=== PATIENT | female | born 1945 | race Caucasian/White ===

== ENCOUNTER 2020-01-04 10:26 | Emergency (ER) | payer MEDICARE, SELFPAY ==
[2020-01-04] VITALS (28 sets, daily range): BP systolic 150–190; BP diastolic 62–77; PULSE 57–74; RESP 11–21; TEMP 36.8; O2SAT 91–100
--- NOTE | ~2020-01-04 | CT_ITS ---
EXAMINATION: CT brain wo con EXAM DATE: 01/04/2020 11:31 INDICATION: Slurred speech, facial droop. TECHNIQUE: Spiral CT of the head was performed without contrast. Axial, coronal and sagittal images were reviewed. The dose-length product (DLP) for this examination was 605.33 mGy-cm. The exposure w as tailored according to patient size, and iterative reconstruction (ASIR) was used as additional dos e reduction technique. Comparison is made to prior examination from 08/11/2015. FINDINGS: There is acute hemorrhage in the left basal ganglia measuring 2 x 4 cm. Some mass effect on the left lateral ventricle. Otherwise no evidence of intraparenchymal brain mass lesion. No evidenc e of acute ischemic infarction. Please note that initial head CT has limited sensitivity for small o r acute infarctions. There is mild periventricular and subcortical hypodensity, nonspecific but proba casey related to small vessel ischemic disease. There is mild prominence of the sulci and ventricles related to cerebral atrophy. There is intracranial carotid arteriosclerosis. There are no extra-ax ial collections. There is no mass effect or midline shift. Patient has had ocular lens surgery. So ft tissue is unremarkable. The visualized sinuses and mastoid air cells are well aerated. IMPRESSION: 1. Sizable left thalamic acute hemorrhage. 2. Chronic age related findings. As per stroke protocol, I called these results to emergency room, discussed with Gifty Leonard MD at 01/04/2020 11:33 TAXICAB DISPATCHER. Reviewed, dictated and finalized at location A. CAB DISPATCHER IMPRESSION: 1. Sizable left thalamic acute hemorrhage. 2. Chronic age related findings. As per stroke protocol, I called these results to emergency room, discussed wit h Gifty Leonard MD at 01/04/2020 11:33 TAXICAB DISPATCHER.
--- NOTE | 2020-01-04 10:35 | ECG_ITS ---
Measurements Intervals [place] Rate: 72 P: 47 MS: 185 QRS: -87 QRSD: 149 T: 48 QT: 439 QTc: 480 Interpretive Statements SINUS RHYTHM POSSIBLE LEFT ATRIAL ENLARGEMENT RIGHT BUNDLE BRANCH BLOCK INFERIOR INFARCT, AGE INDETERMINATE ABNORMAL ECG Electronically Signed On 01-04-2020 15:35:29 EDGE RUNNER by George Moyer D.O.
--- NOTE | 2020-01-04 11:09 | ED.NEUROSD ---
HPI - Neuro Symptoms/Deficit General Chief Complaint: Neuro Symptoms/Deficit Stated Complaint: fall Time Seen by Provider: 01/04/20 10:48 Source: patient and RN notes reviewed Mode of arrival: ambulatory Limitations: no limitations History of Present Illness HPI Narrative: Pt is a 74 y/o female who presents to the ED with c/o neurological deficits. Pt's son states the pt was found on the floor when the pt's kxwnobjc-qh-eio came to drop something off to the pt's house. The pt's gmcuwfwg-ly-[id number] states the pt was at baseline when she came earlier in the morning. However, checking in on the pt the second time was when she noticed the pt was not at baseline. The pt was found on the floor and was experiencing changes in her speech, slurred speech. The pt reports tenderness to her RLE since 2200 last night and SOB, but denies any tongue edema. The pt is currently on the medication Lisinopril. Onset (ago): unknown Timing confirmed by: family member ([id number]; son) Location: speech (slurred speech) History of same: No Quality: constant Relieving factors: none Exacerbating factors: none Context: found down (found on the floor) Associated symptoms: shortness of breath and other (tenderness to her RLE) Related Data Home Medications Medication Instructions Recorded Confirmed alprazolam 0.25 mg tablet 0.25 mg PO BID 10/24/19 10/24/19 amlodipine 10 mg tablet 10 mg PO DAILY 10/24/19 10/24/19 diclofenac potassium 25 mg capsule 25 mg PO QID 10/24/19 10/24/19 docusate sodium 100 mg capsule 100 mg PO DAILY 10/24/19 10/24/19 duloxetine 30 mg capsule,delayed 30 mg PO DAILY 10/24/19 10/24/19 release haloperidol 2 mg tablet 2 mg PO DAILY 10/24/19 10/24/19 lamotrigine 200 mg tablet 200 mg PO DAILY 10/24/19 10/24/19 lisinopril 20 mg tablet 20 mg PO DAILY 10/24/19 10/24/19 trazodone 100 mg tablet 50 mg PO DAILY tablet 10/24/19 10/24/19 alprazolam 01/04/20 asenapine maleate [Saphris] mg SUBLINGUAL 01/04/20 asenapine maleate [Saphris] mg SUBLINGUAL 01/04/20 duloxetine mg PO 01/04/20 escitalopram oxalate mg 01/04/20 gabapentin 01/04/20 lisinopril 01/04/20 pantoprazole PO 01/04/20 trazodone 01/04/20 Allergies Allergy/AdvReac Type Severity Reaction Status Date / Time alendronate sodium Allergy Unknown Unknown Verified 01/04/20 10:40 amantadine Allergy Unknown Unknown Verified 01/04/20 10:40 benztropine Allergy Unknown Unknown Verified 01/04/20 10:40 chlorpromazine Allergy Unknown Unknown Verified 01/04/20 10:40 levofloxacin Allergy Unknown Unknown Verified 01/04/20 10:40 Macrolide Antibiotics Allergy Unknown UNKNOWN Verified 01/04/20 10:40 REACTION mirtazapine Allergy Unknown Unknown Verified 01/04/20 10:40 Quinolones Allergy Unknown Unknown Verified 01/04/20 10:40 quinalones Allergy Unknown Unknown Uncoded 01/04/20 10:40 Review of Systems Review of Systems: All systems reviewed & are unremarkable except as noted in HPI and below ENT: Denies other (tongue swelling) Respiratory: Respiratory: Reports dyspnea Musculoskeletal: Musculoskeletal: Reports other (tenderness to RLE) Neurologic: Reports Abnormal speech present (slurred speech) [facility] Past Medical History Medical History (Updated 01/04/20 @ 14:03 by Gifty Leonard MD) Anxiety Depression GERD (gastroesophageal reflux disease) Hypertension Type 2 diabetes mellitus with hyperglycemia Social History Social History Smoking status: Former smoker Smoking end date: 11/30/15 Alcohol intake: never Gender identity (if verbalized by the patient): Female Comments PCP: Dr. Alcocer Exam Const: General: cooperative, no acute distress and alert Nutritional Appearance: well nourished Orientation/consciousness: patient oriented x3 Limitations: no limitations HENMT: Mouth: Yes lip normal and Yes moist mucous membranes Eyes: Pupils: Equal, round and reactive pupils present EOM: EOMs intact trev
[2020-01-04 11:19] LABS: Glucose Point of Care 139 (65-105)
[2020-01-04 11:24] LABS: Glucose Point of Care 147 (65-105)
[2020-01-04] MEDS: LABETALOL HCL INJ 100 MG/20 ML VIAL 10 MG IV PUSH (11:53)
[2020-01-04 11:58] LABS: Basophils Absolute Auto 0.1 K/mm3 (0.0-0.1); Basophils Percent Auto 0.7 % (0.2-1.2); Eosinophils Absolute Auto 0.1 K/mm3 (0-0.3); Eosinophils Percent Auto 1.4 % (0-4.4); Hematocrit 44.7 % (37.0-47.0); Hemoglobin 14.1 g/dL (12.0-15.0); Immature Granulocyte Absolute 0.03 K/mm3 (0.00-0.031); Immature Granulocyte Percent A 0.4 % (0-0.5); Lymphocytes Absolute Auto 1.29 K/mm3 (0.9-3.2); Mean Corpuscular HGB Conc 31.5 g/dl (32-36); Mean Platelet Volume 10.5 fl (7.4-10.4); Monocytes Absolute Auto 0.3 K/mm3 (0.1-0.6); Monocytes Percent Auto 4.5 % (2.6-8.5); Neutrophils Absolute Auto 5.4 K/mm3 (1.3-6.7); Platelet Count Result 182 k/mm3 (150-375); Red Blood Count 4.86 M/mm3 (4.2-5.4); Red Cell Distribution Width 14.1 % (11.5-14.5); White Blood Count 7.2 K/mm3 (4.5-10.0)
[2020-01-04 12:08] LABS: INR 1.1; Prothrombin Time 13.4 Seconds (11.1-14.7)
[2020-01-04 12:09] LABS: Partial Thromboplastin Time 33.1 SECONDS (22.3-36.8)
[2020-01-04 12:11] LABS: Creatine Kinase 242 U/L (30-135); Phosphorus 3.2 mg/dL (2.5-4.5)
[2020-01-04 12:12] LABS: Alanine Aminotransferase 27 U/L (4-35); Albumin Level 4.3 g/dL (3.5-5.1); Alkaline Phosphatase 344 U/L (38-126); Aspartate Amino Transferase 53 U/L (14-36); Bilirubin,Total 0.6 mg/dL (0.2-1.3); Blood Urea Nitrogen 20 mg/dL (7-17); Calcium 9.8 mg/dL (8.4-10.2); Carbon Dioxide 25 mmol/L (22-30); Chloride 105 mmol/L (98-107); Estimated Glomerular Filt Rate 34; Glucose 152 mg/dL (65-105); Potassium 4.6 mmol/L (3.4-5.0); Sodium 140 mmol/L (137-145)
[2020-01-04 13:34] LABS: Add Urine Microscopic? YES; Appearance Urine Clear (Clear); Bacteria Urine Trace /hpf; Bilirubin Urine Negative (Negative); Blood Urine Negative (Negative); Color Urine Yellow (Yellow); Glucose Urine UA 1+ mg/dL (Negative); Ketones Urine Negative (Negative); Leukocyte Esterase Ur Negative LEU/UL (Negative); Mucus Urine Rare /lpf; Nitrate Urine Negative (Negative); Protein Urine 2+ mg/dL (Negative); RBC Urine 0-2 /hpf (0-2); Urobilinogen Urine Negative mg/dL (<2.0)
--- NOTE | 2020-01-04 13:40 | PC.NURSE ---
[facility] declined transfer [facility] accepted ETA 1430 Trip # [id number]
== END 2020-01-04 14:22 | disposition short-term general hospital (02) ==
PROVIDERS: Emergency Provider Emergency Medicine; PCP Internal Medicine
DX: F41.9 Anxiety disorder, unspecified (principal); F32.9 Major depressive disorder, single episode, unspecified; K21.9 Gastro-esophageal reflux disease without esophagitis; I10 Essential (primary) hypertension; Z87.891 Personal history of nicotine dependence; E11.65 Type 2 diabetes mellitus with hyperglycemia; R94.31 Abnormal electrocardiogram [ECG] [EKG]; M79.604 Pain in right leg
CPT/HCPCS: 36415; 51701; 70450; 80053; 81001; 82550; 82948; 83735; 84100; 85025; 85610; 85730; 93005; 96374; 99285

== ENCOUNTER 2020-01-11 11:02 | IRF | payer MEDICARE, SELFPAY ==
--- NOTE | ~2020-01-11 | XR_ITS ---
EXAMINATION: XR barium swallow modified DATE: 01/13/2020 09:37 INDICATION: Dysphagia. TECHNIQUE: The patient was given barium-containing material of multiple consistencies to swallow by t isrrael speech pathologist while I performed fluoroscopy. Fluoroscopy exposure time was 1.8 minutes. The n umber of fluoroscopy images saved to the PACS was 1. Dose-area product was 1.155 Gy-cm^2. FINDINGS: There was aspiration of thin liquids, which elicited a cough. IMPRESSION: 1. Aspiration of thin liquids. 2. Please refer to the speech therapy report for recommendations. Reviewed, dictated and finalized at location A. PULLER
[2020-01-11 11:09] VITALS: BP 142/47; PULSE 61; RESP 18; TEMP 36.7; O2SAT 95
--- NOTE | 2020-01-11 11:32 | ADMGEN ---
This patient, Nisha Sigala, was admitted to [facility] Room 225-02. Patient/family oriented to hospital policies and general routines including ID bracelet, bed and alarms, visiting hours, pain management, procedures, bathroom and other care routines, personal items, smoking policy, room service/diet, and visiting hours. Valuables list has been completed. Information on how to activate the Rapid Response Team has been discussed. Patient/Family are encouraged to report perceived risks to care and to ask questions if they do not understand what they are told or what they should do.
[2020-01-11 12:14] LABS: Glucose Point of Care 126 (65-105)
[2020-01-11 14:00] VITALS: BP 147/52; PULSE 61; RESP 18; TEMP 36.4; O2SAT 98
[2020-01-11 16:52] LABS: Glucose Point of Care 87 (65-105)
[2020-01-11] MEDS: LORAZEPAM 0.5 MG TABLET PO (17:48)
[2020-01-11] MEDS: GABAPENTIN 300 MG CAPSULE 600 MG PO (17:48)
[2020-01-11 17:59] VITALS: PULSE 61; RESP 18; O2SAT 98
[2020-01-11] MEDS: DOCUSATE SODIUM 100 MG CAPSULE PO (21:43)
[2020-01-11] MEDS: lamoTRIgine 100 MG TABLET PO (21:51)
[2020-01-11] MEDS: lamoTRIgine 25 MG TABLET 50 MG PO (21:52)
[2020-01-11] MEDS: TRAZODONE HCL 50 MG TABLET 100 MG PO (21:55)
[2020-01-11 22:00] VITALS: BP 153/56; PULSE 76; RESP 18; TEMP 36.6; O2SAT 100
[2020-01-11] MEDS: INSULIN GLARGINE (*BKC) 100 UNITS/ML 20 UNITS SUB-Q (22:00)
[2020-01-11 22:34] LABS: Glucose Point of Care 120 (65-105)
[2020-01-12 05:14] LABS: Basophils Absolute Auto 0.1 K/mm3 (0.0-0.1); Basophils Percent Auto 0.7 % (0.2-1.2); Eosinophils Absolute Auto 0.3 K/mm3 (0-0.3); Eosinophils Percent Auto 3.9 % (0-4.4); Hematocrit 38.4 % (37.0-47.0); Hemoglobin 12.3 g/dL (12.0-15.0); Immature Granulocyte Absolute 0.02 K/mm3 (0.00-0.031); Immature Granulocyte Percent A 0.3 % (0-0.5); Lymphocytes Absolute Auto 2.57 K/mm3 (0.9-3.2); Lymphocytes Percent Auto 34.9 % (18.3-44.2); Mean Corpuscular Hemoglobin 28.9 pg (26-34); Mean Corpuscular Volume 90.4 fl (80-100); Mean Platelet Volume 10.5 fl (7.4-10.4); Monocytes Absolute Auto 0.4 K/mm3 (0.1-0.6); Monocytes Percent Auto 5.2 % (2.6-8.5); Neutrophils Absolute Auto 4.1 K/mm3 (1.3-6.7); Platelet Count Result 184 k/mm3 (150-375); Red Blood Count 4.25 M/mm3 (4.2-5.4); Red Cell Distribution Width 14.3 % (11.5-14.5); White Blood Count 7.4 K/mm3 (4.5-10.0)
[2020-01-12 05:26] LABS: Blood Urea Nitrogen 16 mg/dL (7-17); Calcium 9.1 mg/dL (8.4-10.2); Carbon Dioxide 21 mmol/L (22-30); Chloride 104 mmol/L (98-107); Cholesterol 130 mg/dL (0-200); Estimated Glomerular Filt Rate 29; Glucose 95 mg/dL (65-105); HDL Direct 52 mg/dL; Potassium 4.3 mmol/L (3.4-5.0); Sodium 139 mmol/L (137-145); Triglycerides 145 mg/dL (<150)
[2020-01-12 05:38] LABS: LDL Cholesterol Direct 44 mg/dL
[2020-01-12 06:00] VITALS: BP 131/49; PULSE 58; RESP 17; TEMP 37.1; O2SAT 95
[2020-01-12] MEDS: LEVOTHYROXINE SODIUM 125 MCG TABLET PO (06:31)
[2020-01-12 07:14] LABS: Glucose Point of Care 101 (65-105)
[2020-01-12] MEDS: AMLODIPINE BESYLATE 5 MG TABLET 10 MG PO (09:58)
[2020-01-12] MEDS: CHOLECALCIFEROL 1,000 UNIT TABLET 2000 UNITS PO (09:58)
[2020-01-12] MEDS: FERROUS SULFATE 324 MG TABLET PO (09:59)
[2020-01-12] MEDS: DOCUSATE SODIUM 100 MG CAPSULE PO ×2 (09:59→22:05)
[2020-01-12] MEDS: lamoTRIgine 100 MG TABLET PO ×2 (09:59→22:07)
[2020-01-12] MEDS: GABAPENTIN 300 MG CAPSULE 600 MG PO ×2 (09:59→18:41)
[2020-01-12] MEDS: PANTOPRAZOLE 40 MG TABLET PO (10:00)
[2020-01-12] MEDS: lamoTRIgine 25 MG TABLET 50 MG PO ×2 (10:00→22:07)
[2020-01-12] MEDS: lisinopriL 10 MG TABLET PO (10:00)
[2020-01-12] MEDS: LORAZEPAM 0.5 MG TABLET PO ×3 (10:02→18:41)
--- NOTE | 2020-01-12 10:45 | WPDREHABHP ---
H&P: HPI History of Present Illness Chief complaint: L Basal Ganglia [facility] Narrative: Nisha Sigala is a 74 year old female HISTORY OF PRESENT ILLNESS: The patient's primary rehab impairment category is 0 3-brain dysfunction-nontraumatic The etiologic diagnosis is left basal ganglia intraparenchymal hemorrhage I saw this patient [id number] on January 11, 2020 at 10:45 a.m. The patient is a 74-year-old right-handed woman with a past medical history of hypertension, hyperlipidemia, type 2 diabetes mellitus, hypothyroidism and mood disorder who present to [facility] on January 04, 2020 as a direct admission from [facility]. Around 8:45 a.m. on January 04, 2020 the patient's [id number]-bz-chb was talking to her on phone when she noticed the patient had slurring of the speech. Inwgbfdk-qi-[id number] arrived at the patient's house between 930 and 10:00 a.m. which she found her on the floor with slowing of the speech. Patient reported falling and an inability to get up. EMS was called and she was transported to [facility]. Head CT demonstrated a left basal ganglia hemorrhage ( apparently 2 x 4 centimeter close) with mass effect on the left ventricle, mild cerebral edema and brain compression. She was transferred to [facility] for further care. CT a on January 05 demonstrated stable hemorrhage and no vascular abnormality. Neurology was consulted and felt the hemorrhage was secondary to hypertensive emergency. Anticoagulation is being held in the setting of the hemorrhage. Psychiatry was consulted for assistance with the patient's complex medical regimen for her underlying mood disorder. They noted that the patient has never had suicidal ideation or tandem to harm herself. She has had no significant episodes of depression since 2014. In combination with her outpatient psychiatrist new changes are as follows, continued trazodone, hold Sapharis 5 milligram/ 10 milligram, hold alprazolam, he site a prime, duloxetine, and stop Haldol for the duration of the current hospitalization and continue with Ativan in the meantime and down titrate Lamictal 250 milligram twice a day. She has had no psychological changes and is awake and alert oriented x4 hospitalization significant for neuropathy for which her home dose of gabapentin was resumed. Acute pain treated with oral p.r.n. med pain medication, hypertension ( p.r.n. hydralazine and labetalol ), acute kidney injury ( resolving with IV fluid for hydration close), type 2 diabetes mellitus managed with Lantus and Humalog, and hypothyroidism on home dose of Synthroid. Physical examination continues to reveal right lower extremity numbness dysarthria right facial droop decreased gross motor control and decrease safety awareness DP DVT prophylaxis with Lovenox. Therapy was Therapy was initiated at the acute care facility and the patient transferred to us from [facility] on January 10, 2020 FALLS OR SURGERIES: The patient has had no major surgeries in the 100 days prior to admission. They had no falls in the past year. They had no falls with injury in the past year. PAST MEDICAL HISTORY: bipolar disorder, colon polyps, gastroesophageal reflux disease, hypertension, hypothyroidism, is stroke, type 2 diabetes mellitus. PAST SURGICAL HISTORY: and hysterectomy SOCIAL HISTORY: the patient lives independently in a 1 level apartment with level in tree. She was completely independent with ADLs, functional transfers and mobility prior with no assistive device. 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 She does report falls in the past year but no major surgeries FAMILY HISTORY: patient is a relatively at best fair historian and does not recall any family history of all consequence PRIOR LEVEL OF FUNCTION: Eating was INDEPENDENT Oral Care was
[2020-01-12 12:30] LABS: Glucose Point of Care 101 (65-105)
[2020-01-12 13:16] VITALS: BMI 30.4
[2020-01-12 14:00] VITALS: BP 143/45; PULSE 52; RESP 16; TEMP 37.1; O2SAT 99
--- NOTE | 2020-01-12 14:41 | PCSTNOTE ---
Patient reports she was on a thickened diet with minced and moist solids prior to admit. Nursing notified that current diet orders should be updated to reflect a minced and moist diet with mildly thick liquids. Orders for a MBS will be obtained if MD is agreeable.
--- NOTE | 2020-01-12 14:44 | PCNSR ---
On 01/12/20, the student, Dorys Roy, provided care and completed [facility] documentation on this patient. I have reviewed the student's documentation and agree with the findings.
--- NOTE | 2020-01-12 15:46 | PCCCNOTE ---
On 01/12/20, the student, [Bora Santos ], provided care and completed [facility] documentation on this patient. I have reviewed the student's documentation and agree with the findings.
[2020-01-12 17:15] LABS: Glucose Point of Care 116 (65-105)
--- NOTE | 2020-01-12 19:24 | PHAR ---
HOME MEDICATIONS VERIFIED BY PHARMACY: SAPHRIS 5MG SL TABLETS
[2020-01-12 20:46] LABS: Glucose Point of Care 133 (65-105)
[2020-01-12 22:00] VITALS: BP 150/44; PULSE 56; RESP 18; TEMP 36.5; O2SAT 97
[2020-01-12] MEDS: TRAZODONE HCL 50 MG TABLET 100 MG PO (22:00)
[2020-01-12] MEDS: INSULIN GLARGINE (*BKC) 100 UNITS/ML 20 UNITS SUB-Q (22:09)
[2020-01-13] MEDS: LEVOTHYROXINE SODIUM 125 MCG TABLET PO (07:13)
[2020-01-13 07:40] LABS: Glucose Point of Care 108 (65-105)
[2020-01-13 09:50] VITALS: BP 159/48; PULSE 58; RESP 18; TEMP 36.6; O2SAT 100
[2020-01-13] MEDS: CHOLECALCIFEROL 1,000 UNIT TABLET 2000 UNITS PO (09:53)
[2020-01-13] MEDS: AMLODIPINE BESYLATE 5 MG TABLET 10 MG PO (09:53)
[2020-01-13] MEDS: DOCUSATE SODIUM 100 MG CAPSULE PO ×2 (09:54→20:29)
[2020-01-13] MEDS: GABAPENTIN 300 MG CAPSULE 600 MG PO ×2 (09:54→18:01)
[2020-01-13] MEDS: FERROUS SULFATE 324 MG TABLET PO (09:54)
[2020-01-13] MEDS: lamoTRIgine 25 MG TABLET 50 MG PO ×2 (09:56→20:29)
[2020-01-13] MEDS: lamoTRIgine 100 MG TABLET PO ×2 (09:56→20:29)
--- NOTE | 2020-01-13 09:56 | PCSTNOTE ---
Please refer to the Modified Barium Swallow Evaluation in the EMR.
[2020-01-13] MEDS: lisinopriL 10 MG TABLET PO (09:57)
[2020-01-13] MEDS: PANTOPRAZOLE 40 MG TABLET PO (09:57)
[2020-01-13] MEDS: LORAZEPAM 0.5 MG TABLET PO ×3 (09:59→18:09)
--- NOTE | 2020-01-13 11:11 | RPD ---
INDIVIDUALIZED PLAN OF CARE FOR Nisha Sigala Brief Synthesis of Pre-Admission Screen, Post-Admission Evaluation and Therapy Evaluations: The patient presents to rehab with Left basal ganglia intraparenchymal hemorrhage. Comorbidities include hypertensive emergency, bipolar disorder, gastroesophageal reflux disease, hypothyroidism, type 2 diabetes mellitus, acute kidney injury, neuropathy, acute pain, dysarthria, dysphagia, right lower extremity weakness, right facial droop. The patient requires physician services for neurology services, medical oversight, and coordination of care. The patient needs physician monitoring and treatment of hypertension, monitoring for adverse reactions to new medications and medication changes, monitoring for infection, and pain control. The patient requires nursing services for frequent neuro checks, anticoagulation therapy, medication management and education, pressure relief and skin care management, monitoring of labs, diabetes management and education, and fall/safety precautions. Deficits include:ADLs, Balance, Endurance, Mobility, Pain Management, ROM, Safety, Speech, Strength, Swallowing, Transfers Studio Grip/Case Management for: Discharge Planning and Patient/Family Counseling Physical Therapy: 5 days per week for 75 minutes. Treatments may include: Therapeutic Exercise, Gait Training, Neuromuscular Re-education, Transfer Training, Community Reintegration, Bed Mobility, Patient/Family Education, Wheelchair Mobility Group Therapy/Concurrent Therapy Rationales: -Improve attention span during functional activities in a distracted environment. -Enhance problem solving and/or adequate judgment skills during functional activities in a distracted environment. -Promote increased safety awareness in a distracted environment to reduce fall risk with functional tasks, transfers, and ambulation to allow a more safe, self-sufficient return to the home environment. -Improve dynamic balance skills to promote safety and independence with functional activities in a distracted environment for maximum gain. Occupational Therapy: 5 days per week for 75 minutes. Treatments may include: Therapeutic Exercise, Therapeutic Activity, Cognitive Training, Self-Care Transfer Training, Community Reintegration, Home Management, Patient/Family Education, Wheelchair Mobility Training, Energy Conservation Training Group Therapy/Concurrent Therapy Rationales: -Allow therapist to observe and teach generalization and carry-over of skills learned in individual therapy. -Enhance problem solving and sequencing skills during therapeutic activities in a distracted environment. -Promote increased safety awareness in a realistic setting to reduce fall risk with functional tasks due to visual and verbal distractions. -Increase functional level with ADLs, ADL transfers and use of adaptive equipment through therapeutic activities with others while promoting safety to allow a more safe, self-sufficient return home. Speech Therapy: 5 days per week for 30 minutes. Treatments may include: Dysphasia Therapy, Speech/Language/Communication Therapy, Cognitive Training, Patient/Family Education Group Therapy/Concurrent Therapy - Rationale: -Allow therapist to observe and teach generalization and carry-over of skills learned in individual therapy. -Improve comprehension skills with complex or abstract ideas through discussion in a realistic setting. -Enhance problem solving skills with complex issues during activities in a distracted environment. -Promote increased memory skills and concentration in a distracted environment for a safe transition home. -Improve attention and focus with language/communication skills in a realistic and supportive therapeutic setting. -Allow for practice of expression of basic needs and ideas through functional activities with others. Medical Prognosis: Good Anticipated Length of Stay: 12 days Rehab Goals: Eating Goal: 06-Indepe
[2020-01-13 12:44] LABS: Glucose Point of Care 128 (65-105)
[2020-01-13 14:00] VITALS: BP 167/48; PULSE 75; RESP 19; TEMP 37.4; O2SAT 92
--- NOTE | 2020-01-13 15:11 | WPDNEURORHBP ---
Subjective Date/time seen: 01/13/20 15:11 Interval history: the 74-year-old woman who has a longstanding mood disorder under the care of a psychiatrist is here because of the left-sided basal ganglia hemorrhage with mild speech defect and generalized weakness more so prominent on the right side than the left She does have some dyskinetic movement from on underlying mood disorder plus the psychotropic effects of the medication she has been on for a long time which is stable she denies any headache chest pain shortness of medical nausea vomiting and in fact does not have much of complaints Review of Systems Constitutional: Constitutional: Reports no additional constitutional complaints Eyes: Eyes: Reports no additional eye complaints ENT: Reports system reviewed and no additional complaints, except as documented Cardiovascular: Cardiovascular: Reports no additional cardiovascular complaints Respiratory: Respiratory: Reports no additional respiratory complaints Gastrointestinal: Gastrointestinal: Reports no additional gastrointestinal complaints Genitourinary: Genitourinary: Reports no additional female genitourinary complaints Musculoskeletal: Musculoskeletal: Reports no additional musculoskeletal complaints Integumentary/Breasts: Skin/Breast: Reports system reviewed and no additional complaints, except as docu Neurologic: Reports system reviewed and no additional complaints, except as documented Psychiatric: Psychiatric: Reports no additional psychiatric complaints Functional Status Ambulation Ability Ability to Ambulate 10 Feet: Standby Assistance Ability to Ambulate 50 Feet With 2 Turns: Standby Assistance Ability to Ambulate 150 Feet: Standby Assistance Ambulation Assistive Devices: None Transfers Ability Ability to Transfer In/Out of Chair: Independent Exam Const: General: comfortable and no acute distress HENMT: General nose exam: Normal nares present Mouth: Yes moist mucous membranes Other: orobuccal dyskinetic movements are stable Eyes: General: appearance normal, both eyes and all related structures Neck: Neck: supple and no JVD Resp: Effort & Inspection: normal respiratory effort Auscultation: clear to auscultation bilaterally Cardio: Rate: regular rate Rhythm: regular rhythm GI: GI Palp: Yes Soft to palpation Auscultation: normal bowel sounds : External Female Exam: normal external appearance Skin: General skin exam: normal color and no rashes or lesions noted Neuro: Other: subtle aphasic defect along with the generalized weakness right more so than the left engage in therapy quite well and moving forward overall neurological fracture is improving and patient is satisfied Extrem: General: normal to inspection Objective Data Vital Signs Vital Signs: Vital Signs - 24 hr 01/12/20 22:00 01/13/20 09:50 Temperature 36.5 C 36.6 C Pulse Rate 56 L 58 L Respiratory Rate 18 18 Blood Pressure 150/44 H 159/48 H Pulse Oximetry 97 100 Intake/Output Intake/Output: Intake & Output 01/10/20 01/11/20 01/12/20 01/13/20 23:59 23:59 23:59 23:59 Intake Total 540 1320 120 Balance 540 1320 120 Meds/Results Medications: Active Medications Generic Name Dose Route Start Last Admin Trade Name Freq PRN Reason Stop Dose Admin Acetaminophen 650 mg 01/11/20 12:24 Tylenol Tablet PO Q4H PRN Pain (Scale Score 1-3) Amlodipine Besylate 10 mg 01/12/20 09:00 01/13/20 09:53 Norvasc PO 10 mg DAILY PACO Administration Bisacodyl 10 mg 01/11/20 12:24 Dulcolax Suppository RECTAL DAILY PRN Constipation Dextrose 12.5 gm 01/11/20 12:26 Dextrose 50% Syringe IV PUSH PRN PRN Hypoglycemia Protocol Docusate Sodium 100 mg 01/11/20 21:00 01/13/20 09:54 Colace Capsule PO 100 mg Q12HR PACO Administration Ferrous Sulfate 324 mg 01/12/20 09:00 01/13/20 09:54 Ferrous Sulfate PO 324 mg DAILY PACO Administration Gabapentin 6
[2020-01-13 17:47] LABS: Glucose Point of Care 125 (65-105)
[2020-01-13] MEDS: TRAZODONE HCL 50 MG TABLET 100 MG PO (20:29)
[2020-01-13 21:51] LABS: Glucose Point of Care 152 (65-105)
[2020-01-13] MEDS: INSULIN GLARGINE (*BKC) 100 UNITS/ML 20 UNITS SUB-Q (21:54)
[2020-01-13 22:00] VITALS: BP 148/56; PULSE 64; RESP 18; TEMP 36.5; O2SAT 100
[2020-01-14] MEDS: LEVOTHYROXINE SODIUM 125 MCG TABLET PO (05:52)
[2020-01-14 06:00] VITALS: BP 136/70; PULSE 62; RESP 20; TEMP 36.3; O2SAT 100
[2020-01-14 07:05] LABS: Glucose Point of Care 117 (65-105)
[2020-01-14] MEDS: lamoTRIgine 100 MG TABLET PO ×2 (10:06→20:52)
[2020-01-14] MEDS: AMLODIPINE BESYLATE 5 MG TABLET 10 MG PO (10:06)
[2020-01-14] MEDS: lamoTRIgine 25 MG TABLET 50 MG PO ×2 (10:06→20:52)
[2020-01-14] MEDS: GABAPENTIN 300 MG CAPSULE 600 MG PO ×2 (10:07→16:40)
[2020-01-14] MEDS: CHOLECALCIFEROL 1,000 UNIT TABLET 2000 UNITS PO (10:07)
[2020-01-14] MEDS: LORAZEPAM 0.5 MG TABLET PO ×3 (10:07→16:40)
[2020-01-14] MEDS: DOCUSATE SODIUM 100 MG CAPSULE PO ×2 (10:07→20:52)
[2020-01-14] MEDS: lisinopriL 10 MG TABLET PO (10:07)
[2020-01-14] MEDS: PANTOPRAZOLE 40 MG TABLET PO (10:10)
[2020-01-14] MEDS: FERROUS SULFATE 324 MG TABLET PO (10:10)
[2020-01-14 12:20] LABS: Glucose Point of Care 96 (65-105)
[2020-01-14 14:00] VITALS: BP 153/55; PULSE 68; RESP 18; TEMP 36.7; O2SAT 100
[2020-01-14 17:21] LABS: Glucose Point of Care 115 (65-105)
[2020-01-14] MEDS: TRAZODONE HCL 50 MG TABLET 100 MG PO (20:52)
[2020-01-14 21:26] LABS: Glucose Point of Care 149 (65-105)
[2020-01-14 22:00] VITALS: BP 151/42; PULSE 65; RESP 18; TEMP 36.3; O2SAT 97
[2020-01-14] MEDS: INSULIN GLARGINE (*BKC) 100 UNITS/ML 20 UNITS SUB-Q (22:11)
[2020-01-15 06:00] VITALS: BP 142/56; PULSE 70; RESP 18; TEMP 36.4; O2SAT 99
[2020-01-15] MEDS: LEVOTHYROXINE SODIUM 125 MCG TABLET PO (06:19)
[2020-01-15 06:40] LABS: Glucose Point of Care 119 (65-105)
[2020-01-15 08:00] VITALS: PULSE 70; RESP 18; O2SAT 99
[2020-01-15] MEDS: lamoTRIgine 25 MG TABLET 50 MG PO ×2 (10:06→21:02)
[2020-01-15] MEDS: AMLODIPINE BESYLATE 5 MG TABLET 10 MG PO (10:06)
[2020-01-15] MEDS: GABAPENTIN 300 MG CAPSULE 600 MG PO ×2 (10:06→17:51)
[2020-01-15] MEDS: PANTOPRAZOLE 40 MG TABLET PO (10:07)
[2020-01-15] MEDS: CHOLECALCIFEROL 1,000 UNIT TABLET 2000 UNITS PO (10:07)
[2020-01-15] MEDS: DOCUSATE SODIUM 100 MG CAPSULE PO ×2 (10:07→22:46)
[2020-01-15] MEDS: lisinopriL 10 MG TABLET PO (10:07)
[2020-01-15] MEDS: FERROUS SULFATE 324 MG TABLET PO (10:08)
[2020-01-15] MEDS: lamoTRIgine 100 MG TABLET PO ×2 (10:08→21:03)
[2020-01-15] MEDS: LORAZEPAM 0.5 MG TABLET PO ×3 (10:14→17:51)
[2020-01-15 11:52] LABS: Glucose Point of Care 105 (65-105)
--- NOTE | 2020-01-15 12:00 | WPDNEURORHBP ---
Subjective Date/time seen: January 14, 2020 at 12 noon Interval history: this 74-year-old woman with lifelong history of bipolar disorder is admitted to our acute rehab after suffering from left sided basal ganglia hemorrhage with subtle is speech defect and right-sided hemiparesis Patient is doing fairly well denies any headache nausea vomiting chest pain shortness of breath or any more neurological symptoms Her underlying dyskinetic movements related to long-term psychotropic medication is stable without any worsening Review of Systems Constitutional: Constitutional: Reports no additional constitutional complaints Eyes: Eyes: Reports no additional eye complaints ENT: Reports system reviewed and no additional complaints, except as documented Cardiovascular: Cardiovascular: Reports no additional cardiovascular complaints Respiratory: Respiratory: Reports no additional respiratory complaints Gastrointestinal: Gastrointestinal: Reports no additional gastrointestinal complaints Genitourinary: Genitourinary: Reports no additional female genitourinary complaints Musculoskeletal: Musculoskeletal: Reports no additional musculoskeletal complaints Integumentary/Breasts: Skin/Breast: Reports system reviewed and no additional complaints, except as docu Neurologic: Reports system reviewed and no additional complaints, except as documented Psychiatric: Psychiatric: Reports no additional psychiatric complaints Functional Status Ambulation Ability Ability to Ambulate 10 Feet: Independent Ability to Ambulate 50 Feet With 2 Turns: Independent Ability to Ambulate 150 Feet: Independent Ambulation Assistive Devices: None Transfers Ability Ability to Transfer In/Out of Chair: Independent Exam Const: General: comfortable and no acute distress HENMT: General nose exam: Normal nares present Mouth: Yes moist mucous membranes Eyes: General: appearance normal, both eyes and all related structures Neck: Neck: supple and no JVD Resp: Effort & Inspection: normal respiratory effort Auscultation: clear to auscultation bilaterally Cardio: Rate: regular rate Rhythm: regular rhythm GI: GI Palp: Yes Soft to palpation Auscultation: normal bowel sounds Skin: General skin exam: normal color and no rashes or lesions noted Neuro: Other: patient is awake and alert well oriented time place and person has subtle is speech defect but able to communicate quite well and happy with the care she is receiving her generalized weakness particularly in reference to the right side is improving and she is getting close to our goals and her goals Extrem: General: normal to inspection Objective Data Vital Signs Vital Signs: Vital Signs - 24 hr 01/14/20 14:00 01/14/20 22:00 01/15/20 06:00 Temperature 36.7 C 36.3 C L 36.4 C Pulse Rate 68 65 70 Respiratory Rate 18 18 18 Blood Pressure 153/55 H 151/42 H 142/56 H Pulse Oximetry 100 97 99 Intake/Output Intake/Output: Intake & Output 01/12/20 01/13/20 01/14/20 01/15/20 23:59 23:59 23:59 23:59 Intake Total 1320 120 720 120 Balance 1320 120 720 120 Meds/Results Medications: Active Medications Generic Name Dose Route Start Last Admin Trade Name Freq PRN Reason Stop Dose Admin Acetaminophen 650 mg 01/11/20 12:24 Tylenol Tablet PO Q4H PRN Pain (Scale Score 1-3) Amlodipine Besylate 10 mg 01/12/20 09:00 01/15/20 10:06 Norvasc PO 10 mg DAILY PACO Administration Bisacodyl 10 mg 01/11/20 12:24 Dulcolax Suppository RECTAL DAILY PRN Constipation Dextrose 12.5 gm 01/11/20 12:26 Dextrose 50% Syringe IV PUSH PRN PRN Hypoglycemia Protocol Docusate Sodium 100 mg 01/11/20 21:00 01/15/20 10:07 Colace Capsule PO 100 mg Q12HR PACO Administration Ferrous Sulfate 324 mg 01/12/20 09:00 01/15/20 10:08 Ferrous Sulfate PO 324 mg DAILY PACO Administration Gabapentin 600 mg 01/11/20 17:00 01/15/20 10:06 Neurontin P
[2020-01-15 14:00] VITALS: BP 145/44; PULSE 70; RESP 18; TEMP 37.1; O2SAT 96
--- NOTE | 2020-01-15 14:37 | WPDNEURORHBP ---
Subjective Date/time seen: 01/15/20 14:37 Interval history: this 74-year-old woman is in the acute rehab after sustaining left-sided basal ganglia hemorrhage associated with mild speech defect and right-sided hemiparesis she is improving quite well her bipolar disorder and overall picture is improving and she does not have any new specific complaints Review of Systems Constitutional: Constitutional: Reports no additional constitutional complaints Eyes: Eyes: Reports no additional eye complaints ENT: Reports system reviewed and no additional complaints, except as documented Cardiovascular: Cardiovascular: Reports no additional cardiovascular complaints Respiratory: Respiratory: Reports no additional respiratory complaints Gastrointestinal: Gastrointestinal: Reports no additional gastrointestinal complaints Genitourinary: Genitourinary: Reports no additional female genitourinary complaints Musculoskeletal: Musculoskeletal: Reports no additional musculoskeletal complaints Integumentary/Breasts: Skin/Breast: Reports system reviewed and no additional complaints, except as docu Neurologic: Reports system reviewed and no additional complaints, except as documented Psychiatric: Psychiatric: Reports no additional psychiatric complaints Functional Status Ambulation Ability Ability to Ambulate 10 Feet: Independent Ability to Ambulate 50 Feet With 2 Turns: Independent Ability to Ambulate 150 Feet: Independent Ambulation Assistive Devices: None Transfers Ability Ability to Transfer In/Out of Chair: Independent Exam Const: General: comfortable and no acute distress HENMT: General nose exam: Normal nares present Mouth: Yes moist mucous membranes Eyes: General: appearance normal, both eyes and all related structures Neck: Neck: supple and no JVD Resp: Effort & Inspection: normal respiratory effort Auscultation: clear to auscultation bilaterally Cardio: Rate: regular rate Rhythm: regular rhythm GI: GI Palp: Yes Soft to palpation Auscultation: normal bowel sounds Skin: General skin exam: normal color and no rashes or lesions noted Neuro: Other: patient is awake and alert well oriented in time place and person follows commands quite well she is neither psychotic or delusional her speech and language functions and the right-sided hemiparesis is improving Extrem: General: normal to inspection Objective Data Vital Signs Vital Signs: Vital Signs - 24 hr 01/14/20 22:00 01/15/20 06:00 Temperature 36.3 C L 36.4 C Pulse Rate 65 70 Respiratory Rate 18 18 Blood Pressure 151/42 H 142/56 H Pulse Oximetry 97 99 Intake/Output Intake/Output: Intake & Output 01/12/20 01/13/20 01/14/20/16/20 23:59 23:59 23:59 23:59 Intake Total 1320 120 720 360 Balance 1320 120 720 360 Meds/Results Medications: Active Medications Generic Name Dose Route Start Last Admin Trade Name Freq PRN Reason Stop Dose Admin Acetaminophen 650 mg 01/11/20 12:24 Tylenol Tablet PO Q4H PRN Pain (Scale Score 1-3) Amlodipine Besylate 10 mg 01/12/20 09:00 01/15/20 10:06 Norvasc PO 10 mg DAILY PACO Administration Bisacodyl 10 mg 01/11/20 12:24 Dulcolax Suppository RECTAL DAILY PRN Constipation Dextrose 12.5 gm 01/11/20 12:26 Dextrose 50% Syringe IV PUSH PRN PRN Hypoglycemia Protocol Docusate Sodium 100 mg 01/11/20 21:00 01/15/20 10:07 Colace Capsule PO 100 mg Q12HR PACO Administration Ferrous Sulfate 324 mg 01/12/20 09:00 01/15/20 10:08 Ferrous Sulfate PO 324 mg DAILY PACO Administration Gabapentin 600 mg 01/11/20 17:00 01/15/20 10:06 Neurontin PO 600 mg BID PACO Administration Glucagon 1 mg 01/11/20 12:26 Glucagon For Inj IM PRN PRN Hypoglycemia Protocol Glucose 15 gm 01/11/20 12:26 Glutose 15 PO PRN PRN Hypoglycemia Protocol Dextrose 1,000 mls @ 100 mls/hr 01/11/20 12:26 Dextrose 5%
[2020-01-15 17:34] LABS: Glucose Point of Care 98 (65-105)
[2020-01-15] MEDS: TRAZODONE HCL 50 MG TABLET 100 MG PO (21:03)
[2020-01-15] MEDS: INSULIN GLARGINE (*BKC) 100 UNITS/ML 20 UNITS SUB-Q (21:04)
[2020-01-15 21:18] LABS: Glucose Point of Care 130 (65-105)
[2020-01-15 22:00] VITALS: BP 180/62; PULSE 72; RESP 19; TEMP 36.9; O2SAT 100
[2020-01-16] MEDS: ACETAMINOPHEN 325 MG TABLET 650 MG PO (02:00)
[2020-01-16 06:00] VITALS: BP 153/60; PULSE 64; RESP 18; TEMP 36.8; O2SAT 97
[2020-01-16 06:21] LABS: Glucose Point of Care 96 (65-105)
[2020-01-16] MEDS: CHOLECALCIFEROL 1,000 UNIT TABLET 2000 UNITS PO (08:45)
[2020-01-16] MEDS: GABAPENTIN 300 MG CAPSULE 600 MG PO ×2 (08:46→17:12)
[2020-01-16] MEDS: AMLODIPINE BESYLATE 5 MG TABLET 10 MG PO (08:46)
[2020-01-16] MEDS: DOCUSATE SODIUM 100 MG CAPSULE PO ×2 (08:46→20:19)
[2020-01-16] MEDS: FERROUS SULFATE 324 MG TABLET PO (08:46)
[2020-01-16] MEDS: lamoTRIgine 25 MG TABLET 50 MG PO ×2 (08:47→20:19)
[2020-01-16] MEDS: lamoTRIgine 100 MG TABLET PO ×2 (08:47→20:19)
[2020-01-16] MEDS: lisinopriL 10 MG TABLET PO (08:48)
[2020-01-16] MEDS: PANTOPRAZOLE 40 MG TABLET PO (08:48)
[2020-01-16] MEDS: LORAZEPAM 0.5 MG TABLET PO ×3 (08:50→17:12)
[2020-01-16] MEDS: LEVOTHYROXINE SODIUM 125 MCG TABLET PO (10:00)
[2020-01-16 14:00] VITALS: BP 167/47; PULSE 67; RESP 18; TEMP 36.6; O2SAT 99
[2020-01-16] MEDS: TRAZODONE HCL 50 MG TABLET 100 MG PO (20:19)
[2020-01-16 20:45] LABS: Glucose Point of Care 153 (65-105)
[2020-01-16] MEDS: INSULIN GLARGINE (*BKC) 100 UNITS/ML 20 UNITS SUB-Q (21:50)
[2020-01-16 22:00] VITALS: BP 170/51; PULSE 69; RESP 18; TEMP 36.4; O2SAT 98
[2020-01-17 06:00] VITALS: BP 162/64; PULSE 74; RESP 18; TEMP 36.4; O2SAT 99
[2020-01-17] MEDS: LEVOTHYROXINE SODIUM 125 MCG TABLET PO (06:36)
[2020-01-17 08:00] VITALS: PULSE 74; RESP 18; O2SAT 99
[2020-01-17] MEDS: LORAZEPAM 0.5 MG TABLET PO ×3 (09:47→17:42)
[2020-01-17] MEDS: lamoTRIgine 25 MG TABLET 50 MG PO ×2 (09:47→21:58)
[2020-01-17] MEDS: lamoTRIgine 100 MG TABLET PO ×2 (09:48→21:58)
[2020-01-17] MEDS: PANTOPRAZOLE 40 MG TABLET PO (09:49)
[2020-01-17] MEDS: CHOLECALCIFEROL 1,000 UNIT TABLET 2000 UNITS PO (09:49)
[2020-01-17] MEDS: GABAPENTIN 300 MG CAPSULE 600 MG PO ×2 (09:49→17:42)
[2020-01-17] MEDS: FERROUS SULFATE 324 MG TABLET PO (09:50)
[2020-01-17] MEDS: DOCUSATE SODIUM 100 MG CAPSULE PO (09:50)
[2020-01-17] MEDS: lisinopriL 10 MG TABLET PO (09:50)
[2020-01-17] MEDS: AMLODIPINE BESYLATE 5 MG TABLET 10 MG PO (09:50)
[2020-01-17 14:00] VITALS: BP 154/57; PULSE 66; RESP 18; TEMP 36.3; O2SAT 98
--- NOTE | 2020-01-17 14:26 | WPDNEURORHBP ---
Subjective Date/time seen: 01/17/20 14:26 Interval history: this 74-year-old woman is on the rehab floor after suffering from left-sided basal ganglia hemorrhage with right-sided weakness and speech defect she is significantly improving and doing remarkably well in the rehab she is neither psychotic or delusional she is following all commands quite well denies any headache chest pain shortness of breath nausea vomiting double vision blurred vision or lateralizing paresthesias Review of Systems Constitutional: Constitutional: Reports no additional constitutional complaints Eyes: Eyes: Reports no additional eye complaints ENT: Reports system reviewed and no additional complaints, except as documented Cardiovascular: Cardiovascular: Reports no additional cardiovascular complaints Respiratory: Respiratory: Reports no additional respiratory complaints Gastrointestinal: Gastrointestinal: Reports no additional gastrointestinal complaints Genitourinary: Genitourinary: Reports no additional female genitourinary complaints Musculoskeletal: Musculoskeletal: Reports no additional musculoskeletal complaints Integumentary/Breasts: Skin/Breast: Reports system reviewed and no additional complaints, except as docu Neurologic: Reports system reviewed and no additional complaints, except as documented Functional Status Ambulation Ability Ability to Ambulate 10 Feet: Independent Ability to Ambulate 50 Feet With 2 Turns: Independent Ability to Ambulate 150 Feet: Independent Ambulation Assistive Devices: None Transfers Ability Ability to Transfer In/Out of Chair: Independent Exam Const: General: comfortable and no acute distress HENMT: General nose exam: Normal nares present Mouth: Yes moist mucous membranes Eyes: General: appearance normal, both eyes and all related structures Neck: Neck: supple and no JVD Resp: Effort & Inspection: normal respiratory effort Auscultation: clear to auscultation bilaterally Cardio: Rate: regular rate Rhythm: regular rhythm GI: GI Palp: Yes Soft to palpation Auscultation: normal bowel sounds Skin: General skin exam: normal color and no rashes or lesions noted Neuro: Other: the mental status is pretty close to normal speech and language functions have gotten significantly better likewise right-sided weakness is much better she has improved to a point that we are planning to discharge her tomorrow the son was present for the team conference Objective Data Vital Signs Vital Signs: Vital Signs - 24 hr 01/16/20 22:00 01/17/20 06:00 Temperature 36.4 C 36.4 C Pulse Rate 69 74 Respiratory Rate 18 18 Blood Pressure 170/51 H 162/64 H Pulse Oximetry 98 99 Intake/Output Intake/Output: Intake & Output 01/14/20 01/15/20 01/16/20 01/17/20 23:59 23:59 23:59 23:59 Intake Total 720 600 560 480 Balance 720 600 560 480 Meds/Results Medications: Active Medications Generic Name Dose Route Start Last Admin Trade Name Freq PRN Reason Stop Dose Admin Acetaminophen 650 mg 01/11/20 12:24 01/16/20 02:00 Tylenol Tablet PO 650 mg Q4H PRN Administration Pain (Scale Score 1-3) Amlodipine Besylate 10 mg 01/12/20 09:00 01/17/20 09:50 Norvasc PO 10 mg DAILY PACO Administration Bisacodyl 10 mg 01/11/20 12:24 Dulcolax Suppository RECTAL DAILY PRN Constipation Dextrose 12.5 gm 01/11/20 12:26 Dextrose 50% Syringe IV PUSH PRN PRN Hypoglycemia Protocol Docusate Sodium 100 mg 01/11/20 21:00 01/17/20 09:50 Colace Capsule PO 100 mg Q12HR PACO Administration Ferrous Sulfate 324 mg 01/12/20 09:00 01/17/20 09:50 Ferrous Sulfate PO 324 mg DAILY PACO Administration Gabapentin 600 mg 01/11/20 17:00 01/17/20 09:49 Neurontin PO 600 mg BID PACO Administration Glucagon 1 mg 01/11/20 12:26 Glucagon For Inj IM PRN PRN Hypoglycemia Protocol Glucose 15 gm 01/11/20 12:26 Glutose 15 PO P
--- NOTE | 2020-01-17 15:22 | PCCCNOTE ---
On 01/17/20, the student, [Bora Santos ], provided care and completed [facility] documentation on this patient. I have reviewed the student's documentation and agree with the findings.
[2020-01-17 19:07] VITALS: PULSE 66; RESP 18; O2SAT 98
[2020-01-17 21:36] LABS: Glucose Point of Care 146 (65-105)
[2020-01-17] MEDS: TRAZODONE HCL 50 MG TABLET 100 MG PO (21:57)
[2020-01-17 22:00] VITALS: BP 145/52; PULSE 62; RESP 18; TEMP 36.3; O2SAT 97
[2020-01-17] MEDS: INSULIN GLARGINE (*BKC) 100 UNITS/ML 20 UNITS SUB-Q (22:02)
[2020-01-18 06:00] VITALS: BP 146/70; PULSE 70; RESP 20; TEMP 36.6; O2SAT 99
[2020-01-18 07:27] LABS: Glucose Point of Care 94 (65-105)
[2020-01-18] MEDS: CHOLECALCIFEROL 1,000 UNIT TABLET 2000 UNITS PO (09:28)
[2020-01-18] MEDS: GABAPENTIN 300 MG CAPSULE 600 MG PO (09:28)
[2020-01-18] MEDS: FERROUS SULFATE 324 MG TABLET PO (09:28)
[2020-01-18] MEDS: LEVOTHYROXINE SODIUM 125 MCG TABLET PO (09:28)
[2020-01-18] MEDS: AMLODIPINE BESYLATE 5 MG TABLET 10 MG PO (09:28)
[2020-01-18] MEDS: LORAZEPAM 0.5 MG TABLET PO ×2 (09:29→13:20)
[2020-01-18] MEDS: PANTOPRAZOLE 40 MG TABLET PO (09:29)
[2020-01-18] MEDS: lisinopriL 10 MG TABLET PO (09:29)
[2020-01-18] MEDS: lamoTRIgine 100 MG TABLET PO (09:30)
[2020-01-18] MEDS: lamoTRIgine 25 MG TABLET 50 MG PO (09:32)
[2020-01-18 14:00] VITALS: BP 170/55; PULSE 77; RESP 16; TEMP 37.2; O2SAT 95
--- NOTE | 2020-01-24 00:42 | DS_ITS ---
DATE OF DISCHARGE: 01/18/2020 DISCHARGE ACUTE REHAB DIAGNOSIS: Primary rehab impairment category of 0-3, brain dysfunction nontraumatic with etiological diagnosis of left basal ganglia intraparenchymal hemorrhage. DISCHARGE ACTIVE COMORBID CONDITIONS: 1. Bipolar disorder. 2. Gastroesophageal reflux disease. 3. Hypertension. 4. Hypothyroidism. 5. Diabetes mellitus. REASON FOR ADMISSION: A 74-year-old right-handed lady presented to [facility] on 01/04/2020, as a direct admission from [facility]. On around 8:45 a.m. on 01/04/2020, the patient's daughter in-law was talking to her on phone when she was noted to have slurred speech. When she arrived at the patient's house between 9:30 a.m. and 10 a.m., she found her on the floor with slurred speech. The patient reported falling and inability to get up. EMS was called to the scene. She was transferred to [facility]. Head CT scan demonstrated left basal ganglia hemorrhage 2 cm x 4 cm with mass effect on the left ventricle and a mild cerebral edema with brain compression. She was transferred to [facility] for further care. CT on 01/05 demonstrated stable hemorrhage, no vascular abnormality. Neurology team was consulted. She was treated for the hypertensive emergency. Anticoagulation was held in the setting of the hemorrhage. Psychiatry was consulted for assistance with the patient's complex medical regimen for underlying mood disorder. She has never had suicidal ideation to herself or harm herself, but she had no significant episodes of depression also since 2014. She was continued on trazodone, Saphris 5 mg and 10 mg were held. Alprazolam was also held. She was started on duloxetine. Haldol was stopped and she was titrated on Lamictal twice a day to 50 mg each. She was oriented x4 by the time of discharge with significant neuropathy for which gabapentin was resumed. She received hydralazine for hypertension. Acute kidney injury resolved with IV fluids. Type 2 diabetes, managed with Lantus and Humalog. Hypothyroidism was treated with Synthroid. She continued to have the right lower extremity numbness and dysarthria, right facial droop, and was transferred to the rehab for the further care. LEVEL OF FUNCTION AT THE TIME OF ADMISSION: She required setup for eating, oral hygiene, supervision for toileting and bathing, partial assistance for upper body dressing, supervision for lower body dressing, footwear. She was independent rolling in bed, sit to lying, lying to sitting, setup for the sit to stand, supervision for chair transfer, toilet transfer. She was independent car transfer, required supervision for 10 feet walking, 50 feet walking with 2 turns, 150 feet walking, 10 feet on uneven surface. She was independent for curb or step, 4 steps, 12 steps, picking up object. ANTICIPATED REHABILITATION GOALS: Were to make her independent in all the modalities. LEVEL OF FUNCTION AT THE TIME OF DISCHARGE: She became independent in all the modalities. HOSPITAL COURSE: During the hospitalization, she remained actively involved in the physical therapy and occupational therapy. No other consultants were involved. At the time of discharge, her general physical exam was stable. Neurological examination was stable. She was ambulating 10 feet independently, 50 feet with 2 turns independently, 150 feet independently, and in and out of chair transfer was independent and the vital signs were stable. DISCHARGE MEDICATIONS: Included: 1. Tylenol 650 mg q.4 hours p.r.n. 2. Amlodipine 10 mg daily. 3. Bisacodyl rectal suppository 10 mg daily. 4. Cholecalciferol 2000 units daily. 5. Docusate sodium 100 mg q.12. 6. Ferrous sulfate 325 mg daily. 7. Gabapentin 600 twice a day. 8. Lamotrigine 150 twice a day. 9. Lantus 20 units chu
== END 2020-01-18 16:02 | disposition home health service (06) | DRG 57 ==
PROVIDERS: Admitting Provider Psychiatry & Neurology Neurology; PCP Internal Medicine; Visit Provider Psychiatry & Neurology Neurology
DX: I69.251 Hemiplegia and hemiparesis following other nontraumatic intracranial hemorrhage affecting right dominant side (principal); I69.291 Dysphagia following other nontraumatic intracranial hemorrhage; I69.222 Dysarthria following other nontraumatic intracranial hemorrhage; I69.292 Facial weakness following other nontraumatic intracranial hemorrhage; E78.5 Hyperlipidemia, unspecified; E11.42 Type 2 diabetes mellitus with diabetic polyneuropathy; E03.9 Hypothyroidism, unspecified; F31.9 Bipolar disorder, unspecified; I10 Essential (primary) hypertension; K21.9 Gastro-esophageal reflux disease without esophagitis; Z87.891 Personal history of nicotine dependence; Z79.4 Long term (current) use of insulin
CPT/HCPCS: 36415; 80048; 80061; 83036; 85025; 87081; 92523; 92526; 92611; 97110; 97112; 97116; 97161; 97165; 97530; 97535; A9270; J1815

== ENCOUNTER 2020-01-19 14:04 | Emergency (ER) | payer MEDICARE, SELFPAY ==
--- NOTE | ~2020-01-19 | CT_ITS ---
EXAMINATION: CT brain wo con DATE: 01/19/2020 14:11 INDICATION: Stroke. Slurred speech. TECHNIQUE: Computed tomography (CT) of the head was performed without intravenous contrast. The mA wa s adjusted according to patient size. Iterative reconstruction technique was employed. The dose-lengt h product was 605.33 mGy-cm. COMPARISON: Head CT 01/04/2020 FINDINGS: There is hyperdense hematoma in the left basal ganglia with interval decrease in size and a ttenuation from 01/04/2020. There is surrounding low-attenuation vasogenic edema and soft tissue swelli ng. There is no acute ischemic infarct or abnormal mass lesion. There is mass effect on left lateral ventricle. No midline shift. There are likely changes of ocular lens replacement surgeries. There is mild mucosal thickening in the paranasal sinuses. The mastoid air cells are normal. IMPRESSION: 1. Subacute hematoma in the left basal ganglia with interval improvement. Reviewed, dictated and finalized at location A. NSED ARCHITECT
--- NOTE | ~2020-01-19 | XR_ITS ---
EXAMINATION: XR chest 1V portable EXAM DATE: 01/19/2020 14:42 INDICATION: Slurred speech. History of stroke. TECHNIQUE: Portable AP frontal chest x-ray was obtained. Comparison is made to prior examination from 09/27/2017. FINDINGS: The lungs are clear. There are no pleural effusions. The cardiac silhouette is enlarged. There is no pneumothorax suspected. The bones and soft tissues are unremarkable. IMPRESSION: Cardiomegaly. Reviewed, dictated and finalized at location A. ULTING IT ARCHITECT IMPRESSION: Cardiomegaly.
--- NOTE | 2020-01-19 14:06 | ECG_ITS ---
Measurements Intervals [place] Rate: 61 P: 43 NC: 197 QRS: -43 QRSD: 156 T: 34 QT: 467 QTc: 473 Interpretive Statements SINUS RHYTHM LEFT AXIS DEVIATION RIGHT BUNDLE BRANCH BLOCK INFERIOR INFARCT, AGE INDETERMINATE BASELINE WANDER- I, II, AVR, AVL, AVF ABNORMAL ECG Electronically Signed On 01-19-2020 15:25:00 [employer]KEEPER by George Moyer D.O.
--- NOTE | 2020-01-19 14:16 | ED.NEUROSD ---
HPI - Neuro Symptoms/Deficit General Chief Complaint: Suspected CVA Stated Complaint: possible cva, slurred speech Time Seen by Provider: 01/19/20 14:13 Source: patient and RN notes reviewed Mode of arrival: other Limitations: no limitations History of Present Illness HPI Narrative: Pt is a 74 y/o female who presents to the ED with c/o severe slurred speech that began one hour ago suddenly while sitting at home. Pt denies any alleviating factors. Pt has been able to ambulate. She denies being in any pain. Pt has a recent hx of CVA and a brain bleed. Pt was dx on 01/04/20 and was sent home recently from rehab. Pt requests to be transferred to [place] if needed. Pt also reports SOB, but denies a headache. Pt denies being on any anticoagulants. Onset (ago): hour(s) (1) Location: speech History of same: Yes Severity: severe Quality: constant Relieving factors: none Context: sudden onset On Anticoagulants: No Associated symptoms: shortness of breath Related Data Home Medications Medication Instructions Recorded Confirmed docusate sodium 100 mg capsule 100 mg PO Q12H 10/24/19 01/11/20 Saphris 5 mg SUBLINGUAL QAM 01/04/20 01/11/20 Saphris 10 mg SUBLINGUAL QPM 01/04/20 01/11/20 Lantus Solostar U-100 Insulin 20 unit SUB-Q HS 01/11/20 01/11/20 acetaminophen 650 mg PO Q4H PRN 01/11/20 01/11/20 bisacodyl 10 mg MA DAILY PRN 01/11/20 01/11/20 cholecalciferol (vitamin D3) 2,000 unit PO DAILY 01/11/20 01/11/20 sennosides [senna] 8.6 mg PO Q12H 01/11/20 01/11/20 Allergies Allergy/AdvReac Type Severity Reaction Status Date / Time alendronate sodium Allergy Unknown Unknown Verified 01/19/20 14:48 amantadine Allergy Unknown Unknown Verified 01/19/20 14:48 benztropine Allergy Unknown Unknown Verified 01/19/20 14:48 chlorpromazine Allergy Unknown Unknown Verified 01/19/20 14:48 levofloxacin Allergy Unknown Unknown Verified 01/19/20 14:48 Macrolide Antibiotics Allergy Unknown UNKNOWN Verified 01/19/20 14:48 REACTION mirtazapine Allergy Unknown Unknown Verified 01/19/20 14:48 Quinolones Allergy Unknown Unknown Verified 01/19/20 14:48 topiramate Allergy Unknown Unknown Verified 01/19/20 14:48 Review of Systems Review of Systems: All systems reviewed & are unremarkable except as noted in HPI and below Respiratory: Respiratory: Reports dyspnea Neurologic: Reports Abnormal speech present (slurred) and Denies headache(s) [facility] Past Medical History Medical History (Updated 01/20/20 @ 07:43 by Zulema Priest MD) Anxiety Arthritis Asthma Bipolar disorder Cataracts, bilateral COPD (chronic obstructive pulmonary disease) CVA (cerebrovascular accident) Depression Diabetes mellitus GERD (gastroesophageal reflux disease) Hypertension Hypothyroidism IBS (irritable bowel syndrome) Peripheral neuropathy Rectal polyp Type 2 diabetes mellitus with hyperglycemia Ulcer UTI (urinary tract infection) Surgical History Surgical History (Updated 01/19/20 @ 14:28 by Elda Moeller) History of bladder surgery History of partial hysterectomy Hx of cataract removal with insertion of prosthetic lens Hx of section Hx of cholecystectomy Hx of tonsillectomy Social History Social History Smoking packs per day: 1.5 Smoking cigarettes per day: 30.0 Years smoked: 20 Smoking pack-years: 30.00 Smoking status: Former smoker Tobacco type: cigarettes Smoking end date: 09/03/16 Alcohol intake: never Substance use type: does not use Gender identity (if verbalized by the patient): Female Spiritual care concerns: No Agree to blood products: Yes Exam Const: General: no acute distress and well developed Orientation/consciousness: oriented to person, oriented to place, oriented to time and patient oriented x3 HENMT: Head: normocephalic Ears: external ears normal General nose exam: Normal external nose present Eyes: General: appearance normal, both eyes and all
[2020-01-19 14:21] VITALS: BP 167/60; PULSE 61; RESP 22; TEMP 36.8; O2SAT 98
[2020-01-19 14:22] VITALS: BP 167/60; PULSE 61; RESP 22; TEMP 36.8; O2SAT 98
[2020-01-19 14:32] VITALS: BP 167/60; PULSE 61; RESP 22; O2SAT 98
[2020-01-19 14:43] LABS: Basophils Absolute Auto 0.1 K/mm3 (0.0-0.1); Basophils Percent Auto 0.7 % (0.2-1.2); Eosinophils Absolute Auto 0.3 K/mm3 (0-0.3); Hematocrit 43.4 % (37.0-47.0); Immature Granulocyte Absolute 0.03 K/mm3 (0.00-0.031); Immature Granulocyte Percent A 0.4 % (0-0.5); Lymphocytes Absolute Auto 1.86 K/mm3 (0.9-3.2); Mean Corpuscular HGB Conc 32.3 g/dl (32-36); Mean Corpuscular Hemoglobin 29.6 pg (26-34); Mean Corpuscular Volume 91.8 fl (80-100); Mean Platelet Volume 11.4 fl (7.4-10.4); Monocytes Absolute Auto 0.4 K/mm3 (0.1-0.6); Monocytes Percent Auto 4.7 % (2.6-8.5); Neutrophils Absolute Auto 5.9 K/mm3 (1.3-6.7); Neutrophils Percent Auto 69.2 % (45.5-73.1); Platelet Count Result 215 k/mm3 (150-375); Red Blood Count 4.73 M/mm3 (4.2-5.4); Red Cell Distribution Width 14.3 % (11.5-14.5); White Blood Count 8.5 K/mm3 (4.5-10.0)
[2020-01-19 14:50] LABS: Glucose Point of Care 93 (65-105)
[2020-01-19 14:52] LABS: INR 1.1; Prothrombin Time 13.4 Seconds (11.1-14.7)
[2020-01-19 14:53] LABS: Blood Urea Nitrogen 26 mg/dL (7-17); Carbon Dioxide 25 mmol/L (22-30); Chloride 105 mmol/L (98-107); Estimated Glomerular Filt Rate 29; Glucose 114 mg/dL (65-105); Partial Thromboplastin Time 33.7 SECONDS (22.3-36.8); Potassium 4.3 mmol/L (3.4-5.0); Sodium 144 mmol/L (137-145)
[2020-01-19 15:04] LABS: Troponin I < 0.012 ng/mL (0.000-0.034)
[2020-01-19 15:23] LABS: NT Pro B Type Natriuretic Pept 472 PG/ML (5-100)
[2020-01-19 15:27] VITALS: BP 143/58; PULSE 61; RESP 20; O2SAT 97
[2020-01-19 16:36] VITALS: BP 157/53; PULSE 66; RESP 18; O2SAT 97
[2020-01-19 18:22] VITALS: BP 157/53; PULSE 65; RESP 16; O2SAT 98
== END 2020-01-19 18:25 | disposition short-term general hospital (02) ==
PROVIDERS: Emergency Medicine; Emergency Provider Emergency Medicine; PCP Internal Medicine
DX: I61.8 Other nontraumatic intracerebral hemorrhage (principal); R47.81 Slurred speech; R06.02 Shortness of breath; E11.42 Type 2 diabetes mellitus with diabetic polyneuropathy; J44.9 Chronic obstructive pulmonary disease, unspecified; M19.90 Unspecified osteoarthritis, unspecified site; E03.9 Hypothyroidism, unspecified; I10 Essential (primary) hypertension; K58.9 Irritable bowel syndrome, unspecified; F41.9 Anxiety disorder, unspecified; F31.9 Bipolar disorder, unspecified; Z87.440 Personal history of urinary (tract) infections; Z98.42 Cataract extraction status, left eye; Z98.41 Cataract extraction status, right eye; Z96.1 Presence of intraocular lens; I45.10 Unspecified right bundle-branch block; R94.31 Abnormal electrocardiogram [ECG] [EKG]; I51.7 Cardiomegaly
CPT/HCPCS: 36415; 70450; 71045; 80048; 82948; 83880; 84484; 85025; 85610; 85730; 93005; 99285

== ENCOUNTER 2020-03-05 11:01 | Outpatient (CLI) | payer MEDICARE, SELFPAY ==
--- NOTE | ~2020-03-05 | US_ITS ---
EXAMINATION: US venous doppler LE RT DATE: 03/05/2020 11:55 INDICATION: Right calf swelling. TECHNIQUE: Grayscale ultrasound images without and with compression and Doppler ultrasound images of the right lower extremity veins were obtained. COMPARISON: None. FINDINGS: The visualized portions of right common femoral vein, profunda (deep) femoral vein, femoral vein, pop liteal vein, posterior tibial veins, and greater saphenous vein outflow are patent. There is thrombus in the peroneal veins. IMPRESSION: 1. Deep vein thrombosis involving the peroneal veins. I discussed this result with Lakshmi Amaro on 03/05/20 at 12:00 PM. Reviewed, dictated and finalized at location A.
[2020-03-05 12:30] LABS: Hemoglobin A1C 6.9 % (<5.7)
[2020-03-05 12:32] LABS: Blood Urea Nitrogen 23 mg/dL (7-17); Calcium 9.5 mg/dL (8.4-10.2); Carbon Dioxide 26 mmol/L (22-30); Chloride 106 mmol/L (98-107); Estimated Glomerular Filt Rate 29; Glucose 152 mg/dL (65-105); Potassium 4.4 mmol/L (3.4-5.0); Sodium 141 mmol/L (137-145)
== END 2020-03-05 11:02 | disposition home or self-care (01) ==
PROVIDERS: PCP Internal Medicine; Visit Provider Internal Medicine
DX: R60.9 Edema, unspecified (principal); E11.9 Type 2 diabetes mellitus without complications; N18.3 Chronic kidney disease, stage 3 (moderate)
CPT/HCPCS: 36415; 80048; 83036; 93971

== ENCOUNTER 2020-03-08 17:06 | Outpatient (CLI) | payer MEDICARE, SELFPAY ==
--- NOTE | ~2020-03-08 | US_ITS ---
EXAMINATION:US venous doppler LE LT INDICATION:Left leg pain TECHNIQUE: Multiple grayscale, color flow and Doppler images of the left lower extremity deep venous systems were obtained and reviewed. COMPARISON:No prior studies for comparison. FINDINGS: The common femoral, superficial femoral and popliteal veins demonstrate normal respiratory variation, augmentation and compressibility. Color flow is also seen within the posterior tibial, pe roneal, greater saphenous and profunda veins. IMPRESSION: 1: No lower extremity deep venous thrombosis. Reviewed, dictated and finalized at location A.
== END 2020-03-08 17:07 | disposition home or self-care (01) ==
PROVIDERS: PCP Internal Medicine; Visit Provider Nurse Practitioner
DX: M79.89 Other specified soft tissue disorders (principal)
CPT/HCPCS: 93971

== ENCOUNTER 2020-03-12 10:42 | Outpatient (CLI) | payer MEDICARE, SELFPAY ==
--- NOTE | ~2020-03-12 | US_ITS ---
EXAMINATION:US venous doppler LE RT INDICATION:Acute pulmonary embolism. Right calf DVT. TECHNIQUE: Multiple grayscale, color flow and Doppler images of the right lower extremity deep venous systems were obtained and reviewed. COMPARISON:Ultrasound dated 03/05/2020 FINDINGS: The common femoral, superficial femoral and popliteal veins demonstrate normal respiratory variation, augmentation and compressibility. Color flow is also seen within the posterior tibial, pe roneal, greater saphenous and profunda veins. Interval resolution of thrombus in the right peroneal v ein. IMPRESSION: 1: No lower extremity deep venous thrombosis. Reviewed, dictated and finalized at location A.
== END 2020-03-12 10:43 | disposition home or self-care (01) ==
LOC: ANHIMG 10:45
PROVIDERS: PCP Internal Medicine; Visit Provider Nurse Practitioner
DX: I82.401 Acute embolism and thrombosis of unspecified deep veins of right lower extremity (principal)
CPT/HCPCS: 93971

== ENCOUNTER 2020-03-15 11:19 | Outpatient (CLI) | payer MEDICARE, SELFPAY ==
--- NOTE | ~2020-03-15 | MM_ITS ---
EXAMINATION: MM diagnostic mammo unilat LT HISTORY: Left breast calcifications and left breast asymmetry on screening mammogram TECHNIQUE: Additional 3-D tomosynthesis images of the left breast were performed and synthetic 2-D im ages were generated. CAD analysis was submitted and interpreted. COMPARISON: 12/21/2019, 07/22/2010, 06/25/2010 BREAST PARENCHYMAL COMPOSITION: There are scattered areas of fibroglandular density. FINDINGS: There are grouped round calcifications in the anterior third of the breast which have a sta ble appearance with magnification views when compared to prior mammograms and demonstrated adjacent b iopsy marker. No persistent asymmetry is identified with spot compression. IMPRESSION: 1. No mammographic evidence of malignancy. 2. Recommend routine screening mammography in one year. BI-RADS Category 2: Benign finding(s). Reviewed, dictated and finalized at location A.
== END 2020-03-15 11:20 | disposition home or self-care (01) ==
LOC: ANHIMG 11:24
PROVIDERS: PCP Internal Medicine; Visit Provider Internal Medicine
DX: R92.8 Other abnormal and inconclusive findings on diagnostic imaging of breast (principal)
CPT/HCPCS: 77065

== ENCOUNTER 2020-05-24 13:01 | Outpatient (CLI) | payer MEDICARE, SELFPAY ==
[2020-05-24 14:37] LABS: Albumin Level 4.5 g/dL (3.5-5.1); Blood Urea Nitrogen 25 mg/dL (7-17); Calcium 9.6 mg/dL (8.4-10.2); Carbon Dioxide 22 mmol/L (22-30); Chloride 105 mmol/L (98-107); Estimated Glomerular Filt Rate 32; Glucose 190 mg/dL (65-105); Phosphorus 4.1 mg/dL (2.5-4.5); Potassium 5.1 mmol/L (3.4-5.0); Sodium 137 mmol/L (137-145)
[2020-05-24 14:48] LABS: Parathyroid Intact 105.5 pg/mL (7.5-53.5)
[2020-05-24 15:15] LABS: Creatinine Urine 83.8 mg/dL
[2020-05-24 15:40] LABS: Total Protein Urine Random 242 mg/dL
[2020-05-24 15:47] LABS: Hemoglobin A1C 6.9 % (<5.7)
[2020-05-24 15:54] LABS: Vitamin D 25 Hydroxy 36.8 ng/mL
== END 2020-05-24 13:02 | disposition home or self-care (01) ==
LOC: ANHLAB 13:04
PROVIDERS: PCP Internal Medicine; Visit Provider Internal Medicine Nephrology
DX: I12.9 Hypertensive chronic kidney disease with stage 1 through stage 4 chronic kidney disease, or unspecified chronic kidney disease (principal); N18.3 Chronic kidney disease, stage 3 (moderate); E11.29 Type 2 diabetes mellitus with other diabetic kidney complication; R80.8 Other proteinuria
CPT/HCPCS: 36415; 80069; 82306; 82570; 83036; 83970; 84156

== ENCOUNTER 2020-07-02 10:30 | Outpatient (CLI) | payer MEDICARE, SELFPAY ==
[2020-07-02 11:01] LABS: Basophils Absolute Auto 0.1 K/mm3 (0.0-0.1); Basophils Percent Auto 0.7 % (0.2-1.2); Eosinophils Absolute Auto 0.3 K/mm3 (0-0.3); Eosinophils Percent Auto 3.4 % (0-4.4); Hematocrit 38.7 % (37.0-47.0); Hemoglobin 12.7 g/dL (12.0-15.0); Immature Granulocyte Absolute 0.03 K/mm3 (0.00-0.031); Immature Granulocyte Percent A 0.4 % (0-0.5); Lymphocytes Absolute Auto 1.46 K/mm3 (0.9-3.2); Lymphocytes Percent Auto 19.9 % (18.3-44.2); Mean Corpuscular HGB Conc 32.8 g/dl (32-36); Mean Corpuscular Hemoglobin 30.5 pg (26-34); Monocytes Absolute Auto 0.3 K/mm3 (0.1-0.6); Monocytes Percent Auto 4.4 % (2.6-8.5); Neutrophils Absolute Auto 5.2 K/mm3 (1.3-6.7); Neutrophils Percent Auto 71.2 % (45.5-73.1); Platelet Count Result 193 k/mm3 (150-375); Red Blood Count 4.16 M/mm3 (4.2-5.4); Red Cell Distribution Width 14.4 % (11.5-14.5); White Blood Count 7.3 K/mm3 (4.5-10.0)
[2020-07-02 11:23] LABS: Anion Gap 15.6 mmol/L (7-16); Blood Urea Nitrogen 30 mg/dL (7-17); Calcium 9.6 mg/dL (8.4-10.2); Carbon Dioxide 21 mmol/L (22-30); Chloride 108 mmol/L (98-107); Estimated Glomerular Filt Rate 28; Glucose 199 mg/dL (65-105); Magnesium 2.2 mg/dL (1.6-2.3); Potassium 4.6 mmol/L (3.4-5.0); Sodium 140 mmol/L (137-145)
== END 2020-07-02 10:31 | disposition home or self-care (01) ==
LOC: ANHLAB 10:33
PROVIDERS: PCP Internal Medicine; Visit Provider Clinical Nurse Specialist
DX: R25.2 Cramp and spasm (principal); M79.669 Pain in unspecified lower leg
CPT/HCPCS: 36415; 80048; 83735; 85025

== ENCOUNTER 2020-10-18 10:47 | Outpatient (CLI) | payer MEDICARE, SELFPAY ==
[2020-10-18 11:37] LABS: Albumin Level 4.5 g/dL (3.5-5.1); Anion Gap 11 mmol/L (8-16); Blood Urea Nitrogen 22 mg/dL (7-17); Calcium 9.6 mg/dL (8.4-10.2); Carbon Dioxide 23 mmol/L (22-30); Chloride 107 mmol/L (98-107); Estimated Glomerular Filt Rate 40; Glucose 150 mg/dL (65-105); Phosphorus 4.2 mg/dL (2.5-4.5); Potassium 5.3 mmol/L (3.4-5.0); Sodium 141 mmol/L (137-145)
[2020-10-18 12:26] LABS: Total Protein Urine Random 218 mg/dL
== END 2020-10-18 10:48 | disposition home or self-care (01) ==
PROVIDERS: PCP Internal Medicine; Referring Provider Internal Medicine; Visit Provider Internal Medicine Nephrology
DX: R80.8 Other proteinuria (principal); N18.30 Chronic kidney disease, stage 3 unspecified; I12.9 Hypertensive chronic kidney disease with stage 1 through stage 4 chronic kidney disease, or unspecified chronic kidney disease; E11.29 Type 2 diabetes mellitus with other diabetic kidney complication
CPT/HCPCS: 36415; 80069; 82570; 84156

== ENCOUNTER 2021-01-31 10:07 | Outpatient (CLI) | payer MEDICARE, SELFPAY ==
[2021-01-31 10:50] LABS: Creatinine Urine 30.6 mg/dL
[2021-01-31 10:59] LABS: Albumin Level 4.3 g/dL (3.5-5.1); Anion Gap 9 mmol/L (8-16); Blood Urea Nitrogen 24 mg/dL (7-17); Calcium 9.2 mg/dL (8.4-10.2); Carbon Dioxide 25 mmol/L (22-30); Chloride 107 mmol/L (98-107); Estimated Glomerular Filt Rate 34; Glucose 97 mg/dL (65-105); Phosphorus 3.1 mg/dL (2.5-4.5); Potassium 4.7 mmol/L (3.4-5.0); Sodium 141 mmol/L (137-145)
[2021-01-31 11:11] LABS: Parathyroid Intact 92.4 pg/mL (7.5-53.5)
[2021-01-31 11:15] LABS: Creatinine 24 Hour Urine 0.6 gm/24 (0.8-1.8); Total Volume 24 Hour Urine 2200 ml
[2021-01-31 11:50] LABS: Free T4 Free Thyroxine 1.18 ng/mL (0.78-2.19); Vitamin D 25 Hydroxy 37.7 ng/mL
[2021-02-03 05:53] LABS: Ionized Calcium 4.9 mg/dL (4.8-5.6)
[2021-02-05 14:10] LABS: Total Volume 2200 mL; Urine Calcium 1.9 mg/dL
== END 2021-01-31 10:08 | disposition home or self-care (01) ==
LOC: ANHLAB 10:10
PROVIDERS: PCP Internal Medicine; Visit Provider Internal Medicine Endocrinology, Diabetes & Metabolism
DX: E11.22 Type 2 diabetes mellitus with diabetic chronic kidney disease (principal); M81.0 Age-related osteoporosis without current pathological fracture; E03.9 Hypothyroidism, unspecified
CPT/HCPCS: 36415; 80069; 81050; 82306; 82330; 82340; 82570; 83970; 84439; 84443

== ENCOUNTER 2021-05-16 08:55 | Outpatient (CLI) | payer MEDICARE, SELFPAY ==
--- NOTE | ~2021-05-16 | MM_ITS ---
EXAMINATION: MM screening alice BI w benja HISTORY: Screening mammogram, family history of breast cancer in her sister. TECHNIQUE: Craniocaudal and mediolateral oblique 3-D tomosynthesis images were obtained and synthetic 2-D images were generated. CAD analysis was submitted and interpreted. COMPARISON: 03/15/2020, 12/21/2019, 07/22/2010, 06/25/2010 BREAST PARENCHYMAL COMPOSITION: There are scattered areas of fibroglandular density. FINDINGS: RIGHT BREAST: An asymmetry is present in the middle third of the breast 7 cm from the nipple on the c raniocaudal view. LEFT BREAST: There is no evidence of suspicious mass, calcification, or architectural distortion to s uggest malignancy. There has been no significant interval change. Stable punctate calcifications with adjacent biopsy marker are again noted in the lower inner breast. IMPRESSION: 1. Right breast asymmetry. 2. Additional mammographic views and possible breast ultrasound are recommended. BI-RADS Category 0: Incomplete: Needs additional imaging evaluation. Reviewed, dictated and finalized at location A. IMPRESSION: 1. Right breast asymmetry. 2. Additional mammographic views and possible breast ultrasound are recommended . BI-RADS Category 0: Incomplete: Needs additional imaging evaluation.
== END 2021-05-16 08:56 | disposition home or self-care (01) ==
LOC: ANHIMG 09:02
PROVIDERS: PCP Internal Medicine Endocrinology, Diabetes & Metabolism; Visit Provider Internal Medicine
DX: Z12.31 Encounter for screening mammogram for malignant neoplasm of breast (principal); R92.8 Other abnormal and inconclusive findings on diagnostic imaging of breast
CPT/HCPCS: 77063; 77067

== ENCOUNTER 2021-06-28 07:25 | Outpatient (CLI) | payer MEDICARE, SELFPAY ==
--- NOTE | 2021-06-28 07:42 | ECHO_ITS ---
Patient Info Name: Nisha Sigala Age: 75 years : 1945 Gender: Female Ht: 59 in Wt: 140 lbs BSA: 1.65 m2 HR: 57 bpm BP: 147 / 67 mmHg Technical Quality: Good Exam Date: 06/28/2021 8:03 AM Exam Location: [facility] Patient Status: Outpatient Admit Date: 06/28/2021 Staff Ordering Physician: Maria A Wolf NP Certified Medical Technician: Mira Omalley RDCS Attending Provider: Maria A Wolf NP Referring Physician: Luciano JEFFERSON; Exam Type: CA echo doppler color flow Study Info Indications R06.02 - Shortness of breath Complete two-dimensional, color flow and Doppler transthoracic echocardiogram is performed. Summary 1. Complete two-dimensional, color flow and Doppler transthoracic echocardiogram is performed. 2. Left ventricular chamber dimension is normal. 3. Left ventricular systolic function is normal, estimated at 65-70%. 4. There is mildly increased left ventricular wall thickness. 5. The left ventricular diastolic function is grade I diastolic dysfunction. 6. E/e' 20 is elevated. 7. Global longitudinal strain is mildly abnormal at -16.4%. 8. Left atrial chamber dimension is moderately enlarged. 9. There is moderate aortic valve sclerosis. 10. There is mild aortic valve stenosis with a peak velocity of 239 cm/s, mean gradient of 14 mmHg, and aortic valve area of 1.7 cm2. 11. There is mild aortic valve regurgitation. 12. There is trace mitral valve regurgitation. 13. No pulmonary hypertension, estimated pulmonary arterial systolic pressure is 24 mmHg. 14. There is trivial pericardial effusion. Left Ventricle E/e' 20 is elevated. Global longitudinal strain is mildly abnormal at -16.4%. Left ventricular chamber dimension is normal. Left ventricular systolic function is normal, estimated at 65-70%. There is mildly increased left ventricular wall thickness. The left ventricular diastolic function is grade I diastolic dysfunction. Right Ventricle Right ventricular chamber dimension is normal. Right ventricular systolic function is normal. Left Atria Left atrial chamber dimension is moderately enlarged. Right Atria Right atrial chamber dimension is normal. Aortic Valve The aortic valve is trileaflet. There is moderate aortic valve sclerosis. There is mild aortic valve stenosis with a peak velocity of 239 cm/s, mean gradient of 14 mmHg, and aortic valve area of 1.7 cm2. There is mild aortic valve regurgitation. Pulmonic Valve There is no pulmonic regurgitation. Mitral Valve There is no mitral valve stenosis. There is trace mitral valve regurgitation. Tricuspid Valve There is no tricuspid valve regurgitation. No pulmonary hypertension, estimated pulmonary arterial systolic pressure is 24 mmHg. Pericardium/Pleural There is trivial pericardial effusion. Inferior Vena Cava Normal inferior vena cava with >50% collapse upon inspiration consistent with normal right atrial pressure, 5 mmHg. Aorta The aortic root size at the sinus of Valsalva is normal. Left Ventricular Outflow Tract Name Value Normal LVOT 2D LVOT Diameter 2.0 cm LVOT Doppler LVOT Peak Gradient
--- NOTE | 2021-06-28 13:47 | WPDPFTINT ---
PFT Procedure Performed PFT Procedure Performed Plethysmography (Lung Vol) Diffusing Cap (DLCO) Flow Vol Loop Spirometry w/o Bronchodil PFT Interpretation This is a pulmonary function test with spirometry, plethysmography and diffusing capacity. The test was performed and results interpreted in accordance with the 2019 and 2005 ATS/ERS Task Force guidelines respectively using the Global Lung Function Initiative-2012 reference equations. Patient demonstrated good effort and cooperation. Reproducibility criteria were met. The quality of the spirometry maneuver was Grade C. Findings: Spirometry: There is decreased maximal expiratory airflow at all lung volumes. Contour the inspiratory flow tracing is normal. The FVC is 1.85 L, 83% predicted. The FEV1 is 1.07 L, 62% predicted. The FEV1: FVC ratio is 58%. Plethysmography: The total lung capacity is 4.58 L, 106% predicted. The functional residual capacity is 2.46 L, 101% predicted. The residual volume is 2.42 L, 118% predicted. Diffusing capacity: The absolute diffusion capacity is 10.0, 56% predicted. The diffusing capacity corrected for alveolar volume is 3.81, 86% predicted. Impression: There is a moderate obstructive abnormality. The lung volumes are normal. The absolute diffusing capacity is moderately decreased and normalizes when corrected for alveolar volume. There are no prior studies for comparison
== END 2021-06-28 07:26 | disposition home or self-care (01) ==
PROVIDERS: PCP Internal Medicine; Visit Provider Nurse Practitioner
DX: R06.02 Shortness of breath (principal)
CPT/HCPCS: 93306; 94375; 94726; 94729

== ENCOUNTER 2021-08-06 11:18 | Outpatient (CLI) | payer MEDICARE, SELFPAY ==
--- NOTE | ~2021-08-06 | MM_ITS ---
EXAMINATION: MM diagnostic alice RT w benja HISTORY: Right breast mammographic asymmetry reported on 05/16/2021 screening mammogram TECHNIQUE: Additional 3-D full-field ML and craniocaudal and spot craniocaudal tomosynthesis images o f were performed and synthetic 2-D images were generated. Rolled medial and rolled lateral craniocaud al views. CAD analysis was submitted and interpreted. COMPARISON: 05/16/2021 bilateral digital screening mammogram BREAST PARENCHYMAL COMPOSITION: There are scattered areas of fibroglandular density. FINDINGS: No reproducible mass or architectural distortion is detected. IMPRESSION: 1. No mammographic evidence of malignancy 2. Routine mammographic screening is recommended. BI-RADS Category 1: Negative Reviewed, dictated and finalized at location A.
[2021-08-06 13:39] LABS: Albumin Level 4.2 g/dL (3.5-5.1); Anion Gap 11 mmol/L (8-16); Blood Urea Nitrogen 21 mg/dL (7-17); Calcium 8.9 mg/dL (8.4-10.2); Carbon Dioxide 17 mmol/L (22-30); Chloride 113 mmol/L (98-107); Estimated Glomerular Filt Rate 29; Glucose 113 mg/dL (65-110); Phosphorus 3.5 mg/dL (2.5-4.5); Potassium 4.8 mmol/L (3.4-5.0); Sodium 141 mmol/L (137-145)
[2021-08-06 14:31] LABS: Vitamin D 25 Hydroxy 38.7 ng/mL
[2021-08-07 04:34] LABS: Creatinine Urine 59.4 mg/dL; Total Protein Urine Random 79 mg/dL; Ur Ttl Prot Creatinine Ratio 1.33 mg/mg (0-0.20)
== END 2021-08-06 11:19 | disposition home or self-care (01) ==
PROVIDERS: PCP Internal Medicine; Referring Provider Internal Medicine Nephrology; Visit Provider Internal Medicine
DX: I12.9 Hypertensive chronic kidney disease with stage 1 through stage 4 chronic kidney disease, or unspecified chronic kidney disease (principal); N18.32 Chronic kidney disease, stage 3b; E11.29 Type 2 diabetes mellitus with other diabetic kidney complication; R80.8 Other proteinuria; N64.9 Disorder of breast, unspecified
CPT/HCPCS: 36415; 77061; 77065; 80069; 82306; 82570; 83970; 84156; G0279

== ENCOUNTER 2021-08-15 11:27 | Outpatient (CLI) | payer MEDICARE, SELFPAY ==
--- NOTE | ~2021-08-15 | XR_ITS ---
EXAMINATION: XR chest 2V EXAM DATE: 08/15/2021 12:04 INDICATION: R06.02 - Shortness of breath. TECHNIQUE: Frontal and lateral projections of the chest obtained and reviewed. Comparison is made to prior examination from 01/19/2020. FINDINGS: There is cardiomegaly. There is indistinct reticulation with a bibasal predominance which may indicate pulmonary edema. No confluent consolidation, pneumothorax or pleural effusion suspected. There are mild bony degenerative changes. IMPRESSION: Cardiomegaly, indistinct reticulation most consistent with mild pulmonary edema. Reviewed, dictated and finalized at location G. IMPRESSION: Cardiomegaly, indistinct reticulation most consistent with mild pu lmonary edema.
== END 2021-08-15 11:28 | disposition home or self-care (01) ==
PROVIDERS: PCP Internal Medicine; Visit Provider Internal Medicine
DX: R06.02 Shortness of breath (principal); I51.7 Cardiomegaly
CPT/HCPCS: 71046

== ENCOUNTER 2021-08-20 14:17 | Outpatient (CLI) | payer MEDICARE, SELFPAY ==
[2021-08-20 15:07] LABS: Basophils Absolute Auto 0.1 K/mm3 (0.0-0.1); Basophils Percent Auto 0.8 % (0.2-1.2); Eosinophils Absolute Auto 0.2 K/mm3 (0-0.3); Eosinophils Percent Auto 2.8 % (0-4.4); Immature Granulocyte Absolute 0.03 K/mm3 (0.00-0.031); Immature Granulocyte Percent A 0.5 % (0-0.5); Lymphocytes Absolute Auto 1.18 K/mm3 (0.9-3.2); Lymphocytes Percent Auto 18.5 % (18.3-44.2); Mean Corpuscular HGB Conc 31.2 g/dl (32-36); Mean Corpuscular Hemoglobin 29.2 pg (26-34); Mean Corpuscular Volume 93.5 fl (80-100); Mean Platelet Volume 9.9 fl (7.4-10.4); Monocytes Absolute Auto 0.4 K/mm3 (0.1-0.6); Neutrophils Absolute Auto 4.6 K/mm3 (1.3-6.7); Neutrophils Percent Auto 71.4 % (45.5-73.1); Platelet Count Result 221 k/mm3 (150-375); Red Blood Count 2.16 M/mm3 (4.2-5.4); Red Cell Distribution Width 14.9 % (11.5-14.5); White Blood Count 6.4 K/mm3 (4.5-10.0)
[2021-08-20 15:13] LABS: Hematocrit 20.2 % (37.0-47.0)
[2021-08-20 15:19] LABS: Hemoglobin 6.3 g/dL (12.0-15.0)
[2021-08-20 15:29] LABS: NT Pro B Type Natriuretic Pept 884 pg/mL (5-100)
== END 2021-08-20 14:18 | disposition home or self-care (01) ==
LOC: ANHLAB 14:19
PROVIDERS: PCP Internal Medicine; Visit Provider Internal Medicine
DX: E03.9 Hypothyroidism, unspecified (principal); E11.649 Type 2 diabetes mellitus with hypoglycemia without coma; N18.30 Chronic kidney disease, stage 3 unspecified
CPT/HCPCS: 36415; 83880; 84443; 85025

== ENCOUNTER 2021-08-20 16:12 | Inpatient (IN) | payer MEDICARE, SELFPAY ==
[2021-08-20] VITALS (9 sets, daily range): BP systolic 145–166; BP diastolic 39–57; PULSE 58–87; RESP 15–22; TEMP 36.8–37.1; O2SAT 95–100
--- NOTE | ~2021-08-20 | XR_ITS ---
BARIUM ENEMA-AIR CONTRAST INDICATION: Blood in stool TECHNIQUE: Examination of the colon utilizing air-contrast barium enema technique. COMPARISON: KUB dated 08/22/2021 FINDINGS: The entire colon was filled, distending normally. There are multiple diverticula primarily involving the sigmoid colon No extrinsic mass effect is noted. The haustral pattern appears normal. There is no evidence of polyp, stricture, extravasation, obstruction or persistent mucosal abnormali ty. IMPRESSION: 1: Colonic diverticulosis. Otherwise, unremarkable colon. No strictures or obstruction.. Reviewed, dictated and finalized at location A. IMPRESSION: 1: Colonic diverticulosis. Otherwise, unremarkable colon. No strictures or obst ruction..
--- NOTE | ~2021-08-20 | XR_ITS ---
XR abdomen/kub 1V 08/22/2021 13:27 INDICATION: Occult blood in stool TECHNIQUE: KUB COMPARISON: None FINDINGS: Bowel gas pattern is normal. There is no evidence of free air, mass, organomegaly, ascites or obstruction. No abnormal calculi are seen. The bones appear intact. There are cholecystectomy c lips. Moderate lumbar spondylosis. IMPRESSION: 1: No acute abdominal abnormality identified. Reviewed, dictated and finalized at location A.
--- NOTE | ~2021-08-20 | XR_ITS ---
XR chest 2V 08/20/2021 16:47 Indication: Asthma. Hypertension. COPD. Procedure: 2 view chest Comparison: 08/15/2021 Findings: Heart size normal. Right basilar atelectasis. Small right pleural effusion. Interval resolu tion of mild edema. No pneumothorax. There are cholecystectomy clips. No acute osseous abnormality. Impression: 1: Right basilar atelectasis with small right pleural effusion. Reviewed, dictated and finalized at location A. Impression: 1: Right basilar atelectasis with small right pleural effusion.
--- NOTE | ~2021-08-20 | CT_ITS ---
EXAMINATION: CT abdomen pelvis wo con DATE: 08/20/2021 19:27 INDICATION: Abdominal pain. Abdominal distention. TECHNIQUE: Computed tomography (CT) of the abdomen and pelvis was performed without intravenous contr ast. Automated exposure control and iterative reconstruction technique were employed. The dose-length product was 593.23 mGy-cm. COMPARISON: 01/19/2019 FINDINGS: Mild smooth septal line thickening at the bilateral lung bases consistent with mild pulmonary edema. Heart size is normal. Atherosclerotic coronary artery calcifications. No pericardial or pleural effus ion. Cholecystectomy clips at the gallbladder fossa. Nodular liver surface consistent with cirrhosis. Mild splenomegaly measuring 13.6 cm craniocaudally along with splenorenal collaterals consistent wit h secondary portal venous hypertension. Pancreas, bilateral adrenal glands and kidneys are normal. Sm all fat-containing umbilical hernia. Moderate to large amount of stool scattered throughout the colon . There is moderate colonic diverticulosis with a sigmoid predominance. There is no adjacent inflamma tory change to suggest diverticulitis. Small bowel and appendix are normal. The uterus is not definit ively identified and has likely been surgically resected. Bladder is normal. No free intraperitoneal gas or fluid. No pathologically enlarged abdominal or pelvic lymphadenopathy. Severe lower cervical s pondylosis. Chronic appearing mild central compression fracture along the inferior endplate of L3 whi ch is new since the prior study. IMPRESSION: 1. No acute intra-abdominal/pelvic process. 2. Cirrhosis with splenomegaly and splenorenal collaterals consistent with portal venous hypertension . 3. Mild pulmonary edema at the lung bases. 4. Moderate diverticulosis. 5. Small fat-containing umbilical hernia. Reviewed, dictated and finalized at location A. IMPRESSION: 1. No acute intra-abdominal/pelvic process. 2. Cirrhosis with splenomegaly and splenorenal collaterals consistent with port al venous hypertension. 3. Mild pulmonary edema at the lung bases. 4. Moderate diverticulosis. 5. Small fat-containing umbilical hernia.
[2021-08-20 16:45] LABS: Basophils Absolute Auto 0.1 K/mm3 (0.0-0.1); Basophils Percent Auto 0.7 % (0.2-1.2); Eosinophils Absolute Auto 0.2 K/mm3 (0-0.3); Eosinophils Percent Auto 2.9 % (0-4.4); Hematocrit 21.5 % (37.0-47.0); Immature Granulocyte Absolute 0.06 K/mm3 (0.00-0.031); Immature Granulocyte Percent A 0.9 % (0-0.5); Lymphocytes Absolute Auto 1.22 K/mm3 (0.9-3.2); Lymphocytes Percent Auto 17.8 % (18.3-44.2); Mean Corpuscular HGB Conc 30.2 g/dl (32-36); Mean Corpuscular Hemoglobin 28.8 pg (26-34); Mean Corpuscular Volume 95.1 fl (80-100); Mean Platelet Volume 9.7 fl (7.4-10.4); Monocytes Absolute Auto 0.4 K/mm3 (0.1-0.6); Monocytes Percent Auto 5.8 % (2.6-8.5); Neutrophils Absolute Auto 4.9 K/mm3 (1.3-6.7); Neutrophils Percent Auto 71.9 % (45.5-73.1); Platelet Count Result 224 k/mm3 (150-375); Red Blood Count 2.26 M/mm3 (4.2-5.4); White Blood Count 6.8 K/mm3 (4.5-10.0)
[2021-08-20 16:51] LABS: Hemoglobin 6.5 g/dL (12.0-15.0)
[2021-08-20 17:13] LABS: Alanine Aminotransferase 65 U/L (4-35); Albumin Level 4.4 g/dL (3.5-5.1); Alkaline Phosphatase 567 U/L (38-126); Anion Gap 13 mmol/L (8-16); Aspartate Amino Transferase 117 U/L (14-36); Bilirubin,Total 0.2 mg/dL (0.2-1.3); Blood Urea Nitrogen 27 mg/dL (7-17); Calcium 9.9 mg/dL (8.4-10.2); Carbon Dioxide 18 mmol/L (22-30); Chloride 109 mmol/L (98-107); Estimated Glomerular Filt Rate 23; Glucose 134 mg/dL (65-110); Potassium 6.1 mmol/L (3.4-5.0); Sodium 140 mmol/L (137-145)
--- NOTE | 2021-08-20 18:55 | ECG_ITS ---
Measurements Intervals [place] Rate: 65 P: 54 MN: 207 QRS: -35 QRSD: 153 T: 21 QT: 451 QTc: 469 Interpretive Statements SINUS RHYTHM WITH FIRST DEGREE AV BLOCK LEFT AXIS DEVIATION RIGHT BUNDLE BRANCH BLOCK LOW VOLTAGE- PRECORDIAL LEADS BASELINE ARTIFACT- I, III, AVL ABNORMAL ECG Electronically Signed On 08-20-2021 20:20:41 CDT by George Moyer D.O.
[2021-08-20] MEDS: SODIUM CHLORIDE 0.9% IV 1,000 ML 999 ML IV CONT (19:02)
[2021-08-20 19:30] LABS: Partial Thromboplastin Time 32.6 SECONDS (22.3-36.8)
[2021-08-20 19:42] LABS: INR 1.2; Prothrombin Time 14.9 Seconds (11.1-14.7)
--- NOTE | 2021-08-20 19:47 | PC.NURSE ---
called blood bank,type & screen running @ this time received @ [phone]
--- NOTE | 2021-08-20 19:52 | ED.GENADULT ---
HPI - General Adult General Chief complaint: Recheck/Abnormal Lab/Rx Stated complaint: ABNORMAL BLOOD WORK Time Seen by Provider: 08/20/21 18:47 History of Present Illness HPI narrative: Patient 75-year-old female presents the emergency department with chief complaint of abnormal labs. The patient reports that she has been having some increased shortness of breath recently and noticed that she had some dark stools. Patient states she saw her primary care physician today they did outpatient labs and told her that her blood counts were extremely low and she should go immediately to the emergency department the patient denies chest pain denies abdominal pain denies being on blood thinners but does report that she takes an aspirin Related Data Home Medications Medication Instructions Recorded Confirmed asenapine maleate [Saphris] 10 mg SUBLINGUAL QPM 01/04/20 08/13/21 acetaminophen 650 mg PO Q4H PRN 01/11/20 08/13/21 Allergies Allergy/AdvReac Type Severity Reaction Status Date / Time alendronate sodium Allergy Unknown Unknown Verified 03/28/21 11:46 amantadine Allergy Unknown Unknown Verified 03/28/21 11:46 benztropine Allergy Unknown Unknown Verified 03/28/21 11:46 chlorpromazine Allergy Unknown Unknown Verified 03/28/21 11:46 levofloxacin Allergy Unknown Unknown Verified 03/28/21 11:46 Macrolide Antibiotics Allergy Unknown UNKNOWN Verified 03/28/21 11:46 REACTION mirtazapine Allergy Unknown Unknown Verified 03/28/21 11:46 Quinolones Allergy Unknown Unknown Verified 03/28/21 11:46 topiramate Allergy Unknown Unknown Verified 03/28/21 11:46 Review of Systems Review of Systems: A 10 system review of systems was completed on the patient and is negative except for what is stated in the HPI. Nursing and ancillary documentation was reviewed. [facility], [facility] Past Medical History Medical History Anemia Anxiety Aortic stenosis Arthritis Asthma Bipolar disorder Cataracts, bilateral Chronic kidney disease due to type 2 diabetes mellitus Chronic kidney disease, stage III (moderate) COPD (chronic obstructive pulmonary disease) CVA (cerebrovascular accident) Depression Diabetes mellitus GERD (gastroesophageal reflux disease) Heart burn HLD (hyperlipidemia) Hypertension Hypothyroidism IBS (irritable bowel syndrome) Osteoporosis Osteoporosis Peripheral neuropathy Rectal polyp Type 2 diabetes mellitus with hyperglycemia Ulcer UTI (urinary tract infection) Surgical History Surgical History History of bladder surgery History of partial hysterectomy Hx of cataract removal with insertion of prosthetic lens Hx of section Hx of cholecystectomy Hx of tonsillectomy Family History Family History Sibling Family history of multiple sclerosis Patient's brother is Family history of hypothyroidism Father Acute myocardial infarction, Onset Age: 79 Cerebrovascular accident, Onset Age: 79 Mother Family history of Alzheimer's disease, Onset Age: 90 Other Depression Diabetes mellitus Family history of arthritis Family history of elevated blood lipids Family history of thyroid disease Hypertension Social History Social History Smoking packs per day: 1.5 Smoking cigarettes per day: 30.0 Years smoked: 30 Smoking pack-years: 45.00 Smoking status: Former smoker Tobacco type: cigarettes Smoking end date: 09/03/16 Alcohol intake: never Substance use type: does not use Gender identity (if verbalized by the patient): Female Spiritual care concerns: No Agree to blood products: Yes Exam Narrative: GENERAL: Well-appearing, well-nourished, and in no acute distress. HEAD: Normocephalic, atraumatic. EYES: PER
[2021-08-20] MEDS: SODIUM CHLORIDE 0.9% IV 250 ML 30 ML IV CONT (21:40)
[2021-08-20] MEDS: TUBING, BLOOD PLUM PUMP TUBING 1 EACH XX (21:41)
[2021-08-20] MEDS: SODIUM BICARBONATE 8.4% 50 MEQ/50 ML SYRINGE IV PUSH ×2 (22:03→22:04)
[2021-08-20] MEDS: SODIUM POLYSTYRENE SULFONONATE 15 GM/60 ML BTL 30 GM PO (22:04)
[2021-08-20] MEDS: CALCIUM GLUCONATE 1,000 MG/10 ML VIAL 1000 MG IV PUSH (22:04)
[2021-08-21] VITALS (21 sets, daily range): BP systolic 140–167; BP diastolic 46–65; PULSE 60–78; RESP 16–20; TEMP 36.2–36.8; O2SAT 94–100; BMI 30.1
--- NOTE | 2021-08-21 00:32 | ADMGEN ---
This patient, Nisha Sigala, was admitted to Medical Room 260-01. Patient/family oriented to hospital policies and general routines including ID bracelet, bed and alarms, visiting hours, pain management, procedures, bathroom and other care routines, personal items, smoking policy, room service/diet, and visiting hours. Information on how to activate the Rapid Response Team has been discussed. Patient/Family are encouraged to report perceived risks to care and to ask questions if they do not understand what they are told or what they should do.
--- NOTE | 2021-08-21 02:18 | PM.IMHP ---
H&P: HPI History of Present Illness Date/Time: 08/21/21 02:18 Chief Complaint: Low hemoglobin Narrative: 75-year-old female with past medical history of aortic stenosis, diabetes, hypertension, and chronic kidney disease who presented to the ER via private vehicle due to abnormal hemoglobin on outpatient labs. She reports that for the last month or so she has had orthopnea, dyspnea on exertion and black stools. She has been having multiple black stools a day for the last month. Stools are tar like in nature. She reports that she did not initially report this to her physician as she thought it was due to some new medications that she was taking. However, she does not know the name of the new medication. She has also noticed increased abdominal swelling over the last 3 weeks. He reports significant dyspnea on exertion and developing new orthopnea over the last month as well. She had an outpatient echocardiogram May 2021 which demonstrated normal ejection fraction, mild aortic stenosis and diastolic dysfunction. She denies having any chest pain but was referred for outpatient stress test next week. She went to her primary care physician 08/13/2021 but was unable to have her labs drawn until 08/20/2021. Her labs demonstrated significant anemia with hemoglobin of 6.3 and she was referred to the ER. Patient had Hemoccult-positive stool in the ER that was frankly melenic. She denies any abdominal pain, nausea or vomiting. She reports that she has been having multiple melenic stools a day. She denies any history of hepatitis and has never had a history of heavy alcohol use. She has been on lamotrigine for many years due to her bipolar disorder. She reports that her bipolar disorder was so bad that she has had multiple episodes of ECT. However her most with has been stable for the last several years. She does have a history of chronic kidney disease. She denies eating any high potassium foods however on arrival to ER patient's potassium was 6.1. Her EKG did not demonstrate any peaked T-waves. She denies a history of COPD but had PFTs 06/28/2021 which demonstrated moderate obstructive disease and decreased diffusion capacity. She is on Anoro Ellipta at home. She denies any cough, congestion, fevers or chills. She does have a history of prior CVA. She reports some memory difficulty ever since her CVA and has some difficulty with word finding as well. Currently she has a good historian and is alert oriented x4. She does report some repetitive behaviors with her tongue that she associates with her prior CVA however I suspect that these behaviors are more consistent with possible tardive dyskinesia with her psychiatric medications. Review of Systems Review of Systems: 12 systems were reviewed with pertinent positives and negatives per HPI. Except as documented in the HPI, all other systems were reviewed and are negative. [facility] Past Medical History Medical History (Updated 08/21/21 @ 03:01 by Catina Leon DO) Anemia Anxiety Aortic stenosis Mild on echo May 2021 Arthritis Asthma Bipolar disorder Chronic kidney disease, stage III (moderate) Managed by Dr. Aquino COPD (chronic obstructive pulmonary disease) PFTs 06/28/2021: Moderate obstructive abnormality, moderate decreased diffusion capacity CVA (cerebrovascular accident) (~12/2019) Depression Diabetes mellitus Diabetic peripheral neuropathy Diastolic dysfunction Echocardiogram 05/2021: EF 65-70%, grade 1 diastolic dysfunction, E/E elevated, global longitudinal strain mildly abnormal, moderate left atrial enlargement, moderate aortic valve sclerosis, mild aortic valve stenosis with peak velocity 239, mean gradient 14, aortic valve area 1.7 to, mild aortic valve regurgitation, GERD (gastroesophageal reflux disease) HLD (hyperlipidemia) Hypertension Hypothyroidism IBS (irritable bowel syndrome) Osteoporosis Rectal polyp Type 2 diabetes mellitus Ulcer UTI (urinary tract infection)
[2021-08-21] MEDS: SODIUM CHLORIDE 0.9% IV 1,000 ML 125 ML IV CONT ×2 (06:26→16:49)
[2021-08-21] MEDS: LORazepam (*CRX) 0.5 MG TABLET PO ×3 (06:35→21:19)
[2021-08-21] MEDS: LEVOTHYROXINE SODIUM 125 MCG TABLET PO (06:35)
[2021-08-21 08:01] LABS: Basophils Absolute Auto 0.1 K/mm3 (0.0-0.1); Basophils Percent Auto 0.9 % (0.2-1.2); Eosinophils Absolute Auto 0.2 K/mm3 (0-0.3); Eosinophils Percent Auto 3.3 % (0-4.4); Hematocrit 29.9 % (37.0-47.0); Hemoglobin 9.7 g/dL (12.0-15.0); Immature Granulocyte Absolute 0.04 K/mm3 (0.00-0.031); Immature Granulocyte Percent A 0.7 % (0-0.5); Lymphocytes Absolute Auto 1.02 K/mm3 (0.9-3.2); Lymphocytes Percent Auto 17.8 % (18.3-44.2); Mean Corpuscular HGB Conc 32.4 g/dl (32-36); Mean Corpuscular Hemoglobin 29.8 pg (26-34); Mean Platelet Volume 9.8 fl (7.4-10.4); Monocytes Absolute Auto 0.3 K/mm3 (0.1-0.6); Monocytes Percent Auto 5.8 % (2.6-8.5); Neutrophils Absolute Auto 4.1 K/mm3 (1.3-6.7); Neutrophils Percent Auto 71.5 % (45.5-73.1); Platelet Count Result 209 k/mm3 (150-375); Red Blood Count 3.25 M/mm3 (4.2-5.4); Red Cell Distribution Width 14.4 % (11.5-14.5); White Blood Count 5.7 K/mm3 (4.5-10.0)
[2021-08-21 08:13] LABS: Anion Gap 13 mmol/L (8-16); Blood Urea Nitrogen 20 mg/dL (7-17); Calcium 9.9 mg/dL (8.4-10.2); Carbon Dioxide 21 mmol/L (22-30); Chloride 110 mmol/L (98-107); Estimated Glomerular Filt Rate 31; Glucose 130 mg/dL (65-110); Potassium 4.8 mmol/L (3.4-5.0); Sodium 144 mmol/L (137-145)
--- NOTE | 2021-08-21 08:29 | WPDGICN ---
Assessment and Plan Assessment and plan (1) Symptomatic anemia: Code(s): D64.9 - Anemia, unspecified Status: Acute Assessment and Plan: Patient with anemia identified on routine screening test. She has been very fatigued and weak attributed to this she feels much improved today after transfusion. Will evaluate with initial EGD. Patient did have a colonoscopy within last 2 years that was unremarkable aside from tortuosity. (2) Occult blood in stools: Code(s): R19.5 - Other fecal abnormalities Status: Acute Assessment and Plan: Patient with occult blood in stools. She has black stools consistent with melena suggesting upper GI source. EGD will be performed today to evaluate more thoroughly. decision on colonoscopy will be deferred until after endoscopy is accomplished. (3) Cirrhosis: Qualifiers: Hepatic cirrhosis type: unspecified hepatic cirrhosis Ascites presence: without ascites Qualified Code(s): K74.60 - Unspecified cirrhosis of liver Code(s): K74.60 - Unspecified cirrhosis of liver Status: Acute Assessment and Plan: Patient has cirrhosis of the liver currently attributed to ZIEGLER. This has been identified on previous CT scans dating back to 2017. Continued supportive care encourage. (4) Acute renal failure superimposed on stage 3 chronic kidney disease: Qualifiers: Acute renal failure type: unspecified Chronic kidney disease stage 3 subtype: stage 3a (GFR 45-59) Qualified Code(s): N17.9 - Acute kidney failure, unspecified; N18.31 - Chronic kidney disease, stage 3a Code(s): N17.9 - Acute kidney failure, unspecified; N18.30 - Chronic kidney disease, stage 3 unspecified Status: Acute (5) Type 2 diabetes mellitus: Code(s): E11.9 - Type 2 diabetes mellitus without complications Status: Acute (6) Bipolar disorder: Code(s): F31.9 - Bipolar disorder, unspecified Status: Acute GI Consult Note Consult date/time: 08/21/21 08:29 HPI: Nisha Sigala is a 75 year old female I am asked to see for anemia. Patient has an underlying history of chronic kidney disease. She has been treated for GE reflux disease has had polyps in the past. Past medical history also significant for mild CVA, COPD, bipolar illness and cirrhosis attributed to ZIEGLER. Patient had routine laboratory work performed in recently found to have says hemoglobin of 6 and a half. Patient was subsequently sent to the emergency room found to have occult blood in stool and admitted for further evaluation. On questioning patient reports black melenic stools over the last 1 month. She denies abdominal pain. She states her bowel habits are regular. Patient's most recent colonoscopy was limited by tortuous colon. She has more distant history of benign colon polyps. Family history is noncontributory. Review of old records reveals that previous CT scan 2016 suggested underlying cirrhosis of the liver. It was attributed to ZIEGLER. After transfusion last evening patient feels much improved. She denies any significant alcohol use. She has no known exposure to hepatitis. Review of Systems Review of Systems: All systems reviewed & are unremarkable except as noted in HPI and below PMFSH Past Medical History Medical History (Updated 08/21/21 @ 08:32 by Kaleb Baca MD) Anemia Anxiety Aortic stenosis Mild on echo May 2021 Arthritis Asthma Bipolar disorder Chronic kidney disease, stage III (moderate) Managed by Dr. Aquino COPD (chronic obstructive pulmonary disease) PFTs 06/28/2021: Moderate obstructive abnormality, moderate decreased diffusion capacity CVA (cerebrovascular accident) (~12/2019) Depression Diabetes mellitus Diabetic peripheral neuropathy Diastolic dysfunction Echocardiogram 05/2021: EF 65-70%, grade 1 diastolic dysfunction, E/E elevated, global longitudinal strain mildly abnormal, moderate left atrial enlargement, mo
[2021-08-21] MEDS: GABAPENTIN 300 MG CAPSULE 900 MG PO ×3 (08:54→16:55)
[2021-08-21] MEDS: ESCITALOPRAM OXALATE 5 MG TABLET PO (08:54)
[2021-08-21] MEDS: PANTOPRAZOLE SODIUM IV 40 MG VIAL IV PUSH ×2 (08:54→20:23)
[2021-08-21] MEDS: amLODIPine BESYLATE 5 MG TABLET 10 MG PO (08:54)
[2021-08-21 09:23] LABS: Hepatitis B Surface Antigen Negative (Negative)
[2021-08-21 09:29] LABS: HAV RESULT Negative (Negative); Hepatitis B Core IgM Result Negative (Negative)
[2021-08-21 09:41] LABS: Hepatitis B Surface Anti Res Negative; Hepatitis C Virus Antibody Negative (Negative)
[2021-08-21] MEDS: LACTATED RINGERS 1,000 ML 150 ML IV CONT (10:11)
--- NOTE | 2021-08-21 10:12 | WPDANESEPPF ---
Anes - Initial Pre Proc Eval Procedure: Operation Date: 08/21/21 11:00 Proposed Procedures p Esophagogastroduodenoscopy - Kaleb Baca MD Date/Time: 08/21/21 10:12 Surgeon: Loreta Ma PA-C Pre Op Diagnosis: GI bleed; Anemia; Hyperkalemia Patient Data Age: 75 Gender: F Height: 1.5 m Weight: 67.6 kg Last Vital Signs Temp 36.2 C L 08/21/21 10:03 Pulse 61 08/21/21 10:03 Resp 18 08/21/21 10:03 BP 155/48 H 08/21/21 10:03 Pulse Ox 98 08/21/21 10:03 Allergies Allergy/AdvReac Type Severity Reaction Status Date / Time alendronate sodium Allergy Unknown Unknown Verified 03/28/21 11:46 amantadine Allergy Unknown Unknown Verified 03/28/21 11:46 benztropine Allergy Unknown Unknown Verified 03/28/21 11:46 chlorpromazine Allergy Unknown Unknown Verified 03/28/21 11:46 levofloxacin Allergy Unknown Unknown Verified 03/28/21 11:46 Macrolide Antibiotics Allergy Unknown UNKNOWN Verified 03/28/21 11:46 REACTION mirtazapine Allergy Unknown Unknown Verified 03/28/21 11:46 Quinolones Allergy Unknown Unknown Verified 03/28/21 11:46 topiramate Allergy Unknown Unknown Verified 03/28/21 11:46 Home Medications Medication Instructions Recorded Confirmed Type asenapine maleate [Saphris] 5 mg SUBLINGUAL Q12H 01/04/20 08/21/21 History acetaminophen 650 mg PO Q4H PRN 01/11/20 08/21/21 History lamotrigine 150 mg PO BID #60 tablet 01/18/20 08/21/21 Rx lisinopril 10 mg tablet 10 mg PO DAILY #90 tablet 05/28/21 08/21/21 Rx umeclidinium 62.5 mcg-vilanterol 1 inh INHALATION DAILY #60 ea 07/01/21 08/21/21 Rx 25 mcg/actuation powdr for inhalation gabapentin 600 mg tablet 900 mg PO TID #409 tablet 08/02/21 08/21/21 Rx amlodipine 10 mg tablet 10 mg PO DAILY #90 tablet 08/07/21 08/21/21 Rx pantoprazole 40 mg tablet,delayed 40 mg PO QAM #90 tablet 08/07/21 08/21/21 Rx release aspirin 81 mg PO DAILY 08/21/21 08/21/21 History escitalopram oxalate 5 mg PO DAILY 08/21/21 08/21/21 History levothyroxine 125 mcg PO DAILY 08/21/21 08/21/21 History lorazepam 0.5 mg PO Q8H 08/21/21 08/21/21 History rosuvastatin 20 mg PO HS 08/21/21 08/21/21 History trazodone 300 mg PO HS 08/21/21 08/21/21 History Laboratory Tests 08/20/21 08/20/21 08/20/21 16:38 16:38 16:38 WBC 6.8 K/mm3 K/mm3 (4.5-10.0) RBC 2.26 M/mm3 L M/mm3 (4.2-5.4) Hgb 6.5 g/dL L* g/dL (12.0-15.0) Hct 21.5 % L % (37.0-47.0) MCV 95.1 fl fl (80-100) MCH 28.8 pg pg (26-34) MCHC 30.2 g/dl L g/dl (32-36) RDW 15.0 % H % (11.5-14.5) Plt Count 224 k/mm3 k/mm3 (150-375) MPV 9.7 fl fl (7.4-10.4) Immature Gran % (Auto) 0.9 % H % (0-0.5) Neut % (Auto) 71.9 % % (45.5-73.1) Lymph % (Auto) 17.8 % L % (18.3-44.2) [place] % (Auto) 5.8 % % (2.6-8.5) Eos % (Auto) 2.9 % % (0-4.4) Baso % (Auto) 0.7 % % (0.2-1.2) Lymph # (Auto) 1.22 K/mm3 K/mm3 (0.9-3.2) [place] # (Auto) 0.4 K/mm3 K/mm3 (0.1-0.6) Eos # (Auto) 0.2 K/mm3 K/mm3 (0-0.3) Baso # (Auto) 0.1 K/mm3 K/mm3 (0.0-0.1) Abs Immat Gran (auto) 0.06 K/mm3 H K/mm3 (0.00-0.031) Absolute Neuts (auto) 4.9 K/mm3 K/mm3 (1.3-6.7) Absolute Nucleated RBC 0.0 K/mm3 K/mm3 (0.0-0.012) Nucleated RBC % 0.0 % % (0.0-0.2) PT INR APTT Sodium 140 mmol/L mmol/L (137-145) Potassium 6.1 mmol/L H* mmol/L (3.4-5.0) Chloride 109 mmol/L H mmol/L (98-107) Carbon Dioxide 18 mmol/L L mmol/L (22-30) Anion Gap 13 mmol/L mmol/L (8-16) BUN 27 mg/dL H mg/dL (7-17) Creatinine 2.10 mg/dL H mg/dL (0.7-1.0) Estim Creat Clear Calc Not Reportable Estimated GFR 23 L (59 - ) Glucose 134 mg/dL H mg/dL (65-110) Calcium 9.9 mg/dL mg/dL
[2021-08-21 10:20] LABS: Glucose Point of Care 108 mg/dl (65-105)
[2021-08-21] MEDS: SIMETHICONE ORAL SUSPENSION 20 MG/0.3 ML 30 ML BOTTLE PO (10:47)
[2021-08-21 10:56] LABS: Add Urine Microscopic? YES; Appearance Urine Clear (Clear); Bilirubin Urine Negative (Negative); Blood Urine Negative (Negative); Color Urine Colorless (Yellow); Glucose Urine UA Negative (Negative); Ketones Urine Negative (Negative); Leukocyte Esterase Ur Negative LEU/UL (Negative); Nitrate Urine Negative (Negative); Protein Urine 2+ mg/dL (Negative); RBC Urine 0-2 /hpf (0-2); Urobilinogen Urine Negative mg/dL (<2.0); WBC Urine 0-3 /hpf
[2021-08-21 11:53] LABS: Glucose Point of Care 112 mg/dl (65-105)
[2021-08-21] MEDS: PEG (High)/E-LYTE SOLN 4,000 ML BTL 4000 ML PO (13:22)
--- NOTE | 2021-08-21 14:42 | PM.IMPN ---
Progress Note: A&P Assessment and Plan (1) Acute GI bleeding: Code(s): K92.2 - Gastrointestinal hemorrhage, unspecified Status: Acute Assessment and Plan: Pt anemic on admission with hgb 6.3 with dark stools -she was transfused 2 units and is now 9.7 -EGD did show non-bleeding varices and gastritis but no reason for the bleeding -plan for colonoscopy tomorrow -monitor for anemia symptoms -transfuse if she drops below 7 -no anemia labs done before her transfusion -hold aspirin for now (2) Symptomatic anemia: Code(s): D64.9 - Anemia, unspecified Status: Acute Assessment and Plan: As above (3) Cirrhosis: Qualifiers: Ascites presence: without ascites Hepatic cirrhosis type: unspecified hepatic cirrhosis Qualified Code(s): K74.60 - Unspecified cirrhosis of liver Code(s): K74.60 - Unspecified cirrhosis of liver Status: Acute Assessment and Plan: Noted in the past back to [address] Oro/Tiffanie diaz for this in the hospital -hep panel neg -He did a work up at that time and kezia was abnormal 1:640 with negative antichondrial ab and antismooth muscle. Autoimmune? -negative alpha 1 antitrypsin and creulosplasmin -will defer to GI (4) Acute renal failure superimposed on stage 3 chronic kidney disease: Qualifiers: Acute renal failure type: unspecified Chronic kidney disease stage 3 subtype: stage 3a (GFR 45-59) Qualified Code(s): N17.9 - Acute kidney failure, unspecified; N18.31 - Chronic kidney disease, stage 3a Code(s): N17.9 - Acute kidney failure, unspecified; N18.30 - Chronic kidney disease, stage 3 unspecified Status: Acute Assessment and Plan: Chronic and at baseline (5) Hyperkalemia: Code(s): E87.5 - Hyperkalemia Status: Acute Assessment and Plan: Resolved (6) Esophageal varices: Code(s): I85.00 - Esophageal varices without bleeding Status: Acute Assessment and Plan: Noted on EGD today -will start propranolol but monitor heart rate (7) Type 2 diabetes mellitus: Code(s): E11.9 - Type 2 diabetes mellitus without complications Status: Acute Assessment and Plan: Last glucose 112 -continue sliding scale insulin (8) Hypertension: Code(s): I10 - Essential (primary) hypertension Status: Acute Assessment and Plan: Last blood pressure 157/52 -continue amlodipine -hold lisinopril due to prior hyperkalemia (9) Elevated TSH: Code(s): R79.89 - Other specified abnormal findings of blood chemistry Status: Acute Assessment and Plan: 5.650 on admission -will run T4 with tomorrow's labs Time Spent With Patient Time with patient: 25 - 35 minutes Subjective Date/time seen: 08/21/21 14:42 Interval history: Pt is a 75 year old female here for shortness of breath and black stools. Patient was seen today and states that her shortness of breath it has improved but still there. She feels short of breath with movement but not really anything at rest. She does feel better after the blood. She denies cough, fevers, nausea, vomiting, leg swelling or chest pain. She has a history of aortic stenosis and she follows the provider for this. She lives at home alone and usually ambulates pretty well. She again denies history of heavy alcohol use. Review of Systems Review of Systems: All systems reviewed & are unremarkable except as noted in HPI and below Exam Narrative: General: Well developed well nourished patient in NAD HEENT: normocephalic Neck: supple Neuro: Alert and oriented x4. CN 2-12 intact. 5/5 strength in UE and LE CV:RRR with systolic murmur Resp:very mild crackles at baseline. No wheezing or rhonchi. No conversational dyspnea Abd: Soft, obese and non distended. No pain to palpation. Positive bowel sounds Extremities: No swelling, erythema, or pain t
--- NOTE | 2021-08-21 15:00 | PHAR ---
HOME MEDICATION SENT TO PHARMACY FOR VERIFICATION AND IDENTIFIED ASENAPINE 5MG SL BLISTER PACK SENT IN ENVELOPE WITH PATIENT NAME AND DIRECTION 1 TABLET MORNING/1 TABLET BEDTIME
[2021-08-21 16:52] LABS: Glucose Point of Care 81 mg/dl (65-105)
[2021-08-21 19:52] LABS: Hematocrit 31.4 % (37.0-47.0); Hemoglobin 10.3 g/dL (12.0-15.0)
[2021-08-21] MEDS: traZODone HCL 50 MG TABLET 300 MG PO (20:23)
[2021-08-21] MEDS: ROSUVASTATIN 10 MG TABLET 20 MG PO (20:24)
[2021-08-21] MEDS: PROPRANOLOL HCL 10 MG TABLET PO (20:24)
[2021-08-21 21:22] LABS: Glucose Point of Care 105 mg/dl (65-105)
[2021-08-22] VITALS (16 sets, daily range): BP systolic 105–164; BP diastolic 31–50; PULSE 51–63; RESP 16–22; TEMP 36.4–37.5; O2SAT 61–100
[2021-08-22] MEDS: SODIUM CHLORIDE 0.9% IV 1,000 ML 125 ML IV CONT ×2 (00:59→17:24)
[2021-08-22 05:56] LABS: Hematocrit 27.8 % (37.0-47.0)
[2021-08-22 06:08] LABS: Alanine Aminotransferase 46 U/L (4-35); Albumin Level 3.8 g/dL (3.5-5.1); Alkaline Phosphatase 463 U/L (38-126); Anion Gap 10 mmol/L (8-16); Aspartate Amino Transferase 68 U/L (14-36); Bilirubin,Total 0.4 mg/dL (0.2-1.3); Blood Urea Nitrogen 13 mg/dL (7-17); Calcium 8.6 mg/dL (8.4-10.2); Carbon Dioxide 20 mmol/L (22-30); Chloride 110 mmol/L (98-107); Estimated Glomerular Filt Rate 37; Glucose 103 mg/dL (65-110); Potassium 4.3 mmol/L (3.4-5.0); Sodium 140 mmol/L (137-145)
[2021-08-22 06:38] LABS: Free T4 Free Thyroxine 1.12 ng/mL (0.78-2.19)
[2021-08-22 06:53] LABS: Glucose Point of Care 100 mg/dl (65-105)
--- NOTE | 2021-08-22 07:20 | WPDANESPN ---
Anes - Prog Note Post-Op Date/Time: 08/22/21 07:20 Cardiovascular status: normal Respiratory status: normal Airway patency: baseline Mental status: baseline Post-Op hydration status: normal Vital Signs: Last Vital Signs Temp 98.4 F 08/22/21 03:53 Pulse 60 08/22/21 04:00 Resp 16 08/22/21 03:53 BP 150/46 H 08/22/21 03:53 Pulse Ox 97 08/22/21 03:53 Pain Score (VAS): 2/10 I/O: Intake & Output 08/21/21 08/21/21 08/22/21 15:59 23:59 07:59 Intake Total 1615 068 8685 Output Total 300 Balance 6449 351 2797 Laboratory Tests 08/22/21 05:08 08/22/21 05:08 08/21/21 08/21/21 08/21/21 07:49 07:49 07:49 WBC 5.7 RBC 3.25 L Hgb 9.7 L D Hct 29.9 L MCV 92.0 MCH 29.8 MCHC 32.4 RDW 14.4 Plt Count 209 MPV 9.8 Immature Gran % (Auto) 0.7 H Neut % (Auto) 71.5 Lymph % (Auto) 17.8 L [place] % (Auto) 5.8 Eos % (Auto) 3.3 Baso % (Auto) 0.9 Lymph # (Auto) 1.02 [place] # (Auto) 0.3 Eos # (Auto) 0.2 Baso # (Auto) 0.1 Abs Immat Gran (auto) 0.04 H Absolute Neuts (auto) 4.1 Absolute Nucleated RBC 0.0 Nucleated RBC % 0.0 Sodium 144 Potassium 4.8 Chloride 110 H Carbon Dioxide 21 L Anion Gap 13 BUN 20 H Creatinine 1.60 H Estim Creat Clear Calc Not Reportable Estimated GFR 31 L Glucose 130 H POC Capillary Glucose Calcium 9.9 Phosphorus Ferritin Total Bilirubin Direct Bilirubin AST ALT Alkaline Phosphatase Total Protein Albumin Free T4 Urine Color Urine Appearance Urine pH Ur Specific [place] Urine Protein Urine Glucose (UA) Urine Ketones Ur Blood (Man) Urine Nitrate Urine Bilirubin Urine Urobilinogen Leukocyte Esterase Rfl Urine RBC Urine WBC Hepatitis A IgM Ab Negative Hepatitis A Ab Total Hep Bs Antigen Negative Hep Bs Antibody Negative Hep B Core Total Ab Hep B Core IgM Ab Negative Hepatitis C Ab Screen Negative 08/21/21 08/21/21 08/21/21 07:49 10:01 10:16 WBC RBC Hgb Hct MCV MCH MCHC RDW Plt Count MPV Immature Gran % (Auto) Neut % (Auto) Lymph % (Auto) [place] % (Auto) Eos % (Auto) Baso % (Auto) Lymph # (Auto) [place] # (Auto) Eos # (Auto) Baso # (Auto) Abs Immat Gran (auto) Absolute Neuts (auto) Absolute Nucleated RBC Nucleated RBC % Sodium Potassium Chloride Carbon Dioxide Anion Gap BUN Creatinine Estim Creat Clear Calc Estimated GFR Glucose POC Capillary Glucose 108 H Calcium Phosphorus Ferritin Total Bilirubin Direct Bilirubin AST ALT Alkaline Phosphatase Total Protein Albumin Free T4 Urine Color Colorless Urine Appearance Clear Urine pH 8.0 Ur Specific [place] 1.010 Urine Protein 2+ H Urine Glucose (UA) Negative Urine Ketones Negative Ur Blood (Man) Negative Urine Nitrate Negative Urine Bilirubin Negative Urine Urobilinogen Negative Leukocyte Esterase Rfl Negative Urine RBC 0-2 Urine WBC 0-3 Hepatitis A IgM Ab Hepatitis A Ab Total Pending Hep Bs Antigen Hep Bs Antibody Hep B Core Total Ab Pending Hep B Core IgM Ab Hepatitis C Ab Screen 08/21/21 08/21/21 08/21/21 11:50 16:46 19:41 WBC RBC Hgb 10.3 L Hct 31.4 L MCV MCH MCHC RDW Plt Count MPV Immature Gran % (Auto) Neut % (Auto) Lymph % (Auto) [place] % (Auto) Eos % (Auto) Baso % (Auto) Lymph # (Auto) [place] # (Auto) Eos # (Auto) Baso # (Auto) Abs Immat Gran (auto) Absolute Neuts (auto) Absolute Nucleated RBC Nucleated RBC % Sodium Potassium Chloride Carbon Dioxide Anion Gap BUN Creatinine Estim Creat Clear Calc Estimated GFR Glucose POC Capillary Glucose 112 H 81 Calcium
[2021-08-22] MEDS: GABAPENTIN 300 MG CAPSULE 900 MG PO ×3 (08:56→17:25)
[2021-08-22] MEDS: amLODIPine BESYLATE 5 MG TABLET 10 MG PO (08:56)
[2021-08-22] MEDS: ESCITALOPRAM OXALATE 5 MG TABLET PO (08:56)
[2021-08-22] MEDS: PROPRANOLOL HCL 10 MG TABLET PO ×2 (08:57→22:05)
[2021-08-22] MEDS: PANTOPRAZOLE SODIUM IV 40 MG VIAL IV PUSH ×2 (08:57→22:05)
[2021-08-22] MEDS: UMECLIDINIUM/VILANTEROL 62.5-25 MCG ELLIPTA 1 PUFF INHALATION (09:49)
[2021-08-22 10:10] LABS: INR 1.1; Prothrombin Time 14.4 Seconds (11.1-14.7)
[2021-08-22 10:11] LABS: Partial Thromboplastin Time 36.1 SECONDS (22.3-36.8)
--- NOTE | 2021-08-22 11:00 | PC.NURSE ---
To GI Lab per katey, IV LAC, Left wrist. Report given to Chasidy.
[2021-08-22 11:01] LABS: Glucose Point of Care 110 mg/dl (65-105)
[2021-08-22] MEDS: LACTATED RINGERS 1,000 ML 150 ML IV CONT (11:15)
--- NOTE | 2021-08-22 11:31 | WPDANESEPPF ---
Anes - Initial Pre Proc Eval Procedure: Operation Date: 08/21/21 11:00 Proposed Procedures p Esophagogastroduodenoscopy - Kaleb Baca MD Operation Date: 08/22/21 11:30 Proposed Procedures p Colonoscopy - Kaleb Baca MD Date/Time: 08/22/21 11:31 Surgeon: Loreta Ma PA-C Pre Op Diagnosis: GI bleed; Anemia; Hyperkalemia Patient Data Age: 75 Gender: F Height: 1.5 m Weight: 67.6 kg Last Vital Signs Temp 99.5 F 08/22/21 11:02 Pulse 61 08/22/21 11:02 Resp 22 H 08/22/21 11:02 BP 152/42 H 08/22/21 11:02 Pulse Ox 61 L 08/22/21 11:02 Allergies Allergy/AdvReac Type Severity Reaction Status Date / Time alendronate sodium Allergy Unknown Unknown Verified 08/22/21 11:00 amantadine Allergy Unknown Unknown Verified 08/22/21 11:00 benztropine Allergy Unknown Unknown Verified 08/22/21 11:00 chlorpromazine Allergy Unknown Unknown Verified 08/22/21 11:00 levofloxacin Allergy Unknown Unknown Verified 08/22/21 11:00 Macrolide Antibiotics Allergy Unknown UNKNOWN Verified 08/22/21 11:00 REACTION mirtazapine Allergy Unknown Unknown Verified 08/22/21 11:00 Quinolones Allergy Unknown Unknown Verified 08/22/21 11:00 topiramate Allergy Unknown Unknown Verified 08/22/21 11:00 Home Medications Medication Instructions Recorded Confirmed Type asenapine maleate [Saphris] 5 mg SUBLINGUAL Q12H 01/04/20 08/21/21 History acetaminophen 650 mg PO Q4H PRN 01/11/20 08/21/21 History lamotrigine 150 mg PO BID #60 tablet 01/18/20 08/21/21 Rx lisinopril 10 mg tablet 10 mg PO DAILY #90 tablet 05/28/21 08/21/21 Rx umeclidinium 62.5 mcg-vilanterol 1 inh INHALATION DAILY #60 ea 07/01/21 08/21/21 Rx 25 mcg/actuation powdr for inhalation gabapentin 600 mg tablet 900 mg PO TID #409 tablet 08/02/21 08/21/21 Rx amlodipine 10 mg tablet 10 mg PO DAILY #90 tablet 08/07/21 08/21/21 Rx pantoprazole 40 mg tablet,delayed 40 mg PO QAM #90 tablet 08/07/21 08/21/21 Rx release aspirin 81 mg PO DAILY 08/21/21 08/21/21 History escitalopram oxalate 5 mg PO DAILY 08/21/21 08/21/21 History levothyroxine 125 mcg PO DAILY 08/21/21 08/21/21 History lorazepam 0.5 mg PO Q8H 08/21/21 08/21/21 History rosuvastatin 20 mg PO HS 08/21/21 08/21/21 History trazodone 300 mg PO HS 08/21/21 08/21/21 History Laboratory Tests 08/21/21 08/21/21 08/21/21 11:50 16:46 19:41 Hgb 10.3 g/dL L g/dL (12.0-15.0) Hct 31.4 % L % (37.0-47.0) PT INR APTT Sodium Potassium Chloride Carbon Dioxide Anion Gap BUN Creatinine Estim Creat Clear Calc Estimated GFR Glucose POC Capillary Glucose 112 mg/dl H mg/dl 81 mg/dl mg/dl (65-105) (65-105) Calcium Phosphorus Ferritin Total Bilirubin Direct Bilirubin AST ALT Alkaline Phosphatase Total Protein Albumin Ceruloplasmin Free T4 ANTHONY Screen Mitochondria M2 IgG Ab 08/21/21 08/22/21 08/22/21 20:29 05:01 05:08 Hgb 9.0 g/dL L g/dL (12.0-15.0) Hct 27.8 % L % (37.0-47.0) PT INR APTT Sodium Potassium Chloride Carbon Dioxide Anion Gap BUN Creatinine Estim Creat Clear Calc Estimated GFR Glucose POC Capillary Glucose 105 mg/dl mg/dl (65-105) Calcium Phosphorus Ferritin 22.00 ng/mL ng/mL (11.1-264) Total Bilirubin Direct Bilirubin AST ALT Alkaline Phosphatase Total Protein Albumin Ceruloplasmin Free T4 ANTHONY Scree
--- NOTE | 2021-08-22 12:39 | PC.NURSE ---
Returned from GI Lab. Report received from Chasidy.
[2021-08-22 13:17] LABS: Hematocrit 30.9 % (37.0-47.0); Hemoglobin 10.3 g/dL (12.0-15.0)
[2021-08-22] MEDS: LORazepam (*CRX) 0.5 MG TABLET PO ×2 (14:11→22:05)
--- NOTE | 2021-08-22 15:06 | PM.IMPN ---
Progress Note: A&P Assessment and Plan (1) Acute GI bleeding: Code(s): K92.2 - Gastrointestinal hemorrhage, unspecified Status: Acute Assessment and Plan: Pt anemic on admission with hgb 6.3 with dark stools -she was transfused 2 units and is now 10.3 -EGD did show non-bleeding varices and gastritis but no reason for the bleeding -colonoscopy was not complete due to torturous colon -plan for GI follow-through either today or tomorrow -monitor for anemia symptoms -transfuse if she drops below 7 -no anemia labs done before her transfusion -hold aspirin for now -likely discharge in 1-2 days if the hemoglobin remains stable and further workup is negative (2) Symptomatic anemia: Code(s): D64.9 - Anemia, unspecified Status: Acute Assessment and Plan: As above (3) Cirrhosis: Qualifiers: Hepatic cirrhosis type: unspecified hepatic cirrhosis Ascites presence: without ascites Qualified Code(s): K74.60 - Unspecified cirrhosis of liver Code(s): K74.60 - Unspecified cirrhosis of liver Status: Acute Assessment and Plan: Noted in the past back to [address] Oro/[facility] group for this in the hospital -hep panel neg -He did a work up at that time and kezia was abnormal 1:640 with negative antichondrial ab and antismooth muscle. Autoimmune? -negative alpha 1 antitrypsin and creulosplasmin in the past -will defer to GI (4) Acute renal failure superimposed on stage 3 chronic kidney disease: Qualifiers: Acute renal failure type: unspecified Chronic kidney disease stage 3 subtype: stage 3a (GFR 45-59) Qualified Code(s): N17.9 - Acute kidney failure, unspecified; N18.31 - Chronic kidney disease, stage 3a Code(s): N17.9 - Acute kidney failure, unspecified; N18.30 - Chronic kidney disease, stage 3 unspecified Status: Acute Assessment and Plan: Chronic and at baseline (5) Hyperkalemia: Code(s): E87.5 - Hyperkalemia Status: Acute Assessment and Plan: Resolved (6) Esophageal varices: Code(s): I85.00 - Esophageal varices without bleeding Status: Acute Assessment and Plan: Noted on EGD -propanolol started -heart rate has been stable (7) Type 2 diabetes mellitus: Code(s): E11.9 - Type 2 diabetes mellitus without complications Status: Acute Assessment and Plan: Last glucose 110 -continue sliding scale insulin (8) Hypertension: Code(s): I10 - Essential (primary) hypertension Status: Acute Assessment and Plan: Last blood pressure 136/41 -continue amlodipine -hold lisinopril for now due to prior hyperkalemia (9) Elevated TSH: Code(s): R79.89 - Other specified abnormal findings of blood chemistry Status: Acute Assessment and Plan: 5.650 on admission -T4 normal Subjective Date/time seen: 08/22/21 15:06 Interval history: Pt is a 75 year old female here for shortness of breath and black stools. Patient was seen today and states that her shortness of breath it has improved. She has been having diarrhea with the colon prep. It started off as black stool and turned in to yellow. She has had no abdominal pain. She denies lightheadedness, dizziness, fevers, chills, or leg swelling. She did have a nosebleed today which is very unusual for her. She did not have any trauma or picking to it. Exam Narrative: General: Well developed well nourished patient in NAD HEENT: normocephalic Neck: supple Neuro: Alert and oriented x4. CN 2-12 intact. 5/5 strength in UE and LE CV:RRR with systolic murmur Resp:very mild crackles at baseline. No wheezing or rhonchi. No conversational dyspnea Abd: Soft, obese and non distended. No pain to palpation. Positive bowel sounds Extremities: No swelling, erythema, or pain to palpation. Objective Data Vital Signs Vital Signs: Vital Signs - 24 hr
[2021-08-22 16:58] LABS: Glucose Point of Care 90 mg/dl (65-105)
[2021-08-22] MEDS: ROSUVASTATIN 10 MG TABLET 20 MG PO (22:05)
[2021-08-22] MEDS: traZODone HCL 50 MG TABLET 300 MG PO (22:06)
[2021-08-22 22:15] LABS: Glucose Point of Care 83 mg/dl (65-105)
[2021-08-23] VITALS (11 sets, daily range): BP systolic 135–139; BP diastolic 47–52; PULSE 44–65; RESP 16–22; TEMP 36.6–37; O2SAT 96–98
[2021-08-23] MEDS: SODIUM CHLORIDE 0.9% IV 1,000 ML 125 ML IV CONT ×3 (00:43→20:18)
[2021-08-23 06:15] LABS: Hematocrit 28.9 % (37.0-47.0); Hemoglobin 9.2 g/dL (12.0-15.0); Mean Corpuscular HGB Conc 31.8 g/dl (32-36); Mean Corpuscular Hemoglobin 29.9 pg (26-34); Mean Corpuscular Volume 93.8 fl (80-100); Platelet Count Result 186 k/mm3 (150-375); Red Blood Count 3.08 M/mm3 (4.2-5.4); Red Cell Distribution Width 14.2 % (11.5-14.5); White Blood Count 5.8 K/mm3 (4.5-10.0)
[2021-08-23] MEDS: LEVOTHYROXINE SODIUM 125 MCG TABLET PO (06:33)
[2021-08-23] MEDS: LORazepam (*CRX) 0.5 MG TABLET PO ×3 (06:33→21:40)
[2021-08-23 06:34] LABS: Alanine Aminotransferase 34 U/L (4-35); Albumin Level 3.6 g/dL (3.5-5.1); Alkaline Phosphatase 391 U/L (38-126); Anion Gap 10 mmol/L (8-16); Aspartate Amino Transferase 52 U/L (14-36); Bilirubin,Total 0.5 mg/dL (0.2-1.3); Blood Urea Nitrogen 15 mg/dL (7-17); Calcium 8.4 mg/dL (8.4-10.2); Carbon Dioxide 16 mmol/L (22-30); Chloride 112 mmol/L (98-107); Estimated Glomerular Filt Rate 37; Glucose 96 mg/dL (65-110); Sodium 138 mmol/L (137-145)
[2021-08-23 06:37] LABS: Glucose Point of Care 92 mg/dl (65-105)
[2021-08-23] MEDS: UMECLIDINIUM/VILANTEROL 62.5-25 MCG ELLIPTA 1 PUFF INHALATION (07:56)
--- NOTE | 2021-08-23 08:00 | WPDGIPROGNO ---
Progress Note: A&P Assessment and Plan (1) Occult blood in stools: Code(s): R19.5 - Other fecal abnormalities Status: Acute Assessment and Plan: Occult blood in stool. No significant findings evident. Patient did have hemorrhoids. Lower GI x-ray reveals only diverticular disease. No additional workup planned at this time. Follow-up CBC will be indicated. Anticipate discharge today. (2) Symptomatic anemia: Code(s): D64.9 - Anemia, unspecified Status: Acute Assessment and Plan: Patient with significant anemia at the time of presentation. Suspicion for GI blood loss because of occult blood found in stool. No significant lesions found on GI series. It is possible she may have some component of anemia related to her chronic kidney disease. Plan for outpatient CBC in several weeks to document stability of her hemoglobin. (3) Acute renal failure superimposed on stage 3 chronic kidney disease: Qualifiers: Acute renal failure type: unspecified Chronic kidney disease stage 3 subtype: stage 3a (GFR 45-59) Qualified Code(s): N17.9 - Acute kidney failure, unspecified; N18.31 - Chronic kidney disease, stage 3a Code(s): N17.9 - Acute kidney failure, unspecified; N18.30 - Chronic kidney disease, stage 3 unspecified Status: Acute (4) Cirrhosis: Qualifiers: Hepatic cirrhosis type: unspecified hepatic cirrhosis Ascites presence: without ascites Qualified Code(s): K74.60 - Unspecified cirrhosis of liver Code(s): K74.60 - Unspecified cirrhosis of liver Status: Acute Assessment and Plan: Patient with underlying cirrhosis of the liver this has been noted for several years. Initially felt to be ZIEGLER. She has previously had an elevated ANTHONY level. Repeat ANTHONY is pending at this time. She may benefit from referral to hepatology service at [facility]. Alternatively she can follow up in the GI clinic with myself or Dr. Moreno who she has seen in the past. Subjective Date/time seen: 08/23/21 08:00 Patient feels much better today. Has had no obvious bleeding. She denies abdominal pain. Tolerating diet. Review of Systems Review of Systems: All systems reviewed & are unremarkable except as noted in HPI and below Exam Narrative: Physical exam reveals patient to be alert. Vital signs are stable. HEENT exam is unremarkable. Patient is anicteric. Lungs are clear. Heart without murmur. Abdomen bowel sounds present soft nontender with no organomegaly. Extremities without clubbing cyanosis or edema. Objective Data Vital Signs Vital Signs: Vital Signs - 24 hr 08/22/21 08:57 08/22/21 09:00 08/22/21 11:02 Temperature 99.5 F Pulse Rate 58 L 63 61 Respiratory Rate 22 H Blood Pressure 152/42 H Pulse Oximetry 95 61 L 08/22/21 11:47 08/22/21 11:57 08/22/21 12:00 Temperature Pulse Rate 51 L 55 L 54 L Respiratory Rate 17 Blood Pressure 105/31 L 107/32 L Pulse Oximetry 99 98 08/22/21 12:07 08/22/21 16:00 08/22/21 20:00 Temperature 97.9 F Pulse Rate 57 L 56 L 51 L Respiratory Rate 21 H 16 20 Blood Pressure 136/41 L 140/44 L Pulse Oximetry 100 98 100 08/22/21 20:32 08/22/21 22:05 08/22/21 23:49 Temperature 97.7 F 97.6 F Pulse Rate 54 L 54 L 55 L Respiratory Rate 20 20 Blood Pressure 151/48 H 138/50 L Pulse Oximetry 100 100 08/23/21 00:00 08/23/21 04:00 08/23/21 04:54 Temperature 97.9 F Pulse Rate 65 44 L 51 L Respiratory Rate 20 Blood Pressure 135/48 L Pulse Oximetry 96 Intake/Output Intake/Output: Intake & Output 08/20/21 08/21/21 08/22/21 08/23/21 23:59 23:59 23:59 23:59 Intake Total 1000 3455 2470 1390 Output Total 900 Balance 1000 2555 2470 1390 Meds/Results Medications: Active Medications Generic Name Dose Route Start Last Admin Trade Name Freq PRN Reason Stop Dose Admin Amlodipine Besylate 10 mg 08/21/21 09:00 08/22/21 08:56 Amlodipine Besylate 5 Mg Tablet PO
--- NOTE | 2021-08-23 08:12 | PM.IMPN ---
Progress Note: A&P Assessment and Plan (1) Acute GI bleeding: Code(s): K92.2 - Gastrointestinal hemorrhage, unspecified Status: Acute (2) Symptomatic anemia: Code(s): D64.9 - Anemia, unspecified Status: Acute Assessment and Plan: As above (3) Cirrhosis: Qualifiers: Ascites presence: without ascites Hepatic cirrhosis type: unspecified hepatic cirrhosis Qualified Code(s): K74.60 - Unspecified cirrhosis of liver Code(s): K74.60 - Unspecified cirrhosis of liver Status: Acute Assessment and Plan: Noted in the past back to [address] Oro/Tiffanie diaz for this in the hospital -hep panel neg -He did a work up at that time and kezia was abnormal 1:640 with negative antichondrial ab and antismooth muscle. Autoimmune? -negative alpha 1 antitrypsin and creulosplasmin in the past -will defer to GI (4) Acute renal failure superimposed on stage 3 chronic kidney disease: Qualifiers: Acute renal failure type: unspecified Chronic kidney disease stage 3 subtype: stage 3a (GFR 45-59) Qualified Code(s): N17.9 - Acute kidney failure, unspecified; N18.31 - Chronic kidney disease, stage 3a Code(s): N17.9 - Acute kidney failure, unspecified; N18.30 - Chronic kidney disease, stage 3 unspecified Status: Acute Assessment and Plan: Chronic and at baseline (5) Hyperkalemia: Code(s): E87.5 - Hyperkalemia Status: Acute Assessment and Plan: Resolved (6) Esophageal varices: Code(s): I85.00 - Esophageal varices without bleeding Status: Acute Assessment and Plan: Noted on EGD -propanolol started -heart rate has been stable (7) Type 2 diabetes mellitus: Code(s): E11.9 - Type 2 diabetes mellitus without complications Status: Acute (8) Hypertension: Code(s): I10 - Essential (primary) hypertension Status: Acute (9) Elevated TSH: Code(s): R79.89 - Other specified abnormal findings of blood chemistry Status: Acute Assessment and Plan: 5.650 on admission -T4 normal Additional Plan 75yo lady with DM2 HTN CKD presenting 08/21 following anemia noted on outpatient labs, 6.3 hgb here. Barium enema showing diverticulosis. EGD 08/21 also showing gastritis and nonbleeding varisces, though noted neither of these realistically account for severity of anemia. Colonoscopy showing uncomplicated nonbleeding internal hemorrhoids. Diverticla also noted to not be actively bleeding. Also noted to have liver cirrhosis for which she is now on propranolol. Outpatient followup with GI or hepatology. [place]ongap acidosis - related to CKD potentially. Starting Sodium Bicarb tablets. Hemoglobin between 9-10 for the last 3 days or so. Stable for discharge hopefully tomorrow morning. Will obtain a couple anemia labs incl b12 folate iron level and reticulocyte & haptoglobin. Time Spent With Patient Time with patient: less than 15 minutes Subjective Date/time seen: 08/23/21 08:12 no acute complaints resting comfortably no melanotic stools since yesterday Review of Systems Review of Systems: All systems reviewed & are unremarkable except as noted in HPI and below Exam Const: General: no acute distress Neck: Neck: no JVD Resp: Effort & Inspection: normal respiratory effort Auscultation: clear to auscultation bilaterally Cardio: Rate: regular rate Rhythm: regular rhythm GI: GI Palp: Yes Soft to palpation and No Tenderness to palpation present (GI) Objective Data Vital Signs Vital Signs: Vital Signs - 24 hr 08/22/21 08:57 08/22/21 09:00 08/22/21 11:02 Temperature 99.5 F Pulse Rate 58 L 63 61 Respiratory Rate 22 H Blood Pressure 152/42 H Pulse Oximetry 95 61 L 08/22/21 11:47 08/22/21 11:57 08/22/21 12:00 Temperature Pulse Rate 51 L 55 L 54 L Respiratory Rate 17 Blood Pressure 105/31 L 107/32 L Pulse Oximetry 99 98
[2021-08-23] MEDS: ESCITALOPRAM OXALATE 5 MG TABLET PO (08:21)
[2021-08-23] MEDS: PROPRANOLOL HCL 10 MG TABLET PO ×2 (08:21→20:18)
[2021-08-23] MEDS: GABAPENTIN 300 MG CAPSULE 900 MG PO ×3 (08:21→16:06)
[2021-08-23] MEDS: amLODIPine BESYLATE 5 MG TABLET 10 MG PO (08:21)
[2021-08-23] MEDS: PANTOPRAZOLE SODIUM IV 40 MG VIAL IV PUSH ×2 (08:23→20:15)
[2021-08-23 08:54] LABS: Immature Reticulocyte Fraction 16.9 % (3.0-15.9); Reticulocyte Hemoglobin Conten 29.7 pg (28.2-35.7); Reticulocyte Percent 2.87 % (0.7-4.3)
[2021-08-23 09:05] LABS: Lactate Dehydrogenase 423 U/L (313-618)
[2021-08-23 09:12] LABS: Iron 47 ug/dL (37-170)
[2021-08-23 09:22] LABS: Percent Iron Saturation 14 % (20-50)
--- NOTE | 2021-08-23 11:01 | P.CDI_ITS ---
CDI Query Clarification Request -Symptomatic anemia has been documented -On arrival, patient stated she was having dark tarry stools and Patient had Hemoccult-positive stool in the ER that was frankly melenic documented in H&P -08/20 H&H 6.3/20.2 2 units of blood transfused 08/21 H&H 10.3/.4 Please further specify type and acuity of anemia: * Acute blood loss anemia * Chronic blood loss anemia * Acute on chronic blood loss anemia * Acute anemia of other cause, specify * Chronic anemia of other cause, specify * Acute on chronic anemia of other cause, specify * Other * Unable to determine
--- NOTE | 2021-08-23 11:01 | WPDCDIQUERY2 ---
CDI Query Clarification Request -Symptomatic anemia has been documented -On arrival, patient stated she was having dark tarry stools and Patient had Hemoccult-positive stool in the ER that was frankly melenic documented in H&P -08/20 H&H 6.3/20.2 2 units of blood transfused 08/21 H&H 10.3/.4 Please further specify type and acuity of anemia: Acute blood loss anemia Chronic blood loss anemia Acute on chronic blood loss anemia Acute anemia of other cause, specify Chronic anemia of other cause, specify Acute on chronic anemia of other cause, specify Other Unable to determine
[2021-08-23 11:50] LABS: Glucose Point of Care 114 mg/dl (65-105)
--- NOTE | 2021-08-23 13:47 | WPDANESPN ---
Anes - Prog Note Post-Op Date/Time: 08/23/21 13:47 Cardiovascular status: normal Respiratory status: normal Airway patency: baseline Mental status: baseline Post-Op hydration status: normal Vital Signs: Last Vital Signs Temp 36.6 C 08/23/21 04:54 Pulse 61 08/23/21 08:21 Resp 20 08/23/21 04:54 BP 135/48 L 08/23/21 04:54 Pulse Ox 96 08/23/21 04:54 Pain Score (VAS): no complaints I/O: Intake & Output 08/22/21 08/23/21 08/23/21 23:59 07:59 15:59 Intake Total 270 1390 1120 Balance 270 1390 1120 Laboratory Tests 08/23/21 05:14 08/23/21 05:14 08/22/21 08/22/21 08/23/21 16:54 22:12 05:14 WBC 5.8 RBC 3.08 L Hgb 9.2 L Hct 28.9 L MCV 93.8 MCH 29.9 MCHC 31.8 L RDW 14.2 Plt Count 186 MPV 10.0 Absolute Retic Percent Retic Immature Retic Fraction Retic Hgb Content Haptoglobin Sodium Potassium Chloride Carbon Dioxide Anion Gap BUN Creatinine Estim Creat Clear Calc Estimated GFR Glucose POC Capillary Glucose 90 83 Calcium Iron TIBC % Saturation Total Bilirubin Direct Bilirubin AST ALT Alkaline Phosphatase Lactate Dehydrogenase Total Protein Albumin Vitamin B12 Folate 08/23/21 08/23/21 08/23/21 05:14 06:33 08:37 WBC RBC Hgb Hct MCV MCH MCHC RDW Plt Count MPV Absolute Retic 0.10 L Percent Retic 2.87 Immature Retic Fraction 16.9 H Retic Hgb Content 29.7 Haptoglobin Sodium 138 Potassium 4.0 Chloride 112 H Carbon Dioxide 16 L Anion Gap 10 BUN 15 Creatinine 1.40 H Estim Creat Clear Calc Not Reportable Estimated GFR 37 L Glucose 96 POC Capillary Glucose 92 Calcium 8.4 Iron TIBC % Saturation Total Bilirubin 0.5 Direct Bilirubin 0.0 AST 52 H ALT 34 Alkaline Phosphatase 391 H Lactate Dehydrogenase Total Protein 7.0 Albumin 3.6 Vitamin B12 Folate 08/23/21 08/23/21 08/23/21 08:37 08:37 08:37 WBC RBC Hgb Hct MCV MCH MCHC RDW Plt Count MPV Absolute Retic Percent Retic Immature Retic Fraction Retic Hgb Content Haptoglobin Pending Sodium Potassium Chloride Carbon Dioxide Anion Gap BUN Creatinine Estim Creat Clear Calc Estimated GFR Glucose POC Capillary Glucose Calcium Iron 47 TIBC 339 % Saturation 14 L Total Bilirubin Direct Bilirubin AST ALT Alkaline Phosphatase Lactate Dehydrogenase 423 Total Protein Albumin Vitamin B12 389.0 Folate 8.0 08/23/21 11:46 WBC RBC Hgb Hct MCV MCH MCHC RDW Plt Count MPV Absolute Retic Percent Retic Immature Retic Fraction Retic Hgb Content Haptoglobin Sodium Potassium Chloride Carbon Dioxide Anion Gap BUN Creatinine Estim Creat Clear Calc Estimated GFR Glucose POC Capillary Glucose 114 H Calcium Iron TIBC % Saturation Total Bilirubin Direct Bilirubin AST ALT Alkaline Phosphatase Lactate Dehydrogenase Total Protein Albumin Vitamin B12 Folate Post-procedural complaints: none Patient Feedback: Patient satisfied with anesthetic care.
[2021-08-23] MEDS: SODIUM BICARBONATE TAB 650 MG TABLET PO ×2 (16:06→16:07)
[2021-08-23] MEDS: FERROUS SULFATE 324 MG TABLET PO (16:06)
[2021-08-23 16:19] LABS: Glucose Point of Care 86 mg/dl (65-105)
[2021-08-23] MEDS: ROSUVASTATIN 10 MG TABLET 20 MG PO (20:17)
[2021-08-23] MEDS: traZODone HCL 50 MG TABLET 300 MG PO (20:17)
[2021-08-23 20:41] LABS: Glucose Point of Care 138 mg/dl (65-105)
[2021-08-23] MEDS: BISACODYL 10 MG SUPPOSITORY RECTAL (21:40)
[2021-08-24] VITALS: PULSE 53
[2021-08-24 04:00] VITALS: PULSE 59
[2021-08-24 05:23] VITALS: BP 145/68; PULSE 57; RESP 20; TEMP 36.6; O2SAT 99
[2021-08-24] MEDS: SODIUM CHLORIDE 0.9% IV 1,000 ML 125 ML IV CONT (05:44)
[2021-08-24] MEDS: LORazepam (*CRX) 0.5 MG TABLET PO ×2 (05:44→12:24)
[2021-08-24] MEDS: LEVOTHYROXINE SODIUM 125 MCG TABLET PO (05:44)
[2021-08-24 05:47] LABS: Basophils Absolute Auto 0.1 K/mm3 (0.0-0.1); Eosinophils Absolute Auto 0.1 K/mm3 (0-0.3); Eosinophils Percent Auto 2.5 % (0-4.4); Hematocrit 28.1 % (37.0-47.0); Hemoglobin 9.2 g/dL (12.0-15.0); Immature Granulocyte Absolute 0.03 K/mm3 (0.00-0.031); Immature Granulocyte Percent A 0.6 % (0-0.5); Lymphocytes Absolute Auto 0.99 K/mm3 (0.9-3.2); Lymphocytes Percent Auto 19.1 % (18.3-44.2); Mean Corpuscular HGB Conc 32.7 g/dl (32-36); Mean Corpuscular Hemoglobin 29.9 pg (26-34); Mean Corpuscular Volume 91.2 fl (80-100); Mean Platelet Volume 9.8 fl (7.4-10.4); Monocytes Absolute Auto 0.4 K/mm3 (0.1-0.6); Monocytes Percent Auto 7.3 % (2.6-8.5); Neutrophils Absolute Auto 3.6 K/mm3 (1.3-6.7); Neutrophils Percent Auto 69.5 % (45.5-73.1); Platelet Count Result 173 k/mm3 (150-375); Red Blood Count 3.08 M/mm3 (4.2-5.4); Red Cell Distribution Width 14.2 % (11.5-14.5); White Blood Count 5.2 K/mm3 (4.5-10.0)
[2021-08-24 06:01] LABS: Alanine Aminotransferase 30 U/L (4-35); Albumin Level 3.6 g/dL (3.5-5.1); Alkaline Phosphatase 374 U/L (38-126); Anion Gap 10 mmol/L (8-16); Aspartate Amino Transferase 50 U/L (14-36); Bilirubin,Total 0.4 mg/dL (0.2-1.3); Blood Urea Nitrogen 14 mg/dL (7-17); Calcium 8.4 mg/dL (8.4-10.2); Carbon Dioxide 18 mmol/L (22-30); Chloride 113 mmol/L (98-107); Estimated Glomerular Filt Rate 40; Glucose 143 mg/dL (65-110); Magnesium 1.7 mg/dL (1.6-2.3); Phosphorus 2.5 mg/dL (2.5-4.5); Potassium 3.7 mmol/L (3.4-5.0); Sodium 141 mmol/L (137-145)
[2021-08-24 07:50] LABS: Glucose Point of Care 108 mg/dl (65-105)
[2021-08-24 08:00] VITALS: PULSE 63
[2021-08-24 08:08] VITALS: PULSE 59
[2021-08-24] MEDS: PROPRANOLOL HCL 10 MG TABLET PO (08:08)
[2021-08-24] MEDS: ESCITALOPRAM OXALATE 5 MG TABLET PO (08:08)
[2021-08-24] MEDS: amLODIPine BESYLATE 5 MG TABLET 10 MG PO (08:08)
[2021-08-24] MEDS: SODIUM BICARBONATE TAB 650 MG TABLET PO (08:08)
[2021-08-24] MEDS: FERROUS SULFATE 324 MG TABLET PO (08:08)
[2021-08-24] MEDS: PANTOPRAZOLE SODIUM IV 40 MG VIAL IV PUSH (08:10)
[2021-08-24] MEDS: GABAPENTIN 300 MG CAPSULE 900 MG PO ×2 (08:10→12:24)
[2021-08-24 12:00] VITALS: PULSE 63
[2021-08-24 12:06] LABS: Glucose Point of Care 151 mg/dl (65-105)
--- NOTE | 2021-08-24 12:53 | PM.DS ---
DS: Admitting Diagnosis Discharge Date August 24, 2021 Admitting Diagnosis melanotic stool DS: Discharge Diagnosis Discharge Diagnosis (1) Occult blood in stools: Code(s): R19.5 - Other fecal abnormalities Status: Acute (2) Cirrhosis: Qualifiers: Ascites presence: without ascites Hepatic cirrhosis type: unspecified hepatic cirrhosis Qualified Code(s): K74.60 - Unspecified cirrhosis of liver Code(s): K74.60 - Unspecified cirrhosis of liver Status: Acute (3) Upper GI bleed: Code(s): K92.2 - Gastrointestinal hemorrhage, unspecified Status: Acute (4) Esophageal varices: Code(s): I85.00 - Esophageal varices without bleeding Status: Acute DS: Summary Hospital Course Hospital Course: Patient is a 75-year-old lady with aortic stenosis, diabetes, hypertension and chronic kidney disease presenting to [facility] for abnormal labs identified as an outpatient. Specifically she had a hemoglobin of 6.3. She was transfused on admission. There were other electrolyte abnormalities including a potassium of 6.1 which were rectified. Unfortunately we have not been able to identify a clear source of bleeding. She does note that she has been having intermittent melanotic stools possibly, so there are is some concern for upper GI bleed. However EGD was done which showed some gastritis and esophageal varices, however no signs of active bleeding from either one. Colonoscopy was also done which showed some diverticulosis, and this was followed up with a barium enema, however conclusion from GI Service is that none nothing found in the lower GI tract explains bleeding either. as such they are recommending a discharge with lab work later on this week, to ensure hemoglobin stable around 9-10. In the meantime, hold the aspirin, can resume once found to be stable later this week and after discussing with primary care. She may have some chronic anemia, which would explain this low baseline hemoglobin. B12 and folate are normal, however iron is on the lower side, so we will give her iron supplementation. Of note, she has CKD 3, which would explain chronic anemia, Especially since it is normocytic. He was also started on sodium bicarb tablets for the CKD. Also of note, she has liver cirrhosis, so we are starting her on propranolol. Lab tests have been ordered, can follow results as an outpatient. She should see GI outpatient for this, in addition to primary care. Diabetes and psychiatric medications unchanged. Status at Discharge Functional status at discharge: uses cane/walker Time Spent with Patient Time attestation: Total time spent providing and/or coordinating discharge services: Time spent: Less than 30 minutes Exam Const: General: no acute distress Neck: Neck: no JVD Resp: Effort & Inspection: normal respiratory effort Auscultation: clear to auscultation bilaterally Cardio: Rate: regular rate Rhythm: regular rhythm GI: GI Palp: Yes Soft to palpation and No Tenderness to palpation present (GI) DS: Data Data Completed and Pending Labs on day of discharge: Labs from last 24 hours 08/24/21 08/24/21 08/24/21 12:01 07:46 05:19 WBC RBC Hgb Hct MCV MCH MCHC RDW Plt Count MPV Immature Gran % (Auto) Neut % (Auto) Lymph % (Auto) Wirt % (Auto) Eos % (Auto) Baso % (Auto) Lymph # (Auto) Wirt # (Auto) Eos # (Auto) Baso # (Auto) Abs Immat Gran (auto) Absolute Neuts (auto) Absolute Nucleated RBC Nucleated RBC % Sodium 141 Potassium 3.7 Chloride 113 H Carbon Dioxide 18 L Anion Gap 10 BUN 14 Creatinine 1.30 H Estim Creat Clear Calc Not Reportable Estimated GFR 40 L Glucose 143 H POC Capillary Glucose 151 H 108 H Calcium 8.4 Phosphorus 2.5 Magnesium 1.7 Total Bilirubin 0.4 AST 50 H ALT 30 Alkaline Phosphatase 374 H T
[2021-08-25 18:40] LABS: Hepatitis A Antibody Total Nonreactive (Nonreactive); Hepatitis B Core Ab Total Nonreactive (Nonreactive)
[2021-08-26 07:48] LABS: Ceruloplasmin 40 mg/dL (18-53)
[2021-08-26 11:07] LABS: Mitochondrial (M2) Ab (IgG) <=20.0 U (<=20.0)
[2021-08-27 05:21] LABS: Anti Nuclear Antibody Titer >=1:1280 (Negative)
[2021-08-27 11:14] LABS: Haptoglobin 180 mg/dL (43-212)
== END 2021-08-24 14:13 | disposition home or self-care (01) | DRG 378 ==
LOC: ANHED 21:13 → ANH2MED 22:15
PROVIDERS: Internal Medicine Gastroenterology; Physician Assistant; Admitting Provider Internal Medicine; Emergency Provider Emergency Medicine; PCP Internal Medicine; Visit Provider Internal Medicine
PROC: 0DJ08ZZ Inspection of Upper Intestinal Tract, Via Natural or Artificial Opening Endoscopic (ICD-10-PCS; CPT 43235; principal; 2021-08-21 11:00)
PROC: 0DJD8ZZ Inspection of Lower Intestinal Tract, Via Natural or Artificial Opening Endoscopic (ICD-10-PCS; CPT 45378; principal; 2021-08-22 11:30)
DX: K92.1 Melena (principal); N17.9 Acute kidney failure, unspecified; K74.60 Unspecified cirrhosis of liver; I85.10 Secondary esophageal varices without bleeding; N18.31 Chronic kidney disease, stage 3a; D63.1 Anemia in chronic kidney disease; E87.5 Hyperkalemia; K29.00 Acute gastritis without bleeding; K57.30 Diverticulosis of large intestine without perforation or abscess without bleeding; K64.8 Other hemorrhoids; R79.89 Other specified abnormal findings of blood chemistry; I35.0 Nonrheumatic aortic (valve) stenosis; E11.42 Type 2 diabetes mellitus with diabetic polyneuropathy; E11.22 Type 2 diabetes mellitus with diabetic chronic kidney disease; I12.9 Hypertensive chronic kidney disease with stage 1 through stage 4 chronic kidney disease, or unspecified chronic kidney disease; K21.9 Gastro-esophageal reflux disease without esophagitis; E78.5 Hyperlipidemia, unspecified; F31.9 Bipolar disorder, unspecified; J44.9 Chronic obstructive pulmonary disease, unspecified; Z66 Do not resuscitate; Z96.1 Presence of intraocular lens; Z86.73 Personal history of transient ischemic attack (TIA), and cerebral infarction without residual deficits; Z98.42 Cataract extraction status, left eye; Z98.41 Cataract extraction status, right eye
CPT/HCPCS: 36415; 36430; 71046; 74018; 74176; 74280; 80048; 80053; 80069; 80074; 80076; 81001; 82390; 82607; 82728; 82746; 82948; 83010; 83520; 83540; 83550; 83615; 83735; 83880; 84100; 84439; 84443; 85014; 85018; 85025; 85027; 85046; 85610; 85730; 86038; 86039; 86704; 86705; 86706; 86708; 86709; 86803; 86850; 86900; 86901; 86920; 87340; 93005; 94640; 97161; 97165; 99285; A9270; C9113; J0610; J2001; J2704; J7030; J7050; J7120; P9016

== ENCOUNTER 2021-08-30 14:00 | Outpatient (CLI) | payer MEDICARE, SELFPAY ==
[2021-08-30 14:22] LABS: Hematocrit 30.2 % (37.0-47.0); Hemoglobin 9.5 g/dL (12.0-15.0)
[2021-08-30 14:33] LABS: Anion Gap 12 mmol/L (8-16); Blood Urea Nitrogen 15 mg/dL (7-17); Calcium 8.4 mg/dL (8.4-10.2); Carbon Dioxide 19 mmol/L (22-30); Chloride 112 mmol/L (98-107); Estimated Glomerular Filt Rate 31; Glucose 130 mg/dL (65-110); Potassium 3.9 mmol/L (3.4-5.0); Sodium 143 mmol/L (137-145)
== END 2021-08-30 14:01 | disposition home or self-care (01) ==
PROVIDERS: PCP Internal Medicine; Visit Provider Physician Assistant
DX: E87.5 Hyperkalemia (principal); K92.2 Gastrointestinal hemorrhage, unspecified
CPT/HCPCS: 36415; 80048; 85014; 85018

== ENCOUNTER 2021-09-01 20:30 | Observation (INO) | payer MEDICARE, SELFPAY ==
[2021-09-01] VITALS (7 sets, daily range): BP systolic 151–166; BP diastolic 52–55; PULSE 61–69; RESP 19–23; TEMP 36.9; O2SAT 94–98
--- NOTE | ~2021-09-01 | XR_ITS ---
EXAMINATION: XR chest 2V DATE: 09/01/2021 21:11 INDICATION: Shortness of breath TECHNIQUE: PA and lateral views of the chest are obtained. COMPARISON: 08/20/2021 FINDINGS: Diffuse interstitial opacities have developed, worse in the mid and lower lung zones. There are small pleural effusions. Cardiomegaly is noted. There is moderate thoracic spondylosis. IMPRESSION: 1. Cardiomegaly with mild to moderate pulmonary edema. 2. Small pleural effusions. Reviewed, dictated and finalized at location A.
--- NOTE | 2021-09-01 20:32 | ECG_ITS ---
Measurements Intervals [place] Rate: 65 P: 48 [place]: 166 QRS: -49 QRSD: 144 T: 30 QT: 455 QTc: 474 Interpretive Statements SINUS RHYTHM LEFT AXIS DEVIATION RIGHT BUNDLE BRANCH BLOCK CONSIDER INFERIOR INFARCT, AGE INDETERMINATE BASELINE WANDER- V4-V6 ABNORMAL ECG Electronically Signed On 09-02-2021 5:45:30 CDT by George Moyer D.O.
[2021-09-01 21:01] LABS: Basophils Absolute Auto 0.1 K/mm3 (0.0-0.1); Basophils Percent Auto 0.7 % (0.2-1.2); Eosinophils Absolute Auto 0.2 K/mm3 (0-0.3); Eosinophils Percent Auto 2.8 % (0-4.4); Hematocrit 30.8 % (37.0-47.0); Hemoglobin 9.7 g/dL (12.0-15.0); Immature Granulocyte Absolute 0.07 K/mm3 (0.00-0.031); Lymphocytes Absolute Auto 1.22 K/mm3 (0.9-3.2); Lymphocytes Percent Auto 18.3 % (18.3-44.2); Mean Corpuscular HGB Conc 31.5 g/dl (32-36); Mean Corpuscular Hemoglobin 29.3 pg (26-34); Mean Corpuscular Volume 93.1 fl (80-100); Mean Platelet Volume 10.9 fl (7.4-10.4); Monocytes Absolute Auto 0.4 K/mm3 (0.1-0.6); Monocytes Percent Auto 5.2 % (2.6-8.5); Neutrophils Absolute Auto 4.8 K/mm3 (1.3-6.7); Platelet Count Result 142 k/mm3 (150-375); Red Blood Count 3.31 M/mm3 (4.2-5.4); Red Cell Distribution Width 15.3 % (11.5-14.5); White Blood Count 6.7 K/mm3 (4.5-10.0)
[2021-09-01 21:17] LABS: Anion Gap 13 mmol/L (8-16); Blood Urea Nitrogen 18 mg/dL (7-17); Calcium 8.6 mg/dL (8.4-10.2); Carbon Dioxide 18 mmol/L (22-30); Chloride 110 mmol/L (98-107); Estimated Glomerular Filt Rate 34; Glucose 179 mg/dL (65-110); Potassium 4.2 mmol/L (3.4-5.0); Sodium 141 mmol/L (137-145)
--- NOTE | 2021-09-01 23:16 | ED.SOB ---
HPI - SOB/Dyspnea General Chief Complaint: Shortness of Breath/Dyspnea Stated Complaint: SOB, leg swelling Time Seen by Provider: 09/01/21 22:55 Source: RN notes reviewed History of Present Illness HPI Narrative: Patient presents emergency room from home for shortness of breath. States symptoms began approximately 3 days ago. Patient states shortness of breath is worse with activity and laying down flat states has been associated with swelling her bilateral lower legs. She denies any history of CHF or COPD she denies any fevers or chills, chest pain abdominal pain or any other symptoms Related Data Home Medications Medication Instructions Recorded Confirmed asenapine maleate [Saphris] 5 mg SUBLINGUAL Q12H 01/04/20 08/21/21 acetaminophen 650 mg PO Q4H PRN 01/11/20 08/21/21 aspirin 81 mg PO DAILY 08/21/21 08/21/21 escitalopram oxalate 5 mg PO DAILY 08/21/21 08/21/21 levothyroxine 125 mcg PO DAILY 08/21/21 08/21/21 lorazepam 0.5 mg PO Q8H 08/21/21 08/21/21 rosuvastatin 20 mg PO HS 08/21/21 08/21/21 trazodone 300 mg PO HS 08/21/21 08/21/21 Allergies Allergy/AdvReac Type Severity Reaction Status Date / Time alendronate sodium Allergy Unknown Unknown Verified 08/22/21 11:00 amantadine Allergy Unknown Unknown Verified 08/22/21 11:00 benztropine Allergy Unknown Unknown Verified 08/22/21 11:00 chlorpromazine Allergy Unknown Unknown Verified 08/22/21 11:00 levofloxacin Allergy Unknown Unknown Verified 08/22/21 11:00 Macrolide Antibiotics Allergy Unknown UNKNOWN Verified 08/22/21 11:00 REACTION mirtazapine Allergy Unknown Unknown Verified 08/22/21 11:00 Quinolones Allergy Unknown Unknown Verified 08/22/21 11:00 topiramate Allergy Unknown Unknown Verified 08/22/21 11:00 Review of Systems Review of Systems: Gen.: Denies fevers or chills ENT: Denies congestion Respiratory: Reports shortness of breath CV: Denies chest pain or palpitations GI: Denies abdominal pain nausea, emesis or diarrhea Musculoskeletal: Denies back pain or muscle pain Neuro: Denies numbness, tingling, weakness or focal weakness Skin: Denies rash Except as documented, all other systems reviewed and negative [facility] Past Medical History Medical History Anemia Anxiety Aortic stenosis Mild on echo May 2021 Arthritis Asthma Bipolar disorder Chronic kidney disease, stage III (moderate) Managed by Dr. Aquino COPD (chronic obstructive pulmonary disease) PFTs 06/28/2021: Moderate obstructive abnormality, moderate decreased diffusion capacity CVA (cerebrovascular accident) (~12/2019) Depression Diabetes mellitus Diabetic peripheral neuropathy Diastolic dysfunction Echocardiogram 05/2021: EF 65-70%, grade 1 diastolic dysfunction, E/E elevated, global longitudinal strain mildly abnormal, moderate left atrial enlargement, moderate aortic valve sclerosis, mild aortic valve stenosis with peak velocity 239, mean gradient 14, aortic valve area 1.7 to, mild aortic valve regurgitation, GERD (gastroesophageal reflux disease) HLD (hyperlipidemia) Hypertension Hypothyroidism IBS (irritable bowel syndrome) Osteoporosis Rectal polyp Type 2 diabetes mellitus Ulcer UTI (urinary tract infection) Surgical History Surgical History (Updated 08/21/21 @ 02:41 by Catina Leon DO) History of bladder surgery History of colonoscopy with polypectomy Most recent colonoscopy 01/2019 demonstrated colon spasm and diverticulosis performed by Dr. Moreno History of partial hysterectomy History of thyroidectomy Hx of section Hx of cholecystectomy Hx of tonsillectomy Status post cataract extraction of both eyes with insertion of intraocular lens Family History Family History Sibling Multiple sclerosis Father Acute myocardial infarction, Onset Age: 79 Cerebrovascular accident, Onset Age: 79 Mother Dementia Sibling Deceas
[2021-09-01] MEDS: FUROSEMIDE INJ 40 MG/4 ML VIAL IV PUSH (23:42)
[2021-09-01 23:43] LABS: INR 1.2; Prothrombin Time 14.6 Seconds (11.1-14.7)
[2021-09-01 23:44] LABS: Partial Thromboplastin Time 32.9 SECONDS (22.3-36.8)
--- NOTE | 2021-09-01 23:51 | PC.NURSE ---
Ambulated pt with O2 sat monitor. Pt sats to 97% on RA. Getting back into bed, pt's sats to 94% with expiratory wheezing. ED MD notified.
[2021-09-01 23:55] LABS: NT Pro B Type Natriuretic Pept 1640 pg/mL (5-100)
[2021-09-02] VITALS (24 sets, daily range): BP systolic 138–159; BP diastolic 50–62; PULSE 50–70; RESP 16–28; TEMP 36.2–37.6; O2SAT 93–99; BMI 31.4
[2021-09-02 00:04] LABS: Troponin I 0.014 ng/mL (0.000-0.034)
--- NOTE | 2021-09-02 00:49 | PM.IMHP ---
H&P: HPI History of Present Illness Date/Time: 09/02/21 00:49 Chief Complaint: Shortness of breath Narrative: This is a 75-year-old female with past medical history significant for osteoporosis, diastolic heart failure, anemia, former smoker hypertension, hepatic cirrhosis, COPD/emphysema, dyslipidemia, patient just recently discharged from [facility] where she had extensive workup for GI bleed she was found to have some diverticulosis. Patient presents today to the emergency room due to worsening shortness of breath ,she denies any cough or sputum production, she denies any fevers, chills, rigors, no nausea, no vomiting, no diarrhea ,no abdominal pain ,no leg swelling, no chest pain, no dizziness, no lightheadedness, no syncope or near syncope no PND ,no orthopnea. Preliminary workup was significant for elevated brain natriuretic peptide chest x-ray was significant for bilateral bases small pleural effusions cardiomegaly with mild pulmonary edema. Decision has been made to admit patient for further management evaluation and treatment. Review of Systems Review of Systems: Shortness of breath Constitutional: Constitutional: Denies chills, Denies fatigue, Denies fever(s), Denies malaise and Denies weakness Eyes: Eyes: Denies change in vision ENT: Denies dysphagia, Denies dizziness, Denies nasal congestion, Denies nasal discharge, Denies nasal obstruction and Denies odynophagia Cardiovascular: Cardiovascular: Denies chest pain at rest, Denies chest pain with activity, Denies edema, Denies irregular heart rhythm, Denies claudication, Denies leg edema, Denies lightheadedness, Denies radiating jaw, neck or arm pain, Denies palpitations, Reports dyspnea, Denies dyspnea on exertion and Denies orthopnea Respiratory: Respiratory: Denies cough and Denies wheezing Gastrointestinal: Gastrointestinal: Denies abdominal pain, Denies dyspepsia, Denies heartburn, Denies diarrhea, Denies nausea and Denies vomiting Genitourinary: Genitourinary: Reports no additional female genitourinary complaints Musculoskeletal: Musculoskeletal: Reports no additional musculoskeletal complaints Integumentary/Breasts: Skin/Breast: Reports system reviewed and no additional complaints, except as docu Neurologic: Reports system reviewed and no additional complaints, except as documented Psychiatric: Psychiatric: Reports no additional psychiatric complaints Endocrine: Endocrine: Reports no additional endocrine complaints Hematologic/Lymphatic: Hematologic/Lymphatic: Reports no additional hematologic/lymphatic complaints Allergic/Immunologic: Allergic/Immunologic: Reports no additional allergic/immunologic complaints [facility] Past Medical History Medical History (Updated 09/02/21 @ 04:51 by Jose Norris MD) Anemia Anxiety Aortic stenosis Mild on echo May 2021 Arthritis Asthma Bipolar disorder Chronic kidney disease, stage III (moderate) Managed by Dr. Aquino COPD (chronic obstructive pulmonary disease) PFTs 06/28/2021: Moderate obstructive abnormality, moderate decreased diffusion capacity CVA (cerebrovascular accident) (~12/2019) Depression Diabetes mellitus Diabetic peripheral neuropathy Diastolic dysfunction Echocardiogram 05/2021: EF 65-70%, grade 1 diastolic dysfunction, E/E elevated, global longitudinal strain mildly abnormal, moderate left atrial enlargement, moderate aortic valve sclerosis, mild aortic valve stenosis with peak velocity 239, mean gradient 14, aortic valve area 1.7 to, mild aortic valve regurgitation, GERD (gastroesophageal reflux disease) HLD (hyperlipidemia) Hypertension Hypothyroidism IBS (irritable bowel syndrome) Osteoporosis Rectal polyp Type 2 diabetes mellitus Ulcer UTI (urinary tract infection) Surgical History Surgical History (Updated 08/21/21 @ 02:41 by Catina Leon DO) History of bladder surgery History of colonoscopy with polypectomy Most recent colonoscopy 01/2019 demonstrated colon spasm and div
--- NOTE | 2021-09-02 00:54 | PC.NURSE ---
SBAR faxed to floor.
--- NOTE | 2021-09-02 02:23 | ADMGEN ---
This patient, Nisha Sigala, was admitted to 3 [facility] Surg Room 325-02 at 0130. Patient/family oriented to hospital policies and general routines including ID bracelet, bed and alarms, visiting hours, pain management, procedures, bathroom and other care routines, personal items, smoking policy, room service/diet, and visiting hours. Information on how to activate the Rapid Response Team has been discussed. Patient/Family are encouraged to report perceived risks to care and to ask questions if they do not understand what they are told or what they should do.
[2021-09-02 04:04] LABS: Troponin I 0.016 ng/mL (0.000-0.034)
[2021-09-02] MEDS: LORazepam (*CRX) 0.5 MG TABLET PO ×3 (06:46→21:36)
[2021-09-02 07:02] LABS: Troponin I 0.017 ng/mL (0.000-0.034)
[2021-09-02] MEDS: methylPREDNISolone SOD SUCC 125 MG VIAL 60 MG IV PUSH ×3 (07:44→21:43)
[2021-09-02] MEDS: LEVOTHYROXINE SODIUM 125 MCG TABLET PO (07:44)
[2021-09-02] MEDS: IPRATROPIUM BR 0.02% INH SOLN 0.5 MG/2.5 ML VIAL INHALATION ×3 (08:59→20:27)
[2021-09-02] MEDS: ALBUTEROL SULFATE NEB 2.5 MG/0.5 ML INH INHALATION ×3 (08:59→20:26)
[2021-09-02 09:03] LABS: Hematocrit 31.3 % (37.0-47.0); Hemoglobin 9.8 g/dL (12.0-15.0); Mean Corpuscular HGB Conc 31.3 g/dl (32-36); Mean Corpuscular Hemoglobin 29.5 pg (26-34); Mean Corpuscular Volume 94.3 fl (80-100); Mean Platelet Volume 11.1 fl (7.4-10.4); Platelet Count Result 152 k/mm3 (150-375); Red Blood Count 3.32 M/mm3 (4.2-5.4); Red Cell Distribution Width 15.5 % (11.5-14.5); White Blood Count 6.3 K/mm3 (4.5-10.0)
[2021-09-02] MEDS: UMECLIDINIUM/VILANTEROL 62.5-25 MCG ELLIPTA 1 PUFF INHALATION (09:07)
[2021-09-02 09:16] LABS: Anion Gap 12 mmol/L (8-16); Blood Urea Nitrogen 17 mg/dL (7-17); Calcium 9.6 mg/dL (8.4-10.2); Carbon Dioxide 22 mmol/L (22-30); Chloride 108 mmol/L (98-107); Estimated Glomerular Filt Rate 31; Glucose 143 mg/dL (65-110); Potassium 4.2 mmol/L (3.4-5.0); Sodium 142 mmol/L (137-145)
[2021-09-02] MEDS: GABAPENTIN 300 MG CAPSULE 900 MG PO ×3 (10:14→17:10)
[2021-09-02] MEDS: FERROUS SULFATE 324 MG TABLET PO (10:15)
[2021-09-02] MEDS: lamoTRIgine 25 MG TABLET 50 MG PO ×2 (10:15→17:11)
[2021-09-02] MEDS: PROPRANOLOL HCL 10 MG TABLET PO ×2 (10:15→21:41)
[2021-09-02] MEDS: lamoTRIgine 100 MG TABLET PO ×2 (10:15→17:11)
[2021-09-02] MEDS: amLODIPine BESYLATE 5 MG TABLET 10 MG PO (10:15)
[2021-09-02] MEDS: lisinopriL 10 MG TABLET PO (10:15)
[2021-09-02] MEDS: ESCITALOPRAM OXALATE 5 MG TABLET PO (10:16)
[2021-09-02] MEDS: PANTOPRAZOLE 40 MG TABLET PO ×2 (10:16→21:39)
[2021-09-02] MEDS: FUROSEMIDE INJ 40 MG/4 ML VIAL IV PUSH ×2 (10:16→17:10)
--- NOTE | 2021-09-02 14:39 | PM.IMPN ---
Progress Note: A&P Assessment and Plan (1) Acute on chronic diastolic heart failure: Code(s): I50.33 - Acute on chronic diastolic (congestive) heart failure Status: Acute Assessment and Plan: Presented with increased shortness breath. Echo May 2021 showed normal EF 65-70% with grade 1 diastolic dysfunction. Continue to diurese with Lasix 40 mg IV b.i.d. Monitor intake and output Weigh daily Heart healthy diet (2) COPD (chronic obstructive pulmonary disease): Code(s): J44.9 - Chronic obstructive pulmonary disease, unspecified Status: Acute Assessment and Plan: Noted to be wheezing on exam and felt to be consistent COPD exacerbation No wheezing on my exam today Continue with IV Solu-Medrol, taper to 60 mg q8h. Plan to transition to PO prednisone tomorrow Continue with albuterol and ipratropium nebs scheduled q6h Home Anoro Ellipta continued Not requiring supplemental O2 (3) Type 2 diabetes mellitus: Code(s): E11.9 - Type 2 diabetes mellitus without complications Status: Acute Assessment and Plan: Last A1c 3 months ago was 5.4 Diet controlled, she is not on any medications Continue Accu-Cheks, sliding scale insulin, hypoglycemic protocol during hospital stay (4) Chronic kidney disease, stage III (moderate): Code(s): N18.3 - Chronic kidney disease, stage 3 (moderate) Status: Acute Assessment and Plan: Renal function is consistent with baseline Continue with cautious diuresis, monitoring renal function closely (5) Bipolar disorder: Code(s): F31.9 - Bipolar disorder, unspecified Status: Acute Assessment and Plan: Mood is stable at this time Continue home medication regimen including lamotrigine and escitalopram Home asenapine is nonformulary. This can be continued if able to be brought from home. (6) Hypertension: Code(s): I10 - Essential (primary) hypertension Status: Acute Assessment and Plan: Blood pressure slightly elevated on presentation, improving with diuresis. Last BP 141/50 Continue amlodipine, lisinopril Continue with diuresis Monitor blood pressure trends closely and adjust medication regimen as needed Subjective Date/time seen: 09/02/21 14:39 Interval history: Date of service: 09/02/2021 Nisha Sigala is a 75-year-old female with a history CKD COPD, CVA, diabetes mellitus, hypertension, hyperlipidemia, hypothyroidism, and several other comorbidities who is seen in follow-up for CHF exacerbation. She is feeling better today and states that her shortness of breath is about 50% improved. She denies cough. Denies mucus production. She denies wheezing. No orthopnea or PND. She has been urinating quite frequently due to Lasix. She has been able to get up to the bedside commode without any difficulty. Denies dizziness or lightheadedness upon standing. She does note some looser stools that started today and reports about 2-3 loose stools. She feels her lower extremity swelling has improved. She denies fever, chills, nausea, vomiting. Appetite has been good. She has no additional concerns. Review of Systems Review of Systems: All systems reviewed & are unremarkable except as noted in HPI and below Exam Narrative: Ms Sigala is a well-nourished, well-appearing 75-year-old female who is lying supine in bed. She appears comfortable and is in NARD. Neuro: awake, alert and oriented x4, speech clear, no focal neuro deficits noted HEENMT: normocephalic, atraumatic, EOMI, sclerae anicteric, moist oral mucosa, tongue midline, nares patent Neck: supple, no lymphadenopathy Respiratory: clear to auscultation bilaterally without crackles, nonlabored breathing Cardio: regular rate, regular rhythm with S1-S2 Abdomen: nondistended, normoactive bowel sounds, soft, nontender to palpation Extremities: 2+ pedal edema, no erythema or tenderness to
[2021-09-02] MEDS: traZODone HCL 50 MG TABLET 300 MG PO (21:38)
[2021-09-02] MEDS: ROSUVASTATIN 10 MG TABLET 20 MG PO (21:43)
[2021-09-02] MEDS: ACETAMINOPHEN 325 MG TABLET 650 MG PO (21:53)
[2021-09-02 23:01] LABS: Glucose Point of Care 318 mg/dl (65-105)
[2021-09-02] MEDS: INSULIN ASPART (*BKC) 100 UNITS/ML SUB-Q (23:06)
[2021-09-03] VITALS (14 sets, daily range): BP systolic 122–126; BP diastolic 50–56; PULSE 50–66; RESP 14–20; TEMP 36.4–36.9; O2SAT 95–99
[2021-09-03] MEDS: ALBUTEROL SULFATE NEB 2.5 MG/0.5 ML INH INHALATION ×3 (02:50→14:30)
[2021-09-03] MEDS: IPRATROPIUM BR 0.02% INH SOLN 0.5 MG/2.5 ML VIAL INHALATION ×3 (02:50→14:31)
[2021-09-03] MEDS: LORazepam (*CRX) 0.5 MG TABLET PO ×2 (06:18→13:22)
[2021-09-03] MEDS: LEVOTHYROXINE SODIUM 125 MCG TABLET PO (06:19)
[2021-09-03 06:23] LABS: Basophils Percent Auto 0.2 % (0.2-1.2); Hematocrit 27.2 % (37.0-47.0); Hemoglobin 8.8 g/dL (12.0-15.0); Immature Granulocyte Absolute 0.06 K/mm3 (0.00-0.031); Lymphocytes Absolute Auto 0.98 K/mm3 (0.9-3.2); Lymphocytes Percent Auto 15.6 % (18.3-44.2); Mean Corpuscular HGB Conc 32.4 g/dl (32-36); Mean Corpuscular Volume 89.8 fl (80-100); Mean Platelet Volume 11.4 fl (7.4-10.4); Monocytes Absolute Auto 0.1 K/mm3 (0.1-0.6); Monocytes Percent Auto 1.8 % (2.6-8.5); Neutrophils Absolute Auto 5.1 K/mm3 (1.3-6.7); Neutrophils Percent Auto 81.4 % (45.5-73.1); Platelet Count Result 142 k/mm3 (150-375); Red Blood Count 3.03 M/mm3 (4.2-5.4); Red Cell Distribution Width 14.7 % (11.5-14.5); White Blood Count 6.3 K/mm3 (4.5-10.0)
[2021-09-03 07:51] LABS: Alanine Aminotransferase 25 U/L (4-35); Alkaline Phosphatase 314 U/L (38-126); Anion Gap 12 mmol/L (8-16); Aspartate Amino Transferase 46 U/L (14-36); Bilirubin,Total 0.4 mg/dL (0.2-1.3); Blood Urea Nitrogen 30 mg/dL (7-17); Calcium 9.4 mg/dL (8.4-10.2); Carbon Dioxide 23 mmol/L (22-30); Chloride 102 mmol/L (98-107); Estimated Glomerular Filt Rate 29; Glucose 212 mg/dL (65-110); Potassium 4.4 mmol/L (3.4-5.0); Sodium 137 mmol/L (137-145)
[2021-09-03 08:08] LABS: Glucose Point of Care 196 mg/dl (65-105)
[2021-09-03] MEDS: UMECLIDINIUM/VILANTEROL 62.5-25 MCG ELLIPTA 1 PUFF INHALATION (08:26)
[2021-09-03] MEDS: lisinopriL 10 MG TABLET PO (09:00)
[2021-09-03] MEDS: lamoTRIgine 100 MG TABLET PO ×2 (09:00→16:26)
[2021-09-03] MEDS: lamoTRIgine 25 MG TABLET 50 MG PO ×2 (09:00→16:26)
[2021-09-03] MEDS: GABAPENTIN 300 MG CAPSULE 900 MG PO ×3 (09:00→16:25)
[2021-09-03] MEDS: ESCITALOPRAM OXALATE 5 MG TABLET PO (09:01)
[2021-09-03] MEDS: predniSONE 40 MG, predniSONE 10 MG 50 MG PO (09:01)
[2021-09-03] MEDS: PROPRANOLOL HCL 10 MG TABLET PO (09:02)
[2021-09-03] MEDS: FERROUS SULFATE 324 MG TABLET PO (09:02)
[2021-09-03] MEDS: amLODIPine BESYLATE 5 MG TABLET 10 MG PO (09:02)
[2021-09-03] MEDS: FUROSEMIDE INJ 40 MG/4 ML VIAL IV PUSH (09:04)
--- NOTE | 2021-09-03 10:41 | PHAR ---
Home medication Asenapine 5mg SL tablets seen in pharmacy and returned to [address] [place] [address] unit
[2021-09-03] MEDS: PANTOPRAZOLE 40 MG TABLET PO (11:04)
[2021-09-03 11:11] LABS: Glucose Point of Care 361 mg/dl (65-105)
[2021-09-03] MEDS: INSULIN ASPART (*BKC) 100 UNITS/ML SUB-Q (11:52)
--- NOTE | 2021-09-03 15:28 | PM.DS ---
DS: Admitting Diagnosis Discharge Date 09/03/2021 Admitting Diagnosis CHF, COPD DS: Discharge Diagnosis Discharge Diagnosis (1) Acute on chronic diastolic heart failure: Code(s): I50.33 - Acute on chronic diastolic (congestive) heart failure Status: Acute Assessment and Plan: Presented with increased shortness breath. CXR on presentation showed cardiomegaly with [id number] pulmonary edema and small pleural effusions. Echo May 2021 showed normal EF 65-70% with grade 1 diastolic dysfunction. She was diuresed with IV Lasix and had symptomatic improvement. Transitioned to PO Lasix. Started on 40 mg PO Lasix daily on discharge. CHF education provided. Continue lisinopril. (2) COPD (chronic obstructive pulmonary disease): Code(s): J44.9 - Chronic obstructive pulmonary disease, unspecified Status: Acute Assessment and Plan: Noted to be wheezing on exam and felt to be consistent COPD exacerbation. Did not require supplemental O2. Started on IV Solu-medrol which was tapered. Tolerating PO steroids at time of discharge with no wheezing on exam Continue 40 mg PO Prednisone to complete 5 days of steroids. Symptomatic improvement with albuterol and ipratropium nebs while inpatient Continue Anoro Ellipta Albuterol rescue inhaler prescribed on discharge. No change in sputum production to necessitate antibiotic therapy (3) Type 2 diabetes mellitus: Code(s): E11.9 - Type 2 diabetes mellitus without complications Status: Acute Assessment and Plan: Last A1c 3 months ago was 5.4 Diet controlled, she is not on any medications Managed during hospital stay Accu-Cheks, sliding scale insulin, hypoglycemic protocol Glucose elevated while on steroids; encouraged close glucose monitoring while on steroids. Anticipate normalization of blood sugars when steroids are discontinued. (4) Chronic kidney disease, stage III (moderate): Code(s): N18.3 - Chronic kidney disease, stage 3 (moderate) Status: Acute Assessment and Plan: Renal function remained consistent with baseline (5) Bipolar disorder: Code(s): F31.9 - Bipolar disorder, unspecified Status: Acute Assessment and Plan: Mood remained stable Continue home medication regimen including lamotrigine, escitalopram, and asenapine (6) Hypertension: Code(s): I10 - Essential (primary) hypertension Status: Acute Assessment and Plan: Blood pressure slightly elevated on presentation and improved with diuresis. Continue home amlodipine and lisinopril DS: Summary Hospital Course Hospital Course: Date of admission: 09/01/2021 Date of discharge: 09/03/2021 Nisha Sigala is a 75-year-old female with a history CKD COPD, CVA, diabetes mellitus, hypertension, hyperlipidemia, hypothyroidism, and several other comorbidities who presented to the emergency department on 09/01/2021 with complaints of shortness of breath ongoing for 3 days, worse with activity and with lying flat. She also noted increased swelling of her lower legs. On presentation to the emergency department, her vital signs were stable, she is afebrile, BNP 1600, and CXR showed cardiomegaly with [id number] pulmonary edema and small pleural effusions. She was admitted to the hospitalist service for further evaluation management. Please see above for further details. She was diuresed and had symptomatic improvement. She was also started on IV steroids for COPD exacerbation and her wheezing resolved. She will continue with p.o. Lasix in CHF education was provided. She will also continue with p.o. steroids to complete 5 days of therapy. Continue her inhalers. She began feeling much better and requested discharge home. Given her overall improvement, she was determined to no longer require inpatient care and was felt to be stable for discharge. We discussed worrisome signs and sympt
[2021-09-03] MEDS: FUROSEMIDE 40 MG TABLET PO (16:26)
== END 2021-09-03 16:41 | disposition home or self-care (01) ==
LOC: ANHED 09-02 00:28 → ANH3MEDSUR 09-02 00:53
PROVIDERS: Physician Assistant; Admitting Provider Internal Medicine; Emergency Provider Emergency Medicine; PCP Internal Medicine; Visit Provider Family Medicine
DX: I13.0 Hypertensive heart and chronic kidney disease with heart failure and stage 1 through stage 4 chronic kidney disease, or unspecified chronic kidney disease (principal); I50.33 Acute on chronic diastolic (congestive) heart failure; R06.02 Shortness of breath; E11.22 Type 2 diabetes mellitus with diabetic chronic kidney disease; N18.30 Chronic kidney disease, stage 3 unspecified; D63.1 Anemia in chronic kidney disease; E78.5 Hyperlipidemia, unspecified; F31.9 Bipolar disorder, unspecified; J44.9 Chronic obstructive pulmonary disease, unspecified; Z87.891 Personal history of nicotine dependence
CPT/HCPCS: 36415; 71046; 80048; 80053; 82948; 83880; 84484; 85025; 85027; 85610; 85730; 93005; 94640; 96374; 96375; 96376; 99285; A9270; G0378; J1815; J1940; J2930; J7512

== ENCOUNTER 2021-09-12 10:55 | Outpatient (CLI) | payer MEDICARE, SELFPAY ==
[2021-09-12 12:27] LABS: Anion Gap 9 mmol/L (8-16); Blood Urea Nitrogen 31 mg/dL (7-17); Calcium 8.5 mg/dL (8.4-10.2); Carbon Dioxide 22 mmol/L (22-30); Chloride 106 mmol/L (98-107); Estimated Glomerular Filt Rate 27; Glucose 329 mg/dL (65-110); Potassium 5.2 mmol/L (3.4-5.0); Sodium 137 mmol/L (137-145)
== END 2021-09-12 10:56 | disposition home or self-care (01) ==
LOC: ANHLAB 10:57
PROVIDERS: PCP Internal Medicine; Visit Provider Physician Assistant
DX: N17.9 Acute kidney failure, unspecified (principal)
CPT/HCPCS: 36415; 80048

== ENCOUNTER 2021-09-19 10:45 | Outpatient (CLI) | payer MEDICARE, SELFPAY ==
--- NOTE | ~2021-09-19 | XR_ITS ---
EXAMINATION: XR chest 2V 09/19/2021 11:13 INDICATION: Heart failure. PROCEDURE: 2 view chest COMPARISON: Comparison to multiple prior studies sequentially, with oldest reviewed study dated 01/19. FINDINGS: The lungs are clear. The cardiomediastinal silhouette is within normal limits. There are no pleural effusions. There is no pneumothorax suspected. IMPRESSION: 1: NO ACUTE CARDIOPULMONARY DISEASE. Reviewed, dictated and finalized at location B.
[2021-09-19 11:33] LABS: Basophils Absolute Auto 0.1 K/mm3 (0.0-0.1); Eosinophils Absolute Auto 0.3 K/mm3 (0-0.3); Hematocrit 31.1 % (37.0-47.0); Hemoglobin 9.8 g/dL (12.0-15.0); Immature Granulocyte Absolute 0.05 K/mm3 (0.00-0.031); Immature Granulocyte Percent A 0.7 % (0-0.5); Lymphocytes Absolute Auto 1.45 K/mm3 (0.9-3.2); Lymphocytes Percent Auto 20.5 % (18.3-44.2); Mean Corpuscular HGB Conc 31.5 g/dl (32-36); Mean Corpuscular Hemoglobin 29.8 pg (26-34); Mean Corpuscular Volume 94.5 fl (80-100); Mean Platelet Volume 10.5 fl (7.4-10.4); Monocytes Absolute Auto 0.4 K/mm3 (0.1-0.6); Monocytes Percent Auto 5.5 % (2.6-8.5); Neutrophils Absolute Auto 4.8 K/mm3 (1.3-6.7); Neutrophils Percent Auto 68.3 % (45.5-73.1); Platelet Count Result 166 k/mm3 (150-375); Red Blood Count 3.29 M/mm3 (4.2-5.4); Red Cell Distribution Width 16.2 % (11.5-14.5); White Blood Count 7.1 K/mm3 (4.5-10.0)
[2021-09-19 11:48] LABS: Anion Gap 13 mmol/L (8-16); Blood Urea Nitrogen 35 mg/dL (7-17); Calcium 9.4 mg/dL (8.4-10.2); Carbon Dioxide 20 mmol/L (22-30); Chloride 104 mmol/L (98-107); Estimated Glomerular Filt Rate 22; Glucose 187 mg/dL (65-110); Hemoglobin A1C 6.7 % (<5.7); Potassium 4.6 mmol/L (3.4-5.0); Sodium 137 mmol/L (137-145)
[2021-09-19 11:57] LABS: NT Pro B Type Natriuretic Pept 1170 pg/mL (5-100)
== END 2021-09-19 10:46 | disposition home or self-care (01) ==
PROVIDERS: PCP Internal Medicine; Visit Provider Internal Medicine
DX: E11.9 Type 2 diabetes mellitus without complications (principal); D64.9 Anemia, unspecified; I50.9 Heart failure, unspecified; R06.02 Shortness of breath
CPT/HCPCS: 36415; 71046; 80048; 82728; 83036; 83880; 85025

== ENCOUNTER 2021-10-08 09:46 | Outpatient (CLI) | payer MEDICARE, SELFPAY ==
[2021-10-08 10:12] LABS: Basophils Absolute Auto 0.1 K/mm3 (0.0-0.1); Basophils Percent Auto 0.8 % (0.2-1.2); Eosinophils Absolute Auto 0.2 K/mm3 (0-0.3); Eosinophils Percent Auto 2.9 % (0-4.4); Hematocrit 31.6 % (37.0-47.0); Hemoglobin 9.8 g/dL (12.0-15.0); Immature Granulocyte Absolute 0.07 K/mm3 (0.00-0.031); Immature Granulocyte Percent A 0.9 % (0-0.5); Lymphocytes Absolute Auto 1.72 K/mm3 (0.9-3.2); Lymphocytes Percent Auto 22.3 % (18.3-44.2); Mean Corpuscular Hemoglobin 29.5 pg (26-34); Mean Corpuscular Volume 95.2 fl (80-100); Mean Platelet Volume 10.1 fl (7.4-10.4); Monocytes Absolute Auto 0.4 K/mm3 (0.1-0.6); Monocytes Percent Auto 4.7 % (2.6-8.5); Neutrophils Absolute Auto 5.3 K/mm3 (1.3-6.7); Neutrophils Percent Auto 68.4 % (45.5-73.1); Platelet Count Result 164 k/mm3 (150-375); Red Blood Count 3.32 M/mm3 (4.2-5.4); Red Cell Distribution Width 16.1 % (11.5-14.5); White Blood Count 7.7 K/mm3 (4.5-10.0)
[2021-10-08 10:43] LABS: Alanine Aminotransferase 52 U/L (4-35); Albumin Level 4.2 g/dL (3.5-5.1); Alkaline Phosphatase 618 U/L (38-126); Anion Gap 11 mmol/L (8-16); Aspartate Amino Transferase 92 U/L (14-36); Bilirubin,Total 0.4 mg/dL (0.2-1.3); Blood Urea Nitrogen 26 mg/dL (7-17); Calcium 8.8 mg/dL (8.4-10.2); Carbon Dioxide 16 mmol/L (22-30); Chloride 116 mmol/L (98-107); Estimated Glomerular Filt Rate 21; Glucose 156 mg/dL (65-110); Sodium 143 mmol/L (137-145)
[2021-10-08 11:12] LABS: Potassium 6.1 mmol/L (3.4-5.0)
[2021-10-10 11:58] LABS: Basophils Absolute Auto 0.1 K/mm3 (0.0-0.1); Basophils Percent Auto 0.9 % (0.2-1.2); Eosinophils Absolute Auto 0.3 K/mm3 (0-0.3); Eosinophils Percent Auto 3.2 % (0-4.4); Hematocrit 31.7 % (37.0-47.0); Hemoglobin 9.9 g/dL (12.0-15.0); Immature Granulocyte Absolute 0.08 K/mm3 (0.00-0.031); Lymphocytes Absolute Auto 1.56 K/mm3 (0.9-3.2); Lymphocytes Percent Auto 19.8 % (18.3-44.2); Mean Corpuscular HGB Conc 31.2 g/dl (32-36); Mean Corpuscular Hemoglobin 29.7 pg (26-34); Mean Corpuscular Volume 95.2 fl (80-100); Mean Platelet Volume 10.5 fl (7.4-10.4); Monocytes Absolute Auto 0.4 K/mm3 (0.1-0.6); Monocytes Percent Auto 4.8 % (2.6-8.5); Neutrophils Absolute Auto 5.5 K/mm3 (1.3-6.7); Neutrophils Percent Auto 70.3 % (45.5-73.1); Platelet Count Result 177 k/mm3 (150-375); Red Blood Count 3.33 M/mm3 (4.2-5.4); Red Cell Distribution Width 16.4 % (11.5-14.5); White Blood Count 7.9 K/mm3 (4.5-10.0)
[2021-10-10 12:44] LABS: Hepatitis B Surface Antigen Negative (Negative)
[2021-10-10 12:49] LABS: HAV RESULT Negative (Negative); Hepatitis B Core IgM Result Negative (Negative)
[2021-10-10 12:56] LABS: Iron 88 ug/dL (37-170); Percent Iron Saturation 22 % (20-50)
[2021-10-10 13:01] LABS: Hepatitis C Virus Antibody Negative (Negative)
[2021-10-10 13:45] LABS: Alanine Aminotransferase 47 U/L (4-35); Albumin Level 4.7 g/dL (3.5-5.1); Alkaline Phosphatase 609 U/L (38-126); Anion Gap 11 mmol/L (8-16); Aspartate Amino Transferase 77 U/L (14-36); Bilirubin,Total 0.5 mg/dL (0.2-1.3); Blood Urea Nitrogen 25 mg/dL (7-17); Calcium 8.4 mg/dL (8.4-10.2); Carbon Dioxide 16 mmol/L (22-30); Chloride 113 mmol/L (98-107); Estimated Glomerular Filt Rate 22; Glucose 148 mg/dL (65-110); Potassium 6.7 mmol/L (3.4-5.0); Sodium 140 mmol/L (137-145)
[2021-10-12 18:39] LABS: Alpha-1-Antitrypsin, QN 231 mg/dL (83-199); Ceruloplasmin 40 mg/dL (18-53)
[2021-10-13 11:40] LABS: Actin Antibody (IgG) <20 U (<20)
[2021-10-13 14:48] LABS: Mitochondrial (M2) Ab (IgG) <=20.0 U (<=20.0)
== END 2021-10-10 10:43 | disposition home or self-care (01) ==
PROVIDERS: PCP Internal Medicine; Visit Provider Clinical Nurse Specialist
DX: K74.60 Unspecified cirrhosis of liver (principal)
CPT/HCPCS: 36415; 80053; 80074; 82103; 82248; 82390; 82728; 83516; 83520; 83540; 83550; 85025

== ENCOUNTER 2021-10-10 10:44 | Outpatient (CLI) | payer MEDICARE, SELFPAY ==
--- NOTE | 2021-10-10 11:57 | ECG_ITS ---
Measurements Intervals [place] Rate: 47 P: 73 CO: 208 QRS: -85 QRSD: 145 T: 23 QT: 525 QTc: 467 Interpretive Statements SINUS BRADYCARDIA WITH FIRST DEGREE AV BLOCK RIGHT BUNDLE BRANCH BLOCK INFERIOR INFARCT, AGE INDETERMINATE ABNORMAL ECG Electronically Signed On 10-10-2021 19:40:13 PATIENT REGISTRATION REPRESENTATIVE by George Moyer D.O.
== END 2021-10-10 10:45 | disposition home or self-care (01) ==
PROVIDERS: PCP Internal Medicine; Visit Provider Clinical Nurse Specialist
DX: R00.1 Bradycardia, unspecified (principal); K74.60 Unspecified cirrhosis of liver; I44.0 Atrioventricular block, first degree; I45.10 Unspecified right bundle-branch block
CPT/HCPCS: 93005

== ENCOUNTER 2021-10-10 15:15 | Emergency (ER) | payer MEDICARE, SELFPAY ==
[2021-10-10 15:17] VITALS: BP 136/49; PULSE 56; RESP 16; O2SAT 100
--- NOTE | 2021-10-10 15:24 | ECG_ITS ---
Measurements Intervals [place] Rate: 53 P: 22 FL: 199 QRS: -74 QRSD: 174 T: 13 QT: 502 QTc: 472 Interpretive Statements SINUS BRADYCARDIA LEFT AXIS DEVIATION BORDERLINE AV CONDUCTION DELAY RIGHT BUNDLE BRANCH BLOCK INFERIOR INFARCT, AGE INDETERMINATE BASELINE ARTIFACT- I, II, III, AVR, AVF, V2-V6 ABNORMAL ECG Electronically Signed On 10-10-2021 19:47:38 TUMBLER PLATER by George Moyer D.O.
[2021-10-10 15:48] LABS: Basophils Percent Auto 0.6 % (0.2-1.2); Eosinophils Absolute Auto 0.2 K/mm3 (0-0.3); Eosinophils Percent Auto 2.7 % (0-4.4); Hematocrit 29.4 % (37.0-47.0); Hemoglobin 9.1 g/dL (12.0-15.0); Immature Granulocyte Absolute 0.03 K/mm3 (0.00-0.031); Immature Granulocyte Percent A 0.4 % (0-0.5); Lymphocytes Absolute Auto 1.63 K/mm3 (0.9-3.2); Lymphocytes Percent Auto 23.5 % (18.3-44.2); Mean Corpuscular Hemoglobin 29.9 pg (26-34); Mean Corpuscular Volume 96.7 fl (80-100); Mean Platelet Volume 10.6 fl (7.4-10.4); Monocytes Absolute Auto 0.4 K/mm3 (0.1-0.6); Monocytes Percent Auto 5.2 % (2.6-8.5); Neutrophils Absolute Auto 4.7 K/mm3 (1.3-6.7); Neutrophils Percent Auto 67.6 % (45.5-73.1); Platelet Count Result 153 k/mm3 (150-375); Red Blood Count 3.04 M/mm3 (4.2-5.4); Red Cell Distribution Width 16.4 % (11.5-14.5)
--- NOTE | 2021-10-10 16:06 | ED.RECABL ---
HPI - Recheck/Abnormal Lab/Rx General Chief Complaint: Recheck/Abnormal Lab/Rx Stated Complaint: HIGH POTASSIUM Time Seen by Provider: 10/10/21 15:32 Source: patient History of Present Illness HPI narrative: Patient presents with elevated potassium she was getting her routine blood drawn it was noted to be elevated so she was referred to the ER for further evaluation. Patient ports he feels tired but otherwise feels well. She denies any chest pain or shortness of breath denies any lightheadedness or dizziness she denies any recent fevers, cough, congestion. Related Data Home Medications Medication Instructions Recorded Confirmed asenapine maleate [Saphris] 5 mg SUBLINGUAL Q12H 01/04/20 10/03/21 acetaminophen 650 mg PO Q4H PRN 01/11/20 10/03/21 escitalopram oxalate 5 mg PO DAILY 08/21/21 10/03/21 levothyroxine 125 mcg PO DAILY 08/21/21 10/03/21 lorazepam 0.5 mg PO Q8H 08/21/21 10/03/21 rosuvastatin 20 mg PO HS 08/21/21 10/03/21 trazodone 300 mg PO HS 08/21/21 10/03/21 Allergies Allergy/AdvReac Type Severity Reaction Status Date / Time alendronate sodium Allergy Unknown Unknown Verified 10/03/21 14:41 amantadine Allergy Unknown Unknown Verified 10/03/21 14:41 benztropine Allergy Unknown Unknown Verified 10/03/21 14:41 chlorpromazine Allergy Unknown Unknown Verified 10/03/21 14:41 levofloxacin Allergy Unknown Unknown Verified 10/03/21 14:41 Macrolide Antibiotics Allergy Unknown UNKNOWN Verified 10/03/21 14:41 REACTION mirtazapine Allergy Unknown Unknown Verified 10/03/21 14:41 Quinolones Allergy Unknown Unknown Verified 10/03/21 14:41 topiramate Allergy Unknown Unknown Verified 10/03/21 14:41 Review of Systems Review of Systems: CONSTITUTIONAL: Denies fever, chills, or sweats. EYES: Denies visual changes, redness, or discharge. ENT: Denies rhinorrhea, congestion, sore throat, or otalgia. CARDIOVASCULAR: Denies chest pain, palpitations, or edema. RESPIRATORY: Denies cough or dyspnea. GASTROINTESTINAL: Denies abdominal pain, nausea, vomiting, or diarrhea. GENITOURINARY: Denies dysuria or hematuria. SKIN: Denies rash or itching. MUSCULOSKELETAL: Denies back pain, joint pain, or myalgia. NEUROLOGIC: Denies headache, numbness, dizziness, or weakness. PSYCHIATRIC: Denies anxiety or depression. All systems reviewed & are unremarkable except as noted in HPI and below PMFSH Past Medical History Medical History Anemia Anxiety Aortic stenosis Mild on echo May 2021 Arthritis Asthma Bipolar disorder Chronic kidney disease, stage III (moderate) Managed by Dr. Aquino COPD (chronic obstructive pulmonary disease) PFTs 06/28/2021: Moderate obstructive abnormality, moderate decreased diffusion capacity CVA (cerebrovascular accident) (~12/2019) Depression Diabetes mellitus Diabetic peripheral neuropathy Diastolic dysfunction Echocardiogram 05/2021: EF 65-70%, grade 1 diastolic dysfunction, E/E elevated, global longitudinal strain mildly abnormal, moderate left atrial enlargement, moderate aortic valve sclerosis, mild aortic valve stenosis with peak velocity 239, mean gradient 14, aortic valve area 1.7 to, mild aortic valve regurgitation, GERD (gastroesophageal reflux disease) HLD (hyperlipidemia) Hypertension Hypothyroidism IBS (irritable bowel syndrome) Osteoporosis Rectal polyp Type 2 diabetes mellitus Ulcer UTI (urinary tract infection) Surgical History Surgical History History of bladder surgery History of colonoscopy with polypectomy Most recent colonoscopy 01/2019 demonstrated colon spasm and diverticulosis performed by Dr. Moreno History of partial hysterectomy History of thyroidectomy Hx of section Hx of cholecystectomy Hx of tonsillectomy Status post cataract extraction of both eyes with insertion of intraocular lens Family History Family History (Reviewed 10/10/21 @ 16:27 by Ming Lee,
[2021-10-10 16:12] LABS: Alanine Aminotransferase 36 U/L (4-35); Alkaline Phosphatase 520 U/L (38-126); Anion Gap 11 mmol/L (8-16); Aspartate Amino Transferase 68 U/L (14-36); Bilirubin,Total 0.5 mg/dL (0.2-1.3); Blood Urea Nitrogen 25 mg/dL (7-17); Calcium 8.2 mg/dL (8.4-10.2); Carbon Dioxide 16 mmol/L (22-30); Chloride 115 mmol/L (98-107); Estimated Glomerular Filt Rate 22; Glucose 242 mg/dL (65-110); Sodium 142 mmol/L (137-145)
[2021-10-10] MEDS: CALCIUM CHLORIDE 1,000 MG/10 ML SYRINGE 1000 MG IV PUSH (16:26)
[2021-10-10] MEDS: DEXTROSE 50% 25 GM/50 ML SYRINGE IV PUSH (16:33)
[2021-10-10] MEDS: SODIUM POLYSTYRENE SULFONONATE 15 GM/60 ML BTL PO (16:34)
[2021-10-10] MEDS: FUROSEMIDE INJ 40 MG/4 ML VIAL IV PUSH (16:34)
[2021-10-10] MEDS: INSULIN HUMAN REGULAR (*BKC) 100 UNITS/ML 10 UNITS IV PUSH (16:34)
[2021-10-10 16:36] LABS: Add Urine Microscopic? YES; Appearance Urine Clear (Clear); Bilirubin Urine Negative (Negative); Blood Urine Negative (Negative); Color Urine Yellow (Yellow); Glucose Urine UA Negative (Negative); Ketones Urine Negative (Negative); Leukocyte Esterase Ur Negative LEU/UL (Negative); Nitrate Urine Negative (Negative); Protein Urine 2+ mg/dL (Negative); RBC Urine 0-2 /hpf (0-2); Specific Grav Ur 1.012 (1.001-1.035); Squamous Epithelial Cell Urine Few /hpf (Few); Urobilinogen Urine Negative mg/dL (<2.0)
[2021-10-10 17:14] LABS: Glucose Point of Care 161 mg/dl (65-105)
[2021-10-10 17:14] LABS: Glucose Point of Care 166 mg/dl (65-105)
[2021-10-10 17:21] VITALS: BP 136/42; PULSE 59; RESP 18; TEMP 36.9; O2SAT 97
== END 2021-10-10 17:41 | disposition home or self-care (01) ==
PROVIDERS: Emergency Provider Emergency Medicine; PCP Internal Medicine
DX: E87.5 Hyperkalemia (principal); E11.22 Type 2 diabetes mellitus with diabetic chronic kidney disease; I12.9 Hypertensive chronic kidney disease with stage 1 through stage 4 chronic kidney disease, or unspecified chronic kidney disease; N18.30 Chronic kidney disease, stage 3 unspecified; E03.9 Hypothyroidism, unspecified; J44.9 Chronic obstructive pulmonary disease, unspecified; E78.5 Hyperlipidemia, unspecified; Z87.891 Personal history of nicotine dependence; Z86.73 Personal history of transient ischemic attack (TIA), and cerebral infarction without residual deficits; Z79.899 Other long term (current) drug therapy
CPT/HCPCS: 36415; 80053; 81001; 82948; 85025; 87086; 87088; 93005; 96374; 96375; 99284; A9270; J1815; J1940

== ENCOUNTER 2021-11-07 10:04 | Outpatient (CLI) | payer MEDICARE, SELFPAY ==
[2021-11-07 13:38] LABS: Free T4 Free Thyroxine 0.84 ng/mL (0.78-2.19)
== END 2021-11-07 10:05 | disposition home or self-care (01) ==
LOC: ANHWCLAB 10:07
PROVIDERS: PCP Internal Medicine; Visit Provider Internal Medicine Endocrinology, Diabetes & Metabolism
DX: E03.9 Hypothyroidism, unspecified (principal); E11.9 Type 2 diabetes mellitus without complications; M81.8 Other osteoporosis without current pathological fracture
CPT/HCPCS: 36415; 84439; 84443

== ENCOUNTER 2021-11-14 09:36 | Outpatient (CLI) | payer MEDICARE, SELFPAY ==
[2021-11-14 09:59] LABS: Basophils Absolute Auto 0.1 K/mm3 (0.0-0.1); Basophils Percent Auto 0.9 % (0.2-1.2); Eosinophils Absolute Auto 0.2 K/mm3 (0-0.3); Eosinophils Percent Auto 2.8 % (0-4.4); Hematocrit 30.3 % (37.0-47.0); Hemoglobin 9.3 g/dL (12.0-15.0); Immature Granulocyte Absolute 0.07 K/mm3 (0.00-0.031); Immature Granulocyte Percent A 1.1 % (0-0.5); Lymphocytes Percent Auto 21.7 % (18.3-44.2); Mean Corpuscular HGB Conc 30.7 g/dl (32-36); Mean Corpuscular Hemoglobin 30.2 pg (26-34); Mean Corpuscular Volume 98.4 fl (80-100); Mean Platelet Volume 10.7 fl (7.4-10.4); Monocytes Absolute Auto 0.3 K/mm3 (0.1-0.6); Monocytes Percent Auto 4.3 % (2.6-8.5); Neutrophils Absolute Auto 4.5 K/mm3 (1.3-6.7); Neutrophils Percent Auto 69.2 % (45.5-73.1); Platelet Count Result 143 k/mm3 (150-375); Red Blood Count 3.08 M/mm3 (4.2-5.4); Red Cell Distribution Width 16.4 % (11.5-14.5); White Blood Count 6.5 K/mm3 (4.5-10.0)
[2021-11-14 10:08] LABS: Alanine Aminotransferase 43 U/L (4-35); Albumin Level 4.4 g/dL (3.5-5.1); Alkaline Phosphatase 433 U/L (38-126); Anion Gap 8 mmol/L (8-16); Aspartate Amino Transferase 67 U/L (14-36); Bilirubin,Total 0.3 mg/dL (0.2-1.3); Blood Urea Nitrogen 24 mg/dL (7-17); Carbon Dioxide 18 mmol/L (22-30); Chloride 113 mmol/L (98-107); Estimated Glomerular Filt Rate 26; Glucose 168 mg/dL (65-110); Potassium 5.4 mmol/L (3.4-5.0); Sodium 139 mmol/L (137-145)
[2021-11-14 10:17] LABS: NT Pro B Type Natriuretic Pept 2210 pg/mL (5-100)
== END 2021-11-14 09:37 | disposition home or self-care (01) ==
PROVIDERS: PCP Internal Medicine; Visit Provider Internal Medicine
DX: R06.02 Shortness of breath (principal); I51.89 Other ill-defined heart diseases; D64.9 Anemia, unspecified; E87.5 Hyperkalemia; K74.60 Unspecified cirrhosis of liver; N18.32 Chronic kidney disease, stage 3b
CPT/HCPCS: 36415; 80053; 83880; 85025

== ENCOUNTER 2021-11-19 10:44 | Outpatient (CLI) | payer MEDICARE, SELFPAY ==
[2021-11-19 11:42] LABS: Anion Gap 12 mmol/L (8-16); Blood Urea Nitrogen 29 mg/dL (7-17); Calcium 9.6 mg/dL (8.4-10.2); Carbon Dioxide 23 mmol/L (22-30); Chloride 100 mmol/L (98-107); Estimated Glomerular Filt Rate 22; Glucose 114 mg/dL (65-110); Potassium 4.6 mmol/L (3.4-5.0); Sodium 135 mmol/L (137-145)
== END 2021-11-19 10:45 | disposition home or self-care (01) ==
PROVIDERS: PCP Internal Medicine; Visit Provider Internal Medicine
DX: E87.5 Hyperkalemia (principal)
CPT/HCPCS: 36415; 80048

== ENCOUNTER 2021-11-28 08:58 | Outpatient (CLI) | payer MEDICARE, SELFPAY ==
--- NOTE | ~2021-11-28 | US_ITS ---
EXAMINATION: US abdomen complete EXAM DATE: 11/28/2021 09:49 INDICATION: K75.81 - Nonalcoholic steatohepatitis (ZIEGLER). TECHNIQUE: Multiple grayscale and Doppler images of the complete abdomen were obtained (by a technolo gist who performed the scan) and subsequently reviewed. There is no prior study for comparison. FINDINGS: The abdominal aorta is normal in caliber. Visualized portion IVC is patent. The pancreatic head a nd body are normal in appearance. The pancreatic tail is not visualized. Lobular liver contour consistent with cirrhosis. There is small amount of perihepatic ascites. There are no focal portal venous Doppler signal mildly pulsatile but is in the hepatopedal, normal directi on. Common bile duct measures 4 mm, which is normal. The gallbladder fossa is unremarkable. Right kidney: There is normal contour and echogenicity. It measures 9.4 x 3.7 x 3.9 centimeters. T here are no focal renal lesions identified. There is no hydronephrosis. Left kidney: There is normal contour and echogenicity. It measures 8.8 x 4.0 x 5.8 centimeters. Th ere are no focal renal lesions identified. There is no hydronephrosis. Spleen measures 15 cm, enlarged but otherwise morphologically normal. IMPRESSION: 1. Cirrhosis and small perihepatic ascites. 2. Splenomegaly which could indicate portal hypertension. Reviewed, dictated and finalized at location A. [employer]ARM SUPERVISOR
== END 2021-11-28 08:59 | disposition home or self-care (01) ==
LOC: ANHIMG 09:00
PROVIDERS: PCP Internal Medicine; Visit Provider Internal Medicine
DX: K74.60 Unspecified cirrhosis of liver (principal); K75.81 Nonalcoholic steatohepatitis (NASH)
CPT/HCPCS: 76700

== ENCOUNTER 2021-12-08 11:19 | Inpatient (IN) | payer MEDICARE, SELFPAY ==
[2021-12-08] VITALS (8 sets, daily range): BP systolic 147–155; BP diastolic 40–61; PULSE 49–53; RESP 17–19; TEMP 36.1–36.7; O2SAT 97–100
--- NOTE | ~2021-12-08 | XR_ITS ---
XR chest 2V 12/08/2021 12:29 Indication: Shortness of breath Procedure: PA and lateral views of the chest Comparison: 08/15/2021 Findings: Borderline heart size. Patchy predominantly basilar airspace disease, compatible with pneum onia. Small pleural effusions. No pneumothorax. No acute osseous abnormality. Impression: 1: Patchy bibasilar airspace disease, compatible with pneumonia. Reviewed, dictated and finalized at location A. EXAMINER Impression: 1: Patchy bibasilar airspace disease, compatible with pneumonia.
--- NOTE | ~2021-12-08 | CT_ITS ---
EXAMINATION:CT chest high resolution wo pr DATE: 12/09/2021 08:28 INDICATION: Dyspnea. TECHNIQUE: Computed tomography (CT) of the chest was performed without intravenous contrast. Automate d exposure control and iterative reconstruction technique were employed. The dose-length product (DLP ) was 167.35 mGy-cm. COMPARISON: Chest CT 12/28/2016, CT abdomen and pelvis 08/20/2021 FINDINGS: There is diffuse smooth septal thickening in the lungs with widespread groundglass opacitie s, consistent with moderate pulmonary edema. There are small pleural effusions. Cardiomegaly is noted . There is a small pericardial effusion. There are coronary artery calcifications. The liver demonstr ates a nodular surface contour, consistent with cirrhosis. There are changes of cholecystectomy. Ther e is a small volume of perihepatic ascites. There is mild thoracic spondylosis. There are benign bone islands in T7 and T10. There is a hemangioma in T11. IMPRESSION: 1. Moderate pulmonary edema. 2. Small pleural effusions. 3. Cardiomegaly. 4. Small pericardial effusion. 5. Cirrhosis of the liver. 6. Small volume of ascites. Reviewed, dictated and finalized at location B. ENTER/LABOR
--- NOTE | 2021-12-08 11:59 | ECG_ITS ---
Measurements Intervals [place] Rate: 46 P: 143 [place]: 193 QRS: -24 QRSD: 102 T: 0 QT: 202 QTc: 177 Interpretive Statements SINUS BRADYCARDIA BORDERLINE AV CONDUCTION DELAY RIGHT BUNDLE BRANCH BLOCK LOW QRS VOLTAGE IN PRECORDIAL LEADS CANNOT RULE OUT SEPTAL INFARCT, AGE INDETERMINATE INFERIOR INFARCT, AGE INDETERMINATE ABNORMAL ECG Electronically Signed On 12-08-2021 16:09:46 DIRECTOR HEALTH by Geroge Moyer D.O.
--- NOTE | 2021-12-08 12:05 | ED.GENADULT ---
HPI - General Adult General Chief complaint: Extremity Problem,Nontraumatic Stated complaint: bilateral foot pain, neuropathy Time Seen by Provider: 12/08/21 11:24 Source: patient Mode of arrival: ambulatory Limitations: no limitations History of Present Illness HPI narrative: Patient presents for evaluation of shortness of breath peripheral neuropathy. She states that she has had shortness of breath for the last 2 to 3 months but worsened last evening. She also indicates that she has had peripheral neuropathy in the right leg for the last 6 months, but has noted the symptoms in both legs as of 2 days ago. She is currently on gabapentin 300 mg 3 times per day. Home blood sugars have been around 150-160. She is currently not on any medication for diabetes. She denies any fever, nausea, vomiting, diarrhea, chest pain. No recent sick contacts. No history of Covid. She has been vaccinated for Covid and has also received her booster. She is a former smoker, quit 6 months ago. She had an echocardiogram in 2018 that showed normal left ventricular function with no wall motion abnormalities, mild to moderate LVH, impaired diastolic relaxation grade 1, ejection fraction 77%. Related Data Home Medications Medication Instructions Recorded Confirmed asenapine maleate [Saphris] 5 mg SUBLINGUAL Q12H 01/04/20 11/14/21 acetaminophen 650 mg PO Q4H PRN 01/11/20 11/14/21 escitalopram oxalate 5 mg PO DAILY 08/21/21 11/14/21 lorazepam 0.5 mg PO Q8H 08/21/21 11/14/21 rosuvastatin 20 mg PO HS 08/21/21 11/14/21 trazodone 300 mg PO HS 08/21/21 11/14/21 Allergies Allergy/AdvReac Type Severity Reaction Status Date / Time alendronate sodium Allergy Unknown Unknown Verified 12/08/21 11:33 amantadine Allergy Unknown Unknown Verified 12/08/21 11:33 benztropine Allergy Unknown Unknown Verified 12/08/21 11:33 chlorpromazine Allergy Unknown Unknown Verified 12/08/21 11:33 levofloxacin Allergy Unknown Unknown Verified 12/08/21 11:33 Macrolide Antibiotics Allergy Unknown UNKNOWN Verified 12/08/21 11:33 REACTION mirtazapine Allergy Unknown Unknown Verified 12/08/21 11:33 Quinolones Allergy Unknown Unknown Verified 12/08/21 11:33 topiramate Allergy Unknown Unknown Verified 12/08/21 11:33 Review of Systems Review of Systems: CONSTITUTIONAL: Denies fever, chills, or sweats. EYES: Denies visual changes, redness, or discharge. ENT: Denies rhinorrhea, congestion, sore throat, or otalgia. CARDIOVASCULAR: Denies chest pain, palpitations, or edema. RESPIRATORY: Reports shortness of breath. Denies cough GASTROINTESTINAL: Denies abdominal pain, nausea, vomiting, or diarrhea. GENITOURINARY: Denies dysuria or hematuria. SKIN: Denies rash or itching. MUSCULOSKELETAL: Denies back pain, joint pain, or myalgia. NEUROLOGIC: Reports neuropathy in BLE. Denies headache, dizziness, or weakness. PSYCHIATRIC: Denies anxiety or depression. [facility] Past Medical History Medical History Anemia Anxiety Aortic stenosis Mild on echo May 2021 Arthritis Asthma Bipolar disorder Chronic kidney disease, stage III (moderate) Managed by Dr. Aquino COPD (chronic obstructive pulmonary disease) PFTs 06/28/2021: Moderate obstructive abnormality, moderate decreased diffusion capacity CVA (cerebrovascular accident) (~12/2019) Depression Diabetes mellitus Diabetic peripheral neuropathy Diastolic dysfunction Echocardiogram 05/2021: EF 65-70%, grade 1 diastolic dysfunction, E/E elevated, global longitudinal strain mildly abnormal, moderate left atrial enlargement, moderate aortic valve sclerosis, mild aortic valve stenosis with peak velocity 239, mean gradient 14, aortic valve area 1.7 to, mild aortic valve regurgitation, GERD (gastroesophageal reflux disease) HLD (hyperlipidemia) Hypertension Hypothyroidism IBS (irritable bowel syndrome) 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
--- NOTE | 2021-12-08 12:22 | PC.NURSE ---
pt to xray at this time.
[2021-12-08 13:21] LABS: Basophils Absolute Auto 0.1 K/mm3 (0.0-0.1); Eosinophils Absolute Auto 0.2 K/mm3 (0-0.3); Eosinophils Percent Auto 2.7 % (0-4.4); Hemoglobin 9.5 g/dL (12.0-15.0); Immature Granulocyte Absolute 0.07 K/mm3 (0.00-0.031); Lymphocytes Absolute Auto 1.94 K/mm3 (0.9-3.2); Lymphocytes Percent Auto 26.5 % (18.3-44.2); Mean Corpuscular HGB Conc 30.6 g/dl (32-36); Mean Corpuscular Volume 97.8 fl (80-100); Mean Platelet Volume 10.2 fl (7.4-10.4); Monocytes Absolute Auto 0.5 K/mm3 (0.1-0.6); Monocytes Percent Auto 6.4 % (2.6-8.5); Neutrophils Absolute Auto 4.6 K/mm3 (1.3-6.7); Neutrophils Percent Auto 62.4 % (45.5-73.1); Platelet Count Result 161 k/mm3 (150-375); Red Blood Count 3.17 M/mm3 (4.2-5.4); Red Cell Distribution Width 15.3 % (11.5-14.5); White Blood Count 7.3 K/mm3 (4.5-10.0)
[2021-12-08 13:27] LABS: Alanine Aminotransferase 25 U/L (4-35); Albumin Level 4.4 g/dL (3.5-5.1); Alkaline Phosphatase 404 U/L (38-126); Anion Gap 14 mmol/L (8-16); Aspartate Amino Transferase 54 U/L (14-36); Bilirubin,Total 0.6 mg/dL (0.2-1.3); Blood Urea Nitrogen 18 mg/dL (7-17); Calcium 9.3 mg/dL (8.4-10.2); Carbon Dioxide 17 mmol/L (22-30); Chloride 107 mmol/L (98-107); Estimated Glomerular Filt Rate 26; Glucose 111 mg/dL (65-110); Potassium 4.4 mmol/L (3.4-5.0); Sodium 138 mmol/L (137-145)
[2021-12-08 13:39] LABS: NT Pro B Type Natriuretic Pept 2030 pg/mL (5-100); Troponin I 0.018 ng/mL (0.000-0.034)
[2021-12-08 13:59] LABS: SARS-CoV-2 RNA PCR Negative
[2021-12-08 14:35] LABS: Free T4 Free Thyroxine 1.05 ng/mL (0.78-2.19)
[2021-12-08 14:43] LABS: Base Excess ABG -4.8 mEq/l (+/-2.0); Device ROOM AIR; Fractional Inspired Oxygen 21 %; HCO3 ABG 18.6 mEq/l (22.0-26.0); Modified Allen's Test Pass; Oxygen Saturation ABG 95.4 % (95.0-100.0); Oxyhemoglobin 93.2 % THb (90.0-100.0); PO2 FiO2 Ratio Arterial Blood 3.52 %; Site Drawn RIGHT RADIAL; Total Hemoglobin 10.6 g/dL (12.0-18.0); pH ABG 7.425 (7.350-7.450)
[2021-12-08] MEDS: DOXYCYCLINE IV 100 MG in SODIUM CHLORIDE 0.9% IV 100 ML IVPB (15:59)
[2021-12-08] MEDS: ACETAMINOPHEN 325 MG TABLET 650 MG PO (16:00)
--- NOTE | 2021-12-08 16:47 | PC.NURSE ---
called for report. nurse will call back.
[2021-12-08 16:51] LABS: Troponin I 0.016 ng/mL (0.000-0.034)
[2021-12-08 19:06] LABS: Glucose Point of Care 104 mg/dl (65-105)
--- NOTE | 2021-12-08 21:00 | PM.IMHP ---
H&P: HPI History of Present Illness Date/Time: 12/08/21 21:00 Chief Complaint: Shortness of breath. Narrative: This is a pleasant 76-year-old female with history of stroke, diastolic congestive heart failure, hypertension, hyperlipidemia, COPD, cirrhosis secondary to fatty liver disease, chronic kidney disease, type 2 diabetes with peripheral neuropathy, hypothyroidism, and bipolar disorder presented to the emergency department earlier today for evaluation of shortness of breath. She endorses dyspnea on exertion for several months and it was not necessarily any worse today but due to ongoing symptoms she felt it would be best to come in for evaluation. Mostly she notices shortness of breath when up and about the home, cleaning and cooking though at times she will feel a bit short of breath simply while sitting down. Her inhalers do not seem to help much with her shortness of breath, unfortunately. She endorses increased abdominal girth though states that has been unchanged for several months, and she has not noticed any significant change in weight. She denies lower extremity edema and paroxysmal nocturnal dyspnea however has mild orthopnea though that is also a chronic finding. She denies cough but does tell me that she ?chokes a little bit? when eating and drinking though she does not think that she has had problems with aspiration. Additionally she complains of neuropathy in her feet that seems to have been worse the past couple of months and she feels as though her feet and legs are restless at nighttime. She denies fever, chills, sweats, sinus congestion, rhinorrhea, otalgia, odynophagia, headache, nausea, vomiting, and diarrhea. She denies sick contacts. She has been vaccinated for COVID and influenza. Review of Systems Review of Systems: Twelve systems were reviewed and are negative except for as per HPI. [facility] Past Medical History Medical History Anemia Anxiety Aortic stenosis Mild on echo May 2021 Arthritis Asthma Bipolar disorder Chronic kidney disease, stage III (moderate) Managed by Dr. Aquino COPD (chronic obstructive pulmonary disease) PFTs 06/28/2021: Moderate obstructive abnormality, moderate decreased diffusion capacity CVA (cerebrovascular accident) (~12/2019) Depression Diabetes mellitus Diabetic peripheral neuropathy Diastolic dysfunction Echocardiogram 05/2021: EF 65-70%, grade 1 diastolic dysfunction, E/E elevated, global longitudinal strain mildly abnormal, moderate left atrial enlargement, moderate aortic valve sclerosis, mild aortic valve stenosis with peak velocity 239, mean gradient 14, aortic valve area 1.7 to, mild aortic valve regurgitation, GERD (gastroesophageal reflux disease) HLD (hyperlipidemia) Hypertension Hypothyroidism IBS (irritable bowel syndrome) 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 Moreno History of partial hysterectomy History of thyroidectomy Hx of section Hx of cholecystectomy Hx of tonsillectomy Status post cataract extraction of both eyes with insertion of intraocular lens Family History Family History Sibling Multiple sclerosis Father Acute myocardial infarction, Onset Age: 79 Cerebrovascular accident, Onset Age: 79 Mother Dementia Sibling Acute myocardial infarction, Onset Age: 65 Son Diabetes mellitus Other Depression Family history of arthritis Family history of elevated blood lipids Family history of thyroid disease Hypertension Social History Social Histo
[2021-12-08 21:16] LABS: Glucose Point of Care 134 mg/dl (65-105)
[2021-12-09] VITALS (11 sets, daily range): BP systolic 132–156; BP diastolic 43–56; PULSE 48–64; RESP 12–18; TEMP 36.6–37.1; O2SAT 92–100
[2021-12-09] MEDS: GABAPENTIN 300 MG CAPSULE 600 MG PO ×2 (05:53→12:44)
[2021-12-09] MEDS: DOXYCYCLINE IV 100 MG in SODIUM CHLORIDE 0.9% IV 100 ML IVPB (05:54)
[2021-12-09 06:22] LABS: Basophils Absolute Auto 0.1 K/mm3 (0.0-0.1); Basophils Percent Auto 1.4 % (0.2-1.2); Eosinophils Absolute Auto 0.2 K/mm3 (0-0.3); Eosinophils Percent Auto 3.1 % (0-4.4); Hematocrit 31.7 % (37.0-47.0); Hemoglobin 10.2 g/dL (12.0-15.0); Immature Granulocyte Absolute 0.02 K/mm3 (0.00-0.031); Immature Granulocyte Percent A 0.4 % (0-0.5); Lymphocytes Absolute Auto 1.23 K/mm3 (0.9-3.2); Lymphocytes Percent Auto 25.4 % (18.3-44.2); Mean Corpuscular HGB Conc 32.2 g/dl (32-36); Mean Corpuscular Hemoglobin 30.4 pg (26-34); Mean Corpuscular Volume 94.3 fl (80-100); Mean Platelet Volume 10.2 fl (7.4-10.4); Monocytes Absolute Auto 0.3 K/mm3 (0.1-0.6); Monocytes Percent Auto 5.4 % (2.6-8.5); Neutrophils Absolute Auto 3.1 K/mm3 (1.3-6.7); Neutrophils Percent Auto 64.3 % (45.5-73.1); Platelet Count Result 161 k/mm3 (150-375); Red Blood Count 3.36 M/mm3 (4.2-5.4); Red Cell Distribution Width 15.4 % (11.5-14.5); White Blood Count 4.9 K/mm3 (4.5-10.0)
[2021-12-09 06:44] LABS: Alanine Aminotransferase 25 U/L (4-35); Albumin Level 4.5 g/dL (3.5-5.1); Alkaline Phosphatase 415 U/L (38-126); Anion Gap 13 mmol/L (8-16); Aspartate Amino Transferase 53 U/L (14-36); Bilirubin,Total 0.4 mg/dL (0.2-1.3); Blood Urea Nitrogen 17 mg/dL (7-17); CRP 0.9 mg/dL (<1.0); Calcium 9.7 mg/dL (8.4-10.2); Carbon Dioxide 21 mmol/L (22-30); Chloride 108 mmol/L (98-107); Estimated Glomerular Filt Rate 29; Glucose 124 mg/dL (65-110); Magnesium 2.1 mg/dL (1.6-2.3); Potassium 4.6 mmol/L (3.4-5.0); Sodium 142 mmol/L (137-145)
[2021-12-09 08:03] LABS: Glucose Point of Care 108 mg/dl (65-105)
[2021-12-09 09:05] LABS: Procalcitonin 0.4 ng/mL
--- NOTE | 2021-12-09 09:39 | PCSTNOTE ---
Please refer to the Bedside Swallow Evaluation in the EMR. Please note, silent aspiration cannot be ruled out at bedside.
[2021-12-09 11:42] LABS: Glucose Point of Care 101 mg/dl (65-105)
--- NOTE | 2021-12-09 15:29 | PM.IMPN ---
Progress Note: A&P Assessment and Plan (1) Abnormal chest x-ray: Code(s): R93.89 - Abnormal findings on diagnostic imaging of other specified body structures Status: Acute Assessment and Plan: Reports dyspnea which has been ongoing for several months Chest x-ray shows findings consistent with pneumonia Pt afebrile and her white blood cell count is normal Her BNP today is higher than what it typically runs, concern for mild pulmonary edema Procalcitonin level wnl Chest CT-->Moderate pulmonary edema; small pleural effusions; cardiomegaly; small pericardial effusion Will d/c antibiotics for now Follow sputum culture (2) Cirrhosis of liver with ascites: Code(s): K74.60 - Unspecified cirrhosis of liver; R18.8 - Other ascites Status: Acute Assessment and Plan: +SOB CT of A/P-->Cirrhosis of the liver; small volume of ascites Continue propranolol Will give IV Lasix 20 mg BID (3) Dyspnea: Code(s): R06.00 - Dyspnea, unspecified Status: Acute Assessment and Plan: ECHO-->EF 65-70%, grade I diastolic dysfunction, moderate av sclerosis, mild AV regurgitation Will give IV Lasix 20 mg BID aApnea link pending (4) Peripheral neuropathy: Code(s): G62.9 - Polyneuropathy, unspecified Status: Acute Assessment and Plan: neuropathy in her feet that seems to have been worse the past couple of months Reports feet and legs are restless at nighttime On gabapentin, reports that it doesn't help much Consider starting Lyrica or Requip PT/OT consult (5) COPD (chronic obstructive pulmonary disease): Qualifiers: COPD type: unspecified COPD Qualified Code(s): J44.9 - Chronic obstructive pulmonary disease, unspecified Code(s): J44.9 - Chronic obstructive pulmonary disease, unspecified Status: Acute Assessment and Plan: No acute exacerbation Resume home LABA (6) Sinus bradycardia: Code(s): R00.1 - Bradycardia, unspecified Status: Acute Assessment and Plan: Tele monitoring ECHO-->EF 65-70%, grade I diastolic dysfunction, moderate av sclerosis, mild AV regurgitation Followed by cardiology o/p (7) Chronic anemia: Code(s): D64.9 - Anemia, unspecified Status: Acute Assessment and Plan: Iron def Hgb 10.2 Continue ferrous sulfate Transfuse if <7 Monitor (8) Chronic kidney disease, stage III (moderate): Qualifiers: Chronic kidney disease stage 3 subtype: stage 3b (GFR 30-44) Qualified Code(s): N18.32 - Chronic kidney disease, stage 3b Code(s): N18.3 - Chronic kidney disease, stage 3 (moderate) Status: Acute Assessment and Plan: Cr range from 1.7-2.3 Followed by nephrology o/p Avoid nephrotoxins Renally dose all meds Monitor (9) Type 2 diabetes mellitus: Code(s): E11.9 - Type 2 diabetes mellitus without complications Status: Acute Assessment and Plan: Hgb A1c 6 SSI, accuchecks, hypoglycemic protocol Monitor (10) Hypothyroidism: Qualifiers: Hypothyroidism type: acquired Qualified Code(s): E03.9 - Hypothyroidism, unspecified Code(s): E03.9 - Hypothyroidism, unspecified Status: Acute Assessment and Plan: Continue home levothyroxine (11) Hypertension: Code(s): I10 - Essential (primary) hypertension Status: Acute Assessment and Plan: Continue amlodipine Monitor Additional Plan Code status: DNR DVT Ppx: SCDs Subjective Date/time seen: 12/09/21 15:29 Interval history: Pt seen and examined; labs, vs, and diagnostic results reviewed; pt continues with SOB and LOBO, on room air Review of Systems Review of Systems: All systems reviewed & are unremarkable except as noted in HPI and below Exam Narrative: General: NAD HEENT: EOMI. Sclerae anicteric. Oral mucosa moist. Oropharynx clear. Neck: Supple. No adenopathy or JVD. Respiratory: Faint crackles heard at the bases Cardiov
[2021-12-09] MEDS: GABAPENTIN 300 MG CAPSULE 900 MG PO (16:36)
[2021-12-09] MEDS: amLODIPine BESYLATE 5 MG TABLET 10 MG PO (16:37)
[2021-12-09] MEDS: ESCITALOPRAM OXALATE 5 MG TABLET PO (16:37)
[2021-12-09 16:41] LABS: Glucose Point of Care 107 mg/dl (65-105)
[2021-12-09] MEDS: LORazepam (*CRX) 0.5 MG TABLET PO ×2 (16:43→23:15)
[2021-12-09] MEDS: FUROSEMIDE INJ 40 MG/4 ML VIAL 20 MG IV PUSH (16:43)
--- NOTE | 2021-12-09 17:08 | PHAR ---
THE HOME MED ASENAPINE MALEATE 5 MG SL TABS HAS BEEN VERIFIED BY PHARMACY
[2021-12-09] MEDS: traZODone HCL 50 MG TABLET 300 MG PO (21:47)
[2021-12-09] MEDS: lamoTRIgine 100 MG TABLET PO (21:47)
[2021-12-09] MEDS: PROPRANOLOL HCL 10 MG TABLET PO (21:47)
[2021-12-09] MEDS: lamoTRIgine 25 MG TABLET 50 MG PO (21:47)
[2021-12-09 22:01] LABS: Glucose Point of Care 127 mg/dl (65-105)
[2021-12-09] MEDS: ACETAMINOPHEN 325 MG TABLET 650 MG PO (22:41)
--- NOTE | 2021-12-09 22:41 | ECHO_ITS ---
Patient Info Name: Nisha Sigala Age: 76 years : 1945 Gender: Female Ht: 59 in Wt: 147 lbs BSA: 1.69 m2 HR: 64 bpm BP: 152 / 56 mmHg Technical Quality: Good Exam Date: 12/09/2021 9:49 AM Exam Location: [facility] Pul[facility] Patient Status: Inpatient Admit Date: 12/08/2021 Staff Ordering Physician: Destiny Bender PA-C Orthotist Prosthetist: Stephan Lawson RDCS, RT Attending Provider: Allan Campos MD Referring Physician: Yulia ASCENCIO; Exam Type: CA echo doppler color flow Study Info Indications R06.00 - Dyspnea, unspecified Complete two-dimensional, color flow and Doppler transthoracic echocardiogram is performed. Strain analysis performed. Summary 1. Complete two-dimensional, color flow and Doppler transthoracic echocardiogram is performed. 2. Left ventricular chamber dimension is normal. 3. Left ventricular systolic function is normal, estimated at 65-70%. 4. There is mildly increased left ventricular wall thickness. 5. The left ventricular diastolic function is grade I diastolic dysfunction. 6. E/e' 18 is elevated. 7. Global longitudinal strain is abnormal at -13.8%. 8. Left atrial chamber dimension is moderately enlarged. 9. There is moderate aortic valve sclerosis. 10. There is moderate aortic valve stenosis with a peak velocity of 311 cm/s, mean gradient of 19 mmHg, and aortic valve area of 1.0 cm2. 11. There is mild aortic valve regurgitation. 12. The mitral valve has mildly calcified annulus. 13. There is trace tricuspid valve regurgitation. 14. Dilated inferior vena cava with >50% collapse upon inspiration consistent with elevated right atrial pressure, 10 mmHg. 15. There is small circumferential pericardial effusion. Left Ventricle E/e' 18 is elevated. Global longitudinal strain is abnormal at -13.8%. Left ventricular chamber dimension is normal. Left ventricular systolic function is normal, estimated at 65-70%. There is mildly increased left ventricular wall thickness. The left ventricular diastolic function is grade I diastolic dysfunction. Right Ventricle Right ventricular systolic function is normal and with normal TAPSE 1.9 cm. Right ventricular chamber dimension is normal. Left Atria Left atrial chamber dimension is moderately enlarged. Right Atria Right atrial chamber dimension is normal. Aortic Valve The aortic valve is trileaflet. There is moderate aortic valve sclerosis. There is moderate aortic valve stenosis with a peak velocity of 311 cm/s, mean gradient of 19 mmHg, and aortic valve area of 1.0 cm2. There is mild aortic valve regurgitation. Pulmonic Valve There is no pulmonic regurgitation. Mitral Valve The mitral valve has mildly calcified annulus. There is no mitral valve stenosis. There is no mitral valve regurgitation. Tricuspid Valve There is trace tricuspid valve regurgitation. RVSP is not calculated due to an inadequate TR jet. Pericardium/Pleural There is small circumferential pericardial effusion. Inferior Vena Cava Dilated inferior vena cava with >50% collapse upon inspiration consistent with elevated right atrial pressure, 10 mmHg. Aorta The aortic root size at the sinus of Valsalva is normal. Left Ventricular Outflow Tract Name Value Normal LVOT 2D
[2021-12-10] VITALS (9 sets, daily range): BP systolic 126–148; BP diastolic 41–70; PULSE 50–75; RESP 16–20; TEMP 36.1–36.9; O2SAT 93–99
[2021-12-10] MEDS: LEVOTHYROXINE SODIUM 125 MCG TABLET PO (05:35)
[2021-12-10 05:48] LABS: Hemoglobin 9.5 g/dL (12.0-15.0); Mean Corpuscular HGB Conc 30.6 g/dl (32-36); Mean Corpuscular Hemoglobin 30.2 pg (26-34); Mean Corpuscular Volume 98.4 fl (80-100); Mean Platelet Volume 10.5 fl (7.4-10.4); Platelet Count Result 140 k/mm3 (150-375); Red Blood Count 3.15 M/mm3 (4.2-5.4); Red Cell Distribution Width 15.2 % (11.5-14.5); White Blood Count 6.3 K/mm3 (4.5-10.0)
[2021-12-10 05:57] LABS: Anion Gap 14 mmol/L (8-16); Blood Urea Nitrogen 19 mg/dL (7-17); Calcium 9.1 mg/dL (8.4-10.2); Carbon Dioxide 18 mmol/L (22-30); Chloride 105 mmol/L (98-107); Estimated Glomerular Filt Rate 26; Glucose 116 mg/dL (65-110); Potassium 4.9 mmol/L (3.4-5.0); Sodium 137 mmol/L (137-145)
[2021-12-10 07:48] LABS: Glucose Point of Care 101 mg/dl (65-105)
[2021-12-10] MEDS: FERROUS SULFATE 324 MG TABLET PO (08:59)
[2021-12-10] MEDS: ESCITALOPRAM OXALATE 5 MG TABLET PO (08:59)
[2021-12-10] MEDS: amLODIPine BESYLATE 5 MG TABLET 10 MG PO (08:59)
[2021-12-10] MEDS: GABAPENTIN 300 MG CAPSULE 900 MG PO ×3 (09:00→20:23)
[2021-12-10] MEDS: lamoTRIgine 100 MG TABLET PO ×2 (09:00→20:23)
[2021-12-10] MEDS: FUROSEMIDE INJ 40 MG/4 ML VIAL 20 MG IV PUSH ×2 (09:01→16:35)
[2021-12-10] MEDS: lamoTRIgine 25 MG TABLET 50 MG PO ×2 (09:01→20:24)
[2021-12-10] MEDS: LORazepam (*CRX) 0.5 MG TABLET PO ×3 (09:05→23:43)
[2021-12-10] MEDS: UMECLIDINIUM/VILANTEROL 62.5-25 MCG ELLIPTA 1 PUFF INHALATION (09:06)
[2021-12-10] MEDS: PANTOPRAZOLE 40 MG TABLET PO (09:13)
--- NOTE | 2021-12-10 10:33 | PM.IMPN ---
Progress Note: A&P Assessment and Plan (1) Abnormal chest x-ray: Code(s): R93.89 - Abnormal findings on diagnostic imaging of other specified body structures Status: Acute Assessment and Plan: Most likely pulmonary edema Started on IV Lasix DC IV antibiotics Monitor renal function closely (2) Cirrhosis of liver with ascites: Code(s): K74.60 - Unspecified cirrhosis of liver; R18.8 - Other ascites Status: Acute Assessment and Plan: +SOB CT of A/P-->Cirrhosis of the liver; small volume of ascites Continue propranolol IV Lasix 20 mg BID (3) Dyspnea: Code(s): R06.00 - Dyspnea, unspecified Status: Acute Assessment and Plan: Most likely acute on top of chronic diastolic CHF exacerbation ECHO-->EF 65-70%, grade I diastolic dysfunction, moderate aortic stenosis, mild AV regurgitation Will give IV Lasix 20 mg BID (4) Peripheral neuropathy: Code(s): G62.9 - Polyneuropathy, unspecified Status: Acute Assessment and Plan: Continue current treatment and monitor PT/OT consult (5) COPD (chronic obstructive pulmonary disease): Qualifiers: COPD type: unspecified COPD Qualified Code(s): J44.9 - Chronic obstructive pulmonary disease, unspecified Code(s): J44.9 - Chronic obstructive pulmonary disease, unspecified Status: Acute Assessment and Plan: No acute exacerbation Resume home LABA (6) Sinus bradycardia: Code(s): R00.1 - Bradycardia, unspecified Status: Acute Assessment and Plan: Tele monitoring ECHO-->EF 65-70%, grade I diastolic dysfunction, moderate av sclerosis, mild AV regurgitation Followed by cardiology o/p (7) Chronic anemia: Code(s): D64.9 - Anemia, unspecified Status: Acute Assessment and Plan: Iron def Hgb 10.2 Continue ferrous sulfate Transfuse if <7 Monitor (8) Chronic kidney disease, stage III (moderate): Qualifiers: Chronic kidney disease stage 3 subtype: stage 3b (GFR 30-44) Qualified Code(s): N18.32 - Chronic kidney disease, stage 3b Code(s): N18.3 - Chronic kidney disease, stage 3 (moderate) Status: Acute Assessment and Plan: Cr range from 1.7-2.3 Followed by nephrology o/p Avoid nephrotoxins Renally dose all meds Monitor (9) Type 2 diabetes mellitus: Code(s): E11.9 - Type 2 diabetes mellitus without complications Status: Acute Assessment and Plan: Hgb A1c 6 SSI, accuchecks, hypoglycemic protocol Monitor (10) Hypothyroidism: Qualifiers: Hypothyroidism type: acquired Qualified Code(s): E03.9 - Hypothyroidism, unspecified Code(s): E03.9 - Hypothyroidism, unspecified Status: Acute Assessment and Plan: Continue home levothyroxine (11) Hypertension: Code(s): I10 - Essential (primary) hypertension Status: Acute Assessment and Plan: Continue amlodipine Monitor Subjective Date/time seen: 12/10/21 10:33 Interval history: Patient seen and examined Patient presented to the hospital shortness of breath CT scan shows pulmonary edema no evidence of pneumonia antibiotic was discontinued patient started on IV Lasix patient also has history of liver cirrhosis Echo shows moderate aortic stenosis Patient feels weak complains of shortness of breath specially at night Patient denies fever headache chest pain I am seeing the patient for shortness of breath Exam Narrative: Alert Chest bilateral basilar crackles Abdomen nontender nondistended CVS S1 + S2 Lower extremity edema Objective Data Vital Signs Vital Signs: Vital Signs - 24 hr 12/09/21 12:00 12/09/21 16:03 12/09/21 16:05 Temperature 98.7 F Pulse Rate 60 56 L 58 L Respiratory Rate 18 Blood Pressure 156/55 H Pulse Oximetry 98 12/09/21 18:18 12/09/21 20:00 12/09/21 21:47 Temperature 98.6 F 97.9 F Pulse Rate 56 L 57 L 64 Respiratory Rate 18 18 Blood Pressure 149/43 H 1
[2021-12-10 11:40] LABS: Glucose Point of Care 99 mg/dl (65-105)
[2021-12-10 16:27] LABS: Glucose Point of Care 92 mg/dl (65-105)
[2021-12-10] MEDS: traZODone HCL 50 MG TABLET 300 MG PO (20:22)
[2021-12-10] MEDS: PROPRANOLOL HCL 10 MG TABLET PO (20:27)
[2021-12-10 21:23] LABS: Glucose Point of Care 112 mg/dl (65-105)
[2021-12-11] VITALS (9 sets, daily range): BP systolic 124–135; BP diastolic 42–77; PULSE 60–107; RESP 16–18; TEMP 36.3–36.7; O2SAT 93–99
[2021-12-11] MEDS: LEVOTHYROXINE SODIUM 125 MCG TABLET PO (06:35)
[2021-12-11 07:40] LABS: Glucose Point of Care 97 mg/dl (65-105)
[2021-12-11] MEDS: lamoTRIgine 25 MG TABLET 50 MG PO ×2 (08:03→20:54)
[2021-12-11] MEDS: PROPRANOLOL HCL 10 MG TABLET PO ×2 (08:03→20:54)
[2021-12-11] MEDS: lamoTRIgine 100 MG TABLET PO ×2 (08:03→20:54)
[2021-12-11] MEDS: amLODIPine BESYLATE 5 MG TABLET 10 MG PO (08:03)
[2021-12-11] MEDS: LORazepam (*CRX) 0.5 MG TABLET PO ×3 (08:03→23:33)
[2021-12-11] MEDS: ESCITALOPRAM OXALATE 5 MG TABLET PO (08:03)
[2021-12-11] MEDS: PANTOPRAZOLE 40 MG TABLET PO (08:03)
[2021-12-11] MEDS: GABAPENTIN 300 MG CAPSULE 900 MG PO ×3 (08:03→20:52)
[2021-12-11] MEDS: FERROUS SULFATE 324 MG TABLET PO (08:04)
[2021-12-11] MEDS: FUROSEMIDE INJ 40 MG/4 ML VIAL 20 MG IV PUSH ×2 (08:04→16:39)
--- NOTE | 2021-12-11 09:51 | PM.IMPN ---
Progress Note: A&P Assessment and Plan (1) Abnormal chest x-ray: Code(s): R93.89 - Abnormal findings on diagnostic imaging of other specified body structures Status: Acute Assessment and Plan: Most likely pulmonary edema Started on IV Lasix DC IV antibiotics Monitor renal function closely Cardiology consult to assess for aortic stenosis contributing to pulmonary edema also to assess abnormal EKG (2) Cirrhosis of liver with ascites: Code(s): K74.60 - Unspecified cirrhosis of liver; R18.8 - Other ascites Status: Acute Assessment and Plan: +SOB CT of A/P-->Cirrhosis of the liver; small volume of ascites Continue propranolol IV Lasix 20 mg BID (3) Dyspnea: Code(s): R06.00 - Dyspnea, unspecified Status: Acute Assessment and Plan: Most likely acute on top of chronic diastolic CHF exacerbation ECHO-->EF 65-70%, grade I diastolic dysfunction, moderate aortic stenosis, mild AV regurgitation Will give IV Lasix 20 mg BID (4) Peripheral neuropathy: Code(s): G62.9 - Polyneuropathy, unspecified Status: Acute Assessment and Plan: Continue current treatment and monitor PT/OT consult (5) COPD (chronic obstructive pulmonary disease): Qualifiers: COPD type: unspecified COPD Qualified Code(s): J44.9 - Chronic obstructive pulmonary disease, unspecified Code(s): J44.9 - Chronic obstructive pulmonary disease, unspecified Status: Acute Assessment and Plan: No acute exacerbation Resume home LABA (6) Sinus bradycardia: Code(s): R00.1 - Bradycardia, unspecified Status: Acute Assessment and Plan: Tele monitoring ECHO-->EF 65-70%, grade I diastolic dysfunction, moderate av sclerosis, mild AV regurgitation Cardiology was consulted (7) Chronic anemia: Code(s): D64.9 - Anemia, unspecified Status: Acute Assessment and Plan: Iron def Hgb 10.2 Continue ferrous sulfate Transfuse if <7 Monitor (8) Chronic kidney disease, stage III (moderate): Qualifiers: Chronic kidney disease stage 3 subtype: stage 3b (GFR 30-44) Qualified Code(s): N18.32 - Chronic kidney disease, stage 3b Code(s): N18.3 - Chronic kidney disease, stage 3 (moderate) Status: Acute Assessment and Plan: Cr range from 1.7-2.3 Followed by nephrology o/p Avoid nephrotoxins Renally dose all meds Monitor (9) Type 2 diabetes mellitus: Code(s): E11.9 - Type 2 diabetes mellitus without complications Status: Acute Assessment and Plan: Hgb A1c 6 SSI, accuchecks, hypoglycemic protocol Monitor (10) Hypothyroidism: Qualifiers: Hypothyroidism type: acquired Qualified Code(s): E03.9 - Hypothyroidism, unspecified Code(s): E03.9 - Hypothyroidism, unspecified Status: Acute Assessment and Plan: Continue home levothyroxine (11) Hypertension: Code(s): I10 - Essential (primary) hypertension Status: Acute Assessment and Plan: Continue amlodipine Monitor Subjective Date/time seen: 12/11/21 09:51 Interval history: Patient seen and examined Patient presented to the hospital shortness of breath CT scan shows pulmonary edema no evidence of pneumonia antibiotic was discontinued patient started on IV Lasix patient also has history of liver cirrhosis Echo shows moderate aortic stenosis ECG shows bradycardia bundle branch block Patient feels weak complains of shortness of breath specially at night Patient denies fever headache chest pain I am seeing the patient for shortness of breath Exam Narrative: Alert Chest bilateral basilar crackles Abdomen nontender nondistended CVS S1 + S2 Lower extremity edema Objective Data Vital Signs Vital Signs: Vital Signs - 24 hr 12/10/21 10:25 12/10/21 12:01 12/10/21 15:00 Temperature 98.2 F 98.4 F Pulse Rate 50 L 63 51 L Respiratory Rate 16 18 Blood Pressure 132/50 L 141/46 H Pulse Oxi
[2021-12-11 10:11] LABS: Basophils Absolute Auto 0.1 K/mm3 (0.0-0.1); Basophils Percent Auto 1.2 % (0.2-1.2); Eosinophils Absolute Auto 0.2 K/mm3 (0-0.3); Hematocrit 28.7 % (37.0-47.0); Hemoglobin 9.1 g/dL (12.0-15.0); Immature Granulocyte Absolute 0.03 K/mm3 (0.00-0.031); Immature Granulocyte Percent A 0.5 % (0-0.5); Lymphocytes Absolute Auto 1.94 K/mm3 (0.9-3.2); Lymphocytes Percent Auto 33.9 % (18.3-44.2); Mean Corpuscular HGB Conc 31.7 g/dl (32-36); Mean Corpuscular Hemoglobin 30.3 pg (26-34); Mean Corpuscular Volume 95.7 fl (80-100); Mean Platelet Volume 10.4 fl (7.4-10.4); Monocytes Absolute Auto 0.4 K/mm3 (0.1-0.6); Monocytes Percent Auto 6.6 % (2.6-8.5); Neutrophils Absolute Auto 3.1 K/mm3 (1.3-6.7); Neutrophils Percent Auto 54.8 % (45.5-73.1); Platelet Count Result 125 k/mm3 (150-375); Red Cell Distribution Width 15.2 % (11.5-14.5); White Blood Count 5.7 K/mm3 (4.5-10.0)
[2021-12-11] MEDS: UMECLIDINIUM/VILANTEROL 62.5-25 MCG ELLIPTA 1 PUFF INHALATION (10:23)
[2021-12-11 10:24] LABS: Alanine Aminotransferase 23 U/L (4-35); Albumin Level 3.9 g/dL (3.5-5.1); Alkaline Phosphatase 319 U/L (38-126); Anion Gap 15 mmol/L (8-16); Aspartate Amino Transferase 56 U/L (14-36); Bilirubin,Total 0.3 mg/dL (0.2-1.3); Blood Urea Nitrogen 29 mg/dL (7-17); Calcium 9.5 mg/dL (8.4-10.2); Carbon Dioxide 22 mmol/L (22-30); Chloride 103 mmol/L (98-107); Estimated Glomerular Filt Rate 21; Glucose 129 mg/dL (65-110); Potassium 4.5 mmol/L (3.4-5.0); Sodium 140 mmol/L (137-145)
[2021-12-11 10:27] LABS: Ammonia 42 umol/L (9-30)
[2021-12-11 11:50] LABS: Glucose Point of Care 87 mg/dl (65-105)
--- NOTE | 2021-12-11 16:02 | PM.CNCAR ---
Assessment and Plan Assessment and plan (1) Acute on chronic diastolic CHF (congestive heart failure): Code(s): I50.33 - Acute on chronic diastolic (congestive) heart failure Status: Acute Assessment and Plan: patient was admitted with acute on chronic diastolic heart failure. She had an episode of heart failure in August and was started on furosemide 40 mg daily which was subsequently discontinued due to renal disease. She appears to be diuresing. Continue IV diuretics for at least 1 more day depending on renal function. Will need chronic oral diuretic tx Consider adding Jardiance 10 mg daily if/when her renal fxn improved, per the [employer] trial. Pt has DM but no h/o DKA. Doesn't appear to be hepatically metabolized to any great degree. (2) Aortic stenosis: Code(s): I35.0 - Nonrheumatic aortic (valve) stenosis Status: Acute Assessment and Plan: Some progression of aortic stenosis, now moderate, but not at the point that is causing problems. Dr. Silverman will continue to follow as an outpatient. No need to consider aortic valve replacement at this time. (3) Acute renal failure superimposed on stage 3 chronic kidney disease: Qualifiers: Acute renal failure type: unspecified Chronic kidney disease stage 3 subtype: stage 3a (GFR 45-59) Qualified Code(s): N17.9 - Acute kidney failure, unspecified; N18.31 - Chronic kidney disease, stage 3a Code(s): N17.9 - Acute kidney failure, unspecified; N18.30 - Chronic kidney disease, stage 3 unspecified Status: Acute Assessment and Plan: Renal function very is quite a lot, not far from baseline at this time. 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 female whom I was asked to see by DR. Siddiqui for my advice and opinion regarding Aortic stenosis acute CHF abnormal EKG, in consultation. The patient is followed by Dr. Silverman for her aortic stenosis and hypertension , last seen in June, not requiring any diuretic. She also has diabetes, Chronic kidney disease (Dr. Aquino),COPD, possible old stroke and history of tobacco use. Her echo in May 2021 showed normal LV function, diastolic dysfunction, moderate aortic stenosis with a valve area 1.7 cm2 with mild aortic regurgitation. Echo on this admission as below Showed moderate aortic stenosis with an aortic valve area of 1.0 cm and mean gradient of 19 mmHg. she was admitted in July for GI bleeding and found to have cirrhosis (2nd to fatty liver) as well as esophageal varices. She was readmitted in early August for acute on chronic diastolic heart failure and started on furosemide 40 mg daily. However the patient tells me it was subsequently discontinued because of her chronic kidney disease.. The patient came to the emergency room because of progressive dyspnea and edema with increase in abdominal girth over the last several months and she was Found to have acute on chronic diastolic heart failure. She has been started on furosemide 20 mg IV push b.i.d. and tells me she is urinating a lot more than average. She has a small amount of ascites and her ammonia level is mildly elevated. She sees a GI doctor in [place] for her cirrhosis and has a follow-up visit. Review of Systems Constitutional: Constitutional: Reports fatigue Eyes: Eyes: Reports blurry vision Comments: sees an eye MD ENT: Denies nasal congestion Cardiovascular: Cardi
[2021-12-11 16:26] LABS: Glucose Point of Care 106 mg/dl (65-105)
[2021-12-11] MEDS: traZODone HCL 50 MG TABLET 300 MG PO (20:53)
[2021-12-11 23:48] LABS: Glucose Point of Care 111 mg/dl (65-105)
[2021-12-12] VITALS (8 sets, daily range): BP systolic 120–143; BP diastolic 47–69; PULSE 51–76; RESP 16–20; TEMP 36.5–36.9; O2SAT 95–98
[2021-12-12 06:00] LABS: Basophils Absolute Auto 0.1 K/mm3 (0.0-0.1); Basophils Percent Auto 1.4 % (0.2-1.2); Eosinophils Absolute Auto 0.2 K/mm3 (0-0.3); Eosinophils Percent Auto 4.1 % (0-4.4); Hemoglobin 9.5 g/dL (12.0-15.0); Immature Granulocyte Absolute 0.01 K/mm3 (0.00-0.031); Immature Granulocyte Percent A 0.2 % (0-0.5); Lymphocytes Absolute Auto 1.81 K/mm3 (0.9-3.2); Lymphocytes Percent Auto 35.4 % (18.3-44.2); Mean Corpuscular HGB Conc 31.7 g/dl (32-36); Mean Corpuscular Volume 94.6 fl (80-100); Mean Platelet Volume 10.8 fl (7.4-10.4); Monocytes Absolute Auto 0.3 K/mm3 (0.1-0.6); Monocytes Percent Auto 6.3 % (2.6-8.5); Neutrophils Absolute Auto 2.7 K/mm3 (1.3-6.7); Neutrophils Percent Auto 52.6 % (45.5-73.1); Platelet Count Result 134 k/mm3 (150-375); Red Blood Count 3.17 M/mm3 (4.2-5.4); Red Cell Distribution Width 14.8 % (11.5-14.5); White Blood Count 5.1 K/mm3 (4.5-10.0)
[2021-12-12 06:05] LABS: Alanine Aminotransferase 25 U/L (4-35); Albumin Level 3.9 g/dL (3.5-5.1); Alkaline Phosphatase 360 U/L (38-126); Anion Gap 13 mmol/L (8-16); Aspartate Amino Transferase 59 U/L (14-36); Bilirubin,Total 0.4 mg/dL (0.2-1.3); Blood Urea Nitrogen 34 mg/dL (7-17); Calcium 9.8 mg/dL (8.4-10.2); Carbon Dioxide 21 mmol/L (22-30); Chloride 103 mmol/L (98-107); Estimated Glomerular Filt Rate 21; Glucose 107 mg/dL (65-110); Potassium 4.8 mmol/L (3.4-5.0); Sodium 137 mmol/L (137-145)
[2021-12-12] MEDS: LEVOTHYROXINE SODIUM 125 MCG TABLET PO (06:24)
[2021-12-12 07:47] LABS: Glucose Point of Care 103 mg/dl (65-105)
[2021-12-12] MEDS: PANTOPRAZOLE 40 MG TABLET PO (08:22)
[2021-12-12] MEDS: amLODIPine BESYLATE 5 MG TABLET 10 MG PO (08:22)
[2021-12-12] MEDS: ESCITALOPRAM OXALATE 5 MG TABLET PO (08:24)
[2021-12-12] MEDS: FERROUS SULFATE 324 MG TABLET PO (08:24)
[2021-12-12] MEDS: FUROSEMIDE INJ 40 MG/4 ML VIAL 20 MG IV PUSH (08:24)
[2021-12-12] MEDS: lamoTRIgine 100 MG TABLET PO ×2 (08:25→20:39)
[2021-12-12] MEDS: GABAPENTIN 300 MG CAPSULE 900 MG PO ×3 (08:25→20:40)
[2021-12-12] MEDS: lamoTRIgine 25 MG TABLET 50 MG PO ×2 (08:25→20:39)
[2021-12-12] MEDS: PROPRANOLOL HCL 10 MG TABLET PO (08:26)
[2021-12-12] MEDS: LORazepam (*CRX) 0.5 MG TABLET PO ×3 (08:30→23:44)
[2021-12-12] MEDS: UMECLIDINIUM/VILANTEROL 62.5-25 MCG ELLIPTA 1 PUFF INHALATION (08:38)
--- NOTE | 2021-12-12 09:45 | PM.IMPN ---
Progress Note: A&P Assessment and Plan (1) Abnormal chest x-ray: Code(s): R93.89 - Abnormal findings on diagnostic imaging of other specified body structures Status: Acute Assessment and Plan: Most likely pulmonary edema Started on IV Lasix will add IV albumin as renal function is not improving DC IV antibiotics Monitor renal function closely Cardiology consult to assess for aortic stenosis contributing to pulmonary edema also to assess abnormal EKG (2) Cirrhosis of liver with ascites: Code(s): K74.60 - Unspecified cirrhosis of liver; R18.8 - Other ascites Status: Acute Assessment and Plan: +SOB CT of A/P-->Cirrhosis of the liver; small volume of ascites Continue propranolol IV Lasix 20 mg BID (3) Dyspnea: Code(s): R06.00 - Dyspnea, unspecified Status: Acute Assessment and Plan: Most likely acute on top of chronic diastolic CHF exacerbation ECHO-->EF 65-70%, grade I diastolic dysfunction, moderate aortic stenosis, mild AV regurgitation Currently on IV Lasix (4) Peripheral neuropathy: Code(s): G62.9 - Polyneuropathy, unspecified Status: Acute Assessment and Plan: Continue current treatment and monitor PT/OT consult (5) COPD (chronic obstructive pulmonary disease): Qualifiers: COPD type: unspecified COPD Qualified Code(s): J44.9 - Chronic obstructive pulmonary disease, unspecified Code(s): J44.9 - Chronic obstructive pulmonary disease, unspecified Status: Acute Assessment and Plan: No acute exacerbation Resume home LABA (6) Sinus bradycardia: Code(s): R00.1 - Bradycardia, unspecified Status: Acute Assessment and Plan: Tele monitoring ECHO-->EF 65-70%, grade I diastolic dysfunction, moderate av sclerosis, mild AV regurgitation Cardiology was consulted (7) Chronic anemia: Code(s): D64.9 - Anemia, unspecified Status: Acute Assessment and Plan: Iron def Hgb 10.2 Continue ferrous sulfate Transfuse if <7 Monitor (8) Chronic kidney disease, stage III (moderate): Qualifiers: Chronic kidney disease stage 3 subtype: stage 3b (GFR 30-44) Qualified Code(s): N18.32 - Chronic kidney disease, stage 3b Code(s): N18.3 - Chronic kidney disease, stage 3 (moderate) Status: Acute Assessment and Plan: Cr range from 1.7 Followed by nephrology o/p Avoid nephrotoxins Renally dose all meds Monitor (9) Type 2 diabetes mellitus: Code(s): E11.9 - Type 2 diabetes mellitus without complications Status: Acute Assessment and Plan: Hgb A1c 6 SSI, accuchecks, hypoglycemic protocol Monitor (10) Hypothyroidism: Qualifiers: Hypothyroidism type: acquired Qualified Code(s): E03.9 - Hypothyroidism, unspecified Code(s): E03.9 - Hypothyroidism, unspecified Status: Acute Assessment and Plan: Continue home levothyroxine (11) Hypertension: Code(s): I10 - Essential (primary) hypertension Status: Acute Assessment and Plan: Continue amlodipine Monitor Subjective Date/time seen: 12/12/21 09:45 Interval history: Patient seen and examined Patient presented to the hospital shortness of breath CT scan shows pulmonary edema no evidence of pneumonia antibiotic was discontinued patient started on IV Lasix patient also has history of liver cirrhosis Echo shows moderate aortic stenosis ECG shows bradycardia bundle branch block Creatinine still elevated will add IV albumin Cardiology recommendation appreciated No plan for robotic valve replacement Patient denies fever headache chest pain I am seeing the patient for shortness of breath Exam Narrative: Alert Chest bilateral basilar crackles Abdomen nontender nondistended CVS S1 + S2 Lower extremity edema Objective Data Vital Signs Vital Signs: Vital Signs - 24 hr 12/11/21 10:24 12/11/21 12:00 12/11/21 16:00 Temperature 97.6 F 97.6
[2021-12-12 10:31] LABS: Ammonia 57 umol/L (9-30)
[2021-12-12] MEDS: ALBUMIN HUMAN 25% 25 GM/100 ML 100 ML IVPB ×2 (10:53→17:00)
--- NOTE | 2021-12-12 11:09 | PM.PNCARD ---
Progress Note: A&P Assessment and Plan (1) Acute on chronic diastolic CHF (congestive heart failure): Code(s): I50.33 - Acute on chronic diastolic (congestive) heart failure Status: Acute Assessment and Plan: Patient was admitted with volume overload due to acute on chronic diastolic heart failure due to diastolic dysfunction (rather than aortic stenosis) and cirrhosis. She had an episode of heart failure in August and was started on furosemide 40 mg daily which was subsequently discontinued due to renal disease. She appears to be diuresing. Some worsening of renal function since admission due to diuretic, but reasonable and expected. Change to po Lasix today Will need chronic oral diuretic tx on discharge Consider adding Jardiance 10 mg daily if/when her renal fxn improves, per the [employer] trial. Pt has DM but no h/of DKA. Jardiance doesn't appear to be hepatically metabolized to any great degree. Possible discharge tmr (2) Aortic stenosis: Code(s): I35.0 - Nonrheumatic aortic (valve) stenosis Status: Acute Assessment and Plan: Some progression of aortic stenosis, now moderate, but not at the point that is causing her CHF. Dr. Silverman will continue to follow as an outpatient. No need to consider aortic valve replacement at this time. (3) Acute renal failure superimposed on stage 3 chronic kidney disease: Qualifiers: Acute renal failure type: unspecified Chronic kidney disease stage 3 subtype: stage 3a (GFR 45-59) Qualified Code(s): N17.9 - Acute kidney failure, unspecified; N18.31 - Chronic kidney disease, stage 3a Code(s): N17.9 - Acute kidney failure, unspecified; N18.30 - Chronic kidney disease, stage 3 unspecified Status: Acute Assessment and Plan: Renal function varies quite a lot, not far from baseline at this time. 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 The patient is followed by Dr. Silverman for her aortic stenosis and hypertension. She also has diabetes, chronic kidney disease (Dr. Aquino), COPD, possible old stroke and history of tobacco use. Her echo in May 2021 showed normal LV function, diastolic dysfunction, moderate aortic stenosis with a valve area 1.7 cm2 with mild aortic regurgitation. Echo on this admission showed moderate aortic stenosis with an aortic valve area of 1.0 cm and mean gradient of 19 mmHg. She was admitted in July for GI bleeding and found to have cirrhosis (2nd to fatty liver) as well as esophageal varices. She was readmitted in early August for acute on chronic diastolic heart failure and started on furosemide 40 mg daily. However it was subsequently discontinued because of her chronic kidney disease. She was then readmitted 12/08/2021 for acuteon chronic CHF. Date is 12/12 2021: Yesterday I recommended we continue her IV furosemide, but did not recommend surgical intervention of the moderate aortic stenosis at this time as her mean gradient was only 19 mmHg and peak aortic velocity was only 3.1 m/sec (not severe ). On RA, SOB w/ activity, hasn't been OOB except to go to the BR. Urinating a lot. Review of Systems Constitutional: Constitutional: Reports no additional constitutional complaints and Reports fatigue Eyes: Eyes: Reports no additional eye complaints ENT: Denies epistaxis Cardiovascular: Cardiovascular: Denies chest pain and Denies pedal edema Respiratory: Respiratory: Reports dyspnea on exertion Gastrointestinal: Gastrointestinal: Denies abdominal pain Genitourinary: Genitourinary: Denies dysuria
[2021-12-12 11:49] LABS: Glucose Point of Care 89 mg/dl (65-105)
[2021-12-12 16:22] LABS: Glucose Point of Care 121 mg/dl (65-105)
[2021-12-12] MEDS: LACTULOSE 20 GM/30 ML UDC PO (17:00)
[2021-12-12] MEDS: PROPRANOLOL HCL 20 MG TABLET PO (20:39)
[2021-12-12] MEDS: traZODone HCL 50 MG TABLET 300 MG PO (20:40)
[2021-12-12 23:50] LABS: Glucose Point of Care 111 mg/dl (65-105)
[2021-12-13] VITALS (8 sets, daily range): BP systolic 118–130; BP diastolic 40–62; PULSE 52–64; RESP 14–20; TEMP 36.3–36.9; O2SAT 92–95
[2021-12-13] MEDS: LEVOTHYROXINE SODIUM 125 MCG TABLET PO (05:50)
[2021-12-13 05:54] LABS: Basophils Absolute Auto 0.1 K/mm3 (0.0-0.1); Basophils Percent Auto 1.1 % (0.2-1.2); Eosinophils Absolute Auto 0.2 K/mm3 (0-0.3); Hematocrit 29.6 % (37.0-47.0); Hemoglobin 9.3 g/dL (12.0-15.0); Immature Granulocyte Absolute 0.01 K/mm3 (0.00-0.031); Immature Granulocyte Percent A 0.2 % (0-0.5); Lymphocytes Absolute Auto 1.71 K/mm3 (0.9-3.2); Lymphocytes Percent Auto 30.3 % (18.3-44.2); Mean Corpuscular HGB Conc 31.4 g/dl (32-36); Mean Corpuscular Hemoglobin 30.2 pg (26-34); Mean Corpuscular Volume 96.1 fl (80-100); Mean Platelet Volume 10.8 fl (7.4-10.4); Monocytes Absolute Auto 0.4 K/mm3 (0.1-0.6); Monocytes Percent Auto 7.4 % (2.6-8.5); Neutrophils Absolute Auto 3.3 K/mm3 (1.3-6.7); Platelet Count Result 118 k/mm3 (150-375); Red Blood Count 3.08 M/mm3 (4.2-5.4); Red Cell Distribution Width 14.9 % (11.5-14.5); White Blood Count 5.6 K/mm3 (4.5-10.0)
[2021-12-13 06:10] LABS: Alanine Aminotransferase 68 U/L (4-35); Albumin Level 4.5 g/dL (3.5-5.1); Alkaline Phosphatase 426 U/L (38-126); Anion Gap 13 mmol/L (8-16); Aspartate Amino Transferase 174 U/L (14-36); Bilirubin,Total 0.4 mg/dL (0.2-1.3); Blood Urea Nitrogen 40 mg/dL (7-17); Calcium 10.2 mg/dL (8.4-10.2); Carbon Dioxide 22 mmol/L (22-30); Chloride 104 mmol/L (98-107); Estimated Glomerular Filt Rate 20; Glucose 131 mg/dL (65-110); Potassium 5.2 mmol/L (3.4-5.0); Sodium 139 mmol/L (137-145)
[2021-12-13 08:04] LABS: Glucose Point of Care 114 mg/dl (65-105)
[2021-12-13] MEDS: ALBUMIN HUMAN 25% 25 GM/100 ML 100 ML IVPB ×2 (09:32→16:15)
[2021-12-13] MEDS: GABAPENTIN 300 MG CAPSULE 900 MG PO ×3 (09:33→20:10)
[2021-12-13] MEDS: PANTOPRAZOLE 40 MG TABLET PO (09:33)
[2021-12-13] MEDS: LACTULOSE 20 GM/30 ML UDC PO ×3 (09:33→16:14)
[2021-12-13] MEDS: FERROUS SULFATE 324 MG TABLET PO (09:34)
[2021-12-13] MEDS: amLODIPine BESYLATE 5 MG TABLET 10 MG PO (09:34)
[2021-12-13] MEDS: FUROSEMIDE 40 MG TABLET PO (09:34)
[2021-12-13] MEDS: ESCITALOPRAM OXALATE 5 MG TABLET PO (09:34)
[2021-12-13] MEDS: lamoTRIgine 100 MG TABLET PO ×2 (09:35→20:10)
[2021-12-13] MEDS: lamoTRIgine 25 MG TABLET 50 MG PO ×2 (09:35→20:11)
[2021-12-13] MEDS: PROPRANOLOL HCL 20 MG TABLET PO ×2 (09:38→20:10)
[2021-12-13] MEDS: LORazepam (*CRX) 0.5 MG TABLET PO ×3 (09:38→23:54)
--- NOTE | 2021-12-13 09:45 | PM.IMPN ---
Progress Note: A&P Assessment and Plan (1) Abnormal chest x-ray: Code(s): R93.89 - Abnormal findings on diagnostic imaging of other specified body structures Status: Acute Assessment and Plan: Most likely pulmonary edema Started on IV Lasix switch it to oral Lasix DC IV antibiotics Monitor renal function closely Cardiology consult to assess for aortic stenosis contributing to pulmonary edema also to assess abnormal EKG continue medical management for now follow-up with cardiology as outpatient (2) Cirrhosis of liver with ascites: Code(s): K74.60 - Unspecified cirrhosis of liver; R18.8 - Other ascites Status: Acute Assessment and Plan: +SOB CT of A/P-->Cirrhosis of the liver; small volume of ascites Continue propranolol Oral diuretics (3) Dyspnea: Code(s): R06.00 - Dyspnea, unspecified Status: Acute Assessment and Plan: Most likely acute on top of chronic diastolic CHF exacerbation ECHO-->EF 65-70%, grade I diastolic dysfunction, moderate aortic stenosis, mild AV regurgitation Currently on IV Lasix (4) Peripheral neuropathy: Code(s): G62.9 - Polyneuropathy, unspecified Status: Acute Assessment and Plan: Continue current treatment and monitor PT/OT consult (5) COPD (chronic obstructive pulmonary disease): Qualifiers: COPD type: unspecified COPD Qualified Code(s): J44.9 - Chronic obstructive pulmonary disease, unspecified Code(s): J44.9 - Chronic obstructive pulmonary disease, unspecified Status: Acute Assessment and Plan: No acute exacerbation Resume home LABA (6) Sinus bradycardia: Code(s): R00.1 - Bradycardia, unspecified Status: Acute Assessment and Plan: Tele monitoring ECHO-->EF 65-70%, grade I diastolic dysfunction, moderate av sclerosis, mild AV regurgitation Cardiology was consulted (7) Chronic anemia: Code(s): D64.9 - Anemia, unspecified Status: Acute Assessment and Plan: Iron def Hgb 10.2 Continue ferrous sulfate Transfuse if <7 Monitor (8) Chronic kidney disease, stage III (moderate): Qualifiers: Chronic kidney disease stage 3 subtype: stage 3b (GFR 30-44) Qualified Code(s): N18.32 - Chronic kidney disease, stage 3b Code(s): N18.3 - Chronic kidney disease, stage 3 (moderate) Status: Acute Assessment and Plan: Cr range from 1.7 worsening expected due to diuresis Followed by nephrology o/p Avoid nephrotoxins Renally dose all meds Monitor (9) Type 2 diabetes mellitus: Code(s): E11.9 - Type 2 diabetes mellitus without complications Status: Acute Assessment and Plan: Hgb A1c 6 SSI, accuchecks, hypoglycemic protocol Monitor (10) Hypothyroidism: Qualifiers: Hypothyroidism type: acquired Qualified Code(s): E03.9 - Hypothyroidism, unspecified Code(s): E03.9 - Hypothyroidism, unspecified Status: Acute Assessment and Plan: Continue home levothyroxine (11) Hypertension: Code(s): I10 - Essential (primary) hypertension Status: Acute Assessment and Plan: Continue amlodipine Monitor (12) Hepatic encephalopathy: Code(s): K72.90 - Hepatic failure, unspecified without coma Status: Acute Assessment and Plan: Acute metabolic encephalopathy most likely related to hepatic encephalopathy ammonia level 57 increase the dose of lactulose follow-up ammonia level Subjective Date/time seen: 12/13/21 09:45 Interval history: Patient seen and examined Patient presented to the hospital shortness of breath CT scan shows pulmonary edema no evidence of pneumonia antibiotic was discontinued patient started on IV Lasix patient also has history of liver cirrhosis was switched to oral diuretics renal function mildly worsening as expected for diuresis patient also has elevated ammonia worsening patient has intermittent confusion lactulose dose was increas
[2021-12-13 10:43] LABS: Ammonia 39 umol/L (9-30)
--- NOTE | 2021-12-13 11:01 | PM.PNCARD ---
Progress Note: A&P Assessment and Plan (1) Acute on chronic diastolic CHF (congestive heart failure): Code(s): I50.33 - Acute on chronic diastolic (congestive) heart failure Status: Acute Assessment and Plan: Patient was admitted with acute on chronic diastolic heart failure due to diastolic dysfunction (rather than aortic stenosis) and cirrhosis. She had an episode of heart failure in August and was started on furosemide 40 mg daily which was subsequently discontinued due to renal disease. Volume status has improved. Continue oral diuresis with furosemide. Continue to monitor renal function and electrolytes. Patient will need maintenance diuresis with furosemide at discharge. Will consider adding SGLT2 inhibitor as an outpatient if/when her renal fxn improves. Anticipated discharge later today or tomorrow. (2) Aortic stenosis: Code(s): I35.0 - Nonrheumatic aortic (valve) stenosis Status: Acute Assessment and Plan: Some progression of aortic stenosis, now moderate, but not at the point that is causing her CHF. Continued clinical and echocardiographic surveillance as an outpatient. (3) Acute renal failure superimposed on stage 3 chronic kidney disease: Qualifiers: Acute renal failure type: unspecified Chronic kidney disease stage 3 subtype: stage 3a (GFR 45-59) Qualified Code(s): N17.9 - Acute kidney failure, unspecified; N18.31 - Chronic kidney disease, stage 3a Code(s): N17.9 - Acute kidney failure, unspecified; N18.30 - Chronic kidney disease, stage 3 unspecified Status: Acute Assessment and Plan: Monitor renal function. 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 The patient is followed by Dr. iSlverman for her aortic stenosis and hypertension. She also has diabetes, chronic kidney disease (Dr. Aquino), COPD, possible old stroke and history of tobacco use. Her echo in May 2021 showed normal LV function, diastolic dysfunction, moderate aortic stenosis with a valve area 1.7 cm2 with mild aortic regurgitation. Echo on this admission showed moderate aortic stenosis with an aortic valve area of 1.0 cm and mean gradient of 19 mmHg. She was admitted in July for GI bleeding and found to have cirrhosis (2nd to fatty liver) as well as esophageal varices. She was readmitted in early August for acute on chronic diastolic heart failure and started on furosemide 40 mg daily. However it was subsequently discontinued because of her chronic kidney disease. She was then readmitted 12/08/2021 for acuteon chronic CHF. Date is 12/12 2021: Yesterday I recommended we continue her IV furosemide, but did not recommend surgical intervention of the moderate aortic stenosis at this time as her mean gradient was only 19 mmHg and peak aortic velocity was only 3.1 m/sec (not severe ). On RA, SOB w/ activity, hasn't been OOB except to go to the BR. Urinating a lot. Date of service 12/13/2021-symptom and in her dyspnea. She denies any chest pain, palpitations or dizziness. Exam Narrative: PHYSICAL EXAMINATION: GENERAL: Alert, oriented, no acute distress MENTAL STATUS: affect appropriate to mood EYES: Extraocular movements intact, no pallor EARS: External ears appear normal, hearing grossly normal NOSE: Normal and patent, no discharge MOUTH: Mucous membranes moist, tongue normal NECK: Supple, no JVD CHEST: Scattered crackles HEART: Normal rate, regular rhythm, normal S1 and S2, no audible murmurs ABDOMEN: Mildly distended, nontender NEUROLOGICAL: Alert, oriented, normal speech, no gross motor
[2021-12-13] MEDS: SODIUM POLYSTYRENE SULFONONATE 15 GM/60 ML BTL PO (11:05)
[2021-12-13 11:36] LABS: Glucose Point of Care 94 mg/dl (65-105)
[2021-12-13 16:28] LABS: Glucose Point of Care 155 mg/dl (65-105)
[2021-12-13] MEDS: traZODone HCL 50 MG TABLET 300 MG PO (20:11)
[2021-12-13 21:35] LABS: Glucose Point of Care 147 mg/dl (65-105)
[2021-12-14] VITALS (7 sets, daily range): BP systolic 118–135; BP diastolic 42–62; PULSE 48–94; RESP 16–18; TEMP 36.3–36.9; O2SAT 94–96
[2021-12-14 06:07] LABS: Basophils Absolute Auto 0.1 K/mm3 (0.0-0.1); Eosinophils Absolute Auto 0.2 K/mm3 (0-0.3); Eosinophils Percent Auto 3.8 % (0-4.4); Hematocrit 28.5 % (37.0-47.0); Immature Granulocyte Absolute 0.01 K/mm3 (0.00-0.031); Immature Granulocyte Percent A 0.2 % (0-0.5); Immature Platelet Fraction Pct 6.2 % (0.9-11.2); Lymphocytes Absolute Auto 1.32 K/mm3 (0.9-3.2); Lymphocytes Percent Auto 26.2 % (18.3-44.2); Mean Corpuscular HGB Conc 31.6 g/dl (32-36); Mean Corpuscular Hemoglobin 30.4 pg (26-34); Mean Corpuscular Volume 96.3 fl (80-100); Mean Platelet Volume 10.9 fl (7.4-10.4); Monocytes Absolute Auto 0.3 K/mm3 (0.1-0.6); Monocytes Percent Auto 6.8 % (2.6-8.5); Neutrophils Absolute Auto 3.1 K/mm3 (1.3-6.7); Platelet Count Result 123 k/mm3 (150-375); Red Blood Count 2.96 M/mm3 (4.2-5.4)
[2021-12-14 06:21] LABS: Alanine Aminotransferase 80 U/L (4-35); Albumin Level 4.7 g/dL (3.5-5.1); Alkaline Phosphatase 410 U/L (38-126); Anion Gap 16 mmol/L (8-16); Aspartate Amino Transferase 158 U/L (14-36); Bilirubin,Total 0.3 mg/dL (0.2-1.3); Blood Urea Nitrogen 36 mg/dL (7-17); Calcium 9.2 mg/dL (8.4-10.2); Carbon Dioxide 20 mmol/L (22-30); Chloride 104 mmol/L (98-107); Estimated Glomerular Filt Rate 22; Glucose 138 mg/dL (65-110); Potassium 4.5 mmol/L (3.4-5.0); Sodium 140 mmol/L (137-145)
[2021-12-14] MEDS: LEVOTHYROXINE SODIUM 125 MCG TABLET PO (06:28)
[2021-12-14] MEDS: FUROSEMIDE 40 MG TABLET PO (08:15)
[2021-12-14] MEDS: PROPRANOLOL HCL 20 MG TABLET PO ×2 (08:15→19:53)
[2021-12-14] MEDS: LACTULOSE 20 GM/30 ML UDC PO ×3 (08:15→16:48)
[2021-12-14] MEDS: PANTOPRAZOLE 40 MG TABLET PO (08:16)
[2021-12-14] MEDS: lamoTRIgine 100 MG TABLET PO ×2 (08:17→19:52)
[2021-12-14] MEDS: FERROUS SULFATE 324 MG TABLET PO (08:17)
[2021-12-14] MEDS: GABAPENTIN 300 MG CAPSULE 900 MG PO ×3 (08:17→19:50)
[2021-12-14] MEDS: amLODIPine BESYLATE 5 MG TABLET 10 MG PO (08:17)
[2021-12-14] MEDS: ESCITALOPRAM OXALATE 5 MG TABLET PO (08:17)
[2021-12-14 08:22] LABS: Glucose Point of Care 178 mg/dl (65-105)
[2021-12-14] MEDS: LORazepam (*CRX) 0.5 MG TABLET PO ×3 (08:22→23:25)
[2021-12-14] MEDS: ALBUMIN HUMAN 25% 25 GM/100 ML 100 ML IVPB (08:22)
[2021-12-14] MEDS: lamoTRIgine 25 MG TABLET 50 MG PO ×2 (08:37→19:51)
[2021-12-14] MEDS: UMECLIDINIUM/VILANTEROL 62.5-25 MCG ELLIPTA 1 PUFF INHALATION (08:41)
--- NOTE | 2021-12-14 08:52 | PM.IMPN ---
Progress Note: A&P Assessment and Plan (1) Abnormal chest x-ray: Code(s): R93.89 - Abnormal findings on diagnostic imaging of other specified body structures Status: Acute Assessment and Plan: Most likely pulmonary edema Started on IV Lasix switched to oral Lasix DC IV antibiotics Monitor renal function closely Cardiology consult to assess for aortic stenosis contributing to pulmonary edema also to assess abnormal EKG continue medical management for now follow-up with cardiology as outpatient (2) Cirrhosis of liver with ascites: Code(s): K74.60 - Unspecified cirrhosis of liver; R18.8 - Other ascites Status: Acute Assessment and Plan: +SOB CT of A/P-->Cirrhosis of the liver; small volume of ascites Continue propranolol Oral diuretics DC IV albumin (3) Dyspnea: Code(s): R06.00 - Dyspnea, unspecified Status: Acute Assessment and Plan: Most likely acute on top of chronic diastolic CHF exacerbation ECHO-->EF 65-70%, grade I diastolic dysfunction, moderate aortic stenosis, mild AV regurgitation Currently on Lasix (4) Peripheral neuropathy: Code(s): G62.9 - Polyneuropathy, unspecified Status: Acute Assessment and Plan: Continue current treatment and monitor PT/OT consult (5) COPD (chronic obstructive pulmonary disease): Qualifiers: COPD type: unspecified COPD Qualified Code(s): J44.9 - Chronic obstructive pulmonary disease, unspecified Code(s): J44.9 - Chronic obstructive pulmonary disease, unspecified Status: Acute Assessment and Plan: No acute exacerbation Resume home LABA (6) Sinus bradycardia: Code(s): R00.1 - Bradycardia, unspecified Status: Acute Assessment and Plan: Tele monitoring ECHO-->EF 65-70%, grade I diastolic dysfunction, moderate av sclerosis, mild AV regurgitation Cardiology was consulted (7) Chronic anemia: Code(s): D64.9 - Anemia, unspecified Status: Acute Assessment and Plan: Iron def Hgb 10.2 Continue ferrous sulfate Transfuse if <7 Monitor (8) Chronic kidney disease, stage III (moderate): Qualifiers: Chronic kidney disease stage 3 subtype: stage 3b (GFR 30-44) Qualified Code(s): N18.32 - Chronic kidney disease, stage 3b Code(s): N18.3 - Chronic kidney disease, stage 3 (moderate) Status: Acute Assessment and Plan: Cr range from 1.7 worsening expected due to diuresis Followed by nephrology o/p Avoid nephrotoxins Renally dose all meds Monitor (9) Type 2 diabetes mellitus: Code(s): E11.9 - Type 2 diabetes mellitus without complications Status: Acute Assessment and Plan: Hgb A1c 6 SSI, accuchecks, hypoglycemic protocol Monitor (10) Hypothyroidism: Qualifiers: Hypothyroidism type: acquired Qualified Code(s): E03.9 - Hypothyroidism, unspecified Code(s): E03.9 - Hypothyroidism, unspecified Status: Acute Assessment and Plan: Continue home levothyroxine (11) Hypertension: Code(s): I10 - Essential (primary) hypertension Status: Acute Assessment and Plan: Continue amlodipine Monitor (12) Hepatic encephalopathy: Code(s): K72.90 - Hepatic failure, unspecified without coma Status: Acute Assessment and Plan: Acute metabolic encephalopathy most likely related to hepatic encephalopathy ammonia level 57 improved Plan for discharge to rehab Subjective Date/time seen: 12/14/21 08:52 Interval history: Patient seen and examined Patient presented to the hospital shortness of breath CT scan shows pulmonary edema no evidence of pneumonia antibiotic was discontinued patient started on IV Lasix patient also has history of liver cirrhosis was switched to oral diuretics renal function mildly worsening as expected for diuresis patient also has elevated ammonia worsening patient has intermittent confusion lactulose dose was increased to
[2021-12-14 11:57] LABS: Glucose Point of Care 99 mg/dl (65-105)
[2021-12-14 13:42] LABS: Ammonia 28 umol/L (9-30)
[2021-12-14 16:22] LABS: Glucose Point of Care 118 mg/dl (65-105)
[2021-12-14] MEDS: traZODone HCL 50 MG TABLET 300 MG PO (19:53)
[2021-12-14 20:42] LABS: Glucose Point of Care 170 mg/dl (65-105)
[2021-12-15 04:00] VITALS: BP 131/48; PULSE 52; RESP 18; TEMP 36.6; O2SAT 97
[2021-12-15 05:37] LABS: Basophils Absolute Auto 0.1 K/mm3 (0.0-0.1); Basophils Percent Auto 0.9 % (0.2-1.2); Eosinophils Absolute Auto 0.2 K/mm3 (0-0.3); Eosinophils Percent Auto 3.6 % (0-4.4); Hemoglobin 9.3 g/dL (12.0-15.0); Immature Granulocyte Absolute 0.02 K/mm3 (0.00-0.031); Immature Granulocyte Percent A 0.4 % (0-0.5); Immature Platelet Fraction Pct 5.9 % (0.9-11.2); Lymphocytes Absolute Auto 1.59 K/mm3 (0.9-3.2); Lymphocytes Percent Auto 28.4 % (18.3-44.2); Mean Corpuscular Hemoglobin 30.1 pg (26-34); Mean Corpuscular Volume 97.1 fl (80-100); Mean Platelet Volume 11.2 fl (7.4-10.4); Monocytes Absolute Auto 0.3 K/mm3 (0.1-0.6); Monocytes Percent Auto 5.5 % (2.6-8.5); Neutrophils Absolute Auto 3.4 K/mm3 (1.3-6.7); Neutrophils Percent Auto 61.2 % (45.5-73.1); Platelet Count Result 134 k/mm3 (150-375); Red Blood Count 3.09 M/mm3 (4.2-5.4); Red Cell Distribution Width 14.8 % (11.5-14.5); White Blood Count 5.6 K/mm3 (4.5-10.0)
[2021-12-15] MEDS: LEVOTHYROXINE SODIUM 125 MCG TABLET PO (06:04)
[2021-12-15 07:52] LABS: Glucose Point of Care 111 mg/dl (65-105)
--- NOTE | 2021-12-15 08:37 | PM.DS ---
DS: Admitting Diagnosis Discharge Date 12/15/2021 Admitting Diagnosis Shortness of breath DS: Discharge Diagnosis Discharge Diagnosis (1) Abnormal chest x-ray: Code(s): R93.89 - Abnormal findings on diagnostic imaging of other specified body structures Status: Acute Assessment and Plan: Most likely pulmonary edema Started on IV Lasix switched to oral Lasix DC IV antibiotics Monitor renal function repeat CMP in 1 week Cardiology consult to assess for aortic stenosis contributing to pulmonary edema also to assess abnormal EKG continue medical management for now follow-up with cardiology as outpatient (2) Cirrhosis of liver with ascites: Code(s): K74.60 - Unspecified cirrhosis of liver; R18.8 - Other ascites Status: Acute Assessment and Plan: +SOB CT of A/P-->Cirrhosis of the liver; small volume of ascites Continue propranolol Oral diuretics DC IV albumin Patient will need to follow-up with GI as outpatient (3) Dyspnea: Code(s): R06.00 - Dyspnea, unspecified Status: Acute Assessment and Plan: Most likely acute on top of chronic diastolic CHF exacerbation ECHO-->EF 65-70%, grade I diastolic dysfunction, moderate aortic stenosis, mild AV regurgitation Currently on Lasix (4) Peripheral neuropathy: Code(s): G62.9 - Polyneuropathy, unspecified Status: Acute Assessment and Plan: Continue current treatment and monitor PT/OT consult (5) COPD (chronic obstructive pulmonary disease): Qualifiers: COPD type: unspecified COPD Qualified Code(s): J44.9 - Chronic obstructive pulmonary disease, unspecified Code(s): J44.9 - Chronic obstructive pulmonary disease, unspecified Status: Acute Assessment and Plan: No acute exacerbation Resume home LABA (6) Sinus bradycardia: Code(s): R00.1 - Bradycardia, unspecified Status: Acute Assessment and Plan: Tele monitoring ECHO-->EF 65-70%, grade I diastolic dysfunction, moderate av sclerosis, mild AV regurgitation Cardiology was consulted follow-up as outpatient (7) Chronic anemia: Code(s): D64.9 - Anemia, unspecified Status: Acute Assessment and Plan: Iron def Hgb 10.2 Continue ferrous sulfate Transfuse if <7 Monitor repeat CBC in 1 week (8) Chronic kidney disease, stage III (moderate): Qualifiers: Chronic kidney disease stage 3 subtype: stage 3b (GFR 30-44) Qualified Code(s): N18.32 - Chronic kidney disease, stage 3b Code(s): N18.3 - Chronic kidney disease, stage 3 (moderate) Status: Acute Assessment and Plan: Cr range from 1.7 worsening expected due to diuresis Followed by nephrology o/p Avoid nephrotoxins Renally dose all meds Monitor (9) Type 2 diabetes mellitus: Code(s): E11.9 - Type 2 diabetes mellitus without complications Status: Acute Assessment and Plan: Hgb A1c 6 Diet and exercise Accu-Chek twice a day (10) Hypothyroidism: Qualifiers: Hypothyroidism type: acquired Qualified Code(s): E03.9 - Hypothyroidism, unspecified Code(s): E03.9 - Hypothyroidism, unspecified Status: Acute Assessment and Plan: Continue home levothyroxine (11) Hypertension: Code(s): I10 - Essential (primary) hypertension Status: Acute Assessment and Plan: Continue amlodipine Monitor (12) Hepatic encephalopathy: Code(s): K72.90 - Hepatic failure, unspecified without coma Status: Acute Assessment and Plan: Acute metabolic encephalopathy most likely related to hepatic encephalopathy ammonia level 57 improved Patient will be discharged on lactulose Wean off benzodiazepine as outpatient Avoid narcotics as much as possible Avoid constipation DS: Summary Hospital Course Hospital Course: Patient was admitted to the hospital with shortness of breath was found to have acute and of chronic diastolic CHF exacerbation associated with
[2021-12-15] MEDS: LACTULOSE 20 GM/30 ML UDC PO (09:05)
[2021-12-15] MEDS: amLODIPine BESYLATE 5 MG TABLET 10 MG PO (09:05)
[2021-12-15] MEDS: ESCITALOPRAM OXALATE 5 MG TABLET PO (09:05)
[2021-12-15] MEDS: FUROSEMIDE 40 MG TABLET PO (09:06)
[2021-12-15] MEDS: GABAPENTIN 300 MG CAPSULE 900 MG PO (09:06)
[2021-12-15] MEDS: lamoTRIgine 25 MG TABLET 50 MG PO (09:06)
[2021-12-15] MEDS: PROPRANOLOL HCL 20 MG TABLET PO (09:06)
[2021-12-15] MEDS: PANTOPRAZOLE 40 MG TABLET PO (09:06)
[2021-12-15] MEDS: FERROUS SULFATE 324 MG TABLET PO (09:07)
[2021-12-15] MEDS: lamoTRIgine 100 MG TABLET PO (09:07)
[2021-12-15] MEDS: LORazepam (*CRX) 0.5 MG TABLET PO (09:13)
[2021-12-15 09:28] VITALS: O2SAT 96
[2021-12-15] MEDS: UMECLIDINIUM/VILANTEROL 62.5-25 MCG ELLIPTA 1 PUFF INHALATION (09:28)
[2021-12-15 10:00] VITALS: BP 140/55; PULSE 51; RESP 18; TEMP 36.1; O2SAT 98
[2021-12-15 11:23] LABS: EDCOVIDSCREEN Negative (Negative)
[2021-12-15 11:42] LABS: Glucose Point of Care 106 mg/dl (65-105)
== END 2021-12-15 12:20 | DRG 291 ==
LOC: ANHED 14:40 → ANH2MED 16:00
PROVIDERS: Nurse Practitioner Adult Health; Physician Assistant; Admitting Provider Internal Medicine; Emergency Provider Nurse Practitioner; PCP Internal Medicine; Visit Provider Internal Medicine
DX: I13.0 Hypertensive heart and chronic kidney disease with heart failure and stage 1 through stage 4 chronic kidney disease, or unspecified chronic kidney disease (principal); I50.33 Acute on chronic diastolic (congestive) heart failure; G93.41 Metabolic encephalopathy; R18.8 Other ascites; N17.9 Acute kidney failure, unspecified; Z20.822 Contact with and (suspected) exposure to COVID-19; K74.60 Unspecified cirrhosis of liver; J44.9 Chronic obstructive pulmonary disease, unspecified; R00.1 Bradycardia, unspecified; E11.22 Type 2 diabetes mellitus with diabetic chronic kidney disease; N18.32 Chronic kidney disease, stage 3b; D64.9 Anemia, unspecified; E03.9 Hypothyroidism, unspecified; K72.90 Hepatic failure, unspecified without coma; E11.42 Type 2 diabetes mellitus with diabetic polyneuropathy; I35.0 Nonrheumatic aortic (valve) stenosis; F31.9 Bipolar disorder, unspecified; D50.9 Iron deficiency anemia, unspecified; K58.9 Irritable bowel syndrome, unspecified; K21.9 Gastro-esophageal reflux disease without esophagitis; K75.81 Nonalcoholic steatohepatitis (NASH); M19.90 Unspecified osteoarthritis, unspecified site; M81.0 Age-related osteoporosis without current pathological fracture; Z66 Do not resuscitate; Z87.891 Personal history of nicotine dependence; Z86.73 Personal history of transient ischemic attack (TIA), and cerebral infarction without residual deficits; Z90.49 Acquired absence of other specified parts of digestive tract; Z98.42 Cataract extraction status, left eye; Z98.41 Cataract extraction status, right eye
CPT/HCPCS: 36415; 36600; 71046; 71250; 80048; 80053; 82140; 82607; 82805; 82948; 83036; 83735; 83880; 84145; 84439; 84443; 84484; 85025; 85027; 85055; 86140; 87070; 87205; 87426; 87804; 92610; 93005; 93306; 94640; 94762; 96365; 96366; 96367; 97110; 97116; 97161; 97165; 97530; 97535; 99285; A9270; C9803; G0378; J0696; J1940; P9047; U0003; U0005

== ENCOUNTER 2022-03-25 13:10 | Outpatient (CLI) | payer MEDICARE, SELFPAY ==
[2022-03-25 14:34] LABS: Basophils Absolute Auto 0.1 K/mm3 (0.0-0.1); Basophils Percent Auto 0.8 % (0.2-1.2); Eosinophils Absolute Auto 0.3 K/mm3 (0-0.3); Eosinophils Percent Auto 4.1 % (0-4.4); Hematocrit 36.1 % (37.0-47.0); Immature Granulocyte Absolute 0.01 K/mm3 (0.00-0.031); Immature Granulocyte Percent A 0.2 % (0-0.5); Lymphocytes Absolute Auto 1.35 K/mm3 (0.9-3.2); Lymphocytes Percent Auto 22.2 % (18.3-44.2); Mean Corpuscular HGB Conc 30.5 g/dl (32-36); Mean Corpuscular Hemoglobin 29.3 pg (26-34); Mean Platelet Volume 10.8 fl (7.4-10.4); Monocytes Absolute Auto 0.4 K/mm3 (0.1-0.6); Monocytes Percent Auto 6.4 % (2.6-8.5); Neutrophils Percent Auto 66.3 % (45.5-73.1); Platelet Count Result 146 k/mm3 (150-375); Red Blood Count 3.76 M/mm3 (4.2-5.4); Red Cell Distribution Width 14.8 % (11.5-14.5); White Blood Count 6.1 K/mm3 (4.5-10.0)
[2022-03-25 14:49] LABS: Alanine Aminotransferase 27 U/L (4-35); Albumin Level 4.5 g/dL (3.5-5.1); Alkaline Phosphatase 447 U/L (38-126); Anion Gap 11 mmol/L (8-16); Aspartate Amino Transferase 64 U/L (14-36); Bilirubin,Total 0.5 mg/dL (0.2-1.3); Blood Urea Nitrogen 36 mg/dL (7-17); Calcium 9.2 mg/dL (8.4-10.2); Carbon Dioxide 23 mmol/L (22-30); Chloride 104 mmol/L (98-107); Estimated Glomerular Filt Rate 23; Glucose 115 mg/dL (65-110); Potassium 4.5 mmol/L (3.4-5.0); Sodium 138 mmol/L (137-145)
[2022-03-25 14:55] LABS: NT Pro B Type Natriuretic Pept 819 pg/mL (5-100)
[2022-03-25 15:24] LABS: Creatinine Urine 62.8 mg/dL
[2022-03-25 15:52] LABS: Hemoglobin A1C 6.2 % (<5.7)
[2022-03-25 16:02] LABS: MALB Creatinine Ratio 732.3 mg/g (0-30); Microalbumin Urine Random 459.9 mg/L (0-16.7)
== END 2022-03-25 13:11 | disposition home or self-care (01) ==
PROVIDERS: PCP Internal Medicine; Visit Provider Internal Medicine
DX: E03.9 Hypothyroidism, unspecified (principal); E11.22 Type 2 diabetes mellitus with diabetic chronic kidney disease; N18.32 Chronic kidney disease, stage 3b; R60.0 Localized edema; D64.9 Anemia, unspecified; I50.20 Unspecified systolic (congestive) heart failure
CPT/HCPCS: 36415; 80053; 82043; 82728; 83036; 83880; 84443; 85025

== ENCOUNTER 2022-05-17 09:43 | Inpatient (IN) | payer MEDICARE, MEDICAID, SELFPAY ==
[2022-05-17] VITALS (20 sets, daily range): BP systolic 100–171; BP diastolic 44–156; PULSE 50–77; RESP 11–21; TEMP 36.9–37.4; O2SAT 95–100
--- NOTE | ~2022-05-17 | CT_ITS ---
EXAMINATION: CT brain wo con DATE: 05/17/2022 10:26 INDICATION: Slurred speech, right sided paresis. Multiple falls yesterday. Left periorbital bruising. Double vision TECHNIQUE: Computed tomography (CT) of the head was performed without intravenous contrast. The mA wa s adjusted according to patient size. Iterative reconstruction technique was employed. Exam dose: 60 5.33 mGy-cm total exam DLP. COMPARISON: January 19, 2020 CT brain FINDINGS: There is encephalomalacia at the left basal ganglia the site of previous hematoma. No intracranial mass lesion or recent hemorrhage. No midline shifts or mass effect. Prominent bilateral carotid siphon internal carotid artery calcifications and bilateral vertebral art alfred and basilar artery calcification. There is nonspecific diminished attenuation of the cerebral whi te matter, likely due to chronic small vessel ischemic changes. Moderate cerebellar and cerebral volume loss. No subdural or epidural hematoma is detected. There is prominent mucoperiosteal thickening of the sphenoid sinuses and opacification of a posterior left ethmoid air cell. The mastoid air cells are normally developed and aerated. No fracture or bone destruction of the cranial vault. IMPRESSION: Encephalomalacia at left basal ganglia, residual prior hematoma at this site Cerebral atherosclerosis and chronic small vessel ischemic changes of the cerebral white matter Moderate cerebellar and cerebral volume loss No acute intracranial finding Reviewed, dictated and finalized at [facility]. Reviewed, dictated and finalized at location A. IMPRESSION: Encephalomalacia at left basal ganglia, residual prior hematoma at this site Cerebral atherosclerosis and chronic small vessel ischemic changes of the cereb ral white matter Moderate cerebellar and cerebral volume loss No acute intracranial finding
--- NOTE | ~2022-05-17 | MR_ITS ---
EXAMINATION: MR brain/brain stem wo con DATE: 05/18/2022 11:01 INDICATION: Right-sided weakness TECHNIQUE: Magnetic resonance imaging (MRI) of the brain and brainstem was performed without intraven ous contrast. Sequences included sagittal and axial T1-weighted SE, axial diffusion-weighted FS EPI A SSET, axial T2*-weighted GRE, axial T2-weighted FLAIR Propeller, and axial T2-weighted Propeller. Pos tcontrast axial and coronal T1-weighted SE was obtained. Apparent diffusion coefficient (ADC) maps we re created. COMPARISON: CT and CTA 05/17/2022. FINDINGS: No abnormal restricted diffusion to suggest acute ischemic infarct. No MRI evidence of acute hemorrha ge or extra-axial collection. Left insular/basal ganglia and external capsule encephalomalacia, with signal changes in some sequences likely related to residual blood products from a remote hematoma. Mi ld white matter hyperintensities likely due to chronic small vessel disease. Mild atrophy. Ventricula r size consistent with degree of volume loss. Basilar cisterns are patent. Flow voids are preserved. Prominent pituitary gland. Abnormal signal in the sphenoid sinus. IMPRESSION: No acute infarct. Possible acute sphenoid sinusitis. Prominent pituitary gland, [facility] for further evaluation. Other chronic changes detailed above. Reviewed, dictated and finalized at location K. IMPRESSION: No acute infarct. Possible acute sphenoid sinusitis. Prominent pituitary gland, consider routine outpatient MRI of the pituitary for further evaluation. Other chronic changes detailed above.
--- NOTE | ~2022-05-17 | US_ITS ---
EXAMINATION: US carotid duplex BI DATE: 05/18/2022 11:10 INDICATION: Cerebrovascular accident TECHNIQUE: Grayscale, color Doppler, and pulsed Doppler images of the cervical carotid arteries were obtained. The degree of vessel stenosis is placed in one of the following categories: normal, <50%, 5 0-69%, >=70% but less than near-occlusion, near-occlusion, or total occlusion. Note that percent sten osis relative to normal distal artery lumen diameter is indirectly measured from velocity measurement s as described by Carlin, et al. Radiology 2003; [id number]:340-346. COMPARISON: None. FINDINGS: RIGHT: The right common carotid artery (CCA) peak systolic velocity (PSV) is 99 cm/s. The right internal car otid artery (ICA) PSV is 89 cm/s. The right ICA end-diastolic velocity (EDV) is 14 cm/s. The right IC A/CCA PSV ratio is 0.9. Grayscale and color Doppler images yield an estimate of 0% diameter reduction from plaque in the ICA. The external carotid artery (ECA) PSV is 129 cm/s. There is antegrade flow i n the right vertebral artery. LEFT: The left CCA PSV is 80 cm/s. The left ICA PSV is 94 cm/s. The left ICA EDV is 19 cm/s. The left ICA/C CA PSV ratio is 1.2. Grayscale and color Doppler images yield an estimate of 0% diameter reduction fr om plaque in the ICA. The ECA PSV is 114 cm/s. There is antegrade flow in the left vertebral artery. IMPRESSION: 1. No stenosis in the right internal carotid artery. 2. No stenosis in the left internal carotid artery. Reviewed, dictated and finalized at [facility]. Reviewed, dictated and finalized at location A.
--- NOTE | ~2022-05-17 | CT_ITS ---
EXAMINATION: CT facial & cervical spine wo DATE: 05/17/2022 10:27 INDICATION: Multiple falls yesterday. Bruising in periorbital area on the left. Double/blurry vision. TECHNIQUE: Computed tomography (CT) of the facial bones and maxillofacial region and cervical spine w as performed without intravenous contrast. Automated exposure control and iterative reconstruction te chnique were employed. Exam dose: 236.91 mGy-cm total exam DLP. COMPARISON: None. FINDINGS: Probable old fracture deformity of the head of the right mandibular condyle. No fracture of the nasal bones, anterior maxillary spine, orbital rims and elise and zygomatic arches and remainder of the facial bones. The frontozygomatic sutures are intact. Opacified posterior left ethmoid air cell. Prominent mucoperiosteal thickening of the sphenoid sinuse s. No fluid levels of the paranasal sinuses. There is straightening and minimal dextroscoliosis of cervical spine which may be due to positioning or muscle spasm. C1 and C2 are normally aligned and the odontoid process is intact. No fracture or dislocation or lock ed facet or prevertebral soft tissue swelling. There is minimal anterolisthesis at C3-4 and C4-5. There is severe degenerative disc disease at C6-7. There is degenerative change at the apophyseal joints of the cervical spine. There is uncovertebral j oint spurring at C6-7 and on the left at C3-4.. IMPRESSION: No recent facial fracture is detected Straightening and minimal dextro scoliosis of the cervical spine; no fracture or dislocation or ignacia d facet Cervical spondylosis Reviewed, dictated and finalized at [facility]. Reviewed, dictated and finalized at location A. IMPRESSION: No recent facial fracture is detected Straightening and minimal dextro scoliosis of the cervical spine; no fracture o r dislocation or locked facet Cervical spondylosis
--- NOTE | ~2022-05-17 | CT_ITS ---
EXAMINATION: CTA brain carotid DATE: 05/17/2022 12:44 INDICATION: Right-sided deficit. Cerebrovascular accident. TECHNIQUE: Computed tomographic angiography (CTA) of the head was performed with 100 mL Omnipaque-350 intravenous contrast. Exam dose: 954.13 mGy-cm total exam DLP. Volume-rendered and maximum intens ity projection 3D reconstructions of the intracranial arteries were created by the technologist on a separate workstation. COMPARISON: 05/17/[address] brain FINDINGS: There is cardiomegaly. There is extensive left coronary artery calcification. Aortic arch and descending thoracic aortic calcified atherosclerosis. There is grade vessel calcifica tion. No thoracic aortic aneurysm is detected. There is no stricture, stenosis, occlusion or dissection of the left or right common carotid or cervi harrison internal carotid arteries. There is calcified atherosclerosis of the carotid siphon internal carotid arteries. No significant st enosis of the intracranial carotid arteries or anterior or middle cerebral arteries. No cerebral aneu rysm is evident. No significant stenosis or occlusion of the vertebral arteries or basilar artery. No cervical mass lesion or cervical lymphadenopathy. IMPRESSION: No cervical or intracranial carotid significant stenosis, occlusion or dissection Bilateral carotid siphon internal carotid artery calcified atherosclerosis Left basal ganglia encephalomalacia, residual from prior left basal ganglia hematoma No cerebral artery aneurysm or dissection or occlusion is noted Cardiomegaly, extensive left coronary artery calcification Reviewed, dictated and finalized at [facility]. Reviewed, dictated and finalized at location A. IMPRESSION: No cervical or intracranial carotid significant stenosis, occlusio n or dissection Bilateral carotid siphon internal carotid artery calcified atherosclerosis Left basal ganglia encephalomalacia, residual from prior left basal ganglia hem atoma No cerebral artery aneurysm or dissection or occlusion is noted Cardiomegaly, extensive left coronary artery calcification
--- NOTE | ~2022-05-17 | XR_ITS ---
EXAMINATION: XR hip RT 2V w AP pelvis DATE: 05/20/2022 11:01 INDICATION: Right groin and hip pain TECHNIQUE: Anteroposterior view of the pelvis and anteroposterior and frog-leg lateral views of the r ight hip were obtained. COMPARISON: CT abdomen and pelvis dated 08/20/2021 FINDINGS: Bone alignment is normal. No fracture. No suspected avascular necrosis. Bilateral hip joint spaces ap pear normal and symmetric. Small amount of heterotopic ossification along the proximal right hamstrin g tendon origin at the right ischial tuberosity. Mild osteitis pubis. Severe lower lumbar spondylosis . IMPRESSION: 1. Normal right hip joint space with no acute osseous abnormality. 2. Severe lower lumbar spondylosis. Reviewed, dictated and finalized at location B.
--- NOTE | 2022-05-17 09:46 | ED.FALL ---
HPI - Fall General Chief Complaint: Fall Stated Complaint: weakness, falls History of Present Illness HPI Narrative: 76-year-old female presenting to the emergency department from a local long term for evaluation of worsening mental status. Patient reports she had a fall yesterday. Patient states last night she woke up and had onset of right-sided weakness. Patient is unsure of when this was. Patient also did strike her head. Patient has a contusion around her left eye. Patient denies any pain in the eye or change in vision but patient states she does have facial pain. Related Data Home Medications Medication Instructions Recorded Confirmed asenapine maleate 5 mg sublingual 5 mg sublingual Q12H //05/17/22 tablet (Saphris) escitalopram oxalate 5 mg tablet 5 mg PO DAILY 08/21/21 05/17/22 rosuvastatin 20 mg tablet 20 mg PO QHS 08/21/21 05/17/22 trazodone 100 mg tablet 300 mg PO HS 08/21/21 05/17/22 acetaminophen 500 mg tablet 1,000 mg PO Q6H PRN Pain 02/05/22 05/17/22 cyclobenzaprine 10 mg tablet 10 mg PO TID PRN Muscle Spasm 02/13/22 05/17/22 fluticasone propionate 50 2 spray intranasal QAM AND QHS 02/13/22 05/17/22 mcg/actuation nasal spray,suspension (Flonase Allergy Relief) glucagon HCl 1 mg solution for 1 mg subcut Q20M PRN Hypoglycemia 02/13/22 05/17/22 injection (Glucagon (HCl) Emergency Kit) sodium chloride 0.65 % nasal spray 1 spray intranasal BID PRN Dry 02/13/22 05/17/22 aerosol (Saline Mist) Nasal Passages lactulose 10 gram/15 mL oral 30 g PO QID 03/31/22 05/17/22 solution insulin glargine 100 unit/mL (3 9 unit subcut QHS 05/17/22 05/17/22 mL) subcutaneous pen (Lantus Solostar U-100 Insulin) insulin lispro 100 unit/mL 7 unit subcut TIDWMEAL 05/17/22 05/17/22 subcutaneous pen (Humalog KwikPen (U-100) Insulin) lorazepam 0.5 mg tablet 0.5 mg PO TID PRN Anxiety 05/17/22 05/17/22 Allergies Allergy/AdvReac Type Severity Reaction Status Date / Time alendronate sodium Allergy Unknown Unknown Verified 05/17/22 10:23 amantadine Allergy Unknown Unknown Verified 05/17/22 10:23 benztropine Allergy Unknown Unknown Verified 05/17/22 10:23 chlorpromazine Allergy Unknown Unknown Verified 05/17/22 10:23 levofloxacin Allergy Unknown Unknown Verified 05/17/22 10:23 Macrolide Antibiotics Allergy Unknown UNKNOWN Verified 05/17/22 10:23 REACTION mirtazapine Allergy Unknown Unknown Verified 05/17/22 10:23 Quinolones Allergy Unknown Unknown Verified 05/17/22 10:23 topiramate Allergy Unknown Unknown Verified 05/17/22 10:23 Review of Systems Review of Systems: CONSTITUTIONAL: Denies fever, chills, or sweats. EYES: Denies visual changes, redness, or discharge. ENT: Denies rhinorrhea, congestion, sore throat, or otalgia. CARDIOVASCULAR: Denies chest pain, palpitations, or edema. RESPIRATORY: Denies cough or dyspnea. GASTROINTESTINAL: Denies abdominal pain, nausea, vomiting, or diarrhea. GENITOURINARY: Denies dysuria or hematuria. SKIN: Denies rash or itching. MUSCULOSKELETAL: Denies back pain, joint pain, or myalgia. NEUROLOGIC: Right-sided weakness PSYCHIATRIC: Denies anxiety or depression. [facility] Past Medical History Medical History (Updated 05/17/22 @ 18:40 by Guy Anderson MD) Anemia Anxiety Aortic stenosis Mild on echo May 2021, moderate by echo 11/2019 to Arthritis Asthma Bipolar disorder Chronic diastolic CHF (congestive heart failure) Chronic kidney disease, stage III (moderate) Managed by Dr. Aquino COPD (chronic obstructive pulmonary disease) PFTs 06/28/2021: Moderate obstructive abnormality, moderate decreased diffusion capacity CVA (cerebrovascular accident) (~12/2019) Depression Diabetes mellitus Diabetic peripheral neuropathy Diastolic dysfunction Echocardiogram 05/2021: EF 65-70%, grade 1 diastolic dysfunction, E/E elevated, global longitudinal strain mildly abnormal, moderate left atrial enlargement, moderate aortic valve sclerosis, mild aortic valve stenosis
[2022-05-17 10:22] LABS: Appearance Urine Clear (Clear); Bilirubin Urine Negative (Negative); Blood Urine 2+ (Negative); Color Urine Yellow (Yellow); Glucose Urine UA Negative (Negative); Ketones Urine Negative (Negative); Leukocyte Esterase Ur 2+ LEU/UL (Negative); Nitrate Urine Negative (Negative); Protein Urine 2+ mg/dL (Negative); Specific Grav Ur 1.015 (1.001-1.035); Urobilinogen Urine 0.2 mg/dL (<2.0)
[2022-05-17 10:36] LABS: Bacteria Urine Trace /hpf; Squamous Epithelial Cell Urine Rare /hpf (Few)
[2022-05-17 10:41] LABS: Add Urine Microscopic? YES
--- NOTE | 2022-05-17 11:13 | PC.NURSE ---
Report received from ISRA Castro
--- NOTE | 2022-05-17 11:13 | PC.NURSE ---
Three previous attempts to draw blood unsuccessful.
[2022-05-17 11:32] LABS: Basophils Percent Auto 0.8 % (0.2-1.2); Eosinophils Absolute Auto 0.1 K/mm3 (0-0.3); Eosinophils Percent Auto 1.4 % (0-4.4); Hematocrit 34.4 % (37.0-47.0); Hemoglobin 10.9 g/dL (12.0-15.0); Immature Granulocyte Absolute 0.03 K/mm3 (0.00-0.031); Immature Granulocyte Percent A 0.6 % (0-0.5); Lymphocytes Absolute Auto 0.56 K/mm3 (0.9-3.2); Lymphocytes Percent Auto 10.9 % (18.3-44.2); Mean Corpuscular HGB Conc 31.7 g/dl (32-36); Mean Corpuscular Hemoglobin 29.8 pg (26-34); Mean Platelet Volume 9.6 fl (7.4-10.4); Monocytes Absolute Auto 0.4 K/mm3 (0.1-0.6); Monocytes Percent Auto 7.2 % (2.6-8.5); Neutrophils Absolute Auto 4.1 K/mm3 (1.3-6.7); Neutrophils Percent Auto 79.1 % (45.5-73.1); Platelet Count Result 107 k/mm3 (150-375); Red Blood Count 3.66 M/mm3 (4.2-5.4); Red Cell Distribution Width 15.3 % (11.5-14.5); White Blood Count 5.1 K/mm3 (4.5-10.0)
[2022-05-17 11:42] LABS: Alanine Aminotransferase 31 U/L (6-35); Albumin Level 4.5 g/dL (3.5-5.1); Alkaline Phosphatase 368 U/L (38-126); Anion Gap 11 mmol/L (8-16); Aspartate Amino Transferase 65 U/L (14-36); Bilirubin,Total 0.4 mg/dL (0.2-1.3); Blood Urea Nitrogen 37 mg/dL (7-17); Calcium 9.5 mg/dL (8.4-10.2); Carbon Dioxide 24 mmol/L (22-30); Chloride 104 mmol/L (98-107); Estimated Glomerular Filt Rate 22; Glucose 80 mg/dL (65-110); Potassium 4.4 mmol/L (3.4-5.0); Sodium 139 mmol/L (137-145)
[2022-05-17 11:44] LABS: INR 1.2
[2022-05-17 11:45] LABS: Partial Thromboplastin Time 37.7 SECONDS (22.3-36.8)
--- NOTE | 2022-05-17 12:33 | PC.NURSE ---
Pt out of department for CT at this time.
--- NOTE | 2022-05-17 13:52 | PC.NURSE ---
Second breathing treatment in progress child screaming, covering mouth, removing the facemask. Mother states he's defiinitely feeling better .
[2022-05-17] MEDS: ASPIRIN 81 MG CHEWABLE TABLET 324 MG PO (14:13)
--- NOTE | 2022-05-17 16:05 | PM.IMHP ---
H&P: HPI History of Present Illness Date/Time: 05/17/22 16:05 Chief Complaint: Weakness and fall Narrative: this is a 76-year-old female who presents to the ED from a local retirement where she has been residing since past 3 months with evaluation off recurrent falls. She states that she got a COVID vaccine booster yesterday morning and has been falling since then. She states that she fell and yesterday morning and denies having any premonitory symptoms prior to the fall. she denies any dizziness lightheadedness or palpitation prior to the fall. She reports he did not lose consciousness the. She does have underlying peripheral neuropathy. Subsequently yesterday in the evening she had another fall x2 and this morning she fell backwards while she was getting to the kitchen to get some water. And hit her head. She has bruised up her left eye and reported that she has some right-sided weakness. She denies any voice change her speech abnormality or any difficulty swallowing. She denies any fever or chills. She does report that she has been peeing more frequently since yesterday evening for denies any burning sensation. Is a fall she does report right thigh pain. The ED she had CT head done which was negative. She also had subsequently CTA done which was negative as well. [facility] [place] neurology was contacted and suggested to admit is further do the workup for stroke. She says was supposed to be on aspirin however she has not been taking aspirin. She used received a dose of aspirin in the ER. She has underlying history of diabetes and hyperlipidemia hypertension COPD history of CVA congestive heart failure and diabetic peripheral neuropathy. Review of Systems Review of Systems: - CONSTITUTIONAL: Denies weight loss, fever and chills. - HEENT: Denies changes in vision and hearing - RESPIRATORY: Denies SOB and cough. - CV: Denies palpitations and CP. - GI: Denies abdominal pain, nausea, vomiting and diarrhea. - : Denies dysuria and urinary frequency. - MSK: Denies myalgia and joint pain. Reports right thigh pain - SKIN: Denies rash and pruritus. - NEUROLOGICAL: Denies headache and reports fall - PSYCHIATRIC: Denies recent changes in mood. Denies anxiety and depression. All systems reviewed & are unremarkable except as noted in HPI and below Constitutional: Constitutional: Reports fatigue and Reports weakness Neurologic: Reports weakness Endocrine: Endocrine: Reports fatigue PMFSH Past Medical History Medical History (Updated 05/17/22 @ 17:42 by Allan Campos MD) Anemia Anxiety Aortic stenosis Mild on echo May 2021, moderate by echo 11/2019 to Arthritis Asthma Bipolar disorder Chronic diastolic CHF (congestive heart failure) Chronic kidney disease, stage III (moderate) Managed by Dr. Aquino COPD (chronic obstructive pulmonary disease) PFTs 06/28/2021: Moderate obstructive abnormality, moderate decreased diffusion capacity CVA (cerebrovascular accident) (~12/2019) Depression Diabetes mellitus Diabetic peripheral neuropathy Diastolic dysfunction Echocardiogram 05/2021: EF 65-70%, grade 1 diastolic dysfunction, E/E elevated, global longitudinal strain mildly abnormal, moderate left atrial enlargement, moderate aortic valve sclerosis, mild aortic valve stenosis with peak velocity 239, mean gradient 14, aortic valve area 1.7 to, mild aortic valve regurgitation, GERD (gastroesophageal reflux disease) HLD (hyperlipidemia) Hypertension Hypothyroidism IBS (irritable bowel syndrome) 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 Moreno History of partial hysterectomy History
[2022-05-17 17:08] LABS: Glucose Point of Care 195 mg/dl (65-105)
[2022-05-17 18:08] LABS: Cholesterol 119 mg/dL (0-200); HDL Direct 60 mg/dL; Triglycerides 82 mg/dL (<150)
[2022-05-17 18:13] LABS: Hemoglobin A1C 6.4 % (<5.7)
[2022-05-17 18:26] LABS: LDL Cholesterol Direct < 30 mg/dL
--- NOTE | 2022-05-17 18:35 | ADMGEN ---
This patient, Nisha Sigala, was admitted to Medical Room 345-01. Patient/family oriented to hospital policies and general routines including ID bracelet, bed and alarms, visiting hours, pain management, procedures, bathroom and other care routines, personal items, smoking policy, room service/diet, and visiting hours. Information on how to activate the Rapid Response Team has been discussed. Patient/Family are encouraged to report perceived risks to care and to ask questions if they do not understand what they are told or what they should do.
[2022-05-17] MEDS: lamoTRIgine 100 MG TABLET PO (21:06)
[2022-05-17] MEDS: lamoTRIgine 50 MG TABLET PO (21:06)
[2022-05-17] MEDS: GABAPENTIN 300 MG CAPSULE 900 MG PO (21:11)
[2022-05-17] MEDS: ROSUVASTATIN 10 MG TABLET 20 MG PO (21:11)
[2022-05-17] MEDS: traZODone HCL 50 MG TABLET 300 MG PO (21:12)
[2022-05-17] MEDS: PROPRANOLOL HCL 10 MG TABLET PO (21:14)
[2022-05-17 21:27] LABS: Glucose Point of Care 140 mg/dl (65-105)
[2022-05-17] MEDS: INSULIN GLARGINE (*BKC) 100 UNITS/ML 9 UNITS SUB-Q (22:05)
[2022-05-18] VITALS (12 sets, daily range): BP systolic 116–144; BP diastolic 46–54; PULSE 46–97; RESP 16–18; TEMP 36.3–36.9; O2SAT 94–98
[2022-05-18] MEDS: LEVOTHYROXINE SODIUM 125 MCG TABLET PO (05:39)
[2022-05-18 07:49] LABS: Glucose Point of Care 133 mg/dl (65-105)
[2022-05-18] MEDS: UMECLIDINIUM/VILANTEROL 62.5-25 MCG ELLIPTA 1 PUFF INHALATION (08:02)
[2022-05-18] MEDS: INSULIN ASPART (*BKC) 100 UNITS/ML 7 UNITS SUB-Q ×3 (08:26→18:17)
[2022-05-18] MEDS: ASPIRIN 81 MG CHEWABLE TABLET PO (08:29)
[2022-05-18] MEDS: FERROUS SULFATE 324 MG TABLET PO (08:32)
[2022-05-18] MEDS: GABAPENTIN 300 MG CAPSULE 900 MG PO ×3 (08:32→18:16)
[2022-05-18] MEDS: FUROSEMIDE 40 MG TABLET PO (08:32)
[2022-05-18] MEDS: ESCITALOPRAM OXALATE 5 MG TABLET PO (08:32)
[2022-05-18] MEDS: amLODIPine BESYLATE 5 MG TABLET PO (08:32)
[2022-05-18] MEDS: PANTOPRAZOLE 40 MG TABLET PO (08:33)
[2022-05-18] MEDS: lamoTRIgine 50 MG TABLET PO ×2 (08:33→18:16)
[2022-05-18] MEDS: lamoTRIgine 100 MG TABLET PO ×2 (08:33→18:14)
[2022-05-18 11:21] LABS: Glucose Point of Care 211 mg/dl (65-105)
[2022-05-18] MEDS: INSULIN ASPART (*BKC) 100 UNITS/ML SUB-Q (11:55)
--- NOTE | 2022-05-18 13:36 | PCCCNOTE ---
On 05/18/22, the student, [Devika Barker], provided care and completed [facility] documentation on this patient. I have reviewed the student's documentation and agree with the findings.
--- NOTE | 2022-05-18 14:59 | PM.IMPN ---
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: Code(s): K75.81 - Nonalcoholic steatohepatitis (ZIEGLER); K74.60 - Unspecified cirrhosis of liver Status: Acute (5) COPD (chronic obstructive pulmonary disease): Qualifiers: COPD type: unspecified COPD Qualified Code(s): J44.9 - Chronic obstructive pulmonary disease, unspecified Code(s): J44.9 - Chronic obstructive pulmonary disease, unspecified Status: Acute (6) CHF (congestive heart failure): Qualifiers: Heart failure chronicity: chronic Heart failure type: diastolic Qualified Code(s): I50.32 - Chronic diastolic (congestive) heart failure Code(s): I50.9 - Heart failure, unspecified Status: Acute (7) Hypertension: Code(s): I10 - Essential (primary) hypertension Status: Acute (8) Type 2 diabetes mellitus: Code(s): E11.9 - Type 2 diabetes mellitus without complications Status: Acute (9) Chronic kidney disease, stage III (moderate): Qualifiers: Chronic kidney disease stage 3 subtype: stage 3b (GFR 30-44) Qualified Code(s): N18.32 - Chronic kidney disease, stage 3b Code(s): N18.3 - Chronic kidney disease, stage 3 (moderate) Status: Acute (10) Hypothyroidism: Qualifiers: Hypothyroidism type: acquired Qualified Code(s): E03.9 - Hypothyroidism, unspecified Code(s): E03.9 - Hypothyroidism, unspecified Status: Acute (11) Bipolar disorder: Qualifiers: Active/Remission status: in full remission Most recent bipolar episode type: most recent episode unspecified type Qualified Code(s): F31.70 - Bipolar disorder, currently in remission, most recent episode unspecified Code(s): F31.9 - Bipolar disorder, unspecified Status: Acute (12) Recurrent falls: Code(s): R29.6 - Repeated falls Status: Acute Plan Recurrent falls rule out stroke. CT head is negative. CTA head and neck is negative as well started on aspirin 325 mg and will continue aspirin 81 mg daily. Continue statin check lipid profile. Further stroke workup with echocardiogram and carotid duplex. MRI and carotid Doppler plan today. Could also be related to peripheral neuropathy that she has along with recent medical illnesses such as UTI. PT OT to see. 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 Tressa pham SSI Chronic kidney disease stage 3 to 4 baseline creatinine in low 2s currently at baseline continue to monitor Elevated alkaline phosphatase level similar to the past could be related to her underlying cirrhosis ultrasound in October 2021 with cirrhosis and perihepatic ascites and splenomegaly. Hypertension Hyperlipidemia Hypothyroidism GERD COPD Bipolar disorder on lamotrigine at home Asthma Mild aortic stenosis Chronic anemia GERD DVT prophylaxis Lovenox Code status full code status Subjective Date/time seen: 05/18/22 14:59 Interval history: HPI:this is a 76-year-old female who presents to the ED from a local [facility] where she has been residing since past 3 months with evaluation off recurrent falls.? She states that she got a COVID vaccine booster yesterday morning and has been falling since then.? She states that she fell and yesterday morning and denies having any premonitory symptoms prior
[2022-05-18 16:43] LABS: Glucose Point of Care 107 mg/dl (65-105)
[2022-05-18] MEDS: PROPRANOLOL HCL 10 MG TABLET PO (18:16)
[2022-05-18 19:30] LABS: Glucose Point of Care 180 mg/dl (65-105)
[2022-05-18] MEDS: traZODone HCL 50 MG TABLET 300 MG PO (20:35)
[2022-05-18] MEDS: ROSUVASTATIN 10 MG TABLET 20 MG PO (20:35)
[2022-05-18] MEDS: INSULIN GLARGINE (*BKC) 100 UNITS/ML 9 UNITS SUB-Q (20:41)
[2022-05-19] VITALS (13 sets, daily range): BP systolic 117–120; BP diastolic 44–58; PULSE 50–60; RESP 16–18; TEMP 36.4–36.6; O2SAT 94–98
--- NOTE | 2022-05-19 | ECHO_ITS ---
Patient Info Name: Nisha Sigala Age: 76 years : 1945 Gender: Female Ht: 59 in Wt: 154 lbs BSA: 1.73 m2 HR: 56 bpm BP: 117 / 44 mmHg Heart Rhythm: Sinus Rhythm Exam Date: 05/19/2022 9:13 AM Exam Location: [facility] Patient Status: Inpatient Admit Date: 05/18/2022 Staff Ordering Physician: Allan Campos MD [place] Consultant: Stephan Lawson, TAMIKA, RT Attending Provider: Allan Campos MD Exam Type: CA echo doppler color flow Study Info Indications G45.8 - Other transient cerebral ischemic attacks and related syndromes Complete two-dimensional, color flow and Doppler transthoracic echocardiogram is performed. Strain analysis performed. Summary 1. Complete two-dimensional, color flow and Doppler transthoracic echocardiogram is performed. 2. Left ventricular chamber dimension is normal. 3. Left ventricular systolic function is hyperdynamic, estimated at >70%. 4. There is moderately increased left ventricular wall thickness. 5. The left ventricular diastolic function is grade I diastolic dysfunction. 6. There is moderate aortic valve stenosis with a peak velocity of 340 cm/s, mean gradient of 23 mmHg, and aortic valve area of 1.2 cm2. 7. There is mild mitral valve regurgitation. 8. There is mild tricuspid valve regurgitation. 9. No pulmonary hypertension, estimated pulmonary arterial systolic pressure is 32 mmHg. 10. Repeat limited echocardiogram with bubble study to assess for interatrial shunt. Left Ventricle Left ventricular chamber dimension is normal. Left ventricular systolic function is hyperdynamic, estimated at >70%. There is moderately increased left ventricular wall thickness. The left ventricular diastolic function is grade I diastolic dysfunction. Right Ventricle Right ventricular chamber dimension is normal. Right ventricular systolic function is normal. Left Atria Left atrial chamber dimension is mildly enlarged. Right Atria Right atrial chamber dimension is normal. Aortic Valve The aortic valve is probable trileaflet. There is moderate aortic valve stenosis with a peak velocity of 340 cm/s, mean gradient of 23 mmHg, and aortic valve area of 1.2 cm2. There is trace aortic valve regurgitation. There is moderate aortic valve calcification. Pulmonic Valve The pulmonic valve is not well visualized. There is trace pulmonic regurgitation. Mitral Valve The mitral valve has thickened leaflets. There is mild mitral valve regurgitation. The mitral valve annulus is mildly calcified. Tricuspid Valve The tricuspid valve leaflets are normal. There is mild tricuspid valve regurgitation. No pulmonary hypertension, estimated pulmonary arterial systolic pressure is 32 mmHg. Pericardium/Pleural The pericardium appears normal. There is small pericardial effusion. Inferior Vena Cava Normal inferior vena cava with >50% collapse upon inspiration consistent with normal right atrial pressure, 5 mmHg. Aorta The aortic root size at the sinus of Valsalva is normal. There is mild aortic atherosclerosis. Left Ventricular Outflow Tract Name Value Normal LVOT 2D LVOT Diameter 2.0 cm LVOT Doppler
[2022-05-19] MEDS: LEVOTHYROXINE SODIUM 125 MCG TABLET PO (05:29)
[2022-05-19 05:38] LABS: Basophils Percent Auto 0.9 % (0.2-1.2); Eosinophils Absolute Auto 0.2 K/mm3 (0-0.3); Eosinophils Percent Auto 4.8 % (0-4.4); Hematocrit 30.1 % (37.0-47.0); Hemoglobin 9.5 g/dL (12.0-15.0); Immature Granulocyte Absolute 0.02 K/mm3 (0.00-0.031); Immature Granulocyte Percent A 0.4 % (0-0.5); Lymphocytes Absolute Auto 1.44 K/mm3 (0.9-3.2); Lymphocytes Percent Auto 31.1 % (18.3-44.2); Mean Corpuscular HGB Conc 31.6 g/dl (32-36); Mean Corpuscular Hemoglobin 29.5 pg (26-34); Mean Corpuscular Volume 93.5 fl (80-100); Mean Platelet Volume 10.3 fl (7.4-10.4); Monocytes Absolute Auto 0.5 K/mm3 (0.1-0.6); Monocytes Percent Auto 10.2 % (2.6-8.5); Neutrophils Absolute Auto 2.4 K/mm3 (1.3-6.7); Neutrophils Percent Auto 52.6 % (45.5-73.1); Platelet Count Result 106 k/mm3 (150-375); Red Blood Count 3.22 M/mm3 (4.2-5.4); Red Cell Distribution Width 15.2 % (11.5-14.5); White Blood Count 4.6 K/mm3 (4.5-10.0)
[2022-05-19 05:56] LABS: Alanine Aminotransferase 30 U/L (6-35); Alkaline Phosphatase 341 U/L (38-126); Anion Gap 9 mmol/L (8-16); Aspartate Amino Transferase 64 U/L (14-36); Bilirubin,Total 0.3 mg/dL (0.2-1.3); Blood Urea Nitrogen 49 mg/dL (7-17); Calcium 8.8 mg/dL (8.4-10.2); Carbon Dioxide 25 mmol/L (22-30); Chloride 103 mmol/L (98-107); Estimated Glomerular Filt Rate 17; Glucose 128 mg/dL (65-110); Magnesium 2.5 mg/dL (1.6-2.3); Potassium 4.5 mmol/L (3.4-5.0); Sodium 137 mmol/L (137-145)
[2022-05-19 07:47] LABS: Glucose Point of Care 140 mg/dl (65-105)
[2022-05-19] MEDS: GABAPENTIN 300 MG CAPSULE 900 MG PO ×3 (08:11→16:38)
[2022-05-19] MEDS: PROPRANOLOL HCL 10 MG TABLET PO ×2 (08:11→16:38)
[2022-05-19] MEDS: lamoTRIgine 100 MG TABLET PO ×2 (08:11→16:38)
[2022-05-19] MEDS: amLODIPine BESYLATE 5 MG TABLET PO (08:12)
[2022-05-19] MEDS: FUROSEMIDE 40 MG TABLET PO (08:12)
[2022-05-19] MEDS: FERROUS SULFATE 324 MG TABLET PO (08:12)
[2022-05-19] MEDS: ASPIRIN 81 MG CHEWABLE TABLET PO (08:12)
[2022-05-19] MEDS: ESCITALOPRAM OXALATE 5 MG TABLET PO (08:12)
[2022-05-19] MEDS: lamoTRIgine 50 MG TABLET PO ×2 (08:13→16:38)
[2022-05-19] MEDS: INSULIN ASPART (*BKC) 100 UNITS/ML 7 UNITS SUB-Q ×3 (08:13→16:38)
[2022-05-19] MEDS: PANTOPRAZOLE 40 MG TABLET PO (08:13)
[2022-05-19] MEDS: UMECLIDINIUM/VILANTEROL 62.5-25 MCG ELLIPTA 1 PUFF INHALATION (08:40)
[2022-05-19] MEDS: SODIUM CHLORIDE 0.9% IV 1,000 ML 50 ML IV CONT (10:14)
[2022-05-19 11:56] LABS: Glucose Point of Care 91 mg/dl (65-105)
--- NOTE | 2022-05-19 15:56 | PM.IMPN ---
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: Code(s): K75.81 - Nonalcoholic steatohepatitis (ZIEGLER); K74.60 - Unspecified cirrhosis of liver Status: Acute (5) COPD (chronic obstructive pulmonary disease): Qualifiers: COPD type: unspecified COPD Qualified Code(s): J44.9 - Chronic obstructive pulmonary disease, unspecified Code(s): J44.9 - Chronic obstructive pulmonary disease, unspecified Status: Acute (6) CHF (congestive heart failure): Qualifiers: Heart failure chronicity: chronic Heart failure type: diastolic Qualified Code(s): I50.32 - Chronic diastolic (congestive) heart failure Code(s): I50.9 - Heart failure, unspecified Status: Acute (7) Hypertension: Code(s): I10 - Essential (primary) hypertension Status: Acute (8) Type 2 diabetes mellitus: Code(s): E11.9 - Type 2 diabetes mellitus without complications Status: Acute (9) Chronic kidney disease, stage III (moderate): Qualifiers: Chronic kidney disease stage 3 subtype: stage 3b (GFR 30-44) Qualified Code(s): N18.32 - Chronic kidney disease, stage 3b Code(s): N18.3 - Chronic kidney disease, stage 3 (moderate) Status: Acute (10) Hypothyroidism: Qualifiers: Hypothyroidism type: acquired Qualified Code(s): E03.9 - Hypothyroidism, unspecified Code(s): E03.9 - Hypothyroidism, unspecified Status: Acute (11) Bipolar disorder: Qualifiers: Active/Remission status: in full remission Most recent bipolar episode type: most recent episode unspecified type Qualified Code(s): F31.70 - Bipolar disorder, currently in remission, most recent episode unspecified Code(s): F31.9 - Bipolar disorder, unspecified Status: Acute (12) Recurrent falls: Code(s): R29.6 - Repeated falls Status: Acute Plan Recurrent falls rule out stroke. CT head is negative. CTA head and neck is negative as well started on aspirin 325 mg and will continue aspirin 81 mg daily. Continue statin. Lipid profile with at goal LDL. Further stroke workup with echocardiogram and carotid duplex. MRI negative for acute stroke. Carotid Doppler with no significant stenosis. Awaiting echocardiogram. Could be related to peripheral neuropathy that she has along with recent medical illnesses such as UTI. PT OT to see. 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 Creatinine bumped up today 05/19/2022 will give gentle fluid today Elevated alkaline phosphatase level similar to the past could be related to her underlying cirrhosis ultrasound in October 2021 with cirrhosis and perihepatic ascites and splenomegaly. Hypertension Hyperlipidemia Hypothyroidism GERD COPD Bipolar disorder on lamotrigine at home Asthma Mild aortic stenosis Chronic anemia GERD DVT prophylaxis Lovenox Code status full code status Subjective Date/time seen: 05/19/22 15:56 Interval history: HPI:this is a 76-year-old female who [facility] since past 3 months with evaluation off recurrent falls.? She states that she got a COVID
--- NOTE | 2022-05-19 15:59 | PHAR ---
HOME MED VERIFIED = [facility] RX [id number] ASENAPINE 5 MG SUBLINGUAL TABS IN SEALED UNOPENED [employer]ERS BOTTLE [facility]# [id number] 1 TAB Q12H 0800 & 2000
[2022-05-19 16:28] LABS: Glucose Point of Care 82 mg/dl (65-105)
[2022-05-19] MEDS: ROSUVASTATIN 10 MG TABLET 20 MG PO (20:07)
[2022-05-19] MEDS: INSULIN GLARGINE (*BKC) 100 UNITS/ML 9 UNITS SUB-Q (20:11)
[2022-05-19 20:54] LABS: Glucose Point of Care 131 mg/dl (65-105)
[2022-05-19] MEDS: traZODone HCL 50 MG TABLET 300 MG PO (21:49)
[2022-05-20] VITALS (8 sets, daily range): BP systolic 146; BP diastolic 50–54; PULSE 56–67; RESP 18; TEMP 36.6; O2SAT 95–99
[2022-05-20] MEDS: SODIUM CHLORIDE 0.9% IV 1,000 ML 50 ML IV CONT (05:34)
[2022-05-20] MEDS: LEVOTHYROXINE SODIUM 125 MCG TABLET PO (05:34)
[2022-05-20 05:36] LABS: Basophils Percent Auto 0.9 % (0.2-1.2); Eosinophils Absolute Auto 0.2 K/mm3 (0-0.3); Eosinophils Percent Auto 5.1 % (0-4.4); Hematocrit 31.4 % (37.0-47.0); Hemoglobin 9.9 g/dL (12.0-15.0); Immature Granulocyte Absolute 0.02 K/mm3 (0.00-0.031); Immature Granulocyte Percent A 0.4 % (0-0.5); Lymphocytes Absolute Auto 1.36 K/mm3 (0.9-3.2); Lymphocytes Percent Auto 30.2 % (18.3-44.2); Mean Corpuscular HGB Conc 31.5 g/dl (32-36); Mean Corpuscular Hemoglobin 29.3 pg (26-34); Mean Corpuscular Volume 92.9 fl (80-100); Mean Platelet Volume 9.5 fl (7.4-10.4); Monocytes Absolute Auto 0.4 K/mm3 (0.1-0.6); Monocytes Percent Auto 7.8 % (2.6-8.5); Neutrophils Absolute Auto 2.5 K/mm3 (1.3-6.7); Neutrophils Percent Auto 55.6 % (45.5-73.1); Platelet Count Result 103 k/mm3 (150-375); Red Blood Count 3.38 M/mm3 (4.2-5.4); Red Cell Distribution Width 15.1 % (11.5-14.5); White Blood Count 4.5 K/mm3 (4.5-10.0)
[2022-05-20 05:49] LABS: Alanine Aminotransferase 28 U/L (6-35); Albumin Level 4.2 g/dL (3.5-5.1); Alkaline Phosphatase 334 U/L (38-126); Anion Gap 9 mmol/L (8-16); Aspartate Amino Transferase 52 U/L (14-36); Bilirubin,Total 0.3 mg/dL (0.2-1.3); Blood Urea Nitrogen 50 mg/dL (7-17); Calcium 8.9 mg/dL (8.4-10.2); Carbon Dioxide 24 mmol/L (22-30); Chloride 108 mmol/L (98-107); Estimated Glomerular Filt Rate 17; Glucose 141 mg/dL (65-110); Magnesium 2.4 mg/dL (1.6-2.3); Potassium 4.2 mmol/L (3.4-5.0); Sodium 141 mmol/L (137-145)
[2022-05-20 07:38] LABS: Glucose Point of Care 155 mg/dl (65-105)
[2022-05-20] MEDS: UMECLIDINIUM/VILANTEROL 62.5-25 MCG ELLIPTA 1 PUFF INHALATION (08:01)
--- NOTE | 2022-05-20 08:48 | WPDNEURCNPN ---
Assessment and Plan Assessment and plan (1) Recurrent falls: Code(s): R29.6 - Repeated falls Status: Acute (2) CVA (cerebrovascular accident): Onset Date: ~12/2019 Qualifiers: CVA mechanism: unspecified Qualified Code(s): I63.9 - Cerebral infarction, unspecified Code(s): I63.9 - Cerebral infarction, unspecified Status: Acute Plan 1 status post fall with mild right-sided neurological findings correlating with the documented abnormal MRI 2. Stable neurological status at this particular time with no change in the mental status examination compared to her previous evaluation 3. Treatment will be continued as such with specific precautions for the falls in the future Consult date: 05/20/22 Time Seen: 08:00 Reason for consult: TIA HPI: Nisha Sigala is a 76 year old female admitted to the hospital through the emergency room for the complaints of fall patient was admitted to the ER on transfer to a local correction for the complaint of increasing change in the mental status and also with the history she had a fall yesterday and when she woke up last night she noted right-sided weakness. Patient has been taking multiple medications including rosuvastatin 20 mg at night treatment for the diabetes and trazodone 300 mg at night in addition to the site of low prime 5 mg daily. She has been noted to be allergic to multiple medications as outlined. And she has ongoing history of aortic stenosis by echocardiogram, congestive heart failure, chronic kidney disease, bipolar disorder, and diabetes mellitus with peripheral neuropathy, has history of years smoked for 25, she has not smoked since November of 2016 and also she is not alcohol intake or. Initial evaluation documented her normal vital signs, normal routine lab, and CT scan was obviously abnormal because of the encephalomalacia of left basal ganglia and cerebellar and cerebral volume loss, head neck CTA documented no cervical or intracranial carotid significant stenosis though she has bilateral carotid siphon calcified atherosclerosis but there is no aneurysm and there is no territorial abnormalities intracranially Review of Systems Review of Systems: All systems reviewed & are unremarkable except as noted in HPI and below [facility] Past Medical History Medical History Anemia Anxiety Aortic stenosis Mild on echo May 2021, moderate by echo 11/2019 to Arthritis Asthma Bipolar disorder Chronic diastolic CHF (congestive heart failure) Chronic kidney disease, stage III (moderate) Managed by Dr. Aquino COPD (chronic obstructive pulmonary disease) PFTs 06/28/2021: Moderate obstructive abnormality, moderate decreased diffusion capacity CVA (cerebrovascular accident) (~12/2019) Depression Diabetes mellitus Diabetic peripheral neuropathy Diastolic dysfunction Echocardiogram 05/2021: EF 65-70%, grade 1 diastolic dysfunction, E/E elevated, global longitudinal strain mildly abnormal, moderate left atrial enlargement, moderate aortic valve sclerosis, mild aortic valve stenosis with peak velocity 239, mean gradient 14, aortic valve area 1.7 to, mild aortic valve regurgitation, GERD (gastroesophageal reflux disease) HLD (hyperlipidemia) Hypertension Hypothyroidism IBS (irritable bowel syndrome) 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 Moreno History of partial hysterectomy History of thyroidectomy Hx of section Hx of cholecystectomy Hx of tonsillectomy Status post cataract extraction of both eyes with insertion of intraocular lens Family History Family Histor
[2022-05-20] MEDS: GABAPENTIN 300 MG CAPSULE 900 MG PO ×3 (08:57→17:00)
[2022-05-20] MEDS: FUROSEMIDE 40 MG TABLET PO (08:57)
[2022-05-20] MEDS: ESCITALOPRAM OXALATE 5 MG TABLET PO (08:57)
[2022-05-20] MEDS: PROPRANOLOL HCL 10 MG TABLET PO ×2 (08:57→17:00)
[2022-05-20] MEDS: ASPIRIN 81 MG CHEWABLE TABLET PO (08:58)
[2022-05-20] MEDS: lamoTRIgine 100 MG TABLET PO ×2 (08:58→17:00)
[2022-05-20] MEDS: lamoTRIgine 50 MG TABLET PO ×2 (08:58→16:59)
[2022-05-20] MEDS: PANTOPRAZOLE 40 MG TABLET PO (08:59)
[2022-05-20] MEDS: amLODIPine BESYLATE 5 MG TABLET PO (08:59)
[2022-05-20] MEDS: FERROUS SULFATE 324 MG TABLET PO (08:59)
[2022-05-20] MEDS: INSULIN ASPART (*BKC) 100 UNITS/ML 7 UNITS SUB-Q ×2 (08:59→12:33)
--- NOTE | 2022-05-20 10:48 | PM.DS ---
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: Code(s): K75.81 - Nonalcoholic steatohepatitis (ZIEGLER); K74.60 - Unspecified cirrhosis of liver Status: Acute (5) COPD (chronic obstructive pulmonary disease): Qualifiers: COPD type: unspecified COPD Qualified Code(s): J44.9 - Chronic obstructive pulmonary disease, unspecified Code(s): J44.9 - Chronic obstructive pulmonary disease, unspecified Status: Acute (6) CHF (congestive heart failure): Qualifiers: Heart failure chronicity: chronic Heart failure type: diastolic Qualified Code(s): I50.32 - Chronic diastolic (congestive) heart failure Code(s): I50.9 - Heart failure, unspecified Status: Acute (7) Hypertension: Code(s): I10 - Essential (primary) hypertension Status: Acute (8) Type 2 diabetes mellitus: Code(s): E11.9 - Type 2 diabetes mellitus without complications Status: Acute (9) Chronic kidney disease, stage III (moderate): Qualifiers: Chronic kidney disease stage 3 subtype: stage 3b (GFR 30-44) Qualified Code(s): N18.32 - Chronic kidney disease, stage 3b Code(s): N18.3 - Chronic kidney disease, stage 3 (moderate) Status: Acute (10) Hypothyroidism: Qualifiers: Hypothyroidism type: acquired Qualified Code(s): E03.9 - Hypothyroidism, unspecified Code(s): E03.9 - Hypothyroidism, unspecified Status: Acute (11) Bipolar disorder: Qualifiers: Active/Remission status: in full remission Most recent bipolar episode type: most recent episode unspecified type Qualified Code(s): F31.70 - Bipolar disorder, currently in remission, most recent episode unspecified Code(s): F31.9 - Bipolar disorder, unspecified Status: Acute (12) Recurrent falls: Code(s): R29.6 - Repeated falls Status: Acute Plan # patient presented with Recurrent falls and admitted to rule out stroke. CT head is negative except for stigmata of remote bleed in left basal ganglia. CTA head and neck is negative as well . She was started on aspirin 325 mg for suspected stroke and continued on aspirin 81 mg daily. 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 Continue statin. Lipid profile with at goal LDL. Further stroke workup with echocardiogram and carotid duplex. MRI came back negative for acute stroke. Carotid Doppler with no significant stenosis. echocardiogram showed moderate aortic stenosis and grade 1 diastolic dysfunction. Her symptoms also Could be related to peripheral neuropathy that she has along with recent medical illnesses such as UTI. her UTI was treated with ceftriaxone and finish 3 day course of treatment. Urine culture did not grow any bacteria. PT OT to see Initially recommended rehab placement however she improved with treatment and was planned to get her back home. She lives in an assisted living facility at [facility]. She history of intracranial bleed no also GI bleed in the past. Since no acute stroke identified on evaluation decided to stay off aspirin. This was also discussed with Dr. Sheffield and agrees with the plan. # history of stroke with left basal ganglia bleed in 2019 #peripheral neuropathy #chronic Congestive diastolic heart failure well compensated continue home medication #Urinary tract infection ceftriaxone follow urine culture which grew mixed genital sandra. Complete
[2022-05-20 12:00] LABS: Glucose Point of Care 130 mg/dl (65-105)
[2022-05-20] MEDS: FLUTICASONE PROPIONATE 0.05% NA SPR 16 GM BTL (*BKC) 1 SPRAY NASAL (12:32)
[2022-05-20 16:21] LABS: Glucose Point of Care 59 mg/dl (65-105)
[2022-05-20 16:21] LABS: Glucose Point of Care 129 mg/dl (65-105)
[2022-05-20 17:31] LABS: EDCOVIDSCREEN Negative (Negative)
== END 2022-05-20 18:15 | DRG 307 ==
LOC: ANHED 14:45 → ANH3MED 15:19
PROVIDERS: Admitting Provider Internal Medicine; Emergency Provider Emergency Medicine; PCP Internal Medicine; Visit Provider Internal Medicine
DX: I35.0 Nonrheumatic aortic (valve) stenosis (principal); N39.0 Urinary tract infection, site not specified; I13.0 Hypertensive heart and chronic kidney disease with heart failure and stage 1 through stage 4 chronic kidney disease, or unspecified chronic kidney disease; I50.32 Chronic diastolic (congestive) heart failure; R53.1 Weakness; E11.42 Type 2 diabetes mellitus with diabetic polyneuropathy; N18.32 Chronic kidney disease, stage 3b; E11.22 Type 2 diabetes mellitus with diabetic chronic kidney disease; R29.700 NIHSS score 0; Z20.822 Contact with and (suspected) exposure to COVID-19; D64.9 Anemia, unspecified; K75.81 Nonalcoholic steatohepatitis (NASH); K74.60 Unspecified cirrhosis of liver; J44.9 Chronic obstructive pulmonary disease, unspecified; E03.9 Hypothyroidism, unspecified; F31.9 Bipolar disorder, unspecified; R29.6 Repeated falls; E78.5 Hyperlipidemia, unspecified; K21.9 Gastro-esophageal reflux disease without esophagitis; Z86.73 Personal history of transient ischemic attack (TIA), and cerebral infarction without residual deficits; Z90.49 Acquired absence of other specified parts of digestive tract; Z66 Do not resuscitate; Z87.891 Personal history of nicotine dependence
CPT/HCPCS: 36415; 70450; 70486; 70496; 70498; 70551; 72125; 73502; 80053; 80061; 81001; 82948; 83036; 83605; 83735; 85025; 85610; 85730; 87086; 87088; 87426; 93306; 93880; 94640; 96365; 96366; 97110; 97162; 97165; 97530; 97535; 99285; A9270; C9803; G0378; J0696; J1815; J7030; Q9967

== ENCOUNTER 2022-07-18 08:32 | Inpatient (IN) | payer MEDICARE, MEDICAID, SELFPAY ==
[2022-07-18] VITALS (28 sets, daily range): BP systolic 97–160; BP diastolic 31–56; PULSE 48–65; RESP 10–20; TEMP 36.3–36.7; O2SAT 90–100
--- NOTE | ~2022-07-18 | XR_ITS ---
EXAMINATION: XR chest 1V INDICATION: Altered mental status TECHNIQUE: AP view of the chest is obtained on two radiographs. COMPARISON: 12/08/2021 FINDINGS: There is a mild diffuse interstitial pattern. The heart size is upper limits of normal. No pleural effusion or pneumothorax. IMPRESSION: 1. Mild interstitial opacities which could reflect mild pulmonary edema. Reviewed, dictated and finalized at location A.
--- NOTE | ~2022-07-18 | CT_ITS ---
EXAMINATION: CT brain wo con DATE: 07/18/2022 09:13 INDICATION: Lethargy. Confusion. TECHNIQUE: Computed tomography (CT) of the head was performed without intravenous contrast. The dose- length product was 605.33 mGy-cm. Automated exposure control and iterative reconstruction technique w ere employed. COMPARISON: CT dated 05/17/2022 FINDINGS: There are chronic left lacunar infarctions with encephalomalacia. No ventriculomegaly or mi dline shift. Basilar cisterns are patent. There is mucosal thickening of the sphenoid sinus. No acute infarction, hemorrhage, mass or mass effect. There are scattered mild periventricular and subcortica l white matter changes, most likely related to small vessel ischemic disease (microangiopathy). IMPRESSION: 1. No acute intracranial abnormality. 2: Chronic left lacunar infarctions. 3: Sphenoid sinusitis. Reviewed, dictated and finalized at location B.
--- NOTE | ~2022-07-18 | XR_ITS ---
EXAMINATION: XR chest PICC line Exam Date/Time: 07/21/2022 17:55 CDT HISTORY: placement Comparison: 07/18/2022. RESULT: Lines, tubes, and devices: Right upper extremity PICC terminating in the distal SVC. Lungs and pleura: Clear. Cardiomediastinal silhouette: Streaky bibasilar opacities, likely atelectasis, otherwise clear. No p neumothorax. Other: No acute osseous or upper abdominal finding. IMPRESSION: Right upper extremity PICC, in good position. Reviewed, dictated and finalized at location K.
[2022-07-18 08:43] LABS: Glucose Point of Care 157 mg/dl (65-105)
--- NOTE | 2022-07-18 08:50 | ED.WEAKNESS ---
HPI - Weakness General Chief complaint: Weakness Stated complaint: lethargy, weakness, altered LOC Time Seen by Provider: 07/18/22 08:35 History of Present Illness HPI Narrative: Pt presents after being found at halfway quite lethargic, last time she had been seen normal was 2 weeks ago. She denied any complaints. She has been taking all her usual medications no overdoses on anything. Related Data Home Medications Medication Instructions Recorded Confirmed asenapine maleate 5 mg sublingual 5 mg sublingual Q12H 01/04/20 05/17/22 tablet (Saphris) escitalopram oxalate 5 mg tablet 5 mg PO DAILY 08/21/21 05/17/22 rosuvastatin 20 mg tablet 20 mg PO QHS 08/21/21 05/17/22 trazodone 100 mg tablet 300 mg PO HS 08/21/21 05/17/22 acetaminophen 500 mg tablet 1,000 mg PO Q6H PRN Pain 02/05/22 05/17/22 cyclobenzaprine 10 mg tablet 10 mg PO TID PRN Muscle Spasm 02/13/22 05/17/22 glucagon HCl 1 mg solution for 1 mg subcut Q20M PRN Hypoglycemia 02/13/22 05/17/22 injection (Glucagon (HCl) Emergency Kit) sodium chloride 0.65 % nasal spray 1 spray intranasal BID PRN Dry 02/13/22 05/17/22 aerosol (Saline Mist) Nasal Passages lactulose 10 gram/15 mL oral 30 g PO QID 03/31/22 05/17/22 solution insulin glargine 100 unit/mL (3 9 unit subcut QHS 05/17/22 05/17/22 mL) subcutaneous pen (Lantus Solostar U-100 Insulin) insulin lispro 100 unit/mL 7 unit subcut TIDWMEAL 05/17/22 05/17/22 subcutaneous pen (Humalog KwikPen (U-100) Insulin) lorazepam 0.5 mg tablet 0.5 mg PO TID PRN Anxiety 05/17/22 05/17/22 Allergies Allergy/AdvReac Type Severity Reaction Status Date / Time alendronate sodium Allergy Unknown Unknown Verified 07/18/22 09:03 amantadine Allergy Unknown Unknown Verified 07/18/22 09:03 benztropine Allergy Unknown Unknown Verified 07/18/22 09:03 chlorpromazine Allergy Unknown Unknown Verified 07/18/22 09:03 levofloxacin Allergy Unknown Unknown Verified 07/18/22 09:03 Macrolide Antibiotics Allergy Unknown UNKNOWN Verified 07/18/22 09:03 REACTION mirtazapine Allergy Unknown Unknown Verified 07/18/22 09:03 Quinolones Allergy Unknown Unknown Verified 07/18/22 09:03 topiramate Allergy Unknown Unknown Verified 07/18/22 09:03 Review of Systems Review of Systems: CONST: No fever. HEENT: No sore throat C/V: No chest pain RESP: No cough GI: No nausea vomiting : No dysuria. M/S: No joint pain. SKIN: No rash. NEURO: [No headache or focal numbness or weakness] PSYCH: [No depression] [facility] Past Medical History Medical History Anemia Anxiety Aortic stenosis Mild on echo May 2021, moderate by echo 11/2019 to Arthritis Asthma Bipolar disorder Chronic diastolic CHF (congestive heart failure) Chronic kidney disease, stage III (moderate) Managed by Dr. Aquino COPD (chronic obstructive pulmonary disease) PFTs 06/28/2021: Moderate obstructive abnormality, moderate decreased diffusion capacity CVA (cerebrovascular accident) (~12/2019) Depression Diabetes mellitus Diabetic peripheral neuropathy Diastolic dysfunction Echocardiogram 05/2021: EF 65-70%, grade 1 diastolic dysfunction, E/E elevated, global longitudinal strain mildly abnormal, moderate left atrial enlargement, moderate aortic valve sclerosis, mild aortic valve stenosis with peak velocity 239, mean gradient 14, aortic valve area 1.7 to, mild aortic valve regurgitation, GERD (gastroesophageal reflux disease) HLD (hyperlipidemia) Hypertension Hypothyroidism IBS (irritable bowel syndrome) 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 Moreno History of partial hysterectomy History of thyroi
--- NOTE | 2022-07-18 08:51 | ECG_ITS ---
Measurements Intervals [place] Rate: 58 P: 56 NM: 168 QRS: -66 QRSD: 168 T: 12 QT: 504 QTc: 495 Interpretive Statements SINUS BRADYCARDIA LEFT AXIS DEVIATION [QRS AXIS < -30] RIGHT BUNDLE BRANCH BLOCK [120+ ms QRS DURATION, UPRIGHT V1, 40+ ms S IN I/aVL/V4/V5/V6] COMPARED TO ECG 12/08/2021 12:34:55 NO SIGNIFICANT CHANGE Electronically Signed On 07-18-2022 12:02:12 CDT by Chester Velez M.D.
[2022-07-18 09:44] LABS: Appearance Urine Cloudy (Clear); Bilirubin Urine Negative (Negative); Blood Urine Negative (Negative); Color Urine Yellow (Yellow); Glucose Urine UA Negative (Negative); Ketones Urine Negative (Negative); Leukocyte Esterase Ur 3+ LEU/UL (Negative); Nitrate Urine Negative (Negative); Protein Urine 2+ mg/dL (Negative); Specific Grav Ur 1.015 (1.001-1.035)
[2022-07-18 09:44] LABS: Basophils Percent Auto 0.7 % (0.2-1.2); Eosinophils Absolute Auto 0.2 K/mm3 (0-0.3); Hematocrit 28.5 % (37.0-47.0); Hemoglobin 8.8 g/dL (12.0-15.0); Immature Granulocyte Absolute 0.03 K/mm3 (0.00-0.031); Immature Granulocyte Percent A 0.6 % (0-0.5); Lymphocytes Absolute Auto 1.35 K/mm3 (0.9-3.2); Mean Corpuscular HGB Conc 30.9 g/dl (32-36); Mean Corpuscular Hemoglobin 30.6 pg (26-34); Mean Platelet Volume 10.1 fl (7.4-10.4); Monocytes Absolute Auto 0.4 K/mm3 (0.1-0.6); Monocytes Percent Auto 6.7 % (2.6-8.5); Neutrophils Absolute Auto 3.5 K/mm3 (1.3-6.7); Platelet Count Result 112 k/mm3 (150-375); Red Blood Count 2.88 M/mm3 (4.2-5.4); Red Cell Distribution Width 16.6 % (11.5-14.5); White Blood Count 5.4 K/mm3 (4.5-10.0)
[2022-07-18 09:52] LABS: Bacteria Urine 2+ /hpf; Mucus Urine Rare /lpf; RBC Urine 0-2 /hpf (0-2); Squamous Epithelial Cell Urine Rare /hpf (Few); WBC Clumps Urine Present /HPF; WBC Urine >75 /hpf
[2022-07-18 09:57] LABS: INR 1.2; Prothrombin Time 14.8 Seconds (11.1-14.7)
[2022-07-18 09:58] LABS: Partial Thromboplastin Time 38.3 SECONDS (22.3-36.8)
[2022-07-18 10:01] LABS: Acetaminophen 12 ug/mL (10-30); Ammonia 43 umol/L (9-30); Ethanol < 10 mg/dL (<10); Lactic Acid Reflex 0.9 mmol/L (0.7-2.0); Salicylate < 1.0 mg/dL (2-20)
[2022-07-18 10:01] LABS: Add Urine Microscopic? YES
[2022-07-18 10:02] LABS: Amphetamine Screen Urine Negative (Negative); Barbiturate Screen Urine Negative (Negative); Benzodiazepines Screen Urine Negative (Negative); Cannabinoid Screen Urine Negative (Negative); Cocaine Screen Urine Negative (Negative); Methadone Screen Urine Negative (Negative); Opiate Screen Urine Negative (Negative); Phencyclidine Screen Urine Negative (Negative)
[2022-07-18 10:03] LABS: Alanine Aminotransferase 27 U/L (6-35); Albumin Level 4.3 g/dL (3.5-5.1); Alkaline Phosphatase 346 U/L (38-126); Anion Gap 11 mmol/L (8-16); Aspartate Amino Transferase 57 U/L (14-36); Bilirubin,Total 0.3 mg/dL (0.2-1.3); Blood Urea Nitrogen 44 mg/dL (7-17); Calcium 8.8 mg/dL (8.4-10.2); Carbon Dioxide 23 mmol/L (22-30); Chloride 107 mmol/L (98-107); Creatine Kinase 57 U/L (30-135); Estimated Glomerular Filt Rate 22; Glucose 144 mg/dL (65-110); Potassium 5.4 mmol/L (3.4-5.0); Sodium 141 mmol/L (137-145)
[2022-07-18 10:15] LABS: Troponin I 0.013 ng/mL (0.000-0.034)
--- NOTE | 2022-07-18 14:53 | PM.IMHP ---
H&P: HPI History of Present Illness Date/Time: 07/18/22 14:53 Chief Complaint: Lethargy Narrative: patient was sent to the emergency department from [facility] because she was more lethargic. She was found to have abnormal urinalysis which infrequently as. However over the last week or so she reports symptoms of urinary frequency urgency incomplete emptying difficulty emptying dysuria. She denied bleeding fever increased back pain or incontinence. She denied any recent changes in her medication. She denied any increase in her chronic LOBO when walking in the hallways at the assisted living. She denied chest pain palpitations syncope or presyncope. She denied change in bowel movements. She denied abnormal bleeding including blood in the stools. She denied any focal weakness or numbness. She gets around with a walker and until the last 1-2 weeks she had been doing well with that. Review of Systems Review of Systems: All systems reviewed & are unremarkable except as noted in HPI and below PMF[facility] Past Medical History Medical History Anemia Anxiety Aortic stenosis Mild on echo May 2021, moderate by echo 11/2019 to Arthritis Asthma Bipolar disorder Chronic diastolic CHF (congestive heart failure) Chronic kidney disease, stage III (moderate) Managed by Dr. Aquino COPD (chronic obstructive pulmonary disease) PFTs 06/28/2021: Moderate obstructive abnormality, moderate decreased diffusion capacity CVA (cerebrovascular accident) (~12/2019) Depression Diabetes mellitus Diabetic peripheral neuropathy Diastolic dysfunction Echocardiogram 05/2021: EF 65-70%, grade 1 diastolic dysfunction, E/E elevated, global longitudinal strain mildly abnormal, moderate left atrial enlargement, moderate aortic valve sclerosis, mild aortic valve stenosis with peak velocity 239, mean gradient 14, aortic valve area 1.7 to, mild aortic valve regurgitation, GERD (gastroesophageal reflux disease) HLD (hyperlipidemia) Hypertension Hypothyroidism IBS (irritable bowel syndrome) 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 Moreno History of partial hysterectomy History of thyroidectomy Hx of section Hx of cholecystectomy Hx of tonsillectomy Status post cataract extraction of both eyes with insertion of intraocular lens Family History Family History Sibling Multiple sclerosis Father Acute myocardial infarction, Onset Age: 79 Cerebrovascular accident, Onset Age: 79 Mother Dementia Sibling Acute myocardial infarction, Onset Age: 65 Son Diabetes mellitus Other Depression Family history of arthritis Family history of elevated blood lipids Family history of thyroid disease Hypertension Social History Social History (Updated 07/18/22 @ 15:40 by Cristian Hillman MD) Social History: She is and lives alone. Her when she was 35. She had a common-law who she was with for over 25 years but he in 2019. She has 3 sons 1 of which has diabetes. Former smoker. She denies any history of heavy alcohol use. Code status: DNR/DNI in past. Healthcare power of immigration attorney: Gavino Sigala (son) Smoking packs per day: 1.5 Smoking cigarettes per day: 30.0 Years smoked: 25 Smoking pack-years: 37.50 Smoking status: Former smoker Smoking end date: 11/30/16 Alcohol intake: never Substance use: never Spiritual care concerns: No Meds Home Medications and Allergies Home Medications Me
[2022-07-18] MEDS: LACTULOSE 20 GM/30 ML UDC PO (17:35)
[2022-07-18 17:40] LABS: Iron 65 ug/dL (37-170)
[2022-07-18 17:49] LABS: Percent Iron Saturation 17 % (20-50)
--- NOTE | 2022-07-18 18:00 | ADMGEN ---
This patient, Nisha Sigala, was admitted to Medical Room 343-01. Patient/family oriented to hospital policies and general routines including ID bracelet, bed and alarms, visiting hours, pain management, procedures, bathroom and other care routines, personal items, smoking policy, room service/diet, and visiting hours. Information on how to activate the Rapid Response Team has been discussed. Patient/Family are encouraged to report perceived risks to care and to ask questions if they do not understand what they are told or what they should do.
[2022-07-18 21:29] LABS: Glucose Point of Care 131 mg/dl (65-105)
[2022-07-18] MEDS: INSULIN GLARGINE (*BKC) 100 UNITS/ML 9 UNITS SUB-Q (22:34)
[2022-07-18] MEDS: ROSUVASTATIN 10 MG TABLET 20 MG PO (22:37)
[2022-07-18] MEDS: rifAXIMin 550 MG TABLET PO (22:37)
[2022-07-18] MEDS: traZODone HCL 50 MG TABLET 300 MG PO (22:38)
[2022-07-19 05:12] VITALS: BP 131/49; PULSE 60; RESP 16; TEMP 36.4; O2SAT 94
[2022-07-19] MEDS: INSULIN ASPART (*BKC) 100 UNITS/ML SUB-Q ×3 (06:17→17:13)
[2022-07-19] MEDS: LEVOTHYROXINE SODIUM 125 MCG TABLET PO (06:17)
[2022-07-19 06:21] LABS: Hematocrit 26.6 % (37.0-47.0); Hemoglobin 8.3 g/dL (12.0-15.0); Mean Corpuscular HGB Conc 31.2 g/dl (32-36); Mean Corpuscular Hemoglobin 31.1 pg (26-34); Mean Corpuscular Volume 99.6 fl (80-100); Mean Platelet Volume 10.1 fl (7.4-10.4); Platelet Count Result 106 k/mm3 (150-375); Red Blood Count 2.67 M/mm3 (4.2-5.4); Red Cell Distribution Width 16.7 % (11.5-14.5); White Blood Count 4.9 K/mm3 (4.5-10.0)
[2022-07-19 06:33] LABS: Hemoglobin A1C 5.5 % (<5.7)
[2022-07-19 06:36] LABS: INR 1.3; Prothrombin Time 15.5 Seconds (11.1-14.7)
[2022-07-19 06:37] LABS: Ammonia 49 umol/L (9-30)
[2022-07-19 06:39] LABS: Alanine Aminotransferase 25 U/L (6-35); Albumin Level 3.9 g/dL (3.5-5.1); Alkaline Phosphatase 366 U/L (38-126); Anion Gap 14 mmol/L (8-16); Aspartate Amino Transferase 58 U/L (14-36); Bilirubin,Total 0.4 mg/dL (0.2-1.3); Blood Urea Nitrogen 45 mg/dL (7-17); Calcium 8.8 mg/dL (8.4-10.2); Carbon Dioxide 21 mmol/L (22-30); Chloride 107 mmol/L (98-107); Estimated Glomerular Filt Rate 20; Glucose 130 mg/dL (65-110); Magnesium 2.4 mg/dL (1.6-2.3); Phosphorus 4.3 mg/dL (2.5-4.5); Potassium 4.8 mmol/L (3.4-5.0); Sodium 142 mmol/L (137-145)
[2022-07-19 07:52] LABS: Glucose Point of Care 107 mg/dl (65-105)
[2022-07-19] MEDS: UMECLIDINIUM/VILANTEROL 62.5-25 MCG ELLIPTA 1 PUFF INHALATION (08:01)
[2022-07-19 08:03] VITALS: PULSE 63; RESP 16
[2022-07-19 08:14] LABS: Free T4 Free Thyroxine Reflex 0.87 ng/dL (0.78-2.19)
[2022-07-19 09:10] VITALS: PULSE 70
[2022-07-19] MEDS: ESCITALOPRAM OXALATE 5 MG TABLET PO (09:10)
[2022-07-19] MEDS: rifAXIMin 550 MG TABLET PO ×2 (09:10→20:26)
[2022-07-19] MEDS: FERROUS SULFATE 324 MG TABLET PO (09:10)
[2022-07-19] MEDS: amLODIPine BESYLATE 5 MG TABLET 10 MG PO (09:10)
[2022-07-19] MEDS: PROPRANOLOL HCL 10 MG TABLET PO ×2 (09:10→20:25)
[2022-07-19] MEDS: FUROSEMIDE 40 MG TABLET PO (09:11)
[2022-07-19] MEDS: lamoTRIgine 50 MG TABLET 150 MG PO ×2 (09:11→20:26)
[2022-07-19] MEDS: PANTOPRAZOLE 40 MG TABLET PO (09:11)
--- NOTE | 2022-07-19 09:16 | P.PNIM_ITS ---
Progress Note: A&P Assessment and Plan (1) AMS (altered mental status): Code(s): R41.82 - Altered mental status, unspecified Status: Acute Assessment and Plan: * Given that her recent urinalyses have been abnormal but cultures negative except for normal general [place] it is unlikely that she has an acute UTI * is more likely that she has hepatics encephalopathy perhaps aggravated by polypharmacy * no sign of acute neurologic event and no new changes on CT brain * resume lactulose and add Xifaxan * continue ceftriaxone pending urine culture * PT/OT * Mental status improved * May be discharged 07/20 pending urine culture results. (2) Acute UTI: Code(s): N39.0 - Urinary tract infection, site not specified Status: Acute Assessment and Plan: * suspect asymptomatic bacteriuria versus interstitial cystitis versus nephropathy versus neoplasm as a cause for her persistently abnormal urinalyses with negative urine cultures * acute UTI seems less likely * continue ceftriaxone pending results of culture * consider urology consultation if culture again returns negative (3) CVA (cerebrovascular accident): Onset Date: ~12/2019 Qualifiers: CVA mechanism: unspecified Qualified Code(s): I63.9 - Cerebral infarction, unspecified Code(s): I63.9 - Cerebral infarction, unspecified Status: Acute Assessment and Plan: * recently diagnosed with no prophylactic antiplatelet therapy due to history of gastrointestinal bleeding with esophageal varices (4) Hepatic encephalopathy: Code(s): K72.90 - Hepatic failure, unspecified without coma Status: Acute Assessment and Plan: * avoid polypharmacy especially with sedating agents * continue lactulose * added Xifaxan * monitor for signs or symptoms of bleeding (5) Aortic stenosis: Qualifiers: Cardiac valve disease etiology: nonrheumatic Qualified Code(s): I35.0 - Nonrheumatic aortic (valve) stenosis Code(s): I35.0 - Nonrheumatic aortic (valve) stenosis Status: Acute Assessment and Plan: * only symptom is LOBO which could be multifactorial related to COPD and anemia and deconditioning (6) Cirrhosis of liver with ascites: Qualifiers: Hepatic cirrhosis type: unspecified hepatic cirrhosis Qualified Code(s): K74.60 - Unspecified cirrhosis of liver; R18.8 - Other ascites Code(s): K74.60 - Unspecified cirrhosis of liver; R18.8 - Other ascites Status: Acute Assessment and Plan: * continue to avoid alcohol and hepatotoxic drugs (7) COPD (chronic obstructive pulmonary disease): Qualifiers: COPD type: unspecified COPD Qualified Code(s): J44.9 - Chronic obstructive pulmonary disease, unspecified Code(s): J44.9 - Chronic obstructive pulmonary disease, unspecified Status: Acute Assessment and Plan: * continue to abstain from smoking * continue LAMA-LABA inhaler (8) CHF (congestive heart failure): Qualifiers: Heart failure chronicity: chronic Heart failure type: diastolic Qualified Code(s): I50.32 - Chronic diastolic (congestive) heart failure Code(s): I50.9 - Heart failure, unspecified Status: Acute Assessment and Plan: * continue control of blood pressure and volume status (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
--- NOTE | 2022-07-19 09:16 | PM.IMPN ---
Progress Note: A&P Assessment and Plan (1) AMS (altered mental status): Code(s): R41.82 - Altered mental status, unspecified Status: Acute Assessment and Plan: Given that her recent urinalyses have been abnormal but cultures negative except for normal general [place] it is unlikely that she has an acute UTI is more likely that she has hepatics encephalopathy perhaps aggravated by polypharmacy no sign of acute neurologic event and no new changes on CT brain resume lactulose and add Xifaxan continue ceftriaxone pending urine culture PT/OT Mental status improved May be discharged 07/20 pending urine culture results. (2) Acute UTI: Code(s): N39.0 - Urinary tract infection, site not specified Status: Acute Assessment and Plan: suspect asymptomatic bacteriuria versus interstitial cystitis versus nephropathy versus neoplasm as a cause for her persistently abnormal urinalyses with negative urine cultures acute UTI seems less likely continue ceftriaxone pending results of culture consider urology consultation if culture again returns negative (3) CVA (cerebrovascular accident): Onset Date: ~12/2019 Qualifiers: CVA mechanism: unspecified Qualified Code(s): I63.9 - Cerebral infarction, unspecified Code(s): I63.9 - Cerebral infarction, unspecified Status: Acute Assessment and Plan: recently diagnosed with no prophylactic antiplatelet therapy due to history of gastrointestinal bleeding with esophageal varices (4) Hepatic encephalopathy: Code(s): K72.90 - Hepatic failure, unspecified without coma Status: Acute Assessment and Plan: avoid polypharmacy especially with sedating agents continue lactulose added Xifaxan monitor for signs or symptoms of bleeding (5) Aortic stenosis: Qualifiers: Cardiac valve disease etiology: nonrheumatic Qualified Code(s): I35.0 - Nonrheumatic aortic (valve) stenosis Code(s): I35.0 - Nonrheumatic aortic (valve) stenosis Status: Acute Assessment and Plan: only symptom is LOBO which could be multifactorial related to COPD and anemia and deconditioning (6) Cirrhosis of liver with ascites: Qualifiers: Hepatic cirrhosis type: unspecified hepatic cirrhosis Qualified Code(s): K74.60 - Unspecified cirrhosis of liver; R18.8 - Other ascites Code(s): K74.60 - Unspecified cirrhosis of liver; R18.8 - Other ascites Status: Acute Assessment and Plan: continue to avoid alcohol and hepatotoxic drugs (7) COPD (chronic obstructive pulmonary disease): Qualifiers: COPD type: unspecified COPD Qualified Code(s): J44.9 - Chronic obstructive pulmonary disease, unspecified Code(s): J44.9 - Chronic obstructive pulmonary disease, unspecified Status: Acute Assessment and Plan: continue to abstain from smoking continue LAMA-LABA inhaler (8) CHF (congestive heart failure): Qualifiers: Heart failure chronicity: chronic Heart failure type: diastolic Qualified Code(s): I50.32 - Chronic diastolic (congestive) heart failure Code(s): I50.9 - Heart failure, unspecified Status: Acute Assessment and Plan: continue control of blood pressure and volume status (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
[2022-07-19 12:07] LABS: Glucose Point of Care 117 mg/dl (65-105)
[2022-07-19 12:34] LABS: Total Triiodothyronine (T3) 0.76 NG/ML (0.97-1.69)
[2022-07-19 14:00] VITALS: BP 130/38; PULSE 60; RESP 20; TEMP 36.6; O2SAT 98
[2022-07-19 17:08] LABS: Glucose Point of Care 111 mg/dl (65-105)
[2022-07-19] MEDS: ROSUVASTATIN 10 MG TABLET 20 MG PO (20:24)
[2022-07-19 20:25] VITALS: BP 133/45; PULSE 64; PULSE 67; RESP 18; TEMP 36.6; O2SAT 93
[2022-07-19] MEDS: traZODone HCL 50 MG TABLET 300 MG PO (20:25)
[2022-07-19] MEDS: INSULIN GLARGINE (*BKC) 100 UNITS/ML 9 UNITS SUB-Q (20:30)
[2022-07-19 20:31] LABS: Glucose Point of Care 211 mg/dl (65-105)
[2022-07-20 04:43] VITALS: BP 131/46; PULSE 56; RESP 18; TEMP 36.2; O2SAT 96
[2022-07-20 06:25] LABS: Hematocrit 26.7 % (37.0-47.0); Hemoglobin 8.4 g/dL (12.0-15.0); Mean Corpuscular HGB Conc 31.5 g/dl (32-36); Mean Corpuscular Hemoglobin 30.7 pg (26-34); Mean Corpuscular Volume 97.4 fl (80-100); Mean Platelet Volume 10.3 fl (7.4-10.4); Platelet Count Result 112 k/mm3 (150-375); Red Blood Count 2.74 M/mm3 (4.2-5.4); Red Cell Distribution Width 16.4 % (11.5-14.5); White Blood Count 4.5 K/mm3 (4.5-10.0)
[2022-07-20] MEDS: LEVOTHYROXINE SODIUM 125 MCG TABLET PO (06:31)
[2022-07-20] MEDS: INSULIN ASPART (*BKC) 100 UNITS/ML SUB-Q ×3 (06:33→11:46)
[2022-07-20 06:36] LABS: INR 1.3; Prothrombin Time 15.4 Seconds (11.1-14.7)
[2022-07-20 06:42] LABS: Alanine Aminotransferase 21 U/L (6-35); Albumin Level 3.9 g/dL (3.5-5.1); Alkaline Phosphatase 346 U/L (38-126); Anion Gap 12 mmol/L (8-16); Aspartate Amino Transferase 45 U/L (14-36); Bilirubin,Total 0.3 mg/dL (0.2-1.3); Blood Urea Nitrogen 43 mg/dL (7-17); Calcium 9.4 mg/dL (8.4-10.2); Carbon Dioxide 21 mmol/L (22-30); Chloride 105 mmol/L (98-107); Estimated Glomerular Filt Rate 20; Glucose 141 mg/dL (65-110); Phosphorus 4.2 mg/dL (2.5-4.5); Sodium 138 mmol/L (137-145)
[2022-07-20] MEDS: UMECLIDINIUM/VILANTEROL 62.5-25 MCG ELLIPTA 1 PUFF INHALATION (07:38)
[2022-07-20 07:41] VITALS: O2SAT 95
[2022-07-20 08:25] LABS: Glucose Point of Care 104 mg/dl (65-105)
[2022-07-20 09:06] VITALS: PULSE 61
[2022-07-20] MEDS: PROPRANOLOL HCL 10 MG TABLET PO ×2 (09:06→21:36)
[2022-07-20] MEDS: rifAXIMin 550 MG TABLET PO ×2 (09:06→21:14)
[2022-07-20] MEDS: PANTOPRAZOLE 40 MG TABLET PO (09:07)
[2022-07-20] MEDS: amLODIPine BESYLATE 5 MG TABLET 10 MG PO (09:07)
[2022-07-20] MEDS: ESCITALOPRAM OXALATE 5 MG TABLET PO (09:08)
[2022-07-20] MEDS: FERROUS SULFATE 324 MG TABLET PO (09:09)
[2022-07-20] MEDS: lamoTRIgine 50 MG TABLET 150 MG PO ×2 (09:09→21:14)
[2022-07-20] MEDS: FUROSEMIDE 40 MG TABLET PO (09:09)
[2022-07-20 11:41] LABS: Glucose Point of Care 209 mg/dl (65-105)
--- NOTE | 2022-07-20 12:47 | P.PNIM_ITS ---
Progress Note: A&P Assessment and Plan (1) Acute UTI: Code(s): N39.0 - Urinary tract infection, site not specified Status: Acute Assessment and Plan: * Urine culture with 100,000 CFU ESBL E.coli., * Stop Rocephin. Start Ertapenem 1 gram Q24 hours. Patient will need at least 10 days IV antibiotics. * consider urology consultation outpatient for frequent UTIs (2) AMS (altered mental status): Code(s): R41.82 - Altered mental status, unspecified Status: Acute Assessment and Plan: Encephalopathy hepatic versus metabolic. * Urine culture shows ESBL and patient was symptomatic on admission. AMS may be secondary to acute infection. Continue antibiotics * hepatic encephalopathy possibly aggravated by polypharmacy - Continue lactulose and Xifaxan * CT brain negative. * PT/OT * Mental status improving. (3) Hepatic encephalopathy: Code(s): K72.90 - Hepatic failure, unspecified without coma Status: Chronic Assessment and Plan: * avoid polypharmacy especially with sedating agents * Ammonia mildly elevated on admisison. Continue lactulose and Xifaxan (4) CVA (cerebrovascular accident): Onset Date: ~12/2019 Qualifiers: CVA mechanism: unspecified Qualified Code(s): I63.9 - Cerebral infarction, unspecified Code(s): I63.9 - Cerebral infarction, unspecified Status: Chronic Assessment and Plan: * recently diagnosed with no prophylactic antiplatelet therapy due to history of gastrointestinal bleeding with esophageal varices * No focal deficits. (5) Hypothyroidism: Qualifiers: Hypothyroidism type: acquired Qualified Code(s): E03.9 - Hypothyroidism, unspecified Code(s): E03.9 - Hypothyroidism, unspecified Status: Acute Assessment and Plan: * TSH of 9.22 suggest noncompliance with medications * Free T4 0.87 * Patient did report noncompliance with medications. * Continue levothyroxine at home dose. Repeat thyroid panel in 4-6 weeks. (6) Aortic stenosis: Qualifiers: Cardiac valve disease etiology: nonrheumatic Qualified Code(s): I35.0 - Nonrheumatic aortic (valve) stenosis Code(s): I35.0 - Nonrheumatic aortic (valve) stenosis Status: Chronic Assessment and Plan: * only symptom is LOBO which could be multifactorial related to COPD and anemia and deconditioning (7) Cirrhosis of liver with ascites: Qualifiers: Hepatic cirrhosis type: unspecified hepatic cirrhosis Qualified Code(s): K74.60 - Unspecified cirrhosis of liver; R18.8 - Other ascites Code(s): K74.60 - Unspecified cirrhosis of liver; R18.8 - Other ascites Status: Chronic Assessment and Plan: * continue to avoid alcohol and hepatotoxic drugs * AST 45, ALT 21, Alk phos 346, Tbili 0.3, platelets 112 (8) COPD (chronic obstructive pulmonary disease): Qualifiers: COPD type: unspecified COPD Qualified Code(s): J44.9 - Chronic obstructive pulmonary disease, unspecified Code(s): J44.9 - Chronic obstructive pulmonary disease, unspecified Status: Chronic Assessment and Plan: Not in acute exacerbation. * continue to abstain from smoking * continue LAMA-LABA inhaler (9) CHF (congestive heart failure): Qualifiers: Heart failure chronicity: chronic Heart failure type: diastolic Qualified Code(s): I50.32 - Chronic diastolic (congestive) heart failure Code(s): I50.9 - Heart failure, unspecified Status: C
--- NOTE | 2022-07-20 12:47 | PM.IMPN ---
Progress Note: A&P Assessment and Plan (1) Acute UTI: Code(s): N39.0 - Urinary tract infection, site not specified Status: Acute Assessment and Plan: Urine culture with 100,000 CFU ESBL E.coli., Stop Rocephin. Start Ertapenem 1 gram Q24 hours. Patient will need at least 10 days IV antibiotics. consider urology consultation outpatient for frequent UTIs (2) AMS (altered mental status): Code(s): R41.82 - Altered mental status, unspecified Status: Acute Assessment and Plan: Encephalopathy hepatic versus metabolic. Urine culture shows ESBL and patient was symptomatic on admission. AMS may be secondary to acute infection. Continue antibiotics hepatic encephalopathy possibly aggravated by polypharmacy - Continue lactulose and Xifaxan CT brain negative. PT/OT Mental status improving. (3) Hepatic encephalopathy: Code(s): K72.90 - Hepatic failure, unspecified without coma Status: Chronic Assessment and Plan: avoid polypharmacy especially with sedating agents Ammonia mildly elevated on admisison. Continue lactulose and Xifaxan (4) CVA (cerebrovascular accident): Onset Date: ~12/2019 Qualifiers: CVA mechanism: unspecified Qualified Code(s): I63.9 - Cerebral infarction, unspecified Code(s): I63.9 - Cerebral infarction, unspecified Status: Chronic Assessment and Plan: recently diagnosed with no prophylactic antiplatelet therapy due to history of gastrointestinal bleeding with esophageal varices No focal deficits. (5) Hypothyroidism: Qualifiers: Hypothyroidism type: acquired Qualified Code(s): E03.9 - Hypothyroidism, unspecified Code(s): E03.9 - Hypothyroidism, unspecified Status: Acute Assessment and Plan: TSH of 9.22 suggest noncompliance with medications Free T4 0.87 Patient did report noncompliance with medications. Continue levothyroxine at home dose. Repeat thyroid panel in 4-6 weeks. (6) Aortic stenosis: Qualifiers: Cardiac valve disease etiology: nonrheumatic Qualified Code(s): I35.0 - Nonrheumatic aortic (valve) stenosis Code(s): I35.0 - Nonrheumatic aortic (valve) stenosis Status: Chronic Assessment and Plan: only symptom is LOBO which could be multifactorial related to COPD and anemia and deconditioning (7) Cirrhosis of liver with ascites: Qualifiers: Hepatic cirrhosis type: unspecified hepatic cirrhosis Qualified Code(s): K74.60 - Unspecified cirrhosis of liver; R18.8 - Other ascites Code(s): K74.60 - Unspecified cirrhosis of liver; R18.8 - Other ascites Status: Chronic Assessment and Plan: continue to avoid alcohol and hepatotoxic drugs AST 45, ALT 21, Alk phos 346, Tbili 0.3, platelets 112 (8) COPD (chronic obstructive pulmonary disease): Qualifiers: COPD type: unspecified COPD Qualified Code(s): J44.9 - Chronic obstructive pulmonary disease, unspecified Code(s): J44.9 - Chronic obstructive pulmonary disease, unspecified Status: Chronic Assessment and Plan: Not in acute exacerbation. continue to abstain from smoking continue LAMA-LABA inhaler (9) CHF (congestive heart failure): Qualifiers: Heart failure chronicity: chronic Heart failure type: diastolic Qualified Code(s): I50.32 - Chronic diastolic (congestive) heart failure Code(s): I50.9 - Heart failure, unspecified Status: Chronic Assessment and Plan: Chronic, not in acute exacerbation. continue control of blood pressure and volume status- on amlodipine, furosemide and propranolol (10) Type 2 diabetes mellitus with chronic kidney disease: Qualifiers: Chronic kidney disease stage: stage 3 (moderate) Chronic kidney disease stage 3 subtype: stage 3b (GFR 30-44) Diabetes mellitus mcc insulin use: without rat exterminator use Qualif
[2022-07-20] MEDS: ERTAPENEM 1 GM/NS 50 ML 1 GM/50 ML BAG IVPB (13:40)
[2022-07-20 14:15] VITALS: BP 103/71; PULSE 54; RESP 14; TEMP 36.6; O2SAT 100
[2022-07-20 16:49] LABS: Glucose Point of Care 88 mg/dl (65-105)
[2022-07-20 20:02] LABS: Glucose Point of Care 127 mg/dl (65-105)
[2022-07-20 20:12] VITALS: BP 124/44; PULSE 60; RESP 18; TEMP 36.6; O2SAT 97
[2022-07-20] MEDS: ROSUVASTATIN 10 MG TABLET 20 MG PO (21:14)
[2022-07-20] MEDS: traZODone HCL 50 MG TABLET 300 MG PO (21:14)
[2022-07-20] MEDS: INSULIN GLARGINE (*BKC) 100 UNITS/ML 9 UNITS SUB-Q (21:15)
[2022-07-20 21:36] VITALS: PULSE 60
[2022-07-21] VITALS (7 sets, daily range): BP systolic 121–140; BP diastolic 40–64; PULSE 51–98; RESP 12–18; TEMP 36.7–37.1; O2SAT 93–99
[2022-07-21 05:47] LABS: Glucose Point of Care 135 mg/dl (65-105)
[2022-07-21] MEDS: LEVOTHYROXINE SODIUM 125 MCG TABLET PO (06:17)
[2022-07-21 07:09] LABS: Basophils Absolute Auto 0.1 K/mm3 (0.0-0.1); Basophils Percent Auto 1.1 % (0.2-1.2); Eosinophils Absolute Auto 0.3 K/mm3 (0-0.3); Eosinophils Percent Auto 5.6 % (0-4.4); Hematocrit 28.1 % (37.0-47.0); Hemoglobin 8.9 g/dL (12.0-15.0); Immature Granulocyte Absolute 0.03 K/mm3 (0.00-0.031); Immature Granulocyte Percent A 0.5 % (0-0.5); Lymphocytes Absolute Auto 1.56 K/mm3 (0.9-3.2); Lymphocytes Percent Auto 27.4 % (18.3-44.2); Mean Corpuscular HGB Conc 31.7 g/dl (32-36); Mean Corpuscular Hemoglobin 30.5 pg (26-34); Mean Corpuscular Volume 96.2 fl (80-100); Mean Platelet Volume 10.1 fl (7.4-10.4); Monocytes Absolute Auto 0.4 K/mm3 (0.1-0.6); Monocytes Percent Auto 6.3 % (2.6-8.5); Neutrophils Absolute Auto 3.4 K/mm3 (1.3-6.7); Neutrophils Percent Auto 59.1 % (45.5-73.1); Platelet Count Result 127 k/mm3 (150-375); Red Blood Count 2.92 M/mm3 (4.2-5.4); Red Cell Distribution Width 16.2 % (11.5-14.5); White Blood Count 5.7 K/mm3 (4.5-10.0)
[2022-07-21 07:37] LABS: Anion Gap 12 mmol/L (8-16); Blood Urea Nitrogen 37 mg/dL (7-17); Calcium 9.1 mg/dL (8.4-10.2); Carbon Dioxide 22 mmol/L (22-30); Chloride 105 mmol/L (98-107); Estimated Glomerular Filt Rate 20; Glucose 139 mg/dL (65-110); Potassium 4.2 mmol/L (3.4-5.0); Sodium 139 mmol/L (137-145)
[2022-07-21] MEDS: ESCITALOPRAM OXALATE 5 MG TABLET PO (08:51)
[2022-07-21] MEDS: lamoTRIgine 50 MG TABLET 150 MG PO ×2 (08:51→20:34)
[2022-07-21] MEDS: amLODIPine BESYLATE 5 MG TABLET 10 MG PO (08:51)
[2022-07-21] MEDS: rifAXIMin 550 MG TABLET PO ×2 (08:51→20:34)
[2022-07-21] MEDS: PANTOPRAZOLE 40 MG TABLET PO (08:52)
[2022-07-21] MEDS: FUROSEMIDE 40 MG TABLET PO (08:52)
[2022-07-21] MEDS: FERROUS SULFATE 324 MG TABLET PO (08:52)
[2022-07-21] MEDS: PROPRANOLOL HCL 10 MG TABLET PO ×2 (08:54→20:35)
[2022-07-21 08:56] LABS: Glucose Point of Care 150 mg/dl (65-105)
[2022-07-21] MEDS: UMECLIDINIUM/VILANTEROL 62.5-25 MCG ELLIPTA 1 PUFF INHALATION (08:57)
[2022-07-21 11:56] LABS: Glucose Point of Care 141 mg/dl (65-105)
--- NOTE | 2022-07-21 12:17 | PM.IMPN ---
Progress Note: A&P Assessment and Plan (1) Acute UTI: Code(s): N39.0 - Urinary tract infection, site not specified Status: Acute Assessment and Plan: Urine culture with 100,000 CFU ESBL E.coli. Patient has allergy to fluoroquinolones, h/o CKD and reported fever. Rocephin stopped. Unable to treat with Levaquin, Cipro, or Bactrim due to allergy and CKD. Macrobid not appropriate d/t possible upper urinary tract symptoms. Day 2 of 10- Ertapenem 1 gram Q24 hours. Patient will need at least 10 days IV antibiotics. consider urology consultation outpatient for frequent UTIs (2) AMS (altered mental status): Code(s): R41.82 - Altered mental status, unspecified Status: Acute Assessment and Plan: Encephalopathy hepatic versus metabolic. Urine culture shows ESBL and patient was symptomatic on admission. AMS may be secondary to acute infection. Continue antibiotics hepatic encephalopathy possibly aggravated by polypharmacy - Continue lactulose and Xifaxan CT brain negative. Mental status improving. (3) Hepatic encephalopathy: Code(s): K72.90 - Hepatic failure, unspecified without coma Status: Chronic Assessment and Plan: avoid polypharmacy especially with sedating agents Ammonia mildly elevated on admission. Continue lactulose and Xifaxan (4) CVA (cerebrovascular accident): Onset Date: ~12/2019 Qualifiers: CVA mechanism: unspecified Qualified Code(s): I63.9 - Cerebral infarction, unspecified Code(s): I63.9 - Cerebral infarction, unspecified Status: Chronic Assessment and Plan: Recently diagnosed with no prophylactic antiplatelet therapy due to history of gastrointestinal bleeding with esophageal varices No focal deficits. (5) Hypothyroidism: Qualifiers: Hypothyroidism type: acquired Qualified Code(s): E03.9 - Hypothyroidism, unspecified Code(s): E03.9 - Hypothyroidism, unspecified Status: Acute Assessment and Plan: TSH of 9.22 suggest noncompliance with medications. Free T4 0.87 Patient did report noncompliance with medications. Continue levothyroxine at home dose. Repeat thyroid panel in 4-6 weeks. (6) Aortic stenosis: Qualifiers: Cardiac valve disease etiology: nonrheumatic Qualified Code(s): I35.0 - Nonrheumatic aortic (valve) stenosis Code(s): I35.0 - Nonrheumatic aortic (valve) stenosis Status: Chronic Assessment and Plan: Stable. Avoid hypotension. (7) Cirrhosis of liver with ascites: Qualifiers: Hepatic cirrhosis type: unspecified hepatic cirrhosis Qualified Code(s): K74.60 - Unspecified cirrhosis of liver; R18.8 - Other ascites Code(s): K74.60 - Unspecified cirrhosis of liver; R18.8 - Other ascites Status: Chronic Assessment and Plan: Continue to avoid alcohol and hepatotoxic drugs Continue lactulose, furosemide, propranolol and rifaximin (8) COPD (chronic obstructive pulmonary disease): Qualifiers: COPD type: unspecified COPD Qualified Code(s): J44.9 - Chronic obstructive pulmonary disease, unspecified Code(s): J44.9 - Chronic obstructive pulmonary disease, unspecified Status: Chronic Assessment and Plan: Not in acute exacerbation. continue LAMA-LABA inhaler (9) CHF (congestive heart failure): Qualifiers: Heart failure chronicity: chronic Heart failure type: diastolic Qualified Code(s): I50.32 - Chronic diastolic (congestive) heart failure Code(s): I50.9 - Heart failure, unspecified Status: Chronic Assessment and Plan: Chronic, not in acute exacerbation. on amlodipine, furosemide and propranolol Cumulative I/O -1940 mL (10) Type 2 diabetes mellitus with chronic kidney disease: Qualifiers: Chronic kidney disease stage: stage 3 (moderate) Chronic kidney disease stage 3 subtype: stage 3b (GFR 30-44) Diabet
[2022-07-21] MEDS: ERTAPENEM 1 GM/NS 50 ML 1 GM/50 ML BAG IVPB (13:33)
[2022-07-21 16:42] LABS: Glucose Point of Care 110 mg/dl (65-105)
--- NOTE | 2022-07-21 18:42 | PC.NURSE ---
Per Dr. Iverson, from [facility]. Ms to use IV.
[2022-07-21] MEDS: MELATONIN 3 MG TABLET PO (20:34)
[2022-07-21] MEDS: traZODone HCL 50 MG TABLET 300 MG PO (20:35)
[2022-07-21] MEDS: INSULIN GLARGINE (*BKC) 100 UNITS/ML 9 UNITS SUB-Q (20:36)
[2022-07-21] MEDS: ROSUVASTATIN 10 MG TABLET 20 MG PO (20:36)
[2022-07-21 20:56] LABS: Glucose Point of Care 130 mg/dl (65-105)
[2022-07-22 04:39] VITALS: BP 120/54; PULSE 51; RESP 16; TEMP 36.7; O2SAT 96
[2022-07-22] MEDS: LEVOTHYROXINE SODIUM 125 MCG TABLET PO (05:45)
[2022-07-22 06:11] LABS: Basophils Absolute Auto 0.1 K/mm3 (0.0-0.1); Basophils Percent Auto 1.2 % (0.2-1.2); Eosinophils Absolute Auto 0.4 K/mm3 (0-0.3); Hematocrit 28.6 % (37.0-47.0); Immature Granulocyte Absolute 0.02 K/mm3 (0.00-0.031); Immature Granulocyte Percent A 0.3 % (0-0.5); Lymphocytes Absolute Auto 1.77 K/mm3 (0.9-3.2); Lymphocytes Percent Auto 26.5 % (18.3-44.2); Mean Corpuscular HGB Conc 31.5 g/dl (32-36); Mean Corpuscular Hemoglobin 30.9 pg (26-34); Mean Corpuscular Volume 98.3 fl (80-100); Mean Platelet Volume 10.1 fl (7.4-10.4); Monocytes Absolute Auto 0.5 K/mm3 (0.1-0.6); Platelet Count Result 136 k/mm3 (150-375); Red Blood Count 2.91 M/mm3 (4.2-5.4); White Blood Count 6.7 K/mm3 (4.5-10.0)
[2022-07-22 06:24] LABS: Anion Gap 14 mmol/L (8-16); Blood Urea Nitrogen 41 mg/dL (7-17); Carbon Dioxide 21 mmol/L (22-30); Chloride 103 mmol/L (98-107); Estimated Glomerular Filt Rate 20; Glucose 133 mg/dL (65-110); Potassium 4.8 mmol/L (3.4-5.0); Sodium 138 mmol/L (137-145)
[2022-07-22] MEDS: UMECLIDINIUM/VILANTEROL 62.5-25 MCG ELLIPTA 1 PUFF INHALATION (07:37)
[2022-07-22 07:38] VITALS: O2SAT 96
[2022-07-22 08:15] LABS: Glucose Point of Care 137 mg/dl (65-105)
[2022-07-22 09:46] VITALS: PULSE 60
[2022-07-22] MEDS: FUROSEMIDE 40 MG TABLET PO (09:46)
[2022-07-22] MEDS: ESCITALOPRAM OXALATE 5 MG TABLET PO (09:46)
[2022-07-22] MEDS: FERROUS SULFATE 324 MG TABLET PO (09:46)
[2022-07-22] MEDS: amLODIPine BESYLATE 5 MG TABLET 10 MG PO (09:46)
[2022-07-22] MEDS: rifAXIMin 550 MG TABLET PO (09:46)
[2022-07-22] MEDS: PROPRANOLOL HCL 10 MG TABLET PO (09:46)
[2022-07-22] MEDS: PANTOPRAZOLE 40 MG TABLET PO (09:48)
[2022-07-22] MEDS: lamoTRIgine 50 MG TABLET 150 MG PO (09:48)
[2022-07-22 12:21] LABS: Glucose Point of Care 127 mg/dl (65-105)
[2022-07-22] MEDS: ERTAPENEM 1 GM/NS 50 ML 1 GM/50 ML BAG IVPB (12:42)
--- NOTE | 2022-07-22 13:26 | PM.DS ---
DS: Admitting Diagnosis Discharge Date 01/22/22 1451 Admitting Diagnosis Altered mental status Acute UTI Hepatic encephalopthy Hypothyroidism DS: Discharge Diagnosis Discharge Diagnosis (1) Acute UTI: Code(s): N39.0 - Urinary tract infection, site not specified Status: Acute (2) Hepatic encephalopathy: Code(s): K72.90 - Hepatic failure, unspecified without coma Status: Chronic (3) Metabolic encephalopathy: Code(s): G93.41 - Metabolic encephalopathy Status: Acute (4) Hypothyroidism: Qualifiers: Hypothyroidism type: acquired Qualified Code(s): E03.9 - Hypothyroidism, unspecified Code(s): E03.9 - Hypothyroidism, unspecified Status: Acute (5) Cirrhosis of liver with ascites: Qualifiers: Hepatic cirrhosis type: unspecified hepatic cirrhosis Qualified Code(s): K74.60 - Unspecified cirrhosis of liver; R18.8 - Other ascites Code(s): K74.60 - Unspecified cirrhosis of liver; R18.8 - Other ascites Status: Chronic (6) Type 2 diabetes mellitus with chronic kidney disease: Qualifiers: Chronic kidney disease stage: stage 3 (moderate) Chronic kidney disease stage 3 subtype: stage 3b (GFR 30-44) Diabetes mellitus mcc insulin use: without meterman use Qualified Code(s): E11.22 - Type 2 diabetes mellitus with diabetic chronic kidney disease; N18.32 - Chronic kidney disease, stage 3b Code(s): E11.22 - Type 2 diabetes mellitus with diabetic chronic kidney disease Status: Chronic (7) Chronic kidney disease, stage III (moderate): Qualifiers: Chronic kidney disease stage 3 subtype: stage 3b (GFR 30-44) Qualified Code(s): N18.32 - Chronic kidney disease, stage 3b Code(s): N18.3 - Chronic kidney disease, stage 3 (moderate) Status: Chronic DS: Summary Hospital Course Reason for hospitalization: Lethargy Hospital Course: Nisha Sigala is a 76 yo female with past medical history significant for CKD stage 3, diastolic CHF, COPD, stroke, IDDM with peripheral neuropathy, Liver cirosis with hepatic encephalopathy, bipolar disorder and aortic stenosis. She presented to the ED, from [facility], for evaluation of lethargy. She was found to have abnormal urinalysis suggesting infection. Over the past week prior to admission she reported symptoms of urinary frequency, urgency, incomplete emptying, and dysuria.? No bleeding or fever.? She denied any recent changes in her medication. She denied any increase in her chronic LOBO when walking in the hallways at the assisted living.? She denied chest pain palpitations syncope or presyncope.? She denied change in bowel movements.? She denied abnormal bleeding including blood in the stools.? She denied any focal weakness or numbness.? She gets around with a walker and until the last 1-2 weeks she had been doing well with that. The patient was admitted to the medical floor and treated with IV Rocephin. Urine culture showed ESBL E.coli >100,000 CFU. The patient has an allergy to fluoroquinolones and has CKD, so bactrim and macrobid would not be appropriate. She was changed to Ertapenem 1 gram Q24 hours on 07/20/22, which will be continued for a total of 10 days. PICC line was placed on 07/21 and placement was verified. She will be discharged to SNF for IV antibiotic therapy. Altered mental status was thought to be multifactorial with metabolic encephalopathy from acute infection and/or polypharmacy, as well as hepatic encephalopathy. She was noted to have mildly elevated ammonia level and was started on xifaxan. CT brain was negative for acute findings. Her mental status returned to baseline. Her TSH was elevated 9.22 with low free T4 and total T3. She had reported not taking this medication. She was resumed on levothyroxine 125 mcg daily. Repeat TSH with reflux free T4 should be drawn in 4-6 weeks. Renal function remained stable during her hospital sta
[2022-07-22 14:00] VITALS: BP 130/51; PULSE 53; RESP 16; TEMP 36.7; O2SAT 99
[2022-07-22 16:42] LABS: Glucose Point of Care 141 mg/dl (65-105)
[2022-07-22 18:33] LABS: EDCOVIDSCREEN Negative (Negative)
== END 2022-07-22 18:30 | DRG 689 ==
LOC: ANHED 10:59 → ANH3MED 14:00
PROVIDERS: Internal Medicine; Admitting Provider Family Medicine; Emergency Provider Emergency Medicine; PCP Internal Medicine; Visit Provider Nurse Practitioner Family
DX: N39.0 Urinary tract infection, site not specified (principal); G93.41 Metabolic encephalopathy; I13.0 Hypertensive heart and chronic kidney disease with heart failure and stage 1 through stage 4 chronic kidney disease, or unspecified chronic kidney disease; I50.32 Chronic diastolic (congestive) heart failure; Z16.12 Extended spectrum beta lactamase (ESBL) resistance; R18.8 Other ascites; K72.90 Hepatic failure, unspecified without coma; E11.22 Type 2 diabetes mellitus with diabetic chronic kidney disease; N18.32 Chronic kidney disease, stage 3b; Z20.822 Contact with and (suspected) exposure to COVID-19; E03.9 Hypothyroidism, unspecified; K74.60 Unspecified cirrhosis of liver; E11.42 Type 2 diabetes mellitus with diabetic polyneuropathy; J44.9 Chronic obstructive pulmonary disease, unspecified; I35.0 Nonrheumatic aortic (valve) stenosis; D64.9 Anemia, unspecified; F41.9 Anxiety disorder, unspecified; F31.9 Bipolar disorder, unspecified; E78.5 Hyperlipidemia, unspecified; K21.9 Gastro-esophageal reflux disease without esophagitis; K58.9 Irritable bowel syndrome, unspecified; M81.0 Age-related osteoporosis without current pathological fracture; K75.81 Nonalcoholic steatohepatitis (NASH); Z86.73 Personal history of transient ischemic attack (TIA), and cerebral infarction without residual deficits; M19.90 Unspecified osteoarthritis, unspecified site; Z90.49 Acquired absence of other specified parts of digestive tract; Z98.42 Cataract extraction status, left eye; Z98.41 Cataract extraction status, right eye; Z96.1 Presence of intraocular lens; Z66 Do not resuscitate; Z87.891 Personal history of nicotine dependence
CPT/HCPCS: 36415; 36569; 70450; 71045; 80048; 80053; 80069; 80076; 80307; 81001; 82140; 82550; 82728; 82948; 83036; 83540; 83550; 83605; 83735; 84100; 84439; 84443; 84480; 84484; 85025; 85027; 85610; 85730; 87077; 87086; 87186; 87426; 93005; 94640; 96365; 96367; 97161; 97165; 99285; A9270; C1751; C9803; G0378; J0696; J1335; J1815

== ENCOUNTER 2022-07-28 10:49 | Emergency (ER) | payer MEDICARE, MEDICAID, SELFPAY ==
--- NOTE | ~2022-07-28 | XR_ITS ---
EXAMINATION: XR chest 1V DATE: 07/28/2022 11:16 INDICATION: Altered level of consciousness TECHNIQUE: frontal view of the chest was obtained. COMPARISON: Chest radiograph dated 07/21/2022 FINDINGS: Right upper extremity peripherally inserted central venous catheter (PICC) tip at the mid superior v axel cava. Mild elevation the left hemidiaphragm. There are increased perihilar predominant indistinct interstitial opacities. No pleural effusion or pneumothorax. Mild cardiomegaly. Cholecystectomy clip s in right upper quadrant. IMPRESSION: 1. New perihilar predominant interstitial opacities most likely related to pulmonary edema although d ifferential includes pneumonia. 2. Mild cardiomegaly. Reviewed, dictated and finalized at location A. IMPRESSION: 1. New perihilar predominant interstitial opacities most likely related to pulm onary edema although differential includes pneumonia. 2. Mild cardiomegaly.
--- NOTE | ~2022-07-28 | CT_ITS ---
EXAMINATION: CT brain wo con DATE: 07/28/2022 11:14 INDICATION: Head injury. TECHNIQUE: Computed tomography (CT) of the head was performed without intravenous contrast. The mA wa s adjusted according to patient size. Iterative reconstruction technique was employed. The dose-lengt h product was 605.33 mGy-cm. COMPARISON: Head CT 07/18/2022 FINDINGS: There is an old infarct involving the left basal ganglia and left insula. There is no intra cranial hemorrhage, acute infarction, or abnormal intracranial mass lesion. There is ex vacuo dilatat ion of left lateral ventricle. There is mild mucosal thickening in the paranasal sinuses. There are l ikely changes of ocular lens replacement surgeries. The mastoid air cells are normal. IMPRESSION: 1. Old infarct involving the left basal ganglia and left insula. Reviewed, dictated and finalized at location A.
[2022-07-28 10:50] VITALS: BP 142/48; PULSE 53; RESP 12; TEMP 36.8; O2SAT 98
--- NOTE | 2022-07-28 10:56 | ECG_ITS ---
Measurements Intervals [place] Rate: 52 P: 23 RI: 201 QRS: -66 QRSD: 173 T: 29 QT: 527 QTc: 493 Interpretive Statements SINUS BRADYCARDIA WITH BORDERLINE FIRST-DEGREE AV BLOCK MARKED LEFT AXIS DEVIATION [QRS AXIS < -30] RIGHT BUNDLE BRANCH BLOCK [120+ ms QRS DURATION, UPRIGHT V1, 40+ ms S IN I/aVL/V4/V5/V6] COMPARED TO ECG 07/18/2022 08:37:04 NO SIGNIFICANT CHANGES Electronically Signed On 07-28-2022 17:05:09 CDT by Chester Velez M.D.
--- NOTE | 2022-07-28 10:59 | ED.AMS ---
HPI - Altered Mental Status General Chief Complaint: Fall Stated Complaint: glf with head injury, altered LOC Time Seen by Provider: 07/28/22 10:52 History of Present Illness HPI narrative: Pt had ground level fall around 0200 today. Pt did not lose consciousness at that time. This morning patient was described as lethargic and slow to respond. Pt has PICC line for UTI. Pt denies SHIELDS or fever. Related Data Home Medications Medication Instructions Recorded Confirmed asenapine maleate 5 mg sublingual 5 mg sublingual Q12H 01/04/20 07/18/22 tablet (Saphris) escitalopram oxalate 5 mg tablet 5 mg PO DAILY 08/21/21 07/18/22 rosuvastatin 20 mg tablet 20 mg PO QHS 08/21/21 07/18/22 trazodone 100 mg tablet 300 mg PO HS 08/21/21 07/18/22 glucagon HCl 1 mg solution for 1 mg subcut Q20M PRN Hypoglycemia 02/13/22 07/18/22 injection (Glucagon (HCl) Emergency Kit) sodium chloride 0.65 % nasal spray 1 spray intranasal BID PRN Dry 02/13/22 07/18/22 aerosol (Saline Mist) Nasal Passages insulin glargine 100 unit/mL (3 9 unit subcut QHS 05/17/22 07/18/22 mL) subcutaneous pen (Lantus Solostar U-100 Insulin) amlodipine 5 mg tablet 10 mg PO DAILY 07/18/22 07/18/22 ferrous sulfate 325 mg (65 mg 325 mg PO DAILY 07/18/22 07/18/22 iron) tablet (FeroSul) furosemide 40 mg tablet 40 mg PO DAILY 07/18/22 07/18/22 gabapentin 600 mg tablet 600 mg PO TID 07/18/22 07/18/22 Allergies Allergy/AdvReac Type Severity Reaction Status Date / Time alendronate sodium Allergy Unknown Unknown Verified 07/18/22 17:02 amantadine Allergy Unknown Unknown Verified 07/18/22 17:02 benztropine Allergy Unknown Unknown Verified 07/18/22 17:02 chlorpromazine Allergy Unknown Unknown Verified 07/18/22 17:02 levofloxacin Allergy Unknown Unknown Verified 07/18/22 17:02 Macrolide Antibiotics Allergy Unknown UNKNOWN Verified 07/18/22 17:02 REACTION mirtazapine Allergy Unknown Unknown Verified 07/18/22 17:02 Quinolones Allergy Unknown Unknown Verified 07/18/22 17:02 topiramate Allergy Unknown Unknown Verified 07/18/22 17:02 Review of Systems Review of Systems: All systems reviewed & are unremarkable except as noted in HPI and below PMFSH Past Medical History Medical History (Updated 07/28/22 @ 13:53 by Deyvi Khan III, DO) Anemia Anxiety Aortic stenosis Mild on echo May 2021, moderate by echo 11/2019 to Arthritis Asthma Bipolar disorder Chronic diastolic CHF (congestive heart failure) Chronic kidney disease, stage III (moderate) Managed by Dr. Aquino COPD (chronic obstructive pulmonary disease) PFTs 06/28/2021: Moderate obstructive abnormality, moderate decreased diffusion capacity CVA (cerebrovascular accident) (~12/2019) Depression Diabetes mellitus Diabetic peripheral neuropathy Diastolic dysfunction Echocardiogram 05/2021: EF 65-70%, grade 1 diastolic dysfunction, E/E elevated, global longitudinal strain mildly abnormal, moderate left atrial enlargement, moderate aortic valve sclerosis, mild aortic valve stenosis with peak velocity 239, mean gradient 14, aortic valve area 1.7 to, mild aortic valve regurgitation, GERD (gastroesophageal reflux disease) HLD (hyperlipidemia) Hypertension Hypothyroidism IBS (irritable bowel syndrome) 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 Moreno History of partial hysterectomy History of thyroidectomy Hx of section Hx of cholecystectomy Hx of tonsillectomy Status post cataract extraction of both eyes with insertion of intraocular lens Family History Family History Sibling Multiple sclerosis Father D
[2022-07-28 11:07] LABS: Basophils Absolute Auto 0.1 K/mm3 (0.0-0.1); Basophils Percent Auto 1.1 % (0.2-1.2); Eosinophils Absolute Auto 0.2 K/mm3 (0-0.3); Eosinophils Percent Auto 4.5 % (0-4.4); Hematocrit 26.3 % (37.0-47.0); Hemoglobin 8.3 g/dL (12.0-15.0); Immature Granulocyte Absolute 0.02 K/mm3 (0.00-0.031); Immature Granulocyte Percent A 0.4 % (0-0.5); Lymphocytes Absolute Auto 1.44 K/mm3 (0.9-3.2); Lymphocytes Percent Auto 30.7 % (18.3-44.2); Mean Corpuscular HGB Conc 31.6 g/dl (32-36); Mean Corpuscular Hemoglobin 30.5 pg (26-34); Mean Corpuscular Volume 96.7 fl (80-100); Mean Platelet Volume 10.5 fl (7.4-10.4); Monocytes Absolute Auto 0.3 K/mm3 (0.1-0.6); Monocytes Percent Auto 5.5 % (2.6-8.5); Neutrophils Absolute Auto 2.7 K/mm3 (1.3-6.7); Neutrophils Percent Auto 57.8 % (45.5-73.1); Platelet Count Result 106 k/mm3 (150-375); Red Blood Count 2.72 M/mm3 (4.2-5.4); Red Cell Distribution Width 15.3 % (11.5-14.5); White Blood Count 4.7 K/mm3 (4.5-10.0)
[2022-07-28 11:16] LABS: Alanine Aminotransferase 170 U/L (6-35); Albumin Level 4.1 g/dL (3.5-5.1); Alkaline Phosphatase 511 U/L (38-126); Anion Gap 15 mmol/L (8-16); Aspartate Amino Transferase 328 U/L (14-36); Bilirubin,Total 0.4 mg/dL (0.2-1.3); Blood Urea Nitrogen 38 mg/dL (7-17); Calcium 9.2 mg/dL (8.4-10.2); Carbon Dioxide 25 mmol/L (22-30); Chloride 102 mmol/L (98-107); Estimated CRCL calculation 18 ml/min; Estimated Glomerular Filt Rate 22; Glucose 101 mg/dL (65-110); Potassium 4.2 mmol/L (3.4-5.0); Sodium 142 mmol/L (137-145)
[2022-07-28 11:17] LABS: INR 1.3; Lactic Acid Reflex 0.9 mmol/L (0.7-2.0); Prothrombin Time 15.3 Seconds (11.1-14.7)
[2022-07-28 11:18] LABS: Partial Thromboplastin Time 37.2 SECONDS (22.3-36.8)
[2022-07-28 11:28] VITALS: BP 122/52; PULSE 54; RESP 16; TEMP 37.1; O2SAT 96
[2022-07-28 11:28] LABS: Troponin I 0.014 ng/mL (0.000-0.034)
[2022-07-28 13:03] VITALS: BP 116/68; PULSE 55; RESP 16; O2SAT 97
[2022-07-28 13:19] LABS: Appearance Urine Clear (Clear); Bilirubin Urine Negative (Negative); Blood Urine Negative (Negative); Color Urine Yellow (Yellow); Glucose Urine UA Negative (Negative); Ketones Urine Negative (Negative); Leukocyte Esterase Ur Negative LEU/UL (Negative); Nitrate Urine Negative (Negative); Protein Urine 1+ mg/dL (Negative); Urobilinogen Urine 0.2 mg/dL (<2.0)
[2022-07-28 13:20] LABS: Bacteria Urine Trace /hpf; RBC Urine 0-2 /hpf (0-2); WBC Urine 0-3 /hpf
[2022-07-28 13:24] LABS: Add Urine Microscopic? YES
[2022-07-28 14:15] VITALS: BP 122/41; PULSE 53; RESP 16; O2SAT 100
== END 2022-07-28 14:17 | disposition home or self-care (01) ==
PROVIDERS: Emergency Provider Emergency Medicine; PCP Internal Medicine
DX: R41.0 Disorientation, unspecified (principal); E03.9 Hypothyroidism, unspecified; E11.22 Type 2 diabetes mellitus with diabetic chronic kidney disease; I13.0 Hypertensive heart and chronic kidney disease with heart failure and stage 1 through stage 4 chronic kidney disease, or unspecified chronic kidney disease; N18.30 Chronic kidney disease, stage 3 unspecified; I50.32 Chronic diastolic (congestive) heart failure; I35.0 Nonrheumatic aortic (valve) stenosis; J44.9 Chronic obstructive pulmonary disease, unspecified; E11.42 Type 2 diabetes mellitus with diabetic polyneuropathy; D64.9 Anemia, unspecified; E78.5 Hyperlipidemia, unspecified; K21.9 Gastro-esophageal reflux disease without esophagitis; K58.9 Irritable bowel syndrome, unspecified; M81.0 Age-related osteoporosis without current pathological fracture; Z86.73 Personal history of transient ischemic attack (TIA), and cerebral infarction without residual deficits; Z87.19 Personal history of other diseases of the digestive system; Z87.440 Personal history of urinary (tract) infections; F41.9 Anxiety disorder, unspecified; F31.9 Bipolar disorder, unspecified; Z79.4 Long term (current) use of insulin
CPT/HCPCS: 36415; 70450; 71045; 80053; 81001; 83605; 84443; 84484; 85025; 85610; 85730; 87040; 93005; 99284

== ENCOUNTER 2022-07-29 17:45 | Inpatient (IN) | payer MEDICARE, MEDICAID, SELFPAY ==
[2022-07-29] VITALS (8 sets, daily range): BP systolic 95–156; BP diastolic 49–60; PULSE 49–57; RESP 10–20; TEMP 36.1; O2SAT 95–100; BMI 31.1
--- NOTE | ~2022-07-29 | XR_ITS ---
EXAMINATION: XR chest PICC line Exam Date/Time: 07/29/2022 22:24 CDT HISTORY: pre existing picc line verifying placement Comparison: 07/28/2022. RESULT: Lines, tubes, and devices: Right upper extremity PICC terminating in the distal SVC. Lungs and pleura: Decreased cephalization. Improving reticular opacities. Senescent change. Cardiomediastinal silhouette: Stable. Other: No acute osseous or upper abdominal finding. IMPRESSION: Right upper extremity PICC, in good position. Improving cephalization and interstitial edema. Reviewed, dictated and finalized at location K. IMPRESSION: Right upper extremity PICC, in good position. Improving cephalization and inter stitial edema.
--- NOTE | ~2022-07-29 | CT_ITS ---
EXAMINATION: CT brain wo con DATE: 07/29/2022 18:12 INDICATION: trauma . TECHNIQUE: Computed tomography (CT) of the head was performed without intravenous contrast. The mA wa s adjusted according to patient size. Iterative reconstruction technique was employed. The dose-lengt h product was 605.33 mGy-cm. COMPARISON: 07/28/2022 FINDINGS: No acute intracranial hemorrhage or extra-axial fluid collection. No hydrocephalus, mass, or herniation. No acute ischemic infarct. Unremarkable dural venous sinus attenuation. No acute osseous abnormality. Mild mucosal thickening in the sphenoid sinuses, otherwise the aerated spaces are clear. Old left insular and left basal ganglia infarct. Mild atrophy and chronic white matter change. Athero sclerotic intrarenal calcification. Bilateral lens replacements. IMPRESSION: No acute intracranial process. Reviewed, dictated and finalized at location K.
--- NOTE | 2022-07-29 17:58 | ECG_ITS ---
Measurements Intervals [place] Rate: 52 P: -53 NC: 170 QRS: -61 QRSD: 124 T: 12 QT: 501 QTc: 467 Interpretive Statements SINUS BRADYCARDIA MARKED LEFT AXIS DEVIATION [QRS AXIS < -30] POSSIBLE RIGHT VENTRICULAR CONDUCTION DELAY [RSR (QR) IN V1/V2] JUNCTIONAL ST DEPRESSION, CONSIDER NORMAL VARIANT [0.1+ mV JUNCTIONAL DEPRESSION] COMPARED TO ECG 07/28/2022 11:07:56 NO SIGNIFICANT CHANGE Electronically Signed On 07-29-2022 20:33:56 CDT by Leonila Parker M.D.
--- NOTE | 2022-07-29 17:59 | ED.FALL ---
HPI - Fall General Chief Complaint: Fall Stated Complaint: GLF with head injury Time Seen by Provider: 07/29/22 17:48 History of Present Illness HPI Narrative: Pt was seen in ED yesterday for mental status change and falls and had work up and improved while in ER. Pt has fallen several times in NH since release from ER and last time tried to get up from commode and fell forward and landed on head. Pt has no specific complaints. Son says she refuses to get help and keeps trying to get up on her own and falls. Related Data Home Medications Medication Instructions Recorded Confirmed asenapine maleate 5 mg sublingual 5 mg sublingual Q12H 01/04/20 07/18/22 tablet (Saphris) escitalopram oxalate 5 mg tablet 5 mg PO DAILY 08/21/21 07/18/22 rosuvastatin 20 mg tablet 20 mg PO QHS 08/21/21 07/18/22 trazodone 100 mg tablet 300 mg PO HS 08/21/21 07/18/22 glucagon HCl 1 mg solution for 1 mg subcut Q20M PRN Hypoglycemia 02/13/22 07/18/22 injection (Glucagon (HCl) Emergency Kit) sodium chloride 0.65 % nasal spray 1 spray intranasal BID PRN Dry 02/13/22 07/18/22 aerosol (Saline Mist) Nasal Passages insulin glargine 100 unit/mL (3 9 unit subcut QHS 05/17/22 07/18/22 mL) subcutaneous pen (Lantus Solostar U-100 Insulin) amlodipine 5 mg tablet 10 mg PO DAILY 07/18/22 07/18/22 ferrous sulfate 325 mg (65 mg 325 mg PO DAILY 07/18/22 07/18/22 iron) tablet (FeroSul) furosemide 40 mg tablet 40 mg PO DAILY 07/18/22 07/18/22 gabapentin 600 mg tablet 600 mg PO TID 07/18/22 07/18/22 Allergies Allergy/AdvReac Type Severity Reaction Status Date / Time alendronate sodium Allergy Unknown Unknown Verified 07/18/22 17:02 amantadine Allergy Unknown Unknown Verified 07/18/22 17:02 benztropine Allergy Unknown Unknown Verified 07/18/22 17:02 chlorpromazine Allergy Unknown Unknown Verified 07/18/22 17:02 levofloxacin Allergy Unknown Unknown Verified 07/18/22 17:02 Macrolide Antibiotics Allergy Unknown UNKNOWN Verified 07/18/22 17:02 REACTION mirtazapine Allergy Unknown Unknown Verified 07/18/22 17:02 Quinolones Allergy Unknown Unknown Verified 07/18/22 17:02 topiramate Allergy Unknown Unknown Verified 07/18/22 17:02 Review of Systems Review of Systems: All systems reviewed & are unremarkable except as noted in HPI and below PMFSH Past Medical History Medical History (Updated 07/29/22 @ 19:42 by Deyvi Khan III, DO) Anemia Anxiety Aortic stenosis Mild on echo May 2021, moderate by echo 11/2019 to Arthritis Asthma Bipolar disorder Chronic diastolic CHF (congestive heart failure) Chronic kidney disease, stage III (moderate) Managed by Dr. Aquino COPD (chronic obstructive pulmonary disease) PFTs 06/28/2021: Moderate obstructive abnormality, moderate decreased diffusion capacity CVA (cerebrovascular accident) (~12/2019) Depression Diabetes mellitus Diabetic peripheral neuropathy Diastolic dysfunction Echocardiogram 05/2021: EF 65-70%, grade 1 diastolic dysfunction, E/E elevated, global longitudinal strain mildly abnormal, moderate left atrial enlargement, moderate aortic valve sclerosis, mild aortic valve stenosis with peak velocity 239, mean gradient 14, aortic valve area 1.7 to, mild aortic valve regurgitation, GERD (gastroesophageal reflux disease) HLD (hyperlipidemia) Hypertension Hypothyroidism IBS (irritable bowel syndrome) 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 Moreno History of partial hysterectomy History of thyroidectomy Hx of section Hx of cholecystectomy Hx of tonsillectomy Status post cataract extraction of both eyes with insertion of intraocular lens Family History
--- NOTE | 2022-07-29 18:10 | PC.NURSE ---
pt to CT
[2022-07-29 18:34] LABS: Basophils Absolute Auto 0.1 K/mm3 (0.0-0.1); Eosinophils Absolute Auto 0.3 K/mm3 (0-0.3); Hematocrit 26.7 % (37.0-47.0); Hemoglobin 8.3 g/dL (12.0-15.0); Immature Granulocyte Absolute 0.03 K/mm3 (0.00-0.031); Immature Granulocyte Percent A 0.5 % (0-0.5); Lymphocytes Percent Auto 25.9 % (18.3-44.2); Mean Corpuscular HGB Conc 31.1 g/dl (32-36); Mean Corpuscular Hemoglobin 30.4 pg (26-34); Mean Corpuscular Volume 97.8 fl (80-100); Mean Platelet Volume 11.1 fl (7.4-10.4); Monocytes Absolute Auto 0.3 K/mm3 (0.1-0.6); Monocytes Percent Auto 4.5 % (2.6-8.5); Neutrophils Absolute Auto 3.7 K/mm3 (1.3-6.7); Neutrophils Percent Auto 63.1 % (45.5-73.1); Platelet Count Result 128 k/mm3 (150-375); Red Blood Count 2.73 M/mm3 (4.2-5.4); Red Cell Distribution Width 15.4 % (11.5-14.5); White Blood Count 5.8 K/mm3 (4.5-10.0)
[2022-07-29 18:45] LABS: INR 1.2; Prothrombin Time 15.1 Seconds (11.1-14.7)
[2022-07-29 18:46] LABS: Partial Thromboplastin Time 39.3 SECONDS (22.3-36.8)
[2022-07-29 19:01] LABS: Alanine Aminotransferase 118 U/L (6-35); Albumin Level 4.3 g/dL (3.5-5.1); Alkaline Phosphatase 452 U/L (38-126); Anion Gap 14 mmol/L (8-16); Aspartate Amino Transferase 188 U/L (14-36); Bilirubin,Total 0.4 mg/dL (0.2-1.3); Blood Urea Nitrogen 39 mg/dL (7-17); Calcium 9.4 mg/dL (8.4-10.2); Carbon Dioxide 26 mmol/L (22-30); Chloride 101 mmol/L (98-107); Estimated Glomerular Filt Rate 22; Glucose 82 mg/dL (65-110); Potassium 4.3 mmol/L (3.4-5.0); Sodium 141 mmol/L (137-145)
--- NOTE | 2022-07-29 19:44 | PM.IMHP ---
H&P: HPI History of Present Illness Date/Time: 07/29/22 19:44 Chief Complaint: Fall Narrative: This is a 76-year-old female with past medical history significant for hepatic cirrhosis, type 2 diabetes mellitus, COPD, stroke, chronic diastolic heart failure, chronic kidney disease, gastroesophageal reflux disease, hypertension, hypo thyroidism, aortic stenosis, Bipolar disorder. patient resides at assisted living facility she was brought today for evaluation after she had a fall she has been falling recurrently. patient has a PICC line and she has been getting Invanz, This is for ESBL E. coli in urine. At the time of my visit patient was obtunded history taking was limited. patient had been seen the day before for same problem had a fall with nonrevealing workup. Preliminary workup was significant for: Chest xr: IMPRESSION: 1. New perihilar predominant interstitial opacities most likely related to pulmonary edema although differential includes pneumonia. 2. Mild cardiomegaly. CT head: IMPRESSION:? No acute intracranial process. Review of Systems Review of Systems: ROS unobtainable: Yes unobtainable due to mental status ( obtunded) [facility] Past Medical History Medical History (Updated 07/30/22 @ 01:30 by Jose Norris MD) Anemia Anxiety Aortic stenosis Mild on echo May 2021, moderate by echo 11/2019 to Arthritis Asthma Bipolar disorder Chronic diastolic CHF (congestive heart failure) Chronic kidney disease, stage III (moderate) Managed by Dr. Aquino COPD (chronic obstructive pulmonary disease) PFTs 06/28/2021: Moderate obstructive abnormality, moderate decreased diffusion capacity CVA (cerebrovascular accident) (~12/2019) Depression Diabetes mellitus Diabetic peripheral neuropathy Diastolic dysfunction Echocardiogram 05/2021: EF 65-70%, grade 1 diastolic dysfunction, E/E elevated, global longitudinal strain mildly abnormal, moderate left atrial enlargement, moderate aortic valve sclerosis, mild aortic valve stenosis with peak velocity 239, mean gradient 14, aortic valve area 1.7 to, mild aortic valve regurgitation, GERD (gastroesophageal reflux disease) HLD (hyperlipidemia) Hypertension Hypothyroidism IBS (irritable bowel syndrome) 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 Moreno History of partial hysterectomy History of thyroidectomy Hx of section Hx of cholecystectomy Hx of tonsillectomy Status post cataract extraction of both eyes with insertion of intraocular lens Family History Family History Sibling Multiple sclerosis Father Acute myocardial infarction, Onset Age: 79 Cerebrovascular accident, Onset Age: 79 Mother Dementia Sibling Acute myocardial infarction, Onset Age: 65 Son Diabetes mellitus Other Depression Family history of arthritis Family history of elevated blood lipids Family history of thyroid disease Hypertension Social History Social History (Updated 07/18/22 @ 15:40 by Cristian Hillman MD) Social History: She is and lives alone. Her when she was 35. She had a common-law who she was with for over 25 years but he in 2019. She has 3 sons 1 of which has diabetes. Former smoker. She denies any history of heavy alcohol use. Code status: DNR/DNI in past. Healthcare power of contracts attorney: Gavino Sigala (son) Smoking packs per day: 1.5 Smoking cigarettes per day: 30.0 Years smoked: 25 Smoking pack-years: 37.50 Smoking status: Former smoker Tobacco type: cigarettes Second hand to
--- NOTE | 2022-07-29 21:38 | PC.NURSE ---
Notified nurse that pt will be transported.
[2022-07-29 22:12] LABS: SARS-CoV-2 RNA PCR Negative
--- NOTE | 2022-07-29 22:57 | ADMGEN ---
This patient, Nisha Sigala, was admitted to [facility] Room 306-02. Patient/family oriented to hospital policies and general routines including ID bracelet, bed and alarms, visiting hours, pain management, procedures, bathroom and other care routines, personal items, smoking policy, room service/diet, and visiting hours. Information on how to activate the Rapid Response Team has been discussed. Patient/Family are encouraged to report perceived risks to care and to ask questions if they do not understand what they are told or what they should do.
[2022-07-30] VITALS (7 sets, daily range): BP systolic 121–148; BP diastolic 44–46; PULSE 51–68; RESP 12–20; TEMP 36.1–36.8; O2SAT 93–100
[2022-07-30 01:40] LABS: Ammonia 34 umol/L (9-30)
[2022-07-30 01:50] LABS: NT Pro B Type Natriuretic Pept 439 pg/mL (5-100)
[2022-07-30] MEDS: LEVOTHYROXINE SODIUM 125 MCG TABLET PO (05:33)
[2022-07-30] MEDS: CENTRAL LINE FLUSH 10 ML IV PUSH ×2 (05:34→15:40)
[2022-07-30 08:24] LABS: Glucose Point of Care 130 mg/dl (65-105)
[2022-07-30] MEDS: UMECLIDINIUM/VILANTEROL 62.5-25 MCG ELLIPTA 1 PUFF INHALATION (08:25)
[2022-07-30 09:03] LABS: Hematocrit 29.5 % (37.0-47.0); Hemoglobin 9.1 g/dL (12.0-15.0); Mean Corpuscular HGB Conc 30.8 g/dl (32-36); Mean Corpuscular Hemoglobin 30.4 pg (26-34); Mean Corpuscular Volume 98.7 fl (80-100); Mean Platelet Volume 9.8 fl (7.4-10.4); Platelet Count Result 114 k/mm3 (150-375); Red Blood Count 2.99 M/mm3 (4.2-5.4)
[2022-07-30 09:12] LABS: Alanine Aminotransferase 102 U/L (6-35); Albumin Level 4.5 g/dL (3.5-5.1); Alkaline Phosphatase 520 U/L (38-126); Anion Gap 8 mmol/L (8-16); Aspartate Amino Transferase 153 U/L (14-36); Bilirubin,Total 0.4 mg/dL (0.2-1.3); Blood Urea Nitrogen 31 mg/dL (7-17); Calcium 9.4 mg/dL (8.4-10.2); Carbon Dioxide 27 mmol/L (22-30); Chloride 102 mmol/L (98-107); Estimated Glomerular Filt Rate 22; Glucose 190 mg/dL (65-110); Potassium 4.4 mmol/L (3.4-5.0); Sodium 137 mmol/L (137-145)
[2022-07-30] MEDS: INSULIN ASPART (*BKC) 100 UNITS/ML 7 UNITS SUB-Q ×2 (09:15→12:00)
[2022-07-30] MEDS: PROPRANOLOL HCL 10 MG TABLET PO ×2 (09:16→20:45)
[2022-07-30] MEDS: lamoTRIgine 50 MG TABLET PO ×2 (09:17→20:46)
[2022-07-30] MEDS: lamoTRIgine 100 MG TABLET PO ×2 (09:17→20:46)
[2022-07-30] MEDS: FERROUS SULFATE 324 MG TABLET PO (09:17)
[2022-07-30] MEDS: amLODIPine BESYLATE 5 MG TABLET 10 MG PO (09:17)
[2022-07-30] MEDS: PANTOPRAZOLE 40 MG TABLET PO (09:17)
[2022-07-30] MEDS: rifAXIMin 550 MG TABLET PO ×2 (09:17→20:46)
[2022-07-30] MEDS: LACTULOSE 20 GM/30 ML UDC PO ×3 (10:07→17:13)
[2022-07-30 11:44] LABS: Glucose Point of Care 211 mg/dl (65-105)
[2022-07-30] MEDS: ERTAPENEM 1 GM/NS 50 ML 1 GM/50 ML BAG IVPB (12:00)
--- NOTE | 2022-07-30 15:48 | PHAR ---
HOME MEDICATION VERIFIED BY PHARMACY: ASENAPINE 5MG SL TABLETS
--- NOTE | 2022-07-30 16:18 | PM.IMPN ---
Progress Note: A&P Assessment and Plan (1) Frequent falls: Code(s): R29.6 - Repeated falls Status: Acute Assessment and Plan: fall at nursing facility fortunately no injuries sustained head CT with no acute finding appreciate PT/OT eval implement fall precautions (2) Unsteady gait: Code(s): R26.81 - Unsteadiness on feet Status: Acute Assessment and Plan: Plan as above (3) Hepatic encephalopathy: Code(s): K72.90 - Hepatic failure, unspecified without coma Status: Chronic Assessment and Plan: Ammonia level is elevated Recently started on xifaxan at last admission, continue Restart lactulose. Titrate to achieve 1-2 BM/day Consider GI consult if no improvement (4) UTI due to extended-spectrum beta lactamase (ESBL) producing Escherichia coli: Code(s): N39.0 - Urinary tract infection, site not specified; B96.29 - Other Escherichia coli [E. coli] as the cause of diseases classified elsewhere; Z16.12 - Extended spectrum beta lactamase (ESBL) resistance Status: Acute Assessment and Plan: recent admission for UTI from 07/18/22-07/22/22. Urine culture with growth of ESBL started on ertapenem 1 g Q 24 hours on 07/20/2022. Continue until 07/31/2022 via PICC line UA on presentation improved with no evidence of UTI (5) Cirrhosis of liver with ascites: Qualifiers: Hepatic cirrhosis type: unspecified hepatic cirrhosis Qualified Code(s): K74.60 - Unspecified cirrhosis of liver; R18.8 - Other ascites Code(s): K74.60 - Unspecified cirrhosis of liver; R18.8 - Other ascites Status: Chronic Assessment and Plan: Secondary to ZIEGLER Follows with GI Mild TCP, INR 1.2, LFTs elevated with normal total bili Continue propranolol and furosemide (6) COPD (chronic obstructive pulmonary disease): Qualifiers: COPD type: unspecified COPD Qualified Code(s): J44.9 - Chronic obstructive pulmonary disease, unspecified Code(s): J44.9 - Chronic obstructive pulmonary disease, unspecified Status: Chronic Assessment and Plan: not in acute exacerbation continue maintenance inhalers (7) Chronic kidney disease, stage III (moderate): Qualifiers: Chronic kidney disease stage 3 subtype: stage 3b (GFR 30-44) Qualified Code(s): N18.32 - Chronic kidney disease, stage 3b Code(s): N18.3 - Chronic kidney disease, stage 3 (moderate) Status: Chronic Assessment and Plan: renal function is consistent with baseline cautious continued use of furosemide monitor BMP (8) Diabetes mellitus: Code(s): E11.9 - Type 2 diabetes mellitus without complications Status: Acute Assessment and Plan: last A1c was 5.5 blood sugars slightly elevated this admission 190-210 monitor glucose closely. Consider addition of sliding scale insulin if remaining elevated Subjective Date/time seen: 07/30/22 16:18 Interval history: Date of service: 07/30/2022 Nisha Sigala is a 76-year-old female with a history of aortic stenosis, COPD, asthma, CVA, CHF, CKD, diabetes mellitus, hypertension, hypothyroidism, liver cirrhosis secondary to ZIEGLER, and recent ESBL UTI on IV ertapenem who is seen in follow-up for altered mental status and falls. She states she is doing okay today. Her main complaint is feeling tired. She said she has been feeling off balance when she is walking with her walker. She denies abdominal pain or bloating. She tells me that she has had 3 bowel movements today, however per nursing staff she had 1 soft bowel movement. She denies shortness of breath, cough, or chest pain. Review of Systems Review of Systems: All systems reviewed & are unremarkable except as noted in HPI and below Exam Narrative: General: Well-nourished, well-appearing 76-year-old female, sitting up in bed , comfortable, NARD Neuro: awake, al
[2022-07-30 16:59] LABS: Glucose Point of Care 124 mg/dl (65-105)
[2022-07-30] MEDS: ROSUVASTATIN 10 MG TABLET 20 MG PO (20:46)
[2022-07-30] MEDS: Asenapine Maleate [Saphris] 5 mg tablet, sublingual 1 EACH SUBLINGUAL (20:47)
[2022-07-30 21:07] LABS: Glucose Point of Care 144 mg/dl (65-105)
[2022-07-31] MEDS: LEVOTHYROXINE SODIUM 125 MCG TABLET PO (05:45)
[2022-07-31] MEDS: CENTRAL LINE FLUSH 10 ML IV PUSH (05:45)
[2022-07-31 05:47] LABS: Hematocrit 26.6 % (37.0-47.0); Hemoglobin 8.2 g/dL (12.0-15.0); Mean Corpuscular HGB Conc 30.8 g/dl (32-36); Mean Corpuscular Hemoglobin 30.7 pg (26-34); Mean Corpuscular Volume 99.6 fl (80-100); Mean Platelet Volume 10.2 fl (7.4-10.4); Platelet Count Result 117 k/mm3 (150-375); Red Blood Count 2.67 M/mm3 (4.2-5.4); Red Cell Distribution Width 15.1 % (11.5-14.5); White Blood Count 6.8 K/mm3 (4.5-10.0)
[2022-07-31 05:52] VITALS: BP 137/51; PULSE 57; RESP 12; TEMP 36.3; O2SAT 98
[2022-07-31 05:58] LABS: INR 1.2; Prothrombin Time 14.9 Seconds (11.1-14.7)
[2022-07-31 06:07] LABS: Alanine Aminotransferase 116 U/L (6-35); Alkaline Phosphatase 597 U/L (38-126); Anion Gap 13 mmol/L (8-16); Aspartate Amino Transferase 192 U/L (14-36); Bilirubin,Total 0.3 mg/dL (0.2-1.3); Blood Urea Nitrogen 37 mg/dL (7-17); Carbon Dioxide 23 mmol/L (22-30); Chloride 104 mmol/L (98-107); Estimated Glomerular Filt Rate 20; Glucose 107 mg/dL (65-110); Potassium 4.6 mmol/L (3.4-5.0); Sodium 140 mmol/L (137-145)
[2022-07-31 08:04] LABS: Glucose Point of Care 123 mg/dl (65-105)
[2022-07-31] MEDS: UMECLIDINIUM/VILANTEROL 62.5-25 MCG ELLIPTA 1 PUFF INHALATION (08:26)
[2022-07-31] MEDS: INSULIN ASPART (*BKC) 100 UNITS/ML 7 UNITS SUB-Q ×2 (09:27→11:51)
[2022-07-31] MEDS: amLODIPine BESYLATE 5 MG TABLET 10 MG PO (09:28)
[2022-07-31] MEDS: LACTULOSE 20 GM/30 ML UDC PO (09:28)
[2022-07-31 09:29] VITALS: PULSE 60
[2022-07-31] MEDS: FERROUS SULFATE 324 MG TABLET PO (09:29)
[2022-07-31] MEDS: PROPRANOLOL HCL 10 MG TABLET PO (09:29)
[2022-07-31] MEDS: lamoTRIgine 100 MG TABLET PO (09:29)
[2022-07-31] MEDS: PANTOPRAZOLE 40 MG TABLET PO (09:29)
[2022-07-31] MEDS: lamoTRIgine 50 MG TABLET PO (09:31)
[2022-07-31] MEDS: Asenapine Maleate [Saphris] 5 mg tablet, sublingual 1 EACH SUBLINGUAL (09:31)
--- NOTE | 2022-07-31 11:45 | P.DS_ITS ---
DS: Admitting Diagnosis Discharge Date 07/31/2022 Admitting Diagnosis falls DS: Discharge Diagnosis Discharge Diagnosis (1) Frequent falls: Code(s): R29.6 - Repeated falls Status: Acute Assessment and Plan: Multiple falls at nursing facility * fortunately no injuries sustained * head CT with no acute finding * participated in PT/OT during admit * fall precautions implemented * will continue with therapy at SNF (2) Unsteady gait: Code(s): R26.81 - Unsteadiness on feet Status: Acute Assessment and Plan: Plan as above (3) Hepatic encephalopathy: Code(s): K72.90 - Hepatic failure, unspecified without coma Status: Chronic Assessment and Plan: Showed with mild alteration mental status on admission. Issue of hepatic encephalopathy addressed at last hospitalization 1 week prior. Ammonia level mildly elevated * Recently started on xifaxan at last admission for 14 day course which was continued * Lactulose restarted. Patient having bowel movements. Continue with 30 mils t.i.d. and titrate as needed to achieve 1-2 bowel movements per day * Follow-up with snowsport instructor as an outpatient (4) UTI due to extended-spectrum beta lactamase (ESBL) producing Escherichia coli: Code(s): N39.0 - Urinary tract infection, site not specified; B96.29 - Other Escherichia coli [E. coli] as the cause of diseases classified elsewhere; Z16.12 - Extended spectrum beta lactamase (ESBL) resistance Status: Acute Assessment and Plan: recent admission for UTI from 07/18/22-07/22/22. * Urine culture on 07/18 with growth of ESBL * started on ertapenem 1 g Q 24 hours on 07/20/2022. Completed this course on 07/31/2022 and PICC line was discontinued prior to discharge * UA on presentation 07/28 improved with no evidence of UTI (5) Cirrhosis of liver with ascites: Qualifiers: Hepatic cirrhosis type: unspecified hepatic cirrhosis Qualified Code(s): K74.60 - Unspecified cirrhosis of liver; R18.8 - Other ascites Code(s): K74.60 - Unspecified cirrhosis of liver; R18.8 - Other ascites Status: Chronic Assessment and Plan: Secondary to ZIEGLER * Follows with GI * Mild thrombocytopenia, LFTs elevated with normal total bili * Continue propranolol and furosemide (6) COPD (chronic obstructive pulmonary disease): Qualifiers: COPD type: unspecified COPD Qualified Code(s): J44.9 - Chronic obstructive pulmonary disease, unspecified Code(s): J44.9 - Chronic obstructive pulmonary disease, unspecified Status: Chronic Assessment and Plan: not in acute exacerbation * continue maintenance inhalers (7) Chronic kidney disease, stage III (moderate): Qualifiers: Chronic kidney disease stage 3 subtype: stage 3b (GFR 30-44) Qualified Code(s): N18.32 - Chronic kidney disease, stage 3b Code(s): N18.3 - Chronic kidney disease, stage 3 (moderate) Status: Chronic Assessment and Plan: renal function remained consistent with baseline * cautious continued use of furosemide * monitor BMP (8) Diabetes mellitus: Code(s): E11.9 - Type 2 diabetes mellitus without complications Status: Acute Assessment and Plan: last A1c was 5.5 * No need for further monitoring DS: Summary Hospital Course Hospital Course: date of service: 07/29/2022 date of discharge: 07/31/2022 Nisha Sigala is a 76-year-old female with a
--- NOTE | 2022-07-31 11:45 | PM.DS ---
DS: Admitting Diagnosis Discharge Date 07/31/2022 Admitting Diagnosis falls DS: Discharge Diagnosis Discharge Diagnosis (1) Frequent falls: Code(s): R29.6 - Repeated falls Status: Acute Assessment and Plan: Multiple falls at nursing facility fortunately no injuries sustained head CT with no acute finding participated in PT/OT during admit fall precautions implemented will continue with therapy at SNF (2) Unsteady gait: Code(s): R26.81 - Unsteadiness on feet Status: Acute Assessment and Plan: Plan as above (3) Hepatic encephalopathy: Code(s): K72.90 - Hepatic failure, unspecified without coma Status: Chronic Assessment and Plan: Showed with mild alteration mental status on admission. Issue of hepatic encephalopathy addressed at last hospitalization 1 week prior. Ammonia level mildly elevated Recently started on xifaxan at last admission for 14 day course which was continued Lactulose restarted. Patient having bowel movements. Continue with 30 mils t.i.d. and titrate as needed to achieve 1-2 bowel movements per day Follow-up with solution design engineer as an outpatient (4) UTI due to extended-spectrum beta lactamase (ESBL) producing Escherichia coli: Code(s): N39.0 - Urinary tract infection, site not specified; B96.29 - Other Escherichia coli [E. coli] as the cause of diseases classified elsewhere; Z16.12 - Extended spectrum beta lactamase (ESBL) resistance Status: Acute Assessment and Plan: recent admission for UTI from 07/18/22-07/22/22. Urine culture on 07/18 with growth of ESBL started on ertapenem 1 g Q 24 hours on 07/20/2022. Completed this course on 07/31/2022 and PICC line was discontinued prior to discharge UA on presentation 07/28 improved with no evidence of UTI (5) Cirrhosis of liver with ascites: Qualifiers: Hepatic cirrhosis type: unspecified hepatic cirrhosis Qualified Code(s): K74.60 - Unspecified cirrhosis of liver; R18.8 - Other ascites Code(s): K74.60 - Unspecified cirrhosis of liver; R18.8 - Other ascites Status: Chronic Assessment and Plan: Secondary to ZIEGLER Follows with GI Mild thrombocytopenia, LFTs elevated with normal total bili Continue propranolol and furosemide (6) COPD (chronic obstructive pulmonary disease): Qualifiers: COPD type: unspecified COPD Qualified Code(s): J44.9 - Chronic obstructive pulmonary disease, unspecified Code(s): J44.9 - Chronic obstructive pulmonary disease, unspecified Status: Chronic Assessment and Plan: not in acute exacerbation continue maintenance inhalers (7) Chronic kidney disease, stage III (moderate): Qualifiers: Chronic kidney disease stage 3 subtype: stage 3b (GFR 30-44) Qualified Code(s): N18.32 - Chronic kidney disease, stage 3b Code(s): N18.3 - Chronic kidney disease, stage 3 (moderate) Status: Chronic Assessment and Plan: renal function remained consistent with baseline cautious continued use of furosemide monitor BMP (8) Diabetes mellitus: Code(s): E11.9 - Type 2 diabetes mellitus without complications Status: Acute Assessment and Plan: last A1c was 5.5 No need for further monitoring DS: Summary Hospital Course Hospital Course: date of service: 07/29/2022 date of discharge: 07/31/2022 Nisha Sigala is a 76-year-old female with a history of aortic stenosis, COPD, asthma, CVA, CHF, CKD, diabetes mellitus, hypertension, hypothyroidism, liver cirrhosis secondary to ZIEGLER, and recent ESBL UTI on IV ertapenem? who presented to the emergency department on 07/29/2022 from the nursing facility due to fall with head injury. she was getting up from the commode when she fell forward and hit her head. She was evaluated in the ED 1 day prior again for a fall. on presentation to the ED, her vital signs were
[2022-07-31] MEDS: ERTAPENEM 1 GM/NS 50 ML 1 GM/50 ML BAG IVPB (12:03)
[2022-07-31 12:16] LABS: Glucose Point of Care 142 mg/dl (65-105)
[2022-07-31 12:50] LABS: EDCOVIDSCREEN Negative (Negative)
[2022-07-31] MEDS: NEOMYCIN/POLYMYXIN/BACITRACIN OINTMENT PACKET 1 PACKET (13:16)
[2022-07-31] MEDS: ACETAMINOPHEN 500 MG TABLET 1000 MG PO (14:01)
== END 2022-07-31 14:09 | DRG 92 ==
LOC: ANHED 19:42 → ANH3MEDSUR 21:21
PROVIDERS: Physician Assistant; Admitting Provider Internal Medicine; Emergency Provider Emergency Medicine; PCP Internal Medicine; Visit Provider Internal Medicine
DX: R29.6 Repeated falls (principal); I13.0 Hypertensive heart and chronic kidney disease with heart failure and stage 1 through stage 4 chronic kidney disease, or unspecified chronic kidney disease; I50.32 Chronic diastolic (congestive) heart failure; R18.8 Other ascites; R26.81 Unsteadiness on feet; K72.90 Hepatic failure, unspecified without coma; K74.60 Unspecified cirrhosis of liver; J44.9 Chronic obstructive pulmonary disease, unspecified; E11.22 Type 2 diabetes mellitus with diabetic chronic kidney disease; N18.32 Chronic kidney disease, stage 3b; E11.42 Type 2 diabetes mellitus with diabetic polyneuropathy; K75.81 Nonalcoholic steatohepatitis (NASH); Z87.440 Personal history of urinary (tract) infections; E89.0 Postprocedural hypothyroidism; Z98.42 Cataract extraction status, left eye; Z98.41 Cataract extraction status, right eye; Z96.1 Presence of intraocular lens; Z87.891 Personal history of nicotine dependence; F41.9 Anxiety disorder, unspecified; F31.9 Bipolar disorder, unspecified; D64.9 Anemia, unspecified; K58.9 Irritable bowel syndrome, unspecified; K21.9 Gastro-esophageal reflux disease without esophagitis; E78.5 Hyperlipidemia, unspecified; M19.90 Unspecified osteoarthritis, unspecified site; I35.0 Nonrheumatic aortic (valve) stenosis; Z20.822 Contact with and (suspected) exposure to COVID-19; Z79.4 Long term (current) use of insulin; Z86.73 Personal history of transient ischemic attack (TIA), and cerebral infarction without residual deficits; Z90.49 Acquired absence of other specified parts of digestive tract; Z90.710 Acquired absence of both cervix and uterus; S00.83XA Contusion of other part of head, initial encounter; W18.11XA Fall from or off toilet without subsequent striking against object, initial encounter; Z91.81 History of falling
CPT/HCPCS: 36415; 70450; 71045; 80048; 80053; 80076; 81001; 82140; 82948; 83605; 83880; 84443; 84484; 85025; 85027; 85610; 85730; 87040; 87426; 93005; 94640; 97116; 97161; 97166; 97530; 97535; 99284; 99285; A9270; C9803; J1335; J1815; U0003; U0005

== ENCOUNTER 2022-08-12 08:51 | Outpatient (RCR) | payer MEDICARE, MEDICAID, SELFPAY ==
[2022-08-12] VITALS (9 sets, daily range): BP systolic 123–151; BP diastolic 45–62; PULSE 52–66; RESP 16–19; TEMP 36.4–37; O2SAT 97–99
[2022-08-12 08:35] LABS: Hematocrit 18.9 % (37.0-47.0); Hemoglobin 5.8 g/dL (12.0-15.0)
[2022-08-12] MEDS: FUROSEMIDE INJ 40 MG/4 ML VIAL IV PUSH (15:41)
--- NOTE | 2022-08-12 16:12 | PC.NURSE ---
up to bathroom to urinate with assist
--- NOTE | 2022-08-12 17:54 | PC.NURSE ---
[id number] patient urinated on bed rubin and ate dinner tray
--- NOTE | 2022-08-12 18:06 | PC.NURSE ---
1805 patient assisted to bedpan to urinate.
--- NOTE | 2022-08-12 18:49 | PC.NURSE ---
1844 patient was discharged in stable condition. EMS transported patient back to [facility]. Report was given to nurse Jean at [facility] and patient was sent with her paper work and blood antibody card provided by [facility].
== END 2022-11-10 23:59 | disposition home or self-care (01) ==
LOC: ANHCPCTRAN 08:51
PROVIDERS: PCP Internal Medicine; Visit Provider Family Medicine
DX: D64.9 Anemia, unspecified (principal)
CPT/HCPCS: 36415; 36430; 85014; 85018; 86850; 86880; 86900; 86901; 86902; 86922; J1940; P9016

== ENCOUNTER 2022-09-01 12:06 | Inpatient (IN) | payer MEDICARE, MEDICAID, SELFPAY ==
[2022-09-01] VITALS (37 sets, daily range): BP systolic 96–139; BP diastolic 35–49; PULSE 43–56; RESP 6–25; TEMP 34.1–36.8; O2SAT 90–100
--- NOTE | ~2022-09-01 | US_ITS ---
EXAMINATION: US venous doppler [facility] DATE: 09/02/2022 11:15 INDICATION: Lower limb edema. TECHNIQUE: Grayscale ultrasound images without and with compression and Doppler ultrasound images of the bilateral lower extremity veins were obtained. COMPARISON: Ultrasound 03/12/2020 FINDINGS: The visualized portions of right common femoral vein, profunda (deep) femoral vein, femoral vein, pop liteal vein, peroneal veins, posterior tibial veins, and greater saphenous vein outflow are patent. The visualized portions of left common femoral vein, profunda femoral vein, femoral vein, popliteal v ein, peroneal veins, posterior tibial veins, and greater saphenous vein outflow are patent. IMPRESSION: 1. No deep venous thrombosis. Reviewed, dictated and finalized at location B.
--- NOTE | ~2022-09-01 | XR_ITS ---
EXAMINATION: XR chest 1V portable DATE: 09/01/2022 13:32 INDICATION: Chest pain. Shortness of breath. TECHNIQUE: A single frontal view of the chest was obtained on 2 radiographs. COMPARISON: Chest single view 07/29/2022, chest CT 12/09/2021 FINDINGS: There is a diffuse interstitial pattern in the lungs, consistent with mild pulmonary edema. No pleural effusion or pneumothorax. Cardiomegaly is noted. IMPRESSION: 1. Mild pulmonary edema. 2. Cardiomegaly. Reviewed, dictated and finalized at location B.
--- NOTE | ~2022-09-01 | XR_ITS ---
XR hip RT 2V w AP pelvis 09/02/2022 17:19 Indication: Right hip pain Procedure: AP pelvis and 2 views right hip Comparison: 05/20/2022 Findings: Pelvic rings are intact. There is mild osteoarthritis of the hips. There is lower lumbar sp ondylosis. Sacral foramen are symmetric. No fracture or traumatic malalignment. No focal soft tissue abnormality. No foreign bodies. Impression: 1: No acute bone or joint abnormality. 2: Mild osteoarthritis of the hips. Reviewed, dictated and finalized at location A. Impression: 1: No acute bone or joint abnormality. 2: Mild osteoarthritis of the hips.
--- NOTE | ~2022-09-01 | XR_ITS ---
EXAMINATION: XR chest 1V portable DATE: 09/04/2022 06:10 INDICATION: Respiratory insufficiency. TECHNIQUE: A single frontal view of the chest was obtained. COMPARISON: Chest single view 09/01/2022 FINDINGS: There is a diffuse interstitial pattern in the lungs, consistent with mild pulmonary edema. No pleural effusion or pneumothorax. Cardiomegaly is noted. IMPRESSION: 1. Mild pulmonary edema. 2. Cardiomegaly. Reviewed, dictated and finalized at location B.
--- NOTE | ~2022-09-01 | US_ITS ---
EXAMINATION: US abdomen complete DATE: 09/02/2022 11:15 INDICATION: Cirrhosis of the liver. TECHNIQUE: Multiple grayscale and Doppler ultrasound images of the abdomen were obtained. COMPARISON: Abdomen ultrasound 11/28/2021, CT abdomen and pelvis 09/19/2021 FINDINGS: Abdominal aorta is normal in caliber. Inferior vena cava is normal. The visualized portions of the head and body of the pancreas are normal. The liver demonstrates coarsened echotexture and chu rface nodularity, consistent with cirrhosis. There is normal flow in main portal vein. The gallbladde r is absent. The common duct is normal and measures 5 mm. The kidneys are normal in size. There is mi ld splenomegaly measuring 15.0 cm. There is trace ascites. IMPRESSION: 1. Cirrhosis of the liver with portal venous hypertension. Reviewed, dictated and finalized at location B.
--- NOTE | 2022-09-01 11:57 | ECG_ITS ---
Measurements Intervals [place] Rate: 44 P: 55 [place]: 190 QRS: -45 QRSD: 160 T: 18 QT: 542 QTc: 464 Interpretive Statements SINUS BRADYCARDIA LEFT AXIS DEVIATION RIGHT BUNDLE BRANCH BLOCK NONSPECIFIC ST ABNORMALITY ABNORMAL ECG COMPARED TO ECG 07/29/2022 18:32:01 RIGHT BUNDLE-BRANCH BLOCK NOW PRESENT Electronically Signed On 09-01-2022 15:13:21 CDT by Bart Castro M.D.
[2022-09-01 12:26] LABS: Basophils Absolute Auto 0.1 K/mm3 (0.0-0.1); Basophils Percent Auto 1.4 % (0.2-1.2); Eosinophils Absolute Auto 0.2 K/mm3 (0-0.3); Eosinophils Percent Auto 4.2 % (0-4.4); Hematocrit 21.8 % (37.0-47.0); Immature Granulocyte Percent A 1.8 % (0-0.5); Immature Platelet Fraction Pct 5.2 % (0.9-11.2); Lymphocytes Absolute Auto 1.27 K/mm3 (0.9-3.2); Lymphocytes Percent Auto 22.9 % (18.3-44.2); Mean Corpuscular HGB Conc 30.7 g/dl (32-36); Mean Corpuscular Hemoglobin 32.4 pg (26-34); Mean Corpuscular Volume 105.3 fl (80-100); Mean Platelet Volume 10.6 fl (7.4-10.4); Monocytes Absolute Auto 0.3 K/mm3 (0.1-0.6); Monocytes Percent Auto 4.5 % (2.6-8.5); Neutrophils Absolute Auto 3.6 K/mm3 (1.3-6.7); Neutrophils Percent Auto 65.2 % (45.5-73.1); Nucleated Red Blood Cells Perc 0.7 % (0.0-0.2); Platelet Count Result 147 k/mm3 (150-375); Red Blood Count 2.07 M/mm3 (4.2-5.4); Red Cell Distribution Width 17.8 % (11.5-14.5)
[2022-09-01 12:28] LABS: Hemoglobin 6.7 g/dL (12.0-15.0)
[2022-09-01 12:36] LABS: INR 1.2
[2022-09-01 12:37] LABS: Partial Thromboplastin Time 38.4 SECONDS (22.3-36.8)
--- NOTE | 2022-09-01 12:40 | ED.SOB ---
HPI - SOB/Dyspnea General Chief Complaint: Shortness of Breath/Dyspnea Stated Complaint: dyspnea Source: patient and RN notes reviewed Mode of arrival: EMS Limitations: no limitations History of Present Illness HPI Narrative: This is a 76 year old female with history of CHF, COPD, DM Who presents for evaluation of shortness of breath. She reports shortness of breath for 3 days that is worsening. She denies chest pain, fever, chills, nausea, vomiting or diarrhea. She has a cough but she states it is not worse than normal. PAtient was found to have audible wheezing by EMS And she was given neb treatment. She reports mild bilateral leg swelling for 1 week. She does not feel any better after her neb treatment. Related Data Home Medications Medication Instructions Recorded Confirmed asenapine maleate 5 mg sublingual 5 mg sublingual Q12H 01/04/20 09/01/22 tablet (Saphris) escitalopram oxalate 5 mg tablet 5 mg PO DAILY 08/21/21 09/01/22 rosuvastatin 20 mg tablet 20 mg PO QHS 08/21/21 09/01/22 trazodone 100 mg tablet 300 mg PO HS 08/21/21 09/01/22 glucagon HCl 1 mg solution for 1 mg subcut Q20M PRN Hypoglycemia 02/13/22 09/01/22 injection (Glucagon (HCl) Emergency Kit) sodium chloride 0.65 % nasal spray 1 spray intranasal BID PRN Dry 02/13/22 09/01/22 aerosol (Saline Mist) Nasal Passages insulin glargine 100 unit/mL (3 9 unit subcut QHS 05/17/22 09/01/22 mL) subcutaneous pen (Lantus Solostar U-100 Insulin) amlodipine 5 mg tablet 10 mg PO DAILY 07/18/22 09/01/22 ferrous sulfate 325 mg (65 mg 325 mg PO DAILY 07/18/22 09/01/22 iron) tablet (FeroSul) furosemide 40 mg tablet 40 mg PO DAILY 07/18/22 09/01/22 gabapentin 600 mg tablet 600 mg PO TID 07/18/22 09/01/22 hydroxyzine HCl 25 mg tablet 25 mg PO TID PRN Itching 08/25/22 09/01/22 nystatin-triamcinolone 100,000 1 applic topical BID PRN Itching 09/26/22 10/03/22 unit/g-0.1 % topical cream Allergies Allergy/AdvReac Type Severity Reaction Status Date / Time alendronate sodium Allergy Unknown Unknown Verified 09/01/22 12:23 amantadine Allergy Unknown Unknown Verified 09/01/22 12:23 benztropine Allergy Unknown Unknown Verified 09/01/22 12:23 chlorpromazine Allergy Unknown Unknown Verified 09/01/22 12:23 levofloxacin Allergy Unknown Unknown Verified 09/01/22 12:23 Macrolide Antibiotics Allergy Unknown UNKNOWN Verified 09/01/22 12:23 REACTION mirtazapine Allergy Unknown Unknown Verified 09/01/22 12:23 Quinolones Allergy Unknown Unknown Verified 09/01/22 12:23 topiramate Allergy Unknown Unknown Verified 09/01/22 12:23 Review of Systems Review of Systems: All systems reviewed & are unremarkable except as noted in HPI and below Constitutional: Constitutional: Denies chills, Reports fatigue and Denies fever(s) Cardiovascular: Cardiovascular: Denies chest pain and Denies rapid heart rate Respiratory: Respiratory: Reports cough, Reports dyspnea and Reports wheezing Gastrointestinal: Gastrointestinal: Denies abdominal pain, Reports diarrhea (chronic), Denies nausea and Denies vomiting [facility] Past Medical History Medical History (Updated 09/01/22 @ 18:07 by Destiny Bender PA-C) Anemia Anxiety Aortic stenosis Moderate on echocardiogram in November 2021. Arthritis Asthma Bipolar disorder Cerebrovascular accident Chronic diastolic congestive heart failure (12/2019) Chronic kidney disease, stage 4 (severe) Chronic obstructive pulmonary disease PFTs 06/28/2021: Moderate obstructive abnormality, moderate decreased diffusion capacity. Depression Diabetic peripheral neuropathy Diastolic dysfunction Echocardiogram 05/2021: EF 65-70%, grade 1 diastolic dysfunction, E/E elevated, global longitudinal strain mildly abnormal, moderate left atrial enlargement, moderate aortic valve sclerosis, mild aortic valve stenosis with peak velocity 239, mean gradient 14, aortic valve area 1.7 to, mild aortic valve regurgitation, Esophageal varices Gastroesophageal r
[2022-09-01 12:43] LABS: Lactic Acid Reflex 1.4 mmol/L (0.7-2.0)
[2022-09-01 12:45] LABS: Alanine Aminotransferase 29 U/L (6-35); Albumin Level 3.9 g/dL (3.5-5.1); Alkaline Phosphatase 415 U/L (38-126); Anion Gap 10 mmol/L (8-16); Aspartate Amino Transferase 50 U/L (14-36); Bilirubin,Total 0.4 mg/dL (0.2-1.3); Blood Urea Nitrogen 31 mg/dL (7-17); Calcium 8.5 mg/dL (8.4-10.2); Carbon Dioxide 20 mmol/L (22-30); Chloride 109 mmol/L (98-107); Estimated CRCL calculation 19 ml/min; Estimated Glomerular Filt Rate 23; Glucose 130 mg/dL (65-110); Potassium 4.4 mmol/L (3.4-5.0); Sodium 139 mmol/L (137-145)
[2022-09-01] MEDS: ALBUTEROL SULFATE NEB 2.5 MG/3 ML INH 5 MG INHALATION (12:51)
[2022-09-01 12:55] LABS: NT Pro B Type Natriuretic Pept 2950 pg/mL (5-100); Troponin I 0.016 ng/mL (0.000-0.034)
[2022-09-01 12:56] LABS: Alveolar/Arterial O2 Gradient 46.7 mmHg; Base Excess ABG -6.4 mEq/l (+/-2.0); Carboxyhemoglobin 0.7 % THb (0-2.0); Fractional Inspired Oxygen 21 %; Methemoglobin ABG 0.5 %THb (0-1.5); Oxygen Saturation ABG 93.2 % (95.0-100.0); Oxyhemoglobin 89.9 % THb (90.0-100.0); PCO2 ABG 30.7 mmHg (35.0-45.0); PO2 ABG 66.3 mmHg (80.0-100.0); PO2 FiO2 Ratio Arterial Blood 3.16 %; Reduced Hemoglobin 8.9 %THb (0-5.0); pH ABG 7.386 (7.350-7.450)
[2022-09-01 12:59] LABS: Device ROOM AIR; Site Drawn RIGHT BRACHIAL
[2022-09-01 13:02] LABS: SARS-CoV-2 RNA PCR Negative
[2022-09-01 13:03] LABS: Platelet Estimate Adequate (Adequate)
[2022-09-01 13:05] LABS: Anisocytosis 2+ (NORMAL); Hypochromasia 2+ (NORMAL); White Blood Count 5.5 K/mm3 (4.5-10.0)
[2022-09-01 13:06] LABS: Schistocytes None Seen (NORMAL)
[2022-09-01 13:51] LABS: Ammonia 26 umol/L (9-30)
--- NOTE | 2022-09-01 15:24 | PC.NURSE ---
This patient, Nisha Sigala, was admitted to [facility] Surg Room 305-01. Patient/family oriented to hospital policies and general routines including ID bracelet, bed and alarms, visiting hours, pain management, procedures, bathroom and other care routines, personal items, smoking policy, room service/diet, and visiting hours. Information on how to activate the Rapid Response Team has been discussed. Patient/Family are encouraged to report perceived risks to care and to ask questions if they do not understand what they are told or what they should do.
--- NOTE | 2022-09-01 15:30 | PM.IMHP ---
H&P: HPI History of Present Illness Date/Time: 09/01/22 15:30 Chief Complaint: Shortness of breath. Narrative: This is a 76-year-old female with chronic obstructive pulmonary disease, stroke, hypertension, hyperlipidemia, cirrhosis secondary to fatty liver disease with history of small esophageal varices, hepatic encephalopathy, chronic kidney disease, type 2 diabetes mellitus, hypothyroidism, diastolic congestive heart failure, and anemia who presented to the emergency department for evaluation of shortness of breath. I am seeing the patient following a rapid response; according to the patient's nurse the patient was essentially unresponsive on arrival to the room from the emergency department at which time she was found to have a glucose of 30. She was given an amp of dextrose and her mentation slowly improved over the next 5 minutes. She has no gross focal deficits at the time my evaluation though nurse reports that the right side of her mouth seemed to droop when she was unresponsive. She was able to tell me that she came in today for evaluation of increasing dyspnea on lesser and lesser exertion over the past 3 days or so. She has also noticed the development of mild lower extremity edema. EMS reports that she was audibly wheezing which did improve after receiving a nebulizer in route to the hospital. Workup in the ED was significant for a hemoglobin and hematocrit of 6.7 and 21.8% respectively and her chest x-ray showed evidence of mild pulmonary edema. On rectal exam her stool was brown but was Hemoccult-positive and she is being admitted in this setting for blood transfusion and GI consultation. With further questioning she does mention that she has had worsening anemia recently and in fact got a blood transfusion a couple of weeks ago when her hemoglobin was 5.8. She has not noticed any overt blood loss and she specifically denies epistaxis, hemoptysis, hematemesis, melena, hematochezia, and hematuria. She also denies fever, chills, sweats, cold and flu symptoms, cough, dysphagia, and concerns for aspiration Review of Systems Review of Systems: Twelve systems were reviewed. She has been back at [facility] for a week or so after being at [facility] for rehab due to frequent falls. She thinks it helped her somewhat. No headache, sinus congestion, or sore throat. She is complaining of some mild tenderness over the chest wall from sternal rub done when she was unresponsive. She has not had any exertional chest pain or pleuritic pain. No nausea or vomiting. No diarrhea. No dysuria. Except as documented, all other systems were reviewed and are negative. [facility] Past Medical History Medical History (Updated 09/01/22 @ 18:07 by Destiny Bender PA-C) Anemia Anxiety Aortic stenosis Moderate on echocardiogram in November 2021. Arthritis Asthma Bipolar disorder Cerebrovascular accident Chronic diastolic congestive heart failure (12/2019) Chronic kidney disease, stage 4 (severe) Chronic obstructive pulmonary disease PFTs 06/28/2021: Moderate obstructive abnormality, moderate decreased diffusion capacity. Depression Diabetic peripheral neuropathy Diastolic dysfunction Echocardiogram 05/2021: EF 65-70%, grade 1 diastolic dysfunction, E/E elevated, global longitudinal strain mildly abnormal, moderate left atrial enlargement, moderate aortic valve sclerosis, mild aortic valve stenosis with peak velocity 239, mean gradient 14, aortic valve area 1.7 to, mild aortic valve regurgitation, Esophageal varices Gastroesophageal reflux disease Hepatic encephalopathy Hyperlipidemia Hypertension Hypothyroidism Irritable bowel syndrome 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 Osteoporosis Rectal polyp Type 2 diabetes mellitus Surgical History Surgical History (Updated 09/01/22 @ 17:58 by Destiny Bender PA-C) History of bladder surgery History of cataract extraction with lens replacement History of section History of cholecystectomy Hist
[2022-09-01 15:46] LABS: Troponin I 0.016 ng/mL (0.000-0.034)
[2022-09-01 15:55] LABS: Glucose Point of Care 218 mg/dl (65-105)
[2022-09-01 15:55] LABS: Glucose Point of Care 275 mg/dl (65-105)
[2022-09-01 15:55] LABS: Glucose Point of Care 36 mg/dl (65-105)
--- NOTE | 2022-09-01 16:11 | WPDGICN ---
Assessment and Plan Assessment and plan (1) Anemia: Code(s): D64.9 - Anemia, unspecified Status: Acute Assessment and Plan: although she has chronic anemia, likely due to chronic kidney disease, I suspect she has been losing blood given the sudden drop in her counts. I am suspicious of esophageal varices (2) Hepatic encephalopathy: Code(s): K72.90 - Hepatic failure, unspecified without coma Status: Chronic Assessment and Plan: she is supposed to be taking Xifaxan 550 mg twice a day, in addition to lactulose syrup which was prescribed during her most recent hospitalization. I suspect she is compliant with her meds, as she is a resident of [facility]. (3) Cirrhosis of liver with ascites: Qualifiers: Hepatic cirrhosis type: unspecified hepatic cirrhosis Qualified Code(s): K74.60 - Unspecified cirrhosis of liver; R18.8 - Other ascites Code(s): K74.60 - Unspecified cirrhosis of liver; R18.8 - Other ascites Status: Chronic Assessment and Plan: This was diagnosed several years ago and was attributed to ZIEGLER. She has told me in the past she sees a liver specialist in [place]. She thought it was Dr. Tony Acevedo. At this time she is a little too lethargic to be able to clearly remember when she last saw her (4) Chronic kidney disease, stage III (moderate): Qualifiers: Chronic kidney disease stage 3 subtype: stage 3b (GFR 30-44) Qualified Code(s): N18.32 - Chronic kidney disease, stage 3b Code(s): N18.3 - Chronic kidney disease, stage 3 (moderate) Status: Chronic Assessment and Plan: this has been followed by Nephrology. Creatinine today is 2.1 which actually is a little better than her average baseline which is around 2.4. S is followed by Dr. Aquino (5) Sinus bradycardia: Code(s): R00.1 - Bradycardia, unspecified Status: Acute Assessment and Plan: This is pre-existing. She was found to be bradycardic when she was hypoglycemic. She takes propranolol 10 mg b.i.d. which is the standard dose for portal hypertension but this is being held for now. Her pulse has been in the 40s here today but usually she is in the mid 50s at least. (6) Diabetes mellitus: Code(s): E11.9 - Type 2 diabetes mellitus without complications Status: Acute Assessment and Plan: she was found to be very lethargic shortly after admission and blood sugar was noted to be in the 30s. She has been given intravenous glucose already Plan She her blood counts will be watched. She is going to be transfused. I will schedule her, tentatively for EGD to be done tomorrow to inspect for/ and treat, possible varices GI Consult Note Consult date/time: 09/01/22 16:11 HPI: Nisha Sigala is a 76 year old female who was known to have cirrhosis. She presented emergency room this morning complaining of shortness of breath. She was found to be anemic, more so than usual. Her hemoglobin is 5.8. 1 unit of blood has been ordered for her. She denies seeing blood her stools are having black tarry stools. She denies vomiting blood. She is known to have cirrhosis. She tells me that she sees a liver specialist in [place]. According to the record she is on furosemide 40 mg daily. About 1 year ago she had E GD and colonosfcopy here fil[place] . EGD had shown very small varices in the distal esophagus. She has also been found in the past have hepatic encephalopathy for which she had been started on Xifaxan. Also she had recently been started on lactulose syrup during recent hospitalization. She denies alcohol use. He was in never determined the cause of her cirrhosis but it was assumed that it was due to fatty liver as apparently other etiologies have been ruled out. She was hospitalized here just 4 weeks ago at that time was admitted because of falling and she was found to be very lethargic at that time. Her b
[2022-09-01 16:36] LABS: Glucose Point of Care 185 mg/dl (65-105)
[2022-09-01] MEDS: PANTOPRAZOLE SODIUM IV 40 MG VIAL IV PUSH (17:01)
[2022-09-01 17:03] LABS: Glucose Point of Care 181 mg/dl (65-105)
[2022-09-01] MEDS: FUROSEMIDE INJ 40 MG/4 ML VIAL 20 MG IV PUSH (18:34)
--- NOTE | 2022-09-01 18:37 | PC.NURSE ---
Rapid was called on patient today about 1530, patient was lethargic, HR was 44 RR 12 BP was 121/42, O2 was 88% om room air. Patient was oriented x4, but after answering questions could not stay awake and was hard to arouse. BG was 36.
--- NOTE | 2022-09-01 18:45 | PC.NURSE ---
Called sister Zamzam, stated she will try to get the Saphris to the hospital for patient to take from home meds.
[2022-09-01] MEDS: ACETAMINOPHEN 500 MG TABLET 1000 MG PO (18:49)
--- NOTE | 2022-09-01 20:32 | PHAR ---
DRUG NAME: ASENAPINE - BLACK VELAZQUEZ INGREDIENTS: ASENAPINE -- 5 MG RELATED DOCUMENTS: DRUGDEX EVALUATIONS - ASENAPINE COLOR: WHITE SHAPE: QUINAULT IMPRINT: 3 , B FORM: SUBLINGUAL TABLET
[2022-09-01 21:27] LABS: Glucose Point of Care 153 mg/dl (65-105)
[2022-09-01] MEDS: MELATONIN 3 MG TABLET PO (21:33)
[2022-09-01] MEDS: traZODone HCL 50 MG TABLET 300 MG PO (21:33)
[2022-09-01] MEDS: ROSUVASTATIN 10 MG TABLET 20 MG PO (21:33)
[2022-09-01 23:54] LABS: Glucose Point of Care 121 mg/dl (65-105)
[2022-09-02] VITALS (20 sets, daily range): BP systolic 93–137; BP diastolic 30–59; PULSE 48–62; RESP 12–23; TEMP 36–37.3; O2SAT 96–100
[2022-09-02] MEDS: ACETAMINOPHEN 325 MG TABLET 650 MG PO (01:37)
--- NOTE | 2022-09-02 02:01 | PC.NURSE ---
Pt arrived on IMU floor at 23:00
[2022-09-02] MEDS: FUROSEMIDE INJ 40 MG/4 ML VIAL 20 MG IV PUSH (03:10)
[2022-09-02 04:47] LABS: Basophils Absolute Auto 0.1 K/mm3 (0.0-0.1); Basophils Percent Auto 1.1 % (0.2-1.2); Eosinophils Absolute Auto 0.2 K/mm3 (0-0.3); Eosinophils Percent Auto 3.1 % (0-4.4); Hematocrit 25.7 % (37.0-47.0); Hemoglobin 7.9 g/dL (12.0-15.0); Immature Granulocyte Absolute 0.06 K/mm3 (0.00-0.031); Immature Granulocyte Percent A 1.1 % (0-0.5); Immature Platelet Fraction Pct 4.4 % (0.9-11.2); Lymphocytes Absolute Auto 0.97 K/mm3 (0.9-3.2); Lymphocytes Percent Auto 17.8 % (18.3-44.2); Mean Corpuscular HGB Conc 30.7 g/dl (32-36); Mean Corpuscular Hemoglobin 31.5 pg (26-34); Mean Corpuscular Volume 102.4 fl (80-100); Mean Platelet Volume 10.8 fl (7.4-10.4); Monocytes Absolute Auto 0.3 K/mm3 (0.1-0.6); Neutrophils Absolute Auto 3.9 K/mm3 (1.3-6.7); Neutrophils Percent Auto 70.9 % (45.5-73.1); Nucleated Red Blood Cells Perc 0.5 % (0.0-0.2); Platelet Count Result 123 k/mm3 (150-375); Red Blood Count 2.51 M/mm3 (4.2-5.4); Red Cell Distribution Width 17.8 % (11.5-14.5); White Blood Count 5.5 K/mm3 (4.5-10.0)
[2022-09-02 04:54] LABS: Magnesium 2.2 mg/dL (1.6-2.3)
[2022-09-02 04:55] LABS: INR 1.3; Prothrombin Time 15.3 Seconds (11.1-14.7)
[2022-09-02 04:56] LABS: Alanine Aminotransferase 25 U/L (6-35); Albumin Level 3.7 g/dL (3.5-5.1); Alkaline Phosphatase 367 U/L (38-126); Anion Gap 14 mmol/L (8-16); Aspartate Amino Transferase 42 U/L (14-36); Bilirubin,Total 0.4 mg/dL (0.2-1.3); Blood Urea Nitrogen 27 mg/dL (7-17); Calcium 8.8 mg/dL (8.4-10.2); Carbon Dioxide 21 mmol/L (22-30); Chloride 106 mmol/L (98-107); Estimated CRCL calculation 20 ml/min; Estimated Glomerular Filt Rate 24; Glucose 118 mg/dL (65-110); Partial Thromboplastin Time 39.6 SECONDS (22.3-36.8); Potassium 4.1 mmol/L (3.4-5.0); Sodium 141 mmol/L (137-145)
[2022-09-02] MEDS: LEVOTHYROXINE SODIUM 125 MCG TABLET PO (05:21)
[2022-09-02 05:55] LABS: Hemoglobin A1C 4.9 % (<5.7)
[2022-09-02 06:24] LABS: Free T4 Free Thyroxine Reflex 0.85 ng/dL (0.78-2.19)
[2022-09-02 08:16] LABS: Total Triiodothyronine (T3) 0.84 NG/ML (0.97-1.69)
[2022-09-02 08:41] LABS: Glucose Point of Care 122 mg/dl (65-105)
[2022-09-02] MEDS: UMECLIDINIUM/VILANTEROL 62.5-25 MCG ELLIPTA 1 PUFF INHALATION (09:00)
[2022-09-02] MEDS: PANTOPRAZOLE SODIUM IV 40 MG VIAL IV PUSH ×2 (10:00→17:28)
[2022-09-02] MEDS: GABAPENTIN 300 MG CAPSULE 600 MG PO ×3 (10:00→17:27)
[2022-09-02] MEDS: ESCITALOPRAM OXALATE 5 MG TABLET PO (10:00)
[2022-09-02] MEDS: FERROUS SULFATE 324 MG TABLET PO (10:00)
[2022-09-02] MEDS: PROPRANOLOL HCL 10 MG TABLET PO ×2 (10:01→17:27)
[2022-09-02] MEDS: lamoTRIgine 50 MG TABLET 150 MG PO ×2 (10:01→20:54)
[2022-09-02] MEDS: amLODIPine BESYLATE 5 MG TABLET 10 MG PO (10:02)
[2022-09-02] MEDS: LACTATED RINGERS 1,000 ML 150 ML IV CONT (11:11)
--- NOTE | 2022-09-02 11:16 | WPDANESEPPF ---
Anes - Initial Pre Proc Eval Procedure: Operation Date: 09/02/22 12:30 Proposed Procedures p Esophagogastroduodenoscopy EGD - Edwin Moreno MD Date/Time: 09/02/22 11:16 Surgeon: Orlando Washington MD Pre Op Diagnosis: Anemia/COPD Exacerbation/Cirrhosis Patient Data Age: 76 Gender: F Height: 1.55 m Weight: 76.2 kg Last Vital Signs Temp 97.5 F L 09/02/22 08:52 Pulse 56 L 09/02/22 10:01 Resp 20 09/02/22 08:52 BP 137/47 L 09/02/22 08:52 Pulse Ox 98 09/02/22 08:52 O2 Del Method Nasal Cannula 09/02/22 00:00 O2 Flow Rate 2 09/02/22 00:00 Allergies Allergy/AdvReac Type Severity Reaction Status Date / Time alendronate sodium Allergy Unknown Unknown Verified 09/01/22 12:23 amantadine Allergy Unknown Unknown Verified 09/01/22 12:23 benztropine Allergy Unknown Unknown Verified 09/01/22 12:23 chlorpromazine Allergy Unknown Unknown Verified 09/01/22 12:23 levofloxacin Allergy Unknown Unknown Verified 09/01/22 12:23 Macrolide Antibiotics Allergy Unknown UNKNOWN Verified 09/01/22 12:23 REACTION mirtazapine Allergy Unknown Unknown Verified 09/01/22 12:23 Quinolones Allergy Unknown Unknown Verified 09/01/22 12:23 topiramate Allergy Unknown Unknown Verified 09/01/22 12:23 Home Medications Medication Instructions Recorded Confirmed Type asenapine maleate 5 mg sublingual 5 mg sublingual Q12H 01/04/20 09/01/22 History tablet (Saphris) lamotrigine 150 mg tablet 150 mg PO BID #60 tabs 01/18/20 09/01/22 Rx escitalopram oxalate 5 mg tablet 5 mg PO DAILY 08/21/21 09/01/22 History rosuvastatin 20 mg tablet 20 mg PO QHS 08/21/21 09/01/22 History trazodone 100 mg tablet 300 mg PO HS 08/21/21 09/01/22 History umeclidinium 62.5 mcg-vilanterol 1 inh inhalation DAILY #60 ea 10/15/21 09/01/22 Rx 25 mcg/actuation powdr for inhalation (Anoro Ellipta) pantoprazole 40 mg tablet,delayed 40 mg PO QAM #90 tabs 11/18/21 09/01/22 Rx release propranolol 10 mg tablet 10 mg PO BID #180 tabs 11/26/21 09/01/22 Rx glucagon HCl 1 mg solution for 1 mg subcut Q20M PRN Hypoglycemia 02/13/22 09/01/22 History injection (Glucagon (HCl) Emergency Kit) sodium chloride 0.65 % nasal spray 1 spray intranasal BID PRN Dry 02/13/22 09/01/22 History aerosol (Saline Mist) Nasal Passages blood sugar diagnostic (True #100 ea 05/05/22 09/01/22 Rx Metrix Glucose Test Strip) blood sugar diagnostic (True See Rx Instructions .Route 05/05/22 09/01/22 Rx Metrix Glucose Test Strip) .COMPLEX #200 strips insulin glargine 100 unit/mL (3 9 unit subcut QHS 05/17/22 09/01/22 History mL) subcutaneous pen (Lantus Solostar U-100 Insulin) triamcinolone acetonide 0.1 % 1 applic topical TID PRN itching 06/05/22 09/01/22 Rx topical cream #30 grams levothyroxine 125 mcg tablet 125 mcg PO DAILY #90 tabs 06/16/22 09/01/22 Rx amlodipine 5 mg tablet 10 mg PO DAILY 07/18/22 09/01/22 History ferrous sulfate 325 mg (65 mg 325 mg PO DAILY 07/18/22 09/01/22 History iron) tablet (FeroSul) furosemide 40 mg tablet 40 mg PO DAILY 07/18/22 09/01/22 History gabapentin 600 mg tablet 600 mg PO TID 07/18/22 09/01/22 History acetaminophen 500 mg tablet 1,000 mg PO 2XD PRN Pain #10 tabs 07/22/22 09/01/22 Rx insulin lispro 100 unit/mL 1 sliding scale dose subcut 07/22/22 09/01/22 Rx subcutaneous pen (Humalog KwikPen USEASDIRECTD #15 mL (U-100) Insulin) insulin lispro 100 unit/mL 7 unit (0.07 mL) subcut TIDWMEAL 07/22/22 09/01/22 Rx subcutaneous pen (Humalog KwikPen #15 mL (U-100) Insulin) melatonin 3 mg tablet 3 mg PO HS #10 tabs 07/22/22 09/01/22 Rx lactulose 20 gram/30 mL oral 20 g (30 mL) PO TID #2,880 mL 07/31/22 09/01/22 Rx solution hydroxyzine HCl 25 mg tablet 25 mg PO TID PRN Itching 08/25/22 09/01/22 History nystatin-triamcinolone 100,000 1 applic topical BID PRN Itching 08/25/22 09/01/22 History unit/g-0.1 % topical cream Laboratory Tests 09/01/22 09/01/22 09/01/22 12:07 12:14 12:14 WBC 5.5 K/mm3 K
[2022-09-02 11:34] LABS: Glucose Point of Care 119 mg/dl (65-105)
[2022-09-02 12:53] LABS: Glucose Point of Care 114 mg/dl (65-105)
[2022-09-02 13:10] LABS: Glucose Point of Care 133 mg/dl (65-105)
[2022-09-02] MEDS: LACTULOSE 20 GM/30 ML UDC PO ×2 (14:49→17:28)
[2022-09-02] MEDS: FUROSEMIDE 40 MG TABLET PO (14:49)
[2022-09-02 15:26] LABS: Folic Acid 5.6 ng/mL (2.76->20)
--- NOTE | 2022-09-02 16:11 | PM.IMPN ---
Progress Note: A&P Assessment and Plan (1) Acute on chronic anemia: Code(s): D64.9 - Anemia, unspecified Status: Acute Assessment and Plan: 09/02/2022 interval history: 76-year-old female with history of liver cirrhosis with ascites chronic presented with a hepatic encephalopathy and anemia, upon arrival her hemoglobin was 5.8 and patient was given 2 unit of PRBC, was seen by GI to further evaluate patient had a EGD which did not show any bleeding varics, patient has a gastritis patient is being treated with Protonix 40 mg IV b.i.d. upon arrival patient complaint of dyspnea with minimal activity with lower extremity edema and ascites suspect congestive heart failure patient being diuresed her symptoms improved, lower extremity venous Doppler did not show any DVT, will continue to monitor will have PT OT evaluate the patient and further recommendation to follow (2) Heme positive stool: Code(s): R19.5 - Other fecal abnormalities Status: Acute (3) Hypoglycemia: Code(s): E16.2 - Hypoglycemia, unspecified Status: Acute (4) Type 2 diabetes mellitus: Code(s): E11.9 - Type 2 diabetes mellitus without complications Status: Chronic (5) Sinus bradycardia: Code(s): R00.1 - Bradycardia, unspecified Status: Acute (6) Hypothyroidism: Qualifiers: Hypothyroidism type: acquired Qualified Code(s): E03.9 - Hypothyroidism, unspecified Code(s): E03.9 - Hypothyroidism, unspecified Status: Acute (7) 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: Code(s): K75.81 - Nonalcoholic steatohepatitis (ZIEGLER); K74.60 - Unspecified cirrhosis of liver Status: Chronic (8) Chronic kidney disease, stage 4 (severe): Code(s): N18.4 - Chronic kidney disease, stage 4 (severe) Status: Acute (9) Acute on chronic diastolic (congestive) heart failure: Code(s): I50.33 - Acute on chronic diastolic (congestive) heart failure Status: Acute (10) Chronic obstructive pulmonary disease: Code(s): J44.9 - Chronic obstructive pulmonary disease, unspecified Status: Acute Plan The patient presented to the emergency department today for evaluation of increasing shortness of breath over the last several days as well as lower extremity edema that has gotten worse over the past 1 week. She was found to be profoundly anemic and her stool was indeed Hemoccult positive on exam done in the ER. She reports that she had a blood transfusion done several weeks ago as well due to a drop in her hemoglobin. She has a history of small, mild distal esophageal varices and Dr. Moreno has been consulted for possible endoscopy tomorrow. She has been started on IV Protonix 40 milligrams b.i.d. and she will be NPO after midnight. She will be transfused to a stable hemoglobin. Lasix will be given as she does have some evidence of mild volume overload, likely due to profound anemia. No evidence of acute decompensated liver failure. Continue lactulose. She had an unresponsive episode on arrival to her room today related to hypoglycemia as her glucose was reportedly in the 30s. Her mentation improved within about 5 minutes of receiving IV dextrose. While she did reportedly have a small right-sided facial droop I suspect that it was related to the hypoglycemia as there is no evidence on exam now to suggest focal deficits. I suspect she was hypoglycemic as she did not receive any food while in the emergency department; she is insulin-dependent. Will continue to monitor her glucose closely this evening and resume basal insulin at an appropriate dose depending on how she trends. Initiate sliding scale insulin, Accu-Cheks, and hypoglycemic protocol. Check hemoglobin A1c. There is no evidence on exam to suggest acute COPD exacerbation and we will continue with her maintenance inhalers. Rescue inhaler available as needed. Renal function is stable on review of previous labs. On review of previous vital signs
[2022-09-02 16:36] LABS: Glucose Point of Care 149 mg/dl (65-105)
[2022-09-02] MEDS: HYDROcodone/acetaminophen (*CRX) 5-325 MG TABLET 1 TAB PO (17:26)
--- NOTE | 2022-09-02 18:33 | PC.NURSE ---
This patient, Nisha Sigala, was transferred to [facility] on 09/02/22 at 1754. Personal belongings sent with patient. Report given to Olivia DHALIWAL. Appropriate documentation sent with patient.
[2022-09-02] MEDS: MELATONIN 3 MG TABLET PO (20:54)
[2022-09-02] MEDS: traZODone HCL 50 MG TABLET 300 MG PO (20:54)
[2022-09-02] MEDS: ROSUVASTATIN 10 MG TABLET 20 MG PO (20:54)
[2022-09-02 21:46] LABS: Glucose Point of Care 103 mg/dl (65-105)
[2022-09-03] VITALS (9 sets, daily range): BP systolic 111–120; BP diastolic 38–45; PULSE 55–58; RESP 16–20; TEMP 36.6–37; O2SAT 87–98
[2022-09-03 06:10] LABS: Hemoglobin 7.7 g/dL (12.0-15.0); Mean Corpuscular HGB Conc 30.8 g/dl (32-36); Mean Corpuscular Hemoglobin 31.7 pg (26-34); Mean Corpuscular Volume 102.9 fl (80-100); Mean Platelet Volume 10.9 fl (7.4-10.4); Platelet Count Result 108 k/mm3 (150-375); Red Blood Count 2.43 M/mm3 (4.2-5.4); Red Cell Distribution Width 18.5 % (11.5-14.5); White Blood Count 6.5 K/mm3 (4.5-10.0)
[2022-09-03] MEDS: LEVOTHYROXINE SODIUM 125 MCG TABLET PO (06:15)
[2022-09-03 06:23] LABS: Alanine Aminotransferase 26 U/L (6-35); Albumin Level 3.5 g/dL (3.5-5.1); Alkaline Phosphatase 407 U/L (38-126); Anion Gap 11 mmol/L (8-16); Aspartate Amino Transferase 50 U/L (14-36); Bilirubin,Total 0.4 mg/dL (0.2-1.3); Blood Urea Nitrogen 25 mg/dL (7-17); Calcium 8.2 mg/dL (8.4-10.2); Carbon Dioxide 21 mmol/L (22-30); Chloride 107 mmol/L (98-107); Estimated CRCL calculation 19 ml/min; Estimated Glomerular Filt Rate 23; Glucose 117 mg/dL (65-110); Magnesium 2.1 mg/dL (1.6-2.3); Potassium 4.5 mmol/L (3.4-5.0); Sodium 139 mmol/L (137-145)
--- NOTE | 2022-09-03 06:34 | WPDGIPROGNO ---
Progress Note: A&P Assessment and Plan (1) Acute on chronic anemia: Code(s): D64.9 - Anemia, unspecified Status: Acute Assessment and Plan: she has not had any overt evidence of bleeding. She has been worked up for this in the past, as Dr. Baca had performed EGD and colonoscopy within the past year. Only diverticular disease was seen on her lower exam and some hemorrhoid tissue. She does not have bright red blood in her stools and denies having black stool. This is the 2nd time in a month that she has required transfusion. I think would be appropriate to get Hematology involved. Her iron levels a.c. have been adequate. Her MCV is high suggesting folic acid or B12 deficiency, but these have both been checked and are normal. She may have some folic acid resistance. 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 (3) Chronic kidney disease, stage 4 (severe): Code(s): N18.4 - Chronic kidney disease, stage 4 (severe) Status: Acute Assessment and Plan: Clearly this could be a component to her anemia (4) Hepatic encephalopathy: Code(s): K72.90 - Hepatic failure, unspecified without coma Status: Chronic Assessment and Plan: she had issues with hepatic encephalopathy last admission. Her blood ammonia level is now Normal. She has been taking both Xifaxan and lactulose because her meds are administrated by the staff at [facility], I am fairly confident she is she is complaint (5) Esophageal varices: Code(s): I85.00 - Esophageal varices without bleeding Status: Acute Assessment and Plan: Her varices are rather small and not a likely source of bleeding. She has maintained her nonselective beta-leonidas to help prevent bleeding (6) Macrocytosis: Code(s): D75.89 - Other specified diseases of blood and blood-forming organs Status: Acute Assessment and Plan: the elevated MCV suggests possible problem with red blood Cell synthesis. Will get hematology consult. Subjective Date/time seen: 09/03/22 06:34 She shows no evidence of bleeding and has no complaints this morning. I explained that her EGD did not show any evidence of a source for bleeding. She had a colonoscopy within the past year that was unremarkable. Review of Systems Review of Systems: All systems reviewed & are unremarkable except as noted in HPI and below Exam Const: General: alert Orientation/consciousness: patient oriented x3 Resp: Auscultation: clear to auscultation bilaterally Cardio: Rhythm: regular rhythm GI: GI Palp: Yes Soft to palpation and No Tenderness to palpation present (GI) Neuro: General: patient oriented x3 Objective Data Vital Signs Vital Signs: Vital Signs - 24 hr 09/02/22 08:52 09/02/22 10:01 09/02/22 11:18 Temperature 36.4 C L 37.2 C Pulse Rate 62 56 L 56 L Respiratory Rate 20 20 Blood Pressure 137/47 L 127/35 L Pulse Oximetry 98 100 Oxygen Delivery Nasal Cannula Oxygen Flow Rate 2 09/02/22 12:23 09/02/22 12:33 09/02/22 12:42 Temperature Pulse Rate 48 L 53 L 53 L Respiratory Rate 12 23 H 21 H Blood Pressure 93/30 L 101/38 L 123/51 L Pulse Oximetry 100 100 99 Oxygen Delivery Nasal Cannula Nasal Cannula Nasal Cannula Oxygen Flow Rate 2 2 2 09/02/22 08:00 09/02/22 08:00 09/02/22 16:15 Temperature 36.4 C Pulse Rate 54 L 53 L Respiratory Rate 20 Blood Pressure 120/39 L Pulse Oximetry 99 96 Oxygen Delivery Nasal Cannula Oxygen Flow Rate 2
[2022-09-03 07:59] LABS: Glucose Point of Care 121 mg/dl (65-105)
[2022-09-03] MEDS: LACTULOSE 20 GM/30 ML UDC PO ×3 (08:40→16:37)
[2022-09-03] MEDS: PANTOPRAZOLE SODIUM IV 40 MG VIAL IV PUSH ×2 (08:40→16:37)
[2022-09-03] MEDS: lamoTRIgine 50 MG TABLET 150 MG PO ×2 (08:41→20:11)
[2022-09-03] MEDS: ESCITALOPRAM OXALATE 5 MG TABLET PO (08:41)
[2022-09-03] MEDS: GABAPENTIN 300 MG CAPSULE 600 MG PO ×3 (08:41→16:39)
[2022-09-03] MEDS: amLODIPine BESYLATE 5 MG TABLET 10 MG PO (08:41)
[2022-09-03] MEDS: FERROUS SULFATE 324 MG TABLET PO (08:42)
[2022-09-03] MEDS: FUROSEMIDE 40 MG TABLET PO ×2 (08:42→20:15)
[2022-09-03] MEDS: PROPRANOLOL HCL 10 MG TABLET PO ×2 (08:43→16:38)
[2022-09-03] MEDS: ACETAMINOPHEN 500 MG TABLET 1000 MG PO (08:44)
[2022-09-03] MEDS: UMECLIDINIUM/VILANTEROL 62.5-25 MCG ELLIPTA 1 PUFF INHALATION (08:57)
--- NOTE | 2022-09-03 09:22 | WPDANESPN ---
Anes - Prog Note Post-Op Date/Time: 09/03/22 09:22 Cardiovascular status: normal Respiratory status: normal Airway patency: baseline Mental status: baseline Post-Op hydration status: normal Vital Signs: Last Vital Signs Temp 98.2 F 09/03/22 06:00 Pulse 57 L 09/03/22 08:43 Resp 16 09/03/22 06:00 BP 111/38 L 09/03/22 06:00 Pulse Ox 93 09/03/22 06:00 O2 Del Method Nasal Cannula 09/03/22 02:05 O2 Flow Rate 1 09/03/22 02:05 Pain Score (VAS): 0/10 I/O: Intake & Output 09/02/22 09/03/22 09/03/22 23:59 07:59 15:59 Intake Total 290 200 Output Total 400 Balance -110 200 Laboratory Tests 09/03/22 05:46 09/03/22 05:46 09/02/22 09/02/22 09/02/22 04:24 11:15 12:45 WBC RBC Hgb Hct MCV MCH MCHC RDW Plt Count MPV Sodium Potassium Chloride Carbon Dioxide Anion Gap BUN Creatinine Estim Creat Clear Calc Estimated GFR Glucose POC Capillary Glucose 119 H 114 H Calcium Magnesium Total Bilirubin AST ALT Alkaline Phosphatase Total Protein Albumin Vitamin B12 Folate 5.6 09/02/22 09/02/22 09/02/22 12:55 13:07 16:20 WBC RBC Hgb Hct MCV MCH MCHC RDW Plt Count MPV Sodium Potassium Chloride Carbon Dioxide Anion Gap BUN Creatinine Estim Creat Clear Calc Estimated GFR Glucose POC Capillary Glucose 133 H 149 H Calcium Magnesium Total Bilirubin AST ALT Alkaline Phosphatase Total Protein Albumin Vitamin B12 505.0 Folate 09/02/22 09/03/22 09/03/22 21:07 05:46 05:46 WBC 6.5 RBC 2.43 L Hgb 7.7 L Hct 25.0 L MCV 102.9 H MCH 31.7 MCHC 30.8 L RDW 18.5 H Plt Count 108 L MPV 10.9 H Sodium 139 Potassium 4.5 Chloride 107 Carbon Dioxide 21 L Anion Gap 11 BUN 25 H Creatinine 2.10 H Estim Creat Clear Calc 19 Estimated GFR 23 L Glucose 117 H POC Capillary Glucose 103 Calcium 8.2 L Magnesium 2.1 Total Bilirubin 0.4 AST 50 H ALT 26 Alkaline Phosphatase 407 H Total Protein 6.0 L Albumin 3.5 Vitamin B12 Folate 09/03/22 07:56 WBC RBC Hgb Hct MCV MCH MCHC RDW Plt Count MPV Sodium Potassium Chloride Carbon Dioxide Anion Gap BUN Creatinine Estim Creat Clear Calc Estimated GFR Glucose POC Capillary Glucose 121 H Calcium Magnesium Total Bilirubin AST ALT Alkaline Phosphatase Total Protein Albumin Vitamin B12 Folate Microbiology 09/01/22 12:14 Blood Blood Culture - Preliminary 09/01/22 12:14 Blood Blood Culture - Preliminary Post-procedural complaints: none Patient Feedback: Patient satisfied with anesthetic care.
[2022-09-03 11:30] LABS: Glucose Point of Care 145 mg/dl (65-105)
--- NOTE | 2022-09-03 12:06 | PM.IMPN ---
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: Code(s): K75.81 - Nonalcoholic steatohepatitis (ZIEGLER); K74.60 - Unspecified cirrhosis of liver Status: Chronic (7) Chronic kidney disease, stage 4 (severe): Code(s): N18.4 - Chronic kidney disease, stage 4 (severe) Status: Acute (8) Acute on chronic diastolic (congestive) heart failure: Code(s): I50.33 - Acute on chronic diastolic (congestive) heart failure Status: Acute (9) Chronic obstructive pulmonary disease: Code(s): J44.9 - Chronic obstructive pulmonary disease, unspecified Status: Acute (10) Bipolar disorder: Qualifiers: Active/Remission status: in full remission Most recent bipolar episode type: most recent episode unspecified type Qualified Code(s): F31.70 - Bipolar disorder, currently in remission, most recent episode unspecified Code(s): F31.9 - Bipolar disorder, unspecified Status: Acute (11) Tremor of both hands: Code(s): R25.1 - Tremor, unspecified Status: Acute Plan The patient presented to the emergency department today for evaluation of increasing shortness of breath over the last several days as well as lower extremity edema that has gotten worse over the past 1 week. She was found to be profoundly anemic and her stool was indeed Hemoccult positive on exam done in the ER. She reports that she had a blood transfusion done several weeks ago as well due to a drop in her hemoglobin. She has a history of small, mild distal esophageal varices and Dr. Moreno has been consulted for possible endoscopy tomorrow. She has been started on IV Protonix 40 milligrams b.i.d. and she will be NPO after midnight.? She will be transfused to a stable hemoglobin. Lasix will be given as she does have some evidence of mild volume overload, likely due to profound anemia.? No evidence of acute decompensated liver failure. Continue lactulose. She had an unresponsive episode on arrival to her room today related to hypoglycemia as her glucose was reportedly in the 30s. Her mentation improved within about 5 minutes of receiving IV dextrose. While she did reportedly have a small right-sided facial droop I suspect that it was related to the hypoglycemia as there is no evidence on exam now to suggest focal deficits. I suspect she was hypoglycemic as she did not receive any food while in the emergency department; she is insulin-dependent. Will continue to monitor her glucose closely this evening and resume basal insulin at an appropriate dose depending on how she trends. Initiate sliding scale insulin, Accu-Cheks, and hypoglycemic protocol. Check hemoglobin A1c. There is no evidence on exam to suggest acute COPD exacerbation and we will continue with her maintenance inhalers. Rescue inhaler available as needed. Renal function is stable on review of previous labs. On review of previous vital signs it is noted that she is frequently bradycardic and she is otherwise stable. Continue beta-leonidas with parameters. She is on levothyroxine thus will check a TSH. The rest of her home medications will be reviewed and resumed as appropriate. This is a 76-year-old female with chronic obstructive pulmonary disease, stroke, hypertension, hyperlipidemia, cirrhosis secondary to fatty liver disease with history of small esophagea
[2022-09-03 16:52] LABS: Glucose Point of Care 128 mg/dl (65-105)
--- NOTE | 2022-09-03 18:16 | PDONCCN ---
HPI - Date of Consult Date/Time: 09/03/22 18:16 Requesting Physician: Orlando Washington MD Primary Care Provider: Domingo Alcocer, DO - Consult Narrative Reason for consult: Macrocytic anemia Narrative: Nisha Sigala is a 76 year old female with history of chronic kidney stage III disease, COPD, stroke, hypertension and type 2 diabetes along with liver cirrhosis came into the hospital from assisted living with shortness of breath and generalized weakness. She denies any bleeding including melena hematochezia. She does have some dark stool and takes iron once a day. In the ER her hemoglobin was 6.7. Patient had chest x-ray done that showed mild pulmonary congestion. Hemoccult stool was positive. She received 1 units of packed red blood cell. EGD was done on September 02 that showed nonbleeding esophageal varices and gastritis. Colonoscopy report from January 2019 showed diverticulosis without bleeding. Other labs showed vitamin B12 level of 505, iron 65 and iron saturation of 17%. Creatinine was 2.1. MCV was elevated at 102.9. She remains tired and fatigued. Denies any other new complaints. She denies any recent weight loss. Review of Systems - Review of Systems All systems reviewed & are unremarkable except as noted in [facility] and [facility] Medical History: Medical History (Last Updated 09/01/22 @ 18:07 by Destiny Bender PA-C) Anemia Anxiety Aortic stenosis Moderate on echocardiogram in November 2021. Arthritis Asthma Bipolar disorder Cerebrovascular accident Chronic diastolic congestive heart failure Onset Date: 12/2019 Chronic kidney disease, stage 4 (severe) Chronic obstructive pulmonary disease PFTs 06/28/2021: Moderate obstructive abnormality, moderate decreased diffusion capacity. 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 Moreno History of partial hysterectomy History of thyroidectomy History of tonsillectomy Family History: Family History (Last Reviewed 09/01/22 @ 17:59 by Destiny Bender PA-C) Sibling Multiple sclerosis Father Acute myocardial infarction, Onset Age: 79 Cerebrovascular accident, Onset Age: 79 Mother Dementia Sibling Acute myocardial infarction, Onset Age: 65 Son Diabetes mellitus Other Depression Family history of arthritis Family history of elevated blood lipids Family history of thyroid disease Hypertension - Social History Social History: Social History (Last Updated 09/01/22 @ 18:00 by Destiny Bender PA-C) Alcohol Use: Alcohol intake: never Substance Use: Substance use: never Others: Spiritual care concerns: No Smoking Status: Smoking status: Former smoker Tobacco type: cigarettes Second hand tobacco smoke exposure: Yes Smoking end date: 11/30/16 Approximate Smoking End Date: 11/30/2014 Smoking Pack-years: Smoking packs per day: 1.5 Smoking cigarettes per day: 30.0 Years smoked: 25 Smokin
[2022-09-03] MEDS: CYANOCOBALAMIN INJ 1,000 MCG/ML VIAL 1000 MCG IM (18:42)
[2022-09-03 19:03] LABS: IFOB Positive Control Positive; Immunochemical Fecal Occult Bl Negative (N)
[2022-09-03] MEDS: traZODone HCL 50 MG TABLET 300 MG PO (20:10)
[2022-09-03] MEDS: ROSUVASTATIN 10 MG TABLET 20 MG PO (20:11)
[2022-09-03] MEDS: EPOETIN ALFA-EPBX 20,000 UNITS/ML VIAL 20000 UNITS SUB-Q (20:11)
[2022-09-03] MEDS: MELATONIN 3 MG TABLET PO (20:12)
[2022-09-03] MEDS: BENZONATATE 100 MG CAPSULE PO (20:15)
[2022-09-03 21:37] LABS: Glucose Point of Care 155 mg/dl (65-105)
[2022-09-04 04:53] VITALS: BP 102/48; PULSE 54; RESP 20; TEMP 36.6; O2SAT 94
[2022-09-04] MEDS: BENZONATATE 100 MG CAPSULE PO (05:02)
[2022-09-04 06:01] LABS: Hematocrit 23.6 % (37.0-47.0); Hemoglobin 7.2 g/dL (12.0-15.0); Immature Platelet Fraction Pct 4.9 % (0.9-11.2); Mean Corpuscular HGB Conc 30.5 g/dl (32-36); Mean Corpuscular Hemoglobin 31.4 pg (26-34); Mean Corpuscular Volume 103.1 fl (80-100); Mean Platelet Volume 10.8 fl (7.4-10.4); Platelet Count Result 106 k/mm3 (150-375); Red Blood Count 2.29 M/mm3 (4.2-5.4); Red Cell Distribution Width 17.7 % (11.5-14.5)
[2022-09-04 06:02] LABS: Alanine Aminotransferase 24 U/L (6-35); Albumin Level 3.4 g/dL (3.5-5.1); Alkaline Phosphatase 366 U/L (38-126); Anion Gap 11 mmol/L (8-16); Aspartate Amino Transferase 45 U/L (14-36); Bilirubin,Total 0.3 mg/dL (0.2-1.3); Blood Urea Nitrogen 26 mg/dL (7-17); Carbon Dioxide 23 mmol/L (22-30); Chloride 104 mmol/L (98-107); Estimated CRCL calculation 17 ml/min; Estimated Glomerular Filt Rate 20; Glucose 120 mg/dL (65-110); Magnesium 2.1 mg/dL (1.6-2.3); Potassium 4.4 mmol/L (3.4-5.0); Sodium 138 mmol/L (137-145)
[2022-09-04 06:03] LABS: Ammonia 25 umol/L (9-30)
[2022-09-04] MEDS: LEVOTHYROXINE SODIUM 125 MCG TABLET PO (06:30)
[2022-09-04 07:54] LABS: Glucose Point of Care 118 mg/dl (65-105)
[2022-09-04 08:00] VITALS: O2SAT 94
[2022-09-04] MEDS: amLODIPine BESYLATE 5 MG TABLET 10 MG PO (08:29)
[2022-09-04] MEDS: lamoTRIgine 50 MG TABLET 150 MG PO (08:30)
[2022-09-04] MEDS: LACTULOSE 20 GM/30 ML UDC PO (08:30)
[2022-09-04] MEDS: FUROSEMIDE 40 MG TABLET PO (08:30)
[2022-09-04] MEDS: ESCITALOPRAM OXALATE 5 MG TABLET PO (08:30)
[2022-09-04] MEDS: GABAPENTIN 300 MG CAPSULE 600 MG PO ×3 (08:30→17:05)
[2022-09-04] MEDS: FERROUS SULFATE 324 MG TABLET PO (08:30)
[2022-09-04 08:32] VITALS: PULSE 62
[2022-09-04] MEDS: PROPRANOLOL HCL 10 MG TABLET PO ×2 (08:32→17:06)
[2022-09-04] MEDS: PANTOPRAZOLE SODIUM IV 40 MG VIAL IV PUSH ×2 (08:43→17:08)
[2022-09-04 09:00] VITALS: O2SAT 98
[2022-09-04] MEDS: UMECLIDINIUM/VILANTEROL 62.5-25 MCG ELLIPTA 1 PUFF INHALATION (09:00)
[2022-09-04 11:59] LABS: Glucose Point of Care 145 mg/dl (65-105)
--- NOTE | 2022-09-04 13:56 | WPDNEURCNPN ---
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: Code(s): K75.81 - Nonalcoholic steatohepatitis (ZIEGLER); K74.60 - Unspecified cirrhosis of liver Status: Chronic (4) Type 2 diabetes mellitus: Code(s): E11.9 - Type 2 diabetes mellitus without complications Status: Chronic (5) Diabetes mellitus: Code(s): E11.9 - Type 2 diabetes mellitus without complications Status: Acute (6) Bipolar disorder: Qualifiers: Active/Remission status: in full remission Most recent bipolar episode type: most recent episode unspecified type Qualified Code(s): F31.70 - Bipolar disorder, currently in remission, most recent episode unspecified Code(s): F31.9 - Bipolar disorder, unspecified Status: Acute Plan as discussed she be continued on all the medication and will be followed in the office in 6 Consult date: 09/04/22 HPI: Nisha Sigala is a 76 year old female Admitted to the hospital through the emergency room where she was brought by EMS with ongoing history of 1. Congestive heart failure 2. COPD 3. Diabetes mellitus. Patient had been experiencing increasing shortness of breath without chest pain or any general symptomatology of GI initial evaluation by EMS was consistent of audible wheezing and mild edema of both lower extremities. Patient had been receiving E Cytomel a prime 5 mg daily along with trazodone 300 mg at night insulin 9units subcu q.h.s. hydroxyzine 25 mg t.i.d. p.r.n. and gabapentin 600 mg 3 times a day, she has multiple allergies as outlined has an ongoing history of bipolar disorder in addition to stroke and diastolic congestive heart failure and chronic renal disease stage IV patient has also been followed in our office on intermittent basis initial vital signs were normal routine lab was also not significant except BUN of 31 creatinine 2.10 lactic acid only 1.4 and EKG normal with no evidence of atrial fibrillation though it was bradycardiac she was negative for starts COVID, the CT scan of the head revealed no abnormalities except old left insular and left basal ganglia infarct with mild atrophy involving particularly the white matter Doppler studies of the lower extremities were negative, the GI workup has revealed nonbleeding esophageal varices with gastritis has also been seen by Hematology for macrocytic anemia she has received 1unit of packed cells with positive Hemoccult before has been found to have nonbleeding esophageal varices, diverticulosis on colonoscopy and considering macrocytic anemia and thrombocytopenia with cirrhosis of the liver chronic renal disease stage III 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 Arthritis Asthma Bipolar disorder Cerebrovascular accident Chronic diastolic congestive heart failure (12/2019) Chronic kidney disease, stage 4 (severe) Chronic obstructive pulmonary disease PFTs 06/28/2021: Moderate obstructive abnormality, moderate decreased diffusion capacity. Depression Diabetic peripheral neuropathy Diastolic dysfunction Echocardiogram 05/2021: EF 65-70%, grade 1 diastolic dysfunction, E/E elevated, global longitudinal strain mildly abnormal, moderate left atrial enlargement, moderate aortic valve scleros
[2022-09-04 14:00] VITALS: BP 120/42; PULSE 51; RESP 12; TEMP 36.6; O2SAT 95
--- NOTE | 2022-09-04 16:20 | PM.DS ---
DS: Admitting Diagnosis Discharge Date Admitting Diagnosis (1) Acute on chronic anemia: ?Code(s): D64.9 - Anemia, unspecified ?Status:?Acute (2) Heme positive stool: ?Code(s): R19.5 - Other fecal abnormalities ?Status:?Acute (3) Hypoglycemia: ?Code(s): E16.2 - Hypoglycemia, unspecified ?Status:?Acute (4) Type 2 diabetes mellitus: ?Code(s): E11.9 - Type 2 diabetes mellitus without complications ?Status:?Chronic (5) Sinus bradycardia: ?Code(s): R00.1 - Bradycardia, unspecified ?Status:?Acute (6) Hypothyroidism: ?Qualifiers: ?Hypothyroidism type:?acquired? 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: ?Code(s): K75.81 - Nonalcoholic steatohepatitis (ZIEGLER); K74.60 - Unspecified cirrhosis of liver ?Status:?Chronic (8) Chronic kidney disease, stage 4 (severe): ?Code(s): N18.4 - Chronic kidney disease, stage 4 (severe) ?Status:?Acute (9) Acute on chronic diastolic (congestive) heart failure: ?Code(s): I50.33 - Acute on chronic diastolic (congestive) heart failure ?Status:?Acute (10) Chronic obstructive pulmonary disease: ?Code(s): J44.9 - Chronic obstructive pulmonary disease, unspecified ?Status:?Acute DS: Discharge Diagnosis Discharge Diagnosis (1) Anemia in chronic kidney disease (CKD): Code(s): N18.9 - Chronic kidney disease, unspecified; D63.1 - Anemia in chronic kidney disease Status: Acute (2) Generalized weakness: Code(s): R53.1 - Weakness Status: Acute (3) Macrocytosis: Code(s): D75.89 - Other specified diseases of blood and blood-forming organs Status: Acute (4) Esophageal varices: Code(s): I85.00 - Esophageal varices without bleeding Status: Acute (5) Acute on chronic diastolic (congestive) heart failure: Code(s): I50.33 - Acute on chronic diastolic (congestive) heart failure Status: Acute (6) Chronic kidney disease, stage 4 (severe): Code(s): N18.4 - Chronic kidney disease, stage 4 (severe) Status: Acute (7) 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: Code(s): K75.81 - Nonalcoholic steatohepatitis (ZIEGLER); K74.60 - Unspecified cirrhosis of liver Status: Chronic (8) Type 2 diabetes mellitus: Code(s): E11.9 - Type 2 diabetes mellitus without complications Status: Chronic (9) Hypoglycemia: Code(s): E16.2 - Hypoglycemia, unspecified Status: Acute (10) Gastroesophageal reflux disease: Code(s): K21.9 - Gastro-esophageal reflux disease without esophagitis Status: Acute (11) Chronic obstructive pulmonary disease: Code(s): J44.9 - Chronic obstructive pulmonary disease, unspecified Status: Acute (12) Cirrhosis of liver with ascites: Qualifiers: Hepatic cirrhosis type: unspecified hepatic cirrhosis Qualified Code(s): K74.60 - Unspecified cirrhosis of liver; R18.8 - Other ascites Code(s): K74.60 - Unspecified cirrhosis of liver; R18.8 - Other ascites Status: Chronic (13) Diabetes mellitus: Code(s): E11.9 - Type 2 diabetes mellitus without complications Status: Acute (14) Sinus bradycardia: Code(s): R00.1 - Bradycardia, unspecified Status: Acute (15) Hypothyroidism: Qualifiers: Hypothyroidism type: acquired Qualified Code(s): E03.9 - Hypothyroidism, unspecified Code(s): E03.9 - Hypothyroidism, unspecified Status: Acute (16) Bipolar disorder: Qualifiers: Active/Remission status: in full remission Most recent bipolar episode type: most recent episode unspecified type Qualified Code(s): F31.70 - Bipolar disorder, currently in remission, most recent episode unspecified Code(s): F31.9 - Bipolar disorder, unspecified Status: Acute (17) Tremor of both hands:
[2022-09-04 16:41] LABS: Glucose Point of Care 152 mg/dl (65-105)
[2022-09-04 16:55] LABS: EDCOVIDSCREEN Negative (Negative)
--- NOTE | 2022-09-04 17:03 | PCCCNOTE ---
Covid Negative, fax'd negative results to [facility].
[2022-09-04 17:06] VITALS: PULSE 56
[2022-09-07 17:57] LABS: Methylmalonic Acid 915 nmol/L (87-318)
[2022-09-08 19:22] LABS: Soluble Transferrin Receptor 2.48 mg/L (0.76-1.76)
== END 2022-09-04 17:55 | DRG 811 ==
LOC: ANHED 14:28 → ANH3MEDSUR 14:55 → ANHIMU 23:27 → ANH3MEDSUR 09-02 17:57
PROVIDERS: Emergency Medicine; Family Medicine; Internal Medicine Gastroenterology; Internal Medicine Hematology & Oncology; Physician Assistant; Admitting Provider Internal Medicine; Emergency Provider General Practice; PCP Internal Medicine; Visit Provider Hospitalist
PROC: 0DJ08ZZ Inspection of Upper Intestinal Tract, Via Natural or Artificial Opening Endoscopic (ICD-10-PCS; CPT 43235; principal; 2022-09-02 12:30)
DX: D53.9 Nutritional anemia, unspecified (principal); I50.33 Acute on chronic diastolic (congestive) heart failure; I13.0 Hypertensive heart and chronic kidney disease with heart failure and stage 1 through stage 4 chronic kidney disease, or unspecified chronic kidney disease; R18.8 Other ascites; I85.00 Esophageal varices without bleeding; E11.22 Type 2 diabetes mellitus with diabetic chronic kidney disease; N18.32 Chronic kidney disease, stage 3b; D63.1 Anemia in chronic kidney disease; D69.59 Other secondary thrombocytopenia; E11.42 Type 2 diabetes mellitus with diabetic polyneuropathy; Z20.822 Contact with and (suspected) exposure to COVID-19; K29.70 Gastritis, unspecified, without bleeding; K75.81 Nonalcoholic steatohepatitis (NASH); K74.60 Unspecified cirrhosis of liver; I35.0 Nonrheumatic aortic (valve) stenosis; M19.90 Unspecified osteoarthritis, unspecified site; K21.9 Gastro-esophageal reflux disease without esophagitis; F31.9 Bipolar disorder, unspecified; J44.9 Chronic obstructive pulmonary disease, unspecified; K72.90 Hepatic failure, unspecified without coma; E78.5 Hyperlipidemia, unspecified; E03.9 Hypothyroidism, unspecified; K58.9 Irritable bowel syndrome, unspecified; R29.810 Facial weakness; E11.649 Type 2 diabetes mellitus with hypoglycemia without coma; M81.0 Age-related osteoporosis without current pathological fracture; R19.5 Other fecal abnormalities; R25.1 Tremor, unspecified; R00.1 Bradycardia, unspecified; Z96.1 Presence of intraocular lens; E66.9 Obesity, unspecified; Z68.32 Body mass index [BMI] 32.0-32.9, adult; Z90.49 Acquired absence of other specified parts of digestive tract; Z86.73 Personal history of transient ischemic attack (TIA), and cerebral infarction without residual deficits; Z98.42 Cataract extraction status, left eye; Z98.41 Cataract extraction status, right eye; Z87.891 Personal history of nicotine dependence
CPT/HCPCS: 36415; 36430; 36600; 71045; 73502; 76700; 80053; 82140; 82274; 82375; 82607; 82746; 82805; 82948; 83036; 83050; 83605; 83735; 83880; 83921; 84238; 84439; 84443; 84480; 84484; 85025; 85027; 85055; 85610; 85730; 86850; 86870; 86880; 86900; 86901; 86902; 86906; 86922; 86971; 86972; 87040; 87147; 87181; 87186; 87426; 88305; 93005; 93970; 94640; 97165; 99285; A9270; C9113; C9803; J0696; J1940; J2704; J3420; J7050; J7120; P9016; Q5105; U0003; U0005

== ENCOUNTER 2022-09-14 10:46 | Observation (INO) | payer MEDICARE, MEDICAID, SELFPAY ==
[2022-09-14] VITALS (10 sets, daily range): BP systolic 114–133; BP diastolic 37–62; PULSE 43–63; RESP 9–19; TEMP 36.4–36.9; O2SAT 93–100
--- NOTE | ~2022-09-14 | US_ITS ---
EXAMINATION: US abdomen complete DATE: 09/15/2022 15:18 INDICATION: ascites, LUQ pain TECHNIQUE: Multiple grayscale and Doppler ultrasound images of the abdomen were obtained. COMPARISON: 09/02/2022. FINDINGS: The visualized portions of the pancreas are normal. The liver is mildly enlarged with susana l echogenicity and coarse echotexture. Surface nodularity. Normal hepatopetal flow in the main portal vein. Cholecystectomy. The common bile duct measures 7 mm. The visualized portions of the aorta and inferior vena cava are normal. The right kidney measures 8.5 x 3.6 x 3.4. The left kidney measures 8.9 x 3.9 x 3.7. The kidneys demo nstrate cortical thinning and increased parenchymal echogenicity. There is no hydronephrosis. The spl een is normal in appearance and measures 13.5 cm. IMPRESSION: Hepatosplenomegaly. Cirrhotic liver changes. Bilateral mild renal atrophy and evidence of medical eddie al disease. Reviewed, dictated and finalized at location K. IMPRESSION: Hepatosplenomegaly. Cirrhotic liver changes. Bilateral mild renal atrophy and e vidence of medical renal disease.
--- NOTE | ~2022-09-14 | XR_ITS ---
EXAMINATION: XR knee LT min 4V DATE: 09/14/2022 11:30 INDICATION: Left knee pain post fall TECHNIQUE: Anteroposterior, 2 oblique and crosstable lateral views of the left knee were obtained COMPARISON: None. FINDINGS: Alignment is normal. No fracture. Joint spaces appear normal on nonweightbearing imaging. No joint e ffusion/layering lipohemarthrosis. Mild prepatellar soft tissue swelling. IMPRESSION: 1. No left knee joint effusion or osseous abnormality Reviewed, dictated and finalized at location A.
--- NOTE | ~2022-09-14 | BM_ITS ---
EXAMINATION: CCL bone marrow asp w bx diag ORDER COMPLETED DATE: 09/16/2022 09:37 INDICATION: Macrocytic anemia and thrombocytopenia TECHNIQUE: A time-out was performed to verify the patient's name, date of , and procedure to b e performed. The procedure including the risks and benefits was discussed with the patient. Risks dis cussed included bleeding, infection, nerve injury and allergic reaction. The patient understood the r isks and agreed to proceed. The skin overlying the right posterior iliac spine was prepped and draped in usual sterile fashion. Anesthetic was administered with 1% lidocaine subcutaneously. Moderate co nscious sedation was achieved with 50 mcg fentanyl IV. An 11 gauge needle was inserted into the ilium with fluoroscopic guidance. Unsuccessful attempted bone marrow aspiration and 2 different locations. An 8 gauge needle was then inserted into the ilium with fluoroscopic guidance. 1 longer into short c ore biopsy specimens were obtained. The longer in one of the 2 shorter core biopsy specimens were ganesh flori in formalin. The third shorter core biopsy specimens was retained in a sterile container for abdelrahman ow stairs. The needle was removed and the entry site was cleaned and dressed. There were no immediat e complications. A total of 72 fluoroscopic images were recorded. Fluoroscopy exposure time was 0.1 m inutes. FINDINGS: Real-time fluoroscopy demonstrates the biopsy needle tip overlying the right posterior adam c spine. IMPRESSION: 1. Successful fluoroscopic guided bone marrow biopsy. Reviewed, dictated and finalized at location A.
--- NOTE | ~2022-09-14 | XR_ITS ---
EXAM: XR abdomen/kub 1V DATE: 09/14/2022 20:06 HISTORY: abdominal distention . COMPARISON: 08/22/2021. FINDINGS: Senescent change in the lungs. Cholecystectomy clips. Normal bowel gas pattern. Enlarged l iver and spleen. No abnormal abdominal calcification. Degenerative changes in the lumbar spine. IMPRESSION: Hepatosplenomegaly. No radiographic evidence of obstruction or ileus. Reviewed, dictated and finalized at location K. IMPRESSION: Hepatosplenomegaly. No radiographic evidence of obstruction or ileu s.
--- NOTE | ~2022-09-14 | XR_ITS ---
EXAMINATION: XR chest 2V DATE: 09/14/2022 11:29 INDICATION: Weakness TECHNIQUE: frontal and lateral views of the chest were obtained. COMPARISON: Chest radiograph dated 09/04/2022 FINDINGS: Unchanged mild elevation of the left hemidiaphragm. Increased interstitial pattern in the dependent l ower lung zones consistent with mild pulmonary edema. No pleural effusion or pneumothorax. Cardiomega ly. Coronary artery atherosclerosis. Mild thoracic spondylosis. IMPRESSION: 1. Likely congestive heart failure with cardiomegaly and mild pulmonary edema in the dependent lower lungs. Reviewed, dictated and finalized at location A. IMPRESSION: 1. Likely congestive heart failure with cardiomegaly and mild pulmonary edema i n the dependent lower lungs.
--- NOTE | ~2022-09-14 | XR_ITS ---
EXAMINATION: XR chest 1V portable DATE: 09/15/2022 11:23 INDICATION: Shortness of breath. TECHNIQUE: A single frontal view of the chest was obtained. COMPARISON: Chest 2 views 09/14/2022, chest CT 12/09/2021 FINDINGS: There is a diffuse interstitial pattern, consistent with mild pulmonary edema. No pleural e ffusion or pneumothorax. Cardiomegaly is noted. Surgical clips in the right upper quadrant are likely from cholecystectomy. IMPRESSION: 1. Mild pulmonary edema. 2. Cardiomegaly. Reviewed, dictated and finalized at location B.
--- NOTE | 2022-09-14 10:49 | ECG_ITS ---
Measurements Intervals [place] Rate: 46 P: 51 KS: 228 QRS: -45 QRSD: 161 T: -3 QT: 521 QTc: 456 Interpretive Statements SINUS BRADYCARDIA WITH FIRST DEGREE AV BLOCK BASELINE ARTIFACT LEFT AXIS DEVIATION RIGHT BUNDLE BRANCH BLOCK ABNORMAL ECG COMPARED TO ECG 09/01/2022 12:01:00 FIRST DEGREE AV BLOCK NOW PRESENT Electronically Signed On 09-14-2022 15:47:58 CDT by Bart Castro M.D.
--- NOTE | 2022-09-14 10:51 | ED.GENADULT ---
HPI - General Adult General Chief complaint: Weakness <EBONY Pierre Last Filed: 09/14/22 19:13> Stated complaint: gen weakness and bradycardia, glf x 2 today <EBONY Pierre Last Filed: 09/14/22 19:13> Time Seen by Provider: 09/14/22 10:48 <EBONY Pierre Last Filed: 09/14/22 19:13> Source: patient and old records reviewed <EBONY Pierre Last Filed: 09/14/22 19:13> Mode of arrival: EMS <EBONY Pierre Last Filed: 09/14/22 19:13> Limitations: no limitations <EBONY Pierre Last Filed: 09/14/22 19:13> History of Present Illness HPI narrative: Patient is a 76 y/o female, with PMHx of liver cirrhosis, chronic kidney stage 3 disease, COPD, type 2 diabetes, hypertension, who presents to the ED via EMS with c/o generalized weakness. Patient lives at [facility] assisted [facility]. She reports she fell twice this morning. She was feeling lightheaded but also not using her walker as she usually does. She states she fell onto her hands and knees. Complains of some pain to her left knee. Began to feel weak afterwards and asked for EMS to be called. Denies HI or LOC. Denies any other areas of pain at this time. No wrist pain, headache, vision changes, CP, SOB, abdominal pain, N/V. Patient does mention having a cough for the past 5 days. <EBONY Pierre Last Filed: 09/14/22 19:13> Related Data Home medications: Home Medications Medication Instructions Recorded Confirmed asenapine maleate 5 mg sublingual 5 mg sublingual Q12H 01/04/20 09/14/22 tablet (Saphris) escitalopram oxalate 5 mg tablet 5 mg PO DAILY 08/21/21 09/14/22 rosuvastatin 20 mg tablet 20 mg PO QHS 08/21/21 09/14/22 trazodone 100 mg tablet 300 mg PO HS 08/21/21 09/14/22 glucagon HCl 1 mg solution for 1 mg subcut Q20M PRN Hypoglycemia 02/13/22 09/14/22 injection (Glucagon (HCl) Emergency Kit) sodium chloride 0.65 % nasal spray 1 spray intranasal BID PRN Dry 02/13/22 09/14/22 aerosol (Saline Mist) Nasal Passages insulin glargine 100 unit/mL (3 9 unit subcut QHS 05/17/22 09/14/22 mL) subcutaneous pen (Lantus Solostar U-100 Insulin) ferrous sulfate 325 mg (65 mg 325 mg PO DAILY 07/18/22 09/14/22 iron) tablet (FeroSul) furosemide 40 mg tablet 40 mg PO DAILY 07/18/22 09/14/22 gabapentin 600 mg tablet 600 mg PO TID 07/18/22 09/14/22 hydroxyzine HCl 25 mg tablet 25 mg PO TID PRN Itching 08/25/22 09/14/22 nystatin-triamcinolone 100,000 1 applic topical BID PRN Itching 08/25/22 09/14/22 unit/g-0.1 % topical cream acetaminophen 500 mg tablet 1,000 mg PO BID PRN Pain 09/14/22 09/14/22 <Loreta Li PA-C - Last Filed: 09/14/22 19:13> Allergies/adverse reactions: Allergies Allergy/AdvReac Type Severity Reaction Status Date / Time alendronate sodium Allergy Unknown Unknown Verified 09/14/22 12:32 amantadine Allergy Unknown Unknown Verified 09/14/22 12:32 benztropine Allergy Unknown Unknown Verified 09/14/22 12:32 chlorpromazine Allergy Unknown Unknown Verified 09/14/22 12:32 levofloxacin Allergy Unknown Unknown Verified 09/14/22 12:32 Macrolide Antibiotics Allergy Unknown UNKNOWN Verified 09/14/22 12:32 REACTION mirtazapine Allergy Unknown Unknown Verified 09/14/22 12:32 Quinolones Allergy Unknown Unknown Verified 09/14/22 12:32 topiramate Allergy Unknown Unknown Verified 09/14/22 12:32 <Loreta Li PA-C - Last Filed: 09/14/22 19:13> Review of Systems Review of Systems: CONSTITUTIONAL: Denies fever, chills, or sweats. EYES: Denies visual changes. CARDIOVASCULAR: Denies chest pain. RESPIRATORY: Reports cough. Denies dyspnea. GASTROINTESTINAL: Denies abdominal pain, nausea, vomiting, or diarrhea. MUSCULOSKELETAL: Reports L knee pain. Denies wrist pain, back pain. NEUROLOGIC: Reports lightheadedness, generalized weakness. Denies HI, LOC, headache, numbness, or focal weakness. <Rac
[2022-09-14 11:06] LABS: Basophils Absolute Auto 0.1 K/mm3 (0.0-0.1); Basophils Percent Auto 0.9 % (0.2-1.2); Eosinophils Absolute Auto 0.2 K/mm3 (0-0.3); Eosinophils Percent Auto 3.4 % (0-4.4); Immature Granulocyte Absolute 0.07 K/mm3 (0.00-0.031); Immature Granulocyte Percent A 1.3 % (0-0.5); Lymphocytes Absolute Auto 1.37 K/mm3 (0.9-3.2); Lymphocytes Percent Auto 24.6 % (18.3-44.2); Mean Corpuscular HGB Conc 28.9 g/dl (32-36); Mean Corpuscular Hemoglobin 30.9 pg (26-34); Mean Corpuscular Volume 106.8 fl (80-100); Mean Platelet Volume 10.6 fl (7.4-10.4); Monocytes Absolute Auto 0.4 K/mm3 (0.1-0.6); Monocytes Percent Auto 7.4 % (2.6-8.5); Neutrophils Absolute Auto 3.5 K/mm3 (1.3-6.7); Neutrophils Percent Auto 62.4 % (45.5-73.1); Nucleated Red Blood Cells Perc 0.7 % (0.0-0.2); Platelet Count Result 134 k/mm3 (150-375); Red Blood Count 1.62 M/mm3 (4.2-5.4); Red Cell Distribution Width 17.7 % (11.5-14.5); White Blood Count 5.6 K/mm3 (4.5-10.0)
[2022-09-14 11:15] LABS: Hematocrit 17.3 % (37.0-47.0)
[2022-09-14 11:19] LABS: Alanine Aminotransferase 26 U/L (6-35); Albumin Level 3.8 g/dL (3.5-5.1); Alkaline Phosphatase 315 U/L (38-126); Anion Gap 15 mmol/L (8-16); Aspartate Amino Transferase 45 U/L (14-36); Bilirubin,Total 0.3 mg/dL (0.2-1.3); Blood Urea Nitrogen 47 mg/dL (7-17); Calcium 8.4 mg/dL (8.4-10.2); Carbon Dioxide 20 mmol/L (22-30); Chloride 105 mmol/L (98-107); Estimated Glomerular Filt Rate 23; Glucose 136 mg/dL (65-110); Potassium 4.4 mmol/L (3.4-5.0); Sodium 140 mmol/L (137-145)
[2022-09-14 11:22] LABS: Platelet Estimate Adequate (Adequate)
[2022-09-14 11:29] LABS: Anisocytosis 2+ (NORMAL); Hypochromasia 1+ (NORMAL); Macrocytosis 1+ (NORMAL); Schistocytes None Seen (NORMAL)
[2022-09-14 12:28] LABS: NT Pro B Type Natriuretic Pept 3440 pg/mL (5-100)
[2022-09-14 12:31] LABS: Troponin I 0.016 ng/mL (0.000-0.034)
[2022-09-14] MEDS: FUROSEMIDE INJ 40 MG/4 ML VIAL 20 MG IV PUSH (12:38)
[2022-09-14 12:43] LABS: Add Urine Microscopic? YES; Appearance Urine Clear (Clear); Bilirubin Urine Negative (Negative); Blood Urine 1+ (Negative); Color Urine Yellow (Yellow); Glucose Urine UA Negative (Negative); Ketones Urine Negative (Negative); Leukocyte Esterase Ur Negative LEU/UL (Negative); Nitrate Urine Negative (Negative); Protein Urine Negative (Negative); Squamous Epithelial Cell Urine Rare /hpf (Few); Urobilinogen Urine Negative mg/dL (<2.0); WBC Clumps Urine Present /HPF; WBC Urine 0-3 /hpf
[2022-09-14 12:45] LABS: Ammonia 18 umol/L (9-30)
[2022-09-14 13:02] LABS: Iron 43 ug/dL (37-170)
[2022-09-14] MEDS: PANTOPRAZOLE SODIUM IV 40 MG VIAL IV PUSH (13:08)
[2022-09-14 13:11] LABS: Percent Iron Saturation 10 % (20-50)
[2022-09-14 13:12] LABS: Lactate Dehydrogenase 221 U/L (120-246)
--- NOTE | 2022-09-14 13:15 | PM.IMHP ---
H&P: HPI History of Present Illness Date/Time: 09/14/22 13:15 Chief Complaint: Weakness and falls. Narrative: This is a 76-year-old female with history of stroke, chronic obstructive pulmonary disease, hypertension, hyperlipidemia, cirrhosis secondary to fatty liver disease with history of small esophageal varices, hepatic encephalopathy, chronic kidney disease, type 2 diabetes mellitus, hypothyroidism, diastolic congestive heart failure, and anemia who presented to the emergency department for evaluation of generalized weakness leading to several falls. She was hospitalized from 09/01/2022 to 09/04/2022 with symptomatic acute on chronic anemia. EGD done per Dr. Moreno showed nonbleeding esophageal varices and gastritis. She was also seen by Dr. Hartman who is concerned that the patient may have underlying myelodysplastic syndrome and he started her on iron ferrous sulfate, vitamin B12, and a biweekly Procrit injections with plans for possible bone marrow biopsy depending on how she responds. She has been doing okay since discharge and is back to assisted living at [facility]. Other than a mild nonproductive cough the last several days she has been doing okay however today she was feeling weak and she sustained 2 ground level falls when trying to get out of her recliner. She reports falling because her legs were just not strong enough to hold her up, with 1 of the fall she landed on her buttocks in the other she fell forward onto her knees. She returned to the emergency department with weakness and once again she was found to be profoundly anemic with a hemoglobin and hematocrit of 5.0 in 17.3% respectively and she is being admitted in this setting. At the time my evaluation she is resting comfortably and is awaiting blood transfusion which is taking a bit more time as she has antibodies. She complains of some mild discomfort in the left knee but her imaging was negative. She continues to have occasional dark stools but she is not certain if that is due to her iron supplementation or if she has blood in her stool. She has noticed that her abdomen is a bit distended and she has a fullness discomfort in the left upper quadrant but nothing significant. Her appetite has been okay and she denies nausea and vomiting. No lightheadedness or dizziness. She denies chest and pleuritic pain. She has had some shortness of breath with exertion and has been wheezing a bit the last couple of days. She also has a mild, nonproductive cough. No fever, chills, or sweats. No sick contacts. Review of Systems Review of Systems: Twelve systems were reviewed and are negative except for as per HPI. FORMERLY [facility], [facility] Past Medical History Medical History Anemia Anxiety Aortic stenosis Moderate on echocardiogram in November 2021. Arthritis Asthma Bipolar disorder Cerebrovascular accident Chronic diastolic congestive heart failure (12/2019) Chronic kidney disease, stage 4 (severe) Chronic obstructive pulmonary disease PFTs 06/28/2021: Moderate obstructive abnormality, moderate decreased diffusion capacity. 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
[2022-09-14 13:26] LABS: Hematocrit 17.1 % (37.0-47.0)
--- NOTE | 2022-09-14 14:00 | ADMGEN ---
This patient, Nisha Sigala, was admitted to Medical Room 254-01. Patient/family oriented to hospital policies and general routines including ID bracelet, bed and alarms, visiting hours, pain management, procedures, bathroom and other care routines, personal items, smoking policy, room service/diet, and visiting hours. Information on how to activate the Rapid Response Team has been discussed. Patient/Family are encouraged to report perceived risks to care and to ask questions if they do not understand what they are told or what they should do.
--- NOTE | 2022-09-14 15:35 | PC.NURSE ---
[id number] Dr Moreno called to consult. [facility]/US
[2022-09-14 17:32] LABS: Glucose Point of Care 125 mg/dl (65-105)
[2022-09-14 19:43] LABS: Hemoglobin 5.5 g/dL (12.0-15.0)
[2022-09-14 19:44] LABS: Hematocrit 18.4 % (37.0-47.0)
[2022-09-14] MEDS: MELATONIN 3 MG TABLET PO (21:54)
[2022-09-14] MEDS: ROSUVASTATIN 10 MG TABLET 20 MG PO (21:54)
[2022-09-14] MEDS: ACETAMINOPHEN 500 MG TABLET 1000 MG PO (21:55)
[2022-09-14] MEDS: traZODone HCL 50 MG TABLET 300 MG PO (21:55)
[2022-09-14] MEDS: hydrOXYzine HCL 25 MG TABLET PO (21:55)
[2022-09-14] MEDS: INSULIN GLARGINE (*BKC) 100 UNITS/ML 9 UNITS SUB-Q (21:59)
[2022-09-14 23:02] LABS: Glucose Point of Care 134 mg/dl (65-105)
[2022-09-14] MEDS: SODIUM CHLORIDE 0.9% IV 250 ML 30 ML IV CONT (23:35)
[2022-09-15] VITALS (17 sets, daily range): BP systolic 114–154; BP diastolic 35–50; PULSE 50–60; RESP 12–22; TEMP 36.2–37.1; O2SAT 94–100
[2022-09-15] MEDS: FUROSEMIDE INJ 40 MG/4 ML VIAL 20 MG IV PUSH (04:41)
[2022-09-15] MEDS: LEVOTHYROXINE SODIUM 125 MCG TABLET PO (05:43)
--- NOTE | 2022-09-15 06:55 | WPDGICN ---
Assessment and Plan Assessment and plan (1) Acute on chronic anemia: Code(s): D64.9 - Anemia, unspecified Status: Acute Assessment and Plan: No evidence of active bleeding despite the sudden drop in hemoglobin. Her stool was Hemoccult negative a few days ago. I will recheck it. She had been seen by Dr. Hartman during her recent hospitalization but has not yet followed up with him in the office. His feelings were that she may have a bone marrow issue, as she does also have thrombocytopenia which however could also be in part due to her liver disease. (2) Generalized weakness: Code(s): R53.1 - Weakness Status: Acute Assessment and Plan: Likely this is all secondary to her severe anemia (3) Macrocytosis: Code(s): D75.89 - Other specified diseases of blood and blood-forming organs Status: Acute Assessment and Plan: being investigated by Hematology. She does have normal B12 and folic acid levels (4) Esophageal varices: Code(s): I85.00 - Esophageal varices without bleeding Status: Acute Assessment and Plan: very recent EGD showed small varices with no evidence of bleeding. She does continue to take propranolol 10 mg b.i.d. 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 She states that she had seen a liver specialist at sometime in [place] but more recently was seen someone in [place]. GI Consult Note Consult date/time: 09/15/22 06:55 HPI: Nisha Sigala is a 76 year old female who was just here a week or so ago for severe anemia. She has required transfusion several times. Twice in last month. She has been evaluated in the past from a gastrointestinal standpoint. She had EGD and colonoscopy within the past year and previously had had studies including I believe a capsule study that were negative. she was seen by Hematology-Oncology last week and arrangements are made for office follow-up to investigate her elevated MCV and possible bone marrow problems. Stool Hemoccult done last week was negative. She has seen no evidence of blood her stools. An EGD that did last year showed small esophageal varices with no evidence of recent bleeding. She presents to the emergency room from her assisted living center because of weakness and falling. She is found to be again anemic. Her hemoglobin was 7.2 last week and is now 5.0. She has been transfused up to 8.4. Her MCV remains elevated And is higher on this admission. she is known cirrhotic. EGD last admission showed small esophageal varices with no sign of bleeding. Review of Systems Review of Systems: All systems reviewed & are unremarkable except as noted in HPI and below PMFSH Past Medical History Medical History Anemia Anxiety Aortic stenosis Moderate on echocardiogram in November 2021. Arthritis Asthma Bipolar disorder Cerebrovascular accident Chronic diastolic congestive heart failure (12/2019) Chronic kidney disease, stage 4 (severe) Chronic obstructive pulmonary disease PFTs 06/28/2021: Moderate obstructive abnormality, moderate decreased diffusion capacity. Depression Diabetic peripheral neuropathy Diastolic dysfunction Echocardiogram 05/2021: EF 65-70%, grade 1 diastolic dysfunction, E/E elevated, global longitudinal strain mildly abnormal, moderate left atrial enlargement, moderate aortic valve sclerosis, mild aortic valve stenosis with peak velocity 239, mean gradient 14, aortic valve area 1.7 to, mild aortic valve regurgitation, Esophageal varices Gastroesophageal reflux disease Hepatic encephalopathy Hyperlipidemia Hypertension Hypothyroidism Irritable bowel syndrome Liver cirrhosis secondary to
[2022-09-15 08:11] LABS: Hematocrit 26.4 % (37.0-47.0); Hemoglobin 8.4 g/dL (12.0-15.0)
[2022-09-15 08:22] LABS: Alanine Aminotransferase 26 U/L (6-35); Albumin Level 3.9 g/dL (3.5-5.1); Alkaline Phosphatase 366 U/L (38-126); Anion Gap 12 mmol/L (8-16); Aspartate Amino Transferase 51 U/L (14-36); Bilirubin,Total 0.8 mg/dL (0.2-1.3); Blood Urea Nitrogen 43 mg/dL (7-17); Calcium 8.7 mg/dL (8.4-10.2); Carbon Dioxide 23 mmol/L (22-30); Chloride 106 mmol/L (98-107); Estimated Glomerular Filt Rate 23; Glucose 117 mg/dL (65-110); Magnesium 2.7 mg/dL (1.6-2.3); Phosphorus 4.4 mg/dL (2.5-4.5); Potassium 4.4 mmol/L (3.4-5.0); Sodium 141 mmol/L (137-145)
[2022-09-15 08:23] LABS: Ammonia 35 umol/L (9-30)
[2022-09-15 08:25] LABS: Glucose Point of Care 117 mg/dl (65-105)
[2022-09-15] MEDS: GABAPENTIN 300 MG CAPSULE 600 MG PO ×3 (08:54→17:52)
[2022-09-15] MEDS: LACTULOSE 20 GM/30 ML UDC PO ×3 (08:54→17:51)
[2022-09-15] MEDS: ESCITALOPRAM OXALATE 5 MG TABLET PO (08:55)
[2022-09-15] MEDS: FUROSEMIDE 40 MG TABLET PO (08:55)
[2022-09-15] MEDS: FERROUS SULFATE 324 MG TABLET PO (08:55)
[2022-09-15] MEDS: lamoTRIgine 50 MG TABLET 150 MG PO ×2 (08:55→17:52)
[2022-09-15] MEDS: PROPRANOLOL HCL 10 MG TABLET PO ×2 (08:55→17:53)
[2022-09-15] MEDS: PANTOPRAZOLE 40 MG TABLET PO (08:55)
[2022-09-15] MEDS: TRIAMCINOLONE ACET 0.1% CREAM 15 GM TUBE 1 APPLIC TOPICAL (08:56)
[2022-09-15] MEDS: ACETAMINOPHEN 500 MG TABLET 1000 MG PO ×2 (08:59→20:48)
[2022-09-15] MEDS: hydrOXYzine HCL 25 MG TABLET PO ×3 (09:00→20:48)
[2022-09-15 12:02] LABS: Glucose Point of Care 95 mg/dl (65-105)
[2022-09-15 17:35] LABS: Glucose Point of Care 103 mg/dl (65-105)
--- NOTE | 2022-09-15 18:00 | PHAR ---
DRUG NAME: ASENAPINE - BLACK VELAZQUEZ INGREDIENTS: ASENAPINE -- 5 MG RELATED DOCUMENTS: DRUGDEX EVALUATIONS - ASENAPINE COLOR: WHITE SHAPE: [place] IMPRINT: 3 , B FORM: SUBLINGUAL TABLET [id number]: STRIP OF 60
--- NOTE | 2022-09-15 18:08 | PM.IMPN ---
Progress Note: A&P Assessment and Plan (1) Acute on chronic anemia: Code(s): D64.9 - Anemia, unspecified Status: Acute Assessment and Plan: Patient reports having dark stools though she is on iron supplementation. Last week her stool was negative for occult blood and endoscopy showed no evidence of bleeding. Dr. Hartman has been following and has started her on iron, B12, and Procrit injections. Hgb 5.0 and she received 2U PRBC. There was adelay because she has Ab. Consider hemolysis. She may need a bone marrow biopsy. Hgb better. Appreciate GI and Hematology input. Follow Hgb. Home when okay with others (2) Acute on chronic diastolic (congestive) heart failure: Code(s): I50.33 - Acute on chronic diastolic (congestive) heart failure Status: Acute Assessment and Plan: Chest x-ray shows pulmonary edema and she has had some shortness of breath with wheezing. BNP 3440. Most likely related to high output failure. She received a dose of IV Lasix in the emergency department with good UOP. Lungs clear and she is on room air. Follow (3) Type 2 diabetes mellitus: Code(s): E11.9 - Type 2 diabetes mellitus without complications Status: Chronic Assessment and Plan: A1c 4.9. The patient's blood glucose was reviewed on 09/15 Glucose remains very well controlled. Continue AccuCheks covering with sliding scale. Hypoglycemia protocol available as needed. Will hold Lantus since she may be too tightly controlled. (4) Sinus bradycardia: Code(s): R00.1 - Bradycardia, unspecified Status: Acute Assessment and Plan: Patient with chronic bradycardia felt related to her chronic medical problems and from the Inderal. 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 Abdominal ultrasound ordered for evaluation as she has some mild left upper quadrant tenderness. SBP less likely. (6) Chronic kidney disease, stage 4 (severe): Code(s): N18.4 - Chronic kidney disease, stage 4 (severe) Status: Acute Assessment and Plan: Creatinine is stable on admission and remained stable on repeat. Follow. Subjective Date/time seen: 09/15/22 18:08 Interval history: 76yo female with hx of cirrhosis, COPD, HTN, CKD, DM and CHF here for weakness and falls. Patient tolerated the blood transfusion without reaction symptoms. No bowel movements since admission but passing flatus. She was able to stand to have her blood pressure taken. She denies any lightheadedness or chest pain with standing. She is voiding frequently but is on Lasix. She has been on Lasix for about a month she thinks. No dysuria or hematuria. Exam Narrative: AF 97.9 143/42 53 12 98%ra Gen - NARD lying semi-recumbent in bed Chest - CTA bilaterally, nml RR CV - RRR S1/S2 with 3/6 systolic murmur t/o precordium loudest and higher pitch at the apex Abd - Soft, protuberant, +BS, NT Ext - No pedal edema Neuro - Alert and oriented x4. Psych - Nml mood and affect Skin - Warm and dry Objective Data Vital Signs Vital Signs: Vital Signs - 24 hr 09/14/22 21:49 09/15/22 00:00 09/15/22 00:26 Temperature 98.4 F 98.6 F 98.5 F Pulse Rate 56 L 60 56 L Respiratory Rate 18 22 H 14 Blood Pressure 125/37 L 122/50 L 114/36 L Pulse Oximetry 93 94 97 Oxygen Delivery 09/15/22 01:26 09/15/22 02:26 09/14/22 21:40 Temperature 98.5 F 98.4 F Pulse Rate 58 L 58 L Respiratory Rate 16 16 Blood Pressure 136/37 L 134/42 L Pulse Oximetry 100 99 Oxygen Delivery Room Air 09/15/22 03:30 09/15/22 03:54 09/15/22 04:53 Temperature 98.5 F 98.8 F 98.0 F Pulse Rate 58 L 59 L 58 L Respiratory Rate 18 18 18 Blood Press
--- NOTE | 2022-09-15 18:52 | PDONCCN ---
HPI - Date of Consult Date/Time: 09/15/22 18:52 Requesting Physician: Orlando Washington MD Primary Care Provider: Domingo Alcocer, DO - Consult Narrative Reason for consult: Macrocytic anemia and thrombocytopenia Narrative: Nisha Sigala is a 76 year old female with history of chronic kidney stage 3 disease, stroke, hypertension, COPD and type 2 diabetes with liver cirrhosis recently seen in the hospital. Patient is the [facility] assisted living resident. She came back into the hospital with complaint of weakness and status post fall. Labs showed hemoglobin of 5.0. She denies any bleeding. She has occasional dark stool but she is also taking iron supplementation. She is quite tired and fatigued. She received Procrit injection in the hospital about 2 weeks ago. Patient had EGD done on September 02 that showed nonbleeding esophageal varices and gastritis. Colonoscopy from January 2019 showed diverticulosis without bleeding. Review of Systems - Review of Systems All systems reviewed & are unremarkable except as noted in [facility] and [facility] Medical History: Medical History (Last Reviewed 09/14/22 @ 20:03 by Destiny Bender PA-C) Anemia Anxiety Aortic stenosis Moderate on echocardiogram in November 2021. Arthritis Asthma Bipolar disorder Cerebrovascular accident Chronic diastolic congestive heart failure Onset Date: 12/2019 Chronic kidney disease, stage 4 (severe) Chronic obstructive pulmonary disease PFTs 06/28/2021: Moderate obstructive abnormality, moderate decreased diffusion capacity. 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 Moreno History of partial hysterectomy History of thyroidectomy History of tonsillectomy Family History: Family History (Last Reviewed 09/14/22 @ 20:03 by Destiny Bender PA-C) Sibling Multiple sclerosis Father Acute myocardial infarction, Onset Age: 79 Cerebrovascular accident, Onset Age: 79 Mother Dementia Sibling Acute myocardial infarction, Onset Age: 65 Son Diabetes mellitus Other Depression Family history of arthritis Family history of elevated blood lipids Family history of thyroid disease Hypertension - Social History Social History: Social History (Last Reviewed 09/14/22 @ 20:03 by Destiny Bender PA-C) Alcohol Use: Alcohol intake: never Substance Use: Substance use: never Others: Spiritual care concerns: No Smoking Status: Smoking status: Former smoker Second hand tobacco smoke exposure: Yes Smoking Pack-years: Smoking packs per day: 1.5 Smoking cigarettes per day: 30.0 Years smoked: 25 Smoking pack-years: 37.50 Exam - Vital Signs Vital Signs - 24 hr 09/14/22 21:49 09/15/22 00:00 09/15/22 00:26 Temperature 36.9 C 37.0 C 36.9 C Pulse Rate 56 L 60 56 L Respiratory Rate 18 22 H 14 Blood Pressure 125/37 L 122/50 L 114/36 L Pulse Oximetry 93 94 97 Oxygen Delivery 09/15/22 01:26 1
[2022-09-15 20:06] LABS: IFOB Positive Control Positive; Immunochemical Fecal Occult Bl Positive (N)
[2022-09-15] MEDS: EPOETIN ALFA-EPBX 20,000 UNITS/ML VIAL 20000 UNITS SUB-Q (20:30)
[2022-09-15] MEDS: MELATONIN 3 MG TABLET PO (20:32)
[2022-09-15] MEDS: traZODone HCL 50 MG TABLET 300 MG PO (20:33)
[2022-09-15] MEDS: ROSUVASTATIN 10 MG TABLET 20 MG PO (20:33)
[2022-09-15] MEDS: INSULIN GLARGINE (*BKC) 100 UNITS/ML 9 UNITS SUB-Q (20:37)
[2022-09-15 20:52] LABS: Glucose Point of Care 181 mg/dl (65-105)
[2022-09-16 05:39] LABS: Basophils Absolute Auto 0.1 K/mm3 (0.0-0.1); Eosinophils Absolute Auto 0.2 K/mm3 (0-0.3); Eosinophils Percent Auto 4.8 % (0-4.4); Hematocrit 28.3 % (37.0-47.0); Immature Granulocyte Absolute 0.04 K/mm3 (0.00-0.031); Immature Granulocyte Percent A 0.8 % (0-0.5); Lymphocytes Absolute Auto 1.41 K/mm3 (0.9-3.2); Lymphocytes Percent Auto 27.9 % (18.3-44.2); Mean Corpuscular HGB Conc 31.8 g/dl (32-36); Mean Corpuscular Hemoglobin 30.4 pg (26-34); Mean Corpuscular Volume 95.6 fl (80-100); Monocytes Absolute Auto 0.3 K/mm3 (0.1-0.6); Monocytes Percent Auto 6.1 % (2.6-8.5); Neutrophils Percent Auto 59.4 % (45.5-73.1); Nucleated Red Blood Cells Perc 0.6 % (0.0-0.2); Platelet Count Result 118 k/mm3 (150-375); Red Blood Count 2.96 M/mm3 (4.2-5.4); Red Cell Distribution Width 18.1 % (11.5-14.5); White Blood Count 5.1 K/mm3 (4.5-10.0)
[2022-09-16] MEDS: LEVOTHYROXINE SODIUM 25 MCG TABLET PO (05:47)
[2022-09-16] MEDS: LEVOTHYROXINE SODIUM 112 MCG TABLET PO (05:47)
[2022-09-16 05:49] LABS: INR 1.3; Prothrombin Time 15.4 Seconds (11.1-14.7)
[2022-09-16 05:50] LABS: Partial Thromboplastin Time 39.5 SECONDS (22.3-36.8)
[2022-09-16 05:59] LABS: Alanine Aminotransferase 32 U/L (6-35); Albumin Level 3.9 g/dL (3.5-5.1); Alkaline Phosphatase 416 U/L (38-126); Anion Gap 11 mmol/L (8-16); Aspartate Amino Transferase 67 U/L (14-36); Bilirubin,Total 0.5 mg/dL (0.2-1.3); Blood Urea Nitrogen 38 mg/dL (7-17); Calcium 8.8 mg/dL (8.4-10.2); Carbon Dioxide 24 mmol/L (22-30); Chloride 107 mmol/L (98-107); Estimated Glomerular Filt Rate 21; Glucose 98 mg/dL (65-110); Potassium 4.3 mmol/L (3.4-5.0); Sodium 142 mmol/L (137-145)
[2022-09-16 06:00] VITALS: BP 115/52; PULSE 47; RESP 20; TEMP 36.1; O2SAT 99
[2022-09-16 06:05] VITALS: BP 139/50; PULSE 44; RESP 21; TEMP 36.2; O2SAT 100
[2022-09-16] MEDS: UMECLIDINIUM/VILANTEROL 62.5-25 MCG ELLIPTA 1 PUFF INHALATION (07:51)
--- NOTE | 2022-09-16 08:26 | WPDMODSED ---
Moderate Sedation Note-Pt Data Patient Data Diagnosis: acute on chronic anemia Present Complaint: anemia Procedure to be performed/Plan: bone marrow biopsy Allergies Allergy/AdvReac Type Severity Reaction Status Date / Time alendronate sodium Allergy Unknown Unknown Verified 09/14/22 12:32 amantadine Allergy Unknown Unknown Verified 09/14/22 12:32 benztropine Allergy Unknown Unknown Verified 09/14/22 12:32 chlorpromazine Allergy Unknown Unknown Verified 09/14/22 12:32 levofloxacin Allergy Unknown Unknown Verified 09/14/22 12:32 Macrolide Antibiotics Allergy Unknown UNKNOWN Verified 09/14/22 12:32 REACTION mirtazapine Allergy Unknown Unknown Verified 09/14/22 12:32 Quinolones Allergy Unknown Unknown Verified 09/14/22 12:32 topiramate Allergy Unknown Unknown Verified 09/14/22 12:32 Home Medications Medication Instructions Recorded Confirmed Type asenapine maleate 5 mg sublingual 5 mg sublingual Q12H 01/04/20 09/14/22 History tablet (Saphris) lamotrigine 150 mg tablet 150 mg PO BID #60 tabs 01/18/20 09/14/22 Rx escitalopram oxalate 5 mg tablet 5 mg PO DAILY 08/21/21 09/14/22 History rosuvastatin 20 mg tablet 20 mg PO QHS 08/21/21 09/14/22 History trazodone 100 mg tablet 300 mg PO HS 08/21/21 09/14/22 History umeclidinium 62.5 mcg-vilanterol 1 inh inhalation DAILY #60 ea 10/15/21 09/14/22 Rx 25 mcg/actuation powdr for inhalation (Anoro Ellipta) pantoprazole 40 mg tablet,delayed 40 mg PO QAM #90 tabs 11/18/21 09/14/22 Rx release propranolol 10 mg tablet 10 mg PO BID #180 tabs 11/26/21 09/14/22 Rx glucagon HCl 1 mg solution for 1 mg subcut Q20M PRN Hypoglycemia 02/13/22 09/14/22 History injection (Glucagon (HCl) Emergency Kit) sodium chloride 0.65 % nasal spray 1 spray intranasal BID PRN Dry 02/13/22 09/14/22 History aerosol (Saline Mist) Nasal Passages insulin glargine 100 unit/mL (3 9 unit subcut QHS 05/17/22 09/14/22 History mL) subcutaneous pen (Lantus Solostar U-100 Insulin) triamcinolone acetonide 0.1 % 1 applic topical TID PRN itching 06/05/22 09/14/22 Rx topical cream #30 grams levothyroxine 125 mcg tablet 125 mcg PO DAILY #90 tabs 06/16/22 09/14/22 Rx ferrous sulfate 325 mg (65 mg 325 mg PO DAILY 07/18/22 09/14/22 History iron) tablet (FeroSul) furosemide 40 mg tablet 40 mg PO DAILY 07/18/22 09/14/22 History gabapentin 600 mg tablet 600 mg PO TID 07/18/22 09/14/22 History insulin lispro 100 unit/mL 1 sliding scale dose subcut 07/22/22 09/14/22 Rx subcutaneous pen (Humalog KwikPen USEASDIRECTD #15 mL (U-100) Insulin) insulin lispro 100 unit/mL 7 unit (0.07 mL) subcut TIDWMEAL 07/22/22 09/14/22 Rx subcutaneous pen (Humalog KwikPen #15 mL (U-100) Insulin) melatonin 3 mg tablet 3 mg PO HS #10 tabs 07/22/22 09/14/22 Rx lactulose 20 gram/30 mL oral 20 g (30 mL) PO TID #2,880 mL 07/31/22 09/14/22 Rx solution hydroxyzine HCl 25 mg tablet 25 mg PO TID PRN Itching 08/25/22 09/14/22 History nystatin-triamcinolone 100,000 1 applic topical BID PRN Itching 08/25/22 09/14/22 History unit/g-0.1 % topical cream amlodipine 5 mg tablet (Norvasc) 10 mg PO DAILY 30 days #60 tabs 09/04/22 09/14/22 Rx blood sugar diagnostic (True #100 ea 09/11/22 09/14/22 Rx Metrix Glucose Test Strip) acetaminophen 500 mg tablet 1,000 mg PO BID PRN Pain 09/14/22 09/14/22 History Current Medications: Active Medications Acetaminophen (Acetaminophen 500 Mg Tablet) 1,000 mg PO BID PRN PRN Reason: Pain Last Admin: 09/15/22 20:48 Dose: 1,000 mg Dextrose (Dextrose 50% 25 Gm/50 Ml Syringe) 12.5 gm IV PUSH PRN PRN; Protocol PRN Reason: Hypoglycemia Escitalopram Oxalate (Escitalopram Oxalate 5 Mg Tablet) 5 mg PO DAILY PACO Last Admin: 09/15/22 08:55 Dose: 5 mg Ferrous Sulfate (Ferrous Sulfate 324 Mg Tablet) 324 mg PO DAILY PACO Last Admin: 09/15/22 08:55 Dose: 324 mg Furosemide (Furosemide 40 Mg Tablet) 40 mg PO DAILY PACO Last Admin: 09/15/22 08:55 Dose: 40 mg Gabapentin (Gen
[2022-09-16] MEDS: LACTULOSE 20 GM/30 ML UDC PO ×3 (09:34→17:03)
[2022-09-16] MEDS: PANTOPRAZOLE 40 MG TABLET PO (09:35)
[2022-09-16] MEDS: FERROUS SULFATE 324 MG TABLET PO (09:35)
[2022-09-16] MEDS: lamoTRIgine 50 MG TABLET 150 MG PO ×2 (09:36→17:03)
[2022-09-16] MEDS: ESCITALOPRAM OXALATE 5 MG TABLET PO (09:37)
[2022-09-16] MEDS: FUROSEMIDE 40 MG TABLET PO (09:37)
[2022-09-16] MEDS: GABAPENTIN 300 MG CAPSULE 600 MG PO ×3 (09:37→17:03)
[2022-09-16] MEDS: hydrOXYzine HCL 25 MG TABLET PO (09:38)
[2022-09-16] MEDS: ACETAMINOPHEN 500 MG TABLET 1000 MG PO (09:38)
[2022-09-16 12:23] LABS: Glucose Point of Care 190 mg/dl (65-105)
[2022-09-16 14:00] VITALS: BP 135/50; PULSE 50; RESP 18; TEMP 36.1; O2SAT 97
--- NOTE | 2022-09-16 15:50 | PM.DS ---
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 Please see H&P for details. Hospital Course: Patient was feeling weak and she sustained 2 ground level falls prior to admission. She returned to the ED and was found to have a Hgb 5.0. Her fall did injure her left knee but xray negative for fracture. Patient reports having dark stools though she is on iron supplementation. Last admission her stool was negative for occult blood and endoscopy showed nonbleeding esophageal varices and gastritis but no evidence of bleeding. Dr. Hartman has been following and has started her on iron, B12, and Procrit injections. She received 2U PRBC. GI was consulted but did not recommend further endoscopy at this time. They did repeat the stool guaiac that was positive now (GI was aware). Hematology was also consulted and patient underwent a bone marrow biopsy. Hgb improved to 8.4 then 9.0 after the transfusion. No gross blood loss. Chest x-ray shows pulmonary edema and she has had some shortness of breath with wheezing. BNP 3440. Most likely related to high output failure. She received a dose of IV Lasix in the ED with good UOP. Patient with chronic bradycardia felt related to her chronic medical problems and from the Inderal. TSH elevated which may be contributing. We advanced her Synthroid. We held her Inderal since she would drop into the 40's and may be contributing to her falls. No evidence of acute liver decompensation. Abdominal ultrasound showing hepatosplenomegaly, cirrhosis and bilateral renal atrophy. No ascites. A1c 4.9. We continued her Lantus but stopped her other insulin treatment. She was up walking with therapy. Therapy felt the patient did very well and had no further recommendations. [place] overall did well and was able to be discharge home on 09/16/22. Status at Discharge Cognitive/behavioral status at discharge: stable Time Spent with Patient Time attestation: Total time spent providing and/or coordinating discharge services: 34 minutes Time spent: Greater than 30 minutes Exam Narrative: AF 97.1 139/50 44 21 100%ra Gen - NARD lying semi-recumbent in bed Chest - CTA bilaterally, nml RR CV - regular, bradycardic with 3/6 systolic murmur Abd - Soft, protuberant, +BS, NT Ext - No pedal edema Psych - Nml mood and affect Skin - Warm and dry DS: Data Data Completed and Pending Pending studies at discharge: Pending at discharge 09/15/22 18:56 Bone Marrow [PTH] Routine Labs on day of discharge: Labs from last 24 hours 09/16/22 09/16/22 09/16/22 12:18 05:21 05:21 WBC RBC Hgb Hct MCV MCH MCHC RDW Plt Count MPV Immature Gran % (Auto) Neut % (Auto) Lymph % (Auto) [place] % (Auto) Eos % (Auto) Baso % (Auto) Lymph # (Auto) [place] # (Auto) Eos # (Auto) Baso # (Auto) Abs Immat Gran (auto) Absolute Neuts (auto) Absolute Nucleated RBC Nucleated RBC % PT
[2022-09-16 17:36] LABS: Glucose Point of Care 133 mg/dl (65-105)
[2022-09-17 20:52] LABS: Alkaline Phosphatase 368 U/L (37-153); Macrohepatic Isoenzymes 0 % (<=0)
--- NOTE | 2022-09-19 11:50 | PC.NURSE ---
Urine cx results faxed to Dr. Washington for review.
--- NOTE | 2022-09-19 12:24 | PC.NURSE ---
Urine cx results faxed to Dr. Alcocer. Dr. Washington recommends repeating the UA.
== END 2022-09-16 19:00 ==
LOC: ANHED 11:11 → ANH2MED 13:25
PROVIDERS: Internal Medicine Gastroenterology; Physician Assistant; Radiology Diagnostic Radiology; Admitting Provider Internal Medicine; Emergency Provider Emergency Medicine; PCP Internal Medicine; Referring Provider Internal Medicine Hematology & Oncology; Visit Provider Internal Medicine
DX: E11.22 Type 2 diabetes mellitus with diabetic chronic kidney disease (principal); I12.9 Hypertensive chronic kidney disease with stage 1 through stage 4 chronic kidney disease, or unspecified chronic kidney disease; I13.0 Hypertensive heart and chronic kidney disease with heart failure and stage 1 through stage 4 chronic kidney disease, or unspecified chronic kidney disease; I50.33 Acute on chronic diastolic (congestive) heart failure; I35.0 Nonrheumatic aortic (valve) stenosis; N18.30 Chronic kidney disease, stage 3 unspecified; D63.1 Anemia in chronic kidney disease; R53.1 Weakness; I85.00 Esophageal varices without bleeding; K74.60 Unspecified cirrhosis of liver; K75.81 Nonalcoholic steatohepatitis (NASH); D53.9 Nutritional anemia, unspecified; D69.6 Thrombocytopenia, unspecified; B95.2 Enterococcus as the cause of diseases classified elsewhere; J44.9 Chronic obstructive pulmonary disease, unspecified; R42 Dizziness and giddiness; M25.562 Pain in left knee; W18.30XA Fall on same level, unspecified, initial encounter; F41.9 Anxiety disorder, unspecified; M19.90 Unspecified osteoarthritis, unspecified site; F31.9 Bipolar disorder, unspecified; Z23 Encounter for immunization; Z86.73 Personal history of transient ischemic attack (TIA), and cerebral infarction without residual deficits; E11.42 Type 2 diabetes mellitus with diabetic polyneuropathy; K21.9 Gastro-esophageal reflux disease without esophagitis; E78.5 Hyperlipidemia, unspecified; E03.9 Hypothyroidism, unspecified; K58.9 Irritable bowel syndrome, unspecified; R16.2 Hepatomegaly with splenomegaly, not elsewhere classified; J81.1 Chronic pulmonary edema; K76.82 Hepatic encephalopathy; R00.1 Bradycardia, unspecified; Z87.891 Personal history of nicotine dependence; Z79.1 Long term (current) use of non-steroidal anti-inflammatories (NSAID); Z79.4 Long term (current) use of insulin; Z79.51 Long term (current) use of inhaled steroids; Z79.52 Long term (current) use of systemic steroids; Z79.899 Other long term (current) drug therapy; Z82.49 Family history of ischemic heart disease and other diseases of the circulatory system; Z82.61 Family history of arthritis; Z83.438 Family history of other disorder of lipoprotein metabolism and other lipidemia
CPT/HCPCS: 36415; 36430; 38222; 51701; 71045; 71046; 73564; 74018; 76700; 80053; 81001; 82140; 82274; 82607; 82948; 83540; 83550; 83615; 83735; 83880; 84075; 84080; 84100; 84484; 85014; 85018; 85025; 85610; 85730; 86850; 86880; 86900; 86901; 86902; 86922; 87086; 87147; 87181; 87186; 88305; 88311; 88313; 88341; 88342; 88360; 90471; 90694; 93005; 94640; 96374; 96375; 96376; 97161; 99285; A9270; C9113; G0008; G0378; J1642; J1815; J1940; J2250; J3010; J7040; J7050; P9016; Q5105

== ENCOUNTER 2022-10-01 14:24 | Outpatient (CLI) | payer MEDICARE, MEDICAID, SELFPAY ==
[2022-10-01 14:38] LABS: Basophils Absolute Auto 0.1 K/mm3 (0.0-0.1); Basophils Percent Auto 1.1 % (0.2-1.2); Eosinophils Absolute Auto 0.3 K/mm3 (0-0.3); Eosinophils Percent Auto 5.1 % (0-4.4); Hemoglobin 10.5 g/dL (12.0-15.0); Immature Granulocyte Absolute 0.03 K/mm3 (0.00-0.031); Immature Granulocyte Percent A 0.5 % (0-0.5); Lymphocytes Absolute Auto 1.18 K/mm3 (0.9-3.2); Lymphocytes Percent Auto 18.2 % (18.3-44.2); Mean Corpuscular HGB Conc 30.9 g/dl (32-36); Mean Corpuscular Hemoglobin 31.1 pg (26-34); Mean Corpuscular Volume 100.6 fl (80-100); Mean Platelet Volume 9.5 fl (7.4-10.4); Monocytes Absolute Auto 0.4 K/mm3 (0.1-0.6); Monocytes Percent Auto 5.6 % (2.6-8.5); Neutrophils Absolute Auto 4.5 K/mm3 (1.3-6.7); Neutrophils Percent Auto 69.5 % (45.5-73.1); Platelet Count Result 150 k/mm3 (150-375); Red Blood Count 3.38 M/mm3 (4.2-5.4); Red Cell Distribution Width 15.9 % (11.5-14.5); White Blood Count 6.5 K/mm3 (4.5-10.0)
[2022-10-01 15:47] LABS: Iron 105 ug/dL (37-170)
[2022-10-01 15:49] LABS: Anion Gap 13 mmol/L (8-16); Blood Urea Nitrogen 29 mg/dL (7-17); Calcium 8.9 mg/dL (8.4-10.2); Carbon Dioxide 23 mmol/L (22-30); Chloride 104 mmol/L (98-107); Estimated Glomerular Filt Rate 27; Glucose 135 mg/dL (65-110); Potassium 4.9 mmol/L (3.4-5.0); Sodium 140 mmol/L (137-145)
[2022-10-01 15:56] LABS: Percent Iron Saturation 26 % (20-50)
== END 2022-10-01 14:25 | disposition home or self-care (01) ==
PROVIDERS: PCP Internal Medicine; Visit Provider Internal Medicine Hematology & Oncology
DX: D64.9 Anemia, unspecified (principal)
CPT/HCPCS: 36415; 80048; 82607; 82728; 83540; 83550; 85025

== ENCOUNTER 2022-10-14 13:38 | Inpatient (IN) | payer MEDICARE, MEDICAID, SELFPAY ==
[2022-10-14] VITALS (28 sets, daily range): BP systolic 135–147; BP diastolic 45–58; PULSE 57–75; RESP 14–25; TEMP 36.2–36.6; O2SAT 94–100
--- NOTE | ~2022-10-14 | US_ITS ---
US venous doppler LE RT DATE: 10/14/2022 15:27 INDICATION: Right lower extremity pain TECHNIQUE: Real-time and color flow imaging and Doppler analysis of the veins of the right lower extr emity COMPARISON: None FINDINGS: There is spontaneous and phasic flow and normal augmentation and color flow signal and norm al compression of the deep veins of the right lower extremity. IMPRESSION: No evidence of deep venous thrombosis of right lower extremity Reviewed, dictated and finalized at [facility]. Reviewed, dictated and finalized at location [facility]. ECTION SPECIALIST
--- NOTE | ~2022-10-14 | CT_ITS ---
EXAMINATION: CT abdomen pelvis wo con DATE: 10/14/2022 18:45 INDICATION: Abdominal distention right upper quadrant pain TECHNIQUE: Computed tomography (CT) of the abdomen and pelvis was performed without intravenous contr ast. The dose-length product (DLP) was 708.80 mGy-cm. Automated exposure control and iterative recons truction technique were employed. COMPARISON: 08/20/2021 FINDINGS: Minimal dependent atelectasis is present in the lung bases. The heart size is normal. There are trace pericardial and pleural effusions. There is nodularity of the liver surface. Hepatomegaly is noted. Upper abdominal and periesophageal varices are noted. The gallbladder is surgically absent. There is mild enlargement of the common bile duct and central intrahepatic ducts which is likely due to post cholecystectomy state. There is a small volume of ascites. The spleen, pancreas, and adrenal glands are normal. There is a punctate nonobstructing stone of the left kidney. The right kidney is unremarkable. No pathologically enlarged abdominal or pelvic lymph nodes are identified. There is no free intraperitoneal gas or evidence of bowel obstruction. Colonic diverticulosis is present without evidence of diverticulitis. There is severe lumbar spondylosis. Again noted is a chronic central comp ression fracture along the inferior plate of L3. IMPRESSION: 1. Cirrhosis with hepatomegaly and portal hypertension. 2. Small volume of ascites. 3. Diverticulosis without evidence of diverticulitis. Reviewed, dictated and finalized at location [facility]. ACT LENS BLOCKER
--- NOTE | ~2022-10-14 | XR_ITS ---
XR chest 2V DATE: 10/14/2022 14:23 INDICATION: Shortness of breath TECHNIQUE: PA and lateral views COMPARISON: 09/15/2022 portable AP chest FINDINGS: Cardiomegaly. Mild pulmonary vascular and interstitial prominence may indicate mild congest hong change. There is minimal blunting of the costophrenic angles suggesting small pleural effusions. Aortic arch calcification. No pulmonary consolidation. No pneumothorax. Diffuse osteopenia Status post cholecystectomy. IMPRESSION: Cardiomegaly, stable mild congestive changes including pulmonary interstitial edema, pulm onary vascular congestion, minimal pleural effusions Reviewed, dictated and finalized at location [facility]. ECTOR PENETRANT IMPRESSION: Cardiomegaly, stable mild congestive changes including pulmonary in terstitial edema, pulmonary vascular congestion, minimal pleural effusions
--- NOTE | 2022-10-14 13:41 | ECG_ITS ---
Measurements Intervals [place] Rate: 54 P: 46 KS: 186 QRS: -56 QRSD: 172 T: 8 QT: 507 QTc: 484 Interpretive Statements SINUS BRADYCARDIA LEFT AXIS DEVIATION RIGHT BUNDLE BRANCH BLOCK ANTEROSEPTAL INFARCT, AGE INDETERMINATE INFERIOR INFARCT, AGE INDETERMINATE ABNORMAL ECG COMPARED TO ECG 09/14/2022 10:51:09 NO SIGNIFICANT CHANGES Electronically Signed On 10-14-2022 15:14:48 [employer] by George Moyer D.O.
[2022-10-14 14:04] LABS: Basophils Percent Auto 0.7 % (0.2-1.2); Eosinophils Absolute Auto 0.2 K/mm3 (0-0.3); Eosinophils Percent Auto 3.8 % (0-4.4); Hematocrit 24.4 % (37.0-47.0); Hemoglobin 7.7 g/dL (12.0-15.0); Immature Granulocyte Absolute 0.06 K/mm3 (0.00-0.031); Lymphocytes Percent Auto 22.3 % (18.3-44.2); Mean Corpuscular HGB Conc 31.6 g/dl (32-36); Mean Corpuscular Hemoglobin 31.6 pg (26-34); Mean Platelet Volume 10.2 fl (7.4-10.4); Monocytes Absolute Auto 0.3 K/mm3 (0.1-0.6); Monocytes Percent Auto 5.8 % (2.6-8.5); Neutrophils Absolute Auto 3.9 K/mm3 (1.3-6.7); Neutrophils Percent Auto 66.4 % (45.5-73.1); Platelet Count Result 123 k/mm3 (150-375); Red Blood Count 2.44 M/mm3 (4.2-5.4); Red Cell Distribution Width 15.4 % (11.5-14.5); White Blood Count 5.8 K/mm3 (4.5-10.0)
[2022-10-14 14:15] LABS: Alanine Aminotransferase 33 U/L (6-35); Albumin Level 4.1 g/dL (3.5-5.1); Alkaline Phosphatase 403 U/L (38-126); Anion Gap 12 mmol/L (8-16); Aspartate Amino Transferase 50 U/L (14-36); Bilirubin,Total 0.5 mg/dL (0.2-1.3); Blood Urea Nitrogen 39 mg/dL (7-17); Calcium 8.4 mg/dL (8.4-10.2); Carbon Dioxide 20 mmol/L (22-30); Chloride 105 mmol/L (98-107); Estimated Glomerular Filt Rate 22; Glucose 184 mg/dL (65-110); Potassium 4.9 mmol/L (3.4-5.0); Sodium 137 mmol/L (137-145)
[2022-10-14 14:19] LABS: INR 1.3; Prothrombin Time 15.4 Seconds (11.1-14.7)
[2022-10-14 14:20] LABS: Partial Thromboplastin Time 37.2 SECONDS (22.3-36.8)
[2022-10-14 14:27] LABS: NT Pro B Type Natriuretic Pept 2830 pg/mL (5-100); Troponin I 0.014 ng/mL (0.000-0.034)
--- NOTE | 2022-10-14 14:42 | ED.SOB ---
HPI - SOB/Dyspnea General Chief Complaint: Shortness of Breath/Dyspnea Stated Complaint: diff breathing x 1 week Time Seen by Provider: 10/14/22 13:56 History of Present Illness HPI Narrative: Pt is a 77 yo F with a hx of COPD, HFpEF, diabetes, hypertension, hyperlipidemia, hypothyroidism presenting with SOB. Pt states she has been feeling increasingly short of breath for the last week and it acutely worsened this morning. States she feels wheezy. She denies chest pain, lightheadedness, fevers, cough, nausea. Pt states her right leg is more swollen than her left which is new. No headache, numbness or weakness, abdominal pain, n/v/d, dysuria. Related Data Home Medications Medication Instructions Recorded Confirmed asenapine maleate 5 mg sublingual 5 mg sublingual Q12H 01/04/20 10/14/22 tablet (Saphris) escitalopram oxalate 5 mg tablet 5 mg PO DAILY 08/21/21 10/14/22 rosuvastatin 20 mg tablet 20 mg PO QHS 08/21/21 10/14/22 trazodone 100 mg tablet 300 mg PO HS 08/21/21 10/14/22 glucagon HCl 1 mg solution for 1 mg subcut Q20M PRN Hypoglycemia 02/13/22 10/14/22 injection (Glucagon (HCl) Emergency Kit) sodium chloride 0.65 % nasal spray 1 spray intranasal BID PRN Dry 02/13/22 10/14/22 aerosol (Saline Mist) Nasal Passages insulin glargine 100 unit/mL (3 9 unit subcut QHS 05/17/22 10/14/22 mL) subcutaneous pen (Lantus Solostar U-100 Insulin) ferrous sulfate 325 mg (65 mg 325 mg PO DAILY 07/18/22 10/14/22 iron) tablet (FeroSul) furosemide 40 mg tablet 40 mg PO DAILY 07/18/22 10/14/22 gabapentin 600 mg tablet 600 mg PO TID 07/18/22 10/14/22 hydroxyzine HCl 25 mg tablet 25 mg PO TID PRN Itching 08/25/22 10/14/22 acetaminophen 500 mg tablet 1,000 mg PO BID PRN Pain 09/14/22 10/14/22 Allergies Allergy/AdvReac Type Severity Reaction Status Date / Time alendronate sodium Allergy Unknown Unknown Verified 09/14/22 12:32 amantadine Allergy Unknown Unknown Verified 09/14/22 12:32 benztropine Allergy Unknown Unknown Verified 09/14/22 12:32 chlorpromazine Allergy Unknown Unknown Verified 09/14/22 12:32 levofloxacin Allergy Unknown Unknown Verified 09/14/22 12:32 Macrolide Antibiotics Allergy Unknown UNKNOWN Verified 09/14/22 12:32 REACTION mirtazapine Allergy Unknown Unknown Verified 09/14/22 12:32 Quinolones Allergy Unknown Unknown Verified 09/14/22 12:32 topiramate Allergy Unknown Unknown Verified 09/14/22 12:32 Review of Systems Review of Systems: All systems reviewed & are unremarkable except as noted in HPI and below PMFSH Past Medical History Medical History Anemia Anxiety Aortic stenosis Moderate on echocardiogram in November 2021. Arthritis Asthma Bipolar disorder Cerebrovascular accident Chronic diastolic congestive heart failure (12/2019) Chronic kidney disease, stage 4 (severe) Chronic obstructive pulmonary disease PFTs 06/28/2021: Moderate obstructive abnormality, moderate decreased diffusion capacity. 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
[2022-10-14] MEDS: ALBUTEROL SULFATE NEB 2.5 MG/3 ML INH 10 MG INHALATION ×2 (14:51→17:01)
[2022-10-14] MEDS: IPRATROPIUM BR 0.02% INH SOLN 0.5 MG/2.5 ML VIAL INHALATION ×2 (14:51→20:13)
[2022-10-14 15:29] LABS: Influenza A QL RT-PCR Negative (Negative); Influenza B QL RT-PCR Negative (Negative); SARS-CoV-2 RNA PCR Negative
--- NOTE | 2022-10-14 17:45 | PM.IMHP ---
H&P: HPI History of Present Illness Date/Time: 10/14/22 17:45 Chief Complaint: Shortness of breath. 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 She is known to the hospitalist service with a recent admission just several weeks ago at which time she was treated for acute on chronic anemia after she presented to the emergency department and was found to have a hemoglobin of 5.0. She was transfused an although stool was guaiac positive decision was made not to do repeat endoscopy as she had an EGD done just 2 weeks prior which showed nonbleeding esophageal varices and gastritis. She was transfused to a stable hemoglobin was discharged home on 09/16/2022. She has been doing okay at home up until last week when she has been feeling increasingly short of breath on lesser and lesser exertion. She has a mild cough which is not productive though she has been wheezing. She has also noticed increased lower extremity edema, swelling in her abdomen, and she endorses orthopnea. Vital signs were stable on arrival. Her hemoglobin is nearly 3 grams lower than what it was on labs done 2 weeks ago. Chest x-ray showed stable mild congestive changes and lower extremity venous Doppler ultrasounds were negative for DVT. CT of the abdomen pelvis showed only a small volume of ascites. In the ED she was given a nebulizer treatment which helped her shortness of breath and wheezing tremendously however she does not feel that her breathing is back to baseline and she is being admitted in this setting. It is noted that she received 10 milligrams of Decadron and route to the hospital today. Review of Systems Review of Systems: Twelve systems were reviewed. No fever, chills, or sweats. She denies sinus congestion and sore throat. No chest pain or pleuritic pain. Appetite has been okay. No nausea, vomiting, or diarrhea. Except as documented, all other systems were reviewed and are negative. [facility] Past Medical History Medical History Anemia Anxiety Aortic stenosis Moderate on echocardiogram in November 2021. Arthritis Asthma Bipolar disorder Cerebrovascular accident Chronic diastolic congestive heart failure (12/2019) Chronic kidney disease, stage 4 (severe) Chronic obstructive pulmonary disease PFTs 06/28/2021: Moderate obstructive abnormality, moderate decreased diffusion capacity. Depression Diabetic peripheral neuropathy Diastolic dysfunction Echocardiogram 05/2021: EF 65-70%, grade 1 diastolic dysfunction, E/E elevated, global longitudinal strain mildly abnormal, moderate left atrial enlargement, moderate aortic valve sclerosis, mild aortic valve stenosis with peak velocity 239, mean gradient 14, aortic valve area 1.7 to, mild aortic valve regurgitation, Esophageal varices Gastroesophageal reflux disease Hepatic encephalopathy Hyperlipidemia Hypertension Hypothyroidism Irritable bowel syndrome 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 Osteoporosis Rectal polyp Type 2 diabetes mellitus Surgical History Surgical History History of bladder surgery History of cataract extraction with lens replacement History of section History of cholecystectomy History of colonoscopy with polypectomy Most recent colonoscopy 01/2019 demonstrated colon spasm and diverticulosis performed by Dr. Moreno History of partial hysterectomy History of thyroidectomy History of tonsillectomy Family History Family History Sibling Decea
--- NOTE | 2022-10-14 19:22 | PC.NURSE ---
Water provided to pt after verbal order received from Dr Marrufo
[2022-10-14] MEDS: ALBUTEROL SULFATE NEB 2.5 MG/3 ML INH 5 MG INHALATION (20:13)
--- NOTE | 2022-10-14 20:28 | PC.NURSE ---
Attempted to call report on pt , placed on hold, no answer
--- NOTE | 2022-10-14 21:00 | PC.NURSE ---
This patient, Nisha Sigala, was admitted to [facility] Room 306-02. Patient/family oriented to hospital policies and general routines including ID bracelet, bed and alarms, visiting hours, pain management, procedures, bathroom and other care routines, personal items, smoking policy, room service/diet, and visiting hours. Information on how to activate the Rapid Response Team has been discussed. Patient/Family are encouraged to report perceived risks to care and to ask questions if they do not understand what they are told or what they should do. Report received Candice CHÁVEZ RN
--- NOTE | 2022-10-14 21:23 | PC.NURSE ---
called PO to verify medication pt unsure of medications at this time, also called [facility] for medication list to confirm, POA list was from 08/15/22, poa unsure if any changes had been made since 08/15/22.
--- NOTE | 2022-10-14 22:17 | PC.NURSE ---
medication verified Shukri faxed medication list.
[2022-10-15] VITALS (19 sets, daily range): BP systolic 123–144; BP diastolic 46–56; PULSE 58–73; RESP 18–24; TEMP 36.1–36.8; O2SAT 96–100; BMI 34.2
[2022-10-15] MEDS: FUROSEMIDE INJ 40 MG/4 ML VIAL 20 MG IV PUSH (01:52)
[2022-10-15] MEDS: MELATONIN 3 MG TABLET PO ×2 (01:53→20:04)
[2022-10-15] MEDS: INSULIN GLARGINE (*BKC) 100 UNITS/ML 9 UNITS SUB-Q (01:53)
[2022-10-15] MEDS: traZODone HCL 50 MG TABLET 300 MG PO ×2 (01:53→20:04)
[2022-10-15] MEDS: ROSUVASTATIN 10 MG TABLET 20 MG PO ×2 (01:53→20:04)
[2022-10-15 02:02] LABS: Glucose Point of Care 339 mg/dl (65-105)
[2022-10-15] MEDS: IPRATROPIUM BR 0.02% INH SOLN 0.5 MG/2.5 ML VIAL INHALATION ×4 (02:44→19:50)
[2022-10-15] MEDS: ALBUTEROL SULFATE NEB 2.5 MG/3 ML INH 5 MG INHALATION ×4 (02:45→19:49)
[2022-10-15] MEDS: LEVOTHYROXINE SODIUM 112 MCG TABLET PO (05:36)
[2022-10-15] MEDS: LEVOTHYROXINE SODIUM 25 MCG TABLET PO (05:36)
[2022-10-15 06:09] LABS: Hematocrit 21.4 % (37.0-47.0); Mean Corpuscular HGB Conc 31.3 g/dl (32-36); Mean Corpuscular Hemoglobin 30.2 pg (26-34); Mean Corpuscular Volume 96.4 fl (80-100); Mean Platelet Volume 10.7 fl (7.4-10.4); Platelet Count Result 120 k/mm3 (150-375); Red Blood Count 2.22 M/mm3 (4.2-5.4)
[2022-10-15 06:24] LABS: Alanine Aminotransferase 30 U/L (6-35); Albumin Level 3.9 g/dL (3.5-5.1); Alkaline Phosphatase 349 U/L (38-126); Anion Gap 15 mmol/L (8-16); Aspartate Amino Transferase 38 U/L (14-36); Bilirubin,Total 0.4 mg/dL (0.2-1.3); Blood Urea Nitrogen 46 mg/dL (7-17); Calcium 9.1 mg/dL (8.4-10.2); Carbon Dioxide 17 mmol/L (22-30); Chloride 104 mmol/L (98-107); Estimated Glomerular Filt Rate 24; Glucose 276 mg/dL (65-110); Magnesium 2.6 mg/dL (1.6-2.3); Potassium 4.8 mmol/L (3.4-5.0); Sodium 136 mmol/L (137-145)
[2022-10-15 06:30] LABS: Hemoglobin 6.7 g/dL (12.0-15.0)
--- NOTE | 2022-10-15 06:31 | PC.NURSE ---
critical hemoglobin 6.7 reported to MD Velazquez, order to repeat H&H.
[2022-10-15 06:53] LABS: Hemoglobin 6.6 g/dL (12.0-15.0)
[2022-10-15 06:54] LABS: Hematocrit 20.7 % (37.0-47.0)
--- NOTE | 2022-10-15 06:56 | PC.NURSE ---
critical repeat H&H 6.6 and 20.7 N.o 1 unit of blood recheck H&H 1 hrs after infusion completed per MD Velazquez.
--- NOTE | 2022-10-15 07:02 | PC.NURSE ---
informed on-coming ISRA Riggs about pt critical H&H and pt to received 1 unit prbc's this morning once ready from blood bank, pt needs blood consult signed prior to giving blood. ISRA Riggs informed to recheck H&H 1 hour after infusion completed.
[2022-10-15] MEDS: hydrOXYzine HCL 25 MG TABLET PO ×2 (07:59→20:04)
[2022-10-15] MEDS: GABAPENTIN 300 MG CAPSULE 600 MG PO ×3 (08:00→16:57)
[2022-10-15] MEDS: ESCITALOPRAM OXALATE 5 MG TABLET PO (08:00)
[2022-10-15] MEDS: LACTULOSE 20 GM/30 ML UDC PO ×3 (08:00→16:57)
[2022-10-15] MEDS: PROPRANOLOL HCL 10 MG TABLET PO ×2 (08:00→20:05)
[2022-10-15] MEDS: amLODIPine BESYLATE 5 MG TABLET 10 MG PO (08:00)
[2022-10-15] MEDS: FUROSEMIDE 40 MG TABLET PO (08:00)
[2022-10-15] MEDS: PANTOPRAZOLE 40 MG TABLET PO (08:01)
[2022-10-15] MEDS: predniSONE 20 MG TABLET 40 MG PO (08:01)
[2022-10-15] MEDS: lamoTRIgine 100 MG TABLET PO ×2 (08:01→20:04)
[2022-10-15] MEDS: SODIUM CHLORIDE 0.9% IV 250 ML 30 ML IV CONT (08:02)
[2022-10-15] MEDS: lamoTRIgine 50 MG TABLET PO ×2 (08:02→20:04)
[2022-10-15] MEDS: FERROUS SULFATE 324 MG TABLET PO (08:02)
[2022-10-15] MEDS: INSULIN ASPART (*BKC) 100 UNITS/ML SUB-Q ×3 (08:27→16:55)
[2022-10-15] MEDS: UMECLIDINIUM/VILANTEROL 62.5-25 MCG ELLIPTA 1 PUFF INHALATION (08:37)
[2022-10-15 09:06] LABS: Glucose Point of Care 245 mg/dl (65-105)
[2022-10-15] MEDS: ARTIFICIAL TEARS OPHTH SOLN 15 ML BOTTLE 1 DROP EACH EYE ×2 (14:35→20:04)
[2022-10-15 16:40] LABS: Glucose Point of Care 410 mg/dl (65-105)
[2022-10-15 16:47] LABS: Hematocrit 24.8 % (37.0-47.0); Hemoglobin 7.7 g/dL (12.0-15.0)
[2022-10-15 16:51] LABS: Glucose Point of Care 245 mg/dl (65-105)
[2022-10-15] MEDS: INSULIN ASPART (*BKC) 100 UNITS/ML 8 UNITS SUB-Q (16:55)
--- NOTE | 2022-10-15 16:57 | PM.IMPN ---
Progress Note: A&P Assessment and Plan (1) COPD exacerbation: Code(s): J44.1 - Chronic obstructive pulmonary disease with (acute) exacerbation Status: Acute Assessment and Plan: improving. continue prednisone 40 mg daily. Continue albuterol and ipratropium nebs q.6 (2) Acute on chronic anemia: Code(s): D64.9 - Anemia, unspecified Status: Acute Assessment and Plan: Requiring multiple prior transfusions. EGD completed in August with nonbleeding esophageal varices and moderate gastritis. Hemoglobin declined to 6.6 this admission. She has been transfused 1 unit packed RBC with improvement in hemoglobin to 7.7. no signs of active bleeding. Consider GI consultation if further decline in hemoglobin. Continue pantoprazole and ferrous sulfate. (3) Chronic kidney disease, stage 4 (severe): Code(s): N18.4 - Chronic kidney disease, stage 4 (severe) Status: Acute Assessment and Plan: consistent with baseline (4) Heart failure with preserved ejection fraction: Code(s): I50.30 - Unspecified diastolic (congestive) heart failure Status: Acute Assessment and Plan: appears clinically compensated. continue home Lasix 40 mg daily (5) 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: Code(s): K75.81 - Nonalcoholic steatohepatitis (ZIEGLER); K74.60 - Unspecified cirrhosis of liver Status: Chronic Assessment and Plan: chronic, unchanged. Established with GI. Continue lactulose and monitor stool output. Continue propranolol (6) Insulin dependent diabetes mellitus: Status: Acute Assessment and Plan: blood sugars are poorly controlled, likely secondary to steroids. Continue home Lantus 9 units q.h.s.. Add scheduled NovoLog with meals 8 units. Continue sliding scale insulin. Monitor Accu-Cheks. Check updated A1c. Subjective Date/time seen: 10/15/22 16:57 Interval history: date of service: 10/15/2022 Nisha Sigala is a 77-year-old female with history of stroke, COPD, hypertension, hyperlipidemia, cirrhosis secondary to steatosis with history of small esophageal varices, hepatic encephalopathy, CKD, type 2 diabetes mellitus, hypothyroidism, diastolic CHF, and anemia with multiple recent admissions who is seen in follow-up for anemia. She is feeling okay today. She does endorse some shortness of breath that she states has improved somewhat. She denies wheezing. Denies abdominal pain, nausea, vomiting, dizziness, lightheadedness , or chest pain. She is in good spirits. Review of Systems Review of Systems: All systems reviewed & are unremarkable except as noted in HPI and below Exam Narrative: General: well-nourished, well-appearing 77-year-old female, sitting up in bed, comfortable, NARD Neuro: awake, alert and oriented x4, speech clear, no focal neuro deficits noted HEENMT: normocephalic, atraumatic, EOMI, sclerae anicteric, moist oral mucosa Respiratory: clear to auscultation bilaterally, nonlabored breathing Cardio: regular rate, regular rhythm with S1-S2 Abdomen: protuberant, normoactive bowel sounds, soft, nontender to palpation Extremities: no edema, erythema, or tenderness to palpation, DP pulses 2+ bilaterally Skin: no rashes or lesions, warm and dry Psych: appropriate mood and affect, judgment and insight intact Objective Data Vital Signs Vital Signs: Vital Signs - 24 hr 10/14/22 17:03 10/14/22 17:58 10/14/22 17:00 Temperature Pulse Rate 62 63 Respiratory Rate 19 14 Blood Pressure Pulse Oximetry 100 100 Oxygen Delivery Room Air 10/14/22 17:49 10/14/22 18:30 10/14/22 19:06 Temperature Pulse Rate 74 75 67 Respiratory Rate 22 H 20 20 Blood Pressure 147/45 H Pulse Oximetry 100 97 Oxygen Delivery 10/14/22 19:28 10/14/22 19:39 10/14/22 19:45 Temperature Pulse Rate 67 68 69 Respiratory Rate 15 19 16 Blood Pressure Pulse Oximetry 94 98 100 Oxyge
[2022-10-15 18:57] LABS: Glucose Point of Care 433 mg/dl (65-105)
[2022-10-15] MEDS: INSULIN ASPART (*BKC) 100 UNITS/ML 10 UNITS SUB-Q (19:07)
[2022-10-15] MEDS: INSULIN GLARGINE (*BKC) 100 UNITS/ML 18 UNITS SUB-Q (20:22)
[2022-10-15 21:09] LABS: Glucose Point of Care 335 mg/dl (65-105)
[2022-10-16] VITALS (12 sets, daily range): BP systolic 119–141; BP diastolic 47–62; PULSE 50–78; RESP 18–20; TEMP 35.9–36.4; O2SAT 93–99
[2022-10-16] MEDS: ALBUTEROL SULFATE NEB 2.5 MG/3 ML INH 5 MG INHALATION ×3 (02:10→14:08)
[2022-10-16] MEDS: IPRATROPIUM BR 0.02% INH SOLN 0.5 MG/2.5 ML VIAL INHALATION ×3 (02:10→14:08)
[2022-10-16 03:42] LABS: Glucose Point of Care 101 mg/dl (65-105)
[2022-10-16] MEDS: LEVOTHYROXINE SODIUM 112 MCG TABLET PO (05:16)
[2022-10-16] MEDS: hydrOXYzine HCL 25 MG TABLET PO (05:16)
[2022-10-16] MEDS: LEVOTHYROXINE SODIUM 25 MCG TABLET PO (06:30)
[2022-10-16 07:00] LABS: Basophils Percent Auto 0.4 % (0.2-1.2); Hematocrit 26.6 % (37.0-47.0); Hemoglobin 8.3 g/dL (12.0-15.0); Immature Granulocyte Absolute 0.07 K/mm3 (0.00-0.031); Immature Granulocyte Percent A 1.3 % (0-0.5); Lymphocytes Absolute Auto 0.87 K/mm3 (0.9-3.2); Lymphocytes Percent Auto 16.5 % (18.3-44.2); Mean Corpuscular HGB Conc 31.2 g/dl (32-36); Mean Corpuscular Hemoglobin 29.3 pg (26-34); Mean Platelet Volume 10.4 fl (7.4-10.4); Monocytes Absolute Auto 0.3 K/mm3 (0.1-0.6); Monocytes Percent Auto 5.1 % (2.6-8.5); Neutrophils Percent Auto 76.7 % (45.5-73.1); Platelet Count Result 126 k/mm3 (150-375); Red Blood Count 2.83 M/mm3 (4.2-5.4); Red Cell Distribution Width 16.9 % (11.5-14.5); White Blood Count 5.3 K/mm3 (4.5-10.0)
[2022-10-16 07:09] LABS: Alanine Aminotransferase 26 U/L (6-35); Alkaline Phosphatase 293 U/L (38-126); Anion Gap 15 mmol/L (8-16); Aspartate Amino Transferase 35 U/L (14-36); Bilirubin,Total 0.3 mg/dL (0.2-1.3); Blood Urea Nitrogen 48 mg/dL (7-17); Calcium 9.6 mg/dL (8.4-10.2); Carbon Dioxide 23 mmol/L (22-30); Chloride 104 mmol/L (98-107); Estimated Glomerular Filt Rate 23; Glucose 117 mg/dL (65-110); Potassium 4.1 mmol/L (3.4-5.0); Sodium 142 mmol/L (137-145)
[2022-10-16 07:11] LABS: Glucose Point of Care 145 mg/dl (65-105)
[2022-10-16 07:14] LABS: Hemoglobin A1C 6.4 % (<5.7)
[2022-10-16 07:45] LABS: Glucose Point of Care 165 mg/dl (65-105)
[2022-10-16] MEDS: PROPRANOLOL HCL 10 MG TABLET PO ×2 (08:30→22:29)
[2022-10-16] MEDS: amLODIPine BESYLATE 5 MG TABLET 10 MG PO (08:30)
[2022-10-16] MEDS: lamoTRIgine 50 MG TABLET PO ×2 (08:30→22:29)
[2022-10-16] MEDS: FERROUS SULFATE 324 MG TABLET PO (08:30)
[2022-10-16] MEDS: ESCITALOPRAM OXALATE 5 MG TABLET PO (08:30)
[2022-10-16] MEDS: GABAPENTIN 300 MG CAPSULE 600 MG PO ×3 (08:30→16:57)
[2022-10-16] MEDS: predniSONE 20 MG TABLET 40 MG PO (08:30)
[2022-10-16] MEDS: PANTOPRAZOLE 40 MG TABLET PO (08:31)
[2022-10-16] MEDS: FUROSEMIDE 40 MG TABLET PO (08:31)
[2022-10-16] MEDS: LACTULOSE 20 GM/30 ML UDC PO ×3 (08:31→16:57)
[2022-10-16] MEDS: lamoTRIgine 100 MG TABLET PO ×2 (08:31→22:29)
[2022-10-16] MEDS: UMECLIDINIUM/VILANTEROL 62.5-25 MCG ELLIPTA 1 PUFF INHALATION (08:32)
[2022-10-16] MEDS: INSULIN ASPART (*BKC) 100 UNITS/ML 8 UNITS SUB-Q ×3 (09:57→16:57)
[2022-10-16 11:22] LABS: Glucose Point of Care 242 mg/dl (65-105)
[2022-10-16] MEDS: INSULIN ASPART (*BKC) 100 UNITS/ML SUB-Q ×2 (12:32→16:58)
--- NOTE | 2022-10-16 15:15 | PM.IMPN ---
Progress Note: A&P Assessment and Plan (1) COPD exacerbation: Code(s): J44.1 - Chronic obstructive pulmonary disease with (acute) exacerbation Status: Acute Assessment and Plan: Improving. Continue prednisone 40 mg daily. Continue albuterol and ipratropium nebs q.6 prn (2) Acute on chronic anemia: Code(s): D64.9 - Anemia, unspecified Status: Acute Assessment and Plan: Requiring multiple prior transfusions. EGD completed in August with nonbleeding esophageal varices and moderate gastritis. Hemoglobin declined to 6.6 this admission. She was transfused 1 unit packed RBC on 10/15. H&H remaining stable following transfusion. No signs of active bleeding. Consider GI consultation if further decline in hemoglobin. Continue pantoprazole and ferrous sulfate. (3) Chronic kidney disease, stage 4 (severe): Code(s): N18.4 - Chronic kidney disease, stage 4 (severe) Status: Acute Assessment and Plan: consistent with baseline (4) Heart failure with preserved ejection fraction: Code(s): I50.30 - Unspecified diastolic (congestive) heart failure Status: Acute Assessment and Plan: appears clinically compensated. continue home Lasix 40 mg daily (5) 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: Code(s): K75.81 - Nonalcoholic steatohepatitis (ZIEGLER); K74.60 - Unspecified cirrhosis of liver Status: Chronic Assessment and Plan: chronic, unchanged. Established with GI. Continue lactulose and monitor stool output. Continue propranolol (6) Insulin dependent diabetes mellitus: Status: Acute Assessment and Plan: blood sugars are poorly controlled, likely secondary to steroids. Lantus has been increased to 15 units q.h.s. Continue scheduled NovoLog with meals 8 units. Continue sliding scale insulin. A1c is 6.4, though unclear how accurate this is given anemia. Continue to monitor blood sugar trends Plan Hopeful discharge tomorrow if continued improvement Subjective Date/time seen: 10/16/22 15:15 Interval history: Date of service: 10/15/2022 Nisha Sigala is a 77-year-old female with history of stroke, COPD, hypertension, hyperlipidemia, cirrhosis secondary to steatosis with history of small esophageal varices, hepatic encephalopathy, CKD, type 2 diabetes mellitus, hypothyroidism, diastolic CHF, and anemia with multiple recent admissions who is seen in follow-up for anemia. She is feeling well today. Her shortness of breath has improved. She continues to endorse some mild wheezing that she states is unchanged. She denies cough. No chest pain or palpitations. Denies abdominal pain, nausea, vomiting, dizziness, lightheadedness. She is tolerating her diet. She had a somewhat loose bowel movements today. Denies any blood in her stools. Denies hematuria. Review of Systems Review of Systems: All systems reviewed & are unremarkable except as noted in HPI and below Exam Narrative: General: well-nourished, well-appearing 77-year-old female, sitting up in bed, comfortable, NARD Neuro: awake, alert and oriented x4, speech clear, no focal neuro deficits noted HEENMT: normocephalic, atraumatic, EOMI, sclerae anicteric Respiratory: clear to auscultation bilaterally, nonlabored breathing Cardio: regular rate, regular rhythm with S1-S2 Abdomen: protuberant, normoactive bowel sounds, soft, nontender to palpation Extremities: no edema, erythema, or tenderness to palpation, DP pulses 2+ bilaterally Skin: no rashes or lesions, warm and dry Psych: appropriate mood and affect, judgment and insight intact Objective Data Vital Signs Vital Signs: Vital Signs - 24 hr 10/15/22 19:53 10/15/22 19:54 10/15/22 20:05 Temperature Pulse Rate 67 67 66 Respiratory Rate 18 18 Blood Pressure Pulse Oximetry 97 Oxygen Delivery Room Air Oxygen Flow Rate 10/15/22 20:09 10/15/22 22:00 10/15/22 20:00 Te
[2022-10-16 16:29] LABS: Glucose Point of Care 221 mg/dl (65-105)
[2022-10-16] MEDS: ROSUVASTATIN 10 MG TABLET 20 MG PO (22:28)
[2022-10-16] MEDS: MELATONIN 3 MG TABLET PO (22:29)
[2022-10-16] MEDS: traZODone HCL 50 MG TABLET 300 MG PO (22:30)
[2022-10-16] MEDS: INSULIN GLARGINE (*BKC) 100 UNITS/ML 15 UNITS SUB-Q (22:33)
[2022-10-17] MEDS: LEVOTHYROXINE SODIUM 25 MCG TABLET PO (05:51)
[2022-10-17] MEDS: LEVOTHYROXINE SODIUM 112 MCG TABLET PO (05:51)
[2022-10-17 06:00] VITALS: BP 115/46; PULSE 54; RESP 18; TEMP 36.1; O2SAT 97
[2022-10-17 07:46] LABS: Hematocrit 26.4 % (37.0-47.0); Hemoglobin 8.2 g/dL (12.0-15.0); Mean Corpuscular HGB Conc 31.1 g/dl (32-36); Mean Corpuscular Hemoglobin 29.6 pg (26-34); Mean Corpuscular Volume 95.3 fl (80-100); Mean Platelet Volume 10.5 fl (7.4-10.4); Platelet Count Result 115 k/mm3 (150-375); Red Blood Count 2.77 M/mm3 (4.2-5.4); Red Cell Distribution Width 16.5 % (11.5-14.5); White Blood Count 5.5 K/mm3 (4.5-10.0)
[2022-10-17 07:49] LABS: Glucose Point of Care 107 mg/dl (65-105)
[2022-10-17] MEDS: UMECLIDINIUM/VILANTEROL 62.5-25 MCG ELLIPTA 1 PUFF INHALATION (08:27)
[2022-10-17 08:28] LABS: Anion Gap 14 mmol/L (8-16); Blood Urea Nitrogen 52 mg/dL (7-17); Calcium 9.1 mg/dL (8.4-10.2); Carbon Dioxide 24 mmol/L (22-30); Chloride 104 mmol/L (98-107); Estimated Glomerular Filt Rate 22; Glucose 101 mg/dL (65-110); Potassium 4.1 mmol/L (3.4-5.0); Sodium 142 mmol/L (137-145)
[2022-10-17 08:29] VITALS: O2SAT 94
[2022-10-17] MEDS: INSULIN ASPART (*BKC) 100 UNITS/ML 8 UNITS SUB-Q ×2 (09:22→12:14)
[2022-10-17] MEDS: GABAPENTIN 300 MG CAPSULE 600 MG PO ×2 (09:23→12:16)
[2022-10-17] MEDS: LACTULOSE 20 GM/30 ML UDC PO ×2 (09:23→12:15)
[2022-10-17] MEDS: ESCITALOPRAM OXALATE 5 MG TABLET PO (09:24)
[2022-10-17] MEDS: FERROUS SULFATE 324 MG TABLET PO (09:24)
[2022-10-17] MEDS: lamoTRIgine 100 MG TABLET PO (09:24)
[2022-10-17] MEDS: lamoTRIgine 50 MG TABLET PO (09:24)
[2022-10-17] MEDS: predniSONE 20 MG TABLET 40 MG PO (09:24)
[2022-10-17] MEDS: amLODIPine BESYLATE 5 MG TABLET 10 MG PO (09:24)
[2022-10-17] MEDS: FUROSEMIDE 40 MG TABLET PO (09:24)
[2022-10-17] MEDS: PANTOPRAZOLE 40 MG TABLET PO (09:25)
[2022-10-17 11:29] LABS: Glucose Point of Care 223 mg/dl (65-105)
[2022-10-17] MEDS: INSULIN ASPART (*BKC) 100 UNITS/ML SUB-Q (12:14)
[2022-10-17 12:40] LABS: EDCOVIDSCREEN Negative (Negative)
--- NOTE | 2022-10-17 14:38 | PM.DS ---
DS: Admitting Diagnosis Discharge Date 10/17/2022 Admitting Diagnosis COPD exacerbation DS: Discharge Diagnosis Discharge Diagnosis (1) COPD exacerbation: Code(s): J44.1 - Chronic obstructive pulmonary disease with (acute) exacerbation Status: Acute Assessment and Plan: Clinical findings and presentation consistent with COPD exacerbation. Patient received IV Solu-Medrol on admission was transition to p.o. prednisone 40 mg daily which she will continue for a total of 5 days. Had symptomatic improvement with albuterol and ipratropium nebs during admission. Continue with rescue albuterol inhaler as needed and scheduled maintenance inhalers (2) Acute on chronic anemia: Code(s): D64.9 - Anemia, unspecified Status: Acute Assessment and Plan: Requiring multiple prior transfusions. EGD completed in August with nonbleeding esophageal varices and moderate gastritis. Hemoglobin declined to 6.6 during this admission and she was transfused 1 unit packed RBC on 10/15. H&H remained stable following transfusion. No signs of active bleeding. Continue pantoprazole and ferrous sulfate. (3) Chronic kidney disease, stage 4 (severe): Code(s): N18.4 - Chronic kidney disease, stage 4 (severe) Status: Acute Assessment and Plan: consistent with baseline (4) Heart failure with preserved ejection fraction: Code(s): I50.30 - Unspecified diastolic (congestive) heart failure Status: Acute Assessment and Plan: Clinically compensated. continue home Lasix 40 mg daily (5) 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: Code(s): K75.81 - Nonalcoholic steatohepatitis (ZIEGLER); K74.60 - Unspecified cirrhosis of liver Status: Chronic Assessment and Plan: chronic, unchanged. Established with GI. Continue lactulose and monitor stool output. Home for for renal was resumed, however patient was noted to be mildly bradycardic. Review of recent hospital discharge 09/16/2022 indicates propranolol to be held given issues with hypotension and bradycardia, therefore propranolol placed on hold again. Continue to follow-up with GI as an outpatient (6) Insulin dependent diabetes mellitus: Status: Acute Assessment and Plan: Blood sugars were poorly controlled initial, likely secondary to steroids. Managed during admission with increased Lantus and scheduled NovoLog with meals, in addition to sliding scale insulin. Hemoglobin A1c 6.4, though unclear how accurate this is given patient's ongoing issues with anemia. Blood sugars to be monitored at outside facility. Continue home Bienvenido DS: Summary Hospital Course Hospital Course: Date of admission: 10/14/2022 Date of discharge: 10/17/2022 Nisha Sigala is a 77-year-old female with a history of stroke, COPD, hypertension, hyperlipidemia, cirrhosis secondary to steatosis with history of small esophageal varices, hepatic encephalopathy, CKD, type 2 diabetes mellitus, hypothyroidism, diastolic CHF, and chronic anemia requiring multiple recent admissions who presented to the emergency department on 10/14/2022 with complaints of shortness of breath worsening over the past 1 week. On presentation to the ED, she was mildly tachypneic with additional vital signs stable, hemoglobin 7 7, creatinine 2.2, additional laboratory workup unremarkable, CXR showed cardiomegaly with stable mild congestive changes, venous Doppler was negative for DVT, and CT of abdomen/pelvis showed cirrhosis with hepatomegaly important hypertension and small volume ascites. She was admitted to the hospitalist service for further evaluation management. Please see above for further details. Patient was treated with steroids for COPD exacerbation and had marked symptomatic improvement. She was transfused 1 unit packed red blood cells secondary to chronic anemia. GI evaluation was deferred given recent complete workup and no signs of active bleeding.
== END 2022-10-17 15:05 | DRG 191 ==
LOC: ANHED 14:44 → ANH3MEDSUR 20:13
PROVIDERS: Emergency Medicine; Internal Medicine; Physician Assistant; Admitting Provider Student in an Organized Health Care Education/Training Program; Emergency Provider Emergency Medicine; PCP Internal Medicine; Visit Provider Internal Medicine
DX: J44.1 Chronic obstructive pulmonary disease with (acute) exacerbation (principal); I13.0 Hypertensive heart and chronic kidney disease with heart failure and stage 1 through stage 4 chronic kidney disease, or unspecified chronic kidney disease; N18.4 Chronic kidney disease, stage 4 (severe); I50.32 Chronic diastolic (congestive) heart failure; I85.10 Secondary esophageal varices without bleeding; E11.22 Type 2 diabetes mellitus with diabetic chronic kidney disease; E11.42 Type 2 diabetes mellitus with diabetic polyneuropathy; E11.65 Type 2 diabetes mellitus with hyperglycemia; T38.0X5A Adverse effect of glucocorticoids and synthetic analogues, initial encounter; D64.9 Anemia, unspecified; K75.81 Nonalcoholic steatohepatitis (NASH); K76.82 Hepatic encephalopathy; K74.69 Other cirrhosis of liver; K29.70 Gastritis, unspecified, without bleeding; E78.5 Hyperlipidemia, unspecified; E03.9 Hypothyroidism, unspecified; M81.0 Age-related osteoporosis without current pathological fracture; I35.0 Nonrheumatic aortic (valve) stenosis; K21.9 Gastro-esophageal reflux disease without esophagitis; K58.9 Irritable bowel syndrome, unspecified; F31.9 Bipolar disorder, unspecified; Z20.822 Contact with and (suspected) exposure to COVID-19; Z79.4 Long term (current) use of insulin; Z79.899 Other long term (current) drug therapy; Z86.73 Personal history of transient ischemic attack (TIA), and cerebral infarction without residual deficits; Z87.891 Personal history of nicotine dependence; Z98.49 Cataract extraction status, unspecified eye; Z96.1 Presence of intraocular lens
CPT/HCPCS: 36415; 36430; 71046; 74176; 80048; 80053; 82948; 83036; 83735; 83880; 84484; 85014; 85018; 85025; 85027; 85610; 85730; 86850; 86880; 86900; 86901; 86902; 86922; 87426; 87636; 93005; 93971; 94640; 96374; 99285; A9270; C9803; G0378; J1815; J1940; J7050; J7512; P9016

== ENCOUNTER 2022-10-30 08:34 | Observation (INO) | payer MEDICARE, MEDICAID, SELFPAY ==
[2022-10-30] VITALS (62 sets, daily range): BP systolic 95–160; BP diastolic 42–70; PULSE 49–70; RESP 11–24; TEMP 36–36.6; O2SAT 96–100; BMI 32.5
--- NOTE | ~2022-10-30 | XR_ITS ---
EXAMINATION: XR chest 2V DATE: 10/30/2022 09:07 INDICATION: Shortness of breath. Wheezing. TECHNIQUE: Frontal and lateral views of the chest were obtained. COMPARISON: Chest 2 views 10/14/2022, CT abdomen and pelvis 10/14/2022 FINDINGS: There are small pleural effusions. There is a diffuse interstitial pattern in the lungs. No pneumothorax. Cardiomegaly is noted. Surgical clips in the right upper quadrant are likely from chol ecystectomy. IMPRESSION: 1. Mild pulmonary edema. 2. Small pleural effusions. 3. Cardiomegaly. Reviewed, dictated and finalized at location A. CUT OPERATOR
--- NOTE | 2022-10-30 08:38 | ECG_ITS ---
Measurements Intervals [place] Rate: 60 P: 43 VA: 197 QRS: -38 QRSD: 161 T: 15 QT: 502 QTc: 502 Interpretive Statements SINUS RHYTHM MARKED LEFT AXIS DEVIATION [QRS AXIS < -30] RIGHT BUNDLE BRANCH BLOCK [120+ ms QRS DURATION, UPRIGHT V1, 40+ ms S IN I/aVL/V4/V5/V6] ABNORMAL ECG COMPARED TO ECG 10/14/2022 13:45:41 SINUS RHYTHM NOW PRESENT Electronically Signed On 10-30-2022 11:22:02 MARKETING AND PROMOTIONS MANAGER by Mahendra Maravilla M.D.
--- NOTE | 2022-10-30 09:10 | ED.SOB ---
HPI - SOB/Dyspnea General Chief Complaint: Shortness of Breath/Dyspnea Stated Complaint: sob may need blood transfusion Time Seen by Provider: 10/30/22 08:35 History of Present Illness HPI Narrative: Patient is a 77-year-old female who presents to the ER with shortness of breath. Worsening over the last 2 days. Associated with orthopnea. Patient has lower extremity edema that she reports is chronic. She has history of CKD, CHF, and anemia requiring frequent transfusions. No GI bleeding. Denies chest pain or chest pressure. She has not oxygen dependent. No new runny nose or sore throat or cough. No fevers or chills. Related Data Home Medications Medication Instructions Recorded Confirmed asenapine maleate 5 mg sublingual 5 mg sublingual Q12H 01/04/20 10/30/22 tablet (Saphris) escitalopram oxalate 5 mg tablet 5 mg PO DAILY 08/21/21 10/30/22 rosuvastatin 20 mg tablet 20 mg PO QHS 08/21/21 10/30/22 trazodone 100 mg tablet 300 mg PO HS 08/21/21 10/30/22 glucagon HCl 1 mg solution for 1 mg subcut Q20M PRN Hypoglycemia 02/13/22 10/30/22 injection (Glucagon (HCl) Emergency Kit) sodium chloride 0.65 % nasal spray 1 spray intranasal BID PRN Dry 02/13/22 10/30/22 aerosol (Saline Mist) Nasal Passages insulin glargine 100 unit/mL (3 9 unit subcut QHS 05/17/22 10/30/22 mL) subcutaneous pen (Lantus Solostar U-100 Insulin) ferrous sulfate 325 mg (65 mg 325 mg PO DAILY 07/18/22 10/30/22 iron) tablet (FeroSul) furosemide 40 mg tablet 40 mg PO DAILY 07/18/22 10/30/22 gabapentin 600 mg tablet 600 mg PO TID 07/18/22 10/30/22 hydroxyzine HCl 25 mg tablet 25 mg PO TID PRN Itching 08/25/22 10/30/22 acetaminophen 500 mg tablet 1,000 mg PO BID PRN Pain 09/14/22 10/30/22 Allergies Allergy/AdvReac Type Severity Reaction Status Date / Time alendronate sodium Allergy Unknown Unknown Verified 10/30/22 08:46 amantadine Allergy Unknown Unknown Verified 10/30/22 08:46 benztropine Allergy Unknown Unknown Verified 10/30/22 08:46 chlorpromazine Allergy Unknown Unknown Verified 10/30/22 08:46 levofloxacin Allergy Unknown Unknown Verified 10/30/22 08:46 Macrolide Antibiotics Allergy Unknown UNKNOWN Verified 10/30/22 08:46 REACTION mirtazapine Allergy Unknown Unknown Verified 10/30/22 08:46 Quinolones Allergy Unknown Unknown Verified 10/30/22 08:46 topiramate Allergy Unknown Unknown Verified 10/30/22 08:46 Review of Systems Review of Systems: All systems reviewed & are unremarkable except as noted in HPI and below Constitutional: Constitutional: Denies chills, Reports fatigue and Denies fever(s) ENT: Denies nasal congestion and Denies sore throat Cardiovascular: Cardiovascular: Denies chest pain, Denies rapid heart rate and Denies radiating jaw, neck or arm pain Respiratory: Respiratory: Denies cough, Reports dyspnea and Denies wheezing Comments: Positive orthopnea Gastrointestinal: Gastrointestinal: Denies abdominal pain, Denies nausea and Denies vomiting Genitourinary: Genitourinary: Denies nocturia and Denies dysuria Musculoskeletal: Musculoskeletal: Denies myalgias and Denies muscle cramps [facility] Past Medical History Medical History (Updated 10/30/22 @ 18:42 by Charles Daniel MD) Anemia Anxiety Aortic stenosis Moderate on echocardiogram in November 2021. Arthritis Asthma Bipolar disorder Cerebrovascular accident Chronic diastolic congestive heart failure (12/2019) Chronic kidney disease, stage 4 (severe) Chronic obstructive pulmonary disease PFTs 06/28/2021: Moderate obstructive abnormality, moderate decreased diffusion capacity. Depression Diabetic peripheral neuropathy Diastolic dysfunction Echocardiogram 05/2021: EF 65-70%, grade 1 diastolic dysfunction, E/E elevated, global longitudinal strain mildly abnormal, moderate left atrial enlargement, moderate aortic valve sclerosis, mild aortic valve stenosis with peak velocity 239, mean gradient 14, aortic valve area 1.7 to, mild aortic valve regurgitation, Es
[2022-10-30 09:20] LABS: Basophils Absolute Auto 0.1 K/mm3 (0.0-0.1); Eosinophils Absolute Auto 0.2 K/mm3 (0-0.3); Eosinophils Percent Auto 4.4 % (0-4.4); Hematocrit 21.2 % (37.0-47.0); Immature Granulocyte Absolute 0.05 K/mm3 (0.00-0.031); Lymphocytes Absolute Auto 0.77 K/mm3 (0.9-3.2); Lymphocytes Percent Auto 14.9 % (18.3-44.2); Mean Corpuscular HGB Conc 30.7 g/dl (32-36); Mean Corpuscular Hemoglobin 31.4 pg (26-34); Mean Corpuscular Volume 102.4 fl (80-100); Mean Platelet Volume 10.2 fl (7.4-10.4); Monocytes Absolute Auto 0.4 K/mm3 (0.1-0.6); Monocytes Percent Auto 6.9 % (2.6-8.5); Neutrophils Absolute Auto 3.7 K/mm3 (1.3-6.7); Neutrophils Percent Auto 71.8 % (45.5-73.1); Platelet Count Result 109 k/mm3 (150-375); Red Blood Count 2.07 M/mm3 (4.2-5.4); Red Cell Distribution Width 18.2 % (11.5-14.5); White Blood Count 5.2 K/mm3 (4.5-10.0)
[2022-10-30 09:25] LABS: Hemoglobin 6.5 g/dL (12.0-15.0)
[2022-10-30 09:33] LABS: INR 1.3; Prothrombin Time 15.3 Seconds (11.1-14.7)
[2022-10-30 09:34] LABS: Alanine Aminotransferase 22 U/L (6-35); Albumin Level 3.8 g/dL (3.5-5.1); Alkaline Phosphatase 256 U/L (38-126); Anion Gap 8 mmol/L (8-16); Aspartate Amino Transferase 30 U/L (14-36); Bilirubin,Total 0.3 mg/dL (0.2-1.3); Blood Urea Nitrogen 30 mg/dL (7-17); Calcium 8.1 mg/dL (8.4-10.2); Carbon Dioxide 21 mmol/L (22-30); Chloride 103 mmol/L (98-107); Estimated Glomerular Filt Rate 22; Glucose 326 mg/dL (65-110); Partial Thromboplastin Time 35.4 SECONDS (22.3-36.8); Potassium 4.2 mmol/L (3.4-5.0); Sodium 132 mmol/L (137-145)
[2022-10-30 09:52] LABS: NT Pro B Type Natriuretic Pept 2060 pg/mL (5-100); Troponin I 0.451 ng/mL (0.000-0.034)
--- NOTE | 2022-10-30 10:29 | PC.NURSE ---
Pt ambulatory to restroom. Pt became wheezy with exertion. 02 sat low 80's on room air when returning to room. 02 sat recovered quickly with rest to upper 90's.
--- NOTE | 2022-10-30 11:25 | PC.NURSE ---
Patient report received from ISRA Haywood. All questions answered and care of patient assumed. Patient resting comfortably in stretcher with call-light in reach. VSS. Blood ordered but not available from blood bank at this time. Awaiting available inpatient bed.
--- NOTE | 2022-10-30 12:25 | PC.NURSE ---
Patient assisted to the BR. Steady gait. However, patient does become short of breath with exertion upon walking to the BR. When placed back in bed patient's oxygen saturation returns to 100%. Notable wheezing. Breathing treatment requested.
[2022-10-30] MEDS: ALBUTEROL SULFATE NEB 2.5 MG/3 ML INH INHALATION (12:32)
[2022-10-30 12:48] LABS: Influenza A QL RT-PCR Negative (Negative); Influenza B QL RT-PCR Negative (Negative); SARS-CoV-2 RNA PCR Negative
[2022-10-30 12:52] LABS: Troponin I 0.661 ng/mL (0.000-0.034)
[2022-10-30] MEDS: SODIUM CHLORIDE 0.9% IV 250 ML 30 ML IV CONT (13:25)
[2022-10-30] MEDS: TUBING, BLOOD PLUM PUMP TUBING 1 EACH XX ×2 (13:25→22:21)
[2022-10-30] MEDS: FUROSEMIDE INJ 40 MG/4 ML VIAL IV PUSH (13:25)
--- NOTE | 2022-10-30 14:00 | PM.IMHP ---
H&P: HPI History of Present Illness Date/Time: 10/30/22 14:00 Chief Complaint: Shortness of breath. 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 She is known to the hospitalist service with several recent admissions for acute on chronic anemia and was just discharged from this facility on 10/17/2022 after being treated for the same. She was stable with blood transfusion and repeat endoscopy was not pursued as an EGD done just 1 month prior showed nonbleeding esophageal varices and gastritis. It is noted that she has also followed with Dr. Hartman and has been receiving erythropoietin injections. She has been doing okay since that time however over the last couple of days she has once again started to feel fatigued, tired, and short of breath. Her stools are frequently dark due to iron supplementation however stool was Hemoccult positive. Once again her hemoglobin is low at 6.5 and she is being admitted in this setting for blood transfusion and GI consultation. She denies lightheadedness, dizziness, syncope, near syncope, chest pain, nausea, vomiting, abdominal pain, epigastric pain, bloating, belching, and diarrhea. Review of Systems Review of Systems: Twelve systems were reviewed and are negative except for as per HPI. [facility] Past Medical History Medical History Anemia Anxiety Aortic stenosis Moderate on echocardiogram in November 2021. Arthritis Asthma Bipolar disorder Cerebrovascular accident Chronic diastolic congestive heart failure (12/2019) Chronic kidney disease, stage 4 (severe) Chronic obstructive pulmonary disease PFTs 06/28/2021: Moderate obstructive abnormality, moderate decreased diffusion capacity. Depression Diabetic peripheral neuropathy Diastolic dysfunction Echocardiogram 05/2021: EF 65-70%, grade 1 diastolic dysfunction, E/E elevated, global longitudinal strain mildly abnormal, moderate left atrial enlargement, moderate aortic valve sclerosis, mild aortic valve stenosis with peak velocity 239, mean gradient 14, aortic valve area 1.7 to, mild aortic valve regurgitation, Esophageal varices Gastroesophageal reflux disease Hepatic encephalopathy Hyperlipidemia Hypertension Hypothyroidism Irritable bowel syndrome 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 Osteoporosis Rectal polyp Type 2 diabetes mellitus Surgical History Surgical History History of bladder surgery History of cataract extraction with lens replacement History of section History of cholecystectomy History of colonoscopy with polypectomy Most recent colonoscopy 01/2019 demonstrated colon spasm and diverticulosis performed by Dr. Moreno History of partial hysterectomy History of thyroidectomy History of tonsillectomy Family History Family History Sibling Multiple sclerosis Father Acute myocardial infarction, Onset Age: 79 Cerebrovascular accident, Onset Age: 79 Mother Dementia Sibling Acute myocardial infarction, Onset Age: 65 Son Diabetes mellitus Other Depression Family history of arthritis Family history of elevated blood lipids Family history of thyroid disease Hypertension Social History Social History Social History: Surrogate medical decision maker: Gavino Sigala (son). Code status: Do not resuscitate. Smoking packs per day: 2 Smoking cigarettes per day: 40.0
--- NOTE | 2022-10-30 15:22 | ADMGEN ---
This patient, Nisha Sigala, was admitted to IMU Room 201-01 @1515 .O2 2 l/nc spo2 100% Patient oriented to hospital policies and general routines including ID bracelet, bed and alarms, visiting hours, pain management, procedures, bathroom and other care routines, personal items, smoking policy, room service/diet, and visiting hours. Information on how to activate the Rapid Response Team has been discussed. Patient/are encouraged to report perceived risks to care and to ask questions if they do not understand what they are told or what they should do.
--- NOTE | 2022-10-30 15:56 | WPDGICN ---
Assessment and Plan Assessment and plan (1) Acute on chronic anemia: Code(s): D64.9 - Anemia, unspecified Status: Acute Assessment and Plan: She is once again anemic. She dropped precipitously over period of a couple weeks without any overt evidence of bleeding. Stool Hemoccult was positive in emergency room today oddly, she had a negative stool Hemoccult when she came in early August With severe anemia. she has had no vomiting nausea or heartburn. She denies any change in bowel habits. She has seen no red blood in her stools and the stools have not looked or smell Different. She does not take any NSAIDs. She has done have esophageal varices which were relatively small when observed last year and again 2 months ago. Will schedule her for EGD to be done tomorrow morning. I will also investigate and see if I can locate the virtual colonoscopy that was ordered a year a to go (2) Shortness of breath: Code(s): R06.02 - Shortness of breath Status: Acute Assessment and Plan: this is likely due to her anemia. She was given a nebulizer and also steroids today. She does have COPD, and therefore does not tolerate a significant drop in hemoglobin such as she has. 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 She has been followed by Dr. Acevedo in [place] who recently saw her in the office but did not change any of her therapy. (5) Esophageal varices: Code(s): I85.00 - Esophageal varices without bleeding Status: Acute Assessment and Plan: She has been maintained on propranolol 10 mg b.i.d. to reduce portal pressure and reduce the risk of bleeding from varices. (6) Hepatic encephalopathy: Code(s): K76.82 - Hepatic encephalopathy Status: Acute Assessment and Plan: She is on lactulose syrup 3 times a day. GI Consult Note Consult date/time: 10/30/22 15:56 HPI: Nisha Sigala is a 77 year old female who was readmitted again with shortness of breath and found to be anemic. She was short of breath was given a nebulizer treatment. She also had been given Decadron on the way here. The patient has had now 4 admissions in the last 2 months with virtually identical symptoms. On every admission she is found to be markedly anemic. There has never been a obvious gastrointestinal bleed. In fact when I saw her in early August Hemoccult was negative. We performed EGD at that time which showed small esophageal varices but no evidence of active bleeding. She has had previous colonoscopies over the last 5 years because of anemia. The 1 I did about 5 years ago only showed diverticular disease. She had attempted colonoscopy 1 year ago and was found have marked diverticulosis that precluded a complete examination. I had ordered a capsule study of the small bowel and I believe that she had done that and was negative but I will double check. She also has had a virtual colonoscopy in the last couple of years. The patient was transfused in early August when she came in with a hemoglobin of 5. on that occasion as I mentioned her stool Hemoccult was negative. Two weeks later she came back in with a similar hemoglobin of around 5 and stool was positive at that time. Repeat endoscopy was not done. On October 01 she had a hemoglobin of 10.5 but 2 weeks later it dropped again to 6.6. When she went home October 21 was 8.5. Today it is back down to 6.5 MCV is normal in fact is high today. B12 levels have been normal. Her serum iron levels actually have been increasing over the last year and have been well within the normal range. She has been
[2022-10-30] MEDS: FUROSEMIDE INJ 40 MG/4 ML VIAL 20 MG IV PUSH (20:10)
[2022-10-30] MEDS: GABAPENTIN 300 MG CAPSULE 600 MG PO (20:16)
[2022-10-30] MEDS: LACTULOSE 20 GM/30 ML UDC PO (20:16)
[2022-10-30] MEDS: ROSUVASTATIN 10 MG TABLET 20 MG PO (20:16)
[2022-10-30] MEDS: lamoTRIgine 50 MG TABLET PO (20:17)
[2022-10-30] MEDS: lamoTRIgine 100 MG TABLET PO (20:17)
[2022-10-30] MEDS: PROPRANOLOL HCL 10 MG TABLET PO (20:18)
[2022-10-30 20:47] LABS: Glucose Point of Care 316 mg/dl (65-105)
[2022-10-30] MEDS: MELATONIN 3 MG TABLET PO (21:26)
[2022-10-30] MEDS: traZODone HCL 50 MG TABLET 300 MG PO (21:26)
[2022-10-30] MEDS: INSULIN GLARGINE (*BKC) 100 UNITS/ML 9 UNITS SUB-Q (21:26)
[2022-10-30] MEDS: SODIUM CHLORIDE 0.9% IV 250 ML 50 ML (22:20)
[2022-10-30 23:42] LABS: Glucose Point of Care 222 mg/dl (65-105)
[2022-10-31] VITALS (15 sets, daily range): BP systolic 112–146; BP diastolic 39–63; PULSE 48–59; RESP 14–20; TEMP 36–36.6; O2SAT 96–100
[2022-10-31 02:24] LABS: Hematocrit 27.5 % (37.0-47.0); Hemoglobin 8.9 g/dL (12.0-15.0); Mean Corpuscular HGB Conc 32.4 g/dl (32-36); Mean Corpuscular Hemoglobin 30.6 pg (26-34); Mean Corpuscular Volume 94.5 fl (80-100); Mean Platelet Volume 10.4 fl (7.4-10.4); Platelet Count Result 113 k/mm3 (150-375); Red Blood Count 2.91 M/mm3 (4.2-5.4); Red Cell Distribution Width 18.9 % (11.5-14.5); White Blood Count 5.5 K/mm3 (4.5-10.0)
[2022-10-31 02:41] LABS: Anion Gap 9 mmol/L (8-16); Blood Urea Nitrogen 33 mg/dL (7-17); Calcium 8.2 mg/dL (8.4-10.2); Carbon Dioxide 22 mmol/L (22-30); Chloride 107 mmol/L (98-107); Estimated Glomerular Filt Rate 22; Glucose 164 mg/dL (65-110); Magnesium 2.2 mg/dL (1.6-2.3); Sodium 138 mmol/L (137-145)
[2022-10-31 02:55] LABS: Troponin I 0.476 ng/mL (0.000-0.034)
[2022-10-31] MEDS: LEVOTHYROXINE SODIUM 25 MCG TABLET PO (05:36)
[2022-10-31] MEDS: LEVOTHYROXINE SODIUM 112 MCG TABLET PO (05:36)
[2022-10-31 08:34] LABS: Glucose Point of Care 146 mg/dl (65-105)
[2022-10-31] MEDS: LACTATED RINGERS 1,000 ML 150 ML IV CONT (08:34)
--- NOTE | 2022-10-31 08:53 | WPDANESEPPF ---
Anes - Initial Pre Proc Eval Procedure: Operation Date: 10/31/22 14:45 Proposed Procedures p Esophagogastroduodenoscopy - Edwin Moreno MD Date/Time: 10/31/22 08:53 Surgeon: Allan Campos MD Pre Op Diagnosis: anemia,elevated trop,pulmonary edema,occult and st Patient Data Age: 77 Gender: F Height: 1.5 m Weight: 73.6 kg Last Vital Signs Temp 36.3 C L 10/31/22 08:29 Pulse 55 L 10/31/22 08:29 Resp 18 10/31/22 08:29 BP 135/40 L 10/31/22 08:29 Pulse Ox 100 10/31/22 08:29 O2 Del Method Nasal Cannula 10/31/22 08:29 O2 Flow Rate 2 10/31/22 08:29 Allergies Allergy/AdvReac Type Severity Reaction Status Date / Time alendronate sodium Allergy Unknown Unknown Verified 10/30/22 08:46 amantadine Allergy Unknown Unknown Verified 10/30/22 08:46 benztropine Allergy Unknown Unknown Verified 10/30/22 08:46 chlorpromazine Allergy Unknown Unknown Verified 10/30/22 08:46 levofloxacin Allergy Unknown Unknown Verified 10/30/22 08:46 Macrolide Antibiotics Allergy Unknown UNKNOWN Verified 10/30/22 08:46 REACTION mirtazapine Allergy Unknown Unknown Verified 10/30/22 08:46 Quinolones Allergy Unknown Unknown Verified 10/30/22 08:46 topiramate Allergy Unknown Unknown Verified 10/30/22 08:46 Home Medications Medication Instructions Recorded Confirmed Type asenapine maleate 5 mg sublingual 5 mg sublingual Q12H 01/04/20 10/30/22 History tablet (Saphris) lamotrigine 150 mg tablet 150 mg PO BID #60 tabs 01/18/20 10/30/22 Rx escitalopram oxalate 5 mg tablet 5 mg PO DAILY 08/21/21 10/30/22 History rosuvastatin 20 mg tablet 20 mg PO QHS 08/21/21 10/30/22 History trazodone 100 mg tablet 300 mg PO HS 08/21/21 10/30/22 History umeclidinium 62.5 mcg-vilanterol 1 inh inhalation DAILY #60 ea 10/15/21 10/30/22 Rx 25 mcg/actuation powdr for inhalation (Anoro Ellipta) pantoprazole 40 mg tablet,delayed 40 mg PO QAM #90 tabs 11/18/21 10/30/22 Rx release propranolol 10 mg tablet 10 mg PO BID #180 tabs 11/26/21 10/30/22 Rx glucagon HCl 1 mg solution for 1 mg subcut Q20M PRN Hypoglycemia 02/13/22 10/30/22 History injection (Glucagon (HCl) Emergency Kit) sodium chloride 0.65 % nasal spray 1 spray intranasal BID PRN Dry 02/13/22 10/30/22 History aerosol (Saline Mist) Nasal Passages insulin glargine 100 unit/mL (3 9 unit subcut QHS 05/17/22 10/30/22 History mL) subcutaneous pen (Lantus Solostar U-100 Insulin) triamcinolone acetonide 0.1 % 1 applic topical TID PRN itching 06/05/22 10/30/22 Rx topical cream #30 grams ferrous sulfate 325 mg (65 mg 325 mg PO DAILY 07/18/22 10/30/22 History iron) tablet (FeroSul) furosemide 40 mg tablet 40 mg PO DAILY 07/18/22 10/30/22 History gabapentin 600 mg tablet 600 mg PO TID 07/18/22 10/30/22 History melatonin 3 mg tablet 3 mg PO HS #10 tabs 07/22/22 10/30/22 Rx lactulose 20 gram/30 mL oral 20 g (30 mL) PO TID #2,880 mL 07/31/22 10/30/22 Rx solution hydroxyzine HCl 25 mg tablet 25 mg PO TID PRN Itching 08/25/22 10/30/22 History amlodipine 5 mg tablet (Norvasc) 10 mg PO DAILY 30 days #60 tabs 09/04/22 10/30/22 Rx acetaminophen 500 mg tablet 1,000 mg PO BID PRN Pain 09/14/22 10/30/22 History levothyroxine 137 mcg capsule 137 mcg PO DAILY #30 caps 09/16/22 10/30/22 Rx albuterol sulfate 90 mcg/actuation 1 inh inhalation QID PRN shortness 10/17/22 10/30/22 Rx aerosol inhaler of breath or wheezing #6.7 grams Laboratory Tests 10/30/22 10/30/22 10/30/22 09:14 09:14 09:14 WBC 5.2 K/mm3 K/mm3 (4.5-10.0) RBC 2.07 M/mm3 L M/mm3 (4.2-5.4) Hgb 6.5 g/dL L* g/dL (12.0-15.0) Hct 21.2 % L % (37.0-47.0) MCV 102.4 fl H fl (80-100) MCH 31.4 pg pg (26-34) MCHC 30.7 g/dl L g/dl (32-36) RDW 18.2 % H % (11.5-14.5) Plt Count 109 k/mm3 L k/mm3 (150-375) MPV 10.2 fl fl (7.4-10.4) Immature Gran % (Auto) 1.0 % H % (0-0.5) Neut % (Auto)
[2022-10-31] MEDS: BENZOCAINE (*SP) 60 ML SPRAY CAN (HURRICAINE) 1 SPRAY MUCOUS MEM (09:38)
[2022-10-31] MEDS: amLODIPine BESYLATE 5 MG TABLET 10 MG PO (11:10)
[2022-10-31] MEDS: PANTOPRAZOLE 40 MG TABLET PO (11:12)
[2022-10-31] MEDS: lamoTRIgine 50 MG TABLET PO (11:13)
[2022-10-31] MEDS: lamoTRIgine 100 MG TABLET PO (11:13)
[2022-10-31] MEDS: LACTULOSE 20 GM/30 ML UDC PO (11:14)
[2022-10-31] MEDS: FERROUS SULFATE 324 MG TABLET PO (11:14)
[2022-10-31] MEDS: GABAPENTIN 300 MG CAPSULE 600 MG PO ×2 (11:14→13:46)
[2022-10-31] MEDS: FUROSEMIDE 40 MG TABLET PO (12:02)
[2022-10-31] MEDS: ESCITALOPRAM OXALATE 5 MG TABLET PO (12:02)
--- NOTE | 2022-10-31 12:05 | PM.IMPN ---
Progress Note: A&P Assessment and Plan (1) Acute on chronic anemia: Code(s): D64.9 - Anemia, unspecified Status: Acute Assessment and Plan: Hemoglobin improved after 2 units PRBC transfusion. GI consulted. Plan for EGD noted (2) Elevated troponin: Code(s): R77.8 - Other specified abnormalities of plasma proteins Status: Acute Assessment and Plan: Likely demand ischemia (3) Heart failure with preserved ejection fraction: Code(s): I50.30 - Unspecified diastolic (congestive) heart failure Status: Acute Assessment and Plan: Stable. 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 Monitor (5) Type 2 diabetes mellitus with chronic kidney disease: Qualifiers: Diabetes mellitus oysterman insulin use: without [place] use Chronic kidney disease stage: stage 3 (moderate) Chronic kidney disease stage 3 subtype: stage 3b (GFR 30-44) Qualified Code(s): E11.22 - Type 2 diabetes mellitus with diabetic chronic kidney disease; N18.32 - Chronic kidney disease, stage 3b Code(s): E11.22 - Type 2 diabetes mellitus with diabetic chronic kidney disease Status: Chronic Assessment and Plan: Continue sliding scale insulin along with Lantus. Accu-Cheks AC and HS (6) Hypothyroidism: Qualifiers: Hypothyroidism type: acquired Qualified Code(s): E03.9 - Hypothyroidism, unspecified Code(s): E03.9 - Hypothyroidism, unspecified Status: Acute Assessment and Plan: Continue levothyroxine at home dose Subjective Date/time seen: 10/31/22 12:05 Review of Systems Review of Systems: All systems reviewed & are unremarkable except as noted in HPI and below Exam Const: Other: Well-developed, nontoxic-appearing early female sitting up in bed. Weight: 73.1 kilograms. BMI: 32.5. HENMT: Other: Normocephalic, atraumatic. Nares patent bilaterally. Oral mucosa moist. Eyes: Other: Pupils are reactive. Extraocular motions intact. Sclerae anicteric. Neck: Other: Supple. No JVD. Resp: Other: Respirations are nonlabored and she is speaking in full sentences. Faint crackles at the bases with some expiratory wheezing. Cardio: Other: Regular rate rhythm with S1-S2. 3/6 systolic murmur at the upper sternal border. GI: Other: Abdomen is soft, nontender, and protuberant with positive bowel sounds. No guarding or rebound tenderness. Skin: Other: Warm, dry, pale. Neuro: Other: Alert. Cranial nerves 2-12 are grossly intact. No gross focal deficits schedule conversation. Extrem: Other: No cyanosis or clubbing. She has 1 to 2+ bilateral lower extremity edema which seems to be chronic for this patient. Peripheral pulses palpable. Psych: Other: Pleasant and cooperative with appropriate mood and affect. She is in good spirits. Objective Data Vital Signs Vital Signs: Vital Signs - 24 hr 10/30/22 12:35 10/30/22 12:16 10/30/22 12:31 Temperature Pulse Rate 55 L 56 L 56 L Respiratory Rate 16 15 15 Blood Pressure Pulse Oximetry 99 Oxygen Delivery Oxygen Flow Rate 10/30/22 12:41 10/30/22 12:43 10/30/22 12:45 Temperature Pulse Rate 53 L 56 L Respiratory Rate 12 20 Blood Pressure Pulse Oximetry Oxygen Delivery Room Air Oxygen Flow Rate 10/30/22 13:00 10/30/22 13:15 10/30/22 13:35 Temperature Pulse Rate 53 L 56 L Respiratory Rate 12 16 23 H Blood Pressure Pulse Oximetry 100 100 100 Oxygen Delivery Oxygen Flow Rate 10/30/22 13:37 10/30/22 13:38 10/30/22 13:45 Temperature Pulse Rate Respiratory Rate Blood Pressure 134/42 L Pulse Oximetry 100 100 100 Oxygen Delivery Oxygen Flow Rate 10/30/22 13:46 10/30/22 13:47 10/30/22 14:00 [place]
--- NOTE | 2022-10-31 12:33 | PM.DS ---
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 She is known to the hospitalist service with several recent admissions for acute on chronic anemia and was just discharged from this facility on 10/17/2022 after being treated for the same. She was stable with blood transfusion and repeat endoscopy was not pursued as an EGD done just 1 month prior showed nonbleeding esophageal varices and gastritis. It is noted that she has also followed with Dr. Hartman and has been receiving erythropoietin injections. She has been doing okay since that time however over the last couple of days she has once again started to feel fatigued, tired, and short of breath. Her stools are frequently dark due to iron supplementation however stool was Hemoccult positive. Once again her hemoglobin is low at 6.5 and she is being admitted in this setting for blood transfusion and GI consultation. Patient was given 2 units of PRBC transfusion. GI was consulted. Patient underwent EGD this morning which showed esophageal varices which are not new. He also had some non reflux nursing disease. GI is planning to do a small bowel follow-through as an outpatient. At this time patient's hemoglobin is stable and she is tolerating a regular diet and is being discharged home. Time Spent with Patient Time attestation: Total time spent providing and/or coordinating discharge services: Exam Const: General: alert Orientation/consciousness: patient oriented x3 Resp: Auscultation: clear to auscultation bilaterally Cardio: Rhythm: regular rhythm GI: GI Palp: Yes Soft to palpation, No Tenderness to palpation present (GI), Yes No hepatosplenomegaly present and No Ascites present Auscultation: normal bowel sounds Skin: General skin exam: no rashes or lesions noted, no ecchymosis, no petechiae and pallor Neuro: General: patient oriented x3 DS: Data Data Completed and Pending Labs on day of discharge: Labs from last 24 hours 10/31/22 10/31/22 10/31/22 08:32 02:00 01:59 WBC RBC Hgb Cancelled Hct Cancelled MCV MCH MCHC RDW Plt Count MPV Sodium 138 Potassium 4.0 Chloride 107 Carbon Dioxide 22 Anion Gap 9 BUN 33 H Creatinine 2.20 H Estim Creat Clear Calc Not Reportable Estimated GFR 22 L Glucose 164 H POC Capillary Glucose 146 H Calcium 8.2 L Magnesium 2.2 Troponin I 0.476 H* Influenza A (RT-PCR) Influenza B (RT-PCR) SARS-CoV-2 RNA (RT-PCR) Blood Type Antibody Screen Enhanced Crossmatch 10/31/22 10/30/22 10/30/22 01:59 23:39 20:32 WBC 5.5 RBC 2.91 L Hgb 8.9 L Hct 27.5 L MCV 94.5 D MCH 30.6 MCHC 32.4 RDW 18.9 H Plt Count 113 L MPV 10.4 Sodium Potassium Chloride Carbon Dioxide Anion Gap BUN Creatinine Estim Creat Clear Calc Estimated GFR Glucose POC Capillary Glucose 222 H 316 H Calcium Magnesium Troponin I Influenza A (RT-PCR) Influenza B (RT-PCR) SARS-CoV-2 RNA (RT-PCR) Blood Type Antibody Screen Enhanced Crossmatch 10/30/22 10/30/22 10/30/22 12:16 11:35 09:14 WBC RBC Hgb Hct MCV MCH MCHC RDW Plt Count MPV
== END 2022-10-31 14:25 | disposition home or self-care (01) ==
LOC: ANHED 09:24 → ANHIMU 15:03
PROVIDERS: Internal Medicine Gastroenterology; Physician Assistant; Admitting Provider Internal Medicine; Emergency Provider Emergency Medicine; PCP Internal Medicine; Visit Provider Hospitalist
PROC: 0DJ08ZZ Inspection of Upper Intestinal Tract, Via Natural or Artificial Opening Endoscopic (ICD-10-PCS; CPT 43235; principal; 2022-10-31 14:45)
DX: D64.9 Anemia, unspecified (principal); R19.5 Other fecal abnormalities; I50.32 Chronic diastolic (congestive) heart failure; K75.81 Nonalcoholic steatohepatitis (NASH); I85.00 Esophageal varices without bleeding; K76.82 Hepatic encephalopathy; R06.01 Orthopnea; I13.0 Hypertensive heart and chronic kidney disease with heart failure and stage 1 through stage 4 chronic kidney disease, or unspecified chronic kidney disease; E11.22 Type 2 diabetes mellitus with diabetic chronic kidney disease; N18.4 Chronic kidney disease, stage 4 (severe); J44.9 Chronic obstructive pulmonary disease, unspecified; M19.90 Unspecified osteoarthritis, unspecified site; E11.42 Type 2 diabetes mellitus with diabetic polyneuropathy; K74.69 Other cirrhosis of liver; I35.0 Nonrheumatic aortic (valve) stenosis; K21.9 Gastro-esophageal reflux disease without esophagitis; K58.9 Irritable bowel syndrome, unspecified; M81.0 Age-related osteoporosis without current pathological fracture; R77.8 Other specified abnormalities of plasma proteins; F32.A Depression, unspecified; E03.9 Hypothyroidism, unspecified; E78.5 Hyperlipidemia, unspecified; J81.1 Chronic pulmonary edema; J90 Pleural effusion, not elsewhere classified; I45.10 Unspecified right bundle-branch block; R94.31 Abnormal electrocardiogram [ECG] [EKG]; F41.9 Anxiety disorder, unspecified; Z86.73 Personal history of transient ischemic attack (TIA), and cerebral infarction without residual deficits; Z87.891 Personal history of nicotine dependence; Z79.4 Long term (current) use of insulin; Z79.1 Long term (current) use of non-steroidal anti-inflammatories (NSAID); Z79.899 Other long term (current) drug therapy; Z82.49 Family history of ischemic heart disease and other diseases of the circulatory system; Z83.3 Family history of diabetes mellitus; Z82.3 Family history of stroke
CPT/HCPCS: 36415; 36430; 71046; 80048; 80053; 82948; 83735; 83880; 84484; 85025; 85027; 85610; 85730; 86850; 86900; 86901; 86902; 86922; 87636; 93005; 94640; 96374; 96376; 99285; A9270; G0378; J1815; J1940; J2704; J7050; J7120; P9016

== ENCOUNTER 2022-11-06 09:33 | Inpatient (IN) | payer MEDICARE, MEDICAID, SELFPAY ==
[2022-11-06] VITALS (14 sets, daily range): BP systolic 121–148; BP diastolic 41–65; PULSE 44–78; RESP 12–25; TEMP 36.5–36.6; O2SAT 91–100; BMI 34.8
--- NOTE | ~2022-11-06 | XR_ITS ---
XR chest 2V DATE: 11/06/2022 10:09 INDICATION: Shortness of breath. History of COPD, hypertension, type 2 diabetes mellitus. Prior smoke r. TECHNIQUE: AP and lateral views COMPARISON: 10/30/2022 PA and lateral chest FINDINGS: Heart size is borderline. There is pulmonary vascular congestion and redistribution. There is prominence of the fissures indicating subpleural edema. Deb B-lines are noted indicating inters titial edema. Minimal blunting of the costophrenic angles may indicate slight pleural effusions. The findings are consistent with congestive heart failure and pulmonary interstitial and subpleural edema . Minimal atelectasis or infiltrate at the lung bases. Diffuse osteopenia. IMPRESSION: Congestive heart failure, pulmonary interstitial and subpleural edema Minimal atelectasis at the lung bases Reviewed, dictated and finalized at location B. [employer] COMMUNICATIONS ASSOCIATE IMPRESSION: Congestive heart failure, pulmonary interstitial and subpleural emeterio ma Minimal atelectasis at the lung bases
--- NOTE | ~2022-11-06 | US_ITS ---
EXAMINATION:US venous doppler LE BI INDICATION:Leg edema TECHNIQUE: Multiple grayscale, color flow and Doppler images of the bilateral lower extremity deep ve nous systems were obtained and reviewed. COMPARISON:10/14/2022 FINDINGS: The common femoral, superficial femoral and popliteal veins demonstrate normal respiratory variation, augmentation and compressibility. Color flow is also seen within the posterior tibial, pe roneal, greater saphenous and profunda veins. IMPRESSION: 1: No lower extremity deep venous thrombosis. Reviewed, dictated and finalized at location A. SURY ANALYST
--- NOTE | 2022-11-06 09:38 | ECG_ITS ---
Measurements Intervals [place] Rate: 50 P: 44 TN: 219 QRS: -45 QRSD: 165 T: 8 QT: 514 QTc: 469 Interpretive Statements SINUS BRADYCARDIA WITH FIRST DEGREE AV BLOCK MARKED LEFT AXIS DEVIATION [QRS AXIS < -30] RIGHT BUNDLE BRANCH BLOCK [120+ ms QRS DURATION, UPRIGHT V1, 40+ ms S IN I/aVL/V4/V5/V6] COMPARED TO ECG 10/30/2022 08:38:05 FIRST DEGREE AV BLOCK NOW PRESENT Electronically Signed On 11-07-2022 7:26:07 MIXING ROLL OPERATOR by Chester Velez M.D.
[2022-11-06 10:01] LABS: Basophils Percent Auto 0.9 % (0.2-1.2); Eosinophils Absolute Auto 0.2 K/mm3 (0-0.3); Eosinophils Percent Auto 3.9 % (0-4.4); Hematocrit 25.3 % (37.0-47.0); Hemoglobin 7.9 g/dL (12.0-15.0); Immature Granulocyte Absolute 0.03 K/mm3 (0.00-0.031); Immature Granulocyte Percent A 0.7 % (0-0.5); Lymphocytes Absolute Auto 0.99 K/mm3 (0.9-3.2); Mean Corpuscular HGB Conc 31.2 g/dl (32-36); Mean Corpuscular Hemoglobin 30.4 pg (26-34); Mean Corpuscular Volume 97.3 fl (80-100); Mean Platelet Volume 10.4 fl (7.4-10.4); Monocytes Absolute Auto 0.3 K/mm3 (0.1-0.6); Monocytes Percent Auto 7.7 % (2.6-8.5); Neutrophils Absolute Auto 2.8 K/mm3 (1.3-6.7); Neutrophils Percent Auto 63.8 % (45.5-73.1); Platelet Count Result 116 k/mm3 (150-375); Red Cell Distribution Width 17.7 % (11.5-14.5); White Blood Count 4.3 K/mm3 (4.5-10.0)
[2022-11-06 10:09] LABS: Alanine Aminotransferase 26 U/L (6-35); Albumin Level 3.6 g/dL (3.5-5.1); Alkaline Phosphatase 375 U/L (38-126); Anion Gap 8 mmol/L (8-16); Aspartate Amino Transferase 46 U/L (14-36); Bilirubin,Total 0.4 mg/dL (0.2-1.3); Blood Urea Nitrogen 33 mg/dL (7-17); Calcium 7.9 mg/dL (8.4-10.2); Carbon Dioxide 20 mmol/L (22-30); Chloride 105 mmol/L (98-107); Estimated Glomerular Filt Rate 22; Glucose 223 mg/dL (65-110); Potassium 4.6 mmol/L (3.4-5.0); Sodium 133 mmol/L (137-145)
--- NOTE | 2022-11-06 10:56 | ED.GENADULT ---
HPI - General Adult General Chief complaint: Shortness of Breath/Dyspnea Stated complaint: SOB Time Seen by Provider: 11/06/22 10:45 Source: patient History of Present Illness HPI narrative: 77 years old white female came with shortness of breath. 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 GI work-up showed no source of bleeding. Patient has followed with Dr. Hartman and has been receiving erythropoietin injections. Patient does not take oxygen at home, complaining of shortness of breath on exertion over the last 2 days, denies any sneezing, runny nose, coughing, chest pain, fever, chills. Related Data Home Medications Medication Instructions Recorded Confirmed asenapine maleate 5 mg sublingual 5 mg sublingual Q12H 01/04/20 11/04/22 tablet (Saphris) escitalopram oxalate 5 mg tablet 5 mg PO DAILY 08/21/21 11/04/22 rosuvastatin 20 mg tablet 20 mg PO QHS 08/21/21 11/04/22 trazodone 100 mg tablet 300 mg PO HS 08/21/21 11/04/22 glucagon HCl 1 mg solution for 1 mg subcut Q20M PRN Hypoglycemia 02/13/22 11/04/22 injection (Glucagon (HCl) Emergency Kit) sodium chloride 0.65 % nasal spray 1 spray intranasal BID PRN Dry 02/13/22 11/04/22 aerosol (Saline Mist) Nasal Passages insulin glargine 100 unit/mL (3 9 unit subcut QHS 05/17/22 11/04/22 mL) subcutaneous pen (Lantus Solostar U-100 Insulin) furosemide 40 mg tablet 40 mg PO DAILY 07/18/22 11/04/22 gabapentin 600 mg tablet 600 mg PO TID 07/18/22 11/04/22 hydroxyzine HCl 25 mg tablet 25 mg PO TID PRN Itching 08/25/22 11/04/22 acetaminophen 500 mg tablet 1,000 mg PO BID PRN Pain 09/14/22 11/04/22 Allergies Allergy/AdvReac Type Severity Reaction Status Date / Time alendronate sodium Allergy Unknown Unknown Verified 11/04/22 09:06 amantadine Allergy Unknown Unknown Verified 11/04/22 09:06 benztropine Allergy Unknown Unknown Verified 11/04/22 09:06 chlorpromazine Allergy Unknown Unknown Verified 11/04/22 09:06 levofloxacin Allergy Unknown Unknown Verified 11/04/22 09:06 Macrolide Antibiotics Allergy Unknown UNKNOWN Verified 11/04/22 09:06 REACTION mirtazapine Allergy Unknown Unknown Verified 11/04/22 09:06 Quinolones Allergy Unknown Unknown Verified 11/04/22 09:06 topiramate Allergy Unknown Unknown Verified 11/04/22 09:06 Review of Systems Review of Systems: All systems reviewed & are unremarkable except as noted in HPI and below PMFSH Past Medical History Medical History Anemia Anxiety Aortic stenosis Moderate on echocardiogram in November 2021. Arthritis Asthma Bipolar disorder Cerebrovascular accident Chronic diastolic congestive heart failure (12/2019) Chronic kidney disease, stage 4 (severe) Chronic obstructive pulmonary disease PFTs 06/28/2021: Moderate obstructive abnormality, moderate decreased diffusion capacity. Depression Diabetic peripheral neuropathy Diastolic dysfunction Echocardiogram 05/2021: EF 65-70%, grade 1 diastolic dysfunction, E/E elevated, global longitudinal strain mildly abnormal, moderate left atrial enlargement, moderate aortic valve sclerosis, mild aortic valve stenosis with peak velocity 239, mean gradient 14, aortic valve area 1.7 to, mild aortic valve regurgitation, Esophageal varices Gastroesophageal reflux disease Hepatic encephalopathy Hyperlipidemia Hypertension Hypothyroidism Irritable bowel syndrome 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 Ost
[2022-11-06] MEDS: ACETAMINOPHEN 325 MG TABLET 650 MG PO (11:46)
[2022-11-06 11:59] LABS: Alveolar/Arterial O2 Gradient 40.5 mmHg; Base Excess ABG -2.8 mEq/l (+/-2.0); Fractional Inspired Oxygen 21 %; HCO3 ABG 21.1 mEq/l (22.0-26.0); Oxygen Content ABG 11.9 %vol (16.0-22.0); Oxygen Saturation ABG 94.6 % (95.0-100.0); Oxyhemoglobin 92.2 % THb (90.0-100.0); PCO2 ABG 32.8 mmHg (35.0-45.0); PO2 FiO2 Ratio Arterial Blood 3.33 %; Total Hemoglobin 9.1 g/dL (12.0-18.0); pH ABG 7.426 (7.350-7.450)
[2022-11-06 12:00] LABS: Device ROOM AIR; Modified Allen's Test Pass; Site Drawn RIGHT RADIAL
[2022-11-06 12:28] LABS: Influenza A QL RT-PCR Negative (Negative); Influenza B QL RT-PCR Negative (Negative); RSV RNA, RT-PCR Negative (Negative); SARS-CoV-2 RNA PCR Negative
[2022-11-06 13:21] LABS: Troponin I 0.042 ng/mL (0.000-0.034)
[2022-11-06] MEDS: FUROSEMIDE INJ 40 MG/4 ML VIAL 20 MG IV PUSH ×2 (14:55→22:26)
[2022-11-06 15:02] LABS: NT Pro B Type Natriuretic Pept 1470 pg/mL (5-100); Troponin I 0.037 ng/mL (0.000-0.034)
--- NOTE | 2022-11-06 20:56 | PM.IMHP ---
H&P: HPI History of Present Illness Date/Time: 11/06/22 20:56 Chief Complaint: Shortness of breath Narrative: This is a 77-year-old female patient who does have a history of having CHF and COPD. The patient was recently discharged from our hospital on October 17, 2022. The patient does not wear oxygen at home. Her shortness of breath has been worse over the last 2 days. Her heart rate has been in the 40s to 50s. Patient had oxygen applied at 2 L per nasal cannula in the emergency room. Her low was recorded pulse oximeter was 91. Her H&H is low at 7.9 and 25.3. The patient previously had a GI workup. ABGs her pH is 7.46 CO2 32.8 and PO2 was 70.0. Sodium 133. Creatinine is 2.2 which is her baseline. Her glucose was 223. AST slightly elevated at 46 and alkaline phosphatase 375. Her troponin 0.037, 0.042, and 0.040. This is her baseline troponin level. Chest x-ray was read as congestive heart failure pulmonary interstitial and subpleural edema. Minimal atelectasis at the lung bases. She was given Lasix and Tylenol in the emergency room. The patient is being admitted to inpatient status on the date of service of 11/06/2022 Review of Systems Review of Systems: See HPI All systems reviewed & are unremarkable except as noted in HPI and below Constitutional: Constitutional: Reports as per HPI and Reports no additional constitutional complaints Eyes: Eyes: Reports as per HPI and Reports no additional eye complaints ENT: Reports system reviewed and no additional complaints, except as documented and Reports Normal hearing present Cardiovascular: Cardiovascular: Reports no additional cardiovascular complaints Respiratory: Respiratory: Reports no additional respiratory complaints and Reports no additional respiratory complaints Gastrointestinal: Gastrointestinal: Reports as per HPI and Reports no additional gastrointestinal complaints Musculoskeletal: Musculoskeletal: Reports no additional musculoskeletal complaints Integumentary/Breasts: Skin/Breast: Reports system reviewed and no additional complaints, except as docu and Reports as per HPI Neurologic: Reports system reviewed and no additional complaints, except as documented, Reports as per HPI and Reports Normal hearing present Psychiatric: Psychiatric: Reports no additional psychiatric complaints and Reports as per HPI Endocrine: Endocrine: Reports no additional endocrine complaints Hematologic/Lymphatic: Hematologic/Lymphatic: Reports no additional hematologic/lymphatic complaints Allergic/Immunologic: Allergic/Immunologic: Reports no additional allergic/immunologic complaints [facility] Past Medical History Medical History (Updated 11/06/22 @ 21:25 by Qing Irene NP) Acute on chronic anemia Acute on chronic diastolic (congestive) heart failure Acute on chronic diastolic CHF (congestive heart failure) Acute renal failure superimposed on stage 3 chronic kidney disease Acute UTI Anemia Anemia Anemia Anxiety Aortic stenosis Moderate on echocardiogram in November 2021. Arthritis Asthma Bipolar disorder Cerebrovascular accident CHF (congestive heart failure) CHF (congestive heart failure) Chronic diastolic congestive heart failure (12/2019) Chronic kidney disease, stage 4 (severe) Chronic obstructive pulmonary disease PFTs 06/28/2021: Moderate obstructive abnormality, moderate decreased diffusion capacity. COPD exacerbation Depression Diabetic peripheral neuropathy Diastolic dysfunction Echocardiogram 05/2021: EF 65-70%, grade 1 diastolic dysfunction, E/E elevated, global longitudinal strain mildly abnormal, moderate left atrial enlargement, moderate aortic valve sclerosis, mild aortic valve stenosis with peak velocity 239, mean gradient 14, aortic valve area 1.7 to, mild aortic valve regurgitation, Elevated troponin Esophageal varices Gastroesophageal reflux disease Hepatic encephalopathy Hyperlipidemia Hypertension Hypothyroidism Irritable bowel syndrome
[2022-11-06] MEDS: GABAPENTIN 300 MG CAPSULE 600 MG PO (22:12)
[2022-11-06] MEDS: traZODone HCL 50 MG TABLET 300 MG PO (22:12)
[2022-11-06] MEDS: ROSUVASTATIN 10 MG TABLET 20 MG PO (22:12)
[2022-11-06] MEDS: lamoTRIgine 100 MG TABLET PO (22:13)
[2022-11-06] MEDS: MELATONIN 3 MG TABLET PO (22:13)
[2022-11-06] MEDS: lamoTRIgine 50 MG TABLET PO (22:13)
[2022-11-06] MEDS: INSULIN GLARGINE (*BKC) 100 UNITS/ML 9 UNITS SUB-Q (22:26)
--- NOTE | 2022-11-06 22:34 | PHAR ---
Pharmacy verified home med: * USE FROM HOME * ASENAPINE (SAPHRIS) 5 MG SUBLINGUAL TABLET DISSOLVE 1 TABLET UNDER THE TONGUE TWICE DAILY AT 8 AM AND 8 PM
[2022-11-06 22:35] LABS: Glucose Point of Care 190 mg/dl (65-105)
[2022-11-06 22:57] LABS: Hematocrit 24.9 % (37.0-47.0); Hemoglobin 7.6 g/dL (12.0-15.0)
[2022-11-06 23:16] LABS: Hemoglobin A1C 6.3 % (<5.7)
[2022-11-07] VITALS (14 sets, daily range): BP systolic 114–134; BP diastolic 40–52; PULSE 43–60; RESP 16–20; TEMP 36–37; O2SAT 97–100
--- NOTE | 2022-11-07 | ECHO_ITS ---
Patient Info Name: Nisha Sigala Age: 77 years : 1945 Gender: Female Ht: 59 in Wt: 172 lbs BSA: 1.84 m2 HR: 51 bpm BP: 121 / 40 mmHg Heart Rhythm: Sinus Rhythm Technical Quality: Good Exam Date: 11/07/2022 9:28 AM Exam Location: [facility] Pulmonary Patient Status: Inpatient Admit Date: 11/06/2022 Staff Ordering Physician: Qing Irene NP Optometrist President/Practice Owner: Kaylah Mckinney RDCS Attending Provider: Raffaele Hogue MD Referring Physician: Maria Victoria KIDD; Exam Type: CA echo doppler color flow Study Info Indications I50.9 - Heart failure, unspecified Complete two-dimensional, color flow and Doppler transthoracic echocardiogram is performed. Summary 1. Complete two-dimensional, color flow and Doppler transthoracic echocardiogram is performed. 2. Left ventricular hypertrophy with hyperdynamic systolic contractility and grade 2 diastolic noncompliance. 3. Aortic valve stenosis which is severe by Doppler but not by direct visualization were stenosis appears mild. 4. Large left atrium. 5. Trivial amount of MR. Left Ventricle Left ventricular chamber dimension is normal. Left ventricular systolic function is hyperdynamic, estimated at Empty. There is moderate concentric increased left ventricular wall thickness. The left ventricular diastolic function is grade II diastolic dysfunction. Right Ventricle Right ventricular chamber dimension is normal. Left Atria Left atrial chamber dimension is mildly enlarged. Right Atria Right atrial chamber dimension is normal. Aortic Valve The aortic valve is trileaflet. There is moderate aortic valve sclerosis. There is moderate aortic valve stenosis with a peak velocity of 382 cm/s, mean gradient of 35 mmHg, and aortic valve area of 0.9 cm2. Pulmonic Valve The pulmonic valve is not well visualized. Mitral Valve The mitral valve has normal leaflets. The mitral valve annulus is mildly calcified. Tricuspid Valve The tricuspid valve leaflets are normal. Pericardium/Pleural The pericardium appears normal. There is trivial pericardial effusion. Aorta The aortic root size at the sinus of Valsalva is normal. Left Ventricular Outflow Tract Name Value Normal LVOT 2D LVOT Diameter 2.0 cm LVOT Doppler LVOT Peak Gradient 5 mmHg LVOT Mean Gradient 3 mmHg LVOT VTI 31 cm LVOT VTI/AV VTI Ratio 0.3 LVOT Stroke Volume 99 ml LVOT CO 14.8 l/min LVOT CI 8.1 l/min/m2 Pulmonic Valve Name Value Normal PV Doppler PV Peak Gradient 5 mmHg Mitral Valve Name Value
[2022-11-07 03:45] LABS: Hematocrit 26.6 % (37.0-47.0); Hemoglobin 7.8 g/dL (12.0-15.0)
[2022-11-07 03:59] LABS: Anion Gap 7 mmol/L (8-16); Blood Urea Nitrogen 34 mg/dL (7-17); Calcium 7.9 mg/dL (8.4-10.2); Carbon Dioxide 23 mmol/L (22-30); Chloride 109 mmol/L (98-107); Estimated Glomerular Filt Rate 22; Glucose 118 mg/dL (65-110); Lactic Acid Reflex 1.1 mmol/L (0.7-2.0); Magnesium 2.5 mg/dL (1.6-2.3); Phosphorus 4.1 mg/dL (2.5-4.5); Potassium 4.6 mmol/L (3.4-5.0); Sodium 139 mmol/L (137-145)
[2022-11-07 05:11] LABS: Free T4 Free Thyroxine Reflex 0.74 ng/dL (0.78-2.19)
[2022-11-07] MEDS: LEVOTHYROXINE SODIUM 25 MCG TABLET PO (05:54)
[2022-11-07] MEDS: LEVOTHYROXINE SODIUM 112 MCG TABLET PO (05:55)
[2022-11-07] MEDS: UMECLIDINIUM/VILANTEROL 62.5-25 MCG ELLIPTA 1 PUFF INHALATION (07:57)
[2022-11-07 08:55] LABS: Glucose Point of Care 218 mg/dl (65-105)
[2022-11-07 09:14] LABS: Hematocrit 26.4 % (37.0-47.0); Hemoglobin 7.9 g/dL (12.0-15.0)
[2022-11-07] MEDS: INSULIN ASPART (*BKC) 100 UNITS/ML SUB-Q (09:25)
[2022-11-07] MEDS: LACTULOSE 20 GM/30 ML UDC PO ×3 (09:26→17:12)
[2022-11-07] MEDS: PROPRANOLOL HCL 10 MG TABLET PO ×2 (09:26→20:15)
[2022-11-07] MEDS: GABAPENTIN 300 MG CAPSULE 600 MG PO ×3 (09:26→17:12)
[2022-11-07] MEDS: ESCITALOPRAM OXALATE 5 MG TABLET PO (09:26)
[2022-11-07] MEDS: FUROSEMIDE INJ 40 MG/4 ML VIAL 20 MG IV PUSH ×2 (09:26→20:12)
[2022-11-07] MEDS: amLODIPine BESYLATE 5 MG TABLET 10 MG PO (09:26)
[2022-11-07] MEDS: PANTOPRAZOLE SODIUM IV 40 MG VIAL IV PUSH ×2 (09:26→20:13)
[2022-11-07] MEDS: lamoTRIgine 100 MG TABLET PO ×2 (09:26→20:13)
[2022-11-07] MEDS: lamoTRIgine 50 MG TABLET PO ×2 (09:27→20:13)
[2022-11-07] MEDS: hydrOXYzine HCL 25 MG TABLET PO (09:32)
--- NOTE | 2022-11-07 09:38 | PM.IMPN ---
Progress Note: A&P Assessment and Plan (1) Acute exacerbation of CHF (congestive heart failure): Code(s): I50.9 - Heart failure, unspecified Status: Acute Assessment and Plan: Cardiology consultation pending Diuresis with IV Lasix 20 mg q.12 Recheck echo pending Echo from April 2022 showed EF greater than 70%, grade 1 diastolic dysfunction, moderate aortic valve stenosis without pulmonary hypertension noted (2) Acute on chronic anemia: Code(s): D64.9 - Anemia, unspecified Status: Acute Assessment and Plan: Monitor hemoglobin q.6 hours Recent admission within EGD for GI bleed showing grade 1 varices nonerosive reflux as well as moderate diffuse gastritis Hemoglobin at discharge from that admission was 9.3, it was 7.9 at this admission Consider GI consultation Fecal occult blood pending (3) Bradycardia, sinus: Code(s): R00.1 - Bradycardia, unspecified Status: Acute Assessment and Plan: Asymptomatic, monitor Runs in the 50s (4) Bipolar disorder: Qualifiers: Active/Remission status: in full remission Most recent bipolar episode type: most recent episode unspecified type Qualified Code(s): F31.70 - Bipolar disorder, currently in remission, most recent episode unspecified Code(s): F31.9 - Bipolar disorder, unspecified Status: Acute Assessment and Plan: Continue home bipolar medications, stable (5) Anemia in chronic kidney disease (CKD): Code(s): N18.9 - Chronic kidney disease, unspecified; D63.1 - Anemia in chronic kidney disease Status: Acute (6) COPD (chronic obstructive pulmonary disease): Code(s): J44.9 - Chronic obstructive pulmonary disease, unspecified Status: Chronic Assessment and Plan: Stable, continue home meds (7) Elevated troponin: Code(s): R77.8 - Other specified abnormalities of plasma proteins Status: Acute Assessment and Plan: Stable, do not suspect acute cardiac etiology (8) Gastroesophageal reflux disease: Code(s): K21.9 - Gastro-esophageal reflux disease without esophagitis Status: Acute Assessment and Plan: Continue IV PPI (9) Hypothyroidism: Qualifiers: Hypothyroidism type: acquired Qualified Code(s): E03.9 - Hypothyroidism, unspecified Code(s): E03.9 - Hypothyroidism, unspecified Status: Acute Assessment and Plan: Check TSH pending, continue home levothyroxine Concern for noncompliance due to long history of elevated TSH despite levothyroxine therapy (10) Insulin dependent diabetes mellitus: Status: Acute Assessment and Plan: Accu-Cheks, sliding scale insulin, continue home Lantus A1c is 6.3, monitor closely for hypoglycemia, may need looser control to prevent hypoglycemic episodes at her age (11) 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: Code(s): K75.81 - Nonalcoholic steatohepatitis (ZIEGLER); K74.60 - Unspecified cirrhosis of liver Status: Chronic Assessment and Plan: Follow GI outpatient (12) Hyperlipidemia: Code(s): E78.5 - Hyperlipidemia, unspecified Status: Acute Assessment and Plan: Continue home statin (13) Hypertension: Code(s): I10 - Essential (primary) hypertension Status: Acute Assessment and Plan: Continue Norvasc and propanolol for now May need to decrease propanolol dosing due to bradycardia if she becomes symptomatic, she is currently asymptomatic Plan DVT prophylaxis with SCDs GI prophylaxis not indicated Code status DNR Subjective Date/time seen: 11/07/22 09:38 Interval history: No overnight events noted. No chest pain or shortness of breath. No nausea, vomiting or diarrhea. No fevers or chills. Patient states she feels much better than when she 1st came in. 97% on 2 L nasal cannula Review of Systems Review of Systems: 12 point review of systems was assessed and was negative except as noted in the HPI
--- NOTE | 2022-11-07 11:17 | PM.CNCAR ---
Assessment and Plan Assessment and plan (1) Aortic stenosis: Qualifiers: Cardiac valve disease etiology: nonrheumatic Qualified Code(s): I35.0 - Nonrheumatic aortic (valve) stenosis Code(s): I35.0 - Nonrheumatic aortic (valve) stenosis Status: Chronic Plan This is a 77-year-old lady with a rather complex situation. She has evidence of some decompensated left-sided heart failure in the setting of known significant aortic valve stenosis as well as significant anemia and renal insufficiency. It sounds like her anemia has been attributed to chronic disease related to her kidney disease she also apparently has a history of liver disease as well. The details of that are not aware available to me as I dictate this note. Is obviously concerning that she has significant aortic valve stenosis contributing to all of this. She is appropriately receiving IV furosemide at this time and hopefully will improve with that. Today's echocardiogram will be read a little later in the day and I will provide follow-up after review those findings. She was certainly be a high risk patient for aortic valve replacement given her comorbidities of significant anemia renal and hepatic disease. For some reason her chart also has DNR orders on it. I will discuss this with the patient subsequently in terms of whether she wishes to be considered a candidate for aortic valve replacement which generally is inconsistent with DNR request. Chester Velez MD [facility] History of Present Illness History of Present Illness Consult date/time: 11/07/22 11:17 Consult reason: congestive heart failure Reason For Visit: Dyspnea,CHF,Elevated troponin,Anemia Narrative: This is a 77-year-old woman I am seeing at the request of the hospitalist because of concern regarding congestive heart failure. The patient is unknown to me prior to this consultation today. She reports that she is not known to have any significant cardiac problems in the past. She has been under the care of Dr. Alcocer her primary care needs. She carries the diagnosis of hypertension some chronic kidney disease and the recent development of significant anemia with pancytopenia which has been untreated he and evaluated here at [facility] in the last couple of months. She presented in August of this year significantly anemic with a hemoglobin of about 5 g received a transfusion of packed red cells and was seen in consultation by Hematology and Gastroenterology. I do not believe there was any significant GI pathology found she does not have any overt bleeding and her it red cell indices appear to be normocytic. She is also neutropenic and thrombocytopenic as well. Hematology consultation was also requested she has been receiving Procrit and had a bone marrow aspiration done last month for further evaluation of this. I do not see any follow-up notes regarding those findings. The patient has been in the hospital a number of times complaining of shortness of breath. I previous admissions her chest x-ray shows some modest pulmonary vascular congestion. Admission to the hospital yesterday's chest x-ray looked a bit more prominent in that regard. She had an echocardiogram done in the early part of this year that demonstrated left ventricular hypertrophy with vigorous systolic function and significant aortic valve stenosis with a valve area of about 1 cm2. She tells me that she was not aware of this diagnosis of valvular heart disease. Her electrocardiogram shows sinus rhythm with a first-degree AV block right bundle branch block and a leftward axis there are no changes in comparison to prior EKGs. Another echocardiogram was performed this morning at the request of the hospitalist that study has yet to be interpreted. She is wearing nasal cannula oxygen and appears to be relatively comfortable she is receiving intravenous furosemide and seems to be diuresing adequately. Review of Systems Constitution
[2022-11-07 12:11] LABS: Glucose Point of Care 162 mg/dl (65-105)
[2022-11-07 16:15] LABS: Hematocrit 24.9 % (37.0-47.0); Hemoglobin 7.6 g/dL (12.0-15.0)
[2022-11-07 16:51] LABS: Glucose Point of Care 155 mg/dl (65-105)
[2022-11-07] MEDS: ACETAMINOPHEN 500 MG TABLET 1000 MG PO (17:11)
[2022-11-07] MEDS: MELATONIN 3 MG TABLET PO (20:13)
[2022-11-07] MEDS: ROSUVASTATIN 10 MG TABLET 20 MG PO (20:15)
[2022-11-07] MEDS: traZODone HCL 50 MG TABLET 300 MG PO (20:16)
[2022-11-07 21:02] LABS: Glucose Point of Care 176 mg/dl (65-105)
[2022-11-07] MEDS: INSULIN GLARGINE (*BKC) 100 UNITS/ML 9 UNITS SUB-Q (23:08)
[2022-11-08] VITALS (16 sets, daily range): BP systolic 109–150; BP diastolic 33–42; PULSE 43–65; RESP 12–24; TEMP 36.2–36.9; O2SAT 94–100
[2022-11-08] MEDS: ACETAMINOPHEN 500 MG TABLET 1000 MG PO (01:03)
[2022-11-08] MEDS: LEVOTHYROXINE SODIUM 25 MCG TABLET PO (05:43)
[2022-11-08] MEDS: LEVOTHYROXINE SODIUM 112 MCG TABLET PO (05:43)
[2022-11-08 07:57] LABS: Glucose Point of Care 146 mg/dl (65-105)
[2022-11-08] MEDS: UMECLIDINIUM/VILANTEROL 62.5-25 MCG ELLIPTA 1 PUFF INHALATION (08:37)
[2022-11-08] MEDS: lamoTRIgine 50 MG TABLET PO ×2 (09:11→20:28)
[2022-11-08] MEDS: lamoTRIgine 100 MG TABLET PO ×2 (09:12→20:27)
[2022-11-08] MEDS: GABAPENTIN 300 MG CAPSULE 600 MG PO ×3 (09:12→16:04)
[2022-11-08] MEDS: ESCITALOPRAM OXALATE 5 MG TABLET PO (09:13)
[2022-11-08] MEDS: LACTULOSE 20 GM/30 ML UDC PO ×3 (09:13→16:03)
[2022-11-08] MEDS: PANTOPRAZOLE SODIUM IV 40 MG VIAL IV PUSH ×2 (09:14→20:28)
[2022-11-08 11:22] LABS: IFOB Positive Control Positive; Immunochemical Fecal Occult Bl Positive (N)
--- NOTE | 2022-11-08 11:31 | PM.PNCARD ---
Progress Note: A&P Assessment and Plan (1) Bradycardia, sinus: Code(s): R00.1 - Bradycardia, unspecified Status: Acute (2) Acute exacerbation of CHF (congestive heart failure): Code(s): I50.9 - Heart failure, unspecified Status: Acute (3) Aortic stenosis: Qualifiers: Cardiac valve disease etiology: nonrheumatic Qualified Code(s): I35.0 - Nonrheumatic aortic (valve) stenosis Code(s): I35.0 - Nonrheumatic aortic (valve) stenosis Status: Chronic Plan 77-year-old lady with some volume overload/CHF appears to be primarily related to a combination of anemia, diastolic dysfunction and some degree of aortic valve disease. As I mentioned in the echo report direct visualization of the valve demonstrates that the leaflet excursion is not severely restricted the valve is not significantly stenotic in my opinion. Fortunately she will not require workup as a candidate for aortic valve replacement at this time. She would benefit from a disc some additional IV loop diuretic at this time. Her IV furosemide has been placed on hold apparently because of hypotension although blood pressures in the chart are not significantly reduced. I am going to stop her propranolol since is a very low dose and she is bradycardic. Would recommend continuing IV furosemide for at least another day. Chester Velez MD [facility] Subjective Date/time seen: Date of service: 11/08/22 11:31 Interval history: Follow-up visit in this 77-year-old woman with: Shortness of breath physical exam and chest x-ray findings of some congestive heart failure. She also has aortic valve disease. Patient is says she is feeling little better this morning but still has shortness of breath with modest activity. Reviewed echocardiographic findings with the patient. Told her I do not believe her aortic valve disease is severe despite the Doppler findings and will she will not be needing to consider aortic valve replacement. She still is significantly anemic with a hemoglobin of about 7.5. Patient has no other complaints today. Exam Const: General: comfortable and no acute distress Other: Elderly lady who appears to be comfortable eating her lunch HENMT: Mouth: Yes moist mucous membranes Eyes: Sclera: sclerae normal Neck: Neck: supple and no JVD Other: Transmitted murmur to the carotids noted. Resp: Effort & Inspection: normal respiratory effort Other: Dullness at the bases and scant pulmonary rales are noted Cardio: Rate: regular rate Rhythm: regular rhythm Other: Continues to have a high-pitched systolic murmur at the base as described previously GI: GI Palp: Yes Soft to palpation Auscultation: normal bowel sounds Skin: General skin exam: normal color Neuro: Other: Alert and oriented Extrem: Other: Minimal amount of pretibial edema at this time Objective Data Vital Signs Vital Signs: Vital Signs - 24 hr 11/07/22 12:00 11/07/22 12:00 11/07/22 14:00 Temperature 36.3 C L Pulse Rate 49 L 56 L Respiratory Rate 20 Blood Pressure 120/48 L Pulse Oximetry 100 97 Oxygen Delivery Nasal Cannula Oxygen Flow Rate 2 11/07/22 12:00 11/07/22 16:00 11/07/22 16:00 Temperature 36.6 C Pulse Rate 48 L 56 L Respiratory Rate 16 Blood Pressure 128/42 L Pulse Oximetry 100 97 Oxygen Delivery Nasal Cannula Oxygen Flow Rate 2 11/07/22 16:00 11/07/22 18:00 11/07/22 20:15 Temperature Pulse Rate 51 L 53 L 55 L Respiratory Rate Blood Pressure Pulse Oximetry Oxygen Delivery Oxygen Flow Rate 11/07/22 20:00 11/07/22 20:00 11/08/22 00:00 Temperature 36.9 C 36.3 C L Pulse Rate 58 L 55 L 60 Respiratory Rate 18 16 16 Blood Pressure 134/52 L 127/38 L Pulse Oximetry 100 97 100 Oxygen Delivery Nasal Cannula Oxygen Flow Rate 2 11/07/22 20:00 11/07/22 22:00 11/08/22 00:00 Temperature Pulse Rate 60 55 L 60 Respiratory Rate 16 Blood Pressure Pu
[2022-11-08 12:02] LABS: Glucose Point of Care 248 mg/dl (65-105)
--- NOTE | 2022-11-08 12:21 | PM.IMPN ---
Progress Note: A&P Assessment and Plan (1) Acute exacerbation of CHF (congestive heart failure): Code(s): I50.9 - Heart failure, unspecified Status: Acute Assessment and Plan: cardiology consult. Patient has severe aortic stenosis will have to consider aortic replacement versus conservative management spoke to patient at length. Patient is DNR DNI patient will discuss with the son (2) Acute on chronic anemia: Code(s): D64.9 - Anemia, unspecified Status: Acute Assessment and Plan: Recent admission within EGD for GI bleed showing grade 1 varices nonerosive reflux as well as moderate diffuse gastritis Hemoglobin at discharge from that admission was 9.3, it was 7.9 at this admission GI consultation if continues to deteriorate will recheck hemoglobin patient poor candidate any type of surgery due to her aortic stenosis Fecal occult blood positive patient's current hemoglobin is 7.6 and hematocrit 24.9 (3) Bradycardia, sinus: Code(s): R00.1 - Bradycardia, unspecified Status: Acute Assessment and Plan: will have to hold beta-blockers if heart rate less than 60. Also holding any diuretic as patient's diastolic BP is 40 below (4) Bipolar disorder: Qualifiers: Active/Remission status: in full remission Most recent bipolar episode type: most recent episode unspecified type Qualified Code(s): F31.70 - Bipolar disorder, currently in remission, most recent episode unspecified Code(s): F31.9 - Bipolar disorder, unspecified Status: Acute Assessment and Plan: Continue home bipolar medications, stable (5) Anemia in chronic kidney disease (CKD): Code(s): N18.9 - Chronic kidney disease, unspecified; D63.1 - Anemia in chronic kidney disease Status: Acute Assessment and Plan: And gentle hydration. Avoid nephrotoxic drugs. Monitor antihypertensive drugs Avoid NSAIDs. Routine CMP monitor GFR. Monitor electrolytes potassium levels. Dose antibiotics depending on creatinine clearance (6) COPD (chronic obstructive pulmonary disease): Code(s): J44.9 - Chronic obstructive pulmonary disease, unspecified Status: Chronic Assessment and Plan: Patient advice to quit smoking. Bronchodilators. intensive Spirometry 2D echo reviewed Keeping BMI less than 25. Routine exercises. Pneumoniae and flu vaccines as advised Evaluation for home O2 if saturations less than 88% on room air (7) Elevated troponin: Code(s): R77.8 - Other specified abnormalities of plasma proteins Status: Acute Assessment and Plan: Stable, do not suspect acute cardiac etiology (8) Gastroesophageal reflux disease: Code(s): K21.9 - Gastro-esophageal reflux disease without esophagitis Status: Acute Assessment and Plan: currently on PPI (9) Hypothyroidism: Qualifiers: Hypothyroidism type: acquired Qualified Code(s): E03.9 - Hypothyroidism, unspecified Code(s): E03.9 - Hypothyroidism, unspecified Status: Acute Assessment and Plan: Check TSH pending, continue home levothyroxine Concern for noncompliance due to long history of elevated TSH despite levothyroxine therapy (10) Insulin dependent diabetes mellitus: Status: Acute Assessment and Plan: Yearly eye exam and foot exam. HBA1c 6.5 ( goal <7.0%) , Renal functions, Liver panel every 3 months Monitor vitamin B12 levels Optimize LM-inhibitor and statin Routine glucose monitoring. Watch for Hypoglycemia. 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
[2022-11-08 12:56] LABS: Hematocrit 26.1 % (37.0-47.0); Hemoglobin 7.9 g/dL (12.0-15.0); Mean Corpuscular HGB Conc 30.3 g/dl (32-36); Mean Corpuscular Hemoglobin 30.2 pg (26-34); Mean Corpuscular Volume 99.6 fl (80-100); Mean Platelet Volume 10.8 fl (7.4-10.4); Platelet Count Result 136 k/mm3 (150-375); Red Blood Count 2.62 M/mm3 (4.2-5.4); Red Cell Distribution Width 17.2 % (11.5-14.5); White Blood Count 2.8 K/mm3 (4.5-10.0)
[2022-11-08] MEDS: INSULIN ASPART (*BKC) 100 UNITS/ML SUB-Q (12:59)
[2022-11-08 13:18] LABS: Alanine Aminotransferase 30 U/L (6-35); Albumin Level 3.8 g/dL (3.5-5.1); Alkaline Phosphatase 402 U/L (38-126); Anion Gap 7 mmol/L (8-16); Aspartate Amino Transferase 55 U/L (14-36); Bilirubin,Total 0.5 mg/dL (0.2-1.3); Blood Urea Nitrogen 37 mg/dL (7-17); Calcium 8.3 mg/dL (8.4-10.2); Carbon Dioxide 25 mmol/L (22-30); Chloride 102 mmol/L (98-107); Estimated Glomerular Filt Rate 21; Glucose 262 mg/dL (65-110); Potassium 4.6 mmol/L (3.4-5.0); Sodium 134 mmol/L (137-145)
[2022-11-08 15:56] LABS: Glucose Point of Care 158 mg/dl (65-105)
[2022-11-08] MEDS: traZODone HCL 50 MG TABLET 300 MG PO (20:28)
[2022-11-08] MEDS: MELATONIN 3 MG TABLET PO (20:28)
[2022-11-08] MEDS: ROSUVASTATIN 10 MG TABLET 20 MG PO (20:28)
[2022-11-08 20:44] LABS: Glucose Point of Care 345 mg/dl (65-105)
[2022-11-08] MEDS: INSULIN ASPART (*BKC) 100 UNITS/ML 6 UNITS SUB-Q (22:06)
[2022-11-08] MEDS: INSULIN GLARGINE (*BKC) 100 UNITS/ML 12 UNITS SUB-Q (22:07)
[2022-11-09] VITALS (15 sets, daily range): BP systolic 103–137; BP diastolic 37–83; PULSE 51–92; RESP 16–24; TEMP 36.2–36.8; O2SAT 94–98
[2022-11-09] MEDS: LEVOTHYROXINE SODIUM 112 MCG TABLET PO (06:21)
[2022-11-09] MEDS: LEVOTHYROXINE SODIUM 25 MCG TABLET PO (06:21)
[2022-11-09] MEDS: LACTULOSE 20 GM/30 ML UDC PO ×3 (08:30→16:23)
[2022-11-09] MEDS: lamoTRIgine 50 MG TABLET PO ×2 (08:31→20:25)
[2022-11-09] MEDS: GABAPENTIN 300 MG CAPSULE 600 MG PO ×3 (08:31→16:23)
[2022-11-09] MEDS: lamoTRIgine 100 MG TABLET PO ×2 (08:32→20:25)
[2022-11-09] MEDS: ESCITALOPRAM OXALATE 5 MG TABLET PO (08:32)
[2022-11-09] MEDS: amLODIPine BESYLATE 5 MG TABLET 10 MG PO (08:33)
[2022-11-09] MEDS: PANTOPRAZOLE SODIUM IV 40 MG VIAL IV PUSH (08:33)
[2022-11-09 08:41] LABS: Glucose Point of Care 146 mg/dl (65-105)
[2022-11-09] MEDS: UMECLIDINIUM/VILANTEROL 62.5-25 MCG ELLIPTA 1 PUFF INHALATION (09:18)
[2022-11-09 09:50] LABS: Hematocrit 25.7 % (37.0-47.0); Hemoglobin 7.7 g/dL (12.0-15.0); Mean Corpuscular Hemoglobin 29.7 pg (26-34); Mean Corpuscular Volume 99.2 fl (80-100); Mean Platelet Volume 10.2 fl (7.4-10.4); Platelet Count Result 131 k/mm3 (150-375); Red Blood Count 2.59 M/mm3 (4.2-5.4); Red Cell Distribution Width 16.6 % (11.5-14.5); White Blood Count 2.7 K/mm3 (4.5-10.0)
[2022-11-09 10:02] LABS: Alanine Aminotransferase 26 U/L (6-35); Albumin Level 3.5 g/dL (3.5-5.1); Alkaline Phosphatase 371 U/L (38-126); Anion Gap 7 mmol/L (8-16); Aspartate Amino Transferase 43 U/L (14-36); Bilirubin,Total 0.4 mg/dL (0.2-1.3); Blood Urea Nitrogen 30 mg/dL (7-17); Calcium 8.2 mg/dL (8.4-10.2); Carbon Dioxide 23 mmol/L (22-30); Chloride 104 mmol/L (98-107); Estimated Glomerular Filt Rate 22; Glucose 229 mg/dL (65-110); Potassium 4.6 mmol/L (3.4-5.0); Sodium 134 mmol/L (137-145)
[2022-11-09 11:51] LABS: Glucose Point of Care 243 mg/dl (65-105)
[2022-11-09] MEDS: INSULIN ASPART (*BKC) 100 UNITS/ML SUB-Q (11:55)
--- NOTE | 2022-11-09 12:18 | PM.IMPN ---
Progress Note: A&P Assessment and Plan (1) Acute exacerbation of CHF (congestive heart failure): Code(s): I50.9 - Heart failure, unspecified Status: Acute Assessment and Plan: cardiology consult. Patient has severe aortic stenosis will have to consider conservative management spoke to patient at length. Patient is DNR DNI patient cardiology recommended to hold beta-blockers due bradycardia which I agree and also continue loop diuretics for fluid overload (2) Acute on chronic anemia: Code(s): D64.9 - Anemia, unspecified Status: Acute Assessment and Plan: Recent admission within EGD for GI bleed showing grade 1 varices nonerosive reflux as well as moderate diffuse gastritis Hemoglobin at discharge from that admission was 9.3, it was 7.9 at this admission GI consultation if continues to deteriorate will recheck hemoglobin patient poor candidate any type of surgery due to her aortic stenosis Fecal occult blood positive patient's current hemoglobin is 7.7 (3) Bradycardia, sinus: Code(s): R00.1 - Bradycardia, unspecified Status: Acute Assessment and Plan: will have to hold beta-blockers if heart rate less than 60. Also holding any diuretic as patient's diastolic BP is 40 below (4) Bipolar disorder: Qualifiers: Active/Remission status: in full remission Most recent bipolar episode type: most recent episode unspecified type Qualified Code(s): F31.70 - Bipolar disorder, currently in remission, most recent episode unspecified Code(s): F31.9 - Bipolar disorder, unspecified Status: Acute Assessment and Plan: Continue home bipolar medications, stable (5) Anemia in chronic kidney disease (CKD): Code(s): N18.9 - Chronic kidney disease, unspecified; D63.1 - Anemia in chronic kidney disease Status: Acute Assessment and Plan: And gentle hydration. Avoid nephrotoxic drugs. Monitor antihypertensive drugs Avoid NSAIDs. Routine CMP monitor GFR. Monitor electrolytes potassium levels. Dose antibiotics depending on creatinine clearance seen him creatinine has gone up to 2.5 a possible cause of his aortic stenosis followed by poor renal perfusion and also use of loop diuretics (6) COPD (chronic obstructive pulmonary disease): Code(s): J44.9 - Chronic obstructive pulmonary disease, unspecified Status: Chronic Assessment and Plan: Patient advice to quit smoking. Bronchodilators. intensive Spirometry Routine exercises. Pneumoniae and flu vaccines as advised Evaluation for home O2 if saturations less than 88% on room air (7) Elevated troponin: Code(s): R77.8 - Other specified abnormalities of plasma proteins Status: Acute Assessment and Plan: Stable, do not suspect acute cardiac etiology (8) Gastroesophageal reflux disease: Code(s): K21.9 - Gastro-esophageal reflux disease without esophagitis Status: Acute Assessment and Plan: currently on PPI (9) Hypothyroidism: Qualifiers: Hypothyroidism type: acquired Qualified Code(s): E03.9 - Hypothyroidism, unspecified Code(s): E03.9 - Hypothyroidism, unspecified Status: Acute Assessment and Plan: Check TSH pending, continue home levothyroxine Concern for noncompliance due to long history of elevated TSH despite levothyroxine therapy (10) Insulin dependent diabetes mellitus: Status: Acute Assessment and Plan: Yearly eye exam and foot exam. HBA1c 6.5 ( goal <7.0%) , Renal functions, Liver panel every 3 months Monitor vitamin B12 levels Optimize LM-inhibitor and statin Routine glucose monitoring. Watch for Hypoglycemia. 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
--- NOTE | 2022-11-09 13:42 | PM.PNCARD ---
Progress Note: A&P Assessment and Plan (1) Acute exacerbation of CHF (congestive heart failure): Code(s): I50.9 - Heart failure, unspecified Status: Acute Plan 77-year-old lady with evidence of some diastolic heart failure along with some at least moderate aortic valve stenosis and significant anemia. She does need some more diuresis I will order a dose of IV furosemide this afternoon. As I stated in my echo report direct visualization of her valve does not suggest that her valve is severely stenotic 1 can visualize mildly restricted leaflet excursion, despite the Doppler data I do not believe this valve is severely stenotic. I believe her shortness of breath/CHF is related to her valve disease, diastolic noncompliance as well as significant anemia. She would likely benefit from further diuresis and I will order 80 mg of Lasix today. Whenever she is discharged she needs to understand as well as her family that some shortness of breath is likely going to be persistent because of her persistent anemia. Chester Velez MD [facility] Subjective Date/time seen: Date of service: 11/09/22 13:42 Interval history: Follow-up visit in this 77-year-old lady with: Shortness of breath evidence of some CHF on exam and chest x-ray with moderate aortic valve stenosis and relatively severe anemia as the reasons for this. Reports that she still is feeling short of breath with modest activity. Upon review of her chart she has not been receiving a diuretic for the last couple of days. Patient and family had a variety of questions regarding her condition which were all discussed in detail. Exam Const: General: comfortable and no acute distress HENMT: Mouth: Yes moist mucous membranes Eyes: Sclera: sclerae normal Neck: Neck: supple and no JVD Resp: Effort & Inspection: normal respiratory effort Other: Breath sounds somewhat dull at the bases no obvious rales or wheezing Cardio: Rate: regular rate Rhythm: regular rhythm Other: High-pitched grade 2-3/6 crescendo decrescendo murmur of aortic stenosis audible at the base. GI: GI Palp: Yes Soft to palpation Auscultation: normal bowel sounds Skin: General skin exam: normal color Neuro: Other: Alert and appropriate Extrem: Other: Warm, well perfused no significant edema Objective Data Vital Signs Vital Signs: Vital Signs - 24 hr 11/08/22 14:00 11/08/22 16:00 11/08/22 16:00 Temperature 36.9 C Pulse Rate 55 L 53 L Respiratory Rate 20 Blood Pressure 132/34 L Pulse Oximetry 96 98 Oxygen Delivery Room Air 11/08/22 16:00 11/08/22 18:00 11/08/22 20:00 Temperature 36.2 C L Pulse Rate 53 L 54 L 56 L Respiratory Rate 18 Blood Pressure 136/40 L Pulse Oximetry 95 Oxygen Delivery 11/08/22 20:00 11/08/22 23:58 11/09/22 00:00 Temperature 36.4 C Pulse Rate 56 L 65 65 Respiratory Rate 18 18 18 Blood Pressure 150/40 H Pulse Oximetry 95 95 95 Oxygen Delivery Room Air Room Air 11/08/22 20:00 11/08/22 22:00 11/09/22 00:00 Temperature Pulse Rate 57 L 63 56 L Respiratory Rate Blood Pressure Pulse Oximetry Oxygen Delivery 11/09/22 02:00 11/09/22 04:00 11/09/22 04:00 Temperature 36.4 C L Pulse Rate 66 61 61 Respiratory Rate 20 Blood Pressure 118/46 L Pulse Oximetry 95 Oxygen Delivery 11/09/22 03:09 11/09/22 05:12 11/09/22 08:00 Temperature 36.8 C Pulse Rate 61 51 L 92 Respiratory Rate 20 24 H Blood Pressure 103/83 Pulse Oximetry 95 97 Oxygen Delivery Room Air 11/09/22 09:18 11/09/22 08:00 11/09/22 08:00 Temperature Pulse Rate 92 52 L 52 L Respiratory Rate 18 Blood Pressure Pulse Oximetry 96 Oxygen Delivery Room Air 11/09/22 10:00 11/09/22 12:00 Temperature 36.8 C Pulse Rate 58 L 58 L Respiratory Rate 16 Blood Pressure 137/37 L Pulse Oximetry 97 Oxygen Delivery Intake/Output Intake/Output: Intake & Output 11/06/22 11/07/22 11/08/2210/30
[2022-11-09] MEDS: FUROSEMIDE INJ 100 MG/10 ML VIAL 80 MG IV PUSH (14:52)
[2022-11-09] MEDS: ONDANSETRON INJ 4 MG/2 ML VIAL IV PUSH (14:54)
[2022-11-09 17:01] LABS: Glucose Point of Care 191 mg/dl (65-105)
[2022-11-09] MEDS: MELATONIN 3 MG TABLET PO (20:25)
[2022-11-09] MEDS: ROSUVASTATIN 10 MG TABLET 20 MG PO (20:25)
[2022-11-09] MEDS: PANTOPRAZOLE 40 MG TABLET PO (20:25)
[2022-11-09] MEDS: traZODone HCL 50 MG TABLET 300 MG PO (20:26)
[2022-11-09 20:30] LABS: Glucose Point of Care 355 mg/dl (65-105)
[2022-11-09] MEDS: INSULIN GLARGINE (*BKC) 100 UNITS/ML 12 UNITS SUB-Q (20:37)
[2022-11-10] VITALS (13 sets, daily range): BP systolic 115–135; BP diastolic 33–60; PULSE 48–86; RESP 12–20; TEMP 36.2–37.2; O2SAT 92–98
[2022-11-10] MEDS: LEVOTHYROXINE SODIUM 112 MCG TABLET PO (05:32)
[2022-11-10] MEDS: LEVOTHYROXINE SODIUM 25 MCG TABLET PO (05:32)
[2022-11-10 07:33] LABS: Hematocrit 26.9 % (37.0-47.0); Mean Corpuscular HGB Conc 29.7 g/dl (32-36); Mean Corpuscular Hemoglobin 29.7 pg (26-34); Mean Platelet Volume 10.3 fl (7.4-10.4); Platelet Count Result 146 k/mm3 (150-375); Red Blood Count 2.69 M/mm3 (4.2-5.4); Red Cell Distribution Width 16.5 % (11.5-14.5); White Blood Count 3.2 K/mm3 (4.5-10.0)
[2022-11-10 07:44] LABS: Alanine Aminotransferase 28 U/L (6-35); Alkaline Phosphatase 422 U/L (38-126); Anion Gap 7 mmol/L (8-16); Aspartate Amino Transferase 50 U/L (14-36); Bilirubin,Total 0.4 mg/dL (0.2-1.3); Blood Urea Nitrogen 30 mg/dL (7-17); Calcium 8.7 mg/dL (8.4-10.2); Carbon Dioxide 25 mmol/L (22-30); Chloride 105 mmol/L (98-107); Estimated Glomerular Filt Rate 23; Glucose 151 mg/dL (65-110); Potassium 4.5 mmol/L (3.4-5.0); Sodium 137 mmol/L (137-145)
[2022-11-10] MEDS: lamoTRIgine 100 MG TABLET PO ×2 (08:03→20:04)
[2022-11-10] MEDS: LACTULOSE 20 GM/30 ML UDC PO ×3 (08:03→18:49)
[2022-11-10] MEDS: GABAPENTIN 300 MG CAPSULE 600 MG PO ×3 (08:04→18:49)
[2022-11-10] MEDS: amLODIPine BESYLATE 5 MG TABLET 10 MG PO (08:04)
[2022-11-10] MEDS: ESCITALOPRAM OXALATE 5 MG TABLET PO (08:04)
[2022-11-10] MEDS: lamoTRIgine 50 MG TABLET PO ×2 (08:04→20:04)
[2022-11-10] MEDS: PANTOPRAZOLE 40 MG TABLET PO ×2 (08:05→20:04)
[2022-11-10 08:16] LABS: Glucose Point of Care 153 mg/dl (65-105)
--- NOTE | 2022-11-10 08:32 | PM.PNCARD ---
Progress Note: A&P Assessment and Plan (1) Acute exacerbation of CHF (congestive heart failure): Code(s): I50.9 - Heart failure, unspecified Status: Acute Assessment and Plan: She has grade II diastolic dysfunction. CHF has improved with several doses of IV diuretic. She has been given an additional dose of IV furosemide today which I agree with Unable to initiate any medical therapy such as LM/ARNI, ARB, or MRA, or SGLT2 inhibitor because of her renal function Probably will be able to resume her home oral furosemide deose tomorrow In regards to her aortic stenosis, will require routine outpatient follow up, no further work up recommended at this time. Subjective Date/time seen: 11/10/22 08:32 Interval history: Follow-up visit in this 77-year-old lady with: Shortness of breath evidence of some CHF on exam and chest x-ray with moderate aortic valve stenosis and relatively severe anemia as the reasons for this. Reports that she still is feeling short of breath with modest activity. Upon review of her chart she has not been receiving a diuretic for the last couple of days. Patient and family had a variety of questions regarding her condition which were all discussed in detail. Date of service 11/10/22: She is feeling better this morning and is denying any shortness of breath. She is on room air. H/H stable. Review of Systems Constitutional: Constitutional: Reports lethargy Eyes: Eyes: Reports no additional eye complaints ENT: Reports system reviewed and no additional complaints, except as documented Cardiovascular: Cardiovascular: Reports as per HPI and Reports dyspnea Respiratory: Respiratory: Reports dyspnea Gastrointestinal: Gastrointestinal: Reports no additional gastrointestinal complaints Musculoskeletal: Musculoskeletal: Reports no additional musculoskeletal complaints Integumentary/Breasts: Skin/Breast: Reports system reviewed and no additional complaints, except as docu Neurologic: Reports system reviewed and no additional complaints, except as documented Endocrine: Endocrine: Reports no additional endocrine complaints Hematologic/Lymphatic: Hematologic/Lymphatic: Reports no additional hematologic/lymphatic complaints Allergic/Immunologic: Allergic/Immunologic: Reports no additional allergic/immunologic complaints Exam Const: General: comfortable and no acute distress HENMT: Mouth: Yes moist mucous membranes Eyes: General: appearance normal, both eyes and all related structures Sclera: sclerae normal Neck: Neck: supple and no JVD Resp: Effort & Inspection: normal respiratory effort Auscultation: crackles (faint bibasilar crackles) Cardio: Rate: regular rate Rhythm: regular rhythm Heart sounds: Murmur heart sound present systolic II/, III/ and at the base GI: Auscultation: normal bowel sounds Skin: General skin exam: normal color Neuro: Other: Alert and appropriate Extrem: Other: Warm, well perfused no significant edema Objective Data Vital Signs Vital Signs: Vital Signs - 24 hr 11/09/22 09:18 11/09/22 10:00 11/09/22 12:00 Temperature 36.8 C Pulse Rate 92 58 L 58 L Respiratory Rate 18 16 Blood Pressure 137/37 L Pulse Oximetry 97 Oxygen Delivery 11/09/22 12:00 11/09/22 12:00 11/09/22 14:00 Temperature Pulse Rate 58 L 58 L 53 L Respiratory Rate Blood Pressure Pulse Oximetry 97 Oxygen Delivery Room Air 11/09/22 16:00 11/09/22 16:00 11/09/22 09:33 Temperature 36.3 C L Pulse Rate 60 60 92 Respiratory Rate 20 18 Blood Pressure 135/39 L Pulse Oximetry 94 Oxygen Delivery 11/09/22 16:00 11/09/22 18:00 11/09/22 20:00 Temperature 36.2 C L Pulse Rate 53 L 63 61 Respiratory Rate 16 Blood Pressure 129/42 L Pulse Oximetry 98 96 Oxygen Delivery Room Air 11/09/22 20:00 11/09/22 22:00 11/10/22 00:00 Temperature 36.9 C Pulse Rate 61 62 69 Respiratory Rate 16 Blood Pressure
[2022-11-10] MEDS: UMECLIDINIUM/VILANTEROL 62.5-25 MCG ELLIPTA 1 PUFF INHALATION (08:36)
--- NOTE | 2022-11-10 11:01 | PM.IMPN ---
Progress Note: A&P Assessment and Plan (1) Acute exacerbation of CHF (congestive heart failure): Code(s): I50.9 - Heart failure, unspecified Status: Acute Assessment and Plan: cardiology consult. Patient has severe aortic stenosis will have to consider conservative management spoke to patient at length. Patient is DNR DNI patient cardiology recommended to hold beta-blockers due bradycardia which I agree and also continue loop diuretics for fluid overload will continue 1 more day of IV Lasix and possible discharge tomorrow. I spoke to patient at length explaining that shortness of breath he is going to be a chronic condition and may not improve without the aortic valve replacement which patient has decided not to (2) Acute on chronic anemia: Code(s): D64.9 - Anemia, unspecified Status: Acute Assessment and Plan: Recent admission within EGD for GI bleed showing grade 1 varices nonerosive reflux as well as moderate diffuse gastritis Hemoglobin at discharge from that admission was 9.3, it was 7.9 at this admission GI consultation if continues to deteriorate will recheck hemoglobin patient poor candidate any type of surgery due to her aortic stenosis Fecal occult blood positive patient's current hemoglobin is 8.0 will repeat another CBC tomorrow before discharge (3) Bradycardia, sinus: Code(s): R00.1 - Bradycardia, unspecified Status: Acute Assessment and Plan: will have to hold beta-blockers if heart rate less than 60. Also holding any diuretic as patient's diastolic BP is 40 below (4) Bipolar disorder: Qualifiers: Active/Remission status: in full remission Most recent bipolar episode type: most recent episode unspecified type Qualified Code(s): F31.70 - Bipolar disorder, currently in remission, most recent episode unspecified Code(s): F31.9 - Bipolar disorder, unspecified Status: Acute Assessment and Plan: Continue home bipolar medications, stable (5) Anemia in chronic kidney disease (CKD): Code(s): N18.9 - Chronic kidney disease, unspecified; D63.1 - Anemia in chronic kidney disease Status: Acute Assessment and Plan: And gentle hydration. Avoid nephrotoxic drugs. Monitor antihypertensive drugs Avoid NSAIDs. Routine CMP monitor GFR. Monitor electrolytes potassium levels. (6) COPD (chronic obstructive pulmonary disease): Code(s): J44.9 - Chronic obstructive pulmonary disease, unspecified Status: Chronic Assessment and Plan: Patient advice to quit smoking. Bronchodilators. intensive Spirometry Routine exercises. Pneumoniae and flu vaccines as advised Evaluation for home O2 if saturations less than 88% on room air (7) Hypothyroidism: Qualifiers: Hypothyroidism type: acquired Qualified Code(s): E03.9 - Hypothyroidism, unspecified Code(s): E03.9 - Hypothyroidism, unspecified Status: Acute Assessment and Plan: Check TSH pending, continue home levothyroxine Concern for noncompliance due to long history of elevated TSH despite levothyroxine therapy (8) Insulin dependent diabetes mellitus: Status: Acute Assessment and Plan: HBA1c 6.5 ( goal <7.0%) , Renal functions, Liver panel every 3 months Monitor vitamin B12 levels Optimize LM-inhibitor and statin Routine glucose monitoring. Watch for Hypoglycemia. 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
[2022-11-10 11:56] LABS: Glucose Point of Care 275 mg/dl (65-105)
[2022-11-10] MEDS: FUROSEMIDE INJ 40 MG/4 ML VIAL IV PUSH (12:10)
[2022-11-10] MEDS: INSULIN ASPART (*BKC) 100 UNITS/ML SUB-Q ×2 (12:11→18:48)
[2022-11-10] MEDS: ROSUVASTATIN 10 MG TABLET 20 MG PO (20:04)
[2022-11-10] MEDS: MELATONIN 3 MG TABLET PO (20:04)
[2022-11-10] MEDS: traZODone HCL 50 MG TABLET 300 MG PO (20:05)
[2022-11-10] MEDS: INSULIN GLARGINE (*BKC) 100 UNITS/ML 12 UNITS SUB-Q (20:11)
[2022-11-10 20:16] LABS: Glucose Point of Care 277 mg/dl (65-105)
[2022-11-11] VITALS: PULSE 73
[2022-11-11 04:00] VITALS: PULSE 71
[2022-11-11 05:12] VITALS: BP 120/52; PULSE 69; RESP 20; TEMP 37; O2SAT 100
[2022-11-11] MEDS: LEVOTHYROXINE SODIUM 25 MCG TABLET PO (06:28)
[2022-11-11] MEDS: LEVOTHYROXINE SODIUM 112 MCG TABLET PO (06:28)
[2022-11-11 08:00] VITALS: BP 116/66; PULSE 54; PULSE 56; RESP 16; TEMP 37.2; O2SAT 96
[2022-11-11 08:15] LABS: Glucose Point of Care 165 mg/dl (65-105)
[2022-11-11] MEDS: lamoTRIgine 50 MG TABLET PO (08:23)
[2022-11-11] MEDS: LACTULOSE 20 GM/30 ML UDC PO (08:23)
[2022-11-11] MEDS: PANTOPRAZOLE 40 MG TABLET PO (08:23)
[2022-11-11] MEDS: GABAPENTIN 300 MG CAPSULE 600 MG PO (08:23)
[2022-11-11] MEDS: ESCITALOPRAM OXALATE 5 MG TABLET PO (08:23)
[2022-11-11] MEDS: amLODIPine BESYLATE 5 MG TABLET 10 MG PO (08:24)
[2022-11-11] MEDS: lamoTRIgine 100 MG TABLET PO (08:24)
[2022-11-11] MEDS: FUROSEMIDE INJ 40 MG/4 ML VIAL IV PUSH (08:24)
[2022-11-11 08:25] LABS: Hematocrit 25.1 % (37.0-47.0); Hemoglobin 7.6 g/dL (12.0-15.0); Mean Corpuscular HGB Conc 30.3 g/dl (32-36); Mean Corpuscular Hemoglobin 29.9 pg (26-34); Mean Corpuscular Volume 98.8 fl (80-100); Mean Platelet Volume 10.3 fl (7.4-10.4); Platelet Count Result 138 k/mm3 (150-375); Red Blood Count 2.54 M/mm3 (4.2-5.4); Red Cell Distribution Width 16.1 % (11.5-14.5); White Blood Count 3.2 K/mm3 (4.5-10.0)
[2022-11-11 08:38] LABS: Alanine Aminotransferase 33 U/L (6-35); Albumin Level 3.6 g/dL (3.5-5.1); Alkaline Phosphatase 434 U/L (38-126); Anion Gap 9 mmol/L (8-16); Aspartate Amino Transferase 59 U/L (14-36); Bilirubin,Total 0.5 mg/dL (0.2-1.3); Blood Urea Nitrogen 30 mg/dL (7-17); Calcium 8.5 mg/dL (8.4-10.2); Carbon Dioxide 26 mmol/L (22-30); Chloride 105 mmol/L (98-107); Estimated Glomerular Filt Rate 23; Glucose 153 mg/dL (65-110); Potassium 4.4 mmol/L (3.4-5.0); Sodium 140 mmol/L (137-145)
--- NOTE | 2022-11-11 09:10 | PM.DS ---
DS: Admitting Diagnosis Discharge Date 11/11/22 Admitting Diagnosis CHF DS: Discharge Diagnosis Discharge Diagnosis (1) Hypertension: Code(s): I10 - Essential (primary) hypertension Status: Acute (2) Hyperlipidemia: Code(s): E78.5 - Hyperlipidemia, unspecified Status: Acute (3) Bradycardia, sinus: Code(s): R00.1 - Bradycardia, unspecified Status: Acute (4) Acute exacerbation of CHF (congestive heart failure): Code(s): I50.9 - Heart failure, unspecified Status: Acute (5) Elevated troponin: Code(s): R77.8 - Other specified abnormalities of plasma proteins Status: Acute (6) Insulin dependent diabetes mellitus: Status: Acute (7) Shortness of breath: Code(s): R06.02 - Shortness of breath Status: Acute DS: Summary Hospital Course Hospital Course: patient is a 77-year-old female with history of congestive heart failure, COPD, hypertension, diabetes came to the hospital with shortness of breath for 2 days. Patient was noted to have heart rate of 40s and 50s was started on 2 L of nasal cannula. Patient x-ray showed signs of heart failure with pulmonary density shows and subcu edema. Patient was started on IV diuretics cardiology was consulted. Patient was noted to have aortic stenosis on 2D echo findings but not a candidate for any aortic valve replacement medical management only. Patient's beta-leonidas will hold due to low heart rate diagnostics were continued patient hemoglobin has been stable. Patient has history of chronic renal failure with multiple factors in play including diabetes use of diuretics heart failure. Patient's ejection fraction was 65%. Patient is cleared for discharge home today has been advised to use diuretics as recommended follow up with Cardiology as an outpatient avoid beta-blockers patient INR has been monitored closely advised patient daily weights routine vaccinations. Time spent discussing smoking cessation with patient: more than 10 minutes Status at Discharge Functional status at discharge: independent ambulation Time Spent with Patient Time attestation: Total time spent providing and/or coordinating discharge services: Time spent: Greater than 30 minutes Exam Const: General: comfortable and no acute distress Other: Elderly lady who appears to be comfortable eating her lunch HENMT: Mouth: Yes moist mucous membranes Eyes: General: appearance normal, both eyes and all related structures Sclera: sclerae normal Neck: Neck: supple and no JVD Other: Transmitted murmur to the carotids noted. Resp: Effort & Inspection: normal respiratory effort Other: Breath sounds somewhat dull at the bases no obvious rales or wheezing Cardio: Rate: regular rate Rhythm: regular rhythm Other: High-pitched grade 2-3/6 crescendo decrescendo murmur of aortic stenosis audible at the base. GI: Auscultation: normal bowel sounds Skin: General skin exam: normal color Neuro: Other: Alert and appropriate Extrem: Other: Warm, well perfused no significant edema DS: Data Data Completed and Pending Labs on day of discharge: Labs from last 24 hours 11/11/22 11/11/22 11/11/22 08:06 08:06 07:37 WBC 3.2 L RBC 2.54 L Hgb 7.6 L Hct 25.1 L MCV 98.8 MCH 29.9 MCHC 30.3 L RDW 16.1 H Plt Count 138 L MPV 10.3 Sodium 140 Potassium 4.4 Chloride 105 Carbon Dioxide 26 Anion Gap 9 BUN 30 H Creatinine 2.10 H Estim Creat Clear Calc Not Reportable Estimated GFR 23 L Glucose 153 H POC Capillary Glucose 165 H Calcium 8.5 Total Bilirubin 0.5 AST 59 H ALT 33 Alkaline Phosphatase 434 H Total Protein 7.0 Albumin 3.6 11/10/22 11/10/22 19:48 11:53 WBC RBC Hgb Hct MCV MCH MCHC RDW Plt Count MPV Sodium Potassium Chloride Carbon Dioxide Anion Gap BUN Creatinine Estim Creat Clear Calc
[2022-11-11] MEDS: UMECLIDINIUM/VILANTEROL 62.5-25 MCG ELLIPTA 1 PUFF INHALATION (09:58)
== END 2022-11-11 12:42 | DRG 291 ==
LOC: ANHED 10:47 → ANHIMU 15:31
PROVIDERS: Nurse Practitioner; Admitting Provider Family Medicine; Emergency Provider Emergency Medicine; PCP Internal Medicine; Visit Provider Internal Medicine
DX: I13.0 Hypertensive heart and chronic kidney disease with heart failure and stage 1 through stage 4 chronic kidney disease, or unspecified chronic kidney disease (principal); I50.33 Acute on chronic diastolic (congestive) heart failure; N18.4 Chronic kidney disease, stage 4 (severe); I85.00 Esophageal varices without bleeding; I35.0 Nonrheumatic aortic (valve) stenosis; D63.1 Anemia in chronic kidney disease; D69.6 Thrombocytopenia, unspecified; E78.5 Hyperlipidemia, unspecified; E11.22 Type 2 diabetes mellitus with diabetic chronic kidney disease; E03.9 Hypothyroidism, unspecified; E11.42 Type 2 diabetes mellitus with diabetic polyneuropathy; F41.9 Anxiety disorder, unspecified; F31.9 Bipolar disorder, unspecified; J44.9 Chronic obstructive pulmonary disease, unspecified; K76.82 Hepatic encephalopathy; K21.9 Gastro-esophageal reflux disease without esophagitis; K75.81 Nonalcoholic steatohepatitis (NASH); K74.60 Unspecified cirrhosis of liver; M81.0 Age-related osteoporosis without current pathological fracture; M19.90 Unspecified osteoarthritis, unspecified site; R00.1 Bradycardia, unspecified; R77.8 Other specified abnormalities of plasma proteins; Z20.822 Contact with and (suspected) exposure to COVID-19; Z79.4 Long term (current) use of insulin; Z86.73 Personal history of transient ischemic attack (TIA), and cerebral infarction without residual deficits; Z98.49 Cataract extraction status, unspecified eye; Z96.1 Presence of intraocular lens; Z90.49 Acquired absence of other specified parts of digestive tract; Z90.710 Acquired absence of both cervix and uterus; Z90.89 Acquired absence of other organs; Z66 Do not resuscitate
CPT/HCPCS: 36415; 36600; 71046; 80048; 80053; 82274; 82805; 82948; 83036; 83605; 83735; 83880; 84100; 84439; 84443; 84484; 85014; 85018; 85025; 85027; 86850; 86900; 86901; 86922; 87637; 93005; 93306; 93970; 94640; 96372; 99285; A9270; C9113; J1815; J1940; J2405; Q5106

== ENCOUNTER 2022-11-19 07:28 | Outpatient (RCR) | payer MEDICARE, MEDICAID, SELFPAY ==
[2022-11-19] VITALS (11 sets, daily range): BP systolic 119–145; BP diastolic 44–68; PULSE 61–74; RESP 12–24; TEMP 36.6–37.1; O2SAT 89–100
[2022-11-19] MEDS: SODIUM CHLORIDE 0.9% IV 250 ML 30 ML IV CONT (08:00)
--- NOTE | 2022-11-19 08:30 | PC.NURSE ---
Addendum entered by Mira Villarreal RN 11/19/22 10:11: 0830. called to speak with Minnie's office and spoke with Kayli. Ok to DC the order for tylenol and benedryl but keep on hand in case of reaction later. Original Note: Pt arrives to [facility], attempting to give her her pre-medication for her blood transfusion. Pt states does it matter that I have already taken tylenol this morning? Pt then states she took her tylenol and itching medicine. This rn called and spoke with Felisha at her assisted living and verified at 0640 pt took 500mg tylenol and hydroxizine.
--- NOTE | 2022-11-19 09:55 | PC.NURSE ---
Pt states she's a little more sob than normal, pulse ox continues to remain the same 89-91% on ra. O2 applied at 3pm/nc for pt comfort. Lungs CTA. Pt also states that she feels really tired. This rn informs pt that it could be due to the hydroxizine she took at the assisted living this morning and she might just need to take a nap. will continue to monitor.
[2022-11-19] MEDS: FUROSEMIDE INJ 40 MG/4 ML VIAL 20 MG IV PUSH (11:40)
--- NOTE | 2022-11-19 15:05 | PC.NURSE ---
Pt transported to sisters car via wheelchair for discharge at this time.
--- NOTE | 2022-11-19 15:50 | PC.NURSE ---
This rn did not send discharge instructions with patient faxed to pt's assisted living and fax was received.
== END 2023-02-17 23:59 | disposition home or self-care (01) ==
LOC: ANHCPCTRAN 07:28
PROVIDERS: PCP Internal Medicine; Visit Provider Internal Medicine Hematology & Oncology
DX: D64.9 Anemia, unspecified (principal)
CPT/HCPCS: 36415; 36430; 86850; 86900; 86901; 86902; 86922; 96374; J1940; J7050; P9016

== ENCOUNTER 2022-12-05 11:19 | Outpatient (CLI) | payer MEDICARE, MEDICAID, SELFPAY ==
--- NOTE | ~2022-12-05 | US_ITS ---
EXAMINATION: US venous doppler LE DATE: 12/05/2022 12:33 INDICATION: Right lower limb swelling. TECHNIQUE: Grayscale ultrasound images without and with compression and Doppler ultrasound images of the right lower extremity veins were obtained. COMPARISON: Ultrasound 11/06/2022 FINDINGS: The visualized portions of right common femoral vein, profunda (deep) femoral vein, femoral vein, pop liteal vein, peroneal veins, posterior tibial veins, and greater saphenous vein outflow are patent. IMPRESSION: 1. No deep venous thrombosis. Reviewed, dictated and finalized at location A. 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
== END 2022-12-05 11:20 | disposition home or self-care (01) ==
PROVIDERS: PCP Internal Medicine; Visit Provider Clinical Nurse Specialist
DX: M79.89 Other specified soft tissue disorders (principal)
CPT/HCPCS: 93971

== ENCOUNTER 2022-12-12 17:07 | Inpatient (IN) | payer MEDICARE, MEDICAID, SELFPAY ==
[2022-12-12] VITALS (14 sets, daily range): BP systolic 124–142; BP diastolic 38–54; PULSE 53–62; RESP 6–30; TEMP 36.4–36.5; O2SAT 93–100; BMI 33.3
--- NOTE | ~2022-12-12 | XR_ITS ---
XR chest 1V portable 12/15/2022 09:19 Indication: Pulmonary edema Procedure: AP portable chest Comparison: Comparison to multiple prior studies sequentially, with oldest reviewed study dated 11/2021. Findings: Borderline heart size. Mild interstitial edema. Small right pleural effusion. No pneumothor ax. No acute osseous abnormality. Impression: 1: Persistent mild interstitial edema. 2: Small right pleural effusion. Reviewed, dictated and finalized at location A. ER MACHINE Impression: 1: Persistent mild interstitial edema. 2: Small right pleural effusion.
--- NOTE | ~2022-12-12 | CT_ITS ---
EXAMINATION: CT brain wo con DATE: 12/12/2022 18:00 INDICATION: Right arm tremor TECHNIQUE: Computed tomography (CT) of the head was performed without intravenous contrast. The mA wa s adjusted according to patient size. Iterative reconstruction technique was employed. Exam dose: 60 5.33 mGy-cm total exam DLP. COMPARISON: 07/29/2022 CT brain FINDINGS: Bilateral vertebral artery and carotid siphon internal carotid artery calcifications. There is nonspecific diminished attenuation cerebral white matter, likely due to chronic small vessel isch emic changes. Chronic left basal ganglia and periventricular lacunar infarcts. No intracranial mass lesion or hemorrhage or recent cerebrovascular accident, midline shift or mass e ffect is detected. Moderate cerebral and cerebellar volume loss. No subdural or epidural hematoma. The mastoid air cells and included paranasal sinuses are normally developed and aerated. No fracture or bone destruction of the cranial vault. IMPRESSION: Cerebral atherosclerosis and chronic small vessel ischemic changes of the cerebral white matter Chronic left basal ganglia and periventricular lacunar infarcts Reviewed, dictated and finalized at Location A. Reviewed, dictated and finalized at location A. ATTENDANTS
--- NOTE | ~2022-12-12 | XR_ITS ---
XR chest 1V portable DATE: 12/13/2022 05:58 INDICATION: Shortness of breath, wheezing and shaking. Congestive heart failure and pulmonary edema TECHNIQUE: Portable AP chest on 12/13/2022 at 0531 hours COMPARISON: AP chest FINDINGS: There is diminished pulmonary vascular congestion and redistribution compared to 12/12/2022. Diffuse interstitial prominence and mild prominence of the minor fissure suggest residual pulmonary i nterstitial and subpleural edema. Aortic arch calcification. No pneumothorax. 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
--- NOTE | ~2022-12-12 | XR_ITS ---
XR chest 2V DATE: 12/12/2022 17:54 INDICATION: Shortness of breath, wheezing and shaking. History of congestive heart TECHNIQUE: AP and lateral views COMPARISON: None FINDINGS: There is cardiomegaly. There is pulmonary vascular congestion and redistribution. There are bilateral pulmonary infiltrates which predominate centrally and in the lower lung zones, suggesting pulmonary edema. Small pleural effusions. No pneumothorax. IMPRESSION: Congestive heart failure and pulmonary edema, prominently increased since 11/06/2022 Reviewed, dictated and finalized at location A. GRATION PARALEGAL
--- NOTE | ~2022-12-12 | XR_ITS ---
EXAMINATION: XR abdomen/kub 1V DATE: 12/13/2022 13:40 INDICATION: Abdominal pain and distention TECHNIQUE: A supine view of the abdomen was obtained. COMPARISON: CT dated 10/14/2022 FINDINGS: Moderate amount of gas is seen scattered throughout multiple nondilated loops of large and small estefany l. Cholecystectomy clips in right upper quadrant. Severe lower lumbar spondylosis. IMPRESSION: 1. No dilated bowel to suggest obstruction. 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
--- NOTE | 2022-12-12 17:11 | ECG_ITS ---
Measurements Intervals [place] Rate: 59 P: 147 RI: 152 QRS: -68 QRSD: 169 T: 14 QT: 504 QTc: 501 Interpretive Statements SINUS BRADYCARDIA LEFT AXIS DEVIATION RIGHT BUNDLE BRANCH BLOCK LEFT ANTERIOR FASCICULAR BLOCK BASELINE ARTIFACT- II, III, AVF, V3, V6 ABNORMAL ECG COMPARED TO ECG 11/06/2022 09:42:10 NO SIGNIFICANT CHANGES Electronically Signed On 12-14-2022 13:56:54 RN FAMILY by George Moyer D.O.
--- NOTE | 2022-12-12 17:19 | PC.NURSE ---
when patient lifts up left arm, involuntary movements occur and audible wheezing noted.
[2022-12-12 17:30] LABS: Basophils Absolute Auto 0.1 K/mm3 (0.0-0.1); Basophils Percent Auto 1.1 % (0.2-1.2); Eosinophils Absolute Auto 0.3 K/mm3 (0-0.3); Eosinophils Percent Auto 5.9 % (0-4.4); Hematocrit 22.6 % (37.0-47.0); Immature Granulocyte Absolute 0.06 K/mm3 (0.00-0.031); Immature Granulocyte Percent A 1.1 % (0-0.5); Lymphocytes Absolute Auto 1.25 K/mm3 (0.9-3.2); Lymphocytes Percent Auto 22.9 % (18.3-44.2); Mean Corpuscular Hemoglobin 29.8 pg (26-34); Mean Corpuscular Volume 96.2 fl (80-100); Mean Platelet Volume 9.9 fl (7.4-10.4); Monocytes Absolute Auto 0.3 K/mm3 (0.1-0.6); Neutrophils Absolute Auto 3.5 K/mm3 (1.3-6.7); Platelet Count Result 187 k/mm3 (150-375); Red Blood Count 2.35 M/mm3 (4.2-5.4); Red Cell Distribution Width 16.5 % (11.5-14.5); White Blood Count 5.5 K/mm3 (4.5-10.0)
--- NOTE | 2022-12-12 17:48 | ED.SOB ---
HPI - SOB/Dyspnea General Chief Complaint: Shortness of Breath/Dyspnea Stated Complaint: SOB/ BODY SHAKING History of Present Illness HPI Narrative: This is a 77-year-old female with past medical history of CHF, bipolar disorder and hypertension, who presents to the emergency department complaining of right arm tremors and difficulty breathing. EMS reports at approximately 11:00 today the patient started having shaking in the arm with associated wheezing. They note her O2 sats were in the high 80s to low 90s on room air. The patient was placed on 2 L of O2 with improvement to the mid 90s. EMS also reports there are concerns from family members and that the patient appears more confused than usual. Vital signs otherwise unremarkable in route. [place] stroke score negative. The patient states the tremors in the arms began prior to her difficulty breathing. She denies pain in the chest, lightheadedness, recent illness for abdominal pain. Related Data Home Medications Medication Instructions Recorded Confirmed asenapine maleate 5 mg sublingual 5 mg sublingual Q12H 01/04/20 12/05/22 tablet (Saphris) escitalopram oxalate 5 mg tablet 5 mg PO DAILY 08/21/21 12/05/22 rosuvastatin 20 mg tablet 20 mg PO QHS 08/21/21 12/05/22 trazodone 100 mg tablet 300 mg PO HS 08/21/21 12/05/22 glucagon HCl 1 mg solution for 1 mg subcut Q20M PRN Hypoglycemia 02/13/22 12/05/22 injection (Glucagon (HCl) Emergency Kit) sodium chloride 0.65 % nasal spray 1 spray intranasal BID PRN Dry 02/13/22 12/05/22 aerosol (Saline Mist) Nasal Passages insulin glargine 100 unit/mL (3 9 unit subcut QHS 05/17/22 12/05/22 mL) subcutaneous pen (Lantus Solostar U-100 Insulin) furosemide 40 mg tablet 40 mg PO DAILY 07/18/22 12/05/22 gabapentin 600 mg tablet 600 mg PO TID 07/18/22 12/05/22 hydroxyzine HCl 25 mg tablet 25 mg PO TID PRN Itching 08/25/22 12/05/22 acetaminophen 500 mg tablet 1,000 mg PO BID PRN Pain 09/14/22 12/05/22 Allergies Allergy/AdvReac Type Severity Reaction Status Date / Time No Known Allergies Allergy Verified 12/05/22 10:28 Review of Systems Review of Systems: CONSTITUTIONAL: Denies fever, chills, or sweats. EYES: Denies visual changes, redness, or discharge. ENT: Denies rhinorrhea, congestion, sore throat, or otalgia. CARDIOVASCULAR: Denies chest pain, palpitations, or edema. RESPIRATORY: Dyspnea denies cough GASTROINTESTINAL: Denies abdominal pain, nausea, vomiting, or diarrhea. GENITOURINARY: Denies dysuria or hematuria. SKIN: Denies rash or itching. MUSCULOSKELETAL: Denies back pain, joint pain, or myalgia. NEUROLOGIC: Right arm tremor denies headache, numbness, dizziness, or weakness. PSYCHIATRIC: Denies anxiety or depression. [facility] Past Medical History Medical History Acute on chronic anemia Acute on chronic diastolic (congestive) heart failure Acute on chronic diastolic CHF (congestive heart failure) Acute renal failure superimposed on stage 3 chronic kidney disease Acute UTI Anemia Anemia Anemia Anxiety Aortic stenosis Moderate on echocardiogram in November 2021. Arthritis Asthma Bipolar disorder Cerebrovascular accident CHF (congestive heart failure) CHF (congestive heart failure) Chronic diastolic congestive heart failure (12/2019) Chronic kidney disease, stage 4 (severe) Chronic obstructive pulmonary disease PFTs 06/28/2021: Moderate obstructive abnormality, moderate decreased diffusion capacity. COPD exacerbation Depression Diabetic peripheral neuropathy Diastolic dysfunction Echocardiogram 05/2021: EF 65-70%, grade 1 diastolic dysfunction, E/E elevated, global longitudinal strain mildly abnormal, moderate left atrial enlargement, moderate aortic valve sclerosis, mild aortic valve stenosis with peak velocity 239, mean gradient 14, aortic valve area 1.7 to, mild aortic valve regurgitation, Elevated troponin Esophageal varices Gastroesophageal reflux disease
[2022-12-12 17:50] LABS: Alanine Aminotransferase 22 U/L (6-35); Albumin Level 4.2 g/dL (3.5-5.1); Alkaline Phosphatase 348 U/L (38-126); Anion Gap 9 mmol/L (8-16); Aspartate Amino Transferase 46 U/L (14-36); Bilirubin,Total 0.4 mg/dL (0.2-1.3); Blood Urea Nitrogen 33 mg/dL (7-17); Calcium 8.6 mg/dL (8.4-10.2); Carbon Dioxide 22 mmol/L (22-30); Chloride 106 mmol/L (98-107); Estimated Glomerular Filt Rate 23; Glucose 109 mg/dL (65-110); Potassium 4.4 mmol/L (3.4-5.0); Sodium 137 mmol/L (137-145)
[2022-12-12 18:07] LABS: Platelet Estimate Adequate (Adequate); Schistocytes None Seen (NORMAL)
[2022-12-12 18:08] LABS: Anisocytosis 2+ (NORMAL)
[2022-12-12 18:09] LABS: Hypochromasia 1+ (NORMAL)
[2022-12-12 18:36] LABS: Ammonia 20 umol/L (9-30)
[2022-12-12 18:42] LABS: NT Pro B Type Natriuretic Pept 985 pg/mL (19.9-100)
[2022-12-12] MEDS: FUROSEMIDE INJ 40 MG/4 ML VIAL IV PUSH (18:45)
[2022-12-12 18:51] LABS: Troponin I 0.018 ng/mL (0.000-0.034)
--- NOTE | 2022-12-12 19:48 | PM.IMHP ---
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 Patient was released from [facility] in October and she was treated for acute on chronic heart failure and bradycardia was released home. Patient presents to the emergency room with right arm twitching, shortness of breath, via EMS. Upon EMS arrival patient was found to have a low oxygen saturation she was immediately placed on supplemental oxygen with improvement of her oxygen saturation on pulse oximetry. Patient denies any fevers, rigors, chills, nausea, vomiting, pain or burning with urination, chest pain, palpitations. In emergency room preliminary workup was significant for a head CT was reported as: FINDINGS: Bilateral vertebral artery and carotid siphon internal carotid artery calcifications. There is nonspecific diminished attenuation cerebral white matter, likely due to chronic small vessel ischemic changes. Chronic left basal ganglia and periventricular lacunar infarcts. No intracranial mass lesion or hemorrhage or recent cerebrovascular accident, midline shift or mass effect is detected. Moderate cerebral and cerebellar volume loss. No subdural or epidural hematoma. The mastoid air cells and included paranasal sinuses are normally developed and aerated. No fracture or bone destruction of the cranial vault. IMPRESSION:? Cerebral atherosclerosis and chronic small vessel ischemic changes of the cerebral white matter Chronic left basal ganglia and periventricular lacunar infarcts A chest x-ray was reported as: FINDINGS: There is cardiomegaly. There is pulmonary vascular congestion and redistribution. There are bilateral pulmonary infiltrates which predominate centrally and in the lower lung zones, suggesting pulmonary edema. Small pleural effusions. No pneumothorax.? IMPRESSION: Congestive heart failure and pulmonary edema, prominently increased since 11/06/2022 Review of Systems Review of Systems: Right arm twitching, shortness of breath. Constitutional: Constitutional: Denies chills, Denies fatigue, Denies fever(s), Denies malaise, Denies night sweats and Reports weakness Eyes: Eyes: Denies change in vision ENT: Denies dysphagia, Denies vertigo, Denies dizziness and Denies odynophagia Cardiovascular: Cardiovascular: Denies chest pain, Reports leg edema, Denies palpitations and Reports dyspnea Gastrointestinal: Gastrointestinal: Denies abdominal pain, Denies dyspepsia, Denies heartburn, Denies nausea and Denies vomiting Genitourinary: Genitourinary: Denies dysuria Musculoskeletal: Musculoskeletal: Denies joint swelling and Denies muscle weakness Integumentary/Breasts: Skin/Breast: Denies rash Neurologic: Denies focal weakness, Denies Sensory deficit (Neuro) and Reports other (Right and tremors) Endocrine: Endocrine: Denies cold intolerance, Denies flushing, Denies heat intolerance, Denies polyphagia, Denies polydipsia and Denies palpitations Hematologic/Lymphatic: Hematologic/Lymphatic: Reports no additional hematologic/lymphatic complaints and Reports as per HPI Allergic/Immunologic: Allergic/Immunologic: Reports no additional allergic/immunologic complaints and Reports as per HPI PMFSH Past Medical History Medical History Acute on chronic anemia Acute on chronic diastolic (congestive) heart failure Acute on chronic diastolic CHF (congestive heart failure) Acute renal failure superimposed on stage 3 chronic kidney disease Acute UTI Anemia Anemia Anemia Anxiety Aortic stenosis Moderate on echocardiogram in November 2021. Arth
[2022-12-12 19:52] LABS: Influenza A QL RT-PCR Negative (Negative); Influenza B QL RT-PCR Negative (Negative); SARS-CoV-2 RNA PCR Negative
[2022-12-12 20:35] LABS: Appearance Urine Clear (Clear); Bilirubin Urine Negative (Negative); Blood Urine Negative (Negative); Color Urine Yellow (Yellow); Glucose Urine UA Negative (Negative); Ketones Urine Negative (Negative); Leukocyte Esterase Ur Negative LEU/UL (Negative); Nitrate Urine Negative (Negative); Protein Urine 1+ mg/dL (Negative); Urobilinogen Urine 0.2 mg/dL (<2.0); pH Urine 5.5 (5.0-9.0)
[2022-12-12 20:41] LABS: Bacteria Urine Trace /hpf; Mucus Urine Rare /lpf; RBC Urine 0-2 /hpf (0-2); WBC Urine 0-3 /hpf
[2022-12-12 20:43] LABS: Add Urine Microscopic? YES
[2022-12-12 23:27] LABS: Troponin I 0.017 ng/mL (0.000-0.034)
[2022-12-12] MEDS: MELATONIN 3 MG TABLET PO (23:58)
[2022-12-12] MEDS: hydrOXYzine HCL 25 MG TABLET PO (23:58)
[2022-12-13] VITALS (14 sets, daily range): BP systolic 125–145; BP diastolic 38–48; PULSE 45–64; RESP 16–22; TEMP 36.2–36.7; O2SAT 93–97
[2022-12-13 00:01] LABS: Glucose Point of Care 168 mg/dl (65-105)
[2022-12-13] MEDS: SALINE 0.65% NAS SOLN 44 ML BTL 1 SPRAY NASAL (00:18)
[2022-12-13] MEDS: traZODone HCL 50 MG TABLET 300 MG PO ×2 (00:18→21:14)
[2022-12-13] MEDS: lamoTRIgine 50 MG TABLET PO ×3 (00:19→21:12)
[2022-12-13] MEDS: lamoTRIgine 100 MG TABLET PO ×3 (00:19→21:05)
[2022-12-13] MEDS: ROSUVASTATIN 10 MG TABLET 20 MG PO ×2 (00:19→21:13)
[2022-12-13] MEDS: INSULIN GLARGINE (*BKC) 100 UNITS/ML 9 UNITS SUB-Q ×2 (00:27→21:10)
[2022-12-13 02:38] LABS: Troponin I 0.017 ng/mL (0.000-0.034)
--- NOTE | 2022-12-13 03:15 | PC.NURSE ---
Pt admitted from ER via cart to 253 at 2145. Pt resides at [facility]. Admitted with c/o shakiness- tremors, SOB. Pt received to unit A/Ox3 calm, cooperative. Wheezing audible. 2L NC Tele- SB 1st degree AVB with prolonged QT Blood glucose taken WNL Given meds as ordered. Tolerated snacks given. Called [facility] for medication information . Pt has stocked med box in room with supervision of nursing director who unlocks box so pt can take meds per self. Pt takes PRN meds on own. Per facility, pt frequently uses atarax for skin itchiness. . Bed alarm on. Assisted to BSC x1 assist several times to void. Episode of pt raised right arm in air, shook violently, while pt made noises. This nurse held hand/ arm softly, calmed pt with soft sounds and pt immediately stopped shaking and making audible sounds. Hgb noted at 7.0 History of anemia with previous transfusions. Pt previous admission to [facility] 11/06/22 - 11/11/22 and was DNR/DNI Pt presently full code Given admission/ safety instructions. Pt verbalized understanding. Hourly rounding. Bed alarm on with call light explained and in reach.
[2022-12-13] MEDS: LEVOTHYROXINE SODIUM 25 MCG TABLET PO (05:51)
[2022-12-13] MEDS: LEVOTHYROXINE SODIUM 112 MCG TABLET PO (05:51)
[2022-12-13] MEDS: ACETAMINOPHEN 500 MG TABLET 1000 MG PO (05:52)
[2022-12-13] MEDS: hydrOXYzine HCL 25 MG TABLET PO ×3 (05:52→18:51)
[2022-12-13 06:19] LABS: Alanine Aminotransferase 21 U/L (6-35); Albumin Level 3.9 g/dL (3.5-5.1); Alkaline Phosphatase 337 U/L (38-126); Anion Gap 9 mmol/L (8-16); Aspartate Amino Transferase 41 U/L (14-36); Bilirubin,Total 0.4 mg/dL (0.2-1.3); Blood Urea Nitrogen 35 mg/dL (7-17); Calcium 8.4 mg/dL (8.4-10.2); Carbon Dioxide 23 mmol/L (22-30); Chloride 106 mmol/L (98-107); Estimated Glomerular Filt Rate 21; Glucose 77 mg/dL (65-110); Potassium 4.1 mmol/L (3.4-5.0); Sodium 138 mmol/L (137-145)
[2022-12-13 08:27] LABS: Glucose Point of Care 79 mg/dl (65-105)
[2022-12-13] MEDS: FUROSEMIDE INJ 40 MG/4 ML VIAL IV PUSH ×2 (08:57→16:12)
[2022-12-13] MEDS: amLODIPine BESYLATE 5 MG TABLET 10 MG PO (08:57)
[2022-12-13] MEDS: ESCITALOPRAM OXALATE 5 MG TABLET PO (08:57)
[2022-12-13] MEDS: LACTULOSE 20 GM/30 ML UDC PO (08:57)
[2022-12-13] MEDS: GABAPENTIN 300 MG CAPSULE 600 MG PO ×3 (08:57→16:12)
[2022-12-13] MEDS: TRIAMCINOLONE ACET 0.1% CREAM 15 GM TUBE 1 APPLIC TOPICAL (09:09)
--- NOTE | 2022-12-13 10:15 | PM.IMPN ---
Progress Note: A&P Assessment and Plan (1) Acute exacerbation of CHF (congestive heart failure): Code(s): I50.9 - Heart failure, unspecified Status: Acute Assessment and Plan: BNP elevated at 985 Chest xray show worsening pulmonary edema from 11/06/22 Chest xray from 12/13/22 showed improvments from 12/12/22 Echo from 11/07/22 showed hyperdynamic systolic function, and grade 2 disatolic dysfunction Acute on chronic diastolic heart failure in exacerbation CHF education Continue IV lasix BID Trend weights Strict I&O Fluid restriction (2) Dyspnea: Code(s): R06.00 - Dyspnea, unspecified Status: Acute Assessment and Plan: Found with low saturations prior to arrival Supplemental oxygen, wean to maintain saturation >90% Chest xray shows pulmonary edema Trend respiratory status negative for RSV, influenza type A influenza type B and COVID-19 (3) Tremor: Code(s): R25.1 - Tremor, unspecified Status: Acute Assessment and Plan: CT of the head with no acute abnormalities History of tremors Consider MRI if worsens Seems to be related to anxiety (4) Chronic kidney disease, stage 4 (severe): Code(s): N18.4 - Chronic kidney disease, stage 4 (severe) Status: Acute Assessment and Plan: BUN/Cr currently at 35/2.30 Baseline 1.9-2.4 Avoid nephrotoxic medications Continue to trend labs Probably related to diabetes and HTN (5) Type 2 diabetes mellitus: Code(s): E11.9 - Type 2 diabetes mellitus without complications Status: Chronic Assessment and Plan: Current glucose 77 A1c from 11/06/22 was 6.3 Stable Continue lantus 9 units at night Accu-Cheks AC and HS Hypoglycemia protocol ISS trend labs Adjust therapy as indicated (6) 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: Code(s): K75.81 - Nonalcoholic steatohepatitis (ZIEGLER); K74.60 - Unspecified cirrhosis of liver Status: Chronic Assessment and Plan: Unchanged LFTs stable (7) Chronic obstructive pulmonary disease: Code(s): J44.9 - Chronic obstructive pulmonary disease, unspecified Status: Acute Assessment and Plan: Breathing treatments as needed Continue home Anoro Ellipta Supplemental oxygen, wean to maintain saturation >90% not in acute exacerbation (8) Aortic stenosis: Qualifiers: Cardiac valve disease etiology: nonrheumatic Qualified Code(s): I35.0 - Nonrheumatic aortic (valve) stenosis Code(s): I35.0 - Nonrheumatic aortic (valve) stenosis Status: Chronic Assessment and Plan: Continue to monitor (9) Hypertension: Code(s): I10 - Essential (primary) hypertension Status: Acute Assessment and Plan: BP is 129/44 Continue home medications Trend BP Adjust therapy as indicated (10) Hyperlipidemia: Code(s): E78.5 - Hyperlipidemia, unspecified Status: Acute Assessment and Plan: Continue home rosuvastatin (11) Hypothyroidism: Qualifiers: Hypothyroidism type: acquired Qualified Code(s): E03.9 - Hypothyroidism, unspecified Code(s): E03.9 - Hypothyroidism, unspecified Status: Acute Assessment and Plan: TSH from 11/07/22 13.600, T4 0.74, T3 0.84 Repeat TSH in the am Continue home levothyroxine at 137mcg Consider increasing after recheck in the am (12) Bipolar disorder: Qualifiers: Active/Remission status: in full remission Most recent bipolar episode type: most recent episode unspecified type Qualified Code(s): F31.70 - Bipolar disorder, currently in remission, most recent episode unspecified Code(s): F31.9 - Bipolar disorder, unspecified Status: Acute Assessment and Plan: Chronic and stable C
--- NOTE | 2022-12-13 10:15 | P.PNIM_ITS ---
Progress Note: A&P Assessment and Plan (1) Acute exacerbation of CHF (congestive heart failure): Code(s): I50.9 - Heart failure, unspecified Status: Acute Assessment and Plan: * BNP elevated at 985 * Chest xray show worsening pulmonary edema from 11/06/22 * Chest xray from 12/13/22 showed improvments from 12/12/22 * Echo from 11/07/22 showed hyperdynamic systolic function, and grade 2 disatolic dysfunction * Acute on chronic diastolic heart failure in exacerbation * CHF education * Continue IV lasix BID * Trend weights * Strict I&O * Fluid restriction (2) Dyspnea: Code(s): R06.00 - Dyspnea, unspecified Status: Acute Assessment and Plan: * Found with low saturations prior to arrival * Supplemental oxygen, wean to maintain saturation >90% * Chest xray shows pulmonary edema * Trend respiratory status * negative for RSV, influenza type A influenza type B and COVID-19 (3) Tremor: Code(s): R25.1 - Tremor, unspecified Status: Acute Assessment and Plan: * CT of the head with no acute abnormalities * History of tremors * Consider MRI if worsens * Seems to be related to anxiety (4) Chronic kidney disease, stage 4 (severe): Code(s): N18.4 - Chronic kidney disease, stage 4 (severe) Status: Acute Assessment and Plan: * BUN/Cr currently at 35/2.30 * Baseline 1.9-2.4 * Avoid nephrotoxic medications * Continue to trend labs * Probably related to diabetes and HTN (5) Type 2 diabetes mellitus: Code(s): E11.9 - Type 2 diabetes mellitus without complications Status: Chronic Assessment and Plan: * Current glucose 77 * A1c from 11/06/22 was 6.3 * Stable * Continue lantus 9 units at night * Accu-Cheks AC and HS * Hypoglycemia protocol * ISS * trend labs * Adjust therapy as indicated (6) 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: Code(s): K75.81 - Nonalcoholic steatohepatitis (ZIEGLER); K74.60 - Unspecified cirrhosis of liver Status: Chronic Assessment and Plan: * Unchanged * LFTs stable (7) Chronic obstructive pulmonary disease: Code(s): J44.9 - Chronic obstructive pulmonary disease, unspecified Status: Acute Assessment and Plan: * Breathing treatments as needed * Continue home Anoro Ellipta * Supplemental oxygen, wean to maintain saturation >90% * not in acute exacerbation (8) Aortic stenosis: Qualifiers: Cardiac valve disease etiology: nonrheumatic Qualified Code(s): I35.0 - Nonrheumatic aortic (valve) stenosis Code(s): I35.0 - Nonrheumatic aortic (valve) stenosis Status: Chronic Assessment and Plan: * Continue to monitor (9) Hypertension: Code(s): I10 - Essential (primary) hypertension Status: Acute Assessment and Plan: * BP is 129/44 * Continue home medications * Trend BP * Adjust therapy as indicated (10) Hyperlipidemia: Code(s): E78.5 - Hyperlipidemia, unspecified Status: Acute Assessment and Plan: * Continue home rosuvastatin (11) Hypothyroidism:
[2022-12-13 11:59] LABS: Glucose Point of Care 100 mg/dl (65-105)
[2022-12-13 16:47] LABS: Glucose Point of Care 95 mg/dl (65-105)
[2022-12-13] MEDS: MELATONIN 3 MG TABLET PO (21:13)
[2022-12-14] VITALS (18 sets, daily range): BP systolic 114–142; BP diastolic 40–63; PULSE 45–60; RESP 18–24; TEMP 36.2–36.7; O2SAT 92–97
[2022-12-14 00:02] LABS: Glucose Point of Care 162 mg/dl (65-105)
[2022-12-14 05:36] LABS: Basophils Percent Auto 1.1 % (0.2-1.2); Eosinophils Absolute Auto 0.3 K/mm3 (0-0.3); Eosinophils Percent Auto 7.7 % (0-4.4); Immature Granulocyte Absolute 0.02 K/mm3 (0.00-0.031); Immature Granulocyte Percent A 0.5 % (0-0.5); Lymphocytes Absolute Auto 0.83 K/mm3 (0.9-3.2); Lymphocytes Percent Auto 22.1 % (18.3-44.2); Mean Corpuscular HGB Conc 30.2 g/dl (32-36); Mean Corpuscular Volume 96.1 fl (80-100); Mean Platelet Volume 9.9 fl (7.4-10.4); Monocytes Absolute Auto 0.2 K/mm3 (0.1-0.6); Monocytes Percent Auto 5.9 % (2.6-8.5); Neutrophils Absolute Auto 2.4 K/mm3 (1.3-6.7); Neutrophils Percent Auto 62.7 % (45.5-73.1); Platelet Count Result 148 k/mm3 (150-375); Red Blood Count 2.07 M/mm3 (4.2-5.4); Red Cell Distribution Width 16.3 % (11.5-14.5); White Blood Count 3.8 K/mm3 (4.5-10.0)
[2022-12-14 05:40] LABS: Hematocrit 19.9 % (37.0-47.0)
--- NOTE | 2022-12-14 05:48 | PC.NURSE ---
Called critical H & H lab result to Dr. Norris. No new orders at this time.
[2022-12-14 05:53] LABS: Alanine Aminotransferase 19 U/L (6-35); Albumin Level 3.5 g/dL (3.5-5.1); Alkaline Phosphatase 307 U/L (38-126); Anion Gap 7 mmol/L (8-16); Aspartate Amino Transferase 42 U/L (14-36); Bilirubin,Total 0.3 mg/dL (0.2-1.3); Blood Urea Nitrogen 41 mg/dL (7-17); Calcium 7.9 mg/dL (8.4-10.2); Carbon Dioxide 24 mmol/L (22-30); Chloride 105 mmol/L (98-107); Estimated Glomerular Filt Rate 19; Glucose 71 mg/dL (65-110); Magnesium 2.2 mg/dL (1.6-2.3); Potassium 4.1 mmol/L (3.4-5.0); Sodium 136 mmol/L (137-145)
[2022-12-14] MEDS: LEVOTHYROXINE SODIUM 112 MCG TABLET PO (06:11)
[2022-12-14] MEDS: LEVOTHYROXINE SODIUM 25 MCG TABLET PO (06:11)
--- NOTE | 2022-12-14 07:30 | P.PNIM_ITS ---
Progress Note: A&P Assessment and Plan (1) Acute on chronic anemia: Code(s): D64.9 - Anemia, unspecified Status: Acute Assessment and Plan: * H/H low at 6.0/19.9 * Seems to have multiple episodes of low hemoglobin * Transfuse one unit of PRBC 12/14/22 * Continue to trend H/H * Stop Lovenox at this time * IV iron could help * Anemia labs from 12/02/22 iron 47, TIBC 403, % sat 12, Ferritin 52.30, B12 497, Folate 5.6 * anemia of chronic disease most likely from CKD * Does follow with hematology outpatient, last dose of epoetin saray given on 12/02/22, next dose scheduled for 12/16/22 (2) Acute exacerbation of CHF (congestive heart failure): Code(s): I50.9 - Heart failure, unspecified Status: Acute Assessment and Plan: * BNP elevated at 985, repeat ordered * Chest xray show worsening pulmonary edema from 11/06/22 * Chest xray from 12/13/22 showed improvements from 12/12/22 * Repeat chest xray in the am * Echo from 11/07/22 showed hyperdynamic systolic function, and grade 2 disatolic dysfunction * Acute on chronic diastolic heart failure in exacerbation * CHF education * Change IV lasix back to home 40mg PO daily due to worsening renal failure * Trend weights * Strict I&O * Fluid restriction (3) Dyspnea: Code(s): R06.00 - Dyspnea, unspecified Status: Acute Assessment and Plan: * Found with low saturations prior to arrival * Supplemental oxygen, wean to maintain saturation >90% * Chest xray shows pulmonary edema * H/H low 12/14/22 at 6.0/19.9, one unit of PRBC ordered * Trend respiratory status * negative for RSV, influenza type A influenza type B and COVID-19 (4) Tremor: Code(s): R25.1 - Tremor, unspecified Status: Acute Assessment and Plan: * CT of the head with no acute abnormalities * History of tremors, seems to be back to baseline * Consider MRI if worsens * Seems to be related to anxiety (5) Chronic kidney disease, stage 4 (severe): Code(s): N18.4 - Chronic kidney disease, stage 4 (severe) Status: Acute Assessment and Plan: * BUN/Cr currently at 41/2.5, elevation could be related to over diuresis * Recheck BNP * Baseline 1.9-2.4 * Avoid nephrotoxic medications * Continue to trend labs * Changed IV lasix to PO lasix * Probably related to diabetes and HTN (6) Type 2 diabetes mellitus: Code(s): E11.9 - Type 2 diabetes mellitus without complications Status: Chronic Assessment and Plan: * Current glucose 71 * A1c from 11/06/22 was 6.3 * Stable * Continue lantus 9 units at night * Accu-Cheks AC and HS * Hypoglycemia protocol * ISS * trend labs * Adjust therapy as indicated (7) 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
--- NOTE | 2022-12-14 07:30 | PM.IMPN ---
Progress Note: A&P Assessment and Plan (1) Acute on chronic anemia: Code(s): D64.9 - Anemia, unspecified Status: Acute Assessment and Plan: H/H low at 6.0/19.9 Seems to have multiple episodes of low hemoglobin Transfuse one unit of PRBC 12/14/22 Continue to trend H/H Stop Lovenox at this time IV iron could help Anemia labs from 12/02/22 iron 47, TIBC 403, % sat 12, Ferritin 52.30, B12 497, Folate 5.6 anemia of chronic disease most likely from CKD Does follow with hematology outpatient, last dose of epoetin saray given on 12/02/22, next dose scheduled for 12/16/22 (2) Acute exacerbation of CHF (congestive heart failure): Code(s): I50.9 - Heart failure, unspecified Status: Acute Assessment and Plan: BNP elevated at 985, repeat ordered Chest xray show worsening pulmonary edema from 11/06/22 Chest xray from 12/13/22 showed improvements from 12/12/22 Repeat chest xray in the am Echo from 11/07/22 showed hyperdynamic systolic function, and grade 2 disatolic dysfunction Acute on chronic diastolic heart failure in exacerbation CHF education Change IV lasix back to home 40mg PO daily due to worsening renal failure Trend weights Strict I&O Fluid restriction (3) Dyspnea: Code(s): R06.00 - Dyspnea, unspecified Status: Acute Assessment and Plan: Found with low saturations prior to arrival Supplemental oxygen, wean to maintain saturation >90% Chest xray shows pulmonary edema H/H low 12/14/22 at 6.0/19.9, one unit of PRBC ordered Trend respiratory status negative for RSV, influenza type A influenza type B and COVID-19 (4) Tremor: Code(s): R25.1 - Tremor, unspecified Status: Acute Assessment and Plan: CT of the head with no acute abnormalities History of tremors, seems to be back to baseline Consider MRI if worsens Seems to be related to anxiety (5) Chronic kidney disease, stage 4 (severe): Code(s): N18.4 - Chronic kidney disease, stage 4 (severe) Status: Acute Assessment and Plan: BUN/Cr currently at 41/2.5, elevation could be related to over diuresis Recheck BNP Baseline 1.9-2.4 Avoid nephrotoxic medications Continue to trend labs Changed IV lasix to PO lasix Probably related to diabetes and HTN (6) Type 2 diabetes mellitus: Code(s): E11.9 - Type 2 diabetes mellitus without complications Status: Chronic Assessment and Plan: Current glucose 71 A1c from 11/06/22 was 6.3 Stable Continue lantus 9 units at night Accu-Cheks AC and HS Hypoglycemia protocol ISS trend labs Adjust therapy as indicated (7) 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: Code(s): K75.81 - Nonalcoholic steatohepatitis (ZIEGLER); K74.60 - Unspecified cirrhosis of liver Status: Chronic Assessment and Plan: Unchanged LFTs stable (8) Chronic obstructive pulmonary disease: Code(s): J44.9 - Chronic obstructive pulmonary disease, unspecified Status: Acute Assessment and Plan: Breathing treatments as needed Continue home Anoro Ellipta Supplemental oxygen, wean to maintain saturation >90% not in acute exacerbation (9) Aortic stenosis: Qualifiers: Cardiac valve disease etiology: nonrheumatic Qualified Code(s): I35.0 - Nonrheumatic aortic (valve) stenosis Code(s): I35.0 - Nonrheumatic aortic (valve) stenosis Status: Chronic Assessment and Plan: Continue to monitor (10) Hypertension: Code(s): I10 - Essential (primary) hypertension Status: Acute Assessment and Plan: BP is 127/63 Continue home medications Trend BP Adjust therapy as indicated (11) Hyperlipidemia: Code(s): E78.5 - Hyperlipidemia, unspecified Status: Acute Assessment and Plan
[2022-12-14 08:29] LABS: NT Pro B Type Natriuretic Pept 1330 pg/mL (19.9-100)
[2022-12-14 08:39] LABS: Glucose Point of Care 95 mg/dl (65-105)
[2022-12-14] MEDS: LACTULOSE 20 GM/30 ML UDC PO (08:42)
[2022-12-14] MEDS: GABAPENTIN 300 MG CAPSULE 600 MG PO ×3 (08:42→16:41)
[2022-12-14] MEDS: lamoTRIgine 50 MG TABLET PO ×2 (08:42→20:48)
[2022-12-14] MEDS: ESCITALOPRAM OXALATE 5 MG TABLET PO (08:42)
[2022-12-14] MEDS: lamoTRIgine 100 MG TABLET PO ×2 (08:42→20:49)
[2022-12-14] MEDS: amLODIPine BESYLATE 5 MG TABLET 10 MG PO (08:43)
[2022-12-14] MEDS: SIMETHICONE 80 MG TAB.CHEW PO ×4 (08:47→20:47)
[2022-12-14] MEDS: UMECLIDINIUM/VILANTEROL 62.5-25 MCG ELLIPTA 1 PUFF INHALATION (08:54)
[2022-12-14] MEDS: FUROSEMIDE 40 MG TABLET PO (09:12)
[2022-12-14] MEDS: SODIUM CHLORIDE 0.9% IV 250 ML 30 ML IV CONT (11:29)
--- NOTE | 2022-12-14 11:37 | PCPTNOTE ---
Nursing just started blood transfusion, will wait until complete to perform PT evaluation.
[2022-12-14 11:58] LABS: Glucose Point of Care 106 mg/dl (65-105)
--- NOTE | 2022-12-14 15:04 | PC.NURSE ---
Huang Peng [employer] notified of pt more sob after blood transfusion. Audible wheezes noted, 02 2l sat 93%
[2022-12-14] MEDS: FUROSEMIDE INJ 40 MG/4 ML VIAL IV PUSH (16:40)
[2022-12-14 17:05] LABS: Glucose Point of Care 99 mg/dl (65-105)
[2022-12-14 17:20] LABS: Hematocrit 25.8 % (37.0-47.0)
[2022-12-14] MEDS: SALINE 0.65% NAS SOLN 44 ML BTL 1 SPRAY NASAL (20:46)
[2022-12-14] MEDS: ACETAMINOPHEN 500 MG TABLET 1000 MG PO (20:46)
[2022-12-14] MEDS: MELATONIN 3 MG TABLET PO (20:46)
[2022-12-14] MEDS: hydrOXYzine HCL 25 MG TABLET PO (20:46)
[2022-12-14] MEDS: ROSUVASTATIN 10 MG TABLET 20 MG PO (20:50)
[2022-12-14] MEDS: traZODone HCL 50 MG TABLET 300 MG PO (20:50)
[2022-12-14] MEDS: INSULIN GLARGINE (*BKC) 100 UNITS/ML 9 UNITS SUB-Q (21:00)
[2022-12-14 22:49] LABS: Glucose Point of Care 108 mg/dl (65-105)
[2022-12-15] VITALS (17 sets, daily range): BP systolic 115–140; BP diastolic 32–49; PULSE 44–62; RESP 14–24; TEMP 36.3–36.8; O2SAT 86–98
[2022-12-15] MEDS: LEVOTHYROXINE SODIUM 25 MCG TABLET PO (05:58)
[2022-12-15] MEDS: LEVOTHYROXINE SODIUM 112 MCG TABLET PO (05:58)
[2022-12-15] MEDS: UMECLIDINIUM/VILANTEROL 62.5-25 MCG ELLIPTA 1 PUFF INHALATION (07:48)
[2022-12-15 07:56] LABS: Glucose Point of Care 95 mg/dl (65-105)
[2022-12-15 08:23] LABS: Basophils Absolute Auto 0.1 K/mm3 (0.0-0.1); Basophils Percent Auto 1.3 % (0.2-1.2); Eosinophils Absolute Auto 0.2 K/mm3 (0-0.3); Eosinophils Percent Auto 6.4 % (0-4.4); Hematocrit 27.1 % (37.0-47.0); Hemoglobin 8.4 g/dL (12.0-15.0); Immature Granulocyte Absolute 0.03 K/mm3 (0.00-0.031); Immature Granulocyte Percent A 0.8 % (0-0.5); Lymphocytes Absolute Auto 0.81 K/mm3 (0.9-3.2); Lymphocytes Percent Auto 21.6 % (18.3-44.2); Mean Corpuscular Volume 93.4 fl (80-100); Mean Platelet Volume 9.8 fl (7.4-10.4); Monocytes Absolute Auto 0.2 K/mm3 (0.1-0.6); Monocytes Percent Auto 5.3 % (2.6-8.5); Neutrophils Absolute Auto 2.4 K/mm3 (1.3-6.7); Neutrophils Percent Auto 64.6 % (45.5-73.1); Platelet Count Result 157 k/mm3 (150-375); Red Cell Distribution Width 16.4 % (11.5-14.5); White Blood Count 3.8 K/mm3 (4.5-10.0)
[2022-12-15 08:36] LABS: Alanine Aminotransferase 20 U/L (6-35); Albumin Level 3.9 g/dL (3.5-5.1); Alkaline Phosphatase 340 U/L (38-126); Anion Gap 7 mmol/L (8-16); Aspartate Amino Transferase 44 U/L (14-36); Bilirubin,Total 0.5 mg/dL (0.2-1.3); Blood Urea Nitrogen 40 mg/dL (7-17); Calcium 8.3 mg/dL (8.4-10.2); Carbon Dioxide 25 mmol/L (22-30); Chloride 103 mmol/L (98-107); Estimated Glomerular Filt Rate 19; Glucose 89 mg/dL (65-110); Magnesium 2.3 mg/dL (1.6-2.3); Potassium 4.2 mmol/L (3.4-5.0); Sodium 135 mmol/L (137-145)
--- NOTE | 2022-12-15 10:00 | P.PNIM_ITS ---
Progress Note: A&P Assessment and Plan (1) Acute on chronic anemia: Code(s): D64.9 - Anemia, unspecified Status: Acute Assessment and Plan: * H/H better today at 8.4/27.1 * Seems to have multiple episodes of low hemoglobin * Transfuse one unit of PRBC 12/14/22 * Continue to trend H/H * Stop Lovenox at this time * IV iron give 500mg Once * Anemia labs from 12/02/22 iron 47, TIBC 403, % sat 12, Ferritin 52.30, B12 497, Folate 5.6 * anemia of chronic disease most likely from CKD * Does follow with hematology outpatient, last dose of epoetin saray given on 12/02/22, next dose scheduled for 12/16/22 (2) Acute exacerbation of CHF (congestive heart failure): Code(s): I50.9 - Heart failure, unspecified Status: Acute Assessment and Plan: * BNP elevated at 985, repeat ordered * Chest xray show worsening pulmonary edema from 11/06/22 * Chest xray from 12/13/22 showed improvements from 12/12/22 * Chest xray from 12/15/22 shows persistent pulmonary edema * One dose of IV lasix 40mg x1 * Echo from 11/07/22 showed hyperdynamic systolic function, and grade 2 diastolic dysfunction * Acute on chronic diastolic heart failure in exacerbation * CHF education * Change IV lasix back to home 40mg PO daily due to worsening renal failure * Trend weights * Strict I&O * Fluid restriction (3) Dyspnea: Code(s): R06.00 - Dyspnea, unspecified Status: Acute Assessment and Plan: * Found with low saturations prior to arrival * Supplemental oxygen, wean to maintain saturation >90% * Currently on room air * Chest xray shows pulmonary edema * H/H low 12/14/22 at 6.0/19.9, one unit of PRBC ordered * H/H better today * Trend respiratory status * negative for RSV, influenza type A influenza type B and COVID-19 (4) Tremor: Code(s): R25.1 - Tremor, unspecified Status: Acute Assessment and Plan: * CT of the head with no acute abnormalities * History of tremors, seems to be back to baseline * Consider MRI if worsens * Seems to be related to anxiety (5) Chronic kidney disease, stage 4 (severe): Code(s): N18.4 - Chronic kidney disease, stage 4 (severe) Status: Acute Assessment and Plan: * BUN/Cr currently at 40/2.50 * Recheck BNP, 1330 higher than admission * Baseline 1.9-2.4 * Avoid nephrotoxic medications * Continue to trend labs * Changed IV lasix to PO lasix * Probably related to diabetes and HTN (6) Type 2 diabetes mellitus: Code(s): E11.9 - Type 2 diabetes mellitus without complications Status: Chronic Assessment and Plan: * Current glucose 89 * A1c from 11/06/22 was 6.3 * Stable * Continue lantus 9 units at night * Accu-Cheks AC and HS * Hypoglycemia protocol * ISS * trend labs * Adjust therapy as indicated (7) 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
--- NOTE | 2022-12-15 10:00 | PM.IMPN ---
Progress Note: A&P Assessment and Plan (1) Acute on chronic anemia: Code(s): D64.9 - Anemia, unspecified Status: Acute Assessment and Plan: H/H better today at 8.4/27.1 Seems to have multiple episodes of low hemoglobin Transfuse one unit of PRBC 12/14/22 Continue to trend H/H Stop Lovenox at this time IV iron give 500mg Once Anemia labs from 12/02/22 iron 47, TIBC 403, % sat 12, Ferritin 52.30, B12 497, Folate 5.6 anemia of chronic disease most likely from CKD Does follow with hematology outpatient, last dose of epoetin saray given on 12/02/22, next dose scheduled for 12/16/22 (2) Acute exacerbation of CHF (congestive heart failure): Code(s): I50.9 - Heart failure, unspecified Status: Acute Assessment and Plan: BNP elevated at 985, repeat ordered Chest xray show worsening pulmonary edema from 11/06/22 Chest xray from 12/13/22 showed improvements from 12/12/22 Chest xray from 12/15/22 shows persistent pulmonary edema One dose of IV lasix 40mg x1 Echo from 11/07/22 showed hyperdynamic systolic function, and grade 2 diastolic dysfunction Acute on chronic diastolic heart failure in exacerbation CHF education Change IV lasix back to home 40mg PO daily due to worsening renal failure Trend weights Strict I&O Fluid restriction (3) Dyspnea: Code(s): R06.00 - Dyspnea, unspecified Status: Acute Assessment and Plan: Found with low saturations prior to arrival Supplemental oxygen, wean to maintain saturation >90% Currently on room air Chest xray shows pulmonary edema H/H low 12/14/22 at 6.0/19.9, one unit of PRBC ordered H/H better today Trend respiratory status negative for RSV, influenza type A influenza type B and COVID-19 (4) Tremor: Code(s): R25.1 - Tremor, unspecified Status: Acute Assessment and Plan: CT of the head with no acute abnormalities History of tremors, seems to be back to baseline Consider MRI if worsens Seems to be related to anxiety (5) Chronic kidney disease, stage 4 (severe): Code(s): N18.4 - Chronic kidney disease, stage 4 (severe) Status: Acute Assessment and Plan: BUN/Cr currently at 40/2.50 Recheck BNP, 1330 higher than admission Baseline 1.9-2.4 Avoid nephrotoxic medications Continue to trend labs Changed IV lasix to PO lasix Probably related to diabetes and HTN (6) Type 2 diabetes mellitus: Code(s): E11.9 - Type 2 diabetes mellitus without complications Status: Chronic Assessment and Plan: Current glucose 89 A1c from 11/06/22 was 6.3 Stable Continue lantus 9 units at night Accu-Cheks AC and HS Hypoglycemia protocol ISS trend labs Adjust therapy as indicated (7) 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: Code(s): K75.81 - Nonalcoholic steatohepatitis (ZIEGLER); K74.60 - Unspecified cirrhosis of liver Status: Chronic Assessment and Plan: Unchanged LFTs stable (8) Chronic obstructive pulmonary disease: Code(s): J44.9 - Chronic obstructive pulmonary disease, unspecified Status: Acute Assessment and Plan: Breathing treatments as needed Continue home Anoro Ellipta Supplemental oxygen, wean to maintain saturation >90% not in acute exacerbation (9) Aortic stenosis: Qualifiers: Cardiac valve disease etiology: nonrheumatic Qualified Code(s): I35.0 - Nonrheumatic aortic (valve) stenosis Code(s): I35.0 - Nonrheumatic aortic (valve) stenosis Status: Chronic Assessment and Plan: Continue to monitor (10) Hypertension: Code(s): I10 - Essential (primary) hypertension Status: Acute Assessment and Plan: BP is 128/32 Continue home medications Trend BP Adjust therapy as indicated (11) Hyperlipidemia
[2022-12-15] MEDS: GABAPENTIN 300 MG CAPSULE 600 MG PO ×3 (10:02→16:27)
[2022-12-15] MEDS: amLODIPine BESYLATE 5 MG TABLET 10 MG PO (10:02)
[2022-12-15] MEDS: ESCITALOPRAM OXALATE 5 MG TABLET PO (10:02)
[2022-12-15] MEDS: lamoTRIgine 50 MG TABLET PO ×2 (10:03→21:10)
[2022-12-15] MEDS: lamoTRIgine 100 MG TABLET PO ×2 (10:03→21:11)
[2022-12-15] MEDS: FUROSEMIDE 40 MG TABLET PO (10:03)
[2022-12-15] MEDS: SIMETHICONE 80 MG TAB.CHEW PO ×4 (10:04→21:10)
[2022-12-15] MEDS: FUROSEMIDE INJ 40 MG/4 ML VIAL IV PUSH (10:21)
[2022-12-15] MEDS: IRON SUCROSE COMPLEX 500 MG in SODIUM CHLORIDE 0.9% IV 250 ML 78.57 MG IVPB (11:26)
[2022-12-15 11:59] LABS: Glucose Point of Care 101 mg/dl (65-105)
[2022-12-15] MEDS: ACETAMINOPHEN 500 MG TABLET 1000 MG PO (16:26)
[2022-12-15] MEDS: hydrOXYzine HCL 25 MG TABLET PO ×2 (16:27→23:15)
[2022-12-15 17:02] LABS: Glucose Point of Care 146 mg/dl (65-105)
[2022-12-15 17:28] LABS: Free T4 Free Thyroxine Reflex 0.94 ng/dL (0.78-2.19)
[2022-12-15] MEDS: ROSUVASTATIN 10 MG TABLET 20 MG PO (21:10)
[2022-12-15] MEDS: traZODone HCL 50 MG TABLET 300 MG PO (21:11)
[2022-12-15] MEDS: MELATONIN 3 MG TABLET PO (21:11)
[2022-12-15 21:48] LABS: Total Triiodothyronine (T3) 1.24 NG/ML (0.97-1.69)
[2022-12-15] MEDS: ALPRAZolam (*CRX) 0.125 MG TABLET PO (23:16)
[2022-12-16] VITALS (12 sets, daily range): BP systolic 113–136; BP diastolic 43–50; PULSE 46–68; RESP 16; TEMP 36.6–37.2; O2SAT 90–99
[2022-12-16 00:18] LABS: Glucose Point of Care 90 mg/dl (65-105)
[2022-12-16] MEDS: LEVOTHYROXINE SODIUM 112 MCG TABLET PO (05:19)
[2022-12-16] MEDS: LEVOTHYROXINE SODIUM 25 MCG TABLET PO (05:19)
[2022-12-16 05:31] LABS: Basophils Percent Auto 1.1 % (0.2-1.2); Eosinophils Absolute Auto 0.2 K/mm3 (0-0.3); Eosinophils Percent Auto 5.9 % (0-4.4); Hemoglobin 7.5 g/dL (12.0-15.0); Immature Granulocyte Absolute 0.04 K/mm3 (0.00-0.031); Immature Granulocyte Percent A 1.1 % (0-0.5); Lymphocytes Absolute Auto 0.69 K/mm3 (0.9-3.2); Lymphocytes Percent Auto 19.5 % (18.3-44.2); Mean Corpuscular HGB Conc 31.3 g/dl (32-36); Mean Corpuscular Hemoglobin 29.5 pg (26-34); Mean Corpuscular Volume 94.5 fl (80-100); Monocytes Absolute Auto 0.2 K/mm3 (0.1-0.6); Monocytes Percent Auto 6.5 % (2.6-8.5); Neutrophils Absolute Auto 2.3 K/mm3 (1.3-6.7); Neutrophils Percent Auto 65.9 % (45.5-73.1); Platelet Count Result 146 k/mm3 (150-375); Red Blood Count 2.54 M/mm3 (4.2-5.4); Red Cell Distribution Width 16.2 % (11.5-14.5); White Blood Count 3.5 K/mm3 (4.5-10.0)
[2022-12-16 05:44] LABS: Alanine Aminotransferase 18 U/L (6-35); Albumin Level 3.5 g/dL (3.5-5.1); Alkaline Phosphatase 280 U/L (38-126); Anion Gap 7 mmol/L (8-16); Aspartate Amino Transferase 40 U/L (14-36); Bilirubin,Total 0.3 mg/dL (0.2-1.3); Blood Urea Nitrogen 40 mg/dL (7-17); Calcium 8.2 mg/dL (8.4-10.2); Carbon Dioxide 26 mmol/L (22-30); Chloride 106 mmol/L (98-107); Estimated Glomerular Filt Rate 20; Glucose 86 mg/dL (65-110); Magnesium 2.2 mg/dL (1.6-2.3); Potassium 4.2 mmol/L (3.4-5.0); Sodium 139 mmol/L (137-145)
--- NOTE | 2022-12-16 06:44 | P.PNIM_ITS ---
Progress Note: A&P Assessment and Plan (1) Acute on chronic anemia: Code(s): D64.9 - Anemia, unspecified Status: Acute Assessment and Plan: * H/H better today at 7.5/24.0 * Seems to have multiple episodes of low hemoglobin * Transfuse one unit of PRBC 12/14/22 * Continue to trend H/H * Stop Lovenox at this time * IV iron give 500mg Once * Anemia labs from 12/02/22 iron 47, TIBC 403, % sat 12, Ferritin 52.30, B12 497, Folate 5.6 * anemia of chronic disease most likely from CKD * Does follow with hematology outpatient, last dose of epoetin saray given on 12/02/22, next dose scheduled for 12/16/22 (2) Acute exacerbation of CHF (congestive heart failure): Code(s): I50.9 - Heart failure, unspecified Status: Acute Assessment and Plan: * BNP elevated at 985, repeat ordered * Chest xray show worsening pulmonary edema from 11/06/22 * Chest xray from 12/13/22 showed improvements from 12/12/22 * Chest xray from 12/15/22 shows persistent pulmonary edema * Echo from 11/07/22 showed hyperdynamic systolic function, and grade 2 diastolic dysfunction * Acute on chronic diastolic heart failure in exacerbation * CHF education * Change IV lasix back to home 40mg PO daily due to worsening renal failure * Trend weights * Strict I&O * Fluid restriction (3) Dyspnea: Code(s): R06.00 - Dyspnea, unspecified Status: Acute Assessment and Plan: * Found with low saturations prior to arrival * Supplemental oxygen, wean to maintain saturation >90% * Currently on room air * Chest xray shows pulmonary edema * H/H low 12/14/22 at 6.0/19.9, one unit of PRBC ordered * H/H continues to be stable * Trend respiratory status * negative for RSV, influenza type A influenza type B and COVID-19 (4) Tremor: Code(s): R25.1 - Tremor, unspecified Status: Acute Assessment and Plan: * CT of the head with no acute abnormalities * History of tremors, seems to be back to baseline * Consider MRI if worsens * Seems to be related to anxiety (5) Chronic kidney disease, stage 4 (severe): Code(s): N18.4 - Chronic kidney disease, stage 4 (severe) Status: Acute Assessment and Plan: * BUN/Cr currently at 40/2.40 * Recheck BNP, 1330 higher than admission * Baseline 1.9-2.4 * Avoid nephrotoxic medications * Continue to trend labs * continue PO lasix * Probably related to diabetes and HTN (6) Type 2 diabetes mellitus: Code(s): E11.9 - Type 2 diabetes mellitus without complications Status: Chronic Assessment and Plan: * Current glucose 86 * A1c from 11/06/22 was 6.3 * Stable * Continue lantus 9 units at night * Accu-Cheks AC and HS * Hypoglycemia protocol * ISS * trend labs * Adjust therapy as indicated (7) 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
--- NOTE | 2022-12-16 06:44 | PM.IMPN ---
Progress Note: A&P Assessment and Plan (1) Acute on chronic anemia: Code(s): D64.9 - Anemia, unspecified Status: Acute Assessment and Plan: H/H better today at 7.5/24.0 Seems to have multiple episodes of low hemoglobin Transfuse one unit of PRBC 12/14/22 Continue to trend H/H Stop Lovenox at this time IV iron give 500mg Once Anemia labs from 12/02/22 iron 47, TIBC 403, % sat 12, Ferritin 52.30, B12 497, Folate 5.6 anemia of chronic disease most likely from CKD Does follow with hematology outpatient, last dose of epoetin saray given on 12/02/22, next dose scheduled for 12/16/22 (2) Acute exacerbation of CHF (congestive heart failure): Code(s): I50.9 - Heart failure, unspecified Status: Acute Assessment and Plan: BNP elevated at 985, repeat ordered Chest xray show worsening pulmonary edema from 11/06/22 Chest xray from 12/13/22 showed improvements from 12/12/22 Chest xray from 12/15/22 shows persistent pulmonary edema Echo from 11/07/22 showed hyperdynamic systolic function, and grade 2 diastolic dysfunction Acute on chronic diastolic heart failure in exacerbation CHF education Change IV lasix back to home 40mg PO daily due to worsening renal failure Trend weights Strict I&O Fluid restriction (3) Dyspnea: Code(s): R06.00 - Dyspnea, unspecified Status: Acute Assessment and Plan: Found with low saturations prior to arrival Supplemental oxygen, wean to maintain saturation >90% Currently on room air Chest xray shows pulmonary edema H/H low 12/14/22 at 6.0/19.9, one unit of PRBC ordered H/H continues to be stable Trend respiratory status negative for RSV, influenza type A influenza type B and COVID-19 (4) Tremor: Code(s): R25.1 - Tremor, unspecified Status: Acute Assessment and Plan: CT of the head with no acute abnormalities History of tremors, seems to be back to baseline Consider MRI if worsens Seems to be related to anxiety (5) Chronic kidney disease, stage 4 (severe): Code(s): N18.4 - Chronic kidney disease, stage 4 (severe) Status: Acute Assessment and Plan: BUN/Cr currently at 40/2.40 Recheck BNP, 1330 higher than admission Baseline 1.9-2.4 Avoid nephrotoxic medications Continue to trend labs continue PO lasix Probably related to diabetes and HTN (6) Type 2 diabetes mellitus: Code(s): E11.9 - Type 2 diabetes mellitus without complications Status: Chronic Assessment and Plan: Current glucose 86 A1c from 11/06/22 was 6.3 Stable Continue lantus 9 units at night Accu-Cheks AC and HS Hypoglycemia protocol ISS trend labs Adjust therapy as indicated (7) 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: Code(s): K75.81 - Nonalcoholic steatohepatitis (ZIEGLER); K74.60 - Unspecified cirrhosis of liver Status: Chronic Assessment and Plan: Unchanged LFTs stable (8) Chronic obstructive pulmonary disease: Code(s): J44.9 - Chronic obstructive pulmonary disease, unspecified Status: Acute Assessment and Plan: Breathing treatments as needed Continue home Anoro Ellipta Supplemental oxygen, wean to maintain saturation >90% not in acute exacerbation (9) Aortic stenosis: Qualifiers: Cardiac valve disease etiology: nonrheumatic Qualified Code(s): I35.0 - Nonrheumatic aortic (valve) stenosis Code(s): I35.0 - Nonrheumatic aortic (valve) stenosis Status: Chronic Assessment and Plan: Continue to monitor (10) Hypertension: Code(s): I10 - Essential (primary) hypertension Status: Acute Assessment and Plan: BP is 113/47 Continue home medications Trend BP Adjust therapy as indicated (11) Hyperlipidemia: Code(s): E78.5 - Hype
[2022-12-16 08:38] LABS: Glucose Point of Care 83 mg/dl (65-105)
--- NOTE | 2022-12-16 09:30 | P.DS_ITS ---
DS: Admitting Diagnosis Discharge Date 12/16/22929 Admitting Diagnosis Acute on chronic anemia of chronic disease, Acute exacerbation of CHF DS: Discharge Diagnosis Discharge Diagnosis (1) Acute on chronic anemia: Code(s): D64.9 - Anemia, unspecified Status: Acute Assessment and Plan: * H/H better today at 7.5/24.0 * Seems to have multiple episodes of low hemoglobin * Transfuse one unit of PRBC 12/14/22 * Continue to trend H/H * Stop Lovenox at this time * IV iron give 500mg Once * Anemia labs from 12/02/22 iron 47, TIBC 403, % sat 12, Ferritin 52.30, B12 497, Folate 5.6 * anemia of chronic disease most likely from CKD * Does follow with hematology outpatient, last dose of epoetin saray given on 12/02/22, next dose scheduled for 12/16/22 (2) Acute exacerbation of CHF (congestive heart failure): Code(s): I50.9 - Heart failure, unspecified Status: Acute Assessment and Plan: * BNP elevated at 985, repeat ordered * Chest xray show worsening pulmonary edema from 11/06/22 * Chest xray from 12/13/22 showed improvements from 12/12/22 * Chest xray from 12/15/22 shows persistent pulmonary edema * Echo from 11/07/22 showed hyperdynamic systolic function, and grade 2 diastolic dysfunction * Acute on chronic diastolic heart failure in exacerbation * CHF education * Change IV lasix back to home 40mg PO daily due to worsening renal failure * Trend weights * Strict I&O * Fluid restriction (3) Dyspnea: Code(s): R06.00 - Dyspnea, unspecified Status: Acute Assessment and Plan: * Found with low saturations prior to arrival * Supplemental oxygen, wean to maintain saturation >90% * Currently on room air * Chest xray shows pulmonary edema * H/H low 12/14/22 at 6.0/19.9, one unit of PRBC ordered * H/H continues to be stable * Trend respiratory status * negative for RSV, influenza type A influenza type B and COVID-19 (4) Tremor: Code(s): R25.1 - Tremor, unspecified Status: Acute Assessment and Plan: * CT of the head with no acute abnormalities * History of tremors, seems to be back to baseline * Consider MRI if worsens * Seems to be related to anxiety (5) Chronic kidney disease, stage 4 (severe): Code(s): N18.4 - Chronic kidney disease, stage 4 (severe) Status: Acute Assessment and Plan: * BUN/Cr currently at 40/2.40 * Recheck BNP, 1330 higher than admission * Baseline 1.9-2.4 * Avoid nephrotoxic medications * Continue to trend labs * continue PO lasix * Probably related to diabetes and HTN (6) Type 2 diabetes mellitus: Code(s): E11.9 - Type 2 diabetes mellitus without complications Status: Chronic Assessment and Plan: * Current glucose 86 * A1c from 11/06/22 was 6.3 * Stable * Continue lantus 9 units at night * Accu-Cheks AC and HS * Hypoglycemia protocol * ISS * trend labs * Adjust therapy as indicated (7) 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
--- NOTE | 2022-12-16 09:30 | PM.DS ---
DS: Admitting Diagnosis Discharge Date 12/16/22929 Admitting Diagnosis Acute on chronic anemia of chronic disease, Acute exacerbation of CHF DS: Discharge Diagnosis Discharge Diagnosis (1) Acute on chronic anemia: Code(s): D64.9 - Anemia, unspecified Status: Acute Assessment and Plan: H/H better today at 7.5/24.0 Seems to have multiple episodes of low hemoglobin Transfuse one unit of PRBC 12/14/22 Continue to trend H/H Stop Lovenox at this time IV iron give 500mg Once Anemia labs from 12/02/22 iron 47, TIBC 403, % sat 12, Ferritin 52.30, B12 497, Folate 5.6 anemia of chronic disease most likely from CKD Does follow with hematology outpatient, last dose of epoetin saray given on 12/02/22, next dose scheduled for 12/16/22 (2) Acute exacerbation of CHF (congestive heart failure): Code(s): I50.9 - Heart failure, unspecified Status: Acute Assessment and Plan: BNP elevated at 985, repeat ordered Chest xray show worsening pulmonary edema from 11/06/22 Chest xray from 12/13/22 showed improvements from 12/12/22 Chest xray from 12/15/22 shows persistent pulmonary edema Echo from 11/07/22 showed hyperdynamic systolic function, and grade 2 diastolic dysfunction Acute on chronic diastolic heart failure in exacerbation CHF education Change IV lasix back to home 40mg PO daily due to worsening renal failure Trend weights Strict I&O Fluid restriction (3) Dyspnea: Code(s): R06.00 - Dyspnea, unspecified Status: Acute Assessment and Plan: Found with low saturations prior to arrival Supplemental oxygen, wean to maintain saturation >90% Currently on room air Chest xray shows pulmonary edema H/H low 12/14/22 at 6.0/19.9, one unit of PRBC ordered H/H continues to be stable Trend respiratory status negative for RSV, influenza type A influenza type B and COVID-19 (4) Tremor: Code(s): R25.1 - Tremor, unspecified Status: Acute Assessment and Plan: CT of the head with no acute abnormalities History of tremors, seems to be back to baseline Consider MRI if worsens Seems to be related to anxiety (5) Chronic kidney disease, stage 4 (severe): Code(s): N18.4 - Chronic kidney disease, stage 4 (severe) Status: Acute Assessment and Plan: BUN/Cr currently at 40/2.40 Recheck BNP, 1330 higher than admission Baseline 1.9-2.4 Avoid nephrotoxic medications Continue to trend labs continue PO lasix Probably related to diabetes and HTN (6) Type 2 diabetes mellitus: Code(s): E11.9 - Type 2 diabetes mellitus without complications Status: Chronic Assessment and Plan: Current glucose 86 A1c from 11/06/22 was 6.3 Stable Continue lantus 9 units at night Accu-Cheks AC and HS Hypoglycemia protocol ISS trend labs Adjust therapy as indicated (7) 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: Code(s): K75.81 - Nonalcoholic steatohepatitis (ZIEGLER); K74.60 - Unspecified cirrhosis of liver Status: Chronic Assessment and Plan: Unchanged LFTs stable (8) Chronic obstructive pulmonary disease: Code(s): J44.9 - Chronic obstructive pulmonary disease, unspecified Status: Acute Assessment and Plan: Breathing treatments as needed Continue home Anoro Ellipta Supplemental oxygen, wean to maintain saturation >90% not in acute exacerbation (9) Aortic stenosis: Qualifiers: Cardiac valve disease etiology: nonrheumatic Qualified Code(s): I35.0 - Nonrheumatic aortic (valve) stenosis Code(s): I35.0 - Nonrheumatic aortic (valve) stenosis Status: Chronic Assessment and Plan: Continue to monitor (10) Hypertension: Code(s): I10 - Essential (primary) hypertension Status: Acute Assessment and Marek
[2022-12-16] MEDS: UMECLIDINIUM/VILANTEROL 62.5-25 MCG ELLIPTA 1 PUFF INHALATION (10:16)
[2022-12-16] MEDS: amLODIPine BESYLATE 5 MG TABLET 10 MG PO (10:30)
[2022-12-16] MEDS: FUROSEMIDE 40 MG TABLET PO (10:31)
[2022-12-16] MEDS: SENNA/DOCUSATE SODIUM TABLET 1 TAB PO (10:31)
[2022-12-16] MEDS: ESCITALOPRAM OXALATE 5 MG TABLET PO (10:31)
[2022-12-16] MEDS: lamoTRIgine 50 MG TABLET PO (10:32)
[2022-12-16] MEDS: GABAPENTIN 300 MG CAPSULE 600 MG PO ×3 (10:32→17:32)
[2022-12-16] MEDS: lamoTRIgine 100 MG TABLET PO (10:32)
[2022-12-16] MEDS: SIMETHICONE 80 MG TAB.CHEW PO ×3 (10:33→17:32)
[2022-12-16] MEDS: hydrOXYzine HCL 25 MG TABLET PO (10:35)
[2022-12-16 12:05] LABS: Glucose Point of Care 87 mg/dl (65-105)
--- NOTE | 2022-12-16 13:40 | PCRCNOTE ---
Home O2 eval done, no home O2 needed. RN notified
--- NOTE | 2022-12-16 15:41 | PCRCNOTE ---
HOME NEB SET UP WITH [employer] [facility].THEY WILL ALSO DO A INSTRUC WHEN THEY DROP OFF MACHINE TO PT. PHONE # OFFICE LINE [phone]
[2022-12-16 16:49] LABS: EDCOVIDSCREEN Negative (Negative)
[2022-12-16 17:05] LABS: Glucose Point of Care 101 mg/dl (65-105)
== END 2022-12-16 18:31 | DRG 291 ==
LOC: ANHED 18:43 → ANH2MED 20:56
PROVIDERS: Admitting Provider Internal Medicine; Emergency Provider Preventive Medicine Aerospace Medicine; PCP Internal Medicine; Visit Provider Nurse Practitioner
DX: I13.0 Hypertensive heart and chronic kidney disease with heart failure and stage 1 through stage 4 chronic kidney disease, or unspecified chronic kidney disease (principal); I50.33 Acute on chronic diastolic (congestive) heart failure; N18.4 Chronic kidney disease, stage 4 (severe); D63.1 Anemia in chronic kidney disease; E11.22 Type 2 diabetes mellitus with diabetic chronic kidney disease; N18.9 Chronic kidney disease, unspecified; R25.1 Tremor, unspecified; K74.69 Other cirrhosis of liver; K75.81 Nonalcoholic steatohepatitis (NASH); J44.9 Chronic obstructive pulmonary disease, unspecified; I35.0 Nonrheumatic aortic (valve) stenosis; E78.5 Hyperlipidemia, unspecified; E03.9 Hypothyroidism, unspecified; F31.9 Bipolar disorder, unspecified; R00.1 Bradycardia, unspecified; K21.9 Gastro-esophageal reflux disease without esophagitis; Z20.822 Contact with and (suspected) exposure to COVID-19; J45.909 Unspecified asthma, uncomplicated; E11.42 Type 2 diabetes mellitus with diabetic polyneuropathy; M81.0 Age-related osteoporosis without current pathological fracture; M19.90 Unspecified osteoarthritis, unspecified site; Z86.73 Personal history of transient ischemic attack (TIA), and cerebral infarction without residual deficits
CPT/HCPCS: 36415; 36430; 70450; 71045; 71046; 74018; 80053; 81001; 82140; 82948; 83735; 83880; 84439; 84443; 84480; 84484; 85014; 85018; 85025; 86850; 86900; 86901; 86922; 87426; 87634; 87636; 93005; 94618; 94640; 96374; 96376; 97110; 97161; 97165; 97535; 99285; A9270; C9803; G0378; J1756; J1815; J1940; J7050; P9016

== ENCOUNTER 2022-12-19 10:31 | Outpatient (CLI) | payer MEDICARE, MEDICAID, SELFPAY ==
[2022-12-19 11:19] LABS: Basophils Absolute Auto 0.1 K/mm3 (0.0-0.1); Basophils Percent Auto 1.1 % (0.2-1.2); Eosinophils Absolute Auto 0.3 K/mm3 (0-0.3); Hematocrit 25.3 % (37.0-47.0); Immature Granulocyte Absolute 0.12 K/mm3 (0.00-0.031); Immature Granulocyte Percent A 1.9 % (0-0.5); Lymphocytes Percent Auto 15.8 % (18.3-44.2); Mean Corpuscular HGB Conc 27.7 g/dl (32-36); Mean Corpuscular Hemoglobin 29.9 pg (26-34); Mean Corpuscular Volume 108.1 fl (80-100); Mean Platelet Volume 10.6 fl (7.4-10.4); Monocytes Absolute Auto 0.3 K/mm3 (0.1-0.6); Monocytes Percent Auto 4.9 % (2.6-8.5); Neutrophils Absolute Auto 4.6 K/mm3 (1.3-6.7); Neutrophils Percent Auto 72.3 % (45.5-73.1); Nucleated Red Blood Cells Perc 0.5 % (0.0-0.2); Platelet Count Result 142 k/mm3 (150-375); Red Blood Count 2.34 M/mm3 (4.2-5.4); Red Cell Distribution Width 18.3 % (11.5-14.5); White Blood Count 6.3 K/mm3 (4.5-10.0)
[2022-12-19 11:30] LABS: Alanine Aminotransferase 26 U/L (6-35); Albumin Level 4.1 g/dL (3.5-5.1); Alkaline Phosphatase 373 U/L (38-126); Anion Gap 9 mmol/L (8-16); Aspartate Amino Transferase 60 U/L (14-36); Bilirubin,Total 0.4 mg/dL (0.2-1.3); Blood Urea Nitrogen 42 mg/dL (7-17); Calcium 8.9 mg/dL (8.4-10.2); Carbon Dioxide 23 mmol/L (22-30); Chloride 106 mmol/L (98-107); Estimated Glomerular Filt Rate 23; Glucose 109 mg/dL (65-110); Hypochromasia 1+ (NORMAL); Potassium 4.3 mmol/L (3.4-5.0); Schistocytes None Seen (NORMAL); Sodium 138 mmol/L (137-145)
== END 2022-12-19 10:32 | disposition home or self-care (01) ==
LOC: ANHLAB 10:33
PROVIDERS: PCP Internal Medicine; Visit Provider Clinical Nurse Specialist
DX: J44.9 Chronic obstructive pulmonary disease, unspecified (principal); I10 Essential (primary) hypertension
CPT/HCPCS: 36415; 80053; 85025

== ENCOUNTER 2022-12-22 08:16 | Inpatient (IN) | payer MEDICARE, MEDICAID, SELFPAY ==
[2022-12-22] VITALS (29 sets, daily range): BP systolic 127–152; BP diastolic 44–61; PULSE 56–72; RESP 16–29; TEMP 36.3–36.8; O2SAT 89–100
--- NOTE | ~2022-12-22 | XR_ITS ---
Clinical Indication: Shortness of breath, COPD AP and lateral views of the chest: Comparison: 12/15/2022 Findings: Small left pleural effusion is present. There is mild bibasilar pulmonary edema. Cardiomed iastinal silhouette is within normal limits. Bones and soft tissues are unremarkable. Impression: Small left pleural effusion with mild bibasilar pulmonary edema. Reviewed, dictated and finalized at location . [employer] Impression: Small left pleural effusion with mild bibasilar pulmonary edema.
--- NOTE | ~2022-12-22 | CT_ITS ---
EXAMINATION: CT soft tissue neck chest wo DATE: 12/25/2022 13:18 INDICATION: Hoarseness. Swelling. TECHNIQUE: Computed tomography (CT) of the neck and chest was performed with 75 mL Omnipaque-350 intr avenous contrast. Automated exposure control and iterative reconstruction technique were employed. Th e dose-length product was 809.28 mGy-cm. COMPARISON: CT chest 12/09/2021 FINDINGS: CT NECK: There are likely changes of ocular lens replacement surgeries. There are no pathologically e nlarged lymph nodes. The paranasal sinuses are clear. The mastoid air cells are normal. There is mode rate cervical spondylosis. CT CHEST: There is mild emphysema. There is smooth septal thickening in the lungs, consistent with mi ld pulmonary edema. There is mild atelectasis bilaterally. There are small pleural effusions. Cardiom egaly is noted. No pericardial effusion. There are coronary artery calcifications. There are calcific ations of aortic valve. The liver demonstrates a nodular surface contour, consistent with cirrhosis. Paraesophageal varices are noted. There is a small volume of ascites in the upper abdomen. There is m oderate thoracic spondylosis. IMPRESSION: 1. Mild pulmonary edema with small pleural effusions. 2. Mild emphysema. 3. Cirrhosis of the liver with portal venous hypertension. 4. Small volume of ascites in the upper abdomen. Reviewed, dictated and finalized at location A. ER
--- NOTE | 2022-12-22 08:33 | ECG_ITS ---
Measurements Intervals Royal Rate: 58 P: 53 CO: 181 QRS: -52 QRSD: 166 T: 49 QT: 430 QTc: 423 Interpretive Statements SINUS BRADYCARDIA LEFT AXIS DEVIATION RIGHT BUNDLE BRANCH BLOCK INFERIOR INFARCT, AGE INDETERMINATE BASELINE WANDER- II, AVF, V2-V4 ABNORMAL ECG COMPARED TO ECG 12/12/2022 17:12:13 NO SIGNIFICANT CHANGES Electronically Signed On 12-22-2022 10:52:01 [employer]S EXAMINER by George Moyer D.O.
[2022-12-22 09:28] LABS: Basophils Absolute Auto 0.1 K/mm3 (0.0-0.1); Eosinophils Absolute Auto 0.1 K/mm3 (0-0.3); Eosinophils Percent Auto 2.7 % (0-4.4); Immature Granulocyte Percent A 1.9 % (0-0.5); Lymphocytes Absolute Auto 0.79 K/mm3 (0.9-3.2); Lymphocytes Percent Auto 15.1 % (18.3-44.2); Mean Corpuscular HGB Conc 29.9 g/dl (32-36); Mean Corpuscular Hemoglobin 30.3 pg (26-34); Mean Corpuscular Volume 101.5 fl (80-100); Mean Platelet Volume 9.6 fl (7.4-10.4); Monocytes Absolute Auto 0.2 K/mm3 (0.1-0.6); Monocytes Percent Auto 3.8 % (2.6-8.5); Neutrophils Percent Auto 75.5 % (45.5-73.1); Nucleated Red Blood Cells Perc 0.4 % (0.0-0.2); Platelet Count Result 108 k/mm3 (150-375); Red Blood Count 2.01 M/mm3 (4.2-5.4); Red Cell Distribution Width 20.3 % (11.5-14.5); White Blood Count 5.2 K/mm3 (4.5-10.0)
[2022-12-22 09:38] LABS: Alanine Aminotransferase 24 U/L (6-35); Albumin Level 3.9 g/dL (3.5-5.1); Alkaline Phosphatase 353 U/L (38-126); Anion Gap 9 mmol/L (8-16); Aspartate Amino Transferase 48 U/L (14-36); Bilirubin,Total 0.6 mg/dL (0.2-1.3); Blood Urea Nitrogen 37 mg/dL (7-17); Calcium 8.6 mg/dL (8.4-10.2); Carbon Dioxide 22 mmol/L (22-30); Chloride 111 mmol/L (98-107); Estimated Glomerular Filt Rate 21; Glucose 127 mg/dL (65-110); Potassium 4.2 mmol/L (3.4-5.0); Sodium 142 mmol/L (137-145)
--- NOTE | 2022-12-22 09:57 | ED.SOB ---
HPI - SOB/Dyspnea General Chief Complaint: Shortness of Breath/Dyspnea Stated Complaint: dyspnea Time Seen by Provider: 12/22/22 08:29 History of Present Illness HPI Narrative: Patient is a 77-year-old female who presents to the ER with sudden onset shortness of breath. Began this morning when waking up. Patient found to be hypoxic to 89% for EMS. Placed on 2 L nasal cannula. She is not chronically O2 dependent. She has history of CHF. Reports compliance with home meds. Denies any new swelling or weight gain. Patient feels improved with sitting up. Related Data Home Medications Medication Instructions Recorded Confirmed asenapine maleate 5 mg sublingual 5 mg sublingual Q12H 01/04/20 12/22/22 tablet (Saphris) escitalopram oxalate 5 mg tablet 5 mg PO DAILY 08/21/21 12/22/22 rosuvastatin 20 mg tablet 20 mg PO QHS 08/21/21 12/22/22 trazodone 100 mg tablet 300 mg PO HS 08/21/21 12/22/22 glucagon HCl 1 mg solution for 1 mg subcut Q20M PRN Hypoglycemia 02/13/22 12/22/22 injection (Glucagon (HCl) Emergency Kit) sodium chloride 0.65 % nasal spray 1 spray intranasal BID PRN Dry 02/13/22 12/22/22 aerosol (Saline Mist) Nasal Passages insulin glargine 100 unit/mL (3 9 unit subcut QHS 05/17/22 12/22/22 mL) subcutaneous pen (Lantus Solostar U-100 Insulin) furosemide 40 mg tablet 40 mg PO DAILY 07/18/22 12/22/22 hydroxyzine HCl 25 mg tablet 25 mg PO Q8H PRN Itching 08/25/22 12/22/22 acetaminophen 500 mg tablet 1,000 mg PO BID PRN Pain 09/14/22 12/22/22 ferrous sulfate 325 mg (65 mg 325 mg PO DAILY 12/22/22 12/22/22 iron) tablet gabapentin 600 mg tablet 600 mg PO TID 12/22/22 12/22/22 insulin lispro 100 unit/mL 7 unit subcut TIDWM 12/22/22 12/22/22 subcutaneous pen (Humalog KwikPen (U-100) Insulin) insulin lispro 100 unit/mL See Rx Instructions .Route .COMPLEX 12/22/22 12/22/22 subcutaneous pen (Humalog KwikPen (U-100) Insulin) levothyroxine 137 mcg capsule 125 mcg PO DAILY 12/22/22 12/22/22 pantoprazole 40 mg tablet,delayed 40 mg PO QAM 12/22/22 12/22/22 release propranolol 10 mg tablet 10 mg PO Q12H 12/22/22 12/22/22 Allergies Allergy/AdvReac Type Severity Reaction Status Date / Time alendronate sodium Allergy Unknown Verified 12/22/22 17:41 amantadine Allergy Unknown Verified 12/22/22 17:41 benztropine Allergy Unknown Verified 12/22/22 17:42 chlorpromazine Allergy Unknown Verified 12/22/22 17:42 levofloxacin Allergy Unknown Verified 12/22/22 17:42 Macrolide Antibiotics Allergy Unknown Verified 12/22/22 17:43 mirtazapine Allergy Unknown Verified 12/22/22 17:43 Quinolones Allergy Unknown Verified 12/22/22 17:44 topiramate Allergy Unknown Verified 12/22/22 17:44 Review of Systems Review of Systems: All systems reviewed & are unremarkable except as noted in HPI and below Constitutional: Constitutional: Denies chills, Denies fatigue and Denies fever(s) ENT: Denies nasal congestion and Denies sore throat Cardiovascular: Cardiovascular: Denies chest pain, Denies rapid heart rate and Denies radiating jaw, neck or arm pain Respiratory: Respiratory: Denies cough, Reports dyspnea and Denies wheezing Gastrointestinal: Gastrointestinal: Denies abdominal pain and Denies vomiting [facility] Past Medical History Medical History (Updated 12/22/22 @ 18:18 by Charles Daniel MD) Acute on chronic anemia Acute on chronic diastolic heart failure Acute spont intraparenchymal hemorrhage assoc w/ hypertension Anemia in chronic kidney disease (CKD) Anxiety Aortic stenosis Moderate on echocardiogram in November 2021. Arthritis Asthma Bipolar disorder Bradycardia, sinus Cerebrovascular accident Chronic kidney disease, stage 4 (severe) Chronic obstructive pulmonary disease PFTs 06/28/2021: Moderate obstructive abnormality, moderate decreased diffusion capacity. 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 COPD (chronic obstructive pulmonary disease) CVA (cerebrovascular accident) (~12/2019)
[2022-12-22 10:12] LABS: Hematocrit 20.4 % (37.0-47.0); Hemoglobin 6.1 g/dL (12.0-15.0)
[2022-12-22 10:15] LABS: Anisocytosis 2+ (NORMAL); Hypochromasia 1+ (NORMAL); Platelet Estimate Decreased (Adequate); Schistocytes None Seen (NORMAL); Stomatocytes 2+ (NORMAL)
--- NOTE | 2022-12-22 15:00 | PM.IMHP ---
H&P: HPI History of Present Illness Date/Time: 12/22/22 15:00 Chief Complaint: Shortness of breath. Narrative: This is a 77-year-old female with history of stroke, chronic obstructive pulmonary disease, hypertension, hyperlipidemia, cirrhosis secondary to fatty liver disease with history of esophageal varices, hepatic encephalopathy, chronic kidney disease, type 2 diabetes mellitus, hypothyroidism, diastolic congestive heart failure, and anemia who presented to the emergency department for evaluation of shortness of breath. She is well known to the hospitalist service with multiple recent admissions for acute on chronic anemia and in fact she was just discharged from the hospital on 12/16/2022 after several day stay in which she was treated for acute on chronic anemia and CHF exacerbation. She felt pretty good when she was discharged however she has started to feel increasingly short of breath over the past 24 hours. She slept poorly last night due to orthopnea and today she was increasingly dyspneic and EMS was summoned. On their arrival she was hypoxic with an SpO2 of 89%, she is currently on 2 L nasal cannula. In the ED she was once again found to have acute on chronic anemia with a hemoglobin and hematocrit of 6.1 and 20.4% respectively. Chest x-ray also shows a small left pleural effusion with mild bibasilar pulmonary edema. She is being admitted in this setting for blood transfusion and diuresis. She denies fever, chills, sweats, cold and flu symptoms, chest pain, pleuritic pain, palpitations, syncope, near syncope, cough, nausea, vomiting, diarrhea, hematemesis, melena, and hematochezia. Review of Systems Review of Systems: Twelve systems were reviewed and are negative except for as per HPI. [facility] Past Medical History Medical History (Updated 12/22/22 @ 21:52 by Destiny Bender PA-C) Acute on chronic anemia Acute on chronic diastolic heart failure Acute spont intraparenchymal hemorrhage assoc w/ hypertension Anemia in chronic kidney disease (CKD) Anxiety Aortic stenosis Moderate on echocardiogram in November 2021. Arthritis Asthma Bipolar disorder Cerebrovascular accident Chronic kidney disease, stage 4 (severe) Chronic obstructive pulmonary disease PFTs 06/28/2021: Moderate obstructive abnormality, moderate decreased diffusion capacity. 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 Moreno History of partial hysterectomy History of thyroidectomy History of tonsillectomy Family History Family History Sibling Multiple sclerosis Father Acute myocardial infarction, Onset Age: 79 Cerebrovascular accident, Onset Age: 79 Mother Dementia Sibling Acute myocardial infarction, Onset Age: 65 Son Diabetes mellitus Other Depression Family history of arthritis Family history of elevated blood lipids Family history of thyroid disease Hyper
[2022-12-22] MEDS: SODIUM CHLORIDE 0.9% IV 250 ML 30 ML IV CONT (15:06)
[2022-12-22] MEDS: TUBING, BLOOD PLUM PUMP TUBING 1 EACH XX (15:06)
[2022-12-22] MEDS: SODIUM CHLORIDE 0.9% IV 250 ML 30 ML (17:58)
--- NOTE | 2022-12-22 19:52 | ADMGEN ---
This patient, Nisha Sigala, was admitted to [facility] at . Patient/family oriented to hospital policies and general routines including ID bracelet, bed and alarms, visiting hours, pain management, procedures, bathroom and other care routines, personal items, smoking policy, room service/diet, and visiting hours. Information on how to activate the Rapid Response Team has been discussed. Patient/Family are encouraged to report perceived risks to care and to ask questions if they do not understand what they are told or what they should do.
[2022-12-22 22:02] LABS: Hematocrit 26.6 % (37.0-47.0); Hemoglobin 8.3 g/dL (12.0-15.0); Mean Corpuscular HGB Conc 31.2 g/dl (32-36); Mean Corpuscular Hemoglobin 29.4 pg (26-34); Mean Corpuscular Volume 94.3 fl (80-100); Mean Platelet Volume 9.9 fl (7.4-10.4); Platelet Count Result 110 k/mm3 (150-375); Red Blood Count 2.82 M/mm3 (4.2-5.4); Red Cell Distribution Width 21.3 % (11.5-14.5); White Blood Count 6.1 K/mm3 (4.5-10.0)
[2022-12-22] MEDS: ACETAMINOPHEN 325 MG TABLET 650 MG PO (22:03)
[2022-12-22] MEDS: FUROSEMIDE INJ 40 MG/4 ML VIAL IV PUSH (22:03)
[2022-12-22] MEDS: INSULIN GLARGINE (*BKC) 100 UNITS/ML 9 UNITS SUB-Q (23:09)
[2022-12-22] MEDS: PROPRANOLOL HCL 10 MG TABLET PO (23:10)
[2022-12-23] VITALS (11 sets, daily range): BP systolic 105–156; BP diastolic 46–86; PULSE 51–56; RESP 16–18; TEMP 36.6–36.9; O2SAT 92–96
[2022-12-23 06:15] LABS: Hematocrit 25.9 % (37.0-47.0); Hemoglobin 8.2 g/dL (12.0-15.0); Mean Corpuscular HGB Conc 31.7 g/dl (32-36); Mean Corpuscular Hemoglobin 29.2 pg (26-34); Mean Corpuscular Volume 92.2 fl (80-100); Platelet Count Result 110 k/mm3 (150-375); Red Blood Count 2.81 M/mm3 (4.2-5.4); Red Cell Distribution Width 21.6 % (11.5-14.5); White Blood Count 6.4 K/mm3 (4.5-10.0)
[2022-12-23 06:18] LABS: Anion Gap 6 mmol/L (8-16); Blood Urea Nitrogen 32 mg/dL (7-17); Calcium 7.9 mg/dL (8.4-10.2); Carbon Dioxide 24 mmol/L (22-30); Chloride 104 mmol/L (98-107); Estimated CRCL calculation 23 ml/min; Estimated Glomerular Filt Rate 23; Glucose 92 mg/dL (65-110); Sodium 134 mmol/L (137-145)
[2022-12-23] MEDS: amLODIPine BESYLATE 5 MG TABLET 10 MG PO (08:18)
[2022-12-23] MEDS: ESCITALOPRAM OXALATE 5 MG TABLET PO (08:18)
[2022-12-23] MEDS: LEVOTHYROXINE SODIUM 125 MCG TABLET PO (08:18)
[2022-12-23] MEDS: lamoTRIgine 50 MG TABLET 150 MG PO ×2 (08:19→20:59)
[2022-12-23] MEDS: GABAPENTIN 300 MG CAPSULE 600 MG PO ×3 (08:19→17:24)
[2022-12-23] MEDS: FUROSEMIDE INJ 40 MG/4 ML VIAL IV PUSH (08:19)
[2022-12-23] MEDS: PANTOPRAZOLE 40 MG TABLET PO (08:19)
[2022-12-23] MEDS: LACTULOSE 20 GM/30 ML UDC PO ×3 (08:19→17:24)
[2022-12-23] MEDS: FERROUS SULFATE 324 MG TABLET PO (08:19)
[2022-12-23] MEDS: PROPRANOLOL HCL 10 MG TABLET PO ×2 (08:19→21:00)
[2022-12-23 08:28] LABS: Glucose Point of Care 91 mg/dl (65-105)
[2022-12-23] MEDS: INSULIN ASPART (*BKC) 100 UNITS/ML 7 UNITS SUB-Q ×2 (09:00→17:24)
[2022-12-23] MEDS: UMECLIDINIUM/VILANTEROL 62.5-25 MCG ELLIPTA 1 PUFF INHALATION (11:02)
[2022-12-23 12:35] LABS: Glucose Point of Care 67 mg/dl (65-105)
[2022-12-23 13:02] LABS: Glucose Point of Care 97 mg/dl (65-105)
--- NOTE | 2022-12-23 15:33 | PC.NURSE ---
This patient, Nisha Sigala, was transferred to [[id number] ] on 12/23/22 at 1533. Personal belongings sent with patient. Report given to [ ISRA Rob @ [id number]]. Appropriate documentation sent with patient.
[2022-12-23 17:22] LABS: Glucose Point of Care 102 mg/dl (65-105)
--- NOTE | 2022-12-23 18:09 | PM.IMPN ---
Progress Note: A&P Assessment and Plan (1) Hypoxia: Code(s): R09.02 - Hypoxemia Status: Acute (2) Acute on chronic anemia: Code(s): D64.9 - Anemia, unspecified Status: Acute (3) Acute on chronic diastolic heart failure: Code(s): I50.33 - Acute on chronic diastolic (congestive) heart failure Status: Acute (4) Type 2 diabetes mellitus: Code(s): E11.9 - Type 2 diabetes mellitus without complications Status: Chronic (5) Chronic obstructive pulmonary disease: Code(s): J44.9 - Chronic obstructive pulmonary disease, unspecified Status: Acute (6) Hypertension: Code(s): I10 - Essential (primary) hypertension Status: Acute (7) Hyperlipidemia: Code(s): E78.5 - Hyperlipidemia, unspecified Status: Acute (8) Hypothyroidism: Qualifiers: Hypothyroidism type: acquired Qualified Code(s): E03.9 - Hypothyroidism, unspecified Code(s): E03.9 - Hypothyroidism, unspecified Status: Acute (9) 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: Code(s): K75.81 - Nonalcoholic steatohepatitis (ZIEGLER); K74.60 - Unspecified cirrhosis of liver Status: Chronic (10) Chronic kidney disease, stage 4 (severe): Code(s): N18.4 - Chronic kidney disease, stage 4 (severe) Status: Acute (11) Bipolar disorder: Qualifiers: Active/Remission status: in full remission Most recent bipolar episode type: most recent episode unspecified type Qualified Code(s): F31.70 - Bipolar disorder, currently in remission, most recent episode unspecified Code(s): F31.9 - Bipolar disorder, unspecified Status: Acute (12) Aortic stenosis: Qualifiers: Cardiac valve disease etiology: nonrheumatic Qualified Code(s): I35.0 - Nonrheumatic aortic (valve) stenosis Code(s): I35.0 - Nonrheumatic aortic (valve) stenosis Status: Chronic Plan he patient presented to the ED today for evaluation of shortness of breath over the last several days, worse since last night. She was once again found to have a hemoglobin below 7 and she will receive 2 units of packed red blood cells. Chest x-ray shows a small left pleural effusion and mild pulmonary edema thus her volume status will need to be monitored closely while transfusing. She will receive Lasix 40 mg IV between units of blood to help with the excess volume. Her hypoxia is due to a combination of CHF and anemia and will be weaned as tolerated. She will have had a total of 15 units of packed red blood cells transfused since July 2022. She has had extensive workups during prior hospitalizations and her case and anemia are quite complex. Dr. Hartman will be consulted for his input and hopefully he will have some ideas to help keep her out of the hospital. Her blood pressures are stable in the 140s to 150 systolic. She is not decompensated with regards to a cirrhosis standpoint. Her other chronic conditions appear stable. Continue basal insulin. Initiate sliding scale insulin, Accu-Cheks, and hypoglycemic protocol. Her home medications will be reviewed and resumed as appropriate. 12/23/22: Feels much better. Still with mild edema. Hgb better at 8.2. Cr stable and tolerating the Lasix. Echo reviewed. Unclear how critical her is but cardiology note (11/09) did not feel it was critical. Continue diuretics. Start PT/OT. Monitor HH. EGD does show she has varices so consider occult GI bleeding. Check stool guaiac. Continue Inderal. Consider GI consult if this seems to be GI blood loss. Monitor HH. If HH remains stable, then okay for discharge Subjective Date/time seen: 12/23/22 18:09 Interval history: 77yo female with dCHF, COPD, HTN and anemia here for shortness of breath. Patient feels better. SOB better. No CP. No n/v. Edema improved. Voiding well. Has never required paracentesis. Not on home O2. no longer smokes. Exam Narrative: AF 139/48 53 18 95% 2L Gen - NARD Marialuisa
--- NOTE | 2022-12-23 18:30 | PDONCCN ---
HPI - Date of Consult Date/Time: 12/23/22 18:30 Requesting Physician: Raffaele Hogue MD Primary Care Provider: Domingo Alcocer, DO - Consult Narrative Reason for consult: Normocytic anemia Narrative: Nisha Sigala is a 77 year old female with history of chronic kidney stage 3 disease, stroke, COPD and type 2 diabetes with liver cirrhosis came into the hospital with increasing shortness of breath. She is a [facility] assisted living resident. She has been getting Procrit [id number] units on a biweekly basis in my office and seems like her last injection was on December 02. She had EGD done on September 02 that showed nonbleeding esophageal varices. Colonoscopy from January 2019 showed diverticulosis without bleeding. She denies any diarrhea constipation. Denies any melena hematochezia. Labs on admission showed hemoglobin of 6.1. She received 2 units of packed red blood cell. She is feeling somewhat better today after blood transfusion. Review of Systems - Review of Systems All systems reviewed & are unremarkable except as noted in HPI and [facility] Medical History: Medical History (Last Updated 12/22/22 @ 21:52 by Destiny Bender PA-C) Acute on chronic anemia Acute on chronic diastolic heart failure Acute spont intraparenchymal hemorrhage assoc w/ hypertension Anemia in chronic kidney disease (CKD) Anxiety Aortic stenosis Moderate on echocardiogram in November 2021. Arthritis Asthma Bipolar disorder Cerebrovascular accident Chronic kidney disease, stage 4 (severe) Chronic obstructive pulmonary disease PFTs 06/28/2021: Moderate obstructive abnormality, moderate decreased diffusion capacity. 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 Moreno History of partial hysterectomy History of thyroidectomy History of tonsillectomy Family History: Family History (Last Reviewed 12/22/22 @ 21:52 by Destiny Bender PA-C) Sibling Multiple sclerosis Father Acute myocardial infarction, Onset Age: 79 Cerebrovascular accident, Onset Age: 79 Mother Dementia Sibling Acute myocardial infarction, Onset Age: 65 Son Diabetes mellitus Other Depression Family history of arthritis Family history of elevated blood lipids Family history of thyroid disease Hypertension - Social History Social History: Social History (Last Updated 12/22/22 @ 21:52 by Destiny Bender PA-C) Alcohol Use: Alcohol intake: never Substance Use: Substance use: never Substance use type: does not use Others: Spiritual care concerns: No Spiritual care concerns comment: religion Smoking Status: Smoking status: Former smoker Tobacco type: cigarettes Second hand tobacco smoke exposure: No Smoking end date: 11/30/13 Approximate Smoking End Date: 2016 Smoking Pack-years: Smoking packs per day: 2 Smoking cigarettes per
[2022-12-23 19:19] LABS: Hematocrit 27.8 % (37.0-47.0); Hemoglobin 8.6 g/dL (12.0-15.0)
[2022-12-23] MEDS: EPOETIN ALFA-EPBX 20,000 UNITS/ML VIAL 20000 UNITS SUB-Q (20:57)
[2022-12-23] MEDS: traZODone HCL 50 MG TABLET 300 MG PO (20:59)
[2022-12-23] MEDS: MELATONIN 3 MG TABLET PO (20:59)
[2022-12-23] MEDS: ROSUVASTATIN 10 MG TABLET 20 MG PO (20:59)
[2022-12-23] MEDS: INSULIN GLARGINE (*BKC) 100 UNITS/ML 9 UNITS SUB-Q (21:00)
[2022-12-23 22:00] LABS: Glucose Point of Care 104 mg/dl (65-105)
[2022-12-24 06:00] VITALS: BP 133/43; PULSE 47; RESP 20; TEMP 35.9; O2SAT 92
[2022-12-24 06:27] LABS: Basophils Absolute Auto 0.1 K/mm3 (0.0-0.1); Basophils Percent Auto 1.1 % (0.2-1.2); Eosinophils Absolute Auto 0.2 K/mm3 (0-0.3); Eosinophils Percent Auto 4.9 % (0-4.4); Hematocrit 27.8 % (37.0-47.0); Hemoglobin 8.5 g/dL (12.0-15.0); Immature Granulocyte Absolute 0.04 K/mm3 (0.00-0.031); Immature Granulocyte Percent A 0.8 % (0-0.5); Lymphocytes Percent Auto 23.4 % (18.3-44.2); Mean Corpuscular HGB Conc 30.6 g/dl (32-36); Mean Corpuscular Hemoglobin 29.2 pg (26-34); Mean Corpuscular Volume 95.5 fl (80-100); Monocytes Absolute Auto 0.3 K/mm3 (0.1-0.6); Monocytes Percent Auto 5.5 % (2.6-8.5); Neutrophils Percent Auto 64.3 % (45.5-73.1); Platelet Count Result 102 k/mm3 (150-375); Red Blood Count 2.91 M/mm3 (4.2-5.4); Red Cell Distribution Width 21.6 % (11.5-14.5); White Blood Count 4.7 K/mm3 (4.5-10.0)
[2022-12-24 06:34] LABS: Alanine Aminotransferase 20 U/L (6-35); Albumin Level 3.5 g/dL (3.5-5.1); Alkaline Phosphatase 284 U/L (38-126); Anion Gap 6 mmol/L (8-16); Aspartate Amino Transferase 41 U/L (14-36); Bilirubin,Total 0.6 mg/dL (0.2-1.3); Blood Urea Nitrogen 36 mg/dL (7-17); Calcium 7.9 mg/dL (8.4-10.2); Carbon Dioxide 24 mmol/L (22-30); Chloride 107 mmol/L (98-107); Estimated CRCL calculation 21 ml/min; Estimated Glomerular Filt Rate 21; Glucose 84 mg/dL (65-110); Magnesium 2.4 mg/dL (1.6-2.3); Phosphorus 3.8 mg/dL (2.5-4.5); Potassium 4.1 mmol/L (3.4-5.0); Sodium 137 mmol/L (137-145)
[2022-12-24] MEDS: LEVOTHYROXINE SODIUM 125 MCG TABLET PO (06:55)
[2022-12-24 08:29] LABS: Glucose Point of Care 73 mg/dl (65-105)
--- NOTE | 2022-12-24 08:37 | PM.IMPN ---
Progress Note: A&P Assessment and Plan (1) Hypoxia: Code(s): R09.02 - Hypoxemia Status: Acute Assessment and Plan: Wean O2 as able, suspect secondary to anemia (2) Acute on chronic anemia: Code(s): D64.9 - Anemia, unspecified Status: Acute Assessment and Plan: Unsure of etiology, appreciate oncology consultation, GI consult pending Oncology recommended continuing iron supplementation as well as Procrit injections (3) Acute on chronic diastolic heart failure: Code(s): I50.33 - Acute on chronic diastolic (congestive) heart failure Status: Acute (4) Type 2 diabetes mellitus: Code(s): E11.9 - Type 2 diabetes mellitus without complications Status: Chronic Assessment and Plan: Accu-Cheks with sliding scale insulin A1c is 6.3 (5) Chronic obstructive pulmonary disease: Code(s): J44.9 - Chronic obstructive pulmonary disease, unspecified Status: Acute Assessment and Plan: Stable (6) Hypertension: Code(s): I10 - Essential (primary) hypertension Status: Acute Assessment and Plan: Stable (7) Hyperlipidemia: Code(s): E78.5 - Hyperlipidemia, unspecified Status: Acute (8) Hypothyroidism: Qualifiers: Hypothyroidism type: acquired Qualified Code(s): E03.9 - Hypothyroidism, unspecified Code(s): E03.9 - Hypothyroidism, unspecified Status: Acute Assessment and Plan: Check TSH, continue home levothyroxine (9) 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: Code(s): K75.81 - Nonalcoholic steatohepatitis (ZIEGLER); K74.60 - Unspecified cirrhosis of liver Status: Chronic (10) Chronic kidney disease, stage 4 (severe): Code(s): N18.4 - Chronic kidney disease, stage 4 (severe) Status: Acute Assessment and Plan: Appears to be at baseline, creatinine 2.3 today (11) Bipolar disorder: Qualifiers: Active/Remission status: in full remission Most recent bipolar episode type: most recent episode unspecified type Qualified Code(s): F31.70 - Bipolar disorder, currently in remission, most recent episode unspecified Code(s): F31.9 - Bipolar disorder, unspecified Status: Acute Assessment and Plan: Stable (12) Aortic stenosis: Qualifiers: Cardiac valve disease etiology: nonrheumatic Qualified Code(s): I35.0 - Nonrheumatic aortic (valve) stenosis Code(s): I35.0 - Nonrheumatic aortic (valve) stenosis Status: Chronic Assessment and Plan: Stable, appreciate cardiology consultation outpatient basis Continue diuresis Plan DVT prophylaxis with SCDs GI prophylaxis not indicated Code status DNR Subjective Date/time seen: 12/24/22 08:37 Interval history: 77yo female with dCHF, COPD, HTN and anemia here for shortness of breath. No overnight events noted. No chest pain. Still with a little short of breath, much improved. No nausea, vomiting or diarrhea. No fevers or chills. Not on home O2, on 2 L here today. Review of Systems Review of Systems: 12 point review of systems was assessed and was negative except as noted in the HPI Exam Narrative: General: No acute distress, alert and oriented per baseline HEENT: Atraumatic, normocephalic, mucous membranes moist CV: Regular rate and rhythm, S1, S2 Lungs: Diminished at bases, no wheeze Abdomen: Soft, nontender, nondistended Extremities: Normal to inspection Skin: No rashes noted, no lesions or wounds seen Psych: Euthymic, normal affect Objective Data Vital Signs Vital Signs: Vital Signs - 24 hr 12/23/22 14:02 12/23/22 15:47 12/23/22 16:05 Temperature 98.5 F 98.5 F Pulse Rate 54 L 53 L Respiratory Rate 18 18 Blood Pressure 132/50 L 139/48 L Pulse Oximetry 94 94 95 Oxygen Delivery Nasal Cannula Oxygen Flow Rate 2 12/23/22 21:00 12/23/22 20:00 12/23/22 22:00 Temperature 97.9 F Pulse Rate 56 L 51 L Respiratory Rat
[2022-12-24] MEDS: amLODIPine BESYLATE 5 MG TABLET 10 MG PO (09:16)
[2022-12-24] MEDS: FERROUS SULFATE 324 MG TABLET PO (09:16)
[2022-12-24] MEDS: ESCITALOPRAM OXALATE 5 MG TABLET PO (09:18)
[2022-12-24] MEDS: lamoTRIgine 50 MG TABLET 150 MG PO ×2 (09:18→21:06)
[2022-12-24] MEDS: FUROSEMIDE 40 MG TABLET PO (09:18)
[2022-12-24] MEDS: LACTULOSE 20 GM/30 ML UDC PO (09:18)
[2022-12-24] MEDS: GABAPENTIN 300 MG CAPSULE 600 MG PO ×3 (09:18→17:25)
[2022-12-24] MEDS: PANTOPRAZOLE 40 MG TABLET PO (09:19)
[2022-12-24 09:23] VITALS: PULSE 44
[2022-12-24] MEDS: UMECLIDINIUM/VILANTEROL 62.5-25 MCG ELLIPTA 1 PUFF INHALATION (10:42)
[2022-12-24 10:43] VITALS: O2SAT 92
[2022-12-24 12:11] LABS: Glucose Point of Care 113 mg/dl (65-105)
[2022-12-24 16:03] VITALS: BP 140/52; PULSE 51; RESP 18; TEMP 36.2; O2SAT 95
[2022-12-24 17:18] LABS: Glucose Point of Care 123 mg/dl (65-105)
[2022-12-24 20:32] LABS: Glucose Point of Care 209 mg/dl (65-105)
[2022-12-24] MEDS: INSULIN GLARGINE (*BKC) 100 UNITS/ML 9 UNITS SUB-Q (21:02)
[2022-12-24] MEDS: traZODone HCL 50 MG TABLET 300 MG PO (21:05)
[2022-12-24 21:06] VITALS: PULSE 50
[2022-12-24] MEDS: ROSUVASTATIN 10 MG TABLET 20 MG PO (21:06)
[2022-12-24] MEDS: MELATONIN 3 MG TABLET PO (21:06)
[2022-12-24 22:00] VITALS: BP 119/39; PULSE 51; RESP 20; TEMP 36.2; O2SAT 92
[2022-12-25] VITALS (8 sets, daily range): BP systolic 118–126; BP diastolic 38–41; PULSE 49–64; RESP 16–22; TEMP 36.1–36.3; O2SAT 92–94
[2022-12-25] MEDS: LEVOTHYROXINE SODIUM 125 MCG TABLET PO (06:04)
[2022-12-25 06:37] LABS: Immature Reticulocyte Fraction 29.6 % (3.0-15.9); Reticulocyte Percent 7.65 % (0.7-4.3); Reticulocytes Absolute 0.21 B/L (32.2-175.7)
--- NOTE | 2022-12-25 06:50 | WPDGICN ---
Assessment and Plan Assessment and plan (1) Acute on chronic anemia: Code(s): D64.9 - Anemia, unspecified Status: Acute Assessment and Plan: another sudden drop her hemoglobin from 8.4 to 6.1/70. . Again this is without any evidence of bleeding or significant change in bowel habits. She has been under the care of Hematology for which she is being treated and monitored very closely, receiving iron supplements and Procrit. Workup from a gastrointestinal standpoint has always been negative except that her last attempted colonoscopy he has or unsuccessful because of marked sigmoid colon fixation. I told her that we will order a Cologuard test for her. .We had, at 1 point ordered a virtual colonoscopy at [facility] but for some reason or other was not done A barium enema was done about 1 year ago because of the incomplete colonoscopy in that study was unremarkable. We had ordered a capsule study of the small bowel last year but that also was not done and I will follow up on that. It will need to be done as an outpatient hemoccult is pending. 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 PFTs had shown moderate obstructive abnormality and decreased diffusion capacity. (4) Chronic kidney disease, stage 4 (severe): Code(s): N18.4 - Chronic kidney disease, stage 4 (severe) Status: Acute Assessment and Plan: This would explain the chronic element of her anemia but of course not the sudden drops in her blood counts (5) Bone marrow dyserythropoiesis: Code(s): R71.8 - Other abnormality of red blood cells Status: Acute Assessment and Plan: reticulocyte count done a little over 1 year ago was negligible, 0.1. I will recheck. This would certainly suggest poor bone marrow response. She does also have an increase in her absolute immature granulocytes she is under the excellent care of . GI Consult Note Consult date/time: 12/25/22 06:50 HPI: Nisha Sigala is a 77 year old female who has been admitted several times because of symptomatic anemia. She often has a precipitous drop in her hemoglobin. She has never had overt evidence of gastrointestinal bleeding. She denies seeing black stools unless she is on iron. She has never had red blood in her stools. She had a complete colonoscopy about 6 years ago which was negative except for diverticulosis. Attempted colonoscopy by myself and on 2 separate occasions was limited because of sigmoid fixation. We have referred her for virtual colonoscopy to [facility] but she does not recall ever having gone there. She is under the care of Hematology receives bone marrow stimulating medications and iron infusions. She actually never has had microcytic indices, in fact they have often been macrocytic. I recall That when she was hospitalized in August with the sudden drop in her blood counts that her Hemoccult was negative. month or 2 later it was positive. She denies any gastrointestinal symptoms such as nausea vomiting or anorexia. She denies weight loss. She denies heartburn or indigestion. She that she had an EGD just a few weeks ago which was unremarkable except she is known to have very small esophageal varices which never showed any evidence of having bled. She has cirrhosis thought to be due to ZIEGLER. Review of Systems Review of System
--- NOTE | 2022-12-25 07:57 | PM.IMPN ---
Progress Note: A&P Assessment and Plan (1) Hypoxia: Code(s): R09.02 - Hypoxemia Status: Acute Assessment and Plan: Resolved, stable on room air Home O2 eval pending (2) Acute on chronic anemia: Code(s): D64.9 - Anemia, unspecified Status: Acute Assessment and Plan: Unsure of etiology, appreciate oncology consultation, GI consult appreciated, further management pending outpatient Oncology recommended continuing iron supplementation as well as Procrit injections (3) Acute on chronic diastolic heart failure: Code(s): I50.33 - Acute on chronic diastolic (congestive) heart failure Status: Acute Assessment and Plan: appears to be back to baseline (4) Type 2 diabetes mellitus: Code(s): E11.9 - Type 2 diabetes mellitus without complications Status: Chronic Assessment and Plan: Accu-Cheks with sliding scale insulin A1c is 6.3 (5) Chronic obstructive pulmonary disease: Code(s): J44.9 - Chronic obstructive pulmonary disease, unspecified Status: Acute Assessment and Plan: Stable (6) Hypertension: Code(s): I10 - Essential (primary) hypertension Status: Acute Assessment and Plan: Stable (7) Hyperlipidemia: Code(s): E78.5 - Hyperlipidemia, unspecified Status: Acute Assessment and Plan: cont statin (8) Hypothyroidism: Qualifiers: Hypothyroidism type: acquired Qualified Code(s): E03.9 - Hypothyroidism, unspecified Code(s): E03.9 - Hypothyroidism, unspecified Status: Acute Assessment and Plan: TSH 8.9, increased levothyroxine to 150 mcg from 125 mcg (9) 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9 - Bipolar disorder, unspecified Status: Acute Assessment and Plan: Stable (12) Aortic stenosis: Qualifiers: Cardiac valve disease etiology: nonrheumatic Qualified Code(s): I35.0 - Nonrheumatic aortic (valve) stenosis Code(s): I35.0 - Nonrheumatic aortic (valve) stenosis Status: Chronic Assessment and Plan: Stable, appreciate cardiology consultation on outpatient basis Plan DVT prophylaxis with SCDs GI prophylaxis with PPI Code status DNR Subjective Date/time seen: 12/25/22 07:57 Interval history: 77yo female with dCHF, COPD, HTN and anemia here for shortness of breath. No overnight events noted. No chest pain. No nausea, vomiting or diarrhea. No fevers or chills. Exam Narrative: General: No acute distress, alert and oriented per baseline HEENT: Atraumatic, normocephalic, mucous membranes moist CV: Regular rate and rhythm, S1, S2 Lungs: Diminished at bases, no wheeze Abdomen: Soft, nontender, nondistended Extremities: Normal to inspection Skin: No rashes noted, no lesions or wounds seen Psych: Euthymic, normal affect Objective Data Vital Signs Vital Signs: Vital Signs - 24 hr 12/24/22 09:23 12/24/22 08:00 12/24/22 10:43 Temperature Pulse Rate 44 L Respiratory Rate Blood Pressure Pulse Oximetry 92 Oxygen Delivery Room Air Nasal Cannula Oxygen Flow Rate 2 12/24/22 11:07 12/24/22 11:30 12/24/22 16:03 Temperature 97.2 F L Pulse Rate 51 L Respiratory Rate 18 Blood Pressure 140/52 L Pulse Oximetry 95 Ox
[2022-12-25] MEDS: UMECLIDINIUM/VILANTEROL 62.5-25 MCG ELLIPTA 1 PUFF INHALATION (08:10)
[2022-12-25 08:26] LABS: Glucose Point of Care 84 mg/dl (65-105)
[2022-12-25 08:56] LABS: Basophils Percent Auto 0.7 % (0.2-1.2); Eosinophils Absolute Auto 0.2 K/mm3 (0-0.3); Eosinophils Percent Auto 4.5 % (0-4.4); Hematocrit 28.8 % (37.0-47.0); Hemoglobin 8.9 g/dL (12.0-15.0); Immature Granulocyte Absolute 0.03 K/mm3 (0.00-0.031); Immature Granulocyte Percent A 0.7 % (0-0.5); Immature Platelet Fraction Pct 4.4 % (0.9-11.2); Lymphocytes Absolute Auto 0.83 K/mm3 (0.9-3.2); Lymphocytes Percent Auto 19.8 % (18.3-44.2); Mean Corpuscular HGB Conc 30.9 g/dl (32-36); Mean Corpuscular Hemoglobin 29.7 pg (26-34); Mean Platelet Volume 10.8 fl (7.4-10.4); Monocytes Absolute Auto 0.2 K/mm3 (0.1-0.6); Monocytes Percent Auto 4.8 % (2.6-8.5); Neutrophils Absolute Auto 2.9 K/mm3 (1.3-6.7); Neutrophils Percent Auto 69.5 % (45.5-73.1); Platelet Count Result 106 k/mm3 (150-375); Red Cell Distribution Width 20.9 % (11.5-14.5); White Blood Count 4.2 K/mm3 (4.5-10.0)
[2022-12-25 09:07] LABS: Alanine Aminotransferase 19 U/L (6-35); Albumin Level 3.2 g/dL (3.5-5.1); Alkaline Phosphatase 272 U/L (38-126); Anion Gap 5 mmol/L (8-16); Aspartate Amino Transferase 38 U/L (14-36); Bilirubin,Total 0.5 mg/dL (0.2-1.3); Blood Urea Nitrogen 34 mg/dL (7-17); Carbon Dioxide 24 mmol/L (22-30); Chloride 110 mmol/L (98-107); Estimated CRCL calculation 22 ml/min; Estimated Glomerular Filt Rate 21; Glucose 85 mg/dL (65-110); Potassium 4.5 mmol/L (3.4-5.0); Sodium 139 mmol/L (137-145)
--- NOTE | 2022-12-25 09:52 | PCRCNOTE ---
HOME O2 EVAL DONE, NO HOME O2 NEEDED
[2022-12-25] MEDS: FUROSEMIDE 40 MG TABLET PO (10:20)
[2022-12-25] MEDS: FERROUS SULFATE 324 MG TABLET PO (10:20)
[2022-12-25] MEDS: ESCITALOPRAM OXALATE 5 MG TABLET PO (10:20)
[2022-12-25] MEDS: GABAPENTIN 300 MG CAPSULE 600 MG PO ×2 (10:20→13:28)
[2022-12-25] MEDS: amLODIPine BESYLATE 5 MG TABLET 10 MG PO (10:20)
[2022-12-25] MEDS: PANTOPRAZOLE 40 MG TABLET PO (10:21)
[2022-12-25] MEDS: lamoTRIgine 50 MG TABLET 150 MG PO (10:21)
[2022-12-25 12:26] LABS: Glucose Point of Care 97 mg/dl (65-105)
--- NOTE | 2022-12-25 12:39 | PM.DS ---
DS: Admitting Diagnosis Discharge Date 12/25/22 Admitting Diagnosis sob/anemia DS: Discharge Diagnosis Discharge Diagnosis (1) Hypoxia: Code(s): R09.02 - Hypoxemia Status: Acute Assessment and Plan: Resolved, stable on room air Home O2 eval pending (2) Acute on chronic anemia: Code(s): D64.9 - Anemia, unspecified Status: Acute Assessment and Plan: Unsure of etiology, appreciate oncology consultation, GI consult appreciated, further management pending outpatient Oncology recommended continuing iron supplementation as well as Procrit injections (3) Acute on chronic diastolic heart failure: Code(s): I50.33 - Acute on chronic diastolic (congestive) heart failure Status: Acute Assessment and Plan: appears to be back to baseline (4) Type 2 diabetes mellitus: Code(s): E11.9 - Type 2 diabetes mellitus without complications Status: Chronic Assessment and Plan: Accu-Cheks with sliding scale insulin A1c is 6.3 (5) Chronic obstructive pulmonary disease: Code(s): J44.9 - Chronic obstructive pulmonary disease, unspecified Status: Acute Assessment and Plan: Stable (6) Hypertension: Code(s): I10 - Essential (primary) hypertension Status: Acute Assessment and Plan: Stable (7) Hyperlipidemia: Code(s): E78.5 - Hyperlipidemia, unspecified Status: Acute Assessment and Plan: cont statin (8) Hypothyroidism: Qualifiers: Hypothyroidism type: acquired Qualified Code(s): E03.9 - Hypothyroidism, unspecified Code(s): E03.9 - Hypothyroidism, unspecified Status: Acute Assessment and Plan: TSH 8.9, increased levothyroxine to 150 mcg from 125 mcg (9) 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9 - Bipolar disorder, unspecified Status: Acute Assessment and Plan: Stable (12) Aortic stenosis: Qualifiers: Cardiac valve disease etiology: nonrheumatic Qualified Code(s): I35.0 - Nonrheumatic aortic (valve) stenosis Code(s): I35.0 - Nonrheumatic aortic (valve) stenosis Status: Chronic Assessment and Plan: Stable, appreciate cardiology consultation on outpatient basis Plan DVT prophylaxis with SCDs GI prophylaxis with PPI Code status DNR DS: Summary Hospital Course Hospital Course: 77-year-old female with history of stroke, chronic obstructive pulmonary disease, hypertension, hyperlipidemia, cirrhosis secondary to fatty liver disease with history of esophageal varices, hepatic encephalopathy, chronic kidney disease, type 2 diabetes mellitus, hypothyroidism, diastolic congestive heart failure, and anemia who presented to the emergency department for evaluation of shortness of breath. She is well known to the hospitalist service with multiple recent admissions for acute on chronic anemia and in fact she was just discharged from the hospital on 12/16/2022 after several day stay in which she was treated for acute on chronic anemia and CHF exacerbation. She felt pretty good when she was discharged however she has started to feel increasingly short of breath over the past 24 hours. She slept poorly last night due to orthopnea and today she was increasingly dyspneic and EMS was summoned.? On their arrival sh
--- NOTE | 2022-12-25 13:00 | PC.NURSE ---
Patient off of unit to CT
[2022-12-25 17:23] LABS: Glucose Point of Care 95 mg/dl (65-105)
== END 2022-12-25 18:56 | DRG 291 ==
LOC: ANHED 08:50 → ANH3MEDSUR 15:18 → ANHCPC 17:00 → ANH3MEDSUR 12-23 15:34
PROVIDERS: Internal Medicine; Internal Medicine Gastroenterology; Physician Assistant; Admitting Provider Family Medicine; Emergency Provider Emergency Medicine; PCP Internal Medicine; Visit Provider Student in an Organized Health Care Education/Training Program
DX: I13.0 Hypertensive heart and chronic kidney disease with heart failure and stage 1 through stage 4 chronic kidney disease, or unspecified chronic kidney disease (principal); I50.33 Acute on chronic diastolic (congestive) heart failure; N18.4 Chronic kidney disease, stage 4 (severe); I85.10 Secondary esophageal varices without bleeding; D63.1 Anemia in chronic kidney disease; I35.0 Nonrheumatic aortic (valve) stenosis; K75.81 Nonalcoholic steatohepatitis (NASH); K74.60 Unspecified cirrhosis of liver; J44.9 Chronic obstructive pulmonary disease, unspecified; E11.42 Type 2 diabetes mellitus with diabetic polyneuropathy; E11.22 Type 2 diabetes mellitus with diabetic chronic kidney disease; E78.5 Hyperlipidemia, unspecified; K58.9 Irritable bowel syndrome, unspecified; K21.9 Gastro-esophageal reflux disease without esophagitis; K57.30 Diverticulosis of large intestine without perforation or abscess without bleeding; R09.02 Hypoxemia; M81.0 Age-related osteoporosis without current pathological fracture; M19.90 Unspecified osteoarthritis, unspecified site; F41.9 Anxiety disorder, unspecified; F31.9 Bipolar disorder, unspecified; Z79.4 Long term (current) use of insulin; Z86.010 Personal history of colon polyps; Z86.73 Personal history of transient ischemic attack (TIA), and cerebral infarction without residual deficits; Z87.891 Personal history of nicotine dependence
CPT/HCPCS: 36415; 36430; 70490; 71046; 71250; 80048; 80053; 82948; 83735; 84100; 84443; 85014; 85018; 85025; 85027; 85046; 85055; 86850; 86900; 86901; 86922; 93005; 94618; 94640; 96374; 96376; 97161; 97165; 99285; A9270; G0378; J1815; J1940; J7050; P9016; Q5105

== ENCOUNTER 2023-01-01 09:52 | Inpatient (IN) | payer OTHER, SELFPAY ==
[2023-01-01] VITALS (29 sets, daily range): BP systolic 117–170; BP diastolic 42–108; PULSE 41–87; RESP 14–23; TEMP 36.2–36.4; O2SAT 92–100
--- NOTE | ~2023-01-01 | US_ITS ---
EXAMINATION: US venous doppler [facility] DATE: 01/02/2023 19:31 INDICATION: Lower limb edema. TECHNIQUE: Grayscale ultrasound images without and with compression and Doppler ultrasound images of the left lower extremity veins were obtained. COMPARISON: Ultrasound 11/06/2022 FINDINGS: The visualized portions of left common femoral vein, profunda (deep) femoral vein, femoral vein, popl iteal vein, peroneal veins, posterior tibial veins, and greater saphenous vein outflow are patent. IMPRESSION: 1. No deep venous thrombosis. Reviewed, dictated and finalized at location A. D KEEPER
--- NOTE | ~2023-01-01 | XR_ITS ---
Portable chest x-ray Comparison: 12/22/2029 Clinical History: Shortness of breath Findings: There is probable mild interstitial pulmonary edema. Probable minimal left pleural effusio n. Cardiomediastinal silhouette is stable. Bones and soft tissues are unremarkable. Impression: Mild interstitial pulmonary edema and minimal left pleural effusion. Reviewed, dictated and finalized at [facility]. VATING MACHINE OPERATOR Impression: Mild interstitial pulmonary edema and minimal left pleural effusion.
--- NOTE | ~2023-01-01 | XR_ITS ---
EXAMINATION: XR foot RT min 3V DATE: 01/02/2023 16:45 INDICATION: Right foot distal bruising. TECHNIQUE: 4 views of right foot were obtained. COMPARISON: None. FINDINGS: Bone alignment is normal. There is an avulsion fracture of medial base of fourth middle pha lanx with 1 mm distraction. There is a nondisplaced intra-articular fracture of base of fifth proxima l phalanx. There is fragmentation of the distal articular surface of third metatarsal. There is an ol d healed fracture of diaphysis of third proximal phalanx. There is severe osteoarthritis of first met atarsophalangeal joint and mild osteoarthritis of some the interphalangeal joints. There is an enthes ophyte at plantar aspect of calcaneal tuberosity. IMPRESSION: 1. Avulsion fracture of medial base of fourth middle phalanx. 2. Nondisplaced intra-articular fracture of base of fifth proximal phalanx. 3. Fragmentation of articular surface of head of third metatarsal. 4. Particular osteoarthritis. Reviewed, dictated and finalized at location A. RWRITING CONSULTANT
--- NOTE | ~2023-01-01 | US_ITS ---
EXAMINATION: US venous doppler [facility] DATE: 01/01/2023 11:54 INDICATION: Right lower limb pain and swelling TECHNIQUE: Grayscale ultrasound images without and with compression and Doppler ultrasound images of the right lower extremity veins were obtained. COMPARISON: None. FINDINGS: The visualized portions of right common femoral vein, profunda (deep) femoral vein, femoral vein, pop liteal vein, peroneal trunk, posterior tibial veins, peroneal veins, gastrocnemius vein and greater s aphenous vein outflow are patent. IMPRESSION: 1. No deep venous thrombosis in the right lower limb. Reviewed, dictated and finalized at location A. CE LINE RN
--- NOTE | ~2023-01-01 | NM_ITS ---
EXAMINATION: NM pulmonary perfusion DATE: 01/01/2023 15:10 INDICATION: Shortness of breath. TECHNIQUE: 5.23 mCi Tc-99m MAA was administered intravenously for perfusion images. Scintigraphic im ages of the chest were obtained. COMPARISON: Chest single view 01/01/2023 FINDINGS: Perfusion images show small defects in the upper lobes. IMPRESSION: 1. Pulmonary embolism absent (low probability). Reviewed, dictated and finalized at location A. HES DESIGNER
--- NOTE | ~2023-01-01 | US_ITS ---
EXAMINATION: US abdomen limited DATE: 01/02/2023 19:30 INDICATION: Cirrhosis of the liver. TECHNIQUE: Multiple grayscale and Doppler ultrasound images of the abdomen were obtained. COMPARISON: CT abdomen and pelvis 10/14/2022 FINDINGS: There is liver surface nodularity, consistent with cirrhosis. The visualized portions of th e head and body of the pancreas are normal. There is normal flow in main portal vein. The gallbladder is absent. The common duct is normal and measures 6 mm. A survey of the 4 quadrants of the abdomen d emonstrates no ascites. IMPRESSION: 1. Cirrhosis of the liver. 2. No ascites. Reviewed, dictated and finalized at location A. GER CHILD
--- NOTE | ~2023-01-01 | XR_ITS ---
Portable chest x-ray Comparison: 01/01/2023 Clinical History: Shortness of breath Findings: Lungs are clear, without focal consolidation or pleural effusion. Cardiomediastinal silho uette is stable. Bones and soft tissues are unremarkable. Impression: Clear lungs. Reviewed, dictated and finalized at location . GENCY SERVICES DIRECTOR Impression: Clear lungs.
--- NOTE | 2023-01-01 10:01 | ECG_ITS ---
Measurements Intervals [place] Rate: 41 P: 69 WA: 203 QRS: -66 QRSD: 153 T: -6 QT: 538 QTc: 447 Interpretive Statements MARKED SINUS BRADYCARDIA INDETERMINATE AXIS RIGHT BUNDLE BRANCH BLOCK [120+ ms QRS DURATION, UPRIGHT V1, 40+ ms S IN I/aVL/V4/V5/V6] ANTEROSEPTAL MYOCARDIAL INFARCTION , PROBABLY OLD [40+ ms Q WAVE IN V1-V4] ABNORMAL ECG COMPARED TO ECG 12/22/2022 08:36:54 NO SIGNIFICANT CHANGES Electronically Signed On 01-01-2023 10:12:01 [employer]UM[employer]ITIES IN[employer] by Mahendra Maravilla M.D.
[2023-01-01 10:21] LABS: Basophils Absolute Auto 0.1 K/mm3 (0.0-0.1); Basophils Percent Auto 1.2 % (0.2-1.2); Eosinophils Absolute Auto 0.2 K/mm3 (0-0.3); Hematocrit 30.5 % (37.0-47.0); Immature Granulocyte Absolute 0.04 K/mm3 (0.00-0.031); Immature Granulocyte Percent A 0.7 % (0-0.5); Lymphocytes Absolute Auto 0.85 K/mm3 (0.9-3.2); Lymphocytes Percent Auto 14.9 % (18.3-44.2); Mean Corpuscular HGB Conc 29.5 g/dl (32-36); Mean Corpuscular Hemoglobin 29.4 pg (26-34); Mean Corpuscular Volume 99.7 fl (80-100); Mean Platelet Volume 10.2 fl (7.4-10.4); Monocytes Absolute Auto 0.4 K/mm3 (0.1-0.6); Monocytes Percent Auto 6.5 % (2.6-8.5); Neutrophils Absolute Auto 4.1 K/mm3 (1.3-6.7); Neutrophils Percent Auto 72.7 % (45.5-73.1); Nucleated Red Blood Cells Perc 0.4 % (0.0-0.2); Platelet Count Result 136 k/mm3 (150-375); Red Blood Count 3.06 M/mm3 (4.2-5.4); Red Cell Distribution Width 20.8 % (11.5-14.5); White Blood Count 5.7 K/mm3 (4.5-10.0)
--- NOTE | 2023-01-01 10:29 | ED.SOB ---
HPI - SOB/Dyspnea General Chief Complaint: Shortness of Breath/Dyspnea Stated Complaint: SOB Time Seen by Provider: 01/01/23 09:57 Source: patient Mode of arrival: ambulatory Limitations: no limitations History of Present Illness HPI Narrative: This is a 77 year old female that presents to the ER for shortness of breath ongoing since this morning. Reports some associated drowsiness. EMS was called and patient placed on 4L via NC with improvement. Patient also reports right lower extremity redness and swelling ongoing over the last couple of months. Denies fever, cough, or chest pain. Related Data Home Medications Medication Instructions Recorded Confirmed asenapine maleate 5 mg sublingual 5 mg sublingual Q12H 01/04/20 12/30/22 tablet (Saphris) escitalopram oxalate 5 mg tablet 5 mg PO DAILY 08/21/21 12/30/22 rosuvastatin 20 mg tablet 20 mg PO QHS 08/21/21 12/30/22 trazodone 100 mg tablet 300 mg PO HS 08/21/21 12/30/22 glucagon HCl 1 mg solution for 1 mg subcut Q20M PRN Hypoglycemia 02/13/22 12/30/22 injection (Glucagon (HCl) Emergency Kit) sodium chloride 0.65 % nasal spray 1 spray intranasal BID PRN Dry 02/13/22 12/30/22 aerosol (Saline Mist) Nasal Passages insulin glargine 100 unit/mL (3 9 unit subcut QHS 05/17/22 12/30/22 mL) subcutaneous pen (Lantus Solostar U-100 Insulin) furosemide 40 mg tablet 40 mg PO DAILY 07/18/22 12/30/22 hydroxyzine HCl 25 mg tablet 25 mg PO Q8H PRN Itching 08/25/22 12/30/22 acetaminophen 500 mg tablet 1,000 mg PO BID PRN Pain 09/14/22 12/30/22 ferrous sulfate 325 mg (65 mg 325 mg PO DAILY 12/22/22 12/30/22 iron) tablet gabapentin 600 mg tablet 600 mg PO TID 12/22/22 12/30/22 insulin lispro 100 unit/mL 7 unit subcut TIDWM 12/22/22 12/30/22 subcutaneous pen (Humalog KwikPen (U-100) Insulin) insulin lispro 100 unit/mL See Rx Instructions .Route .COMPLEX 12/22/22 12/30/22 subcutaneous pen (Humalog KwikPen (U-100) Insulin) pantoprazole 40 mg tablet,delayed 40 mg PO QAM 12/22/22 12/30/22 release propranolol 10 mg tablet 10 mg PO Q12H 12/22/22 12/30/22 Allergies Allergy/AdvReac Type Severity Reaction Status Date / Time alendronate sodium Allergy Unknown Verified 01/01/23 09:58 amantadine Allergy Unknown Verified 01/01/23 09:58 benztropine Allergy Unknown Verified 01/01/23 09:58 chlorpromazine Allergy Unknown Verified 01/01/23 09:58 levofloxacin Allergy Unknown Verified 01/01/23 09:58 Macrolide Antibiotics Allergy Unknown Verified 01/01/23 09:58 mirtazapine Allergy Unknown Verified 01/01/23 09:58 Quinolones Allergy Unknown Verified 01/01/23 09:58 topiramate Allergy Unknown Verified 01/01/23 09:58 Review of Systems Review of Systems: CONSTITUTIONAL: Denies fever. ENT: Denies rhinorrhea, congestion, sore throat CARDIOVASCULAR: Reports edema. Denies chest pain RESPIRATORY: Reports dyspnea. Denies cough. SKIN: Reports redness All systems reviewed & are unremarkable except as noted in HPI and below PMFSH Past Medical History Medical History Acute on chronic anemia Acute on chronic diastolic heart failure Acute spont intraparenchymal hemorrhage assoc w/ hypertension Anemia in chronic kidney disease (CKD) Anxiety Aortic stenosis Moderate on echocardiogram in November 2021. Arthritis Asthma Bipolar disorder Cerebrovascular accident Chronic kidney disease, stage 4 (severe) Chronic obstructive pulmonary disease PFTs 06/28/2021: Moderate obstructive abnormality, moderate decreased diffusion capacity. 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 COPD (chronic obstructive pulmonary disease) CVA (cerebrovascular accident) (~12/2019) Depression Diabetes mellitus Diabetic peripheral neuropathy Esophageal varices Frequent falls Gastroesophageal reflux disease Heart failure with preserved ejection fraction Hepatic encephalopathy Hyperlipidemia Hypertension Hypoglycemia Hypothyroidism Insulin
[2023-01-01 10:32] LABS: Alanine Aminotransferase 30 U/L (6-35); Alkaline Phosphatase 420 U/L (38-126); Anion Gap 9 mmol/L (8-16); Aspartate Amino Transferase 48 U/L (14-36); Bilirubin,Total 0.6 mg/dL (0.2-1.3); Blood Urea Nitrogen 33 mg/dL (7-17); Calcium 8.4 mg/dL (8.4-10.2); Carbon Dioxide 21 mmol/L (22-30); Chloride 109 mmol/L (98-107); Estimated CRCL calculation 15 ml/min; Estimated Glomerular Filt Rate 19; Glucose 74 mg/dL (65-110); INR 1.2; Potassium 4.6 mmol/L (3.4-5.0); Sodium 139 mmol/L (137-145)
[2023-01-01 10:35] LABS: Alveolar/Arterial O2 Gradient 118.9 mmHg; Carboxyhemoglobin 1.3 % THb (0-2.0); Fractional Inspired Oxygen 32 %; HCO3 ABG 20.9 mEq/l (22.0-26.0); Methemoglobin ABG 0.1 %THb (0-1.5); Oxygen Content ABG 12.4 %vol (16.0-22.0); Oxygen Saturation ABG 92.4 % (95.0-100.0); Oxyhemoglobin 89.3 % THb (90.0-100.0); PCO2 ABG 37.4 mmHg (35.0-45.0); PO2 ABG 65.5 mmHg (80.0-100.0); PO2 FiO2 Ratio Arterial Blood 2.05 %; Reduced Hemoglobin 9.3 %THb (0-5.0); Total Hemoglobin 9.8 g/dL (12.0-18.0); pH ABG 7.366 (7.350-7.450)
[2023-01-01 10:36] LABS: Device NASAL CANNULA; Modified Allen's Test Pass; Site Drawn LEFT RADIAL
[2023-01-01 10:37] LABS: Anisocytosis 2+ (NORMAL); Hypochromasia 1+ (NORMAL); Schistocytes None Seen (NORMAL)
[2023-01-01 10:41] LABS: NT Pro B Type Natriuretic Pept 1880 pg/mL (19.9-100)
[2023-01-01] MEDS: IPRATROPIUM BR 0.02% INH SOLN 0.5 MG/2.5 ML VIAL INHALATION (10:54)
[2023-01-01] MEDS: ALBUTEROL SULFATE NEB 2.5 MG/3 ML INH INHALATION ×2 (10:54→20:53)
[2023-01-01] MEDS: FUROSEMIDE INJ 40 MG/4 ML VIAL IV PUSH (12:26)
[2023-01-01 13:03] LABS: D Dimer 0.88 ug/mL (<0.48)
[2023-01-01 13:18] LABS: Influenza A QL RT-PCR Negative (Negative); Influenza B QL RT-PCR Negative (Negative); SARS-CoV-2 RNA PCR Negative
--- NOTE | 2023-01-01 13:58 | PM.IMHP ---
H&P: HPI History of Present Illness Date/Time: 01/01/23 13:58 Chief Complaint: Shortness of breath Narrative: This is a 77-year-old female patient who has a history of congestive heart failure and she came to the emergency room today for complaints of shortness of breath that started this morning. The patient also has some redness and swelling to her right lower extremity. The patient resides at [facility] and the patient was placed on oxygen at 4 L per nasal cannula via EMS. The patient does not wear any chronic oxygen at home. She denies any fever or cough. Her H&H is 9.0 in 30.5 which is her baseline. Platelets 136. D-dimer 0.8. Venous Dopplers negative. Creatinine 2.5 which is her baseline. Influenza a B and COVID are negative. Chest x-ray was read as mild interstitial pulmonary edema and minimal left pleural effusion. The patient was given 40 mg of Lasix and nebulizer treatments. The patient stated she starting to feel somewhat better. The patient is being admitted to inpatient status on the date of service of 01/01/2023. Review of Systems Review of Systems: See HPI [facility] Past Medical History Medical History Acute on chronic anemia Acute on chronic diastolic heart failure Acute spont intraparenchymal hemorrhage assoc w/ hypertension Anemia in chronic kidney disease (CKD) Anxiety Aortic stenosis Moderate on echocardiogram in November 2021. Arthritis Asthma Bipolar disorder Cerebrovascular accident Chronic kidney disease, stage 4 (severe) Chronic obstructive pulmonary disease PFTs 06/28/2021: Moderate obstructive abnormality, moderate decreased diffusion capacity. 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 Moreno History of partial hysterectomy History of thyroidectomy History of tonsillectomy Family History Family History Sibling Multiple sclerosis Father Acute myocardial infarction, Onset Age: 79 Cerebrovascular accident, Onset Age: 79 Mother Dementia Sibling Acute myocardial infarction, Onset Age: 65 Son Diabetes mellitus Other Depression Family history of arthritis Family history of elevated blood lipids Family history of thyroid disease Hypertension Social History Social History (Updated 01/01/23 @ 14:01 by Qing Irene NP) Social History: She has 3 children. She is . She lives alone. 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 Smoking packs per day: 2 Smoking cigarettes per day: 40.0 Years smoked: 50 Smoking pack-years: 100.00 Smoking status: Former smoker Tobacco type: cigarettes Second hand tobacco smoke exposure: No Smoking end date: 11/30/13 Alcohol intake: never Substance
--- NOTE | 2023-01-01 17:13 | ADMGEN ---
This patient, Nisha Sigala, was admitted to Medical Room 340-01. Patient/family oriented to hospital policies and general routines including ID bracelet, bed and alarms, visiting hours, pain management, procedures, bathroom and other care routines, personal items, smoking policy, room service/diet, and visiting hours. Information on how to activate the Rapid Response Team has been discussed. Patient/Family are encouraged to report perceived risks to care and to ask questions if they do not understand what they are told or what they should do.
[2023-01-01 17:33] LABS: Glucose Point of Care 76 mg/dl (65-105)
[2023-01-01] MEDS: ceFAZolin 500 MG in DEXTROSE 5% IN WATER 50 ML 100 ML IVPB (18:40)
[2023-01-01] MEDS: TOLNAFTATE 1% POWDER 45 GM BTL 1 APPLIC TOPICAL (20:25)
[2023-01-01] MEDS: IPRATROPIUM BR 0.02% INH SOLN 0.5 MG/2.5 ML VIAL 0.75 MG INHALATION (20:54)
[2023-01-01 21:00] LABS: Glucose Point of Care 166 mg/dl (65-105)
[2023-01-01] MEDS: lamoTRIgine 100 MG TABLET PO (23:00)
[2023-01-01] MEDS: lamoTRIgine 50 MG TABLET PO (23:01)
[2023-01-01] MEDS: ROSUVASTATIN 10 MG TABLET 20 MG PO (23:01)
[2023-01-01] MEDS: GABAPENTIN 300 MG CAPSULE 600 MG PO (23:01)
[2023-01-01] MEDS: traZODone HCL 50 MG TABLET 300 MG PO (23:02)
[2023-01-01] MEDS: MELATONIN 3 MG TABLET PO (23:02)
[2023-01-01] MEDS: INSULIN GLARGINE (*BKC) 100 UNITS/ML 9 UNITS SUB-Q (23:16)
[2023-01-02] VITALS (21 sets, daily range): BP systolic 143–162; BP diastolic 50–59; PULSE 40–80; RESP 18–20; TEMP 36.2–36.5; O2SAT 94–98
[2023-01-02] MEDS: ceFAZolin 500 MG in DEXTROSE 5% IN WATER 50 ML 100 ML IVPB ×3 (01:48→17:31)
[2023-01-02] MEDS: ALBUTEROL SULFATE NEB 2.5 MG/3 ML INH INHALATION ×4 (03:20→20:30)
[2023-01-02] MEDS: IPRATROPIUM BR 0.02% INH SOLN 0.5 MG/2.5 ML VIAL 0.75 MG INHALATION ×4 (03:20→20:30)
[2023-01-02 05:14] LABS: Basophils Percent Auto 0.9 % (0.2-1.2); Eosinophils Absolute Auto 0.2 K/mm3 (0-0.3); Eosinophils Percent Auto 5.4 % (0-4.4); Hematocrit 26.3 % (37.0-47.0); Hemoglobin 7.8 g/dL (12.0-15.0); Immature Granulocyte Absolute 0.04 K/mm3 (0.00-0.031); Immature Granulocyte Percent A 1.2 % (0-0.5); Lymphocytes Absolute Auto 0.74 K/mm3 (0.9-3.2); Lymphocytes Percent Auto 22.1 % (18.3-44.2); Mean Corpuscular HGB Conc 29.7 g/dl (32-36); Mean Corpuscular Hemoglobin 29.8 pg (26-34); Mean Corpuscular Volume 100.4 fl (80-100); Mean Platelet Volume 10.4 fl (7.4-10.4); Monocytes Absolute Auto 0.3 K/mm3 (0.1-0.6); Monocytes Percent Auto 7.8 % (2.6-8.5); Neutrophils Absolute Auto 2.1 K/mm3 (1.3-6.7); Neutrophils Percent Auto 62.6 % (45.5-73.1); Nucleated Red Blood Cells Perc 0.6 % (0.0-0.2); Platelet Count Result 112 k/mm3 (150-375); Red Blood Count 2.62 M/mm3 (4.2-5.4); Red Cell Distribution Width 20.6 % (11.5-14.5); White Blood Count 3.4 K/mm3 (4.5-10.0)
[2023-01-02 05:26] LABS: Lactic Acid Reflex 0.7 mmol/L (0.7-2.0)
[2023-01-02 05:29] LABS: Alanine Aminotransferase 25 U/L (6-35); Albumin Level 3.3 g/dL (3.5-5.1); Alkaline Phosphatase 361 U/L (38-126); Anion Gap 7 mmol/L (8-16); Aspartate Amino Transferase 40 U/L (14-36); Bilirubin,Total 0.5 mg/dL (0.2-1.3); Blood Urea Nitrogen 36 mg/dL (7-17); Carbon Dioxide 23 mmol/L (22-30); Chloride 110 mmol/L (98-107); Estimated CRCL calculation 15 ml/min; Estimated Glomerular Filt Rate 19; Glucose 79 mg/dL (65-110); Magnesium 2.8 mg/dL (1.6-2.3); Potassium 4.6 mmol/L (3.4-5.0); Sodium 140 mmol/L (137-145)
[2023-01-02] MEDS: LEVOTHYROXINE SODIUM 150 MCG TABLET PO (05:52)
[2023-01-02 08:10] LABS: Total Triiodothyronine (T3) 1.49 NG/ML (0.97-1.69)
[2023-01-02 08:34] LABS: Glucose Point of Care 79 mg/dl (65-105)
[2023-01-02] MEDS: amLODIPine BESYLATE 5 MG TABLET 10 MG PO (08:58)
[2023-01-02] MEDS: ENOXAPARIN 30 MG/0.3 ML SYRINGE SUB-Q (08:58)
[2023-01-02] MEDS: ESCITALOPRAM OXALATE 5 MG TABLET PO (08:59)
[2023-01-02] MEDS: lamoTRIgine 100 MG TABLET PO ×2 (08:59→21:16)
[2023-01-02] MEDS: PANTOPRAZOLE 40 MG TABLET PO (08:59)
[2023-01-02] MEDS: FUROSEMIDE INJ 40 MG/4 ML VIAL IV PUSH ×2 (08:59→17:29)
[2023-01-02] MEDS: FERROUS SULFATE 324 MG TABLET PO (08:59)
[2023-01-02] MEDS: lamoTRIgine 50 MG TABLET PO ×2 (08:59→21:16)
[2023-01-02] MEDS: TOLNAFTATE 1% POWDER 45 GM BTL 1 APPLIC TOPICAL ×2 (08:59→21:20)
[2023-01-02] MEDS: GABAPENTIN 300 MG CAPSULE 600 MG PO ×3 (08:59→17:28)
[2023-01-02] MEDS: UMECLIDINIUM/VILANTEROL 62.5-25 MCG ELLIPTA 1 PUFF INHALATION (09:13)
[2023-01-02 12:04] LABS: Hematocrit 28.3 % (37.0-47.0); Hemoglobin 8.5 g/dL (12.0-15.0)
[2023-01-02 12:22] LABS: Glucose Point of Care 137 mg/dl (65-105)
[2023-01-02 13:08] LABS: Hemoglobin A1C 4.5 % (<5.7)
--- NOTE | 2023-01-02 15:38 | PM.IMPN ---
Progress Note: A&P Assessment and Plan (1) Acute on chronic diastolic heart failure: Code(s): I50.33 - Acute on chronic diastolic (congestive) heart failure Status: Acute Assessment and Plan: Patient presents with shortness of breath and hypoxia. Chest x-ray shows mild interstitial pulmonary edema and left pleural effusion. D-dimer was mildly positive. Right lower extremity venous Doppler was negative for DVT. V/Q scan was low probability for PE. She was started on IV Lasix. ANY on 11/07/2022 showing aortic stenosis, grade 2 diastolic dysfunction with preserved EF. Advance IV Lasix. Monitor fluid status, renal function and electrolytes. (2) Cellulitis: Code(s): L03.90 - Cellulitis, unspecified Status: Acute Assessment and Plan: Possible right lower extremity. Continue with cefazolin pharmacy to renally dose for cellulitis. Right foot bruising. Will check xray. (3) Chronic kidney disease, stage 4 (severe): Code(s): N18.4 - Chronic kidney disease, stage 4 (severe) Status: Acute Assessment and Plan: Cr runs 2.1-2.5. She remains at her baseline. Tolerating diuresis. Continue to monitor. (4) Anemia: Code(s): D64.9 - Anemia, unspecified Status: Acute Assessment and Plan: Hemoglobin chronically low. Recent iron studies noted. Soluble transferrin receptor was elevated. B12 level is normal but methylmalonic acid level is elevated. Will start IV iron and IM B12. Serial hemoglobin values. Transfuse as needed. (5) Chronic obstructive pulmonary disease: Code(s): J44.9 - Chronic obstructive pulmonary disease, unspecified Status: Acute Assessment and Plan: Stable. No wheezing. Able to wean O2. Doubt COPD exacerbation. Continue with nebulizer treatments. (6) Diabetic peripheral neuropathy: Code(s): E11.42 - Type 2 diabetes mellitus with diabetic polyneuropathy Status: Acute Assessment and Plan: A1c 4.5. The patient's blood glucose was reviewed on 01/02 Glucose remains well controlled. Continue AccuCheks covering with sliding scale. Hypoglycemia protocol available as needed. Continue to monitor. (7) Hypertension: Code(s): I10 - Essential (primary) hypertension Status: Acute Assessment and Plan: Patient's blood pressure was reviewed on 01/02 Blood pressure remains mildly elevated at times. Will continue current medications with amlodipine and propranolol (8) Hypothyroidism: Qualifiers: Hypothyroidism type: acquired Qualified Code(s): E03.9 - Hypothyroidism, unspecified Code(s): E03.9 - Hypothyroidism, unspecified Status: Acute Assessment and Plan: TSH mildly elevated at 9.6 but better than in November. Continue Synthroid and recheck as outpatient. 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 INR 1.2. Albumin 3.3. She appears well compensated. Continue Lasix. Check abdominal ultrasound to exclude ascites. Continue lactulose. (10) Bipolar disorder: Qualifiers: Active/Remission status: in full remission Most recent bipolar episode type: most recent episode unspecified type Qualified Code(s): F31.70 - Bipolar disorder, currently in remission, most recent episode unspecified Code(s): F31.9 - Bipolar disorder, unspecified Status: Acute Assessment and Plan: Mood stable. Continue with Lamictal, Lexapro, hydroxyzine, and trazodone Subjective Date/time seen: 01/02/23 15:38 Interval history: 77yo female with DM, COPD, aortic stenosis, dCHF, CVA, cirrhosis and HTN here for shortness of breath. Patient does not wear O2 at home. She feels better but still feels SOB. No chest pain. No abdominal pain. She has noted incr
[2023-01-02] MEDS: CYANOCOBALAMIN INJ 1,000 MCG/ML VIAL 1000 MCG IM (17:29)
[2023-01-02 17:31] LABS: Glucose Point of Care 106 mg/dl (65-105)
[2023-01-02] MEDS: IRON SUCROSE COMPLEX 100 MG in SODIUM CHLORIDE 0.9% IV 50 ML 220 MG IVPB (18:28)
[2023-01-02 18:46] LABS: Hematocrit 27.4 % (37.0-47.0); Hemoglobin 8.3 g/dL (12.0-15.0)
[2023-01-02 20:57] LABS: Glucose Point of Care 109 mg/dl (65-105)
[2023-01-02] MEDS: ROSUVASTATIN 10 MG TABLET 20 MG PO (21:17)
[2023-01-02] MEDS: MELATONIN 3 MG TABLET PO (21:17)
[2023-01-02] MEDS: INSULIN GLARGINE (*BKC) 100 UNITS/ML 9 UNITS SUB-Q (21:18)
[2023-01-02] MEDS: traZODone HCL 50 MG TABLET 300 MG PO (21:19)
[2023-01-03] VITALS (18 sets, daily range): BP systolic 128–140; BP diastolic 46–58; PULSE 47–62; RESP 16–20; TEMP 36.1–36.7; O2SAT 92–100
[2023-01-03 01:16] LABS: Hematocrit 25.7 % (37.0-47.0); Hemoglobin 7.8 g/dL (12.0-15.0)
[2023-01-03] MEDS: ceFAZolin 500 MG in DEXTROSE 5% IN WATER 50 ML 100 ML IVPB ×2 (02:42→18:44)
[2023-01-03] MEDS: LEVOTHYROXINE SODIUM 150 MCG TABLET PO (06:53)
[2023-01-03 07:05] LABS: Eosinophils Absolute Auto 0.1 K/mm3 (0-0.3); Eosinophils Percent Auto 4.3 % (0-4.4); Hemoglobin 8.3 g/dL (12.0-15.0); Immature Granulocyte Absolute 0.03 K/mm3 (0.00-0.031); Lymphocytes Absolute Auto 0.69 K/mm3 (0.9-3.2); Lymphocytes Percent Auto 22.9 % (18.3-44.2); Mean Corpuscular HGB Conc 30.7 g/dl (32-36); Mean Corpuscular Hemoglobin 30.4 pg (26-34); Mean Corpuscular Volume 98.9 fl (80-100); Mean Platelet Volume 10.6 fl (7.4-10.4); Monocytes Absolute Auto 0.2 K/mm3 (0.1-0.6); Monocytes Percent Auto 7.3 % (2.6-8.5); Neutrophils Absolute Auto 1.9 K/mm3 (1.3-6.7); Neutrophils Percent Auto 63.5 % (45.5-73.1); Nucleated Red Blood Cells Perc 1.3 % (0.0-0.2); Platelet Count Result 115 k/mm3 (150-375); Red Blood Count 2.73 M/mm3 (4.2-5.4); Red Cell Distribution Width 20.6 % (11.5-14.5)
[2023-01-03 07:10] LABS: Albumin Level 3.7 g/dL (3.5-5.1); Anion Gap 6 mmol/L (8-16); Blood Urea Nitrogen 36 mg/dL (7-17); Calcium 8.3 mg/dL (8.4-10.2); Carbon Dioxide 26 mmol/L (22-30); Chloride 104 mmol/L (98-107); Estimated CRCL calculation 15 ml/min; Estimated Glomerular Filt Rate 19; Glucose 75 mg/dL (65-110); Magnesium 2.5 mg/dL (1.6-2.3); Phosphorus 4.6 mg/dL (2.5-4.5); Potassium 4.5 mmol/L (3.4-5.0); Sodium 136 mmol/L (137-145)
[2023-01-03] MEDS: ALBUTEROL SULFATE NEB 2.5 MG/3 ML INH INHALATION ×3 (08:12→21:35)
[2023-01-03] MEDS: IPRATROPIUM BR 0.02% INH SOLN 0.5 MG/2.5 ML VIAL 0.75 MG INHALATION (08:12)
[2023-01-03] MEDS: UMECLIDINIUM/VILANTEROL 62.5-25 MCG ELLIPTA 1 PUFF INHALATION (08:13)
[2023-01-03 08:33] LABS: Glucose Point of Care 71 mg/dl (65-105)
[2023-01-03] MEDS: GABAPENTIN 300 MG CAPSULE 600 MG PO ×3 (08:56→18:25)
[2023-01-03] MEDS: ENOXAPARIN 30 MG/0.3 ML SYRINGE SUB-Q (08:56)
[2023-01-03] MEDS: FUROSEMIDE INJ 40 MG/4 ML VIAL IV PUSH ×2 (08:56→18:25)
[2023-01-03] MEDS: FERROUS SULFATE 324 MG TABLET PO (08:56)
[2023-01-03] MEDS: amLODIPine BESYLATE 5 MG TABLET 10 MG PO (08:56)
[2023-01-03] MEDS: ESCITALOPRAM OXALATE 5 MG TABLET PO (08:56)
[2023-01-03] MEDS: TOLNAFTATE 1% POWDER 45 GM BTL 1 APPLIC TOPICAL ×2 (08:57→19:30)
[2023-01-03] MEDS: ceFAZolin 500 MG in DEXTROSE 5% IN WATER 50 ML IVPB (08:57)
[2023-01-03] MEDS: lamoTRIgine 100 MG TABLET PO ×2 (08:57→19:29)
[2023-01-03] MEDS: PANTOPRAZOLE 40 MG TABLET PO (08:57)
[2023-01-03] MEDS: lamoTRIgine 50 MG TABLET PO ×2 (08:57→19:29)
--- NOTE | 2023-01-03 10:19 | PC.NURSE ---
Held propranolol. Heart rate is mid 40's to low 50's. Will notify
[2023-01-03 12:22] LABS: Glucose Point of Care 100 mg/dl (65-105)
[2023-01-03] MEDS: IPRATROPIUM BR 0.02% INH SOLN 0.5 MG/2.5 ML VIAL INHALATION ×2 (13:59→21:35)
--- NOTE | 2023-01-03 14:55 | PM.IMPN ---
Progress Note: A&P Assessment and Plan (1) Acute on chronic diastolic heart failure: Code(s): I50.33 - Acute on chronic diastolic (congestive) heart failure Status: Acute Assessment and Plan: Patient presents with shortness of breath and hypoxia. Chest x-ray shows mild interstitial pulmonary edema and left pleural effusion. D-dimer was mildly positive. Bilateral lower extremity venous Doppler was negative for DVT. V/Q scan was low probability for PE. She was started on IV Lasix. ANY on 11/07/2022 showing aortic stenosis, grade 2 diastolic dysfunction with preserved EF. Continue IV Lasix. Monitor fluid status, renal function and electrolytes. Continue Lasix. Fluid restrict (2) Cellulitis: Code(s): L03.90 - Cellulitis, unspecified Status: Acute Assessment and Plan: Possible right lower extremity. Continue with cefazolin (3) Foot fracture, right: Code(s): S92.901A - Unspecified fracture of right foot, initial encounter for closed fracture Status: Acute Assessment and Plan: Right foot bruising. Xray showing avulsion fracture of the medial base of the fourth middle phalanx and nondisplaced intra-articular fracture at the base of the 5th proximal phalanx. Will nisha wrap 3-4 and 4-5 toes. (4) Chronic kidney disease, stage 4 (severe): Code(s): N18.4 - Chronic kidney disease, stage 4 (severe) Status: Acute Assessment and Plan: Cr runs 2.1-2.5. She remains at her baseline. Tolerating diuresis. Continue to monitor. (5) Anemia: Code(s): D64.9 - Anemia, unspecified Status: Acute Assessment and Plan: Hemoglobin chronically low. Recent iron studies noted. Soluble transferrin receptor was elevated. B12 level is normal but methylmalonic acid level is elevated. She received IV iron and IM B12. hgb stable 7-8 range. Transfuse as needed. Add oral B12. Continue iron. (6) Chronic obstructive pulmonary disease: Code(s): J44.9 - Chronic obstructive pulmonary disease, unspecified Status: Acute Assessment and Plan: Stable. Mild wheezing noted to day. Able to wean O2. Doubt COPD exacerbation. Continue with nebulizer treatments. (7) Diabetic peripheral neuropathy: Code(s): E11.42 - Type 2 diabetes mellitus with diabetic polyneuropathy Status: Acute Assessment and Plan: A1c 4.5. The patient's blood glucose was reviewed on 01/03 Glucose too well controlled. Continue AccuCheks covering with sliding scale. Hypoglycemia protocol available as needed. Continue to monitor. Decrease Lantus. She is not on her scheduled meal time insulin. 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 INR 1.2. Albumin 3.3. Abd US showing no ascites. She appears well compensated. Continue Lasix. Continue lactulose. Check Ammonia (9) Hypertension: Code(s): I10 - Essential (primary) hypertension Status: Acute Assessment and Plan: Patient's blood pressure was reviewed on 01/03 Blood pressure reasonably well controlled Will continue current medications with amlodipine and propranolol (10) Hypothyroidism: Qualifiers: Hypothyroidism type: acquired Qualified Code(s): E03.9 - Hypothyroidism, unspecified Code(s): E03.9 - Hypothyroidism, unspecified Status: Acute Assessment and Plan: TSH mildly elevated at 9.6 but better than in November. Continue Synthroid and recheck as outpatient. (11) Bipolar disorder: Qualifiers: Active/Remission status: in full remission Most recent bipolar episode type: most recent episode unspecified type Qualified Code(s): F31.70 - Bipolar disorder, currently in remission, most recent episode unspecified Code(s): F31.9 - Bipolar disorder,
[2023-01-03 17:19] LABS: Glucose Point of Care 114 mg/dl (65-105)
[2023-01-03] MEDS: ROSUVASTATIN 10 MG TABLET 20 MG PO (19:28)
[2023-01-03] MEDS: traZODone HCL 50 MG TABLET 300 MG PO (19:28)
[2023-01-03] MEDS: MELATONIN 3 MG TABLET PO (19:29)
[2023-01-03] MEDS: PROPRANOLOL HCL 10 MG TABLET PO (19:30)
[2023-01-03 21:07] LABS: Glucose Point of Care 178 mg/dl (65-105)
[2023-01-04] VITALS (17 sets, daily range): BP systolic 128–133; BP diastolic 44–58; PULSE 44–74; RESP 16–20; TEMP 36.4–36.6; O2SAT 93–99
[2023-01-04] MEDS: ceFAZolin 500 MG in DEXTROSE 5% IN WATER 50 ML 100 ML IVPB ×3 (01:43→17:56)
[2023-01-04] MEDS: hydrOXYzine HCL 25 MG TABLET PO ×2 (02:24→23:56)
--- NOTE | 2023-01-04 05:38 | PCRCNOTE ---
Patient wanted to sleep through the night and not be awakened for her 0200 updraft treatment. RN aware.
[2023-01-04] MEDS: LEVOTHYROXINE SODIUM 150 MCG TABLET PO (06:32)
[2023-01-04 06:45] LABS: Basophils Percent Auto 0.9 % (0.2-1.2); Eosinophils Absolute Auto 0.2 K/mm3 (0-0.3); Hematocrit 25.9 % (37.0-47.0); Hemoglobin 7.9 g/dL (12.0-15.0); Immature Granulocyte Absolute 0.03 K/mm3 (0.00-0.031); Immature Granulocyte Percent A 0.9 % (0-0.5); Lymphocytes Absolute Auto 0.78 K/mm3 (0.9-3.2); Lymphocytes Percent Auto 24.3 % (18.3-44.2); Mean Corpuscular HGB Conc 30.5 g/dl (32-36); Mean Corpuscular Hemoglobin 30.3 pg (26-34); Mean Corpuscular Volume 99.2 fl (80-100); Mean Platelet Volume 9.8 fl (7.4-10.4); Monocytes Absolute Auto 0.3 K/mm3 (0.1-0.6); Monocytes Percent Auto 7.8 % (2.6-8.5); Neutrophils Percent Auto 61.1 % (45.5-73.1); Nucleated Red Blood Cells Perc 0.6 % (0.0-0.2); Platelet Count Result 100 k/mm3 (150-375); Red Blood Count 2.61 M/mm3 (4.2-5.4); Red Cell Distribution Width 21.1 % (11.5-14.5); White Blood Count 3.2 K/mm3 (4.5-10.0)
[2023-01-04 06:55] LABS: Ammonia 20 umol/L (9-30)
[2023-01-04 06:56] LABS: Albumin Level 3.5 g/dL (3.5-5.1); Anion Gap 4 mmol/L (8-16); Blood Urea Nitrogen 33 mg/dL (7-17); Calcium 8.3 mg/dL (8.4-10.2); Carbon Dioxide 29 mmol/L (22-30); Chloride 103 mmol/L (98-107); Estimated CRCL calculation 15 ml/min; Estimated Glomerular Filt Rate 19; Glucose 89 mg/dL (65-110); Magnesium 2.2 mg/dL (1.6-2.3); Phosphorus 4.2 mg/dL (2.5-4.5); Potassium 4.3 mmol/L (3.4-5.0); Sodium 136 mmol/L (137-145)
[2023-01-04 08:41] LABS: Glucose Point of Care 91 mg/dl (65-105)
[2023-01-04] MEDS: IPRATROPIUM BR 0.02% INH SOLN 0.5 MG/2.5 ML VIAL INHALATION ×3 (09:21→21:41)
[2023-01-04] MEDS: ALBUTEROL SULFATE NEB 2.5 MG/3 ML INH INHALATION ×3 (09:21→21:41)
[2023-01-04] MEDS: UMECLIDINIUM/VILANTEROL 62.5-25 MCG ELLIPTA 1 PUFF INHALATION (09:21)
[2023-01-04] MEDS: FERROUS SULFATE 324 MG TABLET PO (09:55)
[2023-01-04] MEDS: GABAPENTIN 300 MG CAPSULE 600 MG PO ×3 (09:55→17:50)
[2023-01-04] MEDS: amLODIPine BESYLATE 5 MG TABLET 10 MG PO (09:55)
[2023-01-04] MEDS: ESCITALOPRAM OXALATE 5 MG TABLET PO (09:55)
[2023-01-04] MEDS: CYANOCOBALAMIN 1,000 MCG TABLET 1000 MCG PO (09:55)
[2023-01-04] MEDS: ENOXAPARIN 30 MG/0.3 ML SYRINGE SUB-Q (09:55)
--- NOTE | 2023-01-04 09:55 | PC.NURSE ---
During assessment patient's right arm was shaking. Patient said she cannot control it and she does not know why arm is shaking. Paediatric Surgeon asked patient to food science professor her hand with that arm and patient successfully did this and the shaking stopped. Will update hospitalist on findings.
[2023-01-04] MEDS: lamoTRIgine 100 MG TABLET PO ×2 (09:56→21:10)
[2023-01-04] MEDS: PANTOPRAZOLE 40 MG TABLET PO (09:56)
[2023-01-04] MEDS: lamoTRIgine 50 MG TABLET PO ×2 (09:56→21:10)
[2023-01-04] MEDS: TOLNAFTATE 1% POWDER 45 GM BTL 1 APPLIC TOPICAL ×2 (09:56→21:11)
[2023-01-04] MEDS: FUROSEMIDE INJ 40 MG/4 ML VIAL IV PUSH ×2 (10:00→17:57)
[2023-01-04 12:36] LABS: Glucose Point of Care 98 mg/dl (65-105)
--- NOTE | 2023-01-04 16:32 | PM.IMPN ---
Progress Note: A&P Assessment and Plan (1) Acute on chronic diastolic heart failure: Code(s): I50.33 - Acute on chronic diastolic (congestive) heart failure Status: Acute Assessment and Plan: Patient presents with shortness of breath and hypoxia. Chest x-ray shows mild interstitial pulmonary edema and left pleural effusion. D-dimer was mildly positive. Bilateral lower extremity venous Doppler was negative for DVT. V/Q scan was low probability for PE. She was started on IV Lasix. ANY on 11/07/2022 showing aortic stenosis, grade 2 diastolic dysfunction with preserved EF. Improving. Off O2 now. Continue IV Lasix but change to oral tomorrow. Monitor fluid status, renal function and electrolytes. Contnue fluid restriction (2) Cellulitis: Code(s): L03.90 - Cellulitis, unspecified Status: Acute Assessment and Plan: Possible right lower extremity. Continue with cefazolin. (3) Foot fracture, right: Code(s): S92.901A - Unspecified fracture of right foot, initial encounter for closed fracture Status: Acute Assessment and Plan: Right foot bruising. Xray showing avulsion fracture of the medial base of the fourth middle phalanx and nondisplaced intra-articular fracture at the base of the 5th proximal phalanx. Rigoberto wrap 3-4 and 4-5 toes. (4) Chronic kidney disease, stage 4 (severe): Code(s): N18.4 - Chronic kidney disease, stage 4 (severe) Status: Acute Assessment and Plan: Cr runs 2.1-2.5. She remains at her baseline. Tolerating diuresis. Continue to monitor. (5) Anemia: Code(s): D64.9 - Anemia, unspecified Status: Acute Assessment and Plan: Hemoglobin chronically low. Recent iron studies noted. Soluble transferrin receptor was elevated. B12 level is normal but methylmalonic acid level is elevated. She received IV iron and IM B12. hgb stable 7-8 range. Transfuse as needed. Continue oral B12. Continue iron. (6) Chronic obstructive pulmonary disease: Code(s): J44.9 - Chronic obstructive pulmonary disease, unspecified Status: Acute Assessment and Plan: Stable. No wheezing noted today. Able to wean off O2. Doubt COPD exacerbation. Continue with nebulizer treatments. (7) Diabetic peripheral neuropathy: Code(s): E11.42 - Type 2 diabetes mellitus with diabetic polyneuropathy Status: Acute Assessment and Plan: A1c 4.5. The patient's blood glucose was reviewed on 01/04 Glucose well controlled. Continue AccuCheks covering with sliding scale. Hypoglycemia protocol available as needed. Lantus held. Continue to monitor off Lantus. She is not on her scheduled meal time insulin here either. 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 INR 1.2. Albumin 3.3. Ammonia 20. Abd US showing no ascites. She appears well compensated. Continue Lasix. Continue lactulose (9) Hypertension: Code(s): I10 - Essential (primary) hypertension Status: Acute Assessment and Plan: Patient's blood pressure was reviewed on 01/04 Blood pressure reasonably well controlled Will continue current medications with amlodipine and propranolol (10) Hypothyroidism: Qualifiers: Hypothyroidism type: acquired Qualified Code(s): E03.9 - Hypothyroidism, unspecified Code(s): E03.9 - Hypothyroidism, unspecified Status: Acute Assessment and Plan: TSH mildly elevated at 9.6 but better than in November. Continue Synthroid and recheck as outpatient. (11) Bipolar disorder: Qualifiers: Active/Remission status: in full remission Most recent bipolar episode type: most recent episode unspecified type Qualified Code(s): F31.70 - Bipolar disorder, currently in remission, most recen
[2023-01-04 17:30] LABS: Glucose Point of Care 92 mg/dl (65-105)
[2023-01-04 20:00] LABS: Glucose Point of Care 179 mg/dl (65-105)
[2023-01-04] MEDS: MELATONIN 3 MG TABLET PO (21:10)
[2023-01-04] MEDS: ROSUVASTATIN 10 MG TABLET 20 MG PO (21:10)
[2023-01-04] MEDS: traZODone HCL 50 MG TABLET 300 MG PO (21:10)
[2023-01-05] VITALS (16 sets, daily range): BP systolic 128–138; BP diastolic 51–71; PULSE 48–93; RESP 16–54; TEMP 36.4–36.6; O2SAT 16–97
[2023-01-05] MEDS: ceFAZolin 500 MG in DEXTROSE 5% IN WATER 50 ML 100 ML IVPB ×2 (02:03→09:25)
[2023-01-05 05:46] LABS: Basophils Percent Auto 0.9 % (0.2-1.2); Eosinophils Absolute Auto 0.2 K/mm3 (0-0.3); Eosinophils Percent Auto 4.5 % (0-4.4); Hematocrit 27.3 % (37.0-47.0); Hemoglobin 8.2 g/dL (12.0-15.0); Immature Granulocyte Absolute 0.01 K/mm3 (0.00-0.031); Immature Granulocyte Percent A 0.3 % (0-0.5); Lymphocytes Absolute Auto 0.89 K/mm3 (0.9-3.2); Lymphocytes Percent Auto 25.3 % (18.3-44.2); Mean Corpuscular Hemoglobin 29.7 pg (26-34); Mean Corpuscular Volume 98.9 fl (80-100); Mean Platelet Volume 10.5 fl (7.4-10.4); Monocytes Absolute Auto 0.3 K/mm3 (0.1-0.6); Neutrophils Absolute Auto 2.2 K/mm3 (1.3-6.7); Platelet Count Result 111 k/mm3 (150-375); Red Blood Count 2.76 M/mm3 (4.2-5.4); Red Cell Distribution Width 20.8 % (11.5-14.5); White Blood Count 3.5 K/mm3 (4.5-10.0)
[2023-01-05] MEDS: LEVOTHYROXINE SODIUM 150 MCG TABLET PO (05:49)
[2023-01-05 05:55] LABS: Alanine Aminotransferase 28 U/L (6-35); Albumin Level 3.5 g/dL (3.5-5.1); Alkaline Phosphatase 488 U/L (38-126); Anion Gap 7 mmol/L (8-16); Aspartate Amino Transferase 81 U/L (14-36); Bilirubin,Total 0.4 mg/dL (0.2-1.3); Blood Urea Nitrogen 31 mg/dL (7-17); Calcium 8.5 mg/dL (8.4-10.2); Carbon Dioxide 29 mmol/L (22-30); Chloride 103 mmol/L (98-107); Estimated CRCL calculation 15 ml/min; Estimated Glomerular Filt Rate 19; Glucose 101 mg/dL (65-110); Potassium 4.2 mmol/L (3.4-5.0); Sodium 139 mmol/L (137-145)
[2023-01-05] MEDS: IPRATROPIUM BR 0.02% INH SOLN 0.5 MG/2.5 ML VIAL INHALATION ×3 (07:23→19:56)
[2023-01-05] MEDS: ALBUTEROL SULFATE NEB 2.5 MG/3 ML INH INHALATION ×3 (07:23→19:56)
[2023-01-05 08:24] LABS: Glucose Point of Care 116 mg/dl (65-105)
[2023-01-05] MEDS: PANTOPRAZOLE 40 MG TABLET PO (08:55)
[2023-01-05] MEDS: FUROSEMIDE 40 MG TABLET PO ×2 (08:55→17:58)
[2023-01-05] MEDS: lamoTRIgine 50 MG TABLET PO ×2 (08:55→20:27)
[2023-01-05] MEDS: ENOXAPARIN 30 MG/0.3 ML SYRINGE SUB-Q (08:55)
[2023-01-05] MEDS: PROPRANOLOL HCL 10 MG TABLET PO (08:55)
[2023-01-05] MEDS: FERROUS SULFATE 324 MG TABLET PO (08:55)
[2023-01-05] MEDS: CYANOCOBALAMIN 1,000 MCG TABLET 1000 MCG PO (08:55)
[2023-01-05] MEDS: amLODIPine BESYLATE 5 MG TABLET 10 MG PO (08:55)
[2023-01-05] MEDS: GABAPENTIN 300 MG CAPSULE 600 MG PO ×3 (08:55→17:58)
[2023-01-05] MEDS: lamoTRIgine 100 MG TABLET PO ×2 (08:55→20:27)
[2023-01-05] MEDS: ESCITALOPRAM OXALATE 5 MG TABLET PO (08:55)
[2023-01-05] MEDS: TOLNAFTATE 1% POWDER 45 GM BTL 1 APPLIC TOPICAL ×2 (08:56→20:31)
[2023-01-05] MEDS: hydrOXYzine HCL 25 MG TABLET PO ×2 (09:30→22:57)
--- NOTE | 2023-01-05 11:29 | PM.IMPN ---
Progress Note: A&P Assessment and Plan (1) Acute on chronic diastolic heart failure: Code(s): I50.33 - Acute on chronic diastolic (congestive) heart failure Status: Acute Assessment and Plan: Patient presents with shortness of breath and hypoxia. Chest x-ray shows mild interstitial pulmonary edema and left pleural effusion. D-dimer was mildly positive. Bilateral lower extremity venous Doppler was negative for DVT. V/Q scan was low probability for PE. She was started on IV Lasix. ANY on 11/07/2022 showing aortic stenosis, grade 2 diastolic dysfunction with preserved EF. Improving. Off O2 now. Change to oral Lasix. Monitor fluid status, renal function and electrolytes. Continue fluid restriction (2) Cellulitis: Code(s): L03.90 - Cellulitis, unspecified Status: Acute Assessment and Plan: Possible right lower extremity. Treated with cefazolin. Changed to Keflex. (3) Foot fracture, right: Code(s): S92.901A - Unspecified fracture of right foot, initial encounter for closed fracture Status: Acute Assessment and Plan: Right foot bruising. Xray showing avulsion fracture of the medial base of the fourth middle phalanx and nondisplaced intra-articular fracture at the base of the 5th proximal phalanx. No saida to the foot. Patient informed of this finding. Rigoberto wrap 3-4 and 4-5 toes. (4) Chronic kidney disease, stage 4 (severe): Code(s): N18.4 - Chronic kidney disease, stage 4 (severe) Status: Acute Assessment and Plan: Cr runs 2.1-2.5. She remains at her baseline. Tolerating diuresis. Continue to monitor. (5) Anemia: Code(s): D64.9 - Anemia, unspecified Status: Acute Assessment and Plan: Hemoglobin chronically low. Recent iron studies noted. Soluble transferrin receptor was elevated. B12 level is normal but methylmalonic acid level is elevated. She received IV iron and IM B12. hgb stable 7-8 range. Transfuse as needed. Continue oral B12. Continue iron. (6) Chronic obstructive pulmonary disease: Code(s): J44.9 - Chronic obstructive pulmonary disease, unspecified Status: Acute Assessment and Plan: Stable. No wheezing noted today. Able to wean off O2. Doubt COPD exacerbation. Continue with nebulizer treatments. (7) Diabetic peripheral neuropathy: Code(s): E11.42 - Type 2 diabetes mellitus with diabetic polyneuropathy Status: Acute Assessment and Plan: A1c 4.5. The patient's blood glucose was reviewed on 01/05 Glucose well controlled. Continue AccuCheks covering with sliding scale. Hypoglycemia protocol available as needed. Lantus held. Continue to monitor off Lantus. She is not on her scheduled meal time insulin here either. 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 INR 1.2. Albumin 3.3. Ammonia 20. Abd US showing no ascites. LFTs mildly elevated. She appears well compensated. Continue Lasix. Continue lactulose (9) Hypertension: Code(s): I10 - Essential (primary) hypertension Status: Acute Assessment and Plan: Patient's blood pressure was reviewed on 01/05 Blood pressure better controlled Will continue current medications with amlodipine and propranolol (10) Hypothyroidism: Qualifiers: Hypothyroidism type: acquired Qualified Code(s): E03.9 - Hypothyroidism, unspecified Code(s): E03.9 - Hypothyroidism, unspecified Status: Acute Assessment and Plan: TSH mildly elevated at 9.6 but better than in November. Continue Synthroid and recheck as outpatient. (11) Bipolar disorder: Qualifiers: Active/Remission status: in full remission Most recent bipolar episode type: most recent episode unspecified type Qualified Code(s):
[2023-01-05 12:46] LABS: Glucose Point of Care 97 mg/dl (65-105)
[2023-01-05 16:35] LABS: Glucose Point of Care 129 mg/dl (65-105)
[2023-01-05] MEDS: CEPHALEXIN 500 MG CAPSULE PO (17:58)
[2023-01-05 20:14] LABS: Glucose Point of Care 151 mg/dl (65-105)
[2023-01-05] MEDS: ROSUVASTATIN 10 MG TABLET 20 MG PO (20:27)
[2023-01-05] MEDS: MELATONIN 3 MG TABLET PO (20:27)
[2023-01-05] MEDS: traZODone HCL 50 MG TABLET 300 MG PO (20:32)
[2023-01-06] VITALS (16 sets, daily range): BP systolic 122–124; BP diastolic 48–69; PULSE 42–76; RESP 16–20; TEMP 36.3–36.7; O2SAT 92–97
--- NOTE | 2023-01-06 01:55 | PCRCNOTE ---
dont wake for 0200 tx if sleeping
[2023-01-06] MEDS: CEPHALEXIN 500 MG CAPSULE PO ×3 (02:30→18:03)
[2023-01-06] MEDS: LEVOTHYROXINE SODIUM 150 MCG TABLET PO (05:55)
[2023-01-06 06:11] LABS: Anion Gap 7 mmol/L (8-16); Blood Urea Nitrogen 32 mg/dL (7-17); Calcium 8.8 mg/dL (8.4-10.2); Carbon Dioxide 28 mmol/L (22-30); Chloride 99 mmol/L (98-107); Creatine Kinase 27 U/L (30-135); Estimated CRCL calculation 15 ml/min; Estimated Glomerular Filt Rate 18; Glucose 115 mg/dL (65-110); Sodium 134 mmol/L (137-145)
[2023-01-06] MEDS: ALBUTEROL SULFATE NEB 2.5 MG/3 ML INH INHALATION ×3 (07:00→20:10)
[2023-01-06] MEDS: UMECLIDINIUM/VILANTEROL 62.5-25 MCG ELLIPTA 1 PUFF INHALATION (07:00)
[2023-01-06] MEDS: IPRATROPIUM BR 0.02% INH SOLN 0.5 MG/2.5 ML VIAL INHALATION ×3 (07:00→20:10)
[2023-01-06 08:39] LABS: Glucose Point of Care 114 mg/dl (65-105)
[2023-01-06] MEDS: ENOXAPARIN 30 MG/0.3 ML SYRINGE SUB-Q (09:53)
[2023-01-06] MEDS: amLODIPine BESYLATE 5 MG TABLET 10 MG PO (09:53)
[2023-01-06] MEDS: CYANOCOBALAMIN 1,000 MCG TABLET 1000 MCG PO (09:53)
[2023-01-06] MEDS: GABAPENTIN 300 MG CAPSULE 600 MG PO ×2 (09:54→18:03)
[2023-01-06] MEDS: FUROSEMIDE 40 MG TABLET PO ×2 (09:54→18:03)
[2023-01-06] MEDS: ESCITALOPRAM OXALATE 5 MG TABLET PO (09:54)
[2023-01-06] MEDS: lamoTRIgine 50 MG TABLET PO ×2 (09:54→20:23)
[2023-01-06] MEDS: PANTOPRAZOLE 40 MG TABLET PO (09:54)
[2023-01-06] MEDS: FERROUS SULFATE 324 MG TABLET PO (09:54)
[2023-01-06] MEDS: lamoTRIgine 100 MG TABLET PO ×2 (09:54→20:23)
[2023-01-06] MEDS: TOLNAFTATE 1% POWDER 45 GM BTL 1 APPLIC TOPICAL ×2 (09:54→20:25)
[2023-01-06 12:29] LABS: Glucose Point of Care 108 mg/dl (65-105)
--- NOTE | 2023-01-06 15:18 | PC.NURSE ---
If patient is sleeping/napping she does not want to be woken up. Skipped 1300 dose of gabapentin.
--- NOTE | 2023-01-06 17:01 | PM.IMPN ---
Progress Note: A&P Assessment and Plan (1) Acute on chronic diastolic heart failure: Code(s): I50.33 - Acute on chronic diastolic (congestive) heart failure Status: Acute Assessment and Plan: Patient presents with shortness of breath and hypoxia. Chest x-ray shows mild interstitial pulmonary edema and left pleural effusion. D-dimer was mildly positive. Bilateral lower extremity venous Doppler was negative for DVT. V/Q scan was low probability for PE. She was started on IV Lasix. TTE on 11/07/2022 showing aortic stenosis (?severity), grade 2 diastolic dysfunction with preserved EF. Improving. Off O2 now. Changed to oral Lasix. Monitor fluid status, renal function and electrolytes. Continue fluid restriction (2) Cellulitis: Code(s): L03.90 - Cellulitis, unspecified Status: Acute Assessment and Plan: Possible right lower extremity. Treated with cefazolin. Changed to Keflex. (3) Foot fracture, right: Code(s): S92.901A - Unspecified fracture of right foot, initial encounter for closed fracture Status: Acute Assessment and Plan: Right foot bruising. Xray showing avulsion fracture of the medial base of the fourth middle phalanx and nondisplaced intra-articular fracture at the base of the 5th proximal phalanx. No pain to the foot. Patient informed of this finding. Rigoberto wrap 3-4 and 4-5 toes. (4) Chronic kidney disease, stage 4 (severe): Code(s): N18.4 - Chronic kidney disease, stage 4 (severe) Status: Acute Assessment and Plan: Baseline Cr runs 2.1-2.5. She remains at her baseline. Tolerating diuresis. Continue to monitor. (5) Anemia: Code(s): D64.9 - Anemia, unspecified Status: Acute Assessment and Plan: Hemoglobin chronically low. Recent iron studies noted. Soluble transferrin receptor was elevated. B12 level is normal but methylmalonic acid level is elevated. She received IV iron and IM B12. hgb stable 7-8 range. Transfuse as needed. Continue oral B12. Continue iron. (6) Chronic obstructive pulmonary disease: Code(s): J44.9 - Chronic obstructive pulmonary disease, unspecified Status: Acute Assessment and Plan: Stable. No wheezing noted today. Able to wean off O2. Doubt COPD exacerbation. Continue with nebulizer treatments. (7) Diabetic peripheral neuropathy: Code(s): E11.42 - Type 2 diabetes mellitus with diabetic polyneuropathy Status: Acute Assessment and Plan: A1c 4.5. The patient's blood glucose was reviewed on 01/06 Glucose well controlled. Continue AccuCheks covering with sliding scale. Hypoglycemia protocol available as needed. Lantus held. Continue to monitor off Lantus. She is not on her scheduled meal time insulin here either. 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 INR 1.2. Albumin 3.3. Ammonia 20. Abd US showing no ascites. LFTs mildly elevated. She appears well compensated. Having epigastric pain now. Continue Lasix. Continue lactulose. Continue Protonix. Monitor for now. (9) Hypertension: Code(s): I10 - Essential (primary) hypertension Status: Acute Assessment and Plan: Patient's blood pressure was reviewed on 01/06 Blood pressure better controlled Will continue current medications with amlodipine and propranolol. (10) Hypothyroidism: Qualifiers: Hypothyroidism type: acquired Qualified Code(s): E03.9 - Hypothyroidism, unspecified Code(s): E03.9 - Hypothyroidism, unspecified Status: Acute Assessment and Plan: TSH mildly elevated at 9.6 but better than in November. Continue Synthroid and recheck as outpatient. (11) Bipolar disorder: Qualifiers: Active/Remission status: in full remission
[2023-01-06 17:13] LABS: Glucose Point of Care 105 mg/dl (65-105)
[2023-01-06 17:21] LABS: Lipase 99 U/L (23-300)
[2023-01-06] MEDS: hydrOXYzine HCL 25 MG TABLET PO (18:06)
[2023-01-06] MEDS: ROSUVASTATIN 10 MG TABLET 20 MG PO (20:23)
[2023-01-06] MEDS: PROPRANOLOL HCL 10 MG TABLET PO (20:24)
[2023-01-06] MEDS: traZODone HCL 50 MG TABLET 300 MG PO (20:26)
[2023-01-06] MEDS: MELATONIN 3 MG TABLET PO (20:26)
[2023-01-06 20:47] LABS: Glucose Point of Care 111 mg/dl (65-105)
[2023-01-07] VITALS (12 sets, daily range): BP systolic 123–132; BP diastolic 46–60; PULSE 45–55; RESP 18–20; TEMP 36.7–36.8; O2SAT 91–97
[2023-01-07] MEDS: CEPHALEXIN 500 MG CAPSULE PO ×3 (02:01→17:03)
--- NOTE | 2023-01-07 04:12 | PCRCNOTE ---
mignon de [place] for 0200 neb tx per pt
[2023-01-07] MEDS: LEVOTHYROXINE SODIUM 150 MCG TABLET PO (05:30)
[2023-01-07] MEDS: IPRATROPIUM BR 0.02% INH SOLN 0.5 MG/2.5 ML VIAL INHALATION ×3 (08:08→21:50)
[2023-01-07] MEDS: ALBUTEROL SULFATE NEB 2.5 MG/3 ML INH INHALATION ×3 (08:08→21:50)
[2023-01-07] MEDS: UMECLIDINIUM/VILANTEROL 62.5-25 MCG ELLIPTA 1 PUFF INHALATION (08:09)
[2023-01-07 08:28] LABS: Glucose Point of Care 118 mg/dl (65-105)
[2023-01-07] MEDS: LACTULOSE 20 GM/30 ML UDC 10 GM PO ×3 (09:38→17:04)
[2023-01-07] MEDS: GABAPENTIN 300 MG CAPSULE 600 MG PO ×3 (09:38→17:03)
[2023-01-07] MEDS: FERROUS SULFATE 324 MG TABLET PO (09:39)
[2023-01-07] MEDS: amLODIPine BESYLATE 5 MG TABLET 10 MG PO (09:39)
[2023-01-07] MEDS: lamoTRIgine 100 MG TABLET PO ×2 (09:39→20:17)
[2023-01-07] MEDS: CYANOCOBALAMIN 1,000 MCG TABLET 1000 MCG PO (09:39)
[2023-01-07] MEDS: lamoTRIgine 50 MG TABLET PO ×2 (09:39→20:17)
[2023-01-07] MEDS: EUCERIN CREAM 120 GM JAR 1 APPLIC TOPICAL (09:39)
[2023-01-07] MEDS: ESCITALOPRAM OXALATE 5 MG TABLET PO (09:39)
[2023-01-07] MEDS: PANTOPRAZOLE 40 MG TABLET PO (09:39)
[2023-01-07] MEDS: TOLNAFTATE 1% POWDER 45 GM BTL 1 APPLIC TOPICAL (09:40)
[2023-01-07] MEDS: FUROSEMIDE 40 MG TABLET PO ×2 (09:40→17:03)
[2023-01-07] MEDS: hydrOXYzine HCL 25 MG TABLET PO ×2 (09:56→21:07)
[2023-01-07 12:43] LABS: Glucose Point of Care 112 mg/dl (65-105)
--- NOTE | 2023-01-07 16:42 | PM.DS ---
DS: Admitting Diagnosis Discharge Date 01/09/2023 Admitting Diagnosis Shortness of breath DS: Discharge Diagnosis Discharge Diagnosis (1) Acute on chronic diastolic heart failure: Code(s): I50.33 - Acute on chronic diastolic (congestive) heart failure Status: Acute Assessment and Plan: Patient presents with shortness of breath and hypoxia. Chest x-ray shows mild interstitial pulmonary edema and left pleural effusion. D-dimer was mildly positive. Bilateral lower extremity venous Doppler was negative for DVT. V/Q scan was low probability for PE. She was started on IV Lasix. TTE on 11/07/2022 showing aortic stenosis (?severity), grade 2 diastolic dysfunction with preserved EF. Improving. Off O2 now. Changed to oral Lasix. Monitor fluid status, renal function and electrolytes. D/c fluid restriction at this time, d/c soon (2) Cellulitis: Code(s): L03.90 - Cellulitis, unspecified Status: Acute Assessment and Plan: Possible right lower extremity. Treated with cefazolin. Changed to Keflex, end date 01/09/23 (3) Foot fracture, right: Code(s): S92.901A - Unspecified fracture of right foot, initial encounter for closed fracture Status: Acute Assessment and Plan: Right foot bruising. Xray showing avulsion fracture of the medial base of the fourth middle phalanx and nondisplaced intra-articular fracture at the base of the 5th proximal phalanx. No pain to the foot. Patient informed of this finding. Rigoberto wrap 3-4 and 4-5 toes. (4) Chronic kidney disease, stage 4 (severe): Code(s): N18.4 - Chronic kidney disease, stage 4 (severe) Status: Acute Assessment and Plan: Baseline Cr runs 2.1-2.5, 2.6 today, stop fluid restriction. She remains at her baseline. Tolerating oral diuresis. Continue to monitor. (5) Anemia: Code(s): D64.9 - Anemia, unspecified Status: Acute Assessment and Plan: Hemoglobin chronically low. Recent iron studies noted. Soluble transferrin receptor was elevated. B12 level is normal but methylmalonic acid level is elevated. She received IV iron and IM B12. hgb stable 7-8 range. Transfuse as needed. Continue oral B12. Continue iron. (6) Chronic obstructive pulmonary disease: Code(s): J44.9 - Chronic obstructive pulmonary disease, unspecified Status: Acute Assessment and Plan: Stable. No wheezing noted today. Able to wean off O2. Doubt COPD exacerbation. Continue with nebulizer treatments. (7) Diabetic peripheral neuropathy: Code(s): E11.42 - Type 2 diabetes mellitus with diabetic polyneuropathy Status: Acute Assessment and Plan: A1c 4.5. 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 INR 1.2. Albumin 3.3. Ammonia 20. Abd US showing no ascites. LFTs mildly elevated. She appears well compensated. Asymptomatic. Continue Lasix. Continue lactulose. Continue Protonix. Recheck labs tomorrow (9) Hypertension: Code(s): I10 - Essential (primary) hypertension Status: Acute Assessment and Plan: Blood pressure better controlled Will continue current medications with amlodipine and propranolol. (10) Hypothyroidism: Qualifiers: Hypothyroidism type: acquired Qualified Code(s): E03.9 - Hypothyroidism, unspecified Code(s): E03.9 - Hypothyroidism, unspecified Status: Acute Assessment and Plan: TSH mildly elevated at 9.6 but better than in November. Continue Synthroid and recheck as outpatient. (11) Bipolar disorder: Qualifiers: Active/Remission status: in full remission Most recent bipolar episode type: most recent episode unspecified type Qualified Code(s): F31.70 - Bipolar disorder, currently in remission, most
[2023-01-07 17:19] LABS: Glucose Point of Care 112 mg/dl (65-105)
[2023-01-07] MEDS: ROSUVASTATIN 10 MG TABLET 20 MG PO (20:17)
[2023-01-07] MEDS: PROPRANOLOL HCL 10 MG TABLET PO (20:17)
[2023-01-07 20:51] LABS: Glucose Point of Care 132 mg/dl (65-105)
[2023-01-07] MEDS: MELATONIN 3 MG TABLET PO (21:07)
[2023-01-07] MEDS: traZODone HCL 50 MG TABLET 300 MG PO (21:07)
[2023-01-08] VITALS (10 sets, daily range): BP systolic 121–150; BP diastolic 48–72; PULSE 46–60; RESP 16–20; TEMP 36.7–36.9; O2SAT 92–96
[2023-01-08] MEDS: CEPHALEXIN 500 MG CAPSULE PO ×3 (01:24→17:19)
--- NOTE | 2023-01-08 04:51 | PCRCNOTE ---
Patient did not want to be awakened for 0200 updraft treatment. If pt woke up short of breath, she was instructed to call RN, RN to call RT.
[2023-01-08 05:30] LABS: Basophils Percent Auto 1.1 % (0.2-1.2); Eosinophils Absolute Auto 0.2 K/mm3 (0-0.3); Eosinophils Percent Auto 5.1 % (0-4.4); Hematocrit 27.5 % (37.0-47.0); Hemoglobin 8.5 g/dL (12.0-15.0); Immature Granulocyte Absolute 0.02 K/mm3 (0.00-0.031); Immature Granulocyte Percent A 0.6 % (0-0.5); Immature Platelet Fraction Pct 4.1 % (0.9-11.2); Lymphocytes Absolute Auto 0.91 K/mm3 (0.9-3.2); Lymphocytes Percent Auto 25.6 % (18.3-44.2); Mean Corpuscular HGB Conc 30.9 g/dl (32-36); Mean Corpuscular Hemoglobin 30.5 pg (26-34); Mean Corpuscular Volume 98.6 fl (80-100); Mean Platelet Volume 9.9 fl (7.4-10.4); Monocytes Absolute Auto 0.3 K/mm3 (0.1-0.6); Monocytes Percent Auto 8.7 % (2.6-8.5); Neutrophils Absolute Auto 2.1 K/mm3 (1.3-6.7); Neutrophils Percent Auto 58.9 % (45.5-73.1); Platelet Count Result 114 k/mm3 (150-375); Red Blood Count 2.79 M/mm3 (4.2-5.4); Red Cell Distribution Width 19.6 % (11.5-14.5); White Blood Count 3.6 K/mm3 (4.5-10.0)
[2023-01-08] MEDS: hydrOXYzine HCL 25 MG TABLET PO ×2 (05:30→21:39)
[2023-01-08] MEDS: LEVOTHYROXINE SODIUM 150 MCG TABLET PO (05:30)
[2023-01-08 05:42] LABS: Alanine Aminotransferase 24 U/L (6-35); Albumin Level 3.9 g/dL (3.5-5.1); Alkaline Phosphatase 457 U/L (38-126); Anion Gap 5 mmol/L (8-16); Aspartate Amino Transferase 58 U/L (14-36); Bilirubin,Total 0.4 mg/dL (0.2-1.3); Blood Urea Nitrogen 38 mg/dL (7-17); Calcium 8.3 mg/dL (8.4-10.2); Carbon Dioxide 28 mmol/L (22-30); Chloride 99 mmol/L (98-107); Estimated CRCL calculation 14 ml/min; Estimated Glomerular Filt Rate 17; Glucose 115 mg/dL (65-110); Potassium 4.1 mmol/L (3.4-5.0); Sodium 132 mmol/L (137-145)
[2023-01-08] MEDS: IPRATROPIUM BR 0.02% INH SOLN 0.5 MG/2.5 ML VIAL INHALATION ×3 (08:04→21:45)
[2023-01-08] MEDS: UMECLIDINIUM/VILANTEROL 62.5-25 MCG ELLIPTA 1 PUFF INHALATION (08:04)
[2023-01-08] MEDS: ALBUTEROL SULFATE NEB 2.5 MG/3 ML INH INHALATION ×3 (08:04→21:45)
[2023-01-08 08:46] LABS: Glucose Point of Care 106 mg/dl (65-105)
[2023-01-08] MEDS: LACTULOSE 20 GM/30 ML UDC 10 GM PO (09:08)
[2023-01-08] MEDS: lamoTRIgine 100 MG TABLET PO ×2 (09:09→19:43)
[2023-01-08] MEDS: lamoTRIgine 50 MG TABLET PO ×2 (09:09→19:43)
[2023-01-08] MEDS: amLODIPine BESYLATE 5 MG TABLET 10 MG PO (09:09)
[2023-01-08] MEDS: ESCITALOPRAM OXALATE 5 MG TABLET PO (09:09)
[2023-01-08] MEDS: GABAPENTIN 300 MG CAPSULE 600 MG PO ×3 (09:09→17:18)
[2023-01-08] MEDS: FERROUS SULFATE 324 MG TABLET PO (09:09)
[2023-01-08] MEDS: CYANOCOBALAMIN 1,000 MCG TABLET 1000 MCG PO (09:09)
[2023-01-08] MEDS: FUROSEMIDE 40 MG TABLET PO (09:09)
[2023-01-08] MEDS: ENOXAPARIN 30 MG/0.3 ML SYRINGE SUB-Q (09:10)
[2023-01-08] MEDS: PANTOPRAZOLE 40 MG TABLET PO (09:10)
[2023-01-08] MEDS: TOLNAFTATE 1% POWDER 45 GM BTL 1 APPLIC TOPICAL ×2 (09:11→19:45)
[2023-01-08] MEDS: EUCERIN CREAM 120 GM JAR 1 APPLIC TOPICAL (09:11)
--- NOTE | 2023-01-08 12:08 | PCNWS ---
Weekly nutritional screen. Patient is tolerating current diet with adequate intake. No weight loss reported. No nutritional needs at this time.
[2023-01-08 12:29] LABS: Glucose Point of Care 91 mg/dl (65-105)
[2023-01-08 16:45] LABS: Glucose Point of Care 107 mg/dl (65-105)
[2023-01-08] MEDS: traZODone HCL 50 MG TABLET 300 MG PO (19:41)
[2023-01-08] MEDS: PROPRANOLOL HCL 10 MG TABLET PO (19:41)
[2023-01-08] MEDS: MELATONIN 3 MG TABLET PO (19:42)
[2023-01-08] MEDS: ROSUVASTATIN 10 MG TABLET 20 MG PO (19:43)
[2023-01-08 21:28] LABS: Glucose Point of Care 128 mg/dl (65-105)
[2023-01-09] VITALS (7 sets, daily range): BP systolic 105–128; BP diastolic 55–58; PULSE 55–74; RESP 18–20; TEMP 36.3–37.1; O2SAT 92–96
[2023-01-09] MEDS: LEVOTHYROXINE SODIUM 150 MCG TABLET PO (06:20)
[2023-01-09] MEDS: GABAPENTIN 300 MG CAPSULE 600 MG PO ×2 (09:17→12:53)
[2023-01-09] MEDS: PROPRANOLOL HCL 10 MG TABLET PO (09:17)
[2023-01-09] MEDS: ESCITALOPRAM OXALATE 5 MG TABLET PO (09:17)
[2023-01-09] MEDS: lamoTRIgine 100 MG TABLET PO (09:17)
[2023-01-09] MEDS: FUROSEMIDE 40 MG TABLET PO (09:17)
[2023-01-09] MEDS: CYANOCOBALAMIN INJ 1,000 MCG/ML VIAL 1000 MCG IM (09:18)
[2023-01-09] MEDS: CYANOCOBALAMIN 1,000 MCG TABLET 1000 MCG PO (09:18)
[2023-01-09] MEDS: amLODIPine BESYLATE 5 MG TABLET 10 MG PO (09:18)
[2023-01-09] MEDS: ENOXAPARIN 30 MG/0.3 ML SYRINGE SUB-Q (09:18)
[2023-01-09] MEDS: PANTOPRAZOLE 40 MG TABLET PO (09:18)
[2023-01-09] MEDS: FERROUS SULFATE 324 MG TABLET PO (09:18)
[2023-01-09] MEDS: TOLNAFTATE 1% POWDER 45 GM BTL 1 APPLIC TOPICAL (09:19)
[2023-01-09] MEDS: lamoTRIgine 50 MG TABLET PO (09:19)
[2023-01-09] MEDS: EUCERIN CREAM 120 GM JAR 1 APPLIC TOPICAL (09:19)
[2023-01-09 09:32] LABS: Glucose Point of Care 119 mg/dl (65-105)
[2023-01-09] MEDS: hydrOXYzine HCL 25 MG TABLET PO (09:33)
[2023-01-09 10:37] LABS: Basophils Percent Auto 1.1 % (0.2-1.2); Eosinophils Absolute Auto 0.2 K/mm3 (0-0.3); Eosinophils Percent Auto 4.8 % (0-4.4); Hematocrit 27.2 % (37.0-47.0); Hemoglobin 8.5 g/dL (12.0-15.0); Immature Granulocyte Absolute 0.02 K/mm3 (0.00-0.031); Immature Granulocyte Percent A 0.6 % (0-0.5); Immature Platelet Fraction Pct 4.2 % (0.9-11.2); Lymphocytes Absolute Auto 0.84 K/mm3 (0.9-3.2); Lymphocytes Percent Auto 23.8 % (18.3-44.2); Mean Corpuscular HGB Conc 31.3 g/dl (32-36); Mean Corpuscular Hemoglobin 30.4 pg (26-34); Mean Corpuscular Volume 97.1 fl (80-100); Mean Platelet Volume 10.5 fl (7.4-10.4); Monocytes Absolute Auto 0.2 K/mm3 (0.1-0.6); Monocytes Percent Auto 6.8 % (2.6-8.5); Neutrophils Absolute Auto 2.2 K/mm3 (1.3-6.7); Neutrophils Percent Auto 62.9 % (45.5-73.1); Platelet Count Result 97 k/mm3 (150-375); Red Cell Distribution Width 18.8 % (11.5-14.5); White Blood Count 3.5 K/mm3 (4.5-10.0)
[2023-01-09 10:43] LABS: Alanine Aminotransferase 35 U/L (6-35); Alkaline Phosphatase 514 U/L (38-126); Anion Gap 7 mmol/L (8-16); Aspartate Amino Transferase 82 U/L (14-36); Bilirubin,Total 0.4 mg/dL (0.2-1.3); Blood Urea Nitrogen 44 mg/dL (7-17); Calcium 8.5 mg/dL (8.4-10.2); Carbon Dioxide 26 mmol/L (22-30); Chloride 99 mmol/L (98-107); Estimated CRCL calculation 14 ml/min; Estimated Glomerular Filt Rate 16; Glucose 175 mg/dL (65-110); Potassium 4.2 mmol/L (3.4-5.0); Sodium 132 mmol/L (137-145)
[2023-01-09 12:24] LABS: Glucose Point of Care 90 mg/dl (65-105)
[2023-01-09 14:18] LABS: EDCOVIDSCREEN Negative (Negative)
[2023-01-09] MEDS: IPRATROPIUM BR 0.02% INH SOLN 0.5 MG/2.5 ML VIAL INHALATION (14:34)
[2023-01-09] MEDS: ALBUTEROL SULFATE NEB 2.5 MG/3 ML INH INHALATION (14:34)
== END 2023-01-09 16:35 | DRG 291 ==
LOC: ANHED 14:11 → ANH3MED 17:11
PROVIDERS: Internal Medicine; Nurse Practitioner; Physician Assistant; Admitting Provider Family Medicine; Emergency Provider Emergency Medicine; PCP Internal Medicine; Visit Provider Student in an Organized Health Care Education/Training Program
DX: I13.0 Hypertensive heart and chronic kidney disease with heart failure and stage 1 through stage 4 chronic kidney disease, or unspecified chronic kidney disease (principal); I50.33 Acute on chronic diastolic (congestive) heart failure; N18.4 Chronic kidney disease, stage 4 (severe); L03.115 Cellulitis of right lower limb; E11.22 Type 2 diabetes mellitus with diabetic chronic kidney disease; Z20.822 Contact with and (suspected) exposure to COVID-19; D63.1 Anemia in chronic kidney disease; J44.9 Chronic obstructive pulmonary disease, unspecified; E11.42 Type 2 diabetes mellitus with diabetic polyneuropathy; K75.81 Nonalcoholic steatohepatitis (NASH); S92.911A Unspecified fracture of right toe(s), initial encounter for closed fracture; S90.31XA Contusion of right foot, initial encounter; K74.60 Unspecified cirrhosis of liver; E03.9 Hypothyroidism, unspecified; F31.9 Bipolar disorder, unspecified; I35.0 Nonrheumatic aortic (valve) stenosis; E78.5 Hyperlipidemia, unspecified; K58.9 Irritable bowel syndrome, unspecified; M81.0 Age-related osteoporosis without current pathological fracture; Z66 Do not resuscitate; Z86.73 Personal history of transient ischemic attack (TIA), and cerebral infarction without residual deficits; Z90.49 Acquired absence of other specified parts of digestive tract; Z98.42 Cataract extraction status, left eye; Z98.41 Cataract extraction status, right eye; Z96.1 Presence of intraocular lens; Z87.891 Personal history of nicotine dependence; Z79.4 Long term (current) use of insulin; X58.XXXA Exposure to other specified factors, initial encounter
CPT/HCPCS: 36415; 36600; 71045; 73630; 76705; 78580; 80048; 80053; 80069; 82140; 82375; 82550; 82805; 82948; 83036; 83050; 83605; 83690; 83735; 83880; 84439; 84443; 84480; 85014; 85018; 85025; 85055; 85380; 85610; 85730; 86850; 86900; 86901; 87426; 87636; 93005; 93971; 94640; 96372; 96374; 97110; 97161; 97165; 97530; 97535; 99291; A9270; A9540; C9803; J0690; J1650; J1756; J1815; J1940; J3420; Q5106

== ENCOUNTER 2023-01-12 07:13 | Outpatient (CLI) | payer OTHER, SELFPAY ==
--- NOTE | 2023-01-09 17:01 | PC.NURSE ---
SPOKE WITH DAUGHTER IN LAW [place] PT SISTER WILL BE BRINGING PATIENT FOR PATENCY CAPSULE ON Thursday01/12/2023, INSTRUCTIONS EMAILED TO DAUGHTER IN LAW AND REVIEWED.
--- NOTE | 2023-01-12 07:58 | SUR.OPER ---
Patient brought to GI Lab. Instructions for patient undergoing Capsule Endoscopy reviewed with patient. Consent form signed. Sensor array applied to patient's abdomen and connected to recorded. Patient swallowed capsule with 8 ozs of water. Patient instructed they may have clear liquids at 0935 this AM and eat or drink at 1135 this AM. Patient instructed to call [phone] or to return to the hospital if any nausea and vomiting or abdominal pain is experienced. SCRIPT AND INSTRUCTION FOR XRAY GIVEN AND EXPLAINED TO PT AND TEACHING PASTOR
== END 2023-01-12 07:14 | disposition home or self-care (01) ==
PROVIDERS: PCP Internal Medicine; Visit Provider Internal Medicine Gastroenterology
PROC: 0DJ07ZZ Inspection of Upper Intestinal Tract, Via Natural or Artificial Opening (ICD-10-PCS; CPT 91110; principal; 2023-01-12 07:00)
DX: D64.9 Anemia, unspecified (principal); Z01.812 Encounter for preprocedural laboratory examination
CPT/HCPCS: 91110

== ENCOUNTER 2023-01-13 10:08 | Observation (INO) | payer OTHER, SELFPAY ==
[2023-01-13] VITALS (40 sets, daily range): BP systolic 96–136; BP diastolic 30–66; PULSE 39–61; RESP 12–24; TEMP 36.4–36.7; O2SAT 90–100; BMI 29.7
--- NOTE | ~2023-01-13 | XR_ITS ---
XR chest 2V 01/13/2023 14:51 Indication: Shortness of breath and weakness. Procedure: AP and lateral view of the chest Comparison: Comparison to multiple prior studies sequentially, with oldest reviewed study dated 12/15. Findings: There are interstitial infiltrates of the lower lungs. Stable cardiomediastinal silhouette. No significant pleural effusion. No pneumothorax. Impression: 1: Subtle bibasilar interstitial infiltrates which may represent edema or less likely pneumonia. Reviewed, dictated and finalized at location A. [facility] Impression: 1: Subtle bibasilar interstitial infiltrates which may represent edema or less likely pneumonia.
--- NOTE | ~2023-01-13 | XR_ITS ---
EXAMINATION: XR abdomen/kub 1V DATE: 01/14/2023 15:16 INDICATION: Anemia. TECHNIQUE: A supine view of the abdomen on 2 radiographs was obtained. COMPARISON: Abdomen radiograph 12/13/2022 FINDINGS: There are no dilated loops of bowel. There is a small volume of stool in the colon. Surgica l clips in the right upper quadrant are likely from cholecystectomy. IMPRESSION: 1. Normal bowel gas pattern. Reviewed, dictated and finalized at location A. [facility]
--- NOTE | 2023-01-13 10:12 | ECG_ITS ---
Measurements Intervals [place] Rate: 39 P: 74 NM: 218 QRS: -61 QRSD: 174 T: 16 QT: 591 QTc: 476 Interpretive Statements SINUS BRADYCARDIA WITH FIRST DEGREE AV BLOCK MARKED LEFT AXIS DEVIATION [QRS AXIS < -30] RIGHT BUNDLE BRANCH BLOCK [120+ ms QRS DURATION, UPRIGHT V1, 40+ ms S IN I/aVL/V4/V5/V6] POSSIBLE OLD ANTEROSEPTAL MYOCARDIAL INFARCTION FIRST DEGREE AV BLOCK NOW PRESENT LEFT-AXIS DEVIATION NOW PRESENT Electronically Signed On 01-13-2023 16:23:38 [facility] GEOLOGIST by Leonila Parker M.D.
[2023-01-13 10:45] LABS: Basophils Absolute Auto 0.1 K/mm3 (0.0-0.1); Basophils Percent Auto 1.1 % (0.2-1.2); Eosinophils Absolute Auto 0.2 K/mm3 (0-0.3); Eosinophils Percent Auto 3.2 % (0-4.4); Hematocrit 28.6 % (37.0-47.0); Hemoglobin 8.9 g/dL (12.0-15.0); Immature Granulocyte Absolute 0.02 K/mm3 (0.00-0.031); Immature Granulocyte Percent A 0.4 % (0-0.5); Lymphocytes Absolute Auto 0.92 K/mm3 (0.9-3.2); Lymphocytes Percent Auto 19.7 % (18.3-44.2); Mean Corpuscular HGB Conc 31.1 g/dl (32-36); Mean Corpuscular Hemoglobin 30.8 pg (26-34); Mean Platelet Volume 10.9 fl (7.4-10.4); Monocytes Absolute Auto 0.3 K/mm3 (0.1-0.6); Monocytes Percent Auto 5.8 % (2.6-8.5); Neutrophils Absolute Auto 3.3 K/mm3 (1.3-6.7); Neutrophils Percent Auto 69.8 % (45.5-73.1); Platelet Count Result 116 k/mm3 (150-375); Red Blood Count 2.89 M/mm3 (4.2-5.4); Red Cell Distribution Width 17.9 % (11.5-14.5); White Blood Count 4.7 K/mm3 (4.5-10.0)
[2023-01-13 10:54] LABS: Alanine Aminotransferase 34 U/L (6-35); Albumin Level 4.4 g/dL (3.5-5.1); Alkaline Phosphatase 551 U/L (38-126); Anion Gap 9 mmol/L (8-16); Aspartate Amino Transferase 61 U/L (14-36); Bilirubin,Total 0.5 mg/dL (0.2-1.3); Blood Urea Nitrogen 39 mg/dL (7-17); Calcium 8.4 mg/dL (8.4-10.2); Carbon Dioxide 24 mmol/L (22-30); Chloride 105 mmol/L (98-107); Estimated CRCL calculation 14 ml/min; Estimated Glomerular Filt Rate 17; Glucose 116 mg/dL (65-110); Potassium 4.5 mmol/L (3.4-5.0); Sodium 138 mmol/L (137-145)
--- NOTE | 2023-01-13 13:13 | ED.GENADULT ---
HPI - General Adult General Chief complaint: Arrhythmia/Palpitations Stated complaint: low HR Time Seen by Provider: 01/13/23 11:53 History of Present Illness HPI narrative: 77-year-old female presents to the emergency department for evaluation for generalized weakness that started this morning. Patient states for the last few days she has felt fine patient reports that she woke up this morning she had some increased generalized weakness. Patient did have follow-up with her oncologist today and was found to have a low heart rate and patient was referred to the emergency department. Patient does have a history of bradycardia. Patient is currently being followed by GI for anemia as well. Patient denies any chest pain or shortness of breath. Patient denies any active bleeding. Patient denies any fevers nausea or vomiting. Patient does have a history of bradycardia and is on propranolol. Patient has history of high cholesterol hypertension Related Data Home Medications Medication Instructions Recorded Confirmed asenapine maleate 5 mg sublingual 5 mg sublingual Q12H 01/04/20 01/13/23 tablet (Saphris) escitalopram oxalate 5 mg tablet 5 mg PO DAILY 08/21/21 01/13/23 rosuvastatin 20 mg tablet 20 mg PO QHS 08/21/21 01/13/23 trazodone 100 mg tablet 300 mg PO HS 08/21/21 01/13/23 glucagon HCl 1 mg solution for 1 mg subcut Q20M PRN Hypoglycemia 02/13/22 01/13/23 injection (Glucagon (HCl) Emergency Kit) sodium chloride 0.65 % nasal spray 1 spray intranasal BID PRN Dry 02/13/22 01/13/23 aerosol (Saline Mist) Nasal Passages hydroxyzine HCl 25 mg tablet 25 mg PO Q8H PRN Itching 08/25/22 01/13/23 acetaminophen 500 mg tablet 500 mg PO BID PRN Pain 09/14/22 01/13/23 ferrous sulfate 325 mg (65 mg 325 mg PO DAILY 12/22/22 01/13/23 iron) tablet gabapentin 600 mg tablet 600 mg PO TID 12/22/22 01/13/23 pantoprazole 40 mg tablet,delayed 40 mg PO QAM 12/22/22 01/13/23 release propranolol 10 mg tablet 10 mg PO Q12H 12/22/22 01/13/23 lactulose 20 gram/30 mL oral 10 g PO TID 01/01/23 01/13/23 solution Allergies Allergy/AdvReac Type Severity Reaction Status Date / Time alendronate sodium Allergy Unknown Verified 01/13/23 09:34 amantadine Allergy Unknown Verified 01/13/23 09:34 benztropine Allergy Unknown Verified 01/13/23 09:34 chlorpromazine Allergy Unknown Verified 01/13/23 09:34 levofloxacin Allergy Unknown Verified 01/13/23 09:34 Macrolide Antibiotics Allergy Unknown Verified 01/13/23 09:34 mirtazapine Allergy Unknown Verified 01/13/23 09:34 Quinolones Allergy Unknown Verified 01/13/23 09:34 topiramate Allergy Unknown Verified 01/13/23 09:34 Review of Systems Review of Systems: CONSTITUTIONAL: See HPI EYES: Denies visual changes, redness, or discharge. ENT: Denies rhinorrhea, congestion, sore throat, or otalgia. CARDIOVASCULAR: Denies chest pain, palpitations, or edema. RESPIRATORY: Denies cough or dyspnea. GASTROINTESTINAL: Denies abdominal pain, nausea, vomiting, or diarrhea. GENITOURINARY: Denies dysuria or hematuria. SKIN: Denies rash or itching. MUSCULOSKELETAL: Denies back pain, joint pain, or myalgia. NEUROLOGIC: Denies headache, numbness, or weakness. [facility] Past Medical History Medical History Acute on chronic anemia Acute on chronic diastolic heart failure Acute spont intraparenchymal hemorrhage assoc w/ hypertension Anemia in chronic kidney disease (CKD) Anxiety Aortic stenosis Moderate on echocardiogram in November 2021. Arthritis Asthma Bipolar disorder Cerebrovascular accident Chronic kidney disease, stage 4 (severe) Chronic obstructive pulmonary disease PFTs 06/28/2021: Moderate obstructive abnormality, moderate decreased diffusion capacity. 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 COPD (chronic obstructive pulmonary disease) CVA (cerebrovascular accident) (~12/2019) Depression Diabetes mellitus Diabetic peripheral neuropat
[2023-01-13 13:48] LABS: Influenza A QL RT-PCR Negative (Negative); Influenza B QL RT-PCR Negative (Negative); RSV RNA, RT-PCR Negative (Negative); SARS-CoV-2 RNA PCR Negative
--- NOTE | 2023-01-13 17:35 | PM.IMHP ---
H&P: HPI History of Present Illness Date/Time: 01/13/23 17:35 Chief Complaint: Bradycardia Narrative: This is a 77-year-old female patient who is well known to the hospitalist group. The patient came to the emergency room with complaints of generalized weakness that started this morning. The patient stated she woke up this morning and had generalized weakness. The patient had a follow-up with her oncologist today and she was found the have a low heart rate and the patient was referred to the emergency room. The patient is awake and talking without difficulty. The patient has no complaints of chest pain or shortness of breath. She has no active bleeding. She denies any fever chills. The patient does have a history of having bradycardia and is on propranolol. The patient's heart rate is in the 50s when she is awakened down in the 40s when she is sleeping. Her hemoglobin is 8.9 which is her baseline. Her platelets are 116 which is improved from her baseline. Her creatinine is 2.7 which is her baseline. Estimated GFR 17. She is negative for influenza a B COVID and RSV. The patient is being admitted to observation status on the date of service of 01/13/2023. Review of Systems Review of Systems: See HPI All systems reviewed & are unremarkable except as noted in HPI and below Constitutional: Constitutional: Reports as per HPI and Reports no additional constitutional complaints Eyes: Eyes: Reports as per HPI and Reports no additional eye complaints ENT: Reports system reviewed and no additional complaints, except as documented and Reports Normal hearing present Cardiovascular: Cardiovascular: Reports no additional cardiovascular complaints Respiratory: Respiratory: Reports no additional respiratory complaints and Reports no additional respiratory complaints Gastrointestinal: Gastrointestinal: Reports as per HPI and Reports no additional gastrointestinal complaints Musculoskeletal: Musculoskeletal: Reports no additional musculoskeletal complaints Integumentary/Breasts: Skin/Breast: Reports system reviewed and no additional complaints, except as docu and Reports as per HPI Neurologic: Reports system reviewed and no additional complaints, except as documented, Reports as per HPI and Reports Normal hearing present Psychiatric: Psychiatric: Reports no additional psychiatric complaints and Reports as per HPI Endocrine: Endocrine: Reports no additional endocrine complaints Hematologic/Lymphatic: Hematologic/Lymphatic: Reports no additional hematologic/lymphatic complaints Allergic/Immunologic: Allergic/Immunologic: Reports no additional allergic/immunologic complaints [facility] Past Medical History Medical History Acute on chronic anemia Acute on chronic diastolic heart failure Acute spont intraparenchymal hemorrhage assoc w/ hypertension Anemia in chronic kidney disease (CKD) Anxiety Aortic stenosis Moderate on echocardiogram in November 2021. Arthritis Asthma Bipolar disorder Cerebrovascular accident Chronic kidney disease, stage 4 (severe) Chronic obstructive pulmonary disease PFTs 06/28/2021: Moderate obstructive abnormality, moderate decreased diffusion capacity. 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
--- NOTE | 2023-01-13 18:56 | ADMGEN ---
This patient, Nisha Sigala, was admitted to Medical Room 257-01. Patient/family oriented to hospital policies and general routines including ID bracelet, bed and alarms, visiting hours, pain management, procedures, bathroom and other care routines, personal items, smoking policy, room service/diet, and visiting hours. Information on how to activate the Rapid Response Team has been discussed. Patient/Family are encouraged to report perceived risks to care and to ask questions if they do not understand what they are told or what they should do.
[2023-01-14] VITALS (13 sets, daily range): BP systolic 100–126; BP diastolic 38–49; PULSE 40–53; RESP 12–18; TEMP 36.6–36.9; O2SAT 97–100
--- NOTE | 2023-01-14 | ECHO_ITS ---
Patient Info Name: Nisha Sigala Age: 77 years : 1945 Gender: Female Ht: 60 in Wt: 152 lbs BSA: 1.73 m2 HR: 58 bpm BP: 110 / 38 mmHg Heart Rhythm: Bradycardia Technical Quality: Fair Exam Date: 01/14/2023 2:36 PM Exam Location: [facility] Pulmonary Exam Room: 257 Patient Status: Outpatient Admit Date: 01/13/2023 Staff Ordering Physician: Berna Rick PA-C Medical Receptionist: Kaylah Mckinney RDCS Attending Provider: Chester Killian MD Referring Physician: Prabhjot MIKE; Exam Type: CA echo doppler color flow Study Info Indications - bradycardia hx/o chf Complete two-dimensional, color flow and Doppler transthoracic echocardiogram is performed. Summary 1. Complete two-dimensional, color flow and Doppler transthoracic echocardiogram is performed. 2. Left ventricular chamber dimension is normal. 3. Left ventricular systolic function is normal, estimated at 65-70%. 4. There is mildly increased left ventricular wall thickness. 5. Right ventricular systolic function is normal. 6. Left atrial chamber dimension is severely enlarged. 7. Right atrial chamber dimension is moderately enlarged. 8. There is moderate aortic valve calcification. 9. There is moderate aortic valve stenosis with a peak velocity of 320 cm/s, mean gradient of 24 mmHg, and aortic valve area of 1.0 cm2. 10. The mitral valve has thickened leaflets. 11. The mitral valve annulus is mildly calcified. 12. There is mild mitral valve regurgitation. 13. There is mild tricuspid valve regurgitation. 14. Normal inferior vena cava with >50% collapse upon inspiration consistent with normal right atrial pressure, 3 mmHg. 15. There is trivial pericardial effusion. Left Ventricle Left ventricular chamber dimension is normal. Left ventricular systolic function is normal, estimated at 65-70%. There is mildly increased left ventricular wall thickness. Right Ventricle Right ventricular chamber dimension is normal. Right ventricular systolic function is normal. Left Atria Left atrial chamber dimension is severely enlarged. Right Atria Right atrial chamber dimension is moderately enlarged. Atrial Septum Intact interatrial septum visualized by color flow imaging. Aortic Valve There is moderate aortic valve stenosis with a peak velocity of 320 cm/s, mean gradient of 24 mmHg, and aortic valve area of 1.0 cm2. There is no aortic valve regurgitation. There is moderate aortic valve calcification. Pulmonic Valve The pulmonic valve is not well visualized. There is no pulmonic regurgitation. Mitral Valve The mitral valve has thickened leaflets. There is no mitral valve stenosis. There is mild mitral valve regurgitation. The mitral valve annulus is mildly calcified. Tricuspid Valve The tricuspid valve leaflets are normal. There is mild tricuspid valve regurgitation. Pericardium/Pleural There is trivial pericardial effusion. Inferior Vena Cava Normal inferior vena cava with >50% collapse upon inspiration consistent with normal right atrial pressure, 3 mmHg. Aorta The aortic root size at the sinus of Valsalva is normal. Left Ventricular Outflow Tract Name Value Normal LVOT 2D LVOT Diameter 2.
[2023-01-14] MEDS: traZODone HCL 50 MG TABLET 300 MG PO ×2 (00:58→21:49)
[2023-01-14] MEDS: ROSUVASTATIN 10 MG TABLET 20 MG PO ×2 (00:58→20:22)
[2023-01-14] MEDS: GABAPENTIN 300 MG CAPSULE 600 MG PO ×4 (00:59→16:04)
[2023-01-14] MEDS: lamoTRIgine 100 MG TABLET PO ×3 (00:59→20:22)
[2023-01-14] MEDS: lamoTRIgine 50 MG TABLET PO ×3 (00:59→20:22)
[2023-01-14] MEDS: MELATONIN 3 MG TABLET PO ×2 (01:00→21:50)
[2023-01-14 06:24] LABS: Basophils Percent Auto 1.1 % (0.2-1.2); Eosinophils Absolute Auto 0.1 K/mm3 (0-0.3); Eosinophils Percent Auto 4.1 % (0-4.4); Hematocrit 25.2 % (37.0-47.0); Hemoglobin 7.8 g/dL (12.0-15.0); Immature Granulocyte Absolute 0.01 K/mm3 (0.00-0.031); Immature Granulocyte Percent A 0.4 % (0-0.5); Lymphocytes Absolute Auto 0.77 K/mm3 (0.9-3.2); Lymphocytes Percent Auto 28.9 % (18.3-44.2); Mean Corpuscular Hemoglobin 30.5 pg (26-34); Mean Corpuscular Volume 98.4 fl (80-100); Mean Platelet Volume 10.4 fl (7.4-10.4); Monocytes Absolute Auto 0.2 K/mm3 (0.1-0.6); Neutrophils Absolute Auto 1.6 K/mm3 (1.3-6.7); Neutrophils Percent Auto 59.5 % (45.5-73.1); Platelet Count Result 102 k/mm3 (150-375); Red Blood Count 2.56 M/mm3 (4.2-5.4); Red Cell Distribution Width 17.7 % (11.5-14.5); White Blood Count 2.7 K/mm3 (4.5-10.0)
[2023-01-14 06:32] LABS: Hemoglobin A1C 4.7 % (<5.7)
[2023-01-14 06:33] LABS: Lactic Acid Reflex 0.8 mmol/L (0.7-2.0)
[2023-01-14] MEDS: LEVOTHYROXINE SODIUM 150 MCG TABLET PO (06:35)
[2023-01-14 06:47] LABS: Alanine Aminotransferase 27 U/L (6-35); Albumin Level 3.7 g/dL (3.5-5.1); Alkaline Phosphatase 437 U/L (38-126); Anion Gap 6 mmol/L (8-16); Aspartate Amino Transferase 46 U/L (14-36); Bilirubin,Total 0.4 mg/dL (0.2-1.3); Blood Urea Nitrogen 37 mg/dL (7-17); Calcium 8.1 mg/dL (8.4-10.2); Carbon Dioxide 23 mmol/L (22-30); Chloride 110 mmol/L (98-107); Estimated CRCL calculation 16 ml/min; Estimated Glomerular Filt Rate 21; Glucose 98 mg/dL (65-110); Phosphorus 3.7 mg/dL (2.5-4.5); Potassium 4.4 mmol/L (3.4-5.0); Sodium 139 mmol/L (137-145)
--- NOTE | 2023-01-14 08:24 | PM.IMPN ---
Progress Note: A&P Assessment and Plan (1) Generalized weakness: Code(s): R53.1 - Weakness Status: Acute Assessment and Plan: Patient came from home and presented to the ER with generalized weakness. Chest XR showed edema. BNP ordered. Pt has hx of CHF. Echo on 11/07/22 showed aortic stenosis, grade 2 diastolic function, left atrial enlargement and trivial mitral regurg. PT and OT have been consulted housing coordinator has been consulted for possible placement (2) Bradycardia, sinus: Code(s): R00.1 - Bradycardia, unspecified Status: Acute Assessment and Plan: Pt has history of bradycardia but not with HR in the 30s. Patient states that she is having some mild lightheadedness but no other complaints at this time. Propranolol and Norvasc are being held. TSH elevated at 8.4, free T4 and total T3 normal. Subclinical. Most likely not the source of bradycardia. Orthostatics ordered. q shift Cardiology consulted (3) Anemia: Code(s): D64.9 - Anemia, unspecified Status: Acute Assessment and Plan: The patient is at her baseline. It was reported that the patient does follow with Oncology Hematology for epo injections Continue with ferrous sulfate. Consider ordering anemia labs if H&H drops. (4) Congestive heart failure (CHF): Qualifiers: Heart failure chronicity: acute on chronic Heart failure type: unspecified Qualified Code(s): I50.9 - Heart failure, unspecified Code(s): I50.9 - Heart failure, unspecified Status: Acute Assessment and Plan: Last echo on 11/07/2023 and showed aortic stenosis, grade 2 diastolic function, left atrial enlargement and trivial mitral regurg. Patient recently hospitalized on 01/07/23 for CHF exacerbation. BNP 1780 CXR showed edema. Patient not requiring supplemental oxygen (5) Hypertension: Code(s): I10 - Essential (primary) hypertension Status: Acute Assessment and Plan: P.r.n. hydralazine -Norvasc and propranolol are being held due to bradycardia. (6) Type 2 diabetes mellitus: Code(s): E11.9 - Type 2 diabetes mellitus without complications Status: Chronic Assessment and Plan: Accu-Cheks AC and HS with sliding scale insulin and hypoglycemic protocol. (7) Hypothyroidism: Qualifiers: Hypothyroidism type: acquired Qualified Code(s): E03.9 - Hypothyroidism, unspecified Code(s): E03.9 - Hypothyroidism, unspecified Status: Acute Assessment and Plan: Continue with levothyroxine and check thyroid level Time Spent With Patient Time with patient: 25 - 35 minutes Subjective Date/time seen: 01/14/23 08:24 Interval history: Patient sitting up in chair in a good mood while being interviewed. Patient admitted for bradycardia. Patient states that she is feeling pretty good today. Patient admits that she was lightheaded before admission and every once while she still gets lightheaded feelings. Patient denies chest pain, shortness a breath and lower extremity edema. Patient does have a history of CHF and was recently admitted for exacerbation where she was fluid overloaded. Discussed with patient detail the workup that was being planned multiple times. Was with the patient for greater than 30 minutes. No other complaints at this time. Exam Narrative: GENERAL: Comfortable, no acute distress HENMT: moist mucous membranes EYES: EOM intact b/l NECK: no lymphadenopathy RESPIRATORY: clear to auscultation CARDIO: murmur noted, bradycardic GI: soft, nontender, bowel sounds present SKIN: no rashes EXTREMITIES: no edema, redness or tenderness Objective Data Vital Signs Vital Signs: Vital Signs - 24 hr 01/13/23 10:13 01/13/23 11:55 01/13/23 12:09 Temperature 98.0 F Pulse Rate 39 L 52 L 49 L Respiratory Rate 18 12 18 Blood Pressure 112/33 L 115/44 L Pulse Oximetry 99 96 9
--- NOTE | 2023-01-14 08:33 | PC.NURSE ---
POC glucose was checked by TERELL Christian. Result was 101. result is not pulling through to the computer. This nurse verified with SNT the results.
[2023-01-14] MEDS: PANTOPRAZOLE 40 MG TABLET PO (08:50)
[2023-01-14] MEDS: ESCITALOPRAM OXALATE 5 MG TABLET PO (08:50)
[2023-01-14] MEDS: FERROUS SULFATE 324 MG TABLET PO (08:50)
[2023-01-14 09:04] LABS: NT Pro B Type Natriuretic Pept 1780 pg/mL (19.9-100)
[2023-01-14 09:49] LABS: Free T4 Free Thyroxine Reflex 0.89 ng/dL (0.78-2.19)
[2023-01-14] MEDS: UMECLIDINIUM/VILANTEROL 62.5-25 MCG ELLIPTA 1 PUFF INHALATION (10:31)
[2023-01-14 11:22] LABS: Total Triiodothyronine (T3) 1.37 NG/ML (0.97-1.69)
--- NOTE | 2023-01-14 11:41 | PC.NURSE ---
0828 Patient's nurse Nehal was called to let her know the patient needs to have a KUB today because of the Patency Capsule the patient had ingested on 01/12/22 for anemia. Instructed nurse that Dr. Moreno was going to be calling the hospitalist to ask for them to order the test. I also mentioned that the patient had an order on the Ambulatory side for the KUB for today. I asked the nurse to make sure a KUB was completed today so we could see if the Patency Capsule passed through the patient's GI system so we could proceed with the Given's Capsule in the future. Nurse voiced understanding. Dr. Moreno was also made aware at 9 am this morning that the patient was admitted and needed a KUB order on the in-patient side. He said he would follow up with the hospitalist.
[2023-01-14 12:08] LABS: Glucose Point of Care 128 mg/dl (65-105)
--- NOTE | 2023-01-14 15:03 | PM.CNCAR ---
Assessment and Plan Assessment and plan (1) Generalized weakness: Code(s): R53.1 - Weakness Status: Acute (2) Bradycardia: Code(s): R00.1 - Bradycardia, unspecified Status: Acute (3) Aortic stenosis: Qualifiers: Cardiac valve disease etiology: nonrheumatic Qualified Code(s): I35.0 - Nonrheumatic aortic (valve) stenosis Code(s): I35.0 - Nonrheumatic aortic (valve) stenosis Status: Chronic Plan In sinus bradycardia. Agree with holding Propranolol. Avoid AV fiona blocking agents at this time. Amlodipine is on hold -- if blood pressure control is needed then can restart Amlodipine as Amlodipine is not an AV fiona blocking agent. Will see how her heart rate does with washout of beta leonidas. An echo has been ordered, will follow up on results. Recommend an event monitor upon discharge. History of Present Illness History of Present Illness Consult date/time: 01/14/23 15:03 Requesting physician: Berna Rick, EBONY Consult reason: Other (Bradycardia) Reason For Visit: Bradycardia, Gen Weakness Narrative: We are consulted for bradycardia. This is a 77-year-old female with a history of moderate aortic stenosis, CHF, anemia who presented with generalized weakness. She was seen by her Oncologist and was noted to have a low heart rate and sent to the ER for further evaluation. No chest pain, palpitations, shortness of breath, lightheadedness/dizziness. Is on Propanolol at home. EKG showing sinus bradycardia with first-degree AVB, RBBB. Telemetry shows sinus bradycardia with HR currently in the mid 40s. Review of Systems Review of Systems: 12 point ROS obtained. Negative, unless stated in HPI. FOR[facility], [facility] Past Medical History Medical History Acute on chronic anemia Acute on chronic diastolic heart failure Acute spont intraparenchymal hemorrhage assoc w/ hypertension Anemia in chronic kidney disease (CKD) Anxiety Aortic stenosis Moderate on echocardiogram in November 2021. Arthritis Asthma Bipolar disorder Cerebrovascular accident Chronic kidney disease, stage 4 (severe) Chronic obstructive pulmonary disease PFTs 06/28/2021: Moderate obstructive abnormality, moderate decreased diffusion capacity. 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 Moreno History of partial hysterectomy History of thyroidectomy History of tonsillectomy Family History Family History Sibling Multiple sclerosis Father Acute myocardial infarction, Onset Age: 79 Cerebrovascular accident, Onset Age: 79 Mother Dementia Sibling Acute myocardial infarction, Onset Age: 65 Son Diabetes mellitus Other Depression Family history of arthritis Family history of elevated blood lipids Family history of thyroid disease Hypertension Social History Social History (Revie
[2023-01-14 17:23] LABS: Glucose Point of Care 123 mg/dl (65-105)
[2023-01-14 20:52] LABS: Glucose Point of Care 102 mg/dl (65-105)
[2023-01-15] VITALS (7 sets, daily range): BP systolic 118; BP diastolic 46; PULSE 39–54; RESP 16–18; TEMP 37.1; O2SAT 100
[2023-01-15] MEDS: LEVOTHYROXINE SODIUM 150 MCG TABLET PO (05:49)
[2023-01-15 06:31] LABS: Hematocrit 25.7 % (37.0-47.0); Hemoglobin 7.7 g/dL (12.0-15.0); Mean Corpuscular Hemoglobin 29.2 pg (26-34); Mean Corpuscular Volume 97.3 fl (80-100); Mean Platelet Volume 10.8 fl (7.4-10.4); Platelet Count Result 109 k/mm3 (150-375); Red Blood Count 2.64 M/mm3 (4.2-5.4); Red Cell Distribution Width 17.5 % (11.5-14.5); White Blood Count 2.9 K/mm3 (4.5-10.0)
[2023-01-15 06:40] LABS: Alanine Aminotransferase 24 U/L (6-35); Albumin Level 3.9 g/dL (3.5-5.1); Alkaline Phosphatase 421 U/L (38-126); Anion Gap 6 mmol/L (8-16); Aspartate Amino Transferase 39 U/L (14-36); Bilirubin,Total 0.4 mg/dL (0.2-1.3); Blood Urea Nitrogen 32 mg/dL (7-17); Calcium 8.4 mg/dL (8.4-10.2); Carbon Dioxide 23 mmol/L (22-30); Chloride 109 mmol/L (98-107); Estimated CRCL calculation 16 ml/min; Estimated Glomerular Filt Rate 20; Glucose 100 mg/dL (65-110); Potassium 4.8 mmol/L (3.4-5.0); Sodium 138 mmol/L (137-145)
[2023-01-15 08:18] LABS: Glucose Point of Care 103 mg/dl (65-105)
[2023-01-15] MEDS: PANTOPRAZOLE 40 MG TABLET PO (08:44)
[2023-01-15] MEDS: lamoTRIgine 50 MG TABLET PO (08:45)
[2023-01-15] MEDS: GABAPENTIN 300 MG CAPSULE 600 MG PO ×2 (08:45→13:09)
[2023-01-15] MEDS: FERROUS SULFATE 324 MG TABLET PO (08:47)
[2023-01-15] MEDS: ESCITALOPRAM OXALATE 5 MG TABLET PO (08:47)
[2023-01-15] MEDS: lamoTRIgine 100 MG TABLET PO (08:47)
[2023-01-15] MEDS: UMECLIDINIUM/VILANTEROL 62.5-25 MCG ELLIPTA 1 PUFF INHALATION (08:58)
--- NOTE | 2023-01-15 11:04 | PM.PNCARD ---
Progress Note: A&P Assessment and Plan (1) Generalized weakness: Code(s): R53.1 - Weakness Status: Acute (2) Bradycardia: Code(s): R00.1 - Bradycardia, unspecified Status: Acute (3) CVA (cerebrovascular accident): Onset Date: ~12/2019 Qualifiers: CVA mechanism: unspecified Qualified Code(s): I63.9 - Cerebral infarction, unspecified Code(s): I63.9 - Cerebral infarction, unspecified Status: Acute (4) Diabetic peripheral neuropathy: Code(s): E11.42 - Type 2 diabetes mellitus with diabetic polyneuropathy Status: Acute (5) Congestive heart failure (CHF): Qualifiers: Heart failure type: unspecified Heart failure chronicity: acute on chronic Qualified Code(s): I50.9 - Heart failure, unspecified Code(s): I50.9 - Heart failure, unspecified Status: Acute (6) Hypertension: Code(s): I10 - Essential (primary) hypertension Status: Acute (7) Hyperlipidemia: Code(s): E78.5 - Hyperlipidemia, unspecified Status: Acute (8) Aortic stenosis: Qualifiers: Cardiac valve disease etiology: nonrheumatic Qualified Code(s): I35.0 - Nonrheumatic aortic (valve) stenosis Code(s): I35.0 - Nonrheumatic aortic (valve) stenosis Status: Chronic Plan Sinus bradycardia has improved some with holding of Propranolol. Would discontinue Propranolol and avoid any other AV fiona blocking agents. Echocardiogram reviewed - preserved LVEF with moderate . No significant changes compared to prior TTE. At this time, patient can be discharged home from a cardiac standpoint with a 30-day event monitor (order placed). Recommend outpatient sleep study as well. Outpatient follow up for her valvular disease. Subjective Date/time seen: 01/15/23 11:04 Interval history: Reason for visit: Sinus bradycardia Feeling well this AM. Denies any fatigue, lightheadedness/dizziness. Telemetry with sinus bradycardia without other significant arrhythmias. Review of Systems Review of Systems: 8 point ROS obtained. Negative, unless stated in HPI. Exam Const: General: comfortable and no acute distress HENMT: Mouth: Yes moist mucous membranes Eyes: General: appearance normal, both eyes and all related structures Sclera: sclerae normal Neck: Neck: supple Resp: Effort & Inspection: normal respiratory effort Auscultation: diminished lung sounds Cardio: Rate: bradycardic Rhythm: regular rhythm Heart sounds: Murmur heart sound present GI: GI Palp: Yes Soft to palpation and No Tenderness to palpation present (GI) Skin: General skin exam: normal color Neuro: Speech: normal speech Psych: Mental Status: mental status grossly normal Affect: normal affect Objective Data Vital Signs Vital Signs: Vital Signs - 24 hr 01/14/23 12:01 01/14/23 12:00 01/14/23 16:00 Temperature Pulse Rate 41 L 48 L Respiratory Rate Blood Pressure Pulse Oximetry Oxygen Delivery Nasal Cannula Oxygen Flow Rate 1 01/14/23 16:53 01/14/23 23:08 01/14/23 20:00 Temperature 36.7 C 36.6 C Pulse Rate 52 L 43 L 40 L Respiratory Rate 18 12 Blood Pressure 120/41 L 105/40 L Pulse Oximetry 100 97 Oxygen Delivery Oxygen Flow Rate 01/15/23 00:00 01/15/23 04:00 01/15/23 06:40 Temperature 37.1 C Pulse Rate 39 L 47 L 54 L Respiratory Rate 16 Blood Pressure 118/46 L Pulse Oximetry 100 Oxygen Delivery Oxygen Flow Rate 01/14/23 23:10 01/15/23 08:58 01/15/23 08:58 Temperature Pulse Rate 54 L 54 L Respiratory Rate 18 Blood Pressure 100/42 L Pulse Oximetry 100 Oxygen Delivery Nasal Cannula Oxygen Flow Rate 1 01/15/23 08:00 01/15/23 08:00 Temperature Pulse Rate Respiratory Rate Blood Pressure Pulse Oximetry 100 100 Oxygen Delivery Nasal Cannula Oxygen Flow Rate 1 Intake/Output Intake/Output: Intake & Output 01/12/23 01/13/23 01/14/23 01/15/23
--- NOTE | 2023-01-15 11:34 | P.DS_ITS ---
DS: Admitting Diagnosis Discharge Date 01/15/23 Admitting Diagnosis Bradycardia DS: Discharge Diagnosis Discharge Diagnosis (1) Generalized weakness: Code(s): R53.1 - Weakness Status: Acute Assessment and Plan: Patient came from home and presented to the ER with generalized weakness. * Chest XR showed edema. BNP ordered. Pt has hx of CHF. * Echo on 11/07/22 showed aortic stenosis, grade 2 diastolic function, left atrial enlargement and trivial mitral regurg. * PT and OT have been consulted * web content coordinator has been consulted for possible placement * Patient's blood pressure medications discontinued and weakness resolved. * Patient is not requiring any further hospital medical management (2) Bradycardia, sinus: Code(s): R00.1 - Bradycardia, unspecified Status: Acute Assessment and Plan: Pt has history of bradycardia but not with HR in the 30s. Patient states that she is having some mild lightheadedness but no other complaints at this time. * Propranolol and Norvasc are being held. * TSH elevated at 8.4, free T4 and total T3 normal. Subclinical. Most likely not the source of bradycardia. * Orthostatics are negative * Cardiology consulted and recommending a 30 day Holter monitor and following up as an outpatient. * Patient is not symptomatic at this time in cleared to be discharged by Cardiology. * Discontinuing amlodipine and propranolol. (3) Anemia: Code(s): D64.9 - Anemia, unspecified Status: Acute Assessment and Plan: * The patient is at her baseline. * It was reported that the patient does follow with Oncology Hematology for epo injections * Continue with ferrous sulfate. * Patient sees Dr. Hartman for Procrit injections as an outpatient. She is due for an injection at this time in OB given in the hospital. Advised that she follow-up in 2 weeks for scheduled injection. (4) Congestive heart failure (CHF): Qualifiers: Heart failure chronicity: acute on chronic Heart failure type: unspecified Qualified Code(s): I50.9 - Heart failure, unspecified Code(s): I50.9 - Heart failure, unspecified Status: Acute Assessment and Plan: Last echo on 11/07/2023 and showed aortic stenosis, grade 2 diastolic function, left atrial enlargement and trivial mitral regurg. * Patient recently hospitalized on 01/07/23 for CHF exacerbation. * BNP 1780 * CXR showed edema. Patient is not symptomatic. * Patient not requiring supplemental oxygen. (5) Hypertension: Code(s): I10 - Essential (primary) hypertension Status: Acute Assessment and Plan: P.r.n. hydralazine -Norvasc and propranolol are being held due to bradycardia. Will continue to hold medications as an outpatient. (6) Type 2 diabetes mellitus: Code(s): E11.9 - Type 2 diabetes mellitus without complications Status: Chronic Assessment and Plan: Accu-Cheks AC and HS with sliding scale insulin and hypoglycemic protocol. (7) Hypothyroidism: Qualifiers: Hypothyroidism type: acquired Qualified Code(s): E03.9 - Hypothyroidism, unspecified Code(s): E03.9 - Hypothyroidism, unspecified Status: Acute Assessment and Plan: Continue with levothyroxine and check thyroid level DS: Summary Hospital Course Reason for hospitalization: bradycardia Hospital Course: This is a 77- year old female with a history of chronic kidney disea
--- NOTE | 2023-01-15 11:34 | PM.DS ---
DS: Admitting Diagnosis Discharge Date 01/15/23 Admitting Diagnosis Bradycardia DS: Discharge Diagnosis Discharge Diagnosis (1) Generalized weakness: Code(s): R53.1 - Weakness Status: Acute Assessment and Plan: Patient came from home and presented to the ER with generalized weakness. Chest XR showed edema. BNP ordered. Pt has hx of CHF. Echo on 11/07/22 showed aortic stenosis, grade 2 diastolic function, left atrial enlargement and trivial mitral regurg. PT and OT have been consulted religious education coordinator has been consulted for possible placement Patient's blood pressure medications discontinued and weakness resolved. Patient is not requiring any further hospital medical management (2) Bradycardia, sinus: Code(s): R00.1 - Bradycardia, unspecified Status: Acute Assessment and Plan: Pt has history of bradycardia but not with HR in the 30s. Patient states that she is having some mild lightheadedness but no other complaints at this time. Propranolol and Norvasc are being held. TSH elevated at 8.4, free T4 and total T3 normal. Subclinical. Most likely not the source of bradycardia. Orthostatics are negative Cardiology consulted and recommending a 30 day Holter monitor and following up as an outpatient. Patient is not symptomatic at this time in cleared to be discharged by Cardiology. Discontinuing amlodipine and propranolol. (3) Anemia: Code(s): D64.9 - Anemia, unspecified Status: Acute Assessment and Plan: The patient is at her baseline. It was reported that the patient does follow with Oncology Hematology for epo injections Continue with ferrous sulfate. Patient sees Dr. Hartman for Procrit injections as an outpatient. She is due for an injection at this time in OB given in the hospital. Advised that she follow-up in 2 weeks for scheduled injection. (4) Congestive heart failure (CHF): Qualifiers: Heart failure chronicity: acute on chronic Heart failure type: unspecified Qualified Code(s): I50.9 - Heart failure, unspecified Code(s): I50.9 - Heart failure, unspecified Status: Acute Assessment and Plan: Last echo on 11/07/2023 and showed aortic stenosis, grade 2 diastolic function, left atrial enlargement and trivial mitral regurg. Patient recently hospitalized on 01/07/23 for CHF exacerbation. BNP 1780 CXR showed edema. Patient is not symptomatic. Patient not requiring supplemental oxygen. (5) Hypertension: Code(s): I10 - Essential (primary) hypertension Status: Acute Assessment and Plan: P.r.n. hydralazine -Norvasc and propranolol are being held due to bradycardia. Will continue to hold medications as an outpatient. (6) Type 2 diabetes mellitus: Code(s): E11.9 - Type 2 diabetes mellitus without complications Status: Chronic Assessment and Plan: Accu-Cheks AC and HS with sliding scale insulin and hypoglycemic protocol. (7) Hypothyroidism: Qualifiers: Hypothyroidism type: acquired Qualified Code(s): E03.9 - Hypothyroidism, unspecified Code(s): E03.9 - Hypothyroidism, unspecified Status: Acute Assessment and Plan: Continue with levothyroxine and check thyroid level DS: Summary Hospital Course Reason for hospitalization: bradycardia Hospital Course: This is a 77- year old female with a history of chronic kidney disease, aortic stenosis, COPD, CVA, cirrhosis, CHF, diabetes, and hypothyroidism presented to the ED on 01/13/2023 with chief complaint of bradycardia. Patient was at the doctor's office when her vital signs revealed a heart rate of 38 and she was advised to be seen in the ED. Patient does have a history of bradycardia and typically has a heart rate in the 40s and 50s. Patient did state that she had some mild weakness and lightheadedness at the time of presentation. Patient on propranolo
[2023-01-15 12:16] LABS: Glucose Point of Care 116 mg/dl (65-105)
[2023-01-15] MEDS: EPOETIN ALFA-EPBX 2,000 UNITS/ML VIAL 2000 UNITS SUB-Q (13:09)
== END 2023-01-15 15:10 ==
LOC: ANHED 18:45 → ANH2MED 01-14 04:14
PROVIDERS: Internal Medicine Critical Care Medicine; Nurse Practitioner; Admitting Provider Chiropractor; Emergency Provider Emergency Medicine; PCP Internal Medicine; Referring Provider Internal Medicine Pulmonary Disease; Visit Provider Internal Medicine
DX: R53.1 Weakness (principal); R00.1 Bradycardia, unspecified; I50.33 Acute on chronic diastolic (congestive) heart failure; I13.0 Hypertensive heart and chronic kidney disease with heart failure and stage 1 through stage 4 chronic kidney disease, or unspecified chronic kidney disease; E11.22 Type 2 diabetes mellitus with diabetic chronic kidney disease; N18.4 Chronic kidney disease, stage 4 (severe); Z20.822 Contact with and (suspected) exposure to COVID-19; I45.10 Unspecified right bundle-branch block; I44.0 Atrioventricular block, first degree; I08.3 Combined rheumatic disorders of mitral, aortic and tricuspid valves; K21.9 Gastro-esophageal reflux disease without esophagitis; E11.649 Type 2 diabetes mellitus with hypoglycemia without coma; R01.1 Cardiac murmur, unspecified; K74.60 Unspecified cirrhosis of liver; K75.81 Nonalcoholic steatohepatitis (NASH); E03.9 Hypothyroidism, unspecified; F41.9 Anxiety disorder, unspecified; F31.9 Bipolar disorder, unspecified; Z87.891 Personal history of nicotine dependence; Z86.73 Personal history of transient ischemic attack (TIA), and cerebral infarction without residual deficits; Z79.4 Long term (current) use of insulin; Z79.1 Long term (current) use of non-steroidal anti-inflammatories (NSAID); Z79.51 Long term (current) use of inhaled steroids; Z79.52 Long term (current) use of systemic steroids; Z79.899 Other long term (current) drug therapy
CPT/HCPCS: 36415; 71046; 74018; 80053; 82948; 83036; 83605; 83735; 83880; 84100; 84439; 84443; 84480; 85025; 85027; 87637; 93005; 93306; 94640; 96372; 97161; 97166; 99285; A9270; G0378; Q5105

== ENCOUNTER 2023-02-17 06:14 | Outpatient (CLI) | payer MEDICARE, MEDICAID, SELFPAY ==
--- NOTE | 2023-02-17 07:02 | SUR.OPER ---
Patient brought to GI Lab. Instructions for patient undergoing Capsule Endoscopy reviewed with patient. Consent form signed. Sensor array applied to patient's abdomen and connected to recorded. Patient swallowed capsule with 16ozs of water infused with Simethicone. Patient instructed they may have clear liquids at 0845 this AM and eat or drink at 1045 this AM. Patient instructed to return to GI Lab at 1500 this afternoon for removal of recording device and to call [phone] or to return to the hospital if any nausea and vomiting or abdominal pain is experienced. PT did use the bathroom having a loose bowel movement prior to swallowing the givens capsule, reported to the logging truck driver.
--- NOTE | 2023-02-17 15:09 | SUR.OPER ---
Patient returned to the GI Lab at 1500 for recorder box removal. Patient voiced no complaints. States they have understanding of instructions. Patient left per wheelchair via wheelchair van from [facility].
== END 2023-02-17 06:15 | disposition home or self-care (01) ==
PROVIDERS: PCP Internal Medicine; Visit Provider Internal Medicine Gastroenterology
PROC: 0DJ07ZZ Inspection of Upper Intestinal Tract, Via Natural or Artificial Opening (ICD-10-PCS; CPT 91110; principal; 2023-02-17 07:00)
DX: Z01.818 Encounter for other preprocedural examination (principal)
CPT/HCPCS: 91110

== ENCOUNTER 2023-11-10 10:51 | Outpatient (CLI) | payer MEDICARE, MEDICAID, SELFPAY ==
[2023-11-10 12:04] LABS: INR 1.2; Prothrombin Time 15.7 Seconds (11.1-14.7)
== END 2023-11-10 10:52 | disposition home or self-care (01) ==
PROVIDERS: PCP Internal Medicine; Visit Provider Internal Medicine Gastroenterology
DX: K74.60 Unspecified cirrhosis of liver (principal); K75.81 Nonalcoholic steatohepatitis (NASH)
CPT/HCPCS: 36415; 85610

== ENCOUNTER 2023-11-14 00:20 | Emergency (ER) | payer MEDICARE, MEDICAID, SELFPAY ==
[2023-11-14] VITALS (23 sets, daily range): BP systolic 155–206; BP diastolic 57–129; PULSE 67–87; RESP 13–34; TEMP 36.2; O2SAT 91–100
--- NOTE | ~2023-11-14 | CT_ITS ---
EXAMINATION: CT brain wo con DATE: 11/14/2023 00:59 INDICATION: Status post fall. Head injury. TECHNIQUE: Computed tomography (CT) of the head was performed without intravenous contrast. The dose- length product was 1210.67 mGy-cm. Automated exposure control and iterative reconstruction technique were employed. COMPARISON: CT dated 12/12/2022 FINDINGS: Generalized atrophy. Chronic left lacunar infarction with encephalomalacia. There are scatt ered mild periventricular and subcortical white matter changes, most likely related to small vessel i schemic disease (microangiopathy). Paranasal sinuses and mastoids are pneumatized. No depressed skull fractures. IMPRESSION: 1. No acute intracranial abnormality. 2: Chronic left lacunar infarction. 3: Chronic age-related findings. Reviewed, dictated and finalized at location A.
--- NOTE | ~2023-11-14 | XR_ITS ---
XR hip RT min 3V w AP pelvis 11/14/2023 01:13 Indication: Right hip pain after fall Procedure: 3 views right hip including AP pelvis Comparison: 09/02/2022 Findings: Mild osteoarthritis of the hips. No fracture. Pelvic rings intact. Moderate lower lumbar sp ondylosis. Impression: 1: No acute fracture. Reviewed, dictated and finalized at location A. STICS ADMINISTRATOR Impression: 1: No acute fracture.
--- NOTE | ~2023-11-14 | CT_ITS ---
EXAMINATION: CT lumbar spine wo con DATE: 11/14/2023 00:59 INDICATION: Low back pain. Status post fall from chair. TECHNIQUE: Computed tomography (CT) of the lumbar spine was performed without intravenous contrast. T he dose-length product was 2116.30 mGy-cm. Automated exposure control and iterative reconstruction te júniorgregoryque were employed. COMPARISON: None FINDINGS: No acute fracture or traumatic malalignment. There is significant disc narrowing at L2-3 th rough L5-S1. There is grade 1 degenerative spondylolisthesis at L4-5 secondary to facet hypertrophy. There is atherosclerosis of the aorta. There is trace free fluid in the perisplenic space. There is f ree fluid in the pelvis. IMPRESSION: 1. No acute abnormality of the lumbar spine. 2: Severe lumbar spondylosis. 3: Ascites. Reviewed, dictated and finalized at location A. NEER CHIEF
--- NOTE | ~2023-11-14 | CT_ITS ---
EXAMINATION: CT cervical spine wo con DATE: 11/14/2023 00:59 INDICATION: Neck pain after trauma TECHNIQUE: Computed tomography (CT) of the cervical spine was performed without intravenous contrast. The dose-length product was 183.64 mGy-cm. Automated exposure control and iterative reconstruction t echnique were employed. COMPARISON: 12/25/2022 FINDINGS: No acute fracture or traumatic malalignment. There is disc narrowing and endplate hypertrop hy at 667. Odontoid process is normal. Craniovertebral junction is normal. There is a 5 mm left apica l nodule. Recommend follow-up CT in 12 months. There is interlobular septal thickening in the lung ap ices, likely mild edema. IMPRESSION: 1. No acute fracture. Reviewed, dictated and finalized at location A. ONAL COMMERCIAL SALES MANAGER IMPRESSION: 1. No acute fracture.
--- NOTE | ~2023-11-14 | XR_ITS ---
XR knee RT 3V 11/14/2023 01:13 Indication: Right knee pain after fall Procedure: 3 views right knee Comparison: No prior studies for comparison. Findings: No fracture or traumatic malalignment. There is chondrocalcinosis. No joint effusion. There is anatomic alignment. Impression: 1: No acute bone or joint abnormality. Reviewed, dictated and finalized at location A. F WELLNESS OFFICER Impression: 1: No acute bone or joint abnormality.
--- NOTE | 2023-11-14 00:23 | ECG_ITS ---
Measurements Intervals Devol Rate: 67 P: 12 NV: 152 QRS: -69 QRSD: 149 T: 45 QT: 458 QTc: 486 Interpretive Statements SINUS RHYTHM RIGHT BUNDLE BRANCH BLOCK LEFT AXIS DEVIATION ABNORMAL ECG COMPARED TO ECG 01/13/2023 10:20:47 HEART RATE IS INCREASED/NO OTHER DIFFERENCE Electronically Signed On 11-14-2023 7:40:33 WHEEL PRESS OPERATOR by Chester Velez M.D.
--- NOTE | 2023-11-14 02:01 | ED.GENADULT ---
HPI - General Adult General Chief complaint: Fall Stated complaint: fall Time Seen by Provider: 11/14/23 00:21 History of Present Illness HPI narrative: patient is a 78-year-old female who presents to emergency department with chief complaint of fall from wheelchair. The patient reports that she fell off her wheelchair since she struck her head and is not sure whether she had loss of consciousness the patient states it is hard to hold her eyes open patient has history of type 2 diabetes and has had encephalopathy patient reports that she also has pain in her lumbar region and reports pain in her right hip and right knee. Related Data Home Medications Medication Instructions Recorded Confirmed asenapine maleate 5 mg sublingual 5 mg sublingual Q12H 01/04/20 11/10/23 tablet (Saphris) escitalopram oxalate 5 mg tablet 5 mg PO DAILY 08/21/21 11/10/23 trazodone 100 mg tablet 300 mg PO HS 08/21/21 11/10/23 glucagon HCl 1 mg solution for 1 mg subcut Q20M PRN Hypoglycemia 02/13/22 11/10/23 injection (Glucagon (HCl) Emergency Kit) sodium chloride 0.65 % nasal spray 1 spray intranasal BID PRN Dry 02/13/22 11/10/23 aerosol (Saline Mist) Nasal Passages hydroxyzine HCl 25 mg tablet 25 mg PO Q8H PRN Itching 08/25/22 11/10/23 acetaminophen 500 mg tablet 500 mg PO BID PRN Pain (Scale 09/14/22 11/10/23 Score 1-3) ferrous sulfate 325 mg (65 mg 325 mg PO DAILY 12/22/22 11/10/23 iron) tablet lactulose 20 gram/30 mL oral 10 g PO TID 01/01/23 11/10/23 solution atorvastatin 40 mg tablet 40 mg PO DAILY 01/22/23 11/10/23 gabapentin 600 mg tablet 200 mg PO TID 01/22/23 11/10/23 omeprazole 20 mg capsule,delayed 20 mg PO DAILY 01/22/23 11/10/23 release Allergies Allergy/AdvReac Type Severity Reaction Status Date / Time alendronate sodium Allergy Unknown Verified 11/10/23 09:41 amantadine Allergy Unknown Verified 11/10/23 09:41 benztropine Allergy Unknown Verified 11/10/23 09:41 chlorpromazine Allergy Unknown Verified 11/10/23 09:41 levofloxacin Allergy Unknown Verified 11/10/23 09:41 Macrolide Antibiotics Allergy Unknown Verified 11/10/23 09:41 mirtazapine Allergy Unknown Verified 11/10/23 09:41 Quinolones Allergy Unknown Verified 11/10/23 09:41 topiramate Allergy Unknown Verified 11/10/23 09:41 Review of Systems Review of Systems: A 10 system review of systems was completed on the patient and is negative except for what is stated in the HPI. Nursing and ancillary documentation was reviewed. PENDING SALE TO [facility] Past Medical History Medical History Acute on chronic anemia Acute on chronic diastolic heart failure Acute spont intraparenchymal hemorrhage assoc w/ hypertension Anemia in chronic kidney disease (CKD) Anxiety Aortic stenosis Moderate on echocardiogram in November 2021. Arthritis Asthma Bipolar disorder Cerebrovascular accident Chronic kidney disease, stage 4 (severe) Chronic obstructive pulmonary disease PFTs 06/28/2021: Moderate obstructive abnormality, moderate decreased diffusion capacity. 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
[2023-11-14] MEDS: diphenhydrAMINE HCl INJ 50 MG/ML VIAL 25 MG IV PUSH (02:33)
[2023-11-14] MEDS: LORazepam INJ (*CRX) 2 MG/ML VIAL 1 MG IV PUSH ×2 (03:07→03:30)
== END 2023-11-14 04:47 ==
PROVIDERS: Emergency Provider Emergency Medicine; PCP Internal Medicine
DX: S09.90XA Unspecified injury of head, initial encounter (principal); S39.92XA Unspecified injury of lower back, initial encounter; S89.91XA Unspecified injury of right lower leg, initial encounter; S79.911A Unspecified injury of right hip, initial encounter; E11.9 Type 2 diabetes mellitus without complications; E11.22 Type 2 diabetes mellitus with diabetic chronic kidney disease; I13.0 Hypertensive heart and chronic kidney disease with heart failure and stage 1 through stage 4 chronic kidney disease, or unspecified chronic kidney disease; N18.4 Chronic kidney disease, stage 4 (severe); I50.33 Acute on chronic diastolic (congestive) heart failure; D63.1 Anemia in chronic kidney disease; I35.0 Nonrheumatic aortic (valve) stenosis; J44.9 Chronic obstructive pulmonary disease, unspecified; E11.42 Type 2 diabetes mellitus with diabetic polyneuropathy; K76.82 Hepatic encephalopathy; K74.60 Unspecified cirrhosis of liver; K75.81 Nonalcoholic steatohepatitis (NASH); K58.9 Irritable bowel syndrome, unspecified; K21.9 Gastro-esophageal reflux disease without esophagitis; E89.0 Postprocedural hypothyroidism; M81.0 Age-related osteoporosis without current pathological fracture; F41.9 Anxiety disorder, unspecified; F31.9 Bipolar disorder, unspecified; Z66 Do not resuscitate; Z87.440 Personal history of urinary (tract) infections; Z86.73 Personal history of transient ischemic attack (TIA), and cerebral infarction without residual deficits; Z98.49 Cataract extraction status, unspecified eye; Z96.1 Presence of intraocular lens; Z90.49 Acquired absence of other specified parts of digestive tract; Z90.711 Acquired absence of uterus with remaining cervical stump; I45.10 Unspecified right bundle-branch block; R18.8 Other ascites; M47.816 Spondylosis without myelopathy or radiculopathy, lumbar region; W05.0XXA Fall from non-moving wheelchair, initial encounter
CPT/HCPCS: 70450; 72125; 72131; 73502; 73562; 93005; 96374; 96375; 99284; J1200; J2060

== ENCOUNTER 2023-11-14 08:39 | Inpatient (IN) | payer MEDICARE, MEDICAID, SELFPAY ==
[2023-11-14] VITALS (9 sets, daily range): BP systolic 147–185; BP diastolic 54–88; PULSE 57–83; RESP 16–22; TEMP 36.6–36.7; O2SAT 95–98
--- NOTE | ~2023-11-14 | CT_ITS ---
EXAMINATION: CT abdomen pelvis wo con DATE: 11/14/2023 10:32 INDICATION: Distention. Altered mental status. History of cirrhosis. TECHNIQUE: Computed tomography (CT) of the abdomen and pelvis was performed without intravenous contr ast. The dose-length product was 916.39 mGy-cm. Automated exposure control and iterative reconstruction technique were employed. COMPARISON: CT dated 12 10/14/2022. FINDINGS: Bilateral lower lobe groundglass opacities. There is emphysema. Cardiomegaly. Small pleural effusions. There is cirrhosis of the liver with splenomegaly. There is ascites. Colonic diverticulos is without evidence for diverticulitis. The pancreas, adrenal glands and right kidney are unremarkabl e. There are collateral vessels in the upper abdomen. No free air. Severe lumbar spondylosis with gra de 1 spondylolisthesis at L4-5. IMPRESSION: 1. Cirrhosis with evidence for portal hypertension. Splenomegaly. 2: Groundglass opacities of the lower lobes which may represent edema or pneumonia. 3: Small pleural effusions. 4: Ascites. Reviewed, dictated and finalized at location A. R BARKER OPERATOR IMPRESSION: 1. Cirrhosis with evidence for portal hypertension. Splenomegaly. 2: Groundglass opacities of the lower lobes which may represent edema or pneumo yordan. 3: Small pleural effusions. 4: Ascites.
--- NOTE | ~2023-11-14 | XR_ITS ---
EXAMINATION: XR chest 1V portable INDICATION: Tachypnea TECHNIQUE: Portable AP chest at 1518 hours COMPARISON: 11/14/2023 FINDINGS: There is a mild diffuse interstitial pattern. No pleural effusion or pneumothorax. The card iomediastinal silhouette is normal. Surgical clips in the right upper quadrant are likely from prior cholecystectomy. IMPRESSION: 1. Mild diffuse interstitial pattern, consistent with pneumonia versus pulmonary edema. Reviewed, dictated and finalized at location L. ENT DEVELOPER IMPRESSION: 1. Mild diffuse interstitial pattern, consistent with pneumonia versus pulmonar y edema.
--- NOTE | ~2023-11-14 | US_ITS ---
EXAMINATION: US paracentesis abd w/image DATE: 11/17/2023 13:30 INDICATION: Ascites. TECHNIQUE: The procedure and its risks and benefits were discussed with the patient. Potential risks discussed included bleeding and infection. The skin was prepped and draped in sterile fashion. 1% lid ocaine was used for local anesthesia. Under ultrasound guidance, a 5 Fr catheter with trochar was adv anced into the ascites in the right upper quadrant. Fluid was aspirated into a vacuum bottle and sent to lab for studies as ordered by the referring physician. The catheter was removed, and a dressing w as applied. There were no immediate complications. FINDINGS: Ultrasound images demonstrate ascites and the catheter within the fluid. IMPRESSION: 1. Successful ultrasound-guided paracentesis yielding 250 mL of cloudy yellowish fluid. Reviewed, dictated and finalized at location A. PRODUCTION ARTIST IMPRESSION: 1. Successful ultrasound-guided paracentesis yielding 250 mL of cloudy yellowi sh fluid.
--- NOTE | ~2023-11-14 | XR_ITS ---
XR chest 1V portable 11/14/2023 09:58 Indication: Altered mental status Procedure: AP portable chest Comparison: Comparison to multiple prior studies sequentially, with oldest reviewed study dated 12/22. Findings: Cardiomegaly. Study limited by rotation. No focal air space disease, pulmonary edema, pleur al effusion or suspected pneumothorax. No acute osseous abnormality. Impression: 1: No acute cardiopulmonary disease. Reviewed, dictated and finalized at location A. AGENT Impression: 1: No acute cardiopulmonary disease.
--- NOTE | ~2023-11-14 | CT_ITS ---
EXAMINATION: CT brain wo con DATE: 11/14/2023 10:32 INDICATION: Altered mental status. TECHNIQUE: Computed tomography (CT) of the head was performed without intravenous contrast. The dose- length product was 605.33 mGy-cm. Automated exposure control and iterative reconstruction technique w ere employed. COMPARISON: CT dated 11/14/2023 FINDINGS: Chronic left lacunar infarction. Generalized atrophy. There are scattered mild periventricu lar and subcortical white matter changes, most likely related to small vessel ischemic disease (micro angiopathy). No acute intracranial hemorrhage, infarction, mass or mass effect. IMPRESSION: 1. No acute intracranial abnormality. No significant change. Reviewed, dictated and finalized at location A. NEER BOOSTER AND EXHAUSTER
--- NOTE | 2023-11-14 09:19 | ECG_ITS ---
Measurements Intervals [place] Rate: 67 P: 51 DE: 213 QRS: -66 QRSD: 153 T: 43 QT: 484 QTc: 514 Interpretive Statements SINUS RHYTHM WITH FIRST DEGREE AV BLOCK RIGHT BUNDLE BRANCH BLOCK LEFT AXIS DEVIATION ABNORMAL ECG COMPARED TO ECG 11/14/2023 00:27:34 NO DIFFERENCE Electronically Signed On 11-14-2023 12:41:32 CUSTOMER CARE REPRESENTATIVE by Chester Velez M.D.
--- NOTE | 2023-11-14 09:19 | ED.GENADULT ---
HPI - General Adult General Chief complaint: Altered Mental Status <Minh Nevarez PA-C - Last Filed: 11/14/23 16:41> Stated complaint: ams ? <Minh Nevarez PA-C - Last Filed: 11/14/23 16:41> Time Seen by Provider: 11/14/23 08:54 <Minh Nevarez PA-C - Last Filed: 11/14/23 16:41> Source: patient <EBONY Centeno Last Filed: 11/14/23 16:41> Mode of arrival: ambulatory <EBONY Centeno Last Filed: 11/14/23 16:41> Limitations: no limitations <Minh Nevarez PA-C - Last Filed: 11/14/23 16:41> History of Present Illness HPI narrative: this is a 70-year-old female with PMH of COPD, cirrhosis with ascites, DM, metabolic encephalopathy, HF, CVA, CKD who presents to the ED via EMS from [facility] with chief complaint of AMS onset this morning. per triage note, fdc staff noticed that patient was acting very sleepy and abnormal this morning. Per chart review, She was seen here last night for a mechanical fall from ground level falling out of her wheelchair. Imaging workup grossly benign. patient states that she still has some soreness in her right lower back but denies any other site of pain. Denies any further complaints. Today her son is here with her and notes that she does seem to be acting sleepy but is not acting severely altered. he reports that she is due for a paracentesis soon for cirrhosis with ascites but has been stable with this. No history of SBP. <EBONY Centeno Last Filed: 11/14/23 16:41> Related Data Home medications: Home Medications Medication Instructions Recorded Confirmed escitalopram oxalate 5 mg tablet 5 mg PO DAILY 08/21/21 11/14/23 trazodone 100 mg tablet 300 mg PO HS 08/21/21 11/14/23 glucagon HCl 1 mg solution for 1 mg subcut Q20M PRN Hypoglycemia 02/13/22 11/14/23 injection (Glucagon (HCl) Emergency Kit) sodium chloride 0.65 % nasal spray 1 spray intranasal BID PRN Dry 02/13/22 11/14/23 aerosol (Saline Mist) Nasal Passages hydroxyzine HCl 25 mg tablet 25 mg PO Q8H PRN Itching 08/25/22 11/14/23 acetaminophen 500 mg tablet 500 mg PO BID PRN Pain (Scale 09/14/22 11/14/23 Score 1-3) ferrous sulfate 325 mg (65 mg 325 mg PO DAILY 12/22/22 11/14/23 iron) tablet lactulose 20 gram/30 mL oral 10 g PO TID 01/01/23 11/14/23 solution atorvastatin 40 mg tablet 40 mg PO DAILY 01/22/23 11/14/23 gabapentin 600 mg tablet 200 mg PO TID 01/22/23 11/14/23 omeprazole 20 mg capsule,delayed 20 mg PO DAILY 01/22/23 11/14/23 release <Mnih Nevarez PA-C - Last Filed: 11/14/23 16:41> Allergies/adverse reactions: Allergies Allergy/AdvReac Type Severity Reaction Status Date / Time alendronate sodium Allergy Unknown Verified 11/10/23 09:41 amantadine Allergy Unknown Verified 11/10/23 09:41 benztropine Allergy Unknown Verified 11/10/23 09:41 chlorpromazine Allergy Unknown Verified 11/10/23 09:41 levofloxacin Allergy Unknown Verified 11/10/23 09:41 Macrolide Antibiotics Allergy Unknown Verified 11/10/23 09:41 mirtazapine Allergy Unknown Verified 11/10/23 09:41 Quinolones Allergy Unknown Verified 11/10/23 09:41 topiramate Allergy Unknown Verified 11/10/23 09:41 <Minh Nevarez PA-C - Last Filed: 11/14/23 16:41> Review of Systems Review of Systems: All systems as dictated in HPI <Minh Nevarez PA-C - Last Filed: 11/14/23 16:41> [facility] Past Medical History Medical History: Medical History (Updated 11/14/23 @ 14:23 by Destiny Bender PA-C) Anxiety Aortic stenosis Moderate on echocardiogram in November 2021. Arthritis Asthma Bipolar disorder Cerebrovascular accident Cerebrovascular accident Chronic kidney disease, stage 4 (severe) Chronic obstructive pulmonary disease PFTs 06/28/2021: Moderate obstructive abnormality, moderate decreased diffusion capacity. Depression Diabetic peripheral neuropathy Esophageal varices Frequent falls Gastroesophageal reflux disea
[2023-11-14 09:55] LABS: Basophils Percent Auto 1.1 % (0.2-1.2); Eosinophils Absolute Auto 0.2 K/mm3 (0-0.3); Eosinophils Percent Auto 6.3 % (0-4.4); Hemoglobin 9.8 g/dL (12.0-15.0); Immature Granulocyte Absolute 0.01 K/mm3 (0.00-0.031); Immature Granulocyte Percent A 0.4 % (0-0.5); Lymphocytes Absolute Auto 0.79 K/mm3 (0.9-3.2); Lymphocytes Percent Auto 27.7 % (18.3-44.2); Mean Corpuscular HGB Conc 31.6 g/dl (32-36); Mean Corpuscular Hemoglobin 29.5 pg (26-34); Mean Corpuscular Volume 93.4 fl (80-100); Mean Platelet Volume 9.4 fl (7.4-10.4); Monocytes Absolute Auto 0.3 K/mm3 (0.1-0.6); Monocytes Percent Auto 9.8 % (2.6-8.5); Neutrophils Absolute Auto 1.6 K/mm3 (1.3-6.7); Neutrophils Percent Auto 54.7 % (45.5-73.1); Platelet Count Result 157 k/mm3 (150-375); Red Blood Count 3.32 M/mm3 (4.2-5.4); Red Cell Distribution Width 14.8 % (11.5-14.5); White Blood Count 2.9 K/mm3 (4.5-10.0)
[2023-11-14 10:07] LABS: Ammonia 16 umol/L (9-30); Ethanol < 10 mg/dL (<10); Lactic Acid Reflex 0.9 mmol/L (0.7-2.0)
[2023-11-14 10:08] LABS: Alanine Aminotransferase 23 U/L (6-35); Albumin Level 3.2 g/dL (3.5-5.1); Alkaline Phosphatase 314 U/L (38-126); Anion Gap 7 mmol/L (8-16); Aspartate Amino Transferase 39 U/L (14-36); Bilirubin,Total 0.5 mg/dL (0.2-1.3); Blood Urea Nitrogen 14 mg/dL (7-17); Carbon Dioxide 21 mmol/L (22-30); Chloride 111 mmol/L (98-107); Creatine Kinase 102 U/L (30-135); Estimated CRCL calculation 24 ml/min; Estimated Glomerular Filt Rate 29; Glucose 114 mg/dL (65-110); Potassium 4.2 mmol/L (3.4-5.0); Sodium 139 mmol/L (137-145)
[2023-11-14 10:16] LABS: INR 1.1; Prothrombin Time 15.1 Seconds (11.1-14.7)
[2023-11-14 10:17] LABS: Partial Thromboplastin Time 35.3 SECONDS (22.3-36.8)
[2023-11-14 12:04] LABS: Appearance Urine Clear (Clear); Bacteria Urine 2+ /hpf; Bilirubin Urine Negative (Negative); Blood Urine Trace (Negative); Color Urine Yellow (Yellow); Glucose Urine UA Negative (Negative); Ketones Urine Negative (Negative); Leukocyte Esterase Ur Negative LEU/UL (Negative); Need Manual Microscopic Reviewed; Nitrate Urine Negative (Negative); Non Pathogenic Casts 0-2; Protein Urine 3+ mg/dL (Negative); RBC Urine 0-2 /hpf (0-2); Specific Grav Ur 1.012 (1.001-1.035); Squamous Epithelial Cell Urine Occasional /hpf (Few); Urobilinogen Urine 0.2 mg/dL (<2.0); WBC Urine 21-50 /hpf; pH Urine 6.5 (5.0-9.0)
[2023-11-14 12:10] LABS: Add Urine Microscopic? YES
[2023-11-14 13:15] LABS: Influenza A QL RT-PCR Negative (Negative); Influenza B QL RT-PCR Negative (Negative); RSV RNA, RT-PCR Negative (Negative); SARS-CoV-2 RNA PCR Negative (Negative)
[2023-11-14] MEDS: SODIUM CHLORIDE 0.9% IV 1,000 ML 75 ML IV CONT (13:45)
--- NOTE | 2023-11-14 13:56 | PC.NURSE ---
ordered pt meal.
--- NOTE | 2023-11-14 14:10 | PM.IMHP ---
H&P: HPI History of Present Illness Date/Time: 11/14/23 14:10 Chief Complaint: Altered mental status. Narrative: This is a 78-year-old female with history of stroke, chronic obstructive pulmonary disease, hypertension, hyperlipidemia, cirrhosis secondary to fatty liver disease with history of esophageal varices, hepatic encephalopathy, chronic kidney disease, type 2 diabetes mellitus, hypothyroidism, diastolic congestive heart failure, ESBL UTI, and anemia who presented to the emergency department via EMS from [facility] for evaluation of altered mental status. She was seen in the emergency department just after midnight for evaluation after she fell out of her wheelchair and struck her head. CT of the head and spine as well as plain films of the right hip and knee were without acute findings and she was discharged back to the skilled nursing at about 04:30. This morning she was reportedly acting more sleepy than usual and perhaps she seemed a bit confused and she was sent back to the ER at 08:30. Repeat brain CT was again without acute findings. CT of the abdomen and pelvis (I see no documentation to suggest that she was complaining of abdominal pain) demonstrated known cirrhosis with evidence of portal hypertension, splenomegaly, ascites, small pleural effusions, ground-glass opacities the lower lobes which may be edema or pneumonia. She has been afebrile since arrival with stable blood pressures. Chronic anemia and kidney disease appears stable on review of previous labs. Ammonia level was normal at 16. UA demonstrated 3+ protein, 21 to 50 WBC, and 2+ bacteria but was nitrate and leukocyte esterase negative. She tested negative for influenza, RSV, and COVID. I was asked to admit the patient in this setting for further evaluation altered mental status. [facility] Past Medical History Medical History Anxiety Aortic stenosis Moderate on echocardiogram in November 2021. Arthritis Asthma Bipolar disorder Cerebrovascular accident Cerebrovascular accident Chronic kidney disease, stage 4 (severe) Chronic obstructive pulmonary disease PFTs 06/28/2021: Moderate obstructive abnormality, moderate decreased diffusion capacity. 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 Moreno History of partial hysterectomy History of thyroidectomy History of tonsillectomy Family History Family History Sibling Multiple sclerosis Father Acute myocardial infarction, Onset Age: 79 Cerebrovascular accident, Onset Age: 79 Mother Dementia Sibling Acute myocardial infarction, Onset Age: 65 Son Diabetes mellitus Other Depression Family history of arthritis Family history of elevated blood lipids Family history of thyroid disease Hypertension Social History Social History Social History: Surrogate medical decision maker: Gavino Sigala (son). Code status: Do not resuscitate. Smoking packs per day: 1 Smoking cigarettes per day: 20.0 Years smoked: 50 Smoking pack-years: 50.00 Smoking status
[2023-11-14] MEDS: GABAPENTIN 100 MG CAPSULE 200 MG PO (22:08)
[2023-11-14] MEDS: MELATONIN 3 MG TABLET PO (22:08)
[2023-11-14] MEDS: lamoTRIgine 100 MG TABLET PO (22:09)
[2023-11-14] MEDS: FUROSEMIDE INJ 40 MG/4 ML VIAL IV PUSH (22:09)
[2023-11-14] MEDS: lamoTRIgine 50 MG TABLET PO (22:21)
[2023-11-15] VITALS (11 sets, daily range): BP systolic 140–188; BP diastolic 47–80; PULSE 67–143; RESP 16–18; TEMP 36.4–37; O2SAT 91–97
[2023-11-15] MEDS: LEVOTHYROXINE SODIUM 150 MCG TABLET PO (06:10)
[2023-11-15 06:38] LABS: Hemoglobin 9.9 g/dL (12.0-15.0); Mean Corpuscular HGB Conc 31.9 g/dl (32-36); Mean Corpuscular Hemoglobin 29.4 pg (26-34); Mean Platelet Volume 9.1 fl (7.4-10.4); Platelet Count Result 197 k/mm3 (150-375); Red Blood Count 3.37 M/mm3 (4.2-5.4); Red Cell Distribution Width 14.6 % (11.5-14.5); White Blood Count 3.4 K/mm3 (4.5-10.0)
[2023-11-15 06:46] LABS: Alanine Aminotransferase 24 U/L (6-35); Albumin Level 3.1 g/dL (3.5-5.1); Alkaline Phosphatase 282 U/L (38-126); Anion Gap 6 mmol/L (8-16); Aspartate Amino Transferase 50 U/L (14-36); Bilirubin,Total 0.5 mg/dL (0.2-1.3); Blood Urea Nitrogen 14 mg/dL (7-17); Calcium 8.5 mg/dL (8.4-10.2); Carbon Dioxide 21 mmol/L (22-30); Chloride 111 mmol/L (98-107); Estimated CRCL calculation 23 ml/min; Estimated Glomerular Filt Rate 27; Glucose 96 mg/dL (65-110); Magnesium 1.7 mg/dL (1.6-2.3); Potassium 3.9 mmol/L (3.4-5.0); Sodium 138 mmol/L (137-145)
[2023-11-15 07:46] LABS: Vitamin B12 > 1000.0 pg/mL (239-931)
[2023-11-15] MEDS: GABAPENTIN 100 MG CAPSULE 200 MG PO ×3 (09:30→17:16)
[2023-11-15] MEDS: ATORVASTATIN 40 MG TABLET PO (09:30)
[2023-11-15] MEDS: PANTOPRAZOLE 40 MG TABLET PO (09:30)
[2023-11-15] MEDS: FERROUS SULFATE 325 MG TABLET DR PO (09:30)
[2023-11-15] MEDS: lamoTRIgine 100 MG TABLET PO ×2 (09:30→17:16)
[2023-11-15] MEDS: LACTULOSE 20 GM/30 ML UDC 10 GM PO ×3 (09:31→17:19)
[2023-11-15] MEDS: lamoTRIgine 50 MG TABLET PO ×2 (09:32→17:16)
[2023-11-15] MEDS: ESCITALOPRAM OXALATE 5 MG TABLET PO (09:32)
--- NOTE | 2023-11-15 10:04 | PM.IMPN ---
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: Code(s): K75.81 - Nonalcoholic steatohepatitis (ZIEGLER); K74.60 - Unspecified cirrhosis of liver Status: Chronic Assessment and Plan: 11/15/2023: AST 50, ALT 24, alk-phos 282, total bili 0.5 CT scan of abdomen shown cirrhosis with evidence for portal hypertension, splenomegaly, ground-glass opacities of the lower lobes which may represent edema or pneumonia, small pleural effusion it is, ascites Continue lactulose (4) Heart failure with preserved ejection fraction: Code(s): I50.30 - Unspecified diastolic (congestive) heart failure Status: Acute Assessment and Plan: 11/15/2023: Last echo back in December of this year showed normal LV function with an estimated ejection fraction is 65-70%, normal right ventricular systolic function, and moderate aortic valve calcification and stenosis. She was noted to have a heart murmur EKG showed sinus rhythm with first-degree AV block, right bundle branch block, with a rate of 67, QTC was prolonged, left axis deviation Patient was given a dose of IV Lasix x1 while in the emergency room (5) Type 2 diabetes mellitus: Code(s): E11.9 - Type 2 diabetes mellitus without complications Status: Chronic Assessment and Plan: 11/15/2023: Last hemoglobin A1c done on 01/14/2023 was 4.7 Will get another hemoglobin A1c today as patient is requesting this to be done Patient not on any home medication for this (6) Chronic kidney disease, stage 4 (severe): Code(s): N18.4 - Chronic kidney disease, stage 4 (severe) Status: Acute Assessment and Plan: 11/15/2023: BUN 14, creatinine 1.8, EGFR 27, potassium 3.9, sodium 138, chloride 111 We will continue to monitor labs Time Spent With Patient Time with patient: Greater than 35 minutes Subjective Date/time seen: 11/15/23 10:04 Interval history: This is a 78 year old female who presented to the hospital on 11/14/23 for evaluation of altered mental status. Patient is a resident of [facility]. Patient was seen earlier on the in the ER after sustaining a fall with head injury. She had a CT and plain films done which were all negative as well as hip and knee x-rays which were negative as well. She was discharged back to the facility and then was found to be more altered the morning of the so she was sent back for re-evaluation. Work up in the hospital included a head CT which again shown no acute findings. She also had a CT of the abdomen and pelvis that shown cirrhosis with evidence of portal hypertension, splenomegaly, ground-glass opacities of the lower lobes representing edema or pneumonia, small pleural effusions, and ascites. EKG shown NSR with 1st degree AV block, RBBB with a rate of 67, QTc prolonged. UA was obtained and revealed 3+ protein, 21-50 urine WBCs, 2+ bacteria. Respiratory panel was negative for Influenza, RSV, COVID. Patient was given a dose of IV Lasix and admitted to hospitalist service. On examination today patient is alert oriented x3, lying in the bed. She denies any nausea, vomiting, diarrhea, abdominal pain, chest pain, shortness a breath, fever, chills. Labs today reveal WBC 3.4, Hgb 9.9, Hct 31.0, Na+ 138, K+ 3.9, Chloride 111, Bicarb 21, BUN 14, Creatinine 1.80, eGFR 27, Blood glucose ranging 96-114, magnesium 1.7, AST 50, Alk phos 282, vitamin B13 > 1000. Urine culture is still pending. Patient was started o
[2023-11-15] MEDS: UMECLIDINIUM/VILANTEROL 62.5-25 MCG ELLIPTA 1 PUFF INHALATION (10:19)
[2023-11-15 11:01] LABS: Ammonia < 9 umol/L (9-30)
[2023-11-15] MEDS: traZODone HCL 50 MG TABLET 300 MG PO (20:56)
[2023-11-15] MEDS: MELATONIN 3 MG TABLET PO (20:56)
[2023-11-15] MEDS: TRIAMCINOLONE ACET 0.1% CREAM 15 GM TUBE 1 APPLIC TOPICAL (20:57)
[2023-11-16] VITALS (7 sets, daily range): BP systolic 131–152; BP diastolic 43–73; PULSE 59–81; RESP 16–18; TEMP 36.5–37; O2SAT 95–100
[2023-11-16] MEDS: LEVOTHYROXINE SODIUM 150 MCG TABLET PO (05:28)
[2023-11-16 06:51] LABS: Basophils Percent Auto 0.7 % (0.2-1.2); Eosinophils Absolute Auto 0.2 K/mm3 (0-0.3); Eosinophils Percent Auto 6.1 % (0-4.4); Hematocrit 29.4 % (37.0-47.0); Hemoglobin 9.1 g/dL (12.0-15.0); Immature Granulocyte Absolute 0.02 K/mm3 (0.00-0.031); Immature Granulocyte Percent A 0.7 % (0-0.5); Lymphocytes Absolute Auto 0.77 K/mm3 (0.9-3.2); Lymphocytes Percent Auto 26.3 % (18.3-44.2); Mean Corpuscular Hemoglobin 29.2 pg (26-34); Mean Corpuscular Volume 94.2 fl (80-100); Mean Platelet Volume 9.1 fl (7.4-10.4); Monocytes Absolute Auto 0.2 K/mm3 (0.1-0.6); Monocytes Percent Auto 7.8 % (2.6-8.5); Neutrophils Absolute Auto 1.7 K/mm3 (1.3-6.7); Neutrophils Percent Auto 58.4 % (45.5-73.1); Platelet Count Result 171 k/mm3 (150-375); Red Blood Count 3.12 M/mm3 (4.2-5.4); Red Cell Distribution Width 14.8 % (11.5-14.5); White Blood Count 2.9 K/mm3 (4.5-10.0)
[2023-11-16 07:07] LABS: Alanine Aminotransferase 24 U/L (6-35); Albumin Level 2.9 g/dL (3.5-5.1); Alkaline Phosphatase 254 U/L (38-126); Anion Gap 8 mmol/L (8-16); Aspartate Amino Transferase 50 U/L (14-36); Bilirubin,Total 0.4 mg/dL (0.2-1.3); Blood Urea Nitrogen 17 mg/dL (7-17); Calcium 8.3 mg/dL (8.4-10.2); Carbon Dioxide 20 mmol/L (22-30); Chloride 110 mmol/L (98-107); Estimated CRCL calculation 21 ml/min; Estimated Glomerular Filt Rate 29; Glucose 129 mg/dL (65-110); Potassium 3.8 mmol/L (3.4-5.0); Sodium 138 mmol/L (137-145)
[2023-11-16] MEDS: GABAPENTIN 100 MG CAPSULE 200 MG PO ×3 (09:14→16:07)
[2023-11-16] MEDS: FERROUS SULFATE 325 MG TABLET DR PO (09:14)
[2023-11-16] MEDS: lamoTRIgine 100 MG TABLET PO ×2 (09:14→16:07)
[2023-11-16] MEDS: PANTOPRAZOLE 40 MG TABLET PO (09:14)
[2023-11-16] MEDS: ATORVASTATIN 40 MG TABLET PO (09:14)
[2023-11-16] MEDS: ESCITALOPRAM OXALATE 5 MG TABLET PO (09:14)
[2023-11-16] MEDS: lamoTRIgine 50 MG TABLET PO ×2 (09:14→16:07)
[2023-11-16] MEDS: LACTULOSE 20 GM/30 ML UDC 10 GM PO ×3 (09:15→16:06)
[2023-11-16 10:03] LABS: Hemoglobin A1C 5.7 % (<5.7)
[2023-11-16] MEDS: TRIAMCINOLONE ACET 0.1% CREAM 15 GM TUBE 1 APPLIC TOPICAL (11:10)
--- NOTE | 2023-11-16 14:42 | P.PNIM_ITS ---
Progress Note: A&P Assessment and Plan (1) Altered mental status: Code(s): R41.82 - Altered mental status, unspecified Status: Resolved Assessment and Plan: 11/15/23: * Head CT is negative * Patient currently alert oriented x3 11/16/23: * resolved, patient is alert and oriented x3 (2) Abnormal urinalysis: Code(s): R82.90 - Unspecified abnormal findings in urine Status: Acute Assessment and Plan: 11/15/2023: * UA showing 3+ protein, 21-50 urine wbc's, 2+ bacteria * Urine culture pending * Patient currently on Rocephin 11/16/23: * Urine culture resulted less than 21318 gm negative organisms seen * No need for further antibiotics as patient does not have UTI symptoms. 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 Likely due to bile salts. * Started patient on Benadryl cream and Cholestyramine BID to help with pruritus. * Continue lactulose * Will get GI on board for possible paracentesis * Patient is followed outpatient by Dr. Sinha. (4) Heart failure with preserved ejection fraction: Code(s): I50.30 - Unspecified diastolic (congestive) heart failure Status: Acute Assessment and Plan: 11/15/2023: * Last echo back in December of this year showed normal LV function with an estimated ejection fraction is 65-70%, normal right ventricular systolic function, and moderate aortic valve calcification and stenosis. * She was noted to have a heart murmur * EKG showed sinus rhythm with first-degree AV block, right bundle branch block, with a rate of 67, QTC was prolonged, left axis deviation * Patient was given a dose of IV Lasix x1 while in the emergency room 11/16/23: * No change to current treatment plan (5) Type 2 diabetes mellitus: Code(s): E11.9 - Type 2 diabetes mellitus without complications Status: Chronic Assessment and Plan: 11/15/2023: * Last hemoglobin A1c done on 01/14/2023 was 4.7 * Will get another hemoglobin A1c today as patient is requesting this to be done * Patient not on any home medication for this 11/16/23: * No change to current treatment plan * Repeat Hgb A1C 5.7 (6) Chronic kidney disease, stage 4 (severe): Code(s): N18.4 - Chronic kidney disease, stage 4 (severe) Status: Acute Assessment and Plan: 11/15/2023: * BUN 14, creatinine 1.8, EGFR 27, potassium 3.9, sodium 138, chloride 111 * We will continue to monitor labs 11/16/23: * BUN, 17, Creatinine 1.7 today * Continue to trend labs Time Spent With Patient Time with patient: 25 - 35 minutes Subjective Date/time seen: 11/16/23 14:42 Interval history: 10/16/23: This is a 78 year old female who presented to the hospital on 11/14/23 for evaluation of altered mental status. Patient is a resident of [facility]. Patient was seen earlier on the in the ER after sustaining a fall with head injury. She had a CT and plain films done which were all negative as well as hip and knee x-rays which were negative as well. She was discharged back to the facility and
--- NOTE | 2023-11-16 14:42 | PM.IMPN ---
Progress Note: A&P Assessment and Plan (1) Altered mental status: Code(s): R41.82 - Altered mental status, unspecified Status: Resolved Assessment and Plan: 11/15/23: Head CT is negative Patient currently alert oriented x3 11/16/23: resolved, patient is alert and oriented x3 (2) Abnormal urinalysis: Code(s): R82.90 - Unspecified abnormal findings in urine Status: Acute Assessment and Plan: 11/15/2023: UA showing 3+ protein, 21-50 urine wbc's, 2+ bacteria Urine culture pending Patient currently on Rocephin 11/16/23: Urine culture resulted less than 29250 gm negative organisms seen No need for further antibiotics as patient does not have UTI symptoms. 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 Likely due to bile salts. Started patient on Benadryl cream and Cholestyramine BID to help with pruritus. Continue lactulose Will get GI on board for possible paracentesis Patient is followed outpatient by Dr. Sinha. (4) Heart failure with preserved ejection fraction: Code(s): I50.30 - Unspecified diastolic (congestive) heart failure Status: Acute Assessment and Plan: 11/15/2023: Last echo back in December of this year showed normal LV function with an estimated ejection fraction is 65-70%, normal right ventricular systolic function, and moderate aortic valve calcification and stenosis. She was noted to have a heart murmur EKG showed sinus rhythm with first-degree AV block, right bundle branch block, with a rate of 67, QTC was prolonged, left axis deviation Patient was given a dose of IV Lasix x1 while in the emergency room 11/16/23: No change to current treatment plan (5) Type 2 diabetes mellitus: Code(s): E11.9 - Type 2 diabetes mellitus without complications Status: Chronic Assessment and Plan: 11/15/2023: Last hemoglobin A1c done on 01/14/2023 was 4.7 Will get another hemoglobin A1c today as patient is requesting this to be done Patient not on any home medication for this 11/16/23: No change to current treatment plan Repeat Hgb A1C 5.7 (6) Chronic kidney disease, stage 4 (severe): Code(s): N18.4 - Chronic kidney disease, stage 4 (severe) Status: Acute Assessment and Plan: 11/15/2023: BUN 14, creatinine 1.8, EGFR 27, potassium 3.9, sodium 138, chloride 111 We will continue to monitor labs 11/16/23: BUN, 17, Creatinine 1.7 today Continue to trend labs Time Spent With Patient Time with patient: 25 - 35 minutes Subjective Date/time seen: 11/16/23 14:42 Interval history: 10/16/23: This is a 78 year old female who presented to the hospital on 11/14/23 for evaluation of altered mental status. Patient is a resident of [facility]. Patient was seen earlier on the in the ER after sustaining a fall with head injury. She had a CT and plain films done which were all negative as well as hip and knee x-rays which were negative as well. She was discharged back to the facility and then was found to be more altered the morning of the so she was sent back for re-evaluation. Work up in the hospital included a head CT which again shown no acute findings. She also had a CT of the abdomen and pelvis that shown cirrhosis with evidence of portal hypertension, splenomegaly, ground-glass opacities of the lower lobes representing edema or pneumonia, small pleural effusions, and ascites. EKG shown NSR with 1st degree AV block
--- NOTE | 2023-11-16 14:52 | PCRCNOTE ---
Window of time for administration has passed. See next scheduled administration.
[2023-11-16] MEDS: CHOLESTYRAMINE LIGHT 4 GM POWD.PACK PO (17:18)
[2023-11-16] MEDS: traZODone HCL 50 MG TABLET 300 MG PO (21:00)
[2023-11-16] MEDS: MELATONIN 3 MG TABLET PO (21:01)
[2023-11-17 04:42] VITALS: BP 164/48; PULSE 71; RESP 16; TEMP 36.6; O2SAT 91
[2023-11-17] MEDS: LEVOTHYROXINE SODIUM 150 MCG TABLET PO (06:37)
[2023-11-17] MEDS: TRIAMCINOLONE ACET 0.1% CREAM 15 GM TUBE 1 APPLIC TOPICAL ×2 (06:38→14:08)
[2023-11-17 06:53] LABS: Basophils Percent Auto 0.7 % (0.2-1.2); Eosinophils Absolute Auto 0.2 K/mm3 (0-0.3); Eosinophils Percent Auto 6.7 % (0-4.4); Hematocrit 28.8 % (37.0-47.0); Immature Granulocyte Absolute 0.02 K/mm3 (0.00-0.031); Immature Granulocyte Percent A 0.7 % (0-0.5); Lymphocytes Absolute Auto 0.68 K/mm3 (0.9-3.2); Lymphocytes Percent Auto 25.4 % (18.3-44.2); Mean Corpuscular HGB Conc 31.3 g/dl (32-36); Mean Corpuscular Hemoglobin 29.1 pg (26-34); Mean Corpuscular Volume 93.2 fl (80-100); Mean Platelet Volume 9.2 fl (7.4-10.4); Monocytes Absolute Auto 0.2 K/mm3 (0.1-0.6); Monocytes Percent Auto 8.2 % (2.6-8.5); Neutrophils Absolute Auto 1.6 K/mm3 (1.3-6.7); Neutrophils Percent Auto 58.3 % (45.5-73.1); Platelet Count Result 174 k/mm3 (150-375); Red Blood Count 3.09 M/mm3 (4.2-5.4); Red Cell Distribution Width 14.6 % (11.5-14.5); White Blood Count 2.7 K/mm3 (4.5-10.0)
[2023-11-17 07:03] LABS: Alanine Aminotransferase 23 U/L (6-35); Albumin Level 2.8 g/dL (3.5-5.1); Alkaline Phosphatase 233 U/L (38-126); Anion Gap 3 mmol/L (8-16); Aspartate Amino Transferase 48 U/L (14-36); Bilirubin,Total 0.4 mg/dL (0.2-1.3); Blood Urea Nitrogen 15 mg/dL (7-17); Calcium 8.1 mg/dL (8.4-10.2); Carbon Dioxide 23 mmol/L (22-30); Chloride 113 mmol/L (98-107); Estimated CRCL calculation 18 ml/min; Estimated Glomerular Filt Rate 24; Glucose 118 mg/dL (65-110); Potassium 3.9 mmol/L (3.4-5.0); Sodium 139 mmol/L (137-145)
--- NOTE | 2023-11-17 07:26 | WPDGICN ---
Assessment and Plan Assessment and plan (1) Ascites: Code(s): R18.8 - Other ascites Status: Acute Assessment and Plan: this is new. She was seen in my office just 1 week ago with abdominal distension. She had not had ascites on the ultrasound done earlier this year but a very recent 1 ordered by someone attending to her at her [facility] facility had noted ascites. We have been trying to arrange an outpatient paracentesis but insurance took sometime approving it. Therefore we can proceed with that today. Although it is likely due to her cirrhosis. Because it is new, I will get a diagnostic paracentesis. (2) Altered mental status: Code(s): R41.82 - Altered mental status, unspecified Status: Resolved Assessment and Plan: She is alert today but apparently on admission was a bit disoriented. Her blood ammonia level is normal. (3) Drug-induced orofacial dyskinesia: Code(s): G24.01 - Drug induced subacute dyskinesia Status: Acute Assessment and Plan: She has had tardive dyskinesia for quite some time that I believe this is secondary to medication. (4) Chronic anemia: Code(s): D64.9 - Anemia, unspecified Status: Resolved Assessment and Plan: Her chronic anemia has been investigated several times in the past. She has never had obvious bleeding even though she will have a precipitous drop in her hemoglobin. She had complete colonoscopy 6 years ago which was unremarkable. An attempted colonoscopy by myself and also by Dr. Baca could not be done because of sigmoid colon fixation. She had been referred for virtual colonoscopy but apparently that had not been done. I performed a capsule endoscopy study earlier this year which was normal. Her hemoglobin earlier this year was 7.7. Now it is 9.0 and this seems to be in her normal range. (5) Chronic kidney disease, stage 4 (severe): Code(s): N18.4 - Chronic kidney disease, stage 4 (severe) Status: Acute Assessment and Plan: This I believe explains at least in part her chronic anemia. Plan Will obtain paracentesis today. Otherwise, from a gastrointestinal standpoint she could be discharged. GI Consult Note Consult date/time: 11/17/23 07:26 HPI: Nisha Sigala is a 78 year old female known to me with a history of stroke, chronic obstructive pulmonary disease, hypertension, hyperlipidemia, cirrhosis secondary to fatty liver disease with history of esophageal varices, and recent onset of ascites for which I had seen her in the office just a week ago, chronic kidney disease, type 2 diabetes mellitus, hypothyroidism, diastolic congestive heart failure, ESBL UTI, and anemia who presented to the emergency department via EMS from [facility] for evaluation of altered mental status. She is now alert. She states that she has not injured her head. She showed me scrapes on her shins the right greater than the left. Review of Systems Review of Systems: All systems reviewed & are unremarkable except as noted in HPI and below PMFSH Past Medical History Medical History Anxiety Aortic stenosis Moderate on echocardiogram in November 2021. Arthritis Asthma Bipolar disorder Cerebrovascular accident Cerebrovascular accident Chronic kidney disease, stage 4 (severe) Chronic obstructive pulmonary disease PFTs 06/28/2021: Moderate obstructive abnormality, moderate decreased diffusion capacity. 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
[2023-11-17] MEDS: GABAPENTIN 100 MG CAPSULE 200 MG PO ×2 (09:39→17:31)
[2023-11-17] MEDS: lamoTRIgine 50 MG TABLET PO ×2 (09:39→17:31)
[2023-11-17] MEDS: ESCITALOPRAM OXALATE 5 MG TABLET PO (09:39)
[2023-11-17] MEDS: LACTULOSE 20 GM/30 ML UDC 10 GM PO ×2 (09:39→17:31)
[2023-11-17] MEDS: ATORVASTATIN 40 MG TABLET PO (09:39)
[2023-11-17] MEDS: PANTOPRAZOLE 40 MG TABLET PO (09:39)
[2023-11-17] MEDS: lamoTRIgine 100 MG TABLET PO ×2 (09:39→17:30)
[2023-11-17] MEDS: FERROUS SULFATE 325 MG TABLET DR PO (09:40)
[2023-11-17 10:40] VITALS: PULSE 68; RESP 18
[2023-11-17] MEDS: UMECLIDINIUM/VILANTEROL 62.5-25 MCG ELLIPTA 1 PUFF INHALATION (10:40)
--- NOTE | 2023-11-17 12:48 | P.PNIM_ITS ---
Progress Note: A&P Assessment and Plan (1) Abnormal urinalysis: Code(s): R82.90 - Unspecified abnormal findings in urine Status: Acute Assessment and Plan: 11/15/2023: * UA showing 3+ protein, 21-50 urine wbc's, 2+ bacteria * Urine culture pending * Patient currently on Rocephin 11/16/23: * Urine culture resulted less than 51779 gm negative organisms seen * No need for further antibiotics as patient does not have UTI symptoms. 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 Likely due to bile salts. * Started patient on Benadryl cream and Cholestyramine BID to help with pruritus. * Continue lactulose * Will get GI on board for possible paracentesis * Patient is followed outpatient by Dr. Sinha. 11/16/23: * GI following * Plan for paracentesis today (3) Heart failure with preserved ejection fraction: Code(s): I50.30 - Unspecified diastolic (congestive) heart failure Status: Acute Assessment and Plan: 11/15/2023: * Last echo back in December of this year showed normal LV function with an estimated ejection fraction is 65-70%, normal right ventricular systolic function, and moderate aortic valve calcification and stenosis. * She was noted to have a heart murmur * EKG showed sinus rhythm with first-degree AV block, right bundle branch block, with a rate of 67, QTC was prolonged, left axis deviation * Patient was given a dose of IV Lasix x1 while in the emergency room 11/16/23: * No change to current treatment plan (4) Type 2 diabetes mellitus: Code(s): E11.9 - Type 2 diabetes mellitus without complications Status: Chronic Assessment and Plan: 11/15/2023: * Last hemoglobin A1c done on 01/14/2023 was 4.7 * Will get another hemoglobin A1c today as patient is requesting this to be done * Patient not on any home medication for this 11/16/23: * No change to current treatment plan * Repeat Hgb A1C 5.7 11/17/23: * Blood sugars ranging 118-129 * No change to current treatment plan (5) Chronic kidney disease, stage 4 (severe): Code(s): N18.4 - Chronic kidney disease, stage 4 (severe) Status: Acute Assessment and Plan: 11/15/2023: * BUN 14, creatinine 1.8, EGFR 27, potassium 3.9, sodium 138, chloride 111 * We will continue to monitor labs 11/16/23: * BUN, 17, Creatinine 1.7 today * Continue to trend labs 11/17/23: * BUN 15, creatinine 2.0 * Continue to trend labs Time Spent With Patient Time with patient: 25 - 35 minutes Subjective Date/time seen: 11/17/23 12:48 Interval history: 10/16/23: This is a 78 year old female who presented to the hospital on 11/14/23 for evaluation of altered mental status. Patient is a resident of [facility]. Patient was seen earlier on the in the ER after sustaining a fall with head injury. She had a CT and plain films done which were all negative as well as hip and knee x-rays which were negative as well. She was discharged back to the facility and then was found to be more altered the morning of the
--- NOTE | 2023-11-17 12:48 | PM.IMPN ---
Progress Note: A&P Assessment and Plan (1) Abnormal urinalysis: Code(s): R82.90 - Unspecified abnormal findings in urine Status: Acute Assessment and Plan: 11/15/2023: UA showing 3+ protein, 21-50 urine wbc's, 2+ bacteria Urine culture pending Patient currently on Rocephin 11/16/23: Urine culture resulted less than 83894 gm negative organisms seen No need for further antibiotics as patient does not have UTI symptoms. 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 Likely due to bile salts. Started patient on Benadryl cream and Cholestyramine BID to help with pruritus. Continue lactulose Will get GI on board for possible paracentesis Patient is followed outpatient by Dr. Sinha. 11/16/23: GI following Plan for paracentesis today (3) Heart failure with preserved ejection fraction: Code(s): I50.30 - Unspecified diastolic (congestive) heart failure Status: Acute Assessment and Plan: 11/15/2023: Last echo back in December of this year showed normal LV function with an estimated ejection fraction is 65-70%, normal right ventricular systolic function, and moderate aortic valve calcification and stenosis. She was noted to have a heart murmur EKG showed sinus rhythm with first-degree AV block, right bundle branch block, with a rate of 67, QTC was prolonged, left axis deviation Patient was given a dose of IV Lasix x1 while in the emergency room 11/16/23: No change to current treatment plan (4) Type 2 diabetes mellitus: Code(s): E11.9 - Type 2 diabetes mellitus without complications Status: Chronic Assessment and Plan: 11/15/2023: Last hemoglobin A1c done on 01/14/2023 was 4.7 Will get another hemoglobin A1c today as patient is requesting this to be done Patient not on any home medication for this 11/16/23: No change to current treatment plan Repeat Hgb A1C 5.7 11/17/23: Blood sugars ranging 118-129 No change to current treatment plan (5) Chronic kidney disease, stage 4 (severe): Code(s): N18.4 - Chronic kidney disease, stage 4 (severe) Status: Acute Assessment and Plan: 11/15/2023: BUN 14, creatinine 1.8, EGFR 27, potassium 3.9, sodium 138, chloride 111 We will continue to monitor labs 11/16/23: BUN, 17, Creatinine 1.7 today Continue to trend labs 11/17/23: BUN 15, creatinine 2.0 Continue to trend labs Time Spent With Patient Time with patient: 25 - 35 minutes Subjective Date/time seen: 11/17/23 12:48 Interval history: 10/16/23: This is a 78 year old female who presented to the hospital on 11/14/23 for evaluation of altered mental status. Patient is a resident of [facility]. Patient was seen earlier on the in the ER after sustaining a fall with head injury. She had a CT and plain films done which were all negative as well as hip and knee x-rays which were negative as well. She was discharged back to the facility and then was found to be more altered the morning of the so she was sent back for re-evaluation. Work up in the hospital included a head CT which again shown no acute findings. She also had a CT of the abdomen and pelvis that shown cirrhosis with evidence of portal hypertension, splenomegaly, ground-glass opacities of the lower lobes representing edema or pneumonia, small pleural effusions, and ascites. EKG shown NSR with 1st degree AV block, RBBB with a rate of 67, QTc prolonged. UA was obtained and revealed
[2023-11-17 14:30] LABS: Albumin Level 3.1 g/dL (3.5-5.1)
[2023-11-17 14:42] VITALS: BP 198/72; PULSE 67; RESP 24; TEMP 36.3; O2SAT 98
[2023-11-17] MEDS: hydrALAZINE HCL 20 MG/ML VIAL 10 MG IV PUSH (14:45)
[2023-11-17 15:15] LABS: Glucose Point of Care 119 mg/dl (65-105)
[2023-11-17] MEDS: hydrOXYzine HCL 25 MG TABLET PO (15:36)
[2023-11-17] MEDS: LORazepam INJ (*CRX) 2 MG/ML VIAL 0.5 MG IM (17:27)
[2023-11-17 18:40] VITALS: BP 178/58
--- NOTE | 2023-11-17 20:05 | PC.NURSE ---
Received call from OT who was working with [id number] that this pt (306-2) stated she was not feeling right . This RN to bedside to assess pt. Pt states she feels she was having a hard time breathing and didn't feel right. Pt vitals taken, 02 fine, but BP elevated to 179/50s. Left a VM for [employer] OPERATOR. Took a manual BP and pt BP 198/50s-60s. Called [employer] OPERATOR again. Called hospitalist office. Rubi to text [employer] OPERATOR. Received order for 10mg hydralazine one time dose IVP. Gave med. Reassured pt who appeared anxious. Recheck in 30 minutes showed BP 196/62. Pt appears extremely short of breath and extremely anxious. Called [employer]ING [employer] OPERATOR to bedside as she was on the floor. BL[employer]ING PLANT OPERATOR ordered rapid response. Stat CXR ordered for concern of pneumothorax (60-90mins s/p paracentesis). Vitals other than BP stable with 02 at 100% on RA. Deemed to be anxiety. IV bad, unable to restart. IV delivery table operator to bedside to place IV. BP return to 190s/60s. BL[employer]ING [employer] OPERATOR called. Suggested ativan to reduce anxiety/BP. BLENDING PLANT OPERATOR to place orders. Gave ativan. 30 minute recheck BP 184/72. 60 minute recheck 178/58. Pt resting in bed comfortably but roommate family at bedside with normal conversation/busyness. Report given to night RN regarding BP as well as shift.
[2023-11-17 20:30] VITALS: BP 160/61; PULSE 74; RESP 16; TEMP 36.4; O2SAT 99
[2023-11-17] MEDS: MELATONIN 3 MG TABLET PO (21:32)
[2023-11-17] MEDS: traZODone HCL 50 MG TABLET 300 MG PO (21:32)
[2023-11-18 04:11] VITALS: BP 124/40; PULSE 64; RESP 16; TEMP 36.6; O2SAT 100
[2023-11-18] MEDS: LEVOTHYROXINE SODIUM 150 MCG TABLET PO (05:56)
[2023-11-18 06:25] LABS: Basophils Percent Auto 1.2 % (0.2-1.2); Eosinophils Absolute Auto 0.2 K/mm3 (0-0.3); Eosinophils Percent Auto 5.2 % (0-4.4); Hematocrit 31.9 % (37.0-47.0); Hemoglobin 9.9 g/dL (12.0-15.0); Immature Granulocyte Absolute 0.02 K/mm3 (0.00-0.031); Immature Granulocyte Percent A 0.6 % (0-0.5); Lymphocytes Absolute Auto 0.93 K/mm3 (0.9-3.2); Lymphocytes Percent Auto 27.1 % (18.3-44.2); Mean Corpuscular Hemoglobin 29.3 pg (26-34); Mean Corpuscular Volume 94.4 fl (80-100); Mean Platelet Volume 9.4 fl (7.4-10.4); Monocytes Absolute Auto 0.2 K/mm3 (0.1-0.6); Monocytes Percent Auto 6.7 % (2.6-8.5); Neutrophils Percent Auto 59.2 % (45.5-73.1); Platelet Count Result 190 k/mm3 (150-375); Red Blood Count 3.38 M/mm3 (4.2-5.4); Red Cell Distribution Width 14.5 % (11.5-14.5); White Blood Count 3.4 K/mm3 (4.5-10.0)
[2023-11-18 06:27] LABS: Potassium 4.1 mmol/L (3.4-5.0)
[2023-11-18 06:29] LABS: Alanine Aminotransferase 25 U/L (6-35); Albumin Level 3.2 g/dL (3.5-5.1); Alkaline Phosphatase 252 U/L (38-126); Anion Gap 6 mmol/L (8-16); Aspartate Amino Transferase 49 U/L (14-36); Bilirubin,Total 0.4 mg/dL (0.2-1.3); Blood Urea Nitrogen 16 mg/dL (7-17); Calcium 8.5 mg/dL (8.4-10.2); Carbon Dioxide 24 mmol/L (22-30); Chloride 111 mmol/L (98-107); Estimated CRCL calculation 19 ml/min; Estimated Glomerular Filt Rate 26; Glucose 103 mg/dL (65-110); Sodium 141 mmol/L (137-145)
--- NOTE | 2023-11-18 06:56 | WPDGIPROGNO ---
Progress Note: A&P Assessment and Plan (1) Ascites: Code(s): R18.8 - Other ascites Status: Acute Assessment and Plan: this is new. She was seen in my office just 1 week ago with abdominal distension. She had not had ascites on the ultrasound done earlier this year but a very recent 1 ordered by someone attending to her at her shelter facility had noted ascites. We have been trying to arrange an outpatient paracentesis but insurance took sometime approving it. Therefore we can proceed with that today. Although it is likely due to her cirrhosis. Because it is new, I will get a diagnostic paracentesis. Paracentesis was done with 250 mL of fluid withdrawn. Cultures and cytology are pending. (2) Altered mental status: Code(s): R41.82 - Altered mental status, unspecified Status: Resolved Assessment and Plan: She is alert today but apparently on admission was a bit disoriented. Her blood ammonia level is normal. (3) Drug-induced orofacial dyskinesia: Code(s): G24.01 - Drug induced subacute dyskinesia Status: Acute Assessment and Plan: She has had tardive dyskinesia for quite some time that I believe this is secondary to medication. (4) Chronic anemia: Code(s): D64.9 - Anemia, unspecified Status: Resolved Assessment and Plan: Her chronic anemia has been investigated several times in the past. She has never had obvious bleeding even though she will have a precipitous drop in her hemoglobin. She had complete colonoscopy 6 years ago which was unremarkable. An attempted colonoscopy by myself and also by Dr. Baca could not be done because of sigmoid colon fixation. She had been referred for virtual colonoscopy but apparently that had not been done. I performed a capsule endoscopy study earlier this year which was normal. Her hemoglobin earlier this year was 7.7. Now it is 9.0 and this seems to be in her normal range. (5) Chronic kidney disease, stage 4 (severe): Code(s): N18.4 - Chronic kidney disease, stage 4 (severe) Status: Acute Assessment and Plan: This I believe explains at least in part her chronic anemia. Plan Will obtain paracentesis today. Otherwise, from a gastrointestinal standpoint she could be discharged. Will contact her when have results of paracentesis. I reminded her that we want her to be on Aldactone, 50 mg per day. Subjective Date/time seen: 11/18/23 06:56 she has no new complaints. Paracentesis was done yesterday. It yielded only 250 mL of cloudy fluid. I have testing it for cytology as well as other chemistries. It could be infectious but I doubt it. she would like to go home today. Exam Const: General: cooperative and healthy appearing Orientation/consciousness: patient oriented x3 HENMT: Head: normal to inspection Ears: hearing grossly normal bilaterally Mouth: Yes Normal oral and palatal mucosa present Eyes: General: appearance normal, both eyes and all related structures Neck: Neck: normal visual inspection Chest: Chest palpation & inspection: normal inspection of the chest Resp: Effort & Inspection: normal respiratory effort Auscultation: clear to auscultation bilaterally Cardio: Rate: regular rate Rhythm: regular rhythm GI: Inspection: normal to inspection GI Palp: Yes No hepatosplenomegaly present Auscultation: normal bowel sounds Skin: General skin exam: normal color and no jaundice Neuro: General: patient oriented x3 Speech: normal speech Motor exam (neuro): Other motor observations present ( Tardive dyskinesia type movement) Objective Data Vital Signs Vital Signs: Vital Signs - 24 hr 11/17/23 10:40 11/17/23 14:42 11/17/23 18:40 Temperature 36.3 C L Pulse Rate 68 67 Respiratory Rate 18 24 H Blood Pressure 198/72 H 178/58 H Pulse Oximetry 98 11/17/23 20:30 11/18/23 04:11 Temperature 36.4 C 36.6 C Pulse Rate 74 64 Respirator
[2023-11-18 07:42] LABS: Glucose Point of Care 107 mg/dl (65-105)
[2023-11-18 08:00] VITALS: BP 155/48
[2023-11-18] MEDS: UMECLIDINIUM/VILANTEROL 62.5-25 MCG ELLIPTA 1 PUFF INHALATION (08:16)
[2023-11-18 08:17] VITALS: O2SAT 95
[2023-11-18] MEDS: FERROUS SULFATE 325 MG TABLET DR PO (08:57)
[2023-11-18] MEDS: GABAPENTIN 100 MG CAPSULE 200 MG PO ×3 (08:57→17:01)
[2023-11-18] MEDS: lamoTRIgine 100 MG TABLET PO ×2 (08:57→17:01)
[2023-11-18] MEDS: LACTULOSE 20 GM/30 ML UDC 10 GM PO ×3 (08:57→17:01)
[2023-11-18] MEDS: SPIRONOLACTONE 50 MG TABLET PO (08:57)
[2023-11-18] MEDS: ESCITALOPRAM OXALATE 5 MG TABLET PO (08:57)
[2023-11-18] MEDS: ATORVASTATIN 40 MG TABLET PO (08:57)
[2023-11-18] MEDS: PANTOPRAZOLE 40 MG TABLET PO (08:57)
[2023-11-18] MEDS: lamoTRIgine 50 MG TABLET PO ×2 (08:57→17:01)
[2023-11-18] MEDS: CHOLESTYRAMINE LIGHT 4 GM POWD.PACK PO ×2 (08:58→17:01)
[2023-11-18] MEDS: TRIAMCINOLONE ACET 0.1% CREAM 15 GM TUBE 1 APPLIC TOPICAL (09:12)
[2023-11-18 09:14] VITALS: BP 153/95; BP 169/58
[2023-11-18 11:45] LABS: Glucose Point of Care 104 mg/dl (65-105)
--- NOTE | 2023-11-18 13:07 | PM.DS ---
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: Code(s): K75.81 - Nonalcoholic steatohepatitis (ZIEGLER); K74.60 - Unspecified cirrhosis of liver Status: Chronic (3) Heart failure with preserved ejection fraction: Code(s): I50.30 - Unspecified diastolic (congestive) heart failure Status: Acute (4) Type 2 diabetes mellitus: Code(s): E11.9 - Type 2 diabetes mellitus without complications Status: Chronic (5) Chronic kidney disease, stage 4 (severe): Code(s): N18.4 - Chronic kidney disease, stage 4 (severe) Status: Acute DS: Summary Hospital Course Hospital Course: This is a 78-year-old female with past medical history of CVA, COPD, hypertension, hyperlipidemia cirrhosis secondary to fatty liver disease, esophageal varices, CKD, type 2 diabetes, hypothyroidism, CHF anemia the present to ED on 11/14/2023 due to altered mental status. she had fallen out of her wheelchair and struck her head. she is evaluated in the ED. CT of the head and spine as well as the right hip and knee were without acute findings she was sent home to her fdc. Patient returned the next morning due to being more somnolent and more confused. CT abdomen pelvis showed known cirrhosis with evidence of portal hypertension, splenomegaly, ascites, small pleural effusions ground-glass opacities in lower lobes. UA was suspicious for UTI and she was started on antibiotics. Urine culture came back showing less than 10,000 growth and antibiotics were discontinued. Ammonia level 16. During hospitalizations alert oriented x4. GI consulted and recommended paracentesis. Patient paracentesis on 11/16/2023 Yielded 250 mL of fluid. patient has returned to baseline has no complaints. Recommend follow-up with her GI or braddisher at her earliest convenience. Patient medically stable at this time is cleared for discharge. Time Spent with Patient Time attestation: Total time spent providing and/or coordinating discharge services: Exam Narrative: GENERAL: Comfortable, no acute distress HENMT: moist mucous membranes EYES: EOM intact b/l NECK: no lymphadenopathy RESPIRATORY: clear to auscultation CARDIO: RRR GI: soft, nontender, bowel sounds present, distended SKIN: no rashes EXTREMITIES: no edema, redness or tenderness DS: Data Data Completed and Pending Pending studies at discharge: Pending at discharge 11/17/23 13:43 Cytology [PTH] Routine Labs on day of discharge: Labs from last 24 hours 11/18/23 11/18/23 11/18/23 11:31 07:27 05:12 WBC 3.4 L RBC 3.38 L Hgb 9.9 L Hct 31.9 L MCV 94.4 MCH 29.3 MCHC 31.0 L RDW 14.5 Plt Count 190 MPV 9.4 Immature Gran % (Auto) 0.6 H Neut % (Auto) 59.2 Lymph % (Auto) 27.1 [place] % (Auto) 6.7 Eos % (Auto) 5.2 H Baso % (Auto) 1.2 Lymph # (Auto) 0.93 [place] # (Auto) 0.2 Eos # (Auto) 0.2 Baso # (Auto) 0.0 Abs Immat Gran (auto) 0.02 Absolute Neuts (auto) 2.0 Absolute Nucleated RBC 0.0 Nucleated RBC % 0.0 Sodium 141 Potassium 4.1 Chloride 111 H Carbon Dioxide 24 Anion Gap 6 L BUN 16 Creatinine 1.90 H Estim Creat Clear Calc 19 Estimated GFR 26 L Glucose 103 POC Capillary Glucose 104 107 H Calcium 8.5 Total Bilirubin 0.4 AST 49 H ALT 25 Alkaline Phosphatase 252 H Total Protein 6.0 L Albumin 3.2 L Peritoneal LDH 11/17/23 11/17/23 11/17/23 15:12 13:54 13:00 WBC RBC Hgb Hct MCV MCH MCHC RDW Plt Count MPV Immature Gran % (Auto) Neut % (Auto) Lymph % (Auto) [place] % (Auto) Eos % (Auto) Baso % (Auto) Lymph # (Auto) [place] # (Au
[2023-11-18 14:00] VITALS: BP 172/52; PULSE 58; RESP 16; TEMP 36.3; O2SAT 100
[2023-11-18 15:50] LABS: SARS-CoV-2 RNA PCR Negative (Negative)
[2023-11-18 16:42] LABS: Glucose Point of Care 128 mg/dl (65-105)
[2023-11-18 20:25] LABS: Glucose Point of Care 108 mg/dl (65-105)
[2023-11-18 20:38] VITALS: BP 165/47; PULSE 66; RESP 16; TEMP 37.4; O2SAT 100
[2023-11-18] MEDS: cefuroxime axetiL 250 MG TABLET 500 MG PO (21:25)
[2023-11-18] MEDS: traZODone HCL 50 MG TABLET 300 MG PO (21:25)
[2023-11-18] MEDS: MELATONIN 3 MG TABLET PO (21:25)
[2023-11-19 04:51] VITALS: BP 141/40; PULSE 60; RESP 16; TEMP 36.3; O2SAT 100
[2023-11-19] MEDS: TRIAMCINOLONE ACET 0.1% CREAM 15 GM TUBE 1 APPLIC TOPICAL (05:08)
[2023-11-19] MEDS: LEVOTHYROXINE SODIUM 150 MCG TABLET PO (05:08)
[2023-11-19 06:03] LABS: Basophils Percent Auto 1.1 % (0.2-1.2); Eosinophils Absolute Auto 0.2 K/mm3 (0-0.3); Eosinophils Percent Auto 5.7 % (0-4.4); Hematocrit 28.8 % (37.0-47.0); Hemoglobin 8.6 g/dL (12.0-15.0); Immature Granulocyte Absolute 0.02 K/mm3 (0.00-0.031); Immature Granulocyte Percent A 0.8 % (0-0.5); Lymphocytes Absolute Auto 0.62 K/mm3 (0.9-3.2); Lymphocytes Percent Auto 23.6 % (18.3-44.2); Mean Corpuscular HGB Conc 29.9 g/dl (32-36); Mean Platelet Volume 9.4 fl (7.4-10.4); Monocytes Absolute Auto 0.2 K/mm3 (0.1-0.6); Monocytes Percent Auto 6.8 % (2.6-8.5); Neutrophils Absolute Auto 1.6 K/mm3 (1.3-6.7); Platelet Count Result 163 k/mm3 (150-375); Red Blood Count 2.97 M/mm3 (4.2-5.4); Red Cell Distribution Width 14.3 % (11.5-14.5); White Blood Count 2.6 K/mm3 (4.5-10.0)
[2023-11-19 06:15] LABS: Alanine Aminotransferase 20 U/L (6-35); Albumin Level 2.7 g/dL (3.5-5.1); Alkaline Phosphatase 197 U/L (38-126); Anion Gap 5 mmol/L (8-16); Aspartate Amino Transferase 37 U/L (14-36); Bilirubin,Total 0.2 mg/dL (0.2-1.3); Blood Urea Nitrogen 15 mg/dL (7-17); Calcium 7.9 mg/dL (8.4-10.2); Carbon Dioxide 21 mmol/L (22-30); Chloride 111 mmol/L (98-107); Estimated CRCL calculation 20 ml/min; Estimated Glomerular Filt Rate 27; Glucose 96 mg/dL (65-110); Sodium 137 mmol/L (137-145)
[2023-11-19 07:50] LABS: Hypochromasia 1+ (NORMAL); Platelet Estimate Adequate (Adequate); Schistocytes None Seen (NORMAL)
[2023-11-19] MEDS: UMECLIDINIUM/VILANTEROL 62.5-25 MCG ELLIPTA 1 PUFF INHALATION (09:38)
[2023-11-19] MEDS: lamoTRIgine 100 MG TABLET PO ×2 (09:47→17:27)
[2023-11-19] MEDS: ATORVASTATIN 40 MG TABLET PO (09:47)
[2023-11-19] MEDS: GABAPENTIN 100 MG CAPSULE 200 MG PO ×3 (09:47→17:26)
[2023-11-19] MEDS: ESCITALOPRAM OXALATE 5 MG TABLET PO (09:47)
[2023-11-19] MEDS: FERROUS SULFATE 325 MG TABLET DR PO (09:47)
[2023-11-19] MEDS: lamoTRIgine 50 MG TABLET PO ×2 (09:47→17:27)
[2023-11-19] MEDS: SPIRONOLACTONE 50 MG TABLET PO (09:48)
[2023-11-19] MEDS: PANTOPRAZOLE 40 MG TABLET PO (09:48)
[2023-11-19] MEDS: LACTULOSE 20 GM/30 ML UDC 10 GM PO ×3 (09:48→17:29)
[2023-11-19 10:49] LABS: Glucose Point of Care 160 mg/dl (65-105)
[2023-11-19] MEDS: LORazepam INJ (*CRX) 2 MG/ML VIAL 1 MG IV PUSH (10:54)
[2023-11-19 11:25] VITALS: BP 153/43; PULSE 77
[2023-11-19 14:00] VITALS: BP 151/57; PULSE 72; RESP 20; TEMP 36.6; O2SAT 96
--- NOTE | 2023-11-19 14:47 | PM.IMPN ---
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 Likely due to bile salts. Started patient on Benadryl cream and Cholestyramine BID to help with pruritus. Patient is followed outpatient by Dr. Sinha. Paracentesis done on 11/17/23 and yielded 250 mL of cloudy yellowish fluid Culture growing Gram-positive cocci and anaerobic bottle. Discussed findings with GI. Started patient on Ceftin. (2) Abnormal urinalysis: Code(s): R82.90 - Unspecified abnormal findings in urine Status: Acute Assessment and Plan: UA showing 3+ protein, 21-50 urine wbc's, 2+ bacteria [place]rine [place] [address] gm negative organisms seen Rocephin was discontinued. (3) Heart failure with preserved ejection fraction: Code(s): I50.30 - Unspecified diastolic (congestive) heart failure Status: Acute Assessment and Plan: Last echo back in December of this year showed normal LV function with an estimated ejection fraction is 65-70%, normal right ventricular systolic function, and moderate aortic valve calcification and stenosis. She was noted to have a heart murmur EKG showed sinus rhythm with first-degree AV block, right bundle branch block, with a rate of 67, QTC was prolonged, left axis deviation Patient was given a dose of IV Lasix x1 while in the emergency room (4) Type 2 diabetes mellitus: Code(s): E11.9 - Type 2 diabetes mellitus without complications Status: Chronic Assessment and Plan: Last hemoglobin A1c done on 01/14/2023 was 4.7 Patient not on any home medication for this (5) Chronic kidney disease, stage 4 (severe): Code(s): N18.4 - Chronic kidney disease, stage 4 (severe) Status: Acute Assessment and Plan: kidney function at baseline Subjective Date/time seen: 11/19/23 14:47 Interval history: Patient having extreme anxiety with her walked in the room. Patient worried about her blood pressure as well as her ascites. Discussed with patient that blood pressure is likely related to anxiety. give patient dose of Ativan and blood pressure and anxiety both improved. Discussed with her that we are waiting on culture results before discharging her. She was agreeable with this. She denies any abdominal pain at this time and she is remained afebrile. Exam Narrative: GENERAL: Comfortable, no acute distress HENMT: moist mucous membranes EYES: EOM intact b/l NECK: no lymphadenopathy RESPIRATORY: clear to auscultation CARDIO: RRR GI: soft, nontender, bowel sounds present, distended SKIN: no rashes EXTREMITIES: no edema, redness or tenderness Objective Data Vital Signs Vital Signs: Vital Signs - 24 hr 11/18/23 20:38 11/19/23 04:51 11/19/23 11:25 Temperature 99.3 F 97.3 F L Pulse Rate 66 60 77 Respiratory Rate 16 16 Blood Pressure 165/47 H 141/40 H 153/43 H Pulse Oximetry 100 100 11/19/23 14:00 Temperature 97.9 F Pulse Rate 72 Respiratory Rate 20 Blood Pressure 151/57 H Pulse Oximetry 96 Intake/Output Intake/Output: Intake & Output 11/16/23 11/17/23 11/18/23 11/19/23 23:59 23:59 23:59 23:59 Intake Total 698 257 339 2378 Output Total 290 550 Balance [phone] [id number] Meds/Results Medications: Active Medications Generic Name Dose Route Start Last Admin Trade Name Freq PRN Reason Stop Dose Admin Acetaminophen 650 mg 11/14/23 14:33 Acetaminophen 325 Mg Tablet PO Q6H PRN M
[2023-11-19] MEDS: CHOLESTYRAMINE LIGHT 4 GM POWD.PACK PO (18:31)
[2023-11-19] MEDS: MELATONIN 3 MG TABLET PO (20:49)
[2023-11-19] MEDS: traZODone HCL 50 MG TABLET 300 MG PO (20:49)
[2023-11-19] MEDS: cefuroxime axetiL 250 MG TABLET 500 MG PO (20:50)
[2023-11-19 21:52] LABS: Glucose Point of Care 138 mg/dl (65-105)
[2023-11-19 22:00] VITALS: BP 141/52; PULSE 64; RESP 18; TEMP 35.9; O2SAT 97
[2023-11-20 06:00] VITALS: BP 147/43; PULSE 65; RESP 16; TEMP 36.2; O2SAT 95
[2023-11-20] MEDS: LEVOTHYROXINE SODIUM 150 MCG TABLET PO (06:05)
--- NOTE | 2023-11-20 07:03 | WPDGIPROGNO ---
Progress Note: A&P Assessment and Plan (1) Ascites: Code(s): R18.8 - Other ascites Status: Acute Assessment and Plan: this is new. She was seen in my office just 1 week ago with abdominal distension. She had not had ascites on the ultrasound done earlier this year but a very recent 1 ordered by someone attending to her at her fdc facility had noted ascites. We have been trying to arrange an outpatient paracentesis but insurance took sometime approving it. Therefore we can proceed with that today. Although it is likely due to her cirrhosis. Because it is new, I will get a diagnostic paracentesis. Paracentesis was done with 250 mL of fluid withdrawn. Cultures and cytology are pending. There was g positive cocci seen on the Gram stain. Cultures are still negative. I think that we can send her home. (2) Altered mental status: Code(s): R41.82 - Altered mental status, unspecified Status: Resolved Assessment and Plan: She is alert today but apparently on admission was a bit disoriented. Her blood ammonia level is normal. (3) Drug-induced orofacial dyskinesia: Code(s): G24.01 - Drug induced subacute dyskinesia Status: Acute Assessment and Plan: She has had tardive dyskinesia for quite some time that I believe this is secondary to medication. (4) Chronic anemia: Code(s): D64.9 - Anemia, unspecified Status: Resolved Assessment and Plan: Her chronic anemia has been investigated several times in the past. She has never had obvious bleeding even though she will have a precipitous drop in her hemoglobin. She had complete colonoscopy 6 years ago which was unremarkable. An attempted colonoscopy by myself and also by Dr. Baca could not be done because of sigmoid colon fixation. She had been referred for virtual colonoscopy but apparently that had not been done. I performed a capsule endoscopy study earlier this year which was normal. Her hemoglobin earlier this year was 7.7. Now it is 9.0 and this seems to be in her normal range. (5) Chronic kidney disease, stage 4 (severe): Code(s): N18.4 - Chronic kidney disease, stage 4 (severe) Status: Acute Assessment and Plan: This I believe explains at least in part her chronic anemia. Plan Will obtain paracentesis today. Otherwise, from a gastrointestinal standpoint she could be discharged. Will contact her when have results of paracentesis. I reminded her that we want her to be on Aldactone, 50 mg per day. SBP is almost always caused by Gram-negative organisms. I think that she could be discharged on an oral antibiotic for 5 days that would cover a g positive cocci. While we are waiting for final results Subjective Date/time seen: 11/20/23 07:03 she has slept well. She feels good and wants to go home. She has no complaints today. I explained her that we kept her because of a positive Gram stain on her peritoneal fluid. Clinically, I suspect this was a contaminant. Cultures so far are negative. Exam Const: General: cooperative and healthy appearing Orientation/consciousness: patient oriented x3 HENMT: Head: normal to inspection Ears: hearing grossly normal bilaterally Mouth: Yes Normal oral and palatal mucosa present Eyes: General: appearance normal, both eyes and all related structures Neck: Neck: normal visual inspection Chest: Chest palpation & inspection: normal inspection of the chest Resp: Effort & Inspection: normal respiratory effort Auscultation: clear to auscultation bilaterally Cardio: Rate: regular rate Rhythm: regular rhythm GI: Inspection: normal to inspection Auscultation: normal bowel sounds Skin: General skin exam: normal color and no jaundice Neuro: General: patient oriented x3 Speech: normal speech Motor exam (neuro): Other motor observations present ( Tardive dyskinesia type movement) Objective Data Vital Signs V
[2023-11-20 07:23] LABS: Basophils Percent Auto 0.8 % (0.2-1.2); Eosinophils Absolute Auto 0.2 K/mm3 (0-0.3); Eosinophils Percent Auto 5.8 % (0-4.4); Hematocrit 27.2 % (37.0-47.0); Hemoglobin 8.4 g/dL (12.0-15.0); Immature Granulocyte Absolute 0.01 K/mm3 (0.00-0.031); Immature Granulocyte Percent A 0.4 % (0-0.5); Lymphocytes Absolute Auto 0.68 K/mm3 (0.9-3.2); Lymphocytes Percent Auto 26.4 % (18.3-44.2); Mean Corpuscular HGB Conc 30.9 g/dl (32-36); Mean Corpuscular Hemoglobin 29.3 pg (26-34); Mean Corpuscular Volume 94.8 fl (80-100); Mean Platelet Volume 9.1 fl (7.4-10.4); Monocytes Absolute Auto 0.2 K/mm3 (0.1-0.6); Monocytes Percent Auto 7.4 % (2.6-8.5); Neutrophils Absolute Auto 1.5 K/mm3 (1.3-6.7); Neutrophils Percent Auto 59.2 % (45.5-73.1); Platelet Count Result 146 k/mm3 (150-375); Red Blood Count 2.87 M/mm3 (4.2-5.4); Red Cell Distribution Width 14.3 % (11.5-14.5); White Blood Count 2.6 K/mm3 (4.5-10.0)
[2023-11-20 07:37] LABS: Alanine Aminotransferase 18 U/L (6-35); Albumin Level 2.6 g/dL (3.5-5.1); Alkaline Phosphatase 185 U/L (38-126); Anion Gap 3 mmol/L (8-16); Aspartate Amino Transferase 33 U/L (14-36); Bilirubin,Total 0.3 mg/dL (0.2-1.3); Blood Urea Nitrogen 16 mg/dL (7-17); Calcium 8.2 mg/dL (8.4-10.2); Carbon Dioxide 21 mmol/L (22-30); Chloride 114 mmol/L (98-107); Estimated CRCL calculation 19 ml/min; Estimated Glomerular Filt Rate 26; Glucose 97 mg/dL (65-110); Potassium 4.3 mmol/L (3.4-5.0); Sodium 138 mmol/L (137-145)
[2023-11-20 07:40] VITALS: PULSE 59; RESP 18; O2SAT 92
[2023-11-20] MEDS: UMECLIDINIUM/VILANTEROL 62.5-25 MCG ELLIPTA 1 PUFF INHALATION (07:40)
[2023-11-20] MEDS: SPIRONOLACTONE 50 MG TABLET PO (09:57)
[2023-11-20] MEDS: FERROUS SULFATE 325 MG TABLET DR PO (09:57)
[2023-11-20] MEDS: GABAPENTIN 100 MG CAPSULE 200 MG PO ×2 (09:57→13:10)
[2023-11-20] MEDS: ESCITALOPRAM OXALATE 5 MG TABLET PO (09:57)
[2023-11-20] MEDS: PANTOPRAZOLE 40 MG TABLET PO (09:58)
[2023-11-20] MEDS: lamoTRIgine 100 MG TABLET PO (09:58)
[2023-11-20] MEDS: lamoTRIgine 50 MG TABLET PO (09:58)
[2023-11-20] MEDS: LACTULOSE 20 GM/30 ML UDC 10 GM PO (09:58)
[2023-11-20] MEDS: ATORVASTATIN 40 MG TABLET PO (09:58)
[2023-11-20] MEDS: TRIAMCINOLONE ACET 0.1% CREAM 15 GM TUBE 1 APPLIC TOPICAL (10:04)
[2023-11-20] MEDS: DIPHENHYDRAMINE 1%/ZINC 0.1% CREAM 30 GM TUBE 1 APPLIC TOPICAL (10:04)
[2023-11-20] MEDS: hydrOXYzine HCL 25 MG TABLET PO (10:14)
--- NOTE | 2023-11-20 11:35 | PM.DS ---
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: Code(s): K75.81 - Nonalcoholic steatohepatitis (ZIEGLER); K74.60 - Unspecified cirrhosis of liver Status: Chronic (2) Abnormal urinalysis: Code(s): R82.90 - Unspecified abnormal findings in urine Status: Acute (3) Heart failure with preserved ejection fraction: Code(s): I50.30 - Unspecified diastolic (congestive) heart failure Status: Acute (4) Type 2 diabetes mellitus: Code(s): E11.9 - Type 2 diabetes mellitus without complications Status: Chronic (5) Chronic kidney disease, stage 4 (severe): Code(s): N18.4 - Chronic kidney disease, stage 4 (severe) Status: Acute DS: Summary Hospital Course Hospital Course: This is a 78-year-old female with past medical history of CVA, COPD, hypertension, hyperlipidemia cirrhosis secondary to fatty liver disease, esophageal varices, CKD, type 2 diabetes, hypothyroidism, CHF anemia the present to ED on 11/14/2023 due to altered mental status.? she had fallen out of her wheelchair and struck her head.? she is evaluated in the ED. CT of the head and spine as well as the right hip and knee were without acute findings she was sent home to her residential.? Patient returned the next morning due to being more somnolent and more confused.? CT abdomen pelvis showed known cirrhosis with evidence of portal hypertension, splenomegaly, ascites, small pleural effusions ground-glass opacities in lower lobes.? UA was suspicious for UTI and she was started on antibiotics.? Urine culture came back showing less than 10,000 growth and antibiotics were discontinued.? Ammonia level 16.? During hospitalizations alert oriented x4.? GI consulted and recommended paracentesis.? Patient paracentesis on 11/16/2023? Yielded 250 mL of fluid. patient has returned to baseline has no complaints.? fluid analysis was ordered and the anaerobic bottle came back Gram-positive cocci. This was discussed with the GI doctor. Patient was started on Ceftin for SBP coverage. Patient did not have any signs of abdominal tenderness, white blood cell count elevation or fever. Patient was re-evaluated by GI and GI believe the patient could be sent home on p.o. antibiotics and follow culture. Recommend follow-up with her GI or glass cut off supervisor at her earliest convenience.? Patient medically stable at this time is cleared for discharge. Time Spent with Patient Time attestation: Total time spent providing and/or coordinating discharge services: Exam Narrative: GENERAL: Comfortable, no acute distress HENMT: moist mucous membranes EYES: EOM intact b/l NECK: no lymphadenopathy RESPIRATORY: clear to auscultation CARDIO: RRR GI: soft, nontender, bowel sounds present, distended SKIN: no rashes EXTREMITIES: no edema, redness or tenderness DS: Data Data Completed and Pending Completed studies during hospitalization: Pending at discharge 11/17/23 13:43 Cytology [PTH] Routine Labs on day of discharge: Labs from last 24 hours 11/20/23 11/19/23 06:48 20:53 WBC 2.6 L RBC 2.87 L Hgb 8.4 L Hct 27.2 L MCV 94.8 MCH 29.3 MCHC 30.9 L RDW 14.3 Plt Count 146 L MPV 9.1 Immature Gran % (Auto) 0.4 Neut % (Auto) 59.2 Lymph % (Auto) 26.4 [place] % (Auto) 7.4 Eos % (Auto) 5.8 H Baso % (Auto) 0.8 Lymph # (Auto) 0.68 L [place] # (Auto) 0.2 Eos # (Auto) 0.2 Baso # (Auto) 0.0 Abs Immat Gran (auto) 0.01 Absolute Neuts (auto) 1.5 Absolute Nucleated RBC 0.0 Nucleated RBC % 0.0 Sodium 138 Potassium 4.3 Chloride 114 H Carbon Dioxide 21 L Anion Gap 3 L BUN 16 Creatinine 1.90 H Estim Creat Clear Calc 19 Estimated GFR 26 L Glucose 97 POC Capillary Glucose 138 H Calcium 8.2 L Total Bilirubin 0.3 AST 33 ALT 18 Alkaline Phosphatase 185 H
[2023-11-20 12:54] LABS: SARS-CoV-2 RNA PCR Negative (Negative)
[2023-11-24 20:31] LABS: LDH Peritoneal Fluid 55 U/L (<63)
== END 2023-11-20 14:42 | DRG 948 ==
LOC: ANHED 12:38 → ANH3MEDSUR 13:37
PROVIDERS: Internal Medicine Gastroenterology; Nurse Practitioner Acute Care; Physician Assistant; Admitting Provider Hospitalist; Emergency Provider Physician Assistant; PCP Family Medicine; Visit Provider Internal Medicine Critical Care Medicine
DX: R41.82 Altered mental status, unspecified (principal); I13.0 Hypertensive heart and chronic kidney disease with heart failure and stage 1 through stage 4 chronic kidney disease, or unspecified chronic kidney disease; N18.4 Chronic kidney disease, stage 4 (severe); I50.32 Chronic diastolic (congestive) heart failure; I85.10 Secondary esophageal varices without bleeding; K76.6 Portal hypertension; R18.8 Other ascites; K74.60 Unspecified cirrhosis of liver; K75.81 Nonalcoholic steatohepatitis (NASH); B96.89 Other specified bacterial agents as the cause of diseases classified elsewhere; D63.1 Anemia in chronic kidney disease; E11.22 Type 2 diabetes mellitus with diabetic chronic kidney disease; E11.42 Type 2 diabetes mellitus with diabetic polyneuropathy; E78.5 Hyperlipidemia, unspecified; E03.9 Hypothyroidism, unspecified; F41.9 Anxiety disorder, unspecified; G24.01 Drug induced subacute dyskinesia; J44.9 Chronic obstructive pulmonary disease, unspecified; K21.9 Gastro-esophageal reflux disease without esophagitis; L29.8 Other pruritus; R82.90 Unspecified abnormal findings in urine; R16.1 Splenomegaly, not elsewhere classified; Z11.52 Encounter for screening for COVID-19; Z86.73 Personal history of transient ischemic attack (TIA), and cerebral infarction without residual deficits; Z79.85 Long-term (current) use of injectable non-insulin antidiabetic drugs; Z98.49 Cataract extraction status, unspecified eye; Z96.1 Presence of intraocular lens; Z90.49 Acquired absence of other specified parts of digestive tract; Z90.710 Acquired absence of both cervix and uterus; Z90.89 Acquired absence of other organs; Z66 Do not resuscitate; Z87.891 Personal history of nicotine dependence
CPT/HCPCS: 36415; 49083; 70450; 71045; 72125; 72131; 73502; 73562; 74176; 80048; 80053; 80076; 80307; 81001; 82040; 82140; 82550; 82607; 82948; 83036; 83605; 83615; 83735; 84443; 85025; 85027; 85610; 85730; 87070; 87075; 87086; 87088; 87205; 87635; 87637; 88104; 88108; 88305; 93005; 94640; 96374; 96375; 99284; 99285; A9270; J0360; J1200; J1940; J2060; J7030

== ENCOUNTER 2023-12-14 21:24 | Observation (INO) | payer MEDICARE, MEDICAID, SELFPAY ==
--- NOTE | ~2023-12-14 | XR_ITS ---
EXAMINATION: XR chest 1V portable INDICATION: Shortness of breath TECHNIQUE: Portable AP chest at 2240 hours COMPARISON: 11/17/2023 FINDINGS: Cardiomegaly is noted. There is a mild diffuse interstitial pattern. No pleural effusion or pneumothorax. IMPRESSION: 1. Mild diffuse interstitial pattern, consistent with pneumonia and/or pulmonary edema. 2. Cardiomegaly. Reviewed, dictated and finalized at location [facility] IMPRESSION: 1. Mild diffuse interstitial pattern, consistent with pneumonia and/or pulmonar y edema. 2. Cardiomegaly.
[2023-12-14 21:35] VITALS: BP 168/51; PULSE 73; RESP 24; TEMP 36.8; O2SAT 98
[2023-12-14] MEDS: BENZTROPINE MESYLATE INJ 1 MG/ML AMPUL IM (22:10)
--- NOTE | 2023-12-14 22:11 | ECG_ITS ---
Measurements Intervals [place] Rate: 76 P: 30 VT: 162 QRS: -72 QRSD: 157 T: 52 QT: 454 QTc: 512 Interpretive Statements SINUS RHYTHM BORDERLINE AV CONDUCTION DELAY RIGHT BUNDLE BRANCH BLOCK BASELINE WANDER- I, II, V2 ABNORMAL ECG COMPARED TO ECG 11/14/2023 09:46:31 NO SIGNIFICANT CHANGES Electronically Signed On 12-15-2023 6:39:06 SANITATION DIRECTOR by George Moyer D.O.
--- NOTE | 2023-12-14 22:13 | ED.GENADULT ---
HPI - General Adult General Chief complaint: Shortness of Breath/Dyspnea Stated complaint: sob that started today Time Seen by Provider: 12/14/23 21:52 History of Present Illness HPI narrative: History taking is complicated by patient's psychiatric illness. This is a 78-year-old female history of psychiatric illness, COPD presenting to the ED for shortness of breath and spontaneous leg movements. patient states she has developed shortness of breath earlier today. It is not associated with fevers/ chills, cough chest pain or lower extremity edema. She does have some greater abdominal distension than usual. Patient also developed spontaneous movements of her lower legs today. She has history of tardive dyskinesia mouth but does not typically have these guarding movements that she is currently making Related Data Home Medications Medication Instructions Recorded Confirmed escitalopram oxalate 5 mg tablet 5 mg PO DAILY 08/21/21 12/09/23 trazodone 100 mg tablet 300 mg PO HS 08/21/21 12/09/23 glucagon HCl 1 mg solution for 1 mg subcut Q20M PRN Hypoglycemia 02/13/22 12/09/23 injection (Glucagon (HCl) Emergency Kit) sodium chloride 0.65 % nasal spray 1 spray intranasal BID PRN Dry 02/13/22 12/09/23 aerosol (Saline Mist) Nasal Passages hydroxyzine HCl 25 mg tablet 25 mg PO Q8H PRN Itching 08/25/22 12/09/23 acetaminophen 500 mg tablet 500 mg PO BID PRN Pain (Scale 09/14/22 12/09/23 Score 1-3) ferrous sulfate 325 mg (65 mg 325 mg PO DAILY 12/22/22 12/09/23 iron) tablet lactulose 20 gram/30 mL oral 10 g PO TID 01/01/23 12/09/23 solution atorvastatin 40 mg tablet 40 mg PO DAILY 01/22/23 12/09/23 gabapentin 600 mg tablet 200 mg PO TID 01/22/23 12/09/23 omeprazole 20 mg capsule,delayed 20 mg PO DAILY 01/22/23 12/09/23 release Allergies Allergy/AdvReac Type Severity Reaction Status Date / Time alendronate sodium Allergy Unknown Verified 11/10/23 09:41 amantadine Allergy Unknown Verified 11/10/23 09:41 chlorpromazine Allergy Unknown Verified 11/10/23 09:41 levofloxacin Allergy Unknown Verified 11/10/23 09:41 Macrolide Antibiotics Allergy Unknown Verified 11/10/23 09:41 mirtazapine Allergy Unknown Verified 11/10/23 09:41 Quinolones Allergy Unknown Verified 11/10/23 09:41 topiramate Allergy Unknown Verified 11/10/23 09:41 [facility] Past Medical History Medical History Anxiety Aortic stenosis Moderate on echocardiogram in November 2021. Arthritis Asthma Bipolar disorder Cerebrovascular accident Cerebrovascular accident Chronic kidney disease, stage 4 (severe) Chronic obstructive pulmonary disease PFTs 06/28/2021: Moderate obstructive abnormality, moderate decreased diffusion capacity. 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 Moreno History of partial hysterectomy History of thyroidectomy History of tonsillectomy Family History Family History Sibling Multiple sclerosis Father Acute myocardial infarction, Onset Age: 79 Cerebrovascular accident, Onset Age: 79 Mother Dementia Sibling Acute myocardial infarction, Onset Age:
[2023-12-14] MEDS: diphenhydrAMINE HCl INJ 50 MG/ML VIAL IV PUSH (22:28)
[2023-12-14] MEDS: MAGNESIUM SULF 2 GM/WATER 50ML 2 GM/50 ML BAG IVPB (22:29)
[2023-12-14 22:33] VITALS: RESP 22
[2023-12-14] MEDS: ALBUTEROL SULFATE NEB 2.5 MG/3 ML INH 10 MG INHALATION (22:33)
[2023-12-14] MEDS: IPRATROPIUM BR 0.02% INH SOLN 0.5 MG/2.5 ML VIAL 1 MG INHALATION (22:33)
[2023-12-14 22:38] LABS: Basophils Percent Auto 0.7 % (0.2-1.2); Eosinophils Absolute Auto 0.2 K/mm3 (0-0.3); Eosinophils Percent Auto 4.9 % (0-4.4); Hematocrit 27.7 % (37.0-47.0); Hemoglobin 8.4 g/dL (12.0-15.0); Immature Granulocyte Absolute 0.02 K/mm3 (0.00-0.031); Immature Granulocyte Percent A 0.5 % (0-0.5); Lymphocytes Absolute Auto 1.11 K/mm3 (0.9-3.2); Lymphocytes Percent Auto 25.7 % (18.3-44.2); Mean Corpuscular HGB Conc 30.3 g/dl (32-36); Mean Corpuscular Hemoglobin 29.7 pg (26-34); Mean Corpuscular Volume 97.9 fl (80-100); Mean Platelet Volume 9.2 fl (7.4-10.4); Monocytes Absolute Auto 0.2 K/mm3 (0.1-0.6); Monocytes Percent Auto 5.6 % (2.6-8.5); Neutrophils Absolute Auto 2.7 K/mm3 (1.3-6.7); Neutrophils Percent Auto 62.6 % (45.5-73.1); Platelet Count Result 116 k/mm3 (150-375); Red Blood Count 2.83 M/mm3 (4.2-5.4); Red Cell Distribution Width 17.6 % (11.5-14.5); White Blood Count 4.3 K/mm3 (4.5-10.0)
[2023-12-14 22:44] VITALS: PULSE 76; O2SAT 96
[2023-12-14 22:49] LABS: Alanine Aminotransferase 28 U/L (6-35); Albumin Level 3.6 g/dL (3.5-5.1); Alkaline Phosphatase 302 U/L (38-126); Anion Gap 7 mmol/L (8-16); Aspartate Amino Transferase 51 U/L (14-36); Bilirubin,Total 0.5 mg/dL (0.2-1.3); Blood Urea Nitrogen 14 mg/dL (7-17); Calcium 8.8 mg/dL (8.4-10.2); Carbon Dioxide 21 mmol/L (22-30); Chloride 110 mmol/L (98-107); Estimated Glomerular Filt Rate 34; Glucose 108 mg/dL (65-110); Lipase 146 U/L (23-300); Magnesium 1.9 mg/dL (1.6-2.3); Potassium 4.8 mmol/L (3.4-5.0); Sodium 138 mmol/L (137-145)
[2023-12-14 23:00] LABS: NT Pro B Type Natriuretic Pept 10700 pg/mL (19.9-100); Troponin I 0.024 ng/mL (0.000-0.034)
[2023-12-14 23:06] LABS: INR 1.2; Partial Thromboplastin Time 34.6 SECONDS (22.3-36.8); Prothrombin Time 15.8 Seconds (11.1-14.7)
[2023-12-14 23:12] LABS: Anisocytosis 1+ (NORMAL); Burr Cells 1+ (NORMAL); Ovalocytes 1+ (NORMAL); Schistocytes Rare (NORMAL)
[2023-12-14 23:15] LABS: Platelet Estimate Decreased (Adequate)
[2023-12-14 23:46] LABS: Influenza A QL RT-PCR Negative (Negative); Influenza B QL RT-PCR Negative (Negative); RSV RNA, RT-PCR Negative (Negative); SARS-CoV-2 RNA PCR Negative (Negative)
[2023-12-15] VITALS (17 sets, daily range): BP systolic 110–174; BP diastolic 64–85; PULSE 64–93; RESP 14–20; TEMP 36.6–37.1; O2SAT 91–98; BMI 25.1
--- NOTE | 2023-12-15 | ECHO_ITS ---
Patient Info Name: Nisha Sigala Age: 78 years : 1945 Gender: Female Ht: 60 in Wt: 125 lbs BSA: 1.56 m2 HR: 67 bpm BP: 177 / 83 mmHg Heart Rhythm: Sinus Rhythm Technical Quality: Good Exam Date: 12/15/2023 9:48 AM Exam Location: Echo Lab Patient Status: Outpatient Admit Date: 12/15/2023 Staff Ordering Physician: Jose Norris MD Chemists: Miles Cesar RDCS Attending Provider: Jose Norris MD Referring Physician: Jr CRUMP; Exam Type: CA echo doppler color flow Study Info Indications - sob Complete two-dimensional, color flow and Doppler transthoracic echocardiogram is performed. Summary 1. Complete two-dimensional, color flow and Doppler transthoracic echocardiogram is performed. 2. Left ventricular chamber dimension is normal. 3. Left ventricular systolic function is normal, estimated at 65-70%. 4. There is moderately increased left ventricular wall thickness. 5. The left ventricular diastolic function is grade I diastolic dysfunction. 6. Right ventricular systolic function is normal. 7. There is moderate-severe aortic valve calcification. 8. There is moderate aortic valve stenosis with a peak velocity of 342 cm/s, mean gradient of 22 mmHg, and aortic valve area of 1.2 cm2. 9. There is mild tricuspid valve regurgitation. 10. Normal inferior vena cava with >50% collapse upon inspiration consistent with normal right atrial pressure, 3 mmHg. 11. There is trivial pericardial effusion. Left Ventricle Left ventricular chamber dimension is normal. Left ventricular systolic function is normal, estimated at 65-70%. There is moderately increased left ventricular wall thickness. The left ventricular diastolic function is grade I diastolic dysfunction. Right Ventricle Right ventricular chamber dimension is normal. Right ventricular systolic function is normal. Left Atria Left atrial chamber dimension is normal. Right Atria Right atrial chamber dimension is normal. Atrial Septum Intact interatrial septum visualized by color flow imaging. Aortic Valve The aortic valve is not well visualized. There is moderate aortic valve stenosis with a peak velocity of 342 cm/s, mean gradient of 22 mmHg, and aortic valve area of 1.2 cm2. There is no aortic valve regurgitation. There is moderate-severe aortic valve calcification. Pulmonic Valve The pulmonic valve is not well visualized. Mitral Valve There is trace mitral valve regurgitation. The mitral valve annulus is moderately calcified. Tricuspid Valve There is mild tricuspid valve regurgitation. Pericardium/Pleural There is trivial pericardial effusion. Inferior Vena Cava Normal inferior vena cava with >50% collapse upon inspiration consistent with normal right atrial pressure, 3 mmHg. Aorta The aortic root size at the sinus of Valsalva is normal. Left Ventricular Outflow Tract Name Value Normal LVOT 2D LVOT Diameter 2.0 cm LVOT Doppler LVOT Peak Gradient 5 mmHg LVOT Mean Gradient 3 mmHg LVOT VTI 36 cm LVOT VTI/AV VTI Ratio 0.4 LVOT Stroke Volume 116 ml
--- NOTE | 2023-12-15 01:15 | PM.IMHP ---
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 Patient comes to the emergency room due to shortness of breath. Preliminary workup was significant for elevated brain natriuretic peptide 8 at 10,500, patient tested negative for influenza type A influenza type B RSV and COVID. Patient is unable to provide any meaningful history contributory to history of present illness. Most of the history has been obtained upon reviewing medical records and emergency room. Review of Systems Review of Systems: Shortness of breath PMFSH Past Medical History Medical History Anxiety Aortic stenosis Moderate on echocardiogram in November 2021. Arthritis Asthma Bipolar disorder Cerebrovascular accident Cerebrovascular accident Chronic kidney disease, stage 4 (severe) Chronic obstructive pulmonary disease PFTs 06/28/2021: Moderate obstructive abnormality, moderate decreased diffusion capacity. 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 Moreno History of partial hysterectomy History of thyroidectomy History of tonsillectomy Family History Family History Sibling Multiple sclerosis Father Acute myocardial infarction, Onset Age: 79 Cerebrovascular accident, Onset Age: 79 Mother Dementia Sibling Acute myocardial infarction, Onset Age: 65 Son Diabetes mellitus Other Depression Family history of arthritis Family history of elevated blood lipids Family history of thyroid disease Hypertension Social History Social History Social History: Surrogate medical decision maker: Gavino Sigala (son). Code status: Do not resuscitate. Smoking packs per day: 1 Smoking cigarettes per day: 20.0 Years smoked: 50 Smoking pack-years: 50.00 Smoking status: Former smoker Tobacco type: cigarettes Second hand tobacco smoke exposure: No Smoking end date: 11/30/14 Alcohol intake: never Substance use: never Substance use type: does not use Do You Feel Safe in your Home?: Yes Lack of Transportation: No Lack of Food: Never True Current Housing: I Have Housing Concerned About Future Housing: No Difficulty Paying Gas/Electric Bills: No Difficulty Paying for Meds: No Currently Unemployed: No Education: High School Diploma/GED Difficulty w/ Childcare or Family Care: No Living arrangements: long term Additional living arrangements comments: with 3 sons. Resident at [facility] [place]. 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 Spiritual care concerns: No Meds Home Medications and Allergies Home Medications Medication Instructions Recorded Confirmed Type lamotrigine 150 mg tab
[2023-12-15 01:37] LABS: CRP < 0.5 mg/dL (<1.0)
[2023-12-15] MEDS: FUROSEMIDE INJ 40 MG/4 ML VIAL IV PUSH (01:41)
[2023-12-15] MEDS: BENZTROPINE MESYLATE INJ 1 MG/ML AMPUL IM (01:41)
[2023-12-15 01:52] LABS: Procalcitonin 0.2 ng/mL
--- NOTE | 2023-12-15 02:57 | ADMGEN ---
This patient, Nisha Sigala, was admitted to Medical Room 348-01. Patient/family oriented to hospital policies and general routines including ID bracelet, bed and alarms, visiting hours, pain management, procedures, bathroom and other care routines, personal items, smoking policy, room service/diet, and visiting hours. Information on how to activate the Rapid Response Team has been discussed. Patient/Family are encouraged to report perceived risks to care and to ask questions if they do not understand what they are told or what they should do.
[2023-12-15] MEDS: IPRATROPIUM 0.5 MG/ALBUTEROL SULFATE 2.5 MG AMPUL.NEB 3 ML INHALATION ×2 (07:13→20:26)
[2023-12-15 08:42] LABS: Basophils Percent Auto 0.3 % (0.2-1.2); Eosinophils Percent Auto 0.3 % (0-4.4); Hematocrit 28.6 % (37.0-47.0); Hemoglobin 8.9 g/dL (12.0-15.0); Immature Granulocyte Absolute 0.02 K/mm3 (0.00-0.031); Immature Granulocyte Percent A 0.5 % (0-0.5); Lymphocytes Absolute Auto 0.48 K/mm3 (0.9-3.2); Mean Corpuscular HGB Conc 31.1 g/dl (32-36); Mean Corpuscular Hemoglobin 30.3 pg (26-34); Mean Corpuscular Volume 97.3 fl (80-100); Mean Platelet Volume 9.2 fl (7.4-10.4); Monocytes Absolute Auto 0.2 K/mm3 (0.1-0.6); Neutrophils Absolute Auto 3.3 K/mm3 (1.3-6.7); Neutrophils Percent Auto 82.9 % (45.5-73.1); Platelet Count Result 127 k/mm3 (150-375); Red Blood Count 2.94 M/mm3 (4.2-5.4); Red Cell Distribution Width 17.8 % (11.5-14.5)
[2023-12-15 08:45] LABS: Alanine Aminotransferase 32 U/L (6-35); Albumin Level 3.7 g/dL (3.5-5.1); Alkaline Phosphatase 310 U/L (38-126); Anion Gap 12 mmol/L (8-16); Aspartate Amino Transferase 53 U/L (14-36); Bilirubin,Total 0.5 mg/dL (0.2-1.3); Blood Urea Nitrogen 16 mg/dL (7-17); Carbon Dioxide 19 mmol/L (22-30); Chloride 108 mmol/L (98-107); Cholesterol 112 mg/dL (0-200); Estimated CRCL calculation 18 ml/min; Estimated Glomerular Filt Rate 29; Glucose 177 mg/dL (65-110); HDL Direct 55 mg/dL; Potassium 4.7 mmol/L (3.4-5.0); Sodium 139 mmol/L (137-145); Triglycerides 65 mg/dL (<150)
[2023-12-15 09:14] LABS: LDL Cholesterol Direct 39 mg/dL
[2023-12-15] MEDS: FERROUS SULFATE 325 MG TABLET DR PO (10:42)
[2023-12-15] MEDS: ESCITALOPRAM OXALATE 5 MG TABLET PO (10:42)
[2023-12-15] MEDS: LACTULOSE 20 GM/30 ML UDC 10 GM PO ×3 (10:42→17:37)
[2023-12-15] MEDS: SPIRONOLACTONE 50 MG TABLET PO (10:42)
[2023-12-15] MEDS: lamoTRIgine 50 MG TABLET PO ×2 (10:42→17:37)
[2023-12-15] MEDS: GABAPENTIN 100 MG CAPSULE 200 MG PO ×3 (10:42→17:37)
[2023-12-15] MEDS: lamoTRIgine 100 MG TABLET PO ×2 (10:43→17:37)
[2023-12-15] MEDS: LEVOTHYROXINE SODIUM 150 MCG TABLET PO (11:40)
--- NOTE | 2023-12-15 11:47 | PM.CNCAR ---
Assessment and Plan Assessment and plan (1) Acute on chronic diastolic heart failure: Code(s): I50.33 - Acute on chronic diastolic (congestive) heart failure Status: Acute Assessment and Plan: Patient does have signs of volume overload with pulmonary edema on CXR, elevated BNP. Volume overload state could be from diastolic heart failure, her known liver cirrhosis, or a combination of both. Echocardiogram done 12/15/2023 shows normal LVEF, moderate , grossly unchanged echocardiogram compared to prior study. Her IVC is normal in size and collapses >50%, indicating normal right atrial pressures. She was given dose of IV Lasix and although I/Os are not accurately recorded, she reports urinated quite a bit this morning. Please monitor strict I/Os. Will order Lasix IV 40mg once daily for now, can give additional doses if needed. Continue with Spironolactone. Likely will need maintenance dose of PO Lasix at time of discharge. (2) Hypertension: Code(s): I10 - Essential (primary) hypertension Status: Acute Assessment and Plan: Continue Spironolactone. (3) Hyperlipidemia: Code(s): E78.5 - Hyperlipidemia, unspecified Status: Acute Assessment and Plan: Continue Atorvastatin. (4) Chronic kidney disease, stage 4 (severe): Code(s): N18.4 - Chronic kidney disease, stage 4 (severe) Status: Acute Assessment and Plan: Stable, monitor renal function closely while diuresing. 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 (6) Aortic stenosis: Qualifiers: Cardiac valve disease etiology: nonrheumatic Qualified Code(s): I35.0 - Nonrheumatic aortic (valve) stenosis Code(s): I35.0 - Nonrheumatic aortic (valve) stenosis Status: Chronic Assessment and Plan: Remains in the moderate range. Outpatient follow up. History of Present Illness History of Present Illness Consult date/time: 12/15/23 11:47 Requesting physician: Quiana Hester APRN Consult reason: congestive heart failure Reason For Visit: Dyspnea Narrative: We are consulted for congestive heart failure. This is a 78 year old female with history of CVA, COPD, hypertension, hyperlipidemia, cirrhosis secondary to fatty liver disease, esophageal varices, CKD, type 2 diabetes, hypothyroidism, congestive heart failure, tardive dyskinesia, chronic anemia who presented with shortness of breath and spontaneous movements of her lower legs. ER workup shows chronic anemia, CKD with SCr of 1.5, BNP of 10,700. Troponins are negative. CXR with mild diffuse interstitial pattern, consistent with pneumonia and or pulmonary edema. EKG with sinus rhythm with RBBB. Echocardiogram done this morning which shows LVEF 65-70%, moderate , normal IVC size with >50% collapse. This is grossly unchanged compared to her prior echocardiogram from December 2022. Review of Systems Review of Systems: All systems reviewed & are unremarkable except as noted in HPI and below (HPI) [facility] Past Medical History Medical History Anxiety Aortic stenosis Moderate on echocardiogram in November 2021. Arthritis Asthma Bipolar disorder Cerebrovascular accident Cerebrovascular accident Chronic kidney disease, stage 4 (severe) Chronic obstructive pulmonary disease PFTs 06/28/2021: Moderate obstructive abnormality, moderate decreased diffusion capacity. Depression Diabetic peripheral neuropathy Esophageal varices Frequent falls Gastroesophageal reflux disease Heart failure with preserved ejection fraction History of infection due to ESBL Escherichia coli Hyperlipidemia Hypertension Hypothyroidism Insulin dependent diabetes mellitus Intraparenchymal hemorrhage of brain Irritable bowel syndrome Liver
--- NOTE | 2023-12-15 14:55 | PM.IMPN ---
Progress Note: A&P Assessment and Plan (1) Acute dyspnea: Code(s): R06.00 - Dyspnea, unspecified Status: Acute (2) COPD (chronic obstructive pulmonary disease): Qualifiers: COPD type: unspecified COPD Qualified Code(s): J44.9 - Chronic obstructive pulmonary disease, unspecified Code(s): J44.9 - Chronic obstructive pulmonary disease, unspecified Status: Acute Assessment and Plan: breathing treatments q.6 hours (3) Heart failure with preserved ejection fraction: Qualifiers: Heart failure chronicity: acute on chronic Qualified Code(s): I50.33 - Acute on chronic diastolic (congestive) heart failure Code(s): I50.30 - Unspecified diastolic (congestive) heart failure Status: Acute (4) Type 2 diabetes mellitus without complications: Qualifiers: Diabetes mellitus long term care administrator insulin use: without long term care administrator use Qualified Code(s): E11.9 - Type 2 diabetes mellitus without complications Code(s): E11.9 - Type 2 diabetes mellitus without complications Status: Acute (5) TODD (generalized anxiety disorder): Code(s): F41.1 - Generalized anxiety disorder Status: Acute (6) Chronic kidney disease, stage 4 (severe): Code(s): N18.4 - Chronic kidney disease, stage 4 (severe) Status: Acute (7) Bipolar disorder: Qualifiers: Active/Remission status: in full remission Most recent bipolar episode type: most recent episode unspecified type Qualified Code(s): F31.70 - Bipolar disorder, currently in remission, most recent episode unspecified Code(s): F31.9 - Bipolar disorder, unspecified Status: Acute (8) Extrapyramidal movement disorder: Code(s): G25.9 - Extrapyramidal and movement disorder, unspecified Status: Acute Plan Acute on chronic diastolic dysfunction -pBNP >01801 -cardiology consulted -IV Lasix daily -monitor renal function during diuresis -LVEF moderate no change from previous -EKG -chest x-ray: Pulmonary congestion -Optimize Tobi inhibitors, beta-blockers, ARNI -Daily weight. -fluid restriction -Optimize blood pressure less than 130/80. -Fall risk assessment. HLD -Resumed statin Acute on chronic renal failure -Stage 4 -monitor closely with diuresis -Avoid nephrotoxic drugs. -Avoid NSAIDs. -Monitor electrolytes especially potassium. -Antibiotic doses depending on creatinine clearance. -Cr 1.7 -Routine follow-up with Nephrology as an outpatient. ZIEGLER -continue spironolactone -HX of paracentesis -trend LFT's -f/U with GI O/P Tardive dyskinesia -started benztropine 1mg daily Code status: Full code per patient DVT prophylaxis: SCD's Stress ulcer prophylaxis: Protonix 40 daily PT/OT notes: Pending Disposition: Patient admitted to the med/tele unit for A/C diastolic HR. Continue with diuresis daily will [facility] back to [facility] when medical stable. -Patient's previous records reviewed on admission -ER notes reviewed in detail on admission -discussed all findings and current treatment plan with patient/Family/POA -Consultations reviewed for recommendations -Patient's disposition for safe discharge discussed with case advocate Dictation performed by [employer] direct speech recognition software, therefore master of ceremonies variants and typographical errors may occur. 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 Patient comes to the emergency room due to shortness of breath.? Preliminary workup was significa
[2023-12-15] MEDS: traZODone HCL 50 MG TABLET 200 MG PO (20:48)
[2023-12-15] MEDS: MELATONIN 3 MG TABLET PO (20:48)
[2023-12-16] VITALS (13 sets, daily range): BP systolic 129–141; BP diastolic 54–57; PULSE 65–82; RESP 16–18; TEMP 36.2–36.9; O2SAT 93–96
[2023-12-16] MEDS: IPRATROPIUM 0.5 MG/ALBUTEROL SULFATE 2.5 MG AMPUL.NEB 3 ML INHALATION ×3 (02:44→14:11)
[2023-12-16 06:04] LABS: Basophils Percent Auto 0.2 % (0.2-1.2); Eosinophils Percent Auto 0.2 % (0-4.4); Hematocrit 22.8 % (37.0-47.0); Immature Granulocyte Absolute 0.02 K/mm3 (0.00-0.031); Immature Granulocyte Percent A 0.4 % (0-0.5); Lymphocytes Absolute Auto 1.64 K/mm3 (0.9-3.2); Lymphocytes Percent Auto 32.6 % (18.3-44.2); Mean Corpuscular HGB Conc 29.8 g/dl (32-36); Mean Corpuscular Hemoglobin 29.4 pg (26-34); Mean Corpuscular Volume 98.7 fl (80-100); Mean Platelet Volume 9.6 fl (7.4-10.4); Monocytes Absolute Auto 0.3 K/mm3 (0.1-0.6); Neutrophils Absolute Auto 3.1 K/mm3 (1.3-6.7); Neutrophils Percent Auto 60.6 % (45.5-73.1); Platelet Count Result 117 k/mm3 (150-375); Red Blood Count 2.31 M/mm3 (4.2-5.4)
[2023-12-16 06:14] LABS: Alanine Aminotransferase 26 U/L (6-35); Albumin Level 2.9 g/dL (3.5-5.1); Alkaline Phosphatase 219 U/L (38-126); Anion Gap 7 mmol/L (8-16); Aspartate Amino Transferase 55 U/L (14-36); Bilirubin,Total 0.4 mg/dL (0.2-1.3); Blood Urea Nitrogen 22 mg/dL (7-17); Calcium 8.5 mg/dL (8.4-10.2); Carbon Dioxide 20 mmol/L (22-30); Chloride 111 mmol/L (98-107); Estimated CRCL calculation 15 ml/min; Estimated Glomerular Filt Rate 24; Glucose 105 mg/dL (65-110); Potassium 4.9 mmol/L (3.4-5.0); Sodium 138 mmol/L (137-145)
[2023-12-16 06:19] LABS: Hemoglobin 6.8 g/dL (12.0-15.0)
[2023-12-16] MEDS: LEVOTHYROXINE SODIUM 150 MCG TABLET PO (06:37)
[2023-12-16 07:54] LABS: Anisocytosis 1+ (NORMAL); Schistocytes Rare (NORMAL)
[2023-12-16 07:55] LABS: Hypochromasia 1+ (NORMAL)
[2023-12-16] MEDS: UMECLIDINIUM/VILANTEROL 62.5-25 MCG ELLIPTA 1 PUFF INHALATION (08:09)
[2023-12-16] MEDS: FERROUS SULFATE 325 MG TABLET DR PO (09:05)
[2023-12-16] MEDS: LACTULOSE 20 GM/30 ML UDC 10 GM PO ×2 (09:05→12:09)
[2023-12-16] MEDS: lamoTRIgine 50 MG TABLET PO (09:05)
[2023-12-16] MEDS: BENZTROPINE MESYLATE 1 MG TABLET PO (09:05)
[2023-12-16] MEDS: SPIRONOLACTONE 50 MG TABLET PO (09:05)
[2023-12-16] MEDS: FUROSEMIDE INJ 40 MG/4 ML VIAL IV PUSH (09:05)
[2023-12-16] MEDS: lamoTRIgine 100 MG TABLET PO (09:05)
[2023-12-16] MEDS: ESCITALOPRAM OXALATE 5 MG TABLET PO (09:06)
[2023-12-16] MEDS: GABAPENTIN 100 MG CAPSULE 200 MG PO ×2 (09:06→12:09)
[2023-12-16 11:17] LABS: Hematocrit 26.2 % (37.0-47.0); Hemoglobin 7.8 g/dL (12.0-15.0)
[2023-12-16 12:00] LABS: IFOB Positive Control Positive; Immunochemical Fecal Occult Bl Negative (N)
--- NOTE | 2023-12-16 13:18 | PM.PNCARD ---
Progress Note: A&P Assessment and Plan (1) Acute on chronic diastolic heart failure: Code(s): I50.33 - Acute on chronic diastolic (congestive) heart failure Status: Acute Assessment and Plan: Patient does have signs of volume overload with pulmonary edema on CXR, elevated BNP. Volume overload state could be from diastolic heart failure, her known liver cirrhosis, or a combination of both. Echocardiogram done 12/15/2023 shows normal LVEF, moderate , grossly unchanged echocardiogram compared to prior study. Her IVC is normal in size and collapses >50%, indicating normal right atrial pressures. She was given IV Lasix and has diuresed well with this. Will transition to PO Lasix 20mg once daily. (2) Hypertension: Code(s): I10 - Essential (primary) hypertension Status: Acute Assessment and Plan: Continue Spironolactone. (3) Hyperlipidemia: Code(s): E78.5 - Hyperlipidemia, unspecified Status: Acute Assessment and Plan: Continue Atorvastatin. (4) Chronic kidney disease, stage 4 (severe): Code(s): N18.4 - Chronic kidney disease, stage 4 (severe) Status: Acute Assessment and Plan: Monitor renal function closely while diuresing. 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 (6) Aortic stenosis: Qualifiers: Cardiac valve disease etiology: nonrheumatic Qualified Code(s): I35.0 - Nonrheumatic aortic (valve) stenosis Code(s): I35.0 - Nonrheumatic aortic (valve) stenosis Status: Chronic Assessment and Plan: Remains in the moderate range. Outpatient follow up. Plan Patient can be discharged home from my standpoint. Recommendations and plan discussed with Hospitalist. Subjective Date/time seen: 12/16/23 13:18 Interval history: Reason for visit: Congestive heart failure HPI: We are consulted for congestive heart failure. This is a 78 year old female with history of CVA, COPD, hypertension, hyperlipidemia, cirrhosis secondary to fatty liver disease, esophageal varices, CKD, type 2 diabetes, hypothyroidism, congestive heart failure, tardive dyskinesia, chronic anemia who presented with shortness of breath and spontaneous movements of her lower legs. ER workup shows chronic anemia, CKD with SCr of 1.5, BNP of 10,700. Troponins are negative. CXR with mild diffuse interstitial pattern, consistent with pneumonia and or pulmonary edema. EKG with sinus rhythm with RBBB. Echocardiogram done this morning which shows LVEF 65-70%, moderate , normal IVC size with >50% collapse. This is grossly unchanged compared to her prior echocardiogram from December 2022. Date of service 12/16: Feeling much better today. No longer having shortness of breath. Asking when she can go home. Review of Systems Review of Systems: All systems reviewed & are unremarkable except as noted in HPI and below (HPI) Exam Const: General: comfortable and no acute distress HENMT: Mouth: Yes moist mucous membranes Eyes: General: appearance normal, both eyes and all related structures Sclera: sclerae normal Resp: Effort & Inspection: normal respiratory effort Cardio: Rate: regular rate Rhythm: regular rhythm GI: Inspection: distended Skin: General skin exam: normal color Neuro: Other: Spontaneous movement of her lower extremities noted Psych: Mental Status: mental status grossly normal Affect: normal affect Objective Data Vital Signs Vital Signs: Vital Signs - 24 hr 12/15/23 13:25 12/15/23 14:00 12/15/23 16:00 Temperature 36.8 C Pulse Rate 68 81 70 Respiratory Rate 18 18 Blood Pressure 174/65 H Pulse Oximetry 98 Oxygen Delivery 12/15/23 20:27 12/15/23 20:27 12/15/23 20:33 Temperature Pulse Rate 77 77 76 Respiratory Rate 20 20 20 Blood Pres
--- NOTE | 2023-12-16 14:04 | PM.DS ---
DS: Admitting Diagnosis Discharge Date 12/16/23 Admitting Diagnosis dyspnea DS: Discharge Diagnosis Discharge Diagnosis (1) Acute dyspnea: Code(s): R06.00 - Dyspnea, unspecified Status: Acute Assessment and Plan: pBNP >01907 on admission -cardiology consulted - transitioned to PO Lasix 20 mg once daily, cleared for d/c -LVEF moderate no change from previous -chest x-ray: Pulmonary congestion -Optimize Tobi inhibitors, beta-blockers, ARNI -Daily weight. -fluid restriction -Optimize blood pressure less than 130/80. (2) COPD (chronic obstructive pulmonary disease): Qualifiers: COPD type: unspecified COPD Qualified Code(s): J44.9 - Chronic obstructive pulmonary disease, unspecified Code(s): J44.9 - Chronic obstructive pulmonary disease, unspecified Status: Chronic Assessment and Plan: breathing treatments q.6 hours (3) Heart failure with preserved ejection fraction: Qualifiers: Heart failure chronicity: acute on chronic Qualified Code(s): I50.33 - Acute on chronic diastolic (congestive) heart failure Code(s): I50.30 - Unspecified diastolic (congestive) heart failure Status: Chronic Assessment and Plan: pBNP >67818 on admission -cardiology consulted - transitioned to PO Lasix 20 mg once daily, cleared for d/c -LVEF moderate no change from previous -chest x-ray: Pulmonary congestion -Optimize Tobi inhibitors, beta-blockers, ARNI -Daily weight. -fluid restriction -Optimize blood pressure less than 130/80. (4) Type 2 diabetes mellitus without complications: Qualifiers: Diabetes mellitus group home insulin use: without group home use Qualified Code(s): E11.9 - Type 2 diabetes mellitus without complications Code(s): E11.9 - Type 2 diabetes mellitus without complications Status: Chronic (5) TODD (generalized anxiety disorder): Code(s): F41.1 - Generalized anxiety disorder Status: Chronic (6) Chronic kidney disease, stage 4 (severe): Code(s): N18.4 - Chronic kidney disease, stage 4 (severe) Status: Chronic Assessment and Plan: -monitor closely with diuresis, remained around baseline for her -Monitor electrolytes especially potassium. -Routine follow-up with Nephrology as an outpatient. (7) Bipolar disorder: Qualifiers: Active/Remission status: in full remission Most recent bipolar episode type: most recent episode unspecified type Qualified Code(s): F31.70 - Bipolar disorder, currently in remission, most recent episode unspecified Code(s): F31.9 - Bipolar disorder, unspecified Status: Chronic (8) Extrapyramidal movement disorder: Code(s): G25.9 - Extrapyramidal and movement disorder, unspecified Status: Acute Assessment and Plan: continue benztropine 1mg daily Plan ZIEGLER -continue spironolactone -HX of paracentesis -trend LFT's -f/U with GI O/P DS: Summary Hospital Course Hospital Course: Patient is a 78 YO female with PMH of COPD, aortic stenosis, bipolar disorder, chronic kidney disease, gastroesophageal reflux disease, hypertension, hypothyroidism, insulin-dependent diabetes mellitus, 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 Patient admitted due to shortness of breath. Preliminary workup was significant for elevated BNP at 10,500. Resp panel negative. Most of the history was obtained upon reviewing medical records and emergency room. Patient on room air. Denies in any distress. ECHO showed normal LVEF with moderate . pBNP was elevated and CXR showed pulmonary congestion. Cardiology consulted and transitioned to PO lasix and cleared for d/c. Can follow up outpatient. Patient continues to have extrapyramidal movements, will continue Cogentin at d/c. Recheck of H&H was 7.6, will not transfuse at this time. Occult stool was negative for blood and patient denies any bleeding. This is chronic issues for pat
[2023-12-16 15:20] LABS: SARS-CoV-2 RNA PCR Negative (Negative)
== END 2023-12-16 16:59 ==
LOC: ANHED 12-15 01:06 → ANH3MED 12-15 02:35
PROVIDERS: Nurse Practitioner; Nurse Practitioner Family; Admitting Provider Internal Medicine; Emergency Provider Emergency Medicine; PCP Family Medicine; Visit Provider Internal Medicine
DX: J44.9 Chronic obstructive pulmonary disease, unspecified (principal); R09.89 Other specified symptoms and signs involving the circulatory and respiratory systems; F31.9 Bipolar disorder, unspecified; G24.9 Dystonia, unspecified; I13.0 Hypertensive heart and chronic kidney disease with heart failure and stage 1 through stage 4 chronic kidney disease, or unspecified chronic kidney disease; E11.22 Type 2 diabetes mellitus with diabetic chronic kidney disease; N18.4 Chronic kidney disease, stage 4 (severe); I50.30 Unspecified diastolic (congestive) heart failure; Z20.822 Contact with and (suspected) exposure to COVID-19; E11.42 Type 2 diabetes mellitus with diabetic polyneuropathy; I35.0 Nonrheumatic aortic (valve) stenosis; K75.81 Nonalcoholic steatohepatitis (NASH); K74.60 Unspecified cirrhosis of liver; M81.0 Age-related osteoporosis without current pathological fracture; F41.1 Generalized anxiety disorder; E78.5 Hyperlipidemia, unspecified; E03.9 Hypothyroidism, unspecified; M19.90 Unspecified osteoarthritis, unspecified site; K58.9 Irritable bowel syndrome, unspecified; Z66 Do not resuscitate; Z87.891 Personal history of nicotine dependence; Z86.73 Personal history of transient ischemic attack (TIA), and cerebral infarction without residual deficits; Z79.1 Long term (current) use of non-steroidal anti-inflammatories (NSAID); Z79.4 Long term (current) use of insulin; Z79.51 Long term (current) use of inhaled steroids; Z79.85 Long-term (current) use of injectable non-insulin antidiabetic drugs; Z79.899 Other long term (current) drug therapy; Z82.3 Family history of stroke; Z82.61 Family history of arthritis; Z84.89 Family history of other specified conditions
CPT/HCPCS: 36415; 71045; 80053; 80061; 82274; 83690; 83735; 83880; 84145; 84484; 85014; 85018; 85025; 85610; 85730; 86140; 87635; 87637; 93005; 93306; 94640; 96365; 96372; 96375; 96376; 99285; A9270; G0378; J0515; J1100; J1200; J1940; J3475

== ENCOUNTER 2024-01-04 12:06 | Emergency (ER) | payer MEDICARE, MEDICAID, SELFPAY ==
--- NOTE | ~2024-01-04 | XR_ITS ---
EXAMINATION: XR chest 1V portable DATE: 01/04/2024 14:41 INDICATION: Shortness of breath TECHNIQUE: frontal view of the chest was obtained. COMPARISON: Chest radiograph dated 12/14/2023 FINDINGS: The lungs are clear with no focal airspace opacities, pulmonary edema, pleural effusion or pneumothor ax. Cardiomegaly. Visualized bones and soft tissues are unremarkable. IMPRESSION: 1. Cardiomegaly. No acute cardiopulmonary disease. Reviewed, dictated and finalized at location A. 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
[2024-01-04 12:09] VITALS: BP 129/60; PULSE 63; RESP 16; TEMP 36.6; O2SAT 97
--- NOTE | 2024-01-04 13:28 | ECG_ITS ---
Measurements Intervals [place] Rate: 57 P: 51 MT: 206 QRS: -53 QRSD: 158 T: 39 QT: 488 QTc: 479 Interpretive Statements SINUS BRADYCARDIA RIGHT BUNDLE BRANCH BLOCK LEFT AXIS DEVIATION ABNORMAL ECG] COMPARED TO ECG 12/14/2023 22:30:54 NO CHANGE Electronically Signed On 01-04-2024 17:03:00 LAVATORY ATTENDANT by Chester Velez M.D.
--- NOTE | 2024-01-04 13:29 | ED.GENADULT ---
HPI - General Adult General Chief complaint: Unspecified <Minh Nevarez PA-C - Last Filed: 01/04/24 13:33> Stated complaint: MULTI ISSUES <Minh Nevarez PA-C - Last Filed: 01/04/24 13:33> Time Seen by Provider: 01/04/24 13:23 <Minh Nevarez PA-C - Last Filed: 01/04/24 13:33> Focused HPI: This is a 78-year-old female with PMH of COPD, psychiatric illness, cirrhosis, chronic ascites, CVA GENERAL: Appears dehydrated. Consistent rhythmic movements of the lower extremities and mouth/tongue. HEAD: Normocephalic, atraumatic. CHEST: No significant respiratory distress. Oxygen saturation 97% room air. She is breathing shallow but does not appear to be using accessory muscles. No adventitious breath sounds heard bilaterally. HEART: Regular rate and rhythm. Systolic murmur prominent NEURO: Alert and oriented x 2-3. Unsure of the day of the week but can not tell me the month, location and her full name. She is oriented to situation. Patient screened in triage and initial orders placed. Additional care and disposition to be based upon diagnostic testing and treatment. <Minh Nevarez PA-C - Last Filed: 01/04/24 13:33> Source: patient <Minh Nevarez PA-C - Last Filed: 01/04/24 13:33> Mode of arrival: EMS <Minh Nevarez PA-C - Last Filed: 01/04/24 13:33> History of Present Illness HPI narrative: 78-year-old female history of tardive dyskinesia, COPD, cirrhosis, ascites, CVA presenting to the emergency department for evaluation due to the care facility feeling that she was short of breath and was having increased movements of her legs. Upon arrival to the emergency department patient is alert, appropriate able to provide her past medical history during the examination. Patient states that she has no chest pain or shortness of breath. Patient states she does have increased movement of her legs. Patient states the increased movement of her legs is typical and nighttime but was worsened today. Patient denies any other pain or injury. <Guy Anderson MD - Last Filed: 01/04/24 19:25> Related Data Home medications: Home Medications Medication Instructions Recorded Confirmed escitalopram oxalate 5 mg tablet 5 mg PO DAILY 08/21/21 12/31/23 trazodone 100 mg tablet 200 mg PO HS 08/21/21 12/31/23 glucagon HCl 1 mg solution for 1 mg subcut Q20M PRN Hypoglycemia 02/13/22 12/31/23 injection (Glucagon (HCl) Emergency Kit) sodium chloride 0.65 % nasal spray 1 spray intranasal BID PRN Dry 02/13/22 12/31/23 aerosol (Saline Mist) Nasal Passages hydroxyzine HCl 25 mg tablet 25 mg PO Q8H PRN Itching 08/25/22 12/31/23 acetaminophen 500 mg tablet 1,000 mg PO BID PRN Pain (Scale 09/14/22 12/31/23 Score 1-3) ferrous sulfate 325 mg (65 mg 325 mg PO DAILY 12/22/22 12/31/23 iron) tablet lactulose 20 gram/30 mL oral 10 g PO TID 01/01/23 12/31/23 solution atorvastatin 40 mg tablet 40 mg PO DAILY 01/22/23 12/31/23 gabapentin 600 mg tablet 200 mg PO TID 01/22/23 12/31/23 omeprazole 20 mg capsule,delayed 20 mg PO DAILY 01/22/23 12/31/23 release PreserVision AREDS 1 tab-cap PO DAILY 12/15/23 12/31/23 cholecalciferol (vitamin D3) 1,250 1,250 mcg PO WEEKLY 12/15/23 12/31/23 mcg (50,000 unit) tablet clobetasol 0.05 % topical ointment 1 applic topical BID 12/15/23 12/31/23 cyanocobalamin (vitamin B-12) 1,000 mcg IM [id number] 12/15/23 12/31/23 1,000 mcg/mL injection solution ketoconazole 2 % topical cream 1 applic topical BID 12/15/23 12/31/23 <Minh Nevarez PA-C - Last Filed: 01/04/24 13:33> Allergies/adverse reactions: Allergies Allergy/AdvReac Type Severity Reaction Status Date / Time alendronate sodium Allergy Unknown Verified 11/10/23 09:41 amantadine Allergy Unknown Verified 11/10/23 09:41 chlorpromazine Allergy Unknown Verified 11/10/23 09:41 levofloxacin Allergy Unknown Verified 11/10/23 09:41 Macrolide Antibiotics Allergy Unknown Verified 11/10/23 09:41 mirtazapine Allergy
[2024-01-04 13:53] LABS: Basophils Percent Auto 0.9 % (0.2-1.2); Eosinophils Absolute Auto 0.2 K/mm3 (0-0.3); Eosinophils Percent Auto 4.3 % (0-4.4); Hematocrit 28.9 % (37.0-47.0); Lymphocytes Absolute Auto 1.02 K/mm3 (0.9-3.2); Mean Corpuscular HGB Conc 31.1 g/dl (32-36); Mean Corpuscular Hemoglobin 30.3 pg (26-34); Mean Corpuscular Volume 97.3 fl (80-100); Mean Platelet Volume 9.5 fl (7.4-10.4); Monocytes Absolute Auto 0.2 K/mm3 (0.1-0.6); Monocytes Percent Auto 6.3 % (2.6-8.5); Neutrophils Absolute Auto 2.1 K/mm3 (1.3-6.7); Neutrophils Percent Auto 59.5 % (45.5-73.1); Platelet Count Result 140 k/mm3 (150-375); Red Blood Count 2.97 M/mm3 (4.2-5.4); Red Cell Distribution Width 14.8 % (11.5-14.5); White Blood Count 3.5 K/mm3 (4.5-10.0)
[2024-01-04 13:59] LABS: Ammonia < 9 umol/L (9-30)
[2024-01-04 14:00] LABS: Alanine Aminotransferase 19 U/L (6-35); Albumin Level 3.6 g/dL (3.5-5.1); Alkaline Phosphatase 240 U/L (38-126); Anion Gap 9 mmol/L (8-16); Aspartate Amino Transferase 37 U/L (14-36); Bilirubin,Total 0.3 mg/dL (0.2-1.3); Blood Urea Nitrogen 23 mg/dL (7-17); Carbon Dioxide 18 mmol/L (22-30); Chloride 115 mmol/L (98-107); Estimated Glomerular Filt Rate 27; Glucose 71 mg/dL (65-110); Potassium 4.8 mmol/L (3.4-5.0); Sodium 142 mmol/L (137-145)
[2024-01-04 14:08] LABS: NT Pro B Type Natriuretic Pept 6100 pg/mL (19.9-100)
[2024-01-04 14:24] LABS: Influenza A QL RT-PCR Negative (Negative); Influenza B QL RT-PCR Negative (Negative); RSV RNA, RT-PCR Negative (Negative); SARS-CoV-2 RNA PCR Negative (Negative)
[2024-01-04 14:31] VITALS: O2SAT 98
[2024-01-04 14:34] VITALS: BP 163/97; PULSE 61; RESP 14; O2SAT 98
[2024-01-04] MEDS: diphenhydrAMINE HCl INJ 50 MG/ML VIAL 25 MG IV PUSH (16:30)
[2024-01-04 16:31] VITALS: BP 168/55; PULSE 66; RESP 17; O2SAT 96
[2024-01-04] MEDS: LORazepam INJ (*CRX) 2 MG/ML VIAL 1 MG IV PUSH (17:49)
[2024-01-04 17:50] VITALS: BP 169/55; PULSE 70; RESP 19; O2SAT 98
[2024-01-04 18:58] VITALS: BP 169/68; PULSE 75; RESP 23; TEMP 36.3; O2SAT 97
--- NOTE | 2024-01-04 19:11 | PC.NURSE ---
This RN called [facility] and spoke with Babs DHALIWAL and informed her that pt would be returning and that her son would be bringing her
== END 2024-01-04 19:14 ==
PROVIDERS: Physician Assistant; Emergency Provider Emergency Medicine; PCP Family Medicine
DX: G24.01 Drug induced subacute dyskinesia (principal); Z20.822 Contact with and (suspected) exposure to COVID-19; I13.0 Hypertensive heart and chronic kidney disease with heart failure and stage 1 through stage 4 chronic kidney disease, or unspecified chronic kidney disease; I50.9 Heart failure, unspecified; E11.22 Type 2 diabetes mellitus with diabetic chronic kidney disease; N18.4 Chronic kidney disease, stage 4 (severe); I35.0 Nonrheumatic aortic (valve) stenosis; E11.42 Type 2 diabetes mellitus with diabetic polyneuropathy; E78.5 Hyperlipidemia, unspecified; E89.0 Postprocedural hypothyroidism; K58.9 Irritable bowel syndrome, unspecified; K21.9 Gastro-esophageal reflux disease without esophagitis; K75.81 Nonalcoholic steatohepatitis (NASH); K74.60 Unspecified cirrhosis of liver; M19.90 Unspecified osteoarthritis, unspecified site; M81.0 Age-related osteoporosis without current pathological fracture; Z87.891 Personal history of nicotine dependence; Z86.73 Personal history of transient ischemic attack (TIA), and cerebral infarction without residual deficits; Z96.1 Presence of intraocular lens; Z98.49 Cataract extraction status, unspecified eye; Z90.49 Acquired absence of other specified parts of digestive tract; Z90.710 Acquired absence of both cervix and uterus; I51.7 Cardiomegaly
CPT/HCPCS: 36415; 71045; 80053; 82140; 83880; 85025; 87637; 93005; 96374; 96375; 99284; J1200; J2060

== ENCOUNTER 2024-01-08 19:46 | Emergency (ER) | payer MEDICARE, MEDICAID, SELFPAY ==
--- NOTE | ~2024-01-08 | XR_ITS ---
EXAMINATION: XR chest 1V portable DATE: 01/08/2024 20:28 INDICATION: Dyspnea. TECHNIQUE: A single frontal view of the chest was obtained. COMPARISON: Chest single view 01/04/2024 FINDINGS: There is mild elevation of left hemidiaphragm. No pneumonia, pleural effusion, or pneumotho rax. Cardiomegaly is noted. IMPRESSION: 1. Cardiomegaly. Reviewed, dictated and finalized at location E. EMS ACCOUNTANT IMPRESSION: 1. Cardiomegaly.
[2024-01-08 19:46] VITALS: BP 172/54; PULSE 86; RESP 15; TEMP 36.3; O2SAT 99
--- NOTE | 2024-01-08 20:21 | ECG_ITS ---
Measurements Intervals [place] Rate: 61 P: 35 CA: 180 QRS: -56 QRSD: 157 T: 41 QT: 484 QTc: 489 Interpretive Statements SINUS RHYTHM INTRAVENTRICULAR CONDUCTION DELAY [130+ ms QRS DURATION] ABNORMAL ECG LEFT AXIS DEVIATION COMPARED TO ECG 01/04/2024 14:31:01 SINUS RHYTHM NOW PRESENT INTRAVENTRICULAR CONDUCTION DELAY NOW PRESENT Electronically Signed On 01-09-2024 8:03:34 HAND SIZER by Mahendra Maravilla M.D.
[2024-01-08 20:49] LABS: Basophils Percent Auto 0.7 % (0.2-1.2); Eosinophils Absolute Auto 0.1 K/mm3 (0-0.3); Eosinophils Percent Auto 4.7 % (0-4.4); Hematocrit 26.4 % (37.0-47.0); Hemoglobin 8.1 g/dL (12.0-15.0); Immature Granulocyte Absolute 0.01 K/mm3 (0.00-0.031); Immature Granulocyte Percent A 0.4 % (0-0.5); Lymphocytes Absolute Auto 0.74 K/mm3 (0.9-3.2); Mean Corpuscular HGB Conc 30.7 g/dl (32-36); Mean Corpuscular Hemoglobin 29.3 pg (26-34); Mean Corpuscular Volume 95.7 fl (80-100); Mean Platelet Volume 9.3 fl (7.4-10.4); Monocytes Absolute Auto 0.2 K/mm3 (0.1-0.6); Neutrophils Absolute Auto 1.6 K/mm3 (1.3-6.7); Neutrophils Percent Auto 59.2 % (45.5-73.1); Platelet Count Result 117 k/mm3 (150-375); Red Blood Count 2.76 M/mm3 (4.2-5.4); Red Cell Distribution Width 14.8 % (11.5-14.5); White Blood Count 2.7 K/mm3 (4.5-10.0)
[2024-01-08 21:01] LABS: Lactic Acid Reflex 1.3 mmol/L (0.7-2.0)
[2024-01-08 21:03] LABS: INR 1.1; Prothrombin Time 15.3 Seconds (11.1-14.7)
[2024-01-08 21:04] LABS: Partial Thromboplastin Time 32.7 SECONDS (22.3-36.8)
[2024-01-08 21:28] LABS: Procalcitonin 0.2 ng/mL
[2024-01-08 21:37] LABS: Alanine Aminotransferase 20 U/L (6-35); Albumin Level 3.2 g/dL (3.5-5.1); Alkaline Phosphatase 211 U/L (38-126); Anion Gap 8 mmol/L (8-16); Aspartate Amino Transferase 41 U/L (14-36); Bilirubin,Total 0.2 mg/dL (0.2-1.3); Blood Urea Nitrogen 24 mg/dL (7-17); Calcium 8.8 mg/dL (8.4-10.2); Carbon Dioxide 21 mmol/L (22-30); Chloride 111 mmol/L (98-107); Estimated CRCL calculation 19 ml/min; Estimated Glomerular Filt Rate 26; Glucose 168 mg/dL (65-110); Potassium 4.2 mmol/L (3.4-5.0); Sodium 140 mmol/L (137-145)
[2024-01-08 21:41] LABS: Appearance Urine Clear (Clear); Bacteria Urine None Seen /hpf; Bilirubin Urine Negative (Negative); Blood Urine Negative (Negative); Color Urine Yellow (Yellow); Glucose Urine UA Negative (Negative); Ketones Urine Negative (Negative); Leukocyte Esterase Ur Negative LEU/UL (Negative); Nitrate Urine Negative (Negative); Protein Urine 3+ mg/dL (Negative); RBC Urine 0-2 /hpf (0-2); Specific Grav Ur 1.013 (1.001-1.035); Squamous Epithelial Cell Urine None seen /hpf (Few); Urobilinogen Urine 0.2 mg/dL (<2.0); WBC Urine 0-5 /hpf; pH Urine 5.5 (5.0-9.0)
[2024-01-08 21:48] LABS: Add Urine Microscopic? YES
[2024-01-08 21:48] LABS: NT Pro B Type Natriuretic Pept 3840 pg/mL (19.9-100)
--- NOTE | 2024-01-08 23:28 | ED.GENADULT ---
HPI - General Adult General Chief complaint: Weakness Stated complaint: weakness and fatigue Time Seen by Provider: 01/08/24 20:13 History of Present Illness HPI narrative: patient is a 78-year-old female who presents emergency department with chief complaint of a low iron history patient reports that she has an appointment on Thursday to evaluate her blood levels reports he has had multiple transfusions previously for low hemoglobin the patient is has no complaints currently patient has had blood levels below 7 in the past and most recently about a week ago had a hemoglobin of 9. Related Data Home Medications Medication Instructions Recorded Confirmed escitalopram oxalate 5 mg tablet 5 mg PO DAILY 08/21/21 01/06/24 trazodone 100 mg tablet 200 mg PO HS 08/21/21 01/06/24 glucagon HCl 1 mg solution for 1 mg subcut Q20M PRN Hypoglycemia 02/13/22 01/06/24 injection (Glucagon (HCl) Emergency Kit) sodium chloride 0.65 % nasal spray 1 spray intranasal BID PRN Dry 02/13/22 01/06/24 aerosol (Saline Mist) Nasal Passages hydroxyzine HCl 25 mg tablet 25 mg PO Q8H PRN Itching 08/25/22 01/06/24 acetaminophen 500 mg tablet 1,000 mg PO BID PRN Pain (Scale 09/14/22 01/06/24 Score 1-3) ferrous sulfate 325 mg (65 mg 325 mg PO DAILY 12/22/22 01/06/24 iron) tablet lactulose 20 gram/30 mL oral 10 g PO TID 01/01/23 01/06/24 solution atorvastatin 40 mg tablet 40 mg PO DAILY 01/22/23 01/06/24 gabapentin 600 mg tablet 200 mg PO TID 01/22/23 01/06/24 omeprazole 20 mg capsule,delayed 20 mg PO DAILY 01/22/23 01/06/24 release PreserVision AREDS 1 tab-cap PO DAILY 12/15/23 01/06/24 cholecalciferol (vitamin D3) 1,250 1,250 mcg PO WEEKLY 12/15/23 01/06/24 mcg (50,000 unit) tablet clobetasol 0.05 % topical ointment 1 applic topical BID 12/15/23 01/06/24 cyanocobalamin (vitamin B-12) 1,000 mcg IM [id number] 12/15/23 01/06/24 1,000 mcg/mL injection solution ketoconazole 2 % topical cream 1 applic topical BID 12/15/23 01/06/24 Allergies Allergy/AdvReac Type Severity Reaction Status Date / Time alendronate sodium Allergy Unknown Verified 11/10/23 09:41 amantadine Allergy Unknown Verified 11/10/23 09:41 benztropine Allergy Other Unverified 01/08/24 19:54 chlorpromazine Allergy Unknown Verified 11/10/23 09:41 levofloxacin Allergy Unknown Verified 11/10/23 09:41 Macrolide Antibiotics Allergy Unknown Verified 11/10/23 09:41 mirtazapine Allergy Unknown Verified 11/10/23 09:41 Quinolones Allergy Unknown Verified 11/10/23 09:41 topiramate Allergy Unknown Verified 11/10/23 09:41 Review of Systems Review of Systems: A 10 system review of systems was completed on the patient and is negative except for what is stated in the HPI. Nursing and ancillary documentation was reviewed. [facility] Past Medical History Medical History Anxiety Aortic stenosis Moderate on echocardiogram in November 2021. Arthritis Asthma Bipolar disorder Cerebrovascular accident Cerebrovascular accident Chronic kidney disease, stage 4 (severe) Chronic obstructive pulmonary disease PFTs 06/28/2021: Moderate obstructive abnormality, moderate decreased diffusion capacity. 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
[2024-01-09 00:24] VITALS: BP 128/76; PULSE 88; RESP 16; O2SAT 100
== END 2024-01-09 00:29 ==
PROVIDERS: Emergency Provider Emergency Medicine; PCP Family Medicine
DX: D64.9 Anemia, unspecified (principal); J45.909 Unspecified asthma, uncomplicated; I35.0 Nonrheumatic aortic (valve) stenosis; I11.0 Hypertensive heart disease with heart failure; I50.9 Heart failure, unspecified; E11.42 Type 2 diabetes mellitus with diabetic polyneuropathy; E78.5 Hyperlipidemia, unspecified; E89.0 Postprocedural hypothyroidism; K74.60 Unspecified cirrhosis of liver; K75.81 Nonalcoholic steatohepatitis (NASH); K58.9 Irritable bowel syndrome, unspecified; K21.9 Gastro-esophageal reflux disease without esophagitis; M81.0 Age-related osteoporosis without current pathological fracture; M19.90 Unspecified osteoarthritis, unspecified site; F41.9 Anxiety disorder, unspecified; F31.9 Bipolar disorder, unspecified; Z66 Do not resuscitate; Z86.73 Personal history of transient ischemic attack (TIA), and cerebral infarction without residual deficits; Z96.1 Presence of intraocular lens; Z98.42 Cataract extraction status, left eye; Z98.41 Cataract extraction status, right eye; Z90.49 Acquired absence of other specified parts of digestive tract; Z90.711 Acquired absence of uterus with remaining cervical stump; I45.9 Conduction disorder, unspecified; I51.7 Cardiomegaly
CPT/HCPCS: 36415; 71045; 80053; 81001; 83605; 83735; 83880; 84145; 84484; 85025; 85610; 85730; 93005; 99284

== ENCOUNTER 2024-05-17 07:12 | Inpatient (IN) | payer MEDICARE, MEDICAID, SELFPAY ==
[2024-05-17] VITALS (51 sets, daily range): BP systolic 83–175; BP diastolic 45–117; PULSE 55–82; RESP 11–26; TEMP 36.4–37.5; O2SAT 87–100; BMI 26.4
--- NOTE | ~2024-05-17 | CT_ITS ---
EXAMINATION: CT lumbar spine wo con DATE: 05/17/2024 08:19 INDICATION: Back pain. Low back injury. TECHNIQUE: Computed tomography (CT) of the lumbar spine was performed without intravenous contrast. A utomated exposure control and iterative reconstruction technique were employed. The dose-length produ ct was 1322.39 mGy-cm. COMPARISON: None FINDINGS: There is 4 mm anterolisthesis of L4 on L5. There is a chronic compression fracture of L3 wi th 2/5 loss of height centrally. There is severely decreased disc height at L2-L3, moderately decreas ed disc height at L3-L4, and severely decreased disc height at L4-L5 and L5-S1. There is Baastrup dis ease at L3-L4. The following disc levels are specifically discussed: L1-L2: The disc does not extend beyond the endplate margin. There is mild bilateral facet joint osteo arthritis. There is no neural foraminal stenosis. There is no central canal stenosis. L2-L3: The disc is bulging. There is severe bilateral facet joint osteoarthritis. There is mild bilat eral neural foraminal stenosis. There is mild central canal stenosis. L3-L4: The disc is bulging There is severe bilateral facet joint osteoarthritis. There is mild bilate ral neural foraminal stenosis. There is mild central canal stenosis. L4-L5: The disc is bulging. There is severe bilateral facet joint osteoarthritis. There is moderate b ilateral neural foraminal stenosis. There is moderate central canal stenosis. L5-S1: The disc is bulging. There is severe bilateral facet joint osteoarthritis. There is mild right and moderate left neural foraminal stenosis. There is mild central canal stenosis. IMPRESSION: 1. No fracture. 2. Severe lumbar spondylosis. Reviewed, dictated and finalized at location E.
--- NOTE | ~2024-05-17 | CT_ITS ---
EXAMINATION: CT brain wo con DATE: 05/17/2024 08:18 INDICATION: Head injury. TECHNIQUE: Computed tomography (CT) of the head was performed without intravenous contrast. The mA wa s adjusted according to patient size. Iterative reconstruction technique was employed. The dose-lengt h product was 1210.67 mGy-cm. COMPARISON: Head CT 11/14/2023 FINDINGS: There is an old infarct involving the left insula and left basal ganglia. There are scatter ed areas of low attenuation in the cerebral white matter. There is no intracranial hemorrhage, acute infarction, or abnormal intracranial mass lesion. There is expected dilatation of left lateral ventri bg. There are likely changes of ocular lens replacement surgeries. There is mild mucosal thickening in the paranasal sinuses. The mastoid air cells are normal. IMPRESSION: 1. Old infarct involving the left insula and left basal ganglia. 2. Stable mild nonspecific cerebral white matter disease, which likely represents chronic small vesse l ischemic disease. Reviewed, dictated and finalized at location E. IMPRESSION: 1. Old infarct involving the left insula and left basal ganglia. 2. Stable mild nonspecific cerebral white matter disease, which likely represen ts chronic small vessel ischemic disease.
--- NOTE | ~2024-05-17 | XR_ITS ---
EXAMINATION: XR knee LT 3V DATE: 05/17/2024 08:28 INDICATION: Left knee injury. TECHNIQUE: 3 views of left knee were obtained. COMPARISON: Left knee radiographs 09/14/2022 FINDINGS: Bone alignment is normal. No fracture. There is chondrocalcinosis of the menisci. There is mild osteoarthritis of medial and lateral compartments. No knee joint effusion. IMPRESSION: 1. Mild left knee osteoarthritis. Reviewed, dictated and finalized at location E.
--- NOTE | ~2024-05-17 | CT_ITS ---
EXAMINATION: CT knee LT wo con DATE: 05/20/2024 09:10 INDICATION: Left knee injury and pain. TECHNIQUE: Computed tomography (CT) of the left knee was performed without intravenous contrast. Auto mated exposure control and iterative reconstruction technique were employed. The dose-length product was 558.85 mGy-cm. COMPARISON: Left knee radiograph 05/17/2024 FINDINGS: Bone alignment is normal. No fracture. There is mild tricompartmental osteoarthritis. There is chondrocalcinosis of the menisci. There is a small knee joint effusion. IMPRESSION: 1. Mild left knee osteoarthritis. 2. Small left knee joint effusion. Reviewed, dictated and finalized at location A.
--- NOTE | ~2024-05-17 | XR_ITS ---
EXAMINATION: XR knee RT 3V DATE: 05/17/2024 08:28 INDICATION: Right knee injury. Fall. TECHNIQUE: 3 views of right knee were obtained. COMPARISON: Right knee radiographs 11/14/2023 FINDINGS: There is a fracture of lateral tibial plateau with up to 3 mm depression of the articular s urface. There is chondrocalcinosis of the menisci. Joint spaces are normal. There is a small knee bao nt effusion. IMPRESSION: 1. Split depression fracture of lateral tibial condyle. 2. Small right knee joint effusion. Reviewed, dictated and finalized at location E.
--- NOTE | ~2024-05-17 | XR_ITS ---
EXAMINATION: XR hip LT 2V w AP pelvis DATE: 05/20/2024 09:07 INDICATION: Left hip pain. Injury. TECHNIQUE: An anteroposterior view of the pelvis and 2 views of left hip were obtained. COMPARISON: Pelvis radiograph 11/14/2023 FINDINGS: Bone alignment is normal. There is severe lumbar spondylosis. No fracture. There is mild os teoarthritis of the hips. Surgical clips in the right upper quadrant are likely from cholecystectomy. A catheter overlies the bladder. IMPRESSION: 1. Mild osteoarthritis of the hips. Reviewed, dictated and finalized at location A.
--- NOTE | ~2024-05-17 | CT_ITS ---
EXAMINATION: CT cervical spine wo con DATE: 05/17/2024 08:19 INDICATION: Neck injury. TECHNIQUE: Computed tomography (CT) of the cervical spine was performed without intravenous contrast. Automated exposure control and iterative reconstruction technique were employed. The dose-length pro duct was 247.20 mGy-cm. COMPARISON: CT cervical spine 11/14/2023 FINDINGS: There is kyphosis of lower cervical spine. Vertebral body heights are normal. There is mild ly decreased disc height at C5-C6 and severely decreased disc height at C6-C7. The following disc lev els are specifically discussed: C2-C3: There is no uncovertebral joint osteoarthritis. There is mild right and severe left facet join t osteoarthritis. There is mild left neural foraminal stenosis. There is no central canal stenosis. C3-C4: There is mild right and severe left uncovertebral joint osteoarthritis. There is severe bilate ral facet joint osteoarthritis. There is mild left neural foraminal stenosis. There is no central can al stenosis. C4-C5: There is no uncovertebral joint osteoarthritis. There is mild right and severe left facet join t osteoarthritis. There is mild left neural foraminal stenosis. There is mild central canal stenosis. C5-C6: There is no uncovertebral joint osteoarthritis. There is mild bilateral facet joint osteoarthr itis. There is no neural foraminal stenosis. There is mild central canal stenosis. C6-C7: There is severe bilateral uncovertebral joint osteoarthritis. There is moderate right and caron re left facet joint osteoarthritis. There is mild bilateral neural foraminal stenosis. There is mild central canal stenosis. C7-T1: There is no uncovertebral joint osteoarthritis. There is moderate right and severe left facet joint osteoarthritis. There is mild left neural foraminal stenosis. There is no central canal stenosi s. IMPRESSION: 1. No fracture. 2. Severe cervical spondylosis. Reviewed, dictated and finalized at location E.
--- NOTE | ~2024-05-17 | US_ITS ---
EXAMINATION: US abdomen limited DATE: 05/17/2024 13:47 INDICATION: Cirrhosis of the liver and ascites. TECHNIQUE: Multiple grayscale ultrasound images of the abdomen were obtained. COMPARISON: Ultrasound 11/17/2023 FINDINGS: A survey of the 4 quadrants of the abdomen demonstrates no ascites. IMPRESSION: 1. No ascites. Reviewed, dictated and finalized at location E. IMPRESSION: 1. No ascites.
--- NOTE | ~2024-05-17 | CT_ITS ---
EXAMINATION: CT knee RT wo con DATE: 05/17/2024 10:00 INDICATION: Tibial plateau fracture TECHNIQUE: High resolution computed tomography (CT) of the right knee was performed without intraveno us contrast. Additional sagittal and coronal reconstructions were performed. Automated exposure contr ol and iterative reconstruction technique were employed. The dose-length product was 990.12 mGy-cm. COMPARISON: Radiograph dated 05/17/2024 FINDINGS: Oblique comminuted impaction fracture along the posterior margin of the lateral tibial plateau. There is up to 2.5 mm step-off along the posterior margin of the articular cortex. One of the fracture ganesh hernandez also extends to the superolateral margin of the articulation with the proximal fibula. Small lipo hemarthrosis at the suprapatellar pouch. No other fractures identified. Chondrocalcinosis at the medi al and lateral menisci. There are some scattered atherosclerotic calcification along the popliteal ar anay. IMPRESSION: 1. Mildly depressed, mildly comminuted impaction fracture along the posterior lateral tibial plateau. Reviewed, dictated and finalized at location A. IMPRESSION: 1. Mildly depressed, mildly comminuted impaction fracture along the posterior l ateral tibial plateau.
[2024-05-17 07:34] LABS: Glucose Point of Care > 500 mg/dl (65-105)
--- NOTE | 2024-05-17 07:48 | ED.FALL ---
HPI - Fall General Chief Complaint: Fall Stated Complaint: FALL History of Present Illness HPI Narrative: 78-year-old female present to the emergency department for evaluation after having a fall in the shower injuring both knees. Patient does not recall if she hit her head or not and does not recall if she had any loss of consciousness. Patient's primary complaint is knee pain and lower back pain. Patient states most of these are new to the fall. Patient's blood sugar was read as greater than 600 by EMS. Related Data Home Medications Medication Instructions Recorded Confirmed escitalopram oxalate 5 mg tablet 5 mg PO DAILY 08/21/21 05/17/24 trazodone 100 mg tablet 200 mg PO HS 08/21/21 05/17/24 glucagon HCl 1 mg solution for 1 mg subcut Q20M PRN Hypoglycemia 02/13/22 05/17/24 injection (Glucagon (HCl) Emergency Kit) sodium chloride 0.65 % nasal spray 1 spray intranasal BID PRN Dry 02/13/22 05/17/24 aerosol (Saline Mist) Nasal Passages hydroxyzine HCl 25 mg tablet 25 mg PO Q8H PRN Itching 08/25/22 05/17/24 acetaminophen 500 mg tablet 1,000 mg PO BID PRN Pain (Scale 09/14/22 05/17/24 Score 1-3) ferrous sulfate 325 mg (65 mg 325 mg PO DAILY 12/22/22 05/17/24 iron) tablet atorvastatin 40 mg tablet 40 mg PO DAILY 01/22/23 05/17/24 gabapentin 600 mg tablet 200 mg PO Q8H 01/22/23 05/17/24 omeprazole 20 mg capsule,delayed 20 mg PO DAILY 01/22/23 05/17/24 release PreserVision AREDS 1 tab-cap PO DAILY 12/15/23 05/17/24 cholecalciferol (vitamin D3) 1,250 1,250 mcg PO WEEKLY 12/15/23 05/17/24 mcg (50,000 unit) tablet cyanocobalamin (vitamin B-12) 1,000 mcg IM [id number] 12/15/23 05/17/24 1,000 mcg/mL injection solution bumetanide 2 mg tablet 2 mg PO DAILY 05/17/24 05/17/24 lamotrigine 150 mg tablet 150 mg PO Q12H 05/17/24 05/17/24 Allergies Allergy/AdvReac Type Severity Reaction Status Date / Time alendronate sodium Allergy Unknown Verified 05/17/24 07:50 amantadine Allergy Unknown Verified 05/17/24 07:50 benztropine Allergy Other Verified 05/17/24 07:50 chlorpromazine Allergy Unknown Verified 05/17/24 07:50 levofloxacin Allergy Unknown Verified 05/17/24 07:50 Macrolide Antibiotics Allergy Unknown Verified 05/17/24 07:50 mirtazapine Allergy Unknown Verified 05/17/24 07:50 Quinolones Allergy Unknown Verified 05/17/24 07:50 topiramate Allergy Unknown Verified 05/17/24 07:50 Review of Systems Review of Systems: All systems reviewed & are unremarkable except as noted in HPI and below PMFSH Past Medical History Medical History (Updated 05/17/24 @ 14:13 by Destiny Bender PA-C) Anxiety Aortic stenosis Moderate on echocardiogram in November 2021. Arthritis Asthma Bipolar disorder Cerebrovascular accident Chronic kidney disease, stage 4 (severe) Chronic obstructive pulmonary disease PFTs 06/28/2021: Moderate obstructive abnormality, moderate decreased diffusion capacity. 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 Moreno History of partial hysterectomy History of thyroidectomy History of tonsillectomy Family History Family History Sibling Multiple sclerosis Father Acute myocardial infarction,
[2024-05-17 07:54] LABS: Alveolar/Arterial O2 Gradient 53.7 mmHg; Base Excess ABG -3.5 mEq/l (+/-2.0); Fractional Inspired Oxygen 21 %; HCO3 ABG 20.5 mEq/l (22.0-26.0); Oxygen Saturation ABG 91.3 % (95.0-100.0); Oxyhemoglobin 87.6 % THb (90.0-100.0); PCO2 ABG 31.7 mmHg (35.0-45.0); PO2 ABG 58.1 mmHg (80.0-100.0); PO2 FiO2 Ratio Arterial Blood 2.77 %; Total Hemoglobin 6.4 g/dL (12.0-18.0); pH ABG 7.428 (7.350-7.450)
[2024-05-17 07:55] LABS: Device ROOM AIR; Modified Allen's Test Pass; Site Drawn LEFT RADIAL
[2024-05-17 07:56] LABS: Basophils Percent Auto 0.4 % (0.2-1.2); Eosinophils Absolute Auto 0.1 K/mm3 (0-0.3); Eosinophils Percent Auto 2.4 % (0-4.4); Immature Granulocyte Absolute 0.03 K/mm3 (0.00-0.031); Immature Granulocyte Percent A 0.6 % (0-0.5); Immature Platelet Fraction Pct 3.3 % (0.9-11.2); Lymphocytes Absolute Auto 0.46 K/mm3 (0.9-3.2); Lymphocytes Percent Auto 8.5 % (18.3-44.2); Mean Corpuscular HGB Conc 32.2 g/dl (32-36); Mean Corpuscular Hemoglobin 30.3 pg (26-34); Mean Corpuscular Volume 93.8 fl (80-100); Mean Platelet Volume 11.4 fl (7.4-10.4); Monocytes Absolute Auto 0.3 K/mm3 (0.1-0.6); Monocytes Percent Auto 4.6 % (2.6-8.5); Neutrophils Absolute Auto 4.5 K/mm3 (1.3-6.7); Neutrophils Percent Auto 83.5 % (45.5-73.1); Platelet Count Result 67 k/mm3 (150-375); Red Blood Count 1.95 M/mm3 (4.2-5.4); Red Cell Distribution Width 15.5 % (11.5-14.5); White Blood Count 5.4 K/mm3 (4.5-10.0)
[2024-05-17] MEDS: SODIUM CHLORIDE 0.9% IV 1,000 ML 999 ML IV CONT ×2 (07:58→08:58)
--- NOTE | 2024-05-17 08:02 | PC.NURSE ---
pt to CT scan at this time.
[2024-05-17 08:06] LABS: Lactic Acid Reflex 1.5 mmol/L (0.7-2.0)
[2024-05-17 08:10] LABS: Beta-Hydroxybutyrate/Acetoacetate 0.25 mmol/L (0.02-0.27)
[2024-05-17 08:19] LABS: Hematocrit 18.3 % (37.0-47.0); Hemoglobin 5.9 g/dL (12.0-15.0)
[2024-05-17 08:20] LABS: Alanine Aminotransferase 25 U/L (6-35); Albumin Level 3.2 g/dL (3.5-5.1); Alkaline Phosphatase 185 U/L (38-126); Anion Gap 10 mmol/L (4-12); Anisocytosis 1+; Aspartate Amino Transferase 24 U/L (14-36); Bilirubin,Total 0.5 mg/dL (0.2-1.3); Blood Urea Nitrogen 48 mg/dL (7-17); Calcium 8.5 mg/dL (8.4-10.2); Carbon Dioxide 19 mmol/L (22-30); Chloride 93 mmol/L (98-107); Estimated CRCL calculation 14 ml/min; Estimated Glomerular Filt Rate 21; Glucose 880 mg/dL (65-110); Magnesium 2.1 mg/dL (1.6-2.3); Phosphorus 4.8 mg/dL (2.5-4.5); Platelet Estimate Decreased (Adequate); Potassium 4.9 mmol/L (3.4-5.0); Schistocytes None Seen; Sodium 122 mmol/L (137-145)
[2024-05-17 08:39] LABS: Hemoglobin A1C 10.4 % (<5.7)
[2024-05-17] MEDS: INSULIN HUMAN REGULAR (*BKC) 100 UNITS/ML 9 UNITS IV PUSH (08:39)
[2024-05-17 09:11] LABS: Appearance Urine Clear (Clear); Bacteria Urine None Seen /hpf; Bilirubin Urine Negative (Negative); Blood Urine Negative (Negative); Color Urine Yellow (Yellow); Glucose Urine UA 3+ mg/dL (Negative); Ketones Urine Negative (Negative); Leukocyte Esterase Ur Negative LEU/UL (Negative); Need Manual Microscopic Reviewed; Nitrate Urine Negative (Negative); Non Pathogenic Casts 0-2; Protein Urine 1+ mg/dL (Negative); RBC Urine 0-2 /hpf (0-2); Specific Grav Ur 1.022 (1.001-1.035); Squamous Epithelial Cell Urine None Seen /hpf (Few); Urobilinogen Urine 0.2 mg/dL (<2.0); WBC Urine 0-5 /hpf (0-3)
[2024-05-17 09:16] LABS: Add Urine Microscopic? NO
--- NOTE | 2024-05-17 09:31 | P.CONGI_ITS ---
I, Meet Villasenor MD, have provided a substantive portion of the care of this patient and discussed the patient with my Nurse Practitioner. I have reviewed any new relevant radiographic and laboratory results including medications. I agree with her documentation as noted below.?I personally performed the medical decision making and much of the history and exam for this encounter. briefly she has friend cirrhosis, history of varices, uncontrolled DM, chronic anemia, ckd with creat 1.9 among other problems who is a shelter resident here after she had a fall. Also noted hgb down to 5.9 (baseline 8-9), glucose 500's, hyponatremia. Report dark stools. Admitted to ICU, started on insulin drip, also iv protonix and octreotide given history of cirrhosis. Will do EGD tomorrow to check if bleeding. Assessment and Plan Assessment and plan (1) Acute upper gastrointestinal bleeding: Code(s): K92.2 - Gastrointestinal hemorrhage, unspecified Status: Acute (2) Cirrhosis: Qualifiers: Ascites presence: without ascites Hepatic cirrhosis type: unspecified hepatic cirrhosis Qualified Code(s): K74.60 - Unspecified cirrhosis of liver Code(s): K74.60 - Unspecified cirrhosis of liver Status: Resolved (3) Acute on chronic anemia: Code(s): D64.9 - Anemia, unspecified Status: Acute (4) Hyponatremia: Code(s): E87.1 - Hypo-osmolality and hyponatremia Status: Acute (5) Elevated alkaline phosphatase level: Code(s): R74.8 - Abnormal levels of other serum enzymes Status: Acute (6) Thrombocytopenia: Code(s): D69.6 - Thrombocytopenia, unspecified Status: Acute Plan 1) Acute on chronic anemia/upper GI bleed: Patient has chronic anemia that had been investigated several times in the past. She has never had an identified obvious source for her anemia. She had a completed colonoscopy over 6 years ago which was unremarkable. Capsule endoscopy in 2022 was unremarkable. Colonoscopy was attempted by Dr. Moreno and Dr. Baca but these attempts were unsuccessful due to sigmoid colon fixation and patient was referred for virtual colonoscopy but I have no records that this was ever done. Patient admits to black stools but was unable to provide any additional information other than she takes oral iron supplements. Labs today showed Hgb 6, Hct 18, MCV 94 and platelets 67, INR 1.4. 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 * Given Hx of varices, will start ocreotide gtt * Continue PPI * Primary care team to monitor H/H and transfuse as needed to keep Hgb >7 * Plan for EGD one stable 2) Cirrhosis with ascites/esophageal varices/elevated Alk Phos /Thrombocytopenia: FRIEND. MELD NA 27. Decompensated? Patient admits in increased abdominal girth. Unable to assess for asterixis given tremors. Last seen with Dr. Moreno in October 2022 but no follow up for cirrhosis management. LFT's normal except Alk Phos at 185. * Variceal screening: History of varices. Last EGD 10/31/2022 revealed small varices ( 3 mm) and mild portal hypertensive changes. 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 * Last paracentesis: Last paracentesis on record 11/17/2023 with 250 ml removed. Abdominal ultrasound with fluid analysis if ascites present * Current diuretics: On Lasix 20 mg daily and Aldactone 50 mg daily. Patient has chronic kidney disease stage 4 which limits more aggressive diuretic therapy * Diet: 2 gram sodium diet. Fluid restriction: Per primary care team and Nephrology * History of HE: No know Hx of HE but patient was on lactulose TID prior to admission without Xif
--- NOTE | 2024-05-17 09:31 | WPDGICN ---
Assessment and Plan Assessment and plan (1) Acute upper gastrointestinal bleeding: Code(s): K92.2 - Gastrointestinal hemorrhage, unspecified Status: Acute (2) Cirrhosis: Qualifiers: Ascites presence: without ascites Hepatic cirrhosis type: unspecified hepatic cirrhosis Qualified Code(s): K74.60 - Unspecified cirrhosis of liver Code(s): K74.60 - Unspecified cirrhosis of liver Status: Resolved (3) Acute on chronic anemia: Code(s): D64.9 - Anemia, unspecified Status: Acute (4) Hyponatremia: Code(s): E87.1 - Hypo-osmolality and hyponatremia Status: Acute (5) Elevated alkaline phosphatase level: Code(s): R74.8 - Abnormal levels of other serum enzymes Status: Acute (6) Thrombocytopenia: Code(s): D69.6 - Thrombocytopenia, unspecified Status: Acute Plan 1) Acute on chronic anemia/upper GI bleed: Patient has chronic anemia that had been investigated several times in the past. She has never had an identified obvious source for her anemia. She had a completed colonoscopy over 6 years ago which was unremarkable. Capsule endoscopy in 2022 was unremarkable. Colonoscopy was attempted by Dr. Moreno and Dr. Baca but these attempts were unsuccessful due to sigmoid colon fixation and patient was referred for virtual colonoscopy but I have no records that this was ever done. Patient admits to black stools but was unable to provide any additional information other than she takes oral iron supplements. Labs today showed Hgb 6, Hct 18, MCV 94 and platelets 67, INR 1.4. No aspirin or anticoags ICU REGISTERED NURSE. Given Hx of varices, will start ocreotide gtt Continue PPI Primary care team to monitor H/H and transfuse as needed to keep Hgb >7 Plan for EGD one stable 2) Cirrhosis with ascites/esophageal varices/elevated Alk Phos /Thrombocytopenia: ZIEGLER. MELD NA 27. Decompensated? Patient admits in increased abdominal girth. Unable to assess for asterixis given tremors. Last seen with Dr. Moreno in October 2022 but no follow up for cirrhosis management. LFT's normal except Alk Phos at 185. Variceal screening: History of varices. Last EGD 10/31/2022 revealed small varices ( 3 mm) and mild portal hypertensive changes. Beta leonidas: Patient was not on a beta leonidas ICU REGISTERED NURSE. Last paracentesis: Last paracentesis on record 11/17/2023 with 250 ml removed. Abdominal ultrasound with fluid analysis if ascites present Current diuretics: On Lasix 20 mg daily and Aldactone 50 mg daily. Patient has chronic kidney disease stage 4 which limits more aggressive diuretic therapy Diet: 2 gram sodium diet. Fluid restriction: Per primary care team and Nephrology History of HE: No know Hx of HE but patient was on lactulose TID prior to admission without Xifaxan. Unclear if patient has been adjusting the dosing to have 2-3 BM's daily. Tremors and mild confusion during todays exam, baseline known but ammonia normal. HCC screening: Last imaging 11/14/2023 showed cirrhosis, portal hypertension, ascites, and splenomegaly but no liver mass or lesions. AFP: no prior results. Patient will need ultrasound and AFP every 6 months for HCC screening. elevated lipase likely secondary to known chronic kidney disease and cirrhosis 3) Hyponatremia: Labs today show sodium 122, potassium 4.9. Patient was on Lasix 20 mg and Aldactone 50 mg prior to admission. Primary care team to continue monitoring will need to be corrected prior to considering endoscopic evaluation Thank you allowing me to share in the care of this very complicated patient. This report may have been done utilizing a voice recognition system. Attempts have been made to correct errors. However, there may be uncorrected grammatical, spelling, and recognition errors present. GI Consult Note Consult date/time: 05/17/24 09:31 Reason for consult: Upper GI bleed HPI: Nisha Sigala is a 78 year old female Past medical-niles
[2024-05-17] MEDS: PANTOPRAZOLE SODIUM IV 40 MG VIAL IV PUSH ×2 (09:33→20:13)
[2024-05-17] MEDS: HYDROcodone/acetaminophen (*CRX) 5-325 MG TABLET 1 TAB PO (09:34)
[2024-05-17 09:49] LABS: Glucose Point of Care > 500 mg/dl (65-105)
[2024-05-17 10:20] LABS: Glucose Point of Care 411 mg/dl (65-105)
[2024-05-17 10:51] LABS: Ammonia < 9 umol/L (9-30)
--- NOTE | 2024-05-17 11:09 | WPDCNINT ---
Assessment and Plan Assessment and plan (1) Hyperosmolar hyperglycemic state (HHS): Code(s): E11.00 - Type 2 diabetes mellitus with hyperosmolarity without nonketotic hyperglycemic-hyperosmolar coma (NKHHC) Status: Acute Assessment and Plan: Patient presented with fluid of 880 but negative beta hydroxybutyrate suggestive of HHS Received 2 L IV fluids and insulin push and blood sugar decreased to 411 Will start insulin drip Conservative IV fluids due to history of congestive heart failure and patient also going to receive PRBC (2) Acute upper gastrointestinal bleeding: Code(s): K92.2 - Gastrointestinal hemorrhage, unspecified Status: Acute Assessment and Plan: Patient presented with hemoglobin of 5.9. Patient has acute on chronic anemia. Patient is on scheduled ibuprofen at the intermediate Her Hemoccult was positive She had a colonoscopy 6 years ago and capsule endoscopy in 2022 which were unremarkable. She had unsuccessful attempt for colonoscopy in 2022 She also has history of cirrhosis and EGD done in 2021 revealed small varices GI has been consulted Transfuse 2 units PRBC and monitor hemoglobin IV PPI and octreotide infusion (3) Anemia: Code(s): D64.9 - Anemia, unspecified Status: Acute Assessment and Plan: Patient has history of chronic anemia and now appears to have hemoglobin worsened likely secondary to GI blood loss See above (4) Hyponatremia: Code(s): E87.1 - Hypo-osmolality and hyponatremia Status: Acute Assessment and Plan: Pseudohyponatremia secondary to hyperglycemia. Monitor (5) Fracture of tibial plateau: Code(s): S82.143A - Displaced bicondylar fracture of unspecified tibia, initial encounter for closed fracture Status: Acute Assessment and Plan: Patient evaluated by Ortho. 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 Ammonia is normal GI has been consulted Rocephin for SBP prophylaxis Paracentesis ordered by GI (8) Chronic kidney disease: Code(s): N18.9 - Chronic kidney disease, unspecified Status: Acute Assessment and Plan: Creatinine 2.3 which is similar to last recorded creatinine is from April and from February. Appears to be worsening CKD rather than YASSINE She has received IV fluids and is getting PRBC Monitor urine output electrolytes and creatinine Plan DVT prophylaxis -SCDs Stress ulcer prophylaxis -PPI Nutrition -npoi Code Status -patient is DNR as per documentation from intermediate. Total Critical Care Time - 35 minutes Due to a high probability of clinically significant, life threatening deterioration, the patient required my highest level of preparedness to intervene emergently and I personally spent this critical care time directly and personally managing the patient. This critical care time included obtaining a history; examining the patient; pulse oximetry; ordering and review of studies; arranging urgent treatment with development of a management plan; evaluation of patient's response to treatment; frequent reassessment; and discussions with other providers. It was exclusive of separately billable procedures and treating other patients and teaching time. Please see Assessment and Plan section and the rest of the note for further information on patient assessment and treatment Sock Liner Consult Note Consult date: 05/18/24 Reason for consult: Fall, anemia, hyperglycemia HPI: Nisha Sigala is a 78 year old female with multiple medical problems including CKD, cirrhosis secondary
[2024-05-17 11:12] LABS: Lactate Dehydrogenase 226 U/L (120-246)
[2024-05-17] MEDS: INSULIN HUMAN REGULAR (*BKC) 100 UNITS in SODIUM CHLORIDE 0.9% IV 99 ML 6 UNITS IV CONT (11:17)
[2024-05-17 11:20] LABS: INR 1.4
[2024-05-17 11:59] LABS: Glucose Point of Care 312 mg/dl (65-105)
--- NOTE | 2024-05-17 12:18 | PC.NURSE ---
obtained verbal consent on phone from Minh KHAN for blood transfusion
--- NOTE | 2024-05-17 12:27 | PC.NURSE ---
Spoke with [facility] and gave update on pts admission status to RN
--- NOTE | 2024-05-17 12:29 | ADMGEN ---
This patient, Nisha Sigala, was admitted to Intensive Care Unit-3. Patient/family oriented to hospital policies and general routines including ID bracelet, bed and alarms, visiting hours, pain management, procedures, bathroom and other care routines, personal items, smoking policy, room service/diet, and visiting hours. Information on how to activate the Rapid Response Team has been discussed. Patient/Family are encouraged to report perceived risks to care and to ask questions if they do not understand what they are told or what they should do.
[2024-05-17 12:55] LABS: Glucose Point of Care 206 mg/dl (65-105)
[2024-05-17] MEDS: EPOETIN ALFA-EPBX 20,000 UNITS/ML VIAL 20000 UNITS SUB-Q (13:08)
[2024-05-17 13:31] LABS: Immature Reticulocyte Fraction 26.1 % (3.0-15.9); Reticulocyte Hemoglobin Conten 34.2 pg (28.2-36.6); Reticulocyte Percent 9.14 % (0.7-4.3); Reticulocytes Absolute 0.18 10^6/uL (0.02-0.10)
[2024-05-17 13:42] LABS: Iron 27 ug/dL (37-170)
--- NOTE | 2024-05-17 13:44 | PM.IMHP ---
H&P: HPI History of Present Illness Date/Time: 05/17/24 13:30 Chief Complaint: Knee and back pain after a fall. 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 The patient provides the following history. She was sent in today for evaluation after complaining of low back and knee pain after slipping and her shower and falling forward onto her knees. She denies head trauma and loss of consciousness in the fall and states that it was purely mechanical. She has otherwise been feeling in her usual state of chronically poor health. She denies fever, chills, sweats, cold and flu symptoms, chest pain, shortness of breath, abdominal pain, nausea, vomiting, diarrhea, dysuria, hematemesis, and hematochezia. Her stools are always dark which she attributes to iron supplementation In the ED: She was afebrile on arrival with stable vital signs. Labs were significant for a WBC count of 5.4, hemoglobin 5.9, hematocrit 18.3%, platelets 67, INR 1.4, sodium 122, chloride 93, BUN 48, creatinine 2.30, glucose 80 ED, lactic acid 4.5, total protein 6.9, albumin 3.2, beta hydroxybutyrate 0.25. Urine is positive for 1+ protein and 3+ glucose. CT of the head, neck, and lumbar spine were without acute findings. Right knee CT showed a mildly depressed and mildly comminuted impaction fracture along the posterior lateral tibial plateau. She received a 2 L normal saline bolus and was started on insulin drip for hyperglycemia. She has also been started on octreotide drip and pantoprazole given her anemia and history of variceal bleeding. She has also been started on ceftriaxone for SBP prophylaxis. Review of Systems Review of Systems: 12 systems were reviewed and are negative except for as per HPI. [facility] Past Medical History Medical History Anxiety Aortic stenosis Moderate on echocardiogram in November 2021. Arthritis Asthma Bipolar disorder Cerebrovascular accident Chronic kidney disease, stage 4 (severe) Chronic obstructive pulmonary disease PFTs 06/28/2021: Moderate obstructive abnormality, moderate decreased diffusion capacity. 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 Moreno History of partial hysterectomy History of thyroidectomy History of tonsillectomy Family History Family History Sibling Multiple sclerosis Father Acute myocardial infarction, Onset Age: 79 Cerebrovascular accident, Onset Age: 79 Mother Dementia Sibling Acute myocardial infarction, Onset Age: 65 Son Diabetes mellitus Other Depression Family history of arthritis Family history of elevated blood lipids Family history of thyroid disease Hypertension Social History Soci
[2024-05-17 13:51] LABS: Lactate Dehydrogenase 223 U/L (120-246); Percent Iron Saturation 9 % (20-50)
--- NOTE | 2024-05-17 13:52 | PM.CNOR ---
Assessment and Plan Assessment and plan (1) Closed fracture of lateral portion of tibial plateau: Code(s): S82.123A - Displaced fracture of lateral condyle of unspecified tibia, initial encounter for closed fracture Status: Acute Plan Patient is a 78-year-old female who fell earlier today injuring her right knee. She was evaluated emergency room and x-rays and CT scan of the right knee demonstrate a moderately depressed fracture of the posterior margin of the lateral plateau. Is a central depression type pattern involving the posterior 1/3 of the lateral tibial plateau. I am suspicious there is a avulsion fracture from posterior surface of the fibular head as well. The central punch fragment that is the smaller posterior marginal fragment is depressed about 3.8 mm posteriorly. A larger fragment is depressed somewhat less bone the lateral slope of the posterior aspect of the tibial eminence. No other fractures identified at the knee. This pattern suggests the possibility of an anterior subluxation during the injury which might occur with that and anterior cruciate ligament injury. Given her age and small size of the fragment in this location, surgical repair of the fracture would not be recommended. She has significant medical problems and is admitted to the intensive care unit due to blood sugar of 880. Her hemoglobin A1c was 10.4. She also has a suspected GI bleed with hemoglobin of 5.9 compared with hemoglobin of 8.9 on May 10 7 days ago. She has been under evaluation with the mother superior was consulted and the GI specialist is also consult did see her. The presumption is that she has an active GI bleed. She does have history of cirrhosis of the liver and she has mild elevation of both INR and protime. Her liver enzymes however are normal and total both bilirubin is normal at 0.5. Alk-phos is elevated at 185. Ammonia less than 9. On exam she has a 2+ posterior tibial artery pulse absent dorsalis pedis on the right. She is able to move her forefoot up and down and of dorsiflexion on command. She is somewhat somnolent and tends to fall asleep. She has been complaining of pain and I will order scheduled Tylenol for her at low toes because of her history of cirrhosis and a low-dose oxycodone 2.5 mg q.4 hours. Usually we would employ a DVT prophylaxis with lower dose anticoagulant which may be contraindicated with her presumed GI bleed we will order instead an SCD from the left calf and a foot pump the right foot for DVT prophylaxis for now and when deemed appropriate she can have pharmacologic DVT prophylaxis that is appropriate for her. Her creatinine is 2.3 BUN 48 and creatinine clearance is estimated at 14 so the most appropriate DVT prophylaxis would be Lovenox 30 mg Q 24 hours. With respect to mobility, she seems very frail and I think that bed to chair transfers touch weight-bearing on the right would be appropriate. She has a knee immobilizer in place. She is thin I have cut the immobilizer down to size to fit her appropriately. History of Present Illness HPI Consult date: 05/17/24 Chief complaint: hyperglycemia,tibial plateau fracture,anemia,upper PMFSH Past Medical History Medical History Anxiety Aortic stenosis Moderate on echocardiogram in November 2021. Arthritis Asthma Bipolar disorder Cerebrovascular accident Cerebrovascular accident Chronic kidney disease, stage 4 (severe) Chronic obstructive pulmonary disease PFTs 06/28/2021: Moderate obstructive abnormality, moderate decreased diffusion capacity. Depression Diabetic peripheral neuropathy Esophageal varices Frequent falls Gastroesophageal reflux disease Heart failure with preserved ejection fraction History of infection due to ESBL Escherichia coli Hyperlipidemia Hypertension Hypothyroidism Insulin dependent diabetes mellitus Intraparenchymal hemorrhage of brain Irritable bowel syndrome L
[2024-05-17 14:04] LABS: Glucose Point of Care 115 mg/dl (65-105)
[2024-05-17 14:19] LABS: Thyroid Stimulating Hormone Reflex 0.861 uIU/mL (0.465-4.68)
[2024-05-17] MEDS: INSULIN GLARGINE (*BKC) 100 UNITS/ML 10 UNITS SUB-Q (14:20)
[2024-05-17] MEDS: SODIUM CHLORIDE 0.9% IV 250 ML 30 ML IV CONT (14:21)
[2024-05-17] MEDS: GABAPENTIN 100 MG CAPSULE 200 MG PO ×2 (14:22→20:13)
[2024-05-17 15:00] LABS: Folic Acid > 20.0 ng/mL (2.76->20); Vitamin B12 > 1000.0 pg/mL (239-931)
--- NOTE | 2024-05-17 15:06 | PCPTNOTE ---
Attempted PT evaluation, pt too drowsy to safely participate at this time per RN. Pt also remains on bedrest. RN aware of bedrest orders. Will follow.
[2024-05-17 15:43] LABS: Glucose Point of Care 54 mg/dl (65-105)
[2024-05-17 16:01] LABS: MRSA (PCR) NOT DETECTED (NOT DETECTE)
[2024-05-17 16:12] LABS: Glucose Point of Care 91 mg/dl (65-105)
[2024-05-17] MEDS: ACETAMINOPHEN 325 MG TABLET PO ×2 (16:33→20:13)
[2024-05-17 17:30] LABS: Glucose Point of Care 126 mg/dl (65-105)
--- NOTE | 2024-05-17 18:01 | PDONCCN ---
HPI - Date of Consult Date/Time: 05/17/24 18:01 Requesting Physician: Allan Campos MD Primary Care Provider: Abril Badillo MD - Consult Narrative Reason for consult: Anemia Narrative: Nisha Sigala is a 78 year old female with history of anemia of chronic kidney disease has been on Procrit [id number] units on a biweekly basis since September 2022. She was last seen in the office on May 10 and her hemoglobin at that time was 8.9. Patient also has history of liver cirrhosis. She came into the ER status post fall with injury of the right knee.CT scan of the right knee demonstrate a moderately depressed fracture of the posterior margin of the lateral plateau. Labs showed hemoglobin of 5.9. She denies any active bleeding. Platelet count 58923 dropped from 106,000 last checked on May 10. Abdominal ultrasound showed no ascites. She received her last Procrit injection on June 09. GI service was consulted and EGD was planned for the morning. Patient denies any fevers and chills. Denies any diarrhea and constipation. She seems to be slightly drowsy. Review of Systems - Review of Systems All systems reviewed & are unremarkable except as noted in HPI and bel - Neurologic Reports weakness PMFSH Medical History: Medical History (Last Updated 05/17/24 @ 14:13 by Destiny Bender PA-C) Anxiety Aortic stenosis Moderate on echocardiogram in November 2021. Arthritis Asthma Bipolar disorder Cerebrovascular accident Chronic kidney disease, stage 4 (severe) Chronic obstructive pulmonary disease PFTs 06/28/2021: Moderate obstructive abnormality, moderate decreased diffusion capacity. Depression Diabetic peripheral neuropathy Esophageal varices Frequent falls Gastroesophageal reflux disease Heart failure with preserved ejection fraction History of infection due to ESBL Escherichia coli Hyperlipidemia Hypertension Hypothyroidism Insulin dependent diabetes mellitus Intraparenchymal hemorrhage of brain Irritable bowel syndrome 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 Osteoporosis Tremor of both hands Surgical History: Surgical History (Last Reviewed 05/17/24 @ 13:45 by Destiny Bender PA-C) History of bladder surgery History of cataract extraction with lens replacement History of section History of cholecystectomy History of colonoscopy with polypectomy Most recent colonoscopy 01/2019 demonstrated colon spasm and diverticulosis performed by Dr. Moreno History of partial hysterectomy History of thyroidectomy History of tonsillectomy Family History: Family History (Last Reviewed 05/17/24 @ 14:46 by Rachel Metz RN) Sibling Multiple sclerosis Father Acute myocardial infarction, Onset Age: 79 Cerebrovascular accident, Onset Age: 79 Mother Dementia Sibling Acute myocardial infarction, Onset Age: 65 Son Diabetes mellitus Other Depression Family history of arthritis Family history of elevated blood lipids Family history of thyroid disease Hypertension - Social History Social History: Social History (Last Reviewed 05/17/24 @ 13:45 by Destiny Bender PA-C) Alcohol Use: Alcohol intake: never Substance Use: Substance use: never Substance use type: does not use Others: Spiritual care concerns: No Living Arrangements: Living arrangements: halfway Smoking Status: Smoking status: Former smoker Tobacco type: cigarettes Second hand tobacco smoke exposure: No Smoking end date: 11/30/18 Smoking Pack-years: Smoking packs per day: 1 Smoking cigarettes per day: 20.0 Years smoked: 50 Smoking pack-years: 50.00 Social Determinants of Health: Do You Feel Safe in your Home?: Yes Has the Lack of Transportation Kept You From Medical Appointments or From Getting Medications?: No Within the Past 12 Months, Were You Worried Whether Your Food W
[2024-05-17] MEDS: lamoTRIgine 50 MG TABLET 150 MG PO (20:12)
[2024-05-17] MEDS: MELATONIN 3 MG TABLET PO (20:13)
[2024-05-17] MEDS: traZODone HCL 50 MG TABLET 200 MG PO (20:13)
[2024-05-17] MEDS: INSULIN ASPART (*BKC) 100 UNITS/ML SUB-Q (20:14)
[2024-05-17] MEDS: TOLNAFTATE 1% POWDER 45 GM BTL 1 APPLIC TOPICAL (20:14)
[2024-05-17 20:31] LABS: Glucose Point of Care 208 mg/dl (65-105)
[2024-05-18] VITALS (18 sets, daily range): BP systolic 116–182; BP diastolic 41–66; PULSE 50–63; RESP 14–20; TEMP 36.4–37.6; O2SAT 92–100
[2024-05-18 00:38] LABS: Hematocrit 30.3 % (37.0-47.0)
[2024-05-18 04:39] LABS: Glucose Point of Care 143 mg/dl (65-105)
[2024-05-18 04:39] LABS: Glucose Point of Care 72 mg/dl (65-105)
[2024-05-18] MEDS: DEXTROSE 50% 25 GM/50 ML SYRINGE IV PUSH (04:43)
[2024-05-18 06:52] LABS: Basophils Percent Auto 0.5 % (0.2-1.2); Eosinophils Absolute Auto 0.3 K/mm3 (0-0.3); Eosinophils Percent Auto 4.6 % (0-4.4); Hematocrit 30.9 % (37.0-47.0); Hemoglobin 10.2 g/dL (12.0-15.0); Immature Granulocyte Absolute 0.03 K/mm3 (0.00-0.031); Immature Granulocyte Percent A 0.5 % (0-0.5); Immature Platelet Fraction Pct 2.2 % (0.9-11.2); Lymphocytes Absolute Auto 0.67 K/mm3 (0.9-3.2); Lymphocytes Percent Auto 11.5 % (18.3-44.2); Mean Corpuscular Volume 90.9 fl (80-100); Mean Platelet Volume 10.4 fl (7.4-10.4); Monocytes Absolute Auto 0.4 K/mm3 (0.1-0.6); Monocytes Percent Auto 6.2 % (2.6-8.5); Neutrophils Absolute Auto 4.5 K/mm3 (1.3-6.7); Neutrophils Percent Auto 76.7 % (45.5-73.1); Platelet Count Result 74 k/mm3 (150-375); White Blood Count 5.8 K/mm3 (4.5-10.0)
[2024-05-18 07:01] LABS: Alanine Aminotransferase 24 U/L (6-35); Alkaline Phosphatase 169 U/L (38-126); Anion Gap 10 mmol/L (4-12); Aspartate Amino Transferase 33 U/L (14-36); Bilirubin,Total 0.5 mg/dL (0.2-1.3); Blood Urea Nitrogen 38 mg/dL (7-17); Calcium 8.4 mg/dL (8.4-10.2); Carbon Dioxide 18 mmol/L (22-30); Chloride 106 mmol/L (98-107); Estimated CRCL calculation 14 ml/min; Estimated Glomerular Filt Rate 21; Glucose 126 mg/dL (65-110); Magnesium 2.1 mg/dL (1.6-2.3); Potassium 4.4 mmol/L (3.4-5.0); Sodium 134 mmol/L (137-145)
[2024-05-18 07:39] LABS: Glucose Point of Care 133 mg/dl (65-105)
[2024-05-18 07:55] LABS: Glucose Point of Care 135 mg/dl (65-105)
[2024-05-18] MEDS: MORPHINE SULFATE (*CRX) 2 MG/ML INJ IV PUSH ×2 (08:10→14:43)
[2024-05-18] MEDS: UMECLIDINIUM/VILANTEROL 62.5-25 MCG ELLIPTA 1 PUFF INHALATION (08:39)
--- NOTE | 2024-05-18 08:46 | WPDINTPN ---
Progress Note: A&P Assessment and Plan (1) Hyperosmolar hyperglycemic state (HHS): Code(s): E11.00 - Type 2 diabetes mellitus with hyperosmolarity without nonketotic hyperglycemic-hyperosmolar coma (NKHHC) Status: Acute Assessment and Plan: Patient presented with fluid of 880 but negative beta hydroxybutyrate suggestive of HHS Received 2 L IV fluids and insulin push and blood sugar decreased to 411 Patient was started on insulin drip which has been weaned off now Conservative IV fluids due to history of congestive heart failure and patient also going to receive PRBC Continues subcutaneous insulin (2) Acute upper gastrointestinal bleeding: Code(s): K92.2 - Gastrointestinal hemorrhage, unspecified Status: Acute Assessment and Plan: Patient presented with hemoglobin of 5.9. Patient has acute on chronic anemia. Patient is on scheduled ibuprofen at the halfway Her Hemoccult was positive She had a colonoscopy 6 years ago and capsule endoscopy in 2022 which were unremarkable. She had unsuccessful attempt for colonoscopy in 2022 She also has history of cirrhosis and EGD done in 2021 revealed small varices GI has been consulted Patient was transfused 2 units PRBC and hemoglobin appears stable at this time. Continue to monitor Continue IV PPI and octreotide infusion Patient is scheduled for EGD today (3) Anemia: Code(s): D64.9 - Anemia, unspecified Status: Acute Assessment and Plan: Patient has history of chronic anemia and now appears to have hemoglobin worsened likely secondary to GI blood loss Seen by Hematology Iron infusion (4) Hyponatremia: Code(s): E87.1 - Hypo-osmolality and hyponatremia Status: Acute Assessment and Plan: Pseudohyponatremia secondary to hyperglycemia. Resolved Monitor (5) Fracture of tibial plateau: Code(s): S82.143A - Displaced bicondylar fracture of unspecified tibia, initial encounter for closed fracture Status: Acute Assessment and Plan: Patient evaluated by Ortho. Conservative management recommended P.r.n. 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 Ammonia is normal GI has been consulted Shanna for SBP prophylaxis No significant ascites on ultrasound (8) Chronic kidney disease: Code(s): N18.9 - Chronic kidney disease, unspecified Status: Acute Assessment and Plan: Creatinine 2.3 which is similar to last recorded creatinine is from April and from February. Appears to be worsening CKD rather than YASSINE She has received IV fluids and is getting PRBC Continue IV fluids at low rate until patient resumes p.o. diet Monitor urine output electrolytes and creatinine Plan DVT prophylaxis -SCDs Stress ulcer prophylaxis -PPI Nutrition -npo Code Status -patient is DNR as per documentation from halfway. Subjective Date/time seen: 05/18/24 Patient states that she has feels much better this morning as compared to yesterday. She complains of pain in both knees. Denies any chest pain shortness for breath fever cough nausea vomiting belly pain. On room air this morning Continues to be on octreotide infusion. Acceptable urine output Received 2 units of PRBC yesterday Other vitals acceptable All other systems were reviewed and were negative Review of Systems Review of Systems: All systems reviewed & are unremarkable except as noted in HPI and below (HPI) Exam Narrative: General: Pt is alert awake but confused and in NAD Lungs/Chest: Trachea central Clear BS B/L, No crackles or
[2024-05-18] MEDS: IRON SUCROSE COMPLEX 500 MG in SODIUM CHLORIDE 0.9% IV 250 ML 79 MG IVPB (09:21)
[2024-05-18] MEDS: TOLNAFTATE 1% POWDER 45 GM BTL 1 APPLIC TOPICAL ×2 (09:21→22:16)
[2024-05-18] MEDS: PANTOPRAZOLE SODIUM IV 40 MG VIAL IV PUSH ×2 (09:21→20:56)
--- NOTE | 2024-05-18 10:50 | PC.NURSE ---
To GI Lab per MARIS [facility] capped. Report given to [ ].
--- NOTE | 2024-05-18 11:00 | WPDANESEPPF ---
Anes - Initial Pre Proc Eval Procedure: Operation Date: 05/18/24 16:00 Proposed Procedures p Esophagogastroduodenoscopy - Meet Villasenor MD Date/Time: 05/18/24 11:00 Surgeon: Allan Campos MD Pre Op Diagnosis: hyperglycemia,tibial plateau fracture,anemia,upper Patient Data Age: 78 Gender: F Height: 1.55 m Weight: 59.1 kg Last Vital Signs Temp 99.4 F 05/18/24 10:00 Pulse 57 L 05/18/24 10:00 Resp 16 05/18/24 10:00 BP 130/42 L 05/18/24 10:00 Pulse Ox 92 05/18/24 10:00 O2 Del Method Room Air 05/18/24 08:39 O2 Flow Rate 1 05/17/24 20:05 FiO2 21 05/18/24 08:39 Allergies Allergy/AdvReac Type Severity Reaction Status Date / Time alendronate sodium Allergy Unknown Verified 05/17/24 07:50 amantadine Allergy Unknown Verified 05/17/24 07:50 benztropine Allergy Other Verified 05/17/24 07:50 chlorpromazine Allergy Unknown Verified 05/17/24 07:50 levofloxacin Allergy Unknown Verified 05/17/24 07:50 Macrolide Antibiotics Allergy Unknown Verified 05/17/24 07:50 mirtazapine Allergy Unknown Verified 05/17/24 07:50 Quinolones Allergy Unknown Verified 05/17/24 07:50 topiramate Allergy Unknown Verified 05/17/24 07:50 Home Medications Medication Instructions Recorded Confirmed Type escitalopram oxalate 5 mg tablet 5 mg PO DAILY 08/21/21 05/17/24 History trazodone 100 mg tablet 200 mg PO HS 08/21/21 05/17/24 History umeclidinium 62.5 mcg-vilanterol 1 inh inhalation DAILY #60 ea 10/15/21 05/17/24 Rx 25 mcg/actuation powdr for inhalation (Anoro Ellipta) glucagon HCl 1 mg solution for 1 mg subcut Q20M PRN Hypoglycemia 02/13/22 05/17/24 History injection (Glucagon (HCl) Emergency Kit) sodium chloride 0.65 % nasal spray 1 spray intranasal BID PRN Dry 02/13/22 05/17/24 History aerosol (Saline Mist) Nasal Passages melatonin 3 mg tablet 3 mg PO HS #10 tabs 07/22/22 05/17/24 Rx hydroxyzine HCl 25 mg tablet 25 mg PO Q8H PRN Itching 08/25/22 05/17/24 History acetaminophen 500 mg tablet 1,000 mg PO BID PRN Pain (Scale 09/14/22 05/17/24 History Score 1-3) ferrous sulfate 325 mg (65 mg 325 mg PO DAILY 12/22/22 05/17/24 History iron) tablet levothyroxine 150 mcg tablet 150 mcg PO DAILY@0630 1 month #30 12/25/22 05/17/24 Rx (Synthroid) tabs atorvastatin 40 mg tablet 40 mg PO DAILY 01/22/23 05/17/24 History gabapentin 600 mg tablet 200 mg PO Q8H 01/22/23 05/17/24 History omeprazole 20 mg capsule,delayed 20 mg PO DAILY 01/22/23 05/17/24 History release spironolactone 50 mg tablet 50 mg PO QAM #30 tabs 11/20/23 05/17/24 Rx (Aldactone) PreserVision AREDS 1 tab-cap PO DAILY 12/15/23 05/17/24 History cholecalciferol (vitamin D3) 1,250 1,250 mcg PO WEEKLY 12/15/23 05/17/24 History mcg (50,000 unit) tablet cyanocobalamin (vitamin B-12) 1,000 mcg IM [id number] 12/15/23 05/17/24 History 1,000 mcg/mL injection solution furosemide 20 mg tablet 20 mg PO DAILY #30 tabs 12/16/23 05/17/24 Rx bumetanide 2 mg tablet 2 mg PO DAILY 05/17/24 05/17/24 History lamotrigine 150 mg tablet 150 mg PO Q12H 05/17/24 05/17/24 History Laboratory Tests 05/17/24 05/17/24 05/17/24 07:46 07:47 09:32 WBC RBC Hgb Hct MCV MCH MCHC RDW Plt Count MPV Immature Gran % (Auto) Neut % (Auto) Lymph % (Auto) [place] % (Auto) Eos % (Auto) Baso % (Auto) Lymph # (Auto) [place] # (Auto) Eos # (Auto) Baso # (Auto) Abs Immat Gran (auto) Absolute Neuts (auto) Absolute Nucleated RBC Nucleated RBC % % Immature Plt Fraction Absolute Retic Percent Retic Immature Retic Fraction Retic Hgb Content PT INR Sodium Potas
[2024-05-18 11:08] LABS: Glucose Point of Care 128 mg/dl (65-105)
[2024-05-18] MEDS: SODIUM CHLORIDE 0.9% IV 500 ML 10 ML IV CONT (11:16)
[2024-05-18 12:35] LABS: Glucose Point of Care 121 mg/dl (65-105)
[2024-05-18] MEDS: ESCITALOPRAM OXALATE 5 MG TABLET PO (12:37)
[2024-05-18] MEDS: OPTI-GEN TAB 1 TABLET PO (12:37)
[2024-05-18] MEDS: ATORVASTATIN 40 MG TABLET PO (12:37)
[2024-05-18] MEDS: lamoTRIgine 50 MG TABLET 150 MG PO ×2 (12:37→20:55)
[2024-05-18] MEDS: FERROUS SULFATE 325 MG TABLET DR PO (12:37)
[2024-05-18] MEDS: ACETAMINOPHEN 325 MG TABLET PO ×3 (12:37→20:56)
[2024-05-18] MEDS: hydrALAZINE HCL 20 MG/ML VIAL 10 MG IV PUSH (13:03)
--- NOTE | 2024-05-18 13:07 | PCPTNOTE ---
Attempted PT evaluation, Pt just returned from EGD and is Drowsy per RN. RN aware of pt having bedrest orders at this time. Will follow.
[2024-05-18] MEDS: LACTATED RINGERS 1,000 ML 75 ML IV CONT (14:38)
[2024-05-18 16:09] LABS: Hematocrit 33.8 % (37.0-47.0); Hemoglobin 10.9 g/dL (12.0-15.0); Mean Corpuscular HGB Conc 32.2 g/dl (32-36); Mean Corpuscular Hemoglobin 29.6 pg (26-34); Mean Corpuscular Volume 91.8 fl (80-100); Mean Platelet Volume 10.4 fl (7.4-10.4); Platelet Count Result 80 k/mm3 (150-375); Red Blood Count 3.68 M/mm3 (4.2-5.4); Red Cell Distribution Width 16.5 % (11.5-14.5); White Blood Count 5.8 K/mm3 (4.5-10.0)
[2024-05-18 16:35] LABS: Glucose Point of Care 131 mg/dl (65-105)
[2024-05-18] MEDS: traZODone HCL 50 MG TABLET 200 MG PO (20:55)
[2024-05-18 21:10] LABS: Glucose Point of Care 151 mg/dl (65-105)
[2024-05-19] VITALS (18 sets, daily range): BP systolic 136–184; BP diastolic 36–96; PULSE 61–84; RESP 11–24; TEMP 36.2–37.6; O2SAT 90–97
[2024-05-19] MEDS: ACETAMINOPHEN 325 MG TABLET PO ×6 (02:29→20:39)
[2024-05-19 04:15] LABS: Basophils Percent Auto 0.4 % (0.2-1.2); Eosinophils Absolute Auto 0.2 K/mm3 (0-0.3); Eosinophils Percent Auto 3.3 % (0-4.4); Hemoglobin 10.3 g/dL (12.0-15.0); Immature Granulocyte Absolute 0.07 K/mm3 (0.00-0.031); Immature Granulocyte Percent A 1.3 % (0-0.5); Immature Platelet Fraction Pct 1.8 % (0.9-11.2); Lymphocytes Absolute Auto 0.55 K/mm3 (0.9-3.2); Mean Corpuscular HGB Conc 32.2 g/dl (32-36); Mean Corpuscular Hemoglobin 29.7 pg (26-34); Mean Corpuscular Volume 92.2 fl (80-100); Mean Platelet Volume 9.8 fl (7.4-10.4); Monocytes Absolute Auto 0.4 K/mm3 (0.1-0.6); Monocytes Percent Auto 6.4 % (2.6-8.5); Neutrophils Absolute Auto 4.3 K/mm3 (1.3-6.7); Neutrophils Percent Auto 78.6 % (45.5-73.1); Nucleated Red Blood Cells Perc 0.9 % (0.0-0.2); Platelet Count Result 80 k/mm3 (150-375); Red Blood Count 3.47 M/mm3 (4.2-5.4); Red Cell Distribution Width 17.1 % (11.5-14.5); White Blood Count 5.5 K/mm3 (4.5-10.0)
[2024-05-19 04:32] LABS: Alanine Aminotransferase 21 U/L (6-35); Albumin Level 2.9 g/dL (3.5-5.1); Alkaline Phosphatase 166 U/L (38-126); Anion Gap 7 mmol/L (4-12); Aspartate Amino Transferase 33 U/L (14-36); Bilirubin,Total 0.6 mg/dL (0.2-1.3); Blood Urea Nitrogen 32 mg/dL (7-17); Calcium 8.2 mg/dL (8.4-10.2); Carbon Dioxide 17 mmol/L (22-30); Chloride 110 mmol/L (98-107); Estimated CRCL calculation 15 ml/min; Estimated Glomerular Filt Rate 23; Glucose 140 mg/dL (65-110); Potassium 4.4 mmol/L (3.4-5.0); Sodium 134 mmol/L (137-145)
[2024-05-19 04:40] LABS: Burr Cells 1+; Platelet Estimate Decreased (Adequate); Schistocytes None Seen
[2024-05-19] MEDS: LEVOTHYROXINE SODIUM 150 MCG TABLET PO (06:23)
[2024-05-19 07:34] LABS: Glucose Point of Care 152 mg/dl (65-105)
[2024-05-19] MEDS: OPTI-GEN TAB 1 TABLET PO (08:07)
[2024-05-19] MEDS: ATORVASTATIN 40 MG TABLET PO (08:07)
[2024-05-19] MEDS: FERROUS SULFATE 325 MG TABLET DR PO (08:07)
[2024-05-19] MEDS: ESCITALOPRAM OXALATE 5 MG TABLET PO (08:07)
[2024-05-19] MEDS: lamoTRIgine 50 MG TABLET 150 MG PO ×2 (08:07→20:39)
[2024-05-19] MEDS: PANTOPRAZOLE SODIUM IV 40 MG VIAL IV PUSH ×2 (08:07→20:39)
[2024-05-19] MEDS: TOLNAFTATE 1% POWDER 45 GM BTL 1 APPLIC TOPICAL ×2 (08:08→20:39)
[2024-05-19] MEDS: UMECLIDINIUM/VILANTEROL 62.5-25 MCG ELLIPTA 1 PUFF INHALATION (08:09)
[2024-05-19] MEDS: IRON SUCROSE COMPLEX 500 MG in SODIUM CHLORIDE 0.9% IV 250 ML 79 MG IVPB (09:50)
--- NOTE | 2024-05-19 09:52 | PCPTNOTE ---
Spoke with Dr. Maldonado (current hospitalist), bedrest orders can be removed. Will make RN aware.
--- NOTE | 2024-05-19 10:23 | PM.IMPN ---
Progress Note: A&P Assessment and Plan (1) Pseudohyponatremia: Code(s): R79.89 - Other specified abnormal findings of blood chemistry Status: Acute (2) Closed fracture of lateral portion of tibial plateau: Code(s): S82.123A - Displaced fracture of lateral condyle of unspecified tibia, initial encounter for closed fracture Status: Acute (3) Hyperosmolar hyperglycemic state (HHS): Code(s): E11.00 - Type 2 diabetes mellitus with hyperosmolarity without nonketotic hyperglycemic-hyperosmolar coma (NKHHC) Status: Acute (4) Thrombocytopenia: Code(s): D69.6 - Thrombocytopenia, unspecified Status: Acute Plan (1) Hyperosmolar hyperglycemic state (HHS): Code(s): E11.00 - Type 2 diabetes mellitus with hyperosmolarity without nonketotic hyperglycemic-hyperosmolar coma (NKHHC) Status: Acute Assessment and Plan: Patient presented with fluid of 880 but negative beta hydroxybutyrate suggestive of HHS Received 2 L IV fluids and insulin push and blood sugar decreased to 411 Patient was started on insulin drip which has been weaned off now Conservative IV fluids due to history of congestive heart failure and patient also going to receive PRBC Continues subcutaneous insulin (2) Acute upper gastrointestinal bleeding: Code(s): K92.2 - Gastrointestinal hemorrhage, unspecified Status: Acute Assessment and Plan: Patient presented with hemoglobin of 5.9. Patient has acute on chronic anemia. Patient is on scheduled ibuprofen at the long term Her Hemoccult was positive She had a colonoscopy 6 years ago and capsule endoscopy in 2022 which were unremarkable. She had unsuccessful attempt for colonoscopy in 2022 She also has history of cirrhosis and EGD done in 2021 revealed small varices GI has been consulted Patient was transfused 2 units PRBC and hemoglobin appears stable at this time. Continue to monitor Continue IV PPI and octreotide infusion Patient is scheduled for EGD today (3) Anemia: Code(s): D64.9 - Anemia, unspecified Status: Acute Assessment and Plan: Patient has history of chronic anemia and now appears to have hemoglobin worsened likely secondary to GI blood loss Seen by Hematology Iron infusion (4) Hyponatremia: Code(s): E87.1 - Hypo-osmolality and hyponatremia Status: Acute Assessment and Plan: Pseudohyponatremia secondary to hyperglycemia. Resolved Monitor (5) Fracture of tibial plateau: Code(s): S82.143A - Displaced bicondylar fracture of unspecified tibia, initial encounter for closed fracture Status: Acute Assessment and Plan: Patient evaluated by Ortho. Conservative management recommended P.r.n. 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 Ammonia is normal GI has been consulted Rocephin for SBP prophylaxis No significant ascites on ultrasound (8) Chronic kidney disease: Code(s): N18.9 - Chronic kidney disease, unspecified Status: Acute Assessment and Plan: Creatinine 2.3 which is similar to last recorded creatinine is from April and from February. Appears to be worsening CKD rather than YASSINE She has received IV fluids and is getting PRBC Continue IV fluids at low rate until patient resumes p.o. diet Monitor urine output electrolytes and creatinine Plan DVT prophylaxis -SCDs Stress ulcer prophylaxis -PPI Nutrition -npo Code Status -patient is DNR as per documentation from long term. Subjective Date/time seen: 05/19/24 10:23 Interval history: I
[2024-05-19 11:40] LABS: Glucose Point of Care 192 mg/dl (65-105)
[2024-05-19] MEDS: hydrALAZINE HCL 20 MG/ML VIAL 10 MG IV PUSH (12:28)
--- NOTE | 2024-05-19 12:36 | WPDANESPN ---
Anes - Prog Note Post-Op Date/Time: 05/19/24 12:36 Cardiovascular status: normal Respiratory status: normal Airway patency: baseline Mental status: baseline Post-Op hydration status: normal Vital Signs: Last Vital Signs Temp 37.2 C 05/19/24 08:00 Pulse 69 05/19/24 10:00 Resp 19 05/19/24 08:09 BP 172/70 H 05/19/24 08:00 Pulse Ox 94 05/19/24 08:23 O2 Del Method Nasal Cannula 05/19/24 10:12 O2 Flow Rate 1 05/19/24 10:12 FiO2 24 05/19/24 08:23 Pain Score (VAS): 02/06 I/O: Intake & Output 05/18/24 05/19/24 05/19/24 23:59 07:59 15:59 Intake Total 100 1000 120 Output Total 700 750 Balance -600 250 120 Laboratory Tests 05/19/24 03:50 05/19/24 03:50 05/18/24 05/18/24 05/18/24 16:01 16:21 21:06 WBC 5.8 RBC 3.68 L Hgb 10.9 L Hct 33.8 L MCV 91.8 MCH 29.6 MCHC 32.2 RDW 16.5 H Plt Count 80 L MPV 10.4 Immature Gran % (Auto) Neut % (Auto) Lymph % (Auto) [place] % (Auto) Eos % (Auto) Baso % (Auto) Lymph # (Auto) [place] # (Auto) Eos # (Auto) Baso # (Auto) Abs Immat Gran (auto) Absolute Neuts (auto) Absolute Nucleated RBC Nucleated RBC % Platelet Estimate % Immature Plt Fraction 2.0 [place] Cells Schistocytes Sodium Potassium Chloride Carbon Dioxide Anion Gap BUN Creatinine Estim Creat Clear Calc Estimated GFR Glucose POC Capillary Glucose 131 H 151 H Calcium Magnesium Total Bilirubin AST ALT Alkaline Phosphatase Total Protein Albumin 05/19/24 05/19/24 05/19/24 03:50 07:31 11:35 WBC 5.5 RBC 3.47 L Hgb 10.3 L Hct 32.0 L MCV 92.2 MCH 29.7 MCHC 32.2 RDW 17.1 H Plt Count 80 L MPV 9.8 Immature Gran % (Auto) 1.3 H Neut % (Auto) 78.6 H Lymph % (Auto) 10.0 L [place] % (Auto) 6.4 Eos % (Auto) 3.3 Baso % (Auto) 0.4 Lymph # (Auto) 0.55 L [place] # (Auto) 0.4 Eos # (Auto) 0.2 Baso # (Auto) 0.0 Abs Immat Gran (auto) 0.07 H Absolute Neuts (auto) 4.3 Absolute Nucleated RBC 0.050 H Nucleated RBC % 0.9 H Platelet Estimate Decreased % Immature Plt Fraction 1.8 [place] Cells 1+ Schistocytes None seen Sodium 134 L Potassium 4.4 Chloride 110 H Carbon Dioxide 17 L Anion Gap 7 BUN 32 H Creatinine 2.10 H Estim Creat Clear Calc 15 Estimated GFR 23 L Glucose 140 H POC Capillary Glucose 152 H 192 H Calcium 8.2 L Magnesium 2.0 Total Bilirubin 0.6 AST 33 ALT 21 Alkaline Phosphatase 166 H Total Protein 5.0 L Albumin 2.9 L Post-procedural complaints: none Patient Feedback: Patient satisfied with anesthetic care.
--- NOTE | 2024-05-19 13:10 | PC.NURSE ---
Son was here at 1230 pm. Notified him that she will be downgraded to medical.
--- NOTE | 2024-05-19 13:44 | WPDGIPROGNO ---
Progress Note: A&P Assessment and Plan (1) GI bleeding: Code(s): K92.2 - Gastrointestinal hemorrhage, unspecified Status: Acute Assessment and Plan: no more signs of bleeding, non bleeding ulcerative gastritis ppi no need of octreotide (no varices) advance diet (2) Acute on chronic blood loss anemia: Code(s): D62 - Acute posthemorrhagic anemia Status: Acute Assessment and Plan: multifactorial, she has baseline anemia also found ulcerative gastritis ppi daily (3) Gastritis: Code(s): K29.70 - Gastritis, unspecified, without bleeding Status: Acute (4) Hyperosmolar hyperglycemic state (HHS): Code(s): E11.00 - Type 2 diabetes mellitus with hyperosmolarity without nonketotic hyperglycemic-hyperosmolar coma (NKHHC) Status: Acute Assessment and Plan: treated and improved (5) Cirrhosis: Qualifiers: Hepatic cirrhosis type: unspecified hepatic cirrhosis Ascites presence: without ascites Qualified Code(s): K74.60 - Unspecified cirrhosis of liver Code(s): K74.60 - Unspecified cirrhosis of liver Status: Resolved Assessment and Plan: will need follow-up in office (6) Thrombocytopenia: Code(s): D69.6 - Thrombocytopenia, unspecified Status: Acute (7) Fracture of tibial plateau: Code(s): S82.143A - Displaced bicondylar fracture of unspecified tibia, initial encounter for closed fracture Status: Acute Subjective Date/time seen: 05/19/24 13:44 Interval history: c/o itching back and legs no report of more gib egd yesterday non bleeding ulcerative gastritis, no varices Review of Systems Review of Systems: All systems reviewed & are unremarkable except as noted in HPI and below Exam Narrative: General: Pt is alert awake but confused and in NAD neck: supple pupils reactive Lungs/Chest: Trachea central Clear BS B/L, No crackles or wheezing. Cardiac: RRR. Normal S1 S2. Systolic murmur present 3/6 Circulation: Bilateral dorsalis pedis are palpable Abdomen: Normal bowel sounds. Soft. NT. Extremities: No clubbing, cyanosis or edema. Warm knee stabilizer on the right : Mead in place Neurologic: Follows commands. Moves all 4 extremities PERRL AO x3, intention tremor present in both hands Skin: No Rash Objective Data Vital Signs Vital Signs: Vital Signs - 24 hr 05/18/24 14:00 05/18/24 14:00 05/18/24 16:00 Temperature 98.8 F Pulse Rate 61 59 L 63 Respiratory Rate 17 Blood Pressure 182/56 H Pulse Oximetry 94 Oxygen Delivery Oxygen Flow Rate Fraction of Inspired Oxygen 05/18/24 16:00 05/18/24 16:00 05/18/24 18:00 Temperature 99.4 F Pulse Rate 63 60 Respiratory Rate 16 Blood Pressure 149/49 H Pulse Oximetry 93 93 Oxygen Delivery Nasal Cannula Oxygen Flow Rate 2 Fraction of Inspired Oxygen 05/18/24 20:00 05/18/24 20:00 05/18/24 22:00 Temperature Pulse Rate 62 61 Respiratory Rate Blood Pressure Pulse Oximetry 95 Oxygen Delivery Nasal Cannula Oxygen Flow Rate 2 Fraction of Inspired Oxygen 05/19/24 00:00 05/19/24 00:00 05/19/24 00:00 Temperature Pulse Rate 61 61 Respiratory Rate 11 L Blood Pressure 137/45 L Pulse Oximetry 95 95 Oxygen Delivery Nasal Cannula Oxygen Flow Rate 2 Fraction of Inspired Oxygen 05/19/24 02:00 05/18/24 21:11 05/19/24 04:00 Temperature Pulse Rate 62 Respiratory Rate Blood Pressure Pulse Oximetry 94 92 Oxygen Delivery Nasal Cannula Nasal Cannula Oxygen Flow Rate 2 2 Fraction of Inspired Oxygen 05/19/24 06:00 05/19/24 01:45 05/19/24 05:00 Temperature 99.7 F H 99.6 F Pulse Rate 65 65 65 Respiratory Rate 16 14 Blood Pressure 136/57 L 142/73 H Pulse Oximetry 96 96 Oxygen Delivery Oxygen Flow Rate Fraction of Inspired Oxygen 05/19/24 06:30 05/19/24 04:00 05/19/24 08:09 Temperature 99.7 F H Pulse Rate 66 63 Respiratory
[2024-05-19 14:34] LABS: Alpha Fetoprotein Tumor Marker 2.4 ng/mL
--- NOTE | 2024-05-19 14:37 | PC.NURSE ---
Attempted to call Minh to let him know new room number 322-2. Unable to leave message at this time.
--- NOTE | 2024-05-19 15:04 | PC.NURSE ---
This patient, Nisha Sigala, was transferred to [facility] on 05/19/24 at 1455. Personal belongings sent with patient. Report given to Brandy. Appropriate documentation sent with patient.
[2024-05-19] MEDS: diphenhydrAMINE HCl CAP 25 MG CAPSULE PO (15:36)
[2024-05-19 16:53] LABS: Glucose Point of Care 179 mg/dl (65-105)
[2024-05-19] MEDS: FAMOTIDINE 20 MG/2 ML VIAL IV PUSH ×2 (17:13→20:39)
[2024-05-19] MEDS: diphenhydrAMINE HCl INJ 50 MG/ML VIAL IV PUSH (17:13)
[2024-05-19] MEDS: traZODone HCL 50 MG TABLET 200 MG PO (20:39)
[2024-05-19] MEDS: INSULIN ASPART (*BKC) 100 UNITS/ML SUB-Q (20:52)
[2024-05-19 21:04] LABS: Glucose Point of Care 203 mg/dl (65-105)
[2024-05-19] MEDS: oxyCODONE HCL (*CRX) 2.5 MG TAB IR PO (21:12)
[2024-05-20 05:30] VITALS: BP 166/60; PULSE 71; RESP 18; TEMP 36.3; O2SAT 96
[2024-05-20] MEDS: LEVOTHYROXINE SODIUM 150 MCG TABLET PO (06:26)
[2024-05-20] MEDS: ACETAMINOPHEN 325 MG TABLET PO ×4 (06:26→19:52)
[2024-05-20] MEDS: oxyCODONE HCL (*CRX) 2.5 MG TAB IR PO ×2 (06:35→21:16)
[2024-05-20 06:37] LABS: Basophils Percent Auto 0.8 % (0.2-1.2); Eosinophils Absolute Auto 0.2 K/mm3 (0-0.3); Eosinophils Percent Auto 4.1 % (0-4.4); Hematocrit 31.1 % (37.0-47.0); Immature Granulocyte Absolute 0.11 K/mm3 (0.00-0.031); Immature Granulocyte Percent A 2.1 % (0-0.5); Immature Platelet Fraction Pct 1.4 % (0.9-11.2); Lymphocytes Absolute Auto 0.76 K/mm3 (0.9-3.2); Lymphocytes Percent Auto 14.8 % (18.3-44.2); Mean Corpuscular HGB Conc 32.2 g/dl (32-36); Mean Corpuscular Hemoglobin 30.4 pg (26-34); Mean Corpuscular Volume 94.5 fl (80-100); Monocytes Absolute Auto 0.3 K/mm3 (0.1-0.6); Monocytes Percent Auto 5.9 % (2.6-8.5); Neutrophils Absolute Auto 3.7 K/mm3 (1.3-6.7); Neutrophils Percent Auto 72.3 % (45.5-73.1); Nucleated Red Blood Cells Perc 1.2 % (0.0-0.2); Platelet Count Result 100 k/mm3 (150-375); Red Blood Count 3.29 M/mm3 (4.2-5.4); Red Cell Distribution Width 17.6 % (11.5-14.5); White Blood Count 5.1 K/mm3 (4.5-10.0)
[2024-05-20 06:38] LABS: Alanine Aminotransferase 22 U/L (6-35); Alkaline Phosphatase 175 U/L (38-126); Anion Gap 8 mmol/L (4-12); Aspartate Amino Transferase 39 U/L (14-36); Bilirubin,Total 0.7 mg/dL (0.2-1.3); Blood Urea Nitrogen 25 mg/dL (7-17); Calcium 8.4 mg/dL (8.4-10.2); Carbon Dioxide 19 mmol/L (22-30); Chloride 112 mmol/L (98-107); Estimated CRCL calculation 18 ml/min; Estimated Glomerular Filt Rate 23; Glucose 137 mg/dL (65-110); Potassium 4.3 mmol/L (3.4-5.0); Sodium 139 mmol/L (137-145)
--- NOTE | 2024-05-20 07:43 | PM.PNORT ---
Progress Note: A&P Assessment and Plan (1) Closed fracture of lateral portion of tibial plateau: Code(s): S82.123A - Displaced fracture of lateral condyle of unspecified tibia, initial encounter for closed fracture Status: Acute (2) Knee pain, right: Qualifiers: Chronicity: acute Qualified Code(s): M25.561 - Pain in right knee Code(s): M25.561 - Pain in right knee Status: Acute Plan Patient is awake and responsive. She may be a little bit confused still. She is out of the ICU now. The immobilizers on the right leg. I have explained the situation to her about her lateral plateau fracture which will be treated nonsurgically and will require that she keep her weight off of this leg for about 6 weeks with does not impact further. She clearly has osteoporosis and she has a history of osteoporosis but is on no specific treatment for this. Her treatment may be complicated by the fact that she has cirrhosis of the liver. I would recommend that she see a bone fruit sorter after discharge for treatment recommendations of her osteoporosis. She has been started on Lovenox 30 mg daily for DVT prophylaxis which will hopefully minimize her risk of DVT complications. While she is in the hospital I would also recommend the foot pumps on the right and SCDs on the left leg. She complains today about her right knee. She has pain in her right knee. She cannot localize it very well. She does have a 1/2 inch purple ecchymosis over the medial tibial plateau. I cannot feel effusion the knee. She does not have any severe tenderness at the knee and when I percuss her heel does not cause a great deal of discomfort but moving her knee causes pain that she cannot localize. Is clear that she has had a trauma to the right knee as she has a bruise there. I reviewed the x-rays of her left knee when she was seen in the emergency room which were unremarkable. I am recommending that we obtain a CT scan of the right knee and x-rays of the right hip for further evaluation. I will order these today. Her left knee pain could be due to referred pain from her left hip and with her osteoporosis we will want to rule that out as well. Subjective Subjective Date/Time Seen: 05/20/24 07:43 Objective Data Vital Signs Vital Signs: Vital Signs - 24 hr 05/19/24 08:09 05/19/24 08:09 05/19/24 08:21 Temperature Pulse Rate 65 Respiratory Rate 19 Blood Pressure Pulse Oximetry 95 90 Oxygen Delivery Nasal Cannula Room Air Oxygen Flow Rate 2 Fraction of Inspired Oxygen 28 05/19/24 08:23 05/19/24 10:12 05/19/24 08:00 Temperature Pulse Rate Respiratory Rate Blood Pressure Pulse Oximetry 94 96 Oxygen Delivery Nasal Cannula Nasal Cannula Nasal Cannula Oxygen Flow Rate 1 1 1 Fraction of Inspired Oxygen 05/19/24 08:00 05/19/24 08:00 05/19/24 10:00 Temperature 37.2 C Pulse Rate 65 65 69 Respiratory Rate 17 Blood Pressure 172/70 H Pulse Oximetry 93 Oxygen Delivery Oxygen Flow Rate Fraction of Inspired Oxygen 05/19/24 12:00 05/19/24 12:47 05/19/24 12:00 Temperature 37.3 C 37.3 C Pulse Rate 70 74 Respiratory Rate 19 24 H Blood Pressure 184/96 H 151/53 H Pulse Oximetry 97 97 96 Oxygen Delivery Nasal Cannula Oxygen Flow Rate 1 Fraction of Inspired Oxygen 05/19/24 12:00 05/19/24 13:11 05/19/24 13:50 Temperature Pulse Rate 72 Respiratory Rate Blood Pressure 145/36 H Pulse Oximetry Oxygen Delivery Nasal Cannula Oxygen Flow Rate 1 Fraction of Inspired Oxygen 05/19/24 22:06 05/19/24 20:05 05/19/24 20:00 Temperature 36.2 C L Pulse Rate 84 Respiratory Rate 18 Blood Pressure 159/61 H Pulse Oximetry 97 95 97 Oxygen Delivery Nasal Cannula Nasal Cannula Oxygen Flow Rate 1 1 Fraction of Inspired Oxygen 05/20/24 05:30 Temperature 36.3 C L Pulse Rate 71 Respiratory Rate 18 Blood Pressure 166/60 H Pulse Oxime
[2024-05-20 07:49] LABS: Glucose Point of Care 138 mg/dl (65-105)
[2024-05-20 08:00] VITALS: PULSE 80; O2SAT 99
--- NOTE | 2024-05-20 08:00 | PC.NURSE ---
RN attempted to apply SCDs on Pt but pt refused. Pt stated that I am going home soon so I don't need to wear those because they hurt Pt was educated on the importance of the SCDs while in the hospital.
[2024-05-20] MEDS: UMECLIDINIUM/VILANTEROL 62.5-25 MCG ELLIPTA 1 PUFF INHALATION (08:15)
--- NOTE | 2024-05-20 09:27 | PM.IMPN ---
Progress Note: A&P Assessment and Plan (1) Pseudohyponatremia: Code(s): R79.89 - Other specified abnormal findings of blood chemistry Status: Acute (2) Closed fracture of lateral portion of tibial plateau: Code(s): S82.123A - Displaced fracture of lateral condyle of unspecified tibia, initial encounter for closed fracture Status: Acute (3) Hyperosmolar hyperglycemic state (HHS): Code(s): E11.00 - Type 2 diabetes mellitus with hyperosmolarity without nonketotic hyperglycemic-hyperosmolar coma (NKHHC) Status: Acute (4) Thrombocytopenia: Code(s): D69.6 - Thrombocytopenia, unspecified Status: Acute Plan (1) Hyperosmolar hyperglycemic state (HHS): Code(s): E11.00 - Type 2 diabetes mellitus with hyperosmolarity without nonketotic hyperglycemic-hyperosmolar coma (NKHHC) Status: Acute Assessment and Plan: Patient presented with fluid of 880 but negative beta hydroxybutyrate suggestive of HHS Received 2 L IV fluids and insulin push and blood sugar decreased to 411 Patient was started on insulin drip which has been weaned off now Conservative IV fluids due to history of congestive heart failure Continues subcutaneous insulin (2) Acute upper gastrointestinal bleeding: Code(s): K92.2 - Gastrointestinal hemorrhage, unspecified Status: Acute Assessment and Plan: Patient presented with hemoglobin of 5.9. Patient has acute on chronic anemia. Patient is on scheduled ibuprofen at the retirement Her Hemoccult was positive She had a colonoscopy 6 years ago and capsule endoscopy in 2022 which were unremarkable. She had unsuccessful attempt for colonoscopy in 2022 She also has history of cirrhosis and EGD done in 2021 revealed small varices GI has been consulted Patient was transfused 2 units PRBC and hemoglobin appears stable at this time. Continue to monitor received IV PPI and octreotide infusion EDG non bleeding ulcerative gastritis, no varices, discontinue octreotide, start Protonix 40 mg b.i.d. p.o. (3) Anemia: Code(s): D64.9 - Anemia, unspecified Status: Acute Assessment and Plan: Patient has history of chronic anemia and now appears to have hemoglobin worsened likely secondary to GI blood loss Seen by Hematology Iron infusion Hemoglobin stable (4) Hyponatremia: Code(s): E87.1 - Hypo-osmolality and hyponatremia Status: Acute Assessment and Plan: Pseudohyponatremia secondary to hyperglycemia. Resolved Monitor (5) Fracture of tibial plateau: Code(s): S82.143A - Displaced bicondylar fracture of unspecified tibia, initial encounter for closed fracture Status: Acute Assessment and Plan: Patient evaluated by Ortho. Conservative management recommended P.r.n. 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 Ammonia is normal GI has been consulted Rocephin for SBP prophylaxis No significant ascites on ultrasound (8) Chronic kidney disease: Code(s): N18.9 - Chronic kidney disease, unspecified Status: Acute Assessment and Plan: Creatinine 2.3 which is similar to last recorded creatinine is from April and from February. Appears to be worsening CKD rather than YASSINE She has received IV fluids and is getting PRBC Continue IV fluids at low rate until patient resumes p.o. diet Monitor urine output electrolytes and creatinine Plan DVT prophylaxis -SCDs Stress ulcer prophylaxis -PPI Nutrition -npo Code Status -patient is DNR as per documentation from retirement. If con
[2024-05-20] MEDS: PANTOPRAZOLE SODIUM IV 40 MG VIAL IV PUSH (09:34)
[2024-05-20] MEDS: FAMOTIDINE 20 MG/2 ML VIAL IV PUSH ×2 (09:35→21:09)
[2024-05-20] MEDS: ENOXAPARIN 30 MG/0.3 ML SYRINGE SUB-Q (09:35)
[2024-05-20] MEDS: lamoTRIgine 50 MG TABLET 150 MG PO ×2 (09:37→21:08)
[2024-05-20] MEDS: OPTI-GEN TAB 1 TABLET PO (09:37)
[2024-05-20] MEDS: ATORVASTATIN 40 MG TABLET PO (09:37)
[2024-05-20] MEDS: FERROUS SULFATE 325 MG TABLET DR PO (09:37)
[2024-05-20] MEDS: ESCITALOPRAM OXALATE 5 MG TABLET PO (09:49)
[2024-05-20 11:36] LABS: Glucose Point of Care 164 mg/dl (65-105)
[2024-05-20 14:00] VITALS: BP 176/41; PULSE 71; RESP 18; TEMP 36.8; O2SAT 96
[2024-05-20] MEDS: TOLNAFTATE 1% POWDER 45 GM BTL 1 APPLIC TOPICAL ×2 (14:34→21:09)
[2024-05-20 16:30] LABS: Glucose Point of Care 158 mg/dl (65-105)
[2024-05-20 20:00] VITALS: O2SAT 96
[2024-05-20 21:05] VITALS: BP 152/67; PULSE 78; RESP 18; TEMP 36.4; O2SAT 95
[2024-05-20] MEDS: traZODone HCL 50 MG TABLET 200 MG PO (21:08)
[2024-05-20] MEDS: PANTOPRAZOLE 40 MG TABLET PO (21:08)
[2024-05-20 21:21] LABS: Glucose Point of Care 148 mg/dl (65-105)
[2024-05-21 05:53] LABS: Basophils Percent Auto 0.7 % (0.2-1.2); Eosinophils Absolute Auto 0.2 K/mm3 (0-0.3); Eosinophils Percent Auto 4.7 % (0-4.4); Hematocrit 31.1 % (37.0-47.0); Hemoglobin 9.7 g/dL (12.0-15.0); Immature Granulocyte Absolute 0.09 K/mm3 (0.00-0.031); Immature Granulocyte Percent A 2.1 % (0-0.5); Immature Platelet Fraction Pct 1.2 % (0.9-11.2); Lymphocytes Absolute Auto 0.72 K/mm3 (0.9-3.2); Mean Corpuscular HGB Conc 31.2 g/dl (32-36); Mean Corpuscular Hemoglobin 29.8 pg (26-34); Mean Corpuscular Volume 95.4 fl (80-100); Mean Platelet Volume 9.2 fl (7.4-10.4); Monocytes Absolute Auto 0.3 K/mm3 (0.1-0.6); Monocytes Percent Auto 6.4 % (2.6-8.5); Neutrophils Absolute Auto 2.9 K/mm3 (1.3-6.7); Neutrophils Percent Auto 69.1 % (45.5-73.1); Nucleated Red Blood Cells Perc 0.9 % (0.0-0.2); Platelet Count Result 108 k/mm3 (150-375); Red Blood Count 3.26 M/mm3 (4.2-5.4); Red Cell Distribution Width 17.7 % (11.5-14.5); White Blood Count 4.2 K/mm3 (4.5-10.0)
[2024-05-21 06:00] VITALS: BP 166/55; PULSE 69; RESP 20; TEMP 37; O2SAT 94
[2024-05-21 06:00] LABS: Alanine Aminotransferase 23 U/L (6-35); Albumin Level 2.9 g/dL (3.5-5.1); Alkaline Phosphatase 176 U/L (38-126); Anion Gap 5 mmol/L (4-12); Aspartate Amino Transferase 43 U/L (14-36); Bilirubin,Total 0.6 mg/dL (0.2-1.3); Blood Urea Nitrogen 21 mg/dL (7-17); Calcium 8.3 mg/dL (8.4-10.2); Carbon Dioxide 20 mmol/L (22-30); Chloride 114 mmol/L (98-107); Estimated CRCL calculation 19 ml/min; Estimated Glomerular Filt Rate 24; Glucose 147 mg/dL (65-110); Magnesium 1.9 mg/dL (1.6-2.3); Potassium 4.3 mmol/L (3.4-5.0); Sodium 139 mmol/L (137-145)
[2024-05-21] MEDS: LEVOTHYROXINE SODIUM 150 MCG TABLET PO (06:19)
[2024-05-21] MEDS: ACETAMINOPHEN 325 MG TABLET PO ×2 (06:19→08:33)
[2024-05-21 06:32] VITALS: O2SAT 93
[2024-05-21 07:47] LABS: Glucose Point of Care 142 mg/dl (65-105)
[2024-05-21] MEDS: UMECLIDINIUM/VILANTEROL 62.5-25 MCG ELLIPTA 1 PUFF INHALATION (08:05)
[2024-05-21 08:06] VITALS: O2SAT 95
[2024-05-21] MEDS: FERROUS SULFATE 325 MG TABLET DR PO (08:33)
[2024-05-21] MEDS: PANTOPRAZOLE 40 MG TABLET PO (08:33)
[2024-05-21] MEDS: ATORVASTATIN 40 MG TABLET PO (08:33)
[2024-05-21] MEDS: lamoTRIgine 50 MG TABLET 150 MG PO (08:33)
[2024-05-21] MEDS: ESCITALOPRAM OXALATE 5 MG TABLET PO (08:34)
[2024-05-21] MEDS: OPTI-GEN TAB 1 TABLET PO (08:34)
[2024-05-21] MEDS: TOLNAFTATE 1% POWDER 45 GM BTL 1 APPLIC TOPICAL (08:34)
[2024-05-21] MEDS: ENOXAPARIN 30 MG/0.3 ML SYRINGE SUB-Q (08:35)
[2024-05-21] MEDS: FAMOTIDINE 20 MG/2 ML VIAL IV PUSH (08:36)
--- NOTE | 2024-05-21 09:31 | PM.IMPN ---
Progress Note: A&P Assessment and Plan (1) Pseudohyponatremia: Code(s): R79.89 - Other specified abnormal findings of blood chemistry Status: Acute (2) Closed fracture of lateral portion of tibial plateau: Code(s): S82.123A - Displaced fracture of lateral condyle of unspecified tibia, initial encounter for closed fracture Status: Acute (3) Hyperosmolar hyperglycemic state (HHS): Code(s): E11.00 - Type 2 diabetes mellitus with hyperosmolarity without nonketotic hyperglycemic-hyperosmolar coma (NKHHC) Status: Acute (4) Thrombocytopenia: Code(s): D69.6 - Thrombocytopenia, unspecified Status: Acute Plan (1) Hyperosmolar hyperglycemic state (HHS): Code(s): E11.00 - Type 2 diabetes mellitus with hyperosmolarity without nonketotic hyperglycemic-hyperosmolar coma (NKHHC) Status: Acute Assessment and Plan: Patient presented with fluid of 880 but negative beta hydroxybutyrate suggestive of HHS Received 2 L IV fluids and insulin push and blood sugar decreased to 411 Patient was started on insulin drip which has been weaned off now Conservative IV fluids due to history of congestive heart failure Continues subcutaneous insulin Discontinue diuretic medications, may resume diet and medication per PCP evaluation in office (2) Acute upper gastrointestinal bleeding: Code(s): K92.2 - Gastrointestinal hemorrhage, unspecified Status: Acute Assessment and Plan: Patient presented with hemoglobin of 5.9. Patient has acute on chronic anemia. Patient is on scheduled ibuprofen at the group home Her Hemoccult was positive She had a colonoscopy 6 years ago and capsule endoscopy in 2022 which were unremarkable. She had unsuccessful attempt for colonoscopy in 2022 She also has history of cirrhosis and EGD done in 2021 revealed small varices GI has been consulted Patient was transfused 2 units PRBC and hemoglobin appears stable at this time. Continue to monitor received IV PPI and octreotide infusion EDG non bleeding ulcerative gastritis, no varices, discontinue octreotide, start Protonix 40 mg b.i.d. p.o. (3) Anemia: Code(s): D64.9 - Anemia, unspecified Status: Acute Assessment and Plan: Patient has history of chronic anemia and now appears to have hemoglobin worsened likely secondary to GI blood loss Seen by Hematology Received Iron infusion Hemoglobin stable (4) Hyponatremia: Code(s): E87.1 - Hypo-osmolality and hyponatremia Status: Acute Assessment and Plan: Pseudohyponatremia secondary to hyperglycemia. Resolved Monitor (5) Fracture of tibial plateau: Code(s): S82.143A - Displaced bicondylar fracture of unspecified tibia, initial encounter for closed fracture Status: Acute Assessment and Plan: Patient evaluated by Ortho. Conservative management recommended P.r.n. 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 Ammonia is normal GI has been consulted Rocephin for SBP prophylaxis No significant ascites on ultrasound YASSINE on CKD Creatinine 2.4 on upon arrival, baseline creatinine 1.8 on January 04 Possible due to dehydration She has received IV fluids and is getting PRBC Also received IV fluids at low rate until patient resumes p.o. diet Monitor urine output electrolytes and creatinine Creatinine 2.0 today, YASSINE has resolved Continue to hold the diuretic medications after discharge 5 mm nonhealing ulcer on her nose referral to spread cutter
--- NOTE | 2024-05-21 09:32 | PM.DS ---
DS: Admitting Diagnosis Discharge Date 05/21 Admitting Diagnosis (1) Pseudohyponatremia: Code(s): R79.89 - Other specified abnormal findings of blood chemistry Status: Acute (2) Closed fracture of lateral portion of tibial plateau: Code(s): S82.123A - Displaced fracture of lateral condyle of unspecified tibia, initial encounter for closed fracture Status: Acute (3) Hyperosmolar hyperglycemic state (HHS): Code(s): E11.00 - Type 2 diabetes mellitus with hyperosmolarity without nonketotic hyperglycemic-hyperosmolar coma (NKHHC) Status: Acute (4) Thrombocytopenia: Code(s): D69.6 - Thrombocytopenia, unspecified Status: Acute DS: Discharge Diagnosis Discharge Diagnosis (1) Pseudohyponatremia: Code(s): R79.89 - Other specified abnormal findings of blood chemistry Status: Acute (2) Closed fracture of lateral portion of tibial plateau: Code(s): S82.123A - Displaced fracture of lateral condyle of unspecified tibia, initial encounter for closed fracture Status: Acute (3) Hyperosmolar hyperglycemic state (HHS): Code(s): E11.00 - Type 2 diabetes mellitus with hyperosmolarity without nonketotic hyperglycemic-hyperosmolar coma (NKHHC) Status: Acute (4) Thrombocytopenia: Code(s): D69.6 - Thrombocytopenia, unspecified Status: Acute DS: Summary Hospital Course Hospital Course: Per H&P, This is a 78-year-old female with history of stroke, chronic obstructive pulmonary disease, hypertension, hyperlipidemia, cirrhosis secondary to fatty liver disease with history of esophageal varices, hepatic encephalopathy, chronic kidney disease, type 2 diabetes mellitus, hypothyroidism, diastolic congestive heart failure, ESBL UTI, and anemia who presented to the emergency department via EMS from [facility] for evaluation after a fall. The patient provides the following history. She was sent in today for evaluation after complaining of low back and knee pain after slipping and her shower and falling forward onto her knees. She denies head trauma and loss of consciousness in the fall and states that it was purely mechanical. She has otherwise been feeling in her usual state of chronically poor health. She denies fever, chills, sweats, cold and flu symptoms, chest pain, shortness of breath, abdominal pain, nausea, vomiting, diarrhea, dysuria, hematemesis, and hematochezia. Her stools are always dark which she attributes to iron supplementation In the ED: She was afebrile on arrival with stable vital signs. Labs were significant for a WBC count of 5.4, hemoglobin 5.9, hematocrit 18.3%, platelets 67, INR 1.4, sodium 122, chloride 93, BUN 48, creatinine 2.30, glucose 80 ED, lactic acid 4.5, total protein 6.9, albumin 3.2, beta hydroxybutyrate 0.25. Urine is positive for 1+ protein and 3+ glucose. CT of the head, neck, and lumbar spine were without acute findings. Right knee CT showed a mildly depressed and mildly comminuted impaction fracture along the posterior lateral tibial plateau. She received a 2 L normal saline bolus and was started on insulin drip for hyperglycemia. She has also been started on octreotide drip and pantoprazole given her anemia and history of variceal bleeding. She has also been started on ceftriaxone for SBP prophylaxis. The following med issues have been addressed during hospitalization (1) Hyperosmolar hyperglycemic state (HHS): Code(s): E11.00 - Type 2 diabetes mellitus with hyperosmolarity without nonketotic hyperglycemic-hyperosmolar coma (NKHHC) Status: Acute Assessment and Plan: Patient presented with fluid of 880 but negative beta hydroxybutyrate suggestive of HHS Received 2 L IV fluids and insulin push and blood sugar decreased to 411 Patient was started on insulin drip which has been weaned off now Conservative IV fluids due to history of congestive heart failure Continues subcutaneous insulin Discontinue diureti
[2024-05-21 11:51] LABS: Glucose Point of Care 135 mg/dl (65-105)
[2024-05-21 13:21] LABS: SARS-CoV-2 RNA PCR Negative (Negative)
--- NOTE | 2024-05-21 13:39 | PM.PNORT ---
Progress Note: A&P Assessment and Plan (1) Closed fracture of lateral portion of tibial plateau: Code(s): S82.123A - Displaced fracture of lateral condyle of unspecified tibia, initial encounter for closed fracture Status: Acute Assessment and Plan: Patient is cheerful and has no complaints today. She is sitting in that her with her left leg externally rotated in a figure 4 position her left ankle resting on the knee immobilizer as this is comfortable for and states she has symptoms of pain in left knee. Again, CT of left knee and x-rays of left fracture. She has an impacted fracture of the posterior margin of the lateral tibial plateau right knee and she has the immobilizer in place. Discharge order Has been placed for her to be transferred the halfway unit today. Patient is aware is ready. I reviewed the discharge summary I have added instructions on physical therapy and weight-bearing should be touch weight-bearing on the right leg. She does not have any orders axis. She will be at high risk for DVT without prophylaxis since the right leg is immobilized. I have entered Lovenox 30 mg Q 24 hours into the discharge medications ordered and will ask the nurse to make sure that this is approved by the hospitalist in the GI service as she did have a recent. Her hemoglobin has been fairly stable. Hemoglobin was 9.7 this morning, 10 yesterday, 10.3 the day before and 10.9 the day before that. I would recommend a CBC be drawn the in 3 days and then every to monitor her platelets since she will be on Lovenox and monitor her hemoglobin since she is at risk for further GI bleeding. Other considerations with respect to pharmacologic DVT prophylaxis include history of basal ganglia intracerebral hemorrhage noted last on CT scan of the head 01/19/2020. All subsequent CT scan showed no evidence of hemorrhage. She does have CT evidence of chronic ischemic changes in the brain. I should see her in the office and 4 weeks to assess her progress with x-rays at that time. 35 minutes were spent in total care of this patient today. Subjective Subjective Date/Time Seen: 05/21/24 13:39 Objective Data Vital Signs Vital Signs: Vital Signs - 24 hr 05/20/24 14:00 05/20/24 20:00 05/20/24 21:05 Temperature 36.8 C 36.4 C L Pulse Rate 71 78 Respiratory Rate 18 18 Blood Pressure 176/41 H 152/67 H Pulse Oximetry 96 96 95 Oxygen Delivery Nasal Cannula Oxygen Flow Rate 1 05/21/24 06:00 05/21/24 06:32 05/21/24 08:06 Temperature 37.0 C Pulse Rate 69 Respiratory Rate 20 Blood Pressure 166/55 H Pulse Oximetry 94 93 95 Oxygen Delivery Room Air Room Air Oxygen Flow Rate 05/21/24 08:00 Temperature Pulse Rate Respiratory Rate Blood Pressure Pulse Oximetry Oxygen Delivery Room Air Oxygen Flow Rate Intake/Output Intake/Output: Intake & Output 05/18/24 05/19/24 05/20/24 05/21/24 23:59 23:59 23:59 23:59 Intake Total 463.7 1605 1389 580 Output Total 7075 218 9847 Balance -861.3 855 -261 580 Meds/Results Medications: Active Medications Generic Name Dose Route Start Last Admin Trade Name Freq PRN Reason Stop Dose Admin Acetaminophen 325 mg 05/17/24 17:00 05/21/24 08:33 Acetaminophen 325 Mg Tablet PO 325 mg Q4HR PACO Administration Atorvastatin Calcium 40 mg 05/18/24 09:00 05/21/24 08:33 Atorvastatin 40 Mg Tablet PO 40 mg DAILY PACO Administration Dextrose 12.5 gm 05/17/24 14:12 05/18/24 04:43 Dextrose 50% 25 Gm/50 Ml Syringe IV PUSH 12.5 gm PRN PRN Administration Hypoglycemia Protocol Diphenhydramine HCl 25 mg 05/19/24 16:58 Diphenhydramine Hcl Inj 50 Mg/Ml Vial IV PUSH Q4H PRN Itching Enoxaparin Sodium 30 mg 05/19/24 09:00 05/21/24 08:35 Enoxaparin 30 Mg/0.3 Ml Syringe SUB-Q 30 mg DAILY PACO Administration Escitalopram Oxalate 5 mg 05/18/24 09:00 05/21/24 08:34 Escitalopram Oxalate 5 Mg Tablet PO
== END 2024-05-21 16:00 | DRG 377 ==
LOC: ANHED 11:18 → ANHICU 14:52 → ANH3MEDSUR 05-19 14:55
PROVIDERS: Internal Medicine; Internal Medicine Gastroenterology; Internal Medicine Hematology & Oncology; Nurse Practitioner Family; Admitting Provider Internal Medicine; Emergency Provider Emergency Medicine; PCP Family Medicine; Visit Provider Internal Medicine
PROC: 0DJ08ZZ Inspection of Upper Intestinal Tract, Via Natural or Artificial Opening Endoscopic (ICD-10-PCS; CPT 43235; principal; 2024-05-18 16:00)
DX: K92.2 Gastrointestinal hemorrhage, unspecified (principal); E11.00 Type 2 diabetes mellitus with hyperosmolarity without nonketotic hyperglycemic-hyperosmolar coma (NKHHC); D62 Acute posthemorrhagic anemia; S82.141A Displaced bicondylar fracture of right tibia, initial encounter for closed fracture; E87.1 Hypo-osmolality and hyponatremia; I13.0 Hypertensive heart and chronic kidney disease with heart failure and stage 1 through stage 4 chronic kidney disease, or unspecified chronic kidney disease; N18.4 Chronic kidney disease, stage 4 (severe); I50.32 Chronic diastolic (congestive) heart failure; N17.9 Acute kidney failure, unspecified; K29.00 Acute gastritis without bleeding; E11.22 Type 2 diabetes mellitus with diabetic chronic kidney disease; I35.0 Nonrheumatic aortic (valve) stenosis; M19.90 Unspecified osteoarthritis, unspecified site; F31.9 Bipolar disorder, unspecified; E11.42 Type 2 diabetes mellitus with diabetic polyneuropathy; W18.2XXA Fall in (into) shower or empty bathtub, initial encounter; K21.9 Gastro-esophageal reflux disease without esophagitis; E03.9 Hypothyroidism, unspecified; K58.9 Irritable bowel syndrome, unspecified; K74.60 Unspecified cirrhosis of liver; K75.81 Nonalcoholic steatohepatitis (NASH); J44.9 Chronic obstructive pulmonary disease, unspecified; M81.0 Age-related osteoporosis without current pathological fracture; E78.5 Hyperlipidemia, unspecified; D63.1 Anemia in chronic kidney disease; D69.59 Other secondary thrombocytopenia; F03.90 Unspecified dementia, unspecified severity, without behavioral disturbance, psychotic disturbance, mood disturbance, and anxiety; L98.499 Non-pressure chronic ulcer of skin of other sites with unspecified severity; Z66 Do not resuscitate; Z86.73 Personal history of transient ischemic attack (TIA), and cerebral infarction without residual deficits; Z11.52 Encounter for screening for COVID-19; Z96.1 Presence of intraocular lens; Z98.42 Cataract extraction status, left eye; Z98.41 Cataract extraction status, right eye; Z90.49 Acquired absence of other specified parts of digestive tract; Z87.891 Personal history of nicotine dependence
CPT/HCPCS: 36415; 36430; 36600; 70450; 72125; 72131; 73502; 73562; 73700; 76705; 80053; 81003; 82010; 82105; 82140; 82607; 82728; 82746; 82805; 82948; 83036; 83540; 83550; 83605; 83615; 83735; 84100; 84443; 85014; 85018; 85025; 85027; 85046; 85055; 85610; 86850; 86880; 86900; 86901; 86902; 86922; 87635; 87641; 88305; 94640; 96361; 96372; 96374; 96375; 97110; 97161; 97166; 97530; 99291; A9270; C9113; G0378; J0360; J0696; J1200; J1650; J1756; J1815; J2270; J2354; J2704; J7030; J7040; J7050; J7120; P9016; Q5105

== ENCOUNTER 2024-05-27 20:15 | Emergency (ER) | payer MEDICARE, MEDICAID, SELFPAY ==
[2024-05-27] VITALS (14 sets, daily range): BP systolic 150–192; BP diastolic 48–96; PULSE 66–75; RESP 13–24; TEMP 37.1; O2SAT 94–100
--- NOTE | ~2024-05-27 | XR_ITS ---
EXAMINATION: XR chest 1V portable DATE: 05/27/2024 20:58 INDICATION: Shortness of breath. TECHNIQUE: A single frontal view of the chest was obtained. COMPARISON: Chest single view 01/08/2024 FINDINGS: There is chronic mild elevation of left hemidiaphragm. No pneumonia, pleural effusion, or p neumothorax. Cardiomegaly is noted. There is a healing fracture of right clavicle. IMPRESSION: 1. Cardiomegaly. Reviewed, dictated and finalized at location E. IMPRESSION: 1. Cardiomegaly.
--- NOTE | 2024-05-27 20:34 | ECG_ITS ---
Test Date: 2024-05-27 20:22:29 Measurements Intervals [place] Rate: 69 P: 26 OK: 183 QRS: -60 QRSD: 165 T: 30 QT: 450 QTc: 484 Interpretive Statements SINUS RHYTHM INTRAVENTRICULAR CONDUCTION DELAY [130+ ms QRS DURATION] No previous ECG available for comparison Electronically Signed On 05-28-2024 11:19:00 CDT by Miki Morris M.D.
--- NOTE | 2024-05-27 20:44 | PC.NURSE ---
22 guage iv established in the left forearm upon arrival by [facility]. pt iv infiltered. this rn removed iv.
[2024-05-27 20:59] LABS: Eosinophils Absolute Auto 0.2 K/mm3 (0-0.3); Eosinophils Percent Auto 5.7 % (0-4.4); Hematocrit 27.6 % (37.0-47.0); Hemoglobin 8.3 g/dL (12.0-15.0); Immature Granulocyte Absolute 0.04 K/mm3 (0.00-0.031); Immature Granulocyte Percent A 1.3 % (0-0.5); Lymphocytes Absolute Auto 0.52 K/mm3 (0.9-3.2); Lymphocytes Percent Auto 17.3 % (18.3-44.2); Mean Corpuscular HGB Conc 30.1 g/dl (32-36); Mean Corpuscular Hemoglobin 30.1 pg (26-34); Mean Platelet Volume 9.5 fl (7.4-10.4); Monocytes Absolute Auto 0.2 K/mm3 (0.1-0.6); Monocytes Percent Auto 6.7 % (2.6-8.5); Platelet Count Result 117 k/mm3 (150-375); Red Blood Count 2.76 M/mm3 (4.2-5.4); Red Cell Distribution Width 19.5 % (11.5-14.5)
[2024-05-27 21:11] LABS: Alanine Aminotransferase 28 U/L (6-35); Albumin Level 3.1 g/dL (3.5-5.1); Alkaline Phosphatase 257 U/L (38-126); Anion Gap 9 mmol/L (4-12); Aspartate Amino Transferase 36 U/L (14-36); Bilirubin,Total 0.3 mg/dL (0.2-1.3); Blood Urea Nitrogen 38 mg/dL (7-17); Calcium 8.5 mg/dL (8.4-10.2); Carbon Dioxide 16 mmol/L (22-30); Chloride 114 mmol/L (98-107); Estimated CRCL calculation 15 ml/min; Estimated Glomerular Filt Rate 20; Glucose 150 mg/dL (65-110); Potassium 5.5 mmol/L (3.4-5.0); Sodium 139 mmol/L (137-145)
[2024-05-27] MEDS: ALBUTEROL SULFATE NEB 2.5 MG/3 ML INH INHALATION (21:18)
[2024-05-27 21:29] LABS: Alveolar/Arterial O2 Gradient 40.9 mmHg; Fractional Inspired Oxygen 21 %; HCO3 ABG 16.4 mEq/l (22.0-26.0); Oxygen Content ABG 12.4 %vol (16.0-22.0); Oxygen Saturation ABG 94.5 % (95.0-100.0); Oxyhemoglobin 94.3 % THb (90.0-100.0); PCO2 ABG 29.7 mmHg (35.0-45.0); PO2 ABG 73.3 mmHg (80.0-100.0); PO2 FiO2 Ratio Arterial Blood 3.49 %; Total Hemoglobin 9.3 g/dL (12.0-18.0)
[2024-05-27 21:30] LABS: Device ROOM AIR; Modified Allen's Test Pass; Site Drawn LEFT RADIAL
[2024-05-27 21:39] LABS: NT Pro B Type Natriuretic Pept 6570 pg/mL (19.9-100)
[2024-05-27 21:44] LABS: INR 1.2; Procalcitonin 0.4 ng/mL; Prothrombin Time 15.7 Seconds (11.1-14.7)
[2024-05-27 21:45] LABS: Troponin I 0.039 ng/mL (0.000-0.034)
[2024-05-27 22:02] LABS: Lactic Acid Reflex 1.8 mmol/L (0.7-2.0)
[2024-05-27 22:32] LABS: Influenza A QL RT-PCR Negative (Negative); Influenza B QL RT-PCR Negative (Negative); RSV RNA, RT-PCR Negative (Negative); SARS-CoV-2 RNA PCR Negative (Negative)
[2024-05-27] MEDS: ASPIRIN 81 MG CHEWABLE TABLET 324 MG PO (22:35)
--- NOTE | 2024-05-27 23:07 | ED.GENADULT ---
HPI - General Adult General Chief complaint: Shortness of Breath/Dyspnea Stated complaint: sob Time Seen by Provider: 05/27/24 21:00 History of Present Illness HPI narrative: Patient is a 78-year-old female presents emergency department with chief complaint of shortness of breath. Patient reports that she has been feeling more and more short of breath lately and reports that she was at the local nursing facility was given some Ativan and was given Narcan by the staff after they felt that she was overly drowsy. Patient denies chest pain reports that she does have history of cirrhosis and reports that her abdomen is somewhat distended but about words been lately Related Data Home Medications Medication Instructions Recorded Confirmed escitalopram oxalate 5 mg tablet 5 mg PO DAILY 08/21/21 05/25/24 trazodone 100 mg tablet 200 mg PO HS 08/21/21 05/25/24 glucagon HCl 1 mg solution for 1 mg subcut Q20M PRN Hypoglycemia 02/13/22 05/25/24 injection (Glucagon (HCl) Emergency Kit) sodium chloride 0.65 % nasal spray 1 spray intranasal BID PRN Dry 02/13/22 05/25/24 aerosol (Saline Mist) Nasal Passages hydroxyzine HCl 25 mg tablet 25 mg PO Q8H PRN Itching 08/25/22 05/25/24 acetaminophen 500 mg tablet 1,000 mg PO BID PRN Pain (Scale 09/14/22 05/25/24 Score 1-3) ferrous sulfate 325 mg (65 mg 325 mg PO DAILY 12/22/22 05/25/24 iron) tablet atorvastatin 40 mg tablet 40 mg PO DAILY 01/22/23 05/25/24 gabapentin 600 mg tablet 200 mg PO Q8H 01/22/23 05/25/24 PreserVision AREDS 1 tab-cap PO DAILY 12/15/23 05/25/24 cholecalciferol (vitamin D3) 1,250 1,250 mcg PO WEEKLY 12/15/23 05/25/24 mcg (50,000 unit) tablet cyanocobalamin (vitamin B-12) 1,000 mcg IM [id number] 12/15/23 05/25/24 1,000 mcg/mL injection solution lamotrigine 150 mg tablet 150 mg PO Q12H 05/17/24 05/25/24 Allergies Allergy/AdvReac Type Severity Reaction Status Date / Time alendronate sodium Allergy Unknown Verified 05/17/24 07:50 amantadine Allergy Unknown Verified 05/17/24 07:50 benztropine Allergy Other Verified 05/17/24 07:50 chlorpromazine Allergy Unknown Verified 05/17/24 07:50 levofloxacin Allergy Unknown Verified 05/17/24 07:50 Macrolide Antibiotics Allergy Unknown Verified 05/17/24 07:50 mirtazapine Allergy Unknown Verified 05/17/24 07:50 Quinolones Allergy Unknown Verified 05/17/24 07:50 topiramate Allergy Unknown Verified 05/17/24 07:50 Review of Systems Review of Systems: A 10 system review of systems was completed on the patient and is negative except for what is stated in the HPI. Nursing and ancillary documentation was reviewed. [facility] Past Medical History Medical History Anxiety Aortic stenosis Moderate on echocardiogram in November 2021. Arthritis Asthma Bipolar disorder Cerebrovascular accident Chronic kidney disease, stage 4 (severe) Chronic obstructive pulmonary disease PFTs 06/28/2021: Moderate obstructive abnormality, moderate decreased diffusion capacity. 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 Moreno History of partial hysterectomy History of thyroidectomy History of tonsillectomy Family History Family Histor
[2024-05-28] VITALS (9 sets, daily range): BP systolic 140–195; BP diastolic 46–76; PULSE 66–73; RESP 14–20; O2SAT 97–100
--- NOTE | 2024-05-28 00:22 | ECG_ITS ---
Test Date: 2024-05-28 00:28:37 Measurements Intervals [place] Rate: 72 P: 33 HI: 192 QRS: -69 QRSD: 166 T: 47 QT: 438 QTc: 480 Interpretive Statements SINUS RHYTHM MARKED LEFT AXIS DEVIATION [QRS AXIS < -30] INTRAVENTRICULAR CONDUCTION DELAY [130+ ms QRS DURATION] Compared to ECG 05/27/2024 20:22:29 Left-axis deviation now present Electronically Signed On 05-28-2024 11:20:47 CDT by Miki Morris M.D.
[2024-05-28 01:13] LABS: Troponin I 0.041 ng/mL (0.000-0.034)
[2024-05-28] MEDS: FUROSEMIDE INJ 40 MG/4 ML VIAL IV PUSH (02:33)
--- NOTE | 2024-05-28 02:44 | PC.NURSE ---
Gave report to [address] ([facility]). They are aware she is on the way back.
== END 2024-05-28 02:54 ==
PROVIDERS: Emergency Provider Emergency Medicine; PCP Family Medicine
DX: J44.9 Chronic obstructive pulmonary disease, unspecified (principal); I50.9 Heart failure, unspecified; Z20.822 Contact with and (suspected) exposure to COVID-19; Z87.891 Personal history of nicotine dependence; F41.9 Anxiety disorder, unspecified; M19.90 Unspecified osteoarthritis, unspecified site; F31.9 Bipolar disorder, unspecified; I13.0 Hypertensive heart and chronic kidney disease with heart failure and stage 1 through stage 4 chronic kidney disease, or unspecified chronic kidney disease; E11.22 Type 2 diabetes mellitus with diabetic chronic kidney disease; N18.4 Chronic kidney disease, stage 4 (severe); Z79.4 Long term (current) use of insulin; E03.9 Hypothyroidism, unspecified; K21.9 Gastro-esophageal reflux disease without esophagitis
CPT/HCPCS: 36415; 36600; 71045; 80053; 82805; 83605; 83880; 84145; 84484; 85025; 85610; 85730; 87637; 93005; 94640; 96374; 99284; A9270; J1940

== ENCOUNTER 2024-06-08 15:04 | Emergency (ER) | payer MEDICARE, MEDICAID, SELFPAY ==
[2024-06-08] VITALS (29 sets, daily range): BP systolic 142–198; BP diastolic 44–130; PULSE 58–76; RESP 13–27; TEMP 36.9–37.4; O2SAT 95–99
--- NOTE | 2024-06-08 15:08 | ED.RECABL ---
HPI - Recheck/Abnormal Lab/Rx General Chief Complaint: Recheck/Abnormal Lab/Rx <Asia Barreto MD - Last Filed: 06/10/24 07:10> Stated Complaint: abn lab <Asia Barreto MD - Last Filed: 06/10/24 07:10> Time Seen by Provider: 06/08/24 15:07 <Asia Barreto MD - Last Filed: 06/10/24 07:10> History of Present Illness HPI narrative: Patient is a 78-year-old female with history of CVA, COPD, CKD stage 4, gastritis, heart failure, hypertension here with anemia. Patient had lab work rechecked at her facility, was sent in by a physician at that facility for 2 units of packed red blood cells for anemia after they were unable to schedule an outpatient. Patient notes continued dark stools since recent hospitalization during which she had a endoscopy performed showing nonbleeding gastritis and was sent home on PPIs. She does note some fatigue and shortness of breath which are similar to when she has required blood products in the past. Sister at bedside notes that this is her 17th blood transfusion in the last year. They would prefer for patient to be transfused and discharged back to facility if possible. <Asia Barreto MD - Last Filed: 06/10/24 07:10> Related Data Home Medications: Home Medications Medication Instructions Recorded Confirmed escitalopram oxalate 5 mg tablet 5 mg PO DAILY 08/21/21 06/08/24 trazodone 100 mg tablet 200 mg PO HS 08/21/21 06/08/24 glucagon HCl 1 mg solution for 1 mg subcut Q20M PRN Hypoglycemia 02/13/22 06/08/24 injection (Glucagon (HCl) Emergency Kit) sodium chloride 0.65 % nasal spray 1 spray intranasal BID PRN Dry 02/13/22 06/08/24 aerosol (Saline Mist) Nasal Passages hydroxyzine HCl 25 mg tablet 25 mg PO Q8H PRN Itching 08/25/22 06/08/24 acetaminophen 500 mg tablet 1,000 mg PO BID PRN Pain (Scale 09/14/22 06/08/24 Score 1-3) ferrous sulfate 325 mg (65 mg 325 mg PO DAILY 12/22/22 06/08/24 iron) tablet atorvastatin 40 mg tablet 40 mg PO DAILY 01/22/23 06/08/24 gabapentin 600 mg tablet 200 mg PO Q8H 01/22/23 06/08/24 PreserVision AREDS 1 tab-cap PO DAILY 12/15/23 06/08/24 cholecalciferol (vitamin D3) 1,250 1,250 mcg PO WEEKLY 12/15/23 06/08/24 mcg (50,000 unit) tablet cyanocobalamin (vitamin B-12) 1,000 mcg IM [id number] 12/15/23 06/08/24 1,000 mcg/mL injection solution lamotrigine 150 mg tablet 150 mg PO Q12H 05/17/24 06/08/24 <Asia Barreto MD - Last Filed: 06/10/24 07:10> Allergies/Adverse Reactions: Allergies Allergy/AdvReac Type Severity Reaction Status Date / Time alendronate sodium Allergy Unknown Verified 05/17/24 07:50 amantadine Allergy Unknown Verified 05/17/24 07:50 benztropine Allergy Other Verified 05/17/24 07:50 chlorpromazine Allergy Unknown Verified 05/17/24 07:50 levofloxacin Allergy Unknown Verified 05/17/24 07:50 Macrolide Antibiotics Allergy Unknown Verified 05/17/24 07:50 mirtazapine Allergy Unknown Verified 05/17/24 07:50 Quinolones Allergy Unknown Verified 05/17/24 07:50 topiramate Allergy Unknown Verified 05/17/24 07:50 <Asia Barreto MD - Last Filed: 06/10/24 07:10> Review of Systems Review of Systems: All systems reviewed & are unremarkable except as noted in HPI and below <Asia Barreto MD - Last Filed: 06/10/24 07:10> [facility] Past Medical History Medical History: Medical History Anxiety Aortic stenosis Moderate on echocardiogram in November 2021. Arthritis Asthma Bipolar disorder Cerebrovascular accident Chronic kidney disease, stage 4 (severe) Chronic obstructive pulmonary disease PFTs 06/28/2021: Moderate obstructive abnormality, moderate decreased diffusion capacity. Depression Diabetic peripheral neuropathy Esophageal varices Frequent falls Gastritis Gastroesophageal reflux disease Heart failure with preserved ejection fraction History of infection due to ESBL Escherichia coli Hyperlipidemia Hypertension Hypothyroidism Insulin dependent di
[2024-06-08 15:19] LABS: Basophils Absolute Auto 0.1 K/mm3 (0.0-0.1); Basophils Percent Auto 0.8 % (0.2-1.2); Eosinophils Absolute Auto 0.4 K/mm3 (0-0.3); Eosinophils Percent Auto 5.9 % (0-4.4); Hematocrit 22.5 % (37.0-47.0); Immature Granulocyte Absolute 0.13 K/mm3 (0.00-0.031); Lymphocytes Absolute Auto 0.76 K/mm3 (0.9-3.2); Lymphocytes Percent Auto 11.7 % (18.3-44.2); Mean Corpuscular HGB Conc 30.2 g/dl (32-36); Mean Corpuscular Hemoglobin 31.5 pg (26-34); Mean Corpuscular Volume 104.2 fl (80-100); Mean Platelet Volume 9.2 fl (7.4-10.4); Monocytes Absolute Auto 0.2 K/mm3 (0.1-0.6); Monocytes Percent Auto 3.4 % (2.6-8.5); Neutrophils Absolute Auto 4.9 K/mm3 (1.3-6.7); Neutrophils Percent Auto 76.2 % (45.5-73.1); Nucleated Red Blood Cells Perc 0.3 % (0.0-0.2); Platelet Count Result 136 k/mm3 (150-375); Red Blood Count 2.16 M/mm3 (4.2-5.4); Red Cell Distribution Width 19.9 % (11.5-14.5); White Blood Count 6.5 K/mm3 (4.5-10.0)
[2024-06-08 15:30] LABS: Alanine Aminotransferase 38 U/L (6-35); Albumin Level 3.6 g/dL (3.5-5.1); Alkaline Phosphatase 510 U/L (38-126); Anion Gap 11 mmol/L (4-12); Aspartate Amino Transferase 57 U/L (14-36); Bilirubin,Total 0.3 mg/dL (0.2-1.3); Blood Urea Nitrogen 26 mg/dL (7-17); Calcium 8.7 mg/dL (8.4-10.2); Carbon Dioxide 18 mmol/L (22-30); Chloride 112 mmol/L (98-107); Estimated CRCL calculation 16 ml/min; Estimated Glomerular Filt Rate 22; Glucose 111 mg/dL (65-110); Potassium 5.7 mmol/L (3.4-5.0); Sodium 141 mmol/L (137-145)
[2024-06-08 15:39] LABS: Hemoglobin 6.8 g/dL (12.0-15.0)
--- NOTE | 2024-06-08 15:45 | ECG_ITS ---
Test Date: 2024-06-08 16:02:26 Measurements Intervals [place] Rate: 62 P: 55 NC: 234 QRS: -66 QRSD: 163 T: 26 QT: 465 QTc: 475 Interpretive Statements SINUS RHYTHM WITH FIRST DEGREE AV BLOCK RIGHT BUNDLE BRANCH BLOCK LEFT ANTERIOR FASCICULAR BLOCK BASELINE ARTIFACT- I, III, AVR, AVL, AVF, V1-V6 ABNORMAL ECG Compared to ECG 05/28/2024 00:28:37 First degree AV block now present Electronically Signed On 06-08-2024 20:28:05 CDT by George Moyer D.O.
[2024-06-08] MEDS: PANTOPRAZOLE SODIUM IV 40 MG VIAL IV PUSH (15:57)
--- NOTE | 2024-06-08 18:15 | PC.NURSE ---
Signed blood transfusion consent on pts chart.
[2024-06-08] MEDS: SODIUM ZIRCONIUM CYCLOSILICATE 10 GM POWD.PACK PO (18:37)
[2024-06-08] MEDS: TUBING, BLOOD SET 1 EACH XX ×2 (19:33→21:33)
[2024-06-08] MEDS: SODIUM CHLORIDE 0.9% IV 250 ML 30 ML IV CONT (19:33)
--- NOTE | 2024-06-08 23:14 | PC.NURSE ---
2245: This RN went into pt room to document hour vitals due to blood transfusion. RN noticed that blood was not infusing anymore. RN checked the tubing and J lube by flushing with NS. RN unhooked blood tubing from J lube and unclamped tubing to try and let it run out. No blood was moving through the tube and RN noticed a clot at the end of the tubing. RN stopped infusion and notified rn hemodialysis charge right away. Vascular access and Dr. Daniel notified as well. Rojelio from Vascular access and rn hemodialysis charge called blood bank and they stated to return blood to blood bank and reorder new blood for second infusion. Pt had no reaction to transfusion and vitals remain stable. This RN started infusion of blood within 30 minute time frame of picking it up from blood bank. Tubing was primed with Beatrice DHALIWAL present. She was with this RN the whole time for set up of transfusion and cosigned as well.
[2024-06-09] VITALS (7 sets, daily range): BP systolic 104–209; BP diastolic 60–92; PULSE 60–91; RESP 16–28; TEMP 36.9–37.1; O2SAT 94–97
[2024-06-09] MEDS: SODIUM CHLORIDE 0.9% IV 250 ML 30 ML IV CONT (03:11)
[2024-06-09] MEDS: TUBING, BLOOD SET 1 EACH XX (03:11)
[2024-06-09] MEDS: ALPRAZolam (*CRX) 0.5 MG TABLET PO (05:04)
== END 2024-06-09 06:40 ==
PROVIDERS: Emergency Provider Student in an Organized Health Care Education/Training Program; PCP Family Medicine
DX: D64.9 Anemia, unspecified (principal); E87.5 Hyperkalemia; I13.0 Hypertensive heart and chronic kidney disease with heart failure and stage 1 through stage 4 chronic kidney disease, or unspecified chronic kidney disease; E11.22 Type 2 diabetes mellitus with diabetic chronic kidney disease; N18.4 Chronic kidney disease, stage 4 (severe); I50.9 Heart failure, unspecified; E03.9 Hypothyroidism, unspecified; E78.5 Hyperlipidemia, unspecified; Z86.73 Personal history of transient ischemic attack (TIA), and cerebral infarction without residual deficits; Z87.891 Personal history of nicotine dependence
CPT/HCPCS: 36415; 36430; 80053; 85025; 86850; 86900; 86901; 86922; 93005; 96360; 96361; 99285; A9270; J2470; J7050; P9016

== ENCOUNTER 2024-08-15 22:23 | Inpatient (IN) | payer MEDICARE, MEDICAID, SELFPAY ==
--- NOTE | ~2024-08-15 | XR_ITS ---
EXAM: XR foot RT 2V DATE: 08/15/2024 23:28 HISTORY: right great toe bruising . COMPARISON: 01/02/2023. FINDINGS: Decreased mineralization. No fracture or dislocation. No lytic or blastic lesion. Severe d egenerative change at the first MTP joint. Plantar enthesopathy. Fragmentation of the articular surfa ce of the third metatarsal head, stable. No erosion or periosteal change. Soft tissues within normal limits. IMPRESSION: No acute osseous finding in the right foot. Reviewed, dictated and finalized at location K.
--- NOTE | ~2024-08-15 | XR_ITS ---
EXAMINATION: XR chest 1V Exam Date/Time: 08/15/2024 23:18 CDT HISTORY: fall Comparison: 05/27/2024. RESULT: Lines, tubes, and devices: Cholecystectomy clips. Lungs and pleura: Senescent change, otherwise clear. Stable left hemidiaphragm elevation. Cardiomediastinal silhouette: Stable. Other: No acute osseous or upper abdominal finding. IMPRESSION: No acute cardiopulmonary process. Reviewed, dictated and finalized at location K.
--- NOTE | ~2024-08-15 | CT_ITS ---
EXAMINATION: CT brain wo con DATE: 08/15/2024 23:14 INDICATION: fall . TECHNIQUE: Computed tomography (CT) of the head was performed without intravenous contrast. The mA wa s adjusted according to patient size. Iterative reconstruction technique was employed. The dose-lengt h product was 1210.67 mGy-cm. COMPARISON: 05/17/2024. FINDINGS: Mild motion artifact is present which persisted in repeated imaging attempts. No acute intracranial hemorrhage or extra-axial fluid collection. No hydrocephalus, mass, or herniation. No acute ischemic infarct. Unremarkable dural venous sinus attenuation. No acute osseous abnormality. The aerated spaces are clear. Mild atrophy and chronic white matter change. Atherosclerotic intracranial calcification. Bilateral l ens replacements. Old left basal ganglia and insular infarct. Chronic pituitary enlargement. IMPRESSION: No acute intracranial process. Reviewed, dictated and finalized at location K.
--- NOTE | ~2024-08-15 | XR_ITS ---
EXAM: XR hip RT 2V w AP pelvis DATE: 08/15/2024 23:28 HISTORY: right hip pain, fall . COMPARISON: 05/20/2024. FINDINGS: Osteopenia. Lumbar degenerative disc disease. Degenerative changes in the bilateral hips a nd pubic symphysis. Scattered vascular calcifications. No fracture or dislocation. No lytic or blasti c lesions. IMPRESSION: No acute osseous finding in the pelvis or right hip. Reviewed, dictated and finalized at location K.
--- NOTE | ~2024-08-15 | CT_ITS ---
EXAMINATION: CT cervical spine wo con DATE: 08/15/2024 23:14 INDICATION: fall TECHNIQUE: Computed tomography (CT) of the cervical spine was performed without intravenous contrast. Automated exposure control and iterative reconstruction technique were employed. The dose-length pro duct was 181.54 mGy-cm. COMPARISON: 05/17/2024. FINDINGS: Mild motion artifact is present throughout the scan. Vertebral Body Alignment: Stable mild multilevel listheses. Craniocervical and atlantoaxial alignment: Mild degenerative change. Alignment intact. Osseous structures/fracture: No evidence of a lytic or blastic process in the visualized spine. No e vidence of acute fracture. Cervical soft tissues: The paraspinal soft tissues planes are maintained. Degenerative changes: Degenerative changes, without severe neural foraminal or central canal narrowin g. IMPRESSION: Mildly motion limited examination. No definite acute fracture or traumatic malalignment in the cervical spine. Reviewed, dictated and finalized at location K.
[2024-08-15 22:23] VITALS: BP 185/42; PULSE 61; RESP 19; TEMP 36.6; O2SAT 97
[2024-08-15 22:32] VITALS: PULSE 61
--- NOTE | 2024-08-15 22:42 | ECG_ITS ---
Test Date: 2024-08-15 22:49:55 Measurements Intervals [place] Rate: 60 P: 44 [place]: 165 QRS: -72 QRSD: 170 T: 39 QT: 484 QTc: 485 Interpretive Statements SINUS RHYTHM BORDERLINE AV CONDUCTION DELAY RIGHT BUNDLE BRANCH BLOCK LEFT ANTERIOR FASCICULAR BLOCK ABNORMAL ECG Compared to ECG 06/08/2024 16:02:26 NO SIGNIFICANT CHANGE Electronically Signed On 08-16-2024 05:46:05 CDT by George Moyer D.O.
--- NOTE | 2024-08-15 22:52 | ED.AMS ---
HPI - Altered Mental Status General Chief Complaint: Altered Mental Status Stated Complaint: AMS, LETHARGIC, R LEG PAIN Time Seen by Provider: 08/15/24 22:42 Source: patient Mode of arrival: ambulatory Limitations: no limitations History of Present Illness HPI narrative: This is a 78 year old female that presents to the ER for altered mental status. Facility reports she is not her normal self today. Seems a little lethargic. They found her underneath her bed. She reports she was trying to get out of bed and fell. Reports right hip pain. Otherwise has no complaints. Related Data Home Medications Medication Instructions Recorded Confirmed escitalopram oxalate 5 mg tablet 5 mg PO DAILY 08/21/21 08/16/24 trazodone 100 mg tablet 200 mg PO HS 08/21/21 08/16/24 glucagon HCl 1 mg solution for 1 mg subcut Q20M PRN Hypoglycemia 02/13/22 08/16/24 injection (Glucagon (HCl) Emergency Kit) sodium chloride 0.65 % nasal spray 1 spray intranasal BID PRN Dry 02/13/22 08/16/24 aerosol (Saline Mist) Nasal Passages hydroxyzine HCl 25 mg tablet 50 mg PO Q8H PRN Itching 08/25/22 08/16/24 acetaminophen 500 mg tablet 1,000 mg PO BID PRN Pain (Scale 09/14/22 08/16/24 Score 1-3) atorvastatin 40 mg tablet 40 mg PO HS 01/22/23 08/16/24 gabapentin 600 mg tablet 200 mg PO Q8H 01/22/23 08/16/24 cholecalciferol (vitamin D3) 1,250 1,250 mcg PO WEEKLY 12/15/23 08/16/24 mcg (50,000 unit) tablet cyanocobalamin (vitamin B-12) 1,000 mcg IM [id number] 12/15/23 08/16/24 1,000 mcg/mL injection solution lamotrigine 150 mg tablet 150 mg PO Q12H 05/17/24 08/16/24 furosemide 20 mg tablet 20 mg PO DAILY 08/16/24 08/16/24 insulin glargine 100 unit/mL (3 15 unit subcut BID 08/16/24 08/16/24 mL) subcutaneous pen (Lantus Solostar U-100 Insulin) iron,carbonyl 30 mg-vitamin C 10 1 tablet PO BID 08/16/24 08/16/24 mg-FOS 25 mg chewable tablet (Chewable Iron) lactulose 10 gram/15 mL oral 30 g PO QID 08/16/24 08/16/24 solution vitamins A,C,Y-ycbm-vtchiu 4,296 1 cap PO DAILY 08/16/24 08/16/24 mcg-226 mg-90 mg capsule (PreserVision AREDS) Allergies Allergy/AdvReac Type Severity Reaction Status Date / Time alendronate sodium Allergy Unknown Verified 08/16/24 13:14 amantadine Allergy Unknown Verified 08/16/24 13:14 benztropine Allergy Other Verified 08/16/24 13:14 chlorpromazine Allergy Unknown Verified 08/16/24 13:14 levofloxacin Allergy Unknown Verified 08/16/24 13:14 Macrolide Antibiotics Allergy Unknown Verified 08/16/24 13:14 mirtazapine Allergy Unknown Verified 08/16/24 13:14 Quinolones Allergy Unknown Verified 08/16/24 13:14 topiramate Allergy Unknown Verified 08/16/24 13:14 Review of Systems Review of Systems: CONSTITUTIONAL: Denies fever CARDIOVASCULAR: Denies chest pain RESPIRATORY: Denies dyspnea. GASTROINTESTINAL: Denies abdominal pain, nausea, vomiting MUSCULOSKELETAL: Reports joint pain, and myalgia. All systems reviewed & are unremarkable except as noted in HPI and below PMFSH Past Medical History Medical History Anxiety Aortic stenosis Moderate on echocardiogram in November 2021. Arthritis Asthma Bipolar disorder Cerebrovascular accident Chronic kidney disease, stage 4 (severe) Chronic obstructive pulmonary disease PFTs 06/28/2021: Moderate obstructive abnormality, moderate decreased diffusion capacity. Depression Diabetic peripheral neuropathy Esophageal varices Frequent falls Gastritis Gastroesophageal reflux disease Heart failure with preserved ejection fraction History of infection due to ESBL Escherichia coli Hyperlipidemia Hypertension Hypothyroidism Insulin dependent diabetes mellitus Intraparenchymal hemorrhage of brain Irritable bowel syndrome 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 Osteoporosis Tremor of both hands Surgical History Surgical History History of bladder surgery History of
[2024-08-15 23:03] LABS: Basophils Percent Auto 0.7 % (0.2-1.2); Eosinophils Absolute Auto 0.3 K/mm3 (0-0.3); Eosinophils Percent Auto 8.2 % (0-4.4); Hematocrit 32.5 % (37.0-47.0); Hemoglobin 10.1 g/dL (12.0-15.0); Immature Granulocyte Absolute 0.01 K/mm3 (0.00-0.031); Immature Granulocyte Percent A 0.2 % (0-0.5); Immature Platelet Fraction Pct 1.3 % (0.9-11.2); Lymphocytes Absolute Auto 0.71 K/mm3 (0.9-3.2); Lymphocytes Percent Auto 17.7 % (18.3-44.2); Mean Corpuscular HGB Conc 31.1 g/dl (32-36); Mean Corpuscular Hemoglobin 30.4 pg (26-34); Mean Corpuscular Volume 97.9 fl (80-100); Mean Platelet Volume 9.3 fl (7.4-10.4); Monocytes Absolute Auto 0.3 K/mm3 (0.1-0.6); Monocytes Percent Auto 6.7 % (2.6-8.5); Neutrophils Absolute Auto 2.7 K/mm3 (1.3-6.7); Neutrophils Percent Auto 66.5 % (45.5-73.1); Platelet Count Result 79 k/mm3 (150-375); Red Blood Count 3.32 M/mm3 (4.2-5.4); Red Cell Distribution Width 15.2 % (11.5-14.5)
[2024-08-15 23:11] LABS: Alanine Aminotransferase 33 U/L (6-35); Albumin Level 3.9 g/dL (3.5-5.1); Alkaline Phosphatase 451 U/L (38-126); Anion Gap 12 mmol/L (4-12); Aspartate Amino Transferase 56 U/L (14-36); Bilirubin,Total 0.3 mg/dL (0.2-1.3); Blood Urea Nitrogen 23 mg/dL (7-17); Calcium 9.1 mg/dL (8.4-10.2); Carbon Dioxide 9 mmol/L (22-30); Chloride 119 mmol/L (98-107); Creatine Kinase 23 U/L (30-135); Estimated CRCL calculation 14 ml/min; Estimated Glomerular Filt Rate 22; Glucose 103 mg/dL (65-110); Potassium 5.8 mmol/L (3.4-5.0); Sodium 140 mmol/L (137-145)
[2024-08-15 23:14] LABS: INR 1.6; Prothrombin Time 19.6 Seconds (11.1-14.7)
[2024-08-15 23:15] LABS: Partial Thromboplastin Time 35.3 Seconds (22.3-36.8)
[2024-08-16] VITALS (34 sets, daily range): BP systolic 131–200; BP diastolic 41–100; PULSE 57–74; RESP 13–26; TEMP 35.8–36.9; O2SAT 96–100; BMI 25.5
[2024-08-16 01:50] LABS: Add Urine Microscopic? YES; Appearance Urine Clear (Clear); Bacteria Urine None Seen /hpf; Bilirubin Urine Negative (Negative); Blood Urine Negative (Negative); Color Urine Yellow (Yellow); Glucose Urine UA Negative (Negative); Ketones Urine Negative (Negative); Leukocyte Esterase Ur Negative LEU/UL (Negative); Nitrate Urine Negative (Negative); Protein Urine 2+ mg/dL (Negative); RBC Urine 0-2 /hpf (0-2); Specific Grav Ur 1.013 (1.001-1.035); Squamous Epithelial Cell Urine None Seen /hpf (Few); Urobilinogen Urine 0.2 mg/dL (<2.0); WBC Urine 0-5 /hpf (0-3); pH Urine 5.5 (5.0-9.0)
[2024-08-16 02:02] LABS: Amphetamine Screen Urine Negative (Negative); Barbiturate Screen Urine Negative (Negative); Benzodiazepines Screen Urine Negative (Negative); Cannabinoid Screen Urine Negative (Negative); Cocaine Screen Urine Negative (Negative); Methadone Screen Urine Negative (Negative); Opiate Screen Urine Negative (Negative); Phencyclidine Screen Urine Negative (Negative)
[2024-08-16] MEDS: SODIUM CHLORIDE 0.9% IV 500 ML 999 ML IV CONT (02:43)
[2024-08-16] MEDS: SODIUM ZIRCONIUM CYCLOSILICATE 10 GM POWD.PACK PO (04:39)
[2024-08-16 04:44] LABS: Anion Gap 11 mmol/L (4-12); Blood Urea Nitrogen 24 mg/dL (7-17); Calcium 8.4 mg/dL (8.4-10.2); Carbon Dioxide 9 mmol/L (22-30); Chloride 119 mmol/L (98-107); Estimated CRCL calculation 16 ml/min; Estimated Glomerular Filt Rate 26; Glucose 109 mg/dL (65-110); Potassium 5.9 mmol/L (3.4-5.0); Sodium 139 mmol/L (137-145)
[2024-08-16] MEDS: SODIUM CHLORIDE 0.9% IV 1,000 ML 100 ML IV CONT ×2 (06:34→14:03)
[2024-08-16] MEDS: INSULIN HUMAN REGULAR (*BKC) 100 UNITS/ML 10 UNITS IV PUSH (06:35)
[2024-08-16] MEDS: DEXTROSE 50% 25 GM/50 ML SYRINGE IV PUSH (06:35)
[2024-08-16] MEDS: CALCIUM GLUCONATE 1,000 MG/10 ML VIAL 1000 MG IV PUSH (06:35)
[2024-08-16 06:48] LABS: Glucose Point of Care 100 mg/dl (65-105)
[2024-08-16 06:49] LABS: Ammonia 34 umol/L (9-30)
[2024-08-16 08:59] LABS: Iron 43 ug/dL (37-170)
[2024-08-16 09:08] LABS: Percent Iron Saturation 14 % (20-50)
[2024-08-16 10:06] LABS: Folic Acid 12.2 ng/mL (2.76->20)
--- NOTE | 2024-08-16 13:07 | PC.NURSE ---
This patient, Nisha Sigala, was admitted to [address] [facility] Surg Room 304-01. Report received from ISRA Haywood. Patient/family oriented to hospital policies and general routines including ID bracelet, bed and alarms, visiting hours, pain management, procedures, bathroom and other care routines, personal items, smoking policy, room service/diet, and visiting hours. Information on how to activate the Rapid Response Team has been discussed. Patient/Family are encouraged to report perceived risks to care and to ask questions if they do not understand what they are told or what they should do.
--- NOTE | 2024-08-16 14:26 | PM.IMHP ---
H&P: HPI History of Present Illness Date/Time: 08/16/24 14:26 Chief Complaint: AMS Narrative: 78 yo female with PMH of Stroke, COPD, hypertension, hyperlipidemia, liver cirrhosis with history of esophageal varices, hepatic encephalopathy, CKD, type 2 diabetes, hypothyroidism, diastolic congestive heart failure, anemia presented to the ER on account of AMS. Patient was drowsy at the time of encounter and unable to provide history. according to ER provider patient was found under her bed. They noted that patient is oriented to self at baseline. Unable to do ROS. ER eval notable for BP 185/42, Temperature 96.5. labs notabel for hb 10.1, plts 79, K 5.9, NH3 34, isat 14, TIBC 308, Cr 1.9 which is baseline. Foot xray, Hip/pelvis Xray, CXR no acute changes, CT head adn cervical spine unremarkable. Patient admitted for further eval adn care. Review of Systems Review of Systems: Unable to do review of systems due to AMS [facility] Past Medical History Medical History Anxiety Aortic stenosis Moderate on echocardiogram in November 2021. Arthritis Asthma Bipolar disorder Cerebrovascular accident Chronic kidney disease, stage 4 (severe) Chronic obstructive pulmonary disease PFTs 06/28/2021: Moderate obstructive abnormality, moderate decreased diffusion capacity. 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 Moreno History of partial hysterectomy History of thyroidectomy History of tonsillectomy Family History Family History Sibling Multiple sclerosis Father Acute myocardial infarction, Onset Age: 79 Cerebrovascular accident, Onset Age: 79 Mother Dementia Sibling Acute myocardial infarction, Onset Age: 65 Son Diabetes mellitus Other Depression Family history of arthritis Family history of elevated blood lipids Family history of thyroid disease Hypertension Social History Social History (Updated 07/20/24 @ 13:17 by Vanna Hood [facility]) Social History: Surrogate medical decision maker: Gavino Sigala (son). Code status: Do not resuscitate. Smoking packs per day: 1 Smoking cigarettes per day: 20.0 Years smoked: 50 Smoking pack-years: 50.00 Smoking status: Former smoker Tobacco type: cigarettes Second hand tobacco smoke exposure: No Smoking end date: 11/30/18 Alcohol intake: never Substance use: never Substance use type: does not use Do You Feel Safe in your Home?: Yes Lack of Transportation: No Lack of Food: Never True Current Housing: I Have Housing Concerned About Future Housing: No Difficulty Paying Gas/Electric Bills: No Difficulty Paying for Meds: No Currently Unemployed: No Education: Decline to Answer Difficulty w/ Childcare or Family Care: No Living arrangements[facility] Additional living arrangements comments: with 3 sons. Resident at [facility]. 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 Gender identity (if verbalized by the patient): Female Spiritual care concerns: No
[2024-08-16] MEDS: IRON SUCROSE COMPLEX 200 MG in SODIUM CHLORIDE 0.9% IV 100 ML 220 MG IVPB (14:59)
[2024-08-16 15:48] LABS: Anion Gap 9 mmol/L (4-12); Blood Urea Nitrogen 22 mg/dL (7-17); Calcium 8.5 mg/dL (8.4-10.2); Carbon Dioxide 13 mmol/L (22-30); Chloride 117 mmol/L (98-107); Estimated CRCL calculation 17 ml/min; Estimated Glomerular Filt Rate 27; Glucose 89 mg/dL (65-110); Potassium 5.3 mmol/L (3.4-5.0); Sodium 139 mmol/L (137-145)
[2024-08-16 16:31] LABS: Glucose Point of Care 90 mg/dl (65-105)
[2024-08-16] MEDS: ISOSORBIDE DINITRATE 10 MG TABLET PO (17:08)
[2024-08-16 18:06] LABS: Thyroid Stimulating Hormone Reflex 0.428 uIU/mL (0.465-4.68)
[2024-08-16 23:38] LABS: Total Triiodothyronine (T3) 1.31 NG/ML (0.97-1.69)
[2024-08-17] VITALS (11 sets, daily range): BP systolic 154–180; BP diastolic 60–76; PULSE 69–95; RESP 14–18; TEMP 36.8–36.9; O2SAT 96–99; BMI 25.5
[2024-08-17 00:28] LABS: Glucose Point of Care 72 mg/dl (65-105)
[2024-08-17 01:40] LABS: Glucose Point of Care 83 mg/dl (65-105)
[2024-08-17 06:01] LABS: Ammonia 25 umol/L (9-30)
[2024-08-17 06:44] LABS: Glucose Point of Care 73 mg/dl (65-105)
[2024-08-17] MEDS: LEVOTHYROXINE SODIUM 150 MCG TABLET PO (06:44)
[2024-08-17] MEDS: hydrALAZINE HCL 20 MG/ML VIAL 10 MG IV PUSH (06:51)
[2024-08-17 07:54] LABS: Glucose Point of Care 76 mg/dl (65-105)
[2024-08-17] MEDS: UMECLIDINIUM/VILANTEROL 62.5-25 MCG ELLIPTA 1 PUFF INHALATION (07:58)
[2024-08-17 08:53] LABS: Basophils Absolute Auto 0.1 K/mm3 (0.0-0.1); Eosinophils Absolute Auto 0.3 K/mm3 (0-0.3); Eosinophils Percent Auto 4.1 % (0-4.4); Hemoglobin 10.2 g/dL (12.0-15.0); Immature Granulocyte Absolute 0.02 K/mm3 (0.00-0.031); Immature Granulocyte Percent A 0.3 % (0-0.5); Lymphocytes Absolute Auto 0.93 K/mm3 (0.9-3.2); Lymphocytes Percent Auto 14.8 % (18.3-44.2); Mean Corpuscular HGB Conc 31.9 g/dl (32-36); Mean Corpuscular Hemoglobin 30.8 pg (26-34); Mean Corpuscular Volume 96.7 fl (80-100); Mean Platelet Volume 9.8 fl (7.4-10.4); Monocytes Absolute Auto 0.2 K/mm3 (0.1-0.6); Monocytes Percent Auto 3.3 % (2.6-8.5); Neutrophils Absolute Auto 4.8 K/mm3 (1.3-6.7); Neutrophils Percent Auto 76.5 % (45.5-73.1); Platelet Count Result 100 k/mm3 (150-375); Red Blood Count 3.31 M/mm3 (4.2-5.4); Red Cell Distribution Width 15.5 % (11.5-14.5); White Blood Count 6.3 K/mm3 (4.5-10.0)
[2024-08-17 08:59] LABS: Magnesium 1.7 mg/dL (1.6-2.3)
[2024-08-17] MEDS: SODIUM CHLORIDE 0.9% IV 1,000 ML 75 ML IV CONT (08:59)
[2024-08-17] MEDS: amLODIPine BESYLATE 5 MG TABLET PO (09:00)
[2024-08-17] MEDS: ENOXAPARIN 30 MG/0.3 ML SYRINGE SUB-Q (09:00)
[2024-08-17] MEDS: ISOSORBIDE DINITRATE 10 MG TABLET PO ×3 (09:00→17:35)
[2024-08-17 09:09] LABS: Alanine Aminotransferase 24 U/L (6-35); Albumin Level 3.6 g/dL (3.5-5.1); Alkaline Phosphatase 403 U/L (38-126); Anion Gap 12 mmol/L (4-12); Aspartate Amino Transferase 36 U/L (14-36); Bilirubin,Total 0.5 mg/dL (0.2-1.3); Blood Urea Nitrogen 25 mg/dL (7-17); Carbon Dioxide 11 mmol/L (22-30); Chloride 115 mmol/L (98-107); Estimated CRCL calculation 20 ml/min; Estimated Glomerular Filt Rate 29; Glucose 72 mg/dL (65-110); Sodium 138 mmol/L (137-145)
[2024-08-17 11:45] LABS: Glucose Point of Care 79 mg/dl (65-105)
--- NOTE | 2024-08-17 13:05 | PCSTNOTE ---
Please refer to the Bedside Swallow Evaluation in the EMR. Please note, silent aspiration cannot be ruled out at bedside.
--- NOTE | 2024-08-17 15:22 | PM.IMPN ---
Progress Note: A&P Assessment and Plan (1) Hypertension: Qualifiers: Hypertension type: unspecified Qualified Code(s): I10 - Essential (primary) hypertension Code(s): I10 - Essential (primary) hypertension Status: Acute (2) Advanced cirrhosis of liver: Code(s): K74.60 - Unspecified cirrhosis of liver Status: Acute (3) Chronic kidney disease, stage 3b: Code(s): N18.32 - Chronic kidney disease, stage 3b Status: Acute Assessment and Plan: AMS with lethargy, resolved to baseline patient is oriented x1 at baseline alert today and communicating but still confused CT head, cervical spine, chest x-ray hip x-ray and foot x-ray unremarkable. ST cleared for oral intake awaiting PT/OT eval for discharge recs Liver cirrhosis Ammonia is 25 this morning Continue lactulose. Anemia and thrombocytopenia Isat 14 and hb 10.2, plts 100 today monitor and threshhold for transfusion of 7 Venofer 200mg IV continue monitoring CKD Cr 1.9 which is baseline Dehydration and hypokalemia on gentle rehydration Hypertension Titrate home meds Hypothyroidism continue home meds Type 2 diabetes SSi with accucheks Diastolic CHF Titrate home meds with clinical course DVT prophylaxis on Lovenox Subjective Date/time seen: 08/17/24 15:22 Interval history: Patient mental status back to baseline now cleared for oral intake by ST Awaiting PT/OT eval for discharge disposition Review of Systems Review of Systems: Unable to do review of systems due to AMS Exam Narrative: General: lethragic and drowsy Eyes: EOMI, PERRLA ENNT External ears normal, Neck is supple, no masses, Respiratory systems: Clear to auscultation Cardiovascular S1, S2, normal rhythm, no murmur, rub, or gallop; no thrill or palpable murmurs on palpation. Gastrointestinal: soft, non-tender, and non-distended abdomen with no masses; BS present Skin: no rash, lesions, ulcerations, subcutaneous nodules or induration Musculoskeletal: no abnormality and no tenderness, normal ROM Neurologic: drowsy and lethargic Mental Status Exam: normal affect Objective Data Vital Signs Vital Signs: Vital Signs - 24 hr 08/16/24 16:00 08/16/24 20:00 08/16/24 20:00 Temperature Pulse Rate 57 L 60 Respiratory Rate Blood Pressure Pulse Oximetry Oxygen Delivery Room Air Fraction of Inspired Oxygen 08/16/24 20:50 08/17/24 00:00 08/17/24 04:00 Temperature 98.5 F Pulse Rate 62 69 73 Respiratory Rate 16 Blood Pressure 143/95 H Pulse Oximetry 96 Oxygen Delivery Fraction of Inspired Oxygen 08/17/24 06:51 08/17/24 08:00 08/17/24 07:58 Temperature Pulse Rate 79 Respiratory Rate Blood Pressure 180/70 H Pulse Oximetry 96 Oxygen Delivery Room Air Fraction of Inspired Oxygen 21 08/17/24 08:00 08/17/24 12:00 08/17/24 13:50 Temperature 98.3 F Pulse Rate 81 88 Respiratory Rate 18 Blood Pressure 178/76 H Pulse Oximetry 99 Oxygen Delivery Room Air Fraction of Inspired Oxygen 08/17/24 14:19 Temperature Pulse Rate Respiratory Rate Blood Pressure 156/60 H Pulse Oximetry Oxygen Delivery Fraction of Inspired Oxygen Intake/Output Intake/Output: Intake & Output 08/14/24 08/15/24 08/16/24 08/17/24 23:59 23:59 23:59 23:59 Intake Total 1663.3 946.7 Output Total 1300 Balance 1663.3 -353.3 Meds/Results Medications: Active Medications Generic Name Dose Route Start Last Admin Trade Name Freq PRN Reason Stop Dose Admin Amlodipine Besylate 5 mg 08/17/24 09:00 08/17/24 09:00 Amlodipine Besylate 5 Mg Tablet PO 5 mg DAILY PACO Administration Dextrose 12.5 gm 08/16/24 15:53 Dextrose 50% 25 Gm/50 Ml Syringe IV PUSH PRN PRN Hypoglycemia Protocol Enoxaparin Sodium 30 mg 08/17/24 09:00 08/17/24 09:00 Enoxaparin 30 Mg/0.3 Ml Syringe SUB-Q 3
[2024-08-17 16:29] LABS: Glucose Point of Care 97 mg/dl (65-105)
[2024-08-17 20:13] LABS: Glucose Point of Care 145 mg/dl (65-105)
[2024-08-17] MEDS: ACETAMINOPHEN 500 MG TABLET PO (21:34)
[2024-08-18] VITALS: PULSE 89
[2024-08-18 04:00] VITALS: PULSE 80
[2024-08-18 05:35] VITALS: BP 175/60; PULSE 77; RESP 12; TEMP 36.7; O2SAT 98
[2024-08-18] MEDS: LEVOTHYROXINE SODIUM 150 MCG TABLET PO (06:12)
[2024-08-18 07:08] LABS: Basophils Absolute Auto 0.1 K/mm3 (0.0-0.1); Basophils Percent Auto 0.6 % (0.2-1.2); Eosinophils Absolute Auto 0.2 K/mm3 (0-0.3); Eosinophils Percent Auto 2.4 % (0-4.4); Hematocrit 31.2 % (37.0-47.0); Immature Granulocyte Absolute 0.04 K/mm3 (0.00-0.031); Immature Granulocyte Percent A 0.5 % (0-0.5); Lymphocytes Absolute Auto 0.98 K/mm3 (0.9-3.2); Lymphocytes Percent Auto 11.6 % (18.3-44.2); Mean Corpuscular HGB Conc 32.1 g/dl (32-36); Mean Corpuscular Hemoglobin 29.7 pg (26-34); Mean Corpuscular Volume 92.6 fl (80-100); Mean Platelet Volume 9.9 fl (7.4-10.4); Monocytes Absolute Auto 0.5 K/mm3 (0.1-0.6); Monocytes Percent Auto 5.3 % (2.6-8.5); Neutrophils Absolute Auto 6.8 K/mm3 (1.3-6.7); Neutrophils Percent Auto 79.6 % (45.5-73.1); Platelet Count Result 114 k/mm3 (150-375); Red Blood Count 3.37 M/mm3 (4.2-5.4); Red Cell Distribution Width 15.3 % (11.5-14.5); White Blood Count 8.5 K/mm3 (4.5-10.0)
[2024-08-18] MEDS: UMECLIDINIUM/VILANTEROL 62.5-25 MCG ELLIPTA 1 PUFF INHALATION (07:16)
[2024-08-18 07:20] VITALS: PULSE 84; RESP 18; O2SAT 95
[2024-08-18 07:23] LABS: Alanine Aminotransferase 27 U/L (6-35); Albumin Level 3.7 g/dL (3.5-5.1); Alkaline Phosphatase 417 U/L (38-126); Anion Gap 13 mmol/L (4-12); Aspartate Amino Transferase 48 U/L (14-36); Bilirubin,Total 0.5 mg/dL (0.2-1.3); Blood Urea Nitrogen 22 mg/dL (7-17); Calcium 9.2 mg/dL (8.4-10.2); Carbon Dioxide 10 mmol/L (22-30); Chloride 114 mmol/L (98-107); Estimated CRCL calculation 21 ml/min; Estimated Glomerular Filt Rate 31; Glucose 127 mg/dL (65-110); Magnesium 1.6 mg/dL (1.6-2.3); Potassium 4.6 mmol/L (3.4-5.0); Sodium 137 mmol/L (137-145)
[2024-08-18 07:26] LABS: Glucose Point of Care 126 mg/dl (65-105)
[2024-08-18 08:00] VITALS: PULSE 79
[2024-08-18] MEDS: LACTULOSE 20 GM/30 ML UDC PO (08:13)
[2024-08-18] MEDS: lamoTRIgine 50 MG TABLET PO (08:14)
[2024-08-18] MEDS: amLODIPine BESYLATE 5 MG TABLET PO (08:14)
[2024-08-18] MEDS: ISOSORBIDE MONONITRATE 30 MG TAB.ER.24H PO (08:14)
[2024-08-18] MEDS: hydrALAZINE HCL 25 MG TABLET PO ×2 (08:14→12:12)
[2024-08-18] MEDS: ENOXAPARIN 30 MG/0.3 ML SYRINGE SUB-Q (08:15)
[2024-08-18] MEDS: lamoTRIgine 100 MG TABLET PO (08:15)
[2024-08-18] MEDS: FUROSEMIDE 20 MG TABLET PO (08:15)
[2024-08-18] MEDS: IRON SUCROSE COMPLEX 400 MG, IRON SUCROSE COMPLEX 100 MG in SODIUM CHLORIDE 0.9% IV 250 ML 78.57 MG IVPB (09:05)
--- NOTE | 2024-08-18 10:01 | PCNFU ---
Nutrition Follow-Up Complete: Inadequate energy intake related to NPO status as evidenced by diet orders Goal:Diet order Adequate po intake pt is progressing towards goal. Continue with same goal of adequate po intake: 50% or greater Pt current nutrition is Soft and bite sized level 6. Nutrition recommendation: Add Ensure compact BID for an additional 220kcals, 9g protein per shake Last recorded weight is 59.3 kg. Bowel Motility: +BM 08/18 Labs Reviewed: Hgb:10, HCT:31.2, GFR:31, BUN:22, Cr:1.6, Glu:126 Meds Noted: lovenox, lactulose Skin: WNL Additional Notes: Pt was seen by speech yesterday, bedside eval with recommendations for a soft and bite sized diet consistency. Diet is ordered, Intake is poor at this time. Will add Ensure compact BID for supplement. Encourage po intake of meals and supplements. Monitor intake, tolerance, wt, labs. Follow up in 3 days.
--- NOTE | 2024-08-18 10:28 | PM.DS ---
DS: Admitting Diagnosis Discharge Date 08/18/24 Admitting Diagnosis AMS DS: Discharge Diagnosis Discharge Diagnosis (1) Hypertension: Qualifiers: Hypertension type: unspecified Qualified Code(s): I10 - Essential (primary) hypertension Code(s): I10 - Essential (primary) hypertension Status: Acute DS: Summary Hospital Course Hospital Course: 78 yo female with PMH of Stroke, COPD, hypertension, hyperlipidemia, liver cirrhosis with history of esophageal varices, hepatic encephalopathy, CKD, type 2 diabetes, hypothyroidism, diastolic congestive heart failure, anemia presented to the ER on account of AMS. Patient was drowsy at the time of encounter and unable to provide history. according to ER provider patient was found under her bed. They noted that patient is oriented to self at baseline. Unable to do ROS. ER eval notable for BP 185/42, Temperature 96.5. labs notabel for hb 10.1, plts 79, K 5.9, NH3 34, isat 14, TIBC 308, Cr 1.9 which is baseline. Foot xray, Hip/pelvis Xray, CXR no acute changes, CT head adn cervical spine unremarkable. Patient admitted for further eval adn care. Patient was placed on IVF, and speech evaluated and cleared for oral intake and she tolerated diet adequately. however blood was elevated and patient was started on Amlodipine and futher adjusted by adding Isosorbide mononitrate and Hydralazine. Lasix and Lactulose continued. NH3 wnl. Patient returned to baseline which is oriented x1. Patient discharged back to [place]. Assessment and Plan (1) Hypertension: Qualifiers: Hypertension type: unspecified Qualified Code(s): I10 - Essential (primary) hypertension Code(s): I10 - Essential (primary) hypertension Status: Acute (2) Advanced cirrhosis of liver: Code(s): K74.60 - Unspecified cirrhosis of liver Status: Acute (3) Chronic kidney disease, stage 3b: Code(s): N18.32 - Chronic kidney disease, stage 3b Status: Acute Assessment and Plan: AMS with lethargy, resolved to baseline patient is oriented x1 at baseline alert today and communicating but still confused CT head, cervical spine, chest x-ray hip x-ray and foot x-ray unremarkable. ST cleared for oral intake awaiting PT/OT eval for discharge recs Liver cirrhosis Ammonia is 25 Continue lactulose. Anemia and thrombocytopenia Isat 14 and hb 10.2, plts 114 today monitor and threshhold for transfusion of 7 Venofer 700/1000 continue oral iron x 1 more month then stop and continue follow up with PCP. CKD Cr 1.9 which is baseline Cr 1.6 this morning continue monitoring Dehydration and hyperkalemia s/p IVF resolved Hypertension Started on and discharged on Amlodipine 5mg, isosorbide mononitrate and Hydralazine 25mg tid continue follow up with PCP for close monitoring Hypothyroidism continue home meds Type 2 diabetes continue home regimen Diastolic CHF continue Lasix and f/u with primary cardiology F/u with PCP in 3-5 days continue F/u with primary cardiology Time Spent with Patient Time attestation: Total time spent providing and/or coordinating discharge services: DS: Data Data Completed and Pending Labs on day of discharge: Labs from last 24 hours 08/18/24 08/18/24 08/17/24 07:23 06:38 20:05 WBC 8.5 RBC 3.37 L Hgb 10.0 L Hct 31.2 L MCV 92.6 MCH 29.7 MCHC 32.1 RDW 15.3 H Plt Count 114 L MPV 9.9 Immature Gran % (Auto) 0.5 Neut % (Auto) 79.6 H Lymph % (Auto) 11.6 L [place] % (Auto) 5.3 Eos % (Auto) 2.4 Baso % (Auto) 0.6 Lymph # (Auto) 0.98 [place] # (Auto) 0.5 Eos # (Auto) 0.2 Baso # (Auto) 0.1 Abs Immat Gran (auto) 0.04 H Absolute Neuts (auto) 6.8 H Absolute Nucleated RBC 0.000 Nucleated RBC % 0.0 Sodium 137 Potassium 4.6 Chloride 114 H Carbon Dioxide 10 L Anion Gap 13 H BUN 22 H Creatinine 1.60 H Es
[2024-08-18 12:15] LABS: Glucose Point of Care 135 mg/dl (65-105)
[2024-08-18 14:00] VITALS: BP 160/52; PULSE 76; RESP 16; TEMP 36.7; O2SAT 95
== END 2024-08-18 14:50 | DRG 292 ==
LOC: ANHED 22:58 → ANH3MEDSUR 08-16 13:33
PROVIDERS: Emergency Medicine; Admitting Provider General Practice; Emergency Provider Physician Assistant; PCP Family Medicine; Visit Provider Internal Medicine
DX: I13.0 Hypertensive heart and chronic kidney disease with heart failure and stage 1 through stage 4 chronic kidney disease, or unspecified chronic kidney disease (principal); I50.32 Chronic diastolic (congestive) heart failure; N18.4 Chronic kidney disease, stage 4 (severe); R41.82 Altered mental status, unspecified; K74.60 Unspecified cirrhosis of liver; D63.1 Anemia in chronic kidney disease; D69.6 Thrombocytopenia, unspecified; E86.0 Dehydration; E87.5 Hyperkalemia; E03.9 Hypothyroidism, unspecified; E11.22 Type 2 diabetes mellitus with diabetic chronic kidney disease; E78.5 Hyperlipidemia, unspecified; F32.A Depression, unspecified; I35.0 Nonrheumatic aortic (valve) stenosis; J44.9 Chronic obstructive pulmonary disease, unspecified; K21.9 Gastro-esophageal reflux disease without esophagitis; Z90.49 Acquired absence of other specified parts of digestive tract; Z90.89 Acquired absence of other organs; Z66 Do not resuscitate; Z86.73 Personal history of transient ischemic attack (TIA), and cerebral infarction without residual deficits; Z87.891 Personal history of nicotine dependence; Z79.85 Long-term (current) use of injectable non-insulin antidiabetic drugs; Z79.4 Long term (current) use of insulin
CPT/HCPCS: 36415; 70450; 71045; 72125; 73502; 73620; 80048; 80053; 80307; 81001; 82140; 82550; 82607; 82728; 82746; 82948; 83540; 83550; 83735; 84439; 84443; 84480; 85025; 85055; 85610; 85730; 92610; 93005; 94640; 96125; 96360; 97161; 97165; 99285; A9270; J0360; J0612; J1650; J1756; J1815; J7030; J7040; J7050

== ENCOUNTER 2024-08-21 21:28 | Inpatient (IN) | payer MEDICARE, MEDICAID, SELFPAY ==
--- NOTE | ~2024-08-21 | CT_ITS ---
Non-contrast CT scan of the Abdomen and Pelvis Clinical indication: Abdominal pain Technique: 2.5 mm axial scans were obtained through the abdomen and pelvis without intravenous or or al contrast. Dose reduction technique was used on this scan by utilizing automated exposure control a nd iterative reconstruction technique. The dose-length product (DLP) was 454.91 mGy-cm. COMPARISON: 11/14/2023 Findings: Images through the lung bases reveal no abnormalities. Probable punctate nonobstructing left renal stones. No right renal stone seen. No ureteral stone or h ydronephrosis on either side. Diffuse nodular contour of liver is compatible cirrhotic change. Spleen is enlarged, measuring 15.3 c m in length. The pancreas and adrenals appear normal. Cholecystectomy clips are present. There are at herosclerotic calcifications of the aorta. . There is no evidence of bowel obstruction. Small fat-containing umbilical hernia noted. Images through the pelvis were performed. There is trace abdominal pelvic ascites. Urinary bladder pr obably unremarkable. No pelvic mass seen. Status post hysterectomy. Chronic degenerative spondylitic changes of the spine are noted. Impression: Cirrhotic liver with associated splenomegaly. Probable punctate nonobstructing left renal stones. Trace abdominopelvic ascites. Reviewed, dictated and finalized at location . Impression: Cirrhotic liver with associated splenomegaly. Probable punctate nonobstructing left renal stones. Trace abdominopelvic ascites.
--- NOTE | ~2024-08-21 | US_ITS ---
EXAMINATION: US abdomen limited DATE: 08/26/2024 11:57 INDICATION: Ascites TECHNIQUE: Multiple grayscale and Doppler ultrasound images of the 4 quadrants of the abdomen were ob tained. COMPARISON: CT dated 08/21/2024 FINDINGS: In the right upper quadrant there is a small amount of fluid along the posterolateral margin of the r ight hepatic lobe which when correlated with prior CT could represent either ascites or right pleural effusion. There is an additional 2.7 x 1.3 cm collection of ascites in the left lower quadrant. Trac e amount fluid in the left upper quadrant and no evident fluid in the right lower quadrant. IMPRESSION: 1. Minimal ascites in the left lower quadrant and small amount of perihepatic ascites versus right pl eural effusion. Reviewed, dictated and finalized at location [facility]. IMPRESSION: 1. Minimal ascites in the left lower quadrant and small amount of perihepatic a scites versus right pleural effusion.
--- NOTE | ~2024-08-21 | XR_ITS ---
Portable chest x-ray Comparison: 08/15/2014 Clinical History: Fever Findings: There is minimal haziness the lung bases. No pleural effusion or pneumothorax. Cardiomedi astinal silhouette is stable. Bones and soft tissues are unremarkable. Impression: Possible minimal bibasilar pulmonary edema versus less likely infection. Correlate clinically. Reviewed, dictated and finalized at [facility]. Impression: Possible minimal bibasilar pulmonary edema versus less likely infection. Correl ate clinically.
[2024-08-21 21:29] VITALS: BP 111/45; PULSE 83; RESP 22; TEMP 36.8; O2SAT 99
--- NOTE | 2024-08-21 21:59 | ECG_ITS ---
Test Date: 2024-08-21 22:36:57 Measurements Intervals [place] Rate: 69 P: -1 CO: 164 QRS: -61 QRSD: 153 T: 29 QT: 357 QTc: 384 Interpretive Statements SINUS RHYTHM RIGHT BUNDLE BRANCH BLOCK LEFT ANTERIOR FASCICULAR BLOCK ABNORMAL ECG Compared to ECG 08/15/2024 22:49:55 NO SIGNIFICANT CHANGE Electronically Signed On 08-22-2024 06:22:23 CDT by George Moyer D.O.
[2024-08-21] MEDS: SODIUM CHLORIDE 0.9% IV 1,000 ML 999 ML IV CONT ×2 (22:40→23:43)
[2024-08-21 22:52] LABS: Basophils Percent Auto 0.5 % (0.2-1.2); Eosinophils Absolute Auto 0.3 K/mm3 (0-0.3); Eosinophils Percent Auto 4.1 % (0-4.4); Hematocrit 26.9 % (37.0-47.0); Hemoglobin 8.8 g/dL (12.0-15.0); Immature Granulocyte Absolute 0.03 K/mm3 (0.00-0.031); Immature Granulocyte Percent A 0.5 % (0-0.5); Lymphocytes Absolute Auto 0.87 K/mm3 (0.9-3.2); Lymphocytes Percent Auto 13.6 % (18.3-44.2); Mean Corpuscular HGB Conc 32.7 g/dl (32-36); Mean Corpuscular Hemoglobin 30.6 pg (26-34); Mean Corpuscular Volume 93.4 fl (80-100); Mean Platelet Volume 9.9 fl (7.4-10.4); Monocytes Absolute Auto 0.5 K/mm3 (0.1-0.6); Monocytes Percent Auto 8.3 % (2.6-8.5); Neutrophils Absolute Auto 4.7 K/mm3 (1.3-6.7); Platelet Count Result 114 k/mm3 (150-375); Red Blood Count 2.88 M/mm3 (4.2-5.4); Red Cell Distribution Width 15.6 % (11.5-14.5); White Blood Count 6.4 K/mm3 (4.5-10.0)
[2024-08-21 23:04] LABS: Alanine Aminotransferase 38 U/L (6-35); Albumin Level 3.2 g/dL (3.5-5.1); Alkaline Phosphatase 420 U/L (38-126); Anion Gap 14 mmol/L (4-12); Aspartate Amino Transferase 59 U/L (14-36); Bilirubin,Total 0.3 mg/dL (0.2-1.3); Blood Urea Nitrogen 42 mg/dL (7-17); Calcium 8.3 mg/dL (8.4-10.2); Carbon Dioxide 11 mmol/L (22-30); Chloride 109 mmol/L (98-107); Estimated CRCL calculation 11 ml/min; Estimated Glomerular Filt Rate 15; Glucose 82 mg/dL (65-110); Lipase 228 U/L (23-300); Potassium 3.9 mmol/L (3.4-5.0); Sodium 134 mmol/L (137-145)
[2024-08-21 23:05] LABS: INR 1.4
[2024-08-21 23:06] LABS: Partial Thromboplastin Time 42.3 Seconds (22.3-36.8)
[2024-08-21 23:08] VITALS: BP 105/47; PULSE 67; RESP 14; TEMP 37.3; O2SAT 98
[2024-08-21 23:20] LABS: Procalcitonin 1.1 ng/mL
[2024-08-21 23:28] LABS: Influenza A QL RT-PCR Negative (Negative); Influenza B QL RT-PCR Negative (Negative); RSV RNA, RT-PCR Negative (Negative); SARS-CoV-2 RNA PCR Negative (Negative)
[2024-08-21 23:34] LABS: Add Urine Microscopic? YES; Appearance Urine Turbid (Clear); Bacteria Urine 4+ /hpf; Bilirubin Urine Negative (Negative); Blood Urine Negative (Negative); Color Urine Yellow (Yellow); Glucose Urine UA Negative (Negative); Ketones Urine Negative (Negative); Leukocyte Esterase Ur 3+ LEU/UL (Negative); Nitrate Urine Negative (Negative); Protein Urine 2+ mg/dL (Negative); RBC Urine 0-2 /hpf (0-2); Specific Grav Ur 1.011 (1.001-1.035); Squamous Epithelial Cell Urine None Seen /hpf (Few); Urobilinogen Urine 0.2 mg/dL (<2.0); WBC Urine >100 /hpf (0-3); pH Urine 5.5 (5.0-9.0)
[2024-08-22] VITALS (7 sets, daily range): BP systolic 111–145; BP diastolic 42–59; PULSE 52–69; RESP 13–20; TEMP 36.2–37.9; O2SAT 98–100; BMI 24.5
--- NOTE | 2024-08-22 00:49 | ED.GENADULT ---
HPI - General Adult General Chief complaint: Fever Stated complaint: FEVER SINCE NOON Time Seen by Provider: 08/21/24 21:34 History of Present Illness HPI narrative: Patient is a 78-year-old female who presents emergency department with chief complaint of fever. The patient is resident of [facility] and Leah veronica of patient was recently in the hospital and was discharged to the nursing facility. The facility reported that she had a fever today was given a g of Tylenol at the facility and was sent to the emergency department for evaluation Related Data Home Medications Medication Instructions Recorded Confirmed escitalopram oxalate 5 mg tablet 5 mg PO DAILY 08/21/21 08/16/24 trazodone 100 mg tablet 200 mg PO HS 08/21/21 08/16/24 glucagon HCl 1 mg solution for 1 mg subcut Q20M PRN Hypoglycemia 02/13/22 08/16/24 injection (Glucagon (HCl) Emergency Kit) sodium chloride 0.65 % nasal spray 1 spray intranasal BID PRN Dry 02/13/22 08/16/24 aerosol (Saline Mist) Nasal Passages hydroxyzine HCl 25 mg tablet 50 mg PO Q8H PRN Itching 08/25/22 08/16/24 acetaminophen 500 mg tablet 1,000 mg PO BID PRN Pain (Scale 09/14/22 08/16/24 Score 1-3) atorvastatin 40 mg tablet 40 mg PO HS 01/22/23 08/16/24 gabapentin 600 mg tablet 200 mg PO Q8H 01/22/23 08/16/24 cholecalciferol (vitamin D3) 1,250 1,250 mcg PO WEEKLY 12/15/23 08/16/24 mcg (50,000 unit) tablet cyanocobalamin (vitamin B-12) 1,000 mcg IM [id number] 12/15/23 08/16/24 1,000 mcg/mL injection solution lamotrigine 150 mg tablet 150 mg PO Q12H 05/17/24 08/16/24 furosemide 20 mg tablet 20 mg PO DAILY 08/16/24 08/16/24 insulin glargine 100 unit/mL (3 15 unit subcut BID 08/16/24 08/16/24 mL) subcutaneous pen (Lantus Solostar U-100 Insulin) lactulose 10 gram/15 mL oral 30 g PO QID 08/16/24 08/16/24 solution vitamins A,C,U-yrrp-tqisrq 4,296 1 cap PO DAILY 08/16/24 08/16/24 mcg-226 mg-90 mg capsule (PreserVision AREDS) Allergies Allergy/AdvReac Type Severity Reaction Status Date / Time alendronate sodium Allergy Unknown Verified 08/22/24 01:35 amantadine Allergy Unknown Verified 08/22/24 01:35 benztropine Allergy Other Verified 08/22/24 01:35 chlorpromazine Allergy Unknown Verified 08/22/24 01:35 levofloxacin Allergy Unknown Verified 08/22/24 01:35 Macrolide Antibiotics Allergy Unknown Verified 08/22/24 01:35 mirtazapine Allergy Unknown Verified 08/22/24 01:35 Quinolones Allergy Unknown Verified 08/22/24 01:35 topiramate Allergy Unknown Verified 08/22/24 01:35 Review of Systems Review of Systems: A 10 system review of systems was completed on the patient and is negative except for what is stated in the HPI. Nursing and ancillary documentation was reviewed. [facility] Past Medical History Medical History Anxiety Aortic stenosis Moderate on echocardiogram in November 2021. Arthritis Asthma Bipolar disorder Cerebrovascular accident Chronic kidney disease, stage 4 (severe) Chronic obstructive pulmonary disease PFTs 06/28/2021: Moderate obstructive abnormality, moderate decreased diffusion capacity. 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 Moreno
--- NOTE | 2024-08-22 01:34 | PM.IMHP ---
H&P: HPI History of Present Illness Date/Time: 08/22/24 01:34 Chief Complaint: altered mental status Narrative: This is a 78-year-old female with past medical history significant for hypertension, insulin-dependent diabetes mellitus, hypothyroidism, COPD, recurrent urinary tract infection, stroke, chronic kidney disease, diabetic peripheral neuropathy, GERD. patient recently discharged from [facility] treated for altered mental status with lethargy and uncontrolled hypertension. [facility] is a jail resident was brought for evaluation to the emergency room due to altered mental status. At the time of my visit patient is obtunded, lethargic unable to participating history taking. Preliminary workup was significant for urinalysis with numerous WBCs present, Creatinine is 3 BUN is 42 hemoglobin is 8.8, hematocrit is 26, tested negative for influenza type A influenza type B RSV and COVID, A chest x-ray and CT of abdomen and pelvis report are pending at the time of this dictation EXAMINATION: CT brain wo con DATE: 08/15/2024 23:14 INDICATION: fall . TECHNIQUE: Computed tomography (CT) of the head was performed without intravenous contrast. The mA was adjusted according to patient size. Iterative reconstruction technique was employed. The dose-length product was 1210.67 mGy-cm. COMPARISON: 05/17/2024. FINDINGS: Mild motion artifact is present which persisted in repeated imaging attempts. No acute intracranial hemorrhage or extra-axial fluid collection. No hydrocephalus, mass, or herniation. No acute ischemic infarct. Unremarkable dural venous sinus attenuation. No acute osseous abnormality. The aerated spaces are clear. Mild atrophy and chronic white matter change. Atherosclerotic intracranial calcification. Bilateral lens replacements. Old left basal ganglia and insular infarct. Chronic pituitary enlargement. IMPRESSION: No acute intracranial process. EXAMINATION: XR chest 1V Exam Date/Time: 08/15/2024 23:18 CDT HISTORY: fall Comparison: 05/27/2024. RESULT: Lines, tubes, and devices: Cholecystectomy clips. Lungs and pleura: Senescent change, otherwise clear. Stable left hemidiaphragm elevation. Cardiomediastinal silhouette: Stable. Other: No acute osseous or upper abdominal finding. IMPRESSION: No acute cardiopulmonary process. Review of Systems Review of Systems: ROS unobtainable: Yes unobtainable due to mental status ( lethargy/obtundation) COUNT INCLUDES THE [facility] Past Medical History Medical History (Updated 08/22/24 @ 10:51 by Shivani Rebollar APRN) Anxiety Aortic stenosis Moderate on echocardiogram in November 2021. Arthritis Asthma Bipolar disorder Cerebrovascular accident Chronic kidney disease, stage 4 (severe) Chronic obstructive pulmonary disease PFTs 06/28/2021: Moderate obstructive abnormality, moderate decreased diffusion capacity. 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 Moreno History of partial hysterectomy History of thyroidectomy History of tonsillectomy Family History Family History Sibling Multiple sclerosis Father Acute myoc
--- NOTE | 2024-08-22 02:46 | ADMGEN ---
This patient, Nisha Sigala, was admitted to Medical Room 342-01. Patient/family oriented to hospital policies and general routines including ID bracelet, bed and alarms, visiting hours, pain management, procedures, bathroom and other care routines, personal items, smoking policy, room service/diet, and visiting hours. Information on how to activate the Rapid Response Team has been discussed. Patient/Family are encouraged to report perceived risks to care and to ask questions if they do not understand what they are told or what they should do.
[2024-08-22] MEDS: SODIUM CHLORIDE 0.9% IV 1,000 ML 125 ML IV CONT ×2 (03:10→17:01)
--- NOTE | 2024-08-22 08:03 | P.PNIM_ITS ---
Progress Note: A&P Assessment and Plan (1) Acute UTI: Code(s): N39.0 - Urinary tract infection, site not specified Status: Acute Assessment and Plan: 08/22/24: * UA showed turbid appearance, 2+ urine protein, 3+ leukocyte, greater than 100 urine WBC, 4+ bacteria. * Blood and urine cultures were obtained and are pending * Continue Rocephin (2) Acute kidney injury superimposed on CKD: Code(s): N17.9 - Acute kidney failure, unspecified; N18.9 - Chronic kidney disease, unspecified Status: Acute Assessment and Plan: 08/22/24: * Acute on chronic kidney disease likely due to dehydration * Patient was given 2L of normal saline while in the ED * Creatinine 3.0 on arrival * Baseline creatinine 1.6-1.9 * Creatinine today 2.7 * Continue IVF for hydration for now * Consider Nephrology consult if not improving. (3) Hypertension: Qualifiers: Hypertension type: unspecified Qualified Code(s): I10 - Essential (primary) hypertension Code(s): I10 - Essential (primary) hypertension Status: Acute Assessment and Plan: 08/22/24: * Blood pressure ranging 111/45 to 145/59 * Continue hydralazine and isosorbide (4) COPD (chronic obstructive pulmonary disease): Code(s): J44.9 - Chronic obstructive pulmonary disease, unspecified Status: Chronic Assessment and Plan: 08/22/24: * Continue Ellipta inhaler (5) TODD (generalized anxiety disorder): Code(s): F41.1 - Generalized anxiety disorder Status: Chronic Assessment and Plan: 08/22/24: * Continue Lexapro (6) Nonalcoholic steatohepatitis (ZIEGLER): Code(s): K75.81 - Nonalcoholic steatohepatitis (ZIEGLER) Status: Chronic Assessment and Plan: 08/22/24: * Continue lactulose * Ammonia level 23 today (7) Insulin dependent diabetes mellitus: Status: Acute Assessment and Plan: 08/22/24: * Blood sugars ranging 82-112 * Hgb A1C 10.4 on 05/17/2024 * Accu checks AC/HS * Low-dose SSI ordered * Lantus placed hold * Mealtime replacement ordered * hypoglycemic protocol in place * Diabetic diet ordered Time Spent With Patient Time with patient: 25 - 35 minutes Subjective Date/time seen: 08/22/24 08:03 Interval history: Interval history: This is a 78-year-old female with a significant past medical history of anxiety, aortic stenosis, asthma, bipolar disorder, CVA, chronic kidney disease stage 4, COPD, depression, diabetic peripheral neuropathy, GERD, heart failure, hyperlipidemia, hypertension, hypothyroidism, insulin-dependent diabetes mellitus, 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 Workup hospital included an abdomen pelvis CT which showed cirrhotic liver with associated splenomegaly, nonobstructing left renal stone was, trace ascites. Chest x-ray showed possible minimal bibasilar pulmonary edema. Initial labs shown a white blood cell count of 6.4, RBC 2.88, hemoglobin 8.8, platelet count 114, PTT 42.3, sodium 134, bicarb 11, anion gap 14, creatinine 3.0, EGFR 15, AST 59, ALT 38, alk-phos 420, ammonia level 23, lipase 228, procalcitonin 1.1. A UA was obtained and showed turbid appearance, 2+ urine protein, 3+ leukocyte, greater than 100 urine WBC, 4+ urine bacteria. Re spiratory panel was negative for influenza a and B, RSV, COVID. Blood and urine cultures were obtained and are pending. EKG showed sinus rhythm with a right bundle branch block, left anterior fascicular block, with a rate of 69, QTC 384. Patient was given 2 L of normal saline and Rocephin while in the ED. S
--- NOTE | 2024-08-22 08:03 | PM.IMPN ---
Progress Note: A&P Assessment and Plan (1) Acute UTI: Code(s): N39.0 - Urinary tract infection, site not specified Status: Acute Assessment and Plan: 08/22/24: UA showed turbid appearance, 2+ urine protein, 3+ leukocyte, greater than 100 urine WBC, 4+ bacteria. Blood and urine cultures were obtained and are pending Continue Rocephin (2) Acute kidney injury superimposed on CKD: Code(s): N17.9 - Acute kidney failure, unspecified; N18.9 - Chronic kidney disease, unspecified Status: Acute Assessment and Plan: 08/22/24: Acute on chronic kidney disease likely due to dehydration Patient was given 2L of normal saline while in the ED Creatinine 3.0 on arrival Baseline creatinine 1.6-1.9 Creatinine today 2.7 Continue IVF for hydration for now Consider Nephrology consult if not improving. (3) Hypertension: Qualifiers: Hypertension type: unspecified Qualified Code(s): I10 - Essential (primary) hypertension Code(s): I10 - Essential (primary) hypertension Status: Acute Assessment and Plan: 08/22/24: Blood pressure ranging 111/45 to 145/59 Continue hydralazine and isosorbide (4) COPD (chronic obstructive pulmonary disease): Code(s): J44.9 - Chronic obstructive pulmonary disease, unspecified Status: Chronic Assessment and Plan: 08/22/24: Continue Ellipta inhaler (5) TODD (generalized anxiety disorder): Code(s): F41.1 - Generalized anxiety disorder Status: Chronic Assessment and Plan: 08/22/24: Continue Lexapro (6) Nonalcoholic steatohepatitis (ZIEGLER): Code(s): K75.81 - Nonalcoholic steatohepatitis (ZIEGLER) Status: Chronic Assessment and Plan: 08/22/24: Continue lactulose Ammonia level 23 today (7) Insulin dependent diabetes mellitus: Status: Acute Assessment and Plan: 08/22/24: Blood sugars ranging 82-112 Hgb A1C 10.4 on 05/17/2024 Accu checks AC/HS Low-dose SSI ordered Lantus placed hold Mealtime replacement ordered hypoglycemic protocol in place Diabetic diet ordered Time Spent With Patient Time with patient: 25 - 35 minutes Subjective Date/time seen: 08/22/24 08:03 Interval history: Interval history: This is a 78-year-old female with a significant past medical history of anxiety, aortic stenosis, asthma, bipolar disorder, CVA, chronic kidney disease stage 4, COPD, depression, diabetic peripheral neuropathy, GERD, heart failure, hyperlipidemia, hypertension, hypothyroidism, insulin-dependent diabetes mellitus, 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 Workup hospital included an abdomen pelvis CT which showed cirrhotic liver with associated splenomegaly, nonobstructing left renal stone was, trace ascites. Chest x-ray showed possible minimal bibasilar pulmonary edema. Initial labs shown a white blood cell count of 6.4, RBC 2.88, hemoglobin 8.8, platelet count 114, PTT 42.3, sodium 134, bicarb 11, anion gap 14, creatinine 3.0, EGFR 15, AST 59, ALT 38, alk-phos 420, ammonia level 23, lipase 228, procalcitonin 1.1. A UA was obtained and showed turbid appearance, 2+ urine protein, 3+ leukocyte, greater than 100 urine WBC, 4+ urine bacteria. Respiratory panel was negative for influenza a and B, RSV, COVID. Blood and urine cultures were obtained and are pending. EKG showed sinus rhythm with a right bundle branch block, left anterior fascicular block, with a rate of 69, QTC 384. Patient was given 2 L of normal saline and Rocephin while in the ED. Subjective: Patient denies any new complaints today. She is alert oriented x1 which is her baseline. She is sitting up in chair this morning eating breakfast. Labs and imaging reviewed. Review of Systems Review of Systems: ROS unobtainable: Yes unobtainable due to mental status ( lethargy/obtundation) Exam Narrative: General: In no acute distress Head: atraumatic, no encephalopathy E
[2024-08-22 08:42] LABS: Ammonia 23 umol/L (9-30)
[2024-08-22] MEDS: ESCITALOPRAM OXALATE 5 MG TABLET PO (09:18)
[2024-08-22] MEDS: PANTOPRAZOLE 40 MG TABLET PO ×2 (09:18→21:00)
[2024-08-22] MEDS: GABAPENTIN 100 MG CAPSULE 200 MG PO ×2 (09:18→17:01)
[2024-08-22] MEDS: LEVOTHYROXINE SODIUM 150 MCG TABLET PO (09:18)
[2024-08-22] MEDS: amLODIPine BESYLATE 5 MG TABLET PO (09:20)
[2024-08-22] MEDS: hydrALAZINE HCL 25 MG TABLET PO (09:20)
[2024-08-22] MEDS: ISOSORBIDE MONONITRATE 30 MG TAB.ER.24H PO (09:20)
[2024-08-22 09:24] LABS: Glucose Point of Care 112 mg/dl (65-105)
[2024-08-22] MEDS: ACETAMINOPHEN 325 MG TABLET 650 MG PO (09:34)
[2024-08-22 11:17] LABS: Basophils Percent Auto 0.3 % (0.2-1.2); Eosinophils Percent Auto 0.3 % (0-4.4); Hematocrit 23.1 % (37.0-47.0); Hemoglobin 7.6 g/dL (12.0-15.0); Immature Granulocyte Absolute 0.05 K/mm3 (0.00-0.031); Immature Granulocyte Percent A 0.7 % (0-0.5); Lymphocytes Absolute Auto 0.41 K/mm3 (0.9-3.2); Lymphocytes Percent Auto 6.1 % (18.3-44.2); Mean Corpuscular HGB Conc 32.9 g/dl (32-36); Mean Corpuscular Hemoglobin 30.4 pg (26-34); Mean Corpuscular Volume 92.4 fl (80-100); Mean Platelet Volume 10.4 fl (7.4-10.4); Monocytes Absolute Auto 0.6 K/mm3 (0.1-0.6); Monocytes Percent Auto 8.3 % (2.6-8.5); Neutrophils Absolute Auto 5.7 K/mm3 (1.3-6.7); Neutrophils Percent Auto 84.3 % (45.5-73.1); Platelet Count Result 103 k/mm3 (150-375); Red Cell Distribution Width 15.8 % (11.5-14.5); White Blood Count 6.8 K/mm3 (4.5-10.0)
[2024-08-22 11:27] LABS: Alanine Aminotransferase 35 U/L (6-35); Albumin Level 3.2 g/dL (3.5-5.1); Alkaline Phosphatase 392 U/L (38-126); Anion Gap 12 mmol/L (4-12); Aspartate Amino Transferase 45 U/L (14-36); Bilirubin,Total 0.4 mg/dL (0.2-1.3); Blood Urea Nitrogen 39 mg/dL (7-17); Calcium 8.1 mg/dL (8.4-10.2); Carbon Dioxide 11 mmol/L (22-30); Chloride 114 mmol/L (98-107); Estimated CRCL calculation 11 ml/min; Estimated Glomerular Filt Rate 17; Glucose 112 mg/dL (65-110); Potassium 4.1 mmol/L (3.4-5.0); Sodium 137 mmol/L (137-145)
[2024-08-22 16:35] LABS: Glucose Point of Care 186 mg/dl (65-105)
[2024-08-22] MEDS: traZODone HCL 50 MG TABLET 200 MG PO (21:00)
[2024-08-22] MEDS: ATORVASTATIN 40 MG TABLET PO (21:00)
[2024-08-22] MEDS: MELATONIN 3 MG TABLET PO (21:00)
[2024-08-22] MEDS: cefTRIAXone 2 GM/NS 100 ML 2 GM/100 ML BAG IVPB (22:57)
[2024-08-23] MEDS: HYDROcodone/acetaminophen (*CRX) 5-325 MG TABLET 1 TAB PO ×2 (02:57→23:37)
[2024-08-23] MEDS: SODIUM CHLORIDE 0.9% IV 1,000 ML 125 ML IV CONT ×2 (02:57→20:23)
[2024-08-23] MEDS: LEVOTHYROXINE SODIUM 150 MCG TABLET PO (05:59)
[2024-08-23 06:00] VITALS: BP 115/48; PULSE 64; RESP 20; TEMP 36.1; O2SAT 99
[2024-08-23 06:02] LABS: Glucose Point of Care 144 mg/dl (65-105)
[2024-08-23 06:22] LABS: Basophils Percent Auto 0.4 % (0.2-1.2); Eosinophils Absolute Auto 0.2 K/mm3 (0-0.3); Eosinophils Percent Auto 2.8 % (0-4.4); Hematocrit 23.4 % (37.0-47.0); Hemoglobin 7.5 g/dL (12.0-15.0); Immature Granulocyte Absolute 0.04 K/mm3 (0.00-0.031); Immature Granulocyte Percent A 0.7 % (0-0.5); Lymphocytes Absolute Auto 0.59 K/mm3 (0.9-3.2); Mean Corpuscular HGB Conc 32.1 g/dl (32-36); Mean Corpuscular Volume 93.6 fl (80-100); Monocytes Absolute Auto 0.3 K/mm3 (0.1-0.6); Monocytes Percent Auto 6.4 % (2.6-8.5); Neutrophils Absolute Auto 4.2 K/mm3 (1.3-6.7); Neutrophils Percent Auto 78.7 % (45.5-73.1); Platelet Count Result 105 k/mm3 (150-375); Red Cell Distribution Width 15.9 % (11.5-14.5); White Blood Count 5.3 K/mm3 (4.5-10.0)
[2024-08-23 06:36] LABS: Anion Gap 9 mmol/L (4-12); Blood Urea Nitrogen 41 mg/dL (7-17); Calcium 7.2 mg/dL (8.4-10.2); Carbon Dioxide 12 mmol/L (22-30); Chloride 113 mmol/L (98-107); Estimated CRCL calculation 13 ml/min; Estimated Glomerular Filt Rate 21; Glucose 91 mg/dL (65-110); Potassium 3.7 mmol/L (3.4-5.0); Sodium 134 mmol/L (137-145)
[2024-08-23] MEDS: UMECLIDINIUM/VILANTEROL 62.5-25 MCG ELLIPTA 1 PUFF INHALATION (07:36)
[2024-08-23 07:40] VITALS: PULSE 78; RESP 18; O2SAT 94
[2024-08-23 08:39] LABS: Glucose Point of Care 96 mg/dl (65-105)
[2024-08-23 08:41] VITALS: BP 138/42
[2024-08-23] MEDS: PANTOPRAZOLE 40 MG TABLET PO ×2 (08:42→20:21)
[2024-08-23] MEDS: ISOSORBIDE MONONITRATE 30 MG TAB.ER.24H PO (08:42)
[2024-08-23] MEDS: GABAPENTIN 100 MG CAPSULE 200 MG PO ×3 (08:42→17:34)
[2024-08-23] MEDS: hydrALAZINE HCL 25 MG TABLET PO ×3 (08:42→17:34)
[2024-08-23] MEDS: amLODIPine BESYLATE 5 MG TABLET PO (08:42)
[2024-08-23] MEDS: ESCITALOPRAM OXALATE 5 MG TABLET PO (08:42)
--- NOTE | 2024-08-23 10:09 | P.PNIM_ITS ---
Progress Note: A&P Assessment and Plan (1) Acute UTI: Code(s): N39.0 - Urinary tract infection, site not specified Status: Acute Assessment and Plan: 08/22/24: * UA showed turbid appearance, 2+ urine protein, 3+ leukocyte, greater than 100 urine WBC, 4+ bacteria. * Blood and urine cultures were obtained and are pending * Continue Rocephin 08/23/24: * Blood culture is showing Gram-negative bacilli isolated in 2 out of the 4 vials on preliminary read * Rocephin increased to 2 g dosing * Urine cultures still pending (2) Acute kidney injury superimposed on CKD: Code(s): N17.9 - Acute kidney failure, unspecified; N18.9 - Chronic kidney disease, unspecified Status: Acute Assessment and Plan: 08/22/24: * Acute on chronic kidney disease likely due to dehydration * Patient was given 2L of normal saline while in the ED * Creatinine 3.0 on arrival * Baseline creatinine 1.6-1.9 * Creatinine today 2.7 * Continue IVF for hydration for now * Consider Nephrology consult if not improving. 08/23/24: * Creatinine improved and is down to 2.30 * Will continue IV fluids for hydration today and likely DC tomorrow (3) Hypertension: Qualifiers: Hypertension type: unspecified Qualified Code(s): I10 - Essential (primary) hypertension Code(s): I10 - Essential (primary) hypertension Status: Acute Assessment and Plan: 08/22/24: * Blood pressure ranging 111/45 to 145/59 * Continue hydralazine and isosorbide 08/23/24: * No change to current treatment plan (4) COPD (chronic obstructive pulmonary disease): Code(s): J44.9 - Chronic obstructive pulmonary disease, unspecified Status: Chronic Assessment and Plan: 08/22/24: * Continue Ellipta inhaler 08/23/24: * No change to current treatment plan (5) TODD (generalized anxiety disorder): Code(s): F41.1 - Generalized anxiety disorder Status: Chronic Assessment and Plan: 08/22/24: * Continue Lexapro 08/23/24: * No change to current treatment plan (6) Nonalcoholic steatohepatitis (ZIEGLER): Code(s): K75.81 - Nonalcoholic steatohepatitis (ZIEGLER) Status: Chronic Assessment and Plan: 08/22/24: * Continue lactulose * Ammonia level 23 today 08/23/24: * No change to current treatment plan (7) Insulin dependent diabetes mellitus: Status: Acute Assessment and Plan: 08/22/24: * Blood sugars ranging 82-112 * Hgb A1C 10.4 on 05/17/2024 * Accu checks AC/HS * Low-dose SSI ordered * Lantus placed hold * Mealtime replacement ordered * hypoglycemic protocol in place * Diabetic diet ordered 08/23/24: * No change to current treatment plan Time Spent With Patient Time with patient: 25 - 35 minutes Subjective Date/time seen: 08/23/24 10:09 Interval history: Interval history: This is a 78-year-old female with a significant past medical history of anxiety, aortic stenosis, asthma, bipolar disorder, CVA, chronic kidney disease stage 4, COPD, depression, diabetic peripheral neuropathy, GERD, heart failure, hyperlipidemia, hypertension, hypothyroidism, insulin-dependent diabetes mellitus, 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 Workup hospital included an abdomen pelvis CT which showed cirrhotic liver with associated splenomegaly, nonobstructing left renal stone was, trace ascites. Chest x-ray showed possible minimal bibasilar pulmonary edema. Initial labs shown a white blood cell count of 6.4, RBC 2.88
--- NOTE | 2024-08-23 10:09 | PM.IMPN ---
Progress Note: A&P Assessment and Plan (1) Acute UTI: Code(s): N39.0 - Urinary tract infection, site not specified Status: Acute Assessment and Plan: 08/22/24: UA showed turbid appearance, 2+ urine protein, 3+ leukocyte, greater than 100 urine WBC, 4+ bacteria. Blood and urine cultures were obtained and are pending Continue Rocephin 08/23/24: Blood culture is showing Gram-negative bacilli isolated in 2 out of the 4 vials on preliminary read Rocephin increased to 2 g dosing Urine cultures still pending (2) Acute kidney injury superimposed on CKD: Code(s): N17.9 - Acute kidney failure, unspecified; N18.9 - Chronic kidney disease, unspecified Status: Acute Assessment and Plan: 08/22/24: Acute on chronic kidney disease likely due to dehydration Patient was given 2L of normal saline while in the ED Creatinine 3.0 on arrival Baseline creatinine 1.6-1.9 Creatinine today 2.7 Continue IVF for hydration for now Consider Nephrology consult if not improving. 08/23/24: Creatinine improved and is down to 2.30 Will continue IV fluids for hydration today and likely DC tomorrow (3) Hypertension: Qualifiers: Hypertension type: unspecified Qualified Code(s): I10 - Essential (primary) hypertension Code(s): I10 - Essential (primary) hypertension Status: Acute Assessment and Plan: 08/22/24: Blood pressure ranging 111/45 to 145/59 Continue hydralazine and isosorbide 08/23/24: No change to current treatment plan (4) COPD (chronic obstructive pulmonary disease): Code(s): J44.9 - Chronic obstructive pulmonary disease, unspecified Status: Chronic Assessment and Plan: 08/22/24: Continue Ellipta inhaler 08/23/24: No change to current treatment plan (5) TODD (generalized anxiety disorder): Code(s): F41.1 - Generalized anxiety disorder Status: Chronic Assessment and Plan: 08/22/24: Continue Lexapro 08/23/24: No change to current treatment plan (6) Nonalcoholic steatohepatitis (ZIEGLER): Code(s): K75.81 - Nonalcoholic steatohepatitis (ZIEGLER) Status: Chronic Assessment and Plan: 08/22/24: Continue lactulose Ammonia level 23 today 08/23/24: No change to current treatment plan (7) Insulin dependent diabetes mellitus: Status: Acute Assessment and Plan: 08/22/24: Blood sugars ranging 82-112 Hgb A1C 10.4 on 05/17/2024 Accu checks AC/HS Low-dose SSI ordered Lantus placed hold Mealtime replacement ordered hypoglycemic protocol in place Diabetic diet ordered 08/23/24: No change to current treatment plan Time Spent With Patient Time with patient: 25 - 35 minutes Subjective Date/time seen: 08/23/24 10:09 Interval history: Interval history: This is a 78-year-old female with a significant past medical history of anxiety, aortic stenosis, asthma, bipolar disorder, CVA, chronic kidney disease stage 4, COPD, depression, diabetic peripheral neuropathy, GERD, heart failure, hyperlipidemia, hypertension, hypothyroidism, insulin-dependent diabetes mellitus, 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 Workup hospital included an abdomen pelvis CT which showed cirrhotic liver with associated splenomegaly, nonobstructing left renal stone was, trace ascites. Chest x-ray showed possible minimal bibasilar pulmonary edema. Initial labs shown a white blood cell count of 6.4, RBC 2.88, hemoglobin 8.8, platelet count 114, PTT 42.3, sodium 134, bicarb 11, anion gap 14, creatinine 3.0, EGFR 15, AST 59, ALT 38, alk-phos 420, ammonia level 23, lipase 228, procalcitonin 1.1. A UA was obtained and showed turbid appearance, 2+ urine protein, 3+ leukocyte, greater than 100 urine WBC, 4+ urine bacteria. Respiratory panel was negative for influenza a and B, RSV, COVID. Blood and urine cultures were obtained and are pending. EKG showed sinus rhythm with a right bundle
[2024-08-23 12:14] LABS: Glucose Point of Care 168 mg/dl (65-105)
[2024-08-23] MEDS: ACETAMINOPHEN 325 MG TABLET 650 MG PO (13:13)
[2024-08-23 14:00] VITALS: BP 154/50; PULSE 83; RESP 20; TEMP 37.1; O2SAT 100
[2024-08-23 16:44] LABS: Glucose Point of Care 178 mg/dl (65-105)
[2024-08-23] MEDS: ATORVASTATIN 40 MG TABLET PO (20:21)
[2024-08-23] MEDS: traZODone HCL 50 MG TABLET 200 MG PO (20:21)
[2024-08-23] MEDS: MELATONIN 3 MG TABLET PO (20:21)
[2024-08-23 22:00] VITALS: BP 130/53; PULSE 72; RESP 20; TEMP 36.2; O2SAT 99
[2024-08-23] MEDS: cefTRIAXone 2 GM/NS 100 ML 2 GM/100 ML BAG IVPB (23:35)
[2024-08-24] MEDS: LEVOTHYROXINE SODIUM 150 MCG TABLET PO (05:17)
[2024-08-24] MEDS: SODIUM CHLORIDE 0.9% IV 1,000 ML 125 ML IV CONT (05:17)
[2024-08-24] MEDS: ACETAMINOPHEN 325 MG TABLET 650 MG PO (05:31)
[2024-08-24 05:35] LABS: Basophils Percent Auto 0.5 % (0.2-1.2); Eosinophils Absolute Auto 0.2 K/mm3 (0-0.3); Eosinophils Percent Auto 4.2 % (0-4.4); Hematocrit 25.8 % (37.0-47.0); Hemoglobin 8.3 g/dL (12.0-15.0); Immature Granulocyte Absolute 0.14 K/mm3 (0.00-0.031); Immature Granulocyte Percent A 3.2 % (0-0.5); Lymphocytes Percent Auto 13.9 % (18.3-44.2); Mean Corpuscular HGB Conc 32.2 g/dl (32-36); Mean Corpuscular Hemoglobin 30.1 pg (26-34); Mean Corpuscular Volume 93.5 fl (80-100); Mean Platelet Volume 10.2 fl (7.4-10.4); Monocytes Absolute Auto 0.4 K/mm3 (0.1-0.6); Monocytes Percent Auto 8.1 % (2.6-8.5); Neutrophils Percent Auto 70.1 % (45.5-73.1); Platelet Count Result 118 k/mm3 (150-375); Red Blood Count 2.76 M/mm3 (4.2-5.4); Red Cell Distribution Width 15.9 % (11.5-14.5); White Blood Count 4.3 K/mm3 (4.5-10.0)
[2024-08-24 05:36] LABS: Glucose Point of Care 127 mg/dl (65-105)
[2024-08-24 05:44] LABS: Potassium 3.8 mmol/L (3.4-5.0)
[2024-08-24 05:49] LABS: Albumin Level 2.8 g/dL (3.5-5.1); Anion Gap 42 mmol/L (4-12); Blood Urea Nitrogen 37 mg/dL (7-17); Carbon Dioxide 12 mmol/L (22-30); Chloride 75 mmol/L (98-107); Sodium 129 mmol/L (137-145)
[2024-08-24 05:50] LABS: Alanine Aminotransferase 25 U/L (6-35); Alkaline Phosphatase 291 U/L (38-126); Aspartate Amino Transferase 31 U/L (14-36); Bilirubin,Total 0.2 mg/dL (0.2-1.3); Calcium 7.3 mg/dL (8.4-10.2); Estimated CRCL calculation 15 ml/min; Estimated Glomerular Filt Rate 24; Glucose 104 mg/dL (65-110)
[2024-08-24 06:00] VITALS: BP 130/50; PULSE 74; RESP 20; TEMP 36.4; O2SAT 98
[2024-08-24] MEDS: UMECLIDINIUM/VILANTEROL 62.5-25 MCG ELLIPTA 1 PUFF INHALATION (07:24)
[2024-08-24 07:25] VITALS: PULSE 75; RESP 20; O2SAT 96
[2024-08-24 08:23] LABS: Glucose Point of Care 129 mg/dl (65-105)
[2024-08-24] MEDS: amLODIPine BESYLATE 5 MG TABLET PO (08:28)
[2024-08-24] MEDS: hydrALAZINE HCL 25 MG TABLET PO ×3 (08:28→17:30)
[2024-08-24] MEDS: ESCITALOPRAM OXALATE 5 MG TABLET PO (08:28)
[2024-08-24] MEDS: GABAPENTIN 100 MG CAPSULE 200 MG PO ×3 (08:29→17:29)
[2024-08-24] MEDS: PANTOPRAZOLE 40 MG TABLET PO ×2 (08:29→21:10)
[2024-08-24] MEDS: ISOSORBIDE MONONITRATE 30 MG TAB.ER.24H PO (08:29)
[2024-08-24] MEDS: HYDROcodone/acetaminophen (*CRX) 5-325 MG TABLET 1 TAB PO ×2 (08:31→13:56)
[2024-08-24 12:27] LABS: Glucose Point of Care 157 mg/dl (65-105)
[2024-08-24 13:51] VITALS: BP 143/49; PULSE 77; RESP 18; TEMP 36.4; O2SAT 96
--- NOTE | 2024-08-24 15:06 | PM.IMPN ---
Progress Note: A&P Assessment and Plan (1) Acute UTI: Code(s): N39.0 - Urinary tract infection, site not specified Status: Acute Assessment and Plan: - decrease NS @ 75 ml/hr - change antibiotics to oral Aumentin for 10 days. - Blood cultures and urine culture positive for Escherichia coli (2) Acute kidney injury: Code(s): N17.9 - Acute kidney failure, unspecified Status: Acute Assessment and Plan: - NS @ 75 ml/hr - daily CMP. (3) Acute kidney injury superimposed on CKD: Code(s): N17.9 - Acute kidney failure, unspecified; N18.9 - Chronic kidney disease, unspecified Status: Acute Assessment and Plan: - hold furosemide - BUN 37, Creatinine 2.00, GFR 24 - NS @ 75 cc/hr - Baseline Creatinine 1.6-1.9 (4) Hypertension: Qualifiers: Hypertension type: unspecified Qualified Code(s): I10 - Essential (primary) hypertension Code(s): I10 - Essential (primary) hypertension Status: Acute Assessment and Plan: - Blood pressure 143/49 - Continue Amlodipine and hydralazine. (5) Elevated alkaline phosphatase level: Code(s): R74.8 - Abnormal levels of other serum enzymes Status: Acute Assessment and Plan: -08/21/24: 420 -08/22/24: 392 -08/24/24: 291 (6) COPD (chronic obstructive pulmonary disease): Code(s): J44.9 - Chronic obstructive pulmonary disease, unspecified Status: Chronic Assessment and Plan: - continue inhalers. (7) Insulin dependent diabetes mellitus: Status: Acute Assessment and Plan: - continue insulin - monitor blood sugars. (8) Right leg pain: Code(s): M79.604 - Pain in right leg Status: Chronic Assessment and Plan: - Tylenol as needed for pain. Subjective Date/time seen: 08/24/24 15:06 Interval history: Patient denies chest pain, palpitations, headache, dizziness, nausea, vomiting, or burning with urination. Patient reports a good appetite. Patient reports chronic pain in her right leg that is a 5 , pain is frequent, and aching. Review of Systems Review of Systems: All systems reviewed & are unremarkable except as noted in HPI and below Exam Const: General: comfortable and no acute distress Eyes: Sclera: sclerae normal Resp: Auscultation: clear to auscultation bilaterally Cardio: Rate: regular rate Rhythm: regular rhythm GI: GI Palp: Yes Soft to palpation Auscultation: normal bowel sounds : Other: voiding without difficulty Skin: General skin exam: no rashes or lesions noted Neuro: Speech: normal speech Other: A&OX4. Lip smacking and tremors noted. Psych: Affect: normal affect Objective Data Vital Signs Vital Signs: Vital Signs - 24 hr 08/23/24 20:00 08/23/24 22:00 08/24/24 07:25 Temperature 97.1 F L Pulse Rate 72 Respiratory Rate 20 Blood Pressure 130/53 L Pulse Oximetry 99 96 Oxygen Delivery Room Air Room Air 08/24/24 07:25 08/24/24 06:00 08/24/24 08:29 Temperature 97.5 F L Pulse Rate 75 74 Respiratory Rate 20 20 Blood Pressure 130/50 L Pulse Oximetry 98 Oxygen Delivery Room Air 08/24/24 13:51 Temperature 97.5 F L Pulse Rate 77 Respiratory Rate 18 Blood Pressure 143/49 H Pulse Oximetry 96 Oxygen Delivery Intake/Output Intake/Output: Intake & Output 08/21/24 08/22/24 08/23/24 08/24/24 23:59 23:59 23:59 23:59 Intake Total 1000 2864 3220 1780 Output Total 300 Balance 700 2864 3220 1780 Meds/Results Medications: Active Medications Generic Name Dose Route Start Last Admin Trade Name Freq PRN Reason Stop Dose Admin Acetaminophen 650 mg 08/22/24 01:44 08/24/24 05:31 Acetaminophen 325 Mg Tablet PO 650 mg Q4H PRN Administration Mild Pain (1-3) or Fever Hydrocodone Bitart/Acetaminophen 1 tab 08/22/24 07:56 08/24/24 13:56 Hydrocodone/Acetaminophen (*Crx) 5-325 Mg Tablet PO 1 tab Q4H PRN Administratio
[2024-08-24 17:03] LABS: Glucose Point of Care 150 mg/dl (65-105)
[2024-08-24] MEDS: MELATONIN 3 MG TABLET PO (21:10)
[2024-08-24] MEDS: AMOXICILLIN/CLAVULANATE K 500-125 MG TAB 1 TABLET PO (21:10)
[2024-08-24] MEDS: ATORVASTATIN 40 MG TABLET PO (21:10)
[2024-08-24] MEDS: traZODone HCL 50 MG TABLET 200 MG PO (21:10)
[2024-08-24 21:34] VITALS: BP 132/43; PULSE 79; RESP 20; TEMP 36.8; O2SAT 100
[2024-08-25] MEDS: HYDROcodone/acetaminophen (*CRX) 5-325 MG TABLET 1 TAB PO (00:03)
[2024-08-25 03:25] LABS: Glucose Point of Care 110 mg/dl (65-105)
[2024-08-25 06:00] VITALS: BP 137/49; PULSE 73; RESP 20; TEMP 36.7; O2SAT 98
[2024-08-25] MEDS: AMOXICILLIN/CLAVULANATE K 500-125 MG TAB 1 TABLET PO ×3 (06:04→21:47)
[2024-08-25] MEDS: LEVOTHYROXINE SODIUM 150 MCG TABLET PO (06:04)
[2024-08-25] MEDS: SODIUM CHLORIDE 0.9% IV 1,000 ML 75 ML IV CONT ×2 (06:10→09:23)
[2024-08-25 06:25] LABS: Basophils Percent Auto 0.3 % (0.2-1.2); Eosinophils Absolute Auto 0.2 K/mm3 (0-0.3); Eosinophils Percent Auto 4.6 % (0-4.4); Hematocrit 23.1 % (37.0-47.0); Hemoglobin 7.4 g/dL (12.0-15.0); Immature Granulocyte Absolute 0.14 K/mm3 (0.00-0.031); Immature Granulocyte Percent A 3.6 % (0-0.5); Lymphocytes Absolute Auto 0.63 K/mm3 (0.9-3.2); Lymphocytes Percent Auto 16.2 % (18.3-44.2); Mean Corpuscular Hemoglobin 30.1 pg (26-34); Mean Corpuscular Volume 93.9 fl (80-100); Mean Platelet Volume 10.3 fl (7.4-10.4); Monocytes Absolute Auto 0.4 K/mm3 (0.1-0.6); Neutrophils Absolute Auto 2.6 K/mm3 (1.3-6.7); Neutrophils Percent Auto 65.3 % (45.5-73.1); Nucleated Red Blood Cells Perc 0.5 % (0.0-0.2); Platelet Count Result 116 k/mm3 (150-375); Red Blood Count 2.46 M/mm3 (4.2-5.4); Red Cell Distribution Width 15.8 % (11.5-14.5); White Blood Count 3.9 K/mm3 (4.5-10.0)
[2024-08-25 06:38] LABS: Alanine Aminotransferase 24 U/L (6-35); Anion Gap 9 mmol/L (4-12); Aspartate Amino Transferase 31 U/L (14-36); Bilirubin,Total 0.2 mg/dL (0.2-1.3); Blood Urea Nitrogen 31 mg/dL (7-17); Calcium 7.6 mg/dL (8.4-10.2); Carbon Dioxide 12 mmol/L (22-30); Chloride 114 mmol/L (98-107); Estimated CRCL calculation 17 ml/min; Estimated Glomerular Filt Rate 27; Glucose 87 mg/dL (65-110); Potassium 4.1 mmol/L (3.4-5.0); Sodium 135 mmol/L (137-145)
[2024-08-25 06:39] LABS: Albumin Level 2.6 g/dL (3.5-5.1); Alkaline Phosphatase 306 U/L (38-126)
[2024-08-25] MEDS: UMECLIDINIUM/VILANTEROL 62.5-25 MCG ELLIPTA 1 PUFF INHALATION (07:56)
[2024-08-25 08:58] LABS: Glucose Point of Care 104 mg/dl (65-105)
[2024-08-25] MEDS: ISOSORBIDE MONONITRATE 30 MG TAB.ER.24H PO (09:22)
[2024-08-25] MEDS: hydrALAZINE HCL 25 MG TABLET PO ×3 (09:23→17:35)
[2024-08-25] MEDS: amLODIPine BESYLATE 5 MG TABLET PO (09:23)
[2024-08-25] MEDS: PANTOPRAZOLE 40 MG TABLET PO ×2 (09:23→21:47)
[2024-08-25] MEDS: ESCITALOPRAM OXALATE 5 MG TABLET PO (09:23)
[2024-08-25] MEDS: GABAPENTIN 100 MG CAPSULE 200 MG PO ×3 (09:23→17:35)
[2024-08-25 12:09] LABS: Basophils Percent Auto 0.4 % (0.2-1.2); Eosinophils Absolute Auto 0.2 K/mm3 (0-0.3); Eosinophils Percent Auto 4.1 % (0-4.4); Hematocrit 25.5 % (37.0-47.0); Immature Granulocyte Percent A 1.9 % (0-0.5); Lymphocytes Absolute Auto 0.51 K/mm3 (0.9-3.2); Lymphocytes Percent Auto 9.9 % (18.3-44.2); Mean Corpuscular HGB Conc 31.4 g/dl (32-36); Mean Corpuscular Hemoglobin 29.9 pg (26-34); Mean Corpuscular Volume 95.1 fl (80-100); Mean Platelet Volume 10.7 fl (7.4-10.4); Monocytes Absolute Auto 0.4 K/mm3 (0.1-0.6); Monocytes Percent Auto 8.1 % (2.6-8.5); Neutrophils Absolute Auto 3.9 K/mm3 (1.3-6.7); Neutrophils Percent Auto 75.6 % (45.5-73.1); Platelet Count Result 123 k/mm3 (150-375); Red Blood Count 2.68 M/mm3 (4.2-5.4); Red Cell Distribution Width 15.9 % (11.5-14.5); White Blood Count 5.2 K/mm3 (4.5-10.0)
[2024-08-25 12:41] LABS: Glucose Point of Care 129 mg/dl (65-105)
[2024-08-25] MEDS: SALIVA SUBSTITUTE COMBO RINSE 237 ML BOTTLE 15 ML PO (13:09)
[2024-08-25 14:44] VITALS: BP 144/54; PULSE 79; RESP 18; TEMP 36.8; O2SAT 98
--- NOTE | 2024-08-25 15:18 | PM.IMPN ---
Progress Note: A&P Assessment and Plan (1) Acute UTI: Code(s): N39.0 - Urinary tract infection, site not specified Status: Acute Assessment and Plan: - Patient with good oral intake, will stop IV fluids. - antibiotics Augmentin oral for 10 days. - Blood cultures and urine culture positive for Escherichia coli (2) Acute kidney injury: Code(s): N17.9 - Acute kidney failure, unspecified Status: Acute Assessment and Plan: - BUN 31, Creatinine 1.80, GFR 27 - Improving - daily CMP. (3) Acute kidney injury superimposed on CKD: Code(s): N17.9 - Acute kidney failure, unspecified; N18.9 - Chronic kidney disease, unspecified Status: Acute Assessment and Plan: - hold furosemide - BUN 31, Creatinine 1.80, GFR 27 - Baseline Creatinine 1.6-1.9 (4) Hypertension: Qualifiers: Hypertension type: unspecified Qualified Code(s): I10 - Essential (primary) hypertension Code(s): I10 - Essential (primary) hypertension Status: Acute Assessment and Plan: - Blood pressure 137/49 - Continue Amlodipine and hydralazine. (5) Elevated alkaline phosphatase level: Code(s): R74.8 - Abnormal levels of other serum enzymes Status: Acute Assessment and Plan: -08/21/24: 420 -08/22/24: 392 -08/24/24: 291 -08/25/24: 306 (6) COPD (chronic obstructive pulmonary disease): Code(s): J44.9 - Chronic obstructive pulmonary disease, unspecified Status: Chronic Assessment and Plan: - continue inhalers. (7) Insulin dependent diabetes mellitus: Status: Acute Assessment and Plan: - continue insulin - monitor blood sugars. (8) Right leg pain: Code(s): M79.604 - Pain in right leg Status: Chronic Assessment and Plan: - Tylenol as needed for pain. (9) Nonalcoholic steatohepatitis (ZIEGLER): Code(s): K75.81 - Nonalcoholic steatohepatitis (ZIEGLER) Status: Chronic Assessment and Plan: - monitor patient and labs as needed. (10) Dry mouth: Code(s): R68.2 - Dry mouth, unspecified Status: Acute Assessment and Plan: - Add saliva substitute combo 15 ml qid PRN. Subjective Date/time seen: 08/25/24 15:18 Interval history: Patient denies chest pain, palpitations, headache, dizziness, nausea, vomiting, or burning with urination. Patient reports a good appetite. Reports that abdomen feels a little more bigger. Last bowel movement today. Patient reports chronic pain in her right leg that is a 6 , pain is frequent, and aching. Patient reports that her mouth feels dry. Review of Systems Review of Systems: All systems reviewed & are unremarkable except as noted in HPI and below Exam Const: General: comfortable and no acute distress Eyes: Sclera: sclerae normal Resp: Auscultation: clear to auscultation bilaterally Cardio: Rate: regular rate Rhythm: regular rhythm GI: Inspection: distended GI Palp: Yes Soft to palpation, No Tenderness to palpation present (GI) and No Guarding due to palpation present (GI) Auscultation: normal bowel sounds : Other: voiding without difficulty Skin: General skin exam: no rashes or lesions noted Neuro: Speech: normal speech Other: A&Ox4. Lip smacking and tremors noted. Psych: Affect: normal affect Objective Data Vital Signs Vital Signs: Vital Signs - 24 hr 08/24/24 21:34 08/25/24 06:00 08/25/24 14:44 Temperature 98.2 F 98.1 F 98.3 F Pulse Rate 79 73 79 Respiratory Rate 20 20 18 Blood Pressure 132/43 L 137/49 L 144/54 H Pulse Oximetry 100 98 98 Intake/Output Intake/Output: Intake & Output 08/22/24 08/23/24 08/24/24 08/25/24 23:59 23:59 23:59 23:59 Intake Total 2864 3220 3320 851.3 Balance 2864 3220 3320 851.3 Meds/Results Medications: Active Medications Generic Name Dose Route Start Last Admin Trade Name Freq PRN Reason Stop Dose Admin Acetaminophen 650 mg 08/22/24
[2024-08-25 17:46] LABS: Glucose Point of Care 132 mg/dl (65-105)
[2024-08-25 19:52] VITALS: BP 139/60; PULSE 78; RESP 18; TEMP 37.1; O2SAT 97
[2024-08-25] MEDS: traZODone HCL 50 MG TABLET 200 MG PO (21:46)
[2024-08-25] MEDS: ATORVASTATIN 40 MG TABLET PO (21:47)
[2024-08-25] MEDS: MELATONIN 3 MG TABLET PO (21:47)
[2024-08-25 22:40] LABS: Glucose Point of Care 138 mg/dl (65-105)
[2024-08-26] MEDS: HYDROcodone/acetaminophen (*CRX) 5-325 MG TABLET 1 TAB PO (00:06)
[2024-08-26 06:04] LABS: Basophils Percent Auto 0.7 % (0.2-1.2); Eosinophils Absolute Auto 0.3 K/mm3 (0-0.3); Eosinophils Percent Auto 6.1 % (0-4.4); Hemoglobin 7.7 g/dL (12.0-15.0); Immature Granulocyte Absolute 0.18 K/mm3 (0.00-0.031); Immature Granulocyte Percent A 4.4 % (0-0.5); Lymphocytes Absolute Auto 0.71 K/mm3 (0.9-3.2); Lymphocytes Percent Auto 17.4 % (18.3-44.2); Mean Corpuscular HGB Conc 32.1 g/dl (32-36); Mean Corpuscular Hemoglobin 29.8 pg (26-34); Mean Platelet Volume 10.1 fl (7.4-10.4); Monocytes Absolute Auto 0.4 K/mm3 (0.1-0.6); Monocytes Percent Auto 8.8 % (2.6-8.5); Neutrophils Absolute Auto 2.5 K/mm3 (1.3-6.7); Neutrophils Percent Auto 62.6 % (45.5-73.1); Nucleated Red Blood Cells Perc 0.7 % (0.0-0.2); Platelet Count Result 125 k/mm3 (150-375); Red Blood Count 2.58 M/mm3 (4.2-5.4); Red Cell Distribution Width 15.8 % (11.5-14.5); White Blood Count 4.1 K/mm3 (4.5-10.0)
[2024-08-26] MEDS: LEVOTHYROXINE SODIUM 150 MCG TABLET PO (06:14)
[2024-08-26] MEDS: AMOXICILLIN/CLAVULANATE K 500-125 MG TAB 1 TABLET PO ×2 (06:14→14:10)
[2024-08-26 06:15] LABS: Alanine Aminotransferase 23 U/L (6-35); Albumin Level 2.5 g/dL (3.5-5.1); Alkaline Phosphatase 333 U/L (38-126); Anion Gap 9 mmol/L (4-12); Aspartate Amino Transferase 31 U/L (14-36); Bilirubin,Total 0.2 mg/dL (0.2-1.3); Blood Urea Nitrogen 25 mg/dL (7-17); Carbon Dioxide 13 mmol/L (22-30); Chloride 115 mmol/L (98-107); Estimated CRCL calculation 18 ml/min; Estimated Glomerular Filt Rate 29; Glucose 87 mg/dL (65-110); Potassium 4.2 mmol/L (3.4-5.0); Sodium 137 mmol/L (137-145)
[2024-08-26 06:50] VITALS: BP 143/51; PULSE 63; RESP 16; TEMP 36.4; O2SAT 98
[2024-08-26 08:05] LABS: Glucose Point of Care 98 mg/dl (65-105)
[2024-08-26] MEDS: UMECLIDINIUM/VILANTEROL 62.5-25 MCG ELLIPTA 1 PUFF INHALATION (08:14)
[2024-08-26 08:15] VITALS: O2SAT 98
[2024-08-26] MEDS: hydrALAZINE HCL 25 MG TABLET PO ×3 (09:18→17:21)
[2024-08-26] MEDS: GABAPENTIN 100 MG CAPSULE 200 MG PO ×3 (09:18→17:21)
[2024-08-26] MEDS: ESCITALOPRAM OXALATE 5 MG TABLET PO (09:19)
[2024-08-26] MEDS: PANTOPRAZOLE 40 MG TABLET PO (09:19)
[2024-08-26] MEDS: amLODIPine BESYLATE 5 MG TABLET PO (09:19)
[2024-08-26] MEDS: ISOSORBIDE MONONITRATE 30 MG TAB.ER.24H PO (09:19)
[2024-08-26 12:18] LABS: Glucose Point of Care 155 mg/dl (65-105)
[2024-08-26 14:00] VITALS: BP 128/62; PULSE 69; RESP 18; TEMP 36.4; O2SAT 96
--- NOTE | 2024-08-26 14:13 | PM.DS ---
DS: Admitting Diagnosis Discharge Date 08/26/2024 Admitting Diagnosis fever DS: Discharge Diagnosis Discharge Diagnosis (1) Acute UTI: Code(s): N39.0 - Urinary tract infection, site not specified Status: Acute (2) Acute kidney injury superimposed on CKD: Code(s): N17.9 - Acute kidney failure, unspecified; N18.9 - Chronic kidney disease, unspecified Status: Acute (3) Right leg pain: Code(s): M79.604 - Pain in right leg Status: Chronic (4) Elevated alkaline phosphatase level: Code(s): R74.8 - Abnormal levels of other serum enzymes Status: Acute (5) COPD (chronic obstructive pulmonary disease): Code(s): J44.9 - Chronic obstructive pulmonary disease, unspecified Status: Chronic (6) Nonalcoholic steatohepatitis (ZIEGLER): Code(s): K75.81 - Nonalcoholic steatohepatitis (ZIEGLER) Status: Chronic DS: Summary Hospital Course Hospital Course: Workup hospital included an abdomen pelvis CT which showed cirrhotic liver with associated splenomegaly, nonobstructing left renal stone was, trace ascites. Chest x-ray showed possible minimal bibasilar pulmonary edema. Initial labs shown a white blood cell count of 6.4, RBC 2.88, hemoglobin 8.8, platelet count 114, PTT 42.3, sodium 134, bicarb 11, anion gap 14, creatinine 3.0, EGFR 15, AST 59, ALT 38, alk-phos 420, ammonia level 23, lipase 228, procalcitonin 1.1. A UA was obtained and showed turbid appearance, 2+ urine protein, 3+ leukocyte, greater than 100 urine WBC, 4+ urine bacteria. Respiratory panel was negative for influenza a and B, RSV, COVID. EKG showed sinus rhythm with a right bundle branch block, left anterior fascicular block, with a rate of 69, QTC 384. Patient was given 2 L of normal saline and Rocephin while in the ED. Blood cultures and urine culture positive for Escherichia coli. Patient responded well to antibiotics and fluids, patient transitioned to oral antibiotics. 08/26/24 abdominal ultrasound showed Minimal ascites in the left lower quadrant and small amount of perihepatic ascites versus right pleural effusion, patient does not need to be tapped. 08/26/24 Creatinine back to baseline at 1.70. Status at Discharge Functional status at discharge: uses cane/walker Overall status at discharge: patient is not back to baseline Time Spent with Patient Time attestation: Total time spent providing and/or coordinating discharge services: Time spent: Greater than 30 minutes Exam Const: General: comfortable and no acute distress Eyes: Sclera: sclerae normal Resp: Auscultation: clear to auscultation bilaterally Cardio: Rate: regular rate Rhythm: regular rhythm GI: Inspection: distended GI Palp: Yes Soft to palpation, No Tenderness to palpation present (GI) and No Guarding due to palpation present (GI) Auscultation: normal bowel sounds : Other: Voiding without difficulty. Skin: General skin exam: no rashes or lesions noted Neuro: Other: A&Ox4. Lip smacking and tremors noted. Extrem: General: normal to inspection Psych: Affect: normal affect DS: Data Data Completed and Pending Labs on day of discharge: Labs from last 24 hours 08/26/24 08/26/24 08/26/24 12:14 07:40 05:38 WBC 4.1 L RBC 2.58 L Hgb 7.7 L Hct 24.0 L MCV 93.0 MCH 29.8 MCHC 32.1 RDW 15.8 H Plt Count 125 L MPV 10.1 Immature Gran % (Auto) 4.4 H Neut % (Auto) 62.6 Lymph % (Auto) 17.4 L [place] % (Auto) 8.8 H Eos % (Auto) 6.1 H Baso % (Auto) 0.7 Lymph # (Auto) 0.71 L [place] # (Auto) 0.4 Eos # (Auto) 0.3 Baso # (Auto) 0.0 Abs Immat Gran (auto) 0.18 H Absolute Neuts (auto) 2.5 Absolute Nucleated RBC 0.030 H Nucleated RBC % 0.7 H Sodium 137 Potassium 4.2 Chloride 115 H Carbon Dioxide 13 L Anion Gap 9 BUN 25 H Creatinine 1.70 H Estim Creat Clear Calc 18 Estimated GFR 29 L Glucose 87 POC Capillary Glucos
[2024-08-26 16:49] LABS: Glucose Point of Care 128 mg/dl (65-105)
[2024-08-26 17:22] LABS: SARS-CoV-2 RNA PCR Negative (Negative)
== END 2024-08-26 19:00 | DRG 690 ==
LOC: ANHED 08-22 00:52 → ANH3MED 08-22 02:11
PROVIDERS: Nurse Practitioner Acute Care; Admitting Provider Internal Medicine; Emergency Provider Emergency Medicine; PCP Family Medicine; Visit Provider Nurse Practitioner Family
DX: N39.0 Urinary tract infection, site not specified (principal); N17.9 Acute kidney failure, unspecified; I13.0 Hypertensive heart and chronic kidney disease with heart failure and stage 1 through stage 4 chronic kidney disease, or unspecified chronic kidney disease; N18.4 Chronic kidney disease, stage 4 (severe); I50.32 Chronic diastolic (congestive) heart failure; G93.40 Encephalopathy, unspecified; I85.10 Secondary esophageal varices without bleeding; I35.0 Nonrheumatic aortic (valve) stenosis; J44.9 Chronic obstructive pulmonary disease, unspecified; E11.22 Type 2 diabetes mellitus with diabetic chronic kidney disease; E11.42 Type 2 diabetes mellitus with diabetic polyneuropathy; E78.5 Hyperlipidemia, unspecified; E03.9 Hypothyroidism, unspecified; K21.9 Gastro-esophageal reflux disease without esophagitis; K74.60 Unspecified cirrhosis of liver; K58.9 Irritable bowel syndrome, unspecified; K75.81 Nonalcoholic steatohepatitis (NASH); M81.0 Age-related osteoporosis without current pathological fracture; M19.90 Unspecified osteoarthritis, unspecified site; R25.1 Tremor, unspecified; R29.6 Repeated falls; F31.9 Bipolar disorder, unspecified; F41.9 Anxiety disorder, unspecified; Z20.822 Contact with and (suspected) exposure to COVID-19; Z11.52 Encounter for screening for COVID-19; Z79.4 Long term (current) use of insulin; Z86.010 Personal history of colon polyps; Z87.891 Personal history of nicotine dependence; B96.20 Unspecified Escherichia coli [E. coli] as the cause of diseases classified elsewhere
CPT/HCPCS: 36415; 71045; 74176; 76705; 80048; 80053; 81001; 82140; 82948; 83605; 83690; 84145; 85025; 85610; 85730; 87040; 87077; 87086; 87088; 87186; 87635; 87637; 93005; 94640; 96361; 96365; 99285; A9270; G0378; J0696; J7030

== ENCOUNTER 2024-09-02 06:55 | Outpatient (RCR) | payer MEDICARE, MEDICAID, SELFPAY ==
[2024-09-02] MEDS: diphenhydrAMINE HCl CAP 25 MG CAPSULE PO (07:54)
[2024-09-02] MEDS: ACETAMINOPHEN 325 MG TABLET 650 MG PO (07:54)
[2024-09-02] MEDS: SODIUM CHLORIDE 0.9% IV 250 ML 30 ML IV CONT (07:56)
[2024-09-02 09:02] VITALS: BP 134/44; PULSE 58; RESP 20; TEMP 37; O2SAT 96
[2024-09-02 09:17] VITALS: BP 132/45; PULSE 61; RESP 20; TEMP 36.6; O2SAT 96
[2024-09-02 10:17] VITALS: BP 110/65; PULSE 60; RESP 20; TEMP 36.5; O2SAT 96
[2024-09-02 11:17] VITALS: BP 139/68; PULSE 58; RESP 20; TEMP 36.6; O2SAT 96
[2024-09-02 12:17] VITALS: BP 138/46; PULSE 58; RESP 20; TEMP 36.7; O2SAT 97
[2024-09-02 12:45] VITALS: BP 139/60; PULSE 61; RESP 20; TEMP 36.6; O2SAT 97
== END 2024-11-30 23:59 | disposition home or self-care (01) ==
LOC: ANHCPCTRAN 06:55
PROVIDERS: PCP Family Medicine; Visit Provider Internal Medicine Hematology & Oncology
DX: D64.9 Anemia, unspecified (principal)
CPT/HCPCS: 36415; 36430; 86850; 86900; 86901; 86922; A9270; J7050; P9016

== ENCOUNTER 2024-09-06 13:33 | Inpatient (IN) | payer MEDICARE, MEDICAID, SELFPAY ==
[2024-09-06] VITALS (10 sets, daily range): BP systolic 131–154; BP diastolic 45–88; PULSE 58–77; RESP 20–30; TEMP 36.6–37.1; O2SAT 94–100
--- NOTE | ~2024-09-06 | US_ITS ---
EXAMINATION: US paracentesis abd w/image DATE: 09/07/2024 15:55 INDICATION: Ascites. TECHNIQUE: The procedure and its risks, benefits, and alternatives were discussed with the patient. P otential risks discussed included bleeding and infection. The skin was prepped and draped in sterile fashion. 1% lidocaine was used for local anesthesia. Under ultrasound guidance, a 5 Fr catheter with trochar was advanced into the ascites in the right lower quadrant. Fluid was aspirated. The catheter was removed, and a dressing was applied. There were no immediate complications. FINDINGS: Ultrasound images demonstrate ascites and the catheter within the fluid. IMPRESSION: 1. Successful ultrasound-guided paracentesis yielding 2100 mL of yellow fluid. Reviewed, dictated and finalized at location A.
--- NOTE | ~2024-09-06 | CT_ITS ---
EXAMINATION: CT abdomen pelvis wo con DATE: 09/06/2024 17:59 INDICATION: Ascites. TECHNIQUE: Computed tomography (CT) of the abdomen and pelvis was performed without intravenous contr ast. Automated exposure control and iterative reconstruction technique were employed. The dose-length product was 542.21 mGy-cm. COMPARISON: CT abdomen and pelvis 08/21/2024 FINDINGS: The visualized portions of the lung bases demonstrate small pleural effusions, right worse than left. There is smooth septal thickening bilaterally, consistent with mild pulmonary edema. Cardi omegaly is noted. There are coronary artery calcifications. There are calcifications of the aortic va lve. No pericardial effusion. The liver demonstrates a nodular surface contour, consistent with cirrh osis. The spleen is normal in size. Paraesophageal varices are noted. There are changes of cholecyste ctomy. The pancreas, adrenal glands, and right kidney are normal. Small calcifications in left kidney may be parenchymal. There is a splenorenal portacaval shunt. There are scattered diverticula in the colon. There is wall thickening of the descending and sigmoid colon, likely interstitial edema. There is wall thickening of the stomach, likely interstitial edema. There is a large volume of ascites. Th ere is edema of the intra-abdominal fat. There is moderate thoracic spondylosis and severe lumbar spo ndylosis. IMPRESSION: 1. Cirrhosis of the liver with portal venous hypertension. 2. Large volume of ascites. 3. Small pleural effusions. 4. Mild pulmonary edema. Reviewed, dictated and finalized at location A.
--- NOTE | ~2024-09-06 | XR_ITS ---
CHEST RADIOGRAPH CLINICAL HISTORY: chills . COMPARISON: 08/21/2024 TECHNIQUE: Single portable view of the chest. FINDINGS The cardiomediastinal silhouette is unremarkable. Increased opacification within the right upper lobe, consistent with an early infiltrate. The remainder of the lungs are clear. Visualized osseous structures and soft tissues are unremarkable. IMPRESSION: Early right upper lobe infiltrate, as detailed above. Reviewed, dictated and finalized at location A.
[2024-09-06 13:51] LABS: Glucose Point of Care 120 mg/dl (65-105)
[2024-09-06 15:38] LABS: Glucose Point of Care 117 mg/dl (65-105)
--- NOTE | 2024-09-06 16:32 | ED.GENADULT ---
HPI - General Adult General Chief complaint: Recheck/Abnormal Lab/Rx Stated complaint: fluctuating blood sugar, shaking Time Seen by Provider: 09/06/24 16:01 History of Present Illness HPI narrative: Pt presents with complaint of being cold and having shaking and chills. Pt denies cough. Pt denies fever. Pt has a history of frequent UTI's. Pt is also diabetic and has diabetic neuropathy. Pt als appears to have tardive dyskinesia. Related Data Home Medications Medication Instructions Recorded Confirmed escitalopram oxalate 5 mg tablet 5 mg PO DAILY 08/21/21 09/05/24 trazodone 100 mg tablet 200 mg PO HS 08/21/21 09/05/24 glucagon HCl 1 mg solution for 1 mg subcut Q20M PRN Hypoglycemia 02/13/22 09/05/24 injection (Glucagon (HCl) Emergency Kit) sodium chloride 0.65 % nasal spray 1 spray intranasal BID PRN Dry 02/13/22 09/05/24 aerosol (Saline Mist) Nasal Passages hydroxyzine HCl 25 mg tablet 50 mg PO Q8H PRN Itching 08/25/22 09/05/24 acetaminophen 500 mg tablet 1,000 mg PO BID PRN Pain (Scale 09/14/22 09/05/24 Score 1-3) atorvastatin 40 mg tablet 40 mg PO HS 01/22/23 09/05/24 gabapentin 600 mg tablet 200 mg PO TID 01/22/23 09/05/24 cholecalciferol (vitamin D3) 1,250 1,250 mcg PO WEEKLY 12/15/23 09/05/24 mcg (50,000 unit) tablet cyanocobalamin (vitamin B-12) 1,000 mcg IM [id number] 12/15/23 09/05/24 1,000 mcg/mL injection solution lamotrigine 150 mg tablet 150 mg PO Q12H 05/17/24 09/05/24 furosemide 20 mg tablet 20 mg PO DAILY 08/16/24 09/05/24 insulin glargine 100 unit/mL (3 15 unit subcut BID 08/16/24 09/05/24 mL) subcutaneous pen (Lantus Solostar U-100 Insulin) lactulose 10 gram/15 mL oral 30 g PO QID 08/16/24 09/05/24 solution vitamins A,C,G-elwf-tjkukd 4,296 1 cap PO DAILY 08/16/24 09/05/24 mcg-226 mg-90 mg capsule (PreserVision AREDS) Questran 4 g PO TID 08/22/24 09/05/24 camphor-menthol 0.5 %-0.5 % lotion 1 applic topical DAILY PRN pruritis 08/22/24 09/05/24 (Sarna Original) clobetasol 0.05 % topical ointment 1 applic topical PRN PRN pruritus 08/22/24 09/05/24 ketoconazole 2 % topical cream 1 applic topical BID 08/22/24 09/05/24 Allergies Allergy/AdvReac Type Severity Reaction Status Date / Time alendronate sodium Allergy Unknown Verified 09/02/24 09:09 amantadine Allergy Unknown Verified 09/02/24 09:09 benztropine Allergy Other Verified 09/02/24 09:09 chlorpromazine Allergy Unknown Verified 09/02/24 09:09 levofloxacin Allergy Unknown Verified 09/02/24 09:09 Macrolide Antibiotics Allergy Unknown Verified 09/02/24 09:09 mirtazapine Allergy Unknown Verified 09/02/24 09:09 Quinolones Allergy Unknown Verified 09/02/24 09:09 topiramate Allergy Unknown Verified 09/02/24 09:09 Review of Systems Review of Systems: All systems reviewed & are unremarkable except as noted in HPI and below PMFSH Past Medical History Medical History (Updated 09/06/24 @ 18:00 by Deyvi Khan III, ) Anxiety Aortic stenosis Moderate on echocardiogram in November 2021. Arthritis Asthma Bipolar disorder Cerebrovascular accident Chronic kidney disease, stage 4 (severe) Chronic obstructive pulmonary disease PFTs 06/28/2021: Moderate obstructive abnormality, moderate decreased diffusion capacity. Depression Diabetic peripheral neuropathy Esophageal varices Frequent falls Gastritis Gastroesophageal reflux disease Heart failure with preserved ejection fraction History of infection due to ESBL Escherichia coli Hyperlipidemia Hypertension Hypothyroidism Insulin dependent diabetes mellitus Intraparenchymal hemorrhage of brain Irritable bowel syndrome 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 Osteoporosis Tremor of both hands Surgical History Surgical History History of bladder surgery History of cataract extraction with lens replacement History of section History of cholecystectomy History of colonoscopy with polypectomy Most recent
[2024-09-06 17:10] LABS: Basophils Absolute Auto 0.1 K/mm3 (0.0-0.1); Basophils Percent Auto 0.6 % (0.2-1.2); Eosinophils Absolute Auto 0.2 K/mm3 (0-0.3); Eosinophils Percent Auto 2.6 % (0-4.4); Hematocrit 27.9 % (37.0-47.0); Hemoglobin 8.8 g/dL (12.0-15.0); Immature Granulocyte Absolute 0.04 K/mm3 (0.00-0.031); Immature Granulocyte Percent A 0.5 % (0-0.5); Lymphocytes Absolute Auto 0.96 K/mm3 (0.9-3.2); Lymphocytes Percent Auto 12.3 % (18.3-44.2); Mean Corpuscular HGB Conc 31.5 g/dl (32-36); Mean Corpuscular Volume 98.2 fl (80-100); Mean Platelet Volume 9.7 fl (7.4-10.4); Monocytes Absolute Auto 0.3 K/mm3 (0.1-0.6); Monocytes Percent Auto 4.4 % (2.6-8.5); Neutrophils Absolute Auto 6.2 K/mm3 (1.3-6.7); Neutrophils Percent Auto 79.6 % (45.5-73.1); Nucleated Red Blood Cells Perc 0.5 % (0.0-0.2); Platelet Count Result 123 k/mm3 (150-375); Red Blood Count 2.84 M/mm3 (4.2-5.4); Red Cell Distribution Width 18.8 % (11.5-14.5); White Blood Count 7.8 K/mm3 (4.5-10.0)
[2024-09-06 17:21] LABS: INR 1.6
[2024-09-06 17:22] LABS: Lactic Acid Reflex 0.8 mmol/L (0.7-2.0); Partial Thromboplastin Time 34.7 Seconds (22.3-36.8)
[2024-09-06 17:26] LABS: Alanine Aminotransferase 25 U/L (6-35); Albumin Level 3.5 g/dL (3.5-5.1); Alkaline Phosphatase 375 U/L (38-126); Anion Gap 10 mmol/L (4-12); Aspartate Amino Transferase 45 U/L (14-36); Bilirubin,Total 0.5 mg/dL (0.2-1.3); Blood Urea Nitrogen 23 mg/dL (7-17); CRP < 0.5 mg/dL (<1.0); Calcium 8.6 mg/dL (8.4-10.2); Carbon Dioxide 15 mmol/L (22-30); Chloride 112 mmol/L (98-107); Estimated Glomerular Filt Rate 23; Glucose 83 mg/dL (65-110); Potassium 5.3 mmol/L (3.4-5.0); Sodium 137 mmol/L (137-145)
--- NOTE | 2024-09-06 17:46 | ECG_ITS ---
Test Date: 2024-09-06 18:07:51 Measurements Intervals [place] Rate: 68 P: 0 DE: 0 QRS: -59 QRSD: 153 T: 38 QT: 461 QTc: 492 Interpretive Statements SINUS RHYTHM WITH FIRST-DEGREE AV BLOCK LEFT AXIS DEVIATION [QRS AXIS < -30] RIGHT BUNDLE BRANCH BLOCK ABNORMAL ECG Compared to ECG 08/21/2024 22:36:57 NO OBVIOUS CHANGE HOWEVER THERE IS BASELINE MOTION ARTIFACT RESULTING IN POOR QUALITY TRACING Electronically Signed On 09-07-2024 07:18:27 CDT by Chester Velez M.D.
[2024-09-06] MEDS: cefTRIAXone 2 GM/NS 100 ML 2 GM/100 ML BAG IVPB (18:21)
[2024-09-06] MEDS: DOXYCYCLINE 100 MG/NS 100 ML 100 MG/100 ML BAG IVPB (18:42)
--- NOTE | 2024-09-06 19:00 | PM.IMHP ---
H&P: HPI History of Present Illness Date/Time: 09/06/24 19:00 Chief Complaint: Multiple complaints. 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 She complains of shakiness and feeling cold with occasional chills but no fever to her knowledge. She also reports that her blood sugars have been fluctuating and she has had intermittent blurry vision with that. Additionally her stomach has become increasingly distended and she is feeling short of breath due to the swelling and feel she would benefit from a therapeutic thoracentesis. She has not had a documented fever. She denies sick contacts. She also denies headache, neck ache, sinus congestion, sore throat, cough, dysphagia, concerns for aspiration, chest pain, pleuritic pain, palpitations, vomiting, diarrhea, and dysuria. In the ED: She was afebrile on arrival with stable blood pressures. Respiratory rate is a bit elevated in the low 20s. Labs were significant for a hemoglobin of 8.8, platelet count 123, potassium 5.3, chloride 112, carbon dioxide 15, BUN 23, creatinine 2.10, lactic acid 0.8, CRP less than 0.5. CT of the abdomen pelvis showed mild pulmonary edema, small pleural effusions, large volume ascites, and cirrhosis of the liver with portal venous hypertension. Chest x-ray shows early right upper lobe infiltrate. She has been started on ceftriaxone and doxycycline is being admitted in this setting for further treatment. Review of Systems Review of Systems: 12 systems were reviewed and are negative except for as per HPI. [facility] Past Medical History Medical History Anxiety Aortic stenosis Moderate on echocardiogram in November 2021. Arthritis Asthma Bipolar disorder Cerebrovascular accident Chronic anemia Chronic kidney disease, stage 4 (severe) Chronic obstructive pulmonary disease PFTs 06/28/2021: Moderate obstructive abnormality, moderate decreased diffusion capacity. 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 Moreno History of partial hysterectomy History of thyroidectomy History of tonsillectomy Family History Family History Sibling Multiple sclerosis Father Acute myocardial infarction, Onset Age: 79 Cerebrovascular accident, Onset Age: 79 Mother Dementia Sibling Acute myocardial infarction, Onset Age: 65 Son Diabetes mellitus Other Depression Family history of arthritis Family history of elevated blood lipids Family history of thyroid disease Hypertension Social History Social History (Updated 09/06/24 @ 22:27 by Destiny Bender PA-C) Social History: Surrogate medical decision maker: Gavino Sigala (son). Code status: Do not resuscitate. Sm
--- NOTE | 2024-09-06 19:20 | ADMGEN ---
This patient, Nisha Sigala, was admitted to Medical Room 249-01. Patient/family oriented to hospital policies and general routines including ID bracelet, bed and alarms, visiting hours, pain management, procedures, bathroom and other care routines, personal items, smoking policy, room service/diet, and visiting hours. Information on how to activate the Rapid Response Team has been discussed. Patient/Family are encouraged to report perceived risks to care and to ask questions if they do not understand what they are told or what they should do.
[2024-09-06 19:42] LABS: Add Urine Microscopic? YES; Appearance Urine Clear (Clear); Bacteria Urine None Seen /hpf; Bilirubin Urine Negative (Negative); Blood Urine Negative (Negative); Color Urine Yellow (Yellow); Glucose Urine UA Negative (Negative); Ketones Urine Negative (Negative); Leukocyte Esterase Ur Trace LEU/UL (Negative); Need Manual Microscopic Reviewed; Nitrate Urine Negative (Negative); Protein Urine 1+ mg/dL (Negative); RBC Urine 0-2 /hpf (0-2); Specific Grav Ur 1.009 (1.001-1.035); Squamous Epithelial Cell Urine Occasional /hpf (Few); Urobilinogen Urine 0.2 mg/dL (<2.0); WBC Urine 0-5 /hpf (0-3)
[2024-09-06] MEDS: FUROSEMIDE INJ 40 MG/4 ML VIAL 20 MG IV PUSH (21:26)
[2024-09-06] MEDS: traZODone HCL 50 MG TABLET 150 MG PO (21:27)
[2024-09-06] MEDS: lamoTRIgine 100 MG TABLET PO (21:27)
[2024-09-06] MEDS: ATORVASTATIN 40 MG TABLET PO (21:27)
[2024-09-06] MEDS: PANTOPRAZOLE 40 MG TABLET PO (21:27)
[2024-09-06] MEDS: lamoTRIgine 25 MG TABLET 50 MG PO (21:27)
[2024-09-06] MEDS: hydrALAZINE HCL 25 MG TABLET PO (21:27)
[2024-09-06] MEDS: MELATONIN 3 MG TABLET PO (21:28)
[2024-09-06] MEDS: GABAPENTIN 100 MG CAPSULE 200 MG PO (21:28)
[2024-09-06 23:47] LABS: Influenza A QL RT-PCR Negative (Negative); Influenza B QL RT-PCR Negative (Negative); RSV RNA, RT-PCR Negative (Negative); SARS-CoV-2 RNA PCR Negative (Negative)
[2024-09-06 23:49] LABS: Potassium 5.4 mmol/L (3.4-5.0)
[2024-09-07 00:19] LABS: MRSA (PCR) NOT DETECTED (NOT DETECTE)
[2024-09-07] MEDS: SODIUM ZIRCONIUM CYCLOSILICATE 10 GM POWD.PACK PO (02:38)
[2024-09-07 04:07] VITALS: BP 149/49; PULSE 66; RESP 18; TEMP 36.5; O2SAT 100
[2024-09-07 04:18] LABS: Glucose Point of Care 73 mg/dl (65-105)
[2024-09-07] MEDS: LEVOTHYROXINE SODIUM 150 MCG TABLET PO (05:51)
[2024-09-07 06:07] LABS: Basophils Absolute Auto 0.1 K/mm3 (0.0-0.1); Eosinophils Absolute Auto 0.1 K/mm3 (0-0.3); Eosinophils Percent Auto 2.7 % (0-4.4); Hematocrit 26.8 % (37.0-47.0); Hemoglobin 8.2 g/dL (12.0-15.0); Immature Granulocyte Absolute 0.04 K/mm3 (0.00-0.031); Immature Granulocyte Percent A 0.8 % (0-0.5); Lymphocytes Percent Auto 19.3 % (18.3-44.2); Mean Corpuscular HGB Conc 30.6 g/dl (32-36); Mean Corpuscular Hemoglobin 30.1 pg (26-34); Mean Corpuscular Volume 98.5 fl (80-100); Mean Platelet Volume 9.5 fl (7.4-10.4); Monocytes Absolute Auto 0.2 K/mm3 (0.1-0.6); Monocytes Percent Auto 3.9 % (2.6-8.5); Neutrophils Absolute Auto 3.8 K/mm3 (1.3-6.7); Neutrophils Percent Auto 72.3 % (45.5-73.1); Nucleated Red Blood Cells Perc 0.6 % (0.0-0.2); Platelet Count Result 106 k/mm3 (150-375); Red Blood Count 2.72 M/mm3 (4.2-5.4); White Blood Count 5.2 K/mm3 (4.5-10.0)
[2024-09-07 06:14] LABS: Sodium 137 mmol/L (137-145)
[2024-09-07 06:15] LABS: Anion Gap 10 mmol/L (4-12); Blood Urea Nitrogen 30 mg/dL (7-17); Calcium 8.7 mg/dL (8.4-10.2); Carbon Dioxide 16 mmol/L (22-30); Chloride 111 mmol/L (98-107); Estimated CRCL calculation 17 ml/min; Estimated Glomerular Filt Rate 23; Glucose 69 mg/dL (65-110); Potassium 5.1 mmol/L (3.4-5.0)
[2024-09-07] MEDS: DOXYCYCLINE 100 MG/NS 100 ML 100 MG/100 ML BAG IVPB ×2 (07:08→18:44)
[2024-09-07 07:37] VITALS: PULSE 70; RESP 20; O2SAT 97
--- NOTE | 2024-09-07 08:28 | PM.IMPN ---
Progress Note: A&P Assessment and Plan (1) Pneumonia: Code(s): J18.9 - Pneumonia, unspecified organism Status: Acute Assessment and Plan: hest x-ray shows an early infiltrate in the right upper lobe for which she has been started on ceftriaxone and doxycycline. She is more short of breath compared to baseline which is likely due to small pleural effusions and mild pulmonary edema. She has increasing abdominal distention due to ascites which is also likely making her feel increasingly short of breath. Pulmonary embolism seems less likely by history and there is no significant wheezing on exam to suggest exacerbation of COPD. One dose of IV Lasix ordered this evening to help get off a little extra fluid. (2) Hyperkalemia: Code(s): E87.5 - Hyperkalemia Status: Acute Assessment and Plan: 09/07- K 5.1 today (downtrending from 5.4_ (3) Cirrhosis of liver with ascites: Qualifiers: Hepatic cirrhosis type: unspecified hepatic cirrhosis Qualified Code(s): K74.60 - Unspecified cirrhosis of liver; R18.8 - Other ascites Code(s): K74.60 - Unspecified cirrhosis of liver; R18.8 - Other ascites Status: Inactive Assessment and Plan: - IR paracentesis ordered (4) Chronic anemia: Code(s): D64.9 - Anemia, unspecified Status: Acute (5) Chronic kidney disease: Code(s): N18.9 - Chronic kidney disease, unspecified Status: Acute (6) Chronic obstructive pulmonary disease: Code(s): J44.9 - Chronic obstructive pulmonary disease, unspecified Status: Acute (7) Insulin dependent diabetes mellitus: Status: Acute Assessment and Plan: fluctuating blood sugars and her glucose this evening was in the 70s - glargine 15 units bid- may need to be re adjusted for hs only prior to discharge- holding for now basal insulin is being held tonight Initiate sliding scale insulin, Accu-Cheks, and hypoglycemic protocol - add dietary consult (8) Hypertension: Code(s): I10 - Essential (primary) hypertension Status: Acute (9) Hypothyroidism: Qualifiers: Hypothyroidism type: acquired Qualified Code(s): E03.9 - Hypothyroidism, unspecified Code(s): E03.9 - Hypothyroidism, unspecified Status: Acute Plan #chronic anemia-appears stable Time Spent With Patient Time with patient: Greater than 35 minutes Subjective Date/time seen: 09/07/24 08:28 Interval history: Multiple complaints. 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 She complains of shakiness and feeling cold with occasional chills but no fever to her knowledge. She also reports that her blood sugars have been fluctuating and she has had intermittent blurry vision with that. Additionally her stomach has become increasingly distended and she is feeling short of breath due to the swelling and feel she would benefit from a therapeutic thoracentesis. She has not had a documented fever. She denies sick contacts. She also denies headache, neck ache, sinus congestion, sore throat, cough, dysphagia, concerns for aspiration, chest pain, pleuritic pain, palpitations, vomiting, diarrhea, and dysuria. In the ED: She was afebrile on arrival with stable blood pressures. Respiratory rate is a bit elevated in the low 20s. Labs were significant for a hemoglobin of 8.8, platelet count 123, potassium 5.3, chloride 112, carbon dioxide 15, BUN 23, creatinine 2.10, lactic acid 0.8, CRP less than 0.5. CT of the abdomen pelvis showed mild pulmonary edema, small pleural effusions, large vol
[2024-09-07 08:45] VITALS: O2SAT 94
[2024-09-07] MEDS: amLODIPine BESYLATE 5 MG TABLET PO (08:48)
[2024-09-07] MEDS: FUROSEMIDE 20 MG TABLET PO (08:48)
[2024-09-07] MEDS: ESCITALOPRAM OXALATE 5 MG TABLET PO (08:48)
[2024-09-07] MEDS: hydrALAZINE HCL 25 MG TABLET PO ×3 (08:49→17:40)
[2024-09-07] MEDS: ISOSORBIDE MONONITRATE 30 MG TAB.ER.24H PO (08:49)
[2024-09-07] MEDS: lamoTRIgine 100 MG TABLET PO ×2 (08:49→21:46)
[2024-09-07] MEDS: GABAPENTIN 100 MG CAPSULE 200 MG PO ×3 (08:49→17:40)
[2024-09-07] MEDS: PANTOPRAZOLE 40 MG TABLET PO ×2 (08:49→21:47)
[2024-09-07] MEDS: LACTULOSE 20 GM/30 ML UDC 30 GM PO ×4 (08:49→21:46)
[2024-09-07] MEDS: OPTI-GEN TAB 1 TABLET PO (08:49)
[2024-09-07] MEDS: HYDROcodone/acetaminophen (*CRX) 5-325 MG TABLET 1 TAB PO ×2 (08:51→18:43)
[2024-09-07 08:53] LABS: Glucose Point of Care 81 mg/dl (65-105)
[2024-09-07] MEDS: lamoTRIgine 25 MG TABLET 50 MG PO ×2 (09:03→21:46)
[2024-09-07 11:06] VITALS: BMI 27.2
[2024-09-07 11:59] LABS: Glucose Point of Care 118 mg/dl (65-105)
[2024-09-07] MEDS: FERROUS SULFATE 325 MG TABLET DR PO ×2 (12:20→17:47)
[2024-09-07 14:00] VITALS: BP 140/52; PULSE 72; RESP 19; TEMP 36.4; O2SAT 96
[2024-09-07 17:12] LABS: Glucose Point of Care 64 mg/dl (65-105)
[2024-09-07] MEDS: cefTRIAXone 2 GM/NS 100 ML 2 GM/100 ML BAG IVPB (17:41)
[2024-09-07 20:00] VITALS: PULSE 60; RESP 20; O2SAT 98
[2024-09-07] MEDS: ATORVASTATIN 40 MG TABLET PO (21:45)
[2024-09-07] MEDS: MELATONIN 3 MG TABLET PO (21:47)
[2024-09-07] MEDS: traZODone HCL 50 MG TABLET 150 MG PO (21:47)
[2024-09-07 21:48] VITALS: BP 124/40; PULSE 60; RESP 20; TEMP 37.1; O2SAT 98
[2024-09-07 21:50] LABS: Glucose Point of Care 115 mg/dl (65-105)
[2024-09-07] MEDS: hydrOXYzine HCL 25 MG TABLET 50 MG PO (22:07)
[2024-09-08 04:27] VITALS: BP 105/66; PULSE 83; RESP 18; TEMP 36.9; O2SAT 99
[2024-09-08 05:29] LABS: Glucose Point of Care 87 mg/dl (65-105)
[2024-09-08] MEDS: DOXYCYCLINE 100 MG/NS 100 ML 100 MG/100 ML BAG IVPB ×2 (05:39→17:50)
[2024-09-08] MEDS: LEVOTHYROXINE SODIUM 150 MCG TABLET PO (05:40)
[2024-09-08 08:10] VITALS: O2SAT 96
[2024-09-08 08:27] LABS: Glucose Point of Care 145 mg/dl (65-105)
--- NOTE | 2024-09-08 08:28 | PM.IMPN ---
Progress Note: A&P Assessment and Plan (1) Pneumonia: Code(s): J18.9 - Pneumonia, unspecified organism Status: Acute Assessment and Plan: chest x-ray shows an early infiltrate in the right upper lobe for which she has been started on ceftriaxone and doxycycline. She is more short of breath compared to baseline which is likely due to small pleural effusions and mild pulmonary edema. She has increasing abdominal distention due to ascites which is also likely making her feel increasingly short of breath. Pulmonary embolism seems less likely by history and there is no significant wheezing on exam to suggest exacerbation of COPD. One dose of IV Lasix ordered this evening to help get off a little extra fluid. 09/08- breathing is a lot better. continue IV antibiotics for now (2) Hyperkalemia: Code(s): E87.5 - Hyperkalemia Status: Acute Assessment and Plan: 09/07- K 5.1 today (downtrending from 5.4_ (3) Cirrhosis of liver with ascites: Qualifiers: Hepatic cirrhosis type: unspecified hepatic cirrhosis Qualified Code(s): K74.60 - Unspecified cirrhosis of liver; R18.8 - Other ascites Code(s): K74.60 - Unspecified cirrhosis of liver; R18.8 - Other ascites Status: Inactive Assessment and Plan: - IR paracentesis ordered 09/07 (4) Chronic anemia: Code(s): D64.9 - Anemia, unspecified Status: Acute (5) Chronic kidney disease: Code(s): N18.9 - Chronic kidney disease, unspecified Status: Acute (6) Chronic obstructive pulmonary disease: Code(s): J44.9 - Chronic obstructive pulmonary disease, unspecified Status: Acute (7) Insulin dependent diabetes mellitus: Status: Acute Assessment and Plan: fluctuating blood sugars and her glucose this evening was in the 70s - glargine 15 units bid- may need to be re adjusted for hs only prior to discharge- holding for now basal insulin is being held tonight Initiate sliding scale insulin, Accu-Cheks, and hypoglycemic protocol - add dietary consult - BS had been stable so far- will monitor (8) Hypertension: Code(s): I10 - Essential (primary) hypertension Status: Acute (9) Hypothyroidism: Qualifiers: Hypothyroidism type: acquired Qualified Code(s): E03.9 - Hypothyroidism, unspecified Code(s): E03.9 - Hypothyroidism, unspecified Status: Acute Plan #chronic anemia-appears stable Time Spent With Patient Time with patient: Greater than 35 minutes Subjective Date/time seen: 09/08/24 08:28 Interval history: Multiple complaints. 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 She complains of shakiness and feeling cold with occasional chills but no fever to her knowledge. She also reports that her blood sugars have been fluctuating and she has had intermittent blurry vision with that. Additionally her stomach has become increasingly distended and she is feeling short of breath due to the swelling and feel she would benefit from a therapeutic thoracentesis. She has not had a documented fever. She denies sick contacts. She also denies headache, neck ache, sinus congestion, sore throat, cough, dysphagia, concerns for aspiration, chest pain, pleuritic pain, palpitations, vomiting, diarrhea, and dysuria. In the ED: She was afebrile on arrival with stable blood pressures. Respiratory rate is a bit elevated in the low 20s. Labs were significant for a hemoglobin of 8.8, platelet count 123, potassium 5.3, chloride 112, carbon dioxide 15, BUN 23, creatinine 2.10, lacti
[2024-09-08 09:10] LABS: Hematocrit 23.3 % (37.0-47.0); Hemoglobin 7.3 g/dL (12.0-15.0); Mean Corpuscular HGB Conc 31.3 g/dl (32-36); Mean Corpuscular Hemoglobin 31.7 pg (26-34); Mean Corpuscular Volume 101.3 fl (80-100); Mean Platelet Volume 9.5 fl (7.4-10.4); Platelet Count Result 101 k/mm3 (150-375); Red Cell Distribution Width 19.9 % (11.5-14.5); White Blood Count 5.6 K/mm3 (4.5-10.0)
[2024-09-08 09:25] LABS: Anion Gap 8 mmol/L (4-12); Blood Urea Nitrogen 34 mg/dL (7-17); Calcium 8.4 mg/dL (8.4-10.2); Carbon Dioxide 18 mmol/L (22-30); Chloride 112 mmol/L (98-107); Estimated CRCL calculation 15 ml/min; Estimated Glomerular Filt Rate 21; Glucose 103 mg/dL (65-110); Potassium 4.6 mmol/L (3.4-5.0); Sodium 138 mmol/L (137-145)
[2024-09-08] MEDS: OPTI-GEN TAB 1 TABLET PO (09:42)
[2024-09-08] MEDS: hydrALAZINE HCL 25 MG TABLET PO ×3 (09:42→17:02)
[2024-09-08] MEDS: GABAPENTIN 100 MG CAPSULE 200 MG PO ×3 (09:43→17:01)
[2024-09-08] MEDS: PANTOPRAZOLE 40 MG TABLET PO ×2 (09:43→21:04)
[2024-09-08] MEDS: lamoTRIgine 100 MG TABLET PO ×2 (09:43→21:04)
[2024-09-08] MEDS: lamoTRIgine 25 MG TABLET 50 MG PO ×2 (09:43→21:03)
[2024-09-08] MEDS: ISOSORBIDE MONONITRATE 30 MG TAB.ER.24H PO (09:43)
[2024-09-08] MEDS: ESCITALOPRAM OXALATE 5 MG TABLET PO (09:43)
[2024-09-08] MEDS: amLODIPine BESYLATE 5 MG TABLET PO (09:43)
[2024-09-08] MEDS: LACTULOSE 20 GM/30 ML UDC 30 GM PO ×3 (09:43→17:02)
[2024-09-08] MEDS: FUROSEMIDE 20 MG TABLET PO (09:43)
[2024-09-08 09:45] VITALS: O2SAT 96
[2024-09-08 13:06] LABS: Glucose Point of Care 103 mg/dl (65-105)
[2024-09-08] MEDS: FERROUS SULFATE 325 MG TABLET DR PO ×2 (13:17→17:01)
[2024-09-08 14:00] VITALS: BP 120/34; PULSE 91; RESP 18; TEMP 36.1; O2SAT 100
[2024-09-08] MEDS: HYDROcodone/acetaminophen (*CRX) 5-325 MG TABLET 1 TAB PO ×2 (14:06→21:04)
[2024-09-08 16:54] LABS: Glucose Point of Care 98 mg/dl (65-105)
[2024-09-08] MEDS: cefTRIAXone 2 GM/NS 100 ML 2 GM/100 ML BAG IVPB (17:03)
[2024-09-08 20:00] VITALS: O2SAT 100
[2024-09-08] MEDS: ATORVASTATIN 40 MG TABLET PO (21:04)
[2024-09-08] MEDS: traZODone HCL 50 MG TABLET 150 MG PO (21:04)
[2024-09-08] MEDS: MELATONIN 3 MG TABLET PO (21:05)
[2024-09-08 21:10] VITALS: BP 125/60; PULSE 62; RESP 18; TEMP 36.9; O2SAT 100
[2024-09-08 23:11] LABS: Glucose Point of Care 87 mg/dl (65-105)
[2024-09-09] VITALS (10 sets, daily range): BP systolic 110–132; BP diastolic 35–74; PULSE 56–87; RESP 14–18; TEMP 36.3–36.9; O2SAT 94–100
[2024-09-09] MEDS: LEVOTHYROXINE SODIUM 150 MCG TABLET PO (05:41)
[2024-09-09] MEDS: DOXYCYCLINE 100 MG/NS 100 ML 100 MG/100 ML BAG IVPB (05:42)
[2024-09-09] MEDS: hydrOXYzine HCL 25 MG TABLET 50 MG PO (05:44)
[2024-09-09] MEDS: ISOSORBIDE MONONITRATE 30 MG TAB.ER.24H PO (08:59)
[2024-09-09] MEDS: lamoTRIgine 25 MG TABLET 50 MG PO ×2 (08:59→20:50)
[2024-09-09] MEDS: hydrALAZINE HCL 25 MG TABLET PO ×2 (08:59→13:26)
[2024-09-09] MEDS: ESCITALOPRAM OXALATE 5 MG TABLET PO (08:59)
[2024-09-09] MEDS: OPTI-GEN TAB 1 TABLET PO (09:00)
[2024-09-09] MEDS: PANTOPRAZOLE 40 MG TABLET PO ×2 (09:00→20:50)
[2024-09-09] MEDS: GABAPENTIN 100 MG CAPSULE 200 MG PO ×3 (09:00→17:34)
[2024-09-09] MEDS: amLODIPine BESYLATE 5 MG TABLET PO (09:00)
[2024-09-09] MEDS: lamoTRIgine 100 MG TABLET PO ×2 (09:00→20:50)
[2024-09-09] MEDS: FUROSEMIDE 20 MG TABLET PO (09:00)
[2024-09-09 09:30] LABS: Hematocrit 23.3 % (37.0-47.0); Mean Corpuscular HGB Conc 29.2 g/dl (32-36); Mean Corpuscular Hemoglobin 30.2 pg (26-34); Mean Corpuscular Volume 103.6 fl (80-100); Mean Platelet Volume 9.9 fl (7.4-10.4); Platelet Count Result 87 k/mm3 (150-375); Red Blood Count 2.25 M/mm3 (4.2-5.4); Red Cell Distribution Width 20.1 % (11.5-14.5); White Blood Count 3.9 K/mm3 (4.5-10.0)
[2024-09-09 09:33] LABS: Hemoglobin 6.8 g/dL (12.0-15.0)
[2024-09-09 09:38] LABS: Anion Gap 10 mmol/L (4-12); Blood Urea Nitrogen 31 mg/dL (7-17); Calcium 8.4 mg/dL (8.4-10.2); Carbon Dioxide 15 mmol/L (22-30); Chloride 113 mmol/L (98-107); Estimated CRCL calculation 13 ml/min; Estimated Glomerular Filt Rate 20; Glucose 130 mg/dL (65-110); Potassium 4.6 mmol/L (3.4-5.0); Sodium 138 mmol/L (137-145)
[2024-09-09 11:46] LABS: Glucose Point of Care 109 mg/dl (65-105)
[2024-09-09] MEDS: FERROUS SULFATE 325 MG TABLET DR PO ×2 (12:17→17:35)
--- NOTE | 2024-09-09 12:47 | PM.IMPN ---
Progress Note: A&P Assessment and Plan (1) Pneumonia: Code(s): J18.9 - Pneumonia, unspecified organism Status: Acute Assessment and Plan: chest x-ray shows an early infiltrate in the right upper lobe for which she has been started on ceftriaxone and doxycycline. She is more short of breath compared to baseline which is likely due to small pleural effusions and mild pulmonary edema. She has increasing abdominal distention due to ascites which is also likely making her feel increasingly short of breath. Pulmonary embolism seems less likely by history and there is no significant wheezing on exam to suggest exacerbation of COPD. One dose of IV Lasix ordered this evening to help get off a little extra fluid. 09/08- breathing is a lot better. continue IV antibiotics for now 09/09- stable- no acute complains- will de escalate to PO antibiotics (2) Hyperkalemia: Code(s): E87.5 - Hyperkalemia Status: Acute Assessment and Plan: 09/07- K 5.1 today (downtrending from 5.4_ (3) Cirrhosis of liver with ascites: Qualifiers: Hepatic cirrhosis type: unspecified hepatic cirrhosis Qualified Code(s): K74.60 - Unspecified cirrhosis of liver; R18.8 - Other ascites Code(s): K74.60 - Unspecified cirrhosis of liver; R18.8 - Other ascites Status: Inactive Assessment and Plan: - IR paracentesis ordered 09/07 (4) Chronic anemia: Code(s): D64.9 - Anemia, unspecified Status: Acute Assessment and Plan: will transfuse 1 unit PRBC -repeat cbc per protocol 1 h after transfusion and in am (5) Chronic kidney disease: Code(s): N18.9 - Chronic kidney disease, unspecified Status: Acute (6) Chronic obstructive pulmonary disease: Code(s): J44.9 - Chronic obstructive pulmonary disease, unspecified Status: Acute (7) Insulin dependent diabetes mellitus: Status: Acute Assessment and Plan: fluctuating blood sugars and her glucose this evening was in the 70s - glargine 15 units bid- may need to be re adjusted for hs only prior to discharge- holding for now basal insulin is being held tonight Initiate sliding scale insulin, Accu-Cheks, and hypoglycemic protocol - add dietary consult - BS had been stable so far- will monitor (8) Hypertension: Code(s): I10 - Essential (primary) hypertension Status: Acute (9) Hypothyroidism: Qualifiers: Hypothyroidism type: acquired Qualified Code(s): E03.9 - Hypothyroidism, unspecified Code(s): E03.9 - Hypothyroidism, unspecified Status: Acute Plan #chronic anemia-appears stable Time Spent With Patient Time with patient: Greater than 35 minutes Subjective Date/time seen: 09/09/24 12:47 Interval history: Multiple complaints. 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 She complains of shakiness and feeling cold with occasional chills but no fever to her knowledge. She also reports that her blood sugars have been fluctuating and she has had intermittent blurry vision with that. Additionally her stomach has become increasingly distended and she is feeling short of breath due to the swelling and feel she would benefit from a therapeutic thoracentesis. She has not had a documented fever. She denies sick contacts. She also denies headache, neck ache, sinus congestion, sore throat, cough, dysphagia, concerns for aspiration, chest pain, pleuritic pain, palpitations, vomiting, diarrhea, and dysuria. In the ED: She was afebrile on arrival with stable blood pressures. Respiratory
[2024-09-09] MEDS: HYDROcodone/acetaminophen (*CRX) 5-325 MG TABLET 1 TAB PO (13:23)
[2024-09-09] MEDS: SODIUM CHLORIDE 0.9% IV 250 ML 30 ML IV CONT (14:04)
[2024-09-09 14:53] LABS: SARS-CoV-2 RNA PCR Negative (Negative)
[2024-09-09 17:00] LABS: Glucose Point of Care 106 mg/dl (65-105)
[2024-09-09] MEDS: DOXYCYCLINE HYCLATE 100 MG TABLET PO (18:04)
[2024-09-09] MEDS: AMOXICILLIN/CLAVULANATE K 500-125 MG TAB 1 TABLET PO (18:04)
[2024-09-09 19:18] LABS: Hematocrit 25.6 % (37.0-47.0)
[2024-09-09 20:06] LABS: Glucose Point of Care 107 mg/dl (65-105)
[2024-09-09] MEDS: ATORVASTATIN 40 MG TABLET PO (20:50)
[2024-09-09] MEDS: MELATONIN 3 MG TABLET PO (20:50)
[2024-09-09] MEDS: traZODone HCL 50 MG TABLET 150 MG PO (20:50)
[2024-09-10 01:06] LABS: Glucose Point of Care 68 mg/dl (65-105)
[2024-09-10 01:37] LABS: Glucose Point of Care 97 mg/dl (65-105)
[2024-09-10 05:37] LABS: Hematocrit 27.3 % (37.0-47.0); Hemoglobin 8.5 g/dL (12.0-15.0); Mean Corpuscular HGB Conc 31.1 g/dl (32-36); Mean Corpuscular Hemoglobin 30.8 pg (26-34); Mean Corpuscular Volume 98.9 fl (80-100); Mean Platelet Volume 9.7 fl (7.4-10.4); Platelet Count Result 80 k/mm3 (150-375); Red Blood Count 2.76 M/mm3 (4.2-5.4); Red Cell Distribution Width 20.1 % (11.5-14.5); White Blood Count 3.5 K/mm3 (4.5-10.0)
[2024-09-10 05:44] LABS: Anion Gap 8 mmol/L (4-12); Blood Urea Nitrogen 32 mg/dL (7-17); Calcium 8.4 mg/dL (8.4-10.2); Carbon Dioxide 15 mmol/L (22-30); Chloride 115 mmol/L (98-107); Estimated CRCL calculation 12 ml/min; Estimated Glomerular Filt Rate 19; Glucose 89 mg/dL (65-110); Potassium 4.9 mmol/L (3.4-5.0); Sodium 138 mmol/L (137-145)
[2024-09-10 05:53] VITALS: BP 128/58; PULSE 64; RESP 16; TEMP 36.8; O2SAT 97
[2024-09-10 06:00] VITALS: BP 128/58; PULSE 64; RESP 16; TEMP 36.8; O2SAT 97
[2024-09-10] MEDS: LEVOTHYROXINE SODIUM 150 MCG TABLET PO (06:05)
[2024-09-10 07:29] LABS: Glucose Point of Care 103 mg/dl (65-105)
[2024-09-10 08:31] VITALS: O2SAT 99
[2024-09-10] MEDS: UMECLIDINIUM/VILANTEROL 62.5-25 MCG ELLIPTA 1 PUFF INHALATION (08:31)
[2024-09-10 08:35] LABS: Glucose Point of Care 95 mg/dl (65-105)
--- NOTE | 2024-09-10 08:36 | PM.DS ---
DS: Admitting Diagnosis Discharge Date 09/10 Admitting Diagnosis sob DS: Discharge Diagnosis Discharge Diagnosis (1) Pneumonia: Code(s): J18.9 - Pneumonia, unspecified organism Status: Acute Assessment and Plan: chest x-ray shows an early infiltrate in the right upper lobe for which she has been started on ceftriaxone and doxycycline. She is more short of breath compared to baseline which is likely due to small pleural effusions and mild pulmonary edema. She has increasing abdominal distention due to ascites which is also likely making her feel increasingly short of breath. Pulmonary embolism seems less likely by history and there is no significant wheezing on exam to suggest exacerbation of COPD. One dose of IV Lasix ordered this evening to help get off a little extra fluid. 09/08- breathing is a lot better. continue IV antibiotics for now 09/09- stable- no acute complains- will de escalate to PO antibiotics 09/10- will discharge with antibiotics and close f/u with pcp (2) Hyperkalemia: Code(s): E87.5 - Hyperkalemia Status: Acute Assessment and Plan: 09/07- K 5.1 today (downtrending from 5.4_ (3) Cirrhosis of liver with ascites: Qualifiers: Hepatic cirrhosis type: unspecified hepatic cirrhosis Qualified Code(s): K74.60 - Unspecified cirrhosis of liver; R18.8 - Other ascites Code(s): K74.60 - Unspecified cirrhosis of liver; R18.8 - Other ascites Status: Inactive Assessment and Plan: - IR paracentesis ordered 09/07 (4) Chronic anemia: Code(s): D64.9 - Anemia, unspecified Status: Acute Assessment and Plan: will transfuse 1 unit PRBC -repeat cbc per protocol 1 h after transfusion and in am (5) Chronic kidney disease: Code(s): N18.9 - Chronic kidney disease, unspecified Status: Acute (6) Chronic obstructive pulmonary disease: Code(s): J44.9 - Chronic obstructive pulmonary disease, unspecified Status: Acute (7) Insulin dependent diabetes mellitus: Status: Acute Assessment and Plan: fluctuating blood sugars and her glucose this evening was in the 70s - glargine 15 units bid- may need to be re adjusted for hs only prior to discharge- holding for now basal insulin is being held tonight Initiate sliding scale insulin, Accu-Cheks, and hypoglycemic protocol - add dietary consult - BS had been stable so far- will monitor (8) Hypertension: Code(s): I10 - Essential (primary) hypertension Status: Acute (9) Hypothyroidism: Qualifiers: Hypothyroidism type: acquired Qualified Code(s): E03.9 - Hypothyroidism, unspecified Code(s): E03.9 - Hypothyroidism, unspecified Status: Acute Plan #chronic anemia-appears stable DS: Summary Hospital Course Hospital Course: Several issues were addressed: # Pneumonia, unspecified organism chest x-ray shows an early infiltrate in the right upper lobe for which she has been started on ceftriaxone and doxycycline. She is more short of breath compared to baseline which is likely due to small pleural effusions and mild pulmonary edema. She has increasing abdominal distention due to ascites which is also likely making her feel increasingly short of breath. Pulmonary embolism seems less likely by history and there is no significant wheezing on exam to suggest exacerbation of COPD. One dose of IV Lasix ordered this evening to help get off a little extra fluid. she will be discharged on doxycycline will need two more doses- 09/10 at 9pm, and 11/11 9 am. continue Augmentin- will need total of 6 doses left- last one 09/13 at 09am #anemia - received 1 unit RPBC 09/09- hg is stable today-8.5 # Insulin dependent diabetes mellitus: -home regimen: glargine 15 units bid Since she had several episodes of low blood sugars at home- we will change lantus- long acting insulin to 15 units at bedtime INSTEAD of twice a day. Continue sliding
[2024-09-10 09:20] VITALS: O2SAT 99
[2024-09-10] MEDS: GABAPENTIN 100 MG CAPSULE 200 MG PO ×2 (09:24→12:28)
[2024-09-10] MEDS: FUROSEMIDE 20 MG TABLET PO (09:25)
[2024-09-10] MEDS: lamoTRIgine 100 MG TABLET PO (09:25)
[2024-09-10] MEDS: AMOXICILLIN/CLAVULANATE K 500-125 MG TAB 1 TABLET PO (09:25)
[2024-09-10] MEDS: PANTOPRAZOLE 40 MG TABLET PO (09:26)
[2024-09-10] MEDS: lamoTRIgine 25 MG TABLET 50 MG PO (09:26)
[2024-09-10] MEDS: DOXYCYCLINE HYCLATE 100 MG TABLET PO (09:26)
[2024-09-10] MEDS: ISOSORBIDE MONONITRATE 30 MG TAB.ER.24H PO (09:27)
[2024-09-10] MEDS: OPTI-GEN TAB 1 TABLET PO (09:27)
[2024-09-10] MEDS: ESCITALOPRAM OXALATE 5 MG TABLET PO (09:27)
[2024-09-10 12:19] LABS: Glucose Point of Care 117 mg/dl (65-105)
[2024-09-10] MEDS: FERROUS SULFATE 325 MG TABLET DR PO (12:29)
[2024-09-10 14:00] VITALS: BP 122/71; PULSE 56; RESP 16; TEMP 36.4; O2SAT 100
[2024-09-10 16:35] LABS: Pneumococcal Antigen Urine NOT DETECTED
[2024-09-10 18:28] LABS: Mycoplasma IgM Antibody Titer 270 U/mL
[2024-09-10 22:09] LABS: Legionella pneumophila Ag Ur NOT DETECTED
== END 2024-09-10 14:38 | DRG 194 ==
LOC: ANHED 18:00 → ANH2MED 18:55
PROVIDERS: Physician Assistant; Admitting Provider General Practice; Emergency Provider Emergency Medicine; PCP Family Medicine; Visit Provider Nurse Practitioner
DX: J18.9 Pneumonia, unspecified organism (principal); I13.0 Hypertensive heart and chronic kidney disease with heart failure and stage 1 through stage 4 chronic kidney disease, or unspecified chronic kidney disease; I50.32 Chronic diastolic (congestive) heart failure; N18.4 Chronic kidney disease, stage 4 (severe); J44.0 Chronic obstructive pulmonary disease with (acute) lower respiratory infection; K76.6 Portal hypertension; I85.10 Secondary esophageal varices without bleeding; R18.8 Other ascites; I35.0 Nonrheumatic aortic (valve) stenosis; E87.5 Hyperkalemia; E11.42 Type 2 diabetes mellitus with diabetic polyneuropathy; E11.22 Type 2 diabetes mellitus with diabetic chronic kidney disease; E03.9 Hypothyroidism, unspecified; E78.5 Hyperlipidemia, unspecified; K57.30 Diverticulosis of large intestine without perforation or abscess without bleeding; K21.9 Gastro-esophageal reflux disease without esophagitis; K58.9 Irritable bowel syndrome, unspecified; K74.60 Unspecified cirrhosis of liver; K75.81 Nonalcoholic steatohepatitis (NASH); M81.0 Age-related osteoporosis without current pathological fracture; R25.1 Tremor, unspecified; F41.9 Anxiety disorder, unspecified; R29.6 Repeated falls; F31.9 Bipolar disorder, unspecified; Z20.822 Contact with and (suspected) exposure to COVID-19; Z79.4 Long term (current) use of insulin; Z87.891 Personal history of nicotine dependence; Z86.73 Personal history of transient ischemic attack (TIA), and cerebral infarction without residual deficits
CPT/HCPCS: 36415; 36430; 49083; 71045; 74176; 80048; 80053; 81001; 82948; 83605; 84132; 85014; 85018; 85025; 85027; 85055; 85610; 85730; 86140; 86738; 86850; 86900; 86901; 86922; 87040; 87449; 87635; 87637; 87641; 87899; 93005; 94640; 96365; 96367; 96376; 99285; A9270; G0378; J0696; J1940; J7050; P9016

== ENCOUNTER 2024-10-09 22:17 | Emergency (ER) | payer MEDICARE, MEDICAID, SELFPAY ==
--- NOTE | ~2024-10-09 | XR_ITS ---
AP view of the pelvis Clinical history: Pain Findings: No acute fracture or dislocation is seen. Osseous alignment is anatomic. Bilateral hip and SI joint spaces are preserved. Soft tissues are unremarkable. Impression: No significant abnormality is seen. Reviewed, dictated and finalized at location M. CIATE PRODUCT MANAGER Impression: No significant abnormality is seen.
--- NOTE | ~2024-10-09 | CT_ITS ---
CT Facial Bones and Cervical Spine Clinical Indication: Status post fall Technique: Contiguous axial scans were obtained through the facial bones and cervical spine followed by coronal and sagittal reconstructions. Dose reduction technique was used on this scan by utilizing automated exposure control and iterative reconstruction technique. The dose-length product (DLP) was 119.07 mGy-cm. Findings: CT facial bones: There are comminuted bilateral nasal bone fractures. No other fracture or dislocatio n seen in the facial bones. The visualized paranasal sinuses are clear. Intraorbital soft tissues montserrat ear normal. CT cervical spine: No acute fracture. There is minimal grade 1 anterolisthesis of C3 over C4. There i s advanced degenerative disc narrowing at C6-C7. There is mild to moderate degenerative disc change a t the remaining cervical levels. There is probable left facet arthropathy at C2-C3, no renetta canal st enosis or neural foraminal narrowing. There is left neural foraminal narrowing at C3-C4, largely rela clarence to prominent left facet arthropathy and left central to foraminal disc osteophyte complex. Possib le minimal left neural foraminal narrowing at C4-C5. There is disc ossify complex at C5-C6, without f rank canal stenosis, cord compression, or definite neural foraminal narrowing. There is disc ossify c omplex at C6-C7 with probable minimal canal stenosis and bilateral neural foraminal narrowing. No pre vertebral soft tissue swelling. Impression: Comminuted bilateral nasal bone fractures. No fracture or subluxation of the cervical spine. Degenerative spondylosis, as above. Reviewed, dictated and finalized at [facility]. ICAL LABORATORY SERVICE TEACHER Impression: Comminuted bilateral nasal bone fractures. No fracture or subluxation of the cervical spine. Degenerative spondylosis, as above.
--- NOTE | ~2024-10-09 | XR_ITS ---
Portable chest x-ray Comparison: 10/03/2024 Clinical History: Status post fall Findings: Lungs are clear, without focal consolidation or pleural effusion. Possible mild chronic in terstitial disease or COPD. Cardiomediastinal silhouette is stable. Bones and soft tissues are unrem arkable. Impression: Suspected COPD and/or chronic interstitial disease. No acute abnormality evident. Reviewed, dictated and finalized at location . GER LATIN Impression: Suspected COPD and/or chronic interstitial disease. No acute abnormality eviden t.
--- NOTE | ~2024-10-09 | CT_ITS ---
CT head without contrast Indication: Status post fall COMPARISON: 08/15/2024 Technique: Serial scans were obtained through the brain without the administration of contrast. Dose reduction technique was used on this scan by utilizing automated exposure control and iterative recon struction technique. The dose-length product (DLP) was 681.00 mGy-cm. Findings: There is no evidence of intracranial hemorrhage, mass lesion, or acute infarct. Stable chronometer assembler telma infarct in the left basal ganglia region. The ventricles and subarachnoid spaces are dilated, con sistent with mild atrophy. Low attenuation regions are seen within the periventricular white matter bilaterally, likely representing changes from chronic microvascular ischemic disease. There is no arron dence of edema, mass effect or midline shift. The visualized paranasal sinuses and mastoid air cell s are clear. Impression: No intracranial hemorrhage, mass, or acute infarct. Chronic left basal ganglia infarct. Atrophy and chronic white matter changes, as above. Reviewed, dictated and finalized at location . ER STITCHER OPERATOR Impression: No intracranial hemorrhage, mass, or acute infarct. Chronic left basal ganglia infarct. Atrophy and chronic white matter changes, as above.
[2024-10-09 22:18] VITALS: BP 154/81; PULSE 76; RESP 18; TEMP 37.3; O2SAT 100
[2024-10-09 22:30] VITALS: PULSE 73; RESP 16; O2SAT 96
--- NOTE | 2024-10-09 22:55 | ED.FALL ---
HPI - Fall General Chief Complaint: Fall Stated Complaint: fall Time Seen by Provider: 10/09/24 22:31 Source: patient, EMS and RN notes reviewed Mode of arrival: EMS History of Present Illness HPI Narrative: Patient presents after an unwitnessed ground level fall from retirement. Reportedly denied loss of consciousness or anticoagulation. She denies any neck pain. Patient states she remembers the fall but is otherwise minimally participatory in history. Medication list from nursing facility is reviewed and does not show any anticoagulation medications. Related Data Home Medications Medication Instructions Recorded Confirmed escitalopram oxalate 5 mg tablet 5 mg PO DAILY 08/21/21 10/05/24 trazodone 100 mg tablet 150 mg PO HS 08/21/21 10/05/24 glucagon HCl 1 mg solution for 1 mg subcut Q20M PRN Hypoglycemia 02/13/22 10/05/24 injection (Glucagon (HCl) Emergency Kit) sodium chloride 0.65 % nasal spray 1 spray intranasal BID PRN Dry 02/13/22 10/05/24 aerosol (Saline Mist) Nasal Passages hydroxyzine HCl 25 mg tablet 50 mg PO Q8H PRN Itching 08/25/22 10/05/24 acetaminophen 500 mg tablet 1,000 mg PO BID PRN Pain (Scale 09/14/22 10/05/24 Score 1-3) atorvastatin 40 mg tablet 40 mg PO HS 01/22/23 10/05/24 gabapentin 600 mg tablet 200 mg PO TID 01/22/23 10/05/24 cholecalciferol (vitamin D3) 1,250 1,250 mcg PO WEEKLY 12/15/23 10/05/24 mcg (50,000 unit) tablet lamotrigine 150 mg tablet 150 mg PO Q12H 05/17/24 10/05/24 furosemide 20 mg tablet 20 mg PO DAILY 08/16/24 10/05/24 lactulose 10 gram/15 mL oral 30 g PO QID 08/16/24 10/05/24 solution vitamins A,C,T-odhe-lrbstj 4,296 1 cap PO DAILY 08/16/24 10/05/24 mcg-226 mg-90 mg capsule (PreserVision AREDS) camphor-menthol 0.5 %-0.5 % lotion 1 applic topical DAILY PRN pruritis 08/22/24 10/05/24 (Sarna Original) clobetasol 0.05 % topical ointment 1 applic topical PRN PRN pruritus 08/22/24 10/05/24 ketoconazole 2 % topical cream 1 applic topical BID PRN Rash 08/22/24 10/05/24 alprazolam 0.25 mg tablet 0.25 mg PO BID PRN Anxiety 09/06/24 10/05/24 spironolactone 50 mg tablet 50 mg PO DAILY 09/06/24 10/05/24 Allergies Allergy/AdvReac Type Severity Reaction Status Date / Time alendronate sodium Allergy Unknown Verified 09/02/24 09:09 amantadine Allergy Unknown Verified 09/02/24 09:09 benztropine Allergy Other Verified 09/02/24 09:09 chlorpromazine Allergy Unknown Verified 09/02/24 09:09 levofloxacin Allergy Unknown Verified 09/02/24 09:09 Macrolide Antibiotics Allergy Unknown Verified 09/02/24 09:09 mirtazapine Allergy Unknown Verified 09/02/24 09:09 Quinolones Allergy Unknown Verified 09/02/24 09:09 topiramate Allergy Unknown Verified 09/02/24 09:09 [facility] Past Medical History Medical History Anxiety Aortic stenosis Moderate on echocardiogram in November 2021. Arthritis Asthma Bipolar disorder Cerebrovascular accident Chronic anemia Chronic kidney disease, stage 4 (severe) Chronic obstructive pulmonary disease PFTs 06/28/2021: Moderate obstructive abnormality, moderate decreased diffusion capacity. 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 Moreno History of partial hysterectomy History of thyroidectomy History of tonsillectomy Family History Family History Sibling Multiple sclerosis Father Acute myocardial infarction, Onset Age: 79 Cerebrovascular accident, Onset Age: 79 Mother Dementia Sibling Acute myocardial infarction, Onset Age: 65 Son Diabetes mellitus Other Depression Family history of arthritis Family history of elevated blood lipids Family history of thyroid disease Hypertension Social History Social History Social History: Surrogate medical decision maker: Gavino Sigala (son). Code status: Do not resuscitate. Smoking packs per day: 1 Smoking cigarettes per day: 20.0 Years smoked: 50 Smoking pack-years: 50.00 Smoking status: Former smoker Tobacco type: cigarettes Second hand tobacco smoke exposure: No Smoking end date: 11/30/18 Alcohol intake: never Substance use: never Substance use type: does not use Do You Feel Safe in your Home?: Yes Lack of Transportation: No Lack of Food: Never True Current Housing: I Have Housing Concerned About Future Housing: No Difficulty Paying Gas/Electric Bills: No Difficulty Paying for Meds: YES Currently Unemployed: No Education: High School Diploma/GED Difficulty w/ Childcare or Family Care: No Living arrangements: retirement Additional living arrangements comments: with 3 sons. Resident at [facility]. 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 Spiritual care concerns: No Exam Narrative: GENERAL: Well-appearing, well-nourished, and in no acute distress. EYES: Non injected, non icteric. 3mm pupils, PERRL HENT: left naris dried epistaxis , not active bleeding. Slightly friable mucosa along the inner lateral aspect of left naris. No septal hematoma. Dry Mucous membranes. Patient frequently tongue thrusting. No hemotympanum. 1 cm laceration at superior aspect of forehead just below hairline which is superficial for 0.5 cm and slightly deeper for 0.5 cm, bleeding well controlled but with surrounding ecchymosis. 2 superficial lacerations on bridge of nose, bleeding well controlled. Ecchymosis and swelling of nose and into left inferior periorbital area . NECK: Supple. No tenderness palpation of cervical spine which are midline without bony step-off CHEST: Speaking in full sentences. No respiratory distress. HEART: Regular rate and rhythm. . ABDOMEN: Soft, nondistended. EXTREMITIES: Normal range of motion. No lower extremity edema. SKIN: Warm, dry, no rash. NEURO: No focal deficits. Alert and oriented x3. PSYCH: Normal mood and affect. Course Vital Signs Vital signs: Vital Signs Temperature 99.2 F 10/09/24 22:18 Pulse Rate 76 10/09/24 22:18 Respiratory Rate 18 10/09/24 22:18 Blood Pressure 154/81 H 10/09/24 22:18 Pulse Oximetry 100 10/09/24 22:18 Oxygen Delivery Room Air 10/09/24 22:18 Temperature 99.2 F 10/09/24 22:18 Pulse Rate 63 10/10/24 01:46 Respiratory Rate 12 10/10/24 01:46 Blood Pressure 104/44 L 10/10/24 01:46 Pulse Oximetry 97 10/10/24 01:46 Oxygen Delivery Room Air 10/09/24 22:18 Procedures Laceration Laceration 1: Date: 10/09/24 Time: 23:45 Site: other (forehead) Description: linear Depth: simple, single layer Pre-repair: wound explored and irrigated ====== Skin Level ====== Skin layer closed with: dermabond ====== Subcutaneous Layer ====== ====== Muscle Layer ====== ====== Tendon Layer ====== Dressincm in total but 0.5cm superficial and 0.5cm slightly deeper MDM - Fall MDM Narrative Medical decision making narrative: Patient presents after an unwitnessed ground level fall. She has some scattered abrasions and lacerations and ecchymosis on her face. In the emergency department she is afebrile with vital signs notable for mild hypertension. Patient has mild hyperkalemia. Patient has had issues with this previously in the setting of her kidney disease for which creatinine does appear stable today compared to previous per review of the EMR. Will give dextrose as well as renally dosed (i.e. 5U) insulin. Not frankly acidotic but will also give sodium bicarb in addition to calcium gluconate however EKG without peaked T waves (though prolonged QT). Urine unremarkable except for proteinuria. Acutely nasal bone fracture on imaging. Given 1st dose of nasal spray and Augmentin in the emergency department. Patient discharged back to facility with prescriptions for Tylenol, Augmentin, and nasal spray. Provided contact referral information for follow-up with ear nose and throat. Differential Diagnosis Differential diagnosis: Likely syncope and other (Intraparenchymal hemorrhage, subdural hematoma, epidural hematoma; nasal bone fracture; orbital wall fracture; infection; dehydration) Lab Data Attestation: I reviewed the patient's lab results. Lab results narrative: Normocytic anemia and thrombocytopenia both previously seen and chronic/stable 10/09/24 23:47 10/09/24 23:47 Labs: Lab Results 10/09/24 10/10/24 Range/Units 23:47 01:18 WBC 6.3 (4.5-10.0) K/mm3 RBC 2.59 L (4.2-5.4) M/mm3 Hgb 7.8 L (12.0-15.0) g/dL Hct 25.7 L (37.0-47.0) % MCV 99.2 (80-100) fl MCH 30.1 (26-34) pg MCHC 30.4 L (32-36) g/dl RDW 16.0 H (11.5-14.5) % Plt Count 101 L (150-375) k/mm3 MPV 8.9 (7.4-10.4) fl Immature Gran % (Auto) 0.3 (0-0.5) % Neut % (Auto) 81.8 H (45.5-73.1) % Lymph % (Auto) 12.4 L (18.3-44.2) % [place] % (Auto) 3.8 (2.6-8.5) % Eos % (Auto) 1.4 (0-4.4) % Baso % (Auto) 0.3 (0.2-1.2) % Lymph # (Auto) 0.78 L (0.9-3.2) K/mm3 [place] # (Auto) 0.2 (0.1-0.6) K/mm3 Eos # (Auto) 0.1 (0-0.3) K/mm3 Baso # (Auto) 0.0 (0.0-0.1) K/mm3 Abs Immat Gran (auto) 0.02 (0.00-0.031) K/mm3 Absolute Neuts (auto) 5.1 (1.3-6.7) K/mm3 Absolute Nucleated RBC 0.000 (0.0-0.012) K/mm3 Nucleated RBC % 0.0 (0.0-0.2) % % Immature Plt Fraction 1.1 (0.9-11.2) % PT 17.5 H (11.1-14.7) Seconds INR 1.4 Sodium 141 (137-145) mmol/L Potassium 5.2 H (3.4-5.0) mmol/L Chloride 112 H (98-107) mmol/L Carbon Dioxide 18 L (22-30) mmol/L Anion Gap 11 (4-12) mmol/L BUN 26 H (7-17) mg/dL Creatinine 2.20 H (0.7-1.0) mg/dL Estim Creat Clear Calc 14 ml/min Estimated GFR 22 L (59 - ) Glucose 89 (65-110) mg/dL Calcium 8.6 (8.4-10.2) mg/dL Urine Color Yellow (Yellow) Urine Appearance Clear (Clear) Urine pH 5.5 (5.0-9.0) Ur Specific [place] 1.015 (1.001-1.035) Urine Protein 3+ H (Negative) mg/dL Urine Glucose (UA) Negative (Negative) mg/dL Urine Ketones Negative (Negative) mg/dL Ur Blood (Man) Negative (Negative) Urine Nitrate Negative (Negative) Urine Bilirubin Negative (Negative) Urine Urobilinogen 0.2 (<2.0) mg/dL Leukocyte Esterase Rfl Negative (Negative) SCOTT/UL Urine RBC 0-2 (0-2) /hpf Urine WBC 0-5 (0-3) /hpf Ur Squamous Epith Cells None seen (Few) /hpf Urine Bacteria None seen /hpf Urine Casts 3-5 Imaging Data Attestation: I personally reviewed and interpreted this imaging study as follows: My impression: Pelvic x-ray negative for acute process on my independent interpretation although possible slight avascular necrosis bilaterally though left greater than right due to slight discontinuity at the femoral head CXR: Cardiomegaly/borderline cardiomegaly on my independent interpretation Radiologist's impression: CT Head STAT RAD: No hemorrhage, hydrocephalus, mass effect, or herniation. Nasal bone fracture. CT Facial STAT RAD: Acute nasal bone fracture. Remaining facial bones are intact CT C-spine STAT RAD: No acute fracture or subluxation. Soft tissue-no hematoma. ECG Data EKG #1: Attestation: I personally reviewed and interpreted this ECG as follows: ECG completion date: 10/09/24 ECG completion time: 23:43 Prior ECG tracings: available for review (10/03/2024 appears similar although T-waves were notably more prominent on this prior EKG) Interpretation: Normal sinus rhythm at a rate of 66 beats per minute. NV interval 187. QRS 165. QT/QTC 476/490. Poor R-wave progression across the precordial leads. Questionable T-wave inversion verses biphasic T-wave in lead 3 but otherwise upright and normal in contiguous inferior leads 2 and AVF. No other T-wave inversions. Discharge Plan Discharge Clinical Impression: Forehead laceration, Fall from ground level, Hyperkalemia, CKD (chronic kidney disease), Normocytic anemia, Thrombocytopenia, Fracture of nasal bone, Proteinuria Patient Disposition: [place] Detention/Asst Living Condition: Stable Instructions: Antibiotic Form, Nasal Fracture (ED), Laceration (DC), Chronic Kidney Disease (ED), Chronic Kidney Disease Diet (DC), Skin Adhesive Care (ED), Anemia (ED) Additional Instructions: No intracranial hemorrhage or fracture of cervical spine. She had mild hyperkalemia but with a normal EKG and we did intervene with medications to address this. For her nasal fracture, patient should be offered pain medication liberally (i.e. acetaminophen). Should also try to enforce nasal precautions which means no blowing nose, taking the course of antibiotics (first dose received in ED), and using saline nasal spray (ok to inhale). Can follow up with ENT in 6-10 days (listed below). Laceration was repaired with Dermabond/skin glue which should flake off over the next week. Prescriptions: New acetaminophen 650 mg tablet extended release 650 mg PO Q8H PRN (Reason: pain) Qty: 20 0RF amoxicillin-pot clavulanate 875-125 mg tablet 1 tablet PO Q12H 7 Days Qty: 14 0RF Saline Nasal Mist 3 % mist 1 spray intranasal TID Qty: 126 0RF No Action hydrocodone-acetaminophen 5-325 mg tablet 1 tablet PO Q4H PRN (Reason: Pain Rated 4-6) Qty: 180 0RF atorvastatin 40 mg tablet 40 mg PO HS melatonin 3 mg Tablet 3 mg PO HS Qty: 10 0RF cholecalciferol (vitamin D3) 1,250 mcg (50,000 unit) Tablet 1,250 mcg PO WEEKLY Rx Instructions: sundays Sarna Original 0.5-0.5 % Lotion 1 applic TOPICAL DAILY PRN (Reason: pruritis) clobetasol 0.05 % ointment 1 applic TOPICAL PRN PRN (Reason: pruritus) Rx Instructions: apply liberally, topical, as needed, mix with ketoconazole 2% and apply to mid upper back. PRN bid ketoconazole 2 % Cream 1 applic TOPICAL BID PRN (Reason: Rash) Rx Instructions: Mix with clobetasol and apply to mid.upper back spironolactone 50 mg tablet 50 mg PO DAILY alprazolam 0.25 mg Tablet 0.25 mg PO BID PRN (Reason: Anxiety) doxycycline hyclate 100 mg Tablet 100 mg PO Q12HR Qty: 2 0RF amoxicillin-pot clavulanate [Augmentin] 500-125 mg Tablet 1 tablet PO Q12HR Qty: 6 0RF insulin glargine [Lantus Solostar U-100 Insulin] 100 unit/mL (3 mL) Insulin Pen 15 unit SUBCUT HS Qty: 3 0RF escitalopram oxalate 5 mg tablet 5 mg PO DAILY trazodone 100 mg tablet 150 mg PO HS acetaminophen 500 mg tablet 1,000 mg PO BID PRN (Reason: Pain (Scale Score 1-3)) Rx Instructions: take 2 tablets by mouth twice daily as needed gabapentin 600 mg tablet 200 mg PO TID lamotrigine 150 mg tablet 150 mg PO Q12H insulin aspart U-100 [Novolog U-100 Insulin aspart] 100 unit/mL Solution 2 - 5 unit subcut ACHS Qty: 20 0RF Protocol: Insulin Corrective Low-Dose Condition: glucose < 70 mg/dl Dose/Route: Follow Hypoglycemia Order Condition: glucose 70-200 mg/dl Dose/Route: No additional insulin Condition: glucose 201-250 mg/dl Dose/Route: 2 units sub-Q Condition: glucose 251-300 mg/dl Dose/Route: 3 units sub-Q Condition: glucose 301-350 mg/dl Dose/Route: 4 units sub-Q Condition: glucose 351-400 mg/dl Dose/Route: 5 units sub-Q Condition: glucose > 400 mg/dl Dose/Route: Call levothyroxine [Synthroid] 150 mcg Tablet 150 mcg PO [id number] Qty: 30 0RF levothyroxine [Synthroid] 150 mcg Tablet 300 mcg PO Doyle@0630 Qty: 16 0RF pantoprazole 40 mg Tablet,Delayed Release (Dr/Ec) 40 mg PO Q12HR Qty: 60 0RF furosemide 20 mg tablet 20 mg PO DAILY lactulose 10 gram/15 mL solution 30 g PO QID PreserVision AREDS 4,296 mcg-226 mg-90 mg Capsule 1 cap PO DAILY isosorbide mononitrate 30 mg Tablet Extended Release 24 Hr 30 mg PO QAM 30 Days Qty: 30 1RF Chewable Iron 30-10-25 mg Tablet,Chewable 1 tablet PO BID Qty: 30 0RF Anoro Ellipta 62.5-25 mcg/actuation blister with device 1 inh inhalation DAILY Qty: 60 2RF Rx Instructions: 1 puff by mouth daily Glucagon (HCl) Emergency Kit 1 mg recon soln 1 mg subcut Q20M PRN (Reason: Hypoglycemia) Rx Instructions: until target blood sugar attained Saline Mist 0.65 % aerosol,spray 1 spray intranasal BID PRN (Reason: Dry Nasal Passages) hydroxyzine HCl 25 mg tablet 50 mg PO Q8H PRN (Reason: Itching) Follow-up/Referrals: Olegario Vaz MD [Physician] - (ear, nose, throat (otolaryngology)) Abril Badillo MD [Primary Care Provider] - Stand Alone Forms: Long Term Discharge Time of Disposition: 01:45
--- NOTE | 2024-10-09 23:26 | ECG_ITS ---
Test Date: 2024-10-09 23:43:22 Measurements Intervals [place] Rate: 66 P: 49 OR: 187 QRS: -68 QRSD: 165 T: 24 QT: 476 QTc: 501 Interpretive Statements SINUS RHYTHM BORDERLINE AV CONDUCTION DELAY RIGHT BUNDLE BRANCH BLOCK LEFT ANTERIOR FASCICULAR BLOCK ABNORMAL ECG Compared to ECG 10/03/2024 19:21:14 NO SIGNIFICANT CHANGE Electronically Signed On 10-10-2024 06:44:50 CEMENT WORKER by George Moyer D.O.
[2024-10-09 23:44] VITALS: BP 154/54; PULSE 66; RESP 17; O2SAT 100
[2024-10-10 00:02] LABS: Basophils Percent Auto 0.3 % (0.2-1.2); Eosinophils Absolute Auto 0.1 K/mm3 (0-0.3); Eosinophils Percent Auto 1.4 % (0-4.4); Hematocrit 25.7 % (37.0-47.0); Hemoglobin 7.8 g/dL (12.0-15.0); Immature Granulocyte Absolute 0.02 K/mm3 (0.00-0.031); Immature Granulocyte Percent A 0.3 % (0-0.5); Immature Platelet Fraction Pct 1.1 % (0.9-11.2); Lymphocytes Absolute Auto 0.78 K/mm3 (0.9-3.2); Lymphocytes Percent Auto 12.4 % (18.3-44.2); Mean Corpuscular HGB Conc 30.4 g/dl (32-36); Mean Corpuscular Hemoglobin 30.1 pg (26-34); Mean Corpuscular Volume 99.2 fl (80-100); Mean Platelet Volume 8.9 fl (7.4-10.4); Monocytes Absolute Auto 0.2 K/mm3 (0.1-0.6); Monocytes Percent Auto 3.8 % (2.6-8.5); Neutrophils Absolute Auto 5.1 K/mm3 (1.3-6.7); Neutrophils Percent Auto 81.8 % (45.5-73.1); Platelet Count Result 101 k/mm3 (150-375); Red Blood Count 2.59 M/mm3 (4.2-5.4); White Blood Count 6.3 K/mm3 (4.5-10.0)
[2024-10-10 00:07] LABS: Anion Gap 11 mmol/L (4-12); Blood Urea Nitrogen 26 mg/dL (7-17); Calcium 8.6 mg/dL (8.4-10.2); Carbon Dioxide 18 mmol/L (22-30); Chloride 112 mmol/L (98-107); Estimated CRCL calculation 14 ml/min; Estimated Glomerular Filt Rate 22; Glucose 89 mg/dL (65-110); Potassium 5.2 mmol/L (3.4-5.0); Sodium 141 mmol/L (137-145)
[2024-10-10 00:10] LABS: INR 1.4; Prothrombin Time 17.5 Seconds (11.1-14.7)
[2024-10-10 00:12] VITALS: O2SAT 96
[2024-10-10 00:15] VITALS: PULSE 67; RESP 15; O2SAT 97
[2024-10-10] MEDS: ACETAMINOPHEN 500 MG TABLET 1000 MG PO (00:16)
[2024-10-10] MEDS: TETANUS,DIPHTHERIA,AC PERTUSSIS ADULT (0.5 ML) BOOSTRIX IM (00:16)
[2024-10-10] MEDS: SODIUM BICARBONATE 8.4% 50 MEQ/50 ML SYRINGE IV PUSH (00:37)
[2024-10-10] MEDS: INSULIN HUMAN REGULAR (*BKC) 100 UNITS/ML IV PUSH (00:38)
[2024-10-10] MEDS: CALCIUM GLUCONATE 1,000 MG/10 ML VIAL 1000 MG IV PUSH (00:38)
[2024-10-10] MEDS: DEXTROSE 50% 25 GM/50 ML SYRINGE IV PUSH (00:38)
[2024-10-10] MEDS: SODIUM CHLORIDE 0.9% IV 100 ML 999 ML (00:39)
[2024-10-10 01:02] VITALS: BP 155/58; PULSE 75; RESP 16; O2SAT 92
[2024-10-10] MEDS: SALINE 0.65% NAS SOLN 44 ML BTL 1 SPRAY NASAL (01:09)
[2024-10-10] MEDS: AMOXICILLIN/CLAVULANATE K 875-125 MG TAB 1 TABLET PO (01:09)
[2024-10-10 01:26] VITALS: BP 159/47; PULSE 65; RESP 16; O2SAT 93
[2024-10-10 01:31] VITALS: BP 113/40; PULSE 65; RESP 13; O2SAT 97
[2024-10-10 01:34] LABS: Add Urine Microscopic? YES; Appearance Urine Clear (Clear); Bacteria Urine None Seen /hpf; Bilirubin Urine Negative (Negative); Blood Urine Negative (Negative); Color Urine Yellow (Yellow); Glucose Urine UA Negative (Negative); Ketones Urine Negative (Negative); Leukocyte Esterase Ur Negative LEU/UL (Negative); Nitrate Urine Negative (Negative); Protein Urine 3+ mg/dL (Negative); RBC Urine 0-2 /hpf (0-2); Specific Grav Ur 1.015 (1.001-1.035); Squamous Epithelial Cell Urine None Seen /hpf (Few); Urobilinogen Urine 0.2 mg/dL (<2.0); WBC Urine 0-5 /hpf (0-3); pH Urine 5.5 (5.0-9.0)
[2024-10-10 01:46] VITALS: BP 104/44; PULSE 63; RESP 12; O2SAT 97
== END 2024-10-10 02:40 ==
PROVIDERS: Emergency Provider Student in an Organized Health Care Education/Training Program; PCP Family Medicine
DX: S01.81XA Laceration without foreign body of other part of head, initial encounter (principal); S02.2XXA Fracture of nasal bones, initial encounter for closed fracture; N18.4 Chronic kidney disease, stage 4 (severe); D64.9 Anemia, unspecified; D69.6 Thrombocytopenia, unspecified; E87.5 Hyperkalemia; R80.9 Proteinuria, unspecified; Z23 Encounter for immunization; I13.0 Hypertensive heart and chronic kidney disease with heart failure and stage 1 through stage 4 chronic kidney disease, or unspecified chronic kidney disease; I50.9 Heart failure, unspecified; E11.22 Type 2 diabetes mellitus with diabetic chronic kidney disease; I35.0 Nonrheumatic aortic (valve) stenosis; J44.9 Chronic obstructive pulmonary disease, unspecified; E11.42 Type 2 diabetes mellitus with diabetic polyneuropathy; E78.5 Hyperlipidemia, unspecified; E89.0 Postprocedural hypothyroidism; K21.9 Gastro-esophageal reflux disease without esophagitis; K58.9 Irritable bowel syndrome, unspecified; K75.81 Nonalcoholic steatohepatitis (NASH); K74.60 Unspecified cirrhosis of liver; M19.90 Unspecified osteoarthritis, unspecified site; M81.0 Age-related osteoporosis without current pathological fracture; Z66 Do not resuscitate; Z96.1 Presence of intraocular lens; Z98.49 Cataract extraction status, unspecified eye; Z86.0100 Personal history of colon polyps, unspecified; Z90.49 Acquired absence of other specified parts of digestive tract; Z90.711 Acquired absence of uterus with remaining cervical stump; I45.2 Bifascicular block; R94.31 Abnormal electrocardiogram [ECG] [EKG]; M47.812 Spondylosis without myelopathy or radiculopathy, cervical region; Z79.4 Long term (current) use of insulin; Z79.899 Other long term (current) drug therapy
CPT/HCPCS: 12011; 36415; 70450; 70486; 71045; 72125; 72170; 80048; 81001; 85025; 85055; 85610; 90471; 90715; 93005; 96361; 96374; 96375; 99284; A9270; J0612; J1815

== ENCOUNTER 2024-11-08 18:43 | Emergency (ER) | payer MEDICARE, MEDICAID, SELFPAY ==
[2024-11-08] VITALS (13 sets, daily range): BP systolic 123–148; BP diastolic 54–65; PULSE 71–79; RESP 12–20; TEMP 36.4–37.2; O2SAT 90–100
--- NOTE | ~2024-11-08 | CT_ITS ---
Clinical Indication: Fever, shortness of breath, abdominal distention CT Scan of the Chest, Abdomen, and Pelvis without Contrast: Technique: Contiguous sections were acquired throughout the chest, abdomen, and pelvis without IV con trast administration. Dose reduction technique was used on this scan by utilizing automated exposure control and iterative reconstruction technique. The dose-length product (DLP) was 433.33 mGy-cm. Comparison: 09/06/2024 Findings: There is no evidence of any significant mediastinal, hilar or axillary lymphadenopathy. Extensive cor onary artery calcifications are present. There is no evidence of pleural or pericardial effusion. The lungs are clear. No pulmonary nodules or infiltrates are noted. Diffusely nodular contour of liver is compatible with sclerotic change. Cholecystectomy clips are pre sent. No focal hepatic mass evident on noncontrast exam. Spleen upper limits of normal in size. The p ancreas, adrenals and kidneys are within normal limits. There are atherosclerotic calcifications of t he aorta. No lymphadenopathy. No bowel obstruction or bowel wall thickening. There is no evidence to suggest acute appendicitis. Urinary bladder is unremarkable. Probable status post hysterectomy. No pelvic mass seen. Trace pelvic ascites. Impression: Cirrhotic morphology of the liver with associated borderline to mild splenomegaly. Trace pelvic ascites. No significant abnormality seen in the chest. Reviewed, dictated and finalized at location . NCE PROFESSOR Impression: Cirrhotic morphology of the liver with associated borderline to mild splenomega ly. Trace pelvic ascites. No significant abnormality seen in the chest.
--- NOTE | ~2024-11-08 | CT_ITS ---
CT head without contrast Indication: Altered mental status COMPARISON: 10/09/2024 Technique: Serial scans were obtained through the brain without the administration of contrast. Dose reduction technique was used on this scan by utilizing automated exposure control and iterative recon struction technique. The dose-length product (DLP) was 681.00 mGy-cm. Findings: There is no evidence of intracranial hemorrhage, mass lesion, or acute infarct. The ventri cles and subarachnoid spaces are dilated, consistent with mild atrophy. Low attenuation regions are seen within the periventricular white matter bilaterally, likely representing changes from chronic mi crovascular ischemic disease. There is no evidence of edema, mass effect or midline shift. The visu alized paranasal sinuses and mastoid air cells are clear. Impression: No intracranial hemorrhage, mass, or acute infarct. Atrophy and chronic white matter changes, as above. Reviewed, dictated and finalized at [facility]. RAL DIRECTOR/EMBALMER Impression: No intracranial hemorrhage, mass, or acute infarct. Atrophy and chronic white matter changes, as above.
--- NOTE | ~2024-11-08 | XR_ITS ---
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 RESULT: Lines, tubes, and devices: Cholecystectomy clips. Lungs and pleura: Mild diffuse reticular opacities. Cardiomediastinal silhouette: Stable. Other: No acute osseous or upper abdominal finding. IMPRESSION: Mild interstitial edema versus chronic interstitial lung disease. Reviewed, dictated and finalized at location K. UI DESIGNER
--- NOTE | 2024-11-08 22:27 | ECG_ITS ---
Test Date: 2024-11-08 22:38:21 Measurements Intervals [place] Rate: 72 P: 10 [place]: 174 QRS: -69 QRSD: 150 T: 37 QT: 427 QTc: 468 Interpretive Statements SINUS RHYTHM INTRAVENTRICULAR CONDUCTION DELAY [130+ ms QRS DURATION] Compared to ECG 10/09/2024 23:43:22 Intraventricular conduction delay now present Right bundle-branch block no longer present Left anterior fascicular block no longer present Electronically Signed On 11-09-2024 18:49:02 PHARMACEUTICAL SPECIALTY REPRESENTATIVE by Leonardo Vidales
--- NOTE | 2024-11-08 22:39 | ED.AMS ---
HPI - Altered Mental Status General Chief Complaint: Altered Mental Status Stated Complaint: fever, altered mental status Time Seen by Provider: 11/08/24 22:15 Source: patient, EMS and RN notes reviewed Mode of arrival: EMS Limitations: dementia History of Present Illness HPI narrative: patient presents from facility complaint that she has been more altered although at baseline she is alert but with very limited orientation secondary to dementia. The concern was that she was unable to answer questions that she usually can. there was also report that she had been febrile short of breath. Related Data Home Medications ?Medication ?Instructions ?Recorded ?Confirmed ?Last Taken ?Type escitalopram oxalate 5 mg tablet 5 mg PO DAILY 08/21/21 11/09/24 11/09/24 History glucagon HCl 1 mg solution for 1 mg subcut Q20M PRN Hypoglycemia 02/13/22 11/09/24 Unknown History injection (Glucagon (HCl) Emergency Kit) sodium chloride 0.65 % nasal spray 1 spray intranasal BID PRN Dry 02/13/22 11/09/24 11/08/24 History aerosol (Saline Mist) Nasal Passages hydroxyzine HCl 25 mg tablet 50 mg PO Q8H PRN Itching 08/25/22 11/09/24 11/08/24 History acetaminophen 500 mg tablet 1,000 mg PO BID PRN Pain (Scale 09/14/22 11/09/24 11/08/24 History Score 1-3) atorvastatin 40 mg tablet 40 mg PO HS 01/22/23 11/09/24 11/08/24 History gabapentin 600 mg tablet 100 mg PO TID 01/22/23 11/09/24 11/09/24 History cholecalciferol (vitamin D3) 1,250 1,250 mcg PO WEEKLY 12/15/23 11/09/24 11/06/24 History mcg (50,000 unit) tablet lamotrigine 150 mg tablet 100 mg PO Q12H 05/17/24 11/09/24 11/09/24 History furosemide 20 mg tablet 20 mg PO DAILY 08/16/24 11/09/24 11/08/24 History lactulose 10 gram/15 mL oral 30 g PO QID 08/16/24 11/09/24 11/08/24 History solution vitamins A,C,I-xsrm-wsqkdj 4,296 1 cap PO DAILY 08/16/24 11/09/24 11/08/24 History mcg-226 mg-90 mg capsule (PreserVision AREDS) camphor-menthol 0.5 %-0.5 % lotion 1 applic topical DAILY PRN pruritis 08/22/24 11/09/24 11/08/24 History (Sarna Original) clobetasol 0.05 % topical ointment 1 applic topical PRN PRN pruritus 08/22/24 11/09/24 11/08/24 History ketoconazole 2 % topical cream 1 applic topical BID PRN Rash 08/22/24 11/09/24 Unknown History lorazepam 0.5 mg tablet 0.5 mg PO BID 11/09/24 11/09/24 11/08/24 History morphine concentrate 100 mg/5 mL 5 mg PO Q6H PRN pain 11/09/24 11/09/24 11/07/24 History (20 mg/mL) oral solution ondansetron 4 mg disintegrating 4 mg translingual TID PRN nausea 11/09/24 11/09/24 10/14/24 History tablet and vomiting Allergies Allergy/AdvReac Type Severity Reaction Status Date / Time alendronate sodium Allergy Unknown Verified 10/13/24 11:52 amantadine Allergy Unknown Verified 10/13/24 11:52 benztropine Allergy Other Verified 10/13/24 11:52 chlorpromazine Allergy Unknown Verified 10/13/24 11:52 levofloxacin Allergy Unknown Verified 10/13/24 11:52 Macrolide Antibiotics Allergy Unknown Verified 10/13/24 11:52 mirtazapine Allergy Unknown Verified 10/13/24 11:52 Quinolones Allergy Unknown Verified 10/13/24 11:52 topiramate Allergy Unknown Verified 10/13/24 11:52 [facility] Past Medical History Medical History Chronic anemia Gastritis History of infection due to ESBL Escherichia coli Cerebrovascular accident 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 Frequent falls 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 Diabetic peripheral neuropathy Aortic stenosis Moderate on echocardiogram in November 2021. Osteoporosis Arthritis Asthma Bipolar disorder Anxiety Depression Hypertension Hypothyroidism Surgical History Surgical History History of bladder surgery History of cataract extraction with lens replacement History of section History of cholecystectomy History of colonoscopy with polypectomy Most recent colonoscopy 01/2019 demonstrated colon spasm and diverticulosis performed by Dr. Moreno History of partial hysterectomy History of thyroidectomy History of tonsillectomy Family History Family History Sibling Multiple sclerosis Father Acute myocardial infarction, Onset Age: 79 Cerebrovascular accident, Onset Age: 79 Mother Dementia Sibling Acute myocardial infarction, Onset Age: 65 Son Diabetes mellitus Other Depression Family history of arthritis Family history of elevated blood lipids Family history of thyroid disease Hypertension Social History Social History Social History: Surrogate medical decision maker: Gavino Zakiya (son). Code status: Do not resuscitate. Smoking packs per day: 1 Smoking cigarettes per day: 20.0 Years smoked: 50 Smoking pack-years: 50.00 Smoking status: Never smoker Tobacco type: cigarettes Second hand tobacco smoke exposure: No Smoking end date: 11/30/18 Alcohol intake: never Substance use: never Substance use type: does not use Do You Feel Safe in your Home?: Yes Lack of Transportation: No Lack of Food: Never True Current Housing: I Have Housing Concerned About Future Housing: No Difficulty Paying Gas/Electric Bills: No Difficulty Paying for Meds: No Currently Unemployed: No Education: Decline to Answer Difficulty w/ Childcare or Family Care: No Living arrangements: penitentiary Additional living arrangements comments: with 3 sons. Resident at [facility]. 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 Spiritual care concerns: No Exam Narrative: GENERAL: Well-appearing, well-nourished, and in no acute distress. HEAD: Normocephalic, atraumatic. EYES: Non injected, non icteric ENT: Nares clear, no rhinorrhea or epistaxis. Dry tongue mucous membranes. NECK: Supple. CHEST: Speaking in full sentences. No respiratory distress. HEART: Regular rate and rhythm. . ABDOMEN: Soft, distended But otherwise not tender to palpation without rigidity or guarding. Not peritoneal. EXTREMITIES: Normal range of motion. No lower extremity edema. SKIN: Warm, dry, no rash. Well-healed scar on forehead from previous laceration. NEURO: No focal deficits. Alert and oriented To self. PSYCH: Normal mood and affect. Course Vital Signs Vital signs: Vital Signs Temperature 97.9 F 11/08/24 19:25 Pulse Rate 79 11/08/24 19:25 Respiratory Rate 15 11/08/24 19:25 Blood Pressure 123/54 L 11/08/24 19:25 Pulse Oximetry 96 11/08/24 19:25 Oxygen Delivery Room Air 11/08/24 19:25 Temperature 97.5 F L 11/09/24 06:22 Pulse Rate 59 L 11/09/24 06:22 Respiratory Rate 16 11/09/24 06:22 Blood Pressure 163/52 H 11/09/24 06:22 Pulse Oximetry 98 11/09/24 06:22 Oxygen Delivery Room Air 11/08/24 22:38 MDM - Altered Mental Status MDM Narrative Medical decision making narrative: patient presents with report of altered mental status from baseline which is alert but with limited orientation secondary to her dementia. There is also report of fever and shortness of breath. It was reported the patient was febrile although unclear this came from as the temperature documented on her penitentiary paperwork with 98.6 F. In the emergency department she is afebrile with vital signs notable for mildly low diastolic blood pressure however on repeat this has resolved she now has a slightly elevated systolic blood pressure; in general, acceptable/stable vital signs. Patient does appear slightly dehydrated as she has dry mucous membranes /tongue. IV fluids given. Normocytic anemia thrombocytopenia, Both stable. patient's baseline creatinine is 2.1-2.5 and is 2.9 today thus reflects YASSINE superimposed on CKD. IV fluids have already been given. She has transaminitis which has previously been seen. CT without acute process. Vital signs remain stable. Will discharge back to facility. Differential Diagnosis Differential diagnosis: Likely altered mental status, dementia, hypoglycemia, hyponatremia, sepsis and other ( pneumonia, urinary tract infection, intra-abdominal pathologies such as abscess, small-bowel perforation, constipation) Lab Data Attestation: I reviewed the patient's lab results. 11/08/24 22:46 11/08/24 22:46 Labs: Lab Results 11/08/24 11/08/24 Range/Units 22:46 23:41 WBC 7.0 (4.5-10.0) K/mm3 RBC 3.86 L (4.2-5.4) M/mm3 Hgb 11.1 L (12.0-15.0) g/dL Hct 36.7 L (37.0-47.0) % MCV 95.1 (80-100) fl MCH 28.8 (26-34) pg MCHC 30.2 L (32-36) g/dl RDW 14.4 (11.5-14.5) % Plt Count 128 L (150-375) k/mm3 MPV 10.1 (7.4-10.4) fl Immature Gran % (Auto) 0.3 (0-0.5) % Neut % (Auto) 65.5 (45.5-73.1) % Lymph % (Auto) 21.0 (18.3-44.2) % [place] % (Auto) 7.4 (2.6-8.5) % Eos % (Auto) 5.2 H (0-4.4) % Baso % (Auto) 0.6 (0.2-1.2) % Lymph # (Auto) 1.47 (0.9-3.2) K/mm3 [place] # (Auto) 0.5 (0.1-0.6) K/mm3 Eos # (Auto) 0.4 H (0-0.3) K/mm3 Baso # (Auto) 0.0 (0.0-0.1) K/mm3 Abs Immat Gran (auto) 0.02 (0.00-0.031) K/mm3 Absolute Neuts (auto) 4.6 (1.3-6.7) K/mm3 Absolute Nucleated RBC 0.000 (0.0-0.012) K/mm3 Nucleated RBC % 0.0 (0.0-0.2) % PT 15.8 H (11.1-14.7) Seconds INR 1.2 APTT 31.8 (22.3-36.8) Seconds Sodium 141 (137-145) mmol/L Potassium 5.0 (3.4-5.0) mmol/L Chloride 112 H (98-107) mmol/L Carbon Dioxide 20 L (22-30) mmol/L Anion Gap 9 (4-12) mmol/L BUN 27 H (7-17) mg/dL Creatinine 2.90 H (0.7-1.0) mg/dL Estim Creat Clear Calc 10 ml/min Estimated GFR 16 L (59 - ) Glucose 88 (65-110) mg/dL Calcium 9.3 (8.4-10.2) mg/dL Total Bilirubin 0.7 (0.2-1.3) mg/dL AST 51 H (14-36) U/L ALT 39 H (6-35) U/L Alkaline Phosphatase 535 H (38-126) U/L Total Protein 7.0 (6.3-8.2) g/dL Albumin 4.2 (3.5-5.1) g/dL Lipase 60 (23-300) U/L Urine Color Yellow (Yellow) Urine Appearance Clear (Clear) Urine pH 5.0 (5.0-9.0) Ur Specific [place] 1.016 (1.001-1.035) Urine Protein 2+ H (Negative) mg/dL Urine Glucose (UA) Negative (Negative) mg/dL Urine Ketones Negative (Negative) mg/dL Ur Blood (Man) Negative (Negative) Urine Nitrate Negative (Negative) Urine Bilirubin Negative (Negative) Urine Urobilinogen 0.2 (<2.0) mg/dL Leukocyte Esterase Rfl Negative (Negative) SCOTT/UL Urine RBC 0-2 (0-2) /hpf Urine WBC 0-5 (0-3) /hpf Ur Squamous Epith Cells None seen (Few) /hpf Urine Bacteria None seen /hpf Urine Casts 3-5 Influenza A (RT-PCR) Negative (Negative) Influenza B (RT-PCR) Negative (Negative) RSV (RT-PCR) Negative (Negative) SARS-CoV-2 RNA (RT-PCR) Negative (Negative) Imaging Data Radiologist's impression: CT HEad: No acute intracranial hemorrhage. no midline shift or mass effect. The territorial valdivia-white matter differentiation is maintained throughout. Age-related cerebral volume loss. Periventricular and subcortical white matter hypoattenuation. Consistent with chronic microangiopathy. CT Chest/Abd/Pelvis Stat Rad: No pulmonary contusion or pneumothorax. No acute fractures. No traumatic visceral injury. No acute fractures. Diverticulosis, without acute diverticulitis. No bowel obstruction. No free air. ECG Data EKG #1: Attestation: I personally reviewed and interpreted this ECG as follows: ECG completion date: 11/08/24 ECG completion time: 22:38 Interpretation: Normal sinus rhythm at a rate of 72 beats per minute. DE interval 174. QRS 150. QT/QTC 427/451. Poor R-wave progression across the precordial leads. Significant artifact limits well interpretation especially at the lateral precordial leads. No T-wave inversions. Discharge Plan Discharge Clinical Impression: Thrombocytopenia, Normocytic anemia, Acute kidney injury superimposed on CKD, Transaminitis Altered mental status Qualifiers: Altered mental status type: somnolence Qualified Code(s): R40.0 - Somnolence Patient Disposition: NH Longterm/Asst Living Condition: Stable Instructions: Antibiotic Form, Acute Kidney Injury (DC), Chronic Kidney Disease (ED), Chronic Kidney Disease Diet (DC), Altered Mental Status (ED), Anemia (ED), Thrombocytopenia (ED), Transaminitis (ED) Additional Instructions: No clear cause of patient's symptoms. Her labs are all stable from previous and her vital signs have been as well. 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 Return to the emergency department with any new or worsening symptoms. Patient Language: New Zealander Prescriptions: No Action hydrocodone-acetaminophen 5-325 mg tablet 1 tablet PO Q4H PRN (Reason: Pain Rated 4-6) Qty: 180 0RF atorvastatin 40 mg tablet 40 mg PO HS melatonin 3 mg Tablet 3 mg PO HS Qty: 10 0RF cholecalciferol (vitamin D3) 1,250 mcg (50,000 unit) Tablet 1,250 mcg PO WEEKLY Rx Instructions: sundays Sarna Original 0.5-0.5 % Lotion 1 applic TOPICAL DAILY PRN (Reason: pruritis) clobetasol 0.05 % ointment 1 applic TOPICAL PRN PRN (Reason: pruritus) Rx Instructions: apply liberally, topical, as needed, mix with ketoconazole 2% and apply to mid upper back. PRN bid ketoconazole 2 % Cream 1 applic TOPICAL BID PRN (Reason: Rash) Rx Instructions: Mix with clobetasol and apply to mid.upper back insulin glargine [Lantus Solostar U-100 Insulin] 100 unit/mL (3 mL) Insulin Pen 15 unit SUBCUT HS Qty: 3 0RF escitalopram oxalate 5 mg tablet 5 mg PO DAILY acetaminophen 500 mg tablet 1,000 mg PO BID PRN (Reason: Pain (Scale Score 1-3)) Rx Instructions: take 2 tablets by mouth twice daily as needed gabapentin 600 mg tablet 100 mg PO TID lamotrigine 150 mg tablet 100 mg PO Q12H insulin aspart U-100 [Novolog U-100 Insulin aspart] 100 unit/mL Solution 2 - 5 unit subcut ACHS Qty: 20 0RF Protocol: Insulin Corrective Low-Dose Condition: glucose < 70 mg/dl Dose/Route: Follow Hypoglycemia Order Condition: glucose 70-200 mg/dl Dose/Route: No additional insulin Condition: glucose 201-250 mg/dl Dose/Route: 2 units sub-Q Condition: glucose 251-300 mg/dl Dose/Route: 3 units sub-Q Condition: glucose 301-350 mg/dl Dose/Route: 4 units sub-Q Condition: glucose 351-400 mg/dl Dose/Route: 5 units sub-Q Condition: glucose > 400 mg/dl Dose/Route: Call levothyroxine [Synthroid] 150 mcg Tablet 150 mcg PO [id number] Qty: 30 0RF levothyroxine [Synthroid] 150 mcg Tablet 300 mcg PO Doyle@0630 Qty: 16 0RF pantoprazole 40 mg Tablet,Delayed Release (Dr/Ec) 40 mg PO Q12HR Qty: 60 0RF furosemide 20 mg tablet 20 mg PO DAILY lactulose 10 gram/15 mL solution 30 g PO QID PreserVision AREDS 4,296 mcg-226 mg-90 mg Capsule 1 cap PO DAILY isosorbide mononitrate 30 mg Tablet Extended Release 24 Hr 30 mg PO QAM 30 Days Qty: 30 1RF Chewable Iron 30-10-25 mg Tablet,Chewable 1 tablet PO BID Qty: 30 0RF Saline Nasal Mist 3 % mist 1 spray intranasal TID Qty: 126 0RF morphine concentrate 100 mg/5 mL (20 mg/mL) solution 5 mg PO Q6H PRN (Reason: pain) lorazepam 0.5 mg tablet 0.5 mg PO BID ondansetron 4 mg tablet,disintegrating 4 mg translingual TID PRN (Reason: nausea and vomiting) Anoro Ellipta 62.5-25 mcg/actuation blister with device 1 inh inhalation DAILY Qty: 60 2RF Rx Instructions: 1 puff by mouth daily Glucagon (HCl) Emergency Kit 1 mg recon soln 1 mg subcut Q20M PRN (Reason: Hypoglycemia) Rx Instructions: until target blood sugar attained Saline Mist 0.65 % aerosol,spray 1 spray intranasal BID PRN (Reason: Dry Nasal Passages) hydroxyzine HCl 25 mg tablet 50 mg PO Q8H PRN (Reason: Itching) Follow-up/Referrals: Abril Badillo MD [Primary Care Provider] - Stand Alone Forms: [facility] Discharge Time of Disposition: 04:17
[2024-11-08 22:53] LABS: Basophils Percent Auto 0.6 % (0.2-1.2); Eosinophils Absolute Auto 0.4 K/mm3 (0-0.3); Eosinophils Percent Auto 5.2 % (0-4.4); Hematocrit 36.7 % (37.0-47.0); Hemoglobin 11.1 g/dL (12.0-15.0); Immature Granulocyte Absolute 0.02 K/mm3 (0.00-0.031); Immature Granulocyte Percent A 0.3 % (0-0.5); Lymphocytes Absolute Auto 1.47 K/mm3 (0.9-3.2); Mean Corpuscular HGB Conc 30.2 g/dl (32-36); Mean Corpuscular Hemoglobin 28.8 pg (26-34); Mean Corpuscular Volume 95.1 fl (80-100); Mean Platelet Volume 10.1 fl (7.4-10.4); Monocytes Absolute Auto 0.5 K/mm3 (0.1-0.6); Monocytes Percent Auto 7.4 % (2.6-8.5); Neutrophils Absolute Auto 4.6 K/mm3 (1.3-6.7); Neutrophils Percent Auto 65.5 % (45.5-73.1); Platelet Count Result 128 k/mm3 (150-375); Red Blood Count 3.86 M/mm3 (4.2-5.4); Red Cell Distribution Width 14.4 % (11.5-14.5)
[2024-11-08 23:07] LABS: INR 1.2; Prothrombin Time 15.8 Seconds (11.1-14.7)
[2024-11-08 23:08] LABS: Partial Thromboplastin Time 31.8 Seconds (22.3-36.8)
[2024-11-08 23:13] LABS: Alanine Aminotransferase 39 U/L (6-35); Albumin Level 4.2 g/dL (3.5-5.1); Alkaline Phosphatase 535 U/L (38-126); Anion Gap 9 mmol/L (4-12); Aspartate Amino Transferase 51 U/L (14-36); Bilirubin,Total 0.7 mg/dL (0.2-1.3); Blood Urea Nitrogen 27 mg/dL (7-17); Calcium 9.3 mg/dL (8.4-10.2); Carbon Dioxide 20 mmol/L (22-30); Chloride 112 mmol/L (98-107); Estimated CRCL calculation 10 ml/min; Estimated Glomerular Filt Rate 16; Glucose 88 mg/dL (65-110); Sodium 141 mmol/L (137-145)
[2024-11-08] MEDS: SODIUM CHLORIDE 0.9% IV 1,000 ML 999 ML IV CONT (23:48)
[2024-11-08 23:55] LABS: Add Urine Microscopic? YES; Appearance Urine Clear (Clear); Bacteria Urine None Seen /hpf; Bilirubin Urine Negative (Negative); Blood Urine Negative (Negative); Color Urine Yellow (Yellow); Glucose Urine UA Negative (Negative); Ketones Urine Negative (Negative); Leukocyte Esterase Ur Negative LEU/UL (Negative); Nitrate Urine Negative (Negative); Protein Urine 2+ mg/dL (Negative); RBC Urine 0-2 /hpf (0-2); Specific Grav Ur 1.016 (1.001-1.035); Squamous Epithelial Cell Urine None Seen /hpf (Few); Urobilinogen Urine 0.2 mg/dL (<2.0); WBC Urine 0-5 /hpf (0-3)
[2024-11-08 23:56] LABS: Lipase 60 U/L (23-300)
[2024-11-09] VITALS (17 sets, daily range): BP systolic 147–163; BP diastolic 46–62; PULSE 59–88; RESP 13–27; TEMP 36.4; O2SAT 96–98
[2024-11-09 00:06] LABS: Influenza A QL RT-PCR Negative (Negative); Influenza B QL RT-PCR Negative (Negative); RSV RNA, RT-PCR Negative (Negative); SARS-CoV-2 RNA PCR Negative (Negative)
--- NOTE | 2024-11-09 04:10 | PC.NURSE ---
NH updated at this time on patient status.
== END 2024-11-09 06:23 ==
PROVIDERS: Emergency Provider Student in an Organized Health Care Education/Training Program; PCP Family Medicine
DX: D69.6 Thrombocytopenia, unspecified (principal); D64.9 Anemia, unspecified; N17.9 Acute kidney failure, unspecified; R74.01 Elevation of levels of liver transaminase levels; R41.82 Altered mental status, unspecified; Z86.73 Personal history of transient ischemic attack (TIA), and cerebral infarction without residual deficits; Z79.4 Long term (current) use of insulin; N18.4 Chronic kidney disease, stage 4 (severe); E11.22 Type 2 diabetes mellitus with diabetic chronic kidney disease; I50.9 Heart failure, unspecified; K21.9 Gastro-esophageal reflux disease without esophagitis; E78.5 Hyperlipidemia, unspecified; M81.0 Age-related osteoporosis without current pathological fracture; F41.8 Other specified anxiety disorders; E03.9 Hypothyroidism, unspecified; I13.0 Hypertensive heart and chronic kidney disease with heart failure and stage 1 through stage 4 chronic kidney disease, or unspecified chronic kidney disease; Z20.822 Contact with and (suspected) exposure to COVID-19
CPT/HCPCS: 36415; 70450; 71046; 71250; 74176; 80053; 81001; 83690; 85025; 85610; 85730; 87637; 93005; 96360; 99284; J7030

== ENCOUNTER 2024-11-09 12:09 | Inpatient (IN) | payer MEDICARE, MEDICAID, SELFPAY ==
[2024-11-09] VITALS (30 sets, daily range): BP systolic 95–190; BP diastolic 54–73; PULSE 77–85; RESP 12–20; TEMP 36.6; O2SAT 95–100; BMI 17.4
--- NOTE | ~2024-11-09 | CT_ITS ---
CT head without contrast Indication: Loss of consciousness COMPARISON: 11/08/2024 Technique: Serial scans were obtained through the brain without the administration of contrast. Dose reduction technique was used on this scan by utilizing automated exposure control and iterative recon struction technique. The dose-length product (DLP) was 832.33 mGy-cm. Findings: There is no evidence of intracranial hemorrhage, mass lesion, or acute infarct. The ventri cles and subarachnoid spaces are dilated, consistent with mild atrophy. Low attenuation regions are seen within the periventricular white matter bilaterally, likely representing changes from chronic mi crovascular ischemic disease. There is no evidence of edema, mass effect or midline shift. The visu alized paranasal sinuses and mastoid air cells are clear. Impression: No intracranial hemorrhage, mass, or acute infarct. Atrophy and chronic white matter changes, as above. Reviewed, dictated and finalized at [facility]. ITAL ORDERLY Impression: No intracranial hemorrhage, mass, or acute infarct. Atrophy and chronic white matter changes, as above.
--- NOTE | ~2024-11-09 | MR_ITS ---
MRI of the brain Clinical History: Altered mental status Technique: Axial and sagittal T1-weighted images were acquired. These were followed by axial T2-weigh clarence, diffusion weighted, gradient, and FLAIR images. COMPARISON: 05/18/2022 Findings: There is no acute infarct, intracranial hemorrhage or mass lesion. There is chronic microva scular ischemic change, most prominent in the left frontal periventricular white matter, essentially stable from prior exam. Ventricles and subarachnoid spaces are mildly dilated. Orbits are unremarkable. Paranasal sinuses and mastoid air cells are clear. Major intracranial flow voids are intact. Sagittal midline structures are intact. IMPRESSION: No acute abnormality. Stable chronic microvascular ischemic changes in the periventricular white matter, as detailed above. Reviewed, dictated and finalized at location . ER IMPRESSION: No acute abnormality. Stable chronic microvascular ischemic changes in the periventricular white ivania er, as detailed above.
[2024-11-09 14:12] LABS: Ammonia 13 umol/L (9-30)
[2024-11-09 14:16] LABS: INR 1.4; Prothrombin Time 17.4 Seconds (11.1-14.7)
--- NOTE | 2024-11-09 15:33 | ED.AMS ---
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 Patient just discharged from the ER around 4:00 a.m. this morning. She has been sleeping since that time she was discharged. Upon arrival to the ER patient is arousable. However not much history could be obtained from her. MD complaint: altered mental status Onset (ago): day(s) (1) Timing confirmed by: caregiver Severity: moderate Consistency of symptoms: constant Related Data Home Medications ?Medication ?Instructions ?Recorded ?Confirmed ?Last Taken ?Type escitalopram oxalate 5 mg tablet 5 mg PO DAILY 08/21/21 10/26/24 05/16/24 History trazodone 100 mg tablet 150 mg PO HS 08/21/21 10/26/24 08/15/24 History glucagon HCl 1 mg solution for 1 mg subcut Q20M PRN Hypoglycemia 02/13/22 10/26/24 Unknown History injection (Glucagon (HCl) Emergency Kit) sodium chloride 0.65 % nasal spray 1 spray intranasal BID PRN Dry 02/13/22 10/26/24 12/12/22 08:00 History aerosol (Saline Mist) Nasal Passages hydroxyzine HCl 25 mg tablet 50 mg PO Q8H PRN Itching 08/25/22 10/26/24 08/15/24 History acetaminophen 500 mg tablet 1,000 mg PO BID PRN Pain (Scale 09/14/22 10/26/24 11/06/22 History Score 1-3) atorvastatin 40 mg tablet 40 mg PO HS 01/22/23 10/26/24 05/16/24 History gabapentin 600 mg tablet 200 mg PO TID 01/22/23 10/26/24 05/16/24 22:00 History cholecalciferol (vitamin D3) 1,250 1,250 mcg PO WEEKLY 12/15/23 10/26/24 05/15/24 History mcg (50,000 unit) tablet lamotrigine 150 mg tablet 150 mg PO Q12H 05/17/24 10/26/24 08/15/24 History furosemide 20 mg tablet 20 mg PO DAILY 08/16/24 10/26/24 08/15/24 History lactulose 10 gram/15 mL oral 30 g PO QID 08/16/24 10/26/24 08/15/24 History solution vitamins A,C,P-iqcf-locoeh 4,296 1 cap PO DAILY 08/16/24 10/26/24 08/15/24 History mcg-226 mg-90 mg capsule (PreserVision AREDS) camphor-menthol 0.5 %-0.5 % lotion 1 applic topical DAILY PRN pruritis 08/22/24 10/26/24 Unknown History (Sarna Original) clobetasol 0.05 % topical ointment 1 applic topical PRN PRN pruritus 08/22/24 10/26/24 Unknown History ketoconazole 2 % topical cream 1 applic topical BID PRN Rash 08/22/24 10/26/24 Unknown History alprazolam 0.25 mg tablet 0.25 mg PO BID PRN Anxiety 09/06/24 10/26/24 Unknown History spironolactone 50 mg tablet 50 mg PO DAILY 09/06/24 10/26/24 Unknown History Allergies Allergy/AdvReac Type Severity Reaction Status Date / Time alendronate sodium Allergy Unknown Verified 10/13/24 11:52 amantadine Allergy Unknown Verified 10/13/24 11:52 benztropine Allergy Other Verified 10/13/24 11:52 chlorpromazine Allergy Unknown Verified 10/13/24 11:52 levofloxacin Allergy Unknown Verified 10/13/24 11:52 Macrolide Antibiotics Allergy Unknown Verified 10/13/24 11:52 mirtazapine Allergy Unknown Verified 10/13/24 11:52 Quinolones Allergy Unknown Verified 10/13/24 11:52 topiramate Allergy Unknown Verified 10/13/24 11:52 [facility] Past Medical History Medical History Chronic anemia Gastritis History of infection due to ESBL Escherichia coli Cerebrovascular accident 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 Frequent falls 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 Diabetic peripheral neuropathy Aortic stenosis Moderate on echocardiogram in November 2021. Osteoporosis Arthritis Asthma Bipolar disorder Anxiety Depression Hypertension Hypothyroidism Surgical History Surgical History History of bladder surgery History of cataract extraction with lens replacement History of section History of cholecystectomy History of colonoscopy with polypectomy Most recent colonoscopy 01/2019 demonstrated colon spasm and diverticulosis performed by Dr. Moreno History of partial hysterectomy History of thyroidectomy History of tonsillectomy Family History Family History Sibling Multiple sclerosis Father Acute myocardial infarction, Onset Age: 79 Cerebrovascular accident, Onset Age: 79 Mother Dementia Sibling Acute myocardial infarction, Onset Age: 65 Son Diabetes mellitus Other Depression Family history of arthritis Family history of elevated blood lipids Family history of thyroid disease Hypertension Social History Social History Social History: Surrogate medical decision maker: Gavino Sigala (son). Code status: Do not resuscitate. Smoking packs per day: 1 Smoking cigarettes per day: 20.0 Years smoked: 50 Smoking pack-years: 50.00 Smoking status: Former smoker Tobacco type: cigarettes Second hand tobacco smoke exposure: No Smoking end date: 11/30/18 Alcohol intake: never Substance use: never Substance use type: does not use Do You Feel Safe in your Home?: Yes Lack of Transportation: No Lack of Food: Never True Current Housing: I Have Housing Concerned About Future Housing: No Difficulty Paying Gas/Electric Bills: No Difficulty Paying for Meds: YES Currently Unemployed: No Education: High School Diploma/GED Difficulty w/ Childcare or Family Care: No Living arrangements: skilled nursing Additional living arrangements comments: with 3 sons. Resident at [facility]. Occupation/Education: retired Additional occupation/education comments: Retired from [employer] work. Spiritual care concerns: No Course Course Emergency Course: patient has waxing and waning mental status. Did inform her son who is at bedside about the lab work, CT scan. Cause of her change in mental status is unknown at this time will admit him to the hospital. Vital Signs Vital signs: Vital Signs Temperature 36.6 C 12/11/24 12:20 Pulse Rate 80 11/09/24 12:20 Respiratory Rate 16 11/09/24 12:20 Blood Pressure 95/60 L 11/09/24 12:20 Pulse Oximetry 100 11/09/24 12:20 Oxygen Delivery Room Air 11/09/24 12:20 Temperature 36.6 C 11/09/24 12:20 Pulse Rate 80 11/09/24 14:01 Respiratory Rate 12 11/09/24 14:01 Blood Pressure 139/54 L 11/09/24 14:01 Pulse Oximetry 99 11/09/24 14:01 Oxygen Delivery Room Air 11/09/24 13:52 MDM - Altered Mental Status Differential Diagnosis Differential diagnosis: Likely altered mental status and dementia Medical Records Attestation: I reviewed the patient's medical records. Lab Data Labs: Lab Results 11/09/24 Range/Units 13:46 PT 17.4 H (11.1-14.7) Seconds INR 1.4 Lactic Acid Pending Ammonia 13 (9-30) umol/L Imaging Data Radiologist's impression: ITS Impressions Head CT 11/09/24 13:09 Impression: No intracranial hemorrhage, mass, or acute infarct. Atrophy and chronic white matter changes, as above. Discharge Plan Discharge Clinical Impression: YASSINE (acute kidney injury) Altered mental status Qualifiers: Altered mental status type: somnolence Qualified Code(s): R40.0 - Somnolence Patient Disposition: Still a Patient Condition: Stable Time of Disposition: 15:34
[2024-11-09 15:45] LABS: Glucose Point of Care 81 mg/dl (65-105)
[2024-11-09 16:29] LABS: Alveolar/Arterial O2 Gradient 41.9 mmHg; Base Excess ABG -9.2 mEq/l (+/-2.0); Fractional Inspired Oxygen 21 %; HCO3 ABG 16.4 mEq/l (22.0-26.0); Oxygen Content ABG 12.9 %vol (16.0-22.0); Oxygen Saturation ABG 91.2 % (95.0-100.0); Oxyhemoglobin 91.1 % THb (90.0-100.0); PCO2 ABG 34.8 mmHg (35.0-45.0); PO2 ABG 66.2 mmHg (80.0-100.0); PO2 FiO2 Ratio Arterial Blood 3.15 %
[2024-11-09 16:31] LABS: Device ROOM AIR; Site Drawn LEFT BRACHIAL; pH ABG 7.292 (7.350-7.450)
--- NOTE | 2024-11-09 16:38 | PM.IMHP ---
H&P: HPI History of Present Illness Date/Time: 11/09/24 16:38 Chief Complaint: AMS Narrative: 78-year-old female with history of stroke, chronic obstructive pulmonary disease, hypertension, hyperlipidemia, cirrhosis secondary to fatty liver disease with history of esophageal varices, hepatic encephalopathy, chronic kidney disease, type 2 diabetes mellitus, hypothyroidism, diastolic congestive heart failure, ESBL UTI, presented to the ER from a fdc on account of altered mental status. Patient presented to the ER yesterday with diffuse 1 altered mental status. Evaluation in the ER including CT head, chest x-ray unremarkable. Labs UA unremarkable. Patient will discharge and was told by the time of decreased responsiveness. At bedside patient was alert but confused. Unable to provide history. ABG 7.29/34.8/66.2/16.4, creatinine 2 baseline appears to be 2.2. Lactic acid pending. CT abdomen and chest showed a cirrhotic liver otherwise no concerning findings. CT head unremarkable. Patient's was admitted for further evaluation and care. Review of Systems Review of Systems: Unable to obtain. 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 Frequent falls 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 Diabetic peripheral neuropathy Aortic stenosis Moderate on echocardiogram in November 2021. Osteoporosis Arthritis Asthma Bipolar disorder Anxiety Depression Hypertension Hypothyroidism Surgical History Surgical History History of bladder surgery History of cataract extraction with lens replacement History of section History of cholecystectomy History of colonoscopy with polypectomy Most recent colonoscopy 01/2019 demonstrated colon spasm and diverticulosis performed by Dr. Moreno History of partial hysterectomy History of thyroidectomy History of tonsillectomy Family History Family History Sibling Multiple sclerosis Father Acute myocardial infarction, Onset Age: 79 Cerebrovascular accident, Onset Age: 79 Mother Dementia Sibling Acute myocardial infarction, Onset Age: 65 Son Diabetes mellitus Other Depression Family history of arthritis Family history of elevated blood lipids Family history of thyroid disease Hypertension Social History Social History Social History: Surrogate medical decision maker: Gavino Sigala (son). Code status: Do not resuscitate. Smoking packs per day: 1 Smoking cigarettes per day: 20.0 Years smoked: 50 Smoking pack-years: 50.00 Smoking status: Former smoker Tobacco type: cigarettes Second hand tobacco smoke exposure: No Smoking end date: 11/30/18 Alcohol intake: never Substance use: never Substance use type: does not use Do You Feel Safe in your Home?: Yes Lack of Transportation: No Lack of Food: Never True Current Housing: I Have Housing Concerned About Future Housing: No Difficulty Paying Gas/Electric Bills: No Difficulty Paying for Meds: YES Currently Unemployed: No Education: High School Diploma/GED Difficulty w/ Childcare or Family Care: No Living arrangements: fdc Additional living arrangements comments: with 3 sons. Resident at [facility]. Occupation/Education: retired Additional occupation/education comments: Retired from [employer] work. Spiritual care concerns: No Meds Home Medications and Allergies Home Medications ?Medication ?Instructions ?Recorded ?Confirmed ?Type escitalopram oxalate 5 mg tablet 5 mg PO DAILY 08/21/21 10/26/24 History trazodone 100 mg tablet 150 mg PO HS 08/21/21 10/26/24 History umeclidinium 62.5 mcg-vilanterol 1 inh inhalation DAILY #60 ea 10/15/21 10/26/24 Rx 25 mcg/actuation powdr for inhalation (Anoro Ellipta) glucagon HCl 1 mg solution for 1 mg subcut Q20M PRN Hypoglycemia 02/13/22 10/26/24 History injection (Glucagon (HCl) Emergency Kit) sodium chloride 0.65 % nasal spray 1 spray intranasal BID PRN Dry 02/13/22 10/26/24 History aerosol (Saline Mist) Nasal Passages melatonin 3 mg tablet 3 mg PO HS #10 tabs 07/22/22 10/26/24 Rx hydroxyzine HCl 25 mg tablet 50 mg PO Q8H PRN Itching 08/25/22 10/26/24 History acetaminophen 500 mg tablet 1,000 mg PO BID PRN Pain (Scale 10/16/22 11/27/24 History Score 1-3) atorvastatin 40 mg tablet 40 mg PO HS 01/22/23 10/26/24 History gabapentin 600 mg tablet 200 mg PO TID 01/22/23 10/26/24 History cholecalciferol (vitamin D3) 1,250 1,250 mcg PO WEEKLY 12/15/23 10/26/24 History mcg (50,000 unit) tablet lamotrigine 150 mg tablet 150 mg PO Q12H 05/17/24 10/26/24 History insulin aspart U-100 100 unit/mL 2 - 5 unit subcut ACHS #20 mL 05/21/24 10/26/24 Rx subcutaneous solution (Novolog U-100 Insulin aspart) levothyroxine 150 mcg tablet 150 mcg PO MoTuWeThFrSa@0630 #30 05/21/24 10/26/24 Rx (Synthroid) tabs levothyroxine 150 mcg tablet 300 mcg (2 x 150 mcg) PO Doyle@0630 05/21/24 10/26/24 Rx (Synthroid) #16 tabs pantoprazole 40 mg tablet,delayed 40 mg PO Q12HR #60 tabs 05/21/24 10/26/24 Rx release hydrocodone 5 mg-acetaminophen 325 1 tablet PO Q4H PRN Pain Rated 4-6 06/08/24 10/26/24 Rx mg tablet #180 tabs furosemide 20 mg tablet 20 mg PO DAILY 08/16/24 10/26/24 History lactulose 10 gram/15 mL oral 30 g PO QID 08/16/24 10/26/24 History solution vitamins A,C,C-lawn-lsssmq 4,296 1 cap PO DAILY 08/16/24 10/26/24 History mcg-226 mg-90 mg capsule (PreserVision AREDS) iron,carbonyl 30 mg-vitamin C 10 1 tablet PO BID #30 tabs 08/18/24 10/26/24 Rx mg-FOS 25 mg chewable tablet (Chewable Iron) isosorbide mononitrate 30 mg 30 mg PO QAM 30 days #30 tabs 08/18/24 10/26/24 Rx tablet,extended release 24 hr camphor-menthol 0.5 %-0.5 % lotion 1 applic topical DAILY PRN pruritis 08/22/24 10/26/24 History (Iván Original) clobetasol 0.05 % topical ointment 1 applic topical PRN PRN pruritus 08/22/24 10/26/24 History ketoconazole 2 % topical cream 1 applic topical BID PRN Rash 08/22/24 10/26/24 History alprazolam 0.25 mg tablet 0.25 mg PO BID PRN Anxiety 09/06/24 10/26/24 History spironolactone 50 mg tablet 50 mg PO DAILY 09/06/24 10/26/24 History doxycycline hyclate 100 mg tablet 100 mg PO Q12HR #2 tabs 09/10/24 10/26/24 Rx insulin glargine 100 unit/mL (3 15 unit (0.15 mL) subcut HS #3 mL 09/10/24 10/26/24 Rx mL) subcutaneous pen (Lantus Solostar U-100 Insulin) acetaminophen 650 mg 650 mg PO Q8H PRN pain #20 tabs 10/10/24 10/26/24 Rx tablet,extended release sodium chloride 3 % nasal mist 1 spray intranasal TID #126 mL 10/10/24 10/26/24 Rx (Saline Nasal Mist) Allergies Allergy/AdvReac Type Severity Reaction Status Date / Time alendronate sodium Allergy Unknown Verified 10/13/24 11:52 amantadine Allergy Unknown Verified 10/13/24 11:52 benztropine Allergy Other Verified 10/13/24 11:52 chlorpromazine Allergy Unknown Verified 10/13/24 11:52 levofloxacin Allergy Unknown Verified 10/13/24 11:52 Macrolide Antibiotics Allergy Unknown Verified 10/13/24 11:52 mirtazapine Allergy Unknown Verified 10/13/24 11:52 Quinolones Allergy Unknown Verified 10/13/24 11:52 topiramate Allergy Unknown Verified 10/13/24 11:52 Vital Signs Vital Signs - 24 hr 11/09/24 12:20 11/09/24 12:35 11/09/24 12:36 Temperature 97.8 F Pulse Rate 80 81 80 Respiratory Rate 16 17 15 Blood Pressure 95/60 L 141/62 H Pulse Oximetry 100 98 Oxygen Delivery Room Air 11/09/24 13:05 11/09/24 13:15 11/09/24 13:24 Temperature Pulse Rate 79 78 79 Respiratory Rate 19 14 20 Blood Pressure 140/56 L Pulse Oximetry 98 95 Oxygen Delivery 11/09/24 13:30 11/09/24 13:31 11/09/24 13:52 Temperature Pulse Rate 80 81 Respiratory Rate 15 18 Blood Pressure 142/55 H Pulse Oximetry 100 100 Oxygen Delivery Room Air 11/09/24 13:57 11/09/24 14:00 11/09/24 14:01 Temperature Pulse Rate 78 80 80 Respiratory Rate 13 14 12 Blood Pressure 139/54 L Pulse Oximetry 100 100 99 Oxygen Delivery Exam Narrative: General: alert and confused Eyes: EOMI, PERRLA ENNT External ears normal, Neck is supple, no masses, Respiratory systems: Clear to auscultation Cardiovascular S1, S2, normal rhythm, no murmur, rub, or gallop; no thrill or palpable murmurs on palpation. Gastrointestinal: soft, non-tender, and non-distended abdomen with no masses; BS present Skin: no rash, lesions, ulcerations, subcutaneous nodules or induration Musculoskeletal: no abnormality and no tenderness, normal ROM Neurologic: Alert and confused, not following commands. Assessment and Plan Assessment and plan (1) Acute kidney injury superimposed on CKD: Code(s): N17.9 - Acute kidney failure, unspecified; N18.9 - Chronic kidney disease, unspecified Status: Acute (2) Altered mental status: Qualifiers: Altered mental status type: somnolence Qualified Code(s): R40.0 - Somnolence Code(s): R41.82 - Altered mental status, unspecified Status: Acute Plan Altered mental status Etiology unclear likely from dehydration, rule out stroke. CT head, CT abdomen chest reviewed unremarkable except for cirrhotic liver. Ammonia within normal limits. Stop gabapentin and trazodone. Gentle rehydration MRI brain ordered. Monitor. YASSINE on CKD Creatinine baseline is about 2.2, creatinine today is 2.9, Continue gentle rehydration monitor. Hypoxemia with metabolic acidoosis etiology unclear continue bicarb infusion CT Chest and AP unremarkable lactic acid monitor Liver cirrhosis ammonia within normal limits Continue home lactulose. COPD Continue home bronchodilators. Bipolar disorder Titrate medications with course. DVT prophylaxis subQ heparin. Unable to ascertain code status at this time continue full code for now. Will reassess for cervical decisionmaker. Hospitalist [facility] Advance Care Plan I have confirmed that the patient's Advanced Care Plan is present, code status is documented, or surrogate decision maker is listed in patient medical record.: Yes Medication Reconciliation I have utilized all available resources to obtain, update and review the patients current medications (includes all prescriptions, OTC, herbals, cannabis, and nutritional supplements).: Yes
[2024-11-09 17:01] LABS: Anion Gap 8 mmol/L (4-12); Blood Urea Nitrogen 31 mg/dL (7-17); Calcium 8.8 mg/dL (8.4-10.2); Carbon Dioxide 20 mmol/L (22-30); Chloride 114 mmol/L (98-107); Estimated Glomerular Filt Rate 17; Glucose 84 mg/dL (65-110); Lactic Acid Reflex 0.8 mmol/L (0.7-2.0); Potassium 4.9 mmol/L (3.4-5.0); Sodium 142 mmol/L (137-145)
[2024-11-09] MEDS: SODIUM BICARBONATE 8.4% 100 MEQ in WATER, STERILE FOR INJECTION 1,000 ML IV CONT (17:59)
--- NOTE | 2024-11-09 18:46 | PC.NURSE ---
This patient, Nisha Sigala, was admitted to 3 [facility] Surg Room 325-02. Patient/family oriented to hospital policies and general routines including ID bracelet, bed and alarms, visiting hours, pain management, procedures, bathroom and other care routines, personal items, smoking policy, room service/diet, and visiting hours. Information on how to activate the Rapid Response Team has been discussed. Patient/Family are encouraged to report perceived risks to care and to ask questions if they do not understand what they are told or what they should do.
[2024-11-09] MEDS: hydrALAZINE HCL 20 MG/ML VIAL 10 MG IV PUSH (22:13)
[2024-11-10] VITALS: PULSE 83
[2024-11-10 04:00] VITALS: PULSE 89
[2024-11-10 06:00] VITALS: BP 146/78; PULSE 91; RESP 18; TEMP 36.7; O2SAT 95
[2024-11-10] MEDS: SODIUM BICARBONATE 8.4% 100 MEQ in WATER, STERILE FOR INJECTION 1,000 ML IV CONT (06:31)
[2024-11-10 08:00] VITALS: PULSE 84; PULSE 91; RESP 18; RESP 20; TEMP 36.9; O2SAT 95; O2SAT 98
[2024-11-10 08:27] LABS: Basophils Percent Auto 0.6 % (0.2-1.2); Eosinophils Absolute Auto 0.2 K/mm3 (0-0.3); Eosinophils Percent Auto 3.6 % (0-4.4); Hemoglobin 8.9 g/dL (12.0-15.0); Immature Granulocyte Absolute 0.03 K/mm3 (0.00-0.031); Immature Granulocyte Percent A 0.5 % (0-0.5); Lymphocytes Percent Auto 12.4 % (18.3-44.2); Mean Corpuscular HGB Conc 31.8 g/dl (32-36); Mean Corpuscular Volume 91.2 fl (80-100); Monocytes Absolute Auto 0.3 K/mm3 (0.1-0.6); Neutrophils Percent Auto 77.9 % (45.5-73.1); Platelet Count Result 101 k/mm3 (150-375); Red Blood Count 3.07 M/mm3 (4.2-5.4); Red Cell Distribution Width 14.2 % (11.5-14.5); White Blood Count 6.5 K/mm3 (4.5-10.0)
[2024-11-10 08:46] LABS: Anion Gap 9 mmol/L (4-12); Blood Urea Nitrogen 30 mg/dL (7-17); Calcium 8.6 mg/dL (8.4-10.2); Carbon Dioxide 21 mmol/L (22-30); Chloride 110 mmol/L (98-107); Estimated CRCL calculation 14 ml/min; Estimated Glomerular Filt Rate 22; Glucose 77 mg/dL (65-110); Potassium 4.4 mmol/L (3.4-5.0); Sodium 140 mmol/L (137-145)
[2024-11-10 10:21] LABS: Fractional Inspired Oxygen 21 %; HCO3 ABG 22.2 mEq/l (22.0-26.0); Oxygen Content ABG 12.6 %vol (16.0-22.0); Oxygen Saturation ABG 94.2 % (95.0-100.0); Oxyhemoglobin 92.8 % THb (90.0-100.0); PCO2 ABG 35.5 mmHg (35.0-45.0); PO2 ABG 69.2 mmHg (80.0-100.0); Total Hemoglobin 9.6 g/dL (12.0-18.0); pH ABG 7.414 (7.350-7.450)
[2024-11-10 10:23] LABS: Site Drawn RIGHT RADIAL
[2024-11-10 10:24] LABS: Device ROOM AIR
[2024-11-10] MEDS: IRON SUCROSE COMPLEX 400 MG, IRON SUCROSE COMPLEX 100 MG in SODIUM CHLORIDE 0.9% IV 250 ML 78.57 MG IVPB (10:49)
[2024-11-10 12:36] VITALS: BMI 17.4
[2024-11-10 14:00] VITALS: BP 155/70; PULSE 88; RESP 20; TEMP 36.8; O2SAT 98
--- NOTE | 2024-11-10 14:26 | P.DS_ITS ---
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 Patient presented to the ER yesterday with diffuse 1 altered mental status. Evaluation in the ER including CT head, chest x-ray unremarkable. Labs UA unremarkable. Patient will discharge and was told by the time of decreased responsiveness. At bedside patient was alert but confused. Unable to provide history. ABG 7.29/34.8/66.2/16.4, creatinine 2 baseline appears to be 2.2. Lactic acid pending. CT abdomen and chest showed a cirrhotic liver otherwise no concerning findings. CT head unremarkable. Patient's was admitted for further evaluation and care. MRI brain this morning was unremarkable. Patient was rehydratted with Bicarb infusion, renal resolved to baselien creatinien of 2.2, mental status was back to baseline and oral intake back to baseline. Metabolic acidosis resolved. Gabapentin was held. Patient was therefore discharged back to nursing, will hold Gabapentin until follow up with PCP. Patient will follow up with PCP in 3-5 days Time Spent with Patient Time attestation: Total time spent providing and/or coordinating discharge services: DS: Data Data Completed and Pending Labs on day of discharge: Labs from last 24 hours 11/10/24 11/10/24 11/09/24 10:12 08:18 16:36 WBC 6.5 RBC 3.07 L Hgb 8.9 L Hct 28.0 L MCV 91.2 MCH 29.0 MCHC 31.8 L RDW 14.2 Plt Count 101 L MPV 10.0 Immature Gran % (Auto) 0.5 Neut % (Auto) 77.9 H Lymph % (Auto) 12.4 L [place] % (Auto) 5.0 Eos % (Auto) 3.6 Baso % (Auto) 0.6 Lymph # (Auto) 0.80 L [place] # (Auto) 0.3 Eos # (Auto) 0.2 Baso # (Auto) 0.0 Abs Immat Gran (auto) 0.03 Absolute Neuts (auto) 5.0 Absolute Nucleated RBC 0.000 Nucleated RBC % 0.0 Puncture Site Right radial ABG pH 7.414 ABG pCO2 35.5 ABG pO2 69.2 L ABG PO2/FiO2 Ratio 3.30 ABG HCO3 22.2 ABG O2 Saturation 94.2 L ABG O2 Content 12.6 L ABG Base Excess -2.0 A-a Gradient 38.0 Oxyhemoglobin 92.8 Total Hemoglobin 9.6 L O2 Delivery Device Room air O2 Liters/Min Not Reportable FiO2 21 Sodium 140 142 Potassium 4.4 4.9 Chloride 110 H 114 H Carbon Dioxide 21 L 20 L Anion Gap 9 8 BUN 30 H 31 H Creatinine 2.20 H 2.70 H Estim Creat Clear Calc 14 Not Reportable Estimated GFR 22 L 17 L Glucose 77 84 POC Capillary Glucose Lactic Acid 0.8 Calcium 8.6 8.8 11/09/24 11/09/24 16:23 15:43 WBC RBC Hgb Hct MCV MCH MCHC RDW Plt Count MPV Immature Gran % (Auto) Neut % (Auto) Lymph % (Auto) [place] % (Auto) Eos % (Auto) Baso % (Auto) Lymph # (Auto) [place] # (Auto) Eos # (Auto) Baso # (Auto) Abs Immat Gran (auto) Absolute Neuts (auto) Absolute Nucleated RBC Nucleated RBC % Puncture Site Left brachial ABG pH 7.292 L* ABG pCO2 34.8 L ABG pO2 66.2 L ABG PO2/FiO2 Ratio 3.15 ABG HCO3 16.4 L ABG O2 Saturation 91.2 L ABG O2 Content 12.9 L ABG Base Excess -9.2 A-a Gradient 41.9 Oxyhemoglobin 91.1 Total Hemoglobin 10.0 L O2 Delivery Device Room air O2 Liters/Min 0.0 FiO2 21 Sodium Potassium Chloride Carbon Dioxide Anion Gap BUN Creatinine Estim Creat Clear Calc Estimated GFR Glucose POC Capillary Glucose 81 Lactic Acid Calcium Discharge Plan Discharge Attending physician on discharge: Adan Hawthorne Discharging Clinician: Adan Hawthorne Anticipated Discharge Date/Time: 11/10/24 14:25 Patient Disposition: NH Care Home/Asst Living Activity: as tolerated Diet: as tolerated Patient Instructions: Antibiotic Form Patient Language: [place] Island[place] Stand Alone Forms: General Discharge Information Follow-up/Referrals: Abril Badillo MD [Primary Care Provider] - (F/u with PCP in 3-5 days ) Discharge Medications: Continued hydrocodone-acetaminophen 5-325 mg tablet 1 tablet PO Q4H PRN (Reason: Pain Rated 4-6) Qty: 180 0RF atorvastatin 40 mg tablet 40 mg PO HS melatonin 3 mg Tablet 3 mg PO HS Qty: 10 0RF cholecalciferol (vitamin D3) 1,250 mcg (50,000 unit) Tablet 1,250 mcg PO WEEKLY Rx Instructions: sundays Sarna Original 0.5-0.5 % Lotion 1 applic TOPICAL DAILY PRN (Reason: pruritis) clobetasol 0.05 % ointment 1 applic TOPICAL PRN PRN (Reason: pruritus) Rx Instructions: apply liberally, topical, as needed, mix with ketoconazole 2% and apply to mid upper back. PRN bid ketoconazole 2 % Cream 1 applic TOPICAL BID PRN (Reason: Rash) Rx Instructions: Mix with clobetasol and apply to mid.upper back insulin glargine [Lantus Solostar U-100 Insulin] 100 unit/mL (3 mL) Insulin Pen 15 unit SUBCUT HS Qty: 3 0RF escitalopram oxalate 5 mg tablet 5 mg PO DAILY acetaminophen 500 mg tablet 1,000 mg PO BID PRN (Reason: Pain (Scale Score 1-3)) Rx Instructions: take 2 tablets by mouth twice daily as needed lamotrigine 150 mg tablet 100 mg PO Q12H insulin aspart U-100 [Novolog U-100 Insulin aspart] 100 unit/mL Solution 2 - 5 unit subcut ACHS Qty: 20 0RF Protocol: Insulin Corrective Low-Dose Condition: glucose < 70 mg/dl Dose/Route: Follow Hypoglycemia Order Condition: glucose 70-200 mg/dl Dose/Route: No additional insulin Condition: glucose 201-250 mg/dl Dose/Route: 2 units sub-Q Condition: glucose 251-300 mg/dl Dose/Route: 3 units sub-Q Condition: glucose 301-350 mg/dl Dose/Route: 4 units sub-Q Condition: glucose 351-400 mg/dl Dose/Route: 5 units sub-Q Condition: glucose > 400 mg/dl Dose/Route: Call levothyroxine [Synthroid] 150 mcg Tablet 150 mcg PO [id number] Qty: 30 0RF levothyroxine [Synthroid] 150 mcg Tablet 300 mcg PO [id number] Qty: 16 0RF pantoprazole 40 mg Tablet,Delayed Release (Dr/Ec) 40 mg PO Q12HR Qty: 60 0RF furosemide 20 mg tablet 20 mg PO DAILY lactulose 10 gram/15 mL solution 30 g PO QID PreserVision AREDS 4,296 mcg-226 mg-90 mg Capsule 1 cap PO DAILY isosorbide mononitrate 30 mg Tablet Extended Release 24 Hr 30 mg PO QAM 30 Days Qty: 30 1RF Chewable Iron 30-10-25 mg Tablet,Chewable 1 tablet PO BID Qty: 30 0RF Saline Nasal Mist 3 % mist 1 spray intranasal TID Qty: 126 0RF morphine concentrate 100 mg/5 mL (20 mg/mL) solution 5 mg PO Q6H PRN (Reason: pain) lorazepam 0.5 mg tablet 0.5 mg PO BID ondansetron 4 mg tablet,disintegrating 4 mg translingual TID PRN (Reason: nausea and vomiting) Anoro Ellipta 62.5-25 mcg/actuation blister with device 1 inh inhalation DAILY Qty: 60 2RF Rx Instructions: 1 puff by mouth daily Glucagon (HCl) Emergency Kit 1 mg recon soln 1 mg subcut Q20M PRN (Reason: Hypoglycemia) Rx Instructions: until target blood sugar attained Saline Mist 0.65 % aerosol,spray 1 spray intranasal BID PRN (Reason: Dry Nasal Passages) hydroxyzine HCl 25 mg tablet 50 mg PO Q8H PRN (Reason: Itching) Held gabapentin 600 mg tablet 100 mg PO TID Hold Instructions: Resume on 11/15/24. hold for 1 week, or until follow up with PCP . Date of admission: 11/09/24 15:35 Primary Care Provider: Abril Badillo Admitting Provider: Genna Maldonado Attending physician on admission: Genna Maldonado Condition: Stable
== END 2024-11-10 17:25 | DRG 683 ==
LOC: ANHED 15:34 → ANH3MEDSUR 11-10 14:25
PROVIDERS: Admitting Provider Hospitalist; Emergency Provider Family Medicine; PCP Family Medicine; Visit Provider Internal Medicine
DX: N17.9 Acute kidney failure, unspecified (principal); I13.0 Hypertensive heart and chronic kidney disease with heart failure and stage 1 through stage 4 chronic kidney disease, or unspecified chronic kidney disease; I50.32 Chronic diastolic (congestive) heart failure; I85.10 Secondary esophageal varices without bleeding; I35.0 Nonrheumatic aortic (valve) stenosis; N18.4 Chronic kidney disease, stage 4 (severe); J44.9 Chronic obstructive pulmonary disease, unspecified; K21.9 Gastro-esophageal reflux disease without esophagitis; K74.60 Unspecified cirrhosis of liver; K58.9 Irritable bowel syndrome, unspecified; K75.81 Nonalcoholic steatohepatitis (NASH); E11.22 Type 2 diabetes mellitus with diabetic chronic kidney disease; E11.42 Type 2 diabetes mellitus with diabetic polyneuropathy; E03.9 Hypothyroidism, unspecified; E78.5 Hyperlipidemia, unspecified; M81.0 Age-related osteoporosis without current pathological fracture; M19.90 Unspecified osteoarthritis, unspecified site; R29.6 Repeated falls; F41.9 Anxiety disorder, unspecified; F31.9 Bipolar disorder, unspecified; Z20.822 Contact with and (suspected) exposure to COVID-19; Z86.73 Personal history of transient ischemic attack (TIA), and cerebral infarction without residual deficits; Z87.891 Personal history of nicotine dependence; Z79.4 Long term (current) use of insulin
CPT/HCPCS: 36415; 36600; 70450; 70551; 71046; 71250; 74176; 80048; 80053; 81001; 82140; 82805; 82948; 83605; 83690; 85018; 85025; 85610; 85730; 87637; 92522; 93005; 96360; 97165; 99284; 99285; J0360; J1756; J7030; J7050

== ENCOUNTER 2025-04-26 05:26 | Inpatient (IN) | payer MEDICARE, MEDICAID, SELFPAY ==
[2025-04-26] VITALS (27 sets, daily range): BP systolic 102–194; BP diastolic 50–76; PULSE 71–100; RESP 9–36; TEMP 37.2–37.4; O2SAT 78–100; BMI 23.8
--- NOTE | ~2025-04-26 | CT_ITS ---
Non-contrast Head CT History: Altered mental status COMPARISON: 11/09/2024 Technique: Axial non-contrast imaging of the brain was performed. Dose reduction technique was used on this scan by utilizing automated exposure control and iterative reconstruction technique. The dose -length product (DLP) was 605.33 mGy-cm. Findings: There is no evidence of intracranial hemorrhage, mass lesion, or acute infarct. Brain par enchyma appears normal. The ventricles and subarachnoid spaces are normal in size. The calvarium ap pears normal. The visualized paranasal sinuses and mastoid air cells are clear. Impression: No significant abnormality seen. Reviewed, dictated and finalized at location . Impression: No significant abnormality seen.
--- NOTE | ~2025-04-26 | XR_ITS ---
Portable chest x-ray Comparison: 11/08/2024 Clinical History: Hypoxia Findings: Question of minimal haziness and/or interstitial prominence in the lungs. Cardiomediastin al silhouette is stable. Bones and soft tissues are unremarkable. Impression: COPD and probable minimal chronic interstitial disease. Correlate for mild interstitial edema. Stable cardiomegaly. Reviewed, dictated and finalized at location . Impression: COPD and probable minimal chronic interstitial disease. Correlate for mild inte rstitial edema. Stable cardiomegaly.
--- NOTE | ~2025-04-26 | CT_ITS ---
CLINICAL INDICATION: Altered mental status COMPARISON: 11/08/2024. TECHNIQUE: Multiple contiguous axial images of the chest, abdomen and pelvis were performed without t he administration of intravenous contrast The dose-length product (DLP) was 585.66 mGy-cm. Automated exposure control and iterative reconstruction technique were employed. FINDINGS/OBSERVATIONS: LUNG: Trace bibasilar atelectasis. MEDIASTINUM: Limited evaluation without intravenous contrast. HEART: The heart is enlarged, unchanged, without pericardial effusion. SOFT TISSUES OF THE CHEST: Unremarkable. Liver: The liver demonstrates homogeneous attenuation and is enlarged measuring 22 cm in longitudinal dimens ion. Gallbladder and biliary system: The gallbladder is surgically absent. Pancreas: Limited evaluation of the pancreas secondary to the lack of intravenous contrast. Spleen: The spleen demonstrates homogeneous attenuation and is not enlarged. Kidneys: Scattered 2 and 3 mm nonobstructing calcifications within the parenchyma of the left kidney. The remainder of the bilateral kidneys are otherwise unremarkable, without hydronephrosis or addition al renal calculi. Adrenal glands: Unremarkable. Gastrointestinal tract: Colonic diverticulosis without surrounding inflammatory change. Fecal stasis and air distend the proximal colon. Appendix: The air-filled appendix is of normal caliber (axial series, images 174 through 187). Vasculature: Densely calcified atherosclerotic disease Lymph nodes: Limited evaluation without intravenous contrast. Pelvic structures: The bladder is only minimally distended, and otherwise unremarkable. The uterus is either surgically absent or markedly atrophic. Body wall and musculoskeletal: Age appropriate degenerative disease within the lumbosacral spine with osteophyte formation, disc spa ce narrowing, endplate changes and vacuum phenomena. No acute compression fractures are appreciated. Facet arthropathy is present. No lytic or blastic lesions are noted. IMPRESSION: No acute findings within the chest, abdomen or pelvis. Innumerable nonacute findings, as detailed above. Reviewed, dictated and finalized at location A.
--- NOTE | 2025-04-26 05:41 | ECG_ITS ---
Test Date: 2025-04-26 06:24:37 Measurements Intervals [place] Rate: 92 P: 52 VA: 198 QRS: -79 QRSD: 141 T: 50 QT: 398 QTc: 494 Interpretive Statements SINUS RHYTHM INTRAVENTRICULAR CONDUCTION DELAY [130+ ms QRS DURATION] Compared to ECG 11/08/2024 22:38:21 No significant changes Electronically Signed On 04-26-2025 16:40:03 CDT by Ivanna Gatica M.D.
--- NOTE | 2025-04-26 05:49 | ED_ITS ---
HPI - Altered Mental Status General Chief Complaint: Altered Mental Status Stated Complaint: ams, low o2 Time Seen by Provider: 04/26/25 05:42 History of Present Illness HPI narrative: 79-year-old female with extensive past medical history including CVA, cirrhosis, hepatic encephalopathy episodes, COPD, CKD, bipolar disorder, hyperlipidemia, CHF, ESBL infection UTIs, chronic dyskinesia w/ extra pyramidal symptoms. Patient presents to the emergency department from nursing facility for concerns of altered mental status. Patient was last seen in her normal state of health last night around 7-8 p.m. when she was getting her nightly narcotic pain medications for breakthrough pain. Patient was found this morning sleepy and lethargic and had a low oxygen saturation. They called an ambulance for assistance. EMS provides collateral formation and states that patient is not far from her baseline mentation but she is hypoxic requiring oxygen intervention. Patient herself is not able to provide any collateral formation as she is only alert to her name. EMR and half-way records for additional collateral. Related Data Home Medications ?Medication ?Instructions ?Recorded ?Confirmed ?Last Taken ?Type escitalopram oxalate 5 mg tablet 5 mg PO DAILY 08/21/21 04/26/25 11/09/24 History glucagon HCl 1 mg solution for 1 mg subcut Q20M PRN Hypoglycemia 02/13/22 04/26/25 Unknown History injection (Glucagon (HCl) Emergency Kit) hydroxyzine HCl 25 mg tablet 50 mg PO Q8H PRN Itching 08/25/22 04/26/25 11/08/24 History acetaminophen 500 mg tablet 1,000 mg PO BID PRN Pain (Scale 09/14/22 04/26/25 11/08/24 History Score 1-3) atorvastatin 40 mg tablet 40 mg PO HS 01/22/23 04/26/25 11/08/24 History gabapentin 600 mg tablet 100 mg PO TID 01/22/23 04/26/25 11/09/24 History cholecalciferol (vitamin D3) 1,250 1,250 mcg PO WEEKLY 12/15/23 04/26/25 11/06/24 History mcg (50,000 unit) tablet lamotrigine 150 mg tablet 100 mg PO Q12H 05/17/24 04/26/25 11/09/24 History furosemide 20 mg tablet 20 mg PO DAILY 08/16/24 04/26/25 11/08/24 History lactulose 10 gram/15 mL oral 30 g PO QID 08/16/24 04/26/25 11/08/24 History solution vitamins A,C,H-xmsh-fcxirb 4,296 1 cap PO DAILY 08/16/24 04/26/25 11/08/24 History mcg-226 mg-90 mg capsule (PreserVision AREDS) camphor-menthol 0.5 %-0.5 % lotion 1 applic topical DAILY PRN pruritis 08/22/24 04/26/25 11/08/24 History (Sarna Original) clobetasol 0.05 % topical ointment 1 applic topical PRN PRN pruritus 08/22/24 04/26/25 11/08/24 History ketoconazole 2 % topical cream 1 applic topical BID PRN Rash 08/22/24 11/09/24 Unknown History morphine concentrate 100 mg/5 mL 5 mg PO Q6H PRN pain 11/09/24 04/26/25 11/07/24 History (20 mg/mL) oral solution ondansetron 4 mg disintegrating 4 mg translingual TID PRN nausea 11/09/24 04/26/25 10/14/24 History tablet and vomiting ferrous sulfate 325 mg (65 mg 325 mg PO DAILY 04/26/25 04/26/25 Unknown History iron) tablet (Iron (ferrous sulfate)) levothyroxine 150 mcg tablet 100 mcg PO DAILY 04/26/25 04/26/25 Unknown History (Synthroid) pantoprazole 40 mg tablet,delayed 40 mg PO HS 04/26/25 04/26/25 Unknown History release (Protonix) suvorexant 10 mg tablet (Belsomra) 10 mg PO HS 04/26/25 04/26/25 Unknown History Allergies Allergy/AdvReac Type Severity Reaction Status Date / Time alendronate sodium Allergy Unknown Verified 04/26/25 20:25 amantadine Allergy Unknown Verified 04/26/25 20:25 benztropine Allergy Other Verified 04/26/25 20:25 chlorpromazine Allergy Unknown Verified 04/26/25 20:25 levofloxacin Allergy Unknown Verified 04/26/25 20:25 Macrolide Antibiotics Allergy Unknown Verified 04/26/25 20:25 mirtazapine Allergy Unknown Verified 04/26/25 20:25 Quinolones Allergy Unknown Verified 04/26/25 20:25 topiramate Allergy Unknown Verified 04/26/25 20:25 Review of Systems 2 Review of Systems: ROS unobtainable: Yes unobtainable due to mental status [facility] Past Medical History Medical History Chronic anemia Gastritis History of infection due to ESBL Escherichia coli Cerebrovascular accident 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 Frequent falls 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 Diabetic peripheral neuropathy Aortic stenosis Moderate on echocardiogram in November 2021. Osteoporosis Arthritis Asthma Bipolar disorder Anxiety Depression Hypertension Hypothyroidism Surgical History Surgical History History of cataract extraction with lens replacement History of cholecystectomy History of tonsillectomy History of section History of colonoscopy with polypectomy Most recent colonoscopy 01/2019 demonstrated colon spasm and diverticulosis performed by Dr. Moreno History of thyroidectomy History of bladder surgery History of partial hysterectomy Family History Family History Sibling Multiple sclerosis Father Acute myocardial infarction, Onset Age: 79 Cerebrovascular accident, Onset Age: 79 Mother Dementia Sibling Acute myocardial infarction, Onset Age: 65 Son Diabetes mellitus Other Depression Family history of arthritis Family history of elevated blood lipids Family history of thyroid disease Hypertension Social History Social History Social History: Surrogate medical decision maker: Gavino Sigala (son). Code status: Do not resuscitate. Smoking packs per day: 1 Smoking cigarettes per day: 20.0 Years smoked: 50 Smoking pack-years: 50.00 Smoking status: Former smoker Tobacco type: cigarettes Second hand tobacco smoke exposure: No Smoking end date: 11/30/18 Alcohol intake: never Substance use: never Substance use type: does not use Do You Feel Safe in your Home?: Yes Lack of Transportation: No Lack of Food: Never True Current Housing: I Have Housing Concerned About Future Housing: No Difficulty Paying Gas/Electric Bills: No Difficulty Paying for Meds: No Currently Unemployed: No Education: Decline to Answer Difficulty w/ Childcare or Family Care: No Living arrangements: half-way Additional living arrangements comments: with 3 sons. Resident at [facility]. 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 Spiritual care concerns: No Exam 2 Narrative: GENERAL: Elderly and frail appearing but not any acute distress, alert to her name and interacting HEAD: [Normocephalic, atraumatic.] EYES: [PERRLA and EOMI.] ENT: Nares clear, no rhinorrhea or epistaxis. Mucous membranes dry. NECK: Supple. CHEST: [Clear to auscultation. No respiratory distress.] HEART: [Regular rate and rhythm]. No murmur heard. [Normal peripheral pulses.] ABDOMEN: [Soft, nondistended], [nontender], [No rigidity or guarding] EXTREMITIES: Normal range of motion. [No edema.] SKIN: Warm, dry, no rash. NEURO: [No focal deficits]. Alert and oriented x1 which is her name. Moving all extremities, no focal lateralizing deficits. PSYCH: Extra pyramidal symptoms with tongue flapping and extremity tremors bilaterally Course Vital Signs Vital signs: Vital Signs Temperature 37.2 C 04/26/25 05:26 Pulse Rate 100 04/26/25 05:26 Respiratory Rate 19 04/26/25 05:26 Blood Pressure 194/67 H 04/26/25 05:26 Pulse Oximetry 78 L 04/26/25 05:26 Oxygen Delivery Room Air 04/26/25 05:26 Temperature 37.4 C 04/26/25 18:20 Pulse Rate 82 04/26/25 18:20 Respiratory Rate 25 H 04/26/25 18:20 Blood Pressure 152/76 H 04/26/25 18:20 Pulse Oximetry 99 04/26/25 18:20 Oxygen Delivery BiPAP 04/26/25 15:33 Oxygen Flow Rate 3 04/26/25 05:37 Fraction of Inspired Oxygen 30 04/26/25 09:45 MDM - Altered Mental Status MDM Narrative Medical decision making narrative: 79-year-old female presenting from senior living facility for concerns of low oxygen and altered mental status. Patient has a history of prior CVAs, bipolar disorder, liver cirrhosis with hepatic encephalopathy, COPD, CKD, history of ESBL UTIs. She also has history of chronic extra pyramidal symptoms and dyskinesia. Patient is not any acute distress but is presently alert oriented x1 which is around her baseline reported by EMS staff. Patient is not verbalizing any complaints but collateral information is obtained via EMS and EMR. Patient is hypertensive and requiring oxygen currently 96% on 3 L nasal cannula. No tachypnea, fever, tachycardia. Patient has multiple etiologies possible for her acute mental status changes and hypoxemia with potential likely etiology being pneumonia versus aspiration versus dehydration versus UTI. Intracranial pathology such as stroke or bleed or possible given her history. Hepatic encephalopathy versus CO2 narcosis from COPD also possible but she is breathing comfortably and not having any wheezing on examination with good aeration. Broad workup was ordered this time including head CT, ABG, CBC, CMP, lactic acid, urinalysis with straight catheterization, coags, alcohol level, drug screen, salicylates and Tylenol level, EKG and chest x-ray. She was given a fluid bolus given her signs of dehydration on examination. Patient's ABG came back with acute respiratory acidosis with a pCO2 of 49 a pH is 7.26 likely secondary to hypoventilation from the narcotics that she was administered overnight and this morning by her nursing facility which likely led to her hypoxemia but further evaluation is still pending. She was given a DuoNeb treatment here given her history of COPD and slight CO2 retention. She is breathing comfortably on 3 L at this time after treatment. Workup shows no leukocytosis and hemoglobin of 10.3 which is around her baseline anemia. Platelet count is unremarkable. Electrolytes are unremarkable, BUN and creatinine show an acute kidney injury on chronic kidney disease likely dehydration given her clinical status examination. Negative lactic acid. Mildly elevated LFTs which are chronic from underlying cirrhosis. Ammonia is mildly elevated 49. TSH is pending. Urinalysis shows no signs of infection which is reassuring. Negative Tylenol, alcohol and salicylate levels. UDS pending. Chest x-ray shows COPD and stable cardiomegaly. No signs of pneumonia. EKG shows sinus rhythm, no ST segment elevations, depressions or acute inversions. Patient CT scan is pending at this time and patient was endorsed to the oncoming ER physician Dr. Gross pending results of this and admission to the hospital for further evaluation of her altered mental status likely a combination of dehydration, hepatic encephalopathy, recent opiate use causing hypopnea and acute respiratory acidosis, among potential etiologies needing further inpatient evaluaton. Medical Records Attestation: I reviewed the patient's medical records. Lab Data Attestation: I reviewed the patient's lab results. 04/26/25 06:01 04/26/25 06:01 Labs: Lab Results 04/26/25 04/26/25 04/26/25 Range/Units 05:56 06:01 06:19 WBC 8.9 (4.5-10.0) K/mm3 RBC 3.77 L (4.2-5.4) M/mm3 Hgb 10.3 L (12.0-15.0) g/dL Hct 34.3 L (37.0-47.0) % MCV 91.0 (80-100) fl MCH 27.3 (26-34) pg MCHC 30.0 L (32-36) g/dl RDW 16.5 H (11.5-14.5) % Plt Count 145 L D (150-375) k/mm3 MPV 9.4 (7.4-10.4) fl Immature Gran % (Auto) 0.3 (0-0.5) % Neut % (Auto) 56.0 (45.5-73.1) % Lymph % (Auto) 22.9 (18.3-44.2) % [place] % (Auto) 7.6 (2.6-8.5) % Eos % (Auto) 12.4 H (0-4.4) % Baso % (Auto) 0.8 (0.2-1.2) % Lymph # (Auto) 2.04 (0.9-3.2) K/mm3 [place] # (Auto) 0.7 H (0.1-0.6) K/mm3 Eos # (Auto) 1.1 H (0-0.3) K/mm3 Baso # (Auto) 0.1 (0.0-0.1) K/mm3 Abs Immat Gran (auto) 0.03 (0.00-0.031) K/mm3 Absolute Neuts (auto) 5.0 (1.3-6.7) K/mm3 Absolute Nucleated RBC 0.000 (0.0-0.012) K/mm3 Nucleated RBC % 0.0 (0.0-0.2) % PT 14.8 H (11.1-14.7) Seconds INR 1.1 APTT 32.4 (22.3-36.8) Seconds Methemoglobin 0.2 (0-1.5) %THb Sodium 140 (137-145) mmol/L Potassium 4.7 (3.4-5.0) mmol/L Chloride 109 H (98-107) mmol/L Carbon Dioxide 24 (22-30) mmol/L Anion Gap 7 (4-12) mmol/L BUN 34 H (7-17) mg/dL Creatinine 2.13 H (0.7-1.0) mg/dL Estim Creat Clear Calc 16 ml/min Estimated GFR 22 L (59 - ) Glucose 134 H (65-110) mg/dL POC Capillary Glucose (65-105) mg/dl Lactic Acid 1.1 (0.7-2.0) mmol/L Calcium 8.7 (8.4-10.2) mg/dL Total Bilirubin 0.4 (0.2-1.3) mg/dL AST 52 H (14-36) U/L ALT 26 (6-35) U/L Alkaline Phosphatase 332 H (38-126) U/L Ammonia 49 H (9-30) umol/L Total Protein 7.0 (6.3-8.2) g/dL Albumin 3.7 (3.5-5.1) g/dL TSH 1.430 (0.465-4.680) uIU/mL Urine Color Yellow (Yellow) Urine Appearance Clear (Clear) Urine pH 6.0 (5.0-9.0) Ur Specific [place] 1.020 (1.001-1.035) Urine Protein 4+ H (Negative) mg/dL Urine Glucose (UA) Trace H (Negative) mg/dL Urine Ketones Negative (Negative) mg/dL Ur Blood (Man) Negative (Negative) Urine Nitrate Negative (Negative) Urine Bilirubin Negative (Negative) Urine Urobilinogen 0.2 (<2.0) mg/dL Add Ur Microanalysis Reviewed Leukocyte Esterase Rfl Negative (Negative) SCOTT/UL Urine RBC 0-2 (0-2) /hpf Urine WBC 0-5 (0-3) /hpf Ur Squamous Epith Cells None seen (Few) /hpf Urine Bacteria None seen /hpf Urine Casts 11-20 Salicylates < 1.0 L (2-20) mg/dL Urine Opiates Screen Positive A (Negative) Urine Methadone Screen Negative (Negative) Acetaminophen < 10 L (10-30) ug/mL Ur Barbiturates Screen Negative (Negative) Ur Phencyclidine Scrn Negative (Negative) Ur Amphetamine Screen Negative (Negative) U Benzodiazepines Scrn Negative (Negative) Urine Cocaine Screen Negative (Negative) U Cannabinoids Screen Negative (Negative) Ethyl Alcohol < 10 (<10) mg/dL 04/26/25 Range/Units 06:58 WBC (4.5-10.0) K/mm3 RBC (4.2-5.4) M/mm3 Hgb (12.0-15.0) g/dL Hct (37.0-47.0) % MCV (80-100) fl MCH (26-34) pg MCHC (32-36) g/dl RDW (11.5-14.5) % Plt Count (150-375) k/mm3 MPV (7.4-10.4) fl Immature Gran % (Auto) (0-0.5) % Neut % (Auto) (45.5-73.1) % Lymph % (Auto) (18.3-44.2) % [place] % (Auto) (2.6-8.5) % Eos % (Auto) (0-4.4) % Baso % (Auto) (0.2-1.2) % Lymph # (Auto) (0.9-3.2) K/mm3 [place] # (Auto) (0.1-0.6) K/mm3 Eos # (Auto) (0-0.3) K/mm3 Baso # (Auto) (0.0-0.1) K/mm3 Abs Immat Gran (auto) (0.00-0.031) K/mm3 Absolute Neuts (auto) (1.3-6.7) K/mm3 Absolute Nucleated RBC (0.0-0.012) K/mm3 Nucleated RBC % (0.0-0.2) % PT (11.1-14.7) Seconds INR APTT (22.3-36.8) Seconds Methemoglobin (0-1.5) %THb Sodium (137-145) mmol/L Potassium (3.4-5.0) mmol/L Chloride (98-107) mmol/L Carbon Dioxide (22-30) mmol/L Anion Gap (4-12) mmol/L BUN (7-17) mg/dL Creatinine (0.7-1.0) mg/dL Estim Creat Clear Calc ml/min Estimated GFR (59 - ) Glucose (65-110) mg/dL POC Capillary Glucose 142 H (65-105) mg/dl Lactic Acid (0.7-2.0) mmol/L Calcium (8.4-10.2) mg/dL Total Bilirubin (0.2-1.3) mg/dL AST (14-36) U/L ALT (6-35) U/L Alkaline Phosphatase (38-126) U/L Ammonia (9-30) umol/L Total Protein (6.3-8.2) g/dL Albumin (3.5-5.1) g/dL TSH (0.465-4.680) uIU/mL Urine Color (Yellow) Urine Appearance (Clear) Urine pH (5.0-9.0) Ur Specific [place] (1.001-1.035) Urine Protein (Negative) mg/dL Urine Glucose (UA) (Negative) mg/dL Urine Ketones (Negative) mg/dL Ur Blood (Man) (Negative) Urine Nitrate (Negative) Urine Bilirubin (Negative) Urine Urobilinogen (<2.0) mg/dL Add Ur Microanalysis Leukocyte Esterase Rfl (Negative) SCOTT/UL Urine RBC (0-2) /hpf Urine WBC (0-3) /hpf Ur Squamous Epith Cells (Few) /hpf Urine Bacteria /hpf Urine Casts Salicylates (2-20) mg/dL Urine Opiates Screen (Negative) Urine Methadone Screen (Negative) Acetaminophen (10-30) ug/mL Ur Barbiturates Screen (Negative) Ur Phencyclidine Scrn (Negative) Ur Amphetamine Screen (Negative) U Benzodiazepines Scrn (Negative) Urine Cocaine Screen (Negative) U Cannabinoids Screen (Negative) Ethyl Alcohol (<10) mg/dL ABG Data ABG results: 04/26/25 04/26/25 05:56 08:53 Puncture Site Right brachial Right radial ABG pH 7.260 L* 7.216 L* ABG pCO2 49.2 H 55.9 H ABG pO2 78.1 L 94.6 ABG PO2/FiO2 Ratio 2.79 2.96 ABG HCO3 21.6 L 22.2 ABG O2 Saturation 93.6 L 95.6 ABG O2 Content 14.7 L 14.4 L ABG Base Excess -5.5 -5.8 A-a Gradient 63.5 68.2 Oxyhemoglobin 93.8 96.0 Carboxyhemoglobin 0.4 Reduced Hemoglobin 5.6 H Total Hemoglobin 11.1 L 10.6 L O2 Delivery Device Nasal cannula Nasal cannula O2 Liters/Min 2.0 3.0 FiO2 28 32 Attestation: I personally reviewed and interpreted this ABG as follows: Interpretation: Acute respiratory acidosis without appropriate compensation Imaging Data Attestation: I personally reviewed and interpreted this imaging study as follows: My impression: Impressions Chest X-Ray 04/26/25 06:44 Impression: COPD and probable minimal chronic interstitial disease. Correlate for mild interstitial edema. Stable cardiomegaly. Critical Care Time Critical Care Time Critical Care Time: Yes Total Critical Care Time: 35 Discharge Plan Discharge Clinical Impression: Acute alteration in mental status, Acute respiratory acidosis, Hypoxemia requiring supplemental oxygen, History of COPD, Other extrapyramidal disease and abnormal movement disorder, Cirrhosis of liver Patient Disposition: Still a Patient Condition: Stable
--- NOTE | 2025-04-26 05:50 | PC.NURSE ---
Multiple attempts at using a straight cath and coude by RN and EDP with no urine return. Betadine swabs cleaned pt. Pediatric U bag placed.
--- OUTSIDE RECORDS SUMMARY | 2025-04-26 05:52 | XMS_ITS | Encounter Summary ---
Author Organization [facility] Address [address] [place] [address] Care Team Providers Care Optometric Tech Name Role Phone Domingo Alcocer DO Primary Care Provider [phone] Encounter Details Date Type Department Care Team (Late st Contact Info) Description 09/22/2022 Lab Requisition [facility] Care Pathology Lab [address] [place] [address] Nir Alvarado MD [address] [place] [address] Illness, unspecified Social History Tobacco Use Types Packs/Day Years Used Date Smoking Tobacco: Every Day Smokeless Tobacco: Never Alcohol Use Standard Drinks/Week Comments No 0 (1 standard drink = 0.6 oz pur e alcohol) Comments Unknown Sex and Gender Information Value Date Recorded Sex Assigned at Not on file Legal Sex Female 6:46 AM [employer] Gender Identity Not on file Sexual Orientation Not on file documented as of this encounter Plan of Treatment Not on file documented as of this encounter Procedures Procedure Name Priority Date/Time Associated Diagnosis Comments BONE MARROW BIOPSY (STL) Routine 09/16/2022 9:37 AM CDT Illness, unspecified documented in this encounter Results * BONE MARROW BIOPSY (STL) (09/16/2022 9:37 AM CDT) Case Report Bone Marrow Patholog y Report Case: [id number] Authorizing Provider: Nir Alvarado MD Collected: 09/16/2022 09:37 AM Ordering Location: [facility]ology Lab Received: 09/22/2022 11:11 AM Pathologist: Gi Castillo MD Specimen: Bone Marrow Core 09/23/2022 4:16 PM T [facility] PATHOLOGY LAB Final Diagnosis Bone marrow, touch imprint, and core biopsy: - Slightly hypercellular core with maturing trilineage hematopoiesis and mild erythroid atypia. - Hemodilute touch imprints. 09/23/2022 4:16 PM T [facility] PATHOLOGY LAB at 1616 CDT AP Comment Overall, the bone marrow specimen is slightly hypercellular for age with maturing trilineage hematopoiesis and no evidence of lymphoma or a high-grade myeloid neoplasm. Due to the limited nature of the touch imprints, adequate evaluation for dyspoiesis is limited. Correlation with clinical findings and relevant cytogenetic/molecular testing is recommended. 09/23/2022 4:16 PM T [facility] PATH[facility] Peripheral Smear Description Not received. 09/23/2022 4:16 PM [facility] PATH[facility] Bone Marrow Aspirate The smears are hemodilute, aspiculate, and paucicellular. Mostly peripheral blood elements. Storage iron (by special stain): not evaluable for iron storage due to lack of spicules. Sideroblastic iron (by special stain): not evaluable due to lack of erythroid precursors. 09/23/2022 4:16 PM T [facility] PATH[facility] Bone Marrow Core Biopsy and Clot Section Description Specimen quality: adequate with 3 cm of evaluable marrow. Cellularity: variable 50% Trilineage Hematopoiesis: present. Myeloid to Erythroid ratio: normal. Myeloid maturation and localization: normal. Erythroid maturation and localization: few forms showing nuclear contour irregularity. Megakaryocyte number: mildly increased. Megakaryocyte distribution: occasional loose clusters. Lymphoid aggregates: absent. Bone trabeculae: normal. Blood vessels: normal. Plasma cells: normal. Properly controlled immunohistochemical stains were performed to assess staining cells in an architectural context. CD138 highlights no overt increase in plasma cells (~4% of marrow cellularity). CD34 and CD117 are negative for increased blasts. CD20 and CD3 highlight scattered B- and T-cells, respectively. 09/23/2022 4:16 PM T [facility] PATH[facility] Flow Cytometry Summary No flow performed. 09/23/2022 4:16 PM T [facility] PATH[facility]Y [facility] Clinical History The patient is 76-year-old woman with PMH of HTN, CKD, liver cirrhosis, COPD, stroke, and anemia. 09/23/2022 4:16 PM T [facility] Materials Received Received are 13 slides and one block (A1) labeled [id number] along with a copy of the outside pathology report. The materials originate from [facility], [address] [place] [address] Route [facility], [place] [address]. All original materials are returned to the referring institution, along with a copy of our final report. 09/23/2022 4:16 PM T [facility] Disclaimer The performance characteristics of all immunohistochemical and indirect immunofluorescence stains (if any) cited in this report were determined by the [facility]opathology Laboratory of [facility]. Some of these tests were developed by our own laboratory and have not been cleared or approved by the US Food and Drug Administration. The FDA does not require this test to go through premarket FDA review. These tests are used for clinical purposes. They should not be regarded as investigational or for research. This laboratory is certified under the Clinical Laboratory Improvement Amendments (CLIA) as qualified to perform high complexity clinical laboratory testing. This case has been personally reviewed and interpreted by the attending (teaching) pathologist. 09/23/2022 4:16 PM T [facility] PATH[facility] Embedded Images 09/23/2022 4:16 PM T [facility] PATHOLOG[facility] LAB Pathology/Cytolo gy BONE MARROW SPECIMEN / Unknown 09/16/2022 9:37 AM CDT 09/22/2022 11:11 AM CDT Nir Alvarado MD LAB - PATHOLOGY/CYTOLOGY ORDERAB LES Final Result Performing Organization Address City/State/[facility] Co de Phone Number [facility] PATHOLOG[facility] LAB [address] [phone] documented in this encounter Visit Diagnoses Diagnosis Illness, unspecified documented in this encounter Care Teams Optometric Tech Relationship Specialty Start Date End Date Domingo Alcocer DO PCP - General 09/03/22 documented as of this encounter
--- OUTSIDE RECORDS SUMMARY | 2025-04-26 05:52 | XMS_ITS | Encounter Summary ---
Author Organization [facility] Address [address] [place] [address] Care Team Providers Care Feed Mill Supervisor Name Role Phone NehemiahDomingo haney DO Primary Care Provider [phone] Encounter Details Date Type Department Care Team (Late st Contact Info) Description 10/06/2024 Lab Requisition [facility] [address] [place] [address] Jesse Bruce MD [address] [place] [address] Social History Tobacco Use Types Packs/Day Years Used Date Smoking Tobacco: Every Day Smokeless Tobacco: Never Alcohol Use Standard Drinks/Week Comments No 0 (1 standard drink = 0.6 oz pur e alcohol) Comments Unknown Sex and Gender Information Value Date Recorded Sex Assigned at Not on file Legal Sex Female 6:46 AM ASSISTANT ACCOUNT EXECUTIVE Gender Identity Not on file Sexual Orientation Not on file documented as of this encounter Plan of Treatment Not on file documented as of this encounter Procedures Procedure Name Priority Date/Time Associated Diagnosis Comments AMMONIA STAT 10/06/2024 10:35 AM ASSISTANT ACCOUNT EXECUTIVE documented in this encounter Results * AMMONIA (10/06/2024 10:35 AM ASSISTANT ACCOUNT EXECUTIVE) Ammonia 54 18 - 72 umol/L 10/06/2024 10:53 AM ASSISTANT ACCOUNT EXECUTIVE [facility] Blood BLOOD SPECIMEN / Unknown Venipuncture / Unknown 10/06/2024 10:35 AM ASSISTANT ACCOUNT EXECUTIVE 10/06/2024 10:35 AM ASSISTANT ACCOUNT EXECUTIVE us Jesse Bruce MD LAB - CHEMISTRY ORDERABLES Fi nal Result Performing Organization Address City/State/[facility] Co de Phone Number [facility] [address] [place] [address] documented in this encounter Visit Diagnoses Not on filedocumented in this encounter Care Teams Feed Mill Supervisor Relationship Specialty Start Date End Date Domingo Alcocer DO PCP - General 09/03/22 documented as of this encounter
--- OUTSIDE RECORDS SUMMARY | 2025-04-26 05:52 | XMS_ITS | Continuity of Care Document ---
Author Organization [facility] Address [address] [place] [address] Phone Care Team Providers Care Wood Casket Assembler Name Role Phone [facility] Unavailable Unavail able Jason Quintanilla Unavailable Unavailable Procedures Procedure Date Miscellaneous Vision Service - Supplies BF Plastic Sphcyl [place] To +/-4d .12-2d Frames Deluxe Tax - Medical Eye Exam & Treatment Refraction No Script Office/outpatient Visit, Est No Script Eye Exam Established Pt No Script Visual Field Examination(s) Office/outpatient Visit, Est BF Plastic Sphcyl [place] To +/-4d .12-2d Frames Deluxe Anti-reflective Coating Innoviti - Medical Eye Exam & Treatment Visual Functional Status Assessed Refraction Advance Directives Directive Yes / No Effective Date File Name No Information Encounters Encounter Description Practice Location Reason(s) For Visit Diagnoses Date Provider Providers Copied on Encounter [facility], [address], [place], [place], [id number], [place] tel:[phone] [facility] No Information 0-201 0 [facility] . [address] [facility], [address], [place], [place], [address], [place]. tel:[phone] Referring Provider: Kaleb Langston OD A, [address], [place], [address]. tel:[phone] Provider: Jason Quintanilla, [facility], [place], [address]. tel:[phone] [facility], [address], [place], [place], [address], [place] tel:[phone] [facility] No Information 1-201 0 [facility] . [address] [facility], [address], [place], [place], [address], [place]. tel:[phone] Referring Provider: Kaleb Langston OD A, [address] [place], [place] [address], [place], [address]. tel:[phone] Provider: Jason Quintanilla, [address] [place], [place] [address]ate [facility], [place], [address]. tel:[phone] [facility], [address] [place] [address] [address], [place], [place], [address], [place] tel:[phone] [facility] [place] No Information 6-201 0 Langston OD Kaleb. [address] [place], [place] [address]ate Center , [address], [place], [address], [place]. tel:[phone] Office/outpat ient Visit, [facility], [address] [place] [address] [address], [place], [place], [address], [place] tel:[phone] [facility] [place] No Information Mar-2 5-200 9 Langston OD Kaleb. [facility] , [address], [place], [address], [place]. tel:[phone] [facility], [address] [place] [address] [address], [place], [place], [address], [place] tel:[phone] [facility] No Information Mar-1 8-200 9 Langston OD Kaleb. [address] , [address], [place], [address], [place]. tel:[phone] [facility], [address] [place] [address] [address], [place], [place], [address], [place] tel:[phone] SEC [facility] No Information March-3 0-200 8 Italia Henderson. [address] [place] [address] , [address], [place], [address], [place]. tel:[phone] Referring Provider: Santiago Estevez, [address] [place] [address] [address], [place], [address]. tel:[phone] Office/outpat ient Visit, [facility], [address] [place] [address] [address], [place], [place], [address], [place] tel:[phone] SEC [facility] No Information March-2 9-200 8 Italia Henderson. [address] [place] [address] , [address], [place], [address], [place]. tel:[phone] [facility], [address] [place] [address] [address], [place], [place], [address], [place] tel:[phone] SEC [facility] No Information Oct-0 4-200 7 [facility] . [address] [facility], [address], [place], [place], [address], [place]. tel:[phone] Referring Provider: Santiago Estevez, [address] [place] [address] [address], [place], [address]. tel:[phone] sulting Provider: Jason Quintanilla, [address] [place], [place] [address]tr, [place], [address]. tel:[phone] [facility], [address] [place] [address] [address], [place], [place], [address], [place] tel:[phone] [facility] No Information Sep-1 7-200 7 Italia Henderson. [address] [place] [address] , [address], [place], [address], [place]. tel:[phone] Family History Family Member Type Diagnosis Age At Onset No Information Payers Payer name Insurance type Covered republican ID Authoriza tion(s) No Information Social History Type Description Quantity Date Captured Comments Sex Female Smoking Status No Information Chief Complaint And Reason For Visit No Information Reason For Referral Reason For Referral No Information History Of Present Illness Encounter Date Complaint History Of Prese nt Illness No Information Functional Status Date Functional Assessmen t No Information Instructions Date Instruction Additional Infor mation No Information Assessments Type Assessment Date No Information Patient Care Teams Name Effective Dates (start - stop) Status Members No Information
--- OUTSIDE RECORDS SUMMARY | 2025-04-26 05:52 | XMS_ITS | Clinical Summary ---
Author Organization [facility] Address [address] [place] [address] Care Team Providers Care Scrubbing Machine Operator Name Role Phone Carlyn Domingo Guillermo DO Primary Care Provider [phone] Source Comments [facility],non-owned Affiliates and Associated Physician Practices is amultiple site organization consisting of ambulatory clinics and hospital sitesin [place], [place], [place] and [place]. This disclosure is being madepursuant to the Care Everywhere program and may not contain all information available regarding this patient. Last updated 18.[facility] Allergies Active Allergy Reactions Criticality Noted Date Comments Amantadine 03/19/2011 Benztropine 03/19/2011 Levofloxacin 03/19/2011 Active Problems Problem Noted Date Diagnosed Date Pituitary adenoma 04/16/2011 Immunizations Immunization Administration Dates Next Due INFLUENZA VACCINE, HIGH-DOSE , QUADR. (FLUZONE HIGH-DOSE QUADRIVALENT; 65Y+), 0.7 ML (HD-IIV4) 08/24/2019 Social History Tobacco Use Types Packs/Day Years Used Date Smoking Tobacco: Every Day Smokeless Tobacco: Never Alcohol Use Standard Drinks/Week Comments No 0 (1 standard drink = 0.6 oz pur e alcohol) Comments Unknown Sex and Gender Information Value Date Recorded Sex Assigned at Not on file Legal Sex Female 6:46 AM SEAT MENDER Gender Identity Not on file Sexual Orientation Not on file Last Filed Vital Signs Vital Sign Reading Time Taken Comments Blood Pressure 148/52 02/05/2017 1:55 PM SEAT MENDER Pulse 87 02/05/2017 1:55 PM SEAT MENDER Temperature 36.8 C (98.2 F) 02/05/2017 1:55 PM SEAT MENDER Respiratory Rate 18 02/05/2017 1:55 PM SEAT MENDER Oxygen Saturation 100% 02/05/2017 1:55 PM SEAT MENDER Inhaled Oxygen Concentration - - Weight 74.5 kg (164 lb 3.2 oz) 02/05/2017 1:55 P M SEAT MENDER Height 149.9 cm (4' 11) 02/05/2017 1:55 PM SEAT MENDER Body Mass Index 33.16 02/05/2017 1:55 PM SEAT MENDER Plan of Treatment Health Maintenance Due Date Last Done Comments BONE DENSITY TESTING 1945 MEDICARE AWV 12 MONTHS 1945 DTAP/TDAP/TD VACCINES (1 - Tdap) 1964 PNEUMOCOCCAL VACCINE 50+ (1 of 2 - PCV) 1964 ZOSTER VACCINE (1 of 2) 1995 Respiratory Syncytial Virus (RSV) Vaccine Pt: or over 60 yrs (1 - 1-dose 75+ series) 2020 COVID-19 VACCINE ( - 2023-2 5 season) 2024 DEPRESSION SCREENING 11/30/2024 INFLUENZA VACCINE (Season Ended) 2025 08/24/20 19 HEPATITIS B VACCINE Aged Out No longe r eligible based on patient's age to complete this topic HIB VACCINE Aged Out No longer eligi ble based on patient's age to complete this topic HPV VACCINE Aged Out No longer eligi ble based on patient's age to complete this topic MENINGOCOCCAL (Group B) VACC INE SHARED DECISION-MAKING Aged Out No longer eligibl e based on patient's age to complete this topic MENINGOCOCCAL GROUPS A/C/Y/W VACCINE Aged Out No longer eligible b ased on patient's age to complete this topic Insurance MEDICARE MEDICARE MEDICAID - [facility] * Guarantor: KAYE LYLES Account Type Relation to Patient Date of Phone Billing Address Personal/Family [address] [place] [address] MEDICARE [place]ICAID - [place] * Guarantor: KAYE LYLES Account Type Relation to Patient Date of Phone Billing Address Personal/Family [address] [place] [address] MEDICARE MEDICAID - [place] * Guarantor: KAYE LYLES Account Type Relation to Patient Date of Phone Billing Address Personal/Family [address] [place] [address] MEDICARE MEDICAID - [place] Care Teams Scrubbing Machine Operator Relationship Specialty Start Date End Date Domingo Alcocer DO [facility] - General 09/03/22
--- OUTSIDE RECORDS SUMMARY | 2025-04-26 05:52 | XMS_ITS | CONTINUITY OF CARE DOCUMENT ---
Author Name chloé luevano Address Unknown Organization [facility] Address [address] [address] [place] [address] Phone [phone] Care Team Providers Care Purchasing Agent Name Role Phone Anthony Payne MD Unavailable ARELIS JOY DO Unavailable ARELIS JOY DO Unavailable [phone] INSURANCE PROVIDERS Payer name Policy type / Coverage type [place] [employer] party ID [employer] MEDICARE Medicare [id number]
[2025-04-26 06:10] LABS: Alveolar/Arterial O2 Gradient 63.5 mmHg; Base Excess ABG -5.5 mEq/l (+/-2.0); Carboxyhemoglobin 0.4 % THb (0-2.0); Fractional Inspired Oxygen 28 %; HCO3 ABG 21.6 mEq/l (22.0-26.0); Methemoglobin ABG 0.2 %THb (0-1.5); Oxygen Content ABG 14.7 %vol (16.0-22.0); Oxygen Saturation ABG 93.6 % (95.0-100.0); Oxyhemoglobin 93.8 % THb (90.0-100.0); PCO2 ABG 49.2 mmHg (35.0-45.0); PO2 ABG 78.1 mmHg (80.0-100.0); PO2 FiO2 Ratio Arterial Blood 2.79 %; Reduced Hemoglobin 5.6 %THb (0-5.0); Total Hemoglobin 11.1 g/dL (12.0-18.0)
[2025-04-26 06:11] LABS: Basophils Absolute Auto 0.1 K/mm3 (0.0-0.1); Basophils Percent Auto 0.8 % (0.2-1.2); Eosinophils Absolute Auto 1.1 K/mm3 (0-0.3); Eosinophils Percent Auto 12.4 % (0-4.4); Hematocrit 34.3 % (37.0-47.0); Hemoglobin 10.3 g/dL (12.0-15.0); Immature Granulocyte Absolute 0.03 K/mm3 (0.00-0.031); Immature Granulocyte Percent A 0.3 % (0-0.5); Lymphocytes Absolute Auto 2.04 K/mm3 (0.9-3.2); Lymphocytes Percent Auto 22.9 % (18.3-44.2); Mean Corpuscular Hemoglobin 27.3 pg (26-34); Mean Platelet Volume 9.4 fl (7.4-10.4); Monocytes Absolute Auto 0.7 K/mm3 (0.1-0.6); Monocytes Percent Auto 7.6 % (2.6-8.5); Platelet Count Result 145 k/mm3 (150-375); Red Blood Count 3.77 M/mm3 (4.2-5.4); Red Cell Distribution Width 16.5 % (11.5-14.5); White Blood Count 8.9 K/mm3 (4.5-10.0)
[2025-04-26 06:12] LABS: Device NASAL CANNULA; Site Drawn RIGHT BRACHIAL
[2025-04-26 06:21] LABS: Acetaminophen < 10 ug/mL (10-30); Alanine Aminotransferase 26 U/L (6-35); Albumin Level 3.7 g/dL (3.5-5.1); Alkaline Phosphatase 332 U/L (38-126); Ammonia 49 umol/L (9-30); Anion Gap 7 mmol/L (4-12); Aspartate Amino Transferase 52 U/L (14-36); Bilirubin,Total 0.4 mg/dL (0.2-1.3); Blood Urea Nitrogen 34 mg/dL (7-17); Calcium 8.7 mg/dL (8.4-10.2); Carbon Dioxide 24 mmol/L (22-30); Chloride 109 mmol/L (98-107); Estimated CRCL calculation 16 ml/min; Estimated Glomerular Filt Rate 22; Ethanol < 10 mg/dL (<10); Glucose 134 mg/dL (65-110); Lactic Acid Reflex 1.1 mmol/L (0.7-2.0); Potassium 4.7 mmol/L (3.4-5.0); Salicylate < 1.0 mg/dL (2-20); Sodium 140 mmol/L (137-145)
[2025-04-26 06:24] LABS: INR 1.1; Prothrombin Time 14.8 Seconds (11.1-14.7)
[2025-04-26 06:25] LABS: Partial Thromboplastin Time 32.4 Seconds (22.3-36.8)
[2025-04-26] MEDS: IPRATROPIUM 0.5 MG/ALBUTEROL SULFATE 2.5 MG AMPUL.NEB 3 ML INHALATION ×3 (06:34→20:06)
[2025-04-26] MEDS: LACTATED RINGERS 1,000 ML 999 ML IV CONT (06:40)
[2025-04-26 06:44] LABS: Add Urine Microscopic? YES; Appearance Urine Clear (Clear); Bacteria Urine None Seen /hpf; Bilirubin Urine Negative (Negative); Blood Urine Negative (Negative); Color Urine Yellow (Yellow); Glucose Urine UA Trace mg/dL (Negative); Ketones Urine Negative (Negative); Leukocyte Esterase Ur Negative LEU/UL (Negative); Need Manual Microscopic Reviewed; Nitrate Urine Negative (Negative); Protein Urine 4+ mg/dL (Negative); RBC Urine 0-2 /hpf (0-2); Squamous Epithelial Cell Urine None Seen /hpf (Few); Urobilinogen Urine 0.2 mg/dL (<2.0); WBC Urine 0-5 /hpf (0-3)
[2025-04-26 06:51] LABS: Amphetamine Screen Urine Negative (Negative); Barbiturate Screen Urine Negative (Negative); Benzodiazepines Screen Urine Negative (Negative); Cannabinoid Screen Urine Negative (Negative); Cocaine Screen Urine Negative (Negative); Methadone Screen Urine Negative (Negative); Opiate Screen Urine Positive (Negative); Phencyclidine Screen Urine Negative (Negative)
[2025-04-26 07:00] LABS: Glucose Point of Care 142 mg/dl (65-105)
[2025-04-26 08:56] LABS: Alveolar/Arterial O2 Gradient 68.2 mmHg; Base Excess ABG -5.8 mEq/l (+/-2.0); Fractional Inspired Oxygen 32 %; HCO3 ABG 22.2 mEq/l (22.0-26.0); Oxygen Content ABG 14.4 %vol (16.0-22.0); Oxygen Saturation ABG 95.6 % (95.0-100.0); PCO2 ABG 55.9 mmHg (35.0-45.0); PO2 ABG 94.6 mmHg (80.0-100.0); PO2 FiO2 Ratio Arterial Blood 2.96 %; Total Hemoglobin 10.6 g/dL (12.0-18.0)
[2025-04-26 09:01] LABS: Device NASAL CANNULA; Modified Allen's Test Pass; Site Drawn RIGHT RADIAL; pH ABG 7.216 (7.350-7.450)
[2025-04-26] MEDS: LACTULOSE 20 GM/30 ML UDC PO (09:18)
[2025-04-26] MEDS: SODIUM CHLORIDE 0.9% IV 1,000 ML 125 ML IV CONT (10:58)
--- NOTE | 2025-04-26 14:26 | PC.NURSE ---
Son at bedside requesting to speak with physician regarding Mothers' status. Meme was messaged and awaiting call back.
--- NOTE | 2025-04-26 14:45 | PC.NURSE ---
Pt son speaking with Hospitalist via telephone at this time for an update
--- NOTE | 2025-04-26 15:16 | P.HP_ITS ---
H&P: HPI History of Present Illness Date/Time: 04/26/25 15:16 Chief Complaint: Altered mental status Narrative: 79-year-old female past medical history of hemorrhagic CVA, liver cirrhosis and esophageal varices, CKD, hyperlipidemia, COPD, liver cirrhosis, diabetic peripheral neuropathy, asthma, bipolar disorder, depression/anxiety, hypertension, hypothyroidism who was brought to the ER from retirement on acc ount of altered mental status. Patient was nonverbal he at the time of this encounter and unable to provide a history. Was on BiPAP. According to ER documentation patient was last normal at about 7-8 p.m. when she received p.r.n. L[place] for pain control and was found lethargic. Next morning dose was reportedly ER by EMS. ER evaluation notable for blood pressure 194/67, saturation 78% on room air. Labs notable for a 10.3, ABG 7.26/49.2/78.1/21.6. Repeat ABG showed 7.216/55.9/94 /22.2 the patient was placed on BiPAP. A CT head, CT chest abdomen pelvis are remarkable. Creatinine 2.13, BUN 34, baseline creatinine is 1.5. Review of Systems Review of Systems: Unable to do review of systems due to altered mental status. [facility] Past Medical History Medical History Chronic anemia Gastritis History of infection due to ESBL Escherichia coli Cerebrovascular accident 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 Frequent falls 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 Diabetic peripheral neuropathy Aortic stenosis Moderate on echocardiogram in November 2021. Osteoporosis Arthritis Asthma Bipolar disorder Anxiety Depression Hypertension Hypothyroidism Surgical History Surgical History History of cataract extraction with lens replacement History of cholecystectomy History of tonsillectomy History of section History of colonoscopy with polypectomy Most recent colonoscopy 01/2019 demonstrated colon spasm and diverticulosis performed by Dr. Moreno History of thyroidectomy History of bladder surgery History of partial hysterectomy Family History Family History Sibling Multiple sclerosis Father Acute myocardial infarction, Onset Age: 79 Cerebrovascular accident, Onset Age: 79 Mother Dementia Sibling Acute myocardial infarction, Onset Age: 65 Son Diabetes mellitus Other Depression Family history of arthritis Family history of elevated blood lipids Family history of thyroid disease Hypertension Social History Social History Social History: Surrogate medical decision maker: Gavino Sigala (son). Code status: Do not resuscitate. Smoking packs per day: 1 Smoking cigarettes per day: 20.0 Years smoked: 50 Smoking pack-years: 50.00 Smoking status: Never smoker Tobacco type: cigarettes Second hand tobacco smoke exposure: No Smoking end date: 11/30/18 Alcohol intake: never Substance use: never Substance use type: does not use Do You Feel Safe in your Home?: Yes Lack of Transportation: No Lack of Food: Never True Current Housing: I Have Housing Concerned About Future Housing: No Difficulty Paying Gas/Electric Bills: No Difficulty Paying for Meds: No Currently Unemployed: No Education: Decline to Answer Difficulty w/ Childcare or Family Care: No Living arrangements: retirement Additional living arrangements comments: with 3 sons. Resident at [facility]. 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 Spiritual care concerns: No Meds Home Medications and Allergies Home Medications ?Medication ?Instructions ?Recorded ?Confirmed ?Type escitalopram oxalate 5 mg tablet 5 mg PO DAILY 08/21/21 11/09/24 History umeclidinium 62.5 mcg-vilanterol 1 inh inhalation DAILY #60 ea 10/15/21 11/09/24 Rx 25 mcg/actuation powdr for inhalation (Anoro Ellipta) glucagon HCl 1 mg solution for 1 mg subcut Q20M PRN Hypoglycemia 02/13/22 11/09/24 History injection (Glucagon (HCl) Emergency Kit) sodium chloride 0.65 % nasal spray 1 spray intranasal BID PRN Dry 02/13/22 11/09/24 History aerosol (Saline Mist) Nasal Passages melatonin 3 mg tablet 3 mg PO HS #10 tabs 07/22/22 11/09/24 Rx hydroxyzine HCl 25 mg tablet 50 mg PO Q8H PRN Itching 08/25/22 11/09/24 History acetaminophen 500 mg tablet 1,000 mg PO BID PRN Pain (Scale 09/14/22 11/09/24 History Score 1-3) atorvastatin 40 mg tablet 40 mg PO HS 01/22/23 11/09/24 History gabapentin 600 mg tablet 100 mg PO TID 01/22/23 11/09/24 History cholecalciferol (vitamin D3) 1,250 1,250 mcg PO WEEKLY 12/15/23 11/09/24 History mcg (50,000 unit) tablet lamotrigine 150 mg tablet 100 mg PO Q12H 05/17/24 11/09/24 History insulin aspart U-100 100 unit/mL 2 - 5 unit subcut ACHS #20 mL 05/21/24 11/09/24 Rx subcutaneous solution (Novolog U-100 Insulin aspart) levothyroxine 150 mcg tablet 150 mcg PO MoTuWeThFrSa@0630 #30 05/21/24 11/09/24 Rx (Synthroid) tabs levothyroxine 150 mcg tablet 300 mcg (2 x 150 mcg) PO Doyle@0630 05/21/24 11/09/24 Rx (Synthroid) #16 tabs pantoprazole 40 mg tablet,delayed 40 mg PO Q12HR #60 tabs 05/21/24 11/09/24 Rx release hydrocodone 5 mg-acetaminophen 325 1 tablet PO Q4H PRN Pain Rated 4-6 06/08/24 11/09/24 Rx mg tablet #180 tabs furosemide 20 mg tablet 20 mg PO DAILY 08/16/24 11/09/24 History lactulose 10 gram/15 mL oral 30 g PO QID 08/16/24 11/09/24 History solution vitamins A,C,K-rfjr-omgogg 4,296 1 cap PO DAILY 08/16/24 11/09/24 History mcg-226 mg-90 mg capsule (PreserVision AREDS) iron,carbonyl 30 mg-vitamin C 10 1 tablet PO BID #30 tabs 08/18/24 11/09/24 Rx mg-FOS 25 mg chewable tablet (Chewable Iron) isosorbide mononitrate 30 mg 30 mg PO QAM 30 days #30 tabs 08/18/24 11/09/24 Rx tablet,extended release 24 hr camphor-menthol 0.5 %-0.5 % lotion 1 applic topical DAILY PRN pruritis 08/22/24 11/09/24 History (Sarna Original) clobetasol 0.05 % topical ointment 1 applic topical PRN PRN pruritus 08/22/24 11/09/24 History ketoconazole 2 % topical cream 1 applic topical BID PRN Rash 08/22/24 11/09/24 History insulin glargine 100 unit/mL (3 15 unit (0.15 mL) subcut HS #3 mL 09/10/24 11/09/24 Rx mL) subcutaneous pen (Lantus Solostar U-100 Insulin) sodium chloride 3 % nasal mist 1 spray intranasal TID #126 mL 10/10/24 11/09/24 Rx (Saline Nasal Mist) lorazepam 0.5 mg tablet 0.5 mg PO BID 11/09/24 11/24/24 History morphine concentrate 100 mg/5 mL 5 mg PO Q6H PRN pain 11/09/24 11/24/24 History (20 mg/mL) oral solution ondansetron 4 mg disintegrating 4 mg translingual TID PRN nausea 11/09/24 11/24/24 History tablet and vomiting Allergies Allergy/AdvReac Type Severity Reaction Status Date / Time alendronate sodium Allergy Unknown Verified 03/29/25 08:40 amantadine Allergy Unknown Verified 03/29/25 08:40 benztropine Allergy Other Verified 03/29/25 08:40 chlorpromazine Allergy Unknown Verified 03/29/25 08:40 levofloxacin Allergy Unknown Verified 03/29/25 08:40 Macrolide Antibiotics Allergy Unknown Verified 03/29/25 08:40 mirtazapine Allergy Unknown Verified 03/29/25 08:40 Quinolones Allergy Unknown Verified 03/29/25 08:40 topiramate Allergy Unknown Verified 03/29/25 08:40 Vital Signs Vital Signs - 24 hr 04/26/25 05:26 04/26/25 05:30 04/26/25 05:37 Temperature 99 F Pulse Rate 100 Respiratory Rate 19 Blood Pressure 194/67 H Pulse Oximetry 78 L 78 L 96 Oxygen Delivery Room Air Room Air Nasal Cannula Oxygen Flow Rate 3 Fraction of Inspired Oxygen 04/26/25 05:40 04/26/25 06:16 04/26/25 06:34 Temperature Pulse Rate 93 90 87 Respiratory Rate 14 Blood Pressure 164/64 H Pulse Oximetry 93 Oxygen Delivery Oxygen Flow Rate Fraction of Inspired Oxygen 04/26/25 06:40 04/26/25 07:47 04/26/25 08:01 Temperature Pulse Rate 88 79 78 Respiratory Rate 21 H 13 9 L Blood Pressure 164/60 H 102/61 116/52 L Pulse Oximetry 99 97 96 Oxygen Delivery Oxygen Flow Rate Fraction of Inspired Oxygen 04/26/25 09:00 04/26/25 09:30 04/26/25 09:45 Temperature Pulse Rate 74 78 Respiratory Rate 9 L 14 Blood Pressure 151/60 H Pulse Oximetry 96 97 98 Oxygen Delivery BiPAP BiPAP Oxygen Flow Rate Fraction of Inspired Oxygen 30 04/26/25 10:00 04/26/25 11:01 04/26/25 12:00 Temperature Pulse Rate 76 72 71 Respiratory Rate 12 13 16 Blood Pressure 124/52 L 124/50 L 134/61 Pulse Oximetry 97 98 97 Oxygen Delivery Oxygen Flow Rate Fraction of Inspired Oxygen 04/26/25 12:35 04/26/25 13:32 04/26/25 14:04 Temperature Pulse Rate 73 73 75 Respiratory Rate 17 15 25 H Blood Pressure 151/57 H Pulse Oximetry 97 98 Oxygen Delivery BiPAP Oxygen Flow Rate Fraction of Inspired Oxygen Exam Narrative: General: lethargic nonverbal Eyes: EOMI, PERRLA ENNT External ears normal, Neck is supple, no masses, Respiratory systems: Clear to auscultation Cardiovascular S1, S2, normal rhythm, no murmur, rub, or gallop; no thrill or palpable murmurs on palpation. Gastrointestinal: soft, non-tender, and non-distended abdomen with no masses; BS present Skin: no rash, lesions, ulcerations, subcutaneous nodules or induration Musculoskeletal: no abnormality and no tenderness, normal ROM Neurologic: lethargic non verbal H&P: Results Labs Labs: Short CBC 04/26/25 Range/Units 06:01 WBC 8.9 (4.5-10.0) K/mm3 Hgb 10.3 L (12.0-15.0) g/dL Hct 34.3 L (37.0-47.0) % Plt Count 145 L D (150-375) k/mm3 BMP 04/26/25 06:01 Sodium 140 Potassium 4.7 Chloride 109 H Carbon Dioxide 24 BUN 34 H Creatinine 2.13 H Glucose 134 H Calcium 8.7 Liver Function 04/26/25 Range/Units 06:01 Total Bilirubin 0.4 (0.2-1.3) mg/dL AST 52 H (14-36) U/L ALT 26 (6-35) U/L Alkaline Phosphatase 332 H (38-126) U/L Albumin 3.7 (3.5-5.1) g/dL Urine 04/26/25 Range/Units 06:19 Urine Color Yellow (Yellow) Urine Appearance Clear (Clear) Urine pH 6.0 (5.0-9.0) Ur Specific [place] 1.020 (1.001-1.035) Urine Protein 4+ H (Negative) mg/dL Urine Glucose (UA) Trace H (Negative) mg/dL Assessment and Plan Assessment and plan (1) Altered mental status: Qualifiers: Altered mental status type: somnolence Qualified Code(s): R40.0 - Somnolence Code(s): R41.82 - Altered mental status, unspecified Status: Acute (2) Acute respiratory failure with hypoxia: Code(s): J96.01 - Acute respiratory failure with hypoxia Status: Acute Plan Acute hypoxemic hypercapnic respiratory failure From COPD exacerbation ABG showed respiratory acidosis CT abdomen pelvis and chest no acute changes. Continue BiPAP, continue DuoNeb treatment and IV steroids Monitor closely. Altered mental status likely from respiratory acidosis The CT head unremarkable Continue above care. YASSINE on CKD Creatinine is 2.13, baseline 1.5 Gentle rehydration Monitor. Liver cirrhosis Titrate diuresis with clinical course will Hypertension Restart home medications once patient is feeling the meantime p.r.n. hydralazine. Hypothyroidism Start home medications Hyperlipidemia Continue medications once his SBO. Diabetes type 2 Sliding scale insulin with Accu-Cheks History of hemorrhagic stroke Monitor, CT head unremarkable. DVT prophylaxis subQ Lovenox. Patient is DNR surrogate decision maker is her son. Hospitalist MIPS Advance Care Plan I have confirmed that the patient's Advanced Care Plan is present, code status is documented, or surrogate decision maker is listed in patient medical record.: Yes Medication Reconciliation I have utilized all available resources to obtain, update and review the patients current medications (includes all prescriptions, OTC, herbals, cannabis, and nutritional supplements).: Yes
[2025-04-26] MEDS: methylPREDNISolone SOD SUCC 40 MG VIAL IV PUSH ×2 (15:29→21:30)
--- NOTE | 2025-04-26 18:21 | ADMGEN ---
This patient, Nisha Sigala, was admitted to IMU Room 206-01. Patient/family oriented to hospital policies and general routines including ID bracelet, bed and alarms, visiting hours, pain management, procedures, bathroom and other care routines, personal items, smoking policy, room service/diet, and visiting hours. Information on how to activate the Rapid Response Team has been discussed. Patient/Family are encouraged to report perceived risks to care and to ask questions if they do not understand what they are told or what they should do.
[2025-04-26 20:33] LABS: Glucose Point of Care 139 mg/dl (65-105)
[2025-04-26] MEDS: SODIUM CHLORIDE 0.9% IV 1,000 ML 50 ML IV CONT (21:30)
[2025-04-26 23:07] LABS: Alveolar/Arterial O2 Gradient 29.4 mmHg; Base Excess ABG -9.2 mEq/l (+/-2.0); Carboxyhemoglobin 0.3 % THb (0-2.0); Fractional Inspired Oxygen 28 %; HCO3 ABG 18.1 mEq/l (22.0-26.0); Methemoglobin ABG 0.1 %THb (0-1.5); Oxygen Content ABG 14.7 %vol (16.0-22.0); Oxygen Saturation ABG 97.5 % (95.0-100.0); Oxyhemoglobin 97.9 % THb (90.0-100.0); PCO2 ABG 45.2 mmHg (35.0-45.0); PO2 ABG 116.9 mmHg (80.0-100.0); PO2 FiO2 Ratio Arterial Blood 4.18 %; Reduced Hemoglobin 1.7 %THb (0-5.0); Total Hemoglobin 10.5 g/dL (12.0-18.0)
[2025-04-26 23:14] LABS: Device BIPAP; Modified Allen's Test Pass; Site Drawn RIGHT BRACHIAL; pH ABG 7.221 (7.350-7.450)
[2025-04-26 23:15] LABS: Expiratory Pressure 5 cmH2O; Inspiratory Pressure 10 cmH2O
[2025-04-27] VITALS (24 sets, daily range): BP systolic 148–166; BP diastolic 49–69; PULSE 80–96; RESP 17–31; TEMP 36.4–37.7; O2SAT 91–100; BMI 23.6
[2025-04-27] MEDS: IPRATROPIUM 0.5 MG/ALBUTEROL SULFATE 2.5 MG AMPUL.NEB 3 ML INHALATION ×4 (03:22→20:34)
[2025-04-27 05:21] LABS: Basophils Percent Auto 0.2 % (0.2-1.2); Hematocrit 31.2 % (37.0-47.0); Hemoglobin 9.4 g/dL (12.0-15.0); Immature Granulocyte Absolute 0.03 K/mm3 (0.00-0.031); Immature Granulocyte Percent A 0.5 % (0-0.5); Immature Platelet Fraction Pct 1.4 % (0.9-11.2); Lymphocytes Absolute Auto 0.53 K/mm3 (0.9-3.2); Lymphocytes Percent Auto 8.5 % (18.3-44.2); Mean Corpuscular HGB Conc 30.1 g/dl (32-36); Mean Corpuscular Volume 92.9 fl (80-100); Mean Platelet Volume 9.8 fl (7.4-10.4); Monocytes Absolute Auto 0.1 K/mm3 (0.1-0.6); Monocytes Percent Auto 0.8 % (2.6-8.5); Neutrophils Absolute Auto 5.6 K/mm3 (1.3-6.7); Platelet Count Result 91 k/mm3 (150-375); Red Blood Count 3.36 M/mm3 (4.2-5.4); Red Cell Distribution Width 16.2 % (11.5-14.5); White Blood Count 6.2 K/mm3 (4.5-10.0)
[2025-04-27] MEDS: methylPREDNISolone SOD SUCC 40 MG VIAL IV PUSH ×3 (05:21→21:47)
[2025-04-27 05:36] LABS: Alanine Aminotransferase 31 U/L (6-35); Albumin Level 3.6 g/dL (3.5-5.1); Alkaline Phosphatase 304 U/L (38-126); Anion Gap 13 mmol/L (4-12); Aspartate Amino Transferase 58 U/L (14-36); Bilirubin,Total 0.5 mg/dL (0.2-1.3); Blood Urea Nitrogen 49 mg/dL (7-17); Carbon Dioxide 15 mmol/L (22-30); Chloride 113 mmol/L (98-107); Estimated CRCL calculation 13 ml/min; Estimated Glomerular Filt Rate 19; Glucose 244 mg/dL (65-110); Magnesium 2.1 mg/dL (1.6-2.3); Potassium 4.7 mmol/L (3.4-5.0); Sodium 141 mmol/L (137-145)
[2025-04-27 05:38] LABS: Alveolar/Arterial O2 Gradient 27.3 mmHg; Carboxyhemoglobin 0.1 % THb (0-2.0); Fractional Inspired Oxygen 24 %; HCO3 ABG 16.3 mEq/l (22.0-26.0); Methemoglobin ABG 0.2 %THb (0-1.5); Oxygen Content ABG 14.5 %vol (16.0-22.0); Oxygen Saturation ABG 96.7 % (95.0-100.0); PO2 ABG 99.8 mmHg (80.0-100.0); PO2 FiO2 Ratio Arterial Blood 4.16 %; Reduced Hemoglobin 2.7 %THb (0-5.0); Total Hemoglobin 10.5 g/dL (12.0-18.0)
[2025-04-27 06:15] LABS: pH ABG 7.261 (7.350-7.450)
[2025-04-27 06:16] LABS: Device BIPAP; Inspiratory Pressure 12 cmH2O; Modified Allen's Test Pass; Site Drawn RIGHT RADIAL
[2025-04-27 06:17] LABS: Expiratory Pressure 6 cmH2O
[2025-04-27 11:15] LABS: Glucose Point of Care 203 mg/dl (65-105)
[2025-04-27] MEDS: SODIUM BICARBONATE 8.4% 100 MEQ in DEXTROSE 5% 1,000 ML 1,000 ML 75 MEQ IV CONT (11:42)
[2025-04-27 13:23] LABS: Ammonia 31 umol/L (9-30)
--- NOTE | 2025-04-27 16:19 | P.PNIM_ITS ---
Progress Note: A&P Assessment and Plan (1) Altered mental status: Qualifiers: Altered mental status type: somnolence Qualified Code(s): R40.0 - Somnolence Code(s): R41.82 - Altered mental status, unspecified Status: Acute (2) Acute respiratory failure with hypoxia: Code(s): J96.01 - Acute respiratory failure with hypoxia Status: Acute Plan Acute hypoxemic hypercapnic respiratory failure S/p BiPAP, now on supplemental oxygen by NC From COPD exacerbation ABG showed metabolic acidosis CT abdomen pelvis and chest no acute changes. Continue DuoNeb treatment and IV steroids Monitor closely. Altered mental status likely from respiratory acidosis likely from Hepatic encephalopathy The CT head unremarkable Continue above care. YASSINE on CKD Creatinine 2.49 from 2.13, baseline 1.5 Gentle rehydration Monitor. Liver cirrhosis Titrate diuresis with clinical course will Continue lactulose Hypertension titrate home meds hydralazine. Hypothyroidism Start home medications Hyperlipidemia Continue medications once his SBO. Diabetes type 2 Sliding scale insulin with Accu-Cheks History of hemorrhagic stroke Monitor, CT head unremarkable. DVT prophylaxis subQ Lovenox. Patient is DNR surrogate decision maker is her son. Subjective Date/time seen: 04/27/25 16:19 Interval history: Comfortable at bedside Abg showed metabolic acidosis, BiPAP removed today Review of Systems Review of Systems: Unable to do review of systems due to altered mental status. Exam Narrative: General: lethargic nonverbal Eyes: EOMI, PERRLA ENNT External ears normal, Neck is supple, no masses, Respiratory systems: Clear to auscultation Cardiovascular S1, S2, normal rhythm, no murmur, rub, or gallop; no thrill or palpable murmurs on palpation. Gastrointestinal: soft, non-tender, and non-distended abdomen with no masses; BS present Skin: no rash, lesions, ulcerations, subcutaneous nodules or induration Musculoskeletal: no abnormality and no tenderness, normal ROM Neurologic: lethargic non verbal Objective Data Vital Signs Vital Signs: Vital Signs - 24 hr 04/26/25 17:00 04/26/25 18:20 04/26/25 20:00 Temperature 99.3 F Pulse Rate 77 82 87 Respiratory Rate 16 25 H Blood Pressure 148/54 H 152/76 H Pulse Oximetry 97 99 Oxygen Delivery Oxygen Flow Rate Fraction of Inspired Oxygen 04/26/25 20:00 04/26/25 20:06 04/26/25 20:06 Temperature Pulse Rate 85 85 Respiratory Rate 21 H 36 H Blood Pressure Pulse Oximetry 93 99 99 Oxygen Delivery BiPAP BiPAP BiPAP Oxygen Flow Rate Fraction of Inspired Oxygen 30 30 04/26/25 20:06 04/26/25 22:00 04/27/25 00:00 Temperature 97.9 F Pulse Rate 85 90 89 Respiratory Rate 21 H 18 Blood Pressure 148/49 H Pulse Oximetry 100 Oxygen Delivery Oxygen Flow Rate Fraction of Inspired Oxygen 04/27/25 00:00 04/27/25 00:00 04/27/25 00:18 Temperature Pulse Rate 87 84 Respiratory Rate 20 Blood Pressure Pulse Oximetry 98 100 Oxygen Delivery BiPAP BiPAP Oxygen Flow Rate Fraction of Inspired Oxygen 30 04/27/25 02:00 04/27/25 03:22 04/27/25 03:22 Temperature Pulse Rate 86 89 89 Respiratory Rate 27 H 27 H Blood Pressure Pulse Oximetry 96 Oxygen Delivery BiPAP Oxygen Flow Rate Fraction of Inspired Oxygen 04/27/25 04:00 04/27/25 04:00 04/27/25 04:00 Temperature 97.7 F Pulse Rate 89 84 Respiratory Rate 17 Blood Pressure 152/53 H Pulse Oximetry 96 Oxygen Delivery BiPAP Oxygen Flow Rate Fraction of Inspired Oxygen 04/27/25 06:00 04/27/25 08:00 04/27/25 08:00 Temperature 97.8 F Pulse Rate 83 85 Respiratory Rate 22 H Blood Pressure 151/64 H Pulse Oximetry 98 Oxygen Delivery BiPAP Oxygen Flow Rate Fraction of Inspired Oxygen 24 04/27/25 08:00 04/27/25 08:10 04/27/25 08:11 Temperature Pulse Rate 85 87 88 Respiratory Rate 25 H 25 H Blood Pressure Pulse Oximetry 96 Oxygen Delivery BiPAP Oxygen Flow Rate Fraction of Inspired Oxygen 04/27/25 10:00 04/27/25 11:46 04/27/25 12:00 Temperature 99.9 F H Pulse Rate 87 94 Respiratory Rate 30 H Blood Pressure 166/69 H Pulse Oximetry 100 100 Oxygen Delivery BiPAP Oxygen Flow Rate Fraction of Inspired Oxygen 24 04/27/25 12:00 04/27/25 14:00 04/27/25 14:57 Temperature Pulse Rate 96 92 85 Respiratory Rate 22 H Blood Pressure Pulse Oximetry Oxygen Delivery Oxygen Flow Rate Fraction of Inspired Oxygen 04/27/25 14:58 04/27/25 16:00 Temperature 99.4 F Pulse Rate 87 Respiratory Rate 22 H Blood Pressure 153/66 H Pulse Oximetry 97 92 Oxygen Delivery Nasal Cannula Oxygen Flow Rate 2 Fraction of Inspired Oxygen Intake/Output Intake/Output: Intake & Output 04/24/25 04/25/25 04/26/25 04/27/25 23:59 23:59 23:59 23:59 Intake Total 1000 567.5 Output Total 120 400 Balance 880 167.5 Meds/Results Medications: Active Medications Generic Name Dose Route Start Last Admin Trade Name Freq PRN Reason Stop Dose Admin Albuterol/Ipratropium 3 ml 04/26/25 14:00 04/27/25 14:56 Ipratropium 0.5 Mg/Albuterol Sulfate 2.5 Mg Ampul.Neb 3 Ml INHALATION 3 ml Q6HRT PACO Administration Sodium Bicarbonate 100 meq/ 1,100 mls @ 50 mls/hr 04/27/25 11:00 04/27/25 13:28 Dextrose IV CONT 50 mls/hr .Q22H PACO Infusion Lactulose 20 gm 04/27/25 17:00 Lactulose 20 Gm/30 Ml Udc PO BID PACO Melatonin 5 mg 04/26/25 23:51 Melatonin 5 Mg Tablet PO HS PRN insomnia Methylprednisolone Sodium Succinate 40 mg 04/26/25 15:30 04/27/25 13:52 Methylprednisolone Sod Succ 40 Mg Vial IV PUSH 40 mg Q8HR PACO Administration Radiology Results: ITS Impressions Chest X-Ray 04/26/25 06:44 Impression: COPD and probable minimal chronic interstitial disease. Correlate for mild interstitial edema. Stable cardiomegaly. Head CT 04/26/25 07:38 Impression: No significant abnormality seen. Chest/Abdomen/Pelvis CT 04/26/25 08:47 IMPRESSION: No acute findings within the chest, abdomen or pelvis. Innumerable nonacute findings, as detailed above. Labs Labs: Laboratory Results - last 24 hr 04/26/25 04/26/25 04/27/25 20:12 23:00 04:52 WBC 6.2 RBC 3.36 L Hgb 9.4 L Hct 31.2 L MCV 92.9 MCH 28.0 MCHC 30.1 L RDW 16.2 H Plt Count 91 L MPV 9.8 Immature Gran % (Auto) 0.5 Neut % (Auto) 90.0 H Lymph % (Auto) 8.5 L [place] % (Auto) 0.8 L Eos % (Auto) 0.0 Baso % (Auto) 0.2 Lymph # (Auto) 0.53 L [place] # (Auto) 0.1 Eos # (Auto) 0.0 Baso # (Auto) 0.0 Abs Immat Gran (auto) 0.03 Absolute Neuts (auto) 5.6 Absolute Nucleated RBC 0.000 Nucleated RBC % 0.0 % Immature Plt Fraction 1.4 Puncture Site Right brachial ABG pH 7.221 L* ABG pCO2 45.2 H ABG pO2 116.9 H ABG PO2/FiO2 Ratio 4.18 ABG HCO3 18.1 L ABG O2 Saturation 97.5 ABG O2 Content 14.7 L ABG Base Excess -9.2 A-a Gradient 29.4 Oxyhemoglobin 97.9 Carboxyhemoglobin 0.3 Methemoglobin 0.1 Reduced Hemoglobin 1.7 Total Hemoglobin 10.5 L O2 Delivery Device Bipap O2 Liters/Min Not Reportable FiO2 28 Expiratory Pressure 5 Inspiratory Pressure 10 Sodium 141 Potassium 4.7 Chloride 113 H Carbon Dioxide 15 L Anion Gap 13 H BUN 49 H D Creatinine 2.49 H Estim Creat Clear Calc 13 Estimated GFR 19 L Glucose 244 H POC Capillary Glucose 139 H Lactic Acid Calcium 9.0 Magnesium 2.1 Total Bilirubin 0.5 AST 58 H ALT 31 Alkaline Phosphatase 304 H Ammonia Total Protein 7.0 Albumin 3.6 04/27/25 04/27/25 04/27/25 05:10 10:08 11:10 WBC RBC Hgb Hct MCV MCH MCHC RDW Plt Count MPV Immature Gran % (Auto) Neut % (Auto) Lymph % (Auto) [place] % (Auto) Eos % (Auto) Baso % (Auto) Lymph # (Auto) [place] # (Auto) Eos # (Auto) Baso # (Auto) Abs Immat Gran (auto) Absolute Neuts (auto) Absolute Nucleated RBC Nucleated RBC % % Immature Plt Fraction Puncture Site Right radial ABG pH 7.261 L* ABG pCO2 37.0 ABG pO2 99.8 ABG PO2/FiO2 Ratio 4.16 ABG HCO3 16.3 L ABG O2 Saturation 96.7 ABG O2 Content 14.5 L ABG Base Excess -10.0 A-a Gradient 27.3 Oxyhemoglobin 97.0 Carboxyhemoglobin 0.1 Methemoglobin 0.2 Reduced Hemoglobin 2.7 Total Hemoglobin 10.5 L O2 Delivery Device Bipap O2 Liters/Min Not Reportable FiO2 24 Expiratory Pressure 6 Inspiratory Pressure 12 Sodium Potassium Chloride Carbon Dioxide Anion Gap BUN Creatinine Estim Creat Clear Calc Estimated GFR Glucose POC Capillary Glucose 203 H Lactic Acid 2.0 Calcium Magnesium Total Bilirubin AST ALT Alkaline Phosphatase Ammonia Total Protein Albumin 04/27/25 13:05 WBC RBC Hgb Hct MCV MCH MCHC RDW Plt Count MPV Immature Gran % (Auto) Neut % (Auto) Lymph % (Auto) [place] % (Auto) Eos % (Auto) Baso % (Auto) Lymph # (Auto) [place] # (Auto) Eos # (Auto) Baso # (Auto) Abs Immat Gran (auto) Absolute Neuts (auto) Absolute Nucleated RBC Nucleated RBC % % Immature Plt Fraction Puncture Site ABG pH ABG pCO2 ABG pO2 ABG PO2/FiO2 Ratio ABG HCO3 ABG O2 Saturation ABG O2 Content ABG Base Excess A-a Gradient Oxyhemoglobin Carboxyhemoglobin Methemoglobin Reduced Hemoglobin Total Hemoglobin O2 Delivery Device O2 Liters/Min FiO2 Expiratory Pressure Inspiratory Pressure Sodium Potassium Chloride Carbon Dioxide Anion Gap BUN Creatinine Estim Creat Clear Calc Estimated GFR Glucose POC Capillary Glucose Lactic Acid Calcium Magnesium Total Bilirubin AST ALT Alkaline Phosphatase Ammonia 31 H Total Protein Albumin
[2025-04-27] MEDS: LACTULOSE 20 GM/30 ML UDC PO (17:20)
[2025-04-27] MEDS: ATORVASTATIN 40 MG TABLET PO (20:17)
[2025-04-27] MEDS: PANTOPRAZOLE 40 MG TABLET PO (20:17)
[2025-04-27] MEDS: lamoTRIgine 100 MG TABLET PO (20:17)
[2025-04-27] MEDS: MELATONIN 5 MG TABLET PO (20:19)
[2025-04-28] VITALS (27 sets, daily range): BP systolic 128–185; BP diastolic 54–96; PULSE 77–91; RESP 16–26; TEMP 36.6–36.9; O2SAT 90–97
[2025-04-28] MEDS: IPRATROPIUM 0.5 MG/ALBUTEROL SULFATE 2.5 MG AMPUL.NEB 3 ML INHALATION ×4 (02:17→20:19)
[2025-04-28 04:25] LABS: Basophils Percent Auto 0.2 % (0.2-1.2); Hematocrit 29.6 % (37.0-47.0); Immature Granulocyte Absolute 0.06 K/mm3 (0.00-0.031); Immature Granulocyte Percent A 0.6 % (0-0.5); Immature Platelet Fraction Pct 1.5 % (0.9-11.2); Lymphocytes Absolute Auto 0.31 K/mm3 (0.9-3.2); Lymphocytes Percent Auto 2.9 % (18.3-44.2); Mean Corpuscular HGB Conc 30.4 g/dl (32-36); Mean Corpuscular Hemoglobin 27.9 pg (26-34); Mean Corpuscular Volume 91.6 fl (80-100); Mean Platelet Volume 10.5 fl (7.4-10.4); Monocytes Absolute Auto 0.2 K/mm3 (0.1-0.6); Monocytes Percent Auto 1.7 % (2.6-8.5); Neutrophils Absolute Auto 10.3 K/mm3 (1.3-6.7); Neutrophils Percent Auto 94.6 % (45.5-73.1); Platelet Count Result 94 k/mm3 (150-375); Red Blood Count 3.23 M/mm3 (4.2-5.4); Red Cell Distribution Width 16.3 % (11.5-14.5); White Blood Count 10.8 K/mm3 (4.5-10.0)
[2025-04-28 04:43] LABS: Alanine Aminotransferase 36 U/L (6-35); Albumin Level 3.4 g/dL (3.5-5.1); Alkaline Phosphatase 258 U/L (38-126); Anion Gap 10 mmol/L (4-12); Aspartate Amino Transferase 91 U/L (14-36); Bilirubin,Total 0.5 mg/dL (0.2-1.3); Blood Urea Nitrogen 73 mg/dL (7-17); Calcium 8.8 mg/dL (8.4-10.2); Carbon Dioxide 20 mmol/L (22-30); Chloride 106 mmol/L (98-107); Estimated CRCL calculation 14 ml/min; Estimated Glomerular Filt Rate 21; Glucose 265 mg/dL (65-110); Magnesium 2.3 mg/dL (1.6-2.3); Potassium 4.4 mmol/L (3.4-5.0); Sodium 136 mmol/L (137-145)
[2025-04-28 05:05] LABS: Band Neutrophils Percent 0 % (0-6); Hypochromasia 1+; Ovalocytes 1+; Platelet Estimate Decreased (Adequate); Poikilocytosis 1+; Schistocytes None Seen
[2025-04-28] MEDS: LEVOTHYROXINE SODIUM 100 MCG TABLET PO (05:19)
[2025-04-28] MEDS: methylPREDNISolone SOD SUCC 40 MG VIAL IV PUSH ×3 (05:19→22:07)
[2025-04-28] MEDS: SODIUM BICARBONATE 8.4% 100 MEQ in DEXTROSE 5% 1,000 ML 1,000 ML 50 MEQ IV CONT (07:29)
[2025-04-28] MEDS: UMECLIDINIUM/VILANTEROL 62.5-25 MCG ELLIPTA 1 PUFF INHALATION (08:42)
[2025-04-28] MEDS: FUROSEMIDE 20 MG TABLET PO (10:18)
[2025-04-28] MEDS: lamoTRIgine 100 MG TABLET PO ×2 (10:18→22:07)
[2025-04-28] MEDS: TAMSULOSIN HCL 0.4 MG CAPSULE PO (10:18)
[2025-04-28] MEDS: LACTULOSE 20 GM/30 ML UDC PO ×2 (10:18→16:10)
[2025-04-28] MEDS: ESCITALOPRAM OXALATE 5 MG TABLET PO (10:18)
[2025-04-28] MEDS: PANTOPRAZOLE 40 MG TABLET PO ×2 (10:18→22:07)
[2025-04-28] MEDS: FERROUS SULFATE 325 MG TABLET DR BY MOUTH (12:25)
--- NOTE | 2025-04-28 12:34 | P.PNIM_ITS ---
Progress Note: A&P Assessment and Plan (1) Altered mental status: Qualifiers: Altered mental status type: somnolence Qualified Code(s): R40.0 - Somnolence Code(s): R41.82 - Altered mental status, unspecified Status: Acute (2) Acute respiratory failure with hypoxia: Code(s): J96.01 - Acute respiratory failure with hypoxia Status: Acute Plan Acute hypoxemic hypercapnic respiratory failure S/p BiPAP, now on supplemental oxygen by NC From COPD exacerbation ABG showed metabolic acidosis CT abdomen pelvis and chest no acute changes. Continue DuoNeb treatment and IV steroids Monitor closely. Altered mental status likely from respiratory acidosis likely from Hepatic encephalopathy The CT head unremarkable resolved Metabolic acidosis, improving Continue Bicarb infusion monitor YASSINE on CKD Creatinine 2.25 from 2.13, baseline 1.5 Gentle rehydration Monitor. Liver cirrhosis Titrate diuresis with clinical course will Continue lactulose Hypertension titrate home meds hydralazine. Hypothyroidism Start home medications Hyperlipidemia Continue medications once his SBO. Diabetes type 2 Sliding scale insulin with Accu-Cheks History of hemorrhagic stroke Monitor, CT head unremarkable. DVT prophylaxis subQ Lovenox. Patient is DNR surrogate decision maker is her son. Subjective Date/time seen: 04/28/25 12:34 Interval history: Comfortable at bedside alert adn answering questions Review of Systems Review of Systems: Unable to do review of systems due to altered mental status. Exam Narrative: General: lethargic nonverbal Eyes: EOMI, PERRLA ENNT External ears normal, Neck is supple, no masses, Respiratory systems: Clear to auscultation Cardiovascular S1, S2, normal rhythm, no murmur, rub, or gallop; no thrill or palpable murmurs on palpation. Gastrointestinal: soft, non-tender, and non-distended abdomen with no masses; BS present Skin: no rash, lesions, ulcerations, subcutaneous nodules or induration Musculoskeletal: no abnormality and no tenderness, normal ROM Neurologic: lethargic non verbal Objective Data Vital Signs Vital Signs: Vital Signs - 24 hr 04/27/25 14:00 04/27/25 14:57 04/27/25 14:58 Temperature Pulse Rate 92 85 Respiratory Rate 22 H Blood Pressure Pulse Oximetry 97 Oxygen Delivery Nasal Cannula Oxygen Flow Rate 2 Fraction of Inspired Oxygen 04/27/25 16:00 04/27/25 16:00 04/27/25 16:00 Temperature 99.4 F Pulse Rate 87 89 Respiratory Rate 22 H Blood Pressure 153/66 H Pulse Oximetry 92 95 Oxygen Delivery Nasal Cannula Oxygen Flow Rate 2 Fraction of Inspired Oxygen 04/27/25 18:00 04/27/25 20:00 04/27/25 20:00 Temperature 99.5 F Pulse Rate 85 85 Respiratory Rate 18 Blood Pressure 151/60 H Pulse Oximetry 91 94 Oxygen Delivery Nasal Cannula Oxygen Flow Rate 3 Fraction of Inspired Oxygen 04/27/25 20:00 04/27/25 20:37 04/27/25 20:38 Temperature Pulse Rate 86 81 Respiratory Rate 21 H Blood Pressure Pulse Oximetry 92 Oxygen Delivery Nasal Cannula Oxygen Flow Rate 3 Fraction of Inspired Oxygen 04/27/25 20:42 04/27/25 22:00 04/27/25 22:31 Temperature Pulse Rate 83 85 Respiratory Rate 21 H 31 H Blood Pressure Pulse Oximetry 99 Oxygen Delivery BiPAP Oxygen Flow Rate Fraction of Inspired Oxygen 04/27/25 23:35 04/28/25 00:00 04/28/25 00:00 Temperature 97.5 F L Pulse Rate 80 80 Respiratory Rate 19 Blood Pressure 159/64 H Pulse Oximetry 91 90 Oxygen Delivery Nasal Cannula Oxygen Flow Rate 3 Fraction of Inspired Oxygen 04/28/25 02:00 04/28/25 02:16 04/28/25 02:19 Temperature Pulse Rate 77 90 79 Respiratory Rate 23 H 23 H Blood Pressure Pulse Oximetry 91 Oxygen Delivery BiPAP Oxygen Flow Rate Fraction of Inspired Oxygen 04/28/25 02:22 04/28/25 04:00 04/28/25 04:00 Temperature Pulse Rate 81 82 82 Respiratory Rate 21 H Blood Pressure Pulse Oximetry 91 Oxygen Delivery Nasal Cannula Oxygen Flow Rate 3 Fraction of Inspired Oxygen 04/28/25 04:00 04/28/25 06:00 04/28/25 07:43 Temperature 98 F 98.4 F Pulse Rate 88 84 85 Respiratory Rate 26 H 20 Blood Pressure 170/68 H 161/68 H Pulse Oximetry 94 92 Oxygen Delivery Oxygen Flow Rate Fraction of Inspired Oxygen 04/28/25 08:00 04/28/25 08:22 04/28/25 08:38 Temperature Pulse Rate 88 83 88 Respiratory Rate 16 18 16 Blood Pressure Pulse Oximetry 92 Oxygen Delivery Nasal Cannula Oxygen Flow Rate 3 Fraction of Inspired Oxygen 04/28/25 12:00 Temperature 98.1 F Pulse Rate 80 Respiratory Rate 18 Blood Pressure 128/54 L Pulse Oximetry 96 Oxygen Delivery Oxygen Flow Rate Fraction of Inspired Oxygen Intake/Output Intake/Output: Intake & Output 04/25/25 04/26/25 04/27/25 04/28/25 23:59 23:59 23:59 23:59 Intake Total 1000 937.5 1340.8 Output Total 120 400 700 Balance 880 537.5 640.8 Meds/Results Medications: Active Medications Generic Name Dose Route Start Last Admin Trade Name Freq PRN Reason Stop Dose Admin Albuterol/Ipratropium 3 ml 04/26/25 14:00 04/28/25 08:20 Ipratropium 0.5 Mg/Albuterol Sulfate 2.5 Mg Ampul.Neb 3 Ml INHALATION 3 ml Q6HRT PACO Administration Atorvastatin Calcium 40 mg 04/27/25 21:00 04/27/25 20:17 Atorvastatin 40 Mg Tablet PO 40 mg HS PACO Administration Ergocalciferol 1,250 mcg 04/30/25 09:00 Ergocalciferol (Vitamin D2) 1,250 Mcg (50,000 Units) Capsule PO WEEKLY PACO Escitalopram Oxalate 5 mg 04/28/25 09:00 04/28/25 10:18 Escitalopram Oxalate 5 Mg Tablet PO 5 mg DAILY PACO Administration Ferrous Sulfate 325 mg 04/28/25 12:00 04/28/25 12:25 Ferrous Sulfate [address] BY MOUTH 325 mg DAILY@1200 PACO Administration Furosemide 20 mg 04/28/25 09:00 04/28/25 10:18 Furosemide 20 Mg Tablet PO 20 mg DAILY PACO Administration Sodium Bicarbonate 100 meq/ 1,100 mls @ 50 mls/hr 04/27/25 11:00 04/28/25 07:29 Dextrose IV CONT 50 mls/hr .Q22H PACO Administration Lactulose 20 gm 04/27/25 17:00 04/28/25 10:18 Lactulose 20 Gm/30 Ml Udc PO 20 gm BID PACO Administration Lamotrigine 100 mg 04/27/25 21:00 04/28/25 10:18 Lamotrigine 100 Mg Tablet PO 100 mg Q12HR PACO Administration Levothyroxine Sodium 100 mcg 04/28/25 06:30 04/28/25 05:19 Levothyroxine Sodium 100 Mcg Tablet PO 100 mcg DAILY@0630 PACO Administration Melatonin 5 mg 04/26/25 23:51 04/27/25 20:19 Melatonin 5 Mg Tablet PO 5 mg HS PRN Administration insomnia Methylprednisolone Sodium Succinate 40 mg 04/26/25 15:30 04/28/25 05:19 Methylprednisolone Sod Succ 40 Mg Vial IV PUSH 40 mg Q8HR PACO Administration Miscellaneous Information 0 each 04/27/25 00:01 04/28/25 06:45 Suvorexant Nonform Can Pt Bring From Home Or Hold While Here? XX 05/27/25 00:00 Not Given CLARIFY PACO Non-Formulary Medication 10 mg 04/27/25 21:00 Suvorexant [Belsomra] PO 05/27/25 20:59 HS PACO Pantoprazole Sodium 40 mg 04/27/25 21:00 04/28/25 10:18 Pantoprazole 40 Mg Tablet PO 40 mg Q12HR PACO Administration Tamsulosin HCl 0.4 mg 04/28/25 09:00 04/28/25 10:18 Tamsulosin Hcl 0.4 Mg Capsule PO 0.4 mg QAM PACO Administration Umeclidinium/Vilanterol 1 puff 04/28/25 08:00 04/28/25 08:42 Umeclidinium/Vilanterol 62.5-25 Mcg Ellipta INHALATION 1 puff DAILYRT PACO Administration Radiology Results: ITS Impressions Chest X-Ray 04/26/25 06:44 Impression: COPD and probable minimal chronic interstitial disease. Correlate for mild interstitial edema. Stable cardiomegaly. Head CT 04/26/25 07:38 Impression: No significant abnormality seen. Chest/Abdomen/Pelvis CT 04/26/25 08:47 IMPRESSION: No acute findings within the chest, abdomen or pelvis. Innumerable nonacute findings, as detailed above. Labs Labs: Laboratory Results - last 24 hr 04/27/25 04/28/25 13:05 03:43 WBC 10.8 H RBC 3.23 L Hgb 9.0 L Hct 29.6 L MCV 91.6 MCH 27.9 MCHC 30.4 L RDW 16.3 H Plt Count 94 L MPV 10.5 H Immature Gran % (Auto) 0.6 H Neut % (Auto) 94.6 H Lymph % (Auto) 2.9 L [place] % (Auto) 1.7 L Eos % (Auto) 0.0 Baso % (Auto) 0.2 Lymph # (Auto) 0.31 L [place] # (Auto) 0.2 Eos # (Auto) 0.0 Baso # (Auto) 0.0 Abs Immat Gran (auto) 0.06 H Absolute Neuts (auto) 10.3 H Absolute Nucleated RBC 0.000 Band Neutrophils % 0 Nucleated RBC % 0.0 Platelet Estimate Decreased % Immature Plt Fraction 1.5 Hypochromasia 1+ Poikilocytosis 1+ Ovalocytes 1+ Schistocytes None seen Sodium 136 L Potassium 4.4 Chloride 106 Carbon Dioxide 20 L Anion Gap 10 BUN 73 H D Creatinine 2.25 H Estim Creat Clear Calc 14 Estimated GFR 21 L Glucose 265 H Calcium 8.8 Magnesium 2.3 Total Bilirubin 0.5 AST 91 H ALT 36 H Alkaline Phosphatase 258 H Ammonia 31 H Total Protein 6.0 L Albumin 3.4 L
[2025-04-28 16:28] LABS: Base Excess ABG -2.8 mEq/l (+/-2.0); Fractional Inspired Oxygen 32 %; HCO3 ABG 21.4 mEq/l (22.0-26.0); Oxygen Saturation ABG 93.5 % (95.0-100.0); PCO2 ABG 34.3 mmHg (35.0-45.0); PO2 FiO2 Ratio Arterial Blood 2.06 %; Total Hemoglobin 9.2 g/dL (12.0-18.0); pH ABG 7.412 (7.350-7.450)
[2025-04-28 16:29] LABS: Site Drawn RIGHT RADIAL
[2025-04-28 16:30] LABS: Device NASAL CANNULA; Modified Allen's Test Pass
[2025-04-28] MEDS: amLODIPine BESYLATE 5 MG TABLET PO (16:47)
[2025-04-28] MEDS: MELATONIN 5 MG TABLET PO (22:07)
[2025-04-28] MEDS: ATORVASTATIN 40 MG TABLET PO (22:07)
[2025-04-29] VITALS (28 sets, daily range): BP systolic 151–180; BP diastolic 56–79; PULSE 66–101; RESP 16–31; TEMP 36.4–36.7; O2SAT 86–99
[2025-04-29] MEDS: IPRATROPIUM 0.5 MG/ALBUTEROL SULFATE 2.5 MG AMPUL.NEB 3 ML INHALATION ×4 (02:40→20:09)
[2025-04-29] MEDS: SODIUM BICARBONATE 8.4% 100 MEQ in DEXTROSE 5% 1,000 ML 1,000 ML 50 MEQ IV CONT ×2 (04:11→20:34)
[2025-04-29 04:36] LABS: Hemoglobin 8.8 g/dL (12.0-15.0); Immature Granulocyte Absolute 0.04 K/mm3 (0.00-0.031); Immature Granulocyte Percent A 0.7 % (0-0.5); Immature Platelet Fraction Pct 1.4 % (0.9-11.2); Lymphocytes Absolute Auto 0.15 K/mm3 (0.9-3.2); Lymphocytes Percent Auto 2.8 % (18.3-44.2); Mean Corpuscular HGB Conc 31.4 g/dl (32-36); Mean Corpuscular Volume 89.2 fl (80-100); Mean Platelet Volume 9.8 fl (7.4-10.4); Monocytes Absolute Auto 0.1 K/mm3 (0.1-0.6); Monocytes Percent Auto 1.3 % (2.6-8.5); Neutrophils Absolute Auto 5.2 K/mm3 (1.3-6.7); Neutrophils Percent Auto 95.2 % (45.5-73.1); Platelet Count Result 83 k/mm3 (150-375); Red Blood Count 3.14 M/mm3 (4.2-5.4); Red Cell Distribution Width 16.3 % (11.5-14.5); White Blood Count 5.5 K/mm3 (4.5-10.0)
[2025-04-29 04:52] LABS: Alanine Aminotransferase 42 U/L (6-35); Albumin Level 3.4 g/dL (3.5-5.1); Alkaline Phosphatase 245 U/L (38-126); Anion Gap 10 mmol/L (4-12); Aspartate Amino Transferase 82 U/L (14-36); Bilirubin,Total 0.6 mg/dL (0.2-1.3); Blood Urea Nitrogen 69 mg/dL (7-17); Calcium 8.9 mg/dL (8.4-10.2); Carbon Dioxide 23 mmol/L (22-30); Chloride 105 mmol/L (98-107); Estimated CRCL calculation 15 ml/min; Estimated Glomerular Filt Rate 22; Glucose 369 mg/dL (65-110); Magnesium 2.3 mg/dL (1.6-2.3); Potassium 3.9 mmol/L (3.4-5.0); Sodium 138 mmol/L (137-145)
[2025-04-29] MEDS: LEVOTHYROXINE SODIUM 100 MCG TABLET PO (05:42)
[2025-04-29] MEDS: methylPREDNISolone SOD SUCC 40 MG VIAL IV PUSH ×3 (05:42→22:50)
[2025-04-29] MEDS: UMECLIDINIUM/VILANTEROL 62.5-25 MCG ELLIPTA 1 PUFF INHALATION (07:35)
[2025-04-29] MEDS: TAMSULOSIN HCL 0.4 MG CAPSULE PO (09:59)
[2025-04-29] MEDS: amLODIPine BESYLATE 5 MG TABLET PO (09:59)
[2025-04-29] MEDS: ESCITALOPRAM OXALATE 5 MG TABLET PO (09:59)
[2025-04-29] MEDS: lamoTRIgine 100 MG TABLET PO ×2 (09:59→20:27)
[2025-04-29] MEDS: PANTOPRAZOLE 40 MG TABLET PO ×2 (09:59→20:27)
[2025-04-29] MEDS: FUROSEMIDE 20 MG TABLET PO (09:59)
[2025-04-29 11:49] LABS: Glucose Point of Care 445 mg/dl (65-105)
[2025-04-29] MEDS: FERROUS SULFATE 325 MG TABLET DR BY MOUTH (12:14)
[2025-04-29] MEDS: LACTULOSE 20 GM/30 ML UDC PO ×2 (12:14→16:35)
[2025-04-29] MEDS: INSULIN GLARGINE (*BKC) 100 UNITS/ML 10 UNITS SUB-Q (13:12)
[2025-04-29] MEDS: INSULIN ASPART (*BKC) 100 UNITS/ML SUB-Q (13:12)
--- NOTE | 2025-04-29 15:20 | P.DS_ITS ---
DS: Admitting Diagnosis Discharge Date 04/29/25 Admitting Diagnosis Altered mental status DS: Discharge Diagnosis Discharge Diagnosis (1) COPD (chronic obstructive pulmonary disease): Code(s): J44.9 - Chronic obstructive pulmonary disease, unspecified Status: Chronic (2) Acute respiratory failure with hypoxia: Code(s): J96.01 - Acute respiratory failure with hypoxia Status: Acute DS: Summary Hospital Course Hospital Course: 79-year-old female past medical history of hemorrhagic CVA, liver cirrhosis and esophageal varices, CKD, hyperlipidemia, COPD, liver cirrhosis, diabetic peripheral neuropathy, asthma, bipolar disorder, depression/anxiety, hypertension, hypothyroidism who was brought to the ER from correction on account of altered mental status. Patient was nonverbal he at the time of this encounter and unable to provide a history. Was on BiPAP. According to ER documentation patient was last normal at about 7-8 p.m. when she received p.r.n. Verdon for pain control and was found lethargic. Next morning dose was reportedly ER by EMS. ER evaluation notable for blood pressure 194/67, saturation 78% on room air. Labs notable for a 10.3, ABG 7.26/49.2/78.1/21.6. Repeat ABG showed 7.216/55.9/94 /22.2 the patient was placed on BiPAP. A CT head, CT chest abdomen pelvis are remarkable. Creatinine 2.13, BUN 34, baseline creatinine is 1.5. Patient was managed for COPD exacerbation with BiPAP and bronchodilators and steroids. eventually weaned to room air. Discharged on Combivent and her home Anoro Ellipta. mental status return to baselined after PCO2 retention resolved. metabolic acidosis was managed with Bicarb infusion, resolved. YASSINE resolving Cr 2.14 today. f/u with PCP. Contineu lactulose however unable to start diuresis due to YASSINE, patient referrred to GI for follow up. Patient was started on Amlodipine and Tamsulosin for elevated blood pressure. Contineu Home Isorobide mononitrate F/u with PCP in 3-5 day G/u with GI referral Time Spent with Patient Time attestation: Total time spent providing and/or coordinating discharge services: DS: Data Data Completed and Pending Labs on day of discharge: Labs from last 24 hours 04/29/25 04/29/25 04/28/25 11:38 04:19 16:21 WBC 5.5 RBC 3.14 L Hgb 8.8 L Hct 28.0 L MCV 89.2 MCH 28.0 MCHC 31.4 L RDW 16.3 H Plt Count 83 L MPV 9.8 Immature Gran % (Auto) 0.7 H Neut % (Auto) 95.2 H Lymph % (Auto) 2.8 L [place] % (Auto) 1.3 L Eos % (Auto) 0.0 Baso % (Auto) 0.0 L Lymph # (Auto) 0.15 L [place] # (Auto) 0.1 Eos # (Auto) 0.0 Baso # (Auto) 0.0 Abs Immat Gran (auto) 0.04 H Absolute Neuts (auto) 5.2 Absolute Nucleated RBC 0.000 Nucleated RBC % 0.0 % Immature Plt Fraction 1.4 Puncture Site Right radial ABG pH 7.412 ABG pCO2 34.3 L ABG pO2 66.0 L ABG PO2/FiO2 Ratio 2.06 ABG HCO3 21.4 L ABG O2 Saturation 93.5 L ABG O2 Content 12.0 L ABG Base Excess -2.8 A-a Gradient 122.0 Oxyhemoglobin 92.0 Total Hemoglobin 9.2 L O2 Delivery Device Nasal cannula O2 Liters/Min 3.0 FiO2 32 Sodium 138 Potassium 3.9 Chloride 105 Carbon Dioxide 23 Anion Gap 10 BUN 69 H Creatinine 2.14 H Estim Creat Clear Calc 15 Estimated GFR 22 L Glucose 369 H POC Capillary Glucose 445 H Calcium 8.9 Magnesium 2.3 Total Bilirubin 0.6 AST 82 H ALT 42 H Alkaline Phosphatase 245 H Total Protein 6.0 L Albumin 3.4 L Discharge Plan Discharge Attending physician on discharge: Adan Hawthorne Consulting providers: Jason Murray Discharging Clinician: Adan Hawthorne Anticipated Discharge Date/Time: 04/29/25 15:11 Patient Disposition: NH [facility] Living Activity: as tolerated Diet: as tolerated and diabetic Patient Instructions: Antibiotic Form, Heart Failure (DC), COPD (Chronic Obstructive Pulmonary Disease) (DC) Patient Language: Mongolian Stand Alone Forms: General Discharge Information Follow-up/Referrals: Nicole,Mayo Henry DO [Primary Care Provider] - (F/u with PCP in 3-5 days ) Cale Blood MD [Physician] - (referral to GI in 2-4 weeks ) Discharge Medications: New tamsulosin 0.4 mg Capsule 0.4 mg PO QAM 30 Days Qty: 30 0RF Combivent Respimat 20-100 mcg/actuation mist 1 puff inhalation Q4H 30 Days Qty: 4 2RF amlodipine [Norvasc] 5 mg Tablet 5 mg PO DAILY 30 Days Qty: 30 1RF Continued hydrocodone-acetaminophen 5-325 mg tablet 1 tablet PO Q4H PRN (Reason: Pain Rated 4-6) Qty: 180 0RF atorvastatin 40 mg tablet 40 mg PO HS Patient Comments: . cholecalciferol (vitamin D3) 1,250 mcg (50,000 unit) Tablet 1,250 mcg PO WEEKLY Rx Instructions: sundays Sarna Original 0.5-0.5 % Lotion 1 applic TOPICAL DAILY PRN (Reason: pruritis) Patient Comments: . clobetasol 0.05 % ointment 1 applic TOPICAL PRN PRN (Reason: pruritus) Rx Instructions: apply liberally, topical, as needed, mix with ketoconazole 2% and apply to mid upper back. PRN bid escitalopram oxalate 5 mg tablet 5 mg PO DAILY acetaminophen 500 mg tablet 1,000 mg PO BID PRN (Reason: Pain (Scale Score 1-3)) Patient Comments: ...... Rx Instructions: take 2 tablets by mouth twice daily as needed gabapentin 600 mg tablet 100 mg PO TID lamotrigine 150 mg tablet 100 mg PO Q12H pantoprazole 40 mg Tablet,Delayed Release (Dr/Ec) 40 mg PO Q12HR Qty: 60 0RF furosemide 20 mg tablet 20 mg PO DAILY lactulose 10 gram/15 mL solution 30 g PO QID PreserVision AREDS 4,296 mcg-226 mg-90 mg Capsule 1 cap PO DAILY isosorbide mononitrate 30 mg Tablet Extended Release 24 Hr 30 mg PO QAM 30 Days Qty: 30 1RF morphine concentrate 100 mg/5 mL (20 mg/mL) solution 5 mg PO Q6H PRN (Reason: pain) ondansetron 4 mg tablet,disintegrating 4 mg translingual TID PRN (Reason: nausea and vomiting) Belsomra 10 mg tablet 10 mg PO HS ferrous sulfate [Iron (ferrous sulfate)] 325 mg (65 mg iron) tablet 325 mg PO DAILY levothyroxine [Synthroid] 150 mcg Tablet 100 mcg PO DAILY Anoro Ellipta 62.5-25 mcg/actuation blister with device 1 inh inhalation DAILY Qty: 60 2RF Rx Instructions: 1 puff by mouth daily Glucagon (HCl) Emergency Kit 1 mg recon soln 1 mg subcut Q20M PRN (Reason: Hypoglycemia) Rx Instructions: until target blood sugar attained hydroxyzine HCl 25 mg tablet 50 mg PO Q8H PRN (Reason: Itching) Date of admission: 04/26/25 14:04 Primary Care Provider: NicoleMayo Admitting Provider: Adan Hawthorne Attending physician on admission: Adan Hawthorne Condition: Stable
[2025-04-29 16:21] LABS: Glucose Point of Care 132 mg/dl (65-105)
[2025-04-29 17:48] LABS: Glucose Point of Care 77 mg/dl (65-105)
[2025-04-29 18:13] LABS: Glucose Point of Care 62 mg/dl (65-105)
[2025-04-29 18:26] LABS: Glucose Point of Care 125 mg/dl (65-105)
[2025-04-29 18:26] LABS: Glucose Point of Care 90 mg/dl (65-105)
--- NOTE | 2025-04-29 18:28 | PC.NURSE ---
ems arrived around 1740. Report given. EMS noted pt was A&Ox0 and looked in distress. Bg was 77 treated with apple juice, soda, and a snack BG recheck was 62 but trended up to 125 notified hospitalist who cancelled d/c until tomorrow for further monitoring.
--- NOTE | 2025-04-29 19:48 | P.CONUR_ITS ---
Assessment and Plan Assessment and plan (1) Cirrhosis of liver: Code(s): K74.60 - Unspecified cirrhosis of liver Status: Acute (2) Other extrapyramidal disease and abnormal movement disorder: Code(s): G25.89 - Other specified extrapyramidal and movement disorders Status: Acute (3) Chronic kidney disease: Code(s): N18.9 - Chronic kidney disease, unspecified Status: Acute (4) Retention of urine: Code(s): R33.9 - Retention of urine, unspecified Status: Acute Assessment and Plan: 79-year-old female with urinary retention admitted with respiratory acidosis respiratory failure with CKD. Urinary retention recommend continuing Mead catheter, aggressive bowel regimen, minimize narcotics, anticholinergics and sedatives, increase activity, physical therapy/ambulation, aggressive bowel regimen when patient is more ambulatory and bowels are moving regularly would advise outpatient voiding trial Urology Consult Note HPI Date Seen: 04/29/25 Requesting Physician: Adan Hawthorne MD Primary Care Provider: Mayo Rivera, DO Consult Narrative Narrative: Nisha Sigala is a 79 year old female Urology was consulted for urinary retention patient had a Mead catheter placed for inability to void patient states she has had some constipation issues and decreased mobility given she has been admitted for respiratory acidosis and respiratory failure. She is clinically improving and feeling better she has not been ambulating she is somewhat deconditioned from her pulmonary status. She denies ever seeing a urologist before her last bowel movement was a few days ago. Denies any hematuria dysuria frequent UTIs. Denies any stress or urge incontinence at baseline. Review of Systems 2 Constitutional: Constitutional: Reports as per HPI and Reports no additional constitutional complaints Eyes: Eyes: Reports as per HPI ENT: Denies Normal hearing present and Reports dysphagia Cardiovascular: Cardiovascular: Reports as per HPI and Reports no additional cardiovascular complaints Respiratory: Respiratory: Reports cough and Reports dyspnea on exertion Gastrointestinal: Gastrointestinal: Reports no additional gastrointestinal complaints and Denies abdominal pain Genitourinary: Genitourinary: Reports no additional female genitourinary complaints, Reports as per HPI and Denies flank pain Neurologic: Reports system reviewed and no additional complaints, except as documented Psychiatric: Psychiatric: Reports no additional psychiatric complaints PMFSH Past Medical History Medical History Chronic anemia Gastritis History of infection due to ESBL Escherichia coli Cerebrovascular accident 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 Frequent falls 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 Diabetic peripheral neuropathy Aortic stenosis Moderate on echocardiogram in November 2021. Osteoporosis Arthritis Asthma Bipolar disorder Anxiety Depression Hypertension Hypothyroidism Surgical History Surgical History History of cataract extraction with lens replacement History of cholecystectomy History of tonsillectomy History of section History of colonoscopy with polypectomy Most recent colonoscopy 01/2019 demonstrated colon spasm and diverticulosis performed by Dr. Moreno History of thyroidectomy History of bladder surgery History of partial hysterectomy Family History Family History Sibling Multiple sclerosis Father Acute myocardial infarction, Onset Age: 79 Cerebrovascular accident, Onset Age: 79 Mother Dementia Sibling Acute myocardial infarction, Onset Age: 65 Son Diabetes mellitus Other Depression Family history of arthritis Family history of elevated blood lipids Family history of thyroid disease Hypertension Social History Social History Social History: Surrogate medical decision maker: Gavino Sigala (son). Code status: Do not resuscitate. Smoking packs per day: 1 Smoking cigarettes per day: 20.0 Years smoked: 50 Smoking pack-years: 50.00 Smoking status: Former smoker Tobacco type: cigarettes Second hand tobacco smoke exposure: No Smoking end date: 11/30/18 Alcohol intake: never Substance use: never Substance use type: does not use Do You Feel Safe in your Home?: Yes Lack of Transportation: No Lack of Food: Never True Current Housing: I Have Housing Concerned About Future Housing: No Difficulty Paying Gas/Electric Bills: No Difficulty Paying for Meds: No Currently Unemployed: No Education: Decline to Answer Difficulty w/ Childcare or Family Care: No Living arrangements: [facility] Additional living arrangements comments: with 3 sons. Resident at [facility]. 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 Spiritual care concerns: No Meds Home Medications and Allergies Home Medications ?Medication ?Instructions ?Recorded ?Confirmed ?Type escitalopram oxalate 5 mg tablet 5 mg PO DAILY 08/21/21 04/26/25 History umeclidinium 62.5 mcg-vilanterol 1 inh inhalation DAILY #60 ea 10/15/21 04/26/25 Rx 25 mcg/actuation powdr for inhalation (Anoro Ellipta) glucagon HCl 1 mg solution for 1 mg subcut Q20M PRN Hypoglycemia 02/13/22 04/26/25 History injection (Glucagon (HCl) Emergency Kit) hydroxyzine HCl 25 mg tablet 50 mg PO Q8H PRN Itching 08/25/22 04/26/25 History acetaminophen 500 mg tablet 1,000 mg PO BID PRN Pain (Scale 09/14/22 04/26/25 History Score 1-3) atorvastatin 40 mg tablet 40 mg PO HS 01/22/23 04/26/25 History gabapentin 600 mg tablet 100 mg PO TID 01/22/23 04/26/25 History cholecalciferol (vitamin D3) 1,250 1,250 mcg PO WEEKLY 12/15/23 04/26/25 History mcg (50,000 unit) tablet lamotrigine 150 mg tablet 100 mg PO Q12H 05/17/24 04/26/25 History pantoprazole 40 mg tablet,delayed 40 mg PO Q12HR #60 tabs 05/21/24 04/26/25 Rx release hydrocodone 5 mg-acetaminophen 325 1 tablet PO Q4H PRN Pain Rated 4-6 06/08/24 04/26/25 Rx mg tablet #180 tabs furosemide 20 mg tablet 20 mg PO DAILY 08/16/24 04/26/25 History lactulose 10 gram/15 mL oral 30 g PO QID 08/16/24 04/26/25 History solution vitamins A,C,S-yfch-kactvn 4,296 1 cap PO DAILY 08/16/24 04/26/25 History mcg-226 mg-90 mg capsule (PreserVision AREDS) isosorbide mononitrate 30 mg 30 mg PO QAM 30 days #30 tabs 08/18/24 04/26/25 Rx tablet,extended release 24 hr camphor-menthol 0.5 %-0.5 % lotion 1 applic topical DAILY PRN pruritis 08/22/24 04/26/25 History (Sarna Original) clobetasol 0.05 % topical ointment 1 applic topical PRN PRN pruritus 08/22/24 04/26/25 History morphine concentrate 100 mg/5 mL 5 mg PO Q6H PRN pain 11/09/24 04/26/25 History (20 mg/mL) oral solution ondansetron 4 mg disintegrating 4 mg translingual TID PRN nausea 11/09/24 04/26/25 History tablet and vomiting ferrous sulfate 325 mg (65 mg 325 mg PO DAILY 04/26/25 04/26/25 History iron) tablet (Iron (ferrous sulfate)) levothyroxine 150 mcg tablet 100 mcg PO DAILY 04/26/25 04/26/25 History (Synthroid) suvorexant 10 mg tablet (Belsomra) 10 mg PO HS 04/26/25 04/26/25 History amlodipine 5 mg tablet (Norvasc) 5 mg PO DAILY 30 days #30 tabs 04/29/25 Rx ipratropium 20 mcg-albuterol 100 1 puff inhalation Q4H 30 days #4 04/29/25 Rx mcg/actuation mist for inhalation grams (Combivent Respimat) tamsulosin 0.4 mg capsule 0.4 mg PO QAM 30 days #30 caps 04/29/25 Rx Allergies Allergy/AdvReac Type Severity Reaction Status Date / Time alendronate sodium Allergy Unknown Verified 04/26/25 20:25 amantadine Allergy Unknown Verified 04/26/25 20:25 benztropine Allergy Other Verified 04/26/25 20:25 chlorpromazine Allergy Unknown Verified 04/26/25 20:25 levofloxacin Allergy Unknown Verified 04/26/25 20:25 Macrolide Antibiotics Allergy Unknown Verified 04/26/25 20:25 mirtazapine Allergy Unknown Verified 04/26/25 20:25 Quinolones Allergy Unknown Verified 04/26/25 20:25 topiramate Allergy Unknown Verified 04/26/25 20:25 Vital Signs Vital Signs - 24 hr 04/28/25 20:00 04/28/25 20:00 04/28/25 20:22 Temperature 36.7 C Pulse Rate 91 87 Respiratory Rate 20 Blood Pressure 155/96 H Pulse Oximetry 97 96 Oxygen Delivery Nasal Cannula Oxygen Flow Rate 2 Fraction of Inspired Oxygen 04/28/25 20:23 04/28/25 20:33 04/28/25 21:50 Temperature Pulse Rate 85 87 91 Respiratory Rate 16 16 20 Blood Pressure Pulse Oximetry 97 Oxygen Delivery Nasal Cannula Oxygen Flow Rate 3 Fraction of Inspired Oxygen 04/28/25 22:00 04/28/25 22:30 04/28/25 23:40 Temperature Pulse Rate 86 83 89 Respiratory Rate 20 26 H Blood Pressure Pulse Oximetry 94 93 Oxygen Delivery BiPAP BiPAP Oxygen Flow Rate Fraction of Inspired Oxygen 24 04/28/25 23:48 04/29/25 00:00 04/29/25 01:48 Temperature 36.6 C Pulse Rate 89 88 77 Respiratory Rate 26 H Blood Pressure 172/69 H Pulse Oximetry 93 Oxygen Delivery Oxygen Flow Rate Fraction of Inspired Oxygen 04/29/25 02:43 04/29/25 02:53 04/29/25 02:57 Temperature Pulse Rate 79 82 88 Respiratory Rate 16 16 31 H Blood Pressure Pulse Oximetry 97 Oxygen Delivery BiPAP Oxygen Flow Rate Fraction of Inspired Oxygen 04/29/25 04:00 04/29/25 04:00 04/29/25 04:00 Temperature 36.4 C L Pulse Rate 85 66 66 Respiratory Rate 28 H 28 H Blood Pressure 157/63 H Pulse Oximetry 96 96 Oxygen Delivery BiPAP Oxygen Flow Rate Fraction of Inspired Oxygen 24 04/29/25 05:15 04/29/25 07:23 04/29/25 07:23 Temperature Pulse Rate 85 92 Respiratory Rate 20 Blood Pressure Pulse Oximetry 92 Oxygen Delivery Nasal Cannula Oxygen Flow Rate 3 Fraction of Inspired Oxygen 04/29/25 07:32 04/29/25 07:35 04/29/25 08:00 Temperature 36.6 C Pulse Rate 89 95 95 Respiratory Rate 22 H 20 20 Blood Pressure 180/68 H Pulse Oximetry 94 94 Oxygen Delivery Nasal Cannula Oxygen Flow Rate 3 Fraction of Inspired Oxygen 32 04/29/25 08:00 04/29/25 10:00 04/29/25 12:00 Temperature Pulse Rate 94 96 95 Respiratory Rate 20 Blood Pressure Pulse Oximetry 89 L Oxygen Delivery Room Air Oxygen Flow Rate Fraction of Inspired Oxygen 32 04/29/25 12:00 04/29/25 12:00 04/29/25 13:31 Temperature 36.6 C Pulse Rate 91 101 H Respiratory Rate 22 H Blood Pressure 169/61 H Pulse Oximetry 98 99 Oxygen Delivery Nasal Cannula Oxygen Flow Rate 2 Fraction of Inspired Oxygen 28 04/29/25 13:42 04/29/25 13:49 04/29/25 13:51 Temperature Pulse Rate Respiratory Rate Blood Pressure Pulse Oximetry 92 91 92 Oxygen Delivery Room Air Room Air Oxygen Flow Rate Fraction of Inspired Oxygen 21 21 21 04/29/25 13:51 04/29/25 13:59 04/29/25 14:00 Temperature Pulse Rate 86 88 97 Respiratory Rate 20 20 Blood Pressure Pulse Oximetry Oxygen Delivery Oxygen Flow Rate Fraction of Inspired Oxygen 04/29/25 17:45 04/29/25 18:50 Temperature Pulse Rate 88 85 Respiratory Rate 24 H Blood Pressure 167/79 H Pulse Oximetry 91 Oxygen Delivery Oxygen Flow Rate Fraction of Inspired Oxygen Exam 2 Const: General: comfortable and no acute distress HENMT: Face/Nose/Sinus: Normal nares present Mouth: Yes moist mucous membranes abnormal Eyes: EOM: EOMs intact bilaterally Neck: Lymphatic: lymphadenopathy Resp: Effort & Inspection: normal respiratory effort Cardio: Rate: regular rate GI: Inspection: non-distended GI Palp: Yes Soft to palpation and No Tenderness to palpation present (GI) : Bimanual exam- vagina & uterus: bladder normal to palpation Urinary Catheter: Urinary Catheter: patent and draining and urine clear Skin: General skin exam: normal color Neuro: General: gait normal Extrem: General: normal to inspection Psych: Speech and movement: Normal speech and movement present Results Labs 04/29/25 04:19 04/29/25 04:19 Labs: Short CBC 04/29/25 Range/Units 04:19 WBC 5.5 (4.5-10.0) K/mm3 Hgb 8.8 L (12.0-15.0) g/dL Hct 28.0 L (37.0-47.0) % Plt Count 83 L (150-375) k/mm3 BMP 04/29/25 04:19 Sodium 138 Potassium 3.9 Chloride 105 Carbon Dioxide 23 BUN 69 H Creatinine 2.14 H Glucose 369 H Calcium 8.9 Liver Function 04/29/25 Range/Units 04:19 Total Bilirubin 0.6 (0.2-1.3) mg/dL AST 82 H (14-36) U/L ALT 42 H (6-35) U/L Alkaline Phosphatase 245 H (38-126) U/L Albumin 3.4 L (3.5-5.1) g/dL
[2025-04-29 19:56] LABS: Glucose Point of Care 127 mg/dl (65-105)
[2025-04-29] MEDS: ATORVASTATIN 40 MG TABLET PO (20:27)
[2025-04-29] MEDS: MELATONIN 5 MG TABLET PO (20:27)
--- NOTE | 2025-04-29 22:34 | PC.NURSE ---
7017 Destiny LOYA called per patient's complaint of pain. Destiny reviewing chart and will enter order.
[2025-04-30] VITALS (11 sets, daily range): BP systolic 125–180; BP diastolic 59–97; PULSE 79–90; RESP 12–20; TEMP 36.8–36.9; O2SAT 90–100
[2025-04-30] MEDS: IPRATROPIUM 0.5 MG/ALBUTEROL SULFATE 2.5 MG AMPUL.NEB 3 ML INHALATION ×2 (02:01→08:17)
[2025-04-30] MEDS: methylPREDNISolone SOD SUCC 40 MG VIAL IV PUSH (05:58)
[2025-04-30] MEDS: LEVOTHYROXINE SODIUM 100 MCG TABLET PO (05:59)
[2025-04-30 07:28] LABS: Glucose Point of Care 326 mg/dl (65-105)
[2025-04-30] MEDS: UMECLIDINIUM/VILANTEROL 62.5-25 MCG ELLIPTA 1 PUFF INHALATION (08:34)
[2025-04-30] MEDS: amLODIPine BESYLATE 5 MG TABLET PO (09:08)
[2025-04-30] MEDS: PANTOPRAZOLE 40 MG TABLET PO (09:08)
[2025-04-30] MEDS: TAMSULOSIN HCL 0.4 MG CAPSULE PO (09:08)
[2025-04-30] MEDS: ERGOCALCIFEROL (VITAMIN D2) 1,250 MCG (50,000 UNITS) CAPSULE 1250 MCG PO (09:08)
[2025-04-30] MEDS: ESCITALOPRAM OXALATE 5 MG TABLET PO (09:08)
[2025-04-30] MEDS: FUROSEMIDE 20 MG TABLET PO (09:08)
[2025-04-30] MEDS: lamoTRIgine 100 MG TABLET PO (09:08)
[2025-04-30] MEDS: LACTULOSE 20 GM/30 ML UDC PO (09:08)
[2025-04-30] MEDS: INSULIN ASPART (*BKC) 100 UNITS/ML SUB-Q (09:09)
[2025-04-30 11:54] LABS: Glucose Point of Care 346 mg/dl (65-105)
--- NOTE | 2025-04-30 12:13 | PC.NURSE ---
[facility] Viry. Pt left facility with EMS at 1217 via stretcher. BS at time of d/c 346 reported to EMS no insulin given. Pt voiced no complaints or concerns at time of d/c. Packet given to EMS and faxed to Sandy Hodges 04/29/24 Dio Olivarez RN
== END 2025-04-30 12:17 | DRG 190 ==
LOC: ANHED 06:54 → ANHIMU 10:11
PROVIDERS: Emergency Medicine; General Practice; Admitting Provider Internal Medicine; Emergency Provider Student in an Organized Health Care Education/Training Program; PCP Internal Medicine; Visit Provider Internal Medicine
DX: J44.1 Chronic obstructive pulmonary disease with (acute) exacerbation (principal); J96.01 Acute respiratory failure with hypoxia; N17.9 Acute kidney failure, unspecified; I13.0 Hypertensive heart and chronic kidney disease with heart failure and stage 1 through stage 4 chronic kidney disease, or unspecified chronic kidney disease; N18.4 Chronic kidney disease, stage 4 (severe); I50.32 Chronic diastolic (congestive) heart failure; I85.00 Esophageal varices without bleeding; E87.20 Acidosis, unspecified; I35.0 Nonrheumatic aortic (valve) stenosis; E11.22 Type 2 diabetes mellitus with diabetic chronic kidney disease; E11.42 Type 2 diabetes mellitus with diabetic polyneuropathy; E11.649 Type 2 diabetes mellitus with hypoglycemia without coma; E78.5 Hyperlipidemia, unspecified; E03.9 Hypothyroidism, unspecified; K74.60 Unspecified cirrhosis of liver; K75.81 Nonalcoholic steatohepatitis (NASH); K21.9 Gastro-esophageal reflux disease without esophagitis; K58.9 Irritable bowel syndrome, unspecified; M81.0 Age-related osteoporosis without current pathological fracture; R33.9 Retention of urine, unspecified; R29.6 Repeated falls; G24.9 Dystonia, unspecified; F31.9 Bipolar disorder, unspecified; F41.9 Anxiety disorder, unspecified; Z87.891 Personal history of nicotine dependence; Z86.73 Personal history of transient ischemic attack (TIA), and cerebral infarction without residual deficits; Z79.4 Long term (current) use of insulin
CPT/HCPCS: 36415; 36600; 70450; 71045; 71250; 74176; 80053; 80143; 80179; 80307; 81001; 82077; 82140; 82375; 82805; 82948; 83050; 83605; 83735; 84443; 85018; 85025; 85055; 85610; 85730; 93005; 94002; 94003; 94618; 94640; 96360; 96361; 99291; A9270; G0378; J1815; J2919; J7030; J7070; J7120

== ENCOUNTER 2025-05-01 10:05 | Inpatient (IN) | payer MEDICARE, MEDICAID, SELFPAY ==
[2025-05-01] VITALS (21 sets, daily range): BP systolic 162–186; BP diastolic 55–97; PULSE 83–105; RESP 16–28; TEMP 36.7–38.7; O2SAT 92–99; BMI 22.4
--- NOTE | ~2025-05-01 | XR_ITS ---
XR chest 1V portable 05/01/2025 11:15 Indication: Shortness of breath Procedure: AP portable chest Comparison: Comparison to multiple prior studies sequentially, with oldest reviewed study dated 02/2024. Findings: Cardiomegaly with worsening pulmonary edema. No significant effusion or pneumothorax. No ac agnieszka osseous abnormality. Impression: 1: Cardiomegaly with worsening pulmonary edema. Reviewed, dictated and finalized at location A. Impression: 1: Cardiomegaly with worsening pulmonary edema.
--- NOTE | ~2025-05-01 | CT_ITS ---
EXAMINATION: CT chest abdomen pelvis wo con DATE: 05/01/2025 15:10 INDICATION: Sepsis TECHNIQUE: Computed tomography (CT) of the chest, abdomen, and pelvis was performed with 100 mL Omnip aque-350 intravenous contrast. Automated exposure control and iterative reconstruction technique were employed. The dose-length product was 529.05 mGy-cm. COMPARISON: 04/26/2025 FINDINGS: CHEST CT: Small bilateral posterior layering pleural effusions. There are diffuse perihilar centrilobular groun dglass opacities and smooth septal line thickening with slight right-sided perihilar predominance and with favor moderate pulmonary edema. There is a of peripheral wedge-shaped region of groundglass opa city with a less patchy appearance of more peripheral than the previous noted opacities which could a lso be related to pulmonary edema but also raises possibility of either pneumonia or pulmonary emboli sm. Cardiomegaly. Atherosclerotic coronary artery calcific lesion. No pericardial effusion. Aortic va lve calcification. Thoracic aorta is normal in caliber. No pathologically enlarged thoracic lymphaden opathy. Mild upper thoracic levocurvature with mild to moderate spondylosis. ABDOMEN/PELVIS CT: Nodular cirrhotic liver with moderate amount of ascites in the abdomen and pelvis. Cholecystectomy cl ips the gallbladder fossa. Splenomegaly measuring 14.4 cm in craniocaudal length and suggestive of se condary portal venous hypertension. Pancreas, bilateral adrenal glands and kidneys are normal. There is motion artifact in the abdomen involving primarily the bowels anteriorly. No dilated bowel to sugg est obstruction. Moderate diverticulosis along the sigmoid colon without adjacent from trace strandin g to suggest diverticulitis. There are some wall thickening of the bladder which is decompressed arou nd a Mead catheter. There is also some new stranding in the extraperitoneal fat anterior to the blad obdulio which could be due to congestive heart failure or potentially cystitis. The uterus is not identif ied and has likely been surgically resected. No abscess or free intraperitoneal gas. No pathologicall y enlarged abdominal or pelvic lymphadenopathy. Severe lumbar spondylosis. IMPRESSION: 1. Likely worsening congestive heart failure with cardiomegaly, increasing small bilateral pleural ef fusions and worsening moderate bilateral pulmonary edema. 2. Focal region of groundglass and reticular opacities which appears less patchy and which is more pe ripheral and localized with wedge-shaped pattern suggesting possibility of superimposed pneumonia or pulmonary infarction. 3. Cirrhosis with mild splenomegaly suggesting secondary portal venous hypertension. 4. Moderate amount of ascites which could be due to liver disease and/or congestive heart failure. 5. Moderate sigmoid diverticulosis. 6. Bladder wall thickening which could be due to partially decompressed state around the Mead cathet er however there is also some stranding in the surrounding fat raising possibility of cystitis. Corre late with urinalysis. Reviewed, dictated and finalized at location A. IMPRESSION: 1. Likely worsening congestive heart failure with cardiomegaly, increasing smal l bilateral pleural effusions and worsening moderate bilateral pulmonary edema. 2. Focal region of groundglass and reticular opacities which appears less patch y and which is more peripheral and localized with wedge-shaped pattern suggesti ng possibility of superimposed pneumonia or pulmonary infarction. 3. Cirrhosis with mild splenomegaly suggesting secondary portal venous hyperten emeli. 4. Moderate amount of ascites which could be due to liver disease and/or conges tive heart failure. 5. Moderate sigmoid diverticulosis. 6. Bladder wall thickening which could be due to partially decompressed state a round the Mead catheter however there is also some stranding in the surroundin g fat raising possibility of cystitis. Correlate with urinalysis.
--- NOTE | 2025-05-01 10:12 | ECG_ITS ---
Test Date: 2025-05-01 10:21:28 Measurements Intervals [place] Rate: 102 P: 44 UT: 131 QRS: -46 QRSD: 137 T: 32 QT: 356 QTc: 465 Interpretive Statements SINUS TACHYCARDIA LEFT AXIS DEVIATION RIGHT BUNDLE BRANCH BLOCK BASELINE ARTIFACT- I, II, III, AVR, AVL,A VF, V1, V4-V6 ABNORMAL ECG Compared to ECG 04/26/2025 06:24:37 HEART RATE HAS INCREASED Electronically Signed On 05-01-2025 11:48:49 CDT by George Moyer D.O.
[2025-05-01 10:36] LABS: Base Excess ABG -0.8 mEq/l (+/-2.0); Fractional Inspired Oxygen 36 %; Oxygen Content ABG 11.9 %vol (16.0-22.0); PO2 FiO2 Ratio Arterial Blood 1.22 %; Total Hemoglobin 10.2 g/dL (12.0-18.0)
[2025-05-01 10:37] LABS: PCO2 ABG 22.1 mmHg (35.0-45.0); pH ABG 7.574 (7.350-7.450)
[2025-05-01 10:38] LABS: Device NASAL CANNULA; Modified Allen's Test Pass; Oxygen Saturation ABG 87.8 % (95.0-100.0); Oxyhemoglobin 82.9 % THb (90.0-100.0); Site Drawn RIGHT RADIAL
[2025-05-01 10:51] LABS: Basophils Percent Auto 0.1 % (0.2-1.2); Hematocrit 31.1 % (37.0-47.0); Hemoglobin 9.7 g/dL (12.0-15.0); Immature Granulocyte Absolute 0.09 K/mm3 (0.00-0.031); Immature Granulocyte Percent A 0.6 % (0-0.5); Lymphocytes Absolute Auto 0.38 K/mm3 (0.9-3.2); Lymphocytes Percent Auto 2.5 % (18.3-44.2); Mean Corpuscular HGB Conc 31.2 g/dl (32-36); Mean Corpuscular Volume 89.6 fl (80-100); Mean Platelet Volume 10.9 fl (7.4-10.4); Monocytes Absolute Auto 0.3 K/mm3 (0.1-0.6); Neutrophils Absolute Auto 14.7 K/mm3 (1.3-6.7); Neutrophils Percent Auto 94.8 % (45.5-73.1); Nucleated Red Blood Cells Perc 0.3 % (0.0-0.2); Platelet Count Result 102 k/mm3 (150-375); Red Blood Count 3.47 M/mm3 (4.2-5.4); Red Cell Distribution Width 16.6 % (11.5-14.5); White Blood Count 15.5 K/mm3 (4.5-10.0)
--- OUTSIDE RECORDS SUMMARY | 2025-05-01 10:59 | XMS_ITS | Clinical Summary ---
Author Organization [facility] [employer] Address [address] [place] [address] Care Team Providers Care Machine Grainer Name Role Phone Carlyn Domingo Guillermo DO Primary Care Provider [phone] Source Comments [facility] [employer],non-owned Affiliates and Associated Physician Practices is amultiple site organization consisting of ambulatory clinics and hospital sitesin [place], [place], [place] and [place]. This disclosure is being madepursuant to the Care Everywhere program and may not contain all information available regarding this patient. 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 Gender Identity Not on file Sexual Orientation Not on file Last Filed Vital Signs Vital Sign Reading Time Taken Comments Blood Pressure 148/52 02/05/2017 1:55 PM NAVAL GUNFI[employer] LIAISON OFFICER Pulse 87 02/05/2017 1:55 PM NAVAL G[employer]FI[employer] LIAISON OFFICER Temperature 36.8 C (98.2 F) 02/05/2017 1:55 PM NAVAL GUNFI[employer] LIAISON OFFICER Respiratory Rate 18 02/05/2017 1:55 PM NAVAL GUNFI[employer] LIAISON OFFICER Oxygen Saturation 100% 02/05/2017 1:55 PM NAVAL GUNFI[employer] LIAISON OFFICER Inhaled Oxygen Concentration - - Weight 74.5 kg (164 lb 3.2 oz) 02/05/2017 1:55 P M [employer]ISON OFFICER Height 149.9 cm (4' 11) 02/05/2017 1:55 PM NAVAL GUNFI[employer] LIAISON OFFICER Body Mass Index 33.16 02/05/2017 1:55 PM NAVAL GUNFI[employer] LIAISON OFFICER Plan of Treatment Health Maintenance Due Date [...] this topic Insurance MEDICARE MEDICARE MEDICAID - [id number] * Guarantor: KAYE LYLES Account Type Relation to Patient Date of Phone Billing Address Personal/Family [address] [place] [address] MEDICARE [place]ICAID - [id number] * Guarantor: KAYE LYLES Account Type Relation to Patient Date of Phone Billing Address Personal/Family [address] [place] [address] MEDICARE MEDICAID - [id number] * Guarantor: KAYE LYLES Account Type Relation to Patient Date of Phone Billing Address Personal/Family [address] [place] [address] MEDICARE MEDICAID - [place] Care Teams Machine Grainer Relationship Specialty Start Date End Date Domingo Alcocer DO [facility] - General 09/03/22
--- OUTSIDE RECORDS SUMMARY | 2025-05-01 10:59 | XMS_ITS | Encounter Summary ---
Author Organization [facility] Address [address] [place] [address] Care Team Providers Care Landing Worker Name Role Phone Domingo Alcocer DO Primary Care Provider [phone] Encounter Details Date Type Department Care Team (Late st Contact Info) Description 09/22/2022 Lab Requisition [facility] Care Pathology Lab [address] [place] [address] Nir Alvarado MD [address] [place] [address] Illness, unspecified Social History Tobacco Use Types Packs/Day Years Used Date Smoking Tobacco: Every Day Smokeless Tobacco: Never Alcohol Use Standard Drinks/Week Comments No 0 (1 standard drink = 0.6 oz pur e alcohol) Comments Unknown Sex and Gender Information Value Date Recorded Sex Assigned at Not on file Legal Sex Female 6:46 AM 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 - Hemodilute touch imprints. 09/23/2022 4:16 PM T [facility] PATHOLOGY LAB at 1616 CDT AP Comment Overall, the bone marrow specimen is slightly hypercellular for age with maturing trilineage hematopoiesis and no evidence of lymphoma or a high-grade myeloid neoplasm. Due to the limited nature of the touch imprints, adequate evaluation for dyspoiesis is limited. Correlation with clinical findings and relevant cytogenetic/molecular testing is recommended. 09/23/2022 4:16 PM T [facility] PATH[facility]Y [facility] Peripheral Smear Description Not received. 09/23/2022 4:16 PM [facility] Bone Marrow Aspirate The smears are hemodilute, aspiculate, and paucicellular. Mostly peripheral blood elements. Storage iron (by special stain): not evaluable for iron storage due to lack of spicules. Sideroblastic iron (by special stain): not evaluable due to lack of erythroid precursors. 09/23/2022 4:16 PM T [facility] PATH[facility] Bone Marrow Core [...] and T-cells, respectively. 09/23/2022 4:16 PM T [facility] Flow Cytometry Summary No flow performed. 09/23/2022 4:16 PM T [facility] PATH[facility] Clinical History The patient is 76-year-old woman with PMH of HTN, CKD, liver cirrhosis, COPD, stroke, and anemia. 09/23/2022 4:16 PM T [facility] Materials Received Received are 13 slides and one block (A1) labeled [id number] along with a copy of the outside pathology report. The materials originate from [facility], [address] [place] [address] [address] [facility], [place] [address]. All original materials are returned to the referring institution, along with a copy of our final report. 09/23/2022 4:16 PM T [facility] PATH[facility] Disclaimer The performance characteristics of all immunohistochemical and indirect immunofluorescence stains (if any) cited in this report were determined by the Histopathology Laboratory of [facility]. Some of these tests were developed by [...] attending (teaching) pathologist. 09/23/2022 4:16 PM T [facility] PATH[facility] Embedded Images 09/23/2022 4:16 PM T [facility] PATH[facility] Pathology/Cytolo gy BONE MARROW SPECIMEN / Unknown 09/16/2022 9:37 AM CDT 09/22/2022 11:11 AM CDT Nir Alvarado MD LAB - PATHOLOGY/CYTOLOGY ORDERAB LES Final Result Performing Organization Address City/State/[facility] Co de Phone Number [facility] [address] [phone] documented in this encounter Visit Diagnoses Diagnosis Illness, unspecified documented in this encounter Care Teams Landing Worker Relationship Specialty Start Date End Date Domingo Alcocer DO PCP - General 09/03/22 documented as of this encounter
--- OUTSIDE RECORDS SUMMARY | 2025-05-01 10:59 | XMS_ITS | Encounter Summary ---
Author Organization [facility] Address [address] [place] [address] Care Team Providers Care Acute Care Occupational Therapist Name Role Phone NehemiahDomingo haney DO Primary Care Provider [phone]- [phone] Encounter Details Date Type Department Care Team (Late st Contact Info) Description 10/06/2024 Lab Requisition [facility] [address] [place] [address] Jesse Bruce MD [address] [place] [address] Social History Tobacco Use Types Packs/Day Years Used Date Smoking Tobacco: Every Day Smokeless Tobacco: Never Alcohol Use Standard Drinks/Week Comments No 0 (1 standard drink = 0.6 oz pur e alcohol) Comments Unknown Sex and Gender Information Value Date Recorded Sex Assigned at Not on file Legal Sex Female 6:46 AM CIGAR HEAD PUNCHER Gender Identity Not on file Sexual Orientation Not on file documented as of this encounter Plan of Treatment Not on file documented as of this encounter Procedures Procedure Name Priority Date/Time Associated Diagnosis Comments AMMONIA STAT 10/06/2024 10:35 AM CIGAR HEAD PUNCHER documented in this encounter Results * AMMONIA (10/06/2024 10:35 AM CIGAR HEAD PUNCHER) Ammonia 54 18 - 72 umol/L 10/06/2024 10:53 AM CIGAR HEAD PUNCHER [facility] Blood BLOOD SPECIMEN / Unknown Venipuncture / Unknown 10/06/2024 10:35 AM CIGAR HEAD PUNCHER 10/06/2024 10:35 AM CIGAR HEAD PUNCHER us Jesse Bruce MD LAB - CHEMISTRY ORDERABLES Fi nal Result Performing Organization Address City/State[facility] Co de Phone Number [facility] [address] [place] [address] documented in this encounter Visit Diagnoses Not on filedocumented in this encounter Care Teams Acute Care Occupational Therapist Relationship Specialty Start Date End Date Domingo Alcocer DO PCP - General 09/03/22 documented as of this encounter
--- OUTSIDE RECORDS SUMMARY | 2025-05-01 10:59 | XMS_ITS | Continuity of Care Document ---
Author Organization [facility] [place] Address [address] [place] [address] Phone Care Team Providers Care Help Aid Name Role Phone [facility] Unavailable Unavail able Jason Quintanilla Unavailable Unavailable Procedures Procedure Date Miscellaneous Vision Service - Supplies BF Plastic Sphcyl [place] To +/-4d .12-2d Frames Deluxe Tax - Medical Eye Exam & Treatment Refraction No Script Office/outpatient Visit, Est No Script Eye Exam Established Pt No Script Visual Field Examination(s) Office/outpatient Visit, Est BF Plastic Sphcyl [place] To +/-4d .12-2d Frames Deluxe Anti-reflective Coating [employer] - Medical Eye Exam & Treatment Visual Functional Status Assessed Refraction Advance Directives Directive Yes / No Effective Date File Name No Information Encounters Encounter Description Practice Location Reason(s) For Visit Diagnoses Date Provider Providers Copied on Encounter [facility], [address], [place], [place], [id number], [place] tel:[phone] [facility] No Information 0-201 0 [facility] . [address] [facility], [address], [place], [place], [address], [place]. tel:[phone] Referring Provider: Kaleb Langston OD A, [address], [place], [address]. tel:[phone] beach Provider: Jason Quintanilla, [facility], [place], [address]. tel:[phone] [facility], [address], [place], [place], [address], [place] tel:[phone] [facility] [place] No Information 1-201 0 [facility] . [address] [facility], [address], [place], [place], [address], [place]. tel:[phone] Referring Provider: Kaleb Langston OD A, [address] [place], [place] [address]ate [address], [place], [address]. tel:[phone] beach Provider: Jason Quintanilla, [address] [place], [place] [address]ate [facility], [place], [address]. tel:[phone], [address] [place] [address] [address], [place], [place], [address], [place] tel:[phone] SEC [facility] [place] No Information 6-201 0 Langston OD [place]. [address] [place], [place] [address]ate Center , [address], [place], [address], [place]. tel:[phone] Office/outpat ient Visit, [facility], [address] [place] [address] [address], [place], [place], [address], [place] tel:[phone] SEC [facility] [place] No Information Mar-2 5-200 9 Langston OD [facility]aleb. [facility] , [address], [place], [address], [place]. tel:[phone] [facility], [address] [place] [address] [address], [place], [place], [address], [place] tel:[phone] SEC [facility] No Information Mar-1 8-200 9 Langston OD Kaleb. [address] , [address], [place], [address], [place]. tel:[phone] [facility], [address] [place] [address] [address], [place], [place], [address], [place] tel:[phone] SEC [facility] No Information March-3 0-200 8 Italia Henderson. [address] [place] [address] , [address], [place], [address], [place]. tel:[phone] Referring Provider: Santiago Estevez, [address] [place] [address] [address], [place], [address]. tel:[phone] Office/outpat ient Visit, [facility], [address] [place] [address] [address], [place], [place], [address], [place] tel:[phone] SEC [facility] No Information March-2 9-200 8 Italia Henderson. [address] [place] [address] , [address], [place], [address], [place]. tel:[phone] [facility], [address] [place] [address] [address], [place], [place], [id number], [place] tel:[phone] SEC [facility] No Information Oct-0 4-200 7 [facility] . [address] [facility], [address], [place], [place], [address], [place]. tel:[phone] Referring Provider: Santiago Estevez, [address] [place] [address] [address], [place], [address]. tel:[phone] sulting Provider: Jason Quintanilla, [address] [place], [place] [address] Ctr, [place], [address]. tel:[phone] [facility], [address] [place] [address] [address], [place], [place], [address], [place] tel:[phone] SEC [facility] No Information Sep-1 7-200 7 Italia Henderson. [address] [place] [address] , [address], [place], [address], [place]. tel:[phone] Family History Family Member Type Diagnosis Age At Onset No Information Payers Payer name Insurance type Covered libertarian ID Authoriza tion(s) No Information Social History [...]
--- OUTSIDE RECORDS SUMMARY | 2025-05-01 10:59 | XMS_ITS | CONTINUITY OF CARE DOCUMENT ---
Author Name chloé luevano Address Unknown Organization [facility] Address [address] [address] [place] [address] Phone [phone] Care Team Providers Care Research/Program Director Name Role Phone Anthony Payne MD Unavailable ARELIS JOY DO Unavailable [phone] ARELIS JOY DO Unavailable [phone] INSURANCE PROVIDERS Payer name Policy type / Coverage type [place] red libertarian [place] RAILROAD MEDICARE Medicare [id number]
--- OUTSIDE RECORDS SUMMARY | 2025-05-01 10:59 | XMS_ITS | Referral Summary ---
Author Organization [facility] Address [address] [place] [address] Care Team Providers Care Fingerer Name Role Phone Domingo Alcocer DO Primary Care Provider [phone] Allergies Active Allergy Reactions Criticality Noted Date Comments Alendronate Unknown 12/27/2019 Amantadine Other (See comments) Low 03/19/2011 Reaction: Benztropine Other (See comments) Low 03/19/2011 Reaction: Chlorpromazine Unknown 12/27/2019 Losartan Unknown 12/27/2019 Macrolide Antibiotics Other (See comments) Low 03/31 Reaction: Mirtazapine Other (See comments) Low 03/12/2017 Reaction: Ondansetron Unknown 12/27/2019 Quinolones Other (See comments) Low 03/19/2011 Reaction: Topiramate Unknown 12/27/2019 Medications cholecalciferol (VITAMIN D-3) 2,000 unit tablet Active traZODone (DESYREL) 100 mg tablet Take 100 mg by mouth nightly Active ferrous sulfate 325 mg (65 mg of elemental iron) tablet Take 325 mg by mouth daily 0 Active TRUEPLUS LANCETS 30 gauge misc USE TO TEST BLOOD SUGAR QID 0 Active TRUEPLUS PEN NEEDLE 31 gauge x 5/16 needle TEST UP TO QID 9 Active asenapine maleate (SAPHRIS) 5 mg tablet, sublingual DISSOLVE 1 T UNDER THE TONGUE QAM AND 2 TS UNDER THE TONGUE QPM 9 Active gabapentin (NEURONTIN) 600 mg tablet Take 600 mg by mouth 2 (two) times a day Active TRUE METRIX GLUCOSE TEST STRIP strip USE TO CHECK BLOOD SUGAR QID 9 Active lamoTRIgine (LaMICtal) 150 mg tablet Take 1 tablet (150 mg total) by mouth 2 (two) times a day 60 tablet 0 Active levothyroxine (SYNTHROID) 125 mcg tablet Take 1 tablet (125 mcg total) by mouth daily 0 Active lisinopril (PRINIVIL,ZESTR IL) 10 mg tablet Take 1 tablet (10 mg total) by mouth daily 30 tablet [address] (PROTONIX) 40 mg EC tabletIndicatio ns:Treatment of Non-Bleeding Gastric Disorder Take 1 tablet (40 mg total) by mouth daily 30 tablet 0 Active acetaminophen (TYLENOL) 325 mg tabletIndicatio ns:Pain Take 2 tablets (650 mg total) by mouth every 4 (four) hours as needed for pain 30 tablet 0 Active amLODIPine (NORVASC) 10 mg tablet Take 1 tablet (10 mg total) by mouth daily 30 tablet 11 0 Active docusate sodium (COLACE) 100 mg capsuleIndicati ons:constipatio n,Stool Softener Take 1 capsule (100 mg total) by mouth 2 (two) times a day 0 Active LORazepam (ATIVAN) 0.5 mg tablet Take 3 tablets (1.5 mg total) by mouth 3 (three) times a day 30 tablet 0 Active raNITIdine (ZANTAC) 300 mg tablet ranitidine 300 mg tablet Active escitalopram (LEXAPRO) 10 mg tablet escitalopram 10 mg tablet TK 1 T PO QD Active diclofenac DR (VOLTAREN) 75 mg EC tablet diclofenac sodium 75 mg tablet,delayed release Active DULoxetine DR (CYMBALTA) 30 mg capsule duloxetine 30 mg capsule,delayed release Active citalopram (CeleXA) 20 mg tablet citalopram 20 mg tablet Active albuterol HFA (ProAir HFA) 90 mcg/actuation inhaler ProAir HFA 90 mcg/actuation aerosol inhaler Active ALPRAZolam (XANAX) 2 mg tablet alprazolam 2 mg tablet Active DULoxetine DR (CYMBALTA) 60 mg capsule duloxetine 60 mg capsule,delayed release TK 1 C PO ONCE A DAY 0 Active Victoza 2-Omar 0.6 mg/0.1 mL (18 mg/3 mL) injection Inject 1.2 mg under the skin daily 1 Active aspirin 81 mg enteric coated tablet Take 1 tablet (81 mg total) by mouth daily 30 tablet 1 Active rosuvastatin (CRESTOR) 20 mg tablet Take 1 tablet (20 mg total) by mouth daily 30 tablet 1 Active Active Problems Problem Noted Date Diagnosed Date Intraparenchymal hemorrhage of brain 01/11/2020 Polyp of transverse colon 03/10/2019 Overview (03/10/2019): Added automatically from request for surgery [id number] Diabetic peripheral neuropat hy associated with type 2 diabetes mellitus 09/14/2018 Backache 01/07/2018 Depressive disorder 01/07/2018 Type 2 diabetes mellitus wit h other diabetic kidney complication 08/23/2017 Essential (primary) hypertension 08/23/2017 Social History Tobacco Use Types Packs/Day Years Used Date Smoking Tobacco: Former Cigarettes Q uit: 09/03/2016 Smokeless Tobacco: Never Alcohol Use Standard Drinks/Week Comments Never 0 (1 standard drink = 0.6 oz pur e alcohol) AUDIT-C Answer Date Recorded Frequency of Alcohol Consumption Never 04/26/2019 Average Number of Drinks Not on file 019 Frequency of Binge Drinking Not on file 03/31 PHQ-2 Answer Date Recorded PHQ-2 Score 0 01/06/2020 Personal Safety Answer Date Recorded Getting School Help Needed Not on file 12/03 Comments Unknown Sex and Gender Information Value Date Recorded Sex Assigned at Not on file Legal Sex Female 12:34 AM SAFETY PHYSICIAN Gender Identity Not on file Sexual Orientation Not on file Last Filed Vital Signs Vital Sign Reading Time Taken Comments Blood Pressure 134/72 07/03/2021 8:10 AM CDT Pulse 67 07/03/2021 8:10 AM CDT Temperature 36.4 C (97.5 F) 01/19/2020 7:37 PM SAFETY PHYSICIAN Respiratory Rate 24 01/19/2020 7:37 PM SAFETY PHYSICIAN Oxygen Saturation 97% 07/03/2021 8:10 AM CDT Inhaled Oxygen Concentration - - Weight 64.4 kg (142 lb) 07/03/2021 8:10 AM CDT Height 149.9 cm (4' 11) 07/03/2021 8:10 AM CDT Body Mass Index 28.68 07/03/2021 8:10 AM CDT Plan of Treatment Not on file Insurance MEDICARE [facility]AD [facility] MEDIC[facility] RAILROAD [employer] Advance Directives For more information, please contact: [phone] Documents on File Type Date Recorded Patient Bioinformatics Computer Scientist Expl anation ADVANCE DIRECTIVE 01/13/2020 8:40 AM POWER OF MANUFACTURER'S REPRESENTATIVE-MEDICAL ADVANCE DIRECTIVE 01/09/2020 1:00 AM POWER OF MANUFACTURER'S REPRESENTATIVE-MEDICAL * Full Code (Latest Code Status on File) Date Activated Date Inactivated Comments 01/05/2020 3:28 PM 01/11/2020 2:25 PM * LIMITED - No CPR Date Activated Date Inactivated Comments 01/04/2020 5:03 PM 01/05/2020 3:28 PM Question Answer Comments Provide aggressive medical m anagement before a full cardiopulmonary arrest occurs. Use antibiotics, IV Fluids, and medical treatment unless specifically selected below: No intubationNo cardioversion Discussed with the following attending physician: Dr. Burroughs * Full Code Date Activated Date Inactivated Comments 01/04/2020 3:16 PM 01/04/2020 5:03 PM * Full Code Date Activated Date Inactivated Comments 04/26/2019 10:01 AM 04/26/2019 4:06 PM * Full Code Date Activated Date Inactivated Comments 04/26/2019 10:01 AM 04/26/2019 10:01 AM Care Teams Fingerer Relationship Specialty Start Date End Date Domingo Alcocer DO PCP - General Internal Medicine 11/10/18
--- OUTSIDE RECORDS SUMMARY | 2025-05-01 10:59 | XMS_ITS | Clinical Summary ---
Author Organization [facility] Address [address] [place] [address] Care Team Providers Care Deck Supervisor Name Role Phone Domingo Alcocer DO Primary Care Provider [phone] Allergies Active Allergy Reactions Criticality Noted Date [...] (03/10/2019): Added automatically from request for surgery [id number] Diabetic peripheral neuropat hy associated with type 2 diabetes mellitus 09/14/2018 Backache 01/07/2018 Depressive disorder 01/07/2018 Type 2 diabetes mellitus wit h other diabetic kidney complication 08/23/2017 Essential (primary) hypertension 08/23/2017 Surgical History Surgery Date Site/Laterality Comments SECTION HYSTERECTOMY BLADDER SURGERY CATARACT EXTRACTION, BILATERAL CHOLECYSTECTOMY TONSILLECTOMY Medical History Medical History Date Comments Hypothyroidism Hypertension Colon polyp GERD (gastroesophageal reflux disease) Bipolar disorder (HCC) Stroke (HCC) Type 2 diabetes mellitus wit h other diabetic kidney complication (HCC) 08/23/2017 Anemia Anxiety Asthma Arthritis Cataracts, bilateral Chronic renal failure COPD (chronic obstructive pulmonary disease) (HC C) CVA (cerebral vascular accident) (HCC) Depression Hyperlipidemia Family History Medical History Relation Name Comments Heart attack Brother 1 Multiple sclerosis Brother 2 Heart attack Father Stroke Father Alzheimer's disease Mother Relation Name Status Comments Brother 1 (Age 58) Brother 2 (Age 55) Father (Age 85) Mother (Age 90) Social History Tobacco Use Types Packs/Day Years [...] on file Legal Sex Female 12:34 AM LIAISON OFFICER Gender Identity Not on file Sexual Orientation Not on file Obstetrics History Last Filed Vital Signs Vital Sign Reading Time Taken Comments Blood Pressure 134/72 07/03/2021 8:10 AM CDT Pulse 67 07/03/2021 8:10 AM CDT Temperature 36.4 C (97.5 F) 01/19/2020 7:37 PM LIAISON OFFICER Respiratory Rate 24 01/19/2020 7:37 PM LIAISON OFFICER Oxygen Saturation 97% 07/03/2021 8:10 AM CDT Inhaled Oxygen Concentration - - Weight 64.4 kg (142 lb) 07/03/2021 8:10 AM CDT Height 149.9 cm (4' 11) 07/03/2021 8:10 AM CDT Body Mass Index 28.68 07/03/2021 8:10 AM CDT Plan of Treatment Not on file Insurance MEDICARE [employer] MEDICARE RAILROAD [facility] MEDICARE RAILROAD Advance Directives For more information, please contact: [phone] Documents on File Type Date Recorded Patient Drum Loader And Unloader Expl anation ADVANCE DIRECTIVE 01/13/2020 8:40 AM POWER OF RELOCATION SPECIALIST-MEDICAL ADVANCE DIRECTIVE 01/09/2020 1:00 AM POWER OF RELOCATION SPECIALIST-MEDICAL * Full Code (Latest Code Status on [...] 10:01 AM 04/26/2019 10:01 AM Care Teams Deck Supervisor Relationship Specialty Start Date End Date Domingo Alcocer DO PCP - General Internal Medicine 11/10/18
[2025-05-01 11:01] LABS: Alanine Aminotransferase 56 U/L (6-35); Albumin Level 3.3 g/dL (3.5-5.1); Alkaline Phosphatase 233 U/L (38-126); Anion Gap 8 mmol/L (4-12); Aspartate Amino Transferase 116 U/L (14-36); Bilirubin,Total 1.3 mg/dL (0.2-1.3); Blood Urea Nitrogen 58 mg/dL (7-17); Carbon Dioxide 29 mmol/L (22-30); Chloride 103 mmol/L (98-107); Estimated Glomerular Filt Rate 22; Glucose 205 mg/dL (65-110); Potassium 4.6 mmol/L (3.4-5.0); Sodium 140 mmol/L (137-145)
[2025-05-01 11:02] LABS: INR 1.4; Prothrombin Time 17.3 Seconds (11.1-14.7)
[2025-05-01 11:03] LABS: Lactic Acid Reflex 4.3 mmol/L (0.7-2.0)
[2025-05-01 11:14] LABS: NT Pro B Type Natriuretic Pept > 30000 pg/mL (19.9-100)
[2025-05-01 12:48] LABS: Reflex Lactic Acid Yes or No Add Lactic
[2025-05-01 13:14] LABS: Lactic Acid 3.1 mmol/L (0.7-2.0)
[2025-05-01] MEDS: SODIUM CHLORIDE 0.9% IV 1,000 ML 999 ML IV CONT (13:51)
[2025-05-01 14:25] LABS: Add Urine Microscopic? YES; Appearance Urine Cloudy (Clear); Bacteria Urine 2+ /hpf; Bilirubin Urine Negative (Negative); Blood Urine 2+ (Negative); Color Urine Yellow (Yellow); Glucose Urine UA Trace mg/dL (Negative); Ketones Urine Trace mg/dL (Negative); Leukocyte Esterase Ur 2+ LEU/UL (Negative); Need Manual Microscopic Reviewed; Nitrate Urine Negative (Negative); Protein Urine 4+ mg/dL (Negative); RBC Urine 21-50 /hpf (0-2); Specific Grav Ur 1.018 (1.001-1.035); Squamous Epithelial Cell Urine None Seen /hpf (Few); WBC Urine >100 /hpf (0-3); pH Urine 7.5 (5.0-9.0)
--- NOTE | 2025-05-01 14:25 | ED_ITS ---
HPI - SOB/Dyspnea General Chief Complaint: Shortness of Breath/Dyspnea Stated Complaint: resp. distress Time Seen by Provider: 05/01/25 10:11 Source: EMS Mode of arrival: EMS Limitations: dementia History of Present Illness HPI Narrative: 79-year-old with a history of dementia, COPD on home oxygen, respiratory failure, cirrhosis of the liver, CKD, discharged recently from the hospital yesterday to the group home was brought back to the ER with a complains of increased shortness of breath. Patient is nonverbal. As per the group home her SpO2 was in 70s. MD elicited complaint: shortness of breath Pertinent past history: COPD Onset (ago): day(s) (1) Context: recent illness Timing: constant Severity: moderate Exacerbating factors: nothing Known history of: COPD Related Data Home Medications ?Medication ?Instructions ?Recorded ?Confirmed ?Last Taken ?Type escitalopram oxalate 5 mg tablet 5 mg PO DAILY 08/21/21 04/26/25 11/09/24 History glucagon HCl 1 mg solution for 1 mg subcut Q20M PRN Hypoglycemia 02/13/22 04/26/25 Unknown History injection (Glucagon (HCl) Emergency Kit) hydroxyzine HCl 25 mg tablet 50 mg PO Q8H PRN Itching 08/25/22 04/26/25 11/08/24 History acetaminophen 500 mg tablet 1,000 mg PO BID PRN Pain (Scale 09/14/22 04/26/25 11/08/24 History Score 1-3) atorvastatin 40 mg tablet 40 mg PO HS 01/22/23 04/26/25 11/08/24 History gabapentin 600 mg tablet 100 mg PO TID 01/22/23 04/26/25 11/09/24 History cholecalciferol (vitamin D3) 1,250 1,250 mcg PO WEEKLY 12/15/23 04/26/25 11/06/24 History mcg (50,000 unit) tablet lamotrigine 150 mg tablet 100 mg PO Q12H 05/17/24 04/26/25 11/09/24 History furosemide 20 mg tablet 20 mg PO DAILY 08/16/24 04/26/25 11/08/24 History lactulose 10 gram/15 mL oral 30 g PO QID 08/16/24 04/26/25 11/08/24 History solution vitamins A,C,F-gzdc-xdwhmt 4,296 1 cap PO DAILY 08/16/24 04/26/25 11/08/24 History mcg-226 mg-90 mg capsule (PreserVision AREDS) camphor-menthol 0.5 %-0.5 % lotion 1 applic topical DAILY PRN pruritis 08/22/24 04/26/25 11/08/24 History (Sarna Original) clobetasol 0.05 % topical ointment 1 applic topical PRN PRN pruritus 08/22/24 04/26/25 11/08/24 History morphine concentrate 100 mg/5 mL 5 mg PO Q6H PRN pain 11/09/24 04/26/25 11/07/24 History (20 mg/mL) oral solution ondansetron 4 mg disintegrating 4 mg translingual TID PRN nausea 11/09/24 04/26/25 10/14/24 History tablet and vomiting ferrous sulfate 325 mg (65 mg 325 mg PO DAILY 04/26/25 04/26/25 Unknown History iron) tablet (Iron (ferrous sulfate)) levothyroxine 150 mcg tablet 100 mcg PO DAILY 04/26/25 04/26/25 Unknown History (Synthroid) suvorexant 10 mg tablet (Belsomra) 10 mg PO HS 04/26/25 04/26/25 Unknown History Allergies Allergy/AdvReac Type Severity Reaction Status Date / Time alendronate sodium Allergy Unknown Verified 04/26/25 20:25 amantadine Allergy Unknown Verified 04/26/25 20:25 benztropine Allergy Other Verified 04/26/25 20:25 chlorpromazine Allergy Unknown Verified 04/26/25 20:25 levofloxacin Allergy Unknown Verified 04/26/25 20:25 Macrolide Antibiotics Allergy Unknown Verified 04/26/25 20:25 mirtazapine Allergy Unknown Verified 04/26/25 20:25 Quinolones Allergy Unknown Verified 04/26/25 20:25 topiramate Allergy Unknown Verified 04/26/25 20:25 Review of Systems 2 Review of Systems: ROS unobtainable: Yes unobtainable due to medical condition (demetia) PMFSH Past Medical History Medical History Chronic anemia Gastritis History of infection due to ESBL Escherichia coli Cerebrovascular accident 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 Frequent falls 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 Diabetic peripheral neuropathy Aortic stenosis Moderate on echocardiogram in November 2021. Osteoporosis Arthritis Asthma Bipolar disorder Anxiety Depression Hypertension Hypothyroidism Surgical History Surgical History History of cataract extraction with lens replacement History of cholecystectomy History of tonsillectomy History of section History of colonoscopy with polypectomy Most recent colonoscopy 01/2019 demonstrated colon spasm and diverticulosis performed by Dr. Moreno History of thyroidectomy History of bladder surgery History of partial hysterectomy Family History Family History Sibling Multiple sclerosis Father Acute myocardial infarction, Onset Age: 79 Cerebrovascular accident, Onset Age: 79 Mother Dementia Sibling Acute myocardial infarction, Onset Age: 65 Son Diabetes mellitus Other Depression Family history of arthritis Family history of elevated blood lipids Family history of thyroid disease Hypertension Social History Social History Social History: Surrogate medical decision maker: Gavino Sigala (son). Code status: Do not resuscitate. Smoking packs per day: 1 Smoking cigarettes per day: 20.0 Years smoked: 50 Smoking pack-years: 50.00 Smoking status: Former smoker Tobacco type: cigarettes Second hand tobacco smoke exposure: No Smoking end date: 11/30/18 Alcohol intake: never Substance use: never Substance use type: does not use Do You Feel Safe in your Home?: Yes Lack of Transportation: No Lack of Food: Never True Current Housing: I Have Housing Concerned About Future Housing: No Difficulty Paying Gas/Electric Bills: No Difficulty Paying for Meds: No Currently Unemployed: No Education: Decline to Answer Difficulty w/ Childcare or Family Care: No Living arrangements: group home Additional living arrangements comments: with 3 sons. Resident at [facility]. 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 Spiritual care concerns: No Exam 2 Narrative: GENERAL: Ill appearing in moderate respiratory distress .. HEAD: Normocephalic, atraumatic. EYES: PERRLA and EOMI. ENT: Nares clear, no rhinorrhea or epistaxis. Mucous membranes moist. NECK: Supple. CHEST: decreased air entry HEART: Regular rate and rhythm. No murmur heard. Normal peripheral pulses. ABDOMEN: Soft, nontender, nondistended, normal active bowel sounds. EXTREMITIES: Normal range of motion. No edema. SKIN: Warm, dry, no rash. NEURO: No focal deficits. Alert . PSYCH: Normal mood and affect. Course Course Emergency Course: No significant change however she seems to be more relaxed at this time. will admit her to the hospital Discussed with Dr Carolyn ramos Cards consult , and CT chest ,abd and pelvis . i did discuss with Dr. Castro will consult . pts son is here at the bed side , i did notify him about her lab and Xray findings , he is considering Hospice. will discuss and make a decision . Vital Signs Vital signs: Vital Signs Temperature 37.4 C 05/01/25 10:08 Pulse Rate 104 H 05/01/25 10:08 Respiratory Rate 16 05/01/25 10:08 Blood Pressure 167/70 H 05/01/25 10:08 Pulse Oximetry 96 05/01/25 10:08 Oxygen Delivery Nasal Cannula 05/01/25 10:08 Oxygen Flow Rate 4 05/01/25 10:08 Temperature 38.7 C H 05/01/25 13:15 Pulse Rate 99 05/01/25 16:28 Respiratory Rate 26 H 05/01/25 16:28 Blood Pressure 164/64 H 05/01/25 16:28 Pulse Oximetry 95 05/01/25 16:28 Oxygen Delivery Nasal Cannula 05/01/25 10:32 Oxygen Flow Rate 4 05/01/25 10:32 MDM - SOB/Dyspnea Differential Diagnosis Differential diagnosis: Likely acute exacerbation of chronic obstructive airways disease, congestive heart failure, community acquired pneumonia and asthma with exacerbation Medical Records Attestation: I reviewed the patient's medical records. Lab Data Attestation: I reviewed the patient's lab results. 05/01/25 10:46 05/01/25 10:46 Labs: Lab Results 05/01/25 05/01/25 05/01/25 Range/Units 10:46 12:58 13:57 WBC 15.5 H (4.5-10.0) K/mm3 RBC 3.47 L (4.2-5.4) M/mm3 Hgb 9.7 L (12.0-15.0) g/dL Hct 31.1 L (37.0-47.0) % MCV 89.6 (80-100) fl MCH 28.0 (26-34) pg MCHC 31.2 L (32-36) g/dl RDW 16.6 H (11.5-14.5) % Plt Count 102 L (150-375) k/mm3 MPV 10.9 H (7.4-10.4) fl Immature Gran % (Auto) 0.6 H (0-0.5) % Neut % (Auto) 94.8 H (45.5-73.1) % Lymph % (Auto) 2.5 L (18.3-44.2) % [place] % (Auto) 2.0 L (2.6-8.5) % Eos % (Auto) 0.0 (0-4.4) % Baso % (Auto) 0.1 L (0.2-1.2) % Lymph # (Auto) 0.38 L (0.9-3.2) K/mm3 [place] # (Auto) 0.3 (0.1-0.6) K/mm3 Eos # (Auto) 0.0 (0-0.3) K/mm3 Baso # (Auto) 0.0 (0.0-0.1) K/mm3 Abs Immat Gran (auto) 0.09 H (0.00-0.031) K/mm3 Absolute Neuts (auto) 14.7 H (1.3-6.7) K/mm3 Absolute Nucleated RBC 0.040 H (0.0-0.012) K/mm3 Nucleated RBC % 0.3 H (0.0-0.2) % PT 17.3 H (11.1-14.7) Seconds INR 1.4 Sodium 140 (137-145) mmol/L Potassium 4.6 (3.4-5.0) mmol/L Chloride 103 (98-107) mmol/L Carbon Dioxide 29 (22-30) mmol/L Anion Gap 8 (4-12) mmol/L BUN 58 H D (7-17) mg/dL Creatinine 2.20 H (0.7-1.0) mg/dL Estim Creat Clear Calc Not Reportable Estimated GFR 22 L (59 - ) Glucose 205 H (65-110) mg/dL Lactic Acid 4.3 H* 3.1 H (0.7-2.0) mmol/L Calcium 9.0 (8.4-10.2) mg/dL Total Bilirubin 1.3 (0.2-1.3) mg/dL AST 116 H (14-36) U/L ALT 56 H (6-35) U/L Alkaline Phosphatase 233 H (38-126) U/L Troponin I 12.500 H* (0.000-0.034) ng/mL NT-Pro-B Natriuret Pep > 73644 H (19.9-100) pg/mL Total Protein 6.0 L (6.3-8.2) g/dL Albumin 3.3 L (3.5-5.1) g/dL Urine Color Yellow (Yellow) Urine Appearance Cloudy H (Clear) Urine pH 7.5 (5.0-9.0) Ur Specific [place] 1.018 (1.001-1.035) Urine Protein 4+ H (Negative) mg/dL Urine Glucose (UA) Trace H (Negative) mg/dL Urine Ketones Trace H (Negative) mg/dL Ur Blood (Man) 2+ H (Negative) Urine Nitrate Negative (Negative) Urine Bilirubin Negative (Negative) Urine Urobilinogen 1.0 (<2.0) mg/dL Add Ur Microanalysis Reviewed Leukocyte Esterase Rfl 2+ H (Negative) SCOTT/UL Urine RBC 21-50 H (0-2) /hpf Urine WBC >100 H (0-3) /hpf Ur Squamous Epith Cells None seen (Few) /hpf Urine Bacteria 2+ H /hpf Urine Casts 11-20 Influenza A (RT-PCR) (Negative) Influenza B (RT-PCR) (Negative) RSV (RT-PCR) (Negative) SARS-CoV-2 RNA (RT-PCR) (Negative) 05/01/25 Range/Units 14:57 WBC (4.5-10.0) K/mm3 RBC (4.2-5.4) M/mm3 Hgb (12.0-15.0) g/dL Hct (37.0-47.0) % MCV (80-100) fl MCH (26-34) pg MCHC (32-36) g/dl RDW (11.5-14.5) % Plt Count (150-375) k/mm3 MPV (7.4-10.4) fl Immature Gran % (Auto) (0-0.5) % Neut % (Auto) (45.5-73.1) % Lymph % (Auto) (18.3-44.2) % [place] % (Auto) (2.6-8.5) % Eos % (Auto) (0-4.4) % Baso % (Auto) (0.2-1.2) % Lymph # (Auto) (0.9-3.2) K/mm3 [place] # (Auto) (0.1-0.6) K/mm3 Eos # (Auto) (0-0.3) K/mm3 Baso # (Auto) (0.0-0.1) K/mm3 Abs Immat Gran (auto) (0.00-0.031) K/mm3 Absolute Neuts (auto) (1.3-6.7) K/mm3 Absolute Nucleated RBC (0.0-0.012) K/mm3 Nucleated RBC % (0.0-0.2) % PT (11.1-14.7) Seconds INR Sodium (137-145) mmol/L Potassium (3.4-5.0) mmol/L Chloride (98-107) mmol/L Carbon Dioxide (22-30) mmol/L Anion Gap (4-12) mmol/L BUN (7-17) mg/dL Creatinine (0.7-1.0) mg/dL Estim Creat Clear Calc Estimated GFR (59 - ) Glucose (65-110) mg/dL Lactic Acid (0.7-2.0) mmol/L Calcium (8.4-10.2) mg/dL Total Bilirubin (0.2-1.3) mg/dL AST (14-36) U/L ALT (6-35) U/L Alkaline Phosphatase (38-126) U/L Troponin I (0.000-0.034) ng/mL NT-Pro-B Natriuret Pep (19.9-100) pg/mL Total Protein (6.3-8.2) g/dL Albumin (3.5-5.1) g/dL Urine Color (Yellow) Urine Appearance (Clear) Urine pH (5.0-9.0) Ur Specific [place] (1.001-1.035) Urine Protein (Negative) mg/dL Urine Glucose (UA) (Negative) mg/dL Urine Ketones (Negative) mg/dL Ur Blood (Man) (Negative) Urine Nitrate (Negative) Urine Bilirubin (Negative) Urine Urobilinogen (<2.0) mg/dL Add Ur Microanalysis Leukocyte Esterase Rfl (Negative) SCOTT/UL Urine RBC (0-2) /hpf Urine WBC (0-3) /hpf Ur Squamous Epith Cells (Few) /hpf Urine Bacteria /hpf Urine Casts Influenza A (RT-PCR) Negative (Negative) Influenza B (RT-PCR) Negative (Negative) RSV (RT-PCR) Negative (Negative) SARS-CoV-2 RNA (RT-PCR) Negative (Negative) ABG Data ABG results: 05/01/25 10:27 Puncture Site Right radial ABG pH 7.574 H* ABG pCO2 22.1 L* ABG pO2 44.0 L* ABG PO2/FiO2 Ratio 1.22 ABG HCO3 20.0 L ABG O2 Saturation 87.8 L* ABG O2 Content 11.9 L ABG Base Excess -0.8 A-a Gradient 187.0 Oxyhemoglobin 82.9 L* Total Hemoglobin 10.2 L O2 Delivery Device Nasal cannula O2 Liters/Min 4.0 FiO2 36 Imaging Data Radiologist's impression: ITS Impressions Chest X-Ray 05/01/25 11:18 Impression: 1: Cardiomegaly with worsening pulmonary edema. ITS Impressions Chest X-Ray 05/01/25 11:18 Impression: 1: Cardiomegaly with worsening pulmonary edema. Chest/Abdomen/Pelvis CT 05/01/25 15:21 IMPRESSION: 1. Likely worsening congestive heart failure with cardiomegaly, increasing small bilateral pleural effusions and worsening moderate bilateral pulmonary edema. 2. Focal region of groundglass and reticular opacities which appears less patchy and which is more peripheral and localized with wedge-shaped pattern suggesting possibility of superimposed pneumonia or pulmonary infarction. 3. Cirrhosis with mild splenomegaly suggesting secondary portal venous hypertension. 4. Moderate amount of ascites which could be due to liver disease and/or congestive heart failure. 5. Moderate sigmoid diverticulosis. 6. Bladder wall thickening which could be due to partially decompressed state around the [place] catheter however there is also some stranding in the surrounding fat raising possibility of cystitis. Correlate with urinalysis. ECG Data EKG #1: ECG completion date: 05/01/25 ECG completion time: 10:21 EKG Interpretation: tachycardia (102), no ST changes, normal QRS and left axis Discharge Plan Discharge Clinical Impression: Chronic obstructive pulmonary disease, Elevated troponin, CHF (congestive heart failure), Pneumonia Patient Disposition: Still a Patient Condition: Stable Time of Disposition: 16:56
[2025-05-01] MEDS: FUROSEMIDE INJ 40 MG/4 ML VIAL IV PUSH (14:50)
--- NOTE | 2025-05-01 15:40 | P.CONCA_ITS ---
Assessment and Plan Assessment and plan (1) Elevated troponin: Code(s): R79.89 - Other specified abnormal findings of blood chemistry Status: Acute (2) Elevated troponin: Code(s): R79.89 - Other specified abnormal findings of blood chemistry Status: Acute Plan 79-year-old woman with moderate aortic stenosis, a history of hemorrhagic CVA, liver cirrhosis complicated by esophageal varices, chronic kidney disease stage 4, diabetes, COPD, bipolar disorder, depression /anxiety, hypertension, and hypothyroidism was sent in from custodial for hypoxia Troponin elevation - unknown etiology at this time - trend to peak and obtain a transthoracic echocardiogram - would start patient on heparin drip without any bolus given her risk factors - start aspirin 81 mg p.o. daily Acute hypoxic respiratory failure - likely multifactorial with possible decompensated heart failure - start Lasix 40 mg IV daily with strict recordings of I/O - daily weights and follow-up transthoracic echocardiogram Moderate aortic stenosis - follow-up transthoracic echocardiogram History of Present Illness History of Present Illness Consult date/time: 05/01/25 15:40 Requesting physician: Yoni Laws MD Consult reason: Other Reason For Visit: resp. distress Narrative: 79-year-old woman with moderate aortic stenosis, a history of hemorrhagic CVA, liver cirrhosis complicated by esophageal varices, chronic kidney disease stage 4, diabetes, COPD, bipolar disorder, depression /anxiety, hypertension, and hypothyroidism was sent in from custodial for hypoxia. She currently is very agitated and unable to move her right arm away from her face and unable to participate in conversation. In response to questions, she would mumble words that not coherent. Review of Systems 2 Review of Systems: ROS unobtainable: Yes unobtainable due to medical condition and unobtainable due to mental status PMFSH Past Medical History Medical History Chronic anemia Gastritis History of infection due to ESBL Escherichia coli Cerebrovascular accident 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 Frequent falls 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 Diabetic peripheral neuropathy Aortic stenosis Moderate on echocardiogram in November 2021. Osteoporosis Arthritis Asthma Bipolar disorder Anxiety Depression Hypertension Hypothyroidism Surgical History Surgical History History of cataract extraction with lens replacement History of cholecystectomy History of tonsillectomy History of section History of colonoscopy with polypectomy Most recent colonoscopy 01/2019 demonstrated colon spasm and diverticulosis performed by Dr. Moreno History of thyroidectomy History of bladder surgery History of partial hysterectomy Family History Family History Sibling Multiple sclerosis Father Acute myocardial infarction, Onset Age: 79 Cerebrovascular accident, Onset Age: 79 Mother Dementia Sibling Acute myocardial infarction, Onset Age: 65 Son Diabetes mellitus Other Depression Family history of arthritis Family history of elevated blood lipids Family history of thyroid disease Hypertension Social History Social History Social History: Surrogate medical decision maker: Gavino Sigala (son). Code status: Do not resuscitate. Smoking packs per day: 1 Smoking cigarettes per day: 20.0 Years smoked: 50 Smoking pack-years: 50.00 Smoking status: Former smoker Tobacco type: cigarettes Second hand tobacco smoke exposure: No Smoking end date: 11/30/18 Alcohol intake: never Substance use: never Substance use type: does not use Do You Feel Safe in your Home?: Yes Lack of Transportation: No Lack of Food: Never True Current Housing: I Have Housing Concerned About Future Housing: No Difficulty Paying Gas/Electric Bills: No Difficulty Paying for Meds: No Currently Unemployed: No Education: Decline to Answer Difficulty w/ Childcare or Family Care: No Living arrangements: custodial Additional living arrangements comments: with 3 sons. Resident at [facility]. 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 Spiritual care concerns: No Meds Home Medications and Allergies Home Medications ?Medication ?Instructions ?Recorded ?Confirmed ?Type escitalopram oxalate 5 mg tablet 5 mg PO DAILY 08/21/21 04/26/25 History umeclidinium 62.5 mcg-vilanterol 1 inh inhalation DAILY #60 ea 10/15/21 04/26/25 Rx 25 mcg/actuation powdr for inhalation (Anoro Ellipta) glucagon HCl 1 mg solution for 1 mg subcut Q20M PRN Hypoglycemia 02/13/22 04/26/25 History injection (Glucagon (HCl) Emergency Kit) hydroxyzine HCl 25 mg tablet 50 mg PO Q8H PRN Itching 08/25/22 04/26/25 History acetaminophen 500 mg tablet 1,000 mg PO BID PRN Pain (Scale 09/14/22 04/26/25 History Score 1-3) atorvastatin 40 mg tablet 40 mg PO HS 01/22/23 04/26/25 History gabapentin 600 mg tablet 100 mg PO TID 01/22/23 04/26/25 History cholecalciferol (vitamin D3) 1,250 1,250 mcg PO WEEKLY 12/15/23 04/26/25 History mcg (50,000 unit) tablet lamotrigine 150 mg tablet 100 mg PO Q12H 05/17/24 04/26/25 History pantoprazole 40 mg tablet,delayed 40 mg PO Q12HR #60 tabs 05/21/24 04/26/25 Rx release hydrocodone 5 mg-acetaminophen 325 1 tablet PO Q4H PRN Pain Rated 4-6 06/08/24 04/26/25 Rx mg tablet #180 tabs furosemide 20 mg tablet 20 mg PO DAILY 08/16/24 04/26/25 History lactulose 10 gram/15 mL oral 30 g PO QID 08/16/24 04/26/25 History solution vitamins A,C,X-jiut-gmagka 4,296 1 cap PO DAILY 08/16/24 04/26/25 History mcg-226 mg-90 mg capsule (PreserVision AREDS) isosorbide mononitrate 30 mg 30 mg PO QAM 30 days #30 tabs 08/18/24 04/26/25 Rx tablet,extended release 24 hr camphor-menthol 0.5 %-0.5 % lotion 1 applic topical DAILY PRN pruritis 08/22/24 04/26/25 History (Sarna Original) clobetasol 0.05 % topical ointment 1 applic topical PRN PRN pruritus 08/22/24 04/26/25 History morphine concentrate 100 mg/5 mL 5 mg PO Q6H PRN pain 11/09/24 04/26/25 History (20 mg/mL) oral solution ondansetron 4 mg disintegrating 4 mg translingual TID PRN nausea 11/09/24 04/26/25 History tablet and vomiting ferrous sulfate 325 mg (65 mg 325 mg PO DAILY 04/26/25 04/26/25 History iron) tablet (Iron (ferrous sulfate)) levothyroxine 150 mcg tablet 100 mcg PO DAILY 04/26/25 04/26/25 History (Synthroid) suvorexant 10 mg tablet (Belsomra) 10 mg PO HS 04/26/25 04/26/25 History amlodipine 5 mg tablet (Norvasc) 5 mg PO DAILY 30 days #30 tabs 04/29/25 Rx ipratropium 20 mcg-albuterol 100 1 puff inhalation Q4H 30 days #4 04/29/25 Rx mcg/actuation mist for inhalation grams (Combivent Respimat) tamsulosin 0.4 mg capsule 0.4 mg PO QAM 30 days #30 caps 04/29/25 Rx Allergies Allergy/AdvReac Type Severity Reaction Status Date / Time alendronate sodium Allergy Unknown Verified 04/26/25 20:25 amantadine Allergy Unknown Verified 04/26/25 20:25 benztropine Allergy Other Verified 04/26/25 20:25 chlorpromazine Allergy Unknown Verified 04/26/25 20:25 levofloxacin Allergy Unknown Verified 04/26/25 20:25 Macrolide Antibiotics Allergy Unknown Verified 04/26/25 20:25 mirtazapine Allergy Unknown Verified 04/26/25 20:25 Quinolones Allergy Unknown Verified 04/26/25 20:25 topiramate Allergy Unknown Verified 04/26/25 20:25 Vital Signs Vital Signs - 24 hr 05/01/25 10:08 05/01/25 10:10 05/01/25 10:15 Temperature 37.4 C Pulse Rate 104 H Respiratory Rate 16 Blood Pressure 167/70 H Pulse Oximetry 96 95 95 Oxygen Delivery Nasal Cannula Nasal Cannula High Flow Therapy with Na Oxygen Flow Rate 4 4 4 05/01/25 10:32 05/01/25 11:00 05/01/25 11:30 Temperature Pulse Rate 101 H 103 H Respiratory Rate 24 H 16 Blood Pressure 175/68 H 171/66 H Pulse Oximetry 95 93 96 Oxygen Delivery Nasal Cannula Oxygen Flow Rate 4 05/01/25 12:00 05/01/25 12:30 05/01/25 13:00 Temperature Pulse Rate 100 102 H 103 H Respiratory Rate 24 H 20 24 H Blood Pressure 176/70 H 177/60 H 166/76 H Pulse Oximetry 95 95 96 Oxygen Delivery Oxygen Flow Rate 05/01/25 13:15 Temperature 38.7 C H Pulse Rate 105 H Respiratory Rate 22 H Blood Pressure 186/63 H Pulse Oximetry 93 Oxygen Delivery Oxygen Flow Rate Exam 2 Const: Other: ill-appearing HENMT: Mouth: Yes moist mucous membranes Neck: Neck: no JVD Resp: Other: tachypneic Cardio: Rate: tachycardic Rhythm: regular rhythm Heart sounds: Murmur heart sound present Extrem: General: no pedal edema Results Labs and Meds 05/01/25 10:46 05/01/25 10:46 Lab results: Cardiac Enzymes 05/01/25 Range/Units 10:46 AST 116 H (14-36) U/L Troponin I 12.500 H* (0.000-0.034) ng/mL Coagulation 05/01/25 Range/Units 10:46 PT 17.3 H (11.1-14.7) Seconds CBC 05/01/25 Range/Units 10:46 WBC 15.5 H (4.5-10.0) K/mm3 RBC 3.47 L (4.2-5.4) M/mm3 Hgb 9.7 L (12.0-15.0) g/dL Hct 31.1 L (37.0-47.0) % Plt Count 102 L (150-375) k/mm3 Lymph # (Auto) 0.38 L (0.9-3.2) K/mm3 [place] # (Auto) 0.3 (0.1-0.6) K/mm3 Eos # (Auto) 0.0 (0-0.3) K/mm3 Baso # (Auto) 0.0 (0.0-0.1) K/mm3 Comprehensive Metabolic Panel 05/01/25 Range/Units 10:46 Sodium 140 (137-145) mmol/L Potassium 4.6 (3.4-5.0) mmol/L Chloride 103 (98-107) mmol/L Carbon Dioxide 29 (22-30) mmol/L BUN 58 H D (7-17) mg/dL Creatinine 2.20 H (0.7-1.0) mg/dL Glucose 205 H (65-110) mg/dL Calcium 9.0 (8.4-10.2) mg/dL AST 116 H (14-36) U/L ALT 56 H (6-35) U/L Alkaline Phosphatase 233 H (38-126) U/L Total Protein 6.0 L (6.3-8.2) g/dL Albumin 3.3 L (3.5-5.1) g/dL Patient Weight 05/01/25 23:59 Weight 59 kg
[2025-05-01 15:44] LABS: Influenza A QL RT-PCR Negative (Negative); Influenza B QL RT-PCR Negative (Negative); RSV RNA, RT-PCR Negative (Negative); SARS-CoV-2 RNA PCR Negative (Negative)
--- NOTE | 2025-05-01 17:11 | ADMGEN ---
This patient, Nisha Sigala, was admitted to IMU Room 213-01. Patient/family oriented to hospital policies and general routines including ID bracelet, bed and alarms, visiting hours, pain management, procedures, bathroom and other care routines, personal items, smoking policy, room service/diet, and visiting hours. Information on how to activate the Rapid Response Team has been discussed. Patient/Family are encouraged to report perceived risks to care and to ask questions if they do not understand what they are told or what they should do.
[2025-05-01] MEDS: DOXYCYCLINE 100 MG/NS 100 ML 100 MG/100 ML BAG IVPB (17:32)
[2025-05-01 18:09] LABS: Partial Thromboplastin Time 30.7 Seconds (22.3-36.8)
[2025-05-01] MEDS: HEPARIN SOD/D5W 100 UNITS/ML 25,000 UNITS/250 ML BAG 6 UNITS IV CONT (18:28)
[2025-05-01] MEDS: CEFEPIME 2 GM/NS 50 ML 2 GM/50 ML BAG IVPB (18:36)
[2025-05-01] MEDS: VANCOMYCIN 750 MG/NS 250 ML 750 MG/250 ML BAG 250 MG IVPB (18:36)
--- NOTE | 2025-05-01 18:36 | PM.IMHP ---
H&P: HPI History of Present Illness Date/Time: 05/01/25 19:36 Chief Complaint: Difficulty breathing Narrative: 79-year-old female with a past medical history of moderate aortic valve stenosis, heart failure with preserved ejection fraction, prior hemorrhagic CVA, cirrhosis complicated by esophageal varices, chronic kidney disease stage 4, diabetes mellitus, COPD, bipolar disorder with tardive dyskinesia, essential hypertension, hypothyroidism and dementia who presented to the ER with staff concerns for difficulty breathing. The patient had just been admitted to our facility 04/26/2025 through 04/30/2025 due to COPD and CHF exacerbation. She did have an episode of hypoglycemia on the last night of her hospital stay but this did not recur. Patient did not have any leukocytosis or evidence of infection during her hospital stay. However today at the senior living the patient was noted did seem to be short of breath. On arrival to the ER patient was noted to be febrile with a temperature of 101.6? and with a T-max of 102.3?. She was tachypneic and mildly tachycardic. Labs demonstrated leukocytosis with a white count of 15.6 and stable creatinine at 2.2. Her UA was suggestive of possible UTI and she had lactic acidosis. She had worsening transaminitis from baseline. Her initial troponin was greater than 12 and her BMP was greater than 30,000. Chest x-ray was suggestive of CHF exacerbation. Noncontrast CT of the chest abdomen pelvis demonstrated worsening CHF and increasing small bilateral pleural effusions with moderate bilateral pulmonary edema, focal region of ground-glass and reticular opacity more peripheral and localized in which she pattern suggesting superimposed pneumonia, cirrhosis with splenomegaly moderate amount of ascites and bladder wall thickening due to decompression or possible cystitis. Patient was initially given dose of Rocephin and doxycycline in the ER. Blood cultures and urine cultures were pending and the patient was admitted for further treatment. The patient responds to her name but is otherwise unable to provide any history is less the entirety of HPI past medical history was obtained from review of past medical records and ER physician report. Review of Systems Review of Systems: Unobtainable due to the patient's dementia. [facility] Past Medical History Medical History (Updated 05/02/25 @ 00:48 by Catina Leon DO) Chronic anemia Gastritis History of infection due to ESBL Escherichia coli 2021 Cerebrovascular accident 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 Frequent falls 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 Diabetic peripheral neuropathy Aortic stenosis Moderate on echocardiogram in November 2021. Osteoporosis Arthritis Asthma Bipolar disorder Anxiety Depression Hypertension Hypothyroidism Surgical History Surgical History History of cataract extraction with lens replacement History of cholecystectomy History of tonsillectomy History of section History of colonoscopy with polypectomy Most recent colonoscopy 01/2019 demonstrated colon spasm and diverticulosis performed by Dr. Moreno History of thyroidectomy History of bladder surgery History of partial hysterectomy Family History Family History Sibling Multiple sclerosis Father Acute myocardial infarction, Onset Age: 79 Cerebrovascular accident, Onset Age: 79 Mother Dementia Sibling Acute myocardial infarction, Onset Age: 65 Son Diabetes mellitus Other Depression Family history of arthritis Family history of elevated blood lipids Family history of thyroid disease Hypertension Social History Social History (Updated 05/02/25 @ 00:43 by Catina Leon DO) Social History: Surrogate medical decision maker: Gavino Sigala (son). Code status: DNR/DNI Smoking packs per day: 1 Smoking cigarettes per day: 20.0 Years smoked: 50 Smoking pack-years: 50.00 Smoking status: Former smoker Second hand tobacco smoke exposure: No Alcohol intake: never Substance use: never Substance use type: does not use Do You Feel Safe in your Home?: Yes Lack of Transportation: No Lack of Food: Never True Current Housing: I Have Housing Concerned About Future Housing: No Difficulty Paying Gas/Electric Bills: No Difficulty Paying for Meds: No Currently Unemployed: No Education: Decline to Answer Difficulty w/ Childcare or Family Care: No Living arrangements: senior living Additional living arrangements comments: with 3 sons. Resident at [facility]. 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 Spiritual care concerns: No Meds Home Medications and Allergies Home Medications ?Medication ?Instructions ?Recorded ?Confirmed ?Type escitalopram oxalate 5 mg tablet 5 mg PO DAILY 08/21/21 04/26/25 History umeclidinium 62.5 mcg-vilanterol 1 inh inhalation DAILY #60 ea 10/15/21 04/26/25 Rx 25 mcg/actuation powdr for inhalation (Anoro Ellipta) glucagon HCl 1 mg solution for 1 mg subcut Q20M PRN Hypoglycemia 02/13/22 04/26/25 History injection (Glucagon (HCl) Emergency Kit) hydroxyzine HCl 25 mg tablet 50 mg PO Q8H PRN Itching 08/25/22 04/26/25 History acetaminophen 500 mg tablet 1,000 mg PO BID PRN Pain (Scale 09/14/22 04/26/25 History Score 1-3) atorvastatin 40 mg tablet 40 mg PO HS 01/22/23 04/26/25 History gabapentin 600 mg tablet 100 mg PO TID 01/22/23 04/26/25 History cholecalciferol (vitamin D3) 1,250 1,250 mcg PO WEEKLY 12/15/23 04/26/25 History mcg (50,000 unit) tablet lamotrigine 150 mg tablet 100 mg PO Q12H 05/17/24 04/26/25 History pantoprazole 40 mg tablet,delayed 40 mg PO Q12HR #60 tabs 05/21/24 04/26/25 Rx release hydrocodone 5 mg-acetaminophen 325 1 tablet PO Q4H PRN Pain Rated 4-6 06/08/24 04/26/25 Rx mg tablet #180 tabs furosemide 20 mg tablet 20 mg PO DAILY 08/16/24 04/26/25 History lactulose 10 gram/15 mL oral 30 g PO QID 08/16/24 04/26/25 History solution vitamins A,C,O-uzku-btbodb 4,296 1 cap PO DAILY 08/16/24 04/26/25 History mcg-226 mg-90 mg capsule (PreserVision AREDS) isosorbide mononitrate 30 mg 30 mg PO QAM 30 days #30 tabs 08/18/24 04/26/25 Rx tablet,extended release 24 hr camphor-menthol 0.5 %-0.5 % lotion 1 applic topical DAILY PRN pruritis 08/22/24 04/26/25 History (Iván Coulter) clobetasol 0.05 % topical ointment 1 applic topical PRN PRN pruritus 08/22/24 04/26/25 History morphine concentrate 100 mg/5 mL 5 mg PO Q6H PRN pain 11/09/24 04/26/25 History (20 mg/mL) oral solution ondansetron 4 mg disintegrating 4 mg translingual TID PRN nausea 11/09/24 04/26/25 History tablet and vomiting ferrous sulfate 325 mg (65 mg 325 mg PO DAILY 04/26/25 04/26/25 History iron) tablet (Iron (ferrous sulfate)) levothyroxine 150 mcg tablet 100 mcg PO DAILY 04/26/25 04/26/25 History (Synthroid) suvorexant 10 mg tablet (Belsomra) 10 mg PO HS 04/26/25 04/26/25 History amlodipine 5 mg tablet (Norvasc) 5 mg PO DAILY 30 days #30 tabs 04/29/25 Rx ipratropium 20 mcg-albuterol 100 1 puff inhalation Q4H 30 days #4 04/29/25 Rx mcg/actuation mist for inhalation grams (Combivent Respimat) tamsulosin 0.4 mg capsule 0.4 mg PO QAM 30 days #30 caps 04/29/25 Rx Allergies Allergy/AdvReac Type Severity Reaction Status Date / Time alendronate sodium Allergy Unknown Verified 04/26/25 20:25 amantadine Allergy Unknown Verified 04/26/25 20:25 benztropine Allergy Other Verified 04/26/25 20:25 chlorpromazine Allergy Unknown Verified 04/26/25 20:25 levofloxacin Allergy Unknown Verified 04/26/25 20:25 Macrolide Antibiotics Allergy Unknown Verified 04/26/25 20:25 mirtazapine Allergy Unknown Verified 04/26/25 20:25 Quinolones Allergy Unknown Verified 04/26/25 20:25 topiramate Allergy Unknown Verified 04/26/25 20:25 Vital Signs Vital Signs - 24 hr 05/01/25 10:08 05/01/25 10:10 05/01/25 10:15 Temperature 99.4 F Pulse Rate 104 H Respiratory Rate 16 Blood Pressure 167/70 H Pulse Oximetry 96 95 95 Oxygen Delivery Nasal Cannula Nasal Cannula High Flow Therapy with Na Oxygen Flow Rate 4 4 4 05/01/25 10:32 05/01/25 11:00 05/01/25 11:30 Temperature Pulse Rate 101 H 103 H Respiratory Rate 24 H 16 Blood Pressure 175/68 H 171/66 H Pulse Oximetry 95 93 96 Oxygen Delivery Nasal Cannula Oxygen Flow Rate 4 05/01/25 12:00 05/01/25 12:30 05/01/25 13:00 Temperature Pulse Rate 100 102 H 103 H Respiratory Rate 24 H 20 24 H Blood Pressure 176/70 H 177/60 H 166/76 H Pulse Oximetry 95 95 96 Oxygen Delivery Oxygen Flow Rate 05/01/25 13:15 05/01/25 14:00 05/01/25 15:00 Temperature 101.6 F H Pulse Rate 105 H 98 102 H Respiratory Rate 22 H 24 H 26 H Blood Pressure 186/63 H 176/65 H 181/58 H Pulse Oximetry 93 95 95 Oxygen Delivery Oxygen Flow Rate 05/01/25 16:26 05/01/25 16:28 05/01/25 17:11 Temperature 101.1 F H Pulse Rate 98 99 96 Respiratory Rate 24 H 26 H 28 H Blood Pressure 173/61 H 164/64 H 168/55 H Pulse Oximetry 94 95 92 Oxygen Delivery Oxygen Flow Rate Exam Narrative: Weight 54 kg BMI 22.5 Const: Other: Acutely ill-appearing, debilitated, appears older than stated age HENMT: Other: Edentulous, mucous membranes are dry, fasciculations of the tongue, head is normocephalic atraumatic Eyes: Other: Pupils are equal and reactive, no scleral icterus positive conjunctival pallor Neck: Other: No JVD, cervical kyphosis Resp: Other: Decreased breath sounds at the bases, mild tachypnea Cardio: Other: Sinus tachycardia, 2+ bilateral radial pedal pulses, no JVD GI: Other: Distended, generalized tenderness to palpation, hypoactive bowel sounds : Other: Mead catheter in place with cloudy yellow urine Skin: Other: Generalized pallor, mildly jaundice, petechiae and scattered bruising to multiple areas of skin Neuro: Other: Responds to her name a otherwise answers yes and okay but responses are inappropriate to the questions, she has irregular movements of her extremities and facial muscles as well as tongue consistent with thyroid type dyskinesia Extrem: Other: Generalized wasting of muscles, mild edema of lower extremities Psych: Other: Confused, restless, unable to redirect, poor judgment and insight H&P: Results Labs Labs: Laboratory Tests 05/01/25 10:46 05/01/25 10:46 05/01/25 05/01/25 05/01/25 10:27 10:46 12:58 WBC 15.5 H RBC 3.47 L Hgb 9.7 L Hct 31.1 L MCV 89.6 MCH 28.0 MCHC 31.2 L RDW 16.6 H Plt Count 102 L MPV 10.9 H Immature Gran % (Auto) 0.6 H Neut % (Auto) 94.8 H Lymph % (Auto) 2.5 L [place] % (Auto) 2.0 L Eos % (Auto) 0.0 Baso % (Auto) 0.1 L Lymph # (Auto) 0.38 L [place] # (Auto) 0.3 Eos # (Auto) 0.0 Baso # (Auto) 0.0 Abs Immat Gran (auto) 0.09 H Absolute Neuts (auto) 14.7 H Absolute Nucleated RBC 0.040 H Nucleated RBC % 0.3 H PT 17.3 H INR 1.4 APTT Puncture Site Right radial ABG pH 7.574 H* ABG pCO2 22.1 L* ABG pO2 44.0 L* ABG PO2/FiO2 Ratio 1.22 ABG HCO3 20.0 L ABG O2 Saturation 87.8 L* ABG O2 Content 11.9 L ABG Base Excess -0.8 A-a Gradient 187.0 Oxyhemoglobin 82.9 L* Total Hemoglobin 10.2 L O2 Delivery Device Nasal cannula O2 Liters/Min 4.0 FiO2 36 Sodium 140 Potassium 4.6 Chloride 103 Carbon Dioxide 29 Anion Gap 8 BUN 58 H D Creatinine 2.20 H Estim Creat Clear Calc Not Reportable Estimated GFR 22 L Glucose 205 H Lactic Acid 4.3 H* 3.1 H Calcium 9.0 Total Bilirubin 1.3 AST 116 H ALT 56 H Alkaline Phosphatase 233 H Troponin I 12.500 H* NT-Pro-B Natriuret Pep > 34060 H Total Protein 6.0 L Albumin 3.3 L Urine Color Urine Appearance Urine pH Ur Specific [place] Urine Protein Urine Glucose (UA) Urine Ketones Ur Blood (Man) Urine Nitrate Urine Bilirubin Urine Urobilinogen Add Ur Microanalysis Leukocyte Esterase Rfl Urine RBC Urine WBC Ur Squamous Epith Cells Urine Bacteria Urine Casts Influenza A (RT-PCR) Influenza B (RT-PCR) RSV (RT-PCR) SARS-CoV-2 RNA (RT-PCR) 05/01/25 05/01/25 05/01/25 13:57 14:57 17:36 WBC RBC Hgb Hct MCV MCH MCHC RDW Plt Count MPV Immature Gran % (Auto) Neut % (Auto) Lymph % (Auto) [place] % (Auto) Eos % (Auto) Baso % (Auto) Lymph # (Auto) [place] # (Auto) Eos # (Auto) Baso # (Auto) Abs Immat Gran (auto) Absolute Neuts (auto) Absolute Nucleated RBC Nucleated RBC % PT INR APTT 30.7 Puncture Site ABG pH ABG pCO2 ABG pO2 ABG PO2/FiO2 Ratio ABG HCO3 ABG O2 Saturation ABG O2 Content ABG Base Excess A-a Gradient Oxyhemoglobin Total Hemoglobin O2 Delivery Device O2 Liters/Min FiO2 Sodium Potassium Chloride Carbon Dioxide Anion Gap BUN Creatinine Estim Creat Clear Calc Estimated GFR Glucose Lactic Acid Calcium Total Bilirubin AST ALT Alkaline Phosphatase Troponin I 22.300 H* D NT-Pro-B Natriuret Pep Total Protein Albumin Urine Color Yellow Urine Appearance Cloudy H Urine pH 7.5 Ur Specific [place] 1.018 Urine Protein 4+ H Urine Glucose (UA) Trace H Urine Ketones Trace H Ur Blood (Man) 2+ H Urine Nitrate Negative Urine Bilirubin Negative Urine Urobilinogen 1.0 Add Ur Microanalysis Reviewed Leukocyte Esterase Rfl 2+ H Urine RBC 21-50 H Urine WBC >100 H Ur Squamous Epith Cells None seen Urine Bacteria 2+ H Urine Casts 11-20 Influenza A (RT-PCR) Negative Influenza B (RT-PCR) Negative RSV (RT-PCR) Negative SARS-CoV-2 RNA (RT-PCR) Negative Impressions Chest X-Ray 05/01/25 11:18 Impression: 1: Cardiomegaly with worsening pulmonary edema. Chest/Abdomen/Pelvis CT 05/01/25 15:21 IMPRESSION: 1. Likely worsening congestive heart failure with cardiomegaly, increasing small bilateral pleural effusions and worsening moderate bilateral pulmonary edema. 2. Focal region of groundglass and reticular opacities which appears less patchy and which is more peripheral and localized with wedge-shaped pattern suggesting possibility of superimposed pneumonia or pulmonary infarction. 3. Cirrhosis with mild splenomegaly suggesting secondary portal venous hypertension. 4. Moderate amount of ascites which could be due to liver disease and/or congestive heart failure. 5. Moderate sigmoid diverticulosis. 6. Bladder wall thickening which could be due to partially decompressed state around the Mead catheter however there is also some stranding in the surrounding fat raising possibility of cystitis. Correlate with urinalysis. EKG:Test Date: 2025-05-01 10:21:28 Measurements Intervals [place] Rate: 102 P: 44 CT: 131 QRS: -46 QRSD: 137 T: 32 QT: 356 QTc: 465 Interpretive Statements SINUS TACHYCARDIA LEFT AXIS DEVIATION RIGHT BUNDLE BRANCH BLOCK BASELINE ARTIFACT- I, II, III, AVR, AVL,A VF, V1, V4-V6 ABNORMAL ECG Compared to ECG 04/26/2025 06:24:37 HEART RATE HAS INCREASED All imaging and EKGs personally reviewed and interpreted. And unless stated otherwise agree with radiologic and cardiology interpretation. Assessment and Plan Assessment and plan (1) Sepsis: Qualifiers: Acute respiratory failure type: with hypoxia Sepsis acute organ dysfunction status: with acute organ dysfunction Sepsis type: sepsis due to unspecified organism Severe sepsis acute organ dysfunction type: acute respiratory failure Severe sepsis shock status: without septic shock Qualified Code(s): A41.9 - Sepsis, unspecified organism; R65.20 - Severe sepsis without septic shock; J96.01 - Acute respiratory failure with hypoxia Code(s): A41.9 - Sepsis, unspecified organism Status: Acute (2) Pneumonia: Qualifiers: Laterality: unspecified laterality Lung location: unspecified part of lung Pneumonia type: due to unspecified organism Qualified Code(s): J18.9 - Pneumonia, unspecified organism Code(s): J18.9 - Pneumonia, unspecified organism Status: Acute (3) Elevated troponin: Code(s): R79.89 - Other specified abnormal findings of blood chemistry Status: Acute (4) CHF (congestive heart failure): Qualifiers: Heart failure chronicity: acute on chronic Heart failure type: systolic Qualified Code(s): I50.23 - Acute on chronic systolic (congestive) heart failure Code(s): I50.9 - Heart failure, unspecified Status: Acute (5) Cirrhosis of liver: Qualifiers: Hepatic cirrhosis type: unspecified hepatic cirrhosis Ascites presence: with ascites Qualified Code(s): K74.60 - Unspecified cirrhosis of liver; R18.8 - Other ascites Code(s): K74.60 - Unspecified cirrhosis of liver Status: Acute (6) Acute respiratory alkalosis: Code(s): E87.3 - Alkalosis Status: Acute Plan Patient had non STEMI worsened by severe sepsis and acute on chronic hypoxic respiratory failure. Definite component of demand ischemia. Patient initially received IV fluid hydration due to sepsis but then received diuretic therapy due to increasing work of breathing and worsening lung exam. Troponin initially 12.5 with repeat level of 25. Patient was evaluated by Cardiology. The patient is a poor candidate for cardiac catheterization given history of hemorrhagic stroke, cirrhosis, chronic thrombocytopenia among other comorbidities. Patient has been started on heparin drip without bolus to reduce risk of bleeding. Will obtain echocardiogram to further evaluate cardiac structure and function. Patient's overall prognosis is poor. Patient had previously been on hospice but family revoked after patient condition had improved back in September of 2024. Family would like to see the results of the echocardiogram and see how the patient is doing tomorrow before making further determination on course of care. Will continue patient on supplemental oxygen as needed and wean as tolerated. Will continue with daily diuresis of Lasix 40 mg IV and monitor strict I&O's. Will repeat CBC and electrolyte panel in a.m.. Patient does meet severe sepsis criteria with fever, leukocytosis, tachycardia, tachypnea and lactic acidosis. Source of infection is UTI and or pneumonia. Will place patient on antibiotic coverage for possible UTI and healthcare associated pneumonia given her recent hospitalization. Will provide Tylenol as needed for fever. Will place on scheduled nebulizer treatments given history of COPD and acute hypoxic respiratory failure. Blood cultures and urine cultures are pending. Will provide morphine for pain as patient seemed to have significant in abdominal discomfort. Abdominal discomfort could be due to ascites with possible SBP however pain is more likely to be due to suprapubic tenderness from UTI. Nursing staff called as was finishing this documentation to state the patient was having decompensation in her respiratory status. She was having agonal respirations. Patient is a DNR/DNI. The patient is in multiorgan system failure. Patient would benefit from transition to comfort measures. Nursing staff is contacting the family at this time. 60 minute spent in critical care activities. Due to a high probability of clinically significant, life threatening deterioration, the patient required my highest level of preparedness to intervene emergently and I personally spent this critical care time directly and personally managing the patient. This critical care time included obtaining a history; examining the patient; pulse oximetry; ordering and review of studies; arranging urgent treatment with development of a management plan; evaluation of patient's response to treatment; frequent reassessment; and discussions with other providers. It was exclusive of separately billable procedures and treating other patients and teaching time. Please see Assessment and Plan section and the rest of the note for further information on patient assessment and treatment. Quality VTE Prophylaxis VTE prophylaxis: pharmacologic ordered (Heparin GGT per protocol) Hospitalist MIPS Advance Care Plan I have confirmed that the patient's Advanced Care Plan is present, code status is documented, or surrogate decision maker is listed in patient medical record.: Yes Medication Reconciliation I have utilized all available resources to obtain, update and review the patients current medications (includes all prescriptions, OTC, herbals, cannabis, and nutritional supplements).: Yes
[2025-05-01] MEDS: PHARMACIST COMMUNICATION ORDER 1 EACH XX (19:35)
[2025-05-01] MEDS: MORPHINE SULFATE (*CRX) 2 MG/ML INJ IV PUSH (20:17)
[2025-05-01 21:44] LABS: Glucose Point of Care 157 mg/dl (65-105)
[2025-05-01 21:58] LABS: MRSA (PCR) NOT DETECTED (NOT DETECTE)
[2025-05-01] MEDS: IPRATROPIUM 0.5 MG/ALBUTEROL SULFATE 2.5 MG AMPUL.NEB 3 ML INHALATION (22:11)
[2025-05-01 23:47] LABS: Partial Thromboplastin Time 33.8 Seconds (22.3-36.8)
[2025-05-02] VITALS: BP 152/60; PULSE 90; PULSE 91; RESP 17; TEMP 36.7; O2SAT 91; O2SAT 93
[2025-05-02] MEDS: HEPARIN SODIUM 5,000 UNITS/ML VIAL 4000 UNITS IV PUSH (00:04)
[2025-05-02] MEDS: MORPHINE SULFATE (*CRX) 2 MG/ML INJ IV PUSH ×5 (00:10→10:55)
[2025-05-02 00:13] VITALS: TEMP 39.1
[2025-05-02] MEDS: ACETAMINOPHEN 325 MG TABLET 650 MG PO (00:13)
[2025-05-02 01:10] VITALS: TEMP 37.5
[2025-05-02] MEDS: WATER FOR IRRIGATION, STERILE 1,000 ML BOTTLE 1000 ML (02:21)
[2025-05-02] MEDS: LORazepam INJ (*CRX) 2 MG/ML VIAL 1 MG IV PUSH ×4 (02:28→10:55)
[2025-05-02 07:29] VITALS: BP 114/50; PULSE 79; RESP 20; TEMP 37.4; O2SAT 56
[2025-05-02 08:00] VITALS: PULSE 79; RESP 20; O2SAT 56
--- NOTE | 2025-05-02 11:11 | P.PNIM_ITS ---
Progress Note: A&P Assessment and Plan (1) Sepsis: Qualifiers: Sepsis type: sepsis due to unspecified organism Sepsis acute organ dysfunction status: with acute organ dysfunction Severe sepsis acute organ dysfunction type: acute respiratory failure Acute respiratory failure type: with hypoxia Severe sepsis shock status: without septic shock Qualified Code(s): A41.9 - Sepsis, unspecified organism; R65.20 - Severe sepsis without septic shock; J96.01 - Acute respiratory failure with hypoxia Code(s): A41.9 - Sepsis, unspecified organism Status: Acute (2) Acute respiratory failure with hypoxia: Code(s): J96.01 - Acute respiratory failure with hypoxia Status: Acute (3) Non-ST elevation NH (NSTEMI): Code(s): I21.4 - Non-ST elevation (NSTEMI) myocardial infarction Status: Acute (4) Acute on chronic diastolic heart failure: Code(s): I50.33 - Acute on chronic diastolic (congestive) heart failure Status: Acute (5) Pneumonia: Qualifiers: Laterality: unspecified laterality Lung location: unspecified part of lung Pneumonia type: due to unspecified organism Qualified Code(s): J18.9 - Pneumonia, unspecified organism Code(s): J18.9 - Pneumonia, unspecified organism Status: Acute (6) Cirrhosis of liver: Qualifiers: Ascites presence: with ascites Hepatic cirrhosis type: unspecified hepatic cirrhosis Qualified Code(s): K74.60 - Unspecified cirrhosis of liver; R18.8 - Other ascites Code(s): K74.60 - Unspecified cirrhosis of liver Status: Acute (7) Chronic kidney disease: Code(s): N18.9 - Chronic kidney disease, unspecified Status: Acute Plan Patient presented with shortness of breath and found to be febrile, tachypneic and mildly tachycardic. She had elevated lactic and WBC with stable creatinine at 2.2. Her UA was suggestive of possible UTI and CXR was suggestive of CHF exacerbation. Noncontrast CT Ch/A/P demonstrated worsening CHF and increasing small bilateral pleural effusions with moderate bilateral pulmonary edema, focal region of ground-glass and reticular opacity more peripheral and localized in which she pattern suggesting superimposed pneumonia, cirrhosis with splenomegaly moderate amount of ascites and bladder wall thickening due to decompression or possible cystitis. She had worsening transaminitis from baseline. Her initial troponin was 12 and her BMP was greater than 30,000. Patient was initially given dose of Rocephin and doxycycline in the ER. Blood cultures collected and patient was admitted. Since admission, the family has decided to change her care to comfort measures only. All abx and other treatments stopped and now strictly focused on comfort. Her BCx are growing gram positive cocci. Patient is a DNR/DNI. Long discussion with son and family at bedside. I explained that the patient's condition is dire and agreed with comfort measures. Other options discussed including abx use but ultimately the son decided to continue with comfort measures only. Continue comfort measures. Subjective Date/time seen: 05/02/25 11:11 Interval history: 79yo female with moderate aortic stenosis, dCHF, hx of hemorrhagic CVA, liver cirrhosis with EV, CKD 4, DM, COPD, bipolar disorder, depression /anxiety, HTN, and hypothyroidism here for SOB. Assuming care. Chart reviewed. Patient is unresponsive so unable to obtain hx. Discussion at bedside with son and family. Review of Systems Review of Systems: ROS unobtainable: Yes unobtainable due to medical condition Exam Narrative: Tm 101.6 99.3 114/50 79 20 96% 8L Gen - thin, ill appearing female who is tachypneic HEENT - dried mucous membranes with crusting around her lips. Chest - increased RR Neuro - unresponsive. Objective Data Vital Signs Vital Signs: Vital Signs - 24 hr 05/01/25 11:30 05/01/25 12:00 05/01/25 12:30 Temperature Pulse Rate 103 H 100 102 H Respiratory Rate 16 24 H 20 Blood Pressure 171/66 H 176/70 H 177/60 H Pulse Oximetry 96 95 95 Oxygen Delivery Oxygen Flow Rate 05/01/25 13:00 05/01/25 13:15 05/01/25 14:00 Temperature 101.6 F H Pulse Rate 103 H 105 H 98 Respiratory Rate 24 H 22 H 24 H Blood Pressure 166/76 H 186/63 H 176/65 H Pulse Oximetry 96 93 95 Oxygen Delivery Oxygen Flow Rate 05/01/25 15:00 05/01/25 16:26 05/01/25 16:28 Temperature Pulse Rate 102 H 98 99 Respiratory Rate 26 H 24 H 26 H Blood Pressure 181/58 H 173/61 H 164/64 H Pulse Oximetry 95 94 95 Oxygen Delivery Oxygen Flow Rate 05/01/25 17:00 05/01/25 17:11 05/01/25 20:00 Temperature 101.1 F H 98.1 F Pulse Rate 96 96 83 Respiratory Rate 28 H 28 H 17 Blood Pressure 168/55 H 162/97 H Pulse Oximetry 92 92 99 Oxygen Delivery Nasal Cannula Oxygen Flow Rate 4 05/01/25 20:00 05/01/25 20:00 05/01/25 22:00 Temperature Pulse Rate 101 H 91 Respiratory Rate Blood Pressure Pulse Oximetry 93 Oxygen Delivery High Flow Nasal Cannula Oxygen Flow Rate 6 05/01/25 22:11 05/01/25 22:12 05/01/25 22:18 Temperature Pulse Rate 91 91 92 Respiratory Rate 18 18 18 Blood Pressure Pulse Oximetry 93 Oxygen Delivery High Flow Nasal Cannula Oxygen Flow Rate 8 05/02/25 00:00 05/02/25 00:00 05/02/25 00:00 Temperature 98.1 F Pulse Rate 91 90 Respiratory Rate 17 Blood Pressure 152/60 H Pulse Oximetry 91 93 Oxygen Delivery High Flow Nasal Cannula Oxygen Flow Rate 8 05/02/25 00:13 05/02/25 01:10 05/02/25 07:29 Temperature 102.3 F H 99.5 F 99.3 F Pulse Rate 79 Respiratory Rate 20 Blood Pressure 114/50 L Pulse Oximetry 56 L Oxygen Delivery Oxygen Flow Rate Intake/Output Intake/Output: Intake & Output 04/29/25 04/30/25 05/01/25 05/02/25 23:59 23:59 23:59 23:59 Intake Total 270 33.9 Output Total 500 1100 Balance 230 -4686.1 Meds/Results Medications: Active Medications Generic Name Dose Route Start Last Admin Trade Name Freq PRN Reason Stop Dose Admin Acetaminophen 650 mg 05/01/25 15:35 05/02/25 00:13 Acetaminophen 325 Mg Tablet PO 650 mg Q4H PRN Administration Mild Pain (1-3) or Fever Atropine Sulfate 1 drop 05/02/25 02:08 Atropine Sulfate 1% Ophth Soln 5 Ml Bottle SUBLINGUAL Q4H PRN Secretions Lorazepam 1 mg 05/02/25 02:08 05/02/25 10:55 Lorazepam Inj (*Crx) 2 Mg/Ml Vial IV PUSH 1 mg Q2H PRN Administration Anxiety or air hunger Morphine Sulfate 2 mg 05/01/25 20:02 05/02/25 10:55 Morphine Sulfate (*Crx) 2 Mg/Ml Inj IV PUSH 2 mg Q2H PRN Administration Pain Rated 7-10 Ondansetron HCl 4 mg 05/01/25 15:35 Ondansetron Inj 4 Mg/2 Ml Vial IV PUSH Q4H PRN Nausea Radiology Results: ITS Impressions Chest X-Ray 05/01/25 11:18 Impression: 1: Cardiomegaly with worsening pulmonary edema. Chest/Abdomen/Pelvis CT 05/01/25 15:21 IMPRESSION: 1. Likely worsening congestive heart failure with cardiomegaly, increasing small bilateral pleural effusions and worsening moderate bilateral pulmonary edema. 2. Focal region of groundglass and reticular opacities which appears less patchy and which is more peripheral and localized with wedge-shaped pattern suggesting possibility of superimposed pneumonia or pulmonary infarction. 3. Cirrhosis with mild splenomegaly suggesting secondary portal venous hypertension. 4. Moderate amount of ascites which could be due to liver disease and/or congestive heart failure. 5. Moderate sigmoid diverticulosis. 6. Bladder wall thickening which could be due to partially decompressed state around the Mead catheter however there is also some stranding in the surrounding fat raising possibility of cystitis. Correlate with urinalysis. Labs Labs: Laboratory Results - last 24 hr 05/01/25 05/01/25 05/01/25 10:46 12:58 13:57 WBC 15.5 H RBC 3.47 L Hgb 9.7 L Hct 31.1 L MCV 89.6 MCH 28.0 MCHC 31.2 L RDW 16.6 H Plt Count 102 L MPV 10.9 H Immature Gran % (Auto) 0.6 H Neut % (Auto) 94.8 H Lymph % (Auto) 2.5 L [place] % (Auto) 2.0 L Eos % (Auto) 0.0 Baso % (Auto) 0.1 L Lymph # (Auto) 0.38 L [place] # (Auto) 0.3 Eos # (Auto) 0.0 Baso # (Auto) 0.0 Abs Immat Gran (auto) 0.09 H Absolute Neuts (auto) 14.7 H Absolute Nucleated RBC 0.040 H Nucleated RBC % 0.3 H APTT POC Capillary Glucose Lactic Acid 3.1 H Troponin I 12.500 H* NT-Pro-B Natriuret Pep > 00263 H Urine Color Yellow Urine Appearance Cloudy H Urine pH 7.5 Ur Specific [place] 1.018 Urine Protein 4+ H Urine Glucose (UA) Trace H Urine Ketones Trace H Ur Blood (Man) 2+ H Urine Nitrate Negative Urine Bilirubin Negative Urine Urobilinogen 1.0 Add Ur Microanalysis Reviewed Leukocyte Esterase Rfl 2+ H Urine RBC 21-50 H Urine WBC >100 H Ur Squamous Epith Cells None seen Urine Bacteria 2+ H Urine Casts 11-20 Nasal MRSA (PCR) Influenza A (RT-PCR) Influenza B (RT-PCR) RSV (RT-PCR) SARS-CoV-2 RNA (RT-PCR) 05/01/25 05/01/25 05/01/25 14:57 17:36 20:27 WBC RBC Hgb Hct MCV MCH MCHC RDW Plt Count MPV Immature Gran % (Auto) Neut % (Auto) Lymph % (Auto) [place] % (Auto) Eos % (Auto) Baso % (Auto) Lymph # (Auto) [place] # (Auto) Eos # (Auto) Baso # (Auto) Abs Immat Gran (auto) Absolute Neuts (auto) Absolute Nucleated RBC Nucleated RBC % APTT 30.7 POC Capillary Glucose Lactic Acid Troponin I 22.300 H* D NT-Pro-B Natriuret Pep Urine Color Urine Appearance Urine pH Ur Specific [place] Urine Protein Urine Glucose (UA) Urine Ketones Ur Blood (Man) Urine Nitrate Urine Bilirubin Urine Urobilinogen Add Ur Microanalysis Leukocyte Esterase Rfl Urine RBC Urine WBC Ur Squamous Epith Cells Urine Bacteria Urine Casts Nasal MRSA (PCR) Not detected Influenza A (RT-PCR) Negative Influenza B (RT-PCR) Negative RSV (RT-PCR) Negative SARS-CoV-2 RNA (RT-PCR) Negative 05/01/25 05/01/25 21:40 23:04 WBC RBC Hgb Hct MCV MCH MCHC RDW Plt Count MPV Immature Gran % (Auto) Neut % (Auto) Lymph % (Auto) [place] % (Auto) Eos % (Auto) Baso % (Auto) Lymph # (Auto) [place] # (Auto) Eos # (Auto) Baso # (Auto) Abs Immat Gran (auto) Absolute Neuts (auto) Absolute Nucleated RBC Nucleated RBC % APTT 33.8 POC Capillary Glucose 157 H Lactic Acid Troponin I NT-Pro-B Natriuret Pep Urine Color Urine Appearance Urine pH Ur Specific [place] Urine Protein Urine Glucose (UA) Urine Ketones Ur Blood (Man) Urine Nitrate Urine Bilirubin Urine Urobilinogen Add Ur Microanalysis Leukocyte Esterase Rfl Urine RBC Urine WBC Ur Squamous Epith Cells Urine Bacteria Urine Casts Nasal MRSA (PCR) Influenza A (RT-PCR) Influenza B (RT-PCR) RSV (RT-PCR) SARS-CoV-2 RNA (RT-PCR) Quality If No VTE Prophylaxis Answer both mechanical and pharmacologic: Reason no mechanical VTE proph: patient/caregiver refusal Reason no pharmacologic proph: patient/caregiver refusal
[2025-05-02 11:54] VITALS: BMI 22.6
--- NOTE | 2025-05-02 15:50 | P.DS_ITS ---
DS: Admitting Diagnosis Discharge Date 05/02/25 Admitting Diagnosis Shortness of breath DS: Discharge Diagnosis Discharge Diagnosis (1) Sepsis: Qualifiers: Sepsis type: sepsis due to unspecified organism Sepsis acute organ dysfunction status: with acute organ dysfunction Severe sepsis acute organ dysfunction type: acute respiratory failure Acute respiratory failure type: with hypoxia Severe sepsis shock status: without septic shock Qualified Code(s): A41.9 - Sepsis, unspecified organism; R65.20 - Severe sepsis without septic shock; J96.01 - Acute respiratory failure with hypoxia Code(s): A41.9 - Sepsis, unspecified organism Status: Acute (2) Acute respiratory failure with hypoxia: Code(s): J96.01 - Acute respiratory failure with hypoxia Status: Acute (3) Non-ST elevation OR (NSTEMI): Code(s): I21.4 - Non-ST elevation (NSTEMI) myocardial infarction Status: Acute (4) Acute on chronic diastolic heart failure: Code(s): I50.33 - Acute on chronic diastolic (congestive) heart failure Status: Acute (5) Pneumonia: Qualifiers: Laterality: unspecified laterality Lung location: unspecified part of lung Pneumonia type: due to unspecified organism Qualified Code(s): J18.9 - Pneumonia, unspecified organism Code(s): J18.9 - Pneumonia, unspecified organism Status: Acute (6) Cirrhosis of liver: Qualifiers: Ascites presence: with ascites Hepatic cirrhosis type: unspecified hepatic cirrhosis Qualified Code(s): K74.60 - Unspecified cirrhosis of liver; R18.8 - Other ascites Code(s): K74.60 - Unspecified cirrhosis of liver Status: Acute (7) Chronic kidney disease: Code(s): N18.9 - Chronic kidney disease, unspecified Status: Acute DS: Summary Hospital Course Reason for hospitalization: 79yo female with moderate aortic stenosis, dCHF, hx of hemorrhagic CVA, liver cirrhosis with EV, CKD 4, DM, COPD, bipolar disorder, depression /anxiety, HTN, and hypothyroidism here for SOB. Please see H&P for details. Hospital Course: Patient presented with shortness of breath and found to be febrile, tachypneic and mildly tachycardic. She had elevated lactic and WBC with stable creatinine at 2.2. Her UA was suggestive of possible UTI and CXR was suggestive of CHF exacerbation. Noncontrast CT Ch/A/P demonstrated worsening CHF and increasing small bilateral pleural effusions with moderate bilateral pulmonary edema, focal region of ground-glass and reticular opacity more peripheral and localized in which she pattern suggesting superimposed pneumonia, cirrhosis with splenomegaly moderate amount of ascites and bladder wall thickening due to decompression or possible cystitis. She had worsening transaminitis from baseline. Her initial troponin was 12 and her BMP was greater than 30,000. Patient was initially given dose of Rocephin and doxycycline in the ER. Blood cultures collected and patient was admitted. Since admission, the family decided to change her care to comfort measures only. All abx and other treatments stopped and were strictly focused on patient comfort. Her BCx are growing gram positive cocci. Patient is a DNR/DNI. Long discussion with son and family at bedside. I explained that the patient's condition is dire; other options discussed including abx use but ultimately the son decided to continue with comfort measures only. Hospice consulted and patient moved to hospice care. Status at Discharge Cognitive/behavioral status at discharge: critical Time Spent with Patient Time attestation: Total time spent providing and/or coordinating discharge services: 38 minutes Time spent: Greater than 30 minutes Exam Narrative: Tm 101.6 99.3 114/50 79 20 96% 8L Gen - thin, ill appearing female who is tachypneic HEENT - dried mucous membranes with crusting around her lips. Chest - increased RR Neuro - unresponsive. DS: Data Data Completed and Pending Labs on day of discharge: Labs from last 24 hours 05/01/25 05/01/25 05/01/25 23:04 21:40 20:27 APTT 33.8 POC Capillary Glucose 157 H Troponin I Nasal MRSA (PCR) Not detected 05/01/25 17:36 APTT 30.7 POC Capillary Glucose Troponin I 22.300 H* D Nasal MRSA (PCR) Preliminary micro results at discharge 05/01/25 13:53 Blood Culture - Preliminary Blood Gram positive cocci cluster is 05/01/25 13:53 Blood Culture - Preliminary Blood Gram positive cocci cluster is Discharge Plan Discharge Attending physician on discharge: Abner Washington Consulting providers: Ozzy Castro Discharging Clinician: Abner Washington Anticipated Discharge Date/Time: 05/02/25 15:54 Patient Disposition: Hospice - Medical Facility Activity: as tolerated Diet: as tolerated Discharge Instructions: Hospice consult Patient Instructions: Heart Failure (DC) Patient Language: Belarusian Stand Alone Forms: General Discharge Information Discharge Medications: Discontinued hydrocodone-acetaminophen 5-325 mg tablet 1 tablet PO Q4H PRN (Reason: Pain Rated 4-6) Qty: 180 0RF atorvastatin 40 mg tablet 40 mg PO HS Patient Comments: . cholecalciferol (vitamin D3) 1,250 mcg (50,000 unit) Tablet 1,250 mcg PO WEEKLY Rx Instructions: sundays Sarna Original 0.5-0.5 % Lotion 1 applic TOPICAL DAILY PRN (Reason: pruritis) Patient Comments: . clobetasol 0.05 % ointment 1 applic TOPICAL PRN PRN (Reason: pruritus) Rx Instructions: apply liberally, topical, as needed, mix with ketoconazole 2% and apply to mid upper back. PRN bid escitalopram oxalate 5 mg tablet 5 mg PO DAILY acetaminophen 500 mg tablet 1,000 mg PO BID PRN (Reason: Pain (Scale Score 1-3)) Patient Comments: ...... Rx Instructions: take 2 tablets by mouth twice daily as needed gabapentin 600 mg tablet 100 mg PO TID lamotrigine 150 mg tablet 100 mg PO Q12H pantoprazole 40 mg Tablet,Delayed Release (Dr/Ec) 40 mg PO Q12HR Qty: 60 0RF furosemide 20 mg tablet 20 mg PO DAILY lactulose 10 gram/15 mL solution 30 g PO QID PreserVision AREDS 4,296 mcg-226 mg-90 mg Capsule 1 cap PO DAILY isosorbide mononitrate 30 mg Tablet Extended Release 24 Hr 30 mg PO QAM 30 Days Qty: 30 1RF morphine concentrate 100 mg/5 mL (20 mg/mL) solution 5 mg PO Q6H PRN (Reason: pain) Belsomra 10 mg tablet 10 mg PO HS ferrous sulfate [Iron (ferrous sulfate)] 325 mg (65 mg iron) tablet 325 mg PO DAILY levothyroxine [Synthroid] 150 mcg Tablet 100 mcg PO DAILY amlodipine [Norvasc] 5 mg Tablet 5 mg PO DAILY 30 Days Qty: 30 1RF tamsulosin 0.4 mg Capsule 0.4 mg PO QAM 30 Days Qty: 30 0RF Anoro Ellipta 62.5-25 mcg/actuation blister with device 1 inh inhalation DAILY Qty: 60 2RF Rx Instructions: 1 puff by mouth daily Glucagon (HCl) Emergency Kit 1 mg recon soln 1 mg subcut Q20M PRN (Reason: Hypoglycemia) Rx Instructions: until target blood sugar attained hydroxyzine HCl 25 mg tablet 50 mg PO Q8H PRN (Reason: Itching) Date of admission: 05/01/25 15:35 Primary Care Provider: YayoMayo Admitting Provider: Catina Leon Attending physician on admission: Catina Leon Condition: Stable Hospitalist MIPS Heart Failure (Exclusion) Patient has history of Heart Transplant or Left Ventricular Assistive Device?: No IF YES, STOP HERE Heart Failure (Qualifier) Patient has current or prior documentation of LVEF less than or equal to 40%, or mod/servere depressed LVSF?: No IF NO, STOP HERE
== END 2025-05-02 15:56 | disposition hospice, inpatient (51) | DRG 871 ==
LOC: ANHED 10:21 → ANHIMU 16:37
PROVIDERS: Admitting Provider Internal Medicine; Emergency Provider Family Medicine; PCP Internal Medicine; Visit Provider Internal Medicine
DX: A41.9 Sepsis, unspecified organism (principal); I21.A1 Myocardial infarction type 2; I50.33 Acute on chronic diastolic (congestive) heart failure; J18.9 Pneumonia, unspecified organism; J96.21 Acute and chronic respiratory failure with hypoxia; R18.8 Other ascites; I13.0 Hypertensive heart and chronic kidney disease with heart failure and stage 1 through stage 4 chronic kidney disease, or unspecified chronic kidney disease; N18.4 Chronic kidney disease, stage 4 (severe); J44.0 Chronic obstructive pulmonary disease with (acute) lower respiratory infection; E11.22 Type 2 diabetes mellitus with diabetic chronic kidney disease; D64.9 Anemia, unspecified; K21.9 Gastro-esophageal reflux disease without esophagitis; R65.20 Severe sepsis without septic shock; E03.9 Hypothyroidism, unspecified; K74.60 Unspecified cirrhosis of liver; E78.5 Hyperlipidemia, unspecified; E11.42 Type 2 diabetes mellitus with diabetic polyneuropathy; I35.0 Nonrheumatic aortic (valve) stenosis; M81.0 Age-related osteoporosis without current pathological fracture; K75.81 Nonalcoholic steatohepatitis (NASH); F31.9 Bipolar disorder, unspecified; Z66 Do not resuscitate; Z86.73 Personal history of transient ischemic attack (TIA), and cerebral infarction without residual deficits; Z99.81 Dependence on supplemental oxygen; Z90.49 Acquired absence of other specified parts of digestive tract; Z98.49 Cataract extraction status, unspecified eye; Z90.711 Acquired absence of uterus with remaining cervical stump; Z87.891 Personal history of nicotine dependence; Z51.5 Encounter for palliative care
CPT/HCPCS: 36415; 36600; 71045; 71250; 74176; 80053; 81001; 82805; 82948; 83605; 83880; 84484; 85018; 85025; 85610; 85730; 87040; 87086; 87181; 87637; 87641; 93005; 96361; 96374; 96375; 99285; A9270; J0692; J0696; J1644; J1938; J2060; J2270; J3370; J7030

== ENCOUNTER 2025-05-02 15:57 | HOS | payer OTHER, MEDICARE, MEDICAID, SELFPAY ==
--- OUTSIDE RECORDS SUMMARY | 2025-05-02 16:12 | XMS_ITS | Encounter Summary ---
Author Organization [facility] Healthcare Address [address] [place] [address] Care Team Providers Care Glass Cutting Machine Feeder Name Role Phone Domingo Alcocer DO Primary Care Provider [phone] Encounter Details Date Type Department Care Team (Late st Contact Info) Description 05/02/[address] [facility] Medical Group Cardiology [address] [place] [address] Ozzy Castro MD [address] [place] [address] Social History Tobacco Use Types Packs/Day Years [...] on file Legal Sex Female 12:34 AM [employer] Gender Identity Not on file Sexual Orientation Not on file documented as of this encounter Plan of Treatment Not on file documented as of this encounter Procedures Procedure Name Priority Date/Time Associated Diagnosis Comments CARDIOLOGY DOCUMENT SCAN Routine 025 10:17 AM CDT documented in this encounter Results * Cardiology Document Scan (05/01/2025 10:17 AM CDT) Anatomical Region Laterality Modality Other Ozzy Castro MD [facility] CARDIAC SERVICES PROCEDURES F inal Result documented in this encounter Visit Diagnoses Not on filedocumented in this encounter Care Teams Glass Cutting Machine Feeder Relationship Specialty Start Date End Date Domingo Alcocer DO PCP - General Internal Medicine 11/10/18 documented as of this encounter
--- OUTSIDE RECORDS SUMMARY | 2025-05-02 16:12 | XMS_ITS | CONTINUITY OF CARE DOCUMENT ---
Author Name chloé luevano Address Unknown Organization [facility] Address [address] [place] [address] Phone [phone] Care Team Providers Care Ion Exchange Operator Name Role Phone Anthony Payne MD Unavailable ARELIS JOY DO Unavailable ARELIS JOY DO Unavailable [phone] INSURANCE PROVID[employer] Payer name Policy type / Coverage type [place] red [employer] ID [id number] MEDICARE Medicare [id number]
--- OUTSIDE RECORDS SUMMARY | 2025-05-02 16:12 | XMS_ITS | Clinical Summary ---
Author Organization [facility] Address [address] [place] [address] Care Team Providers Care Wash Driller Name Role Phone Domingo Alcocer DO Primary Care Provider +1- [phone] Allergies Active Allergy Reactions Criticality Noted Date [...] 2 (two) times a day 60 tablet 11 0 Active levothyroxine (SYNTHROID) 125 mcg tablet [...] mouth daily 30 tablet 11 0 Active acetaminophen (TYLENOL) 325 mg tabletIndicatio [...] (03/10/2019): Added automatically from request for surgery [id number] Diabetic peripheral neuropat hy associated with type 2 diabetes mellitus 09/14/2018 Backache 01/07/2018 Depressive disorder 01/07/2018 Type 2 diabetes mellitus wit h other diabetic kidney complication 08/23/2017 Essential (primary) hypertension 08/23/2017 Encounters Date Type Department Care Team Description 05/02/2025 Orders Only [facility] Medical Group Cardiology [address] [place] [id number] Ozzy Castro MD from Last 3 Months Surgical History Surgery Date Site/Laterality Comments SECTION [...] on file Legal Sex Female 12:34 AM MINIATURE MODEL MAKER Gender Identity Not on file Sexual Orientation Not on file Obstetrics History Last Filed Vital Signs Vital Sign Reading Time Taken Comments Blood Pressure 134/72 07/03/2021 8:10 AM CDT Pulse 67 07/03/2021 8:10 AM CDT Temperature 36.4 C (97.5 F) 01/19/2020 7:37 PM MINIATURE MODEL MAKER Respiratory Rate 24 01/19/2020 7:37 PM MINIATURE MODEL MAKER Oxygen Saturation 97% 07/03/2021 8:10 AM CDT Inhaled Oxygen Concentration - - Weight 64.4 kg (142 lb) 07/03/2021 8:10 AM CDT Height 149.9 cm (4' 11) 07/03/2021 8:10 AM CDT Body Mass Index 28.68 07/03/2021 8:10 AM CDT Plan of Treatment Not on file Procedures Procedure Name Priority Date/Time Associated Diagnosis Comments CARDIOLOGY DOCUMENT SCAN Routine 025 10:17 AM CDT from Last 3 Months Results * Cardiology Document Scan (05/01/2025 10:17 AM CDT) Anatomical Region Laterality Modality Other us Ozzy Castro MD CV CARDIAC SERVICES PROCEDURES F inal Result from Last 3 Months Insurance MEDICARE [facility] MEDICARE [address] [facility] MEDICARE RAILROAD Advance Directives For more information, please contact: [phone] Documents on File Type Date Recorded Patient Hr Assistant Expl anation ADVANCE DIRECTIVE 01/13/2020 8:40 AM POWER OF COMMERCIAL INSULATOR-MEDICAL ADVANCE DIRECTIVE 01/09/2020 1:00 AM POWER OF COMMERCIAL INSULATOR-MEDICAL * Full Code (Latest Code Status on [...] 10:01 AM 04/26/2019 10:01 AM Care Teams Wash Driller Relationship Specialty Start Date End Date Domingo Alcocer DO PCP - General Internal Medicine 11/10/18
--- OUTSIDE RECORDS SUMMARY | 2025-05-02 16:12 | XMS_ITS | Referral Summary ---
Author Organization [facility] Address [address] [place] [address] Care Team Providers Care Hospice Music Therapy Name Role Phone Domingo Alcocer DO Primary Care Provider +1- [phone] Encounters Date Type Department Care Team Description 05/02/2025 Orders Only [facility] Cardiology [address] [place] [phone] Ozzy Castro MD from Last 3 Months Allergies Active Allergy Reactions Criticality Noted Date [...] (03/10/2019): Added automatically from request for surgery [id number] Diabetic peripheral neuropat hy associated with type [...] on file Legal Sex Female 12:34 AM ANCILLARY SERVICES MANAGER Gender Identity Not on file Sexual Orientation Not on file Last Filed Vital Signs Vital Sign Reading Time Taken Comments Blood Pressure 134/72 07/03/2021 8:10 AM CDT Pulse 67 07/03/2021 8:10 AM CDT Temperature 36.4 C (97.5 F) 01/19/2020 7:37 PM ANCILLARY SERVICES MANAGER Respiratory Rate 24 01/19/2020 7:37 PM ANCILLARY SERVICES MANAGER Oxygen Saturation 97% 07/03/2021 8:10 AM CDT [...] Result from Last 3 Months Insurance MEDICARE [employer] [facility] MEDICARE [address] [address] MEDICARE RAILROAD Advance Directives For more information, please contact: [phone] Documents on File Type Date Recorded Patient Medical Office Technician Expl anation ADVANCE DIRECTIVE 01/13/2020 8:40 AM POWER OF HOTEL DINING ROOM CASHIER-MEDICAL ADVANCE DIRECTIVE 01/09/2020 1:00 AM POWER OF HOTEL DINING ROOM CASHIER-MEDICAL * Full Code (Latest Code Status on [...] 10:01 AM 04/26/2019 10:01 AM Care Teams Hospice Music Therapy Relationship Specialty Start Date End Date Domingo Alcocer DO PCP - General Internal Medicine 11/10/18
--- OUTSIDE RECORDS SUMMARY | 2025-05-02 16:12 | XMS_ITS | Continuity of Care Document ---
Author Organization [facility] Address [address] [place] [address] Phone Care Team Providers Care Client Customer Manager Name Role Phone [facility] Unavailable Unavail able Jason Quintanilla Unavailable Unavailable Procedures Procedure Date Miscellaneous Vision Service - Supplies BF Plastic Sphcyl [place] To +/-4d .12-2d Frames Deluxe Tax - Medical Eye Exam & Treatment Refraction No Script Office/outpatient Visit, Est No Script Eye Exam Established Pt No Script Visual Field Examination(s) Office/outpatient Visit, Est BF Plastic Sphcyl [place] To +/-4d .12-2d Frames Deluxe Anti-reflective Coating Stand In - Medical Eye Exam & Treatment Visual Functional Status Assessed Refraction Advance Directives Directive Yes / No Effective Date File Name No Information Encounters Encounter Description Practice Location Reason(s) For Visit Diagnoses Date Provider Providers Copied on Encounter [facility], [address], [place], [place], [address], [place] tel:[phone] [facility] No Information 0-201 0 [facility] . [address] [facility], [address], [place], [place], [address], [place]. tel:[phone] Referring Provider: Kaleb Langston OD A, [address], [place], [address]. tel:[phone] beach Provider: Jason Quintanilla, [facility], [place], [address]. tel:[phone] [facility], [address], [place], [place], [address], [place] tel:[phone] [facility] No Information 1-201 0 [facility] . [address] [facility], [address], [place], [place], [address], [place]. tel:[phone] Referring Provider: Kaleb Langston OD A, [address] [place], [place] [address]ate [address], [place], [address]. tel:[phone] beach Provider: Jason Quintanilla, [address] [place], [place] [address]ate [facility], [place], [address]. tel:[phone] [facility], [address] [place] [address] [address], [place], [place], [address], [place] tel:[phone] [facility] No Information 6-201 0 Langston OD Kaleb. [address] [place], [place] [address]ate Center , [address], [place], [address], [place]. tel:[phone] Office/outpat ient Visit, [facility], [address] [place] [address] [address], [place], [place], [address], [place] tel:[phone] [facility] No Information Mar-2 5-200 9 Langston OD Kaleb. [facility] , [address], [place], [address], [place]. tel:[phone] [facility], [address] [place] [address] [address], [place], [place], [address], [place] tel:[phone] [facility] No Information Mar-1 8-200 9 Langston OD Kaleb. [address] , [address], [place], [address], [place]. tel:[phone] [facility], [address] [place] [address] [address], [place], [place], [address], [place] tel:[phone] SEC [facility] No Information March-3 0-200 8 Italia Henderson. [address] [place] [address] , [address], [place], [address], [place]. tel:[phone] Referring Provider: Santiago Estevez, [address] [place] [address] [address], [place], [address]. tel:[phone] Office/outpat ient Visit, [facility], [address] [place] [address] [address], [place], [place], [address], [place] tel:[phone] SEC [facility] No Information March-2 9-200 8 Italia Henderson. [address] [place] [address] , [address], [place], [address], [place]. tel:[phone] [facility], [address] [place] [address] [address], [place], [place], [address], [place] tel:[phone] SEC [facility] No Information Oct-0 4-200 7 [facility] . [address] [facility], [address], [place], [place], [address], [place]. tel:[phone] Referring Provider: Santigao Estevez, [address] [place] [address] [address], [place], [address]. tel:[phone] sulting Provider: Jason Quintanilla, [address] [place], [place] [address] Ctr, [place], [address]. tel:[phone] [facility], [address] [place] [address] [address], [place], [place], [address], [place] tel:[phone] SEC [facility] No Information Sep-1 7-200 7 Italia Henderson. [address] [place] [address] , [address], [place], [address], [place]. tel:[phone] Family History Family Member Type Diagnosis Age At Onset No Information Payers Payer name Insurance type Covered democrat ID Authoriza tion(s) No Information Social History [...]
--- OUTSIDE RECORDS SUMMARY | 2025-05-02 16:13 | XMS_ITS | Encounter Summary ---
Author Organization [facility] Address [address] [facility] [place] [address] Care Team Providers Care Controls Project Engineer Name Role Phone NehemiahDomingo haney DO Primary Care Provider [phone]- [phone] Encounter Details Date Type Department Care Team (Late st Contact Info) Description 10/06/2024 Lab Requisition [facility] [address] [place] [address] Jesse Bruce MD [address] [place] [address] Social History Tobacco Use Types Packs/Day Years Used Date Smoking Tobacco: Every Day Smokeless Tobacco: Never Alcohol Use Standard Drinks/Week Comments No 0 (1 standard drink = 0.6 oz pur e alcohol) Comments Unknown Sex and Gender Information Value Date Recorded Sex Assigned at Not on file Legal Sex Female 6:46 AM DIRECTOR TECHNICAL Gender Identity Not on file Sexual Orientation Not on file documented as of this encounter Plan of Treatment Not on file documented as of this encounter Procedures Procedure Name Priority Date/Time Associated Diagnosis Comments AMMONIA STAT 10/06/2024 10:35 AM DIRECTOR TECHNICAL documented in this encounter Results * AMMONIA (10/06/2024 10:35 AM DIRECTOR TECHNICAL) Ammonia 54 18 - 72 umol/L 10/06/2024 10:53 AM DIRECTOR TECHNICAL [facility] Blood BLOOD SPECIMEN / Unknown Venipuncture / Unknown 10/06/2024 10:35 AM DIRECTOR TECHNICAL 10/06/2024 10:35 AM DIRECTOR TECHNICAL us Jesse Bruce MD LAB - CHEMISTRY ORDERABLES Fi nal Result Performing Organization Address City/State/[facility] Co de Phone Number [facility] [address] [place] [address] documented in this encounter Visit Diagnoses Not on filedocumented in this encounter Care Teams Controls Project Engineer Relationship Specialty Start Date End Date Domingo Alcocer DO PCP - General 09/03/22 documented as of this encounter
--- OUTSIDE RECORDS SUMMARY | 2025-05-02 16:13 | XMS_ITS | Encounter Summary ---
Author Organization [facility] Address [address] [place] [address] Care Team Providers Care American Sign Language Interpreter Name Role Phone Domingo Alcocer DO Primary Care Provider [phone] Encounter Details Date Type Department Care Team (Late st Contact Info) Description 09/22/2022 Lab Requisition [facility] Care Pathology Lab [address] [place] [address] Nir Alvarado MD [address] [place] [address] Illness, unspecified Social History Tobacco Use Types Packs/Day Years Used Date Smoking Tobacco: Every Day Smokeless Tobacco: Never Alcohol Use Standard Drinks/Week Comments No 0 (1 standard drink = 0.6 oz pur e alcohol) Comments Unknown Sex and Gender Information Value Date Recorded Sex Assigned at Not on file Legal Sex Female 6:46 AM PRODUCTION SUPPORT MANAGER Gender Identity Not on file Sexual [...] Report Bone Marrow Patholog y Report Case: [id number] Authorizing Provider: Nir Alvarado MD Collected: 09/16/2022 09:37 AM Ordering Location: [facility] Lab Received: 09/22/2022 11:11 AM Pathologist: Gi Castillo MD Specimen: Bone Marrow Core 09/23/2022 4:16 PM T [facility] Final Diagnosis Bone marrow, touch imprint, and core biopsy: - Slightly hypercellular core with maturing trilineage hematopoiesis and mild erythroid atypia. - Hemodilute touch imprints. 09/23/2022 4:16 PM T [facility] at 1616 CDT AP Comment Overall, the bone marrow specimen is slightly hypercellular for age with maturing trilineage hematopoiesis and no evidence of lymphoma or a high-grade myeloid neoplasm. Due to the limited nature of the touch imprints, adequate evaluation for dyspoiesis is limited. Correlation with clinical findings and relevant cytogenetic/molecular testing is recommended. 09/23/2022 4:16 PM T [facility] Peripheral Smear Description Not received. 09/23/2022 4:16 PM [facility] Bone Marrow Aspirate The smears are hemodilute, aspiculate, and paucicellular. Mostly peripheral blood elements. Storage iron (by special stain): not evaluable for iron storage due to lack of spicules. Sideroblastic iron (by special stain): not evaluable due to lack of erythroid precursors. 09/23/2022 4:16 PM T [facility] Bone Marrow Core Biopsy and [...] and T-cells, respectively. 09/23/2022 4:16 PM T [facility] Flow Cytometry Summary No flow performed. 09/23/2022 4:16 PM T [facility] Clinical History The patient is 76-year-old woman with PMH of HTN, CKD, liver cirrhosis, COPD, stroke, and anemia. 09/23/2022 4:16 PM T [facility] Materials Received Received are 13 slides and one block (A1) labeled [id number] along with a copy of the outside pathology report. The materials originate from [facility], [address] [place] [address] Route [facility], [place] [address]. All original materials are returned to the referring institution, along with a copy of our final report. 09/23/2022 4:16 PM T [facility] Disclaimer The performance characteristics of all immunohistochemical and indirect immunofluorescence stains (if any) cited in this report were determined by the Histopathology Laboratory of [facility]. Some of these tests were developed by [...] attending (teaching) pathologist. 09/23/2022 4:16 PM T [facility] Embedded Images 09/23/2022 4:16 PM T [facility] Pathology/Cytolo gy BONE MARROW SPECIMEN / Unknown 09/16/2022 9:37 AM CDT 09/22/2022 11:11 AM CDT Nir Alvarado MD LAB - PATHOLOGY/CYTOLOGY ORDERAB LES Final Result Performing Organization Address City/State/[facility] Co de Phone Number [facility] [address] [phone] documented in this encounter Visit Diagnoses Diagnosis Illness, unspecified documented in this encounter Care Teams American Sign Language Interpreter Relationship Specialty Start Date End Date Domingo Alcocer DO PCP - General 09/03/22 documented as of this encounter
--- OUTSIDE RECORDS SUMMARY | 2025-05-02 16:13 | XMS_ITS | Clinical Summary ---
Author Organization [facility] Address [address] [place] [address] Care Team Providers Care Commercial Real Estate Underwriter Name Role Phone Nehemiahmedina Domingo Guillermo DO Primary Care Provider +1- [phone] Source Comments [facility],non-owned Affiliates and Associated Physician Practices is amultiple site organization consisting of ambulatory clinics and hospital sitesin [place], [place], [place] and [place]. This disclosure is being madepursuant to the Care Everywhere program and may not contain all information available regarding this patient. Last updated 18.[facility] Allergies Active Allergy Reactions Criticality Noted Date [...] on file Legal Sex Female 6:46 AM SUBSTATION SUPERVISOR Gender Identity Not on file Sexual Orientation Not on file Last Filed Vital Signs Vital Sign Reading Time Taken Comments Blood Pressure 148/52 02/05/2017 1:55 PM SUBSTATION SUPERVISOR Pulse 87 02/05/2017 1:55 PM SUBSTATION SUPERVISOR Temperature 36.8 C (98.2 F) 02/05/2017 1:55 PM SUBSTATION SUPERVISOR Respiratory Rate 18 02/05/2017 1:55 PM SUBSTATION SUPERVISOR Oxygen Saturation 100% 02/05/2017 1:55 PM SUBSTATION SUPERVISOR Inhaled Oxygen Concentration - - Weight 74.5 kg (164 lb 3.2 oz) 02/05/2017 1:55 P M SUBSTATION SUPERVISOR Height 149.9 cm (4' 11) 02/05/2017 1:55 PM SUBSTATION SUPERVISOR Body Mass Index 33.16 02/05/2017 1:55 PM SUBSTATION SUPERVISOR Plan of Treatment Health Maintenance Due Date [...] this topic Insurance MEDICARE MEDICARE MEDICAID - [facility] * Guarantor: KAYE LYLES Account Type Relation to Patient Date of Phone Billing Address Personal/Family [address] [facility] [place] [address] MEDICARE [place]ID - [place] * Guarantor: KAYE LYLES Account Type Relation to Patient Date of Phone Billing Address Personal/Family [address] [place] [address] MEDICARE [place]ID - [place] * Guarantor: KAYE LYLES Account Type Relation to Patient Date of Phone Billing Address Personal/Family [address] [facility] [address] [place] [address] MEDICARE [place]ID - [place] Care Teams Commercial Real Estate Underwriter Relationship Specialty Start Date End Date Domingo Alcocer DO [facility] - General 09/03/22
[2025-05-02 18:00] VITALS: TEMP 38.3
[2025-05-02 18:28] VITALS: PULSE 108; RESP 22
[2025-05-02] MEDS: MORPHINE 50 MG/NS 100ML (*CRX) 50 MG/100 ML BAG IV CONT (18:28)
--- NOTE | 2025-05-02 18:56 | P.HP_ITS ---
H&P: HPI History of Present Illness Date/Time: 05/02/25 18:56 Chief Complaint: Uncontrolled dyspnea Narrative: 79yo female with moderate aortic stenosis, dCHF, hx of hemorrhagic CVA, liver cirrhosis, CKD 4, DM, COPD, bipolar disorder, depression with anxiety, HBP, and hypothyroidism to [facility] 05/01 due to dyspnea. She was found to have pneumonia with sepsis. Blood cultures were drawn and she was treated with broad-spectrum antibiotics. She continued to be dyspneic with the failure to improved. Because of her multiple comorbidities and quality of life her family opted for inpatient hospice care for control of symptoms. Review of Systems Review of Systems: ROS unobtainable: Yes unobtainable due to medical condition PMFSH Past Medical History Medical History Chronic anemia Gastritis History of infection due to ESBL Escherichia coli 2021 Cerebrovascular accident 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 Frequent falls 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 Diabetic peripheral neuropathy Aortic stenosis Moderate on echocardiogram in November 2021. Osteoporosis Arthritis Asthma Bipolar disorder Anxiety Depression Hypertension Hypothyroidism Surgical History Surgical History History of cataract extraction with lens replacement History of cholecystectomy History of tonsillectomy History of section History of colonoscopy with polypectomy Most recent colonoscopy 01/2019 demonstrated colon spasm and diverticulosis performed by Dr. Moreno History of thyroidectomy History of bladder surgery History of partial hysterectomy Family History Family History Sibling Multiple sclerosis Father Acute myocardial infarction, Onset Age: 79 Cerebrovascular accident, Onset Age: 79 Mother Dementia Sibling Acute myocardial infarction, Onset Age: 65 Son Diabetes mellitus Other Depression Family history of arthritis Family history of elevated blood lipids Family history of thyroid disease Hypertension Social History Social History Social History: Surrogate medical decision maker: Gavion Sigala (son). Code status: DNR/DNI Smoking packs per day: 1 Smoking cigarettes per day: 20.0 Years smoked: 50 Smoking pack-years: 50.00 Smoking status: Former smoker Second hand tobacco smoke exposure: No Alcohol intake: never Substance use: never Substance use type: does not use Do You Feel Safe in your Home?: Yes Lack of Transportation: No Lack of Food: Never True Current Housing: I Have Housing Concerned About Future Housing: No Difficulty Paying Gas/Electric Bills: No Difficulty Paying for Meds: No Currently Unemployed: No Education: Decline to Answer Difficulty w/ Childcare or Family Care: No Living arrangements: fdc Additional living arrangements comments: with 3 sons. Resident at [facility]. 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 Spiritual care concerns: No Meds Home Medications and Allergies Home Medications ?Medication ?Instructions ?Recorded ?Confirmed ?Type escitalopram oxalate 5 mg tablet 5 mg PO DAILY 08/21/21 05/02/25 History umeclidinium 62.5 mcg-vilanterol 1 inh inhalation DAILY #60 ea 10/15/21 05/02/25 Rx 25 mcg/actuation powdr for inhalation (Anoro Ellipta) glucagon HCl 1 mg solution for 1 mg subcut Q20M PRN Hypoglycemia 02/13/22 05/02/25 History injection (Glucagon (HCl) Emergency Kit) hydroxyzine HCl 25 mg tablet 50 mg PO Q8H PRN Itching 08/25/22 05/02/25 History acetaminophen 500 mg tablet 1,000 mg PO BID PRN Pain (Scale 09/14/22 05/02/25 History Score 1-3) atorvastatin 40 mg tablet 40 mg PO HS 01/22/23 05/02/25 History gabapentin 600 mg tablet 100 mg PO TID 01/22/23 05/02/25 History cholecalciferol (vitamin D3) 1,250 1,250 mcg PO WEEKLY 12/15/23 05/02/25 History mcg (50,000 unit) tablet lamotrigine 150 mg tablet 100 mg PO Q12H 05/17/24 05/02/25 History pantoprazole 40 mg tablet,delayed 40 mg PO Q12HR #60 tabs 05/21/24 05/02/25 Rx release hydrocodone 5 mg-acetaminophen 325 1 tablet PO Q4H PRN Pain Rated 4-6 06/08/24 05/02/25 Rx mg tablet #180 tabs furosemide 20 mg tablet 20 mg PO DAILY 08/16/24 05/02/25 History lactulose 10 gram/15 mL oral 30 g PO QID 08/16/24 05/02/25 History solution vitamins A,C,T-pulk-wcgsap 4,296 1 cap PO DAILY 08/16/24 05/02/25 History mcg-226 mg-90 mg capsule (PreserVision AREDS) isosorbide mononitrate 30 mg 30 mg PO QAM 30 days #30 tabs 08/18/24 05/02/25 Rx tablet,extended release 24 hr camphor-menthol 0.5 %-0.5 % lotion 1 applic topical DAILY PRN pruritis 08/22/24 05/02/25 History (Sarna Original) clobetasol 0.05 % topical ointment 1 applic topical PRN PRN pruritus 08/22/24 05/02/25 History morphine concentrate 100 mg/5 mL 5 mg PO Q6H PRN pain 11/09/24 05/02/25 History (20 mg/mL) oral solution ferrous sulfate 325 mg (65 mg 325 mg PO DAILY 04/26/25 05/02/25 History iron) tablet (Iron (ferrous sulfate)) levothyroxine 150 mcg tablet 100 mcg PO DAILY 04/26/25 05/02/25 History (Synthroid) suvorexant 10 mg tablet (Belsomra) 10 mg PO HS 04/26/25 05/02/25 History amlodipine 5 mg tablet (Norvasc) 5 mg PO DAILY 30 days #30 tabs 04/29/25 05/02/25 Rx tamsulosin 0.4 mg capsule 0.4 mg PO QAM 30 days #30 caps 04/29/25 05/02/25 Rx Allergies Allergy/AdvReac Type Severity Reaction Status Date / Time alendronate sodium Allergy Unknown Verified 04/26/25 20:25 amantadine Allergy Unknown Verified 04/26/25 20:25 benztropine Allergy Other Verified 04/26/25 20:25 chlorpromazine Allergy Unknown Verified 04/26/25 20:25 levofloxacin Allergy Unknown Verified 04/26/25 20:25 Macrolide Antibiotics Allergy Unknown Verified 04/26/25 20:25 mirtazapine Allergy Unknown Verified 04/26/25 20:25 Quinolones Allergy Unknown Verified 04/26/25 20:25 topiramate Allergy Unknown Verified 04/26/25 20:25 Vital Signs Vital Signs - 24 hr 05/02/25 18:00 05/02/25 18:28 Temperature 101.0 F H Pulse Rate 108 H Respiratory Rate 22 H Exam Narrative: HEENT: Pharyngeal mucosa pink, edentulous NECK: No JVD CHEST: Clear anteriorly with decreased breath sounds at lower lobes, normal effort HEART: NL S1/S2, regular, 3/6 systolic ejection murmur sternal border ABDOMEN: BS\hypoactive, soft, nontender, no mass, no bruits EXTREMITIES: No edema NEUROLOGIC: CN intact and symmetric to inspection. MUSCULOSKELETAL: No gross deformity to visual inspection PSYCH: Unresponsive to verbal or tactile stimuli Assessment and Plan Assessment and plan (1) Hospice care: Code(s): Z51.5 - Encounter for palliative care Status: Acute Assessment and Plan: * Meet inpatient hospice criteria due to require IV morphine for control of dyspnea * PRN palliative regimen ordered * 05/02/2024 Discussed care and prognosis with family at bedside (2) Acute respiratory failure with hypoxia: Code(s): J96.01 - Acute respiratory failure with hypoxia Status: Acute (3) Pneumonia: Code(s): J18.9 - Pneumonia, unspecified organism Status: Acute (4) Sepsis: Qualifiers: Sepsis type: sepsis due to unspecified organism Sepsis acute organ dysfunction status: with acute organ dysfunction Severe sepsis acute organ dysfunction type: acute respiratory failure Acute respiratory failure type: with hypoxia Severe sepsis shock status: without septic shock Qualified Code(s): A41.9 - Sepsis, unspecified organism; R65.20 - Severe sepsis without septic shock; J96.01 - Acute respiratory failure with hypoxia Code(s): A41.9 - Sepsis, unspecified organism Status: Acute (5) Chronic anemia: Code(s): D64.9 - Anemia, unspecified Status: Acute (6) Nonrheumatic aortic (valve) stenosis with insufficiency: Code(s): I35.2 - Nonrheumatic aortic (valve) stenosis with insufficiency Status: Acute (7) Non-ST elevation ND (NSTEMI): Code(s): I21.4 - Non-ST elevation (NSTEMI) myocardial infarction Status: Acute (8) Diabetes mellitus with chronic kidney disease: Code(s): E11.22 - Type 2 diabetes mellitus with diabetic chronic kidney disease Status: Acute (9) Cirrhosis of liver: Qualifiers: Ascites presence: with ascites Hepatic cirrhosis type: unspecified hepatic cirrhosis Qualified Code(s): K74.60 - Unspecified cirrhosis of liver; R18.8 - Other ascites Code(s): K74.60 - Unspecified cirrhosis of liver Status: Acute (10) Nonalcoholic steatohepatitis (ZIEGLER): Code(s): K75.81 - Nonalcoholic steatohepatitis (ZIEGLER) Status: Chronic (11) CKD (chronic kidney disease) stage 3, GFR 30-59 ml/min: Qualifiers: Chronic kidney disease stage 3 subtype: stage 3a (GFR 45-59) Qualified Code(s): N18.31 - Chronic kidney disease, stage 3a Code(s): N18.30 - Chronic kidney disease, stage 3 unspecified Status: Acute (12) Acute exacerbation of CHF (congestive heart failure): Code(s): I50.9 - Heart failure, unspecified Status: Acute
[2025-05-02 20:00] VITALS: BP 134/46; PULSE 84; RESP 26; TEMP 37.6; O2SAT 83
[2025-05-02 21:34] VITALS: BMI 24.0
[2025-05-03 08:00] VITALS: BP 162/64; PULSE 80; RESP 16; TEMP 37.3; O2SAT 64
--- NOTE | 2025-05-03 11:04 | P.PN_ITS ---
Progress Note: A&P Assessment and Plan (1) Hospice care: Code(s): Z51.5 - Encounter for palliative care Status: Acute Assessment and Plan: Pt unresponsive to all stimuli with no meaningful movement. Appearing c omfortable with no acute distress. Plan Continue current comfort medications as ordered. Use PRN meds, if necessary. Time Spent With Patient Time with patient: 15 - 25 minutes Subjective Date/time seen: 05/03/25 11:04 Interval history: Pt is a 79 year old female admitted to [facility] hospice for respiratory failure. Since admission, comfort meds started and patient has been unresponsive to all stimuli with no meaningful movement. She has not required any PRN comfort meds. Pt appearing comfortable with drooping nasolabial folds. Family at bedside and grieving appropriately. Review of Systems Review of Systems: ROS unobtainable: Yes unobtainable due to medical condition and unobtainable due to mental status Constitutional: Constitutional: Reports as per HPI Cardiovascular: Cardiovascular: Reports as per HPI Respiratory: Respiratory: Reports as per HPI Gastrointestinal: Gastrointestinal: Reports as per HPI Musculoskeletal: Musculoskeletal: Reports as per HPI Neurologic: Reports as per HPI Exam Const: General: comfortable and no acute distress Limitations: altered mental status Neck: Neck: normal visual inspection Chest: Chest palpation & inspection: normal inspection of the chest Resp: Effort & Inspection: normal respiratory effort Auscultation: clear to auscultation bilaterally Cardio: Rate: regular rate Rhythm: regular rhythm Heart sounds: S1 normal heart sound present and S2 normal heart sound present Peripheral pulses: Peripheral pulses 2+ throughout and radial pulses present GI: Inspection: normal to inspection GI Palp: Yes Soft to palpation Auscultation: normal bowel sounds Rectal Exam: deferred Skin: General skin exam: normal color Objective Data Vital Signs Vital Signs: Vital Signs - 24 hr 05/02/25 18:00 05/02/25 18:28 05/02/25 20:00 Temperature 38.3 C H Pulse Rate 108 H Respiratory Rate 22 H Blood Pressure Pulse Oximetry Oxygen Delivery Room Air 05/02/25 20:00 05/02/25 20:00 05/03/25 08:00 Temperature 37.6 C H 37.3 C Pulse Rate 84 84 80 Respiratory Rate 26 H 26 H 16 Blood Pressure 134/46 L 162/64 H Pulse Oximetry 83 L 64 L Oxygen Delivery 05/03/25 08:00 Temperature Pulse Rate Respiratory Rate Blood Pressure Pulse Oximetry Oxygen Delivery Room Air Intake/Output Intake/Output: Intake & Output 04/30/25 05/01/25 05/02/25 05/03/25 23:59 23:59 23:59 23:59 Intake Total 3.1 0 Output Total 250 400 Balance -246.9 -400 Meds/Results Medications: Active Medications Generic Name Dose Route Start Last Admin Trade Name Freq PRN Reason Stop Dose Admin Artificial Tears 1 - 2 drop 05/02/25 16:38 Artificial Tears Ophth Soln 15 Ml Bottle EACH EYE Q12H PRN Dry Eye(s) Bisacodyl 10 mg 05/02/25 16:44 Bisacodyl 10 Mg Suppository RECTAL QAM PRN Constipation Glycopyrrolate 0.1 mg 05/02/25 16:35 Glycopyrrolate Inj (*Sp) 0.2 Mg/Ml Vial IV PUSH Q4H PRN EXCESS secretions Morphine Sulfate 50 mg in 100 mls @ 2 mls/hr 05/02/25 16:35 05/02/25 20:00 IV CONT 1 mg/hr .Q24H PACO 2 mls/hr Infusion 1 MG/HR Lorazepam 1 mg 05/02/25 16:34 Lorazepam Inj (*Crx) 2 Mg/Ml Vial IV PUSH Q4H PRN Restless Miscellaneous Information 1 each 05/02/25 00:01 Prochlorperazine Ordered, Patient Lists Allergy To Chlorpromazine With Unkown Reaction. P XX 06/01/25 00:00 CLARIFY PACO Morphine Sulfate 2 mg 05/02/25 16:33 Morphine Sulfate (*Crx) 2 Mg/Ml Inj IV PUSH Q2H PRN pain/dyspnea
[2025-05-03] MEDS: MORPHINE 50 MG/NS 100ML (*CRX) 50 MG/100 ML BAG IV CONT (17:56)
--- NOTE | 2025-05-03 18:26 | PC.NURSE ---
On 05/03/25, the [employer]USER, Felisha Llamas, provided care and completed ? documentation on this patient. I have reviewed the [employer]'s documentation and agree with the findings.
[2025-05-03 20:00] VITALS: BP 152/59; PULSE 80; RESP 20; TEMP 37.3; O2SAT 62
[2025-05-04 08:00] VITALS: BP 180/71; PULSE 67; RESP 12; TEMP 36.6; O2SAT 90
[2025-05-04] MEDS: MORPHINE SULFATE (*CRX) 2 MG/ML INJ IV PUSH ×2 (11:42→15:38)
[2025-05-04] MEDS: GLYCOPYRROLATE INJ (*SP) 0.2 MG/ML VIAL 0.1 MG IV PUSH (11:43)
--- NOTE | 2025-05-04 13:09 | WPDPN ---
Progress Note: A&P Assessment and Plan (1) Hospice care: Code(s): Z51.5 - Encounter for palliative care Status: Acute Assessment and Plan: Pt bedbound. Unresponsive to all stimuli with no meaningful movement. Pt appearing comfortable on current gtts dose. She did require 1 PRN dose of morphine and robinul d/t restlessness and increased secretions. Family at bedside and grieving appropriately. Plan Pt continues to be approrpiate for [facility] r/t necessesity of IV comfort medications. Pt has received 1 PRN dose in 24 hours. Will continue current med regimen and f/u tomorrow. Time Spent With Patient Time with patient: 15 - 25 minutes Subjective Date/time seen: 05/04/25 13:09 Interval history: Pt is a 79 year old female admitted to [facility] for IV meds for comfort. She is bed bound. Unresponsive to all stimuli. She did briefly open eyes to touch but was quickly back to sleep. No meaningful movement. NPO for several days. Pt had some slight restlessness earlier that did require 1 PRN dose of morphine. Son states secretions have increased and PRN Robinul also given and effective. Review of Systems Review of Systems: ROS unobtainable: Yes unobtainable due to medical condition and unobtainable due to mental status Constitutional: Constitutional: Reports as per HPI Cardiovascular: Cardiovascular: Reports as per HPI Respiratory: Respiratory: Reports as per HPI Gastrointestinal: Gastrointestinal: Reports as per HPI Musculoskeletal: Musculoskeletal: Reports as per HPI Neurologic: Reports as per HPI Exam Const: General: comfortable and no acute distress Limitations: altered mental status Resp: Effort & Inspection: normal respiratory effort Auscultation: clear to auscultation bilaterally Cardio: Rhythm: regular rhythm Heart sounds: S1 normal heart sound present, S2 normal heart sound present and Murmur heart sound present GI: Inspection: normal to inspection GI Palp: Yes Soft to palpation Auscultation: normal bowel sounds Rectal Exam: deferred Skin: General skin exam: normal color Objective Data Vital Signs Vital Signs: Vital Signs - 24 hr 05/03/25 20:00 05/03/25 20:00 05/04/25 08:00 Temperature 37.3 C 36.6 C Pulse Rate 80 67 Respiratory Rate 20 12 Blood Pressure 152/59 H 180/71 H Pulse Oximetry 62 L 90 Oxygen Delivery Room Air 05/04/25 08:00 Temperature Pulse Rate Respiratory Rate Blood Pressure Pulse Oximetry Oxygen Delivery Room Air Intake/Output Intake/Output: Intake & Output 05/01/25 05/02/25 05/03/25 05/04/25 23:59 23:59 23:59 23:59 Intake Total 3.1 43.9 0 Output Total 250 700 500 Balance -246.9 -656.1 -500 Meds/Results Medications: Active Medications Generic Name Dose Route Start Last Admin Trade Name Freq PRN Reason Stop Dose Admin Artificial Tears 1 - 2 drop 05/02/25 16:38 Artificial Tears Ophth Soln 15 Ml Bottle EACH EYE Q12H PRN Dry Eye(s) Bisacodyl 10 mg 05/02/25 16:44 Bisacodyl 10 Mg Suppository RECTAL QAM PRN Constipation Glycopyrrolate 0.1 mg 05/02/25 16:35 05/04/25 11:43 Glycopyrrolate Inj (*Sp) 0.2 Mg/Ml Vial IV PUSH 0.1 mg Q4H PRN Administration EXCESS secretions Morphine Sulfate 50 mg in 100 mls @ 2 mls/hr 05/02/25 16:35 05/03/25 17:56 IV CONT 1 mg/hr .Q24H PACO 2 mls/hr Administration 1 MG/HR Lorazepam 1 mg 05/02/25 16:34 Lorazepam Inj (*Crx) 2 Mg/Ml Vial IV PUSH Q4H PRN Restless Miscellaneous Information 1 each 05/02/25 00:01 05/04/25 07:29 Prochlorperazine Ordered, Patient Lists Allergy To Chlorpromazine With Unkown Reaction. P XX 06/01/25 00:00 Not Given CLARIFY PACO Morphine Sulfate 2 mg 05/02/25 16:33 05/04/25 11:42 Morphine Sulfate (*Crx) 2 Mg/Ml Inj IV PUSH 2 mg Q2H PRN Administration pain/dyspnea Ondansetron HCl 4 mg 05/03/25 11:03 Ondansetron Inj 4 Mg/2 Ml Vial IV PUSH Q4H PRN Nausea And Vomiting
[2025-05-04] MEDS: LORazepam INJ (*CRX) 2 MG/ML VIAL 1 MG IV PUSH (15:39)
[2025-05-04 15:41] VITALS: PULSE 72; RESP 16
[2025-05-04] MEDS: MORPHINE 50 MG/NS 100ML (*CRX) 50 MG/100 ML BAG IV CONT (15:41)
[2025-05-04 21:44] VITALS: BP 181/70; PULSE 73; RESP 16; TEMP 36.9; O2SAT 100
[2025-05-05 08:00] VITALS: BP 177/54; PULSE 69; RESP 12; TEMP 36.3; O2SAT 92
--- NOTE | 2025-05-05 10:33 | P.PN_ITS ---
Progress Note: A&P Assessment and Plan (1) Hospice care: Code(s): Z51.5 - Encounter for palliative care Status: Acute Assessment and Plan: Increased morphine gtts d/t frequent PRN dosing. Pt has received 2 PRN doses of morphine, 1 PRN dose of Ativan. Will increase to 2 mg/h. Pt continues to be appropriate for [facility] hospice d/t frequent titration of comfort meds r/t her comfort and increased restlessness. Time Spent With Patient Time with patient: 15 - 25 minutes Subjective Date/time seen: 05/05/25 10:33 Interval history: 79 yo female admitted to [facility] hospice care for IV comfort r/t pain and restlessness. Pt is increasingly responsive today. Restlessness noted. Son at bedside and noted increased restlessness last night as well that required a PRN dose of morphine. No meaningful movement, but son states pt was raising arms and hands into the air yesterday and said that it appeared the pt was looking uncomfortable. NPO for 5 days. Audible grunting with respirations. Review of Systems Review of Systems: ROS unobtainable: Yes unobtainable due to medical condition and unobtainable due to mental status Constitutional: Constitutional: Reports as per HPI Cardiovascular: Cardiovascular: Reports as per HPI Respiratory: Respiratory: Reports as per HPI Gastrointestinal: Gastrointestinal: Reports as per HPI Musculoskeletal: Musculoskeletal: Reports as per HPI Neurologic: Reports as per HPI Exam Const: General: comfortable and no acute distress Limitations: altered mental status Resp: Effort & Inspection: normal respiratory effort Auscultation: clear to auscultation bilaterally Cardio: Rhythm: abnormal rhythm (three beats, then pause) Heart sounds: S1 normal heart sound present, S2 normal heart sound present and Murmur heart sound present GI: Inspection: normal to inspection GI Palp: Yes Soft to palpation Auscultation: normal bowel sounds Rectal Exam: deferred Skin: General skin exam: normal color Objective Data Vital Signs Vital Signs: Vital Signs - 24 hr 05/04/25 15:41 05/04/25 15:41 05/04/25 20:00 Temperature Pulse Rate 72 72 Respiratory Rate 16 16 Blood Pressure Pulse Oximetry Oxygen Delivery Room Air 05/04/25 21:44 05/05/25 08:00 05/05/25 08:15 Temperature 36.9 C 36.3 C L Pulse Rate 73 69 Respiratory Rate 16 12 Blood Pressure 181/70 H 177/54 H Pulse Oximetry 100 92 Oxygen Delivery Room Air Intake/Output Intake/Output: Intake & Output 05/02/25 05/03/25 05/04/25 05/05/25 23:59 23:59 23:59 23:59 Intake Total 3.1 43.9 43.5 50 Output Total 250 700 550 700 Balance -246.9 -656.1 -506.5 -650 Meds/Results Medications: Active Medications Generic Name Dose Route Start Last Admin Trade Name Freq PRN Reason Stop Dose Admin Artificial Tears 1 - 2 drop 05/02/25 16:38 Artificial Tears Ophth Soln 15 Ml Bottle EACH EYE Q12H PRN Dry Eye(s) Bisacodyl 10 mg 05/02/25 16:44 Bisacodyl 10 Mg Suppository RECTAL QAM PRN Constipation Glycopyrrolate 0.1 mg 05/02/25 16:35 05/04/25 11:43 Glycopyrrolate Inj (*Sp) 0.2 Mg/Ml Vial IV PUSH 0.1 mg Q4H PRN Administration EXCESS secretions Morphine Sulfate 50 mg in 100 mls @ 2 mls/hr 05/02/25 16:35 05/04/25 15:41 IV CONT 1 mg/hr .Q24H PACO 2 mls/hr Administration 1 MG/HR Lorazepam 1 mg 05/02/25 16:34 05/04/25 15:39 Lorazepam Inj (*Crx) 2 Mg/Ml Vial IV PUSH 1 mg Q4H PRN Administration Restless Miscellaneous Information 1 each 05/02/25 00:01 05/04/25 17:14 Prochlorperazine Ordered, Patient Lists Allergy To Chlorpromazine With Unkown Reaction. P XX 06/01/25 00:00 Not Given CLARIFY PACO Morphine Sulfate 2 mg 05/02/25 16:33 05/04/25 15:38 Morphine Sulfate (*Crx) 2 Mg/Ml Inj IV PUSH 2 mg Q2H PRN Administration pain/dyspnea Ondansetron HCl 4 mg 05/03/25 11:03 Ondansetron Inj 4 Mg/2 Ml Vial IV PUSH Q4H PRN Nausea And Vomiting
[2025-05-05] MEDS: MORPHINE SULFATE (*CRX) 2 MG/ML INJ IV PUSH ×2 (10:36→15:40)
[2025-05-05] MEDS: LORazepam INJ (*CRX) 2 MG/ML VIAL 1 MG IV PUSH ×2 (10:37→15:41)
[2025-05-05] MEDS: MORPHINE 50 MG/NS 100ML (*CRX) 50 MG/100 ML BAG IV CONT ×2 (15:22→15:25)
[2025-05-05 15:25] VITALS: PULSE 52
[2025-05-05 19:43] VITALS: PULSE 70; RESP 20; O2SAT 91
[2025-05-05 20:32] VITALS: BP 147/49; PULSE 58; RESP 16; TEMP 37.1; O2SAT 94
--- NOTE | 2025-05-06 07:19 | P.PN_ITS ---
Progress Note: A&P Assessment and Plan (1) Hospice care: Code(s): Z51.5 - Encounter for palliative care Status: Acute Assessment and Plan: Increased morphine gtts d/t frequent PRN dosing. Pt has received 1 PRN doses of morphine, 1 PRN dose of Ativan. Will increase to 4 mg/h. Pt continues to be appropriate for [facility] hospice d/t frequent titration of comfort meds r/t her comfort and increased restlessness. Time Spent With Patient Time with patient: 15 - 25 minutes Subjective Date/time seen: 05/06/25 07:19 Interval history: Pt is a 79 yo female admitted to [facility] hospice for IV med administration for IV comfort. Pt continues to be slightly responsive and restless to voice and light touch. Family continues to state that when she is more responsive that it appears she is slightly uncomfortable. Another PRN dose of morphine and ativan was given yesterday afternoon with good results. Review of Systems Review of Systems: ROS unobtainable: Yes unobtainable due to medical condition and unobtainable due to mental status Constitutional: Constitutional: Reports as per HPI Cardiovascular: Cardiovascular: Reports as per HPI Respiratory: Respiratory: Reports as per HPI Gastrointestinal: Gastrointestinal: Reports as per HPI Musculoskeletal: Musculoskeletal: Reports as per HPI Neurologic: Reports as per HPI Exam Const: General: comfortable and no acute distress Limitations: altered mental status Other: restless to voice and light touch Resp: Effort & Inspection: normal respiratory effort Auscultation: clear to auscultation bilaterally Cardio: Heart sounds: S1 normal heart sound present, S2 normal heart sound present and Murmur heart sound present GI: Inspection: normal to inspection GI Palp: Yes Soft to palpation Auscultation: normal bowel sounds Rectal Exam: deferred Urinary Catheter: Urinary Catheter: patent and draining and urine cloudy Skin: General skin exam: normal color Neuro: Cognition (Neuro): abnormal cognition (unresponsive) Other: Extrem: General: normal to inspection Objective Data Vital Signs Vital Signs: Vital Signs - 24 hr 05/05/25 08:00 05/05/25 08:15 05/05/25 15:25 Temperature 36.3 C L Pulse Rate 69 52 L Respiratory Rate 12 Blood Pressure 177/54 H Pulse Oximetry 92 Oxygen Delivery Room Air Fraction of Inspired Oxygen 05/05/25 15:25 05/05/25 19:43 05/05/25 20:00 Temperature Pulse Rate 52 L 70 Respiratory Rate 20 Blood Pressure Pulse Oximetry 91 Oxygen Delivery Room Air Room Air Fraction of Inspired Oxygen 21 05/05/25 20:32 Temperature 37.1 C Pulse Rate 58 L Respiratory Rate 16 Blood Pressure 147/49 H Pulse Oximetry 94 Oxygen Delivery Fraction of Inspired Oxygen Intake/Output Intake/Output: Intake & Output 05/03/25 05/04/25 05/05/25 05/06/25 23:59 23:59 23:59 23:59 Intake Total 43.9 43.5 50.2 Output Total 339 556 4769 325 Balance -656.1 -506.5 -1049.8 -325 Meds/Results Medications: Active Medications Generic Name Dose Route Start Last Admin Trade Name Freq PRN Reason Stop Dose Admin Artificial Tears 1 - 2 drop 05/02/25 16:38 Artificial Tears Ophth Soln 15 Ml Bottle EACH EYE Q12H PRN Dry Eye(s) Bisacodyl 10 mg 05/02/25 16:44 Bisacodyl 10 Mg Suppository RECTAL QAM PRN Constipation Glycopyrrolate 0.1 mg 05/02/25 16:35 05/04/25 11:43 Glycopyrrolate Inj (*Sp) 0.2 Mg/Ml Vial IV PUSH 0.1 mg Q4H PRN Administration EXCESS secretions Morphine Sulfate 50 mg in 100 mls @ 4 mls/hr 05/05/25 10:45 05/05/25 15:25 IV CONT 2 mg/hr .Q24H PACO 4 mls/hr Administration 2 MG/HR Lorazepam 1 mg 05/02/25 16:34 05/05/25 15:41 Lorazepam Inj (*Crx) 2 Mg/Ml Vial IV PUSH 1 mg Q4H PRN Administration Restless Morphine Sulfate 2 mg 05/02/25 16:33 05/05/25 15:40 Morphine Sulfate (*Crx) 2 Mg/Ml Inj IV PUSH 2 mg Q2H PRN Administration pain/dyspnea Ondansetron HCl 4 mg 05/03/25 11:03 Ondansetron Inj 4 Mg/2 Ml Vial IV PUSH Q4H PRN Nausea And Vomiting
[2025-05-06] MEDS: MORPHINE SULFATE (*CRX) 4 MG/ML INJ IV PUSH ×2 (07:54→17:05)
[2025-05-06 08:00] VITALS: BP 134/57; PULSE 73; RESP 20; TEMP 36.3; O2SAT 92
[2025-05-06] MEDS: MORPHINE 50 MG/NS 100ML (*CRX) 50 MG/100 ML BAG 8 MG IV CONT ×2 (11:49→23:37)
[2025-05-06] MEDS: LORazepam INJ (*CRX) 2 MG/ML VIAL 1 MG IV PUSH (20:10)
[2025-05-07 01:48] VITALS: BP 172/34; PULSE 77; RESP 12; TEMP 37.5; O2SAT 77
--- NOTE | 2025-05-07 06:25 | P.PN_ITS ---
Progress Note: A&P Assessment and Plan (1) Hospice care: Code(s): Z51.5 - Encounter for palliative care Status: Acute Assessment and Plan: Increased morphine gtts d/t labored breating. Will increase to 8 mg/h. Per son, pt has taken narcotics and illicit drugs for several years. This could be leading to increased tolerance to IV opioid therapy while in the hospital. Pt continues to be appropriate for [facility] hospice d/t frequent titration of comfort meds r/t her comfort and increased restlessness. Time Spent With Patient Time with patient: 15 - 25 minutes Subjective Date/time seen: 05/07/25 06:25 Interval history: Pt is a 79 yo female admitted to [facility] hospice for IV med administration for IV comfort. Pt less responsive today but breathing appearing to be labored with increased RR. Otherwise, pt is unresponsive to all stimuli with no meaningful movement. NPO x1 wk. UOP approx 100 ml in 24 hr period. Review of Systems Review of Systems: ROS unobtainable: Yes unobtainable due to medical condition and unobtainable due to mental status Constitutional: Constitutional: Reports as per HPI Cardiovascular: Cardiovascular: Reports as per HPI Respiratory: Respiratory: Reports as per HPI Gastrointestinal: Gastrointestinal: Reports as per HPI Musculoskeletal: Musculoskeletal: Reports as per HPI Neurologic: Reports as per HPI Exam Const: General: uncomfortable Limitations: altered mental status Other: Resp: Effort & Inspection: labored Auscultation: clear to auscultation bilaterally Cardio: Rate: tachycardic Heart sounds: S1 normal heart sound present, S2 normal heart sound present and Murmur heart sound present GI: Inspection: normal to inspection GI Palp: Yes Soft to palpation Auscultation: normal bowel sounds Rectal Exam: deferred Urinary Catheter: Urinary Catheter: patent and draining and urine cloudy Skin: General skin exam: normal color Neuro: Cognition (Neuro): abnormal cognition (unresponsive) Other: Extrem: General: normal to inspection Objective Data Vital Signs Vital Signs: Vital Signs - 24 hr 05/06/25 07:30 05/06/25 08:00 05/06/25 20:00 Temperature 36.3 C L Pulse Rate 73 Respiratory Rate 20 Blood Pressure 134/57 L Pulse Oximetry 92 Oxygen Delivery Room Air Room Air 05/07/25 01:48 Temperature 37.5 C Pulse Rate 77 Respiratory Rate 12 Blood Pressure 172/34 H Pulse Oximetry 77 L Oxygen Delivery Intake/Output Intake/Output: Intake & Output 05/04/25 05/05/25 05/06/25 05/07/25 23:59 23:59 23:59 23:59 Intake Total 43.5 50.2 191.4 Output Total 550 1100 675 Balance -506.5 -1049.8 -483.6 Meds/Results Medications: Active Medications Generic Name Dose Route Start Last Admin Trade Name Freq PRN Reason Stop Dose Admin Artificial Tears 1 - 2 drop 05/02/25 16:38 Artificial Tears Ophth Soln 15 Ml Bottle EACH EYE Q12H PRN Dry Eye(s) Bisacodyl 10 mg 05/02/25 16:44 Bisacodyl 10 Mg Suppository RECTAL QAM PRN Constipation Glycopyrrolate 0.1 mg 05/02/25 16:35 05/04/25 11:43 Glycopyrrolate Inj (*Sp) 0.2 Mg/Ml Vial IV PUSH 0.1 mg Q4H PRN Administration EXCESS secretions Morphine Sulfate 4 mg 05/06/25 07:24 05/06/25 17:05 Morphine Sulfate (*Crx) 4 Mg/Ml Inj IV PUSH 4 mg Q4H PRN Administration Pain Rated 7-10 Ondansetron HCl 4 mg 05/03/25 11:03 Ondansetron Inj 4 Mg/2 Ml Vial IV PUSH Q4H PRN Nausea And Vomiting
[2025-05-07] MEDS: MORPHINE 50 MG/NS 100ML (*CRX) 50 MG/100 ML BAG 16 MG IV CONT ×3 (07:20→15:28)
[2025-05-07 08:00] VITALS: BP 138/55; PULSE 96; RESP 22; TEMP 36.5; O2SAT 65
[2025-05-07] MEDS: LORazepam INJ (*CRX) 2 MG/ML VIAL IV PUSH ×2 (13:45→16:42)
--- NOTE | 2025-05-29 10:31 | PM.DDS ---
Discharge Summary Date and Time Date of : 05/07/25 Time of : 17:20 Provider Pronounced By: 2 RNs Name of First RN That Pronounced: Katelyn Santiago RN Name of Second RN That Pronounced: Vidhi Garcia RN Probable Cause of Probable Cause of : sepsis Summary Hospital Course: [facility] [address] [place] [address] History & Physical Report Signed Patient: Nisha Sigala MR#: [id number] : 1945 Acct:[id number] Age: 79 ADM Date: 05/02/25 Loc: [facility] [id number]: Cristian Hillman M.D. 79yo female with moderate aortic stenosis, dCHF, hx of hemorrhagic CVA, liver cirrhosis, CKD 4, DM, COPD, bipolar disorder, depression with anxiety, HBP, and hypothyroidism to [facility] 05/01 due to dyspnea. She was found to have pneumonia with sepsis. Blood cultures were drawn and she was treated with broad-spectrum antibiotics. She continued to be dyspneic with the failure to improved. Because of her multiple comorbidities and quality of life her family opted for inpatient hospice care for control of symptoms. Additional Data Confirmation of as documented by pronouncing clinician: Pupillary Reflex, Palpable Pulses, Response to Stimuli, Heart Tones and Breath Sounds Name of Provider Notified: Dr. Bowie Time Provider Notified: 18:02 Provider Requests Autopsy: No Family Requests Autopsy: No Second Helper Notified: Yes Date [facility] Notified of : 05/07/25 Time [facility] Notified of : 17:35
== END 2025-05-07 17:20 | disposition expired | DRG 951 ==
LOC: ANHIMU 05-10 10:56 → ANH3MEDSUR 05-10 10:56
PROVIDERS: Admitting Provider Internal Medicine; PCP Internal Medicine; Visit Provider Internal Medicine Adolescent Medicine
DX: Z51.5 Encounter for palliative care (principal); A41.9 Sepsis, unspecified organism; J18.9 Pneumonia, unspecified organism; J96.01 Acute respiratory failure with hypoxia; R65.20 Severe sepsis without septic shock; I13.0 Hypertensive heart and chronic kidney disease with heart failure and stage 1 through stage 4 chronic kidney disease, or unspecified chronic kidney disease; N18.4 Chronic kidney disease, stage 4 (severe); I50.32 Chronic diastolic (congestive) heart failure; J44.0 Chronic obstructive pulmonary disease with (acute) lower respiratory infection; D63.1 Anemia in chronic kidney disease; E11.22 Type 2 diabetes mellitus with diabetic chronic kidney disease; I25.2 Old myocardial infarction; I35.2 Nonrheumatic aortic (valve) stenosis with insufficiency; I35.0 Nonrheumatic aortic (valve) stenosis; Z86.73 Personal history of transient ischemic attack (TIA), and cerebral infarction without residual deficits; Z66 Do not resuscitate; Z87.891 Personal history of nicotine dependence
CPT/HCPCS: A9270; J1596; J2060; J2270